=== PATIENT | male | born 1965 | race Caucasian/White ===

== ENCOUNTER 2020-05-10 13:14 | Outpatient (REF) | payer MEDICAID, SELFPAY | END 2020-05-10 13:15 | disposition home or self-care (01) | LOC: HO.LAB 13:14 | PROVIDERS: PCP Internal Medicine; Visit Provider Internal Medicine | DX: Z20.828 Contact with and (suspected) exposure to other viral communicable diseases (principal) | CPT/HCPCS: U0003 ==

== ENCOUNTER 2020-05-16 09:48 | Outpatient (REF) | payer MEDICAID, SELFPAY | END 2020-05-16 09:49 | disposition home or self-care (01) | LOC: HO.LAB 09:48 | PROVIDERS: Visit Provider Internal Medicine | DX: Z20.828 Contact with and (suspected) exposure to other viral communicable diseases (principal) | CPT/HCPCS: C9803; U0003 ==

== ENCOUNTER 2020-05-23 09:03 | Outpatient (REF) | payer MEDICAID, SELFPAY | END 2020-05-23 09:04 | disposition home or self-care (01) | LOC: HO.LAB 09:03 | PROVIDERS: Visit Provider Internal Medicine | DX: Z20.828 Contact with and (suspected) exposure to other viral communicable diseases (principal) | CPT/HCPCS: C9803; U0003 ==

== ENCOUNTER 2020-06-13 15:18 | Outpatient (REF) | payer MEDICAID, SELFPAY | END 2020-06-13 15:19 | disposition home or self-care (01) | LOC: HO.LAB 15:18 | PROVIDERS: Visit Provider Internal Medicine | DX: Z20.828 Contact with and (suspected) exposure to other viral communicable diseases (principal) | CPT/HCPCS: C9803; U0003 ==

== ENCOUNTER 2020-07-16 12:13 | Outpatient (REF) | payer MEDICAID, SELFPAY | END 2020-07-16 12:14 | disposition home or self-care (01) | LOC: HO.LAB 12:13 | PROVIDERS: Visit Provider Internal Medicine | DX: Z20.828 Contact with and (suspected) exposure to other viral communicable diseases (principal) | CPT/HCPCS: 36415; C9803; U0003 ==

== ENCOUNTER 2020-09-24 20:03 | Emergency (ER) | payer MEDICAID, SELFPAY ==
--- NOTE | ~2020-09-24 | XR_ITS ---
EXAMINATION: XR CHEST CLINICAL INFORMATION: Possible aspiration COMPARISON: Chest radiograph 11/28/2012 TECHNIQUE: Frontal view of the chest was obtained. FINDINGS: The lungs are hypoinflated since the prior study. Heart size appears mildly enlarged and currently whereas previously it was normal. There is no evidence of CHF. Multiple old rib fractures on the right are again seen, 6 with fixation. No infiltrates, effusions or lung masses are seen hardware. XR/XR chest 1V IMPRESSION: Hypoinflated lungs with mildly enlarged heart. No evidence of aspiration.
--- NOTE | ~2020-09-24 | CT_ITS ---
EXAMINATION: CT HEAD WITHOUT CONTRAST CLINICAL INFORMATION: Unresponsive COMPARISON: None TECHNIQUE: Contiguous axial imaging was performed from the skull base to vertex without intravenous administration of contrast. Exam is limited due to motion. This CT examination was performed using dose optimization techniques as appropriate, variously including the following: *Automated exposure control *Adjustment of mA and/or kV according to patient size (this includes techniques or standardized protocols for targeted exams where dose is matched to indication/reason for exam; i.e. extremities or head) *Use of iterative reconstruction technique DLP: 873 mGy-cm FINDINGS: There is no evidence of an extra-axial collection. There is no evidence for intra-axial or extra-axial hemorrhage. There is a a round high attenuation extra-axial lesion adjacent to the left frontal lobe near the sylvian fissure. This measures approximately 1.3 x 1.8 cm. This may have small foci of calcification. This probably represents a small meningioma. No mass effect is seen. The ventricles and extra-axial CSF spaces are appropriate. Gaines-white matter differentiation is normal. No intra-axial mass, mass effect or infarct is seen. Review at bone windows is normal. No skull fracture is seen. There are inflammatory changes seen in the right maxillary sinus with a membranous soft tissue thickening. Paranasal sinuses and mastoid air cells and middle ears are otherwise clear. CT/CT head/brain wo con IMPRESSION: No acute findings. 1.3 x 1.8 cm high attenuation extra-axial mass in the left sylvian fissure adjacent to the frontal lobe probably representing a meningioma. Right maxillary sinus disease.
[2020-09-24 20:13] VITALS: BP 125/70; PULSE 85; RESP 16; TEMP 36.7; O2SAT 98; BMI 28.2
--- NOTE | 2020-09-24 20:36 | PC.NURSE ---
pt appears to have vomited. repositioned to sitting rt lateral. capnography applied. pt cleared own airway. aware. monitoring
--- NOTE | 2020-09-24 20:42 | PC.NURSE ---
pt placed on 3 l to support oxygenation. rr 12 at ths time.
[2020-09-24 21:11] VITALS: BP 140/79; PULSE 79; RESP 22; TEMP 36.7; O2SAT 98
--- NOTE | 2020-09-24 21:17 | ED_ITS ---
HPI - Overdose General Chief Complaint: ETOH/Substance Use Stated Complaint: ETOH,OVERDOSE,NARCAN GIVEN Time Seen by Provider: 09/24/20 20:12 Source: EMS Mode of arrival: EMS Limitations: altered mental status History of Present Illness HPI Narrative: Patient comes to the emergency room via EMS. Patient was found at his shelter in his bed unresponsive around 19:00. Members of the shelter reported that the patient was seen normal around 18:00, he was in the shelter's porch, then walked into his room. The staff reports that the patient has history of alcohol abuse and polysubstance abuse as well. When EMS arrived to the shelter, patient was unresponsive, he was given 2 mg of intranasal Narcan with minimal response, 2 additional mg were applied intranasally, patient had moderate response but went back to sleep. Patient response to sternal rub only. On arrival to the emergency room, patient was still very somnolent, sneezing, coughing and vomiting. Related Data Allergies Allergy/AdvReac Type Severity Reaction Status Date / Time bee pollen [BEE STINGS] Allergy Severe SWELLING Unverified 03/28/20 15:04 Review of Systems Review of Systems: Yes Unobtainable due to mental status PMFSH Past Medical History Medical History EtOH dependence Hypertension Substance abuse Social History Social History Advance Directives: No Physical Exam Vital Signs: Vital Signs: Last Vital Signs Temp 98.1 F 09/24/20 21:11 Pulse 79 09/24/20 21:11 Resp 16 09/25/20 00:00 BP 140/79 H 09/24/20 21:11 Pulse Ox 98 09/24/20 21:11 Body Mass Index 28.2 Appearance: Somnolent, arousable to sternal rub, occasionally wakes up to cough and sneeze Eyes: Pupils equal, round and reactive to light. At this time, pupils are no longer pinpoint ENT: Pharynx normal. Runny nose, actively sneezing and coughing Neck: Normal inspection. Neck supple. No lymph nodes noted. No crepitus CVS: Normal heart rate and rhythm. Pulses normal. Normal S1 and S2 Respiratory: Oxygen saturation 95% on room air Abdomen: Soft a no rigidity, no distention Skin: Skin warm and dry. Extremities: No lower extremity edema. Neuro: When awake and moving, cranial nerves 2-12 grossly intact, still remains somnolent Course Course Course Narrative: Patient is awake, alert, oxygen saturation 94% on room air. Patient still has minimal difficulty walking. Patient does not have a sober ride. Patient will remain in the ED until he earl up. Physician observation starts at 23:44 now patient is awake, he states that it was an accidental overdose, reports no SI or HI Patient is now awake, alert, walking steadily. Patient apologized for his earlier behavior. Patient is ready for discharge MDM - Overdose Lab Data Labs: Lab Results 09/24/20 Range/Units 21:56 Urine Opiates Screen Not Detected (Not Detect) Ur Barbiturates Screen Not Detected (Not Detect) Ur Phencyclidine Scrn Not Detected (Not Detect) Ur Amphetamines Screen Not Detected (Not Detect) U Benzodiazepines Scrn Not Detected (Not Detect) Urine Cocaine Screen Not Detected (Not Detect) U Marijuana (THC) Screen Not Detected (Not Detect) Imaging Data CT scan - head: Radiologist's impression: There is no evidence of an extra-axial collection. There is no evidence for intra-axial or extra-axial hemorrhage. There is a a round high attenuation extra-axial lesion adjacent to the left frontal lobe near the sylvian fissure. This measures approximately 1.3 x 1.8 cm. This may have small foci of calcification. This probably represents a small meningioma. No mass effect is seen. The ventricles and extra-axial CSF spaces are appropriate. Gaines-white matter differentiation is normal. No intra-axial mass, mass effect or infarct is seen. Review at bone windows is normal. No skull fracture is seen. There are inflammatory changes seen in the right maxillary sinus with a membranous soft tissue thickening. Paranasal sinuses and mastoid air cells and middle ears are otherwise clear. CT/CT head/brain wo con IMPRESSION: No acute findings. 1.3 x 1.8 cm high attenuation extra-axial mass in the left sylvian fissure adjacent to the frontal lobe probably representing a meningioma. Right maxillary sinus disease. Chest x-ray: Radiologist's impression: The lungs are hypoinflated since the prior study. Heart size appears mildly enlarged and currently whereas previously it was normal. There is no evidence of CHF. Multiple old rib fractures on the right are again seen, 6 with fixation. No infiltrates, effusions or lung masses are seen hardware. XR/XR chest 1V IMPRESSION: Hypoinflated lungs with mildly enlarged heart. No evidence of aspiration. Discharge Plan Discharge Clinical Impression: Overdose Qualifiers: Encounter type: initial encounter Injury intent: accidental or unintentional Qualified Code(s): T50.901A - Poisoning by unspecified drugs, medicaments and biological substances, accidental (unintentional), initial encounter Patient Disposition: Home, Self-Care Instructions: Adult Overdose (ED) Additional Instructions: Please follow-up with your primary care physician tomorrow. If you have any worsening or new symptoms, please return to the emergency room or call 911
[2020-09-24 22:33] LABS: Amphetamine Screen Urine Not Detected (Not Detect); Barbiturates, Urine Not Detected (Not Detect); Benzodiazepines Screen Urine Not Detected (Not Detect); Cannabinoid Screen Urine Not Detected (Not Detect); Cocaine Screen Urine Not Detected (Not Detect); Opiate Screen Urine Not Detected (Not Detect); Phencyclidine Screen Urine Not Detected (Not Detect)
--- NOTE | 2020-09-24 23:25 | PC.NURSE ---
ambulated with somewhat steady gait. pt states gait is normal for baseline. a and o x 4.
--- NOTE | 2020-09-24 23:36 | PC.NURSE ---
pt moved to 18h. awaiting pt to wake up to be d/c.
[2020-09-25] VITALS: RESP 16
[2020-09-25] MEDS: Naloxone HCl Nasal TAKE HOME 4 MG SPRAY NOSTRILALT (03:12)
== END 2020-09-25 03:22 | disposition home or self-care (01) ==
PROVIDERS: Emergency Provider Emergency Medicine
DX: T50.901A Poisoning by unspecified drugs, medicaments and biological substances, accidental (unintentional), initial encounter (principal); X58.XXXA Exposure to other specified factors, initial encounter; F10.10 Alcohol abuse, uncomplicated; Y90.9 Presence of alcohol in blood, level not specified; Z71.51 Drug abuse counseling and surveillance of drug abuser; Z79.899 Other long term (current) drug therapy
CPT/HCPCS: 70450; 71045; 80307; 99283; 99284

== ENCOUNTER 2021-05-27 10:18 | Emergency (ER) | payer MEDICAID, SELFPAY ==
[2021-05-27 11:56] VITALS: BP 121/87; PULSE 99; RESP 18; TEMP 36.6; O2SAT 99; BMI 15.3
--- NOTE | 2021-05-27 12:32 | MHC.RECOVRN ---
T/w met with pt after request for methadone initiation. Pt had been on methadone x 4 months, last dose approx 6 weeks ago, 77 mg at [facility]. During the past 6 weeks, pt has been using heroin, IN, 20 bags daily, as well as cocaine, IN, 1 gram daily. Last use 05/26 at 0400. Pt reports withdrawal symptoms including nausea, hot/cold, body aches, teariness. Pt reports hx alcohol use, not currently and not experiencing alcohol withdrawal. Pt reports hx 2 overdoses, last 5 years ago. Pt will return to [facility] tomorrow morning. Discussed with provider as well as Misty Rojas APRN.
--- NOTE | 2021-05-27 12:35 | ED_ITS ---
HPI - Psych General Chief Complaint: ETOH/Substance Use Stated Complaint: methadone dose Time Seen by Provider: 05/27/21 10:44 Source: patient Mode of arrival: ambulatory Limitations: no limitations History of Present Illness HPI Narrative: 55 y/o male with history of opioid use disorder, alcoholism to the ER from [facility] methadone [facility] for dose of methadone. Nursing at the clinic got a hold of our substance abuse team who recommended a dose of methadone in the emergency room today with plan to continue tomorrow in the clinic. Patient admits to using intranasal heroin upper 20 bags per day for the last 6 weeks, last use 2 days ago. He was able to go to a senior care house last night. He was up all night with headache, nausea, shaking, and feeling ?sick as a dog.? He is depressed and very upset with himself for starting this binge. He is thankful for the help he is receiving at the senior care house. complaint: feels depressed, substance abuse and alcohol abuse Onset (ago): week(s) Duration: constant History of same: Yes Relieving factors: medication Exacerbating factors: none Context: recent drug abuse Associated psychiatric symptoms: depression Associated symptoms: headache, nausea and insomnia Treatments prior to arrival: none Related Data Allergies Allergy/AdvReac Type Severity Reaction Status Date / Time bee pollen [BEE STINGS] Allergy Severe SWELLING Unverified 03/28/20 15:04 Review of Systems Review of Systems: Constitutional: No Fever, No Chills ENT/Mouth: No sore throat, + Rhinorrhea, No Swallowing Difficulty Cardiovascular: No Chest Pain, No SOB Gastrointestinal: + Nausea, No Vomiting, No Diarrhea, No abdominal Pain Musculoskeletal: No joint pain,+ Myalgias Skin: No Skin Lesions, No rash Neuro: No Weakness, No Numbness, No Dizziness, + Headache Psych: + Anxiety/Panic, + Depression Heme/Lymph: No Lymphadenopathy PMFSH Past Medical History Medical History EtOH dependence Hypertension Substance abuse Social History Social History Use of substances other than those prescribed or required for medical reasons: Yes Substance Use Type: Heroin Substance Use Frequency: Daily Last Used Substance: Unknown Advance Directives: No Advance Directives Information Provided: No Physical Exam Vital Signs: Vital Signs: Last Vital Signs Temp 97.8 F 05/27/21 11:56 Pulse 99 05/27/21 11:56 Resp 18 05/27/21 11:56 BP 121/87 05/27/21 11:56 Pulse Ox 99 05/27/21 11:56 Body Mass Index 15.3 Appearance: Alert. Oriented X3. Pacing around the room, tearful. Eyes: Pupils equal, round and reactive to light. ENT: Pharynx normal. Neck: Normal inspection. Neck supple. CVS: Normal heart rate and rhythm. Pulses normal. Respiratory: No respiratory distress. Breath sounds normal. Abdomen: Soft and nontender. +BS x4 Skin: Skin warm and dry. Normal skin color. Normal skin turgor. No rashes. Extremities: No lower extremity edema. No track orozco evident on extremities. Neuro: Oriented X 3. No motor deficit. No sensory deficit. Grossly normal, nonfocal. Course Course Course Narrative: 55-year-old male with history of opioid use disorder and recent heroin binge for the last 6 weeks presents to the ER for a dose of methadone. He has been accepted at the [facility] methadone clinic with plan to start tomorrow. He was referred to the emergency room from there for dose of methadone today. He was previously on 77 mg per day but has not been taking with his recent heroin use. He reports spending $8,000 on drugs in the last 6 weeks. VS are stable on arrival and he does not appear to be in any distress. Spoke with Allegra Sousa RN from [facility] who is aware of the patient. She is recommending 20-30 mg. Patient to be given 30 mg now and to go to the clinic tomorrow. Patient agreeable and appreciative. Stable for discharge home. MDM - Psych Lab Data Labs: Lab Results 05/27/21 Range/Units 12:33 Urine Opiates Screen POSITIVE H (Not Detect) Urine Fentanyl Screen POSITIVE H (Not Detect) Ur Barbiturates Screen Not Detected (Not Detect) Ur Phencyclidine Scrn Not Detected (Not Detect) Ur Amphetamines Screen Not Detected (Not Detect) U Benzodiazepines Scrn Not Detected (Not Detect) Urine Cocaine Screen POSITIVE H (Not Detect) U Marijuana (THC) Screen POSITIVE H (Not Detect) Critical Care Time Critical Care Time Critical Care Time: No Discharge Plan Discharge Clinical Impression: Opioid use disorder Patient Disposition: Home, Self-Care Instructions: Opioid Use Disorder (ED) Additional Instructions: You were given 30 mg of methadone today. Follow-up with the clinic tomorrow. If you develop new or worsening symptoms call 911 or come back to the ER for further evaluation. Interventions: ED Discharge Assessment Last Done: 05/27/21 13:29 Discharge Date/Time: 05/27/21 13:32
--- NOTE | 2021-05-27 12:44 | HE.PHANOTE ---
Patient use to get methadone at [facility] on [facility] in [place]. Last confirmed dose was 75 mg on 03/25/2021. Patient to be restarted on methadone today at 30 mg and will follow up with methadone clinic tomorrow. Maria Teresa Reno, PharmD
[2021-05-27 13:06] LABS: Amphetamine Screen Urine Not Detected (Not Detect); Barbiturates, Urine Not Detected (Not Detect); Benzodiazepines Screen Urine Not Detected (Not Detect); Cannabinoid Screen Urine POSITIVE (Not Detect); Cocaine Screen Urine POSITIVE (Not Detect); Fentanyl, urine POSITIVE (Not Detect); Opiate Screen Urine POSITIVE (Not Detect); Phencyclidine Screen Urine Not Detected (Not Detect)
[2021-05-27] MEDS: methADONE HCl 20 MG/2 ML ORAL.CONC 30 MG PO (13:07)
--- NOTE | 2021-05-27 13:26 | MHC.RECOVSUP ---
? Reason for consult:Recovery Support o Current location:[facility] [place] 03 o Identified substance use concern: Heroine - Withdrawal - Support ? Intervention: o MAT started or to be started o Community resources provided o Harm reduction discussion ? Plan: o Patient to follow up with [facility] after discharge ? Additional information:Patient on MAT, came here to receive methadone. Patient to F/u with his clinic tomorrow. Patient to return to the [facility].
--- NOTE | 2021-05-27 13:26 | PC.NURSE ---
1ST ENCOUNTER WITH PATIENT FOR DC PURPOSES. PT AWAKE, ALERT AND ORIENTED X 3. SKIN WARM AND DRY. RESP UNLABORED. DENIES N/V AT PRESENT TIME C/O FEELING GENERALLY BAD . REQUESTING METHADONE. REPORTS SPENDING OVER $8000 IN DRUGS OVER THE PAST 6 WEEKS. SEEN BY [facility]OV[facility] COACHES AND PLAN IS TO BE SEEN IN THE CLINIC TOMORROW. PT AGREEABLE TO PLAN. EVALUATED BY MARTHA MONTILLA. PT STATES NO QUESTIONS.
== END 2021-05-27 13:32 | disposition home or self-care (01) ==
PROVIDERS: Physician Assistant; Emergency Provider Emergency Medicine Emergency Medical Services; PCP Internal Medicine
DX: F11.10 Opioid abuse, uncomplicated (principal); F14.10 Cocaine abuse, uncomplicated; Z71.51 Drug abuse counseling and surveillance of drug abuser; Z79.899 Other long term (current) drug therapy
CPT/HCPCS: 80307; 99284

== ENCOUNTER 2021-06-10 12:43 | Outpatient (REF) | payer MEDICAID, SELFPAY ==
--- NOTE | ~2021-06-10 | MR_ITS ---
MR LUMBAR SPINE WITHOUT CONTRAST CLINICAL INFORMATION: Right-sided low back pain. COMPARISON: None available. TECHNIQUE: MRI of the lumbar spine was obtained using routine sequences without contrast. FINDINGS: Postoperative changes following posterior instrumented fusion at L3-L4 and interbody cage placement at L4-L5 and L5-S1. Surgical hardware is not diagnostically assessed on MRI. There are T2 signal changes within the paraspinal musculature at and below the postoperative levels, most likely related to denervation. Modic type I endplate signal changes at L1-L2 and L2-L3. Chronic compression deformity at L1. Mild chronic vertebral body height loss at L2. Chronic endplate Schmorl's nodes within the lower thoracic spine at the L1-L2 levels. There are multilevel endplate osteophytes. Conus terminates at the T12-L1 level. There is an exophytic simple left renal cyst for which no further imaging follow-up is warranted. There is bilateral perinephric stranding. Left iliac bone graft donor site. L1-L2: Grade 1 retrolisthesis. A left paracentral disc protrusion compresses the traversing left L2 nerve root within the left subarticular zone and disc osteophyte and facet arthropathy result in moderate bilateral foraminal stenosis with mass effect on the exiting L1 nerve roots bilaterally, greater on the left side. A far left lateral disc osteophyte protrusion at this level compresses the extraforaminal left L1 nerve root as well. L2-L3: Grade 1 retrolisthesis. Diffuse annular disc bulge and severe bilateral facet arthropathy and ligamentum flavum thickening. Disc contacts the traversing L3 nerve roots within the subarticular zones bilaterally and results in mild central canal stenosis. Moderate bilateral foraminal stenosis with mass effect on the exiting L2 nerve roots bilaterally. L3-L4: Postoperative changes following posterior instrumented fusion. Diffuse osteophytic ridging. Severe bilateral facet arthropathy. No central canal stenosis and no foraminal stenosis. L4-L5: Postoperative changes following interbody cage placement. Diffuse osteophytic ridging and facet arthropathy result in moderate bilateral foraminal stenosis with mass effect on the exiting L4 nerve roots bilaterally. L5-S1: Postoperative changes following interbody cage placement. Grade 1 anterolisthesis. Diffuse osteophytic ridging and severe bilateral facet arthropathy. No central canal stenosis and no significant foraminal stenosis. MR/MR lumbar spine wo con IMPRESSION: - At L5-S1, there are postoperative changes following interbody cage placement. - At L4-L5, there are postoperative changes following interbody cage placement. Osteophytic ridging and facet arthropathy result in moderate bilateral foraminal stenosis with mass effect on the exiting L4 nerve roots bilaterally. - At L3-L4, there are postoperative changes following posterior instrumented fusion without central canal stenosis nor significant foraminal stenosis at this level. - At L2-L3, a diffuse annular disc bulge contacts the traversing L3 nerve roots within the subarticular zones bilaterally and multifactorial degenerative changes result in moderate bilateral foraminal stenosis with mass effect on the exiting L2 nerve roots bilaterally. - At L1-L2, a left paracentral disc protrusion compresses the traversing left L2 nerve root within the left subarticular zone and multifactorial degenerative changes result in moderate bilateral foraminal stenosis with mass effect on the exiting L1 nerve roots bilaterally, greater on the left side. A far left lateral disc osteophyte protrusion at this level compresses the extraforaminal left L1 nerve root as well. - Chronic compression deformity at L1.
== END 2021-06-10 12:44 | disposition home or self-care (01) ==
LOC: HO.MRI 12:43
PROVIDERS: Visit Provider Internal Medicine
DX: G89.29 Other chronic pain (principal); M54.50 Low back pain, unspecified
CPT/HCPCS: 72148

== ENCOUNTER 2021-06-23 08:24 | Outpatient (REF) | payer MEDICAID, SELFPAY ==
--- NOTE | ~2021-06-23 | XR_ITS ---
EXAMINATION: XR KNEE, RIGHT XR KNEE STANDING, BILATERAL CLINICAL INFORMATION: Knee pain. COMPARISON: None TECHNIQUE: AP upright both knees. Patellar and lateral view of right knee . FINDINGS: RIGHT KNEE: Postoperative changes with plate and screw fixation noted along the proximal tibia. Hardware intact. Minimal, if any, deformity of the tibia related to the prior fracture. There is chondrocalcinosis. Loose body versus fabella posteriorly. Small marginal osteophytes about the medial and lateral compartments without joint space narrowing indicative of mild arthrosis. Patellofemoral compartment: Small marginal osteophytes indicative of mild arthrosis. Deformity of the proximal fibula compatible with old healed fracture. Arterial calcification. LEFT KNEE: Limited AP upright. There is chondrocalcinosis. There are small marginal osteophytes about the medial and lateral compartments indicative of mild arthrosis. Subchondral cystic change noted in the medial tibial plateau. Possible old partially united fracture of the proximal fibula. XR/XR knee standing BI IMPRESSION: RIGHT KNEE: Postoperative changes related to orthopedic fixation of tibial fracture. Minimal, if any, residual deformity of the tibia. Chondrocalcinosis. Mild arthrosis. Possible loose body versus fabella. Old healed fracture of the proximal fibula. LEFT KNEE LIMITED: Chondrocalcinosis. Osteoarthritis. Possible old partially ununited fracture of the proximal fibula.
--- NOTE | ~2021-06-23 | XR_ITS ---
EXAMINATION: XR KNEE, RIGHT XR KNEE STANDING, BILATERAL CLINICAL INFORMATION: Knee pain. COMPARISON: None TECHNIQUE: AP upright both knees. Patellar and lateral view of right knee . FINDINGS: RIGHT KNEE: Postoperative changes with plate and screw fixation noted along the proximal tibia. Hardware intact. Minimal, if any, deformity of the tibia related to the prior fracture. There is chondrocalcinosis. Loose body versus fabella posteriorly. Small marginal osteophytes about the medial and lateral compartments without joint space narrowing indicative of mild arthrosis. Patellofemoral compartment: Small marginal osteophytes indicative of mild arthrosis. Deformity of the proximal fibula compatible with old healed fracture. Arterial calcification. LEFT KNEE: Limited AP upright. There is chondrocalcinosis. There are small marginal osteophytes about the medial and lateral compartments indicative of mild arthrosis. Subchondral cystic change noted in the medial tibial plateau. Possible old partially united fracture of the proximal fibula. XR/XR knee RT 2V IMPRESSION: RIGHT KNEE: Postoperative changes related to orthopedic fixation of tibial fracture. Minimal, if any, residual deformity of the tibia. Chondrocalcinosis. Mild arthrosis. Possible loose body versus fabella. Old healed fracture of the proximal fibula. LEFT KNEE LIMITED: Chondrocalcinosis. Osteoarthritis. Possible old partially ununited fracture of the proximal fibula.
== END 2021-06-23 08:25 | disposition home or self-care (01) ==
LOC: HO.HOSX 08:24
PROVIDERS: Visit Provider Orthopaedic Surgery
DX: M25.561 Pain in right knee (principal); M17.31 Unilateral post-traumatic osteoarthritis, right knee; M11.261 Other chondrocalcinosis, right knee; F11.20 Opioid dependence, uncomplicated; Z96.641 Presence of right artificial hip joint; Z91.030 Bee allergy status
CPT/HCPCS: 20610; 73560; 73565; 99202; J1100

== ENCOUNTER 2021-07-25 21:41 | Emergency (ER) | payer MEDICAID, SELFPAY ==
[2021-07-25 21:49] VITALS: BP 133/80; PULSE 88; RESP 16; TEMP 36.8; O2SAT 97
[2021-07-25 21:54] VITALS: BP 133/80; PULSE 88; RESP 16; TEMP 36.8; O2SAT 97; BMI 22.3
[2021-07-26] VITALS: RESP 16
--- NOTE | 2021-07-26 02:04 | ED.ALCOHOL ---
HPI - Alcohol General Chief Complaint: ETOH/Substance Use Stated Complaint: etoh Time Seen by Provider: 07/25/21 22:04 Source: patient Mode of arrival: EMS Limitations: no limitations History of Present Illness HPI narrative: 55-year-old male who presents emergency department for evaluation of acute alcohol intoxication. The patient states that he drink more than usual. He states he normally drinks 1 pt of vodka per day but this evening you drink at least 1 court if not more of vodka. He states that he may have fallen down the stairs but is vague in describing this injury. At the time my evaluation, the patient is intoxicated but is able answer questions appropriately, does not appear to be in distress and has no complaints of pain. Patient was able to stand and walk in the emergency depart without any difficulty. Related Data Home Medications Medication Instructions Recorded Confirmed duloxetine 20 mg capsule,delayed 20 mg PO BID 06/23/21 release hydroxyzine HCl 25 mg tablet 25 mg PO BID PRN 06/23/21 lisinopril 10 mg tablet 10 mg PO DAILY 06/23/21 omeprazole 20 mg capsule,delayed 20 mg PO DAILY 06/23/21 release sertraline 50 mg tablet 50 mg PO DAILY 06/23/21 Allergies Allergy/AdvReac Type Severity Reaction Status Date / Time bee pollen [BEE STINGS] Allergy Severe SWELLING Unverified 03/28/20 15:04 Review of Systems Review of Systems: Yes all other systems are reviewed and are negative [facility] Past Medical History [facility] Narrative: Social history: The patient smokes cigarettes 1 pack per day times many years. He states that he drinks alcohol daily and he drinks at least pt of alcohol per day. The patient does use heroin and marijuana. Medical History EtOH dependence Hypertension Substance abuse Surgical History History of total right hip replacement Social History Social History Substance Use Type: Heroin Advance Directives: No Advance Directives Information Provided: No Physical Exam Vital Signs: Vital Signs: Last Vital Signs Temp 98.2 F 07/25/21 21:54 Pulse 88 07/25/21 21:54 Resp 16 07/26/21 00:00 BP 133/80 07/25/21 21:54 Pulse Ox 97 07/25/21 21:54 BMI result Body Mass Index 22.3 Const: General: cooperative and no acute distress Orientation/consciousness: oriented to person and oriented to place Limitations: no limitations HENMT: Other: The patient does appear to be acutely intoxicated but he is cooperative and does not appear to be in distress Head: Yes normal to inspection, Yes normocephalic and Yes atraumatic Ears: external ears normal General nose exam: Normal external nose present Face and sinus: Yes normal facial exam Mouth: Normal oral and palatal mucosa present Throat: Yes posterior oropharynx normal Eyes: General: appearance normal, both eyes and all related structures Pupils: Equal, round and reactive pupils present Neck: Neck: Yes normal visual inspection, Yes no lymphadenopathy, Yes trachea midline and Yes supple Chest: Chest palpation & inspection: normal inspection of the chest and normal palpation of entire chest wall Resp: Effort & Inspection: normal respiratory effort and able to speak in complete sentences Auscultation: clear to auscultation bilaterally Cardio: Rate: regular rate Rhythm: regular rhythm Heart sounds: S1 normal heart sound present, S2 normal heart sound present and no murmurs GI: Inspection: Yes normal to inspection Palpation (GI): Soft to palpation, nontender and no guarding Auscultation: normal bowel sounds : General: Yes no CVA tenderness Back/Spine/Pelvis: Back: no CVA tenderness Skin: General skin exam: no rashes or lesions noted Neuro: General: oriented to person and oriented to place Cranial nerves: Yes CN's II-XII intact bilaterally and Yes Equal, round and reactive pupils present Cognition (Neuro): normal cognition Motor exam (neuro): 5/5 motor strength present throughout Extrem: General: Yes normal to inspection Psych: Appearance: grossly normal Speech and movement: Normal speech and movement present Affect: normal affect Attitude: cooperative Thought process: Normal thought process present Thought content: Normal thought content present Course Course Course Narrative: 55-year-old male who presents emergency department for evaluation of acute alcohol intoxication. The patient's examination is consistent with intoxication with no evidence of trauma pain . Exam was unremarkable. Patient was observed in the emergency department until he was sober. At the time of discharge is able to walk without any difficulty knee answers all questions appropriately. He has no complaints. Patient was discharged home with printed and verbal instructions. He does not want to get into a detox program at this time. Discharge Plan Discharge Clinical Impression: Alcohol intoxication Qualifiers: Complication of substance-induced condition: uncomplicated Qualified Code(s): F10.920 - Alcohol use, unspecified with intoxication, uncomplicated Patient Disposition: Home, Self-Care Instructions: Alcohol Intoxication (ED) Additional Instructions: Follow-up with the PCP for re-evaluation Prescriptions: No Action lisinopril 10 mg tablet 10 mg PO DAILY RF: 0 omeprazole 20 mg capsule,delayed release(DR/EC) 20 mg PO DAILY RF: 0 hydroxyzine HCl 25 mg tablet 25 mg PO BID PRNRF: 0 sertraline 50 mg tablet 50 mg PO DAILY RF: 0 duloxetine 20 mg capsule,delayed release(DR/EC) 20 mg PO BID RF: 0
== END 2021-07-26 02:14 | disposition home or self-care (01) ==
PROVIDERS: Emergency Provider Emergency Medicine Emergency Medical Services
DX: F10.129 Alcohol abuse with intoxication, unspecified (principal); Y90.9 Presence of alcohol in blood, level not specified; Z79.899 Other long term (current) drug therapy; Z71.41 Alcohol abuse counseling and surveillance of alcoholic
CPT/HCPCS: 99284

== ENCOUNTER 2021-08-03 11:43 | Inpatient (IN) | payer MEDICAID, SELFPAY ==
--- NOTE | ~2021-08-03 | XR_ITS ---
EXAMINATION: XR CHEST CLINICAL INFORMATION: Productive cough COMPARISON: 09/24/2020 TECHNIQUE: Frontal view of the chest was obtained. FINDINGS: Lung volumes are improved. No focal consolidation or mass. No pleural effusion or pneumothorax. Calcified aortic arch. Normal heart size. ORIF of multiple rib fractures with plates and screws again noted. XR/XR chest 1V IMPRESSION: No acute pulmonary disease.
--- NOTE | ~2021-08-03 | CT_ITS ---
EXAMINATION: CT CHEST WITHOUT CONTRAST CLINICAL INFORMATION: Cough, hypoxia. COMPARISON: No similar priors. TECHNIQUE: Multidetector volumetric CT imaging of the chest was done. Axial MIP volume rendering provided. Sagittal and coronal reformatted images were obtained. This CT examination was performed using dose optimization techniques as appropriate, variously including the following: *Automated exposure control *Adjustment of mA and/or kV according to patient size (this includes techniques or standardized protocols for targeted exams where dose is matched to indication/reason for exam; i.e. extremities or head) *Use of iterative reconstruction technique DLP: 323 mGy-cm FINDINGS: LUNGS: Peripheral reticulation and subpleural lucencies within a few areas of the anterior surface of the upper lobes. For instance, left upper lobe on coronal image 20 of series 8 and right upper lobe on coronal image 26. Subpleural thickening with hazy attenuation of lung parenchyma adjacent to multiple right-sided rib fractures, likely sequela of trauma. No consolidation. The central airways are patent. Evaluation of pulmonary nodules is limited due to motion. However, accounting for these limitations, no large pulmonary nodules or masses are identified. MEDIASTINUM: The heart is not enlarged. There is trace amount of pericardial fluid/thickening. Extensive coronary calcifications. There is no mediastinal lymphadenopathy. Evaluation of hilar lymph nodes is limited in the absence of intravenous contrast. The esophagus is patulous with air-fluid levels and lower esophageal wall thickening. There is also some ill-defined soft tissue thickening surrounding the lower esophagus. Indeterminate calcifications in the right lobe of the thyroid. Atherosclerotic disease of the thoracic aorta which measures up to 4 cm in maximum diameter. There is ectasia and peripheral calcifications of the ductus diverticulum in the aortic arch. PLEURA: No pleural effusions or pneumothorax. AXILLA: No lymphadenopathy. UPPER ABDOMEN: Water density cyst in the upper pole of the left kidney. OSSEOUS STRUCTURES: Chronic compression deformity at L1. Thoracolumbar spondylosis. Redemonstration of ORIF of multiple right-sided rib fractures with plates and screws. CT/CT chest wo con IMPRESSION: Indeterminate subpleural reticulation and lucencies, possibly a manifestation of emphysema or interstitial lung disease. However, clinical correlation for an acute atypical infectious or inflammatory process should be obtained. Chronic right-sided rib fractures with fixation plates and screws. Patulous esophagus with air-fluid levels and lower esophageal wall thickening, possibly related with reflux disease and dysmotility disorder. There is however some indeterminate soft tissue fullness/stranding around the lower esophagus. If indicated, recommend correlation with an upper endoscopy.
--- NOTE | 2021-08-03 11:49 | ED_ITS ---
HPI - Alcohol General Chief Complaint: ETOH/Substance Use <MARTHA Rabago - Last Filed: 08/03/21 21:32> Stated Complaint: etoh <MARTHA Rabago - Last Filed: 08/03/21 21:32> Time Seen by Provider: 08/03/21 11:49 <MARTHA Rabago - Last Filed: 08/03/21 21:32> Source: EMS <MARTHA Rabago - Last Filed: 08/03/21 21:32> Mode of arrival: EMS <MARTHA Rabago - Last Filed: 08/03/21 21:32> Limitations: no limitations <MARTHA Rabago - Last Filed: 08/03/21 21:32> History of Present Illness HPI narrative: This is a 55-year-old male past medical history significant for opiate use disorder, alcohol abuse, hypertension brought in by ambulance found outside of a liquor store, 911 was called by bystanders for alcohol intoxication. It was reported to us by EMS that patient drink 2 pt of vodka prior to his arrival. Nobody saw the patient fall. He is not answering any questions. He is somnolent. Patient does not appear to be in any acute distress. <MARTHA Rabago - Last Filed: 08/03/21 21:32> MD complaint: alcohol intoxication <MARTHA Rabago - Last Filed: 08/03/21 21:32> Last drink: Hours (ago) and Unknown <MARTHA Rabago - Last Filed: 08/03/21 21:32> Chronic alcohol use: Yes <MARTHA Rabago - Last Filed: 08/03/21 21:32> Previous visits for alcohol intoxication: Yes <MARTHA Rabago - Last Filed: 08/03/21 21:32> Recent trauma: No <MARTHA Rabago - Last Filed: 08/03/21 21:32> Associated symptoms: denies other symptoms <MARTHA Rabago - Last Filed: 08/03/21 21:32> Treatments prior to arrival: none <MARTHA Rabago - Last Filed: 08/03/21 21:32> Related Data Home Medications: Home Medications Medication Instructions Recorded Confirmed duloxetine 20 mg capsule,delayed 20 mg PO BID 06/23/21 release hydroxyzine HCl 25 mg tablet 25 mg PO BID PRN 06/23/21 lisinopril 10 mg tablet 10 mg PO DAILY 06/23/21 omeprazole 20 mg capsule,delayed 20 mg PO DAILY 06/23/21 release sertraline 50 mg tablet 50 mg PO DAILY 06/23/21 Previous Rx's Medication Instructions Recorded doxycycline hyclate 100 mg capsule 100 mg PO BID 10 Days #20 cap 08/03/21 <MARTHA Rabago - Last Filed: 08/03/21 21:32> Allergies/Adverse Reactions: Allergies Allergy/AdvReac Type Severity Reaction Status Date / Time bee pollen [BEE STINGS] Allergy Severe SWELLING Unverified 03/28/20 15:04 <MARTHA Rabago - Last Filed: 08/03/21 21:32> Review of Systems Review of Systems: Unable to obtain due to patient's mental status, he is intoxicated and unable to answer questions appropriately. <MARTHA Rabago - Last Filed: 08/03/21 21:32> Yes Unobtainable due to mental status <MARTHA Rabago - Last Filed: 08/03/21 21:32> [facility] Past Medical History Attestation statement: The following information was validated with the patient. <MARTHA Rabago - Last Filed: 08/03/21 21:32> Source: old records reviewed and nursing notes reviewed <MARTHA Rabago - Last Filed: 08/03/21 21:32> Medical History: Medical History EtOH dependence Hypertension Substance abuse <MARTHA Rabago - Last Filed: 08/03/21 21:32> Surgical History: Surgical History History of total right hip replacement <MARTHA Rabago - Last Filed: 08/03/21 21:32> Social History Social History: Social History Substance Use Type: Heroin Advance Directives: No Advance Directives Information Provided: Yes <MARTHA Rabago - Last Filed: 08/03/21 21:32> Physical Exam Vital Signs: Vital Signs: Last Vital Signs Temp 100.2 F 08/03/21 22:14 Pulse 82 08/03/21 16:00 Resp 16 08/03/21 16:00 BP 175/92 H 08/03/21 16:00 Pulse Ox 97 08/03/21 16:00 BMI result Body Mass Index 23.0 Vital signs stable. However, patient noted to be slightly hypoxic. <MARTHA Rabago - Last Filed: 08/03/21 21:32> Vital Signs: Last Vital Signs Temp 100.2 F 08/03/21 22:14 Pulse 82 08/03/21 16:00 Resp 16 08/03/21 16:00 BP 175/92 H 08/03/21 16:00 Pulse Ox 97 08/03/21 16:00 BMI result Body Mass Index 23.0 <Ivan Silverio MD - Last Filed: 08/03/21 23:05> Appearance: Patient is responsive to sternal rub. No acute distress.? Regular respiratory rate, no accessory muscle use, does not appear to be in acute distress. No evidence signs of trauma or gross distracting injuries. Head: Normocephalic, atraumatic, no step-offs or deformities Eyes: Pupils equal, round and reactive to light.?+ bilateral pupils appear to be dilated. ENT: Pharynx normal.? Neck: Normal inspection.? Neck supple.? CVS: Normal heart rate and rhythm.? Pulses normal.? Respiratory: No respiratory distress.? + crackles to b/l lower lobes Abdomen: Soft and nontender.? Skin: Skin warm and dry.? Normal skin color.? Normal skin turgor.? Extremities: No lower extremity edema.? No calf ttp. 5/5 strength to bilateral upper and lower extremities Back: No midline tenderness, no C-spine tenderness, full range of motion, no CVA tenderness bilaterally Neuro: Patient is responsive to a sternal rub. Unable to complete a full neurological examination due to patient's intoxication. He is not following commands, unable to answer questions appropriately. <MARTHA Rabago - Last Filed: 08/03/21 21:32> Course Reevaluation(s) Reevaluation #1: Patient is not cooperative, he is barely arousable to a sternal rub. Not responding to commands. Narcan was given. Prior to him getting Narcan patient was coughing up thick phlegm, and choking on it. Likely that this patient has an aspiration pneumonia. Will give prophylactic antibiotics. Patient is also noted to be slightly hypoxic 92% on room air, I have placed patient on 2 L via nasal cannula. At this time infection suspected. Blood cultures and a lactic will be ordered. With antibiotics. <MARTHA Rabago - Last Filed: 08/03/21:32> Time: 13:15 <MARTHA Rabago - Last Filed: 08/03/21 21:32> Reevaluation #2: Ethanol 389. GABRIEL pending <MARTHA Rabago - Last Filed: 08/03/21:32> Time: 14:10 <MARTHA Rabago - Last Filed: 08/03/21 21:32> Reevaluation #3: GABRIEL + opiates, fentanyl, cocaine and marijuana. At this time repeat CBC and Chem 7 ordered. Waiting for repeat lactic. Sign out will be given to . If labs improved patient will likely be discharged home. <MRATHA Rabago - Last Filed: 08/03/21 21:32> Time: 21:29 <MARTHA Rabago - Last Filed: 08/03/21 21:32> MDM - Alcohol MDM Narrative Medical decision making narrative: 1155 55 yo m BIBA for complaints of acute alcohol intoxication. Upon arrival patient is too intoxicated to answer questions, he is only arousable to sternal rub. Upon my examination I noted patient to have a wet productive cough. Patient is somnolent upon my exam. However he is not in any acute distress. Upon physical examination patient's vitals are stable, bilateral pupils appear to be dilated. Regular rate and rhythm. Crackles bilateral lower lobes. Unable to do a full neuro exam as patient is not following commands, and he is somnolent secondary to acute alcohol intoxication. No distracting injuries are signs of acute trauma. This time is to obtain a chest x-ray, CBC, CMP, COVID, drug screen, ethanol. I will rule out other etiologies such as pneumonia, opiate abuse, infection <MARTHA Lomeli - Last Filed: 08/03/21 21:32> 1155 55 yo m BIBA for complaints of acute alcohol intoxication. Upon arrival patient is too intoxicated to answer questions, he is only arousable to sternal rub. Upon my examination I noted patient to have a wet productive cough. Patient is somnolent upon my exam. However he is not in any acute distress. Upon physical examination patient's vitals are stable, bilateral pupils appear to be dilated. Regular rate and rhythm. Crackles bilateral lower lobes. Unable to do a full neuro exam as patient is not following commands, and he is somnolent secondary to acute alcohol intoxication. No distracting injuries are signs of acute trauma. This time is to obtain a chest x-ray, CBC, CMP, COVID, drug screen, ethanol. I will rule out other etiologies such as pneumonia, opiate abuse, infection 22:15 patient seen and evaluated alcoholic using drugs no IVDA homeless for last 2 weeks came intoxicated coughing saying that he is feeling chills rectal temperature 100.2 degrees elevated lactic acid secondary to alcohol use with possible infection patient already received IV fluids will give another L of IV fluid already given Rocephin IV will give vancomycin for MRSA coverage patient feels suicidal and depressed as he is homeless for last 2 weeks will admit patient for atypical pneumonia and alcohol abuse , will give IV thiamine <Ivan Silverio MD - Last Filed: 08/03/21 23:05> Medical Records Attestation: I reviewed the patient's medical records. <MARTHA Rabago - Last Filed: 08/03/21 21:32> Lab Data Attestation: I reviewed the patient's lab results. <MARTHA Rabago - Last Filed: 08/03/21 21:32> Result diagrams: : 08/03/21 20:47 08/03/21 20:47 <MARTHA Rabago - Last Filed: 08/03/21 21:32> Labs: Lab Results 08/03/21 08/03/21 08/03/21 Range/Units 13:16 13:33 13:33 WBC 16.9 H (4.8-10.8) X10*3/uL RBC 4.55 L (4.60-5.80) X10*6/uL Hgb 14.1 (14.0-18.0) g/dl Hct 40.7 L (42.0-52.0) % MCV 89.5 (80.0-98.0) fL MCH 31.0 (27.0-33.0) pg MCHC 34.6 (31.0-36.0) g/dl RDW 14.7 (11.0-16.0) % Plt Count 354 (160-400) X10*3/uL MPV 8.8 L (9.4-12.4) fL Immature Gran % (Auto) 2.1 H (0.0-0.4) % Neut % (Auto) 65.6 (45-73) % Lymph % (Auto) 23.7 (20-40) % Bonner % (Auto) 7.4 (2-11) % Eos % (Auto) 0.4 (0-4) % Baso % (Auto) 0.8 (0-2) % Lymph # (Auto) 4.0 (1.2-4.9) X10*3/uL Bonner # (Auto) 1.3 H (0.1-1.2) X10*3/uL Eos # (Auto) 0.1 (0.0-0.4) X10*3/uL Baso # (Auto) 0.1 (0.0-0.2) X10*3/uL Abs Immat Gran (auto) 0.35 H (0.00-0.03) X10*3/uL Absolute Neuts (auto) 11.1 H (2.0-8.3) x10*3/uL Absolute Nucleated RBC 0.000 (0.0-0.012) X10*3/uL Nucleated RBC % (auto) 0.0 (0.0-0.2) /100WBC VBG pH (7.32-7.43) VBG pCO2 mmHg VBG pO2 mmHg VBG HCO3 (22-26) mmol/L VBG O2 Saturation % VBG Base Excess mmol/L Sodium (135-145) mmol/L Potassium (3.3-5.1) mmol/L Chloride (96-108) mmol/L Carbon Dioxide (22-29) mmol/L Anion Gap (12-20) BUN (9-16) mg/dL Creatinine (0.5-1.4) mg/dL Estim Creat Clear Calc Estimated GFR Random Glucose (60-115) mg/dL Lactic Acid (0.5-2.0) mmol/L Lactic Acid F/U @ 2Hr (0.5-2.0) mmol/L Calcium (8.4-10.2) mg/dL Magnesium (1.6-2.6) mg/dL Total Bilirubin (0.0-1.0) mg/dL AST (5-37) U/L ALT (0-40) U/L Alkaline Phosphatase (39-117) U/L Total Creatine Kinase (38-174) U/L Total Protein (6.5-8.0) g/dL Albumin (3.5-5.0) g/dL Urine Color Urine Appearance Urine pH (5.0-8.0) Ur Specific [place] (1.005-1.025) Urine Protein (NEG-TRACE) MG/DL Urine Glucose (UA) (NEG) MG/DL Urine Ketones (NEG) MG/DL Urine Blood (NEG) Urine Nitrite (NEG) Ur Leukocyte Esterase (NEG) Urine RBC (0) /HPF Urine WBC (0-4) /HPF Ur Squamous Epith Cells /LPF Urine Bacteria /LPF Urine Opiates Screen (Not Detect) Urine Fentanyl Screen (Not Detect) Ur Barbiturates Screen (Not Detect) Ur Phencyclidine Scrn (Not Detect) Ur Amphetamines Screen (Not Detect) U Benzodiazepines Scrn (Not Detect) Urine Cocaine Screen (Not Detect) U Marijuana (THC) Screen (Not Detect) Ethyl Alcohol 389 H* mg/dL COVID-19 (CRUZ) Negative (Negative) COVID-19 Clin Com See Note 08/03/21 08/03/21 08/03/21 Range/Units 13:33 15:03 15:42 WBC (4.8-10.8) X10*3/uL RBC (4.60-5.80) X10*6/uL Hgb (14.0-18.0) g/dl Hct (42.0-52.0) % MCV (80.0-98.0) fL MCH (27.0-33.0) pg MCHC (31.0-36.0) g/dl RDW (11.0-16.0) % Plt Count (160-400) X10*3/uL MPV (9.4-12.4) fL Immature Gran % (Auto) (0.0-0.4) % Neut % (Auto) (45-73) % Lymph % (Auto) (20-40) % Bonner % (Auto) (2-11) % Eos % (Auto) (0-4) % Baso % (Auto) (0-2) % Lymph # (Auto) (1.2-4.9) X10*3/uL Bonner # (Auto) (0.1-1.2) X10*3/uL Eos # (Auto) (0.0-0.4) X10*3/uL Baso # (Auto) (0.0-0.2) X10*3/uL Abs Immat Gran (auto) (0.00-0.03) X10*3/uL Absolute Neuts (auto) (2.0-8.3) x10*3/uL Absolute Nucleated RBC (0.0-0.012) X10*3/uL Nucleated RBC % (auto) (0.0-0.2) /100WBC VBG pH 7.44 H (7.32-7.43) VBG pCO2 30 mmHg VBG pO2 74 mmHg VBG HCO3 21 L (22-26) mmol/L VBG O2 Saturation 93.0 % VBG Base Excess -1.8 mmol/L Sodium 137 (135-145) mmol/L Potassium 4.5 (3.3-5.1) mmol/L Chloride 99 (96-108) mmol/L Carbon Dioxide 21 L (22-29) mmol/L Anion Gap 22 H (12-20) BUN 13 (9-16) mg/dL Creatinine 0.77 (0.5-1.4) mg/dL Estim Creat Clear Calc 113.3 Estimated GFR > 60 Random Glucose 85 (60-115) mg/dL Lactic Acid 3.4 H* (0.5-2.0) mmol/L Lactic Acid F/U @ 2Hr (0.5-2.0) mmol/L Calcium 9.0 (8.4-10.2) mg/dL Magnesium 2.2 (1.6-2.6) mg/dL Total Bilirubin 0.5 (0.0-1.0) mg/dL AST 22 (5-37) U/L ALT 8 (0-40) U/L Alkaline Phosphatase 78 (39-117) U/L Total Creatine Kinase 58 (38-174) U/L Total Protein 7.6 (6.5-8.0) g/dL Albumin 4.2 (3.5-5.0) g/dL Urine Color Urine Appearance Urine pH (5.0-8.0) Ur Specific [place] (1.005-1.025) Urine Protein (NEG-TRACE) MG/DL Urine Glucose (UA) (NEG) MG/DL Urine Ketones (NEG) MG/DL Urine Blood (NEG) Urine Nitrite (NEG) Ur Leukocyte Esterase (NEG) Urine RBC (0) /HPF Urine WBC (0-4) /HPF Ur Squamous Epith Cells /LPF Urine Bacteria /LPF Urine Opiates Screen (Not Detect) Urine Fentanyl Screen (Not Detect) Ur Barbiturates Screen (Not Detect) Ur Phencyclidine Scrn (Not Detect) Ur Amphetamines Screen (Not Detect) U Benzodiazepines Scrn (Not Detect) Urine Cocaine Screen (Not Detect) U Marijuana (THC) Screen (Not Detect) Ethyl Alcohol mg/dL COVID-19 (CRUZ) (Negative) COVID-19 Clin Com 08/03/21 08/03/21 08/03/21 Range/Units 16:48 16:48 20:47 WBC 14.0 H (4.8-10.8) X10*3/uL RBC 3.90 L (4.60-5.80) X10*6/uL Hgb 12.2 L (14.0-18.0) g/dl Hct 35.2 L (42.0-52.0) % MCV 90.3 (80.0-98.0) fL MCH 31.3 (27.0-33.0) pg MCHC 34.7 (31.0-36.0) g/dl RDW 14.8 (11.0-16.0) % Plt Count 322 (160-400) X10*3/uL MPV 8.9 L (9.4-12.4) fL Immature Gran % (Auto) 1.4 H (0.0-0.4) % Neut % (Auto) 69.3 (45-73) % Lymph % (Auto) 20.2 (20-40) % Bonner % (Auto) 8.4 (2-11) % Eos % (Auto) 0.2 (0-4) % Baso % (Auto) 0.5 (0-2) % Lymph # (Auto) 2.8 (1.2-4.9) X10*3/uL Bonner # (Auto) 1.2 (0.1-1.2) X10*3/uL Eos # (Auto) 0.0 (0.0-0.4) X10*3/uL Baso # (Auto) 0.1 (0.0-0.2) X10*3/uL Abs Immat Gran (auto) 0.20 H (0.00-0.03) X10*3/uL Absolute Neuts (auto) 9.7 H (2.0-8.3) x10*3/uL Absolute Nucleated RBC 0.000 (0.0-0.012) X10*3/uL Nucleated RBC % (auto) 0.0 (0.0-0.2) /100WBC VBG pH (7.32-7.43) VBG pCO2 mmHg VBG pO2 mmHg VBG HCO3 (22-26) mmol/L VBG O2 Saturation % VBG Base Excess mmol/L Sodium (135-145) mmol/L Potassium (3.3-5.1) mmol/L Chloride (96-108) mmol/L Carbon Dioxide (22-29) mmol/L Anion Gap (12-20) BUN (9-16) mg/dL Creatinine (0.5-1.4) mg/dL Estim Creat Clear Calc Estimated GFR Random Glucose (60-115) mg/dL Lactic Acid (0.5-2.0) mmol/L Lactic Acid F/U @ 2Hr (0.5-2.0) mmol/L Calcium (8.4-10.2) mg/dL Magnesium (1.6-2.6) mg/dL Total Bilirubin (0.0-1.0) mg/dL AST (5-37) U/L ALT (0-40) U/L Alkaline Phosphatase (39-117) U/L Total Creatine Kinase (38-174) U/L Total Protein (6.5-8.0) g/dL Albumin (3.5-5.0) g/dL Urine Color YELLOW Urine Appearance CLEAR Urine pH 5.5 (5.0-8.0) Ur Specific [place] >= 1.030 H (1.005-1.025) Urine Protein TRACE (NEG-TRACE) MG/DL Urine Glucose (UA) NEG (NEG) MG/DL Urine Ketones NEG (NEG) MG/DL Urine Blood TRACE (NEG) Urine Nitrite NEG (NEG) Ur Leukocyte Esterase NEG (NEG) Urine RBC 0-2 (0) /HPF Urine WBC 0 (0-4) /HPF Ur Squamous Epith Cells 1+ /LPF Urine Bacteria 1+ /LPF Urine Opiates Screen POSITIVE H (Not Detect) Urine Fentanyl Screen POSITIVE H (Not Detect) Ur Barbiturates Screen Not Detected (Not Detect) Ur Phencyclidine Scrn Not Detected (Not Detect) Ur Amphetamines Screen Not Detected (Not Detect) U Benzodiazepines Scrn Not Detected (Not Detect) Urine Cocaine Screen POSITIVE H (Not Detect) U Marijuana (THC) Screen POSITIVE H (Not Detect) Ethyl Alcohol mg/dL COVID-19 (CRUZ) (Negative) COVID-19 Clin Com 08/03/21 08/03/21 Range/Units 20:47 21:44 WBC (4.8-10.8) X10*3/uL RBC (4.60-5.80) X10*6/uL Hgb (14.0-18.0) g/dl Hct (42.0-52.0) % MCV (80.0-98.0) fL MCH (27.0-33.0) pg MCHC (31.0-36.0) g/dl RDW (11.0-16.0) % Plt Count (160-400) X10*3/uL MPV (9.4-12.4) fL Immature Gran % (Auto) (0.0-0.4) % Neut % (Auto) (45-73) % Lymph % (Auto) (20-40) % Bonner % (Auto) (2-11) % Eos % (Auto) (0-4) % Baso % (Auto) (0-2) % Lymph # (Auto) (1.2-4.9) X10*3/uL Bonner # (Auto) (0.1-1.2) X10*3/uL Eos # (Auto) (0.0-0.4) X10*3/uL Baso # (Auto) (0.0-0.2) X10*3/uL Abs Immat Gran (auto) (0.00-0.03) X10*3/uL Absolute Neuts (auto) (2.0-8.3) x10*3/uL Absolute Nucleated RBC (0.0-0.012) X10*3/uL Nucleated RBC % (auto) (0.0-0.2) /100WBC VBG pH (7.32-7.43) VBG pCO2 mmHg VBG pO2 mmHg VBG HCO3 (22-26) mmol/L VBG O2 Saturation % VBG Base Excess mmol/L Sodium 140 (135-145) mmol/L Potassium 3.3 D (3.3-5.1) mmol/L Chloride 104 (96-108) mmol/L Carbon Dioxide 22 (22-29) mmol/L Anion Gap 17 (12-20) BUN 11 (9-16) mg/dL Creatinine 0.77 (0.5-1.4) mg/dL Estim Creat Clear Calc 113.3 Estimated GFR > 60 Random Glucose 155 H D (60-115) mg/dL Lactic Acid (0.5-2.0) mmol/L Lactic Acid F/U @ 2Hr 3.6 H* (0.5-2.0) mmol/L Calcium 8.1 L D (8.4-10.2) mg/dL Magnesium (1.6-2.6) mg/dL Total Bilirubin 0.5 (0.0-1.0) mg/dL AST 13 D (5-37) U/L ALT 6 (0-40) U/L Alkaline Phosphatase 66 (39-117) U/L Total Creatine Kinase (38-174) U/L Total Protein 6.0 L D (6.5-8.0) g/dL Albumin 3.6 (3.5-5.0) g/dL Urine Color Urine Appearance Urine pH (5.0-8.0) Ur Specific [place] (1.005-1.025) Urine Protein (NEG-TRACE) MG/DL Urine Glucose (UA) (NEG) MG/DL Urine Ketones (NEG) MG/DL Urine Blood (NEG) Urine Nitrite (NEG) Ur Leukocyte Esterase (NEG) Urine RBC (0) /HPF Urine WBC (0-4) /HPF Ur Squamous Epith Cells /LPF Urine Bacteria /LPF Urine Opiates Screen (Not Detect) Urine Fentanyl Screen (Not Detect) Ur Barbiturates Screen (Not Detect) Ur Phencyclidine Scrn (Not Detect) Ur Amphetamines Screen (Not Detect) U Benzodiazepines Scrn (Not Detect) Urine Cocaine Screen (Not Detect) U Marijuana (THC) Screen (Not Detect) Ethyl Alcohol mg/dL COVID-19 (CRUZ) (Negative) COVID-19 Clin Com <MARTHA Rabago - Last Filed: 08/03/21 21:32> Lab Results 08/03/21 08/03/21 08/03/21 Range/Units 13:16 13:33 13:33 WBC 16.9 H (4.8-10.8) X10*3/uL RBC 4.55 L (4.60-5.80) X10*6/uL Hgb 14.1 (14.0-18.0) g/dl Hct 40.7 L (42.0-52.0) % MCV 89.5 (80.0-98.0) fL MCH 31.0 (27.0-33.0) pg MCHC 34.6 (31.0-36.0) g/dl RDW 14.7 (11.0-16.0) % Plt Count 354 (160-400) X10*3/uL MPV 8.8 L (9.4-12.4) fL Immature Gran % (Auto) 2.1 H (0.0-0.4) % Neut % (Auto) 65.6 (45-73) % Lymph % (Auto) 23.7 (20-40) % Bonner % (Auto) 7.4 (2-11) % Eos % (Auto) 0.4 (0-4) % Baso % (Auto) 0.8 (0-2) % Lymph # (Auto) 4.0 (1.2-4.9) X10*3/uL Bonner # (Auto) 1.3 H (0.1-1.2) X10*3/uL Eos # (Auto) 0.1 (0.0-0.4) X10*3/uL Baso # (Auto) 0.1 (0.0-0.2) X10*3/uL Abs Immat Gran (auto) 0.35 H (0.00-0.03) X10*3/uL Absolute Neuts (auto) 11.1 H (2.0-8.3) x10*3/uL Absolute Nucleated RBC 0.000 (0.0-0.012) X10*3/uL Nucleated RBC % (auto) 0.0 (0.0-0.2) /100WBC VBG pH (7.32-7.43) VBG pCO2 mmHg VBG pO2 mmHg VBG HCO3 (22-26) mmol/L VBG O2 Saturation % VBG Base Excess mmol/L Sodium (135-145) mmol/L Potassium (3.3-5.1) mmol/L Chloride (96-108) mmol/L Carbon Dioxide (22-29) mmol/L Anion Gap (12-20) BUN (9-16) mg/dL Creatinine (0.5-1.4) mg/dL Estim Creat Clear Calc Estimated GFR Random Glucose (60-115) mg/dL Lactic Acid (0.5-2.0) mmol/L Lactic Acid F/U @ 2Hr (0.5-2.0) mmol/L Calcium (8.4-10.2) mg/dL Magnesium (1.6-2.6) mg/dL Total Bilirubin (0.0-1.0) mg/dL AST (5-37) U/L ALT (0-40) U/L Alkaline Phosphatase (39-117) U/L Total Creatine Kinase (38-174) U/L Total Protein (6.5-8.0) g/dL Albumin (3.5-5.0) g/dL Urine Color Urine Appearance Urine pH (5.0-8.0) Ur Specific [place] (1.005-1.025) Urine Protein (NEG-TRACE) MG/DL Urine Glucose (UA) (NEG) MG/DL Urine Ketones (NEG) MG/DL Urine Blood (NEG) Urine Nitrite (NEG) Ur Leukocyte Esterase (NEG) Urine RBC (0) /HPF Urine WBC (0-4) /HPF Ur Squamous Epith Cells /LPF Urine Bacteria /LPF Urine Opiates Screen (Not Detect) Urine Fentanyl Screen (Not Detect) Ur Barbiturates Screen (Not Detect) Ur Phencyclidine Scrn (Not Detect) Ur Amphetamines Screen (Not Detect) U Benzodiazepines Scrn (Not Detect) Urine Cocaine Screen (Not Detect) U Marijuana (THC) Screen (Not Detect) Ethyl Alcohol 389 H* mg/dL COVID-19 (CRUZ) Negative (Negative) COVID-19 Clin Com See Note 08/03/21 08/03/21 08/03/21 Range/Units 13:33 15:03 15:42 WBC (4.8-10.8) X10*3/uL RBC (4.60-5.80) X10*6/uL Hgb (14.0-18.0) g/dl Hct (42.0-52.0) % MCV (80.0-98.0) fL MCH (27.0-33.0) pg MCHC (31.0-36.0) g/dl RDW (11.0-16.0) % Plt Count (160-400) X10*3/uL MPV (9.4-12.4) fL Immature Gran % (Auto) (0.0-0.4) % Neut % (Auto) (45-73) % Lymph % (Auto) (20-40) % Bonner % (Auto) (2-11) % Eos % (Auto) (0-4) % Baso % (Auto) (0-2) % Lymph # (Auto) (1.2-4.9) X10*3/uL Bonner # (Auto) (0.1-1.2) X10*3/uL Eos # (Auto) (0.0-0.4) X10*3/uL Baso # (Auto) (0.0-0.2) X10*3/uL Abs Immat Gran (auto) (0.00-0.03) X10*3/uL Absolute Neuts (auto) (2.0-8.3) x10*3/uL Absolute Nucleated RBC (0.0-0.012) X10*3/uL Nucleated RBC % (auto) (0.0-0.2) /100WBC VBG pH 7.44 H (7.32-7.43) VBG pCO2 30 mmHg VBG pO2 74 mmHg VBG HCO3 21 L (22-26) mmol/L VBG O2 Saturation 93.0 % VBG Base Excess -1.8 mmol/L Sodium 137 (135-145) mmol/L Potassium 4.5 (3.3-5.1) mmol/L Chloride 99 (96-108) mmol/L Carbon Dioxide 21 L (22-29) mmol/L Anion Gap 22 H (12-20) BUN 13 (9-16) mg/dL Creatinine 0.77 (0.5-1.4) mg/dL Estim Creat Clear Calc 113.3 Estimated GFR > 60 Random Glucose 85 (60-115) mg/dL Lactic Acid 3.4 H* (0.5-2.0) mmol/L Lactic Acid F/U @ 2Hr (0.5-2.0) mmol/L Calcium 9.0 (8.4-10.2) mg/dL Magnesium 2.2 (1.6-2.6) mg/dL Total Bilirubin 0.5 (0.0-1.0) mg/dL AST 22 (5-37) U/L ALT 8 (0-40) U/L Alkaline Phosphatase 78 (39-117) U/L Total Creatine Kinase 58 (38-174) U/L Total Protein 7.6 (6.5-8.0) g/dL Albumin 4.2 (3.5-5.0) g/dL Urine Color Urine Appearance Urine pH (5.0-8.0) Ur Specific [place] (1.005-1.025) Urine Protein (NEG-TRACE) MG/DL Urine Glucose (UA) (NEG) MG/DL Urine Ketones (NEG) MG/DL Urine Blood (NEG) Urine Nitrite (NEG) Ur Leukocyte Esterase (NEG) Urine RBC (0) /HPF Urine WBC (0-4) /HPF Ur Squamous Epith Cells /LPF Urine Bacteria /LPF Urine Opiates Screen (Not Detect) Urine Fentanyl Screen (Not Detect) Ur Barbiturates Screen (Not Detect) Ur Phencyclidine Scrn (Not Detect) Ur Amphetamines Screen (Not Detect) U Benzodiazepines Scrn (Not Detect) Urine Cocaine Screen (Not Detect) U Marijuana (THC) Screen (Not Detect) Ethyl Alcohol mg/dL COVID-19 ([facility]) (Negative) COVID-19 Clin Com 08/03/21 08/03/21 08/03/21 Range/Units 16:48 16:48 20:47 WBC 14.0 H (4.8-10.8) X10*3/uL RBC 3.90 L (4.60-5.80) X10*6/uL Hgb 12.2 L (14.0-18.0) g/dl Hct 35.2 L (42.0-52.0) % MCV 90.3 (80.0-98.0) fL MCH 31.3 (27.0-33.0) pg MCHC 34.7 (31.0-36.0) g/dl RDW 14.8 (11.0-16.0) % Plt Count 322 (160-400) X10*3/uL MPV 8.9 L (9.4-12.4) fL Immature Gran % (Auto) 1.4 H (0.0-0.4) % Neut % (Auto) 69.3 (45-73) % Lymph % (Auto) 20.2 (20-40) % Bonner % (Auto) 8.4 (2-11) % Eos % (Auto) 0.2 (0-4) % Baso % (Auto) 0.5 (0-2) % Lymph # (Auto) 2.8 (1.2-4.9) X10*3/uL Bonner # (Auto) 1.2 (0.1-1.2) X10*3/uL Eos # (Auto) 0.0 (0.0-0.4) X10*3/uL Baso # (Auto) 0.1 (0.0-0.2) X10*3/uL Abs Immat Gran (auto) 0.20 H (0.00-0.03) X10*3/uL Absolute Neuts (auto) 9.7 H (2.0-8.3) x10*3/uL Absolute Nucleated RBC 0.000 (0.0-0.012) X10*3/uL Nucleated RBC % (auto) 0.0 (0.0-0.2) /100WBC VBG pH (7.32-7.43) VBG pCO2 mmHg VBG pO2 mmHg VBG HCO3 (22-26) mmol/L VBG O2 Saturation % VBG Base Excess mmol/L Sodium (135-145) mmol/L Potassium (3.3-5.1) mmol/L Chloride (96-108) mmol/L Carbon Dioxide (22-29) mmol/L Anion Gap (12-20) BUN (9-16) mg/dL Creatinine (0.5-1.4) mg/dL Estim Creat Clear Calc Estimated GFR Random Glucose (60-115) mg/dL Lactic Acid (0.5-2.0) mmol/L Lactic Acid F/U @ 2Hr (0.5-2.0) mmol/L Calcium (8.4-10.2) mg/dL Magnesium (1.6-2.6) mg/dL Total Bilirubin (0.0-1.0) mg/dL AST (5-37) U/L ALT (0-40) U/L Alkaline Phosphatase (39-117) U/L Total Creatine Kinase (38-174) U/L Total Protein (6.5-8.0) g/dL Albumin (3.5-5.0) g/dL Urine Color YELLOW Urine Appearance CLEAR Urine pH 5.5 (5.0-8.0) Ur Specific [place] >= 1.030 H (1.005-1.025) Urine Protein TRACE (NEG-TRACE) MG/DL Urine Glucose (UA) NEG (NEG) MG/DL Urine Ketones NEG (NEG) MG/DL Urine Blood TRACE (NEG) Urine Nitrite NEG (NEG) Ur Leukocyte Esterase NEG (NEG) Urine RBC 0-2 (0) /HPF Urine WBC 0 (0-4) /HPF Ur Squamous Epith Cells 1+ /LPF Urine Bacteria 1+ /LPF Urine Opiates Screen POSITIVE H (Not Detect) Urine Fentanyl Screen POSITIVE H (Not Detect) Ur Barbiturates Screen Not Detected (Not Detect) Ur Phencyclidine Scrn Not Detected (Not Detect) Ur Amphetamines Screen Not Detected (Not Detect) U Benzodiazepines Scrn Not Detected (Not Detect) Urine Cocaine Screen POSITIVE H (Not Detect) U Marijuana (THC) Screen POSITIVE H (Not Detect) Ethyl Alcohol mg/dL COVID-19 (CRUZ) (Negative) COVID-19 Clin Com 08/03/21 08/03/21 Range/Units 20:47 21:44 WBC (4.8-10.8) X10*3/uL RBC (4.60-5.80) X10*6/uL Hgb (14.0-18.0) g/dl Hct (42.0-52.0) % MCV (80.0-98.0) fL MCH (27.0-33.0) pg MCHC (31.0-36.0) g/dl RDW (11.0-16.0) % Plt Count (160-400) X10*3/uL MPV (9.4-12.4) fL Immature Gran % (Auto) (0.0-0.4) % Neut % (Auto) (45-73) % Lymph % (Auto) (20-40) % [place] % (Auto) (2-11) % Eos % (Auto) (0-4) % Baso % (Auto) (0-2) % Lymph # (Auto) (1.2-4.9) X10*3/uL [place] # (Auto) (0.1-1.2) X10*3/uL Eos # (Auto) (0.0-0.4) X10*3/uL Baso # (Auto) (0.0-0.2) X10*3/uL Abs Immat Gran (auto) (0.00-0.03) X10*3/uL Absolute Neuts (auto) (2.0-8.3) x10*3/uL Absolute Nucleated RBC (0.0-0.012) X10*3/uL Nucleated RBC % (auto) (0.0-0.2) /100WBC VBG pH (7.32-7.43) VBG pCO2 mmHg VBG pO2 mmHg VBG HCO3 (22-26) mmol/L VBG O2 Saturation % VBG Base Excess mmol/L Sodium 140 (135-145) mmol/L Potassium 3.3 D (3.3-5.1) mmol/L Chloride 104 (96-108) mmol/L Carbon Dioxide 22 (22-29) mmol/L Anion Gap 17 (12-20) BUN 11 (9-16) mg/dL Creatinine 0.77 (0.5-1.4) mg/dL Estim Creat Clear Calc 113.3 Estimated GFR > 60 Random Glucose 155 H D (60-115) mg/dL Lactic Acid (0.5-2.0) mmol/L Lactic Acid F/U @ 2Hr 3.6 H* (0.5-2.0) mmol/L Calcium 8.1 L D (8.4-10.2) mg/dL Magnesium (1.6-2.6) mg/dL Total Bilirubin 0.5 (0.0-1.0) mg/dL AST 13 D (5-37) U/L ALT 6 (0-40) U/L Alkaline Phosphatase 66 (39-117) U/L Total Creatine Kinase (38-174) U/L Total Protein 6.0 L D (6.5-8.0) g/dL Albumin 3.6 (3.5-5.0) g/dL Urine Color Urine Appearance Urine pH (5.0-8.0) Ur Specific [place] (1.005-1.025) Urine Protein (NEG-TRACE) MG/DL Urine Glucose (UA) (NEG) MG/DL Urine Ketones (NEG) MG/DL Urine Blood (NEG) Urine Nitrite (NEG) Ur Leukocyte Esterase (NEG) Urine RBC (0) /HPF Urine WBC (0-4) /HPF Ur Squamous Epith Cells /LPF Urine Bacteria /LPF Urine Opiates Screen (Not Detect) Urine Fentanyl Screen (Not Detect) Ur Barbiturates Screen (Not Detect) Ur Phencyclidine Scrn (Not Detect) Ur Amphetamines Screen (Not Detect) U Benzodiazepines Scrn (Not Detect) Urine Cocaine Screen (Not Detect) U Marijuana (THC) Screen (Not Detect) Ethyl Alcohol mg/dL COVID-19 (CRUZ) (Negative) COVID-19 Clin Com <Ivan Silverio MD - Last Filed: 08/03/21 23:05> Critical Care Time Critical Care Time Critical Care Time: No <MARTHA Rabago - Last Filed: 08/03/21 21:32> Discharge Plan Discharge Clinical Impression: Acute alcohol abuse, Bronchitis, Acidosis, lactic, Suicidal ideation Depression Qualifiers: Depression Type: major depressive disorder Major depression recurrence: recurrent Major depression episode severity: moderate <MARTHA Rabago - Last Filed: 08/03/21 21:32> Patient Disposition: Admitted As Inpatient <MARTHA Rabago - Last Filed: 08/03/21 21:32>
[2021-08-03 12:01] VITALS: BP 127/77; PULSE 89; PULSE 92; RESP 20; TEMP 37.1; O2SAT 92; O2SAT 94; BMI 23.0
[2021-08-03] MEDS: ondansetron HCL 4 MG/2 ML VIAL IVPUSH (13:12)
[2021-08-03] MEDS: Naloxone HCl Nasal 4 MG SPRAY NOSTRILALT (13:30)
[2021-08-03 13:35] LABS: COVID-19 Test Negative (Negative)
[2021-08-03 13:38] LABS: MANUAL DIFF FLAG NO
[2021-08-03 13:39] LABS: Basophils Absolute Auto 0.1 X10*3/uL (0.0-0.2); Basophils Percent Auto 0.8 % (0-2); Eosinophils Absolute Auto 0.1 X10*3/uL (0.0-0.4); Eosinophils Percent Auto 0.4 % (0-4); Hematocrit 40.7 % (42.0-52.0); Hemoglobin 14.1 g/dl (14.0-18.0); Imm Gran Abs Auto 0.35 X10*3/uL (0.00-0.03); Imm Gran Pct Auto 2.1 % (0.0-0.4); Lymphocytes Percent Auto 23.7 % (20-40); Mean Corpuscular HGB Conc 34.6 g/dl (31.0-36.0); Mean Corpuscular Volume 89.5 fL (80.0-98.0); Mean Platelet Volume 8.8 fL (9.4-12.4); Monocytes Absolute Auto 1.3 X10*3/uL (0.1-1.2); Monocytes Percent Auto 7.4 % (2-11); Neutrophils Absolute Auto 11.1 x10*3/uL (2.0-8.3); Neutrophils Percent Auto 65.6 % (45-73); Platelet Count 354 X10*3/uL (160-400); Red Blood Count 4.55 X10*6/uL (4.60-5.80); Red Cell Distribution Width 14.7 % (11.0-16.0); White Blood Count 16.9 X10*3/uL (4.8-10.8)
[2021-08-03] MEDS: 0.9 % Sodium Chloride 1,000 ML 999 ML IV ×3 (13:50→23:11)
[2021-08-03 13:59] LABS: Alanine Aminotransferase 8 U/L (0-40); Albumin Level 4.2 g/dL (3.5-5.0); Alkaline Phosphatase 78 U/L (39-117); Anion Gap 22 (12-20); Aspartate Amino Transferase 22 U/L (5-37); Bilirubin Total 0.5 mg/dL (0.0-1.0); Blood Urea Nitrogen 13 mg/dL (9-16); Carbon Dioxide 21 mmol/L (22-29); Chloride 99 mmol/L (96-108); Creatinine Clr Calc Pharmacy 113.3; Estimated Glomerular Filt Rate > 60; Ethanol 389 mg/dL; Glucose Random 85 mg/dL (60-115); Magnesium 2.2 mg/dL (1.6-2.6); Potassium 4.5 mmol/L (3.3-5.1); Sodium 137 mmol/L (135-145); Total Protein 7.6 g/dL (6.5-8.0)
[2021-08-03 15:33] LABS: Lactic Acid 3.4 mmol/L (0.5-2.0)
[2021-08-03 15:46] LABS: Venous Blood Gas Refer to POC result
[2021-08-03 15:48] LABS: VBG Base Excess -1.8 mmol/L; VBG HCO3 21 mmol/L (22-26); VBG pCO2 30 mmHg; VBG pH 7.44 (7.32-7.43); VBG pO2 74 mmHg
[2021-08-03] MEDS: cefTRIAXone sodium 1 GM in 0.9 % Sodium Chloride 50 ML IV (15:56)
[2021-08-03 16:00] VITALS: BP 175/92; PULSE 82; RESP 16; O2SAT 97
[2021-08-03 17:06] LABS: Reflex Lactate? Lactic Acid Added
[2021-08-03 17:07] LABS: Amphetamine Screen Urine Not Detected (Not Detect); Barbiturates, Urine Not Detected (Not Detect); Benzodiazepines Screen Urine Not Detected (Not Detect); Cannabinoid Screen Urine POSITIVE (Not Detect); Cocaine Screen Urine POSITIVE (Not Detect); Fentanyl, urine POSITIVE (Not Detect); Opiate Screen Urine POSITIVE (Not Detect); Phencyclidine Screen Urine Not Detected (Not Detect)
[2021-08-03] MEDS: Famotidine 20 MG TABLET PO (17:43)
[2021-08-03] MEDS: Lidocaine HCl Viscous 2 % 15 ML SOLUTION 10 ML MUCOUS MEM (17:43)
[2021-08-03] MEDS: Magnesium Hydrox/Alum Hydrox 30 ML ORAL.SUSP 15 ML PO (17:43)
[2021-08-03 17:46] LABS: Appearance Urine CLEAR; Color Urine YELLOW; Glucose Urine UA NEG (NEG); Leukocyte Esterase Urine NEG (NEG); Nitrite Urine NEG (NEG); PH 5.5 (5.0-8.0); Specific Gravity - Urine >= 1.030 (1.005-1.025); UACC Culture Trigger NO; Urine Blood TRACE (NEG); Urine Ketones NEG (NEG); Urine Protein TRACE MG/DL (NEG-TRACE)
[2021-08-03 17:54] LABS: Bacteria Urine 1+ /LPF; RBC Urine 0-2 /HPF (0); Squamous Epithelial Cell Urine 1+ /LPF; WBC Urine 0 /HPF (0-4)
--- NOTE | 2021-08-03 19:45 | MHC.RECOVSUP ---
? Reason for consult Recovery Support o Current location: [id number] o Identified substance use concern: heroin <del>-</del> <del>Overdose</del> <del>-</del> <del>Withdrawal</del> <del>-</del> <del>Seeking</del> <del>ATS</del> <del>(detox)</del> <del>-</del> <del>Support</del> <del>?</del> <del>Intervention:</del> <del>o</del> <del>ATS</del> <del>bed</del> <del>search</del> <del>started/completed/in</del> <del>process</del> <del>o</del> <del>MAT</del> <del>started</del> <del>or</del> <del>to</del> <del>be</del> <del>started</del> <del>o</del> <del>Community</del> <del>resources</del> <del>provided</del> <del>o</del> <del>Harm</del> <del>reduction</del> <del>discussion</del> <del>?</del> <del>Plan:</del> <del>o</del> <del>Referral</del> <del>to</del> <del>[facility]</del> <del>o</del> <del>Bed</del> <del>search</del> <del>in</del> <del>progress</del> <del>to</del> <del>o</del> <del>Follow</del> <del>up</del> <del>tomorrow</del> <del>o</del> <del>Patient</del> <del>awaiting</del> <del>crisis</del> <del>evaluation</del> <del>o</del> <del>Patient</del> <del>to</del> <del>follow</del> <del>up</del> <del>with</del> <del>[facility]</del> <del>after</del> <del>discharge</del> ? Additional information:Attempt to interview. Patient would respond..
[2021-08-03 20:52] LABS: MANUAL DIFF FLAG NO
[2021-08-03 20:55] LABS: Basophils Absolute Auto 0.1 X10*3/uL (0.0-0.2); Basophils Percent Auto 0.5 % (0-2); Eosinophils Percent Auto 0.2 % (0-4); Hematocrit 35.2 % (42.0-52.0); Hemoglobin 12.2 g/dl (14.0-18.0); Imm Gran Pct Auto 1.4 % (0.0-0.4); Lymphocytes Absolute Auto 2.8 X10*3/uL (1.2-4.9); Lymphocytes Percent Auto 20.2 % (20-40); Mean Corpuscular HGB Conc 34.7 g/dl (31.0-36.0); Mean Corpuscular Hemoglobin 31.3 pg (27.0-33.0); Mean Corpuscular Volume 90.3 fL (80.0-98.0); Mean Platelet Volume 8.9 fL (9.4-12.4); Monocytes Absolute Auto 1.2 X10*3/uL (0.1-1.2); Monocytes Percent Auto 8.4 % (2-11); Neutrophils Absolute Auto 9.7 x10*3/uL (2.0-8.3); Neutrophils Percent Auto 69.3 % (45-73); Platelet Count 322 X10*3/uL (160-400); Red Cell Distribution Width 14.8 % (11.0-16.0)
[2021-08-03 21:16] LABS: Alanine Aminotransferase 6 U/L (0-40); Albumin Level 3.6 g/dL (3.5-5.0); Alkaline Phosphatase 66 U/L (39-117); Anion Gap 17 (12-20); Aspartate Amino Transferase 13 U/L (5-37); Bilirubin Total 0.5 mg/dL (0.0-1.0); Blood Urea Nitrogen 11 mg/dL (9-16); Calcium 8.1 mg/dL (8.4-10.2); Carbon Dioxide 22 mmol/L (22-29); Chloride 104 mmol/L (96-108); Creatinine Clr Calc Pharmacy 113.3; Estimated Glomerular Filt Rate > 60; Glucose Random 155 mg/dL (60-115); Potassium 3.3 mmol/L (3.3-5.1); Sodium 140 mmol/L (135-145)
[2021-08-03 22:01] LABS: ~Lactic Acid-LAB USE ONLY 3.6 mmol/L (0.5-2.0)
[2021-08-03 22:14] VITALS: TEMP 37.9
[2021-08-03] MEDS: vancomycin HCL 1,000 MG in 0.9 % Sodium Chloride 250 ML 270 MG IV (23:11)
[2021-08-03] MEDS: Thiamine HCL 200 MG in 0.9 % Sodium Chloride 100 ML 204 MG IV (23:19)
[2021-08-03 23:20] LABS: Lipase 66 U/L (8-78)
--- NOTE | 2021-08-03 23:37 | P.HPHOSP_ITS ---
History of Present Illness Date of Service: 08/03/21 Chief Complaint: alcohol intoxication 55-year-old male with a past medical history of alcohol abuse, polysubstance abuse- heroin cocaine-snorts; hypertension; presented to the hospital with a chief complaint of alcohol intoxication. Patient reported that he has been drinking alcohol for the past 2 weeks about 2 point every day; also sniffing cocaine and heroin; complains of generalized weakness, not feeling well, also reports shortness of breath and cough. Denies any chest pain. Complains of abdominal discomfort more so in the epigastrium-denies any nausea vomiting or diarrhea. Denies any numbness tingling or focal weakness. Denies any falls. Denies any redness of the skin or concerns for cellulitis. patient also mentioned that his not feeling right and said 'I want to kill myself, cannot go home' Review of all other systems is negative except mentioned above ER course: Per ER team patient has been homeless and has been drinking; noted to have low- grade temperature, lactic acidosis, mild leukocytosis; CT chest was done which showed Indeterminate subpleural reticulation and lucencies, possibly a manifestation of emphysema or interstitial lung disease. However, clinical correlation for an acute atypical infectious or inflammatory process should be obtained. t was empirically given antibiotics. Given IV fluids. The follow-up lactate slightly went up. Patient also received IV thiamine. Admitted for further management. [facility] Medical History EtOH dependence Hypertension Substance abuse Pertinent family history: reviewed Surgical History History of total right hip replacement Social History Substance Use Type: Heroin Advance Directives: No Advance Directives Information Provided: Yes Meds Allergies Allergy/AdvReac Type Severity Reaction Status Date / Time bee pollen [BEE STINGS] Allergy Severe SWELLING Unverified 03/28/20 15:04 Active Medications: Current Medications Pharmacy Consult (Consult Rx Vancomycin Dosing) 1 each MISCELLANE DAILY PRN PRN Reason: Consult order Home Medications Medication Instructions Recorded Confirmed Last Taken Type duloxetine 20 mg 20 mg PO BID 06/23/21 Unknown History capsule,delayed release hydroxyzine HCl 25 mg PO BID PRN 06/23/21 Unknown History 25 mg tablet lisinopril 10 mg 10 mg PO DAILY 06/23/21 Unknown History tablet omeprazole 20 mg 20 mg PO DAILY 06/23/21 Unknown History capsule,delayed release sertraline 50 mg 50 mg PO DAILY 06/23/21 Unknown History tablet Physical Exam Verdana 4l Vital Signs and Narrative: Verdana 4d Verdana 4d Vital Signs: Verdana 4d Verdana 4Bd Last Vital Signs Verdana 4d Party Demonstrator New 4d Party Demonstrator New 4d Temp 100.2 F 08/03/21 22:14 Party Demonstrator New 4d Pulse 82 08/03/21 16:00 Party Demonstrator NewNew 4d Resp 16 08/03/21 16:00 BP 175/92 H 08/03/21 16:00 Pulse Ox 97 08/03/21 16:00 BMI result Body Mass Index 23.0 Gen: Appears be in no acute distress HEENT: NCAT, Dry mucosa. Pulmonary: Vesicular breath sounds, fair air entry CVS: Normal S1-S2 Abdomen: BS+, Soft, Nontender Extremities: Warm well perfused Neuro: Alert and awake. oriented x3 Results Labs CBC and Chem 7: 08/03/21 20:47 08/03/21 20:47 Labs: Laboratory Results - last 24 hr 08/03/21 08/03/21 08/03/21 13:16 13:33 13:33 MCV 89.5 MCH 31.0 MCHC 34.6 RDW 14.7 Plt Count 354 MPV 8.8 L Immature Gran % (Auto) 2.1 H Neut % (Auto) 65.6 Lymph % (Auto) 23.7 [place] % (Auto) 7.4 Eos % (Auto) 0.4 Baso % (Auto) 0.8 Lymph # (Auto) 4.0 [place] # (Auto) 1.3 H Eos # (Auto) 0.1 Baso # (Auto) 0.1 Abs Immat Gran (auto) 0.35 H Absolute Neuts (auto) 11.1 H Absolute Nucleated RBC 0.000 Nucleated RBC % (auto) 0.0 VBG pH VBG pCO2 VBG pO2 VBG HCO3 VBG O2 Saturation VBG Base Excess Anion Gap Estim Creat Clear Calc Estimated GFR Random Glucose Lactic Acid Lactic Acid F/U @ 2Hr Calcium Magnesium Total Bilirubin AST ALT Alkaline Phosphatase Total Creatine Kinase Total Protein Albumin Lipase Urine Color Urine Appearance Urine pH Ur Specific [place] Urine Protein Urine Glucose (UA) Urine Ketones Urine Blood Urine Nitrite Ur Leukocyte Esterase Urine RBC Urine WBC Ur Squamous Epith Cells Urine Bacteria Urine Opiates Screen Urine Fentanyl Screen Ur Barbiturates Screen Ur Phencyclidine Scrn Ur Amphetamines Screen U Benzodiazepines Scrn Urine Cocaine Screen U Marijuana (THC) Screen Ethyl Alcohol 389 H* COVID-19 (CRUZ) Negative COVID-19 Clin Com See Note 08/03/21 08/03/21 08/03/21 13:33 15:03 15:42 MCV MCH MCHC RDW Plt Count MPV Immature Gran % (Auto) Neut % (Auto) Lymph % (Auto) [place] % (Auto) Eos % (Auto) Baso % (Auto) Lymph # (Auto) [place] # (Auto) Eos # (Auto) Baso # (Auto) Abs Immat Gran (auto) Absolute Neuts (auto) Absolute Nucleated RBC Nucleated RBC % (auto) VBG pH 7.44 H VBG pCO2 30 VBG pO2 74 VBG HCO3 21 L VBG O2 Saturation 93.0 VBG Base Excess -1.8 Anion Gap 22 H Estim Creat Clear Calc 113.3 Estimated GFR > 60 Random Glucose 85 Lactic Acid 3.4 H* Lactic Acid F/U @ 2Hr Calcium 9.0 Magnesium 2.2 Total Bilirubin 0.5 AST 22 ALT 8 Alkaline Phosphatase 78 Total Creatine Kinase 58 Total Protein 7.6 Albumin 4.2 Lipase Urine Color Urine Appearance Urine pH Ur Specific [place] Urine Protein Urine Glucose (UA) Urine Ketones Urine Blood Urine Nitrite Ur Leukocyte Esterase Urine RBC Urine WBC Ur Squamous Epith Cells Urine Bacteria Urine Opiates Screen Urine Fentanyl Screen Ur Barbiturates Screen Ur Phencyclidine Scrn Ur Amphetamines Screen U Benzodiazepines Scrn Urine Cocaine Screen U Marijuana (THC) Screen Ethyl Alcohol COVID-19 (CRUZ) COVID-19 Clin Com 08/03/21 08/03/21 08/03/21 16:48 16:48 20:47 MCV 90.3 MCH 31.3 MCHC 34.7 RDW 14.8 Plt Count 322 MPV 8.9 L Immature Gran % (Auto) 1.4 H Neut % (Auto) 69.3 Lymph % (Auto) 20.2 [place] % (Auto) 8.4 Eos % (Auto) 0.2 Baso % (Auto) 0.5 Lymph # (Auto) 2.8 [place] # (Auto) 1.2 Eos # (Auto) 0.0 Baso # (Auto) 0.1 Abs Immat Gran (auto) 0.20 H Absolute Neuts (auto) 9.7 H Absolute Nucleated RBC 0.000 Nucleated RBC % (auto) 0.0 VBG pH VBG pCO2 VBG pO2 VBG HCO3 VBG O2 Saturation VBG Base Excess Anion Gap Estim Creat Clear Calc Estimated GFR Random Glucose Lactic Acid Lactic Acid F/U @ 2Hr Calcium Magnesium Total Bilirubin AST ALT Alkaline Phosphatase Total Creatine Kinase Total Protein Albumin Lipase Urine Color YELLOW Urine Appearance CLEAR Urine pH 5.5 Ur Specific [place] >= 1.030 H Urine Protein TRACE Urine Glucose (UA) NEG Urine Ketones NEG Urine Blood TRACE Urine Nitrite NEG Ur Leukocyte Esterase NEG Urine RBC 0-2 Urine WBC 0 Ur Squamous Epith Cells 1+ Urine Bacteria 1+ Urine Opiates Screen POSITIVE H Urine Fentanyl Screen POSITIVE H Ur Barbiturates Screen Not Detected Ur Phencyclidine Scrn Not Detected Ur Amphetamines Screen Not Detected U Benzodiazepines Scrn Not Detected Urine Cocaine Screen POSITIVE H U Marijuana (THC) Screen POSITIVE H Ethyl Alcohol COVID-19 (CRUZ) COVID-19 Clin Com 08/03/21 08/03/21 20:47 21:44 MCV MCH MCHC RDW Plt Count MPV Immature Gran % (Auto) Neut % (Auto) Lymph % (Auto) [place] % (Auto) Eos % (Auto) Baso % (Auto) Lymph # (Auto) [place] # (Auto) Eos # (Auto) Baso # (Auto) Abs Immat Gran (auto) Absolute Neuts (auto) Absolute Nucleated RBC Nucleated RBC % (auto) VBG pH VBG pCO2 VBG pO2 VBG HCO3 VBG O2 Saturation VBG Base Excess Anion Gap 17 Estim Creat Clear Calc 113.3 Estimated GFR > 60 Random Glucose 155 H D Lactic Acid Lactic Acid F/U @ 2Hr 3.6 H* Calcium 8.1 L D Magnesium Total Bilirubin 0.5 AST 13 D ALT 6 Alkaline Phosphatase 66 Total Creatine Kinase Total Protein 6.0 L D Albumin 3.6 Lipase 66 Urine Color Urine Appearance Urine pH Ur Specific [place] Urine Protein Urine Glucose (UA) Urine Ketones Urine Blood Urine Nitrite Ur Leukocyte Esterase Urine RBC Urine WBC Ur Squamous Epith Cells Urine Bacteria Urine Opiates Screen Urine Fentanyl Screen Ur Barbiturates Screen Ur Phencyclidine Scrn Ur Amphetamines Screen U Benzodiazepines Scrn Urine Cocaine Screen U Marijuana (THC) Screen Ethyl Alcohol COVID-19 (CRUZ) COVID-19 Clin Com Imaging Radiologist's Impressions: Impressions Chest X-Ray 08/03/21 15:28 IMPRESSION: No acute pulmonary disease. Chest CT 08/03/21 18:11 IMPRESSION: Indeterminate subpleural reticulation and lucencies, possibly a manifestation of emphysema or interstitial lung disease. However, clinical correlation for an acute atypical infectious or inflammatory process should be obtained. Chronic right-sided rib fractures with fixation plates and screws. Patulous esophagus with air-fluid levels and lower esophageal wall thickening, possibly related with reflux disease and dysmotility disorder. There is however some indeterminate soft tissue fullness/stranding around the lower esophagus. If indicated, recommend correlation with an upper endoscopy. Assessment and Plan (1) Acute alcohol abuse: Status: Acute (2) Acidosis, lactic: Status: Acute (3) Depression: Qualifiers: Depression Type: major depressive disorder Major depression episode severity: moderate Major depression recurrence: recurrent Status: Acute (4) Suicidal ideation: Status: Acute 55-year-old male with a past medical history of alcohol abuse, polysubstance abuse- heroin cocaine-snorts; hypertension; presented to the hospital with a chief complaint of alcohol intoxication. Patient reported that he has been drinking alcohol for the past 2 weeks about 2 point every day; also sniffing cocaine and heroin; complains of generalized weakness, not feeling well, also reports shortness of breath and cough. CT scan showed question pneumonia; on labs noted to have leukocytosis, lactic acidosis; Admitted for following conditions Abdominal pain: Patient has epigastric tenderness. Question pancreatitis. Lipase pending. Pain control. IV fluids. Supportive care. ? pneumonia: Patient noted leukocytosis, lactic acidosis. Patient reports cough and shortness of breath. Continue ceftriaxone. Alcohol abuse: Monitor on CIWA protocol With Ativan. Thiamine folate and multivitamins. suicidal ideation: ER team to do Section 12. Psychiatric consult. Suicidal precautions. lactic acidosis: In the setting of infection versus dehydration vs alcohol use. Continue IV fluids. Polysubstance abuse: Addiction Medicine consult. monitor on COWS DVT prophylaxis: Subcu heparin Code status: Full code Quality Stroke Does the patient have a stroke diagnosis?: No VTE Prior VTE?: No VTE Risk Level:: Medical - moderate - high VTE Device Contraindication: Treatment Not Indicated VTE Drug Contraindication: N/A - Med Ordered
[2021-08-03 23:46] LABS: Reflex Lactate? 2 Y
[2021-08-04 00:33] LABS: ~Lactic Acid-LAB USE ONLY 2.7 mmol/L (0.5-2.0)
[2021-08-04 01:52] VITALS: BP 146/74; PULSE 83; RESP 20; TEMP 36.8; O2SAT 96
[2021-08-04] MEDS: Dextrose 5 % and 0.45 % NaCl 1,000 ML 50 ML IVCONT (01:59)
[2021-08-04 06:53] LABS: MANUAL DIFF FLAG NO
[2021-08-04 06:59] LABS: Basophils Absolute Auto 0.1 X10*3/uL (0.0-0.2); Basophils Percent Auto 0.6 % (0-2); Eosinophils Absolute Auto 0.1 X10*3/uL (0.0-0.4); Eosinophils Percent Auto 0.8 % (0-4); Hematocrit 34.4 % (42.0-52.0); Hemoglobin 11.7 g/dl (14.0-18.0); Imm Gran Abs Auto 0.13 X10*3/uL (0.00-0.03); Imm Gran Pct Auto 1.1 % (0.0-0.4); Lymphocytes Absolute Auto 2.6 X10*3/uL (1.2-4.9); Lymphocytes Percent Auto 21.9 % (20-40); Mean Corpuscular Hemoglobin 29.9 pg (27.0-33.0); Monocytes Absolute Auto 1.4 X10*3/uL (0.1-1.2); Monocytes Percent Auto 11.3 % (2-11); Neutrophils Absolute Auto 7.8 x10*3/uL (2.0-8.3); Neutrophils Percent Auto 64.3 % (45-73); Platelet Count 348 X10*3/uL (160-400); Red Blood Count 3.91 X10*6/uL (4.60-5.80); Red Cell Distribution Width 14.4 % (11.0-16.0); White Blood Count 12.1 X10*3/uL (4.8-10.8)
[2021-08-04 07:20] LABS: Anion Gap 11 (12-20); Blood Urea Nitrogen 9 mg/dL (9-16); Calcium 8.2 mg/dL (8.4-10.2); Carbon Dioxide 26 mmol/L (22-29); Chloride 105 mmol/L (96-108); Creatinine Clr Calc Pharmacy 121.2; Estimated Glomerular Filt Rate > 60; Glucose Random 106 mg/dL (60-115); Sodium 138 mmol/L (135-145)
--- NOTE | 2021-08-04 07:26 | PHA.MEDREC ---
Pharmacy Consult ? Medication Reconciliation Pharmacy has reviewed the medication reconciliation completed by Verenice. There are no remarkable issues for provider's attention. Maria Teresa Reno, radhaD
[2021-08-04 07:57] VITALS: BP 156/77; PULSE 89; RESP 18; TEMP 37; O2SAT 100
[2021-08-04 08:05] LABS: Appearance Urine HAZY; Color Urine YELLOW; Glucose Urine UA NEG (NEG); Leukocyte Esterase Urine NEG (NEG); Nitrite Urine NEG (NEG); PH 5.5 (5.0-8.0); Specific Gravity - Urine >= 1.030 (1.005-1.025); Urine Blood NEG (NEG); Urine Ketones NEG (NEG); Urine Protein TRACE MG/DL (NEG-TRACE)
[2021-08-04] MEDS: Folic Acid 1 MG TABLET PO (08:32)
[2021-08-04] MEDS: Famotidine/PF 20 MG/2 ML VIAL IVPUSH (08:32)
[2021-08-04] MEDS: Enoxaparin Sodium 40 MG/0.4 ML SYRINGE SUBCUT (08:32)
[2021-08-04] MEDS: Sertraline HCL 100 MG TABLET PO (08:33)
[2021-08-04] MEDS: Thiamine HCL 100 MG TABLET PO (08:33)
[2021-08-04] MEDS: Multivitamin TABLET 1 TAB PO (08:33)
[2021-08-04] MEDS: DULoxetine HCl 30 MG CAPSULE.DR PO (08:33)
[2021-08-04] MEDS: 0.9 % Sodium Chloride Flush 3 ML SYRINGE IVFLUSH (08:37)
--- NOTE | 2021-08-04 08:55 | PC.NURSE ---
report given to juice silva in overflow
[2021-08-04 09:10] VITALS: BP 163/87; PULSE 84; RESP 15; TEMP 37.2; O2SAT 92
[2021-08-04 09:15] LABS: RBC Urine 0-2 /HPF (0); WBC Urine 0-2 /HPF (0-4)
[2021-08-04 09:16] LABS: Bacteria Urine TRACE /LPF; Mucus Urine 1+ /LPF; Squamous Epithelial Cell Urine TRACE /LPF; Uric Acid Crystals Urine 1+ /LPF
--- NOTE | 2021-08-04 09:36 | PC.NURSE ---
Pt received from main ER: Pt AOX4 and offers him mild complaints and shakiness. Heart sounds normal and lungs clear. Pt abd round, soft and non-tender. Pt deneis any N/V. Pt self ambulatory with no issues with gait.
--- NOTE | 2021-08-04 10:33 | MHC.RECOVRN ---
Spoke with nursing at [facility] on [address] in [place]. Pt last received 55 mg methadone on 07/20/21 and a take home bottle for 07/21/21, 55 mg. Discussed with Carlota Hastings NP. Pt will be restarted with 30 mg today. Pts RN aware.
--- NOTE | 2021-08-04 12:26 | PC.NURSE ---
Upon rounds, pt noted to not be in room with all pt belongings taken. Pt last seen AOX4, self ambulatory, and asking for food, with IV intact. Pt hx of alcohol and substance abuse. Hospital security, house designer Yasmin and Hospitalist Kulwinder made aware. [place] [employer] also made aware for security check.
--- NOTE | 2021-08-04 13:47 | MHC.CM.PN ---
PT LEFT AMA
--- NOTE | 2021-08-04 14:36 | PM.DS ---
DS: Providers Provider Date of Service: 08/04/21 Date of admission: 08/03/21 23:34 Primary care physician: Unknown Physician Consults: 08/03/21 23:33 Consult to Psychiatry Routine Consulting Provider: Trenton Benitez Reason for consultation: SI 08/03/21 23:45 Addiction Medicine Routine Consulting Provider: Misty Rojas Reason for consultation: PSA DS: Diagnosis Discharge Diagnosis (1) Acute alcohol abuse: Status: Acute (2) Acidosis, lactic: Status: Acute (3) Depression: Status: Acute (4) Suicidal ideation: Status: Acute DS: Summary Hospital Course Hospital Course: Patient was admitted overnight as documentation in the H and P. He eloped before I could see him and reported returned to the ED hours later. Time Spent with Patient Time attestation: Total time spent providing and/or coordinating discharge services: Discharge coordination time: Less than 30 minutes Quality: Stroke Does the patient have a stroke diagnosis?: No Physical Exam Vital Signs: Vital Signs: Last Vital Signs Temp 98.9 F 08/04/21 09:10 Pulse 84 08/04/21 09:10 Resp 15 08/04/21 09:10 BP 163/87 H 08/04/21 09:10 Pulse Ox 92 08/04/21 09:10 BMI result Body Mass Index 23.0 DS: Data Data Completed and Pending Labs on day of discharge: Laboratory Results - last 24 hr 08/03/21 08/03/21 08/03/21 13:33 15:03 15:42 WBC RBC Hgb Hct MCV MCH MCHC RDW Plt Count MPV Immature Gran % (Auto) Neut % (Auto) Lymph % (Auto) [place] % (Auto) Eos % (Auto) Baso % (Auto) Lymph # (Auto) [place] # (Auto) Eos # (Auto) Baso # (Auto) Abs Immat Gran (auto) Absolute Neuts (auto) Absolute Nucleated RBC Nucleated RBC % (auto) VBG pH 7.44 H VBG pCO2 30 VBG pO2 74 VBG HCO3 21 L VBG O2 Saturation 93.0 VBG Base Excess -1.8 Sodium Potassium Chloride Carbon Dioxide Anion Gap BUN Creatinine Estim Creat Clear Calc Estimated GFR Random Glucose Lactic Acid 3.4 H* Lactic Acid F/U @ 2Hr Lactic Acid F/U @ 4Hr Calcium Total Bilirubin AST ALT Alkaline Phosphatase Total Creatine Kinase 58 Total Protein Albumin Lipase Urine Color Urine Appearance Urine pH Ur Specific [place] Urine Protein Urine Glucose (UA) Urine Ketones Urine Blood Urine Nitrite Ur Leukocyte Esterase Urine RBC Urine WBC Ur Squamous Epith Cells Uric Acid Crystals Urine Bacteria Urine Mucus Urine Opiates Screen Urine Fentanyl Screen Ur Barbiturates Screen Ur Phencyclidine Scrn Ur Amphetamines Screen U Benzodiazepines Scrn Urine Cocaine Screen U Marijuana (THC) Screen 08/03/21 08/03/21 08/03/21 16:48 16:48 20:47 WBC 14.0 H RBC 3.90 L Hgb 12.2 L Hct 35.2 L MCV 90.3 MCH 31.3 MCHC 34.7 RDW 14.8 Plt Count 322 MPV 8.9 L Immature Gran % (Auto) 1.4 H Neut % (Auto) 69.3 Lymph % (Auto) 20.2 [place] % (Auto) 8.4 Eos % (Auto) 0.2 Baso % (Auto) 0.5 Lymph # (Auto) 2.8 [place] # (Auto) 1.2 Eos # (Auto) 0.0 Baso # (Auto) 0.1 Abs Immat Gran (auto) 0.20 H Absolute Neuts (auto) 9.7 H Absolute Nucleated RBC 0.000 Nucleated RBC % (auto) 0.0 VBG pH VBG pCO2 VBG pO2 VBG HCO3 VBG O2 Saturation VBG Base Excess Sodium Potassium Chloride Carbon Dioxide Anion Gap BUN Creatinine Estim Creat Clear Calc Estimated GFR Random Glucose Lactic Acid Lactic Acid F/U @ 2Hr Lactic Acid F/U @ 4Hr Calcium Total Bilirubin AST ALT Alkaline Phosphatase Total Creatine Kinase Total Protein Albumin Lipase Urine Color YELLOW Urine Appearance CLEAR Urine pH 5.5 Ur Specific [place] >= 1.030 H Urine Protein TRACE Urine Glucose (UA) NEG Urine Ketones NEG Urine Blood TRACE Urine Nitrite NEG Ur Leukocyte Esterase NEG Urine RBC 0-2 Urine WBC 0 Ur Squamous Epith Cells 1+ Uric Acid Crystals Urine Bacteria 1+ Urine Mucus Urine Opiates Screen POSITIVE H Urine Fentanyl Screen POSITIVE H Ur Barbiturates Screen Not Detected Ur Phencyclidine Scrn Not Detected Ur Amphetamines Screen Not Detected U Benzodiazepines Scrn Not Detected Urine Cocaine Screen POSITIVE H U Marijuana (THC) Screen POSITIVE H 08/03/21 08/03/21 08/04/21 20:47 21:44 00:13 WBC RBC Hgb Hct MCV MCH MCHC RDW Plt Count MPV Immature Gran % (Auto) Neut % (Auto) Lymph % (Auto) [place] % (Auto) Eos % (Auto) Baso % (Auto) Lymph # (Auto) [place] # (Auto) Eos # (Auto) Baso # (Auto) Abs Immat Gran (auto) Absolute Neuts (auto) Absolute Nucleated RBC Nucleated RBC % (auto) VBG pH VBG pCO2 VBG pO2 VBG HCO3 VBG O2 Saturation VBG Base Excess Sodium 140 Potassium 3.3 D Chloride 104 Carbon Dioxide 22 Anion Gap 17 BUN 11 Creatinine 0.77 Estim Creat Clear Calc 113.3 Estimated GFR > 60 Random Glucose 155 H D Lactic Acid Lactic Acid F/U @ 2Hr 3.6 H* Lactic Acid F/U @ 4Hr 2.7 H* Calcium 8.1 L D Total Bilirubin 0.5 AST 13 D ALT 6 Alkaline Phosphatase 66 Total Creatine Kinase Total Protein 6.0 L D Albumin 3.6 Lipase 66 Urine Color Urine Appearance Urine pH Ur Specific [place] Urine Protein Urine Glucose (UA) Urine Ketones Urine Blood Urine Nitrite Ur Leukocyte Esterase Urine RBC Urine WBC Ur Squamous Epith Cells Uric Acid Crystals Urine Bacteria Urine Mucus Urine Opiates Screen Urine Fentanyl Screen Ur Barbiturates Screen Ur Phencyclidine Scrn Ur Amphetamines Screen U Benzodiazepines Scrn Urine Cocaine Screen U Marijuana (THC) Screen 08/04/21 08/04/21 08/04/21 06:48 06:48 08:00 WBC 12.1 H RBC 3.91 L Hgb 11.7 L Hct 34.4 L MCV 88.0 MCH 29.9 MCHC 34.0 RDW 14.4 Plt Count 348 MPV 9.0 L Immature Gran % (Auto) 1.1 H Neut % (Auto) 64.3 Lymph % (Auto) 21.9 [place] % (Auto) 11.3 H Eos % (Auto) 0.8 Baso % (Auto) 0.6 Lymph # (Auto) 2.6 [place] # (Auto) 1.4 H Eos # (Auto) 0.1 Baso # (Auto) 0.1 Abs Immat Gran (auto) 0.13 H Absolute Neuts (auto) 7.8 Absolute Nucleated RBC 0.000 Nucleated RBC % (auto) 0.0 VBG pH VBG pCO2 VBG pO2 VBG HCO3 VBG O2 Saturation VBG Base Excess Sodium 138 Potassium 4.0 D Chloride 105 Carbon Dioxide 26 Anion Gap 11 L BUN 9 Creatinine 0.72 Estim Creat Clear Calc 121.2 Estimated GFR > 60 Random Glucose 106 Lactic Acid Lactic Acid F/U @ 2Hr Lactic Acid F/U @ 4Hr Calcium 8.2 L Total Bilirubin AST ALT Alkaline Phosphatase Total Creatine Kinase Total Protein Albumin Lipase Urine Color YELLOW Urine Appearance HAZY Urine pH 5.5 Ur Specific [place] >= 1.030 H Urine Protein TRACE Urine Glucose (UA) NEG Urine Ketones NEG Urine Blood NEG Urine Nitrite NEG Ur Leukocyte Esterase NEG Urine RBC 0-2 Urine WBC 0-2 Ur Squamous Epith Cells TRACE Uric Acid Crystals 1+ Urine Bacteria TRACE Urine Mucus 1+ Urine Opiates Screen Urine Fentanyl Screen Ur Barbiturates Screen Ur Phencyclidine Scrn Ur Amphetamines Screen U Benzodiazepines Scrn Urine Cocaine Screen U Marijuana (THC) Screen Discharge Plan Discharge Anticipated Discharge Date/Time: 08/04/21 14:43 Patient Disposition: Left Against Medical Advice Discharge Diagnosis: Alcohol withdrawal Referrals: Physician,Unknown J [Primary Care Provider] - 2 days Discharge Medications: No Action celecoxib 200 mg capsule 1 cap PO BID PRN (Reason: Mild Pain (Scale Score 1-4)) RF: 0 tizanidine 2 mg tablet 1 tab PO BID PRN (Reason: Mild Pain (Scale Score 1-4)) RF: 0 sertraline 100 mg tablet 1 tab DAILY RF: 0 hydroxyzine HCl 50 mg tablet 1 tab PO BID RF: 0 melatonin 3 mg tablet 1 tab PO BEDTIME RF: 0 lidocaine [Lidoderm] 5 % adhesive patch,medicated 1 patch topical DAILY RF: 0 omeprazole 20 mg capsule,delayed release(DR/EC) 1 cap PO QAM RF: 0 lisinopril 5 mg tablet 1 tab PO DAILY RF: 0 duloxetine 30 mg capsule,delayed release(DR/EC) 1 cap PO BID RF: 0 Discharge Orders: Discharge Order (Routine); Ordered 08/04/21 Ordered By: Santiago Miramontes Stand Alone Forms: Work/School Release Care Plan Goals: eloped Health Concerns: eloped Plan of Treatment: eloped Assessment: eloped Patient Instructions: Acute Bronchitis (ED), Abuse of Alcohol (ED)
--- NOTE | 2021-08-04 15:18 | PM.PSYCN ---
History of Present Illness Date of Service: 08/04/21 Chief Complaint: ETOH abuse Reason for Consult: SI Requesting physician: Santiago Miramontes Discussed with referring provider: Yes Sources of Information: patient interviewed and chart reviewed HPI Narrative: Mr. Porter is a 55 year old male with history of alcohol and opioid use disorder. Patient has presented to this facility ED multiple times in past year for concerns related to alcohol and substance use, including September 29 for an overdose, May 27, July 26, and most recently August 03. He presented to this ED this afternoon after leaving AMA earlier today from ED overflow. Upon presenting back to ED, he reportedly told nurse that he had used 2 bags of heroin and drank a pt of alcohol when he left. He had reported that he was now suicidal, as well as in withdrawals from both alcohol and opioids. Psychiatry service asked to meet with patient due to suicidal statement. Upon approach, he presented with anxious, irritable edge. He states that he waited for 4 hours this morning to get his methadone dose. He stated that it never came, so that he left the hospital so that he could use, as he could no longer tolerate withdrawal symptoms. He reportedly had been living in a intermediate house, and had relapsed. It is unclear as to how long he has been out of intermediate house. Methadone was verified at clinic in [place], patient had not received his dose of 55 mg in 2 weeks. He was disheveled, sitting up in bed. Alert and oriented x4. When asked about his statement that he wanted to harm himself, he stated I can not be outside, I slept outside for 2 nights, do not want to do it again ?. When asked if he was actively suicidal, he stated he would be safe, and wants to remain in hospital. He states that he wishes to get back on his methadone dose, return to his clinic, and be able to return to his intermediate house. When asked if he had any type of plan, intent, or means to complete a suicide, he stated no . He was extremely anxious and irritable during encounter. He reports that he did not use any substances while he was gone, and was angry that he was not able to return and receive his methadone dose of 30mg that had been ordered earlier today. It was explained, that it would not be safe at this time to give his dose, as he had reported that he had left the hospital and used substances. Home medications include Cymbalta 30 mg b.i.d., sertraline 100 mg daily. When this va underwriter asked about these medications, he states that he gets these from his primary care provider, and that he has no concerns regarding them. He states that mainly he feels physically ill, and would like assistance with withdrawals. No visible symptoms of opioid or alcohol withdrawals observed during encounter. Past Psychiatric History: Patient denies any history of inpatient level of care, PHP. Primary care provider prescribes Cymbalta and sertraline. Medical Evaluation Reviewed: Yes Personal & Social History: Patient connected to [facility] methadone clinic on [address], has not received dosing in 2 weeks. Had been living in [facility], [facility] in [place]. Had been sleeping outside several nights before presentation to hospital. Review of Systems Review of Systems Full review of systems was completed and was negative with the exception of pertinent positives noted in the history of the presenting illness (HPI). Constitutional: Reports as per HPI Eyes: Reports no additional eye complaints Reports Normal hearing present Reports Normal hearing present [facility] Medical History EtOH dependence Hypertension Substance abuse Surgical History History of total right hip replacement Family History: unknown Social History: homeless, had been living in intermediate [place]. Substance History: Longstanding history of alcohol and opioid use disorder Trauma History: unknown Diagnostics Vital Signs (24Hr): Vital Signs - 24 hr 08/03/21 16:00 08/03/21 22:14 08/04/21 01:52 Temperature 100.2 F 98.3 F Pulse Rate 82 83 Respiratory Rate 16 20 Blood Pressure 175/92 H 146/74 H Pulse Oximetry 97 96 08/04/21 07:57 08/04/21 09:10 Temperature 98.6 F 98.9 F Pulse Rate 89 84 Respiratory Rate 18 15 Blood Pressure 156/77 H 163/87 H Pulse Oximetry 100 92 BMI result Body Mass Index 23.0 Labs Results: 08/04/21 06:48 08/04/21 06:48 Labs: Laboratory Results - last 48 hr 01/23/22 01/23/22 01/23/22 13:16 13:33 13:33 WBC 16.9 H RBC 4.55 L Hgb 14.1 Hct 40.7 L MCV 89.5 MCH 31.0 MCHC 34.6 RDW 14.7 Plt Count 354 MPV 8.8 L Immature Gran % (Auto) 2.1 H Neut % (Auto) 65.6 Lymph % (Auto) 23.7 Rankin % (Auto) 7.4 Eos % (Auto) 0.4 Baso % (Auto) 0.8 Lymph # (Auto) 4.0 Rankin # (Auto) 1.3 H Eos # (Auto) 0.1 Baso # (Auto) 0.1 Abs Immat Gran (auto) 0.35 H Absolute Neuts (auto) 11.1 H Absolute Nucleated RBC 0.000 Nucleated RBC % (auto) 0.0 VBG pH VBG pCO2 VBG pO2 VBG HCO3 VBG O2 Saturation VBG Base Excess Sodium Potassium Chloride Carbon Dioxide Anion Gap BUN Creatinine Estim Creat Clear Calc Estimated GFR Random Glucose Lactic Acid Lactic Acid F/U @ 2Hr Lactic Acid F/U @ 4Hr Calcium Magnesium Total Bilirubin AST ALT Alkaline Phosphatase Total Creatine Kinase Total Protein Albumin Lipase Urine Color Urine Appearance Urine pH Ur Specific [place] Urine Protein Urine Glucose (UA) Urine Ketones Urine Blood Urine Nitrite Ur Leukocyte Esterase Urine RBC Urine WBC Ur Squamous Epith Cells Uric Acid Crystals Urine Bacteria Urine Mucus Urine Opiates Screen Urine Fentanyl Screen Ur Barbiturates Screen Ur Phencyclidine Scrn Ur Amphetamines Screen U Benzodiazepines Scrn Urine Cocaine Screen U Marijuana (THC) Screen Ethyl Alcohol 389 H* COVID-19 (CRUZ) Negative COVID-19 Clin Com See Note 08/03/21 08/03/21 08/03/21 13:33 15:03 15:42 WBC RBC Hgb Hct MCV MCH MCHC RDW Plt Count MPV Immature Gran % (Auto) Neut % (Auto) Lymph % (Auto) Rankin % (Auto) Eos % (Auto) Baso % (Auto) Lymph # (Auto) Rankin # (Auto) Eos # (Auto) Baso # (Auto) Abs Immat Gran (auto) Absolute Neuts (auto) Absolute Nucleated RBC Nucleated RBC % (auto) VBG pH 7.44 H VBG pCO2 30 VBG pO2 74 VBG HCO3 21 L VBG O2 Saturation 93.0 VBG Base Excess -1.8 Sodium 137 Potassium 4.5 Chloride 99 Carbon Dioxide 21 L Anion Gap 22 H BUN 13 Creatinine 0.77 Estim Creat Clear Calc 113.3 Estimated GFR > 60 Random Glucose 85 Lactic Acid 3.4 H* Lactic Acid F/U @ 2Hr Lactic Acid F/U @ 4Hr Calcium 9.0 Magnesium 2.2 Total Bilirubin 0.5 AST 22 ALT 8 Alkaline Phosphatase 78 Total Creatine Kinase 58 Total Protein 7.6 Albumin 4.2 Lipase Urine Color Urine Appearance Urine pH Ur Specific [place] Urine Protein Urine Glucose (UA) Urine Ketones Urine Blood Urine Nitrite Ur Leukocyte Esterase Urine RBC Urine WBC Ur Squamous Epith Cells Uric Acid Crystals Urine Bacteria Urine Mucus Urine Opiates Screen Urine Fentanyl Screen Ur Barbiturates Screen Ur Phencyclidine Scrn Ur Amphetamines Screen U Benzodiazepines Scrn Urine Cocaine Screen U Marijuana (THC) Screen Ethyl Alcohol COVID-19 (CRUZ) COVID-19 Clin Com 08/03/21 08/03/21 08/03/21 16:48 16:48 20:47 WBC 14.0 H RBC 3.90 L Hgb 12.2 L Hct 35.2 L MCV 90.3 MCH 31.3 MCHC 34.7 RDW 14.8 Plt Count 322 MPV 8.9 L Immature Gran % (Auto) 1.4 H Neut % (Auto) 69.3 Lymph % (Auto) 20.2 Rankin % (Auto) 8.4 Eos % (Auto) 0.2 Baso % (Auto) 0.5 Lymph # (Auto) 2.8 Rankin # (Auto) 1.2 Eos # (Auto) 0.0 Baso # (Auto) 0.1 Abs Immat Gran (auto) 0.20 H Absolute Neuts (auto) 9.7 H Absolute Nucleated RBC 0.000 Nucleated RBC % (auto) 0.0 VBG pH VBG pCO2 VBG pO2 VBG HCO3 VBG O2 Saturation VBG Base Excess Sodium Potassium Chloride Carbon Dioxide Anion Gap BUN Creatinine Estim Creat Clear Calc Estimated GFR Random Glucose Lactic Acid Lactic Acid F/U @ 2Hr Lactic Acid F/U @ 4Hr Calcium Magnesium Total Bilirubin AST ALT Alkaline Phosphatase Total Creatine Kinase Total Protein Albumin Lipase Urine Color YELLOW Urine Appearance CLEAR Urine pH 5.5 Ur Specific [place] >= 1.030 H Urine Protein TRACE Urine Glucose (UA) NEG Urine Ketones NEG Urine Blood TRACE Urine Nitrite NEG Ur Leukocyte Esterase NEG Urine RBC 0-2 Urine WBC 0 Ur Squamous Epith Cells 1+ Uric Acid Crystals Urine Bacteria 1+ Urine Mucus Urine Opiates Screen POSITIVE H Urine Fentanyl Screen POSITIVE H Ur Barbiturates Screen Not Detected Ur Phencyclidine Scrn Not Detected Ur Amphetamines Screen Not Detected U Benzodiazepines Scrn Not Detected Urine Cocaine Screen POSITIVE H U Marijuana (THC) Screen POSITIVE H Ethyl Alcohol COVID-19 (CRUZ) COVID-19 [place] 08/03/21 08/03/21 08/04/21 20:47 21:44 00:13 WBC RBC Hgb Hct MCV MCH MCHC RDW Plt Count MPV Immature Gran % (Auto) Neut % (Auto) Lymph % (Auto) Rankin % (Auto) Eos % (Auto) Baso % (Auto) Lymph # (Auto) Rankin # (Auto) Eos # (Auto) Baso # (Auto) Abs Immat Gran (auto) Absolute Neuts (auto) Absolute Nucleated RBC Nucleated RBC % (auto) VBG pH VBG pCO2 VBG pO2 VBG HCO3 VBG O2 Saturation VBG Base Excess Sodium 140 Potassium 3.3 D Chloride 104 Carbon Dioxide 22 Anion Gap 17 BUN 11 Creatinine 0.77 Estim Creat Clear Calc 113.3 Estimated GFR > 60 Random Glucose 155 H D Lactic Acid Lactic Acid F/U @ 2Hr 3.6 H* Lactic Acid F/U @ 4Hr 2.7 H* Calcium 8.1 L D Magnesium Total Bilirubin 0.5 AST 13 D ALT 6 Alkaline Phosphatase 66 Total Creatine Kinase Total Protein 6.0 L D Albumin 3.6 Lipase 66 Urine Color Urine Appearance Urine pH Ur Specific [place] Urine Protein Urine Glucose (UA) Urine Ketones Urine Blood Urine Nitrite Ur Leukocyte Esterase Urine RBC Urine WBC Ur Squamous Epith Cells Uric Acid Crystals Urine Bacteria Urine Mucus Urine Opiates Screen Urine Fentanyl Screen Ur Barbiturates Screen Ur Phencyclidine Scrn Ur Amphetamines Screen U Benzodiazepines Scrn Urine Cocaine Screen U Marijuana (THC) Screen Ethyl Alcohol COVID-19 (CRUZ) COVID-19 [place] 08/04/21 08/04/21 08/04/21 06:48 06:48 08:00 WBC 12.1 H RBC 3.91 L Hgb 11.7 L Hct 34.4 L MCV 88.0 MCH 29.9 MCHC 34.0 RDW 14.4 Plt Count 348 MPV 9.0 L Immature Gran % (Auto) 1.1 H Neut % (Auto) 64.3 Lymph % (Auto) 21.9 Rankin % (Auto) 11.3 H Eos % (Auto) 0.8 Baso % (Auto) 0.6 Lymph # (Auto) 2.6 Rankin # (Auto) 1.4 H Eos # (Auto) 0.1 Baso # (Auto) 0.1 Abs Immat Gran (auto) 0.13 H Absolute Neuts (auto) 7.8 Absolute Nucleated RBC 0.000 Nucleated RBC % (auto) 0.0 VBG pH VBG pCO2 VBG pO2 VBG HCO3 VBG O2 Saturation VBG Base Excess Sodium 138 Potassium 4.0 D Chloride 105 Carbon Dioxide 26 Anion Gap 11 L BUN 9 Creatinine 0.72 Estim Creat Clear Calc 121.2 Estimated GFR > 60 Random Glucose 106 Lactic Acid Lactic Acid F/U @ 2Hr Lactic Acid F/U @ 4Hr Calcium 8.2 L Magnesium Total Bilirubin AST ALT Alkaline Phosphatase Total Creatine Kinase Total Protein Albumin Lipase Urine Color YELLOW Urine Appearance HAZY Urine pH 5.5 Ur Specific [place] >= 1.030 H Urine Protein TRACE Urine Glucose (UA) NEG Urine Ketones NEG Urine Blood NEG Urine Nitrite NEG Ur Leukocyte Esterase NEG Urine RBC 0-2 Urine WBC 0-2 Ur Squamous Epith Cells TRACE Uric Acid Crystals 1+ Urine Bacteria TRACE Urine Mucus 1+ Urine Opiates Screen Urine Fentanyl Screen Ur Barbiturates Screen Ur Phencyclidine Scrn Ur Amphetamines Screen U Benzodiazepines Scrn Urine Cocaine Screen U Marijuana (THC) Screen Ethyl Alcohol COVID-19 (CRUZ) COVID-19 Clin Com Imaging Radiology Impressions: ITS Impressions Chest X-Ray 08/03/21 15:28 IMPRESSION: No acute pulmonary disease. Chest CT 08/03/21 18:11 IMPRESSION: Indeterminate subpleural reticulation and lucencies, possibly a manifestation of emphysema or interstitial lung disease. However, clinical correlation for an acute atypical infectious or inflammatory process should be obtained. Chronic right-sided rib fractures with fixation plates and screws. Patulous esophagus with air-fluid levels and lower esophageal wall thickening, possibly related with reflux disease and dysmotility disorder. There is however some indeterminate soft tissue fullness/stranding around the lower esophagus. If indicated, recommend correlation with an upper endoscopy. Mental Status Exam Mental Status Exam Narrative: Fairly groomed, disheveled. Appears stated age. Alert and oriented x4. Eye contact within normal limits. No involuntary movements, tics or tremors noted. Manner and behavior irritable but cooperative. Speech was fluent, unimpaired. Mood and affect anxious. Thought process and associations goal directed. Thought content: peseveration. No evidence of any type of auditory, visual, tactile hallucinations observed or reported. Patient had stated upon presentation to ED that he wanted to kill himself. Denies any type of plan or intent. States that he wishes to resume his methadone dosing and be allowed to return to a sober intermediate house. No evidence of violence towards others. Appears to be a fair historian. Judgment and insight fair. Ambulation not observed. Medications Medications Current Medications Albuterol/Ipratropium (Albuterol/Iprat 2.5/0.5mg 3 Ml Ampul.Neb) 3 ml INHALE RQ4H PRN PRN Reason: Shortness of Breath/Wheezing Duloxetine HCl (Duloxetine Hcl 30 Mg Capsule.Dr) 30 mg PO BID [facility] Last Admin: 08/04/21 08:33 Dose: 30 mg Documented by: Enoxaparin Sodium (Enoxaparin Sodium 40 Mg/0.4 Ml Syringe) 40 mg SUBCUT Q24H [facility] Last Admin: 08/04/21 08:32 Dose: 40 mg Documented by: Famotidine (Famotidine/Pf 20 Mg/2 Ml Vial) 20 mg IVPUSH BID [facility] Last Admin: 08/04/21 08:32 Dose: 20 mg Documented by: Folic Acid (Folic Acid 1 Mg Tablet) 1 mg PO DAILY [facility] Stop: 08/07/21 08:59 Last Admin: 08/04/21 08:32 Dose: 1 mg Documented by: Hydromorphone HCl (Hydromorphone Hcl 1 Mg/Ml Syringe) 0.5 mg IVPUSH Q4H PRN; Protocol PRN Reason: Pain, Severe (Pain Scale 7-10) Hydroxyzine HCl (Hydroxyzine Hcl 25 Mg Tablet) 25 mg PO Q6H PRN PRN Reason: Anxiety Dextrose/Sodium Chloride (D51/2ns) 1,000 mls @ 50 mls/hr IVCONT .Q20H [facility] Last Admin: 08/04/21 01:59 Dose: 50 mls/hr Documented by: Lorazepam (Lorazepam 1 Mg Tablet) 1 mg PO Q4H PRN PRN Reason: Breakthrough alcohol withdrawa Stop: 08/07/21 23:33 Melatonin (Melatonin 3 Mg Tablet) 6 mg PO BEDTIME PRN PRN Reason: Insomnia Melatonin (Melatonin 3 Mg Tablet) 3 mg PO BEDTIME [facility] Methadone HCl (Methadone Hcl 20 Mg/2 Ml Oral.Conc) 30 mg PO DAILY [facility] Last Admin: 08/04/21 12:33 Dose: Not Given Documented by: Methadone HCl (Methadone Hcl 10 Mg Tablet) 10 mg PO ONCE ONE Stop: 08/04/21 20:01 Multivitamins/Vitamin C (Multivitamin Tablet) 1 tab PO DAILY [facility] Stop: 08/07/21 08:59 Last Admin: 08/04/21 08:33 Dose: 1 tab Documented by: Pharmacy Consult (Consult Rx Vancomycin Dosing) 1 each MISCELLANE DAILY PRN PRN Reason: Consult order Senna (Sennosides 8.6 Mg Tablet) 17.2 mg PO BEDTIME PRN PRN Reason: Constipation Sertraline HCl (Sertraline Hcl 100 Mg Tablet) 100 mg PO DAILY [facility] Last Admin: 08/04/21 08:33 Dose: 100 mg Documented by: Sodium Chloride (0.9 % Sodium Chloride Flush 3 Ml Syringe) 3 ml IVFLUSH QSHIFT [facility] Last Admin: 08/04/21 08:37 Dose: 3 ml Documented by: Thiamine HCl (Thiamine Hcl 100 Mg Tablet) 100 mg PO DAILY [facility] Stop: 08/07/21 08:59 Last Admin: 08/04/21 08:33 Dose: 100 mg Documented by: Allergies Allergies Allergy/AdvReac Type Severity Reaction Status Date / Time bee pollen [BEE STINGS] Allergy Severe SWELLING Verified 08/04/21 13:28 Assessment & Plan Assessment & Plan (1) Acute alcohol abuse: Status: Acute Code(s): F10.10 - Alcohol abuse, uncomplicated Assessment and Plan: Patient's ethyl alcohol level was 389 on 08/03/2021. Patient tested positive for opiates, fentanyl, cocaine, and marijuana on same date. No overt alcohol withdrawals noted during encounter this afternoon. Patient had reported that he left and drank several pt of hard liquor and then returned. (2) Suicidal ideation: Status: Acute Code(s): R45.851 - Suicidal ideations Assessment and Plan: Patient had reported suicidal ideation upon presentation back to emergency department this afternoon. When questioned by this va underwriter, he stated he has no intent or plan to complete a suicide. He stated ?I just want to get back on my methadone ?. (3) Opioid use disorder, severe, dependence: Status: Acute Code(s): F11.20 - Opioid dependence, uncomplicated Assessment and Plan: Methadone 10 mg has been ordered for later on this evening at 20:00. Initial dose of 30 mg that was ordered this morning has been held until tomorrow, as patient had initially stated he had used when he left AMA at lunchtime. Assessment and Plan: 1. Patient denies any active SI upon interview this afternoon. Does have passive SI, related to sleeping outside. No intent, no plan. 2. Wishes to resume methadone dosing as soon as possible. Dose for 10 mg ordered this evening at 20:00. 30 mg ordered for tomorrow morning. 3. Continue to work with recovery team regarding providing support, and information regarding [facility] and treatment programs. I spent minutes with the patient and/or on the patient floor today, greater than?50% of which was spent counseling/coordinating care. Patient educated on: medication risk/benefits, substance abuse and therapeutic strategies Informed Consent: understands
== END 2021-08-04 20:04 | disposition left against medical advice (07) | DRG 425 ==
LOC: HO.ED 22:19 → HO.EDOVER 23:50
PROVIDERS: Internal Medicine; Physician Assistant; Admitting Provider Hospitalist; Emergency Provider Emergency Medicine; PCP Internal Medicine; Visit Provider Internal Medicine
DX: E87.2 Acidosis (principal); R45.851 Suicidal ideations; F10.10 Alcohol abuse, uncomplicated; F17.210 Nicotine dependence, cigarettes, uncomplicated; I10 Essential (primary) hypertension; Z59.02 Unsheltered homelessness; Z20.822 Contact with and (suspected) exposure to COVID-19; Z71.6 Tobacco abuse counseling; Z79.1 Long term (current) use of non-steroidal anti-inflammatories (NSAID); Z79.899 Other long term (current) drug therapy
CPT/HCPCS: 36415; 71045; 71250; 80048; 80053; 80307; 81001; 82077; 82550; 82803; 83605; 83690; 83735; 85025; 87040; 87635; 96361; 96365; 96375; 99285; J0696; J1650; J2405; J3370; J3411

== ENCOUNTER 2021-08-04 13:08 | Emergency (ER) | payer MEDICAID, SELFPAY ==
[2021-08-04 13:24] VITALS: BP 122/61; BP 140/88; PULSE 72; PULSE 88; RESP 16; TEMP 36.6; O2SAT 95; O2SAT 97; BMI 22.1
--- NOTE | 2021-08-04 13:30 | PHA.MEDREC ---
Pharmacy Consult ? Medication Reconciliation Pharmacy has completed the medication reconciliation. Patient just left overflow today 08/04. Medication reconciliation completed by Verenice overnight. There are no remarkable issues for provider's attention. Juan Reno, PhillipD
--- NOTE | 2021-08-04 13:42 | ED_ITS ---
HPI - General Adult General Chief complaint: Psychiatric Symptoms Stated complaint: crisis Time Seen by Provider: 08/04/21 13:25 Source: patient and EMS Mode of arrival: EMS Limitations: other ( Intoxicated) History of Present Illness HPI narrative: patient comes to the emergency room complaining of suicidal ideation and alcohol intoxication. Patient was already admitted to the hospitalist service for lactic acidosis, question pneumonia and impressionpancreatitis, alcohol intoxication, polysubstance abuse. patient was in the holding area of the hospital and patient eloped. patient went to a gas station, patient drank half pt of vodka, patient states that he wants to kill himself. Related Data Home Medications Medication Instructions Recorded Confirmed celecoxib 200 mg capsule 1 cap PO BID PRN 08/04/21 08/04/21 duloxetine 30 mg capsule,delayed 1 cap PO BID 08/04/21 08/04/21 release hydroxyzine HCl 50 mg tablet 1 tab PO BID 08/04/21 08/04/21 lidocaine 5 % topical patch 1 patch TOPICAL DAILY 08/04/21 08/04/21 (Lidoderm) lisinopril 5 mg tablet 1 tab PO DAILY 08/04/21 08/04/21 melatonin 3 mg tablet 1 tab PO BEDTIME 08/04/21 08/04/21 omeprazole 20 mg capsule,delayed 1 cap PO QAM 08/04/21 08/04/21 release sertraline 100 mg tablet 1 tab DAILY 08/04/21 08/04/21 tizanidine 2 mg tablet 1 tab PO BID PRN 08/04/21 08/04/21 Allergies Allergy/AdvReac Type Severity Reaction Status Date / Time bee pollen [BEE STINGS] Allergy Severe SWELLING Verified 08/04/21 13:28 Review of Systems Review of Systems: Constitutional : No Weight loss, No Fever, No Chills, No Night Sweats, No Fatigue, No Malaise ENT/Mouth : No Hearing loss, No Ear Pain, No Nasal Congestion, No Sinus Pain, No Hoarseness, No sore throat, No Rhinorrhea, No Swallowing Difficulty Eyes: No Eye Pain, No Swelling, No Redness, No Foreign Body, No Discharge, No Vision Changes Cardiovascular : No Chest Pain, No SOB, No Dyspnea on Exertion, No Orthopnea, No Edema, No Palpitations Respiratory : complaining of coughCough, No Sputum, No Wheezing, No Smoke Exposure, No Dyspnea Gastrointestinal : No Nausea, No Vomiting, No Diarrhea, Complaining of epigastric pain Genitourinary : no irregular bleeding, No Dysuria, No Urinary Frequency, No Hematuria, No Urinary Incontinence, No Urgency, No Flank Pain, No Urinary Flow Changes, No Hesitancy Musculoskeletal : No joint pain, No Myalgias, No Joint Swelling Skin : No Skin Lesions, No rash Neuro : No Weakness, No Numbness, No Paresthesias, No Loss of Consciousness, No Dizziness, No Headache Psych : No Anxiety/Panic, No Depression, No SI/HI/AH/VH, No Social Issues, Heme/Lymph: No Bruising, No Bleeding,No Lymphadenopathy Endocrine : No Polyuria, No Polydipsia, No Temperature Intolerance [facility] Past Medical History Medical History EtOH dependence Hypertension Substance abuse Surgical History History of total right hip replacement Social History Social History Alcohol intake: current Patient Tobacco Use Status: Current everyday Tobacco user Use of substances other than those prescribed or required for medical reasons: Yes Substance Use Type: Heroin Advance Directives: No Advance Directives Information Provided: Yes Physical Exam Vital Signs: Vital Signs: Last Vital Signs Temp 97.8 F 08/04/21 13:24 Pulse 72 08/04/21 13:24 Resp 16 08/04/21 13:24 BP 122/61 08/04/21 13:24 Pulse Ox 95 08/04/21 13:24 BMI result Body Mass Index 22.1 Const: Other: Appearance: Alert. Oriented X3. seems intoxicated Eyes: Pupils equal, round and reactive to light. ENT: Pharynx normal. Neck: Normal inspection. Neck supple. No lymph nodes noted. No crepitus CVS: Normal heart rate and rhythm. Pulses normal. Normal S1 and S2 Respiratory: No respiratory distress. Breath sounds normal. No Wheezing. No rales Abdomen: Soft, tenderness to palpation in epigastric area Skin: Skin warm and dry. Normal skin color. Normal skin turgor. Extremities: No lower extremity edema. No Lacerations. No Rash Neuro: Oriented X 3. cranial nerves 2-12 grossly intact Course Course Course Narrative: at this time, we are repeating all the labs. I discussed with Dr. Rojas the patient eloped from the hospitalist service for holding area. New labs pending, patient being readmitted. Patient is again on a Section 12, which is on his chart I discussed the patient with Dr. Miramontes, Patient was evaluated by Psychiatry, Carlota Hastings, Per her notes, patient is not actively suicidal. Also, patient does not meet any criteria for admission. Lactic acidosis is chronic secondary to alcohol abuse. care team consult pending physician observation started at 15:14, patient's vitals are stable The care team and the head strength and conditioning coach is attempted getting a detox place for the patient. However they were unsuccessful. patient is awake and alert and oriented x3, stable gait, unassisted. Patient agrees to home with his sister. All the information for detox facilities were provided to the patient. Patient agrees with plan. Medical Decision Making Lab Data Result diagrams: 08/04/21 14:42 08/04/21 14:21 Labs: Lab Results 08/04/21 08/04/21 08/04/21 Range/Units 14:21 14:21 14:42 WBC 11.5 H (4.8-10.8) X10*3/uL RBC 3.62 L (4.60-5.80) X10*6/uL Hgb 11.0 L (14.0-18.0) g/dl Hct 32.0 L (42.0-52.0) % MCV 88.4 (80.0-98.0) fL MCH 30.4 (27.0-33.0) pg MCHC 34.4 (31.0-36.0) g/dl RDW 14.1 (11.0-16.0) % Plt Count 322 (160-400) X10*3/uL MPV 8.9 L (9.4-12.4) fL Immature Gran % (Auto) 0.9 H (0.0-0.4) % Neut % (Auto) 66.7 (45-73) % Lymph % (Auto) 21.6 (20-40) % [place] % (Auto) 9.7 (2-11) % Eos % (Auto) 0.5 (0-4) % Baso % (Auto) 0.6 (0-2) % Lymph # (Auto) 2.5 (1.2-4.9) X10*3/uL Reynolds # (Auto) 1.1 (0.1-1.2) X10*3/uL Eos # (Auto) 0.1 (0.0-0.4) X10*3/uL Baso # (Auto) 0.1 (0.0-0.2) X10*3/uL Abs Immat Gran (auto) 0.10 H (0.00-0.03) X10*3/uL Absolute Neuts (auto) 7.7 (2.0-8.3) x10*3/uL Absolute Nucleated RBC 0.000 (0.0-0.012) X10*3/uL Nucleated RBC % (auto) 0.0 (0.0-0.2) /100WBC Sodium 137 (135-145) mmol/L Potassium 3.5 (3.3-5.1) mmol/L Chloride 103 (96-108) mmol/L Carbon Dioxide 24 (22-29) mmol/L Anion Gap 14 (12-20) BUN 8 L (9-16) mg/dL Creatinine 0.69 (0.5-1.4) mg/dL Estim Creat Clear Calc 125.1 Estimated GFR > 60 Random Glucose 123 H (60-115) mg/dL Lactic Acid (0.5-2.0) mmol/L Lactic Acid F/U @ 2Hr (0.5-2.0) mmol/L Calcium 8.3 L (8.4-10.2) mg/dL Total Bilirubin 0.7 (0.0-1.0) mg/dL Direct Bilirubin 0.3 (0.0-0.5) mg/dL AST 12 (5-37) U/L ALT 6 (0-40) U/L Alkaline Phosphatase 60 (39-117) U/L Total Protein 5.6 L (6.5-8.0) g/dL Albumin 3.3 L (3.5-5.0) g/dL Ethyl Alcohol 177 mg/dL 08/04/21 08/04/21 Range/Units 14:42 18:14 WBC (4.8-10.8) X10*3/uL RBC (4.60-5.80) X10*6/uL Hgb (14.0-18.0) g/dl Hct (42.0-52.0) % MCV (80.0-98.0) fL MCH (27.0-33.0) pg MCHC (31.0-36.0) g/dl RDW (11.0-16.0) % Plt Count (160-400) X10*3/uL MPV (9.4-12.4) fL Immature Gran % (Auto) (0.0-0.4) % Neut % (Auto) (45-73) % Lymph % (Auto) (20-40) % Reynolds % (Auto) (2-11) % Eos % (Auto) (0-4) % Baso % (Auto) (0-2) % Lymph # (Auto) (1.2-4.9) X10*3/uL Reynolds # (Auto) (0.1-1.2) X10*3/uL Eos # (Auto) (0.0-0.4) X10*3/uL Baso # (Auto) (0.0-0.2) X10*3/uL Abs Immat Gran (auto) (0.00-0.03) X10*3/uL Absolute Neuts (auto) (2.0-8.3) x10*3/uL Absolute Nucleated RBC (0.0-0.012) X10*3/uL Nucleated RBC % (auto) (0.0-0.2) /100WBC Sodium (135-145) mmol/L Potassium (3.3-5.1) mmol/L Chloride (96-108) mmol/L Carbon Dioxide (22-29) mmol/L Anion Gap (12-20) BUN (9-16) mg/dL Creatinine (0.5-1.4) mg/dL Estim Creat Clear Calc Estimated GFR Random Glucose (60-115) mg/dL Lactic Acid 3.0 H* (0.5-2.0) mmol/L Lactic Acid F/U @ 2Hr 1.9 (0.5-2.0) mmol/L Calcium (8.4-10.2) mg/dL Total Bilirubin (0.0-1.0) mg/dL Direct Bilirubin (0.0-0.5) mg/dL AST (5-37) U/L ALT (0-40) U/L Alkaline Phosphatase (39-117) U/L Total Protein (6.5-8.0) g/dL Albumin (3.5-5.0) g/dL Ethyl Alcohol mg/dL Discharge Plan Discharge Clinical Impression: Acute alcohol abuse, Depression, Active substance abuse Patient Disposition: Home, Self-Care Instructions: Polysubstance Abuse (ED), Abuse of Alcohol (ED) Additional Instructions: Please follow-up with your primary care physician tomorrow. If you have any worsening or new symptoms, please return to the emergency room or call 911 Prescriptions: No Action celecoxib 200 mg capsule 1 cap PO BID PRN (Reason: Mild Pain (Scale Score 1-4)) RF: 0 tizanidine 2 mg tablet 1 tab PO BID PRN (Reason: Mild Pain (Scale Score 1-4)) RF: 0 sertraline 100 mg tablet 1 tab DAILY RF: 0 hydroxyzine HCl 50 mg tablet 1 tab PO BID RF: 0 melatonin 3 mg tablet 1 tab PO BEDTIME RF: 0 lidocaine [Lidoderm] 5 % adhesive patch,medicated 1 patch topical DAILY RF: 0 omeprazole 20 mg capsule,delayed release(DR/EC) 1 cap PO QAM RF: 0 lisinopril 5 mg tablet 1 tab PO DAILY RF: 0 duloxetine 30 mg capsule,delayed release(DR/EC) 1 cap PO BID RF: 0
--- NOTE | 2021-08-04 14:12 | PC.NURSE ---
Addendum entered by Lisandra Goodwin 08/04/21 14:20: this rn asked the pt if he is suicidal but pt's states that he does not know if he is suicidal at this time, he states that he is hungry and homeless again no clear answer if the pt is suicidal or not Original Note: pt alert and oriented, skin pwd, respirations even and unlabored. pt reports [place] the [facility] for his [place] hurrah and dranked a pint of vodka and snorted 2 bags of heroine then wanted help so he came back to the hospital. still having some pain in his back which is chronic
[2021-08-04 14:45] LABS: MANUAL DIFF FLAG NO
[2021-08-04 14:46] LABS: Ethanol 177 mg/dL
[2021-08-04 14:47] LABS: Basophils Absolute Auto 0.1 X10*3/uL (0.0-0.2); Basophils Percent Auto 0.6 % (0-2); Eosinophils Absolute Auto 0.1 X10*3/uL (0.0-0.4); Eosinophils Percent Auto 0.5 % (0-4); Imm Gran Pct Auto 0.9 % (0.0-0.4); Lymphocytes Absolute Auto 2.5 X10*3/uL (1.2-4.9); Lymphocytes Percent Auto 21.6 % (20-40); Mean Corpuscular HGB Conc 34.4 g/dl (31.0-36.0); Mean Corpuscular Hemoglobin 30.4 pg (27.0-33.0); Mean Corpuscular Volume 88.4 fL (80.0-98.0); Mean Platelet Volume 8.9 fL (9.4-12.4); Monocytes Absolute Auto 1.1 X10*3/uL (0.1-1.2); Monocytes Percent Auto 9.7 % (2-11); Neutrophils Absolute Auto 7.7 x10*3/uL (2.0-8.3); Neutrophils Percent Auto 66.7 % (45-73); Platelet Count 322 X10*3/uL (160-400); Red Blood Count 3.62 X10*6/uL (4.60-5.80); Red Cell Distribution Width 14.1 % (11.0-16.0); White Blood Count 11.5 X10*3/uL (4.8-10.8)
[2021-08-04 14:49] LABS: Alanine Aminotransferase 6 U/L (0-40); Albumin Level 3.3 g/dL (3.5-5.0); Alkaline Phosphatase 60 U/L (39-117); Anion Gap 14 (12-20); Aspartate Amino Transferase 12 U/L (5-37); Bilirubin Direct 0.3 mg/dL (0.0-0.5); Bilirubin Total 0.7 mg/dL (0.0-1.0); Blood Urea Nitrogen 8 mg/dL (9-16); Calcium 8.3 mg/dL (8.4-10.2); Carbon Dioxide 24 mmol/L (22-29); Chloride 103 mmol/L (96-108); Creatinine Clr Calc Pharmacy 125.1; Estimated Glomerular Filt Rate > 60; Glucose Random 123 mg/dL (60-115); Potassium 3.5 mmol/L (3.3-5.1); Sodium 137 mmol/L (135-145); Total Protein 5.6 g/dL (6.5-8.0)
--- NOTE | 2021-08-04 15:31 | MHC.RECOVSUP ---
Recovery Support note: Patient is a 55 year old [place]uran speaking male who presented to [facility] ED via EMS after reporting SI while under the influence of alcohol and heroin. Patient is now denying SI, stating that he feels safe to discharge to a treatment facility. Patient has been seen by psychiatry and does not require psychiatric services at this time. Patient has had a medical workup and is medically cleared for discharge. This life insurance underwriter met with patient to discuss substance use and treatment options. Patient reports drinking a quart of liquor daily in addition to occasionally using heroin nasally. Patient expresses interest in going to ATS, stating he is willing to go anywhere. This life insurance underwriter will refer patient to ATS facilities.
--- NOTE | 2021-08-04 15:50 | PC.NURSE ---
new plan for the pt to be dischargee home, pt does not meet criteria for admission and pt was seen by Carlota rooney NP and cleared to go home pt will meet with the charter coach driver for possible detox
[2021-08-04 16:44] LABS: Reflex Lactate? Lactic Acid Added
[2021-08-04 18:33] LABS: ~Lactic Acid-LAB USE ONLY 1.9 mmol/L (0.5-2.0)
[2021-08-04 19:47] VITALS: BP 177/91; PULSE 76; RESP 18; TEMP 36.9; O2SAT 97
--- NOTE | 2021-08-04 19:48 | PC.NURSE ---
Pt alert and oriented x4, calm and cooperative. Pt denies pain. Pt states he is ready for dc. Pt educated on dc and seen by chemical recovery operator. Pt taking cab home, called himself. IV removed, vitals stable.
== END 2021-08-04 20:05 | disposition home or self-care (01) ==
PROVIDERS: Emergency Provider Emergency Medicine
DX: F10.10 Alcohol abuse, uncomplicated (principal); Y90.6 Blood alcohol level of 120-199 mg/100 ml; F11.20 Opioid dependence, uncomplicated; F32.A Depression, unspecified; E87.2 Acidosis; R45.851 Suicidal ideations
CPT/HCPCS: 36415; 80048; 80076; 82077; 83605; 85025; 99284

== ENCOUNTER 2021-08-05 04:21 | Emergency (ER) | payer MEDICAID, SELFPAY ==
--- NOTE | ~2021-08-05 | CT_ITS ---
EXAMINATION: CT CHEST WITHOUT CONTRAST CLINICAL INFORMATION: Chest wall pain. Fall. Intoxicated. COMPARISON: 08/03/2021 TECHNIQUE: Multidetector volumetric CT imaging of the chest was done. Axial MIP volume rendering provided. Sagittal and coronal reformatted images were obtained. This CT examination was performed using dose optimization techniques as appropriate, variously including the following: *Automated exposure control *Adjustment of mA and/or kV according to patient size (this includes techniques or standardized protocols for targeted exams where dose is matched to indication/reason for exam; i.e. extremities or head) *Use of iterative reconstruction technique DLP: 322 mGy-cm FINDINGS: LUNGS: The central airways are patent. There is no dense consolidation. No pneumothorax. Mild centrilobular emphysema. Subpleural cystic changes anteriorly in both lungs as seen on series 5 image 197. This likely is associated with chronic interstitial lung disease. MEDIASTINUM: Prominent heart. Coronary artery calcifications. No pericardial effusion. No mediastinal lymphadenopathy. PLEURA: There is no pleural effusion. No pleural mass or thickening. AXILLA: No lymphadenopathy. UPPER ABDOMEN: Simple cyst at the upper pole of the left kidney. No follow-up imaging recommended. OSSEOUS STRUCTURES: Fixation hardware involving multiple right-sided ribs. There is no acute rib fracture. The sternum is intact. Vertebral body height and alignment is unchanged with multilevel degenerative change. Mild height loss at T8 and L1 vertebral bodies again noted. CT/CT chest wo con IMPRESSION: No acute traumatic finding of the chest. No fractures are seen. Mild chronic changes in the lungs. Fleischner guidelines were followed.
--- NOTE | ~2021-08-05 | CT_ITS ---
EXAMINATION: NONCONTRAST HEAD CT NONCONTRAST MAXILLOFACIAL CT NONCONTRAST CERVICAL SPINE CT INDICATION INFORMATION: Fall. Intoxication. COMPARISON: 09/24/2020 TECHNIQUE: Separate noncontrast CT examinations of the head, maxillofacial bones, and cervical spine were performed. Coronal and sagittal images were created for each examination at the technologist workstation. This CT examination was performed using dose optimization techniques as appropriate, variously including the following: *Automated exposure control *Adjustment of mA and/or kV according to patient size (this includes techniques or standardized protocols for targeted exams where dose is matched to indication/reason for exam; i.e. extremities or head) *Use of iterative reconstruction technique DLP: 1445 mGy-cm FINDINGS: Head: There is no evidence of acute intracranial hemorrhage or territorial infarction. No abnormal mass effect or midline shift is seen. [place] to white matter differentiation is well preserved. No extra-axial fluid collections are identified. No hydrocephalus. No significant volume loss. Small chronic lacunar infarcts of the right frontal and parietal centrum semiovale. Chronic right caudate lacunar infarct. Left frontal subgaleal hematoma. No calvarial fracture. The mastoid air cells are well aerated. Maxillofacial: No acute maxillofacial fractures are seen. The pterygoid plates are intact. The lamina papyracea are intact. The zygomatic arches are intact. The nasal bone is intact. The orbital rims are intact. There is near complete opacification of the left maxillary sinus. Small mucus retention cyst in the right maxillary sinus. Remaining paranasal sinuses are well aerated. The uncinate process is normal bilaterally. The infundibula and middle meati are patent. The nasal septum deviates to the right. The mandibular heads are well-seated in the condylar fossa. The orbits demonstrate a normal appearance bilaterally. The globes are intact, and there are no suspicious findings to suggest retrobulbar hemorrhage. Cervical spine: There is anatomic alignment of the vertebral bodies and posterior elements. The atlantoaxial and atlantooccipital articulations are intact. Vertebral body heights are maintained. There is multilevel intervertebral disc space narrowing with endplate osteophyte formation and facet arthropathy. Ligamentum flavum calcification at the C6 level. No evidence of acute fracture. No prevertebral soft tissue swelling. Visualized portions of the lung apices are unremarkable. The thyroid gland is unremarkable. CT/CT cervical spine wo con IMPRESSION: 1. No acute intracranial finding. 2. No acute fracture or malalignment of the cervical spine. Moderate degenerative change. 3. No acute maxillofacial fracture. Near complete opacification of the left maxillary sinus.
[2021-08-05 04:25] VITALS: BP 114/69; PULSE 73; RESP 18; TEMP 36.7; O2SAT 97; BMI 23.9
--- NOTE | 2021-08-05 04:31 | ED.ALCOHOL ---
HPI - Alcohol General Chief Complaint: ETOH/Substance Use Stated Complaint: ETOH,FALL,HEAD INJURY,FOREHEAD LAC, UNK LOC Time Seen by Provider: 08/05/21 04:25 Source: patient and EMS Mode of arrival: EMS History of Present Illness HPI narrative: This is a 55-year-old male with known alcohol dependence who is brought in by EMS after he was intoxicated at home and fell in the bathroom after unknown amount of vodka, unknown loss of consciousness but not on blood thinners and has lacerations to the left forehead. Patient states he has a headache and is unable to quantify how much vodka he had but states he has been drinking ?too much?. Related Data Home Medications Medication Instructions Recorded Confirmed celecoxib 200 mg capsule 1 cap PO BID PRN 08/04/21 08/04/21 duloxetine 30 mg capsule,delayed 1 cap PO BID 08/04/21 08/04/21 release hydroxyzine HCl 50 mg tablet 1 tab PO BID 08/04/21 08/04/21 lidocaine 5 % topical patch 1 patch TOPICAL DAILY 08/04/21 08/04/21 (Lidoderm) lisinopril 5 mg tablet 1 tab PO DAILY 08/04/21 08/04/21 melatonin 3 mg tablet 1 tab PO BEDTIME 08/04/21 08/04/21 omeprazole 20 mg capsule,delayed 1 cap PO QAM 08/04/21 08/04/21 release sertraline 100 mg tablet 1 tab DAILY 08/04/21 08/04/21 tizanidine 2 mg tablet 1 tab PO BID PRN 08/04/21 08/04/21 Allergies Allergy/AdvReac Type Severity Reaction Status Date / Time bee pollen [BEE STINGS] Allergy Severe SWELLING Verified 08/04/21 13:28 Review of Systems Review of Systems: Pertinent positives and negatives as stated in HPI 10 point review of systems is otherwise negative. [facility] Past Medical History Source: nursing notes reviewed Medical History EtOH dependence Hypertension Substance abuse Surgical History History of total right hip replacement Social History Social History Alcohol intake: current Patient Tobacco Use Status: Current everyday Tobacco user Substance Use Type: Heroin Advance Directives: No Physical Exam Vital Signs: Vital Signs: Last Vital Signs Temp 97.9 F 08/05/21 07:16 Pulse 113 H 08/05/21 07:16 Resp 16 08/05/21 07:16 BP 177/81 H 08/05/21 07:16 Pulse Ox 97 08/05/21 07:16 BMI result Body Mass Index 23.9 VITAL SIGNS: Reviewed. GENERAL: Well developed, well nourished, in no acute distress. HEAD: Normocephalic/contusion laceration to left forehead with abrasion at center of forehead EYES: PERRLA, EOMI EARS: Ext canals without abnormality, TMs non-bulging and non-erythematous, no hemotympanum NOSE: Nares patent bilateral, no septal hematomas OROPHARYNX: no oral lesions noted, posterior pharynx clear, tongue is midline and there are no lacerations. NECK: C-collar in place until patient pulled off but no midline cervical spine tenderness. LUNGS: Normal breath sounds. No adventitious sounds or accessory muscle use. SpO2<97>, chest wall on palpation with pain but no crepitus and no noted deformities CARDIOVASCULAR: Regular rate and rhythm without noted murmurs, no JVD or lower extremity edema. ABDOMEN: Soft, tenderness in epigastric, non-distended with bowel sounds. MUSCULOSKELETAL: No tenderness, deformities, or effusions noted on gross inspection. EXTREMITIES: No cyanosis, clubbing or edema. SKIN: Inspection of the skin reveals no rashes NEUROLOGIC: GCS-15 and Strength and sensation to light touch were grossly intact x 4. Course Course Course Narrative: 55-year-old male with history and clinical presentation consistent with acute alcohol intoxication and likely unsteady gait with subsequent fall secondary to being intoxicated. Will obtain imaging studies. Review of all investigations otherwise negative for acute findings and patient had laceration repaired, continues to be somewhat nauseous, and requesting detox. MDM - Alcohol Lab Data Result diagrams: 08/05/21 04:47 08/05/21 04:47 Labs: Lab Results 08/05/21 08/05/21 08/05/21 Range/Units 04:47 04:47 04:47 WBC 8.9 (4.8-10.8) X10*3/uL RBC 3.94 L (4.60-5.80) X10*6/uL Hgb 12.1 L (14.0-18.0) g/dl Hct 34.5 L (42.0-52.0) % MCV 87.6 (80.0-98.0) fL MCH 30.7 (27.0-33.0) pg MCHC 35.1 (31.0-36.0) g/dl RDW 14.1 (11.0-16.0) % Plt Count 338 (160-400) X10*3/uL MPV 8.7 L (9.4-12.4) fL Immature Gran % (Auto) 1.0 H (0.0-0.4) % Neut % (Auto) 60.5 (45-73) % Lymph % (Auto) 31.2 (20-40) % [place] % (Auto) 5.9 (2-11) % Eos % (Auto) 0.6 (0-4) % Baso % (Auto) 0.8 (0-2) % Lymph # (Auto) 2.8 (1.2-4.9) X10*3/uL [place] # (Auto) 0.5 (0.1-1.2) X10*3/uL Eos # (Auto) 0.1 (0.0-0.4) X10*3/uL Baso # (Auto) 0.1 (0.0-0.2) X10*3/uL Abs Immat Gran (auto) 0.09 H (0.00-0.03) X10*3/uL Absolute Neuts (auto) 5.4 (2.0-8.3) x10*3/uL Absolute Nucleated RBC 0.000 (0.0-0.012) X10*3/uL Nucleated RBC % (auto) 0.0 (0.0-0.2) /100WBC PT (9.9-13.0) SEC INR (0.9-1.1) Sodium 140 (135-145) mmol/L Potassium 3.5 (3.3-5.1) mmol/L Chloride 101 (96-108) mmol/L Carbon Dioxide 27 (22-29) mmol/L Anion Gap 16 (12-20) BUN 5 L (9-16) mg/dL Creatinine 0.69 (0.5-1.4) mg/dL Estim Creat Clear Calc 131.2 Estimated GFR > 60 Random Glucose 105 (60-115) mg/dL Calcium 8.6 (8.4-10.2) mg/dL Magnesium 2.0 (1.6-2.6) mg/dL Total Bilirubin 0.4 (0.0-1.0) mg/dL AST 17 D (5-37) U/L ALT 7 (0-40) U/L Alkaline Phosphatase 65 (39-117) U/L Total Protein 6.7 (6.5-8.0) g/dL Albumin 3.7 (3.5-5.0) g/dL Lipase 50 (8-78) U/L Urine Color Urine Appearance Urine pH (5.0-8.0) Ur Specific [place] (1.005-1.025) Urine Protein (NEG-TRACE) MG/DL Urine Glucose (UA) (NEG) MG/DL Urine Ketones (NEG) MG/DL Urine Blood (NEG) Urine Nitrite (NEG) Ur Leukocyte Esterase (NEG) Ethyl Alcohol mg/dL COVID-19 (CRUZ) Negative (Negative) COVID-19 Clin Com See Note 08/05/21 08/05/21 08/05/21 Range/Units 04:47 04:47 05:01 WBC (4.8-10.8) X10*3/uL RBC (4.60-5.80) X10*6/uL Hgb (14.0-18.0) g/dl Hct (42.0-52.0) % MCV (80.0-98.0) fL MCH (27.0-33.0) pg MCHC (31.0-36.0) g/dl RDW (11.0-16.0) % Plt Count (160-400) X10*3/uL MPV (9.4-12.4) fL Immature Gran % (Auto) (0.0-0.4) % Neut % (Auto) (45-73) % Lymph % (Auto) (20-40) % [place] % (Auto) (2-11) % Eos % (Auto) (0-4) % Baso % (Auto) (0-2) % Lymph # (Auto) (1.2-4.9) X10*3/uL [place] # (Auto) (0.1-1.2) X10*3/uL Eos # (Auto) (0.0-0.4) X10*3/uL Baso # (Auto) (0.0-0.2) X10*3/uL Abs Immat Gran (auto) (0.00-0.03) X10*3/uL Absolute Neuts (auto) (2.0-8.3) x10*3/uL Absolute Nucleated RBC (0.0-0.012) X10*3/uL Nucleated RBC % (auto) (0.0-0.2) /100WBC PT 11.0 (9.9-13.0) SEC INR 1.0 (0.9-1.1) Sodium (135-145) mmol/L Potassium (3.3-5.1) mmol/L Chloride (96-108) mmol/L Carbon Dioxide (22-29) mmol/L Anion Gap (12-20) BUN (9-16) mg/dL Creatinine (0.5-1.4) mg/dL Estim Creat Clear Calc Estimated GFR Random Glucose (60-115) mg/dL Calcium (8.4-10.2) mg/dL Magnesium (1.6-2.6) mg/dL Total Bilirubin (0.0-1.0) mg/dL AST (5-37) U/L ALT (0-40) U/L Alkaline Phosphatase (39-117) U/L Total Protein (6.5-8.0) g/dL Albumin (3.5-5.0) g/dL Lipase (8-78) U/L Urine Color STRAW Urine Appearance CLEAR Urine pH 7.0 (5.0-8.0) Ur Specific [place] 1.010 (1.005-1.025) Urine Protein NEG (NEG-TRACE) MG/DL Urine Glucose (UA) NEG (NEG) MG/DL Urine Ketones NEG (NEG) MG/DL Urine Blood NEG (NEG) Urine Nitrite NEG (NEG) Ur Leukocyte Esterase NEG (NEG) Ethyl Alcohol 269 mg/dL COVID-19 (CRUZ) (Negative) COVID-19 Clin Com Procedures Laceration Laceration 1: Site: face Side (If applicable): left Size (cm): 6 Description: linear and irregular Depth: simple, single layer Local Anesthetic: lidocaine 1% Amount of anesthesia used (mL): 5 Pre-repair: wound explored, irrigated extensively and deep structures intact Skin layer closed with: nylon Size (cm): 4-0 Number of sutures: 5 Technique: horizontal mattress Discharge Plan Discharge Clinical Impression: Alcoholic intoxication, Alcohol dependence, Forehead laceration Patient Disposition: Still a Patient Instructions: Care For Your Stitches (ED), Laceration (ED), Alcohol Intoxication (ED), Alcohol Dependence (ED) Additional Instructions: Stop drinking alcohol and pursue either outpatient or inpatient programs. Follow-up with primary care provider and resume all home medications as prescribed. Prescriptions: No Action celecoxib 200 mg capsule 1 cap PO BID PRN (Reason: Mild Pain (Scale Score 1-4)) RF: 0 tizanidine 2 mg tablet 1 tab PO BID PRN (Reason: Mild Pain (Scale Score 1-4)) RF: 0 sertraline 100 mg tablet 1 tab DAILY RF: 0 hydroxyzine HCl 50 mg tablet 1 tab PO BID RF: 0 melatonin 3 mg tablet 1 tab PO BEDTIME RF: 0 lidocaine [Lidoderm] 5 % adhesive patch,medicated 1 patch topical DAILY RF: 0 omeprazole 20 mg capsule,delayed release(DR/EC) 1 cap PO QAM RF: 0 lisinopril 5 mg tablet 1 tab PO DAILY RF: 0 duloxetine 30 mg capsule,delayed release(DR/EC) 1 cap PO BID RF: 0
--- NOTE | 2021-08-05 04:31 | PC.NURSE ---
MD IN ROOM, PT ARRIVED WITH C-COLLAR IN PLACE. PT SAT UP AND RIPPED OF C-COLLAR AND STATES I DON'T NEED THAT MD AWARE, CLOTHES REMOVED AND PT IN GOWN. PT REFUSING TO PUT COLLAR BACK ON. PT AWAITING FOR HEAD CT. DRESSING REMAINS IN PLACE TO HEAD.
[2021-08-05] MEDS: Diphth,Pertus(ACell),Tet Adult 0.5 ML SYRINGE IM (04:53)
[2021-08-05] MEDS: ondansetron HCL 4 MG/2 ML VIAL IVPUSH ×2 (04:55→07:20)
[2021-08-05] MEDS: 0.9 % Sodium Chloride 1,000 ML 999 ML IV (04:55)
[2021-08-05 05:12] LABS: Basophils Absolute Auto 0.1 X10*3/uL (0.0-0.2); Basophils Percent Auto 0.8 % (0-2); Eosinophils Absolute Auto 0.1 X10*3/uL (0.0-0.4); Eosinophils Percent Auto 0.6 % (0-4); Hematocrit 34.5 % (42.0-52.0); Hemoglobin 12.1 g/dl (14.0-18.0); Imm Gran Abs Auto 0.09 X10*3/uL (0.00-0.03); Lymphocytes Absolute Auto 2.8 X10*3/uL (1.2-4.9); Lymphocytes Percent Auto 31.2 % (20-40); MANUAL DIFF FLAG NO; Mean Corpuscular HGB Conc 35.1 g/dl (31.0-36.0); Mean Corpuscular Hemoglobin 30.7 pg (27.0-33.0); Mean Corpuscular Volume 87.6 fL (80.0-98.0); Mean Platelet Volume 8.7 fL (9.4-12.4); Monocytes Absolute Auto 0.5 X10*3/uL (0.1-1.2); Monocytes Percent Auto 5.9 % (2-11); Neutrophils Absolute Auto 5.4 x10*3/uL (2.0-8.3); Neutrophils Percent Auto 60.5 % (45-73); Platelet Count 338 X10*3/uL (160-400); Red Blood Count 3.94 X10*6/uL (4.60-5.80); Red Cell Distribution Width 14.1 % (11.0-16.0); White Blood Count 8.9 X10*3/uL (4.8-10.8)
[2021-08-05 05:24] LABS: COVID-19 Test Negative (Negative); IDNOW Serial# 9DD0AD1C
[2021-08-05 05:27] LABS: Ethanol 269 mg/dL
[2021-08-05 05:30] VITALS: BP 136/84; PULSE 67; RESP 18; O2SAT 97
--- NOTE | 2021-08-05 05:36 | PC.NURSE ---
unable to do [place] Severity scale d/t pt unable to cooperative at this time and falling back to sleep. pt is not answering questions properly. pt awaiting for head CT..
[2021-08-05 05:39] LABS: Alanine Aminotransferase 7 U/L (0-40); Albumin Level 3.7 g/dL (3.5-5.0); Alkaline Phosphatase 65 U/L (39-117); Anion Gap 16 (12-20); Aspartate Amino Transferase 17 U/L (5-37); Bilirubin Total 0.4 mg/dL (0.0-1.0); Blood Urea Nitrogen 5 mg/dL (9-16); Calcium 8.6 mg/dL (8.4-10.2); Carbon Dioxide 27 mmol/L (22-29); Chloride 101 mmol/L (96-108); Creatinine Clr Calc Pharmacy 131.2; Estimated Glomerular Filt Rate > 60; Glucose Random 105 mg/dL (60-115); Lipase 50 U/L (8-78); Potassium 3.5 mmol/L (3.3-5.1); Sodium 140 mmol/L (135-145); Total Protein 6.7 g/dL (6.5-8.0)
[2021-08-05 06:00] VITALS: BP 164/89; PULSE 79; RESP 18; O2SAT 98
[2021-08-05] MEDS: Lidocaine HCl 1 % MPF 5 ML VIAL SUBCUT (07:01)
--- NOTE | 2021-08-05 07:02 | PC.NURSE ---
pt is being sutured by . Pt tolerating well.
[2021-08-05 07:16] VITALS: BP 177/81; PULSE 113; RESP 16; TEMP 36.6; O2SAT 97
[2021-08-05] MEDS: Ketorolac Tromethamine 30 MG/ML VIAL 15 MG IVPUSH (07:19)
[2021-08-05] MEDS: Acetaminophen 325 MG TABLET 975 MG PO (07:20)
--- NOTE | 2021-08-05 09:00 | MHC.RECOVRN ---
Spoke with pts RN, plan for pt to continue ATS bedsearch outpatient. Pt transported to [facility] via [employer]. [facility] aware and agreeable to assist pt.
== END 2021-08-05 09:21 | disposition still patient (30) ==
PROVIDERS: Student in an Organized Health Care Education/Training Program; Emergency Provider Emergency Medicine
DX: S01.81XA Laceration without foreign body of other part of head, initial encounter (principal); F10.20 Alcohol dependence, uncomplicated; G44.309 Post-traumatic headache, unspecified, not intractable; Y90.8 Blood alcohol level of 240 mg/100 ml or more; W01.0XXA Fall on same level from slipping, tripping and stumbling without subsequent striking against object, initial encounter; Y93.9 Activity, unspecified; Y92.9 Unspecified place or not applicable; Y99.9 Unspecified external cause status; Z20.822 Contact with and (suspected) exposure to COVID-19; Z79.899 Other long term (current) drug therapy; Z71.41 Alcohol abuse counseling and surveillance of alcoholic
CPT/HCPCS: 12014; 36415; 70450; 70486; 71250; 72125; 80053; 81003; 82077; 83690; 83735; 85025; 85610; 87635; 90471; 90715; 96361; 96374; 96375; 96376; 99284; J1885; J2405

== ENCOUNTER 2021-08-28 07:48 | Emergency (ER) | payer MEDICAID, SELFPAY ==
--- NOTE | ~2021-08-28 | XR_ITS ---
EXAMINATION: XR HIP, RIGHT CLINICAL INFORMATION: Right hip pain COMPARISON: None TECHNIQUE: Two views of the right hip. AP pelvis one view FINDINGS: AP PELVIS: There is a total right hip prosthesis with prosthetic components in satisfactory alignment. The left hip joint space is maintained normal. The SI joints are symmetrical as well. No fractures involving the pelvic bone. RIGHT HIP: AP and frog-leg views right hip reveals total right hip prosthesis in alignment. No prosthetic loosening seen. The soft tissues are normal. XR/XR hip RT w [id number] IMPRESSION: Unremarkable AP pelvis exam. Total right hip prosthesis with prosthetic components in satisfactory alignment.
[2021-08-28 07:53] VITALS: BP 130/86; PULSE 98; PULSE 99; RESP 19; TEMP 37; O2SAT 100; O2SAT 96; BMI 21.7
--- NOTE | 2021-08-28 08:00 | ECG_ITS ---
Test Reason : chest pain Blood Pressure : / mmHG Vent. Rate : 086 BPM Atrial Rate : 086 BPM P-R Int : 142 ms QRS Dur : 092 ms QT Int : 408 ms P-R-T Axes : 054 -04 023 degrees QTc Int : 488 ms Normal sinus rhythm Prolonged QT Abnormal ECG When compared with ECG of 19-MAY-2012 11:19, No significant change was found Referred By: Deisy Prakash Electronically Signed By:ALFREDO LARSON MD
--- NOTE | 2021-08-28 08:06 | ED_ITS ---
HPI - General Adult General Chief complaint: Extremity Injury, Lower Stated complaint: R HIP PAIN S/P MISSTEP,NO DEFORMITY PER EMS Time Seen by Provider: 08/28/21 07:57 Source: patient and EMS Mode of arrival: EMS Limitations: no limitations History of Present Illness HPI narrative: Patient comes via EMS to the emergency room complaining of right hip pain. Patient states that approximately at 06:30 in the morning, patient was getting off the bus to go to work. Patient states he felt something popping and he was unable to get up. Patient complaining of pain in his hip, denies the head, no loss of consciousness. Patient denies being on blood thinners. Patient states that 14 months ago he had a right hip replacement. On arrival to the emergency room, patient complaining of epigastric burning and chest pain. Patient denies shortness of breath Related Data Home Medications Medication Instructions Recorded Confirmed celecoxib 200 mg capsule 1 cap PO BID PRN 08/04/21 08/04/21 duloxetine 30 mg capsule,delayed 1 cap PO BID 08/04/21 08/04/21 release hydroxyzine HCl 50 mg tablet 1 tab PO BID 08/04/21 08/04/21 lidocaine 5 % topical patch 1 patch TOPICAL DAILY 08/04/21 08/04/21 (Lidoderm) lisinopril 5 mg tablet 1 tab PO DAILY 08/04/21 08/04/21 melatonin 3 mg tablet 1 tab PO BEDTIME 08/04/21 08/04/21 omeprazole 20 mg capsule,delayed 1 cap PO QAM 08/04/21 08/04/21 release sertraline 100 mg tablet 1 tab DAILY 08/04/21 08/04/21 tizanidine 2 mg tablet 1 tab PO BID PRN 08/04/21 08/04/21 Previous Rx's Medication Instructions Recorded cyclobenzaprine 10 mg tablet 10 mg PO TID PRN #10 tab 08/28/21 ibuprofen 600 mg tablet 600 mg PO TID PRN #10 tab 08/28/21 Allergies Allergy/AdvReac Type Severity Reaction Status Date / Time bee pollen [BEE STINGS] Allergy Severe SWELLING Verified 08/04/21 13:28 Review of Systems Review of Systems: Constitutional : No Weight loss, No Fever, No Chills, No Night Sweats, No Fatigue, No Malaise ENT/Mouth : No Hearing loss, No Ear Pain, No Nasal Congestion, No Sinus Pain, No Hoarseness, No sore throat, No Rhinorrhea, No Swallowing Difficulty Eyes: No Eye Pain, No Swelling, No Redness, No Foreign Body, No Discharge, No Vision Changes Cardiovascular : Complaining of Chest Pain that started about 10 minutes ago, No SOB, No Dyspnea on Exertion, No Orthopnea, No Edema, No Palpitations Respiratory : No Cough, No Sputum, No Wheezing, No Smoke Exposure, No Dyspnea Gastrointestinal : No Nausea, No Vomiting, No Diarrhea, No Constipation, No abdominal Pain, No Hematochezia, No Melena, complaining of reflux sensation, esophageal burning Genitourinary : no irregular bleeding, No Dysuria, No Urinary Frequency, No He maturia, No Urinary Incontinence, No Urgency, No Flank Pain, No Urinary Flow Changes, No Hesitancy Musculoskeletal : Complaining of right hip pain, No Myalgias, No Joint Swelling Skin : No Skin Lesions, No rash Neuro : No Weakness, No Numbness, No Paresthesias, No Loss of Consciousness, No Dizziness, No Headache Psych : No Anxiety/Panic, No Depression, No SI/HI/AH/VH, No Social Issues, Heme/Lymph: No Bruising, No Bleeding,No Lymphadenopathy Endocrine : No Polyuria, No Polydipsia, No Temperature Intolerance [facility] Past Medical History Medical History EtOH dependence Hypertension Substance abuse Surgical History History of total right hip replacement Social History Social History Alcohol intake: current Patient Tobacco Use Status: Current everyday Tobacco user Substance Use Type: Heroin Advance Directives: No Advance Directives Information Provided: No Physical Exam ED Vital Signs: Vital Signs - 24 hr 08/28/21 07:53 08/28/21 11:08 Temperature 98.6 F 99.4 F Pulse Rate 99 86 Respiratory Rate 19 23 H Blood Pressure 144/88 H Pulse Oximetry 96 95 BMI result Body Mass Index 21.7 Const Other: Appearance: Alert. Oriented X3. No acute distress. Eyes: Pupils equal, round and reactive to light. ENT: Pharynx normal. Neck: Normal inspection. Neck supple. No lymph nodes noted. No crepitus CVS: Normal heart rate and rhythm. Pulses normal. Normal S1 and S2 Respiratory: No respiratory distress. Breath sounds normal. No Wheezing. No ral es Abdomen: Soft and nontender. No rigidity. No distention. good BS x4 Skin: Skin warm and dry. Normal skin color. Normal skin turgor. Extremities: No lower extremity edema. Patient unable to flex the right hip due to pain Neuro: Oriented X 3. No motor deficit. No sensory deficit. Moving all extermities. No slurred speech. Course Course Course Narrative: I discussed the x-ray with the patient, no acute findings. No dislocation. Also, troponin x2 negative. At this time, patient has discomfort in his right hip, no chest pain or shortness of breath Medical Decision Making Lab Data Result diagrams: 08/28/21 08:24 08/28/21 08:25 Labs: Lab Results 08/28/21 08/28/21 08/28/21 Range/Units 08:24 08:25 08:25 WBC 11.4 H (4.8-10.8) X10*3/uL RBC 3.90 L (4.60-5.80) X10*6/uL Hgb 12.2 L (14.0-18.0) g/dl Hct 35.4 L (42.0-52.0) % MCV 90.8 (80.0-98.0) fL MCH 31.3 (27.0-33.0) pg MCHC 34.5 (31.0-36.0) g/dl RDW 14.8 (11.0-16.0) % Plt Count 239 D (160-400) X10*3/uL MPV 8.9 L (9.4-12.4) fL Immature Gran % (Auto) 1.1 H (0.0-0.4) % Neut % (Auto) 79.9 H (45-73) % Lymph % (Auto) 12.1 L (20-40) % [place] % (Auto) 6.2 (2-11) % Eos % (Auto) 0.4 (0-4) % Baso % (Auto) 0.3 (0-2) % Lymph # (Auto) 1.4 (1.2-4.9) X10*3/uL [place] # (Auto) 0.7 (0.1-1.2) X10*3/uL Eos # (Auto) 0.0 (0.0-0.4) X10*3/uL Baso # (Auto) 0.0 (0.0-0.2) X10*3/uL Abs Immat Gran (auto) 0.12 H (0.00-0.03) X10*3/uL Absolute Neuts (auto) 9.1 H (2.0-8.3) x10*3/uL Absolute Nucleated RBC 0.000 (0.0-0.012) X10*3/uL Nucleated RBC % (auto) 0.0 (0.0-0.2) /100WBC Sodium 136 (135-145) mmol/L Potassium 3.5 (3.3-5.1) mmol/L Chloride 84 L (96-108) mmol/L Carbon Dioxide 40 H* D (22-29) mmol/L Anion Gap 16 (12-20) BUN 17 H D (9-16) mg/dL Creatinine 0.89 (0.5-1.4) mg/dL Estim Creat Clear Calc 95.1 Estimated GFR > 60 Random Glucose 106 (60-115) mg/dL Calcium 10.2 D (8.4-10.2) mg/dL Total Bilirubin 1.4 H (0.0-1.0) mg/dL Direct Bilirubin 0.5 (0.0-0.5) mg/dL AST 22 (5-37) U/L ALT 8 (0-40) U/L Alkaline Phosphatase 82 D (39-117) U/L Troponin I High Sens 9.2 (<3.5-35.0) ng/L Total Protein 6.9 (6.5-8.0) g/dL Albumin 4.1 (3.5-5.0) g/dL 08/28/21 Range/Units 11:07 WBC (4.8-10.8) X10*3/uL RBC (4.60-5.80) X10*6/uL Hgb (14.0-18.0) g/dl Hct (42.0-52.0) % MCV (80.0-98.0) fL MCH (27.0-33.0) pg MCHC (31.0-36.0) g/dl RDW (11.0-16.0) % Plt Count (160-400) X10*3/uL MPV (9.4-12.4) fL Immature Gran % (Auto) (0.0-0.4) % Neut % (Auto) (45-73) % Lymph % (Auto) (20-40) % [place] % (Auto) (2-11) % Eos % (Auto) (0-4) % Baso % (Auto) (0-2) % Lymph # (Auto) (1.2-4.9) X10*3/uL [place] # (Auto) (0.1-1.2) X10*3/uL Eos # (Auto) (0.0-0.4) X10*3/uL Baso # (Auto) (0.0-0.2) X10*3/uL Abs Immat Gran (auto) (0.00-0.03) X10*3/uL Absolute Neuts (auto) (2.0-8.3) x10*3/uL Absolute Nucleated RBC (0.0-0.012) X10*3/uL Nucleated RBC % (auto) (0.0-0.2) /100WBC Sodium (135-145) mmol/L Potassium (3.3-5.1) mmol/L Chloride (96-108) mmol/L Carbon Dioxide (22-29) mmol/L Anion Gap (12-20) BUN (9-16) mg/dL Creatinine (0.5-1.4) mg/dL Estim Creat Clear Calc Estimated GFR Random Glucose (60-115) mg/dL Calcium (8.4-10.2) mg/dL Total Bilirubin (0.0-1.0) mg/dL Direct Bilirubin (0.0-0.5) mg/dL AST (5-37) U/L ALT (0-40) U/L Alkaline Phosphatase (39-117) U/L Troponin I High Sens 10.4 (<3.5-35.0) ng/L Total Protein (6.5-8.0) g/dL Albumin (3.5-5.0) g/dL Imaging Data Hip and pelvis x-ray: Radiologist's impression: FINDINGS: AP PELVIS: There is a total right hip prosthesis with prosthetic components in satisfactory alignment. The left hip joint space is maintained normal. The SI joints are symmetrical as well. No fractures involving the pelvic bone. RIGHT HIP: AP and frog-leg views right hip reveals total right hip prosthesis in alignment. No prosthetic loosening seen. The soft tissues are normal.? XR/XR hip RT w [id number] IMPRESSION: Unremarkable AP pelvis exam. ? Total right hip prosthesis with prosthetic components in satisfactory alignment. ECG Data Attestation: I personally reviewed and interpreted this ECG as follows: (Sinus rhythm, heart rate 86, no ST segment depression or elevation, no T-wave inversion, QTC 488) Discharge Plan Discharge Clinical Impression: Acute hip pain, Atypical chest pain Patient Disposition: Home, Self-Care Instructions: Chest Pain (ED), Hip Pain (ED) Additional Instructions: Please follow-up with your primary care physician tomorrow. If you have any worsening or new symptoms, please return to the emergency room or call 911 Prescriptions: New ibuprofen 600 mg tablet 600 mg PO TID PRN (Reason: pain) Qty: 10 0RF cyclobenzaprine 10 mg tablet 10 mg PO TID PRN (Reason: muscle spasm) Qty: 10 0RF No Action celecoxib 200 mg capsule 1 cap PO BID PRN (Reason: Mild Pain (Scale Score 1-4)) 0RF tizanidine 2 mg tablet 1 tab PO BID PRN (Reason: Mild Pain (Scale Score 1-4)) 0RF sertraline 100 mg tablet 1 tab DAILY 0RF hydroxyzine HCl 50 mg tablet 1 tab PO BID 0RF melatonin 3 mg tablet 1 tab PO BEDTIME 0RF lidocaine [Lidoderm] 5 % adhesive patch,medicated 1 patch topical DAILY 0RF omeprazole 20 mg capsule,delayed release(DR/EC) 1 cap PO QAM 0RF lisinopril 5 mg tablet 1 tab PO DAILY 0RF duloxetine 30 mg capsule,delayed release(DR/EC) 1 cap PO BID 0RF
[2021-08-28] MEDS: Lidocaine HCl Viscous 2 % 15 ML SOLUTION MUCOUS MEM (08:16)
[2021-08-28] MEDS: Magnesium Hydrox/Alum Hydrox 30 ML ORAL.SUSP PO (08:16)
[2021-08-28 08:31] LABS: MANUAL DIFF FLAG NO
[2021-08-28] MEDS: Acetaminophen 325 MG TABLET 650 MG PO (08:35)
[2021-08-28 08:40] LABS: Basophils Percent Auto 0.3 % (0-2); Eosinophils Percent Auto 0.4 % (0-4); Hematocrit 35.4 % (42.0-52.0); Hemoglobin 12.2 g/dl (14.0-18.0); Imm Gran Abs Auto 0.12 X10*3/uL (0.00-0.03); Imm Gran Pct Auto 1.1 % (0.0-0.4); Lymphocytes Absolute Auto 1.4 X10*3/uL (1.2-4.9); Lymphocytes Percent Auto 12.1 % (20-40); Mean Corpuscular HGB Conc 34.5 g/dl (31.0-36.0); Mean Corpuscular Hemoglobin 31.3 pg (27.0-33.0); Mean Corpuscular Volume 90.8 fL (80.0-98.0); Mean Platelet Volume 8.9 fL (9.4-12.4); Monocytes Absolute Auto 0.7 X10*3/uL (0.1-1.2); Monocytes Percent Auto 6.2 % (2-11); Neutrophils Absolute Auto 9.1 x10*3/uL (2.0-8.3); Neutrophils Percent Auto 79.9 % (45-73); Platelet Count 239 X10*3/uL (160-400); Red Cell Distribution Width 14.8 % (11.0-16.0); White Blood Count 11.4 X10*3/uL (4.8-10.8)
[2021-08-28 08:57] LABS: Troponin-I High Sensitivity 9.2 ng/L (<3.5-35.0)
[2021-08-28 09:06] LABS: Alanine Aminotransferase 8 U/L (0-40); Albumin Level 4.1 g/dL (3.5-5.0); Alkaline Phosphatase 82 U/L (39-117); Anion Gap 16 (12-20); Aspartate Amino Transferase 22 U/L (5-37); Bilirubin Direct 0.5 mg/dL (0.0-0.5); Bilirubin Total 1.4 mg/dL (0.0-1.0); Blood Urea Nitrogen 17 mg/dL (9-16); Calcium 10.2 mg/dL (8.4-10.2); Carbon Dioxide 40 mmol/L (22-29); Chloride 84 mmol/L (96-108); Creatinine Clr Calc Pharmacy 95.1; Estimated Glomerular Filt Rate > 60; Glucose Random 106 mg/dL (60-115); Potassium 3.5 mmol/L (3.3-5.1); Sodium 136 mmol/L (135-145); Total Protein 6.9 g/dL (6.5-8.0)
[2021-08-28 11:08] VITALS: BP 144/88; PULSE 86; RESP 23; TEMP 37.4; O2SAT 95
[2021-08-28 11:35] LABS: Troponin-I High Sensitivity 10.4 ng/L (<3.5-35.0)
== END 2021-08-28 12:49 | disposition home or self-care (01) ==
PROVIDERS: Emergency Provider Emergency Medicine; PCP Internal Medicine
DX: M25.551 Pain in right hip (principal); R07.89 Other chest pain; R10.13 Epigastric pain; F11.90 Opioid use, unspecified, uncomplicated; F17.200 Nicotine dependence, unspecified, uncomplicated; Z71.6 Tobacco abuse counseling; Z79.899 Other long term (current) drug therapy
CPT/HCPCS: 36415; 73502; 80048; 80076; 84484; 85025; 93005; 99284

== ENCOUNTER 2021-10-17 10:00 | Outpatient (REF) | payer MEDICAID, SELFPAY ==
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
--- NOTE | 2021-10-17 12:23 | MHC.AU.MED ---
Medical Clearance for Hearing Instrumentation Date: 10/17/21 Patient Name: Yoshi Porter Date of : 1965 Referring Provider: Maximo Morfin MD We have seen your patient on 10/17/21 and have determined that they are a candidate for amplification (See accompanying report). Specifically, they would benefit from: Hearing aid use in the left ear There is a statute that addresses Medical Evaluation Requirements prior to fitting a patient with a hearing aid. According to [place] statute 265 CMR:6.03(1), (a) General. Except as provided in 265 CMR 6.03(1)(b), a hearing care professional shall not sell a hearing aid unless the prospective user has presented to the hearing care professional a written statement signed by a licensed physician that states that the patient's hearing loss has been medically evaluated and the patient may be considered a candidate for a hearing aid. The medical evaluation must have taken place within the preceding six months. Please note: Due to the [place] Statute referenced above, we cannot accept a signature other than that of a licensed physician. MOTORCOACH DRIVER and PA signatures cannot be accepted. I am in agreement with the above recommendation. There is no medical contraindication for hearing instrumentation. Physician Signature Date Physician Name (Printed)
--- NOTE | 2021-10-17 12:23 | MHC.AU.HAS ---
Hearing Aid Evaluation Date of Visit: 10/17/21 Historical Information: Description of Hearing: Right: Normal from 250-2000 Hz, sloping to moderate sensorineural hearing loss Left: Mild to profound mixed hearing loss Summary: Patient was seen for audiological evaluation (see separate report for details). Patient previously wore a left-sided ITC, obtained from [facility] in the early . It has since been lost. He is highly interested in getting a replacement. He would like to stay with the ITC style, with a volume wheel if possible. He would also like to stay with disposable batteries, as he travels by train frequently and worries he would not be able to plug in rechargeable ones. Patient could potentially be a candidate for a hearing aid in the right ear as well; however, he would like to stay with just the left side for the time being. Patient is also not interested in use of Bluetooth. 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
== END 2021-10-17 10:01 | disposition home or self-care (01) ==
LOC: HO.SH 10:00
PROVIDERS: Visit Provider Internal Medicine
DX: Z01.118 Encounter for examination of ears and hearing with other abnormal findings (principal); Z46.1 Encounter for fitting and adjustment of hearing aid; H90.A32 Mixed conductive and sensorineural hearing loss, unilateral, left ear with restricted hearing on the contralateral side
CPT/HCPCS: 92557; 92567; 92590; V5275

== ENCOUNTER 2021-11-20 10:21 | Outpatient (REF) | payer MEDICAID, SELFPAY ==
--- NOTE | 2021-11-20 10:56 | MHC.AU.HFL ---
Hearing Instrument Fitting- Adult- Left Ear Date of Visit: 11/20/21 Hearing Instrument(s) Dispensed: Left Ear: Social Worker Psychiatric: Ezuza Model: CLEARo [id number] NW O Serial Number: [id number] Repair Warranty: 12/09/2024 Loss and Damage Warranty: 12/09/2024 Battery Size: 312 Type of Wax Guard: CeruStop Summary of Fitting: Feedback manager fitness run. Verifit performed and levels adjusted to better reach targets. Patient was pleased with the sound and did not feel any additional adjustments were needed. Volume wheel is activated. Hearing aid is non-wireless, as patient has no interest in pairing it to a smartphone. Hearing aid care and maintenance were discussed and demonstrated. Recommendations: Patient is an experienced hearing aid user. He will call for follow-up if needed. Diagnosis Code(s): Primary Diagnosis: H90.A32 Mixed HL, Unilateral, Left Ear, W/Restricted Contralateral Signature: Provider: Mark Rm, [facility]
== END 2021-11-20 10:22 | disposition home or self-care (01) ==
LOC: HO.HAP 10:21
PROVIDERS: PCP Internal Medicine; Visit Provider Internal Medicine
DX: Z46.1 Encounter for fitting and adjustment of hearing aid (principal); H90.A32 Mixed conductive and sensorineural hearing loss, unilateral, left ear with restricted hearing on the contralateral side
CPT/HCPCS: V5011; V5020; V5241; V5255; V5266

== ENCOUNTER 2022-01-02 05:37 | Emergency (ER) | payer MEDICAID, SELFPAY ==
[2022-01-02 05:53] VITALS: BP 131/78; PULSE 71; RESP 16; TEMP 36.6; O2SAT 99; BMI 23.0
[2022-01-02 07:03] VITALS: BP 125/73; PULSE 63; RESP 16; O2SAT 94
--- NOTE | 2022-01-02 07:11 | PC.NURSE ---
pt reports hx of blood clots. he contacted his pcp's office and they told him to come to the ed. pt states he is unable to put any pressure on his right leg because it is very pain full. he reports the same symptoms from previous clots.
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
--- NOTE | 2022-01-02 07:43 | PC.NURSE ---
PT EVALUATED BY PROVIDER PLAN IS FOR DC HOME. PT AGREEABLE TO PLAN. PT AMBULATORY, GAIT STEADY. NO FACIAL GRIMACING OR S/S OF DISTRESS. +CMS
== END 2022-01-02 07:44 | disposition home or self-care (01) ==
PROVIDERS: Emergency Provider Emergency Medicine Emergency Medical Services; PCP Internal Medicine
DX: S83.91XA Sprain of unspecified site of right knee, initial encounter (principal); R20.0 Anesthesia of skin; M25.561 Pain in right knee; X58.XXXA Exposure to other specified factors, initial encounter; Y93.9 Activity, unspecified; Y92.9 Unspecified place or not applicable; Y99.9 Unspecified external cause status; Z79.899 Other long term (current) drug therapy
CPT/HCPCS: 99282; 99284

== ENCOUNTER 2022-01-02 11:08 | Outpatient (REF) | payer MEDICAID, SELFPAY | END 2022-01-02 11:09 | disposition home or self-care (01) | LOC: HO.HAP 11:08 | PROVIDERS: Visit Provider Internal Medicine | DX: Z13.89 Encounter for screening for other disorder (principal) ==

== ENCOUNTER 2022-03-23 12:29 | Outpatient (REF) | payer MEDICAID, SELFPAY | END 2022-03-23 12:30 | disposition home or self-care (01) | LOC: HO.HOSX 12:29 | PROVIDERS: Visit Provider Physician Assistant | DX: Z13.89 Encounter for screening for other disorder (principal) ==

== ENCOUNTER → 2022-07-08 14:40 | Outpatient (BNVA) | payer MEDICAID, SELFPAY | PROVIDERS: PCP Internal Medicine; Visit Provider Anesthesiology | DX: M96.1 Postlaminectomy syndrome, not elsewhere classified (principal); G89.4 Chronic pain syndrome; M54.50 Low back pain, unspecified; I10 Essential (primary) hypertension; M10.9 Gout, unspecified; F10.20 Alcohol dependence, uncomplicated; F11.20 Opioid dependence, uncomplicated; Z96.641 Presence of right artificial hip joint; Z79.899 Other long term (current) drug therapy | CPT/HCPCS: 99202 ==

== ENCOUNTER 2022-10-03 17:29 | Emergency (ER) | payer MEDICAID, SELFPAY ==
[2022-10-03 17:45] VITALS: BP 110/66; PULSE 66; RESP 18; TEMP 36.6; O2SAT 97; BMI 25.0
--- NOTE | 2022-10-03 18:22 | ED_ITS ---
HPI - Alcohol General Chief Complaint: ETOH/Substance Use Stated Complaint: ETOH Time Seen by Provider: 10/03/22 17:49 Source: patient Mode of arrival: EMS Limitations: no limitations History of Present Illness HPI narrative: Patient comes to the emergency room via ambulance from a [facility]dc. Patient was found intoxicated in a [facility], ambulance was called and brought to emergency room. Patient has no complaints. Patient did not fall. Related Data Home Medications Medication Instructions Recorded Confirmed celecoxib 200 mg capsule 1 cap PO BID PRN Mild Pain (Scale 08/04/21 08/04/21 Score 1-4) duloxetine 30 mg capsule,delayed 1 cap PO BID 08/04/21 08/04/21 release hydroxyzine HCl 50 mg tablet 1 tab PO BID 08/04/21 08/04/21 lidocaine 5 % topical patch 1 patch topical DAILY 08/04/21 08/04/21 (Lidoderm) lisinopril 5 mg tablet 1 tab PO DAILY 08/04/21 08/04/21 melatonin 3 mg tablet 1 tab PO BEDTIME 08/04/21 08/04/21 omeprazole 20 mg capsule,delayed 1 cap PO QAM 08/04/21 08/04/21 release sertraline 100 mg tablet 1 tab DAILY 08/04/21 08/04/21 tizanidine 2 mg tablet 1 tab PO BID PRN Mild Pain (Scale 08/04/21 08/04/21 Score 1-4) Previous Rx's Medication Instructions Recorded cyclobenzaprine 10 mg tablet 10 mg PO TID PRN muscle spasm #10 08/28/21 tabs ibuprofen 600 mg tablet 600 mg PO TID PRN pain #10 tabs 08/28/21 Allergies Allergy/AdvReac Type Severity Reaction Status Date / Time bee pollen [BEE STINGS] Allergy Severe SWELLING Verified 07/08/22 14:50 Review of Systems Review of Systems: Constitutional : No Weight loss, No Fever, No Chills, No Night Sweats, No Fatigue, No Malaise ENT/Mouth : No Hearing loss, No Ear Pain, No Nasal Congestion, No Sinus Pain, No Hoarseness, No sore throat, No Rhinorrhea, No Swallowing Difficulty Eyes: No Eye Pain, No Swelling, No Redness, No Foreign Body, No Discharge, No Vision Changes Cardiovascular : No Chest Pain, No SOB, No Dyspnea on Exertion, No Orthopnea, No Edema, No Palpitations Respiratory : No Cough, No Sputum, No Wheezing, No Smoke Exposure, No Dyspnea Gastrointestinal : No Nausea, No Vomiting, No Diarrhea, No Constipation, No abdominal Pain, No Hematochezia, No Melena Genitourinary : no irregular bleeding, No Dysuria, No Urinary Frequency, No Hematuria, No Urinary Incontinence, No Urgency, No Flank Pain, No Urinary Flow Changes, No Hesitancy Musculoskeletal : No joint pain, No Myalgias, No Joint Swelling Skin : No Skin Lesions, No rash Neuro : No Weakness, No Numbness, No Paresthesias, No Loss of Consciousness, No Dizziness, No Headache Psych : No Anxiety/Panic, No Depression, No SI/HI/AH/VH, admits to drinking alcohol Heme/Lymph: No Bruising, No Bleeding,No Lymphadenopathy Endocrine : No Polyuria, No Polydipsia, No Temperature Intolerance PMFSH Past Medical History Medical History EtOH dependence Hypertension Substance abuse Surgical History History of total right hip replacement Social History Social History Alcohol intake: current Alcohol intake frequency: does not drink Patient Tobacco Use Status: Current everyday Tobacco user Substance Use Type: Heroin Advance Directives: No Advance Directives Information Provided: No Physical Exam ED Vital Signs: Vital Signs - 24 hr 10/03/22 17:45 Temperature 98 F Pulse Rate 66 Respiratory Rate 18 Blood Pressure 110/66 Pulse Oximetry 97 BMI result Body Mass Index 25.0 Const Other: Appearance: Alert. Oriented X3. No acute distress. Eyes: Pupils equal, round and reactive to light. ENT: Pharynx normal. Neck: Normal inspection. Neck supple. No lymph nodes noted. No crepitus CVS: Normal heart rate and rhythm. Pulses normal. Normal S1 and S2 Respiratory: No respiratory distress. Breath sounds normal. No Wheezing. No rales Abdomen: Soft and nontender. No rigidity. No distention. Skin: Skin warm and dry. Normal skin color. Normal skin turgor. Extremities: No lower extremity edema. No Lacerations. No Rash Neuro: Oriented X 3. No motor deficit. No sensory deficit. Moving all extremities. No slurred speech. CN 2 through 12 grossly intact Psych: calm, cooperative, normal affect Course Course Course Narrative: -patient has no medical complaints, alert and oriented x4 Medical Decision Making Medical Decision Making [facility] Narrative: -patient is slightly intoxicated, alert and oriented x4 -plan: Metabolize to freedom and discharge -2112, patient alert and oriented x4, ambulatory without assistance. Patient was picked up by family, patient will be going to a fdc Differential Diagnosis Differential Diagnoses: The differential diagnosis associated with the presentation includes (Alcohol intoxication, substance abuse) Discharge Plan Discharge Clinical Impression: Acute alcohol abuse Patient Disposition: Home, Self-Care Instructions: Abuse of Alcohol (ED) Additional Instructions: Please follow-up with your primary care physician tomorrow. If you have any worsening or new symptoms, please return to the emergency room or call 911 Prescriptions: No Action celecoxib 200 mg capsule 1 cap PO BID PRN (Reason: Mild Pain (Scale Score 1-4)) tizanidine 2 mg tablet 1 tab PO BID PRN (Reason: Mild Pain (Scale Score 1-4)) sertraline 100 mg tablet 1 tab DAILY hydroxyzine HCl 50 mg tablet 1 tab PO BID melatonin 3 mg tablet 1 tab PO BEDTIME lidocaine [Lidoderm] 5 % adhesive patch,medicated 1 patch topical DAILY omeprazole 20 mg capsule,delayed release(DR/EC) 1 cap PO QAM lisinopril 5 mg tablet 1 tab PO DAILY duloxetine 30 mg capsule,delayed release(DR/EC) 1 cap PO BID ibuprofen 600 mg tablet 600 mg PO TID PRN (Reason: pain) Qty: 10 0RF cyclobenzaprine 10 mg tablet 10 mg PO TID PRN (Reason: muscle spasm) Qty: 10 0RF
--- NOTE | 2022-10-03 19:08 | PC.NURSE ---
Patient calm and cooperative, able to ambulate to bathroom with standby assist.
--- NOTE | 2022-10-03 21:15 | PC.NURSE ---
Nacho had been ambulating around the department for the last thirty minutes, requesting to be discharged. He states that he has a ride and that a jail is holding its doors open for him. I assisted the pt with calling the jail so he could inform themt hat he was returning. Dwain BELTRÁN aware that pt is ambulating safely and steadily. He has taken PO food and fluids without difficulty. SPeech appropriate. Pt is cooperative and even joking with staff. I assisted pt to waiting room at this time.
== END 2022-10-04 00:34 | disposition home or self-care (01) ==
PROVIDERS: Emergency Provider Emergency Medicine
DX: F10.10 Alcohol abuse, uncomplicated (principal); Y90.9 Presence of alcohol in blood, level not specified; I10 Essential (primary) hypertension; F19.10 Other psychoactive substance abuse, uncomplicated; F11.20 Opioid dependence, uncomplicated; Z79.899 Other long term (current) drug therapy
CPT/HCPCS: 99284

== ENCOUNTER 2022-11-04 14:10 | Emergency (ER) | payer MEDICAID, SELFPAY ==
--- NOTE | ~2022-11-04 | CT_ITS ---
EXAMINATION: CTA CHEST PE STUDY CLINICAL INFORMATION: dyspnea recent pe COMPARISON: No pertinent prior studies are available for comparison. TECHNIQUE: Prior to contrast administration, noncontrast localization images were obtained. After the administration of 65 mL of Omnipaque nonionic IV contrast, contiguous thin slice helical images were obtained through the thorax. Reformatted MIP images in the coronal and sagittal planes were obtained at the acquisition workstation. This CT examination was performed using dose optimization techniques as appropriate, variously including the following: *Automated exposure control *Adjustment of mA and/or kV according to patient size (this includes techniques or standardized protocols for targeted exams where dose is matched to indication/reason for exam; i.e. extremities or head) *Use of iterative reconstruction technique DLP: 229 mGy-cm. FINDINGS: The bolus timing on this study was acceptable for visualization of the pulmonary arterial tree. Filling defects are seen within the subsegmental pulmonary arteries in the medial left lower lobe and to less extent in the medial right lower lobe. By report patient has history of recent PEs. The most recent prior chest CT I have is noncontrast CT scan of the chest from 08/05/2021. The age of these pulmonary emboli remain indeterminate otherwise. Minimal dependent atelectatic change. No abnormal pulmonary nodules or masses are appreciated. No significant hilar or mediastinal adenopathy. There is no evidence of pleural effusion or pneumothorax. Multiple right-sided rib plates are seen suggesting sequela of prior right-sided trauma and multiple rib fractures. The heart is normal in size. No evidence of ventricular septal bowing or right heart strain. Coronary artery calcification is seen. Vascular calcification is present in the aorta. There is a focal contour deformity along the inferior aspect of the aortic arch with focal wall calcification seen to this area of focal outpouching. The aorta in this region measures approximately 3.2 cm in maximal diameter which is not significantly changed when measured in similar orientation on the 08/05/[address] scan. This is a unusual location for a saccular aneurysm formation. Sequela of prior aortic injury would be suspected. The contour deformity and degree of wall calcification however appears similar to the 08/05/2021 study suggesting remote aortic injury. This could be clinically correlated and correlated with a history of his prior trauma/multiple rib fractures. There is abnormal thickening to the distal esophagus. Otherwise the mediastinum is unremarkable. There is no pericardial effusion or pericardial thickening. Limited evaluation of the upper abdominal viscera is unremarkable. CT/CT angio chest PE protocol IMPRESSION: 1. There are small filling defects within subsegmental pulmonary arteries in the medial left lower lobe and to a lesser extent in the medial right lower lobe consistent with subsegmental pulmonary emboli. By report patient has history of 'recent PEs'. The age of these emboli is indeterminate otherwise. 2. There is a focal contour deformity along the inferior aspect of the aortic arch with focal wall calcification. The degree of contour deformity and degree of wall calcification appears similar to the 08/05/[address] scan. This is a unusual location for a saccular aneurysm formation. Sequela of prior aortic injury would be suspected. This could be clinically correlated and correlated with a history of his prior trauma/multiple rib fractures. VTE: Positive This critical result was discussed with Dr. Lee at 11/04/2022 5:49 PM and it was ascertained that the content and urgency of the report was understood at the time of direct communication.
--- NOTE | ~2022-11-04 | XR_ITS ---
EXAMINATION: XR CHEST CLINICAL INFORMATION: Chest pain COMPARISON: 08/03/2021 TECHNIQUE: Frontal view of the chest was obtained. FINDINGS: Postsurgical changes to several right ribs noted. Lungs clear. No pneumothorax. Heart and pulmonary vessels are normal. No congestive change. classroom monitor leads present. XR/XR chest 1V IMPRESSION: No active disease.
--- NOTE | 2022-11-04 14:13 | ECG_ITS ---
Test Reason : CHEST PAIN Blood Pressure : / mmHG Vent. Rate : 093 BPM Atrial Rate : 093 BPM P-R Int : 140 ms QRS Dur : 086 ms QT Int : 364 ms P-R-T Axes : 057 016 048 degrees QTc Int : 452 ms Normal sinus rhythm Normal ECG When compared with ECG of 28-AUG-2021 09:04, No significant change was found Referred By: Cas Iglesias Electronically Signed By:Ahmet Lenz
--- NOTE | 2022-11-04 14:14 | ED_ITS ---
HPI - General Adult General Chief complaint: Chest Pain <MARTHA Rabago - Last Filed: 11/04/22 14:18> Stated complaint: chest pain <MARTHA Rabago - Last Filed: 11/04/22 14:18> Time Seen by Provider: 11/04/22 14:48 <MARTHA Rabago - Last Filed: 11/04/22 14:18> Source: patient <Javan Lee DO - Last Filed: 11/04/22 19:48> Mode of arrival: ambulatory <Javan Lee DO - Last Filed: 11/04/22 19:48> Limitations: no limitations <Javan Lee DO - Last Filed: 11/04/22 19:48> History of Present Illness HPI narrative: 49-year-old male recently diagnosed PE at another local hospital on Xarelto at this time he states he is taking he does have history of chronic pain and back pain opiate use disorder alcohol abuse disorder and history of depress ion. Patient states he has been having chest pain evaluation. PATIENT USING LOW GRAVELLY VOICE HE DOES ADMIT TO DRINKING SINCE BEING DISCHARGED YESTERDAY HE STATES HE HAS BEEN TAKING HIS XARELTO HE DENIES FEVERS HER COUGH PATIENT IS BROUGHT BACK IMMEDIATELY FOR EVALUATION. PATIENT HAS COMPLETELY NORMAL VITALS. <Javan Lee DO - Last Filed: 11/04/22 19:48> Onset (ago): day(s) <Javan Lee DO - Last Filed: 11/04/22 19:48> Related Data Home medications: Home Medications Medication Instructions Recorded Confirmed duloxetine 30 mg capsule,delayed 1 cap PO BID 08/04/21 11/04/22 release acamprosate 333 mg tablet,delayed 666 mg PO TID 11/04/22 11/04/22 release apixaban 5 mg (74 tabs) tablets in 5 mg PO BID 11/04/22 11/04/22 a dose pack (Eliquis DVT-PE Treat 30D Start) apixaban 5 mg (74 tabs) tablets in 10 mg PO BID 11/04/22 11/04/22 a dose pack (Eliquis DVT-PE Treat 30D Start) folic acid 1 mg tablet 1 mg PO DAILY 11/04/22 11/04/22 gabapentin 300 mg capsule 300 mg PO BID 11/04/22 11/04/22 lisinopril 10 mg tablet 10 mg PO DAILY 11/04/22 11/04/22 melatonin 5 mg tablet 5 mg BEDTIME 11/04/22 11/04/22 multivitamin with folic acid 400 1 tab PO DAILY 11/04/22 11/04/22 mcg tablet (Tab-A-Harper) pantoprazole 40 mg tablet,delayed 40 mg PO BID 11/04/22 11/04/22 release thiamine HCl (vitamin B1) 100 mg 100 mg PO DAILY 11/04/22 11/04/22 tablet <MARTHA Rabago Last Filed: 11/04/22 14:18> Allergies/adverse reactions: Allergies Allergy/AdvReac Type Severity Reaction Status Date / Time bee pollen [BEE STINGS] Allergy Severe SWELLING Verified 11/04/22 14:19 <MARTHA Rabago Last Filed: 11/04/22 14:18> Review of Systems Review of Systems: Review of systems: General: Patient denies any fever chills recent illness or falls Musculoskeletal: Denies back pain or body aches or other injuries HEENT: denies headache, runny nose, ear pain Respiratory: denies shortness of breath, cough Cardiovascular: CHEST PAIN NO palpitations : denies dysuria, frequency Abdomen: no nausea vomiting denies abdominal pain Extremities: no swelling, no pain Skin: no diaphoresis <Javan Lee DO - Last Filed: 11/04/22 19:48> Yes all other systems are reviewed and are negative <Javan Lee DO - Last Filed: 11/04/22 19:48> [facility] Past Medical History Medical History: Medical History EtOH dependence Hypertension Substance abuse <MARTHA Rabago Last Filed: 11/04/22 14:18> Surgical History: Surgical History History of total right hip replacement <MARTHA Rabago Last Filed: 11/04/22 14:18> Social History Social History: Social History Alcohol intake: current Alcohol intake frequency: 0-2 drinks per day Patient Tobacco Use Status: Current everyday Tobacco user Substance Use Type: Heroin Advance Directives: No Advance Directives Information Provided: Yes <MARTHA Rabago Last Filed: 11/04/22 14:18> Physical Exam ED Vital Signs: Vital Signs - 24 hr 11/04/22 14:16 11/04/22 17:19 Temperature 95.3 F L Pulse Rate 100 74 Respiratory Rate 20 12 Blood Pressure 102/67 125/71 Pulse Oximetry 99 96 Oxygen Delivery Method Room Air Room Air BMI result Body Mass Index 22.3 <MARTHA Rabago Last Filed: 11/04/22 14:18> Vital Signs - 24 hr 11/04/22 14:16 11/04/22 17:19 Temperature 95.3 F L Pulse Rate 100 74 Respiratory Rate 20 12 Blood Pressure 102/67 125/71 Pulse Oximetry 99 96 Oxygen Delivery Method Room Air Room Air BMI result Body Mass Index 22.3 <Javan Lee DO - Last Filed: 11/04/22 19:48> General: Well-appearing well-nourished in no signs of distress HEENT: Normocephalic atraumatic Neck: No signs of JVD, no masses no tenderness or lymphadenopathy Cardiovascular: Regular rate and rhythm Respiratory: Clear to auscultation bilaterally Abdomen: Soft nontender no masses Extremities: Normal pedal pulses no signs of edema Skin: Dry warm no rashes Back: No tenderness full ROM <DO Lilibeth Lane Last Filed: 11/04/22 19:48> Course Course Course Narrative: This is an RME: Additional HPI, ROS, PE not included below will be deferred to primary provider. 57 year old male with recent discharge from [facility] after two day admission for PE with CP. Patient reports he was started on blood thinners and he has been medication compliant. Taking eliquis. Substernal chest pressure that does not radiate. Patient additionally endorses hot flashes and malaise. Concerning for posterior wall infarct. PE: diaphoretic, tachycardic and hypotensive Plan: labs, imaging, EKG <MARTHA Rabago Last Filed: 11/04/22 14:18> Medications Administered Discontinued Medications Generic Name Dose Route Start Last Admin Trade Name Freq PRN Reason Stop Dose Admin Benzonatate 100 mg 11/04/22 14:54 11/04/22 15:19 Benzonatate 100 Mg Capsule PO 11/04/22 14:55 100 mg ONCE ONE Administration Dexamethasone Sodium Phosphate 10 mg 11/04/22 14:54 11/04/22 15:19 Dexamethasone Sod Phosphate 10 Mg/Ml Vial IVPUSH 11/04/22 14:55 10 mg ONCE ONE Administration Sodium Chloride 1,000 mls @ 999 mls/hr 11/04/22 15:00 11/04/22 18:58 Ns IV 11/04/22 16:00 Infused .Q1H1M JEAN Infusion Iohexol 100 ml 11/04/22 16:16 11/04/22 16:21 Iohexol 350 Mg/Ml 100 Ml Infus..Btl IV 11/04/22 16:17 65 ml ONCE ONE Administration Ketorolac Tromethamine 15 mg 11/04/22 14:54 11/04/22 15:19 Ketorolac Tromethamine 15 Mg/Ml Vial IVPUSH 11/04/22 14:55 15 mg ONCE ONE Administration Morphine Sulfate 6 mg 11/04/22 14:54 11/04/22 15:19 Morphine Sulfate 10 Mg/Ml Cartridge IVPUSH 11/04/22 14:55 6 mg ONCE ONE Administration Protocol <MARTHA Rabago - Last Filed: 11/04/22 14:18> Medications Administered Discontinued Medications Generic Name Dose Route Start Last Admin Trade Name Freq PRN Reason Stop Dose Admin Benzonatate 100 mg 11/04/22 14:54 11/04/22 15:19 Benzonatate 100 Mg Capsule PO 11/04/22 14:55 100 mg ONCE ONE Administration Dexamethasone Sodium Phosphate 10 mg 11/04/22 14:54 11/04/22 15:19 Dexamethasone Sod Phosphate 10 Mg/Ml Vial IVPUSH 11/04/22 14:55 10 mg ONCE ONE Administration Sodium Chloride 1,000 mls @ 999 mls/hr 11/04/22 15:00 11/04/22 18:58 Ns IV 11/04/22 16:00 Infused .Q1H1M JEAN Infusion Iohexol 100 ml 11/04/22 16:16 11/04/22 16:21 Iohexol 350 Mg/Ml 100 Ml Infus..Btl IV 11/04/22 16:17 65 ml ONCE ONE Administration Ketorolac Tromethamine 15 mg 11/04/22 14:54 11/04/22 15:19 Ketorolac Tromethamine 15 Mg/Ml Vial IVPUSH 11/04/22 14:55 15 mg ONCE ONE Administration Morphine Sulfate 6 mg 11/04/22 14:54 11/04/22 15:19 Morphine Sulfate 10 Mg/Ml Cartridge IVPUSH 11/04/22 14:55 6 mg ONCE ONE Administration Protocol <Javan Lee DO - Last Filed: 11/04/22 19:48> Medical Decision Making Medical Decision Making MDM Narrative: 49-year-old male discharged from [facility] yesterday am sure the patient came to a different hospital 1 day later but is here now complaining of chest pain shortness of breath and recently had a PE. He states he is now on Eliquis. I will repeat the CTA I will send off labs: Troponin. 1754 CTA shows old clots nothing new and a stable abnormal aorta. He is sleeping in the room comfortably. I explained the labs and CT's He has no signs of strain stable vitals during the entire visit. I explained that he is going home and then asked to go to [facility] for detox. I put in the consult to the care team 1946Seen by care team no bed is available tonight I will send home. <Javan Lee DO - Last Filed: 11/04/22 19:48> Differential Diagnosis Differential Diagnoses: The differential diagnosis associated with the presentation includes <Javan Lee DO - Last Filed: 11/04/22 19:48> Concern for ACS CHF pneumonia or repeat P. <Javan Lee DO - Last Filed: 11/04/22 19:48> Admission/Observation Consideration of admission/observation: Escalation of care including admission/observation considered <Javan Lee DO - Last Filed: 11/04/22 19:48> Consult Healthcare Provider Management of the patient was discussed with: Hospitalist <Javan Lee DO - Last Filed: 11/04/22 19:48> Lab Data [facility] Lab Attestation statement: I reviewed the patient's lab results. <Javan Lee DO - Last Filed: 10/11 01/01 19:48> Result Diagrams: 11/04/22 14:28 11/04/22 14:28 <MARTHA Rabago - Last Filed: 11/04/22 14:18> Labs: Lab Results 11/04/22 11/04/22 11/04/22 Range/Units 14:28 14:28 14:28 WBC 11.9 H (4.8-10.8) X10*3/uL RBC 4.07 L (4.60-5.80) X10*6/uL Hgb 11.4 L (14.0-18.0) g/dl Hct 36.0 L (42.0-52.0) % MCV 88.5 (80.0-98.0) fL MCH 28.0 (27.0-33.0) pg MCHC 31.7 (31.0-36.0) g/dl RDW 14.4 (11.0-16.0) % Plt Count 300 D (160-400) X10*3/uL MPV 9.9 (9.4-12.4) fL Immature Gran % (Auto) 0.7 H (0.0-0.4) % Neut % (Auto) 79.5 H (45-73) % Lymph % (Auto) 11.2 L (20-40) % [place] % (Auto) 7.2 (2-11) % Eos % (Auto) 0.9 (0-4) % Baso % (Auto) 0.5 (0-2) % Lymph # (Auto) 1.3 (1.2-4.9) X10*3/uL [place] # (Auto) 0.9 (0.1-1.2) X10*3/uL Eos # (Auto) 0.1 (0.0-0.4) X10*3/uL Baso # (Auto) 0.1 (0.0-0.2) X10*3/uL Abs Immat Gran (auto) 0.08 H (0.00-0.03) X10*3/uL Absolute Neuts (auto) 9.5 H (2.0-8.3) x10*3/uL Absolute Nucleated RBC 0.000 (0.0-0.012) X10*3/uL Nucleated RBC % (auto) 0.0 (0.0-0.2) /100WBC Sodium 143 (135-145) mmol/L Potassium 4.5 D (3.3-5.1) mmol/L Chloride 100 (96-108) mmol/L Carbon Dioxide 31 H (22-29) mmol/L Anion Gap 17 (12-20) BUN 21 H (9-16) mg/dL Creatinine 1.29 (0.5-1.4) mg/dL Estim Creat Clear Calc 64.0 Estimated GFR 57 Random Glucose 100 (60-115) mg/dL Calcium 9.6 (8.4-10.2) mg/dL Magnesium 2.0 (1.6-2.6) mg/dL Total Bilirubin 0.9 (0.0-1.0) mg/dL AST 27 (5-37) U/L ALT 15 (0-40) U/L Alkaline Phosphatase 87 (39-117) U/L Troponin I High Sens 6.1 (<3.5-35.0) ng/L B-Natriuretic Peptide (<100) pg/mL Total Protein 7.2 (6.5-8.0) g/dL Albumin 4.5 (3.5-5.0) g/dL Ethyl Alcohol mg/dL COVID-19 (CRUZ) (Negative) COVID-19 Clin Com Influenza Type A (REAGAN) (Negative) Influenza Type B (REAGAN) (Negative) Influenza A & B Note 11/04/22 11/04/22 11/04/22 Range/Units 14:28 14:28 14:28 WBC (4.8-10.8) X10*3/uL RBC (4.60-5.80) X10*6/uL Hgb (14.0-18.0) g/dl Hct (42.0-52.0) % MCV (80.0-98.0) fL MCH (27.0-33.0) pg MCHC (31.0-36.0) g/dl RDW (11.0-16.0) % Plt Count (160-400) X10*3/uL MPV (9.4-12.4) fL Immature Gran % (Auto) (0.0-0.4) % Neut % (Auto) (45-73) % Lymph % (Auto) (20-40) % [place] % (Auto) (2-11) % Eos % (Auto) (0-4) % Baso % (Auto) (0-2) % Lymph # (Auto) (1.2-4.9) X10*3/uL [place] # (Auto) (0.1-1.2) X10*3/uL Eos # (Auto) (0.0-0.4) X10*3/uL Baso # (Auto) (0.0-0.2) X10*3/uL Abs Immat Gran (auto) (0.00-0.03) X10*3/uL Absolute Neuts (auto) (2.0-8.3) x10*3/uL Absolute Nucleated RBC (0.0-0.012) X10*3/uL Nucleated RBC % (auto) (0.0-0.2) /100WBC Sodium (135-145) mmol/L Potassium (3.3-5.1) mmol/L Chloride (96-108) mmol/L Carbon Dioxide (22-29) mmol/L Anion Gap (12-20) BUN (9-16) mg/dL Creatinine (0.5-1.4) mg/dL Estim Creat Clear Calc Estimated GFR Random Glucose (60-115) mg/dL Calcium (8.4-10.2) mg/dL Magnesium (1.6-2.6) mg/dL Total Bilirubin (0.0-1.0) mg/dL AST (5-37) U/L ALT (0-40) U/L Alkaline Phosphatase (39-117) U/L Troponin I High Sens (<3.5-35.0) ng/L B-Natriuretic Peptide 53 (<100) pg/mL Total Protein (6.5-8.0) g/dL Albumin (3.5-5.0) g/dL Ethyl Alcohol < 10 mg/dL COVID-19 (CRUZ) Negative (Negative) COVID-19 Clin Com See Note Influenza Type A (REAGAN) (Negative) Influenza Type B (REAGAN) (Negative) Influenza A & B Note 11/04/22 11/04/22 Range/Units 15:44 15:44 WBC (4.8-10.8) X10*3/uL RBC (4.60-5.80) X10*6/uL Hgb (14.0-18.0) g/dl Hct (42.0-52.0) % MCV (80.0-98.0) fL MCH (27.0-33.0) pg MCHC (31.0-36.0) g/dl RDW (11.0-16.0) % Plt Count (160-400) X10*3/uL MPV (9.4-12.4) fL Immature Gran % (Auto) (0.0-0.4) % Neut % (Auto) (45-73) % Lymph % (Auto) (20-40) % [place] % (Auto) (2-11) % Eos % (Auto) (0-4) % Baso % (Auto) (0-2) % Lymph # (Auto) (1.2-4.9) X10*3/uL [place] # (Auto) (0.1-1.2) X10*3/uL Eos # (Auto) (0.0-0.4) X10*3/uL Baso # (Auto) (0.0-0.2) X10*3/uL Abs Immat Gran (auto) (0.00-0.03) X10*3/uL Absolute Neuts (auto) (2.0-8.3) x10*3/uL Absolute Nucleated RBC (0.0-0.012) X10*3/uL Nucleated RBC % (auto) (0.0-0.2) /100WBC Sodium (135-145) mmol/L Potassium (3.3-5.1) mmol/L Chloride (96-108) mmol/L Carbon Dioxide (22-29) mmol/L Anion Gap (12-20) BUN (9-16) mg/dL Creatinine (0.5-1.4) mg/dL Estim Creat Clear Calc Estimated GFR Random Glucose (60-115) mg/dL Calcium (8.4-10.2) mg/dL Magnesium (1.6-2.6) mg/dL Total Bilirubin (0.0-1.0) mg/dL AST (5-37) U/L ALT (0-40) U/L Alkaline Phosphatase (39-117) U/L Troponin I High Sens (<3.5-35.0) ng/L B-Natriuretic Peptide (<100) pg/mL Total Protein (6.5-8.0) g/dL Albumin (3.5-5.0) g/dL Ethyl Alcohol mg/dL COVID-19 (CRUZ) Negative (Negative) COVID-19 Clin Com See Note Influenza Type A (REAGAN) Negative (Negative) Influenza Type B (REAGAN) Negative (Negative) Influenza A & B Note See Note <MARTHA Rabago - Last Filed: 11/04/22 14:18> Lab Results 11/04/22 11/04/22 11/04/22 Range/Units 14:28 14:28 14:28 WBC 11.9 H (4.8-10.8) X10*3/uL RBC 4.07 L (4.60-5.80) X10*6/uL Hgb 11.4 L (14.0-18.0) g/dl Hct 36.0 L (42.0-52.0) % MCV 88.5 (80.0-98.0) fL MCH 28.0 (27.0-33.0) pg MCHC 31.7 (31.0-36.0) g/dl RDW 14.4 (11.0-16.0) % Plt Count 300 D (160-400) X10*3/uL MPV 9.9 (9.4-12.4) fL Immature Gran % (Auto) 0.7 H (0.0-0.4) % Neut % (Auto) 79.5 H (45-73) % Lymph % (Auto) 11.2 L (20-40) % [place] % (Auto) 7.2 (2-11) % Eos % (Auto) 0.9 (0-4) % Baso % (Auto) 0.5 (0-2) % Lymph # (Auto) 1.3 (1.2-4.9) X10*3/uL [place] # (Auto) 0.9 (0.1-1.2) X10*3/uL Eos # (Auto) 0.1 (0.0-0.4) X10*3/uL Baso # (Auto) 0.1 (0.0-0.2) X10*3/uL Abs Immat Gran (auto) 0.08 H (0.00-0.03) X10*3/uL Absolute Neuts (auto) 9.5 H (2.0-8.3) x10*3/uL Absolute Nucleated RBC 0.000 (0.0-0.012) X10*3/uL Nucleated RBC % (auto) 0.0 (0.0-0.2) /100WBC Sodium 143 (135-145) mmol/L Potassium 4.5 D (3.3-5.1) mmol/L Chloride 100 (96-108) mmol/L Carbon Dioxide 31 H (22-29) mmol/L Anion Gap 17 (12-20) BUN 21 H (9-16) mg/dL Creatinine 1.29 (0.5-1.4) mg/dL Estim Creat Clear Calc 64.0 Estimated GFR 57 Random Glucose 100 (60-115) mg/dL Calcium 9.6 (8.4-10.2) mg/dL Magnesium 2.0 (1.6-2.6) mg/dL Total Bilirubin 0.9 (0.0-1.0) mg/dL AST 27 (5-37) U/L ALT 15 (0-40) U/L Alkaline Phosphatase 87 (39-117) U/L Troponin I High Sens 6.1 (<3.5-35.0) ng/L B-Natriuretic Peptide (<100) pg/mL Total Protein 7.2 (6.5-8.0) g/dL Albumin 4.5 (3.5-5.0) g/dL Ethyl Alcohol mg/dL COVID-19 (CRUZ) (Negative) COVID-19 Clin Com Influenza Type A (REAGAN) (Negative) Influenza Type B (REAGAN) (Negative) Influenza A & B Note 11/04/22 11/04/22 11/04/22 Range/Units 14:28 14:28 14:28 WBC (4.8-10.8) X10*3/uL RBC (4.60-5.80) X10*6/uL Hgb (14.0-18.0) g/dl Hct (42.0-52.0) % MCV (80.0-98.0) fL MCH (27.0-33.0) pg MCHC (31.0-36.0) g/dl RDW (11.0-16.0) % Plt Count (160-400) X10*3/uL MPV (9.4-12.4) fL Immature Gran % (Auto) (0.0-0.4) % Neut % (Auto) (45-73) % Lymph % (Auto) (20-40) % [place] % (Auto) (2-11) % Eos % (Auto) (0-4) % Baso % (Auto) (0-2) % Lymph # (Auto) (1.2-4.9) X10*3/uL [place] # (Auto) (0.1-1.2) X10*3/uL Eos # (Auto) (0.0-0.4) X10*3/uL Baso # (Auto) (0.0-0.2) X10*3/uL Abs Immat Gran (auto) (0.00-0.03) X10*3/uL Absolute Neuts (auto) (2.0-8.3) x10*3/uL Absolute Nucleated RBC (0.0-0.012) X10*3/uL Nucleated RBC % (auto) (0.0-0.2) /100WBC Sodium (135-145) mmol/L Potassium (3.3-5.1) mmol/L Chloride (96-108) mmol/L Carbon Dioxide (22-29) mmol/L Anion Gap (12-20) BUN (9-16) mg/dL Creatinine (0.5-1.4) mg/dL Estim Creat Clear Calc Estimated GFR Random Glucose (60-115) mg/dL Calcium (8.4-10.2) mg/dL Magnesium (1.6-2.6) mg/dL Total Bilirubin (0.0-1.0) mg/dL AST (5-37) U/L ALT (0-40) U/L Alkaline Phosphatase (39-117) U/L Troponin I High Sens (<3.5-35.0) ng/L B-Natriuretic Peptide 53 (<100) pg/mL Total Protein (6.5-8.0) g/dL Albumin (3.5-5.0) g/dL Ethyl Alcohol < 10 mg/dL COVID-19 (CRUZ) Negative (Negative) COVID-19 Clin Com See Note Influenza Type A (REAGAN) (Negative) Influenza Type B (REAGAN) (Negative) Influenza A & B Note 11/04/22 11/04/22 Range/Units 15:44 15:44 WBC (4.8-10.8) X10*3/uL RBC (4.60-5.80) X10*6/uL Hgb (14.0-18.0) g/dl Hct (42.0-52.0) % MCV (80.0-98.0) fL MCH (27.0-33.0) pg MCHC (31.0-36.0) g/dl RDW (11.0-16.0) % Plt Count (160-400) X10*3/uL MPV (9.4-12.4) fL Immature Gran % (Auto) (0.0-0.4) % Neut % (Auto) (45-73) % Lymph % (Auto) (20-40) % [place] % (Auto) (2-11) % Eos % (Auto) (0-4) % Baso % (Auto) (0-2) % Lymph # (Auto) (1.2-4.9) X10*3/uL [place] # (Auto) (0.1-1.2) X10*3/uL Eos # (Auto) (0.0-0.4) X10*3/uL Baso # (Auto) (0.0-0.2) X10*3/uL Abs Immat Gran (auto) (0.00-0.03) X10*3/uL Absolute Neuts (auto) (2.0-8.3) x10*3/uL Absolute Nucleated RBC (0.0-0.012) X10*3/uL Nucleated RBC % (auto) (0.0-0.2) /100WBC Sodium (135-145) mmol/L Potassium (3.3-5.1) mmol/L Chloride (96-108) mmol/L Carbon Dioxide (22-29) mmol/L Anion Gap (12-20) BUN (9-16) mg/dL Creatinine (0.5-1.4) mg/dL Estim Creat Clear Calc Estimated GFR Random Glucose (60-115) mg/dL Calcium (8.4-10.2) mg/dL Magnesium (1.6-2.6) mg/dL Total Bilirubin (0.0-1.0) mg/dL AST (5-37) U/L ALT (0-40) U/L Alkaline Phosphatase (39-117) U/L Troponin I High Sens (<3.5-35.0) ng/L B-Natriuretic Peptide (<100) pg/mL Total Protein (6.5-8.0) g/dL Albumin (3.5-5.0) g/dL Ethyl Alcohol mg/dL COVID-19 (CRUZ) Negative (Negative) COVID-19 Clin Com See Note Influenza Type A (REAGAN) Negative (Negative) Influenza Type B (REAGAN) Negative (Negative) Influenza A & B Note See Note <DO Lilibeth Lane Last Filed: 11/04/22 19:48> Independent Interpretation I performed an independent interpretation of an: EKG <DO Lilibeth Lane Last Filed: 11/04/22 19:48> Interpretation: Rate 93 normal sinus rhythm normal intervals no signs ischemia no change from previous Repeat EKG patient is not sleeping in the room rate 70 normal sinus rhythm normal intervals no signs of ischemia <DO Lilibeth Lane Last Filed: 11/04/22 19:48> External Record Review External record reviewed: Inpatient record, Office record, Outpatient record, Prior outpatient labs, Prior outpatient radiology and Outside ED record <DO Lilibeth Lane Last Filed: 11/04/22 19:48> Discharge Plan Discharge Clinical Impression: Opioid use disorder, severe, dependence, Chronic pain syndrome, Chest pain, Acute alcohol abuse <MARTHA Rabago Last Filed: 11/04/22 14:18> Patient Disposition: Home, Self-Care <MARTHA Rabago Last Filed: 11/04/22 14:18> Instructions: Chest Pain (DC), Chronic Pain (ED), Narcotic Use Disorder (ED), Abuse of Alcohol (DC) <MARTHA Rabago Last Filed: 11/04/22 14:18> Additional Instructions: Please call to follow up. There might be a bed in the morning. Please call to see if you can get in. You do have a blood clot is it very important to take your medications so the size of the embolism continues to shrink. <MARTHA Rabago - Last Filed: 11/04/22 14:18> Prescriptions: No Action duloxetine 30 mg capsule,delayed release(DR/EC) 1 cap PO BID lisinopril 10 mg tablet 10 mg PO DAILY gabapentin 300 mg capsule 300 mg PO BID melatonin 5 mg tablet 5 mg BEDTIME Eliquis DVT-PE Treat 30D Start 5 mg (74 tabs) tablets,dose pack 10 mg PO BID Rx Instructions: FROM 11/03 TO 11/11 thiamine HCl (vitamin B1) 100 mg tablet 100 mg PO DAILY pantoprazole 40 mg tablet,delayed release (DR/EC) 40 mg PO BID folic acid 1 mg tablet 1 mg PO DAILY multivitamin with folic acid [Tab-A-Harper] 400 mcg tablet 1 tab PO DAILY acamprosate 333 mg tablet,delayed release (DR/EC) 666 mg PO TID Eliquis DVT-PE Treat 30D Start 5 mg (74 tabs) tablets,dose pack 5 mg PO BID <MARTHA Rabago - Last Filed: 11/04/22 14:18>
[2022-11-04 14:16] VITALS: BP 102/67; PULSE 100; RESP 20; TEMP 35.2; O2SAT 99; BMI 22.3
[2022-11-04 14:34] LABS: MANUAL DIFF FLAG NO
[2022-11-04 14:40] LABS: Basophils Absolute Auto 0.1 X10*3/uL (0.0-0.2); Basophils Percent Auto 0.5 % (0-2); Eosinophils Absolute Auto 0.1 X10*3/uL (0.0-0.4); Eosinophils Percent Auto 0.9 % (0-4); Hemoglobin 11.4 g/dl (14.0-18.0); Imm Gran Abs Auto 0.08 X10*3/uL (0.00-0.03); Imm Gran Pct Auto 0.7 % (0.0-0.4); Lymphocytes Absolute Auto 1.3 X10*3/uL (1.2-4.9); Lymphocytes Percent Auto 11.2 % (20-40); Mean Corpuscular HGB Conc 31.7 g/dl (31.0-36.0); Mean Corpuscular Volume 88.5 fL (80.0-98.0); Mean Platelet Volume 9.9 fL (9.4-12.4); Monocytes Absolute Auto 0.9 X10*3/uL (0.1-1.2); Monocytes Percent Auto 7.2 % (2-11); Neutrophils Absolute Auto 9.5 x10*3/uL (2.0-8.3); Neutrophils Percent Auto 79.5 % (45-73); Platelet Count 300 X10*3/uL (160-400); Red Blood Count 4.07 X10*6/uL (4.60-5.80); Red Cell Distribution Width 14.4 % (11.0-16.0); White Blood Count 11.9 X10*3/uL (4.8-10.8)
[2022-11-04 14:46] LABS: COVID-19 Test Negative (Negative); IDNOW Serial# BCCEAD1C
[2022-11-04 14:50] LABS: Alanine Aminotransferase 15 U/L (0-40); Albumin Level 4.5 g/dL (3.5-5.0); Alkaline Phosphatase 87 U/L (39-117); Anion Gap 17 (12-20); Aspartate Amino Transferase 27 U/L (5-37); Bilirubin Total 0.9 mg/dL (0.0-1.0); Blood Urea Nitrogen 21 mg/dL (9-16); Calcium 9.6 mg/dL (8.4-10.2); Carbon Dioxide 31 mmol/L (22-29); Chloride 100 mmol/L (96-108); Estimated Glomerular Filt Rate 57; Glucose Random 100 mg/dL (60-115); Potassium 4.5 mmol/L (3.3-5.1); Sodium 143 mmol/L (135-145); Total Protein 7.2 g/dL (6.5-8.0)
[2022-11-04 14:55] LABS: B Type Natriuretic Peptide 53 pg/mL (<100)
[2022-11-04 14:56] LABS: Troponin-I High Sensitivity 6.1 ng/L (<3.5-35.0)
--- NOTE | 2022-11-04 14:59 | ECG_ITS ---
Test Reason : CP Blood Pressure : / mmHG Vent. Rate : 070 BPM Atrial Rate : 070 BPM P-R Int : 160 ms QRS Dur : 094 ms QT Int : 420 ms P-R-T Axes : 034 -13 009 degrees QTc Int : 453 ms Normal sinus rhythm Normal ECG When compared with ECG of 04-NOV-2022 14:18, No significant changes seen Referred By: Javan Lee Electronically Signed By:Ahmet Lenz
[2022-11-04] MEDS: 0.9 % Sodium Chloride 1,000 ML 999 ML IV (15:13)
[2022-11-04] MEDS: Benzonatate 100 MG CAPSULE PO (15:19)
[2022-11-04] MEDS: Morphine Sulfate 10 MG/ML CARTRIDGE 6 MG IVPUSH (15:19)
[2022-11-04] MEDS: Ketorolac Tromethamine 15 MG/ML VIAL IVPUSH (15:19)
[2022-11-04] MEDS: dexAMETHasone sod phosphate 10 MG/ML VIAL IVPUSH (15:19)
[2022-11-04 15:34] LABS: Ethanol < 10 mg/dL
--- NOTE | 2022-11-04 15:39 | PHA.MEDREC ---
Pharmacy Consult ? Medication Reconciliation Pharmacy has completed the medication reconciliation. Done with claim history and discharge summary from [facility]. Patient claims he is still on campral and duloxetine Javi
[2022-11-04 16:15] LABS: IDNOW Serial# 9DB6401D; Influenza A Negative (Negative); Influenza B2 Negative (Negative)
[2022-11-04 16:16] LABS: COVID-19 Test Negative (Negative); IDNOW Serial# BCCEAD1C
[2022-11-04] MEDS: iohexoL 350 MG/ML 100 ML INFUS..BTL IV (16:21)
[2022-11-04 17:19] VITALS: BP 125/71; PULSE 74; RESP 12; O2SAT 96
--- NOTE | 2022-11-04 18:13 | PC.NURSE ---
Provider in to speak with patient, patient now seeking detox from etoh use
--- NOTE | 2022-11-04 18:33 | MHC.RECOVSUP ---
? Reason for consult Recovery support o Current location: ED15 o Identified substance use concern: Alcohol - Seeking ATS (detox) - Support ? Intervention: o ATS bed search started 6pm/in process o Community resources provided o Harm reduction discussion ? Plan: o Bed search in progress to o Follow up tomorrow o Patient to follow up with [facility] after discharge ? Additional information: Met with Patient we talk harm reduction and recovery.. patient stated that he would like to go ATS.. I called Renetta Freitas and patient doing intake for the morning
[2022-11-04 20:00] VITALS: BP 124/65; PULSE 80; RESP 16; TEMP 36.6; O2SAT 97
== END 2022-11-04 19:56 | disposition home or self-care (01) ==
PROVIDERS: Physician Assistant; Emergency Provider Student in an Organized Health Care Education/Training Program; PCP Internal Medicine
DX: F11.29 Opioid dependence with unspecified opioid-induced disorder (principal); R07.89 Other chest pain; F10.10 Alcohol abuse, uncomplicated; R06.02 Shortness of breath; Y90.0 Blood alcohol level of less than 20 mg/100 ml; Z20.822 Contact with and (suspected) exposure to COVID-19; Z20.828 Contact with and (suspected) exposure to other viral communicable diseases; Z79.899 Other long term (current) drug therapy; Z79.01 Long term (current) use of anticoagulants
CPT/HCPCS: 71045; 71275; 80053; 82077; 83735; 83880; 84484; 85025; 87502; 87635; 93005; 96361; 96374; 96375; 99285; J1100; J1885; J2270; Q9967

== ENCOUNTER 2022-11-14 14:51 | Observation (INO) | payer MEDICAID, SELFPAY ==
--- NOTE | ~2022-11-14 | CT_ITS ---
EXAMINATION: CT ABDOMEN AND PELVIS WITH CONTRAST CLINICAL INFORMATION: Epigastric pain. Nausea/vomiting. COMPARISON: None available. TECHNIQUE: Multidetector volumetric images were obtained from the superior aspect of the liver through the pubic symphysis following administration 85 mL of Omnipaque 350 intravenous contrast. Sagittal and coronal reformatted images were obtained on the technologist's workstation. Oral contrast: No This CT examination was performed using dose optimization techniques as appropriate, variously including the following: *Automated exposure control *Adjustment of mA and/or kV according to patient size (this includes techniques or standardized protocols for targeted exams where dose is matched to indication/reason for exam; i.e. extremities or head) *Use of iterative reconstruction technique DLP: 466 mGy-cm FINDINGS: LUNG BASES: The visualized lung bases are unremarkable. Circumferential wall thickening is evident at the distal esophagus LIVER, GALLBLADDER, AND BILIARY TREE: The liver is normal in size, shape, and attenuation. No biliary ductal dilatation is present. Small 0.4 cm focus of hypoattenuation in hepatic segment 7 is too small to characterize, statistically favored to correspond to a simple cyst. No recommend imaging follow-up. The gallbladder is unremarkable with no evidence of radiopaque gallstones, gallbladder wall thickening, or obvious pericholecystic inflammatory changes. PANCREAS: Unremarkable. SPLEEN: Unremarkable. ADRENAL GLANDS: Unremarkable. KIDNEYS AND URETERS: Simple cysts are present at the upper and lower poles of the left kidney, measuring 2 and 3 cm in diameter, respectively. No recommend imaging follow-up. Small focus of cortical scarring is present at the medial margin of the right upper renal pole. The kidneys are otherwise normal in size, shape, and attenuation. No hydronephrosis, hydroureter, or calculi seen. No perinephric stranding. BLADDER: Unremarkable. GASTROINTESTINAL TRACT: As noted above, there is wall thickening at the distal esophagus. Stomach, small bowel, and colon are normal in caliber without bowel thickening or surrounding inflammatory changes. Appendix is normal. Mild diverticulosis in the descending and sigmoid colon. No intraperitoneal free air or free fluid. ABDOMINAL WALL: Tiny fat-containing umbilical hernia. No bowel involvement. LYMPH NODES: Normal. VASCULAR: Calcific atherosclerosis is present in the abdominal aorta and iliac arteries. No aneurysmal dilatation. PELVIC VISCERA: Unremarkable. OSSEOUS STRUCTURES: Status post fusion from L3 through S1. Marked degenerative disc disease at L1-L2 and L2-L3. Multilevel facet arthropathy. Chronic compression deformity at L1. Chronic posttraumatic deformity at the right iliac wing. Status post right total hip arthroplasty. No acute surrounding abnormalities. Left hip dysplasia. CT/CT abdomen pelvis w IV con IMPRESSION: 1. Circumferential wall thickening in the distal esophagus, potentially due to esophagitis. Consider correlation with endoscopy to exclude an underlying lesion. Otherwise, no acute abnormalities identified in the abdomen and pelvis. 2. Mild colonic diverticulosis without evidence of acute diverticulitis. Fleischner guidelines were followed.
[2022-11-14 15:05] VITALS: BP 116/70; PULSE 92; O2SAT 95; BMI 2987.8
--- NOTE | 2022-11-14 15:14 | ED.GENADULT ---
HPI - General Adult General Chief complaint: Abdominal Pain <Rubi Enamorado NP - Last Filed: 11/14/22 16:26> Stated complaint: ABD PAIN,N/V PER EMS <Rubi Enamorado NP - Last Filed: 11/14/22 16:26> Time Seen by Provider: 11/14/22 15:12 <Rubi Enamorado NP - Last Filed: 11/14/22 16:26> Source: patient <Rubi Enamorado NP - Last Filed: 11/14/22 16:26> Mode of arrival: EMS <Rubi Enamorado NP - Last Filed: 11/14/22 16:26> Limitations: no limitations <Rubi Enamorado NP - Last Filed: 11/14/22 16:26> History of Present Illness HPI narrative: Patient is a 49-year-old male with history of chronic pain syndrome, alcohol abuse, opioid use disorder presenting with abdominal pain since yesterday as well as 2 episodes of nonbilious, nonbloody emesis today. He describes his pain as epigastric. He reports that he drinks alcohol daily, typically a few pints of beer daily. He denies any diarrhea. He denies any rectal bleeding or dark, tarry stools. He denies any fevers. He reports his last drink was 1 hour ago. He has not taken any [id number] medications prior to arrival. <Rubi Enamorado NP - Last Filed: 11/14/22 16:26> Related Data Home medications: Home Medications Medication Instructions Recorded Confirmed duloxetine 30 mg capsule,delayed 1 cap PO BID 08/04/21 11/04/22 release acamprosate 333 mg tablet,delayed 666 mg PO TID 11/04/22 11/04/22 release apixaban 5 mg (74 tabs) tablets in 5 mg PO BID 11/04/22 11/04/22 a dose pack (Eliquis DVT-PE Treat 30D Start) apixaban 5 mg (74 tabs) tablets in 10 mg PO BID 11/04/22 11/04/22 a dose pack (Eliquis DVT-PE Treat 30D Start) folic acid 1 mg tablet 1 mg PO DAILY 11/04/22 11/04/22 gabapentin 300 mg capsule 300 mg PO BID 11/04/22 11/04/22 lisinopril 10 mg tablet 10 mg PO DAILY 11/04/22 11/04/22 melatonin 5 mg tablet 5 mg BEDTIME 11/04/22 11/04/22 multivitamin with folic acid 400 1 tab PO DAILY 11/04/22 11/04/22 mcg tablet (Tab-A-Harper) pantoprazole 40 mg tablet,delayed 40 mg PO BID 11/04/22 11/04/22 release thiamine HCl (vitamin B1) 100 mg 100 mg PO DAILY 11/04/22 11/04/22 tablet <Rubi Enamorado NP - Last Filed: 11/14/22 16:26> Allergies/adverse reactions: Allergies Allergy/AdvReac Type Severity Reaction Status Date / Time bee pollen [BEE STINGS] Allergy Severe SWELLING Verified 11/04/22 14:19 <Rubi Enamorado NP - Last Filed: 11/14/22 16:26> Review of Systems Review of Systems: As per HPI. <Rubi Enamorado NP - Last Filed: 11/14/22 16:26> Yes all other systems are reviewed and are negative <Rubi Enamorado NP - Last Filed: 11/14/22 16:26> PMFSH Past Medical History Medical History: Medical History EtOH dependence Hypertension Substance abuse <Rubi Enamorado NP - Last Filed: 11/14/22 16:26> Surgical History: Surgical History History of total right hip replacement <Rubi Enamorado NP - Last Filed: 11/14/22 16:26> Social History Social History: Social History Alcohol intake: current Alcohol intake frequency: 0-2 drinks per day Patient Tobacco Use Status: Current everyday Tobacco user Substance Use Type: Heroin Advance Directives: No Advance Directives Information Provided: No <DARRICK Owens Last Filed: 11/14/22 16:26> Physical Exam ED Vital Signs: Vital Signs - 24 hr 11/14/22 15:58 11/14/22 22:36 Temperature 99.2 F 99.8 F Pulse Rate 87 83 Respiratory Rate 16 13 Blood Pressure 121/75 115/57 L Pulse Oximetry 97 95 Oxygen Delivery Method Room Air Room Air BMI result Body Mass Index 2987.8 <Rubi Enamorado NP - Last Filed: 11/14/22 16:26> Vital Signs - 24 hr 11/14/22 15:58 11/14/22 22:36 Temperature 99.2 F 99.8 F Pulse Rate 87 83 Respiratory Rate 16 13 Blood Pressure 121/75 115/57 L Pulse Oximetry 97 95 Oxygen Delivery Method Room Air Room Air BMI result Body Mass Index 2987.8 <MARTHA Rabago - Last Filed: 11/15/22 01:02> Const General: cooperative, healthy appearing and no acute distress <Rubi Enamorado NP - Last Filed: 11/14/22 16:26> Orientation/consciousness: oriented to person, oriented to place, oriented to time and patient oriented x3 <Rubi Enamorado NP - Last Filed: 11/14/22 16:26> Limitations: no limitations <Rubi Enamorado NP - Last Filed: 11/14/22 16:26> HENCO Head: Yes normocephalic and Yes atraumatic <Rubi Enamorado NP - Last Filed: 11/14/22 16:26> Ears: external ears normal <Rubi Enamorado NP - Last Filed: 11/14/22 16:26> General nose exam: Normal external nose present <Rubi Enamorado NP - Last Filed: 11/14/22 16:26> Face and sinus: Yes face symmetric <Rubi Enamorado NP - Last Filed: 11/14/22 16:26> Mouth: oropharynx normal and moist mucous membranes <Rubi Enamorado NP - Last Filed: 11/14/22 16:26> Throat: Yes uvula midline <Rubi Enamorado NP - Last Filed: 11/14/22 16:26> Eyes Pupils: Equal, round and reactive pupils present <Rubi Enamorado NP - Last Filed: 11/14/22 16:26> Neck Neck: Yes normal visual inspection and Yes supple <DARRICK Owens Last Filed: 11/14/22 16:26> Resp Effort & Inspection: normal respiratory effort and able to speak in complete sentences <DARRICK Owens Last Filed: 11/14/22 16:26> Auscultation: clear to auscultation bilaterally <DARRICK Owens Last Filed: 11/14/22 16:26> Cardio Rate: regular rate <DARRICK Owens Last Filed: 11/14/22 16:26> Rhythm: regular rhythm <DARRICK Owens Last Filed: 11/14/22 16:26> Heart sounds: S1 normal heart sound present and S2 normal heart sound present <DARRICK Owens Last Filed: 11/14/22 16:26> GI Inspection: Yes normal to inspection <DARRICK Owens Last Filed: 11/14/22 16:26> Palpation (GI): Soft to palpation, nontender, no guarding, hepatosplenomegaly present, no hernias, no masses, No Rebound tenderness present and Other GI palpation findings present (mild epigastric tenderness) <DARRICK Owens Last Filed: 11/14/22 16:26> Auscultation: normoactive bowel sounds <DARRICK Owens Last Filed: 11/14/22 16:26> General: Yes no CVA tenderness <DARRICK Owens Last Filed: 11/14/22 16:26> Back/Spine/Pelvis Back: no CVA tenderness <DARRICK Owens Last Filed: 11/14/22 16:26> Skin General skin exam: elasticity normal and turgor normal <DARRICK Owens Last Filed: 11/14/22 16:26> Neuro General: oriented to person, oriented to place, oriented to time, patient oriented x3, moves all extremities, no focal motor deficits and CN's II-XI intact bilaterally <DARRICK Owens Last Filed: 11/14/22 16:26> Cranial nerves: Yes Equal, round and reactive pupils present <Rubi Enamorado NP - Last Filed: 11/14/22 16:26> Cognition (Neuro): normal cognition <Rubi Enamoraod NP - Last Filed: 11/14/22 16:26> Extrem General: Yes full ROM, Yes no pedal edema and Yes no calf tenderness <Rubi Enamorado NP - Last Filed: 11/14/22 16:26> Psych Mental Status: mental status grossly normal <Rubi Enamorado NP - Last Filed: 11/14/22 16:26> Affect: normal affect <Rubi Enamorado NP - Last Filed: 11/14/22 16:26> Thought process: Normal thought process present <DARRICK Owens Last Filed: 11/14/22 16:26> Course Course Course Narrative: Patient signed out to Sophia Iglesias pending labs. <Rubi Enamorado NP - Last Filed: 11/14/22 16:26> Reevaluation(s) Reevaluation #1: CBC with slight leukocytosis and normocytic anemia, leukocytosis likely secondary to nausea and vomiting probable viral illness. I do not suspect infection. Chemistry with low sodium of 130, receiving normal saline. Will recheck. Common dioxide down trending. No other acute electrolyte abnormalities requiring intervention. Patient's lipase was within normal limits. VBG with no acute findings slightly alkalotic likely secondary to vomiting, bicarb was [address] of the abdomen and pelvis with sacrum frontal wall thickening in the distal esophagus likely esophagitis, patient does have a drinking history will give Maalox. Mild colonic diverticulosis without evidence of acute diverticulitis. Patient comfortably resting feeling better. Will repeat labs and patient will be discharged home this is likely a viral illness. <MARTHA Rabago - Last Filed: 11/15/22 01:02> Time: 22:50 <MARTHA Rabago - Last Filed: 11/15/22 01:02> Reevaluation #2: Continues to have n/v abd pain. Not tollerating PO Compazine ordered will admit for observation. <MARTHA Rabago - Last Filed: 11/15/22 01:02> Time: 00:59 <MARTHA Rabago - Last Filed: 11/15/22 01:02> Medications Administered Discontinued Medications Generic Name Dose Route Start Last Admin Trade Name Freq PRN Reason Stop Dose Admin Al Hydroxide/Mg Hydroxide 30 ml 11/14/22 15:23 11/14/22 15:39 Magnesium Hydrox/Alum Hydrox 30 Ml Oral.Susp PO 11/14/22 15:24 30 ml ONCE ONE Administration Diphenhydramine HCl 50 mg 11/14/22 16:34 11/14/22 16:52 Diphenhydramine Hcl 50 Mg/Ml Vial IVPUSH 11/14/22 16:35 50 mg ONCE ONE Administration Sodium Chloride 1,000 mls @ 999 mls/hr 11/14/22 16:45 11/14/22 18:02 Ns IV 11/14/22 17:45 Infused .Q1H1M JEAN Infusion Sodium Chloride 1,000 mls @ 999 mls/hr 11/14/22 16:45 11/14/22 20:00 Ns IV 11/14/22 17:45 Infused .Q1H1M JEAN Infusion Sodium Chloride 1,000 mls @ 999 mls/hr 11/14/22 22:00 11/15/22 00:41 Ns IV 11/14/22 23:00 Infused .Q1H1M JEAN Infusion Sodium Chloride 1,000 mls @ 999 mls/hr 11/14/22 22:00 11/14/22 23:07 Ns IV 11/14/22 23:00 999 mls/hr .Q1H1M JEAN Administration Iohexol 100 ml 11/14/22 16:48 11/14/22 16:49 Iohexol 350 Mg/Ml 100 Ml Infus..Btl IV 11/14/22 16:49 85 ml ONCE ONE Administration Lidocaine HCl 15 ml 11/14/22 15:23 11/14/22 15:39 Lidocaine Hcl Viscous 2 % 15 Ml Solution MUCOUS MEM 11/14/22 15:24 15 ml ONCE ONE Administration Metoclopramide HCl 10 mg 11/14/22 16:34 11/14/22 16:52 Metoclopramide Hcl 10 Mg/2 Ml Vial IVPUSH 11/14/22 16:35 10 mg ONCE ONE Administration Ondansetron HCl 4 mg 11/14/22 15:23 11/14/22 15:39 Ondansetron Odt 4 Mg Tab.Rapdis TRANSLINGU 11/14/22 15:24 4 mg ONCE ONE Administration Ondansetron HCl 4 mg 11/14/22 16:15 11/14/22 16:53 Ondansetron Hcl 4 Mg/2 Ml Vial IVPUSH 11/14/22 16:16 Not Given ONCE ONE <Rubi Enamorado NP - Last Filed: 11/14/22 16:26> Medications Administered Discontinued Medications Generic Name Dose Route Start Last Admin Trade Name Freq PRN Reason Stop Dose Admin Al Hydroxide/Mg Hydroxide 30 ml 11/14/22 15:23 11/14/22 15:39 Magnesium Hydrox/Alum Hydrox 30 Ml Oral.Susp PO 11/14/22 15:24 30 ml ONCE ONE Administration Diphenhydramine HCl 50 mg 11/14/22 16:34 11/14/22 16:52 Diphenhydramine Hcl 50 Mg/Ml Vial IVPUSH 11/14/22 16:35 50 mg ONCE ONE Administration Sodium Chloride 1,000 mls @ 999 mls/hr 11/14/22 16:45 11/14/22 18:02 Ns IV 11/14/22 17:45 Infused .Q1H1M JEAN Infusion Sodium Chloride 1,000 mls @ 999 mls/hr 11/14/22 16:45 11/14/22 20:00 Ns IV 11/14/22 17:45 Infused .Q1H1M JEAN Infusion Sodium Chloride 1,000 mls @ 999 mls/hr 11/14/22 22:00 11/15/22 00:41 Ns IV 11/14/22 23:00 Infused .Q1H1M JEAN Infusion Sodium Chloride 1,000 mls @ 999 mls/hr 11/14/22 22:00 11/14/22 23:07 Ns IV 11/14/22 23:00 999 mls/hr .Q1H1M JEAN Administration Iohexol 100 ml 11/14/22 16:48 11/14/22 16:49 Iohexol 350 Mg/Ml 100 Ml Infus..Btl IV 11/14/22 16:49 85 ml ONCE ONE Administration Lidocaine HCl 15 ml 11/14/22 15:23 11/14/22 15:39 Lidocaine Hcl Viscous 2 % 15 Ml Solution MUCOUS MEM 11/14/22 15:24 15 ml ONCE ONE Administration Metoclopramide HCl 10 mg 11/14/22 16:34 11/14/22 16:52 Metoclopramide Hcl 10 Mg/2 Ml Vial IVPUSH 11/14/22 16:35 10 mg ONCE ONE Administration Ondansetron HCl 4 mg 11/14/22 15:23 11/14/22 15:39 Ondansetron Odt 4 Mg Tab.Rapdis TRANSLINGU 11/14/22 15:24 4 mg ONCE ONE Administration Ondansetron HCl 4 mg 11/14/22 16:15 11/14/22 16:53 Ondansetron Hcl 4 Mg/2 Ml Vial IVPUSH 11/14/22 16:16 Not Given ONCE ONE <MARTHA Rabago - Last Filed: 11/15/22 01:02> Medical Decision Making Medical Decision Making MDM Narrative: Patient is a 49-year-old male with history of chronic pain syndrome, alcohol abuse, opioid use disorder presenting with abdominal pain since yesterday as well as 2 episodes of nonbilious, nonbloody emesis today. On exam patient is nontoxic appearing, afebrile, not tachycardic or hypoxic, abdomen is soft, mildly TTP epigastric, otherwise nontender, no rebound tenderness, no guarding. Concern for ACS, GERD, gastritis, pancreatitis, PUD, cholecystitis, lactic acidosis. Lower concern for pneumonia or PE, obstruction, perforation. Unlikely aortic dissection, ruptured AAA, mesenteric ischemia. Plan: labs, EKG, POC glucose, Zofran/GI cocktail, reassess Please refer to course for remaining clinical decision making. <Rubi Enamorado NP - Last Filed: 11/14/22 16:26> Differential Diagnosis Differential Diagnoses: The differential diagnosis associated with the presentation includes <Rubi Enamorado NP - Last Filed: 11/14/22 16:26> As above. <Rubi Enamorado NP - Last Filed: 11/14/22 16:26> Lab Data [facility] Lab Attestation statement: I reviewed the patient's lab results. <Rubi Enamorado NP - Last Filed: 11/14/22 16:26> Result Diagrams: 11/14/22 16:10 11/14/22 16:10 <Rubi Enamorado NP - Last Filed: 11/14/22 16:26> Labs: Lab Results 11/14/22 11/14/22 11/14/22 Range/Units 15:43 16:10 16:10 WBC 13.7 H (4.8-10.8) X10*3/uL RBC 4.22 L (4.60-5.80) X10*6/uL Hgb 11.9 L (14.0-18.0) g/dl Hct 35.8 L (42.0-52.0) % MCV 84.8 (80.0-98.0) fL MCH 28.2 (27.0-33.0) pg MCHC 33.2 (31.0-36.0) g/dl RDW 13.9 (11.0-16.0) % Plt Count 327 (160-400) X10*3/uL MPV 9.7 (9.4-12.4) fL Immature Gran % (Auto) 0.8 H (0.0-0.4) % Neut % (Auto) 84.3 H (45-73) % Lymph % (Auto) 8.1 L (20-40) % [place] % (Auto) 6.5 (2-11) % Eos % (Auto) 0.1 (0-4) % Baso % (Auto) 0.2 (0-2) % Lymph # (Auto) 1.1 L (1.2-4.9) X10*3/uL [place] # (Auto) 0.9 (0.1-1.2) X10*3/uL Eos # (Auto) 0.0 (0.0-0.4) X10*3/uL Baso # (Auto) 0.0 (0.0-0.2) X10*3/uL Abs Immat Gran (auto) 0.11 H (0.00-0.03) X10*3/uL Absolute Neuts (auto) 11.5 H (2.0-8.3) x10*3/uL Absolute Nucleated RBC 0.000 (0.0-0.012) X10*3/uL Nucleated RBC % (auto) 0.0 (0.0-0.2) /100WBC VBG pH (7.32-7.43) VBG pCO2 mmHg VBG pO2 mmHg VBG HCO3 (22-26) mmol/L VBG O2 Saturation % VBG Base Excess mmol/L Sodium 130 L (135-145) mmol/L Potassium 4.4 (3.3-5.1) mmol/L Chloride 83 L (96-108) mmol/L Carbon Dioxide 34 H (22-29) mmol/L Anion Gap 17 (12-20) BUN 36 H (9-16) mg/dL Creatinine 1.20 (0.5-1.4) mg/dL Estim Creat Clear Calc -15.9 Estimated GFR > 60 POC Glucose 121 H (60-115) mg/dL Random Glucose 101 (60-115) mg/dL Lactic Acid (0.5-2.0) mmol/L Calcium 9.8 (8.4-10.2) mg/dL Total Bilirubin 1.1 H (0.0-1.0) mg/dL Direct Bilirubin 0.3 (0.0-0.5) mg/dL AST 15 (5-37) U/L ALT 12 (0-40) U/L Alkaline Phosphatase 78 (39-117) U/L Troponin I High Sens (<3.5-35.0) ng/L Total Protein 7.0 (6.5-8.0) g/dL Albumin 4.3 (3.5-5.0) g/dL Lipase 26 (8-78) U/L Urine Color Urine Appearance Urine pH (5.0-9.0) Ur Specific [place] (1.005-1.025) Urine Protein (Neg-Trace) mg/dL Urine Glucose (UA) (Negative) mg/dL Urine Ketones (Negative) mg/dL Urine Blood (Negative) Urine Nitrite (Negative) Ur Leukocyte Esterase (Negative) 11/14/22 11/14/22 11/14/22 Range/Units 16:10 17:23 17:31 WBC (4.8-10.8) X10*3/uL RBC (4.60-5.80) X10*6/uL Hgb (14.0-18.0) g/dl Hct (42.0-52.0) % MCV (80.0-98.0) fL MCH (27.0-33.0) pg MCHC (31.0-36.0) g/dl RDW (11.0-16.0) % Plt Count (160-400) X10*3/uL MPV (9.4-12.4) fL Immature Gran % (Auto) (0.0-0.4) % Neut % (Auto) (45-73) % Lymph % (Auto) (20-40) % [place] % (Auto) (2-11) % Eos % (Auto) (0-4) % Baso % (Auto) (0-2) % Lymph # (Auto) (1.2-4.9) X10*3/uL [place] # (Auto) (0.1-1.2) X10*3/uL Eos # (Auto) (0.0-0.4) X10*3/uL Baso # (Auto) (0.0-0.2) X10*3/uL Abs Immat Gran (auto) (0.00-0.03) X10*3/uL Absolute Neuts (auto) (2.0-8.3) x10*3/uL Absolute Nucleated RBC (0.0-0.012) X10*3/uL Nucleated RBC % (auto) (0.0-0.2) /100WBC VBG pH 7.48 H (7.32-7.43) VBG pCO2 57 mmHg VBG pO2 33 mmHg VBG HCO3 42 H (22-26) mmol/L VBG O2 Saturation 51.0 % VBG Base Excess 16.3 mmol/L Sodium (135-145) mmol/L Potassium (3.3-5.1) mmol/L Chloride (96-108) mmol/L Carbon Dioxide (22-29) mmol/L Anion Gap (12-20) BUN (9-16) mg/dL Creatinine (0.5-1.4) mg/dL Estim Creat Clear Calc Estimated GFR POC Glucose (60-115) mg/dL Random Glucose (60-115) mg/dL Lactic Acid 0.8 (0.5-2.0) mmol/L Calcium (8.4-10.2) mg/dL Total Bilirubin (0.0-1.0) mg/dL Direct Bilirubin (0.0-0.5) mg/dL AST (5-37) U/L ALT (0-40) U/L Alkaline Phosphatase (39-117) U/L Troponin I High Sens 10.5 D (<3.5-35.0) ng/L Total Protein (6.5-8.0) g/dL Albumin (3.5-5.0) g/dL Lipase (8-78) U/L Urine Color Urine Appearance Urine pH (5.0-9.0) Ur Specific [place] (1.005-1.025) Urine Protein (Neg-Trace) mg/dL Urine Glucose (UA) (Negative) mg/dL Urine Ketones (Negative) mg/dL Urine Blood (Negative) Urine Nitrite (Negative) Ur Leukocyte Esterase (Negative) 11/14/22 11/14/22 11/14/22 Range/Units 18:39 22:43 22:49 WBC (4.8-10.8) X10*3/uL RBC (4.60-5.80) X10*6/uL Hgb (14.0-18.0) g/dl Hct (42.0-52.0) % MCV (80.0-98.0) fL MCH (27.0-33.0) pg MCHC (31.0-36.0) g/dl RDW (11.0-16.0) % Plt Count (160-400) X10*3/uL MPV (9.4-12.4) fL Immature Gran % (Auto) (0.0-0.4) % Neut % (Auto) (45-73) % Lymph % (Auto) (20-40) % [place] % (Auto) (2-11) % Eos % (Auto) (0-4) % Baso % (Auto) (0-2) % Lymph # (Auto) (1.2-4.9) X10*3/uL [place] # (Auto) (0.1-1.2) X10*3/uL Eos # (Auto) (0.0-0.4) X10*3/uL Baso # (Auto) (0.0-0.2) X10*3/uL Abs Immat Gran (auto) (0.00-0.03) X10*3/uL Absolute Neuts (auto) (2.0-8.3) x10*3/uL Absolute Nucleated RBC (0.0-0.012) X10*3/uL Nucleated RBC % (auto) (0.0-0.2) /100WBC VBG pH (7.32-7.43) VBG pCO2 mmHg VBG pO2 mmHg VBG HCO3 (22-26) mmol/L VBG O2 Saturation % VBG Base Excess mmol/L Sodium 130 L 131 L (135-145) mmol/L Potassium 3.4 D 3.8 (3.3-5.1) mmol/L Chloride 90 L 90 L (96-108) mmol/L Carbon Dioxide 31 H 31 H (22-29) mmol/L Anion Gap 12 14 (12-20) BUN 32 H 27 H (9-16) mg/dL Creatinine 0.95 1.00 (0.5-1.4) mg/dL Estim Creat Clear Calc -20.0 -19.0 Estimated GFR > 60 > 60 POC Glucose (60-115) mg/dL Random Glucose 93 93 (60-115) mg/dL Lactic Acid (0.5-2.0) mmol/L Calcium 8.4 D 8.9 (8.4-10.2) mg/dL Total Bilirubin 0.9 1.1 H (0.0-1.0) mg/dL Direct Bilirubin (0.0-0.5) mg/dL AST 13 14 (5-37) U/L ALT 9 9 (0-40) U/L Alkaline Phosphatase 64 69 (39-117) U/L Troponin I High Sens (<3.5-35.0) ng/L Total Protein 5.8 L 6.1 L (6.5-8.0) g/dL Albumin 3.6 3.8 (3.5-5.0) g/dL Lipase (8-78) U/L Urine Color Yellow Urine Appearance Clear Urine pH 7.5 (5.0-9.0) Ur Specific [place] >= 1.030 H (1.005-1.025) Urine Protein Trace (Neg-Trace) mg/dL Urine Glucose (UA) 100 H (Negative) mg/dL Urine Ketones Negative (Negative) mg/dL Urine Blood Negative (Negative) Urine Nitrite Negative (Negative) Ur Leukocyte Esterase Negative (Negative) 11/14/22 Range/Units 22:53 WBC (4.8-10.8) X10*3/uL RBC (4.60-5.80) X10*6/uL Hgb (14.0-18.0) g/dl Hct (42.0-52.0) % MCV (80.0-98.0) fL MCH (27.0-33.0) pg MCHC (31.0-36.0) g/dl RDW (11.0-16.0) % Plt Count (160-400) X10*3/uL MPV (9.4-12.4) fL Immature Gran % (Auto) (0.0-0.4) % Neut % (Auto) (45-73) % Lymph % (Auto) (20-40) % [place] % (Auto) (2-11) % Eos % (Auto) (0-4) % Baso % (Auto) (0-2) % Lymph # (Auto) (1.2-4.9) X10*3/uL [place] # (Auto) (0.1-1.2) X10*3/uL Eos # (Auto) (0.0-0.4) X10*3/uL Baso # (Auto) (0.0-0.2) X10*3/uL Abs Immat Gran (auto) (0.00-0.03) X10*3/uL Absolute Neuts (auto) (2.0-8.3) x10*3/uL Absolute Nucleated RBC (0.0-0.012) X10*3/uL Nucleated RBC % (auto) (0.0-0.2) /100WBC VBG pH 7.46 H (7.32-7.43) VBG pCO2 53 mmHg VBG pO2 48 mmHg VBG HCO3 38 H (22-26) mmol/L VBG O2 Saturation 77.0 % VBG Base Excess 12.8 mmol/L Sodium (135-145) mmol/L Potassium (3.3-5.1) mmol/L Chloride (96-108) mmol/L Carbon Dioxide (22-29) mmol/L Anion Gap (12-20) BUN (9-16) mg/dL Creatinine (0.5-1.4) mg/dL Estim Creat Clear Calc Estimated GFR POC Glucose (60-115) mg/dL Random Glucose (60-115) mg/dL Lactic Acid (0.5-2.0) mmol/L Calcium (8.4-10.2) mg/dL Total Bilirubin (0.0-1.0) mg/dL Direct Bilirubin (0.0-0.5) mg/dL AST (5-37) U/L ALT (0-40) U/L Alkaline Phosphatase (39-117) U/L Troponin I High Sens (<3.5-35.0) ng/L Total Protein (6.5-8.0) g/dL Albumin (3.5-5.0) g/dL Lipase (8-78) U/L Urine Color Urine Appearance Urine pH (5.0-9.0) Ur Specific [place] (1.005-1.025) Urine Protein (Neg-Trace) mg/dL Urine Glucose (UA) (Negative) mg/dL Urine Ketones (Negative) mg/dL Urine Blood (Negative) Urine Nitrite (Negative) Ur Leukocyte Esterase (Negative) <Rubi Enamorado, [employer] - Last Filed: 11/14/22 16:26> Lab Results 11/14/22 11/14/22 11/14/22 Range/Units 15:43 16:10 16:10 WBC 13.7 H (4.8-10.8) X10*3/uL RBC 4.22 L (4.60-5.80) X10*6/uL Hgb 11.9 L (14.0-18.0) g/dl Hct 35.8 L (42.0-52.0) % MCV 84.8 (80.0-98.0) fL MCH 28.2 (27.0-33.0) pg MCHC 33.2 (31.0-36.0) g/dl RDW 13.9 (11.0-16.0) % Plt Count 327 (160-400) X10*3/uL MPV 9.7 (9.4-12.4) fL Immature Gran % (Auto) 0.8 H (0.0-0.4) % Neut % (Auto) 84.3 H (45-73) % Lymph % (Auto) 8.1 L (20-40) % [place] % (Auto) 6.5 (2-11) % Eos % (Auto) 0.1 (0-4) % Baso % (Auto) 0.2 (0-2) % Lymph # (Auto) 1.1 L (1.2-4.9) X10*3/uL [place] # (Auto) 0.9 (0.1-1.2) X10*3/uL Eos # (Auto) 0.0 (0.0-0.4) X10*3/uL Baso # (Auto) 0.0 (0.0-0.2) X10*3/uL Abs Immat Gran (auto) 0.11 H (0.00-0.03) X10*3/uL Absolute Neuts (auto) 11.5 H (2.0-8.3) x10*3/uL Absolute Nucleated RBC 0.000 (0.0-0.012) X10*3/uL Nucleated RBC % (auto) 0.0 (0.0-0.2) /100WBC VBG pH (7.32-7.43) VBG pCO2 mmHg VBG pO2 mmHg VBG HCO3 (22-26) mmol/L VBG O2 Saturation % VBG Base Excess mmol/L Sodium 130 L (135-145) mmol/L Potassium 4.4 (3.3-5.1) mmol/L Chloride 83 L (96-108) mmol/L Carbon Dioxide 34 H (22-29) mmol/L Anion Gap 17 (12-20) BUN 36 H (9-16) mg/dL Creatinine 1.20 (0.5-1.4) mg/dL Estim Creat Clear Calc -15.9 Estimated GFR > 60 POC Glucose 121 H (60-115) mg/dL Random Glucose 101 (60-115) mg/dL Lactic Acid (0.5-2.0) mmol/L Calcium 9.8 (8.4-10.2) mg/dL Total Bilirubin 1.1 H (0.0-1.0) mg/dL Direct Bilirubin 0.3 (0.0-0.5) mg/dL AST 15 (5-37) U/L ALT 12 (0-40) U/L Alkaline Phosphatase 78 (39-117) U/L Troponin I High Sens (<3.5-35.0) ng/L Total Protein 7.0 (6.5-8.0) g/dL Albumin 4.3 (3.5-5.0) g/dL Lipase 26 (8-78) U/L Urine Color Urine Appearance Urine pH (5.0-9.0) Ur Specific [place] (1.005-1.025) Urine Protein (Neg-Trace) mg/dL Urine Glucose (UA) (Negative) mg/dL Urine Ketones (Negative) mg/dL Urine Blood (Negative) Urine Nitrite (Negative) Ur Leukocyte Esterase (Negative) 11/14/22 11/14/22 11/14/22 Range/Units 16:10 17:23 17:31 WBC (4.8-10.8) X10*3/uL RBC (4.60-5.80) X10*6/uL Hgb (14.0-18.0) g/dl Hct (42.0-52.0) % MCV (80.0-98.0) fL MCH (27.0-33.0) pg MCHC (31.0-36.0) g/dl RDW (11.0-16.0) % Plt Count (160-400) X10*3/uL MPV (9.4-12.4) fL Immature Gran % (Auto) (0.0-0.4) % Neut % (Auto) (45-73) % Lymph % (Auto) (20-40) % [place] % (Auto) (2-11) % Eos % (Auto) (0-4) % Baso % (Auto) (0-2) % Lymph # (Auto) (1.2-4.9) X10*3/uL [place] # (Auto) (0.1-1.2) X10*3/uL Eos # (Auto) (0.0-0.4) X10*3/uL Baso # (Auto) (0.0-0.2) X10*3/uL Abs Immat Gran (auto) (0.00-0.03) X10*3/uL Absolute Neuts (auto) (2.0-8.3) x10*3/uL Absolute Nucleated RBC (0.0-0.012) X10*3/uL Nucleated RBC % (auto) (0.0-0.2) /100WBC VBG pH 7.48 H (7.32-7.43) VBG pCO2 57 mmHg VBG pO2 33 mmHg VBG HCO3 42 H (22-26) mmol/L VBG O2 Saturation 51.0 % VBG Base Excess 16.3 mmol/L Sodium (135-145) mmol/L Potassium (3.3-5.1) mmol/L Chloride (96-108) mmol/L Carbon Dioxide (22-29) mmol/L Anion Gap (12-20) BUN (9-16) mg/dL Creatinine (0.5-1.4) mg/dL Estim Creat Clear Calc Estimated GFR POC Glucose (60-115) mg/dL Random Glucose (60-115) mg/dL Lactic Acid 0.8 (0.5-2.0) mmol/L Calcium (8.4-10.2) mg/dL Total Bilirubin (0.0-1.0) mg/dL Direct Bilirubin (0.0-0.5) mg/dL AST (5-37) U/L ALT (0-40) U/L Alkaline Phosphatase (39-117) U/L Troponin I High Sens 10.5 D (<3.5-35.0) ng/L Total Protein (6.5-8.0) g/dL Albumin (3.5-5.0) g/dL Lipase (8-78) U/L Urine Color Urine Appearance Urine pH (5.0-9.0) Ur Specific [place] (1.005-1.025) Urine Protein (Neg-Trace) mg/dL Urine Glucose (UA) (Negative) mg/dL Urine Ketones (Negative) mg/dL Urine Blood (Negative) Urine Nitrite (Negative) Ur Leukocyte Esterase (Negative) 11/14/22 11/14/22 11/14/22 Range/Units 18:39 22:43 22:49 WBC (4.8-10.8) X10*3/uL RBC (4.60-5.80) X10*6/uL Hgb (14.0-18.0) g/dl Hct (42.0-52.0) % MCV (80.0-98.0) fL MCH (27.0-33.0) pg MCHC (31.0-36.0) g/dl RDW (11.0-16.0) % Plt Count (160-400) X10*3/uL MPV (9.4-12.4) fL Immature Gran % (Auto) (0.0-0.4) % Neut % (Auto) (45-73) % Lymph % (Auto) (20-40) % [place] % (Auto) (2-11) % Eos % (Auto) (0-4) % Baso % (Auto) (0-2) % Lymph # (Auto) (1.2-4.9) X10*3/uL [place] # (Auto) (0.1-1.2) X10*3/uL Eos # (Auto) (0.0-0.4) X10*3/uL Baso # (Auto) (0.0-0.2) X10*3/uL Abs Immat Gran (auto) (0.00-0.03) X10*3/uL Absolute Neuts (auto) (2.0-8.3) x10*3/uL Absolute Nucleated RBC (0.0-0.012) X10*3/uL Nucleated RBC % (auto) (0.0-0.2) /100WBC VBG pH (7.32-7.43) VBG pCO2 mmHg VBG pO2 mmHg VBG HCO3 (22-26) mmol/L VBG O2 Saturation % VBG Base Excess mmol/L Sodium 130 L 131 L (135-145) mmol/L Potassium 3.4 D 3.8 (3.3-5.1) mmol/L Chloride 90 L 90 L (96-108) mmol/L Carbon Dioxide 31 H 31 H (22-29) mmol/L Anion Gap 12 14 (12-20) BUN 32 H 27 H (9-16) mg/dL Creatinine 0.95 1.00 (0.5-1.4) mg/dL Estim Creat Clear Calc -20.0 -19.0 Estimated GFR > 60 > 60 POC Glucose (60-115) mg/dL Random Glucose 93 93 (60-115) mg/dL Lactic Acid (0.5-2.0) mmol/L Calcium 8.4 D 8.9 (8.4-10.2) mg/dL Total Bilirubin 0.9 1.1 H (0.0-1.0) mg/dL Direct Bilirubin (0.0-0.5) mg/dL AST 13 14 (5-37) U/L ALT 9 9 (0-40) U/L Alkaline Phosphatase 64 69 (39-117) U/L Troponin I High Sens (<3.5-35.0) ng/L Total Protein 5.8 L 6.1 L (6.5-8.0) g/dL Albumin 3.6 3.8 (3.5-5.0) g/dL Lipase (8-78) U/L Urine Color Yellow Urine Appearance Clear Urine pH 7.5 (5.0-9.0) Ur Specific [place] >= 1.030 H (1.005-1.025) Urine Protein Trace (Neg-Trace) mg/dL Urine Glucose (UA) 100 H (Negative) mg/dL Urine Ketones Negative (Negative) mg/dL Urine Blood Negative (Negative) Urine Nitrite Negative (Negative) Ur Leukocyte Esterase Negative (Negative) 11/14/22 Range/Units 22:53 WBC (4.8-10.8) X10*3/uL RBC (4.60-5.80) X10*6/uL Hgb (14.0-18.0) g/dl Hct (42.0-52.0) % MCV (80.0-98.0) fL MCH (27.0-33.0) pg MCHC (31.0-36.0) g/dl RDW (11.0-16.0) % Plt Count (160-400) X10*3/uL MPV (9.4-12.4) fL Immature Gran % (Auto) (0.0-0.4) % Neut % (Auto) (45-73) % Lymph % (Auto) (20-40) % [place] % (Auto) (2-11) % Eos % (Auto) (0-4) % Baso % (Auto) (0-2) % Lymph # (Auto) (1.2-4.9) X10*3/uL [place] # (Auto) (0.1-1.2) X10*3/uL Eos # (Auto) (0.0-0.4) X10*3/uL Baso # (Auto) (0.0-0.2) X10*3/uL Abs Immat Gran (auto) (0.00-0.03) X10*3/uL Absolute Neuts (auto) (2.0-8.3) x10*3/uL Absolute Nucleated RBC (0.0-0.012) X10*3/uL Nucleated RBC % (auto) (0.0-0.2) /100WBC VBG pH 7.46 H (7.32-7.43) VBG pCO2 53 mmHg VBG pO2 48 mmHg VBG HCO3 38 H (22-26) mmol/L VBG O2 Saturation 77.0 % VBG Base Excess 12.8 mmol/L Sodium (135-145) mmol/L Potassium (3.3-5.1) mmol/L Chloride (96-108) mmol/L Carbon Dioxide (22-29) mmol/L Anion Gap (12-20) BUN (9-16) mg/dL Creatinine (0.5-1.4) mg/dL Estim Creat Clear Calc Estimated GFR POC Glucose (60-115) mg/dL Random Glucose (60-115) mg/dL Lactic Acid (0.5-2.0) mmol/L Calcium (8.4-10.2) mg/dL Total Bilirubin (0.0-1.0) mg/dL Direct Bilirubin (0.0-0.5) mg/dL AST (5-37) U/L ALT (0-40) U/L Alkaline Phosphatase (39-117) U/L Troponin I High Sens (<3.5-35.0) ng/L Total Protein (6.5-8.0) g/dL Albumin (3.5-5.0) g/dL Lipase (8-78) U/L Urine Color Urine Appearance Urine pH (5.0-9.0) Ur Specific [place] (1.005-1.025) Urine Protein (Neg-Trace) mg/dL Urine Glucose (UA) (Negative) mg/dL Urine Ketones (Negative) mg/dL Urine Blood (Negative) Urine Nitrite (Negative) Ur Leukocyte Esterase (Negative) <MARTHA Rabago - Last Filed: 11/15/22 01:02> Independent Interpretation I performed an independent interpretation of an: EKG <Rubi Enamorado NP - Last Filed: 11/14/22 16:26> Interpretation: EKG: normal sinus rhythm, rate 86, normal PA interval <Rubi Enamorado NP - Last Filed: 11/14/22 16:26> External Record Review External record reviewed: Inpatient record, Office record and Outpatient record <Rubi Enamorado NP - Last Filed: 11/14/22 16:26> Chronic Conditions Patient?s care impacted by: Other (alcohol abuse) <Rubi Enamorado NP - Last Filed: 11/14/22 16:26> Critical Care Time Critical Care Time Critical Care Time: No <MARTHA Rabago - Last Filed: 11/15/22 01:02> Discharge Plan Discharge Clinical Impression: Abdominal pain, Nausea & vomiting <Rubi Enamorado NP - Last Filed: 11/14/22 16:26> Patient Disposition: Admitted As Inpatient <Rubi Enamorado NP - Last Filed: 11/14/22 16:26> Prescriptions: No Action duloxetine 30 mg capsule,delayed release(DR/EC) 1 cap PO BID lisinopril 10 mg tablet 10 mg PO DAILY gabapentin 300 mg capsule 300 mg PO BID melatonin 5 mg tablet 5 mg BEDTIME Eliquis DVT-PE Treat 30D Start 5 mg (74 tabs) tablets,dose pack 10 mg PO BID Rx Instructions: FROM 11/03 TO 11/11 thiamine HCl (vitamin B1) 100 mg tablet 100 mg PO DAILY pantoprazole 40 mg tablet,delayed release (DR/EC) 40 mg PO BID folic acid 1 mg tablet 1 mg PO DAILY multivitamin with folic acid [Tab-A-Harper] 400 mcg tablet 1 tab PO DAILY acamprosate 333 mg tablet,delayed release (DR/EC) 666 mg PO TID Eliquis DVT-PE Treat 30D Start 5 mg (74 tabs) tablets,dose pack 5 mg PO BID <Rubi Enamorado NP - Last Filed: 11/14/22 16:26>
--- NOTE | 2022-11-14 15:18 | ECG_ITS ---
Test Reason : ABDOMINAL PAIN Blood Pressure : / mmHG Vent. Rate : 086 BPM Atrial Rate : 086 BPM P-R Int : 166 ms QRS Dur : 096 ms QT Int : 384 ms P-R-T Axes : 051 003 040 degrees QTc Int : 459 ms Normal sinus rhythm Normal ECG When compared with ECG of 04-NOV-2022 15:57, No significant change was found Referred By: Rubi Enamorado Electronically Signed By:ALFREDO LAROSN MD
[2022-11-14] MEDS: Magnesium Hydrox/Alum Hydrox 30 ML ORAL.SUSP PO (15:39)
[2022-11-14] MEDS: Lidocaine HCl Viscous 2 % 15 ML SOLUTION MUCOUS MEM (15:39)
[2022-11-14] MEDS: Ondansetron ODT 4 MG TAB.RAPDIS TRANSLINGU (15:39)
[2022-11-14 15:46] LABS: Glucose, Whole Blood 121 mg/dL (60-115)
[2022-11-14 15:58] VITALS: BP 121/75; PULSE 87; RESP 16; TEMP 37.3; O2SAT 97
[2022-11-14 16:15] LABS: MANUAL DIFF FLAG NO
[2022-11-14 16:16] LABS: Basophils Percent Auto 0.2 % (0-2); Eosinophils Percent Auto 0.1 % (0-4); Hematocrit 35.8 % (42.0-52.0); Hemoglobin 11.9 g/dl (14.0-18.0); Imm Gran Abs Auto 0.11 X10*3/uL (0.00-0.03); Imm Gran Pct Auto 0.8 % (0.0-0.4); Lymphocytes Absolute Auto 1.1 X10*3/uL (1.2-4.9); Lymphocytes Percent Auto 8.1 % (20-40); Mean Corpuscular HGB Conc 33.2 g/dl (31.0-36.0); Mean Corpuscular Hemoglobin 28.2 pg (27.0-33.0); Mean Corpuscular Volume 84.8 fL (80.0-98.0); Mean Platelet Volume 9.7 fL (9.4-12.4); Monocytes Absolute Auto 0.9 X10*3/uL (0.1-1.2); Monocytes Percent Auto 6.5 % (2-11); Neutrophils Absolute Auto 11.5 x10*3/uL (2.0-8.3); Neutrophils Percent Auto 84.3 % (45-73); Platelet Count 327 X10*3/uL (160-400); Red Blood Count 4.22 X10*6/uL (4.60-5.80); Red Cell Distribution Width 13.9 % (11.0-16.0); White Blood Count 13.7 X10*3/uL (4.8-10.8)
[2022-11-14 16:30] LABS: Alanine Aminotransferase 12 U/L (0-40); Albumin Level 4.3 g/dL (3.5-5.0); Alkaline Phosphatase 78 U/L (39-117); Anion Gap 17 (12-20); Aspartate Amino Transferase 15 U/L (5-37); Bilirubin Direct 0.3 mg/dL (0.0-0.5); Bilirubin Total 1.1 mg/dL (0.0-1.0); Blood Urea Nitrogen 36 mg/dL (9-16); Calcium 9.8 mg/dL (8.4-10.2); Carbon Dioxide 34 mmol/L (22-29); Chloride 83 mmol/L (96-108); Creatinine Clr Calc Pharmacy -15.9; Estimated Glomerular Filt Rate > 60; Glucose Random 101 mg/dL (60-115); Lipase 26 U/L (8-78); Potassium 4.4 mmol/L (3.3-5.1); Sodium 130 mmol/L (135-145)
[2022-11-14 16:37] LABS: Troponin-I High Sensitivity 10.5 ng/L (<3.5-35.0)
[2022-11-14] MEDS: iohexoL 350 MG/ML 100 ML INFUS..BTL IV (16:49)
[2022-11-14] MEDS: diphenhydrAMINE HCL 50 MG/ML VIAL IVPUSH (16:52)
[2022-11-14] MEDS: Metoclopramide HCl 10 MG/2 ML VIAL IVPUSH (16:52)
[2022-11-14] MEDS: 0.9 % Sodium Chloride 1,000 ML 999 ML IV ×4 (16:52→23:07)
--- NOTE | 2022-11-14 16:53 | MHC.EDTECH ---
Brought patient warm blanket and a pillow.
[2022-11-14 17:38] LABS: VBG Base Excess 16.3 mmol/L; VBG HCO3 42 mmol/L (22-26); VBG pCO2 57 mmHg; VBG pH 7.48 (7.32-7.43); VBG pO2 33 mmHg
[2022-11-14 17:43] LABS: Venous Blood Gas Refer to POC result
[2022-11-14 17:58] LABS: Lactic Acid 0.8 mmol/L (0.5-2.0)
[2022-11-14 19:12] LABS: Alanine Aminotransferase 9 U/L (0-40); Albumin Level 3.6 g/dL (3.5-5.0); Alkaline Phosphatase 64 U/L (39-117); Anion Gap 12 (12-20); Aspartate Amino Transferase 13 U/L (5-37); Bilirubin Total 0.9 mg/dL (0.0-1.0); Blood Urea Nitrogen 32 mg/dL (9-16); Calcium 8.4 mg/dL (8.4-10.2); Carbon Dioxide 31 mmol/L (22-29); Chloride 90 mmol/L (96-108); Estimated Glomerular Filt Rate > 60; Glucose Random 93 mg/dL (60-115); Potassium 3.4 mmol/L (3.3-5.1); Sodium 130 mmol/L (135-145); Total Protein 5.8 g/dL (6.5-8.0)
[2022-11-14 22:36] VITALS: BP 115/57; PULSE 83; RESP 13; TEMP 37.7; O2SAT 95
[2022-11-14 22:58] LABS: Appearance Urine Clear; Color Urine Yellow; Glucose Urine UA 100 mg/dL (Negative); Leukocyte Esterase Urine Negative (Negative); Nitrite Urine Negative (Negative); PH 7.5 (5.0-9.0); Specific Gravity - Urine >= 1.030 (1.005-1.025); Urine Blood Negative (Negative); Urine Ketones Negative (Negative); Urine Protein Trace mg/dL (Neg-Trace)
[2022-11-14 23:00] LABS: VBG Base Excess 12.8 mmol/L; VBG HCO3 38 mmol/L (22-26); VBG pCO2 53 mmHg; VBG pH 7.46 (7.32-7.43); VBG pO2 48 mmHg
[2022-11-14 23:02] LABS: Venous Blood Gas Refer to POC result
[2022-11-14 23:15] LABS: Alanine Aminotransferase 9 U/L (0-40); Albumin Level 3.8 g/dL (3.5-5.0); Alkaline Phosphatase 69 U/L (39-117); Anion Gap 14 (12-20); Aspartate Amino Transferase 14 U/L (5-37); Bilirubin Total 1.1 mg/dL (0.0-1.0); Blood Urea Nitrogen 27 mg/dL (9-16); Calcium 8.9 mg/dL (8.4-10.2); Carbon Dioxide 31 mmol/L (22-29); Chloride 90 mmol/L (96-108); Estimated Glomerular Filt Rate > 60; Glucose Random 93 mg/dL (60-115); Potassium 3.8 mmol/L (3.3-5.1); Sodium 131 mmol/L (135-145); Total Protein 6.1 g/dL (6.5-8.0)
[2022-11-15] MEDS: Prochlorperazine Edisylate 10 MG/2 ML VIAL IVPUSH (01:59)
[2022-11-15] MEDS: Pantoprazole Sodium 40 MG/10 ML VIAL IVPUSH ×2 (01:59→06:42)
[2022-11-15] MEDS: 0.9 % Sodium Chloride 1,000 ML 100 ML IVCONT (02:05)
--- NOTE | 2022-11-15 03:35 | MHC.EDTECH ---
just taken over this assignment, vitals taken and entered
[2022-11-15 03:39] VITALS: BP 101/58; PULSE 78; RESP 16; TEMP 36.6; O2SAT 96
[2022-11-15] MEDS: PHENobarbitaL sodium 130 MG/ML IM ONCE 278 MG IM (04:25)
--- NOTE | 2022-11-15 04:49 | PC.NURSE ---
Patient currently sleeping. IV infusion running. Medications administer per SEP. Reported given to KEENAN Jay on overflow unit. Transferred by instrumentation technician
[2022-11-15 05:59] LABS: MANUAL DIFF FLAG NO
[2022-11-15 06:04] LABS: Basophils Absolute Auto 0.1 X10*3/uL (0.0-0.2); Basophils Percent Auto 0.4 % (0-2); Eosinophils Percent Auto 0.3 % (0-4); Hematocrit 31.4 % (42.0-52.0); Hemoglobin 10.3 g/dl (14.0-18.0); Imm Gran Abs Auto 0.08 X10*3/uL (0.00-0.03); Imm Gran Pct Auto 0.6 % (0.0-0.4); Lymphocytes Absolute Auto 1.6 X10*3/uL (1.2-4.9); Lymphocytes Percent Auto 11.6 % (20-40); Mean Corpuscular HGB Conc 32.8 g/dl (31.0-36.0); Mean Corpuscular Hemoglobin 28.1 pg (27.0-33.0); Mean Corpuscular Volume 85.8 fL (80.0-98.0); Mean Platelet Volume 9.6 fL (9.4-12.4); Monocytes Absolute Auto 1.1 X10*3/uL (0.1-1.2); Neutrophils Absolute Auto 10.6 x10*3/uL (2.0-8.3); Neutrophils Percent Auto 79.1 % (45-73); Platelet Count 274 X10*3/uL (160-400); Red Blood Count 3.66 X10*6/uL (4.60-5.80); Red Cell Distribution Width 13.8 % (11.0-16.0); White Blood Count 13.4 X10*3/uL (4.8-10.8)
--- NOTE | 2022-11-15 06:05 | PM.IMHP ---
History of Present Illness Date of Service: 11/15/22 Chief Complaint: Nausea vomiting This is a 49-year-old male past medical history of alcohol abuse, hypertension, who presents to the hospital with complaints of intractable nausea vomiting, as well as epigastric abdominal pain. Patient reports that he has been excessively drinking every day, last drink was 17:00, he has been experiencing epigastric abdominal pain that is constant, nonradiating, associated with burning sensation, no relieving factors, as well as constant nausea and vomiting. He denies any chest pain, no shortness of breath, no diarrhea or constipation, no urinary symptoms and no lower extremity edema. On arrival to the ED patient hemodynamically stable with no significant abnormal vitals labs are significant for WBC count of 13.7, hemoglobin of will in 0.9, hematocrit of 35.8, pH of 7.48, sodium 130, chloride of 83, bicarb of 34, creatinine of 1.2 with a baseline well on 0.9, UA negative Abdomen pelvic CT shows circumferential wall thickening in the distal esophagitis potentially due to esophagitis, diverticulosis with no diverticulitis Patient was treated with multiple antiemetics, pain medication, but he continues to have nausea and vomiting, patient will be admitted for further management Review of Systems Review of Systems: Yes all other systems are reviewed and are negative [facility] Medical History EtOH dependence Hypertension Substance abuse Surgical History History of total right hip replacement Social History Alcohol intake: current Alcohol intake frequency: 0-2 drinks per day Patient Tobacco Use Status: Refuse Tobacco use screen Substance Use Type: Heroin Advance Directives: No Advance Directives Information Provided: No Meds Allergies Allergy/AdvReac Type Severity Reaction Status Date / Time bee pollen [BEE STINGS] Allergy Severe SWELLING Verified 11/04/22 14:19 Active Medications: Current Medications Sodium Chloride (Ns) 1,000 mls @ 100 mls/hr IVCONT .Q10H [facility] Last Admin: 11/15/22 02:05 Dose: 100 mls/hr Pantoprazole Sodium (Pantoprazole Sodium 40 Mg/10 Ml Vial) 40 mg IVPUSH BID@0630,1630 [facility] Pharmacy Consult (Consult Rx Etoh Phenob Im/Po) 1 each MISCELLANE ONCE PRN; Protocol PRN Reason: Consult order Pharmacy Consult (Consult Rx Perform Med Rec) 1 each MISCELLANE ONCE PRN PRN Reason: Consult order Phenobarbital Sodium (Phenobarbital Sodium 130 Mg/Ml Vial Im Q3hx2) 208 mg IM Q3H [facility] Stop: 11/15/22 09:01 Prochlorperazine Edisylate (Prochlorperazine Edisylate 10 Mg/2 Ml Vial) 5 mg IVPUSH Q4H PRN PRN Reason: Nausea and Vomiting Sodium Chloride (0.9 % Sodium Chloride Flush 3 Ml Syringe) 3 ml IVFLUSH QSHIFT [facility] Home Medications Medication Instructions Recorded Confirmed Last Taken Type duloxetine 30 mg capsule,delayed 1 cap PO BID 08/04/21 11/04/22 11/03/22 History release acamprosate 333 mg tablet,delayed 666 mg PO TID 11/04/22 11/04/22 11/03/22 History release apixaban 5 mg (74 tabs) tablets in 5 mg PO BID 11/04/22 11/04/22 Unknown History a dose pack (Eliquis DVT-PE Treat Start) apixaban 5 mg (74 tabs) tablets in 10 mg PO BID 11/04/22 11/04/22 11/04/22 History a dose pack (Eliquis DVT-PE Treat Start) folic acid 1 mg tablet 1 mg PO DAILY 11/04/22 11/04/22 11/03/22 History gabapentin 300 mg capsule 300 mg PO BID 11/04/22 11/04/22 11/04/22 History lisinopril 10 mg tablet 10 mg PO DAILY 11/04/22 11/04/22 11/04/22 History melatonin 5 mg tablet 5 mg BEDTIME 11/04/22 11/04/22 11/03/22 History multivitamin with folic acid 400 1 tab PO DAILY 11/04/22 11/04/22 Unknown History mcg tablet (Tab-A-Harper) pantoprazole 40 mg tablet,delayed 40 mg PO BID 11/04/22 11/04/22 11/04/22 History release thiamine HCl (vitamin B1) 100 mg 100 mg PO DAILY 11/04/22 11/04/22 11/04/22 History tablet Physical Exam Vital Signs and Narrative: Vital Signs: Last Vital Signs Temp 97.8 F 11/15/22 03:39 Pulse 78 11/15/22 03:39 Resp 16 11/15/22 03:39 BP 101/58 L 11/15/22 03:39 Pulse Ox 96 11/15/22 03:39 O2 Del Method Room Air 11/14/22 22:36 BMI result Body Mass Index 2987.8 Const: Other: Ill appearing General: cooperative and no acute distress Orientation/consciousness: patient oriented x3 Eyes: General: appearance normal, both eyes and all related structures Resp: Effort & Inspection: normal respiratory effort Auscultation: clear to auscultation bilaterally Cardio: Rate: regular rate Rhythm: regular rhythm GI: Other: Diffuse abdominal tenderness, no rebound or guarding Palpation (GI): Soft to palpation Auscultation: normal bowel sounds Skin: General skin exam: no rashes or lesions noted Neuro: General: patient oriented x3 Cognition (Neuro): normal cognition Extrem: General: Yes normal to inspection and Yes no pedal edema Results Labs 11/15/22 05:53 11/14/22 22:43 Labs: Laboratory Results - last 24 hr 11/14/22 11/14/22 11/14/22 15:43 16:10 16:10 MCV 84.8 MCH 28.2 MCHC 33.2 RDW 13.9 Plt Count 327 MPV 9.7 Immature Gran % (Auto) 0.8 H Neut % (Auto) 84.3 H Lymph % (Auto) 8.1 L [place] % (Auto) 6.5 Eos % (Auto) 0.1 Baso % (Auto) 0.2 Lymph # (Auto) 1.1 L [place] # (Auto) 0.9 Eos # (Auto) 0.0 Baso # (Auto) 0.0 Abs Immat Gran (auto) 0.11 H Absolute Neuts (auto) 11.5 H Absolute Nucleated RBC 0.000 Nucleated RBC % (auto) 0.0 VBG pH VBG pCO2 VBG pO2 VBG HCO3 VBG O2 Saturation VBG Base Excess Anion Gap 17 Estim Creat Clear Calc -15.9 Estimated GFR > 60 POC Glucose 121 H Random Glucose 101 Lactic Acid Calcium 9.8 Total Bilirubin 1.1 H Direct Bilirubin 0.3 AST 15 ALT 12 Alkaline Phosphatase 78 Troponin I High Sens Total Protein 7.0 Albumin 4.3 Lipase 26 Urine Color Urine Appearance Urine pH Ur Specific [place] Urine Protein Urine Glucose (UA) Urine Ketones Urine Blood Urine Nitrite Ur Leukocyte Esterase 11/14/22 11/14/22 11/14/22 16:10 17:23 17:31 MCV MCH MCHC RDW Plt Count MPV Immature Gran % (Auto) Neut % (Auto) Lymph % (Auto) [place] % (Auto) Eos % (Auto) Baso % (Auto) Lymph # (Auto) [place] # (Auto) Eos # (Auto) Baso # (Auto) Abs Immat Gran (auto) Absolute Neuts (auto) Absolute Nucleated RBC Nucleated RBC % (auto) VBG pH 7.48 H VBG pCO2 57 VBG pO2 33 VBG HCO3 42 H VBG O2 Saturation 51.0 VBG Base Excess 16.3 Anion Gap Estim Creat Clear Calc Estimated GFR POC Glucose Random Glucose Lactic Acid 0.8 Calcium Total Bilirubin Direct Bilirubin AST ALT Alkaline Phosphatase Troponin I High Sens 10.5 D Total Protein Albumin Lipase Urine Color Urine Appearance Urine pH Ur Specific [place] Urine Protein Urine Glucose (UA) Urine Ketones Urine Blood Urine Nitrite Ur Leukocyte Esterase 11/14/22 11/14/22 11/14/22 18:39 22:43 22:49 MCV MCH MCHC RDW Plt Count MPV Immature Gran % (Auto) Neut % (Auto) Lymph % (Auto) [place] % (Auto) Eos % (Auto) Baso % (Auto) Lymph # (Auto) [place] # (Auto) Eos # (Auto) Baso # (Auto) Abs Immat Gran (auto) Absolute Neuts (auto) Absolute Nucleated RBC Nucleated RBC % (auto) VBG pH VBG pCO2 VBG pO2 VBG HCO3 VBG O2 Saturation VBG Base Excess Anion Gap 12 14 Estim Creat Clear Calc -20.0 -19.0 Estimated GFR > 60 > 60 POC Glucose Random Glucose 93 93 Lactic Acid Calcium 8.4 D 8.9 Total Bilirubin 0.9 1.1 H Direct Bilirubin AST 13 14 ALT 9 9 Alkaline Phosphatase 64 69 Troponin I High Sens Total Protein 5.8 L 6.1 L Albumin 3.6 3.8 Lipase Urine Color Yellow Urine Appearance Clear Urine pH 7.5 Ur Specific [place] >= 1.030 H Urine Protein Trace Urine Glucose (UA) 100 H Urine Ketones Negative Urine Blood Negative Urine Nitrite Negative Ur Leukocyte Esterase Negative 11/14/22 11/15/22 22:53 05:53 MCV 85.8 MCH 28.1 MCHC 32.8 RDW 13.8 Plt Count 274 MPV 9.6 Immature Gran % (Auto) 0.6 H Neut % (Auto) 79.1 H Lymph % (Auto) 11.6 L [place] % (Auto) 8.0 Eos % (Auto) 0.3 Baso % (Auto) 0.4 Lymph # (Auto) 1.6 [place] # (Auto) 1.1 Eos # (Auto) 0.0 Baso # (Auto) 0.1 Abs Immat Gran (auto) 0.08 H Absolute Neuts (auto) 10.6 H Absolute Nucleated RBC 0.000 Nucleated RBC % (auto) 0.0 VBG pH 7.46 H VBG pCO2 53 VBG pO2 48 VBG HCO3 38 H VBG O2 Saturation 77.0 VBG Base Excess 12.8 Anion Gap Estim Creat Clear Calc Estimated GFR POC Glucose Random Glucose Lactic Acid Calcium Total Bilirubin Direct Bilirubin AST ALT Alkaline Phosphatase Troponin I High Sens Total Protein Albumin Lipase Urine Color Urine Appearance Urine pH Ur Specific [place] Urine Protein Urine Glucose (UA) Urine Ketones Urine Blood Urine Nitrite Ur Leukocyte Esterase Imaging Radiologist's Impressions: Impressions Abdomen/Pelvis CT 11/14/22 16:49 IMPRESSION: 1. Circumferential wall thickening in the distal esophagus, potentially due to esophagitis. Consider correlation with endoscopy to exclude an underlying lesion. Otherwise, no acute abnormalities identified in the abdomen and pelvis. 2. Mild colonic diverticulosis without evidence of acute diverticulitis. Fleischner guidelines were followed. Assessment and Plan (1) Abdominal pain: Status: Acute (2) Intractable nausea and vomiting: Status: Acute (3) Alcohol abuse with withdrawal: Status: Acute (4) Hyponatremia: Status: Acute (5) Esophagitis: Status: Acute Plan She 7-year-old male with past medical history of alcohol abuse daily presents to the hospital with complaints of abdominal pain, intractable nausea vomiting # abdominal pain, nausea vomiting - likely secondary to esophagitis in the setting of alcohol abuse, versus gastritis - abdominal pelvic CT shows esophagitis, although mass cannot be ruled out - at this time will treat with antiemetics, IV fluids, supportive care, - given esophagitis, will start PPI IV b.i.d. - will also consult GI # esophagitis - in the setting of alcohol abuse - started on PPI IV b.i.d. - GI consulted # alcohol abuse with withdrawal - started on phenobarb protocol - folic and thiamine supplement # hyponatremia - mild - likely secondary to beer proteinemia versus oral losses in the setting of vomiting - placed on NS - follow BMP # hypertension - stable - continue antihypertensives DVT prophylaxis: Lovenox Given intractable nausea vomiting, also need for evaluation by GI patient will require minimum 2 nights inpatient hospital stay for further management monitor Time Spent With Patient Time: Total time managing care of this patient today ____ minutes. Quality Stroke Does the patient have a stroke diagnosis?: No VTE Prior VTE?: No VTE Risk Level:: Medical - low VTE Device Contraindication: Treatment Not Indicated VTE Drug Contraindication: Treatment Not Indicated
[2022-11-15 06:32] LABS: Anion Gap 10 (12-20); Blood Urea Nitrogen 21 mg/dL (9-16); Calcium 8.8 mg/dL (8.4-10.2); Carbon Dioxide 32 mmol/L (22-29); Chloride 94 mmol/L (96-108); Creatinine Clr Calc Pharmacy 92.9; Estimated Glomerular Filt Rate > 60; Glucose Random 89 mg/dL (60-115); Potassium 3.3 mmol/L (3.3-5.1); Sodium 133 mmol/L (135-145)
[2022-11-15] MEDS: PHENobarbitaL sodium 130 MG/ML VIAL IM Q3Hx2 208 MG IM ×2 (06:43→10:30)
--- NOTE | 2022-11-15 08:55 | PC.NURSE ---
Pt pulled out his own IV
--- NOTE | 2022-11-15 09:31 | PHA.MEDREC ---
Pharmacy Consult ? Medication Reconciliation Pharmacy has completed the medication reconciliation. Spoke to patient to confirm meds. Patient states that he stopped taking his medications (didn't specify for how long) and stated that he only takes aspirin 81 mg daily. However, when looking at his pharmacy claim history, it showed recent fills for several meds within the last month (10/21/22, 11/03/22). When looking at a previous discharge on 11/04/22, previous med rec done on this patient documented that the patient was still taking these medications. When I asked why he stopped taking his medications, he provided no reasoning. Even with him stating that he only takes aspirin, I confirmed all recent fill medications that he was previously taking based on claim history.
[2022-11-15] MEDS: Folic Acid 1 MG TABLET PO (10:31)
--- NOTE | 2022-11-15 10:43 | PC.NURSE ---
Pt pulled out IV earlier today, does not want another one, MD Reilly aware.
--- NOTE | 2022-11-15 11:41 | MHC.CM.PN ---
EMR REVIEWED, PT ADMITTED W/INTRACTABLE NV/GASTRITIS, CM MET W/PT WHO IS A&O HOWEVER SOFT SPOKE AND POOR EYE CONTACT, PT REPORTS HE LIVES W/HIS BROTHER QUAN, DENIES USE OF DME/HOME SERVICES. PT DENIES RECEIVING COVID VAX, EDUCATED ON AND DECLINES TO COMPLETE A HCP AND VERIFIES PCP ANDREA VALLES. ANTIC D/C HOME NO SERVICES W/RECOVERY TEAM IF PT DOES NOT LEAVE AMA, PT'S BROTHER WILL TRANSPORT
--- NOTE | 2022-11-15 12:27 | MHC.RECOVRN ---
This proposal lead writer met with patient after addiction consult was placed. Patient was resting in bed, lights dimmed. Patient awake to verbal command, patient request to sleep, declined to speak with this proposal lead writer. Patient agreeable to addiction/recovery team returning at another time.
[2022-11-15] MEDS: Thiamine HCL 100 MG TABLET PO (15:58)
--- NOTE | 2022-11-15 17:26 | P.CNGI_ITS ---
History of Present Illness Data of Consult Service Date: 11/15/22 Requesting physician: Jasvir Ledesma Primary Care Provider: Unknown Physician HPI Reason for consult: nausea and vomiting 49-year-old male past medical history of alcohol abuse, hypertension, who I am seeing for nausea and vomiting. He is an admitted alcoholic, drinks few bottles of vodka every few days for years. Last few days he noted persistent nausea and non bloody emesis with mild epigastric pain which is constant, and burning with no radiation and no relieving or exacerbating factors. Denies nsaid use. He denies any chest pain, no shortness of breath, no diarrhea or constipation, no urinary symptoms and no lower extremity edema.? Labs: WBC count of 13.7, hemoglobin 11.9, hematocrit of 35.8, pH of 7.48, sodium 130, chloride of 83, bicarb of 34, creatinine of 1.2 with a baseline well on 0.9, UA negative Imaging: Abdomen pelvic CT; circumferential wall thickening in the distal esophagitis potentially due to esophagitis, diverticulosis with no diverticulitis Review of Systems Review of Systems: Constitutional : No Weight loss, No Fever, No Chills ENT/Mouth : No sore throat, No Rhinorrhea Eyes: No Swelling, No Redness Cardiovascular : No Chest Pain, No SOB, No Edema Respiratory : No Cough, No Sputum, No Wheezing Gastrointestinal : see HPI Genitourinary : NO Dysuria, No Urinary Frequency, No Hematuria, No Urgency Musculoskeletal : No joint pain, No Myalgias, No Joint Swelling Skin : No Skin Lesions, No rash Neuro : No Weakness, No Numbness, No Dizziness, No Headache Psych : No Anxiety/Panic, No Depression Heme/Lymph: No Bruising, No Lymphadenopathy Endocrine : No Polyuria, No Polydipsia All other systems reviewed and are negative. [facility] Past Medical History Medical History EtOH dependence Hypertension Substance abuse Family History Pertinent family history: No FH of esophagitis Surgical History Surgical History History of total right hip replacement Social History Social History Alcohol intake: current Alcohol intake frequency: 0-2 drinks per day Patient Tobacco Use Status: Refuse Tobacco use screen Substance Use Type: Heroin Advance Directives: No Advance Directives Information Provided: No service: No Current occupational status: unemployed Meds Allergies Allergy/AdvReac Type Severity Reaction Status Date / Time bee pollen [BEE STINGS] Allergy Severe SWELLING Verified 11/04/22 14:19 Active Medications: Current Medications Folic Acid (Folic Acid 1 Mg Tablet) 1 mg PO DAILY [facility] Last Admin: 11/15/22 10:31 Dose: 1 mg Omeprazole (Omeprazole 20 Mg Capsule.Dr) 20 mg PO BID@0630,1630 [facility] Pharmacy Consult (Consult Rx Etoh Phenob Im/Po) 1 each MISCELLANE ONCE PRN; Protocol PRN Reason: Consult order Pharmacy Consult (Consult Rx Perform Med Rec) 1 each MISCELLANE ONCE PRN PRN Reason: Consult order Phenobarbital (Phenobarbital 15 Mg Tablet) 45 mg PO BID [facility] Stop: 11/17/22 09:01 Phenobarbital (Phenobarbital 15 Mg Tablet) 15 mg PO BID [facility] Stop: 11/19/22 09:01 Phenobarbital (Phenobarbital 15 Mg Tablet) 15 mg PO DAILY [facility] Stop: 11/21/22 09:01 Prochlorperazine Edisylate (Prochlorperazine Edisylate 10 Mg/2 Ml Vial) 5 mg IVPUSH Q4H PRN PRN Reason: Nausea and Vomiting Thiamine HCl (Thiamine Hcl 100 Mg Tablet) 100 mg PO DAILY [facility] Last Admin: 11/15/22 15:58 Dose: 100 mg Home Medications Medication Instructions Recorded Confirmed Last Taken Type apixaban 5 mg (74 tabs) tablets in 5 mg PO BID 11/04/22 11/15/22 Unknown History a dose pack (Eliquis DVT-PE Treat 30D Start) folic acid 1 mg tablet 1 mg PO DAILY 11/04/22 11/15/22 11/03/22 History gabapentin 300 mg capsule 300 mg PO BID 11/04/22 11/15/22 11/04/22 History lisinopril 10 mg tablet 10 mg PO DAILY 11/04/22 11/15/22 11/04/22 History melatonin 5 mg tablet 5 mg BEDTIME 11/04/22 11/15/22 11/03/22 History multivitamin with folic acid 400 1 tab PO DAILY 11/04/22 11/15/22 Unknown History mcg tablet (Tab-A-Harper) pantoprazole 40 mg tablet,delayed 40 mg PO BID 11/04/22 11/15/22 11/04/22 History release thiamine HCl (vitamin B1) 100 mg 100 mg PO DAILY 11/04/22 11/15/22 11/04/22 History tablet aspirin 81 mg tablet,delayed 81 mg PO DAILY 11/15/22 11/15/22 Unknown History release nicotine (polacrilex) 4 mg gum 4 mg PO Q1-2H PRN Nicotine Cravings 11/15/22 11/15/22 Unknown History Physical Exam Vital Signs: Vital Signs: Last Vital Signs Temp 97.8 F 11/15/22 03:39 Pulse 78 11/15/22 03:39 Resp 16 11/15/22 03:39 BP 101/58 L 11/15/22 03:39 Pulse Ox 96 11/15/22 03:39 O2 Del Method Room Air 11/14/22 22:36 BMI result Body Mass Index 2987.8 EXAM: GENERAL: The patient is dishevelled VITAL SIGNS:see workflow HEENT: Nonicteric sclerae, PERRLA, EOMI. Oropharynx clear. Moist mucous membranes. Conjunctivae appear well perfused. No thyroid mass. CHEST: Chest wall is nontender. HEART: Regular rate and rhythm without murmurs. LUNGS: Clear to auscultation bilaterally. ABDOMEN: Soft, positive bowel sounds, nontender, no organomegaly.no flank tenderness SKIN: No rash, no excessive bruising, petechiae, or purpura. NEUROLOGIC: Cranial nerves II-XII intact without motor/sensory deficit. psych-nml Results Labs 11/15/22 05:53 11/15/22 05:53 Labs: Short CBC 11/15/22 Range/Units 05:53 WBC 13.4 H (4.8-10.8) X10*3/uL Hgb 10.3 L (14.0-18.0) g/dl Hct 31.4 L (42.0-52.0) % Plt Count 274 (160-400) X10*3/uL BMP 11/14/22 11/14/22 11/15/22 18:39 22:43 05:53 Sodium 130 L 131 L 133 L Potassium 3.4 D 3.8 3.3 Chloride 90 L 90 L 94 L Carbon Dioxide 31 H 31 H 32 H BUN 32 H 27 H 21 H Creatinine 0.95 1.00 0.85 Calcium 8.4 D 8.9 8.8 Liver Function 11/14/22 11/14/22 Range/Units 18:39 22:43 Total Bilirubin 0.9 1.1 H (0.0-1.0) mg/dL AST 13 14 (5-37) U/L ALT 9 9 (0-40) U/L Alkaline Phosphatase 64 69 (39-117) U/L Albumin 3.6 3.8 (3.5-5.0) g/dL Urine 11/14/22 Range/Units 22:49 Urine Color Yellow Urine Appearance Clear Urine pH 7.5 (5.0-9.0) Ur Specific Weld >= 1.030 H (1.005-1.025) Urine Protein Trace (Neg-Trace) mg/dL Urine Glucose (UA) 100 H (Negative) mg/dL Imaging CT scan - abdomen: Attestation: I personally reviewed and interpreted this imaging study as follows: My impression: atherosclerosis, wedge fractures-spine, thickened esophagus and stomach Assessment and Plan (1) Intractable nausea and vomiting: Status: Acute Plan 1/ Persistent nausea and vomiting with thickened stomach and esophagus on imaging suggestive of alcoholic related gastritis and esophagitis, ddx; neoplasia and ulceration PLAN: 1/ cont with anti nausea meds and PPI, can add carafate, if sx persist inspite fo medical intervention then EGD and biopsy 2/ check HIV and Hep B, C Time Spent With Patient Time: Total time managing care of this patient today ____ minutes. Procedures Date of Service Date of Service: 11/15/22
[2022-11-15] MEDS: Omeprazole 20 MG CAPSULE.DR PO (17:43)
[2022-11-15 20:00] VITALS: BP 111/56; PULSE 71; RESP 20; TEMP 36.6; O2SAT 100
[2022-11-15] MEDS: PHENobarbitaL 15 MG TABLET 45 MG PO (21:14)
[2022-11-15 23:31] VITALS: BP 124/68; PULSE 68; RESP 18; TEMP 36.2; O2SAT 95
[2022-11-16 03:31] VITALS: BP 124/68; PULSE 78; RESP 18; TEMP 36.2; O2SAT 95
[2022-11-16] MEDS: Omeprazole 20 MG CAPSULE.DR PO (06:20)
[2022-11-16 06:48] LABS: MANUAL DIFF FLAG NO
[2022-11-16 06:57] LABS: Basophils Absolute Auto 0.1 X10*3/uL (0.0-0.2); Eosinophils Absolute Auto 0.2 X10*3/uL (0.0-0.4); Eosinophils Percent Auto 1.6 % (0-4); Hematocrit 34.4 % (42.0-52.0); Hemoglobin 11.1 g/dl (14.0-18.0); Imm Gran Abs Auto 0.05 X10*3/uL (0.00-0.03); Imm Gran Pct Auto 0.5 % (0.0-0.4); Lymphocytes Absolute Auto 2.2 X10*3/uL (1.2-4.9); Lymphocytes Percent Auto 23.6 % (20-40); Mean Corpuscular HGB Conc 32.3 g/dl (31.0-36.0); Mean Corpuscular Hemoglobin 28.1 pg (27.0-33.0); Mean Corpuscular Volume 87.1 fL (80.0-98.0); Mean Platelet Volume 10.5 fL (9.4-12.4); Monocytes Absolute Auto 0.7 X10*3/uL (0.1-1.2); Neutrophils Absolute Auto 6.1 x10*3/uL (2.0-8.3); Neutrophils Percent Auto 65.3 % (45-73); Platelet Count 281 X10*3/uL (160-400); Red Blood Count 3.95 X10*6/uL (4.60-5.80); Red Cell Distribution Width 13.5 % (11.0-16.0); White Blood Count 9.3 X10*3/uL (4.8-10.8)
[2022-11-16] MEDS: PHENobarbitaL 15 MG TABLET 45 MG PO (07:26)
[2022-11-16 07:27] LABS: Anion Gap 14 (12-20); Blood Urea Nitrogen 15 mg/dL (9-16); Calcium 8.9 mg/dL (8.4-10.2); Carbon Dioxide 28 mmol/L (22-29); Chloride 96 mmol/L (96-108); Estimated Glomerular Filt Rate > 60; Glucose Random 74 mg/dL (60-115); Potassium 3.4 mmol/L (3.3-5.1); Sodium 135 mmol/L (135-145)
[2022-11-16] MEDS: Folic Acid 1 MG TABLET PO (07:27)
[2022-11-16] MEDS: Thiamine HCL 100 MG TABLET PO (07:27)
[2022-11-16 07:42] VITALS: BP 123/73; PULSE 65; RESP 18; TEMP 37.1; O2SAT 100
[2022-11-16 09:20] VITALS: BMI 20.7
--- NOTE | 2022-11-16 10:25 | HO.PM.IMPN ---
Subjective Subjective Date of Service: 11/16/22 Interval History: f/u on n/v, gastritis interval history: still with [id number] Physical Exam Vital Signs: Vital Signs: Last Vital Signs Temp 98.8 F 11/16/22 07:42 Pulse 65 11/16/22 07:42 Resp 18 11/16/22 07:42 BP 123/73 11/16/22 07:42 Pulse Ox 100 11/16/22 07:42 O2 Del Method Room Air 11/16/22 07:42 BMI result Body Mass Index 20.7 Const: Other: General: AO X 3, no acute distress Resp: CTA bilateral CVS: S1,S2,RRR GI: +BS, NT, no distention Skin: No rash Neuro: motor grossly intact Psych: appropriate affect Objective Data Active Medications Aspirin (Aspirin Enteric Coated 81 Mg Tablet.) 81 mg PO DAILY [facility] Folic Acid (Folic Acid 1 Mg Tablet) 1 mg PO DAILY [facility] Last Admin: 11/16/22 07:27 Dose: 1 mg Documented By: ILEANA Folic Acid (Folic Acid 1 Mg Tablet) 1 mg PO DAILY [facility] Gabapentin (Gabapentin 300 Mg Capsule) 300 mg PO BID [facility] Lisinopril (Lisinopril 10 Mg Tablet) 10 mg PO DAILY [facility]; Protocol Nicotine Polacrilex (Nicotine Polacrilex 2 Mg Gum) 4 mg BUCCAL Q1-2H PRN PRN Reason: Nicotine Cravings Non-Formulary Medication (Apixaban [Eliquis Dvt-Pe Treat 30d Start]) 5 mg PO BID [facility] Non-Formulary Medication (Pantoprazole) 40 mg PO BID [facility] Omeprazole (Omeprazole 20 Mg Capsule.) 20 mg PO BID@0630,1630 [facility] Last Admin: 11/16/22 06:20 Dose: 20 mg Documented By: CASA Pharmacy Consult (Consult Rx Etoh Phenob Im/Po) 1 each MISCELLANE ONCE PRN; Protocol PRN Reason: Consult order Pharmacy Consult (Consult Rx Perform Med Rec) 1 each MISCELLANE ONCE PRN PRN Reason: Consult order Phenobarbital (Phenobarbital 15 Mg Tablet) 45 mg PO BID [facility] Stop: 11/17/22 09:01 Last Admin: 11/16/22 07:26 Dose: 45 mg Documented By: ILEANA Phenobarbital (Phenobarbital 15 Mg Tablet) 15 mg PO BID [facility] Stop: 11/19/22 09:01 Phenobarbital (Phenobarbital 15 Mg Tablet) 15 mg PO DAILY [facility] Stop: 11/21/22 09:01 Prochlorperazine Edisylate (Prochlorperazine Edisylate 10 Mg/2 Ml Vial) 5 mg IVPUSH Q4H PRN PRN Reason: Nausea and Vomiting Thiamine HCl (Thiamine Hcl 100 Mg Tablet) 100 mg PO DAILY [facility] Last Admin: 11/16/22 07:27 Dose: 100 mg Documented By: ILEANA Labs 11/16/22 05:44 11/16/22 05:45 Labs: Laboratory Results - last 24 hr 11/16/22 11/16/22 05:44 05:45 MCV 87.1 MCH 28.1 MCHC 32.3 RDW 13.5 Plt Count 281 MPV 10.5 Immature Gran % (Auto) 0.5 H Neut % (Auto) 65.3 Lymph % (Auto) 23.6 Harris % (Auto) 8.0 Eos % (Auto) 1.6 Baso % (Auto) 1.0 Lymph # (Auto) 2.2 Harris # (Auto) 0.7 Eos # (Auto) 0.2 Baso # (Auto) 0.1 Abs Immat Gran (auto) 0.05 H Absolute Neuts (auto) 6.1 Absolute Nucleated RBC 0.000 Nucleated RBC % (auto) 0.0 Anion Gap 14 Estim Creat Clear Calc 100.0 Estimated GFR > 60 Random Glucose 74 Calcium 8.9 Microbiology Microbiology Results: Microbiology 11/14/22 17:22 Blood Culture - Preliminary Blood - Venous No growth after 24 hours. 11/14/22 17:23 Blood Culture - Preliminary Blood - Venous No growth after 24 hours. Assessment and Plan (1) Esophagitis: Status: Acute (2) Alcohol abuse with withdrawal: Status: Acute (3) Abdominal pain: Status: Acute Plan She 57-year-old male with past medical history of alcohol abuse daily presents to the hospital with complaints of abdominal pain, intractable nausea vomiting # Abdominal pain, nausea vomiting - likely secondary to esophagitis in the setting of alcohol abuse, versus gastritis - abdominal pelvic CT shows esophagitis, although mass cannot be ruled out - at this time will treat with antiemetics, IV fluids, supportive care, - given esophagitis, will start PPI IV b.i.d. - GI recommends EGD if symptoms persists # esophagitis--- - in the setting of alcohol abuse - PPI IV b.i.d. - EGD if symptoms persists # alcohol abuse with withdrawal - started on phenobarb protocol - folic and thiamine supplement # hypOnatremia--resolved. # h/o DVT on eliquis for more than 6 months, will look into some more # hypertension - stable - continue antihypertensives DVT prophylaxis:? Lovenox Given intractable nausea vomiting, also need for evaluation by GI patient will require minimum 2 nights inpatient hospital stay for further management monitor Time Spent With Patient Time: Total time managing care of this patient today ____ minutes. Quality Stroke Does the patient have a stroke diagnosis?: No VTE Prior VTE?: No VTE Risk Level:: Medical - low VTE Device Contraindication: Treatment Not Indicated VTE Drug Contraindication: Treatment Not Indicated
--- NOTE | 2022-11-16 11:32 | HE.PHANOTE ---
Patient is on Eliquis at home. Patient was start on phenobabrital for alcohol withdrawal. Phenobarbital increases the risk of bleeding when on eliquis, therefore I recommended to Dr. Miramontes to switch patient to therapeutic lovenox while on the phenobarbital protocol. Dr. Miramontes agree, order switched to lovenox 70mg q12H. Maria Teresa Reno, PhillipD
[2022-11-16 11:34] LABS: HBS Num1 7.93 mIU/mL (0-7.99); HBc Num1 7.76 S/CO (0.00-0.79); HBsAGNum1 0.29 S/CO (0.00-0.99); HIV AB/AG Nonreactive (Nonreactive); HIV Num 1 0.07 S/CO (0.00-0.99); Hepatitis B Surface Antigen Negative (Negative); ~HepC Num1 11.04 S/CO (0.00-0.79); ~Hepatitis B Surface Antibody NONREACTIVE (Nonreactive); ~Hepatitis C Antibody Reactive (Nonreactive)
[2022-11-16] MEDS: Enoxaparin Sodium 80 MG/0.8 ML SYRINGE 70 MG SUBCUT (12:27)
--- NOTE | 2022-11-16 12:41 | P.DS_ITS ---
DS: Providers Provider Date of Service: 11/16/22 Date of admission: 11/15/22 00:55 Primary care physician: Maximo Morfin MD Consults: 11/15/22 06:10 Consult to Gastroenterology Routine Consulting Provider: Christian Duval Reason for consultation: Abdominal pain, nausea vomiting, CT showing possible mass? Has provider been notified: No 11/15/22 09:58 Addiction Medicine Routine Consulting Provider: Addiction Covering Reason for consultation: alcohol use disorder DS: Diagnosis Discharge Diagnosis (1) Esophagitis: Status: Acute (2) Alcohol abuse with withdrawal: Status: Acute (3) Abdominal pain: Status: Acute DS: Summary Hospital Course Hospital Course: Chief Complaint: Nausea vomiting This is a 49-year-old male past medical history of alcohol abuse, hypertension, who presents to the hospital with complaints of intractable nausea vomiting, as well as epigastric abdominal pain.? Patient reports that he has been excessively drinking every day, last drink was 17:00, he has been experiencing epigastric abdominal pain that is constant, nonradiating, associated with burning sensation, no relieving factors, as well as constant nausea and vomiting. He denies any chest pain, no shortness of breath, no diarrhea or constipation, no urinary symptoms and no lower extremity edema.? On arrival to the ED patient hemodynamically stable with no significant abnormal vitals ?labs are significant for WBC count of 13.7, hemoglobin of will in 0.9, hematocrit of 35.8, pH of 7.48, sodium 130, chloride of 83, bicarb of 34, creatinine of 1.2 with a baseline well on 0.9, UA negative Abdomen pelvic CT shows circumferential wall thickening in the distal esophagitis potentially due to esophagitis, diverticulosis with no diverticulitis Patient was treated with multiple antiemetics, pain medication, but he continues to have nausea and vomiting, patient will be admitted for further management hospital course: Pt request to leave because they could not locate his belongings, including walet and other items of value to him. While i don't think his medical issues are optimized, he still doesn't want to stay and will proceed to sign against medical advised and he's sternly advised against this. He is alert, oriented to self, place and time. He understands that leaving could jeorpardize his health but he is assuming all responsibility, including getting sicker and even potentially leading to his . He is advised to take all his medication as usual and to follow up with his [facility] within a week, he is to call arrange for follow up Time Spent with Patient Time attestation: Total time managing care of this patient today ____ minutes. Discharge coordination time: Greater than 30 minutes Quality: Safe Use of Opioids Does Pt have an Active Cancer Diagnosis on the Problem List?: No Quality: Stroke Does the patient have a stroke diagnosis?: No Physical Exam Vital Signs: Vital Signs: Last Vital Signs Temp 98.8 F 11/16/22 07:42 Pulse 65 11/16/22 07:42 Resp 18 11/16/22 07:42 BP 123/73 11/16/22 07:42 Pulse Ox 100 11/16/22 07:42 O2 Del Method Room Air 11/16/22 07:42 BMI result Body Mass Index 20.7 DS: Data Data Completed and Pending Labs on day of discharge: Laboratory Results - last 24 hr 11/16/22 11/16/22 11/16/22 05:44 05:45 10:38 WBC 9.3 RBC 3.95 L Hgb 11.1 L Hct 34.4 L MCV 87.1 MCH 28.1 MCHC 32.3 RDW 13.5 Plt Count 281 MPV 10.5 Immature Gran % (Auto) 0.5 H Neut % (Auto) 65.3 Lymph % (Auto) 23.6 Jennings % (Auto) 8.0 Eos % (Auto) 1.6 Baso % (Auto) 1.0 Lymph # (Auto) 2.2 Jennings # (Auto) 0.7 Eos # (Auto) 0.2 Baso # (Auto) 0.1 Abs Immat Gran (auto) 0.05 H Absolute Neuts (auto) 6.1 Absolute Nucleated RBC 0.000 Nucleated RBC % (auto) 0.0 Sodium 135 Potassium 3.4 Chloride 96 Carbon Dioxide 28 Anion Gap 14 BUN 15 Creatinine 0.79 Estim Creat Clear Calc 100.0 Estimated GFR > 60 Random Glucose 74 Calcium 8.9 Hep Bs Antigen Negative Hep Bs Antibody NONREACTIVE Hepatitis C Ab (EIA) Reactive H HIV 1&2 Ab/P24 Ag 4thGn Nonreactive Preliminary micro results at discharge 11/14/22 17:22 Blood Culture - Preliminary Blood - Venous No growth after 24 hours. 11/14/22 17:23 Blood Culture - Preliminary Blood - Venous No growth after 24 hours. Discharge Plan Discharge Anticipated Discharge Date/Time: 11/16/22 13:01 Patient Disposition: Left Against Medical Advice Discharge Diagnosis: Alcoholic gastritis Referrals: Maximo Morfin MD [Primary Care Provider] - 1 Week Discharge Medications: No Action lisinopril 10 mg tablet 10 mg PO DAILY gabapentin 300 mg capsule 300 mg PO BID melatonin 5 mg tablet 5 mg BEDTIME thiamine HCl (vitamin B1) 100 mg tablet 100 mg PO DAILY pantoprazole 40 mg tablet,delayed release (DR/EC) 40 mg PO BID folic acid 1 mg tablet 1 mg PO DAILY multivitamin with folic acid [Tab-A-Harper] 400 mcg tablet 1 tab PO DAILY Eliquis DVT-PE Treat 30D Start 5 mg (74 tabs) tablets,dose pack 5 mg PO BID nicotine (polacrilex) 4 mg gum 4 mg PO Q4H ferrous sulfate 325 mg (65 mg iron) tablet,delayed release (DR/EC) 325 mg PO TID Eliquis 5 mg tablet 5 mg PO BID Qty: 60 0RF nicotine (polacrilex) 4 mg gum 4 mg PO Q1-2H PRN (Reason: Nicotine Cravings) aspirin 81 mg Tablet,Delayed Release (Dr/Ec) 81 mg PO DAILY Discharge Orders: Discharge Order (Routine); Ordered 01/03/23 Ordered By: Santiago Miramontes Diet: Diabetic diet Activity on Discharge: As tolerated Care Plan Goals: left ama Health Concerns: left ama Plan of Treatment: left ama Assessment: left ama Discharge Date/Time: 11/16/22 14:21
[2022-11-16 14:09] LABS: HBc Num2 8.01 S/CO; HBc Num3 8.32 S/CO; Hepatitis B Core Antibody Reactive (Nonreactive)
--- NOTE | 2022-11-16 14:25 | MHC.RECOVRN ---
Attempted to meet with pt prior to dc, however, when t/w got to the floor, pt had already walked out. RN aware and completed AMA paperwork.
[2022-11-18 07:34] LABS: Hepatitis B Core Antibody IgM NON-REACTIVE (NON-REACTIVE)
== END 2022-11-16 14:21 | disposition left against medical advice (07) ==
LOC: HO.ED 11-15 01:02 → HO.EDOVER 11-15 01:19 → HO.S3 11-15 17:33
PROVIDERS: Physician Assistant; Registered Nurse Emergency; Student in an Organized Health Care Education/Training Program; Admitting Provider Internal Medicine; Emergency Provider Emergency Medicine; PCP Internal Medicine; Visit Provider Internal Medicine
DX: K29.20 Alcoholic gastritis without bleeding (principal); F10.230 Alcohol dependence with withdrawal, uncomplicated; Y90.0 Blood alcohol level of less than 20 mg/100 ml; K20.90 Esophagitis, unspecified without bleeding; K57.30 Diverticulosis of large intestine without perforation or abscess without bleeding; R10.13 Epigastric pain; R11.2 Nausea with vomiting, unspecified; B19.20 Unspecified viral hepatitis C without hepatic coma; D72.829 Elevated white blood cell count, unspecified; D64.9 Anemia, unspecified; I10 Essential (primary) hypertension; F19.10 Other psychoactive substance abuse, uncomplicated; F17.200 Nicotine dependence, unspecified, uncomplicated; Z79.01 Long term (current) use of anticoagulants; Z79.899 Other long term (current) drug therapy
CPT/HCPCS: 36415; 74177; 80048; 80053; 80076; 81003; 82803; 82947; 83605; 83690; 84484; 85025; 86704; 86705; 86706; 86803; 87040; 87340; 87389; 93005; 96361; 96372; 96374; 96375; 96376; 99221; 99285; J1200; J1650; J2560; J2765; Q9967

== ENCOUNTER 2022-12-28 10:43 | Emergency (ER) | payer MEDICAID, SELFPAY ==
--- NOTE | ~2022-12-28 | XR_ITS ---
EXAMINATION: XR CHEST CLINICAL INFORMATION: Pain and shortness of breath COMPARISON: 11/04/2022 TECHNIQUE: 2 views of the chest were obtained. FINDINGS: Lungs are clear. Cardiomediastinal silhouette is normal. There are multiple plates in the right hip cage of indeterminate age. XR/XR chest 2V IMPRESSION: No active cardiopulmonary disease
[2022-12-28 10:49] VITALS: BP 110/70; PULSE 70; O2SAT 98
[2022-12-28 11:02] VITALS: BP 106/68; RESP 15; TEMP 35.7; O2SAT 98; BMI 23.6
--- NOTE | 2022-12-28 11:09 | ED.ALCOHOL ---
HPI - Alcohol General Chief Complaint: ETOH/Substance Use Stated Complaint: ETOH INTOX,WANTS DETOX,H/O FX RIBS W/PAIN/SOB Time Seen by Provider: 12/28/22 11:01 Source: patient, EMS and old records reviewed Mode of arrival: EMS Limitations: no limitations History of Present Illness HPI narrative: 49-year-old male with history of alcohol use disorder, multiple ER visits for alcohol, history of depression, chronic pain, alcohol withdrawal, rib fractures, pulmonary embolism on Eliquis who presents to the ER from home via EMS for evaluation alcohol use and dependence, seeking detox. He also reports right-sided rib pain after he fell into the side of the bed a couple of days ago. He thinks he might have cracked a rib in has a history of the same. He reports pain with deep inspiration. No chest pain. No bruising on his flank or chest. He has been compliant with his blood thinners. When he fell he did not hit his head or lose consciousness. Patient reports he has been depressed lately, starting to feel suicidal as of a couple of days ago. He has not thought of a plan to harm himself. He has no history of self-harm. He states he has been drinking half a pt to a pt per day. His last drink was prior to arrival. He states he also uses cocaine, denies any heroin or fentanyl use. MD complaint: desires rehab Last drink: Hours (ago) Chronic alcohol use: Yes Previous visits for alcohol intoxication: Yes Recent trauma: Yes Associated symptoms: depression and suicidality Treatments prior to arrival: none Related Data Home Medications Medication Instructions Recorded Confirmed apixaban 5 mg (74 tabs) tablets in 5 mg PO BID 11/04/22 11/15/22 a dose pack (SpontoquVanDyne SuperTurbo DVT-PE Treat 30D Start) folic acid 1 mg tablet 1 mg PO DAILY 11/04/22 11/15/22 gabapentin 300 mg capsule 300 mg PO BID 11/04/22 11/15/22 lisinopril 10 mg tablet 10 mg PO DAILY 11/04/22 12/28/22 melatonin 5 mg tablet 5 mg BEDTIME 11/04/22 12/28/22 multivitamin with folic acid 400 1 tab PO DAILY 11/04/22 12/28/22 mcg tablet (Tab-A-Harper) pantoprazole 40 mg tablet,delayed 40 mg PO BID 11/04/22 12/28/22 release thiamine HCl (vitamin B1) 100 mg 100 mg PO DAILY 11/04/22 11/15/22 tablet aspirin 81 mg tablet,delayed 81 mg PO DAILY 11/15/22 11/15/22 release nicotine (polacrilex) 4 mg gum 4 mg PO Q1-2H PRN Nicotine Cravings 11/15/22 11/15/22 ferrous sulfate 325 mg (65 mg 325 mg PO TID 12/28/22 12/28/22 iron) tablet,delayed release nicotine (polacrilex) 4 mg gum 4 mg PO Q4H 12/28/22 12/28/22 Previous Rx's Medication Instructions Recorded apixaban 5 mg tablet (Eliquis) 5 mg PO BID #60 tabs 12/28/22 Allergies Allergy/AdvReac Type Severity Reaction Status Date / Time bee pollen [BEE STINGS] Allergy Severe SWELLING Verified 11/04/22 14:19 Review of Systems Review of Systems: Yes all other systems are reviewed and are negative [facility] Past Medical History Medical History EtOH dependence Hypertension Substance abuse Surgical History History of total right hip replacement Social History Social History Alcohol intake: current Alcohol intake frequency: 0-2 drinks per day Patient Tobacco Use Status: Former Tobacco user Substance Use Type: Heroin Advance Directives: No Advance Directives Information Provided: No service: No Current occupational status: unemployed Physical Exam ED Vital Signs: Vital Signs - 24 hr 12/28/22 11:02 12/28/22 12:05 12/28/22 14:40 Temperature 96.3 F L 98.4 F 98.9 F Pulse Rate 108 H 94 Respiratory Rate 15 18 14 Blood Pressure 106/68 129/68 115/51 L Pulse Oximetry 98 96 98 Oxygen Delivery Method Room Air Room Air BMI result Body Mass Index 23.6 Appearance: Alert. Oriented X3. No acute distress. Head: normocephalic, atraumatic. Eyes: Pupils equal, round and reactive to light. ENT: Pharynx normal. No tonsillar swelling or exudate. Neck: Normal inspection. Neck supple. CVS: Normal heart rate and rhythm. Pulses normal. Respiratory: No respiratory distress. Breath sounds normal. No chest wall ecchymosis. There is tenderness of the right lateral lower lip ribs with no palpable crepitus. Abdomen: Soft and nontender. +BS x4 Skin: Skin warm and dry. Normal skin color. Normal skin turgor. No rashes. Extremities: No lower extremity edema. No joint swelling. Neuro/psych: Oriented X 3. No motor deficit. No sensory deficit. CN II-XII intact. Normal speech and cognition. Depressed mood, flat affect. Positive suicidal thoughts. No auditory or visual hallucinations. Course Reevaluation(s) Reevaluation #1: Physician observation started at 12:06pm. Patient placed in physician observation because patient is awaiting CARE team evaluation for the possible need of inpatient psych admission. At the time observation was started patient's vital signs were stable. Patient is alert and oriented. Neuro exam is non-focal. CV: RRR and lungs are clear. Will continue to monitor. Time: 12:06 Reevaluation #2: Physician observation discontinued at this time. Patient will present to [facility] for detox tomorrow. They would like him to go with the prescription of Eliquis in hand. New prescription has been sent to his pharmacy. He will take it. Importance of compliance with this medication was stressed. He is stable for discharge home. Time: 16:12 Medical Decision Making Medical Decision Making MDM Narrative: 57 yo male with hx ETOH dependence here seeking detox. He fell 2 days ago against a bed and hurt his right ribs. No ecchymosis or point tenderness on examination. Low suspicion for rib fracture, and hemo thorax, pulmonary contusion. He is vital signs are stable his lungs are clear. Chest x-ray was normal. Lab work shows some acute on chronic anemia. LFTs unremarkable. ETOH level 98. He was seen by care team, he later declined his suicidality and states he only wanted detox. Recovery team met with the patient and he reportedly has been noncompliant with his Eliquis intermittently. They are requesting that he presents to detox with Eliquis prescription in hand. Prescription has been sent to his pharmacy and he will present 1st thing in the morning to [facility] for detox. Differential Diagnosis Differential Diagnoses: The differential diagnosis associated with the presentation includes alcohol intoxication, alcohol dependence, polysubstance abuse, substance induced mood disorder, acute psychosis, schizophrenia, schizoaffective disorder, PTSD, bipolar disorder, major depression with psychotic features Admission/Observation Consideration of admission/observation: Escalation of care including admission/observation considered suicidal, may require inpatient psych Consult Healthcare Provider Management of the patient was discussed with: [employer] CARE team Recovery Lab Data MDM Lab Attestation statement: I reviewed the patient's lab results. anemia, thrombocytosis 12/28/22 11:20 12/28/22 11:20 Labs: Lab Results 12/28/22 12/28/22 12/28/22 Range/Units 11:14 11:14 11:20 WBC 7.2 (4.8-10.8) X10*3/uL RBC 3.38 L (4.60-5.80) X10*6/uL Hgb 9.2 L (14.0-18.0) g/dl Hct 29.1 L (42.0-52.0) % MCV 86.1 (80.0-98.0) fL MCH 27.2 (27.0-33.0) pg MCHC 31.6 (31.0-36.0) g/dl RDW 14.2 (11.0-16.0) % Plt Count 544 H D (160-400) X10*3/uL MPV 8.8 L (9.4-12.4) fL Immature Gran % (Auto) 0.6 H (0.0-0.4) % Neut % (Auto) 66.4 (45-73) % Lymph % (Auto) 24.9 (20-40) % Arenac % (Auto) 6.5 (2-11) % Eos % (Auto) 0.8 (0-4) % Baso % (Auto) 0.8 (0-2) % Lymph # (Auto) 1.8 (1.2-4.9) X10*3/uL [place] # (Auto) 0.5 (0.1-1.2) X10*3/uL Eos # (Auto) 0.1 (0.0-0.4) X10*3/uL Baso # (Auto) 0.1 (0.0-0.2) X10*3/uL Abs Immat Gran (auto) 0.04 H (0.00-0.03) X10*3/uL Absolute Neuts (auto) 4.8 (2.0-8.3) x10*3/uL Absolute Nucleated RBC 0.000 (0.0-0.012) X10*3/uL Nucleated RBC % (auto) 0.0 (0.0-0.2) /100WBC Sodium (135-145) mmol/L Potassium (3.3-5.1) mmol/L Chloride (96-108) mmol/L Carbon Dioxide (22-29) mmol/L Anion Gap (12-20) BUN (9-16) mg/dL Creatinine (0.5-1.4) mg/dL Estim Creat Clear Calc Estimated GFR Random Glucose (60-115) mg/dL Calcium (8.4-10.2) mg/dL Magnesium (1.6-2.6) mg/dL Total Bilirubin (0.0-1.0) mg/dL Direct Bilirubin (0.0-0.5) mg/dL AST (5-37) U/L ALT (0-40) U/L Alkaline Phosphatase (39-117) U/L Total Protein (6.5-8.0) g/dL Albumin (3.5-5.0) g/dL Urine Color Yellow Urine Appearance Clear Urine pH 6.5 (5.0-9.0) Ur Specific Jackson 1.010 (1.005-1.025) Urine Protein Negative (Neg-Trace) mg/dL Urine Glucose (UA) Negative (Negative) mg/dL Urine Ketones Negative (Negative) mg/dL Urine Blood Negative (Negative) Urine Nitrite Negative (Negative) Ur Leukocyte Esterase Negative (Negative) Urine Opiates Screen POSITIVE H (Not Detect) Urine Fentanyl Screen POSITIVE H (Not Detect) Ur Barbiturates Screen POSITIVE H (Not Detect) Ur Phencyclidine Scrn Not Detected (Not Detect) Ur Amphetamines Screen Not Detected (Not Detect) U Benzodiazepines Scrn Not Detected (Not Detect) Urine Cocaine Screen Not Detected (Not Detect) U Marijuana (THC) Screen POSITIVE H (Not Detect) Ethyl Alcohol mg/dL 12/28/22 12/28/22 Range/Units 11:20 11:20 WBC (4.8-10.8) X10*3/uL RBC (4.60-5.80) X10*6/uL Hgb (14.0-18.0) g/dl Hct (42.0-52.0) % MCV (80.0-98.0) fL MCH (27.0-33.0) pg MCHC (31.0-36.0) g/dl RDW (11.0-16.0) % Plt Count (160-400) X10*3/uL MPV (9.4-12.4) fL Immature Gran % (Auto) (0.0-0.4) % Neut % (Auto) (45-73) % Lymph % (Auto) (20-40) % Arenac % (Auto) (2-11) % Eos % (Auto) (0-4) % Baso % (Auto) (0-2) % Lymph # (Auto) (1.2-4.9) X10*3/uL [place]ac # (Auto) (0.1-1.2) X10*3/uL Eos # (Auto) (0.0-0.4) X10*3/uL Baso # (Auto) (0.0-0.2) X10*3/uL Abs Immat Gran (auto) (0.00-0.03) X10*3/uL Absolute Neuts (auto) (2.0-8.3) x10*3/uL Absolute Nucleated RBC (0.0-0.012) X10*3/uL Nucleated RBC % (auto) (0.0-0.2) /100WBC Sodium 136 (135-145) mmol/L Potassium 4.3 D (3.3-5.1) mmol/L Chloride 103 (96-108) mmol/L Carbon Dioxide 25 (22-29) mmol/L Anion Gap 12 (12-20) BUN 10 (9-16) mg/dL Creatinine 0.74 (0.5-1.4) mg/dL Estim Creat Clear Calc 108.8 Estimated GFR > 60 Random Glucose 84 (60-115) mg/dL Calcium 9.2 (8.4-10.2) mg/dL Magnesium 2.0 (1.6-2.6) mg/dL Total Bilirubin 0.2 (0.0-1.0) mg/dL Direct Bilirubin < 0.2 (0.0-0.5) mg/dL AST 12 (5-37) U/L ALT 7 (0-40) U/L Alkaline Phosphatase 95 (39-117) U/L Total Protein 6.2 L (6.5-8.0) g/dL Albumin 3.4 L (3.5-5.0) g/dL Urine Color Urine Appearance Urine pH (5.0-9.0) Ur Specific Jackson (1.005-1.025) Urine Protein (Neg-Trace) mg/dL Urine Glucose (UA) (Negative) mg/dL Urine Ketones (Negative) mg/dL Urine Blood (Negative) Urine Nitrite (Negative) Ur Leukocyte Esterase (Negative) Urine Opiates Screen (Not Detect) Urine Fentanyl Screen (Not Detect) Ur Barbiturates Screen (Not Detect) Ur Phencyclidine Scrn (Not Detect) Ur Amphetamines Screen (Not Detect) U Benzodiazepines Scrn (Not Detect) Urine Cocaine Screen (Not Detect) U Marijuana (THC) Screen (Not Detect) Ethyl Alcohol 98 mg/dL Independent Interpretation I performed an independent interpretation of an: Plain X-Ray Interpretation: cxr w/ clear lungs, agree w/ radiology Radiology Impression Discussion of test interpretation with radiology: I have reviewed the radiologist's reading. Radiologist Impression: XR/XR chest 2V IMPRESSION: No active cardiopulmonary disease Independent Historian Clinical information obtained from an independent historian. History obtained from or confirmed by: EMS External Record Review External record reviewed: Office record, Outpatient record, Prior outpatient labs and Prior outpatient radiology Tests considered The following testing was considered but not selected: considered CTA given noncompliance w/ eliquis but would not exchange underwriting consultant - he needs to remain on anticoagulation Prescription Management I considered prescription management with: Other (eliquis) Chronic Conditions Patient?s care impacted by: Other (PE, alcoholism) Social Determinants Patient?s care significantly limited by Social Determinants of Health including: Alcoholism and drug addiction in family, Problems related to primary support group and Other Social Determinant of Health Medications Administered Discontinued Medications Generic Name Dose Route Start Last Admin Trade Name Freq PRN Reason Stop Dose Admin Al Hydroxide/Mg Hydroxide 30 ml 12/28/22 14:52 12/28/22 15:00 Magnesium Hydrox/Alum Hydrox 30 Ml Oral.Susp PO 12/28/22 14:53 30 ml ONCE ONE Administration Critical Care Time Critical Care Time Critical Care Time: No Discharge Plan Discharge Clinical Impression: Alcohol dependence, Depression Patient Disposition: Still a Patient Instructions: Alcohol Dependence (ED) Additional Instructions: stop drinking alcohol present directly to detox tomorrow morning WITH your eliquis with your continue your eliquis as directed - it is important that you do not stop taking this medication Prescriptions: New Eliquis 5 mg tablet 5 mg PO BID Qty: 60 0RF No Action lisinopril 10 mg tablet 10 mg PO DAILY gabapentin 300 mg capsule 300 mg PO BID melatonin 5 mg tablet 5 mg BEDTIME thiamine HCl (vitamin B1) 100 mg tablet 100 mg PO DAILY pantoprazole 40 mg tablet,delayed release (DR/EC) 40 mg PO BID folic acid 1 mg tablet 1 mg PO DAILY multivitamin with folic acid [Tab-A-Harper] 400 mcg tablet 1 tab PO DAILY Eliquis DVT-PE Treat 30D Start 5 mg (74 tabs) tablets,dose pack 5 mg PO BID nicotine (polacrilex) 4 mg gum 4 mg PO Q4H ferrous sulfate 325 mg (65 mg iron) tablet,delayed release (DR/EC) 325 mg PO TID nicotine (polacrilex) 4 mg gum 4 mg PO Q1-2H PRN (Reason: Nicotine Cravings) aspirin 81 mg Tablet,Delayed Release (Dr/Ec) 81 mg PO DAILY
[2022-12-28 11:25] LABS: MANUAL DIFF FLAG NO
[2022-12-28 11:27] LABS: Appearance Urine Clear; Color Urine Yellow; Glucose Urine UA Negative (Negative); Leukocyte Esterase Urine Negative (Negative); Nitrite Urine Negative (Negative); PH 6.5 (5.0-9.0); Urine Blood Negative (Negative); Urine Ketones Negative (Negative); Urine Protein Negative (Neg-Trace)
[2022-12-28 11:27] LABS: Basophils Absolute Auto 0.1 X10*3/uL (0.0-0.2); Basophils Percent Auto 0.8 % (0-2); Eosinophils Absolute Auto 0.1 X10*3/uL (0.0-0.4); Eosinophils Percent Auto 0.8 % (0-4); Hematocrit 29.1 % (42.0-52.0); Hemoglobin 9.2 g/dl (14.0-18.0); Imm Gran Abs Auto 0.04 X10*3/uL (0.00-0.03); Imm Gran Pct Auto 0.6 % (0.0-0.4); Lymphocytes Absolute Auto 1.8 X10*3/uL (1.2-4.9); Lymphocytes Percent Auto 24.9 % (20-40); Mean Corpuscular HGB Conc 31.6 g/dl (31.0-36.0); Mean Corpuscular Hemoglobin 27.2 pg (27.0-33.0); Mean Corpuscular Volume 86.1 fL (80.0-98.0); Mean Platelet Volume 8.8 fL (9.4-12.4); Monocytes Absolute Auto 0.5 X10*3/uL (0.1-1.2); Monocytes Percent Auto 6.5 % (2-11); Neutrophils Absolute Auto 4.8 x10*3/uL (2.0-8.3); Neutrophils Percent Auto 66.4 % (45-73); Platelet Count 544 X10*3/uL (160-400); Red Blood Count 3.38 X10*6/uL (4.60-5.80); Red Cell Distribution Width 14.2 % (11.0-16.0); White Blood Count 7.2 X10*3/uL (4.8-10.8)
[2022-12-28 11:38] LABS: Amphetamine Screen Urine Not Detected (Not Detect); Barbiturates, Urine POSITIVE (Not Detect); Benzodiazepines Screen Urine Not Detected (Not Detect); Cannabinoid Screen Urine POSITIVE (Not Detect); Cocaine Screen Urine Not Detected (Not Detect); Fentanyl, urine POSITIVE (Not Detect); Opiate Screen Urine POSITIVE (Not Detect); Phencyclidine Screen Urine Not Detected (Not Detect)
[2022-12-28 11:42] LABS: Ethanol 98 mg/dL
[2022-12-28 11:50] LABS: Alanine Aminotransferase 7 U/L (0-40); Albumin Level 3.4 g/dL (3.5-5.0); Alkaline Phosphatase 95 U/L (39-117); Anion Gap 12 (12-20); Aspartate Amino Transferase 12 U/L (5-37); Bilirubin Direct < 0.2 mg/dL (0.0-0.5); Bilirubin Total 0.2 mg/dL (0.0-1.0); Blood Urea Nitrogen 10 mg/dL (9-16); Calcium 9.2 mg/dL (8.4-10.2); Carbon Dioxide 25 mmol/L (22-29); Chloride 103 mmol/L (96-108); Creatinine Clr Calc Pharmacy 108.8; Estimated Glomerular Filt Rate > 60; Glucose Random 84 mg/dL (60-115); Potassium 4.3 mmol/L (3.3-5.1); Sodium 136 mmol/L (135-145); Total Protein 6.2 g/dL (6.5-8.0)
[2022-12-28 12:05] VITALS: BP 129/68; PULSE 108; RESP 18; TEMP 36.9; O2SAT 96
--- NOTE | 2022-12-28 13:10 | MHC.CARE ---
Pt is 57 year old male who presented to [facility] seeking detox admission and reported vague SI. Pts toxicology report was positive for opiates, fentanyl, barbiturates, marijuana and BAL was 98. CARE Team consult placed for vague SI. Pt? presents as alert, orientated and engaged. Pt asked t/w ?why am I in the behavioral health pod?.? T/w provided education of process regarding SI statement and meeting with clinician. Pt then repeatedly denied SI stating he was just here to go to detox. Pt denies current SI/HI/VH/AH. Pt denies hx of suicide attempts or features. Pt denies hx of IPLOC admission. Pt denies hx of mental health providers.? Pt reports longstanding hx of TATI. Pt reports ongoing alcohol, opiates and cocaine use.? Pt denies recent substance use treatment. Pt denies current MAT.? Pt is current undomiciled and primarily stays in the [facility] Pt declined behavioral health referrals at this time and requesting recovery team services. CARE Team reviewed case with MARTHA Thomas Plan for recovery team to be consulted.
--- NOTE | 2022-12-28 14:17 | MHC.RECOVRN ---
Addendum entered by Kathi Lopez RN 12/28/22 16:19: Pt reports only interested in tx at [facility], referral reviewed, per Madelin, pt can only present if Eliquis in hand, reviewed plan with Provider. Provider sent rx to [facility], pt to [facility]pler pickup med and present as walk in at [facility] tomorrow with Eliquis rx on person. T/W provided 4 bus passes. Pt verbalized understanding and in agreement with plan. Pt reports [facility] stay [facility] [place]. Original Note: This sql report writer met with patient after patient was cleared by the Care Team for vague SI. Pt requesting detox treatment. Pt states has been drinking quart Vodka daily for years. Last ETOH use [employer]. Pt reports 3-4 bags heroin, occasional use. Pt reports last opiate use yesterday, PO fentanyl pressed pill. Pt reports hx of treatment, ATS, CSS, TSS level of care. Pt reports had tried Campral in the past for alcohol use. Pt reports had tried MTD maintenance in the past for opiate use, pt reports last MTD dose 3-4 months ago. Pt currently reporting nausea, heartburn, bodyaches. ED RN aware of heartburn. Pt requesting MTD for withdrawal, this sql report writer to discuss with Provider. This sql report writer to begin ATS bedsearch.
[2022-12-28 14:40] VITALS: BP 115/51; PULSE 94; RESP 14; TEMP 37.2; O2SAT 98
[2022-12-28] MEDS: Magnesium Hydrox/Alum Hydrox 30 ML ORAL.SUSP PO (15:00)
== END 2022-12-28 16:43 | disposition still patient (30) ==
PROVIDERS: Physician Assistant; Emergency Provider Student in an Organized Health Care Education/Training Program; PCP Internal Medicine
DX: F33.1 Major depressive disorder, recurrent, moderate (principal); R45.851 Suicidal ideations; R07.81 Pleurodynia; R06.02 Shortness of breath; F10.229 Alcohol dependence with intoxication, unspecified; Y90.4 Blood alcohol level of 80-99 mg/100 ml; Z79.899 Other long term (current) drug therapy; Z79.01 Long term (current) use of anticoagulants
CPT/HCPCS: 36415; 71046; 80048; 80076; 80307; 81003; 83735; 85025; 99284

== ENCOUNTER 2023-03-31 12:26 | Emergency (ER) | payer MEDICAID, SELFPAY ==
--- NOTE | ~2023-03-31 | CT_ITS ---
EXAMINATION: CT chest, abdomen and pelvis with IV contrast. CLINICAL INDICATIONS: Fall, abdominal trauma and tenderness. COMPARISON: CT abdomen pelvis 11/14/[address] chest 11/04/2022. TECHNIQUE: 5 mm thin axial and reformatted 3 minutes thin sagittal and coronal images of chest, abdomen pelvis were obtained following IV however mL Omnipaque 350. DLP 621. This CT examination was performed using dose optimization technique as appropriate, variously including the following: Automated exposure control Adjustment of MA and/or KV according to patient size(this includes techniques or standardized protocols for targeted exams where dose is matched to indication/reason for exam; extremities or head. Use of iterative reconstruction techniques. FINDINGS: CHEST: LUNGS: The lungs are fairly well expanded. There is a 2.6 cm left lung base focal density question consolidation or nodule. MEDIASTINUM: The thyroid lobes are symmetrical and normal. There are punctate right lobe calcifications. Central trachea and the bronchi widely patent. Heart size and the great vessels are normal caliber. Small shotty lymph nodes are seen in the pretracheal space and aortic window. There is a small to moderate-sized hiatal hernia with diffuse mural thickening involving the mid and distal esophagus. PLEURA: There is no pleural effusion or thickening. AXILLA: There is no abnormal size axillary lymph nodes. The chest wall is unremarkable. OSSEOUS STRUCTURES: There are multiple rib fractures stabilized with metallic plate from fourth through eighth ribs. ABDOMEN AND PELVIS: LIVER, DUCTS AND GALLBLADDER: The liver is homogeneous in density, normal size and contour. There is a focal 3 minute hypodensity right hepatic lobe posterior segment image 14/35 other lesions seen. There is no intrahepatic ductal dilatation. The gallbladder is unremarkable. SPLEEN: Unremarkable. PANCREAS: There are arterial vascular calcifications superior to body of pancreas. The pancreas otherwise unremarkable. ADRENAL GLANDS: Unremarkable. KIDNEYS AND URETERS: There are left renal cysts, a 2.7 cm lower pole and 2.9 cm upper pole. No radiopaque calculi are hydronephrosis seen. Minimal lower pole perinephric stranding. LYMPHOVASCULAR STRUCTURES: Abdominal aorta is atherosclerotic but nondilated. Small shotty lymph nodes are seen in the retroperitoneum. No retroperitoneal mass or hematoma seen. ABDOMINAL WALL: Small medical hernia containing fat GI TRACT: There is a small hiatal hernia. The stomach is distended with recently ingested food. Partially opacified small bowel loops with oral contrast unremarkable. There is scattered stool and right colon. Appendix is normal caliber. No free air or free fluid seen. PELVIS: The bladder is unremarkable. No free fluid seen no evidence of hernia. The right hemipelvis is obscured by hip prosthesis. OSSEOUS STRUCTURES: There is L4-L5 and L5-S1 disc prosthesis for disc fusion. There are posterior hardware at the L3-L4 and L4-L5 disc level for posterior stability. Vacuum degeneration L2-L2 disc level is noted. Mild deformity L1 vertebral height likely chronic. Mild ventral spondylosis upper lumbar spine. Hypertrophic bony changes are seen along the right iliac crest likely from old healed fracture. 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 CT/CT abdomen pelvis w IV con IMPRESSION: 2.6 cm lesion left lower lobe lateral basal segment. Question nodule versus focal consolidation. Small to moderate-sized hiatal hernia with mild mural thickening mid to distal esophagus. Recommend barium swallow or endoscopy. Multiple right healed rib fracture stabilized with lateral metallic plate from 432 ribs. No acute process seen in the abdomen. Simple left renal cysts. No further workup is needed. L4-L5, L5-S1 disc prosthesis and posterior hardware at L3 and L4 vertebra for fusion. Right hip prosthesis stable
--- NOTE | ~2023-03-31 | CT_ITS ---
EXAMINATION: CT brain and CT cervical spine without IV contrast. CLINICAL HISTORY: Fall. COMPARISON: CT brain 08/05/2021. TECHNIQUE: 5 mm thin axial and reformatted 2 mm thin sagittal and coronal images of brain were obtained without contrast. Subsequently 3 mm thin axial and reformatted 2 mm thin sagittal and coronal images of cervical spine were obtained without contrast. DLP 656 mGy/cm This CT examination was performed using dose optimization technique as appropriate, variously including the following: Automated exposure control Adjustment of MA and/or KV according to patient size(this includes techniques or standardized protocols for targeted exams where dose is matched to indication/reason for exam; extremities or head. Use of iterative reconstruction techniques. FINDINGS: Brain: There is no acute intra-axial, extra-axial bleed, masses or midline shift. There is no acute infarction in evolution. There is a small lacunar infarction in right basal ganglia and right centrum semiovale of indeterminate age. There is no edema. The lateral ventricles are symmetrical in size and configuration without enlargement. Bone windows reveal no calvarial abnormality. There is no scalp soft tissue abnormality. Bilateral paranasal sinuses and mastoid air cells are well-aerated. Visualized bilateral optic globes, optic nerves and bony orbits are symmetrical and normal. Cervical spine: There is mild straightening of cervical lordosis. The vertebral heights and alignment is normal. There is loss of C3-C4, C4-C5, C5-C6 disc heights with moderate ventral and posterior spondylosis. The craniovertebral junction and C1-C2 alignment is normal. There is no acute fracture, dislocation or subluxation seen. There is mild left C2-C3, C3-C4, C4-C5 facet joint arthropathy. No aggressive lytic or sclerotic process seen. CT/CT cervical spine wo IV con IMPRESSION: 1. No acute intracranial process seen. 2. There is a small lacunar infarction right basal ganglia and right centrum semiovale of indeterminate age. 3. There is no acute fracture, dislocation or subluxation seen in cervical spine. There are degenerative disc changes with spondylosis C3-C4, C4-C5 and C5-C6 disc levels.
--- NOTE | ~2023-03-31 | XR_ITS ---
EXAMINATION: XR CHEST CLINICAL INFORMATION: Fall, trauma COMPARISON: 12/28/2022 TECHNIQUE: Frontal view of the chest was obtained. FINDINGS: There is no evidence for pneumothorax. No significant effusion though the right lung is clipped laterally Hardware associated with the right side of the chest is seen. The mediastinal and cardiac contour are felt to be within normal limits. Calcification within the aortic arch likely aneurysmal. Minimal lateral basilar opacities may represent small areas of atelectasis XR/XR chest 1V IMPRESSION: Mild basilar atelectasis. Otherwise no acute finding.
[2023-03-31 12:39] VITALS: BP 130/62; BP 133/79; PULSE 105; PULSE 76; RESP 18; TEMP 36.2; O2SAT 96; BMI 18.8
--- NOTE | 2023-03-31 13:14 | ECG_ITS ---
Test Reason : od Blood Pressure : / mmHG Vent. Rate : 071 BPM Atrial Rate : 071 BPM P-R Int : 136 ms QRS Dur : 094 ms QT Int : 436 ms P-R-T Axes : 070 037 045 degrees QTc Int : 473 ms Normal sinus rhythm Normal ECG When compared with ECG of 14-NOV-2022 15:48, No significant change was found Referred By: Cas Iglesias Electronically Signed By:LANETTE RAMIREZ
--- NOTE | 2023-03-31 13:47 | ED.OVERDOSE ---
HPI - Overdose General Chief Complaint: Overdose Stated Complaint: NARC OD,IV NARCAN GIVEN, NONVERBAL PER EMS Source: patient and EMS Mode of arrival: EMS Limitations: no limitations History of Present Illness HPI Narrative: 57-year-old male presents to the emergency department via ambulance status post suspected overdose, patient reports he used a bag of what he thought was dope , he got from his friend, he thinks he fell however unsure. He was collared by EMS however patient reports collar was uncomfortable and he took the collar off. Patient states he is fine he just wants to make sure the inside of his head is okay. Patient takes Eliquis. Patient denies chest pain, shortness of breath, nausea, vomiting, abdominal pain, headache, vision changes, dizziness, weakness, dizziness. Patient denies any medical complaints and states he is okay he just wants to rest Related Data Home Medications Medication Instructions Recorded Confirmed apixaban 5 mg (74 tabs) tablets in 5 mg PO BID 11/04/22 11/15/22 a dose pack (Eliquis DVT-PE Treat 30D Start) folic acid 1 mg tablet 1 mg PO DAILY 11/04/22 11/15/22 gabapentin 300 mg capsule 300 mg PO BID 11/04/22 11/15/22 lisinopril 10 mg tablet 10 mg PO DAILY 11/04/22 12/28/22 melatonin 5 mg tablet 5 mg BEDTIME 11/04/22 12/28/22 multivitamin with folic acid 400 1 tab PO DAILY 11/04/22 12/28/22 mcg tablet (Tab-A-Harper) pantoprazole 40 mg tablet,delayed 40 mg PO BID 11/04/22 12/28/22 release thiamine HCl (vitamin B1) 100 mg 100 mg PO DAILY 11/04/22 11/15/22 tablet aspirin 81 mg tablet,delayed 81 mg PO DAILY 11/15/22 11/15/22 release nicotine (polacrilex) 4 mg gum 4 mg PO Q1-2H PRN Nicotine Cravings 11/15/22 11/15/22 ferrous sulfate 325 mg (65 mg 325 mg PO TID 12/28/22 12/28/22 iron) tablet,delayed release nicotine (polacrilex) 4 mg gum 4 mg PO Q4H 12/28/22 12/28/22 Previous Rx's Medication Instructions Recorded apixaban 5 mg tablet (Eliquis) 5 mg PO BID #60 tabs 12/28/22 Allergies Allergy/AdvReac Type Severity Reaction Status Date / Time bee pollen [BEE STINGS] Allergy Severe SWELLING Verified 11/04/22 14:19 Review of Systems Review of Systems: Constitutional : No Weight loss, No Fever, No Chills, No Fatigue, No Malaise ENT/Mouth : No sore throat, No Rhinorrhea Eyes: No Eye Pain, No Swelling, No Redness Cardiovascular : No Chest Pain, No SOB, No Dyspnea on Exertion, No Orthopnea, No Edema, No Palpitations Respiratory : No Cough, No Sputum, No Wheezing Gastrointestinal : No Nausea, No Vomiting, No Diarrhea, No Constipation, No abdominal Pain, No Hematochezia, No Melena Genitourinary : No Dysuria, No Urinary Frequency, No Hematuria, Musculoskeletal : No joint pain, No Myalgias, No Joint Swelling Skin : No Skin Lesions, No rash Neuro : No Weakness, No Numbness, No Dizziness, No Headache Psych : No Anxiety/Panic, No Depression All other systems reviewed and are negative Yes all other systems are reviewed and are negative [facility] Past Medical History Attestation statement: The following information was validated with the patient. Source: old records reviewed and nursing notes reviewed Medical History Substance abuse EtOH dependence Hypertension Surgical History History of total right hip replacement Social History Social History Alcohol intake: current Alcohol intake frequency: 0-2 drinks per day Patient Tobacco Use Status: Former Tobacco user Substance Use Type: Heroin Advance Directives: No service: No Current occupational status: unemployed Physical Exam Vital Signs: Vital Signs: Last Vital Signs Temp 97.2 F 03/31/23 12:39 Pulse 76 03/31/23 12:39 Resp 18 03/31/23 12:39 BP 133/79 03/31/23 12:39 Pulse Ox 96 03/31/23 12:39 O2 Del Method Room Air 03/31/23 12:39 BMI result Body Mass Index 18.8 vss Appearance: Alert.? Oriented X3.? No acute distress.? Head: Normocephalic, atraumatic, no step-offs or deformities Eyes: Pupils equal, round and reactive to light.? ENT: Pharynx normal.? Neck: Normal inspection.? Neck supple.? CVS: Normal heart rate and rhythm.? Pulses normal.? Respiratory: No respiratory distress.? Breath sounds normal.? Abdomen: Soft and nontender.? Skin: Skin warm and dry.? Normal skin color.? Normal skin turgor.? Extremities: No lower extremity edema.? No calf ttp. 5/5 strength to bilateral upper and lower extremities Neuro: Oriented X 3.? No motor deficit.? No sensory deficit. CN 2-12 intact Course Reevaluation(s) Reevaluation #1: Patient's CBC appears to be around his baseline however slightly more anemic than usual. Denies upper lower GI bleed. Chemistry pending. UA without infection. Urine toxicology positive for opiates, fentanyl, marijuana. Ethanol and chemistry pending. CT scans also pending Time: 15:54 Medical Decision Making Medical Decision Making [facility] Narrative: 1300 57 yo male presents s/p fall and OD on thinners. No si or hi PE benign Likely fall secondary to overdose. Unlikely secondary to ACS, PE, no preceding symptoms to fall also patient anticoagulated. Will rule out traumatic injuries to head, neck, chest, abdomen and pelvis. He reports he didnt drink today however will obtain an ethanol level Plan- labs, urine, ct head and neck as well as chest, abd, pelvis due to patient being poor historian and on thinners. Differential Diagnosis Differential Diagnoses: The differential diagnosis associated with the presentation includes Likely fall secondary to overdose. Unlikely secondary to ACS, PE, no preceding symptoms to fall also patient anticoagulated. Will rule out traumatic injuries to head, neck, chest, abdomen and pelvis. He reports he didnt drink today however will obtain an ethanol level Admission/Observation Consideration of admission/observation: Escalation of care including admission/observation considered unlikely Lab Data [facility] Lab Attestation statement: I reviewed the patient's lab results. Labs: Lab Results 03/31/23 Range/Units 15:14 Urine Color Yellow Urine Appearance Clear Urine pH 5.5 (5.0-9.0) Ur Specific [place] 1.015 (1.005-1.025) Urine Protein 100 (2+) H (Neg-Trace) mg/dL Urine Glucose (UA) Negative (Negative) mg/dL Urine Ketones Negative (Negative) mg/dL Urine Blood Negative (Negative) Urine Nitrite Negative (Negative) Ur Leukocyte Esterase Negative (Negative) Urine RBC 0-2 (0-2) /HPF Urine WBC 0-5 (0-5) /HPF Ur Squamous Epith Cells 0-2 (0-2) /HPF Urine Bacteria None Seen (None Seen) Hyaline Casts 0-2 (0-2) /LPF Urine Opiates Screen POSITIVE H (Not Detect) Urine Fentanyl Screen POSITIVE H (Not Detect) Ur Barbiturates Screen Not Detected (Not Detect) Ur Phencyclidine Scrn Not Detected (Not Detect) Ur Amphetamines Screen Not Detected (Not Detect) U Benzodiazepines Scrn Not Detected (Not Detect) Urine Cocaine Screen Not Detected (Not Detect) U Marijuana (THC) Screen POSITIVE H (Not Detect) COVID-19 (CRUZ) Negative (Negative) COVID-19 Clin Com See Note Independent Interpretation I performed an independent interpretation of an: EKG and CT Scan Radiology Impression Discussion of test interpretation with radiology: I have reviewed the radiologist's reading. Social Determinants Patient?s care significantly limited by Social Determinants of Health including: Inadequate housing, Low income, Alcoholism and drug addiction in family, Problems related to primary support group, Problems related to employment and Other Social Determinant of Health Critical Care Time Critical Care Time Critical Care Time: No Discharge Plan Discharge Clinical Impression: Drug overdose Patient Disposition: Still a Patient Prescriptions: No Action lisinopril 10 mg tablet 10 mg PO DAILY gabapentin 300 mg capsule 300 mg PO BID melatonin 5 mg tablet 5 mg BEDTIME thiamine HCl (vitamin B1) 100 mg tablet 100 mg PO DAILY pantoprazole 40 mg tablet,delayed release (DR/EC) 40 mg PO BID folic acid 1 mg tablet 1 mg PO DAILY multivitamin with folic acid [Tab-A-Harper] 400 mcg tablet 1 tab PO DAILY Eliquis DVT-PE Treat 30D Start 5 mg (74 tabs) tablets,dose pack 5 mg PO BID nicotine (polacrilex) 4 mg gum 4 mg PO Q4H ferrous sulfate 325 mg (65 mg iron) tablet,delayed release (DR/EC) 325 mg PO TID Eliquis 5 mg tablet 5 mg PO BID Qty: 60 0RF nicotine (polacrilex) 4 mg gum 4 mg PO Q1-2H PRN (Reason: Nicotine Cravings) aspirin 81 mg Tablet,Delayed Release (Dr/Ec) 81 mg PO DAILY
[2023-03-31 15:27] LABS: Appearance Urine Clear; Color Urine Yellow; Glucose Urine UA Negative (Negative); Leukocyte Esterase Urine Negative (Negative); Nitrite Urine Negative (Negative); PH 5.5 (5.0-9.0); Specific Gravity - Urine 1.015 (1.005-1.025); UMIC TRIGGER UACC YES; Urine Blood Negative (Negative); Urine Ketones Negative (Negative); Urine Protein 100 (2+) mg/dL (Neg-Trace)
[2023-03-31 15:30] LABS: Bacteria Urine None Seen (None Seen); Hyaline Casts Urine 0-2 /LPF (0-2); RBC Urine 0-2 /HPF (0-2); Squamous Epithelial Cell Urine 0-2 /HPF (0-2); WBC Urine 0-5 /HPF (0-5)
[2023-03-31 15:40] LABS: Amphetamine Screen Urine Not Detected (Not Detect); Barbiturates, Urine Not Detected (Not Detect); Benzodiazepines Screen Urine Not Detected (Not Detect); Cannabinoid Screen Urine POSITIVE (Not Detect); Cocaine Screen Urine Not Detected (Not Detect); Fentanyl, urine POSITIVE (Not Detect); Opiate Screen Urine POSITIVE (Not Detect); Phencyclidine Screen Urine Not Detected (Not Detect)
[2023-03-31 15:41] LABS: COVID-19 Test Negative (Negative); IDNOW Serial# BCCEAD1C
[2023-03-31] MEDS: iohexoL 350 MG/ML 100 ML INFUS..BTL 85 ML IV (17:01)
--- NOTE | 2023-03-31 17:19 | MHC.EDTECH ---
late entry 1600 attempted to draw pt 2x unssuccessful. pt in ct scan. additional pct called to obtain bloodwork after pt returns from ct
--- NOTE | 2023-03-31 17:32 | MHC.EDTECH ---
second pct unsuccessful draw. phlebotomy called to perform blood draw
[2023-03-31 17:48] LABS: Basophils Absolute Auto 0.1 X10*3/uL (0.0-0.2); Basophils Percent Auto 0.7 % (0-2); Eosinophils Percent Auto 0.4 % (0-4); Hematocrit 32.8 % (42.0-52.0); Hemoglobin 10.1 g/dl (14.0-18.0); Imm Gran Abs Auto 0.11 X10*3/uL (0.00-0.03); Imm Gran Pct Auto 1.3 % (0.0-0.4); Lymphocytes Absolute Auto 2.3 X10*3/uL (1.2-4.9); Lymphocytes Percent Auto 27.3 % (20-40); MANUAL DIFF FLAG SCAN; Mean Corpuscular HGB Conc 30.8 g/dl (31.0-36.0); Mean Corpuscular Hemoglobin 22.5 pg (27.0-33.0); Mean Corpuscular Volume 73.1 fL (80.0-98.0); Monocytes Absolute Auto 0.5 X10*3/uL (0.1-1.2); Monocytes Percent Auto 5.5 % (2-11); Neutrophils Absolute Auto 5.4 x10*3/uL (2.0-8.3); Neutrophils Percent Auto 64.8 % (45-73); PLT CLUMP 1; Red Blood Count 4.49 X10*6/uL (4.60-5.80); Red Cell Distribution Width 18.6 % (11.0-16.0); SCAN SMEAR FLAG 1
[2023-03-31 18:11] LABS: Alanine Aminotransferase 6 U/L (0-40); Albumin Level 3.8 g/dL (3.5-5.0); Alkaline Phosphatase 91 U/L (39-117); Anion Gap 20 (12-20); Aspartate Amino Transferase 17 U/L (5-37); Bilirubin Total 0.3 mg/dL (0.0-1.0); Blood Urea Nitrogen 12 mg/dL (9-16); Calcium 8.7 mg/dL (8.4-10.2); Carbon Dioxide 25 mmol/L (22-29); Chloride 94 mmol/L (96-108); Estimated Glomerular Filt Rate > 60; Glucose Random 77 mg/dL (60-115); Lipase 25 U/L (8-78); Magnesium 1.6 mg/dL (1.6-2.6); Potassium 3.5 mmol/L (3.3-5.1); Sodium 135 mmol/L (135-145); Total Protein 7.2 g/dL (6.5-8.0)
[2023-03-31 18:14] LABS: White Blood Count 8.3 X10*3/uL (4.8-10.8)
[2023-03-31 18:15] LABS: SLIDE REVIEW VERIFIED
[2023-03-31] MEDS: Naloxone HCl Nasal TAKE HOME 4 MG SPRAY 8 MG NOSTRILALT (18:52)
--- NOTE | 2023-03-31 18:52 | PC.NURSE ---
pt leaving AMA stating that he has to go to work tonight. alert and oriented, ambulated with steady gait. signed AMA paperwork, understanding of when to return to emergency department
[2023-03-31 19:11] LABS: Ethanol 135 mg/dL; Troponin-I High Sensitivity 6.3 ng/L (<3.5-35.0)
== END 2023-03-31 18:54 | disposition left against medical advice (07) ==
PROVIDERS: Physician Assistant; Emergency Provider Emergency Medicine
DX: T40.1X1A Poisoning by heroin, accidental (unintentional), initial encounter (principal); Y92.9 Unspecified place or not applicable; R79.89 Other specified abnormal findings of blood chemistry; R51.9 Headache, unspecified; M54.2 Cervicalgia; M54.6 Pain in thoracic spine; R10.2 Pelvic and perineal pain; Z20.822 Contact with and (suspected) exposure to COVID-19; Z20.828 Contact with and (suspected) exposure to other viral communicable diseases; Z79.899 Other long term (current) drug therapy
CPT/HCPCS: 36415; 70450; 71045; 71260; 72125; 74177; 80053; 80307; 81001; 82550; 83690; 83735; 84484; 85025; 87635; 93005; 99283; 99284; Q9967

== ENCOUNTER 2023-05-03 14:56 | Emergency (ER) | payer MEDICAID, SELFPAY ==
[2023-05-03 15:16] VITALS: BP 117/74; PULSE 79; RESP 20; TEMP 36.4; O2SAT 97; BMI 19.5
--- NOTE | 2023-05-03 15:17 | ED_ITS ---
HPI - General Adult General Chief complaint: Nausea/Vomiting/Diarrhea Stated complaint: vomiting Time Seen by Provider: 05/04/23 05:19 Source: patient Mode of arrival: ambulatory Limitations: no limitations History of Present Illness HPI narrative: Patient's history of esophagitis with difficulty in swallowing for years getting worse lately had endoscopy in the past not taking any PPI noticed more discomfort while eating food for last 1 week whenever he eats food he vomits within few minutes but able to hold down his secretions complaining of mild epigastric pain no history of melena no diarrhea patient recently stopped drinking alcohol no history of pancreatitis Related Data Home Medications Medication Instructions Recorded Confirmed apixaban 5 mg (74 tabs) tablets in 5 mg PO BID 11/04/22 11/15/22 a dose pack (Eliquis DVT-PE Treat 30D Start) folic acid 1 mg tablet 1 mg PO DAILY 11/04/22 11/15/22 gabapentin 300 mg capsule 300 mg PO BID 11/04/22 11/15/22 lisinopril 10 mg tablet 10 mg PO DAILY 11/04/22 12/28/22 melatonin 5 mg tablet 5 mg BEDTIME 11/04/22 12/28/22 multivitamin with folic acid 400 1 tab PO DAILY 11/04/22 12/28/22 mcg tablet (Tab-A-Harper) pantoprazole 40 mg tablet,delayed 40 mg PO BID 11/04/22 12/28/22 release thiamine HCl (vitamin B1) 100 mg 100 mg PO DAILY 11/04/22 11/15/22 tablet aspirin 81 mg tablet,delayed 81 mg PO DAILY 11/15/22 11/15/22 release nicotine (polacrilex) 4 mg gum 4 mg PO Q1-2H PRN Nicotine Cravings 11/15/22 11/15/22 ferrous sulfate 325 mg (65 mg 325 mg PO TID 12/28/22 12/28/22 iron) tablet,delayed release nicotine (polacrilex) 4 mg gum 4 mg PO Q4H 12/28/22 12/28/22 Previous Rx's Medication Instructions Recorded apixaban 5 mg tablet (Eliquis) 5 mg PO BID #60 tabs 12/28/22 metoclopramide HCl 10 mg tablet 10 mg PO Q6H PRN nausea and 05/04/23 (Reglan) vomiting #90 tabs pantoprazole 40 mg tablet,delayed 40 mg PO DAILY #90 tabs 05/04/23 release (Protonix) sucralfate 1 gram tablet 1 g PO BID #60 tabs 05/04/23 Allergies Allergy/AdvReac Type Severity Reaction Status Date / Time bee pollen [BEE STINGS] Allergy Severe SWELLING Verified 11/04/22 14:19 Review of Systems 2 Review of Systems: Yes all other systems are reviewed and are negative [facility] Past Medical History Medical History Substance abuse EtOH dependence Hypertension Surgical History History of total right hip replacement Social History Social History Alcohol intake: former Patient Tobacco Use Status: Former Tobacco user Smoked in Last 30 Days: No Use of substances other than those prescribed or required for medical reasons: No Substance Use Type: Heroin Advance Directives: No Advance Directives Information Provided: No service: No Current occupational status: unemployed Physical Exam ED Vital Signs: Vital Signs - 24 hr 05/04/23 04:00 Temperature 97.9 F Pulse Rate 92 Respiratory Rate 18 Blood Pressure 136/94 H Pulse Oximetry 99 Oxygen Delivery Method Room Air BMI result Body Mass Index 19.5 Appearance: Alert. Oriented X3. No acute distress. Eyes: PERRLA, no icterus or pallor ENT: Pharynx normal. Oral Mucosa moist patient able to hold on his secretions speaking full sentences Neck: Normal inspection. Neck supple. CVS: Normal heart rate and rhythm. Pulses normal. Respiratory: No respiratory distress. Equal air entry bilateral, no wheezing/rales/rhonchi Abdomen: Soft , tender in epigastric area Bowel sounds are present, no mass palpable, no CVA tenderness Skin: Skin warm and dry. Normal skin color. Normal skin turgor. Extremities: No lower extremity edema. No calf tenderness Neuro: Oriented X 3. Course Course Course Narrative: RME performed by Dior Delgadillo PA-C. Patient is a 57 year old assigned male at presenting to the emergency department with nausea and vomiting. Labs and swabs ordered. Patient placed back in the waiting room pending room availability and results. Medications Administered Discontinued Medications Generic Name Dose Route Start Last Admin Trade Name Freq PRN Reason Stop Dose Admin Al Hydroxide/Mg Hydroxide 30 ml 05/04/23 05:25 05/04/23 05:33 Magnesium Hydrox/Alum Hydrox 30 Ml Oral.Susp PO 05/04/23 05:26 30 ml ONCE ONE Administration Lidocaine HCl 15 ml 05/04/23 05:25 05/04/23 05:33 Lidocaine Hcl Viscous 2 % 15 Ml Solution MUCOUS MEM 05/04/23 05:26 15 ml ONCE ONE Administration Omeprazole 40 mg 05/04/23 05:25 05/04/23 05:34 Omeprazole 40 Mg Capsule.Dr PO 05/04/23 05:26 40 mg ONCE ONE Administration Medical Decision Making Medical Decision Making [facility] Narrative: Patient with history of esophagitis likely the cause for vomiting and likely has achalasia patient able to hold on liquids and food in the ER and p.o. fluids in the ER advised to follow with index clerk take PPI Differential Diagnosis Differential Diagnoses: The differential diagnosis associated with the presentation includes Esophagitis/achalasia/peptic ulcer disease Lab Data [facility] Lab Attestation statement: I reviewed the patient's lab results. 05/03/23 23:59 05/03/23 23:59 Labs: Lab Results 05/03/23 05/03/23 Range/Units 16:42 23:59 WBC 8.8 (4.8-10.8) X10*3/uL RBC 4.31 L (4.60-5.80) X10*6/uL Hgb 9.8 L (14.0-18.0) g/dl Hct 32.5 L (42.0-52.0) % MCV 75.4 L (80.0-98.0) fL MCH 22.7 L (27.0-33.0) pg MCHC 30.2 L (31.0-36.0) g/dl RDW 18.8 H (11.0-16.0) % Plt Count 337 D (160-400) X10*3/uL MPV 9.5 (9.4-12.4) fL Immature Gran % (Auto) 0.2 (0.0-0.4) % Neut % (Auto) 54.2 (45-73) % Lymph % (Auto) 34.2 (20-40) % [place] % (Auto) 8.7 (2-11) % Eos % (Auto) 1.8 (0-4) % Baso % (Auto) 0.9 (0-2) % Lymph # (Auto) 3.0 (1.2-4.9) X10*3/uL [place] # (Auto) 0.8 (0.1-1.2) X10*3/uL Eos # (Auto) 0.2 (0.0-0.4) X10*3/uL Baso # (Auto) 0.1 (0.0-0.2) X10*3/uL Abs Immat Gran (auto) 0.02 (0.00-0.03) X10*3/uL Absolute Neuts (auto) 4.8 (2.0-8.3) x10*3/uL Absolute Nucleated RBC 0.000 (0.0-0.012) X10*3/uL Nucleated RBC % (auto) 0.0 (0.0-0.2) /100WBC Sodium 138 (135-145) mmol/L Potassium 4.0 (3.3-5.1) mmol/L Chloride 100 (96-108) mmol/L Carbon Dioxide 27 (22-29) mmol/L Anion Gap 15 (12-20) BUN 14 (9-16) mg/dL Creatinine 0.90 (0.5-1.4) mg/dL Estim Creat Clear Calc 80.3 Estimated GFR > 60 Random Glucose 95 (60-115) mg/dL Calcium 9.9 D (8.4-10.2) mg/dL Magnesium 2.1 (1.6-2.6) mg/dL Total Bilirubin 0.3 (0.0-1.0) mg/dL AST 14 (5-37) U/L ALT 10 (0-40) U/L Alkaline Phosphatase 81 (39-117) U/L Troponin I High Sens < 2.7 D (<3.5-35.0) ng/L Total Protein 7.8 (6.5-8.0) g/dL Albumin 4.3 (3.5-5.0) g/dL Lipase 12 (8-78) U/L Influenza Type A (PCR) NEGATIVE (Negative) Influenza Type B (PCR) NEGATIVE (Negative) RSV RNA Qual (PCR) NEGATIVE (Negative) SARS-CoV-2 RNA (RT-PCR) NEGATIVE (Negative) Discharge Plan Discharge Clinical Impression: Chronic reflux esophagitis, Achalasia of esophagus Patient Disposition: Home, Self-Care Instructions: Chronic Dysphagia (DC), Esophagitis (ED) Additional Instructions: Take medication daily as prescribed Avoid fried and spicy food Have small bites of food with lot of liquids Follow-up with index clerk for further evaluation Prescriptions: New pantoprazole [Protonix] 40 mg tablet,delayed release (DR/EC) 40 mg PO DAILY Qty: 90 0RF metoclopramide HCl [Reglan] 10 mg tablet 10 mg PO Q6H PRN (Reason: nausea and vomiting) Qty: 90 0RF sucralfate 1 gram tablet 1 g PO BID Qty: 60 0RF No Action lisinopril 10 mg tablet 10 mg PO DAILY gabapentin 300 mg capsule 300 mg PO BID melatonin 5 mg tablet 5 mg BEDTIME thiamine HCl (vitamin B1) 100 mg tablet 100 mg PO DAILY pantoprazole 40 mg tablet,delayed release (DR/EC) 40 mg PO BID folic acid 1 mg tablet 1 mg PO DAILY multivitamin with folic acid [Tab-A-Harper] 400 mcg tablet 1 tab PO DAILY Eliquis DVT-PE Treat 30D Start 5 mg (74 tabs) tablets,dose pack 5 mg PO BID nicotine (polacrilex) 4 mg gum 4 mg PO Q4H ferrous sulfate 325 mg (65 mg iron) tablet,delayed release (DR/EC) 325 mg PO TID Eliquis 5 mg tablet 5 mg PO BID Qty: 60 0RF nicotine (polacrilex) 4 mg gum 4 mg PO Q1-2H PRN (Reason: Nicotine Cravings) aspirin 81 mg Tablet,Delayed Release (Dr/Ec) 81 mg PO DAILY Referrals: Christian Duval MD [Physician] - 1 week Interventions: ED Discharge Assessment Last Done: 05/04/23 07:02 Discharge Date/Time: 05/04/23 07:03
--- NOTE | 2023-05-03 16:53 | MHC.EDTECH ---
blood work attempted in triage x2 unsuccessfully. pcr swab obtained and sent to lab
[2023-05-03 17:25] LABS: Influenza A PCR NEGATIVE (Negative); Influenza B PCR NEGATIVE (Negative); Resp Syncy Virus RNA Qual PCR NEGATIVE (Negative); SARS COV2 PCR INHOUSE NEGATIVE (Negative)
--- OUTSIDE RECORDS SUMMARY | 2023-05-03 21:44 | XMS_ITS | Continuity of Care Document ---
Author Name Unknown Organization [facility] ter Address [address] [place] [id number] Care Team Providers Care Shank Sander Name Role Phone Navjot BELTRÁN, Maximo Primary Care Physician [phone] Encounter [facility] Date(s): 12/30/22 - 01/05/[address] [id number] Encounter Diagnosis Syncope(Final) - 12/30/22 Withdrawal symptoms, alcohol(Final) - 12/30/22 Discharge Disposition: A-Transfer VNA/Home Health Attending Physician: Lindsey Bonilla DO Admitting Physician: Jerry Hinojosa DO Referring Physician: Not on Staff, Referring MD Allergies, Adverse Reactions, Alerts Substance Reaction Severity Status Bee Stings Active Immunizations Given and Recorded Vaccine Date Status Refusal Reason influenza virus vaccine, inactivated 05/15/22 Marcos rded influenza virus vaccine, inactivated 04/15/22 Marcos rded influenza virus vaccine, inactivated 09/10/21 Marcos rded influenza virus vaccine, inactivated 05/10/17 Marcos rded influenza virus vaccine, inactivated 04/27/16 Marcos rded [id number] 12y+ bivalent booster vax 05/15/22 Recorded SARS-CoV-2 mRNA (bdcaigy-afdz-dgxad) vax 11/19/21 Recorded tetanus/diphtheria/pertussis, acel(Tdap) 08/05/21 Recorded tetanus/diphtheria/pertussis, acel(Tdap) 05/10/17 Recorded tetanus/diphtheria/pertussis, acel(Tdap) 09/30/13 Given SARS-CoV-2 (COVID-19) mRNA BNT-162b2 vac 06/19/21 Recorded zoster vaccine, inactivated 06/17/21 Recorded SARS-CoV-2 (COVID-19) Ad26 vaccine 10/22/20 Record ed pneumococcal 23-valent vaccine 04/17/15 Recorded pneumococcal 23-valent vaccine 02/26/11 Given tetanus-diphtheria toxoids (Td) 02/15/09 Recorded Diphth-Tetanus Toxoids Adsorbed(oldterm) 05/17/06 Given Medications acamprosate 333 mg oral delayed release tablet 2 tablet = 666 mg, By Mouth, 3 times a day, TAKE 2 TABLETS BY MOUTH THREE TIMES DAILY Start Date: 10/30/22 Status: Ordered acetaminophen 325 mg oral tablet 650 mg, By Mouth, Every 4 hours, PRN, Temperature Greater than 100.5, # 50 tablet, Refills 0, Tot. Refills 0, Acute 02/04/23 10:00:00 EDT, Pain , Mild, 12/27/22 10:16:00 EDT, Route to Pharmacy Electronically, [facility], Partial fill upo... Start Date: 12/27/22 Stop Date: 02/04/23 Status: Ordered Acetaminophen Tablet 975 mg, Tablet, By Mouth, 01/05/23 9:00:00 EDT Start Date: 01/05/23 Stop Date: 01/05/23 Status: Completed apixaban Starter Pack 5 mg oral tablet 2 tablet = 10 mg, By Mouth, 2 times a day, followed by 1 tablet by mouth twice daily for 23 days, #74 tablet, 0 Refills, Maintenance, 11/03/22 9:55:00 EDT, [facility], Partial fill upon patient request if the prescription is for a sched... Start Date: 11/03/22 Stop Date: 11/10/22 Status: Ordered duloxetine 30 mg oral enteric coated capsule 1 capsule = 30 mg, By Mouth, 2 times a day, # 60 capsule, 0 Refills, Maintenance, 08/08/22 3:48:00 EST, EC Capsule, Partial fill upon patient request if the prescription is for a schedule II opioid drug. Start Date: 08/08/22 Status: Ordered ferrous sulfate 325 mg oral enteric coated tablet 325 mg, By Mouth, 3 times a day, # 90 capsule, Refills 0, Tot. Refills 0, Maintenance, 12/21/22 14:06:00 EDT, Route to Pharmacy Electronically, [facility], Partial fill upon patient request if the prescription is for a schedule II opioid... Start Date: 12/21/22 Stop Date: 01/20/23 Status: Ordered folic acid 1 mg oral tablet 1 mg, 1, tablet, By Mouth, Daily, # 90 tablet, Refills 0, Maintenance, 10/30/22 5:29:00 EDT, Partial fill upon patient request if the prescription is for a schedule II opioid drug. Start Date: 10/30/22 Status: Ordered gabapentin 300 mg oral capsule 600 mg, Capsule, By Mouth, 01/05/23 9:00:00 EDT Start Date: 01/05/23 Stop Date: 01/05/23 Status: Completed gabapentin 600 mg oral tablet 1 tablet = 600 mg, By Mouth, 3 times a day, # 90 tablet, 0 Refills, Maintenance, 01/05/23 9:31:00 EDT, Tablet, [facility], Partial fill upon patient request if the prescription is for aschedule II opioid drug., 180, cm, 01/05/23 6:33:00... Start Date: 01/05/23 Status: Ordered Lidoderm 5% film 1 patch, Topically, Daily, for 14 days, apply 1 patch to right ribcage remove patches after 12 hours, # 14 patch, 0 Refills, Acute 01/10/23 10:18:00 EDT, 12/27/22 10:18:00 EDT, [facility], Partial fill upon patient request if the prescr... Start Date: 12/27/22 Stop Date: 01/10/23 Status: Ordered lisinopril 10 mg oral tablet 10 mg, 1, tablet, By Mouth, Daily, # 30 tablet, Refills 0, Maintenance, 10/30/22 5:29:00 EDT, Partial fill upon patient request if the prescription is for a schedule II opioid drug. Start Date: 10/30/22 Status: Ordered Melatonin 5 mg oral tablet 1 tablet = 5 mg, By Mouth, Daily at bedtime, PRN for insomnia, # 60 tablet, 0 Refills, Maintenance,10/30/22 5:29:00 EDT, Tablet, Partial fill upon patient request if the prescription is for a schedule II opioid drug. Start Date: 10/30/22 Status: Ordered multivitamin Multiple Vitamins oral tablet 1 tablet, By Mouth, Daily, # 30 tablet, 0 Refills, Maintenance, 10/15/20 10:30:00 EDT, Tablet, [facility], Partial fill upon patient request if the prescription is for a schedule II opioid drug., 1 tablet By Mouth Daily, 180, cm, 2... Start Date: 10/15/20 Status: Ordered oxyCODONE 5 mg oral tablet 2.5 mg, By Mouth, Every 6 hours, PRN, # 10 tablet, Refills 0, Tot. Refills 0, Acute 01/08/23 8:59:00 EDT, Pain , Severe, 01/05/23 8:59:00 EDT, Route to Pharmacy Electronically, [facility], Partial fill upon patient request if the prescri... Start Date: 01/05/23 Stop Date: 01/08/23 Status: Ordered oxyCODONE 5 mg oral tablet 2.5 mg, Tablet, By Mouth, Every 6 hours, PRN for Pain , Moderate, Routine, 12/31/22 10:16:00 EDT Start Date: 12/31/22 Stop Date: 01/05/23 Status: Discontinued pantoprazole 40 mg oral delayed release tablet 1 tablet = 40 mg, By Mouth, 2 times a day, # 60 tablet, 2 Refills, Maintenance, 11/08/22 8:23:00 EDT, EC Tablet, 180, cm, 11/08/22 7:43:00 EDT, Height, 74.6, kg, 11/05/22 16:16:00 EDT, Dry Weight Start Date: 11/08/22 Status: Ordered pyridoxine 50 mg oral tablet 50 mg, By Mouth, Daily, # 30 tablet, Refills 0, Tot. Refills 0, Maintenance, 01/05/23 9:00:00 EDT, Route to Pharmacy Electronically, [facility], Partial fill upon patient request if theprescription is for a schedule II opioid drug., 180... Start Date: 01/05/23 Status: Ordered Senna 8.6 mg oral tablet 8.6 mg, 1, tablet, By Mouth, Daily at bedtime, # 30 tablet, Refills 0, Tot. Refills 0, Maintenance,01/05/23 8:59:00 EDT, Route to Pharmacy Electronically, [facility], Partial fill uponpatient request if the prescription is for a schedu... Start Date: 01/05/23 Status: Ordered thiamine 100 mg oral tablet 100 mg, 1, tablet, By Mouth, Daily, Refills 0, Maintenance, 10/30/22 5:30:00 EDT, Partial fill uponpatient request if the prescription is for a schedule II opioid drug. Start Date: 10/30/22 Status: Ordered Problem List Condition Confirmation Course Effective Dates Status H ealth Status Informant Aortic aneurysm 1 Confirmed Active Cardiomyopathy - EF 40% on 01/19 Confirmed 02/03/11 Active Cellulitis Confirmed 09/04/08 Active Closed Fracture of Lumbar Vertebra without Mention of Spinal Cord Injury Confirmed 05/26/12 Active Esophageal reflux (GERD) Confirmed 02/03/11 Active Fracture of ribs, multiple Confirmed Active GERD - Gastro-esophageal reflux disease Confirmed Active Right hip pain Confirmed Active Hypertension Confirmed Active Right knee pain Confirmed Active Low back pain - failed back syndrome Confirmed Active Pulmonary embolism 2 Confirmed Active 1aortic arc aneurysm Results Radiology Reports * Exam Date Time Procedure Performing Provider Status 12/30/22 6:[address] Cervical Spine W/O Contrast Colon , Starr; Auth (Verified) Notes: (CT Cervical Spine W/O Contrast) Reason For Exam: Neck trauma, dangerous injury mechanism;Other: RESULT: CT Cervical Spine W/O Contrast CT Head/Brain W/O Contrast, CT Cervical Spine W/O Contrast INDICATION: Hx of Present Illness: etoh fall; Reason: Headache(s); Clinical Question(s): Hematoma; Order Comment: TECHNIQUE: Noncontrast head CT using axial technique was reconstructed in axial and coronal planes.Noncontrast spiral CT through the cervical spine was formatted in 3 planes. Automatic tube modulation was used for the cervical spine and iterative dose reconstruction was used for both the head and cervical spine to optimize scan parameters and image quality. CTDIvol Body: 11.87 mGy, DLP Body: 337 mGy*cm. CTDIvol Head: 47.41 mGy, DLP Head: 853 mGy*cm. COMPARISON: None. FINDINGS: Annealing Operator View Findings, Lines and Tubes: None. BRAIN AND EXTRA-AXIAL SPACES: No parenchymal hemorrhage, midline shift, or mass effect. Gaines-white matter differentiation is wellpreserved. No acute infarct. 1.6 cm partially calcified meningioma within the left frontal lobe region. Ventricles, sulci, and basilar cisterns are normal. Mild low-density white matter changes. No subarachnoid hemorrhage. No subdural or epidural collection. CALVARIUM, SKULL BASE, AND SOFT TISSUES: No fractures or suspicious bony lesions. The paranasal sinuses and mastoid air cells are clear. Visualized orbits and globes are intact. The extracranial soft tissues are unremarkable. CERVICAL SPINE: No fracture. No acute osseous abnormalities. Normal alignment. No locked or perched facet. Discogenic degenerative disease throughout the cervical spine, but most prominently at C3-C4, C4-C5 C5-C6 level. There is narrowing of the atlantodens interval with osteophyte formation. 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 OTHER BONES: No acute abnormality. CERVICAL SOFT TISSUES AND LUNG APICES: Normal soft tissues. Visualized lung apices are clear. IMPRESSION: No acute intracranial abnormality. Mild chronic small ischemic changes. Small meningioma within theleft frontal lobe region, not significantly changed. No cervical spine fracture or subluxation. Disc and facet degenerative disease throughout the cervical spine. WSN: [id number] Ordering Physician: Brianda Thakkar Dictated By: Yeyo Mccullough MD Dictated Date/Time: 12/30/22 6:59 pm Reviewed By: Yeyo Mccullough MD Signed By: Yeyo Mccullough MD Signed Date/Time: 12/30/22 6:59 pm Transcribed By: MARC Transcribed Date/Time: 12/30/22 6:53 pm * Exam Date Time Procedure Performing Provider Status 12/30/22 6:[address] Head/Brain W/O Contrast Colon , Tat mike; Auth (Verified) Notes: (CT Head/Brain W/O Contrast) Reason For Exam: Headache(s) RESULT: CT Head/Brain W/O Contrast CT Head/Brain W/O Contrast, CT Cervical Spine W/O Contrast INDICATION: Hx of Present Illness: etoh fall; Reason: Headache(s); Clinical Question(s): Hematoma; Order Comment: TECHNIQUE: Noncontrast head CT using axial technique was reconstructed in axial and coronal planes.Noncontrast spiral CT through the cervical spine was formatted in 3 planes. Automatic tube modulation was used for the cervical spine and iterative dose reconstruction was used for both the head and cervical spine to optimize scan parameters and image quality. CTDIvol Body: 11.87 mGy, DLP Body: 337 mGy*cm. CTDIvol Head: 47.41 mGy, DLP Head: 853 mGy*cm. COMPARISON: None. FINDINGS: Annealing Operator View Findings, Lines and Tubes: None. BRAIN AND EXTRA-AXIAL SPACES: No parenchymal hemorrhage, midline shift, or mass effect. Gaines-white matter differentiation is wellpreserved. No acute infarct. 1.6 cm partially calcified meningioma within the left frontal lobe region. Ventricles, sulci, and basilar cisterns are normal. Mild low-density white matter changes. No subarachnoid hemorrhage. No subdural or epidural collection. CALVARIUM, SKULL BASE, AND SOFT TISSUES: No fractures or suspicious bony lesions. The paranasal sinuses and mastoid air cells are clear. Visualized orbits and globes are intact. The extracranial soft tissues are unremarkable. CERVICAL SPINE: No fracture. No acute osseous abnormalities. Normal alignment. No locked or perched facet. Discogenic degenerative disease throughout the cervical spine, but most prominently at C3-C4, C4-C5 C5-C6 level. There is narrowing of the atlantodens interval with osteophyte formation. 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 OTHER BONES: No acute abnormality. CERVICAL SOFT TISSUES AND LUNG APICES: Normal soft tissues. Visualized lung apices are clear. IMPRESSION: No acute intracranial abnormality. Mild chronic small ischemic changes. Small meningioma within theleft frontal lobe region, not significantly changed. No cervical spine fracture or subluxation. Disc and facet degenerative disease throughout the cervical spine. WSN: [id number] Ordering Physician: Brianda Thakkar Dictated By: Yeyo Mccullough MD Dictated Date/Time: 12/30/22 6:59 pm Reviewed By: Yeyo Mccullough MD Signed By: Yeyo Mccullough MD Signed Date/Time: 12/30/22 6:59 pm Transcribed By: MARC Transcribed Date/Time: 12/30/22 6:53 pm * Exam Date Time Procedure Performing Provider Status 12/30/22 2:51 PM Shoulder Min 2 Views Right KeotaSancho M; Auth (Verified) Notes: (Shoulder Min 2 Views Right) Reason For Exam: with Pain;Trauma RESULT: Shoulder Min 2 Views Right Shoulder Min 2 Views Right, 4 views HX OF PRESENT ILLNESS: etoh fall; Reason: Trauma; with Pain; Clinical Question(s): Fracture COMPARISON: 08/22/2017 FINDINGS: No fracture or dislocation. No arthritic change of the glenohumeral joint. Mild degenerative changes of the AC joint. The portion of the clavicle included on the exam is normal. No calcification of the rotator cuff. Old right rib fractures, multiple of which are status post ORIF. IMPRESSION: No evidence of acute osseous abnormality. WSN: [id number] Ordering Physician: Brianda Thakkar Dictated By: David Lowry MD Dictated Date/Time: 12/30/22 2:56 pm Reviewed By: David Lowry MD Signed By: David Lowry MD Signed Date/Time: 12/30/22 2:56 pm Transcribed By: MARC Transcribed Date/Time: 12/30/22 2:55 pm * Exam Date Time Procedure Performing Provider Status 12/30/22 2:51 PM Chest 2 Views Frontal and Lat Magdi Painter (Verified) Notes: (Chest 2 Views Frontal and Lat) Reason For Exam: Pain;Other: RESULT: Chest 2 Views Frontal and Lat Chest 2 Views Frontal and Lat HX OF PRESENT ILLNESS: etoh fall; Reason: Other:; Pain; Clinical Question(s): Other:; Fracture, pneumothorax, pulmonary contusion / Other: COMPARISON: 12/24/2022 FINDINGS: LINES AND TUBES: None. LUNGS AND PLEURA: Clear lungs. Normal pulmonary vascularity. No pleural effusion. No pneumothorax. HEART, MEDIASTINUM AND MARCY: Heart is normal in size. Aorta is mildly calcified. BONES AND SOFT TISSUES: Multiple chronic right rib fractures, several of which have undergone prior ORIF. IMPRESSION: No evidence of acute abnormality. WSN: [id number] Ordering Physician: Brianda Thakkar Dictated By: David Lowry MD Dictated Date/Time: 12/30/22 2:55 pm Reviewed By: David Lowry MD Signed By: David Lowry MD Signed Date/Time: 12/30/22 2:55 pm Transcribed By: MARC Transcribed Date/Time: 12/30/22 2:54 pm Vital Signs Most recent to oldest [Reference Range]: 1 2 3 4 Height 180 cm (01/05/23 9:54 AM) 180 cm (01/05/23 6:33 AM) 180 cm (01/04/23 11:59 PM) Weight 65.2 kg (12/31/22 4:00 AM) 65.1 kg (12/31/22 12:13 AM) Oxygen Saturation [94-100 %] 98 % (01/05/23 9:54 AM) 99 % (01/05/23 6:33 AM) 99 % (01/04/23 11:59 PM) Pulse Rate [55-90 bpm] 102 bpm *H* (01/05/23 9:54 AM) 83 bpm (01/05/23 7:54 AM) 88 bpm (01/05/23 6:33 AM) Body Mass Index [18.5-24.99 kg/m2] 20.09 kg/m2 (12/31/22 12:13 AM) Blood Pressure [90-138/55-84 mm Hg] 120/68mm Hg (01/05/23 9:54 AM) 130/83mm Hg (01/05/23 7:54 AM) 140/86mm Hg *H* (01/05/23 6:33 AM) Respiratory Rate [16-30 br/min] 16 br/min (01/05/23 9:54 AM) 18 br/min (01/05/23 8:55 AM) 18 br/min (01/05/23 8:55 AM) 18 br/min (01/05/23 8:55 AM) Temperature [96.8-100.4 DegF] 98.1 DegF (01/05/23 9:54 AM) 98.2 DegF (01/05/23 6:33 AM) 98.5 DegF (01/04/23 11:59 PM) Mode of Delivery (Oxygen) Room air (01/05/23 9:54 AM) Room air (01/05/23 6:33 AM) Room air (01/04/23 11:59 PM) Blood pressure sites Arm, right (01/05/23 9:54 AM) Arm, right (01/05/23 7:54 AM) Arm, right (01/05/23 6:33 AM) Temperature Route Oral (01/05/23 9:54 AM) Oral (01/05/23 6:33 AM) Oral (01/04/23 11:59 PM) Dry Weight 65.1 kg (12/31/22 12:13 AM) Social History Social History Type Response Smoking Status Current every day aj adams; Type: Cigarettes; Other: 6 cigarettes per day; entered on: 09/27/15 Sex Admission evaluation note * Tamera BELTRÁN, Charlee: MODIFY, PERFORM, MODIFY Event Display: Admission Note Authored Date: Patient: ??MELISSA PORTER ? Age:??57 Years?Sex:??Male?:??1965?? Chief Complaint/Reason for Consultation Pt intoxicated, fell onto right shoulder. ??EMS did not note any deformity, pt refused c-collar. History of Present Illness Melissa Porter is a 57-year-old male with a??medical history significant for alcohol use disorder with recurrent admissions for alcohol intoxication and withdrawal, opioid seeking behavior, chronic back pain/failed back syndrome on duloxetine and gabapentin, pulmonary embolism on Eliquis, gastrointestinal bleeding history due to erosive esophagitis from binge drinking??(EGD on 11/06), and??hypertension who??presented to the ED after a fall. ?? Patient states that he had a fall earlier today after drinking 4 alcoholic beverages (screwdrivers)at about 10 AM. He subsequently blacked out and had an unwitnessed fall and hit the back of his head. He endorsed having some confusion but did not have any seizures to his knowledge or loss of urinary/bowel incontinence. He endorses some pain at the back of his head but had no bleeding. He states that he been attending detox programs for his alcohol use disorder but has had many relapses. Statesthat he has been drinking for the past 30 years and drinks about 6 beverages a day. He also smokes about 3-5 cigarettes a day and marijuana occasionally. ?? Upon arrival to the ED, patient was afebrile, normotensive, saturating well on room air.?? Labs revealed mild leukocytosis WBC 11.1, chronic anemia hemoglobin 10.1, thrombocytosis platelet count 585.?? Electrolytes within normal limits, mildly elevated alk phos 135. proBNP 287, HSTnT 28 and repeat 24.?? TSH low 0.14, free T4 normal 1.33.?? Toxicology showed ethanol levels 256.?? UA unremarkable. Chest x-ray showed no evidence of acute abnormality.?? Shoulder x-ray no acute osseous abnormality.?? CT head and brain showed no acute intracranial abnormality with some mild chronic small ischemic changes.?? A small meningioma is present within the left frontal lobe region, not significantly changed.?? Patient has degenerative disease throughout cervical spine. ?? In the ED, he was placed on CIWA protocol, given 1 mg Ativan, 500 cc LR, folic acid, multivitamins, thiamine. Upon my evaluation, patient stated that he has some shakes and nausea but has no othercomplaints. Patient is admitted for further management of alcohol withdrawal. ?? Review of Systems A full review of systems was completed and is otherwise negative except as mentioned in history of present illness. Objective Vital Signs?? Temperature: 98.5 DegF (12/30/22 23:03:00) Temperature Route: Oral (12/30/22 23:03:00) Pulse Rate: 89 bpm (12/30/22 23:03:00) Respiratory Rate: 16 br/min (12/30/22 23:03:00) Systolic Blood Pressure: 137 mm Hg (12/30/22 23:03:00) Diastolic Blood Pressure: 76 mm Hg (12/30/22 23:03:00) Blood pressure sites: Arm, right (12/30/22 23:03:00) Mean Arterial Pressure: 96 mm Hg (12/30/22 23:03:00) Pulse Pressure: 61 mm Hg (12/30/22 23:03:00) Oxygen Saturation: 99 % (12/30/22 23:03:00) Mode of Delivery (Oxygen): Room air (12/30/22 23:03:00) Early Warning Score: 0 (12/30/22 23:03:57) ? Physical Exam General:??No acute distress HEENT:??Moist mucus membranes, PERRL, no nystagmus, no scleral icterus Neck:??Supple Respiratory:??Clear to auscultation bilaterally, no increased work of breathing, no wheezes/crackles, good aeration to lung bases Cardiovascular:??Normal rate, regular rhythm, no murmurs, peripheral pulses intact Abdomen:??Normal active bowel sounds, soft, non-tender, non-distended, no hepatosplenomegaly Musculoskeletal:??No LE edema, moving all extremities normally, normal ROM, strength normal Neurologic:??Alert & Oriented,??no focal neurologic deficits Skin:??Warm and dry Psychiatric:??Normal mood/affect, normal cognition, normal judgement Assessment/Plan Melissa Porter is a 57-year-old male with a??medical history significant for alcohol use disorder with recurrent admissions for alcohol intoxication and withdrawal, opioid seeking behavior, chronic back pain/failed back syndrome on duloxetine and gabapentin, pulmonary embolism on Eliquis, gastrointestinal bleeding history due to erosive esophagitis from binge drinking??(EGD on 11/06), and??hypertension who??presented to the ED after a fall from alcohol use. Admitted for further management of alcohol withdrawal. ? Alcohol use disorder, moderate, dependence Fall due to intoxication Alcohol intoxication at risk of withdrawal Patient presenting with a fall and head strike after consuming alcohol. CT head/brain no acute intracranial abnormality. Has had multiple admissions for alcohol intoxication/withdrawal. Continues to endorse?? somepain at the site of head strike but denies any vision changes or headaches at this time. States that he??is starting to??experience withdrawal symptoms. ?? Plan: ?CIWA protocol??with Ativan ?Pyridoxine, thiamine, multivitamin, acamprosate?Appreciate SW assistance for alcohol use disorder ? Chronic, Stable, and Resolved: History of pulmonary embolism: Continue Eliquis History of erosive esophagitis, chronic anemia: Hemoglobin??stable at 10.1. Continue PPI and ferrous sulfate every other day. Hypertension: Continue lisinopril GERD:??Continue PPI Chronic back pain:??Continue duloxetine and gabapentin ? Quality Measures: Diet:??Regular DVT prophylaxis:??Eliquis Code Status:??FULL ? Charlee Philip MD Internal Medicine PGY1 Pager: [phone] ?? Patient seen and management discussed with attending physician,??Dr. Lorenzo Histories Allergies Allergies ?(Active and Proposed Allergies Only) Bee Stings? (Severity: Unknown severity, Onset: Unknown) ? Past Medical History/Problem List Active Problems??(13) Aortic aneurysm Cardiomyopathy - EF 40% on 01/19 Cellulitis Closed Fracture of Lumbar Vertebra without Mention of Spinal Cord Injury Esophageal reflux (GERD) Fracture of ribs, multiple GERD - Gastro-esophageal reflux disease Hand fracture, left Hypertension Low back pain - failed back syndrome Pulmonary embolism Right hip pain Right knee pain ? Past Surgical History Excision, tumor, soft tissue of face or scalp, subcutaneous; less than 2 cm: 08/23/13 OnQ pump placement: 04/26/12 Laminectomy: 05/18/88 Left wrist Right knee Hip Ribs, multiple fractures ? Social History Alcohol Details:??Use: Current. ??Frequency: 3-5 times per week. ??Type: Beer. Substance Abuse Details:??Type: crack. Details:??Use: Past. ??Type: Prescription medications, opiates. Tobacco Details:??Current every day smoker, Other: 6 cigarettes per day. ??Type: Cigarettes. ? Psychosocial History States that she has??some depression and anxiety. Patient is working on going to detox centers for his alcohol use. ? Family History Father: Hypertension ? Medications Home Medications Acamprosate (acamprosate 333 mg oral delayed release tablet)?2?tab(s)?666?Milligram?By Mouth?3 times a day?TAKE 2 TABLETS BY MOUTH THREE TIMES DAILY Acetaminophen (acetaminophen 325 mg oral tablet)?650?Milligram?By Mouth?Every 4 hours?as needed?Temperature Greater than 100.5?Pain , Mild apixaban (apixaban Starter Pack 5 mg oral tablet)?2?tab(s)?10?Milligram?By Mouth?2 times a day?for 7?Days?followed by 1 tablet by mouth twice daily for 23 days Duloxetine (duloxetine 30 mg oral enteric coated capsule)?1?capsule?30?Milligram?By Mouth?2 times a day Ferrous Sulfate (ferrous sulfate 325 mg oral enteric coated tablet)?325?Milligram?By Mouth?3 times a day?for 30?Days Folic Acid (folic acid 1 mg oral tablet)?1?Milligram?1?tablet?By Mouth?Daily Gabapentin (gabapentin 300 mg oral capsule)?300?Milligram?1?capsule?By Mouth?3 times a day Hydromorphone (Dilaudid 2 mg oral tablet)?1?tab(s)?2?Milligram?By Mouth?Every 6 hours?as needed?Pain , Severe Ibuprofen (ibuprofen 600 mg oral tablet)?600?Milligram?1?tablet?By Mouth?2 times a day with meals?for 7?Days Lidocaine Topical (Lidoderm 5% film)?1 patch?Topically?Daily?for 14?Days?apply 1 patch to right ribcageremove patches after 12 hours Lisinopril (lisinopril 10 mg oral tablet)?10?Milligram?1?tablet?By Mouth?Daily Melatonin (Melatonin 5 mg oral tablet)?1?tab(s)?5?Milligram?By Mouth?Daily at bedtime?as needed?for insomnia Multivitamin (multivitamin Multiple Vitamins oral tablet)?1?tab(s)?By Mouth?Daily Pantoprazole (pantoprazole 40 mg oral delayed release tablet)?1?tab(s)?40?Milligram?By Mouth?2 times a day Thiamine (thiamine 100 mg oral tablet)?100?Milligram?1?tablet?By Mouth?Daily ? Results Abnormal Labs ?? BLOOD COUNT & DIFF ??Abs. Imm Gran ??0.1 k/mm3 () ??12/30/2022 13:57 ??Abs. Lymph ??3.6 k/mm3 (High) ??12/30/2022 13:57 ??Abs. NRBC ??0.0 k/mm3 () ??12/30/2022 13:57 ??Hct ??31.9 % (Low) ??12/30/2022 13:57 ??Hgb ??10.1 Gm/dL (Low) ??12/30/2022 13:57 ??Imm Gran ??0.7 % () ??12/30/2022 13:57 ??MCH ??26.9 pg (Low) ??12/30/2022 13:57 ??MCHC ??31.7 g/dL (Low) ??12/30/2022 13:57 ??MPV ??8.6 femtoliters (Low) ??12/30/2022 13:57 ??[place] % ??3.4 % (Low) ??12/30/2022 13:57 ??Nucleated RBC (Automated) ??0.0 #/100 WBC'S () ??12/30/2022 13:57 ??Platelet Count ??585 k/mm3 (High) ??12/30/2022 13:57 ??RBC ??3.75 m/mm3 (Low) ??12/30/2022 13:57 ??RDW-SD ??45.7 femtoliters () ??12/30/2022 13:57 ??WBC ??11.1 k/mm3 (High) ??12/30/2022 13:57 ? CARDIAC ??High Sensitivity Troponin (HSTnT) ??24 ng/L (High) ??12/30/2022 19:32 ??Nt-Probnp ??287 pg/mL (High) ??12/30/2022 13:57 ? CHEM GENERAL ??AG Ratio ??1.6 () ??12/30/2022 13:57 ??Alkaline Phosphatase ??135 units/L (High) ??12/30/2022 13:57 ??Estimated GFR Creatinine ??108 ML/MIN/1.73 M2 () ??12/30/2022 13:57 ??Glucose Level ??67 mg/dL (Low) ??12/30/2022 13:57 ??Glucose, POC ??197 mg/dL (High) ??12/30/2022 15:43 ? ENDOCRINE/TUMOR MARKER ??TSH ??0.14 uIU/mL (Low) ??12/30/2022 13:57 ? TOXICOLOGY/TDM ??Ethanol, Serum or Plasma ??256 mg/dL (Abnormal) ??12/30/2022 13:57 ? UA/URINALYSIS ??Albumin, Urine ??NEGATIVE () ??12/30/2022 13:00 ??Appear/Color, Urine ??COLORLESS () ??12/30/2022 13:00 ??Bilirubin, Urine ??NEGATIVE () ??12/30/2022 13:00 ??Glucose, Urine ??NEGATIVE () ??12/30/2022 13:00 ??Hemoglobin, Urine ??NEGATIVE () ??12/30/2022 13:00 ??Hold Urine Culture ??Testing available 48 hours from time of collection. () ??12/30/2022 13:00 ??Ketones, Urine ??NEGATIVE () ??12/30/2022 13:00 ??Leukocyte, Urine ??NEGATIVE () ??12/30/2022 13:00 ??Nitrite, Urine ??NEGATIVE () ??12/30/2022 13:00 ??Urobilinogen ??NORMAL mg/dL () ??12/30/2022 13:00 ? VIROLOGY ??COVID-19 by RT-PCR ??NEGATIVE () ??12/30/2022 15:10 ? Note: Critical results are displayed in red. ? * oPoja Lorenzo MD: PERFORM Event Display: Admission Note Authored Date: I have evaluated and examined the patient on 12/30. I have discussed the care and management with the resident and agree with findings, assessment and plan outlined below EKG study * Event Display: ECG 12-Lead Authored Date: Please click on pdf link to open report * Event Display: ECG 12-Lead Authored Date: Ventricular Rate: 69 BPM Atrial Rate: 69 BPM P-R Interval: 144 ms QRS Duration: 92 ms Q-T Interval: 424 ms QTC Calculation(Bazett): 454 ms P [place]: 44 degrees R [place]: 9 degrees T [place]: 35 degrees Normal sinus rhythm Normal ECG When compared with ECG of 24-DEC-2022 22:35, No significant change was found Confirmed by KOJO RIOS ([id number]) on 01/04/2023 9:38:25 PM [place]: KOJO RIOS [facility] Progress note * Serg Bowser MD: PERFORM Event Display: [facility] Authored Date: Patient: ??MELISSA PORTER ? Age:??57 Years?Sex:??Male?:??1965?? Subjective No acute events overnight. Pain continues to be well controlled on current regimen. continues to feel dizzy this morning Initial orthostatic vital signs positive, repeats negative Endorses some right sided abdominal/lower chest pain around the site of his rib fractures. Review of Systems 10 point review of systems completed and otherwise negative unless noted above. Allergies Allergies ?(Active and Proposed Allergies Only) Bee Stings? (Severity: Unknown severity, Onset: Unknown) ? Past Medical History Active Problems??(13) Aortic aneurysm Cardiomyopathy - EF 40% on 7/11 Cellulitis Closed Fracture of Lumbar Vertebra without Mention of Spinal Cord Injury Esophageal reflux (GERD) Fracture of ribs, multiple GERD - Gastro-esophageal reflux disease Hand fracture, left Hypertension Low back pain - failed back syndrome Pulmonary embolism Right hip pain Right knee pain ? Past Surgical History Excision, tumor, soft tissue of face or scalp, subcutaneous; less than 2 cm: 08/23/13 OnQ pump placement: 04/26/12 Laminectomy: 05/18/88 Ribs, multiple fractures Left wrist Right knee Hip ? Objective Measurements?? Height: 180 cm (01/04/23) Weight: 65.2 kg (12/31/22) Dry Weight: 65.1 kg (12/31/22) Body Mass Index: 20.09 kg/m2 (12/31/22) ? Vital Signs?? Temperature: 97.6 DegF (01/04/23:32:00) Temperature Route: Oral (01/04/23:32:) Pulse Rate: 86 bpm (01/04/23:32:) Pulse Rate, Lyin bpm (01/04/23 08:01:00) Systolic Blood Pressure, Lyin mm Hg (01/04/23 08:01:00) Diastolic Blood Pressure, Lyin mm Hg (01/04/23 08:01:00) Pulse Rate, Sittin bpm (01/04/23 08:01:00) Systolic Blood Pressure, Sittin mm Hg (01/04/23 08:01:00) Diastolic Blood Pressure, Sittin mm Hg (01/04/23 08:01:00) Pulse Rate, Standin bpm (01/04/23 08:01:00) Systolic Blood Pressure, Standin mm Hg (01/04/23 08:01:00) Diastolic Blood Pressure, Stand[place] mm Hg (01/04/23 08:01:00) Respiratory Rate: 18 br/min (01/04/23:32:00) Systolic Blood Pressure: 111 mm Hg (01/04/23:32:00) Diastolic Blood Pressure: 76 mm Hg (01/04/23:32:00) Blood pressure sites: Arm, right (01/04/23:32:00) Mean Arterial Pressure: 88 mm Hg (06/26/23 11:32:00) Pulse Pressure: 35 mm Hg (01/04/23 11:32:00) Oxygen Saturation: 100 % (01/04/23 11:32:00) Mode of Delivery (Oxygen): Room air (01/04/23 11:32:00) Early Warning Score: 3 (01/04/23 11:36:44) ? Ventilator Settings?? No qualifying data available. ? Intake/Output? 12/30 20:32 01/04 07:00 01/03 07:00 01/02 07:00 01/01 07:00 ?? 01/04 13:27 01/04 13:27 01/04 06:59 01/03 06:59 01/02 06:59 Intake ? 7388 ? 1478 ? 1682 ? 1622 ? 1206 Output ? 1725 ?0 ?0 ? 1225 ?0 Net Total ? 5663 ? 1478 ? 1682 ?397 ? 1206 ? Urine Count ? 24 ?1 ?5 ?3 ? 13 ? Physical Exam Recent Vital Signs Temperature: 97.7 DegF (01/04/23 05:24:00) Pulse Rate: 80 bpm (01/04/23 05:24:00) Respiratory Rate: 18 br/min (01/04/23 06:50:00) Systolic Blood Pressure: 121 mm Hg (01/04/23 05:24:00) Diastolic Blood Pressure: 76 mm Hg (01/04/23 05:24:00) Oxygen Saturation: 100 % (01/04/23 05:24:00)? General Appearance:??NAD, lying in bed. HEENT: No scleral icterus or conjunctival injection. EOMI. Cardiovascular: RRR S1 and S2 heard with no M/R/G. Respiratory: ??Breath sounds clear to auscultation bilaterally. No wheezing. Good air movement throughout both lungs. GI: Soft. Tender to palpation in the right upper quadrant without rebound or guarding, right below ribline MS: ??No edema or erythema in the lower extremities. No wounds seen on the feet. Peripheral sensation intact.?? Neuro: ??No slurred speech. ??Patient seen moving their upper and lower extremities independently. Psych: Alert and oriented x3. Appropriate and pleasant. Lines: Peripheral IV in place.?? _ Inpatient Medications Medications (20) Active SCHEDULED: (17) Acamprosate 333mg EC Tablet (acamprosate 333 mg oral delayed release tablet) ??666 mg, By Mouth, 3 times a day Acetaminophen 325 mg Tablet (Acetaminophen Tablet) ??975 mg, By Mouth, 3 times a day Apixaban 5 mg Tablet (apixaban 5 mg oral tablet) ??5 mg, By Mouth, 2 times a day Docusate Sodium 100 mg Capsule (docusate sodium 100 mg oral capsule) ??200 mg 2 capsule, By Mouth, 2 times a day Duloxetine 30 mg Capsule (DULoxetine Capsule) ??30 mg, By Mouth, 2 times a day Ferrous Sulfate 325 mg EC Tablet (ferrous sulfate 325 mg oral enteric coated tablet) ??325 mg, By Mouth, Every other day Folic Acid 1 mg Tablet (folic acid 1 mg oral tablet) ??1 mg, By Mouth, Daily Gabapentin 300 mg Capsule (gabapentin 300 mg oral capsule) ??600 mg, By Mouth, 3 times a day Lidocaine 5% Topical Patch (Lidocaine 5% Patch) ??2 each, Topically, Daily Lisinopril 10 mg Tablet (lisinopril 10 mg oral tablet) ??10 mg, By Mouth, Daily Multivitamin Tablet ??1 tablet, By Mouth, Daily NaCl 0.9% Flush 3ml (NaCL 0.9% Flush) ??3 mL, IV Push, Every 8 hours Pantoprazole 40 mg EC Tablet (pantoprazole 40 mg oral delayed release tablet) ??40 mg, By Mouth, 2 times a day Polyethylene Glycol 17 Gm Powder (MiraLax Powder) ??17 Gm 1 pack/packet, By Mouth, Daily Pyridoxine 50 mg Tablet (pyridoxine 50 mg oral tablet) ??50 mg, By Mouth, Daily Remove Patch (Remove Lidocaine Patch) ??2 each, Topically, Daily at bedtime Thiamine 100 mg Tablet (thiamine 100 mg oral tablet) ??100 mg, By Mouth, Daily CONTINUOUS: (0) PRN: (3) Al hydroxide/Mg hydroxide/simethicone 200 mg-200 mg-20 mg/5 mL Susp UD (Maalox Plus Liquid) ??15 mL, By Mouth, 4 times a day Melatonin 3 mg Tablet (melatonin 3 mg oral tablet) ??6 mg, By Mouth, Daily at bedtime OxyCODONE 5 mg IR Tablet (oxyCODONE 5 mg oral tablet) ??2.5 mg, By Mouth, Every 6 hours ? Results Recent Labs BLOOD COUNT & DIFF WBC 6.5 k/mm3 ()?? 01/03/2023 00:05 RBC 3.43 m/mm3 (Low)?? 01/03/2023 00:05 Hgb 9.1 Gm/dL (Low)?? 01/03/2023 00:05 Hct 29.3 % (Low)?? 01/03/2023 00:05 MCV 85.4 femtoliters ()?? 01/03/2023 00:05 MCH 26.5 pg (Low)?? 01/03/2023 00:05 MCHC 31.1 g/dL (Low)?? 01/03/2023 00:05 Platelet Count 388 k/mm3 ()?? 01/03/2023 00:05 RDW-SD 44.3 femtoliters ()?? 01/03/2023 00:05 MPV 9.0 femtoliters (Low)?? 01/03/2023 00:05 Nucleated RBC (Automated) 0.0 #/100 WBC'S ()?? 01/03/2023 00:05 Abs. NRBC 0.0 k/mm3 ()?? 01/03/2023 00:05 ?? CHEM GENERAL Sodium 134 mmol/L ()?? 01/04/2023 00:02 Potassium 4.4 mmol/L ()?? 01/04/2023 00:02 Chloride 99 mmol/L ()?? 01/04/2023 00:02 Bicarbonate Level 23 mmol/L ()?? 01/04/2023 00:02 Anion Gap 12 ()?? 01/04/2023 00:02 Glucose Level 106 mg/dL (High)?? 01/04/2023 00:02 BUN 19 mg/dL ()?? 01/04/2023 00:02 Creatinine-Blood 0.9 mg/dL ()?? 01/04/2023 00:02 Estimated GFR Creatinine 99 ML/MIN/1.73 M2 ()?? 01/04/2023 00:02 Calcium 8.7 mg/dL ()?? 01/04/2023 00:02 Phosphorus 3.2 mg/dL ()?? 01/03/2023 00:05 Magnesium 1.9 mg/dL ()?? 01/03/2023 00:05 ?? URINE OTHER Sodium, Urine Random 61 mmol/L ()?? 01/03/2023 13:54 Osmolality, Urine Random 327 mOsm/kg ()?? 01/03/2023 13:54 Est Creatinine Clearance 82.38 mL/min ()?? 01/04/2023 01:54 ? Abnormal Labs ?? CHEM GENERAL ??Estimated GFR Creatinine ??99 ML/MIN/1.73 M2 () ??01/04/2023 00:02 ??Glucose Level ??106 mg/dL (High) ??01/04/2023 00:02 ? URINE OTHER ??Sodium, Urine Random ??61 mmol/L () ??01/03/2023 13:54 ? Note: Critical results are displayed in red. ? Assessment/Plan Chief Complaint: Pt intoxicated, fell onto right shoulder. ??EMS did not note any deformity, pt refused c-collar. ?? Assessment:??57-year-old male with PMH for alcohol use disorder with recurrent admissions for alcohol intoxication and withdrawal, opioid seeking behavior, chronic back pain/failed back syndrome on duloxetine and gabapentin, pulmonary embolism on Eliquis, gastrointestinal bleeding history due to erosive esophagitis from binge drinking (EGD on 11/06), and hypertension who presented to the ED on 12/30 after a fall while intoxicated. Patient was admitted for management of alcohol withdrawal and required minimal doses of ativan while on CIWA now off CIWA protocol. Course has been complicated by pain in setting of acute rib fractures, orthostatic hypotension, and hyponatremia, the latter??of whichhas been resolved. ?? Orthostatic hypotension ??Pt with positive orthostatics on 01/02, 01/03, 01/04 although improved with multiple fluid boluses ??He is symptomatic with dizziness ??Has been having poor PO intake with nausea, although this is also improving ??May be what has led to frequent falls at home ??PT recommending home with services ?? Plan: ??-Given 1L bolus ??-Encourage oral intake ??-Repeat orthostatics in afternoon ??- Advised increased salt in diet (mildly) to improve intravascular??volume status - Will arrange PT resources per recs for discharge. ?? Electrolyte imbalances: mild hyponatremia and hypochloridemia, resolved ?Pt is mildly hyponatremia and hypochloridemia today at 132 and 9.7. This is likely hypovolemic hyponatremia in the setting of poor PO intake secondary to odynophagia and vomiting. ??Resolved with volume repletion ??Urine??sodium??unexpectedly high for??degree of hyponatremia although patient received IV fluids??shortly prior to urine study collection ? Plan: ???Repeat BMP??01/05 ?? Constipation ??Pt has not had good BM in several days, had a small BM 01/03 ??Denies abdominal pain ?? Plan: ??- scheduled docusate and miralax, if no BM by afternoon will??give suppository. ?? Alcohol use disorder, moderate, dependence Alcohol intoxication with mild withdrawal - resolved ??Reported some symptoms of withdrawal (improving tremors, diaphoresis) earlier in admission. ??No longer requiring ativan on CIWA protocol. ??Now having dizziness, orthostatic positive (see above) ? Plan: ??? Discontinued CIWA protocol ??? Continue thiamine, multivitamin, Acamprosate, and pyridoxine ?? Occipital head pain s/p fall due to intoxication Rib fractures with associated chest wall pain Right sided abdominal tenderness to palpation ??Patient continues to endorse pain at the site of head strike with mild improvement but denies anyvision/auditory changes or headaches at this time. ??The pt also continues to complain of non-radiating right sided chest pain s/p fall without improvement on pain medication. The chest pain is likely musculoskeletal in etiology s/p his fall especially given that chest pain is reproducible on exam today. EKG was normal yesterday. ??The right sided abdominal tenderness to palpation is also likely related to the right fourth, fifth, sixth and seventh rib fractures seen on his CT chest w/o contrast from 12/25. ? Plan: ??? Continue gabapentin 600 mg ??? Continue lidocaine patches and oxycodone 2.5 mg PRN ??? Continue PRN acetaminophen 975 mg TID. Normal LFTs and no evidence of cirrhosis on CT abd/pelvis (12/25) - Incentive spirometer while??admitted to prevent atelectasis ? Chronic Stable conditions History of pulmonary embolism: Continue Eliquis BID Chronic anemia: Hemoglobin stable at 8.4 today. Continue ferrous sulfate every other day. History of erosive esophagitis and GERD: Continue PPI Chronic back pain: Continue duloxetine and gabapentin ??Hypertension: continue lisinopril ? Quality Measures: Diet: Regular DVT prophylaxis: Eliquis Code Status: FULL ?? Discharge Planning:??pending improvement in orthostatics, set up for home services. Anticipate early d/c in??AM ?? Patient was seen and discussed with attending physician ??Chad ?? Serg Bowser MD PGY-3 Medicine-Pediatrics Pager [phone] ? * Lindsey Bonilla DO: PERFORM Event Display: Progress Note Hospital Authored Date: [id number] Attending Attestation: I have seen and evaluated this patient.?? I have discussed the case and its management with the resident and agree with the findings and plan as documented in the resident???s note. * Isabel Singer RN: PERFORM, SIGN, VERIFY Event Display: Progress Note Hospital Authored Date: [id number] Patient: MELISSA PORTER Age: 57 years Sex: Male : 1965 Associated Diagnoses: None Author: Lucrecia HUSSEIN, Isabel Findings Problem Related to Alteration in Safety : Alteration in Safety/new 01/04/2023 8:00 EDT Alteration in Safety Related to Injury, Other: fall Goals & Outcomes, Safety Psychosocial support will be provided to Pt/S.O. as needed, Pt/caregiver will state understanding of plan/goals of care, Pt will remain safe & injury free, Pt/caregiver will be offered appropriate resources & support, Pt/caregiver will verbalize understanding ofthe D/C plan Interventions, Safety Provide teaching as needed, Instruct pt on maintaining a safe environment BH Goals/Interventions, Safety Yes Safety, Problem Start 12/31/2022 4:56 Reviewed plan with, Safety Patient Patient Progression, Safety Pt progressing according to plan . Nursing Data Vital Signs : VITAL SIGNS SECTION 01/04/2023 8:14 EDT Early Warning Score 3.00 01/04/2023 8:14 EDT Temperature 97.8 DegF Temperature Route Oral Pulse Rate 78 bpm Respiratory Rate 18 br/min Systolic Blood Pressure 110 mm Hg Diastolic Blood Pressure 76 mm Hg Blood pressure sites Arm, left Mean Arterial Pressure 87 mm Hg Pulse Pressure 34 mm Hg Oxygen Saturation 99 % Mode of Delivery (Oxygen) Room air 01/04/2023 8:01 EDT Pulse Rate, Lying 74 bpm Systolic Blood Pressure, Lying 115 mm Hg Diastolic Blood Pressure, Lying 80 mm Hg Pulse Rate, Sitting 88 bpm Systolic Blood Pressure, Sitting 113 mm Hg Diastolic Blood Pressure, Sitting 71 mm Hg Pulse Rate, Standing 108 bpm Systolic Blood Pressure, Standing 111 mm Hg Diastolic Blood Pressure, Standing 71 mm Hg 01/04/2023 6:52 EDT Pulse Rate, Lying 84 bpm Systolic Blood Pressure, Lying 112 mm Hg Diastolic Blood Pressure, Lying 72 mm Hg Pulse Rate, Sitting 93 bpm Systolic Blood Pressure, Sitting 106 mm Hg Diastolic Blood Pressure, Sitting 78 mm Hg Pulse Rate, Standing 117 bpm Systolic Blood Pressure, Standing 91 mm Hg Diastolic Blood Pressure, Standing 60 mm Hg . Evaluation Mr Porter is alert and oriented x 3. Cooperative. VSS on RA. Medicated as ordered see SEP. Scheduled bowel medications adminsitered. Last bm on 12/30. No report of n/v/discomfort in abdomen. Right forearm iv patent. See PT note for recommendations. Alteration in safety related to fall/injury. See interventions listed in care plan. He reports right flank discomfort rated 7 out of 10 this morning. Lidocaine patch placed on right flank and center of chest. prn and scheduled medications in place for discomfort and being administered. Orthos completed this morning as ordered. Documented in CIS. Fall precuations in place. Mr Porter continues to report dizziness. Patient safety occurring with bed in lowest and locked position with call michel within reach. Rounding occurring. Whiteboard and plan of care updated with patient.. Discharge Information Case Management Discharge Plan : Case Management Discharge Plan Data 01/01/2023 9:03 EDT Discharge Level of Care at Discharge Home[facility] Discharge : Rehab Discharge Index 01/04/2023 6:18 EDT Comments on treatment indicated 57 M admitted 2' fall, etoh withdrawl, [place]. WBAT.Skilled PT for ambulation c LRAD, transfers, strength, balance, safety, stairs. Anticipate home c services Distance pt will ambulate > 100 feet s AD Full chart review completed Yes Hospital course Hospital course Other findings see comment Plan of care PT Gait training, Transfer training, Therapeutic exercise, Functional Activities, Balance training, Neuromuscular education * Sameera Chappell RN: VERIFY, PERFORM, SIGN Event Display: Progress Note Hospital Authored Date: [id number] Patient: MELISSA PORTER Age: 57 years Sex: Male : 1965 Associated Diagnoses: None Author: Sameera Chappell RN Findings Problem Related to Alteration in Safety : Alteration in Safety/new 01/04/2023 3:00 EDT Alteration in Safety Related to Injury, Other: fall Goals & Outcomes, Safety Psychosocial support will be provided to Pt/S.O. as needed, Pt/caregiver will state understanding of plan/goals of care, Pt will remain safe & injury free, Pt/caregiver will be offered appropriate resources & support, Pt/caregiver will verbalize understanding ofthe D/C plan Interventions, Safety Provide info on community resources for education, support, Provide teaching as needed BH Goals/Interventions, Safety Yes Safety, Problem Start 12/31/2022 4:56 Reviewed plan with, Safety Patient Patient Progression, Safety Pt progressing according to plan . Nursing Data Vital Signs : VITAL SIGNS SECTION 01/03/2023 21:02 EDT Early Warning Score 2.00 01/03/2023 21:02 EDT Temperature 98.0 DegF Temperature Route Oral Pulse Rate 79 bpm Respiratory Rate 17 br/min Systolic Blood Pressure 100 mm Hg Diastolic Blood Pressure 58 mm Hg Blood pressure sites Arm, right Mean Arterial Pressure 72 mm Hg Pulse Pressure 42 mm Hg Oxygen Saturation 99 % Mode of Delivery (Oxygen) Room air . Narrative/Incidental Pt alert, orient x4. Able to make needs known. C/o pain, prn oxy given being effective. Pt continent, independent to bathroom, denied dizziness. Last BM 12/30, scheduled BM meds given, pt refused prune juice or milk of mag, BS+ & pt passing gas. Safety maintained, frequent checks done, call light in reach, all needs attended. . Note * Lindsey Bonilla DO: MODIFY Lindsey Bonilla DO: MODIFY Event Display: Discharge/Transfer Note Hospital Authored Date: [id number] Patient: ??MELISSA PORTER ? Age:??57 Years?Sex:??Male?:??1965?? Patient Information Discharge Location: [facility] Care [facility] Admit Date/Time: 12/30/22 20:32 Discharge Disposition Discharge Disposition: Home with Home Health Discharge Diagnosis Syncope (R55) Withdrawal symptoms, alcohol (F10.939) ?? _ Discharge Medications Acamprosate (acamprosate 333 mg oral delayed release tablet)?2?tab(s)?666?Milligram?By Mouth?3 times a day?TAKE 2 TABLETS BY MOUTH THREE TIMES DAILY Acetaminophen (acetaminophen 325 mg oral tablet)?650?Milligram?By Mouth?Every 4 hours?as needed?Temperature Greater than 100.5?Pain , Mild apixaban (apixaban Starter Pack 5 mg oral tablet)?2?tab(s)?10?Milligram?By Mouth?2 times a day?for 7?Days?followed by 1 tablet by mouth twice daily for 23 days Duloxetine (duloxetine 30 mg oral enteric coated capsule)?1?capsule?30?Milligram?By Mouth?2 times a day Ferrous Sulfate (ferrous sulfate 325 mg oral enteric coated tablet)?325?Milligram?By Mouth?3 times a day?for 30?Days Folic Acid (folic acid 1 mg oral tablet)?1?Milligram?1?tablet?By Mouth?Daily Gabapentin (gabapentin 600 mg oral tablet)?1?tab(s)?600?Milligram?By Mouth?3 times a day Lidocaine Topical (Lidoderm 5% film)?1 patch?Topically?Daily?for 14?Days?apply 1 patch to right ribcageremove patches after 12 hours Lisinopril (lisinopril 10 mg oral tablet)?10?Milligram?1?tablet?By Mouth?Daily Melatonin (Melatonin 5 mg oral tablet)?1?tab(s)?5?Milligram?By Mouth?Daily at bedtime?as needed?for insomnia Multivitamin (multivitamin Multiple Vitamins oral tablet)?1?tab(s)?By Mouth?Daily Oxycodone (oxyCODONE 5 mg oral tablet)?2.5?Milligram?By Mouth?Every 6 hours?as needed?Pain , Severe Pantoprazole (pantoprazole 40 mg oral delayed release tablet)?1?tab(s)?40?Milligram?By Mouth?2 times a day Pyridoxine (pyridoxine 50 mg oral tablet)?50?Milligram?By Mouth?Daily Senna (Senna 8.6 mg oral tablet)?8.6?Milligram?1?tab(s)?By Mouth?Daily at bedtime Thiamine (thiamine 100 mg oral tablet)?100?Milligram?1?tablet?By Mouth?Daily ? Medications Started Oxycodone Senna Pyridoxine ?? Doses Changed Gabapentin increased to 600 PCP Follow-Up/Heads-Up - Follow up on alcohol use, pain control - Repeat orthostatic vital signs, discuss ways to maintain hydration. Hospital Course 57-year-old male with a medical history significant for alcohol use disorder with recurrent admissions for alcohol intoxication and withdrawal, opioid seeking behavior, chronic back pain/failed back syndrome on duloxetine and gabapentin, pulmonary embolism on Eliquis, gastrointestinal bleeding history due to erosive esophagitis from binge drinking (EGD on 11/06), and hypertension who presented to the ED after a fall on 12/30 in the setting of alcohol intoxication.??Upon arrival to the ED, patientwas afebrile, normotensive, saturating well on room air. Labs revealed mild leukocytosis WBC 11.1, chronic anemia hemoglobin 10.1, thrombocytosis platelet count 585. Electrolytes within normal limits, mildly elevated alk phos 135. proBNP 287, HSTnT 28 and repeat 24. TSH low 0.14, free T4 normal 1.33. Toxicology showed ethanol levels 256.??Chest x-ray showed no evidence of acute abnormality. Shoulder x-ray no acute osseous abnormality. CT head and brain showed no acute intracranial abnormality with some mild chronic small ischemic changes. A small meningioma is present within the left frontal lobe region, not significantly changed.? In the ED, he was placed on CIWA protocol, given 1 mg Ativan, 500 cc LR, folic acid, multivitamins,thiamine and was admitted??for further management of??alcohol withdrawal.??Patient completed CIWA protocol??on??day??4 of admission??and required minimal doses of Ativan.??At that time patient's most? ?significant concern was pain related to??rib fractures diagnosed on??previous admission (discharged 12/27)??as well as dizziness on standing??secondary to orthostatic hypotension. Patient was??given multiple fluid boluses over??2-day period with resolution and orthostatic hypotension.??On day of discharge patient felt??comfortable with leaving the hospital??with physical therapy??to be set up??once patient has??a rest home. ?? Recommendations by problem: Orthostatic hypotension ?Pt with positive orthostatics on 01/02, 01/03, 01/04 although improved with multiple fluid boluses ?Vital signs improved by time of discharge, reports slight dizziness but not enough to??be concerned for his own safety ?Recommendations - Continue to maintain 64oz fluid input with at least 16-24oz of electrolyte containing fluids ??- Home PT services to be arranged??once final destination set.?- Follow up??with PCP ?? Electrolyte imbalances: mild hyponatremia and hypochloridemia, resolved ?Pt is mildly hyponatremia and hypochloridemia today at 132 and 9.7. This is likely hypovolemic hyponatremia in the setting of poor PO intake secondary to odynophagia and vomiting. ?Resolved with volume repletion ?Urine sodium unexpectedly high for degree of hyponatremia although patient received IV fluids shortly prior to urine study collection ? Recommendations:?- Repeat as clinically indicated ? Constipation ?Went without good bowel movement for several days while hospitalized, likely in the setting of opioid use for pain control as well as acute illness ??Last BM 01/04 ?Denies abdominal pain, bleeding with stool ?Recommendations - Sent patient home with daily senna at bedtime to maintain soft bowel movements ? Alcohol use disorder, moderate, dependence Alcohol intoxication with mild withdrawal - resolved ?Reported some symptoms of withdrawal (improving tremors, diaphoresis) earlier in admission. ?No longer requiring ativan on CIWA protocol. ?Now having dizziness, orthostatic positive (see above) ? Recommendations: ??? Continue thiamine, multivitamin, Acamprosate, and pyridoxine - Can follow up with rehabs daily. ? Occipital head pain s/p fall due to intoxication ??Rib fractures with associated chest wall pain ??Right sided abdominal tenderness to palpation ?Patient continues to endorse pain at the site of head strike with mild improvement but denies any vision/auditory changes or headaches at this time. ?The pt also continues to complain of non-radiating right sided chest pain s/p fall without improvement on pain medication. The chest pain is likely musculoskeletal in etiology s/p his fall especially given that chest pain is reproducible on exam today. EKG was normal yesterday. ?The right sided abdominal tenderness to palpation is also likely related to the right fourth, fifth, sixth and seventh rib fractures seen on his CT chest w/o contrast from 12/25. ? Plan: ??? Continue gabapentin 600 mg ??? Continue oxycodone 2.5 mg PRN, follow up with PCP for further pain control ??? Continue PRN acetaminophen 975 mg TID. Normal LFTs and no evidence of cirrhosis on CT abd/pelvis (12/25) ??- Incentive spirometer while admitted to prevent atelectasis ? Chronic Stable conditions ??History of pulmonary embolism: Continue Eliquis BID ??Chronic anemia:??Continue ferrous sulfate every other day. Repeat iron studies in 3 months. ??History of erosive esophagitis and GERD: Continue PPI ??Chronic back pain: Continue duloxetine and gabapentin ?Hypertension: continue lisinopril ?? Objective Measurements?? Height: 180 cm (01/05/23) Weight: 65.2 kg (12/31/22) Dry Weight: 65.1 kg (12/31/22) Body Mass Index: 20.09 kg/m2 (12/31/22) ? Vital Signs?? Temperature: 98.1 DegF (01/05/23 09:54:00) Temperature Route: Oral (01/05/23 09:54:00) Pulse Rate:??102 bpm??High (01/05/23 09:54:00) Respiratory Rate: 16 br/min (01/05/23 09:54:00) Systolic Blood Pressure: 120 mm Hg (01/05/23 09:54:00) Diastolic Blood Pressure: 68 mm Hg (01/05/23 09:54:00) Blood pressure sites: Arm, right (01/05/23 09:54:00) Mean Arterial Pressure: 85 mm Hg (01/05/23 09:54:00) Pulse Pressure: 52 mm Hg (01/05/23 09:54:00) Oxygen Saturation: 98 % (01/05/23 09:54:00) Mode of Delivery (Oxygen): Room air (01/05/23 09:54:00) Early Warning Score: 0 (01/05/23 10:52:59) ? . Physical Exam Recent Vital Signs Temperature: 98.1 DegF (01/05/23 09:54:00) Pulse Rate:??102 bpm??High (01/05/23 09:54:00) Respiratory Rate: 16 br/min (01/05/23 09:54:00) Systolic Blood Pressure: 120 mm Hg (01/05/23 09:54:00) Diastolic Blood Pressure: 68 mm Hg (01/05/23 09:54:00) Oxygen Saturation: 98 % (01/05/23 09:54:00)? General Appearance:??NAD, sitting up in bed drinking coffee HEENT: No scleral icterus or conjunctival injection. Cardiovascular: RRR S1 and S2 heard with no M/R/G. Respiratory: ??Breath sounds clear to auscultation bilaterally. No wheezing. Good air movement throughout both lungs. GI: Soft. Nontender and nondistended. Normal bowel sounds present throughout abdomen.?? MS: ??No edema or erythema in the lower extremities. Peripheral sensation intact.?? Neuro: ??No slurred speech. ??Patient seen moving their upper and lower extremities independently. Psych:??Appropriate and pleasant. Consultants Addiction Medicine consult Pending Results No Pending Results Patient Education Titles What Is Syncope??? Rib Fracture?? Rib Fracture (Broken Rib)?? Treating Syncope: Prevention?? Social Drinking vs. Problem Drinking?? Alcohol Withdrawal: What to Expect?? Follow-Up Appointments Added Follow Up ?Time Frame ?Comments Navjot BELTRÁN , Maximo?3-5 day: call to discuss follow up visit?Follow up pain control for rib fractures, dizziness. Patient Instructions DIAGNOSIS: Alcohol withdrawal, acute rib fractures, orthostatic hypotension ? Your specific PATIENT CARE INSTRUCTIONS (what to do / when to return): [] continue to drink plenty of fluids. Try to drink at least 16-24oz of fluids with electrolytes such as gatorade or powerade [] If you are feeling dizzy, sit down in a safe space as quickly as possible. [] Continue as needed oxycodone for pain control from rib fractures and neck injury, please call your PCP for further pain control measures if required [] Take the higher dose gabapentin three times a day at home [] Continue to use incentive spirometer at home to help keep your lungs well expanded [] Return to the ED if you develop a fever T >101F for 2-3 days, shortness of breath, lethargy or confusion as these could be signs of a lung infection [] Recommend continuing to avoid alcohol use to reduce risk for complications and falls that can worsen your injuries. ? MEDICATIONS (what medications you should start (or stop) taking): [] Oxycodone 2.5mg q6hr PRN for severe pain [] Gabapentin increased to 600mg [] Pyridoxine [] Senna 8.6 daily at bedtime. Post Discharge Care Discharge ?[facility], ??01/05/23 9:41:00 EDT Home Health Face to Face *Denotes mandatory wilkinson ?? *I certify that this patient is under my care and that I or an allowed non- physician working with me had a face to face encounter with the patient on this date:??01/05/2023 10:57 ?? *The encounter with the patient was in whole, or in part, for the following medical condition, which is the primary diagnosis(es) for home health care:??Syncope (R55) Withdrawal symptoms, alcohol (F10.601) ? *Select the indications for the discipline/s that are being arranged for this patient. Nursing (select all that apply): [_] None [_] Medication management (reconciliation, teaching)?? [x] Chronic disease management?? [_] Wound care and treatment?? [_] Home safety evaluation [_] Administer SQ/IM/IV medications?? [_] Cath care?? [_] Drain care?? [_] Trach or GT care?? Other _ Occupation Therapy (select all that apply): [_] None [_] ADL Management [_] Fall prevention training [_] Energy conservation [_] Cognitive training Other _ Physical Therapy (select all that apply): [_] None [_] Functional mobility training [x] Home exercise program to strengthen [_] Increase ROM?? [x] Falls prevention training [_] Home maintenance program for chronic disease Other _ Speech Therapy (select all that apply): [_] None [_] Swallow evaluation and training [_] Speech and language training [_] Cognitive training to process, organize, and/or recall information Other _ ? *Homebound due to (select all that apply): [_] Inability to leave home without assistance/supervision [_] Inability to ambulate without assistance [x] Pain [x] Decreased strength and endurance [_] Unsteady gait [_] Severe SOB and fatigue [_] Impaired transfers [_] Inability to negotiate stairs [_] Limited weight bearing [_] Mental status change? *Physician Signature:?Dr. Serg Bowser ?? *By signing this, I certify that I have personally evaluated the patient and agree with the findings and recommendations as documented above. ? Results Discharge Labs BLOOD COUNT & DIFF WBC 5.7 k/mm3 ()?? 01/05/2023 00:05 RBC 3.40 m/mm3 (Low)?? 01/05/2023 00:05 Hgb 8.9 Gm/dL (Low)?? 01/05/2023 00:05 Hct 28.9 % (Low)?? 01/05/2023 00:05 MCV 85.0 femtoliters ()?? 01/05/2023 00:05 MCH 26.2 pg (Low)?? 01/05/2023 00:05 MCHC 30.8 g/dL (Low)?? 01/05/2023 00:05 Platelet Count 327 k/mm3 ()?? 01/05/2023 00:05 RDW-SD 45.0 femtoliters ()?? 01/05/2023 00:05 MPV 9.1 femtoliters (Low)?? 01/05/2023 00:05 Nucleated RBC (Automated) 0.0 #/100 WBC'S ()?? 01/05/2023 00:05 Abs. NRBC 0.0 k/mm3 ()?? 01/05/2023 00:05 Abs. Neut 6.9 k/mm3 ()?? 12/30/2022 13:57 Abs. Lymph 3.6 k/mm3 (High)?? 12/30/2022 13:57 Abs. [place] 0.4 k/mm3 ()?? 12/30/2022 13:57 Abs. Eo 0.1 k/mm3 ()?? 12/30/2022 13:57 Abs. Baso 0.1 k/mm3 ()?? 12/30/2022 13:57 Neut % 62.0 % ()?? 12/30/2022 13:57 Lymph % 32.3 % ()?? 12/30/2022 13:57 [place] % 3.4 % (Low)?? 12/30/2022 13:57 Eos % 0.5 % ()?? 12/30/2022 13:57 Baso % 1.1 % ()?? 12/30/2022 13:57 Imm Gran 0.7 % ()?? 12/30/2022 13:57 Abs. Imm Gran 0.1 k/mm3 ()?? 12/30/2022 13:57 ?? CARDIAC Nt-Probnp 287 pg/mL (High)?? 12/30/2022 13:57 High Sensitivity Troponin (HSTnT) 24 ng/L (High)?? 12/30/2022 19:32 ?? CHEM GENERAL Sodium 136 mmol/L ()?? 01/05/2023 00:05 Potassium 4.6 mmol/L ()?? 01/05/2023 00:05 Chloride 100 mmol/L ()?? 01/05/2023 00:05 Bicarbonate Level 24 mmol/L ()?? 01/05/2023 00:05 Anion Gap 12 ()?? 01/05/2023 00:05 Glucose Level 103 mg/dL (High)?? 01/05/2023 00:05 Glucose, POC 197 mg/dL (High)?? 12/30/2022 15:43 BUN 16 mg/dL ()?? 01/05/2023 00:05 Creatinine-Blood 0.8 mg/dL ()?? 01/05/2023 00:05 Estimated GFR Creatinine 101 ML/MIN/1.73 M2 ()?? 01/05/2023 00:05 Calcium 9.1 mg/dL ()?? 01/05/2023 00:05 Phosphorus 3.2 mg/dL ()?? 01/03/2023 00:05 Magnesium 1.9 mg/dL ()?? 01/03/2023 00:05 Protein, Total 6.7 Gm/dL ()?? 12/30/2022 13:57 Albumin 4.1 Gm/dL ()?? 12/30/2022 13:57 AG Ratio 1.6 ()?? 12/30/2022 13:57 Alkaline Phosphatase 135 units/L (High)?? 12/30/2022 13:57 AST (SGOT) 24 units/L ()?? 12/30/2022 13:57 ALT (SGPT) 11 units/L ()?? 12/30/2022 13:57 Bilirubin, Total 0.2 mg/dL ()?? 12/30/2022 13:57 ?? ENDOCRINE/TUMOR MARKER TSH 0.14 uIU/mL (Low)?? 12/30/2022 13:57 Free T4 1.33 ng/dL ()?? 12/30/2022 13:57 ?? TOXICOLOGY/TDM Ethanol, Serum or Plasma 256 mg/dL (Abnormal)?? 12/30/2022 13:57 ? UA/URINALYSIS Appear/Color, Urine COLORLESS ()?? 12/30/2022 13:00 Specific [place], Urine 1.007 ()?? 12/30/2022 13:00 pH, Urine 6.0 ()?? 12/30/2022 13:00 Albumin, Urine NEGATIVE ()?? 12/30/2022 13:00 Glucose, Urine NEGATIVE ()?? 12/30/2022 13:00 Ketones, Urine NEGATIVE ()?? 12/30/2022 13:00 Bilirubin, Urine NEGATIVE ()?? 12/30/2022 13:00 Hemoglobin, Urine NEGATIVE ()?? 12/30/2022 13:00 Nitrite, Urine NEGATIVE ()?? 12/30/2022 13:00 Leukocyte, Urine NEGATIVE ()?? 12/30/2022 13:00 Urobilinogen NORMAL mg/dL ()?? 12/30/2022 13:00 WBC's, Urine 1 /HPF ()?? 12/30/2022 13:00 RBC's, Urine 1 /HPF ()?? 12/30/2022 13:00 Hold Urine Culture Testing available 48 hours from time of collection. ()?? 12/30/2022 13:00 ?? URINE OTHER Sodium, Urine Random 61 mmol/L ()?? 01/03/2023 13:54 Osmolality, Urine Random 327 mOsm/kg ()?? 01/03/2023 13:54 Est Creatinine Clearance 92.68 mL/min ()?? 01/05/2023 01:43 ? VIROLOGY COVID-19 by RT-PCR NEGATIVE ()?? 12/30/2022 15:10 ? Microbiology ?? COVID-19 (Novel Coronavirus), Rapid PCR?? Completed?? Source: Nasal Body Site: Nose Collected Dt/Tm: 12/30/2022 14:54 Last Updated Dt/Tm: 12/30/2022 16:47 ? Imaging(s) ?CT Head/Brain W/O Contrast ?? 12/30/2022 18:50??by Sadia BELTRÁN, Yeyo Marks ?IMPRESSION: No acute intracranial abnormality. Mild chronic small ischemic changes. Small meningioma within theleft frontal lobe region, not significantly changed. No cervical spine fracture or subluxation. Disc and facet degenerative disease throughout the cervical spine. ?CT Cervical Spine W/O Contrast ?? 12/30/2022 18:50??by Sadia BELTRÁN, Yeyo Marks ?IMPRESSION: No acute intracranial abnormality. Mild chronic small ischemic changes. Small meningioma within theleft frontal lobe region, not significantly changed. No cervical spine fracture or subluxation. Disc and facet degenerative disease throughout the cervical spine. ?Shoulder Min 2 Views Right ?? 12/30/2022 14:51??by David Lowry MD ?IMPRESSION: ?? No evidence of acute osseous abnormality. ? Consults(s) ?Consultation Note ?? 12/31/2022 12:25??by Letitia Teixeira ?Addiction medicine consult ?Patient was seen and discussed with attending physician ??Chad ?? Serg Bowser MD PGY-3 Medicine-Pediatrics Pager [phone]??minutes spent on discharge * Lindsey Bonilla DO: PERFORM Event Display: Discharge/Transfer Note Hospital Authored Date: [id number] Attending Attestation: I have seen and evaluated this patient.?? I have discussed the case and its management with the resident and agree with the findings and plan as documented in the resident???s note. * Velia Shepherd RN: PERFORM Event Display: Discharge/Transfer Note Hospital Authored Date: [id number] Nursing Discharge Note Entered On: 01/05/2023 10:23 EDT Performed On: 01/05/2023 10:23 EDT by Velia Shepherd RN Nursing Discharge Note 2 Discharge Time : 01/05/2023 10:50 EDT Velia Shepherd RN - 01/05/2023 17:45 EDT Discharge Level of Care at Discharge : Homehealth/VNA Discharge VNA/Hospice/Home Care(v001) : [facility] [phone] Patient Left Unit Via : Wheelchair Patient Accompanied Off Unit with : Responsible adult, Other: STAFF DC Instructions Provided & Signed by Pt : Yes Patient Understands D/C Instructions : Yes Patient Instructions Discharge Signed : Yes Did Pt have Specialty Bed or Wound Vac : No Velia Shepherd RN - 01/05/2023 10:23 EDT * Velia Shepherd RN: PERFORM Event Display: Patient Education/Instruction Authored Date: [id number] Inpatient Adult Discharge Instructions [address] [address] Name: MELISSA PORTER : 1965 Visit: 12/30/2022 20:32:00 Current Date: 01/05/2023 10:26 Account: [id number] Inpatient Adult Discharge Instructions We would like to thank you for allowing us to assist you with your healthcare needs. The following includes patient education materials and information regarding your injury/illness. Our entire staffstrives to provide an excellent experience for our patients and their families. PLEASE ENSURE YOU FOLLOW-UP PER THE INSTRUCTIONS BELOW! ?? YOUR OPINION IS IMPORTANT TO US! Please complete the survey you may receive by mail or email. Your feedback will be used to make improvements to the healthcare experiences of our patients and their families. Surveys are administered by [employer] ?? If further treatment with your primary care physician or another doctor is recommended, it is important for you to keep the appointment. Call your primary care physician or return to the Emergency Department immediately if your condition worsens, fails to improve, or new symptoms develop. If you need to find a doctor, you can call [facility] [employer] [facility] for a referral at [phone] or toll free at [phone] or log in to [email or web address].. ?? You can view and manage your care through the patient portal or by using a health care citlaly of your choosing. [employer] is a website that allows you to securely view your medical information including your hospital discharge summary, office visit summaries, medications and follow-up visits. You can also request appointments, renew medications, and request access to your medical information using a health care citlaly of your choosing, or just ask a question. You can enroll at [email or web address] or register during your next office visit. You have been discharged from [facility], Patient Care Unit: S3. If you have any questions regarding these instructions after you leave, please call us and we will be happy to assist you. [facility] Your Care Team Attending Physician Lindsey Bonilla DO Discharging Providers Serg Bowser MD Reason for Admission Pt intoxicated, fell onto right shoulder. ??EMS did not note any deformity, pt refused c-collar. Your Diagnosis Syncope Withdrawal symptoms, alcohol Tests Performed Below is a partial list of the tests performed during your hospitalization. You may have had other tests and procedures not included in this list. Please discuss all test results with your provider. Alcohol Level Basic Metabolic Panel CBC CBC w/ Differential Comprehensive Metabolic Panel COVID-19 (Novel Coronavirus), Rapid PCR FREE T4 GLUCOSE POC High??Sensitivity??Troponin T Magnesium Level Mg Level Phosphorus Level ProBNP Sodium Urine Troponin T, High Sensitivity TSH with T4 Reflex (Adults Only) Urinalysis w/hold for Urine Culture Urine Osmolality CT Cervical Spine W/O Contrast CT Head/Brain W/O Contrast XR Chest 2 Views Frontal and Lat XR Shoulder Min 2 Views Right Primary Care Provider Navjot BELTRÁN , Maximo Advance Directive Health Care Proxy on File Yes - Health Care Proxy Discharge Vitals Temperature: 98.1 DegF Height: 180 cm Pulse Rate:??102 bpm??High Weight: 65.2 kg Respiratory Rate: 16 br/min Body Mass Index: 20.09 kg/m2 Systolic Blood Pressure: 120 mm Hg Body surface area: 1.8 Diastolic Blood Pressure: 68 mm Hg ?? Oxygen Saturation: 98 % ?? Studies Pending All tests and labs ordered during this hospital stay have been completed unless listed below. Please discuss all pending results with your provider listed above in these instructions. ?? No incomplete studies found What to do next Instructions From Your Doctor DIAGNOSIS: Alcohol withdrawal, acute rib fractures, orthostatic hypotension ? Your specific PATIENT CARE INSTRUCTIONS (what to do / when to return): [] continue to drink plenty of fluids. Try to drink at least 16-24oz of fluids with electrolytes such as gatorade or powerade [] If you are feeling dizzy, sit down in a safe space as quickly as possible. [] Continue as needed oxycodone for pain control from rib fractures and neck injury, please call your PCP for further pain control measures if required [] Take the higher dose gabapentin three times a day at home [] Continue to use incentive spirometer at home to help keep your lungs well expanded [] Return to the ED if you develop a fever T >101F for 2-3 days, shortness of breath, lethargy or confusion as these could be signs of a lung infection [] Recommend continuing to avoid alcohol use to reduce risk for complications and falls that can worsen your injuries. ? MEDICATIONS (what medications you should start (or stop) taking): [] Oxycodone 2.5mg q6hr PRN for severe pain [] Gabapentin increased to 600mg [] Pyridoxine [] Senna 8.6 daily at bedtime. Discharge Orders You Need to Schedule the Following Appointments Follow Up with??Navjot BELTRÁN , Maximo When:??Within 3-5 day: call to discuss follow up visit Why: Follow up pain control for rib fractures, dizziness. Where: [address] [place] [id number]- Discharge Medications MELISSA PORTER :1965 Visit Date:12/30/2022 Medications: Please continue your medications until treatment is completed or stopped by your provider. Medications not listed below should be discontinued. Discuss any questions related to medications with your provider. What How Much When Instructions Next Dose New Oxycodone (oxyCODONE 5 mg oral tablet) 2.5 Milligram Oral Every 6 hours as needed for Pain , Severe Pickup at [place] [address] as needed New Pyridoxine (pyridoxine 50 mg oral tablet) 50 Milligram Oral Daily Pickup at [place] [address] 9am 01/06 New Senna (Senna 8.6 mg oral tablet) 1 tab(s) Oral Daily at Bedtime Pickup at [place] [address] 9pm 01/05 Changed Gabapentin (gabapentin 600 mg oral tablet) 1 tab(s) Oral 3 times a day Pickup at [place] [address] 01/05 Unchanged Acamprosate (acamprosate 333 mg oral delayed release tablet) 2 tab(s) Oral 3 times a day TAKE 2 TABLETS BY MOUTH THREE TIMES DAILY ?? m 01/06 Unchanged Acetaminophen (acetaminophen 325 mg oral tablet) 650 Milligram Oral Every 4 hours as needed for Pain , Mild Temperature Greater than 100.5 ?? as needed Unchanged apixaban (apixaban Starter Pack 5 mg oral tablet) 2 tab(s) Oral Twice a day Duration: 7 Days followed by 1 tablet by mouth twice daily for 23 days ?? 901/05 Unchanged Duloxetine (duloxetine 30 mg oral enteric coated capsule) 1 capsule Oral Twice a day 01/05 Unchanged Ferrous Sulfate (ferrous sulfate 325 mg oral enteric coated tablet) 325 Milligram Oral 3 times a day Duration: 30 Days 3p01/05 Unchanged Folic Acid (folic acid 1 mg oral tablet) 1 tab(s) Oral Daily 01/06 Unchanged Lidocaine Topical (Lidoderm 5% film) 1 patch Topically Daily Duration: 14 Days apply 1 patch to right ribcage remove patches after 12 hours ?? 01/06 Unchanged Lisinopril (lisinopril 10 mg oral tablet) 1 tab(s) Oral Daily 01/06 Unchanged Melatonin (Melatonin 5 mg oral tablet) 1 tab(s) Oral Daily at Bedtime as needed for for insomnia as needed Unchanged Multivitamin (multivitamin Multiple Vitamins oral tablet) 1 tab(s) Oral Daily 01/06 Unchanged Pantoprazole (pantoprazole 40 mg oral delayed release tablet) 1 tab(s) Oral Twice a day 01/05 Unchanged Thiamine (thiamine 100 mg oral tablet) 1 tab(s) Oral Daily 01/06 [facility] Information [facility]: [address], [place] [id number] [phone] ?? What How Much When Comments Stop Taking Hydromorphone (Dilaudid 2 mg oral tablet) 1 tab(s) Oral Every 6 hours as needed for Pain , Severe Test Results Below is a partial list of the most recent Laboratory test results done prior to this discharge. You may have had other tests and procedures not included in this list. Please discuss all test resultswith your provider. Est Creatinine Clearance - 92.68 mL/min (01/05/2023) Alcohol Level (12/30/2022) ???Ethanol, Serum or Plasma - 256 mg/dL Basic Metabolic Panel (01/05/2023) ???Sodium - 136 mmol/L???Potassium - 4.6 mmol/L???Chloride - 100 mmol/L???Bicarbonate Level - 24 mmol/L???Anion Gap - 12???Glucose Level - 103 mg/dL???BUN - 16 mg/dL???Creatinine-Blood - 0.8 mg/dL???Estimated GFR Creatinine - 101 ML/MIN/1.73 M2???Calcium - 9.1 mg/dL CBC (01/05/2023) ???WBC - 5.7 k/mm3???RBC - 3.40 m/mm3???Hgb - 8.9 Gm/dL???Hct - 28.9 %???MCV - 85.0 femtoliters???MCH - 26.2 pg???MCHC - 30.8 g/dL???Platelet Count - 327 k/mm3???RDW-SD - 45.0 femtoliters???MPV - 9.1femtoliters???Nucleated RBC (Automated) - 0.0 #/100 WBC'S???Abs. NRBC - 0.0 k/mm3 CBC w/ Differential (12/30/2022) ???WBC - 11.1 k/mm3???RBC - 3.75 m/mm3???Hgb - 10.1 Gm/dL???Hct - 31.9 %???MCV - 85.1 femtoliters???MCH - 26.9 pg???MCHC - 31.7 g/dL???Platelet Count - 585 k/mm3???RDW-SD - 45.7 femtoliters???MPV - 8.6 femtoliters???Nucleated RBC (Automated) - 0.0 #/100 WBC'S???Abs. NRBC - 0.0 k/mm3???Abs. Neut - 6.9 k/mm3???Abs. Lymph - 3.6 k/mm3???Abs. [place] - 0.4 k/mm3???Abs. Eo - 0.1 k/mm3???Abs. Baso - 0.1 k/mm3???Neut % - 62.0 %???Lymph % - 32.3 %???[place] % - 3.4 %???Eos % - 0.5 %???Baso % - 1.1 %???Imm Gran - 0.7 %???Abs. Imm Gran - 0.1 k/mm3 Comprehensive Metabolic Panel (12/30/2022) ???Sodium - 139 mmol/L???Potassium - 4.2 mmol/L???Chloride - 100 mmol/L???Bicarbonate Level - 24 mmol/L???Anion Gap - 15???Glucose Level - 67 mg/dL???BUN - 12 mg/dL???Creatinine-Blood - 0.7 mg/dL???Estimated GFR Creatinine - 108 ML/MIN/1.73 M2???Calcium - 9.2 mg/dL???Protein, Total - 6.7 Gm/dL???Alb umin - 4.1 Gm/dL???AG Ratio - 1.6???Alkaline Phosphatase - 135 units/L???AST (SGOT) - 24 units/L???ALT (SGPT) - 11 units/L???Bilirubin, Total - 0.2 mg/dL COVID-19 (Novel Coronavirus), Rapid PCR (12/30/2022) ???COVID-19 by RT-PCR - NEGATIVE FREE T4 (12/30/2022) ???Free T4 - 1.33 ng/dL GLUCOSE POC (12/30/2022) ???Glucose, POC - 197 mg/dL High??Sensitivity??Troponin T (12/30/2022) ???High Sensitivity Troponin (HSTnT) - 28 ng/L Magnesium Level (01/03/2023) ???Magnesium - 1.9 mg/dL Mg Level (12/31/2022) ???Magnesium - 1.8 mg/dL Phosphorus Level (01/03/2023) ???Phosphorus - 3.2 mg/dL ProBNP (12/30/2022) ???Nt-Probnp - 287 pg/mL Sodium Urine (01/03/2023) ???Sodium, Urine Random - 61 mmol/L Troponin T, High Sensitivity (12/30/2022) ???High Sensitivity Troponin (HSTnT) - 24 ng/L TSH with T4 Reflex (Adults Only) (12/30/2022) ???TSH - 0.14 uIU/mL Urinalysis w/hold for Urine Culture (12/30/2022) ???Appear/Color, Urine - COLORLESS???Specific [place], Urine - 1.007???pH, Urine - 6.0???Albumin, Urine - NEGATIVE???Glucose, Urine - NEGATIVE???Ketones, Urine - NEGATIVE???Bilirubin, Urine - NEGATIVE???Hemoglobin, Urine - NEGATIVE???Nitrite, Urine - NEGATIVE???Leukocyte, Urine - NEGATIVE???Urobilin ogen - NORMAL???WBC's, Urine - 1 /HPF???RBC's, Urine - 1 /HPF???Hold Urine Culture - Testing available 48 hours from time of collection. Urine Osmolality (01/03/2023) ???Osmolality, Urine Random - 327 mOsm/kg Allergies (NKA means No Known Allergies) Bee Stings Problems Active Problems??(15) Alcohol abuse?? Aortic aneurysm?? Cardiomyopathy - EF 40% on 01/19?? Cellulitis?? Closed Fracture of Lumbar Vertebra without Mention of Spinal Cord Injury?? Esophageal reflux (GERD)?? Fracture of ribs, multiple?? GERD - Gastro-esophageal reflux disease?? Hand fracture, left?? Hypertension?? Low back pain - failed back syndrome?? Pulmonary embolism?? Right hip pain?? Right knee pain?? Substance abuse - narcotics?? Education Materials Below is the list of Educational Leaflet Providered with your Discharge Instructions. What Is Syncope??? Rib Fracture?? Rib Fracture (Broken Rib)?? Treating Syncope: Prevention?? Social Drinking vs. Problem Drinking?? Alcohol Withdrawal: What to Expect?? Valuables and Belongings I fully understand and agree that [facility] accepts no responsibility for all my personal property including clothing, toilet articles, radios, jewelry, dentures, hearing aids, rings, money, or any other property that is in my possession or is brought to me after admission. I understand certain valuables may be placed in a hospital safe for a short period of time. I understand that the hospital is not liable for loss or damage due to accident, fire, or other natural occurrence while said property is in the safe. I accept full responsibility for any personal property that I keep with me, and will not hold the hospital responsible in case of loss or disappearance. I acknowledge that i have been encouraged to send valuables and belongings home. ?? Review of Valuable and Belonging List: With patient Date for Pt to Sign Valuables/Belongings: 01/05/23 09:54:00 ?? Other Discharge Information ? Case Management Discharge Plan?? Discharge Plan?? Discharge Agency Information?? Discharge Level of Care at Discharge: Homehealth/VNA Name of Agency #1: [facility] Discharge Rx Program: Discharge Prescription Program Agency Worship Director #1: [phone] Discharge VNA/Hospice/Home Care: [facility] [phone] Service Start Date and Time #1: 01/06/23 12:00:00 ?? Service Categories #1: Physical Therapy, Custodial ?? Service Comments #1: You are being dicharged today with [facility]. They will see you at your [facility] house, and call you to set up a time to meet. They will be calling your [facility] phone number.If you don't hear from them by tomorrow afternoon, call them at [phone] ?? Pulmonary Rehab Status?? Pulmonary Rehab Discharge Status?? Respiratory Rate: 16 br/min ? Common Emergency Awareness Tips IS IT A STROKE? Act FAST and Check for these signs: FACE Does the face look uneven? ARM Does one arm drift down? SPEECH Does their speech sound strange? TIME Call at any sign of stroke ?? Heart Attack Signs Chest discomfort: Most heart attacks involve discomfort in the center of the chest and lasts more than a few minutes, or goes away and comes back. It can feel like uncomfortable pressure, squeezing, fullness or pain. Discomfort in upper body: Symptoms can include pain or discomfort in one or both arms, back, neck, jaw or stomach. Shortness of breath: With or without discomfort. Other signs: Breaking out in a cold sweat, nausea, or lightheaded. Remember, MINUTES DO MATTER. If you experience any of these heart attack warning signs, call to get immediate medical attention! ?? Smoking can increase your chances of developing chronic health problems and can cause harmful effects to other family members in your house. If you smoke, you are strongly encouraged to quit. Please call [facility] [employer] Link at [phone] or 3-769-752Qinqin.com ([phone]) or log in to [email or web address] for referrals to smoking cessation programs. ?? 988 Suicide & Crisis Lifeline is available 01/02 if you or someone you know needs to find a reason to keep living. By calling 348 you'll be connected to a skilled, trained counselor at a crisis center in your area. INPATIENT DISCHARGE INSTRUCTIONS SIGNATURE MELISSA HASSAN Location:[facility] Registration Date and Time:12/30/2022 20:32 EDT Primary Care Physician: Maximo Morfin MD, Attending Physician: Lindsey Bonilla DO, I MELISSA PORTER, have received the above patient education materials/instructions and have verbalized understanding. If ambulance or transport services are being used I further acknowledge being given a choice of service. ?? If you need to contact me, please call me at this number: . Patient/Vocational Rehabilitation Administrator Name: Patient/Vocational Rehabilitation Administrator Signature: Relationship to Patient: Witness Name/Signature: Date: * Velia Shepherd RN: PERFORM Event Display: Patient Education Leaflets Authored Date: [id number] What Is Syncope? ?? 98462 What Is Syncope? Syncope is also known as fainting or a blackout. It's an abrupt and short-term loss of consciousness and motor tone. It's often caused by a sudden drop in blood flow to the brain or a lack of oxygen to the brain. It's then followed by complete and often rapid spontaneous recovery. The heart pumps blood nonstop to the brain and the rest of the body. Understanding heart rate and blood pressure changes Your brain and body need a steady flow of oxygen-rich blood. Your heart rate and blood pressure change to keep that flow steady throughout all your activities. ??? The heart makes electrical signals that move through it on pathways. These signals set the heart rate. They also tell the heart when topump blood. ??? In response to your body???s needs, your brain may also trigger changes in your heart rate and blood pressure. Sensors in the body detect the amount of blood flow going to the brain and other parts of the body. If these sensors detect low blood flow, they signal the body to increasethe amount of fluid in the blood vessels??and increase the heart rate to provide more circulation. ??? The blood leaving the heart with each contraction supplies oxygen and nutrients as it flows in your brain. ?? Warning signs Syncope often happens suddenly. Warning signs include: ??? Dimmed, blackened, or tunnel vision ??? Lightheadedness ??? Sleepiness ??? Rapid heartbeat Some people may also feel nauseated or sweaty. But you may have no warning signs at all. After syncope, you get better quickly. But you may feel tired. Don't drive if you are having warning signs that you may faint. ?? Is it serious? Syncope is a common problem with many possible causes. Often these causes are not serious. For instance, syncope can be caused by standing for too long or sitting up too fast. In some cases, you may never faint again. But if you have syncope with a heart problem, it can be a warning sign of a more serious problem. For this reason, your healthcare provider may order several tests to look at heart function and rhythm. If you have had syncope, talk with your healthcare provider. In older adults, syncope may be a sign that a heart attack has happened. Don't delay seeking treatment. Even if the cause of syncope is not serious, there is a risk of injury from falling when you lose consciousness. When possible, finding a cause can reduce this risk. ?? Last Reviewed Date: 2021 ?? [employer]. All rights reserved. This information is not intended as a substitute for professional medical care. Always follow your healthcare professional's instructions. ?? * Serg Bowser MD: PERFORM Event Display: Patient Education Leaflets Authored Date: [id number] Rib Fracture ?? [id number] Rib Fracture You broke 1 or more ribs. This is called a rib fracture. Rib fractures don't need a cast like otherbones. They will heal by themselves in about 4 to 6 weeks. The first 3 to 4 weeks will be the most painful. During this time??deep breathing, coughing, or changing position from sitting to lying down, may cause the broken ends to move slightly. Home care ??? Rest. Don't do any heavy lifting or strenuous exertion until the pain goes away. ??? It hurts to breathe when you have a broken rib. This puts you at risk of getting pneumonia from poorairflow through your lungs. To prevent this: o Take??a few??very deep breaths??once an hour while you're awake. Breathe out??through pursed lips as if you are blowing up a balloon.??If possible, actually blow up a balloon or a rubber glove.??This exercise builds up pressure inside the lung and prevents collapse of the small air sacs of the lung. This exercise may cause some pain at the site of injury. This is normal. o You may have gotten a breathing exercise device called an incentive spirometer. Use it at least 4 times a day, or as directed. ??? Apply an ice pack over the injured area for 15 to 20 minutes every??1 to 2??hours. Do this for??the first??24 to 48 hours. To make an ice pack, put ice cubes in a plastic bag that seals at the top. Wrap the bag in a clean, thin towel or cloth. Never put ice or an ice pack directly on your skin. Keep using??ice packs??as needed to ease pain andswelling. ??? You may use??aiwa-uav-[id number] pain medicine??to control pain, unless another pain medicine was prescribed.??If you have chronic liver or kidney disease or ever had a stomach ulcer, gastrointestinal??bleeding, or take a blood thinner, talk with your healthcare provider??before??using these medicines. ??? If your pain is not controlled, contact your provider. Sometimes a stronger painmedicine may be needed. A nerve block can be done in case of severe pain. It will numb the nerve between the ribs. ?? Follow-up care Follow up with your healthcare provider, or as advised. In rare cases, a broken rib will cause complications in the first few days that may not be clearly seen during your initial exam. This can include collapsed lung, bleeding around the lung or into the belly (abdomen), or pneumonia. So watch forthe signs below. If X-rays were taken,??you will be told of any new findings that may affect your care. ?? Call 911 Call 911 if you have: ??? Dizziness, weakness or fainting ??? Shortness of breath with or without chest discomfort ??? New or worsening abdominal pain ??? Discomfort in other areas of your upper bodysuch as your shoulders, jaw, neck, or arms ?? When to get medical advice Call your healthcare provider right away if any of these occur: ??? Increasing chest pain with breathing ??? Fever of 100.4??F (38??C) or above, or as directed by your provider ??? Chills ??? Congested cough, nausea, or vomiting ?? Last Reviewed Date: 2021 ?? 5420-2424 [employer]. All rights reserved. This information is not intended as a substitute for professional medical care. Always follow your healthcare professional's instructions. ?? * Serg Bowser MD: PERFORM Event Display: Patient Education Leaflets Authored Date: [id number] Rib Fracture (Broken Rib) ?? 07008 Rib Fracture (Broken Rib) Your ribs are curved bones in your chest. They help protect your lungs and expand and contract whenyou breathe. Children's ribs bend easily and can often withstand a blow or fall. But adult ribs aremore likely to break (fracture) under stress. Even coughing or a hard sneeze can fracture a rib. When to go to the emergency room (ER) Although they can be painful, most rib fractures aren't serious. But they often make it hard to cough or breathe deeply. Get to the ER or call 911 right away if you have: ??? Trouble breathing ??? Nausea, vomiting, or stomach pain with a sore or bruised rib ??? Pain that worsens over time ??? An injury to the chest or stomach ?? What to expect in the ER Here's what will happen in the ER:? A healthcare provider will ask about your injury and examine you carefully. ??? An X-ray of your chest will likely be taken to show any major damage to ribs and lungs. But ribs can have small breaks that don't show up on X-rays, even though they still hurt. In some cases, a CT scan may be done. ??? You may be given??medicine to ease your discomfort. ??? Inrare cases, rib fractures can cause a lung to collapse or lead to bleeding in the chest. In these cases, a tube will be inserted into the chest to reinflate the lung or drain the blood. ?? Follow-up You are likely to heal in 6 to 8 weeks. Most rib fractures heal on their own with no lasting effects. Call your??healthcare provider??right away if you notice any of these symptoms: ??? Increased chest pain ??? Shortness of breath ??? Fever of 100.4??F (38??C) or above, or as directed by your provider ??? Chills ??? Coughing up blood ?? Last Reviewed Date: 2021 ?? 4252-4305 [employer]. All rights reserved. This information is not intended as a substitute for professional medical care. Always follow your healthcare professional's instructions. ?? * Isabel Singer RN: PERFORM Event Display: Discharge/Transfer Note Hospital Authored Date: [id number] Discharge Planning Nursing Entered On: 01/04/2023 8:40 EDT Performed On: 01/04/2023 8:40 EDT by Isabel Singer RN Discharge Planning Nursing Anticipated discharge : Unable to determine Isabel Singer RN - 01/04/2023 8:40 EDT Patient Care team information Care Team Personnel Name: Unique Dubon RN Position: [facility] RN Member Role: Primary Care Nurse Name: Maximo Morfin MD Position: [facility] Outreach Member Role: PCP Address: Address: [address] [place] [id number] Name: Kadi Oliver RN Position: [facility] AMB Nurse Member Role: Primary Care Nurse Name: Mary Roberson RN Position: [facility] SN RN Member Role: Primary Care Nurse Name: Daniel Rodriguez RN Position: [facility] RN Member Role: Primary Care Nurse Name: Liz Sweet RN Position: [facility] RN Member Role: Primary Care Nurse Name: Dev De León RN Position: [facility] RN Member Role: Primary Care Nurse Name: Alexa Mitchell LPN Position: [facility] RN Member Role: Primary Care Nurse Name: Mary Arceo RN Position: [facility] RN Member Role: Primary Care Nurse Name: Toyin Contreras RN Position: [facility] Onco RN Member Role: Primary Care Nurse Name: Tierra Juan RN Position: [facility] SN RN Member Role: Primary Care Nurse Name: Veena Arthur RN Position: [facility] RN Member Role: Primary Care Nurse Name: Toshia Arce RN Position: [facility] RN Member Role: Primary Care Nurse Name: Ashlyn Kenney Position: [facility] AMB MA Member Role: Primary Care Nurse Name: Sameera Chappell RN Position: [facility] RN Member Role: Primary Care Nurse Name: Velia Shepherd RN Position: [facility] RN Member Role: Primary Care Nurse Name: Shelby Boothe RN Position: [facility] PCO w/OE and EZ Script Member Role: Primary Care Nurse Name: Francoise Whaley RN Position: [facility] Hospital Roll Hand Member Role: Primary Care Nurse Name: Elizabeth Chung RN Position: [facility] RN Member Role: Primary Care Nurse Name: Ron ANTUNEZ Attending Position: [facility] ED Medicine MD Name: Anastasia Doonhue RN Position: [facility] ED RN W/OE and Tasks Member Role: Patient Care Provider Name: Raisa Farias Position: [facility] ED OA Charge Member Role: ED Associate Name: Samantha Mckoy Position: [facility] ED TA [facility] Care Team Related Persons Name: OPAL AMBRIZ Address: home [address] [place] [id number] Name: QUAN PORTER Address: home [address] [place] [address] Name: AMOS PORTER Address: [place] [address]
--- OUTSIDE RECORDS SUMMARY | 2023-05-03 21:44 | XMS_ITS | Continuity of Care Document ---
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 being given a choice of service. ?? If you need to contact me, please call me at this number: . Patient/Certified Phlebotomy Technician Name: Patient/Certified Phlebotomy Technician Signature: Relationship to Patient: Witness Name/Signature: Date: * Laura Tellez RN: PERFORM Event Display: Patient Education Leaflets Authored Date: [id number] Rib Fracture ?? [id number] Rib Fracture You broke 1 or more [...] you are blowing up a balloon.??If possible, actua lly blow up a balloon or a rubber [...] Keep using??ice packs??as needed to ease pain and swelling. ??? You may use??llim-vib-saxffqk pain medicine??to control pain, unless another pain [...] vomiting ?? Last Reviewed Date: 2021 ?? [id number] [employer]. All rights reserved. This information is not intended as a substitute for professional medical care. Always follow your healthcare professional's instructions. ?? * Laura Tellez RN: PERFORM Event Display: Patient Education Leaflets Authored Date: [id number] Rib Fracture (Broken Rib) ?? 56013 Rib Fracture (Broken Rib) Your ribs are [...] be given??medicine to ease your discomfort. ??? In rare cases, rib fractures can cause a lung [...] blood ?? Last Reviewed Date: 2021 ?? 0581-3070 [employer]. All rights reserved. This information is not intended as a substitute for professional medical care. Always follow your healthcare professional's instructions. ?? Patient Care team information Care Team Personnel Name: Unique Dubon RN Position: [facility] RN Member Role: Primary Care Nurse Name: Maximo Morfin MD Position: [facility] Outreach Member Role: PCP Address: Address: [address] [place] [address] Name: Kadi Oliver RN Position: [facility] BEL Nurse Member Role: Primary Care Nurse Name: Mary Roberson RN Position: [facility] SN RN Member Role: Primary Care Nurse Name: Daniel Rodriguez RN Position: [facility] RN Member Role: Primary Care Nurse Name: Liz Sweet RN Position: [facility] RN Member Role: Primary Care Nurse Name: Dev De León RN Position: [facility] RN Member Role: Primary Care Nurse Name: Toyin Contreras RN Position: [facility] Onco RN Member Role: Primary Care Nurse Name: Tierra Juan RN Position: [facility] SN RN Member Role: Primary Care Nurse Name: Veena Arthur RN Position: [facility] RN Member Role: Primary Care Nurse Name: Toshia Arce RN Position: [facility] RN Member Role: Primary Care Nurse Name: Ashlyn Kenney Position: [facility] AMB MA Member Role: Primary Care Nurse Name: Sameera Chappell RN Position: [facility] RN Member Role: Primary Care Nurse Name: Velia Shepherd RN Position: [facility] RN Member Role: Primary Care Nurse Name: Shelby Boothe RN Position: [facility] PCO w/OE and EZ Script Member Role: Primary Care Nurse Name: Francoise Whaley RN Position: [facility] Hospital Savings Teller Member Role: Primary Care Nurse Name: Elizabeth Chung RN Position: [facility] RN Member Role: Primary Care Nurse Name: Meghann Montano Position: [facility] Associate Professional Member Role: ED Physician Forestry Consultant Address: Address: [address] [place] [address]- Name: Sylvia Stone LPN Position: [facility] ED RN W/OE and Tasks Member Role: Patient Care Provider Name: Radha Woodard Position: [facility] ED TA [facility] Member Role: Pharmacy Clerk Name: Misael Celis MD Position: [facility] ED Medicine MD Address: Address: [address] [place] [address]- Care Team Related Persons Name: OPAL AMBRIZ Address: home [address] [place] [id number] Name: QUAN LOMBARDO Address: home [address] [place] [address] Name: AMOS LOMBARDO Address: [place] [address]
--- OUTSIDE RECORDS SUMMARY | 2023-05-03 21:44 | XMS_ITS | Continuity of Care Document ---
Author Name Unknown Organization [facility] ter Address [address] [place] [address]- Care Team Providers Care Beader Name Role Phone Not on Staff, PCP Primary Care Physician Unavail able Encounter [facility] Date(s): 11/30/22 - 12/01/[address] [address]- Discharge Disposition: A-D/C Walkout Attending Physician: Not on Staff, Attending MD Admitting Physician: Not on Staff, Admitting MD Referring Physician: Not on Staff, Referring MD Allergies, Adverse Reactions, Alerts Substance Reaction Severity Status Bee Stings Active Immunizations Given and Recorded Vaccine Date Status Refusal Reason influenza virus vaccine, inactivated 05/15/22 Marcos rded influenza virus vaccine, inactivated 04/15/22 Marcos rded influenza virus vaccine, inactivated 09/10/21 Marcos rded influenza virus vaccine, inactivated 05/10/17 Marcos rded influenza virus vaccine, inactivated 04/27/16 Marcos rded [id number] 12y+ bivalent booster vax 05/15/22 Recorded SARS-CoV-2 mRNA ([id number]) vax 11/19/21 Recorded tetanus/diphtheria/pertussis, acel(Tdap) 08/05/21 Recorded [...] DAILY Start Date: 10/30/22 Status: Ordered acetaminophen 500 mg oral tablet 2 tablet = 1,000 mg, By Mouth, Every 6 hours, 0 Refills, Maintenance, 10/30/22 16:53:00 EDT, Partial fill upon patient request if the prescription is for a schedule II opioid drug. Start Date: 10/30/22 Status: Ordered apixaban Starter Pack 5 mg oral tablet 2 tablet = 10 mg, By Mouth, 2 times a day, followed by 1 tablet by mouth twice daily for 23 days, #74 tablet, 0 Refills, Maintenance, 11/03/22 9:55:00 EDT, [facility], Partial fill upon patient request if [...] opioid drug. Start Date: 08/08/22 Status: Ordered folic acid 1 mg oral [...] opioid drug. Start Date: 08/08/22 Status: Ordered lisinopril 10 mg oral tablet [...] 0 Refills, Maintenance, 10/15/20 10:30:00 EDT, Tablet, [facility], Partial fill upon patient request if the prescription is for a schedule II opioid drug., 1 tablet By Mouth Daily, 180, cm, ... Start Date: 10/15/20 Status: Ordered Nicoderm C-Q 7 mg/24 hr transdermal film, extended release 1 patch, Topically, Daily, for 30 days, # 30 patch, 0 Refills, Acute 12/08/22 8:26:00 EDT, :26:00 EDT, Patch, [facility], Partial fill upon patient request if the prescription is for a schedule II opioid drug., 180, cm, 11/08/22 7:... Start Date: 11/08/22 Stop Date: 12/08/22 Status: Ordered pantoprazole 40 mg oral delayed [...] on 01/19 Confirmed 02/03/11 Active Cellulitis Confirmed 2/24/09 Active Closed Fracture of Lumbar Vertebra without [...] embolism 2 Confirmed Active 1aortic arc aneurysm Vital Signs Most recent to oldest [Reference Range]: 1 2 3 Height 183 cm (12/01/22 1:45 AM) Weight 75 kg (12/01/22 1:45 AM) Oxygen Saturation [94-100 %] 100 % (12/01/22 8:44 AM) 99 % (12/01/22 6:45 AM) 99 % (12/01/22 4:29 AM) Pulse Rate [55-90 bpm] 75 bpm (12/01/22 8:44 AM) 78 bpm (12/01/22 6:45 AM) 77 bpm (12/01/22 4:29 AM) Body Mass Index [18.5-24.99 kg/m2] 22.4 kg/m2 (12/01/22 1:45 AM) Blood Pressure [90-138/55-84 mm Hg] 130/78mm Hg (12/01/22 8:44 AM) 166/84mm Hg *H* (12/01/22 6:45 AM) 131/74mm Hg (12/01/22 4:29 AM) Respiratory Rate [16-30 br/min] 16 br/min (12/01/22 1:45 AM) Temperature [96.8-100.4 DegF] 97.6 DegF (12/01/22 8:44 AM) 97.7 DegF (12/01/22 6:45 AM) 98.1 DegF (12/01/22 4:29 AM) Mode of Delivery (Oxygen) Room air (12/01/22 8:44 AM) Room air (12/01/22 6:45 AM) Room air (12/01/22 4:29 AM) Blood pressure sites Arm, right (12/01/22 8:44 AM) Arm, left (12/01/22 6:45 AM) Arm, right (12/01/22 4:29 AM) Temperature Route Oral (12/01/22 8:44 AM) Oral (12/01/22 6:45 AM) Oral (12/01/22 4:29 AM) Dry Weight 75 kg (12/01/22 1:45 AM) Weight Obtained Via Patient/family state d (12/01/22 1:45 AM) Dry Weight Obtained Via Patient/family s tated (12/01/22 1:45 AM) Social History Social History Type Response Smoking Status Current every day sm oker; Type: Cigarettes; Other: 6 cigarettes per day; entered on: 09/27/15 Sex EKG study * Event Display: EKG Authored Date: [id number] Patient Care team information Care Team Personnel Name: Unique Dubon RN Position: [facility] RN Member Role: Primary Care Nurse Name: Kadi Oliver RN Position: [facility] AMB Nurse Member Role: Primary Care Nurse Name: Mary Roberson RN Position: [facility] SN RN Member Role: Primary Care Nurse Name: Daniel Rodriguez RN Position: [facility] RN Member Role: Primary Care Nurse Name: Liz Sweet RN Position: [facility] RN Member Role: Primary Care Nurse Name: Toyin Contreras RN Position: [facility] Onco RN Member Role: Primary Care Nurse Name: Not on Staff, PCP Position: [facility] Physician (General Medicine) Member Role: PCP Name: Tierra Juan RN Position: [facility] SN RN Member Role: Primary Care Nurse Name: Veena Arthur RN Position: [facility] RN Member Role: Primary Care Nurse Name: Toshia Arce RN Position: [facility] RN Member Role: Primary Care Nurse Name: Velia Shepherd RN Position: [facility] RN Member Role: Primary Care Nurse Name: Shelby Boothe RN Position: [facility] PCO w/OE and EZ Script Member Role: Primary Care Nurse Name: Francoise Whaley RN Position: [facility] Hospital Industrial Economics Teacher Member Role: Primary Care Nurse Name: Elizabeth Chung RN Position: [facility] RN Member Role: Primary Care Nurse Care Team Related Persons Name: KATINA OPAL Address: [address] [address] Name: QUAN LOMBARDO Name: AMOS LOMBARDO Address: [place] [address]
--- OUTSIDE RECORDS SUMMARY | 2023-05-03 21:44 | XMS_ITS | Continuity of Care Document ---
Author Name Unknown Organization [facility] ter Address [address] [place] [id number]- Care Team Providers Care Workers Compensation Adjuster Name Role Phone Maximo Morfin MD Primary Care Physician [phone] [place] [facility]15[place]23 - 01/15/[address] [address]- Discharge Disposition: A-D/C Walkout Attending Physician: Not [...] influenza virus vaccine, inactivated 04/27/16 Marcos rded [id number] 12y+ bivalent booster vax 05/15/22 Recorded SARS-CoV-2 mRNA ([id number]-[id number]) vax 11/19/21 Recorded tetanus/diphtheria/pertussis, acel(Tdap) 08/05/21 Recorded [...] 12/27/22 10:16:00 EDT, Route to Pharmacy Electronically, [facility], Partial fill upo... Start Date: 12/27/22 Stop Date: 02/04/23 Status: Ordered apixaban Starter Pack 5 mg oral tablet 2 tablet = 10 mg, By Mouth, 2 times a day, followed by 1 tablet by mouth twice daily for 23 days, #74 tablet, 0 Refills, Maintenance, 11/03/22 9:55:00 EDT, [facility], Partial fill upon patient [...] 12/21/22 14:06:00 EDT, Route to Pharmacy Electronically, [facility], Partial fill upon patient [...] drug. Start Date: 10/30/22 Status: Ordered gabapentin 600 mg oral tablet 1 tablet = 600 mg, By Mouth, 3 times a day, # 90 tablet, 0 Refills, Maintenance, 01/05/23 9:31:00 EDT, Tablet, [facility], Partial fill upon patient request if the prescription is for aschedule II opioid drug., 180, cm, 01/05/23 6:33:00... Start Date: 01/05/23 Status: Ordered lisinopril 10 mg oral tablet [...] 0 Refills, Maintenance, 10/15/20 10:30:00 EDT, Tablet, [facility], Partial fill upon patient request if [...] 01/05/23 9:00:00 EDT, Route to Pharmacy Electronically, [facility], Partial fill upon patient request if theprescription is for a schedule II opioid drug., 180... Start Date: 01/05/23 Status: Ordered Senna 8.6 mg oral tablet 8.6 mg, 1, tablet, By Mouth, Daily at bedtime, # 30 tablet, Refills 0, Tot. Refills 0, Maintenance,01/05/23 8:59:00 EDT, Route to Pharmacy Electronically, [facility], Partial fill uponpatient request if the [...] Most recent to oldest [Reference Range]: 1 Height 180 cm (01/15/23 11:05 AM) Oxygen Saturation [94-100 %] 93 % *L* (01/15/23 11:05 AM) Pulse Rate [55-90 bpm] 82 bpm (01/15/23 11:05 AM) Blood Pressure [90-138/55-84 mm Hg] 110/ 63mm Hg (01/15/23 11:05 AM) Temperature [96.8-100.4 DegF] 97.5 DegF (01/15/23 11:05 AM) Mode of Delivery (Oxygen) Room air (01/15/23 11:05 AM) Blood pressure sites Arm, left (01/15/23 11:05 AM) Temperature Route Oral (01/15/23 11:05 AM) Dry Weight 73 kg (01/15/23 11:05 AM) Weight Obtained Via Patient/family state d (01/15/23 11:05 AM) Dry Weight Obtained Via Patient/family s tated (01/15/23 11:05 AM) Social History Social History Type Response Smoking Status Current every day sm oker; Type: Cigarettes; Other: 6 cigarettes per day; entered on: 09/27/15 Sex Patient Care team information Care Team Personnel Name: Unique Dubon RN Position: [facility] RN Member Role: Primary Care Nurse Name: Maximo Morfin MD Position: [facility] Outreach Member Role: PCP Address: Address: [address] [place] [address] Name: Kadi Oliver RN Position: [facility] AMB Nurse Member Role: Primary Care Nurse Name: Mary Roberson RN Position: [facility] SN RN Member Role: Primary Care Nurse Name: Daniel Rodriguez RN Position: [facility] RN Member Role: Primary Care Nurse Name: Liz wSeet RN Position: [facility] RN Member Role: Primary Care Nurse Name: Dev De León RN Position: [facility] RN Member Role: Primary Care Nurse Name: Alexa Mitchell LPN Position: [facility] RN Member Role: Primary Care Nurse Name: Mary Arceo RN Position: [facility] RN Member Role: Primary Care Nurse Name: Toyin Contreras RN Position: [facility] Onco RN Member Role: Primary Care Nurse Name: Tierra Juan RN Position: [facility] SN RN Member Role: Primary Care Nurse Name: Veena Arthur RN Position: [facility] RN Member Role: Primary Care Nurse Name: Toshia Arce RN Position: [facility] RN Member Role: Primary Care Nurse Name: Ashlyn Kenney Position: [facility] AMB MA Member Role: Primary Care Nurse Name: Sameera Chappell RN Position: [facility] RN Member Role: Primary Care Nurse Name: Velia Shepherd RN Position: [facility] RN Member Role: Primary Care Nurse Name: Shelby Boothe RN Position: [facility] PCO w/OE and EZ Script Member Role: Primary Care Nurse Name: Francoise Whaley RN Position: [facility] Hospital Rental Car Deliverer Member Role: Primary Care Nurse Name: Elizabeth Chung RN Position: [facility] RN Member Role: Primary Care Nurse Care Team Related Persons Name: OPAL AMBRIZ Address: [address] [address] Name: QUAN LOMBARDO Address: [address] [place] [address] Name: AMOS LOMBARDO Address: [place] [address]
--- OUTSIDE RECORDS SUMMARY | 2023-05-03 21:44 | XMS_ITS | Continuity of Care Document ---
Author Name Unknown Organization [facility] ter Address [address] [place] [address]- Care Team Providers Care Electrical Engineering Drafting Officer Name Role Phone Not on Staff, PCP Primary Care Physician Unavail able Encounter [facility] Date(s): 12/06/22 - 12/06/[address] [address]- Discharge Disposition: A-D/C Walkout Attending Physician: Not [...] influenza virus vaccine, inactivated 04/27/16 Marcos rded [id number] 12y+ bivalent booster vax 05/15/22 Recorded SARS-CoV-2 mRNA ([id number]-nemo-[id number]) vax 11/19/21 Recorded tetanus/diphtheria/pertussis, acel(Tdap) 08/05/21 Recorded [...] tablet, 0 Refills, Maintenance, 11/03/22 9:55:00 EDT, [facility], Partial fill upon patient request if [...] 0 Refills, Maintenance, 10/15/20 10:30:00 EDT, Tablet, [facility], Partial fill upon patient request if the prescription is for a schedule II opioid drug., 1 tablet By Mouth Daily, 180, cm, ... Start Date: 10/15/20 Status: Ordered Nicoderm C-Q 7 mg/24 hr transdermal film, extended release 1 patch, Topically, Daily, for 30 days, # 30 patch, 0 Refills, Acute 12/08/22 8:26:00 EDT, :26:00 EDT, Patch, [facility], Partial fill upon patient request if [...] Range]: 1 2 3 Height 180 cm (12/06/22 2:58 AM) 180 cm (12/06/22 2:12 AM) Weight 75 kg (12/06/22 2:58 AM) 75 kg (12/06/22 2:12 AM) Oxygen Saturation [94-100 %] 100 % (12/06/22 6:53 AM) 100 % (12/06/22 4:36 AM) 99 % (12/06/22 2:12 AM) Pulse Rate [55-90 bpm] 77 bpm (12/06/22 6:53 AM) 96 bpm *H* (12/06/22 4:36 AM) 79 bpm (12/06/22 2:12 AM) Body Mass Index [18.5-24.99 kg/m2] 23.15 kg/m2 (12/06/22 2:12 AM) Blood Pressure [90-138/55-84 mm Hg] 147/92mm Hg *H* (12/06/22 6:53 AM) 146/90mm Hg *H* (12/06/22 4:36 AM) 125/80mm Hg (12/06/22 2:12 AM) Respiratory Rate [16-30 br/min] 16 br/min (12/06/22 4:36 AM) 16 br/min (12/06/22 2:12 AM) Temperature [96.8-100.4 DegF] 97.7 DegF (12/06/22 6:53 AM) 98.3 DegF (12/06/22 4:36 AM) 98.1 DegF (12/06/22 2:12 AM) Mode of Delivery (Oxygen) Room air (12/06/22 6:53 AM) Room air (12/06/22 4:36 AM) Room air (12/06/22 2:12 AM) Blood pressure sites Arm, left (12/06/22 6:53 AM) Arm, left (12/06/22 4:36 AM) Arm, left (12/06/22 2:12 AM) Temperature Route Oral (12/06/22 6:53 AM) Oral (12/06/22 4:36 AM) Oral (12/06/22 2:12 AM) Dry Weight 75 kg (12/06/22 2:58 AM) 75 kg (12/06/22 2:12 AM) Weight Obtained Via Patient/family state d (12/06/22 2:12 AM) Social History Social History Type Response Smoking Status Current every day sm oker; Type: Cigarettes; Other: 6 cigarettes per day; entered on: 09/27/15 Sex Patient Care team information Care Team Personnel Name: Unique Dubon RN Position: [facility] RN Member Role: Primary Care Nurse Name: Kadi Oliver RN Position: [facility] AMB Nurse Member Role: Primary Care Nurse Name: Mary Roberson RN Position: [facility] SN RN Member Role: Primary Care Nurse Name: Daniel Rodriguez RN Position: [facility] RN Member Role: Primary Care Nurse Name: Liz Sweet RN Position: [facility] RN Member Role: Primary Care Nurse Name: Toyin Contreras RN Position: [facility] Onco RN Member Role: Primary Care Nurse Name: Not on Staff, PCP Position: [facility] Physician (General Medicine) Member Role: PCP Name: Tierra Juan RN Position: [facility] SN RN Member Role: Primary Care Nurse Name: Veena Arthur RN Position: [facility] RN Member Role: Primary Care Nurse Name: Toshia Arce RN Position: [facility] RN Member Role: Primary Care Nurse Name: Velia Shepherd RN Position: [facility] RN Member Role: Primary Care Nurse Name: Shelby Boothe RN Position: [facility] PCO w/OE and EZ Script Member Role: Primary Care Nurse Name: Francoise Whaley RN Position: [facility] Hospital Budget Technician Member Role: Primary Care Nurse Name: Elizabeth Chung RN Position: [facility] RN Member Role: Primary Care Nurse Care Team Related Persons Name: OPAL AMBRIZ Address: [address] [address] Name: QUAN LOMBARDO Name: AMOS LOMBARDO Address: [place] [address]
--- OUTSIDE RECORDS SUMMARY | 2023-05-03 21:44 | XMS_ITS | Continuity of Care Document ---
Author Name Unknown Organization [facility] ter Address [address] [place] [id number] Care Team Providers Care Scientific Informatics Project Leader Name Role Phone Not on Staff, PCP Primary Care Physician Unavail able Encounter [facility] Date(s): 11/05/22 - 11/08/[address] [id number] Discharge Disposition: A-D/C Home Attending Physician: Rl BELTRÁN, Quan Cordero Admitting Physician: Watson Escobar MD Referring Physician: Not on Staff, Referring MD Allergies, Adverse Reactions, Alerts Substance Reaction Severity Status Bee Stings Active Immunizations Given and Recorded Vaccine Date Status Refusal Reason influenza virus vaccine, inactivated 05/15/22 Marcos rded influenza virus vaccine, inactivated 04/15/22 Marcos rded influenza virus vaccine, inactivated 09/10/21 Marcos rded influenza virus vaccine, inactivated 05/10/17 Marcos rded influenza virus vaccine, inactivated 04/27/16 Marcos rded [id number] 12y+ bivalent booster vax 05/15/22 Recorded SARS-CoV-2 mRNA ([id number]) vax 11/19/21 Recorded tetanus/diphtheria/pertussis, acel(Tdap) 08/05/21 Recorded [...] Refills, Maintenance, 11/03/22 9:55:00 EDT, [facility] 3, Partial fill upon patient request if [...] oral capsule 300 mg, Capsule, By Mouth, 11/08/22 9:00:00 EDT Start Date: 11/08/22 Stop Date: 11/08/22 Status: Completed gabapentin 300 mg oral capsule [...] oral tablet 10 mg, Tablet, By Mouth, 11/08/22 9:00:00 EDT Start Date: 11/08/22 Stop Date: 11/08/22 Status: Completed Melatonin 5 mg oral tablet [...] 0 Refills, Maintenance, 10/15/20 10:30:00 EDT, Tablet, [facility] 3, Partial fill upon patient request if the prescription is for a schedule II opioid drug., 1 tablet By Mouth Daily, 180, cm, ... Start Date: 10/15/20 Status: Ordered Nicoderm C-Q 7 mg/24 hr transdermal film, extended release 1 patch, Topically, Daily, for 30 days, # 30 patch, 0 Refills, Acute 12/08/22 8:26:00 EDT, :26:00 EDT, Patch, [facility], Partial fill upon patient request if the prescription is for a schedule II opioid drug., 180, cm, 11/08/22 7:... Start Date: 11/08/22 Stop Date: 12/08/22 Status: Ordered ondansetron 4 mg oral tablet, disintegrating 1 tablet = 4 mg, By Mouth, 3 times a day, PRN Nausea & Vomiting, for 5 days, # 10 tablet, 0 Refills, Acute 11/13/22 8:24:00 EDT, 11/08/22 8:24:00 EDT, Tablet, [facility], Partial fill upon patient request if the prescription is for a schedul... Start Date: 11/08/22 Stop Date: 11/13/22 Status: Ordered oxyCODONE 5 mg oral tablet 2.5 mg, Tablet, By Mouth, Every 4 hours, PRN for Pain , Severe, Routine, 11/07/22 10:13:00 EDT Start Date: 11/07/22 Stop Date: 11/09/22 Status: Discontinued pantoprazole 40 mg oral delayed [...] Exam Date Time Procedure Performing Provider Status 11/05/22 3:[address] Abd/Pelvis W/ IV Contrast Only Ivanna Aiken; Auth (Verified) Notes: (CT Abd/Pelvis W/ IV Contrast Only) Reason For Exam: abdominal pain;Other: RESULT: CT Abd/Pelvis W/ IV Contrast Only CT Abd/Pelvis W/ IV Contrast Only Hx of Present Illness: pt had PE recenty and was dc with Eliquis. pt now having episodes of vomiting blood for 30 min; Reason: abdominal pain; Clinical Question(s): Bowel Perforation; upper GI bleed TECHNIQUE: Spiral CT through the abdomen and pelvis with IV contrast formatted in 3 planes. 100 cc of Omnipaque 300 was administered intravenously. This study was performed without oral contrast. Weight-based protocol using automatic tube modulation was used to optimize exposure parameters. CTDIvol Body: 15.00 mGy, DLP Body: 758 mGy*cm. COMPARISON: 08/07/2022 FINDINGS: Repulping Supervisor View Findings, Lines and Tubes: None. Visualized Chest: Bibasilar atelectasis. No pleural effusion. The heart is normal in size. No pericardial effusion. Diaphragm: Normal. Liver: Multiple subcentimeter circumscribed low-density lesions likely represent cysts (in the absence of known malignancy). Gallbladder: No CT evidence of gallbladder pathology. Bile ducts: No biliary ductal dilation. Spleen: Normal. Pancreas: Parenchymal calcifications. No suspicious ductal dilation. Adrenal glands: Normal. Kidneys and ureters: Contrast seen within the collecting system. No hydronephrosis, stones, or suspicious masses. Simple appearing renal cysts are noted, requiring no dedicated follow up. Bladder: Distended with contrast. Reproductive organs: Unremarkable. Stomach, small bowel, and large bowel: Concentric thickening of the distal esophagus with a type I hiatal hernia. No evidence of obstruction or inflammation. No evidence of bowel perforation. Appendix: Normal. Peritoneum and retroperitoneum: No ascites or pneumoperitoneum. No omental or mesenteric lesions. Lymph nodes: No enlarged lymph nodes. Blood vessels: Moderate atherosclerotic vascular calcification. No aortic aneurysm. No evidence of venous thrombosis. No evidence of upper abdominal varices. Abdominal and pelvic wall: Small fat-containing umbilical hernia. Bones: Stable appearance of spinal hardware without evidence of failure. Status post right hip arthroplasty. Multiple right rib fixations. Compression deformity of L1 to No acute abnormality. IMPRESSION: Redemonstrated is a type I hiatal hernia with moderate circumferential thickening of the distal esophagus. Recommend nonemergent GI consultation for endoscopy. Or if acutely bleeding can consider urgent consultation. No other acute process within the abdomen/pelvis. Findings communicated to MARTHA Simmons at 4:09 AM on 11/05/2022. I have personally reviewed the images and I agree with this report. WSN: [id number] Ordering Physician: Estephania Mcmillan Dictated By: Marycruz Hamilton DO Dictated Date/Time: 11/05/22 7:51 am Reviewed By: Aramis Levin MD Signed By: Aramis Levin MD Signed Date/Time: 11/05/22 7:56 am Transcribed By: MARC Transcribed Date/Time: 11/05/22 4:11 am Vital Signs Most recent to oldest [Reference Range]: 1 2 3 4 Height 180 cm (11/08/22 7:43 AM) 180 cm (11/07/22 11:00 PM) 180 cm (11/07/22 7:10 PM) Weight 74.6 kg (11/06/22 10:47 AM) 74.6 kg (11/05/22 4:07 PM) Oxygen Saturation [94-100 %] 95 % (11/08/22 7:43 AM) 96 % (11/07/22 11:00 PM) 95 % (11/07/22 7:10 PM) Pulse Rate [55-90 bpm] 60 bpm (11/08/22 7:43 AM) 88 bpm (11/07/22 11:00 PM) 72 bpm (11/07/22 7:10 PM) Body Mass Index [18.5-24.99 kg/m2] 23.02 kg/m2 (11/06/22 10:47 AM) 23.02 kg/m2 (11/05/22 4:07 PM) Blood Pressure [90-138/55-84 mm Hg] 157/87mm Hg *H* (11/08/22 8:41 AM) 157/87mm Hg *H* (11/08/22 7:43 AM) 112/55mm Hg (11/07/22 11:00 PM) Respiratory Rate [16-30 br/min] 18 br/min (11/08/22 10:42 AM) 18 br/min (11/08/22 10:42 AM) 18 br/min (11/08/22 8:41 AM) 18 br/min (11/08/22 8:41 AM) Temperature [96.8-100.4 DegF] 98.1 DegF (11/08/22 7:43 AM) 98.5 DegF (11/07/22 11:00 PM) 98.6 DegF (11/07/22 7:10 PM) Mode of Delivery (Oxygen) Room air (11/08/22 7:43 AM) Room air (11/07/22 11:00 PM) Room air (11/07/22 7:10 PM) Blood pressure sites Arm, right (11/08/22 7:43 AM) Arm, right (11/07/22 11:00 PM) Arm, right (11/07/22 7:10 PM) Temperature Route Oral (11/08/22 7:43 AM) Oral (11/07/22 11:00 PM) Oral (11/07/22 7:10 PM) Dry Weight 74.6 kg (11/05/22 4:07 PM) Weight Obtained Via Bed scale (11/05/22 4:07 PM) Dry Weight Obtained Via Bed scale (11/05/22 4:07 PM) Social History Social History Type Response Smoking Status Current every day sm oker; Type: Cigarettes; Other: 6 cigarettes per day; entered on: 09/27/15 Sex Endoscopy study * Event Display: GG EGD Please click on pdf link to open report History and physical note * Rl BELTRÁN, Quan Cordero: PERFORM Event Display: History and Physical Hospital Authored Date: Patient: ??MELISSA LOMBARDO ? Age:??57 Years?Sex:??Male?:??1965?? Chief Complaint/Reason for Consultation Abdominal pain. Coffee ground emesis History of Present Illness This is a 57 y/o male with h/o alcohol abuse, hypertension, history of prior PE, GERD, chronic backpain/failed back syndrome, GERD. He was discharged 2 days prior to presentation after being diagnosed with a new pulmonary embolism. He was sent home on anticoagulation (apixaban) and reports that he started to drink alcohol again. He states that he was drinking beer and hard alcohol. ?? He then reports developing upper abdominal pain and vomiting He states that he vomited 4 times and the vomitus was dark brown with some red. ?? In the ED, the provider reported witnessing what appeared to be coffee??ground emesis. ?? The patient has been haemodynamically stable??and his H&H is essentially unchanged from his recent admission CT abdo/pelvis showed some thickening of the lower oesophagus ?? SHx drinks up to a pint of liquor per day smokes about 5 cigarettes per day reports that when intoxicated with alcohol he will occasionally also use heroin and cocaine (snorted, denies IVDU) ?? FHx Father had bladder cancer Review of Systems ?Constitutional: no fevers/chills ?Eyes: no pain, no vision changes ?ENT: no ear pain, no change in hearing ?Cardiovasc: no chest pain, no palpitations, no PND, no orthopnoea ?Resp: no cough, no sputum, no haemoptysis, no dyspnoea ?GI:??as above. denies rectal bleeding or melaena ?: no dysuria, no urinary frequency, no flank pain ?MS:??chronic back pain ?Skin: no rashes, no itching, no bruising ?Endocrine: no heat/cold intolerance, no polyuria/polydipsia ?Neuro: no headache, no dizziness, no focal neuro symptoms ?Psych: no depression, no anxiety, no suicidal ideation ?Haem/lymph: no swollen lymph nodes, no easy bleeding/bruising, no night sweats ?Allergy/immune: no??itchy eyes, no rashes Objective ? Vital Signs?? Temperature: 98 DegF (11/05/22 07:15:00) Temperature Route: Oral (11/05/22 07:15:00) Pulse Rate: 71 bpm (11/05/22 07:15:00) Respiratory Rate: 16 br/min (11/05/22 08:58:00) Systolic Blood Pressure: 124 mm Hg (11/05/22 07:15:00) Diastolic Blood Pressure: 69 mm Hg (11/05/22 07:15:00) Blood pressure sites: Arm, right (11/05/22 07:15:00) Mean Arterial Pressure: 87 mm Hg (11/05/22 07:15:00) Pulse Pressure: 55 mm Hg (11/05/22 07:15:00) Oxygen Saturation: 95 % (11/05/22 07:15:00) Mode of Delivery (Oxygen): Room air (11/05/22 07:15:00) Early Warning Score: 2 (11/05/22 10:09:29) ? Intake/Output? No Data Available ? Physical Exam General:??Alert, comfortable Mental Status:??Oriented to person, place and time. Normal affect. Head:??Normocephalic. Ear, Nose and Throat:??Oropharynx clear, mucous membranes moist Neck:??Supple, Full range of motion. Respiratory:??Clear to auscultation and percussion. No wheezing, rales or rhonchi. Cardiovascular:??Heart sounds normal. No thrills. Regular rate and rhythm, no murmurs Gastrointestinal:??Abdomen soft, mild epigastric tenderness. Normal bowel sounds Genitourinary:??No costovertebral angle tenderness. Neurologic:??Cranial nerves II-XII grossly intact. power 5/5 throughout. Sensation intact bilaterally. A+Ox3. no tremor Skin:??No rashes or lesions. Musculoskeletal:??No gross deformities. Normal range of motion. Lymphatics:??Palpation of neck reveals no swelling or tenderness of neck nodes Assessment/Plan Assessment:??This is a 57 y/o male with h/o alcohol abuse, hypertension, history of prior PE, GERD,chronic back pain/failed back syndrome, GERD. He was discharged 2 days prior to presentation after being diagnosed with a new pulmonary embolism. He comes back to the hospital with epigastric abdominal pain and coffee ground vomiting after binging on alcohol ?? Coffee ground emesis Concern for upper GI bleed patient presents after alcohol binge with vomiting and reported coffee ground emesis Now on anti-coagulation for recent PE Haemodynamically stable and H&H similar to prior did have elevated BUN/Cr ratio and lower oesophageal thickening on CT differential includes Susanna Ventura tear, oesophagitis, gastritis, PUD Plan: NPO for now (though unfortunately patient had a tray when I saw him) continue IV PPI await GI review monitor H&H will anti-coagulate with IV heparin at present alcohol cessation counseled ?? Alcohol excess recent binge supposed to be on acamprosate but has not been taking only out of the hospital for 48 hours so unlikely to have significant withdrawal will continue thiamine, folic acid, multivitamin restart acamprosate SW consult ?? PE, recurrent recently discharged on apixaban heparin for now while monitoring for bleeding should be ok to resume apixaban on discharge recommendation would be for lifelong anticoagulation given that this was a recurrent event ?? HTN hold lisinopril at this time ?? chronic back pain continue duloxetine and gabapentin ?? VTE prophylaxis - IV heparin Diet - NPO Full code ?? Histories Allergies Allergies ?(Active and Proposed [...] enteric coated capsule)?1?capsule?30?Milligram?By Mouth?2 times a day Folic Acid (folic acid 1 mg oral tablet)?1?Milligram?1?tablet?By Mouth?Daily Gabapentin (gabapentin 300 mg oral capsule)?300?Milligram?1?capsule?By Mouth?3 times a day Lisinopril (lisinopril 10 mg oral tablet)?10?Milligram?1?tablet?By Mouth?Daily Melatonin (Melatonin 5 mg oral tablet)?1?tab(s)?5?Milligram?By Mouth?Daily at bedtime?as needed?for insomnia Multivitamin (multivitamin Multiple Vitamins oral tablet)?1?tab(s)?By Mouth?Daily Pantoprazole (pantoprazole 40 mg oral delayed release tablet)?1?tab(s)?40?Milligram?By Mouth?Daily Thiamine (thiamine 100 mg oral tablet)?100?Milligram?1?tablet?By Mouth?Daily ? Results Recent Labs BLOOD BANK Blood Type B Positive ()?? 11/05/2022 02:15 Antibody Screen Negative ()?? 11/05/2022 02:15 ?? BLOOD COUNT & DIFF WBC 9.4 k/mm3 ()?? 11/05/2022 09:05 RBC 3.55 m/mm3 (Low)?? 11/05/2022 09:05 Hgb 9.9 Gm/dL (Low)?? 11/05/2022 09:05 Hct 31.5 % (Low)?? 11/05/2022 09:05 MCV 88.7 femtoliters ()?? 11/05/2022 09:05 MCH 27.9 pg ()?? 11/05/2022 09:05 MCHC 31.4 g/dL (Low)?? 11/05/2022 09:05 Platelet Count 259 k/mm3 ()?? 11/05/2022 09:05 RDW-SD 47.0 femtoliters (High)?? 11/05/2022 09:05 MPV 10.6 femtoliters ()?? 11/05/2022 09:05 Nucleated RBC (Automated) 0.0 #/100 WBC'S ()?? 11/05/2022 09:05 Abs. NRBC 0.0 k/mm3 ()?? 11/05/2022 09:05 Abs. Neut 6.0 k/mm3 ()?? 11/05/2022 02:25 Abs. Lymph 1.0 k/mm3 ()?? 11/05/2022 02:25 Abs. [place] 0.2 k/mm3 (Low)?? 11/05/2022 02:25 Abs. Eo 0.0 k/mm3 ()?? 11/05/2022 02:25 Abs. Baso 0.0 k/mm3 ()?? 11/05/2022 02:25 Neut % 82.6 % (High)?? 11/05/2022 02:25 Lymph % 13.7 % (Low)?? 11/05/2022 02:25 [place] % 2.6 % (Low)?? 11/05/2022 02:25 Eos % 0.0 % ()?? 11/05/2022 02:25 Baso % 0.3 % ()?? 11/05/2022 02:25 Imm Gran 0.8 % ()?? 11/05/2022 02:25 Abs. Imm Gran 0.1 k/mm3 ()?? 11/05/2022 02:25 ?? CHEM GENERAL Sodium 142 mmol/L ()?? 11/05/2022 02:25 Potassium 4.0 mmol/L ()?? 11/05/2022 02:25 Chloride 98 mmol/L ()?? 11/05/2022 02:25 Bicarbonate Level 32 mmol/L (High)?? 11/05/2022 02:25 Anion Gap 12 ()?? 11/05/2022 02:25 Glucose Level 144 mg/dL (High)?? 11/05/2022 02:25 Glucose, POC 145 mg/dL (High)?? 11/05/2022 02:26 BUN 28 mg/dL (High)?? 11/05/2022 02:25 Creatinine-Blood 0.9 mg/dL ()?? 11/05/2022 02:25 Estimated GFR Creatinine 101 ML/MIN/1.73 M2 ()?? 11/05/2022 02:25 Calcium 9.7 mg/dL ()?? 11/05/2022 02:25 Protein, Total 7.0 Gm/dL ()?? 11/05/2022 02:25 Albumin 4.4 Gm/dL ()?? 11/05/2022 02:25 AG Ratio 1.7 ()?? 11/05/2022 02:25 Alkaline Phosphatase 88 units/L ()?? 11/05/2022 02:25 Lipase 17 units/L ()?? 11/05/2022 02:25 AST (SGOT) 25 units/L ()?? 11/05/2022 02:25 ALT (SGPT) 14 units/L ()?? 11/05/2022 02:25 Bilirubin, Total 0.5 mg/dL ()?? 11/05/2022 02:25 Lactate 1.5 mmol/L ()?? 11/05/2022 02:32 ?? COAG INR 1.0 ()?? 11/05/2022 02:25 Protime (PT) 11.0 seconds ()?? 11/05/2022 02:25 ?? TOXICOLOGY/TDM Ethanol, Serum or Plasma NONE DETECTED mg/dL ()?? 11/05/2022 02:25 ?? VIROLOGY COVID-19 by RT-PCR NEGATIVE ()?? 11/05/2022 02:25 ? Imaging(s) ?CT Abd/Pelvis W/ IV Contrast Only ?? 11/05/2022 03:48??by Aramis Levin MD ? FINDINGS: ?? Repulping Supervisor View Findings, Lines and Tubes: None. ?? Visualized Chest: Bibasilar atelectasis. No pleural effusion. The heart is normal in size. No pericardial effusion. ?? Diaphragm: Normal. ?? Liver: Multiple subcentimeter circumscribed low-density lesions likely represent cysts (in the absence of known malignancy). ?? Gallbladder: No CT evidence of gallbladder pathology. ?? Bile ducts: No biliary ductal dilation. ?? Spleen: Normal. ?? Pancreas: Parenchymal calcifications. No suspicious ductal dilation. ?? Adrenal glands: Normal. ?? Kidneys and ureters: Contrast seen within the collecting system. No hydronephrosis, stones, or suspicious masses. Simple appearing renal cysts are noted, requiring no dedicated follow up. ?? Bladder: Distended with contrast. ?? Reproductive organs: Unremarkable. ?? Stomach, small bowel, and large bowel: Concentric thickening of the distal esophagus with a type I hiatal hernia. No evidence of obstruction or inflammation. No evidence of bowel perforation. ?? Appendix: Normal. ?? Peritoneum and retroperitoneum: No ascites or pneumoperitoneum. No omental or mesenteric lesions. ?? Lymph nodes: No enlarged lymph nodes. ?? Blood vessels: Moderate atherosclerotic vascular calcification. No aortic aneurysm. No evidence of venous thrombosis. No evidence of upper abdominal varices. ?? Abdominal and pelvic wall: Small fat-containing umbilical hernia. ?? Bones: Stable appearance of spinal hardware without evidence of failure. Status post right hip arthroplasty. Multiple right rib fixations. Compression deformity of L1 to No acute abnormality. ?? IMPRESSION: ?? Redemonstrated is a type I hiatal hernia with moderate circumferential thickening of the distal esophagus. Recommend nonemergent GI consultation for endoscopy. Or if acutely bleeding can consider urgent consultation. ?? No other acute process within the abdomen/pelvis. ? Admission evaluation note * Simeon HUSSEINNuvia: PERFORM Event Display: Admission Note Authored Date: [id number] Patient is A+Ox4 and remains afebrile. Patient has no complaints of pain and is able to speak clearly and in full sentences, able to make their needs known. Patient interactive and cooperative with their care, using his call michel appropriately and asking questions as needed. Patient's belongings accounted for, and patient oriented to room. Patient irritable with admission and CIWA questions but was cooperative with answering. Patient remains on a heparin drip with an EGD planned for tomorrow. Patient has no further requests or concerns at this time. Please CIS for biophysical assessment. Planof care ongoing. Nuvia Hendrix RN * Nuvia Hendrix RN: PERFORM Event Display: Admission Note Authored Date: Four-eyed skin assessment completed on patient with Albin Boothe RN Hospital Progress note * Daniel Rodriguez RN: PERFORM, SIGN, VERIFY Event Display: Progress Note Hospital Authored Date: Patient: MELISSA LOMBARDO Age: 57 years Sex: Male : 1965 Associated Diagnoses: None Author: Daniel Rodriguez RN Findings Problem Related to Alteration in Comfort : Alteration in Comfort/new 11/08/2022 10:43 EDT Alteration in Comfort Related to Disease process, Other: Abdominal pain, N/V resulting in potential upper GI bleed Goals & Outcomes: Comfort Resolved problem, Goals/Outcomes met Interventions Implemented: Comfort Assess alleviating factors & promote them accordingly Goals/Interventions, Comfort Yes Comfort, Problem Start 11/05/2022 15:00 Reviewed plan with, Comfort Patient Patient Progression, Comfort Resolved problem Comfort, Problem Ongoing Yes Comfort, Problem Resolved 11/08/2022 10:44 . Alteration in Gastrointestinal : Alteration in Gastrointestinal Func/new 11/08/2022 10:43 EDT Alteration in GI status Related to Other: N/V, abdominal pain, potential UGIB Goals & Outcomes, Gastrointestinal Resolved problem, Goals/Outcomes met Interventions, Gastrointestinal Resolved problem, Interventions no longer in effect Goals/Interventions, Gastrointestinal Yes Gastrointestinal, Problem Start 11/05/2022 15:00 Reviewed plan with, Gastrointestinal Patient Patient Progression, Gastrointestinal Resolved problem Gastrointestinal, Problem Resolved 11/08/2022 10:44 . Alteration in Safety : Alteration in Safety/new 11/08/2022 10:43 EDT Alteration in Safety Related to Other: CIWA ETOH, seizure precautions Goals & Outcomes, Safety Resolved problem, Goals/Outcomes met Interventions, Safety Resolved problem, Interventions no longer in effect Goals/Interventions, Safety Yes Safety, Problem Start 11/05/2022 15:00 Reviewed plan with, Safety Patient Patient Progression, Safety Resolved problem Safety, Problem Resolved 11/08/2022 10:44 . Nursing Data Musculoskeletal Data. : Musculoskeletal Data. 11/08/2022 10:30 EDT Musculoskeletal WNL . Neurological Data. : Neurological Data. 11/08/2022 10:30 EDT Pain Location Epigastric, Lower back Pain Interventions PRN medication, Rest Neuro WNL . Narrative/Incidental pt a & o x 3 able to make needs known, no complaint of pain, possible d/c today depending on how pt feels, see CIS and physician notes for further and complete details, call michel in place. . Discharge Information Case Management Discharge Plan : Case Management Discharge Plan Data 11/03/2022 12:33 EDT Discharge Level of Care at Discharge Home/Long Term/Foster Care 11/03/2022 9:03 EDT Discharge Level of Care at Discharge Home/Long Term/Foster Care * Elizabeth Chung RN: VERIFY, PERFORM, SIGN Event Display: Progress Note Hospital Authored Date: [id number] Patient: MELISSA LOMBARDO Age: 57 years Sex: Male : 1965 Associated Diagnoses: None Author: Elizabeth Chung RN Findings Problem Related to Alteration in Comfort : Alteration in Comfort/new 11/08/2022 10:43 EDT Alteration in Comfort Related to Disease process, Other: Abdominal pain, N/V resulting in potential upper GI bleed Goals & Outcomes: Comfort Resolved problem, Goals/Outcomes met Interventions Implemented: Comfort Assess alleviating factors & promote them accordingly Goals/Interventions, Comfort Yes Comfort, Problem Start 11/05/2022 15:00 Reviewed plan with, Comfort Patient Patient Progression, Comfort Resolved problem Comfort, Problem Ongoing Yes Comfort, Problem Resolved 11/08/2022 10:44 . Alteration in Gastrointestinal : Alteration in Gastrointestinal Func/new 11/08/2022 10:43 EDT Alteration in GI status Related to Other: N/V, abdominal pain, potential UGIB Goals & Outcomes, Gastrointestinal Resolved problem, Goals/Outcomes met Interventions, Gastrointestinal Resolved problem, Interventions no longer in effect Goals/Interventions, Gastrointestinal Yes Gastrointestinal, Problem Start 11/05/2022 15:00 Reviewed plan with, Gastrointestinal Patient Patient Progression, Gastrointestinal Resolved problem Gastrointestinal, Problem Resolved 11/08/2022 10:44 . Alteration in Safety : Alteration in Safety/new 11/08/2022 10:43 EDT Alteration in Safety Related to Other: CIWA ETOH, seizure precautions Goals & Outcomes, Safety Resolved problem, Goals/Outcomes met Interventions, Safety Resolved problem, Interventions no longer in effect Goals/Interventions, Safety Yes Safety, Problem Start 11/05/2022 15:00 Reviewed plan with, Safety Patient Patient Progression, Safety Resolved problem Safety, Problem Resolved 11/08/2022 10:44 . Nursing Data Vital Signs : VITAL SIGNS SECTION 11/08/2022 7:43 EDT Temperature 98.1 DegF Temperature Route Oral Pulse Rate 60 bpm Respiratory Rate 18 br/min Systolic Blood Pressure 157 mm Hg H Diastolic Blood Pressure 87 mm Hg H Blood pressure sites Arm, right Mean Arterial Pressure 110 mm Hg Pulse Pressure 70 mm Hg Oxygen Saturation 95 % Mode of Delivery (Oxygen) Room air . Evaluation Pt is a&ox4, vss, afebrile. Denies chest pain, palpitation, dizziness, SOB. Appears to be in noacute distress. Respirations are even & steady. on room air. Denies GI discomfort & tolerating PO intake. reports epigastric discomfort. voiding WNL. skin WNL. heparin drip d/c this morning. Appears comfortable resting in bed at this time. ambulating adlib in room. Callbell & items within reach. Bed alarm is active. Safety precautions maintained and will continue to monitor...... * Albin Boothe: MODIFY, SIGN, VERIFY, PERFORM Event Display: Progress Note Hospital Authored Date: [id number] Patient: MELISSA LOMBARDO Age: 57 years Sex: Male : 1965 Associated Diagnoses: None Author: Albin Boothe Findings Problem Related to Alteration in Gastrointestinal : Alteration in Gastrointestinal Func/new 11/07/2022 10:00 EDT Alteration in GI status Related to Other: N/V, abdominal pain, potential UGIB Goals & Outcomes, Gastrointestinal Establish a regular pattern of elimination for pt, Nutritional intake is adequate for metabolic needs, Gastric drainage will exhibit progressive clearing, Tissue perfusion will return to baseline Interventions, Gastrointestinal Assess/monitor abdomen for distention, tenderness, Assess/monitor abdominal girth & bowel function, Assess/monitor bowel pattern, bowel sounds, flatus, Assess/monitor number of bowel movements, Assess/monitor color, quantity, quality, consistency of stoo, Assess/monitor intake & output, Collaborate/Consult with Last Sorter; review recommendations, DVT prophylaxis as ordered, Elevate HOB to facilitate lung expansion, prevent aspiration, Establish toileting schedule for patient, Nasogastric to LWS as ordered;care per Standards of Practice, Provide info on community resources for education, support, Provide/encourage oral care if NPO, Teach Pt/caregiver diet & give copy of dietary instructions, Teach Pt/caregiver re: importance of bowel regime, TeachPt/caregiver re: nutritional intake & dietary restrict, Teach/encourage deep breath & coughexercises Goals/Interventions, Gastrointestinal Yes Gastrointestinal, Problem Start 11/05/2022 15:00 Reviewed plan with, Gastrointestinal Patient Patient Progression, Gastrointestinal Pt progressing according to plan . Alteration in Safety : Alteration in Safety/new 11/07/2022 10:00 EDT Alteration in Safety Related to Other: CIWA ETOH, seizure precautions Goals & Outcomes, Safety Pt/caregiver will state understanding of plan/goals of care, Pt will remain safe & injury free, Pt/caregiver will be offered appropriate resources & support Interventions, Safety Provide info on community resources for education, support, Provide teaching as needed Goals/Interventions, Safety Yes Safety, Problem Start 11/05/2022 15:00 Reviewed plan with, Safety Patient Patient Progression, Safety Pt progressing according to plan . Nursing Data Vital Signs : VITAL SIGNS SECTION 11/07/2022 15:31 EDT Early Warning Score 0.00 11/07/2022 15:31 EDT Temperature 98.5 DegF Temperature Route Oral Pulse Rate 62 bpm Respiratory Rate 17 br/min Systolic Blood Pressure 139 mm Hg H Diastolic Blood Pressure 74 mm Hg Blood pressure sites Arm, right Mean Arterial Pressure 96 mm Hg Pulse Pressure 65 mm Hg Oxygen Saturation 96 % Mode of Delivery (Oxygen) Room air 11/07/2022 15:13 EDT Early Warning Score 2.00 11/07/2022 15:13 EDT Early Warning Score 2.00 11/07/2022 15:11 EDT Respiratory Rate 18 br/min Respiratory Rate 19 br/min 11/07/2022 10:03 EDT Early Warning Score 2.00 11/07/2022 10:03 EDT Respiratory Rate 18 br/min 11/07/2022 8:01 EDT Early Warning Score 2.00 11/07/2022 8:01 EDT Early Warning Score 2.00 11/07/2022 7:59 EDT Respiratory Rate 20 br/min 11/07/2022 7:58 EDT Systolic Blood Pressure 141 mm Hg H Diastolic Blood Pressure 74 mm Hg 11/07/2022 7:26 EDT Early Warning Score 2.00 11/07/2022 7:26 EDT Temperature 98.4 DegF Temperature Route Oral Pulse Rate 61 bpm Respiratory Rate 18 br/min Systolic Blood Pressure 141 mm Hg H Diastolic Blood Pressure 74 mm Hg Blood pressure sites Arm, right Mean Arterial Pressure 96 mm Hg Pulse Pressure 67 mm Hg Oxygen Saturation 93 % L Mode of Delivery (Oxygen) Room air . Narrative/Incidental Patient is A/Ox3, Scoring low on CIWA score but he is cooperative with care, assessments as in [facility],no reports of nausea and vomiting, no SOB/ chest pain but reports pain in the lower back prn oxycodone ordered and given with positive effects. VSS, last BM 11/05/22, monitoring urine output and fluidintake. Morning care complete. Patient on clear liquid diet, voids adequate amounts. Patient is resting comfortably in bed with call michel in reach and bed in the lowest position. Plan of care ongoing. . Discharge Information Case Management Discharge Plan : Case Management Discharge Plan Data 11/03/2022 12:33 EDT Discharge Level of Care at Discharge Home/Long Term/Foster Care 11/03/2022 9:03 EDT Discharge Level of Care at Discharge Home/Long Term/Foster Care Note * Daniel Rodriguez RN: PERFORM Event Display: Discharge/Transfer Note Hospital Authored Date: [id number] Nursing Discharge Note Entered On: 11/08/2022 17:33 EDT Performed On: 11/08/2022 17:32 EDT by Daniel Rodriguez RN Nursing Discharge Note 2 Discharge Time : 11/08/2022 13:00 EDT Discharge Level of Care at Discharge : Home/Long Term/Foster Care Patient Left Unit Via : Ambulatory Patient Accompanied Off Unit with : Other: self DC Instructions Provided & Signed by Pt : Yes Patient Understands D/C Instructions : Yes Patient Instructions Discharge Signed : Yes Did Pt have Specialty Bed or Wound Vac : No Daniel Rodriguez RN - 11/08/2022 17:32 EDT * Rl BELTRÁN, Quan Cordero: PERFORM Event Display: Discharge/Transfer Note Hospital Authored Date: Patient: ??MELISSA LOMBARDO ? Age:??57 Years?Sex:??Male?:??1965?? Patient Information Discharge Location: 3 Primary Care Physician: Not on Staff, PCP Admit Date/Time: 11/05/22 16:24 Discharge Disposition Discharge Disposition: Home: No Services Discharge Diagnosis Erosive esophagitis (K22.10) ?? _ Discharge Medications Acamprosate (acamprosate 333 [...] enteric coated capsule)?1?capsule?30?Milligram?By Mouth?2 times a day Folic Acid (folic acid 1 mg oral tablet)?1?Milligram?1?tablet?By Mouth?Daily Gabapentin (gabapentin 300 mg oral capsule)?300?Milligram?1?capsule?By Mouth?3 times a day Lisinopril (lisinopril 10 mg oral tablet)?10?Milligram?1?tablet?By Mouth?Daily Melatonin (Melatonin 5 mg oral tablet)?1?tab(s)?5?Milligram?By Mouth?Daily at bedtime?as needed?for insomnia Multivitamin (multivitamin Multiple Vitamins oral tablet)?1?tab(s)?By Mouth?Daily Nicotine (Nicoderm C-Q 7 mg/24 hr transdermal film, extended release)?1?patch(es)?Topically?Daily?for 30?Days Ondansetron (ondansetron 4 mg oral tablet, disintegrating)?1?tab(s)?4?Milligram?By Mouth?3 times a day?as needed?Nausea & Vomiting?for 5?Days Pantoprazole (pantoprazole 40 mg oral delayed release tablet)?1?tab(s)?40?Milligram?By Mouth?2 times a day Thiamine (thiamine 100 mg oral tablet)?100?Milligram?1?tablet?By Mouth?Daily ? Medications Started ondansetron nicotine patch Medications Discontinued none Doses Changed pantoprazole to 40mg bid PCP Follow-Up/Heads-Up please monitor CBC please continue anticoagulation lifelong please ensure that patient follows up with GI for repeat EGD in 3 months Objective Assessment and Plan Assessment:??This is a 57 y/o male with h/o alcohol abuse, hypertension, history of prior PE, GERD,chronic back pain/failed back syndrome, GERD. He was discharged 2 days prior to presentation after being diagnosed with a new pulmonary embolism. He comes back to the hospital with epigastric abdominal pain and coffee ground vomiting after binging on alcohol ?? Coffee ground emesis Concern for upper GI bleed patient presents after alcohol binge with vomiting and reported coffee ground emesis Now on anti-coagulation for recent PE Haemodynamically stable and H&H similar to prior did have elevated BUN/Cr ratio and lower oesophageal thickening on CT s/p EGD on 11/06 with erosive oesophagitis patient tolerated advancing diet from clears to puree no further bleeding and stable H&H Recs advanced diet to puree - GI recommend to continue this for 1 week pantoprazole 40mg bid resume apixaban will need repeat EGD in 3 months - please ensure that patient follows up with GI for this alcohol cessation counseled ?? Alcohol excess recent binge supposed to be on acamprosate but has not been taking only out of the hospital for 48 hours so??did not have??significant withdrawal will continue thiamine, folic acid, multivitamin restarted acamprosate ?? PE, recurrent recently discharged on apixaban heparin for now while monitoring for bleeding should be ok to resume apixaban on discharge recommendation would be for lifelong anticoagulation given that this was a recurrent event ?? HTN continue??lisinopril ?? chronic back pain continue duloxetine and gabapentin ?? Full code ? Vital Signs?? Temperature: 98.1 DegF (11/08/22 07:43:00) Temperature Route: Oral (11/08/22 07:43:00) Pulse Rate: 60 bpm (11/08/22 07:43:00) Respiratory Rate: 18 br/min (11/08/22 08:41:00) Respiratory Rate: 18 br/min (11/08/22 08:41:00) Systolic Blood Pressure:??157 mm Hg??High (11/08/22 08:41:00) Diastolic Blood Pressure:??87 mm Hg??High (11/08/22 08:41:00) Blood pressure sites: Arm, right (11/08/22 07:43:00) Mean Arterial Pressure: 110 mm Hg (11/08/22 07:43:00) Pulse Pressure: 70 mm Hg (11/08/22 07:43:00) Oxygen Saturation: 95 % (11/08/22 07:43:00) Mode of Delivery (Oxygen): Room air (11/08/22 07:43:00) Early Warning Score: 2 (11/08/22 08:43:41) ? . Physical Exam Gen: comfortable, well: HEENT: normocephalic, atraumatic, moist mucous membranes Chest: CTA, no wheeze/crackles CVS: no M/G/R, no JVD Abdo: soft, non-tender Ext: no oedema, no cyanosis or clubbing Neuro: no deficit. no tremor Psych: WNL Surgical Procedures Gastroscopy (EGD) Diagnostic 11/06/2022 11:09 Pending Results CBC ordered on 11/06/2022 Patient Education Titles Alcoholism: Getting Help?? Pantoprazole Delayed Release Oral Tablet?? Esophagitis?? Follow-Up Appointments Added Follow Up ?Time Frame ?Comments Maximo Morfin MD?1 to 2 weeks Post Discharge Care Discharge ?11/08/22 9:31:00 EDT Discharge Prescriptions ?ePrescribed, ??11/08/22 9:31:00 EDT Home Health Face to Face ^HomeHealthFTF Results Discharge Labs BLOOD BANK Blood Type B Positive ()?? 11/05/2022 02:15 Antibody Screen Negative ()?? 11/05/2022 02:15 ?? BLOOD COUNT & DIFF WBC 4.7 k/mm3 ()?? 11/08/2022 06:14 RBC 3.74 m/mm3 (Low)?? 11/08/2022 06:14 Hgb 10.4 Gm/dL (Low)?? 11/08/2022 06:14 Hct 33.3 % (Low)?? 11/08/2022 06:14 MCV 89.0 femtoliters ()?? 11/08/2022 06:14 MCH 27.8 pg ()?? 11/08/2022 06:14 MCHC 31.2 g/dL (Low)?? 11/08/2022 06:14 Platelet Count 274 k/mm3 ()?? 11/08/2022 06:14 RDW-SD 45.2 femtoliters ()?? 11/08/2022 06:14 MPV 10.1 femtoliters ()?? 11/08/2022 06:14 Nucleated RBC (Automated) 0.0 #/100 WBC'S ()?? 11/08/2022 06:14 Abs. NRBC 0.0 k/mm3 ()?? 11/08/2022 06:14 Abs. Neut 6.0 k/mm3 ()?? 11/05/2022 02:25 Abs. Lymph 1.0 k/mm3 ()?? 11/05/2022 02:25 Abs. Sussex 0.2 k/mm3 (Low)?? 11/05/2022 02:25 Abs. Eo 0.0 k/mm3 ()?? 11/05/2022 02:25 Abs. Baso 0.0 k/mm3 ()?? 11/05/2022 02:25 Neut % 82.6 % (High)?? 11/05/2022 02:25 Lymph % 13.7 % (Low)?? 11/05/2022 02:25 Sussex % 2.6 % (Low)?? 11/05/2022 02:25 Eos % 0.0 % ()?? 11/05/2022 02:25 Baso % 0.3 % ()?? 11/05/2022 02:25 Imm Gran 0.8 % ()?? 11/05/2022 02:25 Abs. Imm Gran 0.1 k/mm3 ()?? 11/05/2022 02:25 ?? CHEM GENERAL Sodium 142 mmol/L ()?? 11/05/2022 02:25 Potassium 4.0 mmol/L ()?? 11/05/2022 02:25 Chloride 98 mmol/L ()?? 11/05/2022 02:25 Bicarbonate Level 32 mmol/L (High)?? 11/05/2022 02:25 Anion Gap 12 ()?? 11/05/2022 02:25 Glucose Level 144 mg/dL (High)?? 11/05/2022 02:25 Glucose, POC 145 mg/dL (High)?? 11/05/2022 02:26 BUN 28 mg/dL (High)?? 11/05/2022 02:25 Creatinine-Blood 0.9 mg/dL ()?? 11/05/2022 02:25 Estimated GFR Creatinine 101 ML/MIN/1.73 M2 ()?? 11/05/2022 02:25 Calcium 9.7 mg/dL ()?? 11/05/2022 02:25 Protein, Total 7.0 Gm/dL ()?? 11/05/2022 02:25 Albumin 4.4 Gm/dL ()?? 11/05/2022 02:25 AG Ratio 1.7 ()?? 11/05/2022 02:25 Alkaline Phosphatase 88 units/L ()?? 11/05/2022 02:25 Lipase 17 units/L ()?? 11/05/2022 02:25 AST (SGOT) 25 units/L ()?? 11/05/2022 02:25 ALT (SGPT) 14 units/L ()?? 11/05/2022 02:25 Bilirubin, Total 0.5 mg/dL ()?? 11/05/2022 02:25 Lactate 1.5 mmol/L ()?? 11/05/2022 02:32 ?? COAG INR 1.0 ()?? 11/05/2022 02:25 Protime (PT) 11.0 seconds ()?? 11/05/2022 02:25 APTT 69.9 seconds (High)?? 11/08/2022 06:14 ? MISC. CHEMISTRY Hold Gel Top SPECIMEN DISCARDED AFTER 1 WEEK ()?? 11/07/2022 02:31 ? TOXICOLOGY/TDM Ethanol, Serum or Plasma NONE DETECTED mg/dL ()?? 11/05/2022 02:25 ? URINE OTHER Est Creatinine Clearance 94.40 mL/min ()?? 11/05/2022 16:29 ? VIROLOGY COVID-19 by RT-PCR NEGATIVE ()?? 11/05/2022 02:25 ? Procedures(s) ?GG EGD ?? 11/06/2022 11:00 ?erosive oesophagitis to lower third of the oesophagus ? Imaging(s) ?CT Abd/Pelvis W/ IV Contrast Only ?? 11/05/2022 03:48??by Aramis Levin MD ? FINDINGS: ?? Repulping Supervisor View Findings, Lines and Tubes: None. ?? Visualized Chest: Bibasilar atelectasis. No pleural effusion. The heart is normal in size. No pericardial effusion. ?? Diaphragm: Normal. ?? Liver: Multiple subcentimeter circumscribed low-density lesions likely represent cysts (in the absence of known malignancy). ?? Gallbladder: No CT evidence of gallbladder pathology. ?? Bile ducts: No biliary ductal dilation. ?? Spleen: Normal. ?? Pancreas: Parenchymal calcifications. No suspicious ductal dilation. ?? Adrenal glands: Normal. ?? Kidneys and ureters: Contrast seen within the collecting system. No hydronephrosis, stones, or suspicious masses. Simple appearing renal cysts are noted, requiring no dedicated follow up. ?? Bladder: Distended with contrast. ?? Reproductive organs: Unremarkable. ?? Stomach, small bowel, and large bowel: Concentric thickening of the distal esophagus with a type I hiatal hernia. No evidence of obstruction or inflammation. No evidence of bowel perforation. ?? Appendix: Normal. ?? Peritoneum and retroperitoneum: No ascites or pneumoperitoneum. No omental or mesenteric lesions. ?? Lymph nodes: No enlarged lymph nodes. ?? Blood vessels: Moderate atherosclerotic vascular calcification. No aortic aneurysm. No evidence of venous thrombosis. No evidence of upper abdominal varices. ?? Abdominal and pelvic wall: Small fat-containing umbilical hernia. ?? Bones: Stable appearance of spinal hardware without evidence of failure. Status post right hip arthroplasty. Multiple right rib fixations. Compression deformity of L1 to No acute abnormality. ?? IMPRESSION: ?? Redemonstrated is a type I hiatal hernia with moderate circumferential thickening of the distal esophagus. Recommend nonemergent GI consultation for endoscopy. Or if acutely bleeding can consider urgent consultation. ?? No other acute process within the abdomen/pelvis. ? Consults(s) ?Consultation Note ?? 11/05/2022 09:48??by Serg Soto MD ?GI ? 35_ minutes spent on discharge * Elizabeth Chung RN: PERFORM Event Display: Patient Education/Instruction Authored Date: [id number] Inpatient Adult Discharge Instructions [address] [address] Name: MELISSA LOMBARDO : 1965 Visit: 11/05/2022 16:24:00 Current Date: 11/08/2022 10:55 Account: [id number] Inpatient Adult Discharge Instructions We would like [...] and their families. Surveys are administered by [employer] ?? If further treatment with your primary care physician or another doctor is recommended, it is important for you to keep the appointment. Call your primary care physician or return to the Emergency Department immediately if your condition worsens, fails to improve, or new symptoms develop. If you need to find a doctor, you can call [facility] [employer] for a referral at [phone] or toll free at [phone] ([phone] or log in to [email or web address].. ?? You can view and manage your care through the patient portal or by using a health care citlaly of your choosing. [employer] is a website that allows you to securely view your medical information including your hospital discharge summary, office visit summaries, medications and follow-up visits. You can also request appointments, renew medications, and request access to your medical information using a health care citlaly of your choosing, or just ask a question. You can enroll at [email or web address] or register during your next office visit. You have been discharged from [facility], Patient Care Unit: W3. If you have any questions regarding these instructions after you leave, please call us and we will be happy to assist you. [facility] Your Care Team Attending Physician Rl BELTRÁN, Quan Cordero Consulting Providers Charles BELTRÁN, Serg Discharging Providers Rl BELTRÁN, Quan Cordero Reason for Your Visit Abdominal pain. Coffee ground emesis Your Diagnosis Erosive esophagitis Vomiting Tests Performed Below is a partial list of the tests performed during your hospitalization. You may have had other tests and procedures not included in this list. Please discuss all test results with your provider. Alcohol Level APTT CBC CBC w/ Differential Comprehensive Metabolic Panel COVID-19 (Novel Coronavirus), Rapid PCR GLUCOSE POC HOLD GEL TUBE INR Lactate Level Lipase Type and Screen CT Abd/Pelvis W/ IV Contrast Only Primary Care Provider Not on Staff, PCP Advance Directive Patient has a Designated Caregiver: No Discharge Vitals Temperature: 98.1 DegF Height: 180 cm Pulse Rate: 60 bpm Weight: 74.6 kg Respiratory Rate: 18 br/min Body Mass Index: 23.02 kg/m2 Respiratory Rate: 18 br/min Body surface area: 1.93 Systolic Blood Pressure:??157 mm Hg??High ?? Diastolic Blood Pressure:??87 mm Hg??High ?? Oxygen Saturation: 95 % ?? Studies Pending All tests and labs ordered during this hospital stay have been completed unless listed below. Please discuss all pending results with your provider listed above in these instructions. ?? CBC What to do next Instructions From Your Doctor Discharge Orders You Need to Schedule the Following Appointments Follow Up with??Maximo Morfin MD When??Within 1 to 2 weeks Where: [address] [place] [phone] (1) Discharge Medications GRUPO MELISSA :1965 Visit Date:11/05/2022 Medications: Please continue your medications until treatment is completed or stopped by your provider. Medications not listed below should be discontinued. Discuss any questions related to medications with your provider. What How Much When Instructions Next Dose New Nicotine (Nicoderm C-Q 7 mg/ 24 hr transdermal film, extended release) 1 patch(es) Topically Daily Duration: [address] [facility] 11/09 @ 9am New Ondansetron (ondansetron 4 mg oral tablet, disintegrating) 1 tab(s) Oral 3 times a day as needed for Nausea & Vomiting Duration: [address] [facility] take as ordered Changed Pantoprazole (pantoprazole 40 mg oral delayed release tablet) 1 tab(s) Oral Twice a day Pickup at [facility] 11/08 9am Unchanged Acamprosate (acamprosate 333 mg oral delayed release tablet) 2 tab(s) Oral 3 times a day TAKE 2 TABLETS BY MOUTH THREE TIMES DAILY ?? today at 3pm Unchanged Acetaminophen (acetaminophen 500 mg oral tablet) 2 tab(s) Oral Every 6 hours take as ordered Unchanged apixaban (apixaban Starter Pack 5 mg oral tablet) 2 tab(s) Oral Twice a day Duration: 7 Days followed by 1 tablet by mouth twice daily for 23 days ?? tonight at 9pm Unchanged Duloxetine (duloxetine 30 mg oral enteric coated capsule) 1 capsule Oral Twice a day tonight at 9pm Unchanged Folic Acid (folic acid 1 mg oral tablet) 1 tab(s) Oral Daily 11/09 @ 9am Unchanged Gabapentin (gabapentin 300 mg oral capsule) 1 capsule Oral 3 times a day today at 3pm Unchanged Lisinopril (lisinopril 10 mg oral tablet) 1 tab(s) Oral Daily 11/09 @ 9am Unchanged Melatonin (Melatonin 5 mg oral tablet) 1 tab(s) Oral Daily at Bedtime as needed for for insomnia tonight at bedtime Unchanged Multivitamin (multivitamin Multiple Vitamins oral tablet) 1 tab(s) Oral Daily 11/09 @ 9am Unchanged Thiamine (thiamine 100 mg oral tablet) 1 tab(s) Oral Daily 11/09 @ 9am Pharmacy Information [facility]: [address] [place] [address] [phone] Test Results Below is a partial list of the most recent Laboratory test results done prior to this discharge. You may have had other tests and procedures not included in this list. Please discuss all test resultswith your provider. Est Creatinine Clearance - 94.40 mL/min (11/05/2022) Alcohol Level (11/05/2022) ???Ethanol, Serum or Plasma - NONE DETECTED APTT (11/08/2022) ???APTT - 69.9 seconds CBC (11/08/2022) ???WBC - 4.7 k/mm3???RBC - 3.74 m/mm3???Hgb - 10.4 Gm/dL???Hct - 33.3 %???MCV - 89.0 femtoliters???MCH - 27.8 pg???MCHC - 31.2 g/dL???Platelet Count - 274 k/mm3???RDW-SD - 45.2 femtoliters???MPV - 10.1 femtoliters???Nucleated RBC (Automated) - 0.0 #/100 WBC'S???Abs. NRBC - 0.0 k/mm3 CBC w/ Differential (11/05/2022) ???WBC - 7.2 k/mm3???RBC - 3.92 m/mm3???Hgb - 11.0 Gm/dL???Hct - 34.5 %???MCV - 88.0 femtoliters???MCH - 28.1 pg???MCHC - 31.9 g/dL???Platelet Count - 281 k/mm3???RDW-SD - 46.9 femtoliters???MPV - 10.0 femtoliters???Nucleated RBC (Automated) - 0.0 #/100 WBC'S???Abs. NRBC - 0.0 k/mm3???Abs. Neut - 6.0 k/mm3???Abs. Lymph - 1.0 k/mm3???Abs. Sussex - 0.2 k/mm3???Abs. Eo - 0.0 k/mm3???Abs. Baso - 0.0 k/mm3???Neut % - 82.6 %???Lymph % - 13.7 %???Sussex % - 2.6 %???Eos % - 0.0 %???Baso % - 0.3 %???Imm Gran - 0.8 %???Abs. Imm Gran - 0.1 k/mm3 Comprehensive Metabolic Panel (11/05/2022) ???Sodium - 142 mmol/L???Potassium - 4.0 mmol/L???Chloride - 98 mmol/L???Bicarbonate Level - 32 mmol/L???Anion Gap - 12???Glucose Level - 144 mg/dL???BUN - 28 mg/dL???Creatinine-Blood - 0.9 mg/dL???Estimated GFR Creatinine - 101 ML/MIN/1.73 M2???Calcium - 9.7 mg/dL???Protein, Total - 7.0 Gm/dL???Alb umin - 4.4 Gm/dL???AG Ratio - 1.7???Alkaline Phosphatase - 88 units/L???AST (SGOT) - 25 units/L???ALT (SGPT) - 14 units/L???Bilirubin, Total - 0.5 mg/dL COVID-19 (Novel Coronavirus), Rapid PCR (11/05/2022) ???COVID-19 by RT-PCR - NEGATIVE GLUCOSE POC (11/05/2022) ???Glucose, POC - 145 mg/dL HOLD GEL TUBE (11/07/2022) ???Hold Gel Top - SPECIMEN DISCARDED AFTER 1 WEEK INR (11/05/2022) ???INR - 1.0???Protime (PT) - 11.0 seconds Lactate Level (11/05/2022) ???Lactate - 1.5 mmol/L Lipase (11/05/2022) ???Lipase - 17 units/L Type and Screen (11/05/2022) ???Blood Type - B Positive???Antibody Screen - Negative Allergies (NKA means No Known Allergies) Bee [...] Educational Leaflet Providered with your Discharge Instructions. Alcoholism: Getting Help?? Pantoprazole Delayed Release Oral Tablet?? Esophagitis?? Valuables and Belongings I fully understand and agree that [facility] accepts no responsibility for all my personal [...] of Valuable and Belonging List: With patient Possessions released to: No ??Medical ??Advices Date for Pt to Sign Valuables/Belongings: 11/05/22 18:03:00 ?? Other Discharge Information ? Pulmonary Rehab Status?? Pulmonary Rehab Discharge Status?? Respiratory Rate: 18 br/min Respiratory Rate: 18 br/min ? Common Emergency [...] are strongly encouraged to quit. Please call [facility] [employer] [facility] at [phone] or [phone] ([phone]) or log in to [email or web address] for referrals to smoking cessation programs. ?? 988 Suicide & Crisis Lifeline is available 01/02 if you or someone you know needs to find a reason to keep living. By calling 798 you'll be connected to a skilled, trained counselor at a crisis center in your area. INPATIENT DISCHARGE INSTRUCTIONS SIGNATURE PAGE MELISSA LOMBARDO Location:[facility] Registration Date and Time:11/05/2022 16:24 EDT Primary Care Physician: Not on Staff, PCP I MELISSA LOMBARDO, have received the above patient education materials/instructions and have verbalized understanding. If ambulance or transport services are being used I further acknowledge being given a choice of service. ?? If you need to contact me, please call me at this number: . Patient/Barrel Raiser Helper Name: Patient/Barrel Raiser Helper Signature: Relationship to Patient: Witness Name/Signature: Date: * Quan Shine MD: PERFORM, SIGN, VERIFY Event Display: Patient Education Handout Authored Date: [id number] * Elizabeth Chung RN: PERFORM Event Display: Patient Education Leaflets Authored Date: Upper Gastrointestinal (GI) Bleeding, Stable ?? [id number] Upper Gastrointestinal (GI) Bleeding, Stable Your upper gastrointestinal (GI) tract includes your esophagus, stomach, and upper small intestine.??You have signs of bleeding from your upper GI??tract. You may have vomited or coughed up blood or coffee-ground like material. Or you may have black or tarry stools.??Very small amounts of GI bleeding may not be visible and can only be found by a test of the stool. Causes of upper GI bleeding can include: ??? Tear in the lining of the esophagus ??? Enlarged veins in the esophagus or stomach, especially in someone with cirrhosis ??? An ulcer in the stomach or top of the small intestine ??? Severe irritation of the stomach ??? Inflammation of the digestive tract ??? Abnormal growth (tumor) of the upper digestive tract A bloody nose or mouth or dental problems may cause you to swallow blood. You may vomit this blood up. This is not true GI bleeding.??Iron supplements and medicines for diarrhea and upset stomach cancause black stools.??This is not GI bleeding and is not a cause for concern. Home care You've had an assessment for your bleeding. You will need to continue your care at home. Depending on the cause of your bleeding, care may include: ??? You may be given medicines to help protect yourGI tract, treat your problem, and help with healing. Take these as directed. Call your provider if you have questions about your medicines or side effects that concern you. ??? Sometimes tests such as endoscopy may also be used to stop bleeding. An endoscope is a thin flexible tube with a light arabella camera on the tip that is put into your stomach through your throat (esophagus). ??? Don't take NSAIDs, such as aspirin, ibuprofen, or naproxen. They can irritate the stomach and cause more bleeding. If you are taking these medicines for other reasons, talk with your provider before you stop them.? If you are on blood thinners, discuss the treatment plan with your provider. ??? Don't use alcohol, caffeine, or tobacco. These can delay healing and make your problem worse. If you have trouble stopping any of these things, ask your provider for treatment resources. ?? Follow-up care Follow up with your healthcare provider as advised. You may need more tests to find??the cause of your bleeding. ?? When to seek medical advice Call your healthcare provider right away??for any of the following: ??? Stomach pain starts or getsworse ??? Pain spreads to the neck, back, shoulder, or arm ??? Weakness or dizziness ??? Swelling of your belly ??? Red blood in your stool ??? Fever of 100.4??F (38??C) or higher, or as directed by your healthcare provider ??? New symptoms ?? Call 911 Call 911 if any of these occur: ??? Trouble breathing or swallowing ??? Severe dizziness ??? Loss of consciousness ??? Vomiting blood that is not related to a bloody nose or a dental procedure ??? Large amounts of blood in the stool ??? Black, tarry stool ??? Chest pain or lightheadedness ?? Last Reviewed Date: 2021 ?? 8496-3440 [employer]. All rights reserved. This information is not intended as a substitute for professional medical care. Always follow your healthcare professional's instructions. ?? * Elizabeth Chung RN: PERFORM Event Display: Patient Education Leaflets Authored Date: [id number] Life After Combat: Coping with Alcohol Abuse ?? 89151 Life After Combat: Coping with Alcohol Abuse Many people drink to relax and unwind. Alcohol can briefly relieve stress and help you forget your problems. In fact, it???s common to turn to alcohol to deal with the stress of being deployed and incombat. Your drinking habits may have changed while you were deployed. Or maybe you???re drinking more now as you adjust to being home. As long as you stay in control, there may be nothing??wrong with having a??drink to enjoy yourself and galaviz with friends every now and again. But when you start tolose control of your drinking, alcohol use turns into misuse or an alcohol use disorder. You may also hear this called alcohol abuse. This can cause major problems in your life and your relationships. This sheet will help you see if you have a problem. It will also give you strategies to regain control over your drinking. Does this sound like you? These questions can help you take a closer look at your drinking: ??? Are you drinking more than you want to? Have you ever thought you should cut down? Do you feel annoyed when people criticize or comment on your drinking? Have you ever felt embarrassed orguilty about your drinking? Have you ever had a drink first thing in the morning? Has your drinking gotten you into trouble at work or at home? Do you hide your drinking from friends and family? If you answered yes to one or more of these questions, it???s time to make a change. ?? How an alcohol problem develops Not everyone who drinks has a problem. But for some people, what starts as social use can lead to abuse and then addiction. Can you see yourself in any of these stages? Social use???you can take it or leave it. You may have a drink at a alliance party. Or a glass of wine with dinner. You???re able to put down a drink without finishing it. And you can enjoy yourself at a social event without drinking. You can choose to say yes or no to a drink at any time. ??? Abuse???you???re drinking more than you used to. Drinking becomes a problem when you begin to lose control. You need to drink more to get the same feeling. You may choose to drink instead of spending time with your family. You may drink just to get drunk. Or you drink so much that you black out. Money, job, or relationship problems start.You may try to stop drinking and find that you can???t. ??? Addiction???you???ve become dependent. You have little or no control over your drinking. Alcohol is controlling you. You feel like you can?? ?t get along without it. You plan your activities around drinking. You feel angry or anxious if youcan???t drink. ?? How problem drinking affects your life An alcohol problem doesn???t only hurt you. It also hurts the people who care about you. You may have a great time spending a night out with your buddies. But how does your spouse react when you comehome late and drunk? When you drink, do you behave in ways that scare your children or push away your friends? Would you rather drink alone than play with your children or talk to your spouse? Has dri nking or being hungover made it hard to keep your job? Have you ever driven while drunk? You may think you have drinking under control. But if alcohol is causing these types of problems, you don???t. And the problems will only get worse unless you make a change. It takes courage and honesty to admit you???re abusing alcohol. Once you do, there are many programs and people who can help you regain control. ?? Are you self-medicating? Drinking is a way to escape life???s problems. People returning from combat have a unique set of problems that they may try to escape. Many people drink before bed to help them sleep. Or you could bedrinking to ease the pain caused by post- traumatic stress disorder (PTSD), anxiety, depression, or other mental or physical health issues. If you have been diagnosed with a condition that???s relatedto your drinking, get treatment. If you haven???t, talk with your healthcare provider about any symptoms you have. Or any issues you???re trying to work through on your own. Addressing the reason foryour drinking can help you regain control. ?? Make changes to regain control of your drinking By changing how you think about and use alcohol, problem drinking can sometimes be brought under control.??Making changes now may help prevent you from developing an addiction (also known as alcohol dependence). Programs and resources are available to help you make these changes. Talk with your [facility] provider or someone at the [facility] about your options. Visit MentalHealth.gov or the Veterans Crisis Line at www.veteranscrisisline.net to reach caring, qualified responders. The Veterans Crisis Line is confidential and available every day online or at 786-022-2536, option 1. You can also text 592556 for support. Steps to bring your drinking under control may include: ??? Setting goals for your drinking. For example, you may set a goal to have no more than 1 or 2 drinks per day. Or to drink no more than 3 days a week. Reward yourself for meeting these goals???but not with alcohol! ??? Identifying when you drink. Make a list of situations that make you want a drink. Then come up with new ways to handle them that don???t mean drinking alcohol. Or stay away from these situations altogether. ??? Not drinking for a set amount of time. This doesn???t mean you need to stop forever. But take some time off???maybe 30 days???and see how you feel. Your views on alcohol may change during this time. ??? Learningto drink in moderation. Many people can enjoy alcohol without getting smashed. Drinking in moderation includes keeping track of how many drinks you???ve had. It means slowing down so you don???t haveso many in a row. It means refusing drinks when you???ve had enough or when you???re taking a break. And it means eating before or while drinking so you don???t get as drunk. ??? Drinking responsibly. When you do choose to drink, don???t put yourself or others at risk. Driving drunk or getting intofights are two examples of how drinking can turn dangerous. Responsible drinking means staying aware of how buzzed you are. It also means getting out of a situation before it turns bad. ?? Further treatment Some people choose to control their drinking by quitting completely (abstinence). There are many types of programs to help you do this. All offer some kind of counseling. Some include medical treatment. Treatment for alcohol addiction is often done in a group setting. But it can also be one-on-one.It can include the following: ??? Counseling involves meeting with a trained professional to talk about your drinking. You???ll learn to cope with your drinking problem. This can help you limit or quit drinking. ??? Twelve-step programs such as Alcoholics Anonymous (AA) are free support groups thatguide you through a recovery process. SMART Recovery, also called Self-Management and Recovery Training, is another option. Many [facility] also offer free support groups. Talk with your healthcare provider about support programs. ??? Treatment centers are facilities where you get health management and counseling during the early stages of recovery. Some are live-in and some are day (outpatient) programs. ??? Medicines may be prescribed to help you reach your goal of abstinence. Naltrexone, acamprosate, and disulfiram are all medicines that can help??with abstinence when they are used along with counseling. ?? If you???re using other substances The description of alcohol abuse on this sheet also applies to any other drug you may be using. This includes tobacco, marijuana, or prescription medicine that isn???t being used as prescribed. If you have a substance use problem, you???re not alone. With treatment, you can overcome the problem andgo on to lead a healthy, drug-free life. The first step is admitting that you need help. Talk with your healthcare provider to find a treatment option that meets your needs. ?? Last Reviewed Date: 2022 ?? 0498-2251 [employer]. All rights reserved. This information is not intended as a substitute for professional medical care. Always follow your healthcare professional's instructions. ?? * Elizabeth Chung RN: PERFORM Event Display: Patient Education Leaflets Authored Date: [id number] Ondansetron Disintegrating Oral Tablet ?? [address] Ondansetron Disintegrating Oral Tablet Uses For nausea or vomiting. ?? Instructions Let the medicine dissolve on your tongue and then swallow. Keep the medicine at room temperature. Avoid heat and direct light. Tell your doctor if you have severe or persistent sweating, diarrhea or vomiting. These can increase your risk of a serious side effect. If you are using this medicine regularly, it is important to take each dose of medicine on time. Keep taking the medicine even if you feel well. If you forget to take a dose on time, take it as soon as you remember. If it is almost time for thenext dose, do not take the missed dose. Return to your normal schedule. Do not take 2 doses at one time. Drug interactions can change how medicines work or increase risk for side effects. Tell your healthcare providers about all medicines taken. Include prescription and jmvj-gdl-wiatlhy medicines, vitamins, and herbal medicines. Speak with your doctor or pharmacist before starting or stopping any medicine. Tell your doctor if symptoms do not get better or if they get worse. Keep all appointments for medical exams and tests while on this medicine. ?? Cautions Tell your doctor and pharmacist if you ever had an allergic reaction to a medicine. Some patients taking this medicine have experienced serious side effects. Please speak with your doctor to understand the risks and benefits associated with this medicine. Do not use the medication any more than instructed. Please check with your doctor before drinking alcohol while on this medicine. Call the doctor if there are any signs of confusion or unusual changes in behavior. Tell the doctor or pharmacist if you are , planning to be , or . Do not take Edgemont's wort while on this medicine. Do not share this medicine with anyone who has not been prescribed this medicine. ?? Side Effects The following is a list of some common side effects from this medicine. Please speak with your doctor about what you should do if you experience these or other side effects. ??? constipation ??? dizziness or drowsiness ??? lack of energy and tiredness ??? headaches Call your doctor or get medical help right away if you notice any of these more serious side effects: ??? agitated feeling or trouble sleeping ??? loss of balance ??? diarrhea ??? fainting ??? fever ??? hallucinations (unusual thoughts, seeing or hearing things that are not real) ??? fast or irregular heart beats ??? muscle aches, spasms or abnormal movements ??? muscle trembling ??? stomach pain ??? blurring or changes of vision ??? severe or persistent vomiting A few people may have an allergic reaction to this medicine. Symptoms can include difficulty breathing, skin rash, itching, swelling, or severe dizziness. If you notice any of these symptoms, seek medical help quickly. ?? Extra Please speak with your doctor, nurse, or pharmacist if you have any questions about this medicine. ?? [email or web address] IMPORTANT NOTE: This document tells you briefly how to take your medicine, but it does not tell youall there is to know about it. Your doctor or pharmacist may give you other documents about your medicine. Please talk to them if you have any questions. Always follow their advice. There is a more complete description of this medicine available in Hungarian. Scan this code on your smartphone or tablet or use the web address below. You can also ask your pharmacist for a printout. If you have any questions, please ask your pharmacist. The display and use of this drug information is subject to Terms of Use. Copyright(c) 2022 [employer]. ?? [employer]. All rights reserved. This information is not intended as a substitute for professional medical care. Always follow your healthcare professional's instructions. ?? CT Abdomen and Pelvis W contrast IV * [facility] , CIS S: TRANSCRIAramis Rocha MD: VERIFY Marycruz Hamilton DO: SIGN Event Display: Result: Authored Date: [id number] CT Abd/Pelvis W/ IV Contrast Only Hx of Present Illness: pt had PE recenty and was dc with Eliquis. pt now having episodes of vomiting blood for 30 min; Reason: abdominal pain; Clinical Question(s): Bowel Perforation; upper GI bleed TECHNIQUE: Spiral CT through the abdomen and pelvis with IV contrast formatted in 3 planes. 100 cc of Omnipaque 300 was administered intravenously. This study was performed without oral contrast. Weight-based protocol using automatic tube modulation was used to optimize exposure parameters. CTDIvol Body: 15.00 mGy, DLP Body: 758 mGy*cm. COMPARISON: 08/07/2022 FINDINGS: Repulping Supervisor View Findings, Lines and Tubes: None. Visualized Chest: Bibasilar atelectasis. No pleural effusion. The heart is normal in size. No pericardial effusion. Diaphragm: Normal. Liver: Multiple subcentimeter circumscribed low-density lesions likely represent cysts (in the absence of known malignancy). Gallbladder: No CT evidence of gallbladder pathology. Bile ducts: No biliary ductal dilation. Spleen: Normal. Pancreas: Parenchymal calcifications. No suspicious ductal dilation. Adrenal glands: Normal. Kidneys and ureters: Contrast seen within the collecting system. No hydronephrosis, stones, or suspicious masses. Simple appearing renal cysts are noted, requiring no dedicated follow up. Bladder: Distended with contrast. Reproductive organs: Unremarkable. Stomach, small bowel, and large bowel: Concentric thickening of the distal esophagus with a type I hiatal hernia. No evidence of obstruction or inflammation. No evidence of bowel perforation. Appendix: Normal. Peritoneum and retroperitoneum: No ascites or pneumoperitoneum. No omental or mesenteric lesions. Lymph nodes: No enlarged lymph nodes. Blood vessels: Moderate atherosclerotic vascular calcification. No aortic aneurysm. No evidence of venous thrombosis. No evidence of upper abdominal varices. Abdominal and pelvic wall: Small fat-containing umbilical hernia. Bones: Stable appearance of spinal hardware without evidence of failure. Status post right hip arthroplasty. Multiple right rib fixations. Compression deformity of L1 to No acute abnormality. IMPRESSION: Redemonstrated is a type I hiatal hernia with moderate circumferential thickening of the distal esophagus. Recommend nonemergent GI consultation for endoscopy. Or if acutely bleeding can consider urgent consultation. No other acute process within the abdomen/pelvis. Findings communicated to MARTHA Simmons at 4:09 AM on 11/05/2022. I have personally reviewed the images and I agree with this report. WSN: [id number] Ordering Physician: Estephania Mcmillan Dictated By: Marycruz Hamilton DO Dictated Date/Time: 11/05/22 7:51 am Reviewed By: Aramis Levin MD Signed By: Aramis Levin MD Signed Date/Time: 11/05/22 7:56 am Transcribed By: MARC Transcribed Date/Time: 11/05/22 4:11 am Patient Care team information Care Team Personnel Name: Unique Dubon RN Position: [facility] RN Member Role: Primary Care Nurse Name: Kadi Oliver RN Position: [facility] AMB Nurse Member Role: Primary Care Nurse Name: Mary Roberson RN Position: [facility] SN RN Member Role: Primary Care Nurse Name: Daniel Rodriguez RN Position: [facility] RN Member Role: Primary Care Nurse Name: Liz Sweet RN Position: [facility] RN Member Role: Primary Care Nurse Name: Toyin Contreras RN Position: [facility] Onco RN Member Role: Primary Care Nurse Name: Not on Staff, PCP Position: [facility] Physician (General Medicine) Member Role: PCP Name: Tierra Juan RN Position: [facility] SN RN Member Role: Primary Care Nurse Name: Veena Arthur RN Position: [facility] RN Member Role: Primary Care Nurse Name: Toshia Arce RN Position: [facility] RN Member Role: Primary Care Nurse Name: Velia Shepherd RN Position: [facility] RN Member Role: Primary Care Nurse Name: Shelby Boothe RN Position: [facility] PCO w/OE and EZ Script Member Role: Primary Care Nurse Name: Francoise Whaley RN Position: [facility] Hospital Rail Layer Member Role: Primary Care Nurse Name: Sheldon HUSSEIN, Elizabeth Position: [facility] RN Member Role: Primary Care Nurse Name: *Ron BARNES Attending Position: [facility] ED Medicine MD Name: Dixie Arizmendi RN Position: [facility] ED RN W/OE and Tasks Member Role: Patient Care Provider Name: Eleuterio Wolfe Position: [facility] ED TA [facility] Member Role: Patient Care Provider Care Team Related Persons Name: OPAL AMBRIZ Address: [address] [address] Name: QUAN LOMBARDO Name: AMOS LOMBARDO Address: [place] [address]
--- OUTSIDE RECORDS SUMMARY | 2023-05-03 21:44 | XMS_ITS | Continuity of Care Document ---
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 Name Role Phone Not on Staff, PCP Primary Care Physician Unavail able Encounter [facility] Date(s): 08/07/22 - 08/09/[address] [address]- Encounter Diagnosis Hypotension(Final) - 08/07/22 KOSTA (acute kidney injury)(Final) - 08/07/22 Discharge Disposition: Disch/Trans to Rehab or unit w/in Hos Attending Physician: Rodolfo Hwang MD Admitting Physician: Tawnya Gilmore MD Referring Physician: Not on Staff, Referring MD Allergies, Adverse Reactions, Alerts Substance Reaction Severity Status Bee Stings Active Immunizations Given and Recorded Vaccine Date Status Refusal Reason tetanus/diphtheria/pertussis, acel(Tdap) 09/30/13 Given pneumococcal 23-valent vaccine 02/26/11 Given Diphth-Tetanus Toxoids Adsorbed(oldterm) 05/17/06 Given Medications duloxetine 30 mg oral enteric coated capsule 1 capsule = 30 mg, By Mouth, 2 times a day, # 60 capsule, 0 Refills, Maintenance, 08/08/22 3:48:00 EST, EC Capsule, Partial fill upon patient request if the prescription is for a schedule II opioid drug. Start Date: 08/08/22 Status: Ordered gabapentin 300 mg oral capsule 300 mg, Capsule, By Mouth, home dose, 08/09/22 9:00:00 EST Start Date: 08/09/22 Stop Date: 08/09/22 Status: Completed gabapentin 300 mg oral capsule 300 mg, 1, capsule, By Mouth, 3 times a day, # 270 capsule, Refills 0, Maintenance, 08/08/22 3:49:00 EST, Partial fill upon patient request if the prescription is for a schedule II opioid drug. Start Date: 08/08/22 Status: Ordered lisinopril 10 mg oral tablet 10 mg, Tablet, By Mouth, 08/09/22 9:00:00 EST Start Date: 08/09/22 Stop Date: 08/09/22 Status: Completed multivitamin Multiple Vitamins oral tablet 1 tablet, By Mouth, Daily, # 30 tablet, 0 Refills, Maintenance, 10/15/20 10:30:00 EDT, Tablet, [facility], Partial fill upon patient request if the prescription is for a schedule II opioid drug., 1 tablet By Mouth Daily, 180, cm, ... Start Date: 10/15/20 Status: Ordered pantoprazole 40 mg oral delayed release tablet 1 tablet = 40 mg, By Mouth, Daily, # 30 tablet, 0 Refills, Maintenance, 08/08/22 3:48:00 EST, EC Tablet Start Date: 08/08/22 Status: Ordered Problem List Condition Confirmation Course [...] 2 Confirmed Active 1aortic arc aneurysm Results Orders for Microbiology Reports Name Date Blood Culture 08/07/22 Blood Culture #2 08/07/22 Microbiology Reports TEST:Blood Culture STATUS:Unauthenticated BODY SITE: SOURCE:Blood COLLECTED DATE/TIME:08/07/22 7:50 PM Blood Culture SPECIMEN DESCRIPTION : BLOOD NONE SPECIAL REQUESTS : NONE CULTURE : NO GROWTH AFTER 48 HOURS REPORT STATUS : PRELIMINARY REPORT TEST:Blood Culture, Second Order STATUS:Unauthenticated BODY SITE: SOURCE:Blood COLLECTED DATE/TIME:08/07/22 7:49 PM Blood Culture, Second Order SPECIMEN DESCRIPTION : BLOOD NONE SPECIAL REQUESTS : NONE CULTURE : NO GROWTH AFTER 48 HOURS REPORT STATUS : PRELIMINARY REPORT Radiology Reports * Exam Date Time Procedure Performing Provider Status 08/07/22 7:[address] Cervical Spine W/O Contrast Isabel Guillory; Auth (Verified) Notes: (CT Cervical Spine W/O Contrast) Reason For Exam: Neck trauma, dangerous injury mechanism;Other: RESULT: CT Cervical Spine W/O Contrast CT Head/Brain W/O Contrast, CT Cervical Spine W/O Contrast INDICATION: Reason: Trauma; Clinical Question(s): Hematoma TECHNIQUE: Noncontrast head CT using axial technique was reconstructed in axial and coronal planes.Noncontrast spiral CT through the cervical spine was formatted in 3 planes. Automatic tube modulation was used for the cervical spine and iterative dose reconstruction was used for both the head and cervical spine to optimize scan parameters and image quality. CTDIvol Body: 23.31 mGy, DLP Body: 648 mGy*cm. CTDIvol Head: 44.82 mGy, DLP Head: 807 mGy*cm. COMPARISON: None. FINDINGS: Pharmacy Technologist View Findings, Lines and Tubes: None. BRAIN AND EXTRA-AXIAL SPACES: No parenchymal hemorrhage, midline shift, or mass effect. Gaines-white matter differentiation is wellpreserved. Chronic lacunar infarcts within the right frontal deep white matter and right caudate head. No CT signs of acute infarct. Negative insular ribbon sign. Atherosclerotic vascular calcification of the carotid arteries but negative hyperdense vessel sign. Mild prominence of the ventricles and sulci consistent with parenchymal volume loss. Mild low-density white matter changes. No subarachnoid hemorrhage. No subdural or epidural collection. CALVARIUM, SKULL BASE, AND SOFT TISSUES: No fractures or suspicious bony lesions. Mucous retention cyst within the right maxillary sinus. The mastoid air cells are clear. Visualized orbits and globes are intact. The extracranial soft tissues are unremarkable. CERVICAL SPINE: No fracture. No acute osseous abnormalities. Normal alignment. No locked or perched facet. Moderate multilevel degenerative disc space narrowingand end plate irregularity, most prominent at C5-C6. Incidental well-corticated calcification alongthe nuchal ligament. Calcifications along the ligamentum flavum noted at C6, unchanged. OTHER BONES: No acute abnormality. CERVICAL SOFT TISSUES AND LUNG APICES: Normal soft tissues. Scattered atherosclerotic vascular calcifications. Right palatine tonsilloliths. Visualized lung apices are clear. Punctate calcification within the right thyroid lobe without evidence of nodule, which does not require follow-up. IMPRESSION: No acute abnormality of the head or cervical spine. I have personally reviewed the images and I agree with this report. WSN: [id number] Ordering Physician: Suresh Gee Dictated By: Annalisa Garcia MD Dictated Date/Time: 08/07/22 8:04 pm Reviewed By: Valorie Markham MD Signed By: Valorie Markham MD Signed Date/Time: 08/07/22 8:09 pm Transcribed By: MARC Transcribed Date/Time: 08/07/22 7:53 pm * Exam Date Time Procedure Performing Provider Status 08/07/22 7:[address] Head/Brain W/O Contrast Glenn Guillory era; Auth (Verified) Notes: (CT Head/Brain W/O Contrast) Reason For Exam: Trauma RESULT: CT Head/Brain W/O Contrast CT Head/Brain W/O Contrast, CT Cervical Spine W/O Contrast INDICATION: Reason: Trauma; Clinical Question(s): Hematoma TECHNIQUE: Noncontrast head CT using axial technique was reconstructed in axial and coronal planes.Noncontrast spiral CT through the cervical spine was formatted in 3 planes. Automatic tube modulation was used for the cervical spine and iterative dose reconstruction was used for both the head and cervical spine to optimize scan parameters and image quality. CTDIvol Body: 23.31 mGy, DLP Body: 648 mGy*cm. CTDIvol Head: 44.82 mGy, DLP Head: 807 mGy*cm. COMPARISON: None. FINDINGS: Pharmacy Technologist View Findings, Lines and Tubes: None. BRAIN AND EXTRA-AXIAL SPACES: No parenchymal hemorrhage, midline shift, or mass effect. Gaines-white matter differentiation is wellpreserved. Chronic lacunar infarcts within the right frontal deep white matter and right caudate head. No CT signs of acute infarct. Negative insular ribbon sign. Atherosclerotic vascular calcification of the carotid arteries but negative hyperdense vessel sign. Mild prominence of the ventricles and sulci consistent with parenchymal volume loss. Mild low-density white matter changes. No subarachnoid hemorrhage. No subdural or epidural collection. CALVARIUM, SKULL BASE, AND SOFT TISSUES: No fractures or suspicious bony lesions. Mucous retention cyst within the right maxillary sinus. The mastoid air cells are clear. Visualized orbits and globes are intact. The extracranial soft tissues are unremarkable. CERVICAL SPINE: No fracture. No acute osseous abnormalities. Normal alignment. No locked or perched facet. Moderate multilevel degenerative disc space narrowingand end plate irregularity, most prominent at C5-C6. Incidental well-corticated calcification alongthe nuchal ligament. Calcifications along the ligamentum flavum noted at C6, unchanged. OTHER BONES: No acute abnormality. CERVICAL SOFT TISSUES AND LUNG APICES: Normal soft tissues. Scattered atherosclerotic vascular calcifications. Right palatine tonsilloliths. Visualized lung apices are clear. Punctate calcification within the right thyroid lobe without evidence of nodule, which does not require follow-up. IMPRESSION: No acute abnormality of the head or cervical spine. I have personally reviewed the images and I agree with this report. WSN: [id number] Ordering Physician: Suresh Gee Dictated By: Annalisa Garcia MD Dictated Date/Time: 08/07/22 8:04 pm Reviewed By: Valorie Markham MD Signed By: Valorie Markham MD Signed Date/Time: 08/07/22 8:09 pm Transcribed By: MARC Transcribed Date/Time: 08/07/22 7:53 pm * Exam Date Time Procedure Performing Provider Status 08/07/22 7:[address] Angio Abdomen and Pelvis Isabel Guillory; [place] (Verified) Notes: (CT Angio Abdomen and Pelvis) Reason For Exam: AAA, surveillance;Other: RESULT: CT Angio Abdomen and Pelvis EXAMINATION: CT Angio Chest, CT Angio Abdomen and Pelvis INDICATION: Reason: Other:; Aortic disease, nontraumatic; Clinical Question(s): Other:; AAA TECHNIQUE: Spiral CTA of the chest, abdomen, and pelvis was performed after rapid IV contrast administration without cardiac gating triggered by an JAMES on the aorta. Images are formatted in multiple planes using 2-D multiplanar and 3-D maximum intensity projection. 100 cc of Omnipaque 300 was administered intravenously. This study was performed without oral contrast. Weight-based protocol using automatic tube modulation was used to optimize exposure parameters. CTDIvol Body: 11.67 mGy, DLP Body: 569 mGy*cm. COMPARISONS: CT chest, 08/28/2012. CT lumbar spine, 07/24/2021. ANGIOGRAPHIC FINDINGS: Thoracic aorta: Mild atherosclerotic calcifications. Similar to the prior study of 08/28/2012, thereis a rim calcified saccular aneurysm at the level of ligamentum arteriosum, unchanged in size and morphology. This saccular aneurysm measures approximately 2.9 x 1.6 x 3.2 cm (measured on sagittal image 75 and coronal image 69). No aortic dissection, penetrating atherosclerotic ulcer, or intramuralhematoma. Normal three vessel arch, with mild atherosclerotic opacifications at the origins but no branch vessel stenosis. Pulmonary arteries: Normal in caliber. No evidence of central pulmonary embolism on this study performed without dedicated technique. Abdominal aorta: No aortic aneurysm or dissection. Moderate atherosclerotic calcification. Celiac axis: Patent. Mild calcification at the origin without stenosis. Moderate opacification of the tortuous splenic artery. Superior mesenteric artery: Patent. Mild calcification at the origin without stenosis. Right renal artery: Duplicated. Both right renal arteries are patent. Left renal artery: Atherosclerotic calcification at the origin with mild narrowing. Inferior mesenteric artery: Patent. Right common iliac artery: Patent. Moderate atherosclerotic calcification. Right internal iliac artery: Patent. Moderate atherosclerotic calcification. Right external iliac artery: Patent. Mild atherosclerotic calcification. Right common femoral artery: Patent. Mild atherosclerotic calcification Visualized right superficial and deep femoral arteries: Patent. Left common iliac artery: Patent. Mild vascular calcification. Left internal iliac artery: Patent. Mild atherosclerotic calcification. Left external iliac artery: Patent. Mild atherosclerotic calcification. Left common femoral artery: Patent. Mild atherosclerotic calcification. Visualized left superficial and deep femoral arteries: Patent. NON-ANGIOGRAPHIC FINDINGS: Pharmacy Technologist View Findings, Lines and Tubes: None. Trachea and Airways: Patent without evidence of tracheal or endobronchial lesion. Lungs and Pleura: Clear lungs. Mild emphysematous changes in the anterior upper lobes. No effusion or pneumothorax. Mediastinum and jamison: No mass or hematoma. No mediastinal or hilar lymphadenopathy. No esophageal abnormality. Partially imaged thyroid is unremarkable. Heart: Heart is normal in size. No pericardial effusion. Moderate coronary artery calcification. Chest Wall Soft Tissues: Normal. Diaphragm: No significant abnormality. Liver: Normal. Gallbladder: No CT evidence of gallbladder pathology. Bile ducts: No biliary ductal dilation. Spleen: Normal. Pancreas: Normal. Adrenal glands: Normal. Kidneys and ureters: No hydronephrosis, stones, or suspicious masses. Simple appearing left-sided renal cysts are noted, measuring 2.2 cm in the upper pole and 3 cm in the lower pole are noted, requiring no dedicated follow up. Bladder: Normal. Reproductive organs: Right testicle is retracted into the inguinal canal. Otherwise unremarkable. Stomach, small bowel, and large bowel: Normal in course and caliber. No obstruction or inflammatorychange.. Appendix: Normal. Peritoneum and retroperitoneum: No ascites or pneumoperitoneum. No omental or mesenteric lesions. Lymph nodes: No enlarged lymph nodes. Abdominal and pelvic wall: Small fat-containing umbilical hernia. Small areas of stranding of the subcutaneous fat of bilateral upper quadrants, nonspecific, possibly sequelae of injections. Bones: Status post surgical fixation of multiple right-sided rib fractures. Slight deformity of several left-sided ribs consistent with chronic fractures. Status post posterior fixation from L3 through S1, with bilateral pedicle screws and interlocking vertical rods at L3-L4, and interbody spacing devices at L4-5 and L5-S1. Prior right total hip arthroplasty. Irregularity of the right iliac bone likely chronic sequelae of prior trauma. No evidence of acute fracture. IMPRESSION: 1. No aortic dissection or other acute abnormality. 2. 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 WSN: [id number] Ordering Physician: Kami Suarez Dictated By: Valorie Markham MD Dictated Date/Time: 08/07/22 7:55 pm Reviewed By: Valorie Markham MD Signed By: Valorie Markham MD Signed Date/Time: 08/07/22 7:55 pm Transcribed By: MARC Transcribed Date/Time: 08/07/22 7:51 pm * Exam Date Time Procedure Performing Provider Status 08/07/22 7:[address] Angio Chest Isabel Guillory; Auth (V erified) Notes: (CT Angio Chest) Reason For Exam: Aortic disease, nontraumatic;Other: RESULT: CT Angio Chest EXAMINATION: CT Angio Chest, CT Angio Abdomen and Pelvis INDICATION: Reason: Other:; Aortic disease, nontraumatic; Clinical Question(s): Other:; AAA TECHNIQUE: Spiral CTA of the chest, abdomen, and pelvis was performed after rapid IV contrast administration without cardiac gating triggered by an JAMES on the aorta. Images are formatted in multiple planes using 2-D multiplanar and 3-D maximum intensity projection. 100 cc of Omnipaque 300 was administered intravenously. This study was performed without oral contrast. Weight-based protocol using automatic tube modulation was used to optimize exposure parameters. CTDIvol Body: 11.67 mGy, DLP Body: 569 mGy*cm. COMPARISONS: CT chest, 08/28/2012. CT lumbar spine, 07/24/2021. ANGIOGRAPHIC FINDINGS: Thoracic aorta: Mild atherosclerotic calcifications. Similar to the prior study of 08/28/2012, thereis a rim calcified saccular aneurysm at the level of ligamentum arteriosum, unchanged in size and morphology. This saccular aneurysm measures approximately 2.9 x 1.6 x 3.2 cm (measured on sagittal image 75 and coronal image 69). No aortic dissection, penetrating atherosclerotic ulcer, or intramuralhematoma. Normal three vessel arch, with mild atherosclerotic opacifications at the origins but no branch vessel stenosis. Pulmonary arteries: Normal in caliber. No evidence of central pulmonary embolism on this study performed without dedicated technique. Abdominal aorta: No aortic aneurysm or dissection. Moderate atherosclerotic calcification. Celiac axis: Patent. Mild calcification at the origin without stenosis. Moderate opacification of the tortuous splenic artery. Superior mesenteric artery: Patent. Mild calcification at the origin without stenosis. Right renal artery: Duplicated. Both right renal arteries are patent. Left renal artery: Atherosclerotic calcification at the origin with mild narrowing. Inferior mesenteric artery: Patent. Right common iliac artery: Patent. Moderate atherosclerotic calcification. Right internal iliac artery: Patent. Moderate atherosclerotic calcification. Right external iliac artery: Patent. Mild atherosclerotic calcification. Right common femoral artery: Patent. Mild atherosclerotic calcification Visualized right superficial and deep femoral arteries: Patent. Left common iliac artery: Patent. Mild vascular calcification. Left internal iliac artery: Patent. Mild atherosclerotic calcification. Left external iliac artery: Patent. Mild atherosclerotic calcification. Left common femoral artery: Patent. Mild atherosclerotic calcification. Visualized left superficial and deep femoral arteries: Patent. NON-ANGIOGRAPHIC FINDINGS: Pharmacy Technologist View Findings, Lines and Tubes: None. Trachea and Airways: Patent without evidence of tracheal or endobronchial lesion. Lungs and Pleura: Clear lungs. Mild emphysematous changes in the anterior upper lobes. No effusion or pneumothorax. Mediastinum and jamison: No mass or hematoma. No mediastinal or hilar lymphadenopathy. No esophageal abnormality. Partially imaged thyroid is unremarkable. Heart: Heart is normal in size. No pericardial effusion. Moderate coronary artery calcification. Chest Wall Soft Tissues: Normal. Diaphragm: No significant abnormality. Liver: Normal. Gallbladder: No CT evidence of gallbladder pathology. Bile ducts: No biliary ductal dilation. Spleen: Normal. Pancreas: Normal. Adrenal glands: Normal. Kidneys and ureters: No hydronephrosis, stones, or suspicious masses. Simple appearing left-sided renal cysts are noted, measuring 2.2 cm in the upper pole and 3 cm in the lower pole are noted, requiring no dedicated follow up. Bladder: Normal. Reproductive organs: Right testicle is retracted into the inguinal canal. Otherwise unremarkable. Stomach, small bowel, and large bowel: Normal in course and caliber. No obstruction or inflammatorychange.. Appendix: Normal. Peritoneum and retroperitoneum: No ascites or pneumoperitoneum. No omental or mesenteric lesions. Lymph nodes: No enlarged lymph nodes. Abdominal and pelvic wall: Small fat-containing umbilical hernia. Small areas of stranding of the subcutaneous fat of bilateral upper quadrants, nonspecific, possibly sequelae of injections. Bones: Status post surgical fixation of multiple right-sided rib fractures. Slight deformity of several left-sided ribs consistent with chronic fractures. Status post posterior fixation from L3 through S1, with bilateral pedicle screws and interlocking vertical rods at L3-L4, and interbody spacing devices at L4-5 and L5-S1. Prior right total hip arthroplasty. Irregularity of the right iliac bone likely chronic sequelae of prior trauma. No evidence of acute fracture. IMPRESSION: 1. No aortic dissection or other acute abnormality. 2. 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 WSN: [id number] Ordering Physician: Kami Suarez Dictated By: Valorie Markham MD Dictated Date/Time: 08/07/22 7:55 pm Reviewed By: Valorie Markham MD Signed By: Valorie Markham MD Signed Date/Time: 08/07/22 7:55 pm Transcribed By: MARC Transcribed Date/Time: 08/07/22 7:51 pm Vital Signs Most recent to oldest [Reference Range]: 1 2 3 Height 180 cm (08/09/22 11:45 AM) 180 cm (08/09/22 3:41 AM) 180 cm (08/08/22 11:43 PM) Weight 61.6 kg (08/08/22 5:48 PM) 80 kg (08/08/22 4:23 PM) 80 kg (08/07/22 7:53 PM) Oxygen Saturation [94-100 %] 99 % (08/09/22 11:45 AM) 97 % (08/09/22 5:00 AM) 100 % (08/08/22 10:18 PM) Pulse Rate [55-90 bpm] 74 bpm (08/09/22 11:45 AM) 63 bpm (08/09/22 8:27 AM) 65 bpm (08/09/22 5:00 AM) Body Mass Index [18.5-24.99 kg/m2] 19.01 kg/m2 (08/08/22 5:48 PM) 24.69 kg/m2 (08/08/22 4:23 PM) 24.69 kg/m2 (08/07/22 7:48 PM) Blood Pressure [90-138/55-84 mm Hg] 162/76mm Hg *H* (08/09/22 11:45 AM) 144/92mm Hg *H* (08/09/22 8:27 AM) 144/92mm Hg *H* (08/09/22 8:24 AM) Respiratory Rate [16-30 br/min] 19 br/min (08/09/22 11:45 AM) 20 br/min (08/09/22 9:23 AM) 20 br/min (08/09/22 8:27 AM) Temperature [96.8-100.4 DegF] 98.6 DegF (08/09/22 11:45 AM) 98.5 DegF (08/09/22 5:00 AM) 98.7 DegF (08/08/22 10:18 PM) Mode of Delivery (Oxygen) Room air (08/09/22 11:45 AM) Room air (08/09/22 5:00 AM) Room air (08/08/22 10:18 PM) Blood pressure sites Arm, right (08/09/22 11:45 AM) Arm, right (08/09/22 5:00 AM) Arm, right (08/09/22 3:41 AM) Temperature Route Oral (08/09/22 11:45 AM) Oral (08/09/22 5:00 AM) Oral (08/08/22 10:18 PM) Dry Weight 61.6 kg (08/08/22 5:48 PM) Weight Obtained Via Bed scale (08/08/22 5:48 PM) Dry Weight Obtained Via Bed scale (08/08/22 5:48 PM) Social History Social History Type Response Smoking Status Current every day sm oker; Type: Cigarettes; Other: 6 cigarettes per day; entered on: 09/27/15 Sex History and physical note * Michael BELTRÁN, Jennifer Redmond: PERFORM Event Display: History and Physical Hospital Authored Date: [id number] Patient: ??MELISSA LOMBARDO ? Age:??56 Years?Sex:??Male?:??1965?? Chief Complaint/Reason for Consultation Hypotension History of Present Illness Patient seen on August 08 ?56-year-old man with history of polysubstance abuse, hypertension, history of pulmonary embolism,GERD, cardiomyopathy, failed back syndrome who presents to the emergency room via EMS after an episode of slurred speech and left-sided facial droop. ?? Background history: Was not very cooperative with??history taking??on exam saying that he was sleepy.??From what I could gather,??2 days ago he fell hitting his head, did not lose any consciousness. Currently living at a sober house ([facility]) for the past 2 days.??Unclear if he fell??prior to him arriving there.??Per ED providers note, he was noted to have an episode of slurred speech and left-sided facial droop??but completely resolved upon arrival to the emergency room.??EMS found that his systolic blood pressure was in the 80s??but he was alert and awake, oriented to person place and time and was speaking in full sentences. ?? ED course:??Upon presentation he was afebrile, blood pressure 90/61, O2 sats 100% on room air. Labsnotable for normal CBC. INR 1. Chloride 97, random glucose 119, BUN 20, creatinine 1.8. BNP 1168. High-sensitivity troponin initial level 29, repeat 18. Serum ethanol level was 121. Influenza A/B/RSV/COVID-19 PCR were negative. Urinalysis with specific gravity more than 1.050, 7 WBCs, slight bacteria. Head CT was reported as no acute abnormality. CT of the C-spine was reported as no acute abnormality. CT angiogram of the chest, abdomen and pelvis reported as no aortic dissection. 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 He was given LR bolus 1 L x 2 and 50 mcg of fentanyl. ?? At the time of my evaluation,??he was laying on the stretcher turned away from me??sleeping.??Personnel from the sober house was at his bedside??but was unable to help with collateral history. Review of Systems Positive for right hip discomfort.??Unwilling to participate in a full review of systems??but denied any chest pain, shortness of breath. Objective Measurements?? Height: 180 cm (08/07/22) Weight: 80 kg (08/07/22) Body Mass Index: 24.69 kg/m2 (08/07/22) ? Vital Signs?? Temperature: 97.8 DegF (08/07/22 19:48:00) Temperature Route: Oral (08/07/22 19:48:00) Pulse Rate: 73 bpm (08/08/22 01:55:00) Respiratory Rate: 16 br/min (08/08/22 01:55:00) Vented: No (08/08/22 00:20:00) Systolic Blood Pressure: 114 mm Hg (08/08/22 01:55:00) Diastolic Blood Pressure: 59 mm Hg (08/08/22 01:55:00) Blood pressure sites: Arm, right (08/08/22 00:20:00) Mean Arterial Pressure: 78 mm Hg (08/07/22 19:48:00) Pulse Pressure: 47 mm Hg (08/08/22 00:20:00) Oxygen Saturation: 97 % (08/08/22 00:20:00) Mode of Delivery (Oxygen): Room air (08/08/22 00:20:00) Early Warning Score: 2 (08/08/22 01:56:31) ? Physical Exam Constitutional: Middle-age man, sleeping, in no acute distress. Head EENT: Normocephalic, no obvious facial droop??at the time of my evaluation Respiratory: Clear to auscultation. No wheezing or crackles. No use of accessory muscles. Cardiovascular: S1S2 regular. No murmurs, rubs or gallops. Gastrointestinal: Abdomen soft, non-tender, non-distended. Normal bowel sounds. Genitourinary: No CVA tenderness. Extremities: No lower extremity pitting??edema. No cyanosis or clubbing. Neurologic: AAOx3, Speech normal. Moves all 4 extremities??but was not??cooperative for a full neurological exam Skin: No rash. Psychiatric: Normal mood and affect Assessment/Plan Assessment:??56-year-old man with history of polysubstance abuse, hypertension, history of pulmonary embolism, GERD, cardiomyopathy,??seizure disorder,??failed back syndrome who presents to the emergency room via EMS after an episode of slurred speech and left-sided facial droop??and was found to be hypotensive??and with acute kidney injury. ?? Hypotension (I95.9):??Apparently EMS was called??for evaluation of slurred speech??and facial droop??which had completely resolved??by the time he came to the emergency room. Unable to obtain??much history from the patient??as he wanted to be??left alone.??Has history of seizure disorder??so Melissa's??palsy??in the differential.??Systolic blood pressure was in the 80s??when EMS arrived. Systolic blood pressure 90 upon arrival to the emergency room and he was given 1 L of LR bolus x2??and he has been maintaining his blood pressure.??Hold lisinopril??and continue to monitor ?? KOSTA (acute kidney injury) (N17.9):??Baseline creatinine appears to be between 0.6-0.8.??Most likelyin the setting of??hypotension and being on ELIZABETH inhibitor.??There is mention of fall??2 days ago??but unclear if he was??on the floor for a while.??Unclear if he was receiving NSAIDs??at the sober house. -Monitor intake and output -hold lisinopril, avoid NSAIDs -Check total CK level though urinalysis??not suggestive of??rhabdo -Continue IV fluids -Obtain??nephrology consult if no improvement??if creatinine continues to rise. -Urine studies ordered ?? Hypertension (I10):??Had been on lisinopril 10 mg daily??which??will be held given??acute kidney injury.??Monitor blood pressure ?? Low back pain - failed back syndrome (M54.50):??He has history of opiate use disorder, cocaine use disorder. He has an ED care plan currently in place which states that he should only be given opiates for serious acute medical conditions ?? Elevated troponin (R77.8):??Initial troponin was 29 and subsequently 18.??Could not find??EKG in the patient's chart??but based on??ED providers documentation??it was nonischemic.??He denies chest pain. ?? Hx of pulmonary embolus (Z86.711):??Upon reviewing external Rx, he last filled Eliquis in April 2022. Please confirm with the patient if he is still taking this medication.??CT angio of the chest??performed??in the emergency room??did not reveal??any pulmonary embolism. ?? Polysubstance abuse (F19.10):??History of??opiate abuse, cocaine abuse??and alcohol dependence. Blood alcohol level was 121 upon arrival. Apparently he has been in a sober house for at least 2 days.??Monitor for withdrawal??on CIWA protocol.??Thiamine, pyridoxine, folic acid, multivitamin ordered??as well.??Return to sober house upon discharge ?? VTE Prophylaxis:??Lovenox ordered??but if he does take Eliquis??which should be discontinued and resumed on Eliquis ?VTE Prophylaxis Assessment:??VTE Prophylaxis Ordered ?? Code Status:??Full code ?Order Code Status:??Code Status Ordered ?? MISC: Medication should be??clarified with the patient when he is more??awake and cooperative ?? Histories Allergies Allergies ?(Active and Proposed [...] History Father: Hypertension ? Medications Home Medications -needs to be verified Duloxetine (duloxetine 30 mg oral enteric coated capsule)?1?capsule?30?Milligram?By Mouth?2 times a day Gabapentin (gabapentin 300 mg oral capsule)?300?Milligram?1?capsule?By Mouth?3 times a day Multivitamin (multivitamin Multiple Vitamins oral tablet)?1?tab(s)?By Mouth?Daily Pantoprazole (pantoprazole 40 mg oral delayed release tablet)?1?tab(s)?40?Milligram?By Mouth?Daily ? Results ?? Test Name Test Result Date/TimeWBC 9.7 k/mm3 08/07/2022 18:52 EST Hgb 13.7 Gm/dL 08/07/2022 18:52 EST Hct 43.1 % 08/07/2022 18:52 EST Platelet Count 307 k/mm3 08/07/2022 18:52 EST INR 1.0 08/07/2022 18:52 EST Sed Rate 7 mm/hr 08/07/2022 18:52 EST Sodium 140 mmol/L 08/07/2022 18:52 EST Potassium 4.0 mmol/L 08/07/2022 18:52 EST Chloride 97 mmol/L (Low) 08/07/2022 18:52 EST Bicarbonate Level 27 mmol/L 08/07/2022 18:52 EST Glucose Level 119 mg/dL (High) 08/07/2022 18:52 EST BUN 20 mg/dL 08/07/2022 18:52 EST Creatinine-Blood 1.8 mg/dL (High) 08/07/2022 18:52 EST Magnesium 2.5 mg/dL (High) 08/07/2022 18:52 EST C-Reactive Protein <0.3 mg/dL 08/07/2022 18:52 EST Nt-Probnp 1168 pg/mL (High) 08/07/2022 18:52 EST High Sensitivity Troponin (HSTnT) 18 ng/L 08/07/2022 21:14 EST High Sensitivity Troponin (HSTnT) 29 ng/L (High) 08/07/2022 18:54 EST Ethanol, Serum or Plasma 121 mg/dL (Abnormal) 08/07/2022 18:52 EST Imaging(s) ?CT Head/Brain W/O Contrast ?? 08/07/2022 19:35??by Valorie Markham MD ?No acute abnormality of the head. ?CT Angio Abdomen and Pelvis ?? 08/07/2022 19:35??by Valorie Markham MD ?1. No aortic dissection or other acute abnormality. 2. Saccular aortic aneurysm at the level of the ligamentum arteriosum, unchanged from 2012. ? EKG study * Event Display: ECG 12-Lead Authored Date: Please click on pdf link to open report * Event Display: ECG 12-Lead Authored Date: Ventricular Rate: 85 BPM Atrial Rate: 85 BPM P-R Interval: 152 ms QRS Duration: 88 ms Q-T Interval: 418 ms QTC Calculation(Bazett): 497 ms P Tuthill: 69 degrees R Tuthill: 46 degrees T Tuthill: 63 degrees Normal sinus rhythm Prolonged QT Abnormal ECG When compared with ECG of 24-MAR-2022 03:07, T wave amplitude has decreased in Anterolateral leads Confirmed by MIGUEL AZUL MD ([id number]) on 08/08/2022 12:38:06 PM Star: JORGE ALBERTO BELTRÁN,[facility] Progress note * Yanira Spangler RN: MODIFY, SIGN, MODIFY, SIGN, VERIFY, MODIFY, SIGN, SIGN, PERFORM Event Display: Progress Note Hospital Authored Date: [id number] Patient: MELISSA LOMBARDO Age: 56 years Sex: Male : 1965 Associated Diagnoses: None Author: Yanira Spangler RN Findings Problem Related to Alteration in Psychosocial : Alteration in Psychosocial Function/new 08/09/2022 12:00 EST Alteration in Psychosocial Related to Acute Alcohol Withdrawal, Ineffective coping Goals & Outcomes, Psychosocial Resolved problem, Goals/Outcomes met Interventions, Psychosocial Resolved problem, Interventions no longer in effect Goals/Interventions, Psychosocial Yes Psychosocial, Problem Start 08/08/2022 18:00 Reviewed Plan with, Psychosocial Patient Patient Progression, Psychosocial Resolved problem Psychosocial, Problem Resolved 08/09/2022 12:00 08/09/2022 8:00 EST Alteration in Psychosocial Related to Acute Alcohol Withdrawal, Ineffective coping Goals & Outcomes, Psychosocial Psychosocial support will be provided to Pt/S.O. as needed, Pt will identify stressors leading up to event, Pt will state importance of adhering to medication regime, Pt/caregiver will be offered appropriate resources & support, Pt/caregiver will express feelings/needs/fears /concerns, Pt/caregiver will maintain/obtain psychological stability Interventions, Psychosocial Assess psychosocial needs, Assess readiness to learn needed lifestyle changes, Assess/monitor level of consciousness, Collaborate with provider for psychiatric consult, Evaluate resources & support system available to pt, Offer support; discuss coping strategies, Provide a calm, supportive environment, Provide chances to express concerns/emotions/expectations, Provide info on community resources for education, support, Provide information about illness and recovery, Provide verbal limits if pt's behavior escalates Goals/Interventions, Psychosocial Yes Psychosocial, Problem Start 08/08/2022 18:00 Reviewed Plan with, Psychosocial Patient Patient Progression, Psychosocial Pt progressing according to plan . Nursing Data Vital Signs : VITAL SIGNS SECTION 08/09/2022 8:27 EST Pulse Rate 63 bpm Respiratory Rate 20 br/min Systolic Blood Pressure 144 mm Hg H Diastolic Blood Pressure 92 mm Hg H . Narrative/Incidental Patient alert and oriented x3. Tele rhythm NSR. LSCTA. Steady ambulation to bathroom. Skin intact. Heating pad on back for pain. CIWA at 0830 score of 4. Siezure precautions in place. NS running 75mL/hr. Staff member from his sober home, [facility], at bedside. Scheduled meds administered. Please see biophysical for further assessment. Hourly rounds in place, aptinets safety maintained. Bed alarm on, bed in lowest position, and call michel within reach. Patient being discharged back to [facility], staff member accompanied him, andthe facilities bus picked him up. Patient belongins in hand. IV and tele discontinued. Discharge instructions reviewed wuith patient at [facility], patient signed discharge paperwork. Transport personnell escorted patient via wheelchair.. * Liz Sweet RN: PERFORM, SIGN, VERIFY Event Display: Progress Note Hospital Authored Date: Patient: MELISSA LOMBARDO Age: 56 years Sex: Male : 1965 Associated Diagnoses: None Author: Liz Sweet RN Findings Narrative/Incidental Pt alert and oriented x3, c/o back pain. Medicated with prn tylenol and given k pad. Pt sinus rhythm on telemetry, hypertensive. Reporting headache. MANAGER ADULT Cleopatra Sahni notified, pt home dose of 10mg of lisinopril ordered. Pt medicated with 1mg ativan for CIWA of 11 at 2300. Safety checks completed.Hourly rounds maintained. See CIS for full biophysical assessment. . * Yanira Spangler RN: PERFORM, SIGN, VERIFY, MODIFY, SIGN Event Display: Progress Note Hospital Authored Date: [id number] Patient: MELISSA LOMBARDO Age: 56 years Sex: Male : 1965 Associated Diagnoses: None Author: Yanira Spangler RN Findings Problem Related to Alteration in Psychosocial : Alteration in Psychosocial Function/new 08/08/2022 18:00 EST Alteration in Psychosocial Related to Acute Alcohol Withdrawal, Ineffective coping Goals & Outcomes, Psychosocial Psychosocial support will be provided to Pt/S.O. as needed, Pt will identify stressors leading up to event, Pt will state importance of adhering to medication regime, Pt/caregiver will be offered appropriate resources & support, Pt/caregiver will express feelings/needs/fears /concerns, Pt/caregiver will maintain/obtain psychological stability Interventions, Psychosocial Assess psychosocial needs, Assess readiness to learn needed lifestyle changes, Assess/monitor level of consciousness, Collaborate with provider for psychiatric consult, Evaluate resources & support system available to pt, Offer support; discuss coping strategies, Provide a calm, supportive environment, Provide chances to express concerns/emotions/expectations, Provide info on community resources for education, support, Provide information about illness and recovery, Provide verbal limits if pt's behavior escalates BH Goals/Interventions, Psychosocial Yes Psychosocial, Problem Start 08/08/2022 18:00 Reviewed Plan with, Psychosocial Patient Patient Progression, Psychosocial Plan Initiation . Nursing Data Vital Signs : VITAL SIGNS SECTION 08/08/2022 17:59 EST Pulse Rate 60 bpm Respiratory Rate 20 br/min Systolic Blood Pressure 169 mm Hg H Diastolic Blood Pressure 85 mm Hg H 08/08/2022 17:48 EST Temperature 98.7 DegF Temperature Route Oral Pulse Rate 60 bpm Respiratory Rate 20 br/min Systolic Blood Pressure 169 mm Hg H Diastolic Blood Pressure 85 mm Hg H Blood pressure sites Arm, left Mean Arterial Pressure 113 mm Hg Pulse Pressure 84 mm Hg Oxygen Saturation 99 % Mode of Delivery (Oxygen) Room air . Narrative/Incidental ED transfer to S2 via stretcher. Alert and oriented x3. Tele rhythm NSR. LSCTA. Skin intact. Statespain at right hip. Steady ambulatig to bed. NS running 75mL/hr. Siezure precautions in place. Admission assessment complete. CIWA score of 3. States was his last drink. A sitter from [facility], the sober living facility he came from, is at bedside. States they rotate shifts /. Please see biophysical for further assesment. Patients safety remained. Bed alarm on, bed in lowest position, and call michel within reach. . Note * Yanira Spangler RN: PERFORM Event Display: Discharge/Transfer Note Hospital Authored Date: [id number] Nursing Discharge Note Entered On: 08/09/2022 11:38 EST Performed On: 08/09/2022 12:12 EST by Yanira Spangler RN Nursing Discharge Note 2 Discharge Time : 08/09/2022 12:12 EST Discharge Level of Care at Discharge : Inpatient Rehab Facility/Unit Patient Left Unit Via : Wheelchair Patient Accompanied Off Unit with : Other: Staff member from facility DC Instructions Provided & Signed by Pt : Yes Patient Instructions Discharge Signed : Yes Did Pt have Specialty Bed or Wound Vac : No Yanira Spangler RN - 08/09/2022 12:12 EST Patient Understands D/C Instructions : Yes Yanira Spangler RN - 08/09/2022 12:14 EST * Jaiden BELTRÁN, Rodolfo A: PERFORM Event Display: Discharge/Transfer Note Hospital Authored Date: [id number] Patient: ??GRUPO, MELISSA ? Age:??56 Years?Sex:??Male?:??1965?? Patient Information Discharge Location: Primary Care Physician: Not on Staff, PCP Admit Date/Time: 08/07/22 21:22 Discharge Disposition Discharge Disposition: Residential Facility/Rehab Discharge Diagnosis Hypotension (I95.9) KOSTA (acute kidney injury) (N17.9) Hypertension (I10) Low back pain - failed back syndrome (M54.50) Elevated troponin (R77.8) Hx of pulmonary embolus (Z86.711) Polysubstance abuse (F19.10) ?? _ Discharge Medications Duloxetine (duloxetine 30 mg oral enteric coated capsule)?1?capsule?30?Milligram?By Mouth?2 times a day Gabapentin (gabapentin 300 mg oral capsule)?300?Milligram?1?capsule?By Mouth?3 times a day Multivitamin (multivitamin Multiple Vitamins oral tablet)?1?tab(s)?By Mouth?Daily Pantoprazole (pantoprazole 40 mg oral delayed release tablet)?1?tab(s)?40?Milligram?By Mouth?Daily ? Quality Measures Tobacco Use Treatment:? Allergies Allergies ?(Active and Proposed Allergies Only) Bee Stings? (Severity: Unknown severity, Onset: Unknown) ? Hospital Course ?56-year-old man with history of polysubstance abuse, hypertension, history of pulmonary embolism, GERD, cardiomyopathy, failed back syndrome who presents to the emergency room via EMS after an episode of slurred speech and left-sided facial droop. ED course:??Upon presentation he was afebrile, blood pressure 90/61, O2 sats 100% on room air. Labs notable for normal CBC. INR 1. Chloride 97, random glucose 119, BUN 20, creatinine 1.8. BNP 1168. High-sensitivity troponin initial level 29, repeat 18. Serum ethanol level was 121. Influenza A/B/RSV/COVID-19 PCR were negative. Urinalysis with specific gravity more than 1.050, 7 WBCs, slight bacteria. Head CT was reported as no acute abnormality. CT of the C-spine was reported as no acute abnormality. CT angiogram of the chest, abdomen and pelvis reported as no aortic dissection. 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 He was given LR bolus 1 L x 2 and 50 mcg of fentanyl.?? Was admitted to medical floor for further management, continued IV fluids.?? He was given multiple pain medications while??in the hospital for back pain. ??He was also placed on??heat pads.?? Reports that??his symptomscompletely resolved except the back pain.?? His kidney functions??were monitored while inpatient,??responded very well to IV fluid resuscitation??and repeat kidney functions??are back to baseline. He remained hemodynamically stable throughout the hospital stay.?? Therefore, the patient be discharged back to [place]??in a stable condition. Objective Assessment and Plan ? Measurements?? Height: 180 cm (08/09/22) Weight: 61.6 kg (08/08/22) Dry Weight: 61.6 kg (08/08/22) Body Mass Index: 19.01 kg/m2 (08/08/22) ? Vital Signs?? Temperature: 98.5 DegF (08/09/22 05:00:00) Temperature Route: Oral (08/09/22 05:00:00) Pulse Rate: 63 bpm (08/09/22 08:27:00) Respiratory Rate: 20 br/min (08/09/22 08:27:00) Systolic Blood Pressure:??144 mm Hg??High (08/09/22 08:27:00) Diastolic Blood Pressure:??92 mm Hg??High (08/09/22 08:27:00) Blood pressure sites: Arm, right (08/09/22 05:00:00) Mean Arterial Pressure: 112 mm Hg (08/09/22 03:41:00) Pulse Pressure: 72 mm Hg (08/09/22 05:00:00) Oxygen Saturation: 97 % (08/09/22 05:00:00) Mode of Delivery (Oxygen): Room air (08/09/22 05:00:00) Early Warning Score: 0 (08/09/22 08:28:41) ? . Physical Exam Constitutional: Middle-age man, sleeping, in no acute distress. Head EENT: Normocephalic, no obvious facial droop??at the time of my evaluation Respiratory: Clear to auscultation. No wheezing or crackles. No use of accessory muscles. Cardiovascular: S1S2 regular. No murmurs, rubs or gallops. Gastrointestinal: Abdomen soft, non-tender, non-distended. Normal bowel sounds. Genitourinary: No CVA tenderness. Extremities: No lower extremity pitting??edema. No cyanosis or clubbing. Neurologic: AAOx3, Speech normal. Moves all 4 extremities??but was not??cooperative for a full neurological exam Skin: No rash. Psychiatric: Normal mood and affect Pending Results Add On Lab Order ordered on 08/08/2022 Basic Metabolic Panel ordered on 08/08/2022 Blood Culture ordered on 08/07/2022 Blood Culture #2 ordered on 08/07/2022 High??Sensitivity??Troponin T ordered on 08/08/2022 Hold Lavender Tube (BB) ordered on 08/07/2022 Follow-Up Appointments Added Follow Up ?Time Frame ?Comments Not on Staff, PCP Patient Instructions you were admitted with hypotension and acute kidney injury, your symptoms markedly improved. Your kidney functions are back to baseline Home Health Face to Face ^HomeHealthFTF Results Discharge Labs BLOOD COUNT & DIFF WBC 5.6 k/mm3 ()?? 08/09/2022 01:18 RBC 4.00 m/mm3 (Low)?? 08/09/2022 01:18 Hgb 11.5 Gm/dL (Low)?? 08/09/2022 01:18 Hct 34.6 % (Low)?? 08/09/2022 01:18 MCV 86.5 femtoliters ()?? 08/09/2022 01:18 MCH 28.8 pg ()?? 08/09/2022 01:18 MCHC 33.2 g/dL ()?? 08/09/2022 01:18 Platelet Count 216 k/mm3 ()?? 08/09/2022 01:18 RDW-SD 42.0 femtoliters ()?? 08/09/2022 01:18 MPV 10.1 femtoliters ()?? 08/09/2022 01:18 Nucleated RBC (Automated) 0.0 #/100 WBC'S ()?? 08/09/2022 01:18 Abs. NRBC 0.0 k/mm3 ()?? 08/09/2022 01:18 Abs. Neut 6.5 k/mm3 ()?? 08/07/2022 18:52 Abs. Lymph 2.4 k/mm3 ()?? 08/07/2022 18:52 Abs. Gilchrist 0.6 k/mm3 ()?? 08/07/2022 18:52 Abs. Eo 0.1 k/mm3 ()?? 08/07/2022 18:52 Abs. Baso 0.1 k/mm3 ()?? 08/07/2022 18:52 Neut % 67.0 % ()?? 08/07/2022 18:52 Lymph % 24.3 % ()?? 08/07/2022 18:52 Gilchrist % 6.3 % ()?? 08/07/2022 18:52 Eos % 0.7 % ()?? 08/07/2022 18:52 Baso % 0.7 % ()?? 08/07/2022 18:52 Imm Gran 1.0 % ()?? 08/07/2022 18:52 Abs. Imm Gran 0.1 k/mm3 ()?? 08/07/2022 18:52 ?? CARDIAC CK, Total 80 units/L ()?? 08/09/2022 01:18 Nt-Probnp 1168 pg/mL (High)?? 08/07/2022 18:52 High Sensitivity Troponin (HSTnT) 18 ng/L ()?? 08/07/2022 21:14 ? CHEM GENERAL Sodium 138 mmol/L ()?? 08/09/2022 01:18 Potassium 3.9 mmol/L ()?? 08/09/2022 01:18 Chloride 102 mmol/L ()?? 08/09/2022 01:18 Bicarbonate Level 25 mmol/L ()?? 08/09/2022 01:18 Anion Gap 11 ()?? 08/09/2022 01:18 Glucose Level 119 mg/dL (High)?? 08/07/2022 18:52 BUN 16 mg/dL ()?? 08/09/2022 01:18 Creatinine-Blood 0.9 mg/dL ()?? 08/09/2022 01:18 Estimated GFR Creatinine 101 ML/MIN/1.73 M2 ()?? 08/09/2022 01:18 Calcium 10.2 mg/dL ()?? 08/07/2022 18:52 Phosphorus 4.0 mg/dL ()?? 08/09/2022 01:18 Magnesium 1.8 mg/dL ()?? 08/09/2022 01:18 Protein, Total 7.4 Gm/dL ()?? 08/07/2022 18:52 Albumin 4.8 Gm/dL ()?? 08/07/2022 18:52 AG Ratio 1.8 ()?? 08/07/2022 18:52 Alkaline Phosphatase 95 units/L ()?? 08/07/2022 18:52 Lipase 86 units/L (High)?? 08/07/2022 18:52 AST (SGOT) 15 units/L ()?? 08/07/2022 18:52 ALT (SGPT) 9 units/L ()?? 08/07/2022 18:52 Bilirubin, Total 0.2 mg/dL ()?? 08/07/2022 18:52 C-Reactive Protein <0.3 mg/dL ()?? 08/07/2022 18:52 ? COAG INR 1.0 ()?? 08/07/2022 18:52 Protime (PT) 10.1 seconds ()?? 08/07/2022 18:52 APTT 22.2 seconds (Low)?? 08/07/2022 18:52 ? HEME OTHER Sed Rate 7 mm/hr ()?? 08/07/2022 18:52 ? TOXICOLOGY/TDM Ethanol, Serum or Plasma 121 mg/dL (Abnormal)?? 08/07/2022 18:52 ? UA/URINALYSIS Appear/Color, Urine YELLOW ()?? 08/07/2022 18:57 Specific Hamlin, Urine >1.050 (High)?? 08/07/2022 18:57 pH, Urine 6.5 ()?? 08/07/2022 18:57 Albumin, Urine 1+ (Abnormal)?? 08/07/2022 18:57 Glucose, Urine NEGATIVE ()?? 08/07/2022 18:57 Ketones, Urine NEGATIVE ()?? 08/07/2022 18:57 Bilirubin, Urine NEGATIVE ()?? 08/07/2022 18:57 Hemoglobin, Urine NEGATIVE ()?? 08/07/2022 18:57 Nitrite, Urine NEGATIVE ()?? 08/07/2022 18:57 Leukocyte, Urine NEGATIVE ()?? 08/07/2022 18:57 Urobilinogen NORMAL mg/dL ()?? 08/07/2022 18:57 WBC's, Urine 7 /HPF (High)?? 08/07/2022 18:57 RBC's, Urine NONE SEEN /HPF ()?? 08/07/2022 18:57 Bacteria SLIGHT HPF (Abnormal)?? 08/07/2022 18:57 Squamous Epith 1 /HPF ()?? 08/07/2022 18:57 Mucus SLIGHT /LPF ()?? 08/07/2022 18:57 Hold Urine Culture Testing available 48 hours from time of collection. ()?? 08/07/2022 18:57 ? URINE OTHER Eos, Urine <2 WBC/HPF, % EOS NOT CALCULATED % ()?? 08/08/2022 23:10 Creatinine, Urine Random 42.5 mg/dL ()?? 08/08/2022 23:10 Sodium, Urine Random 50 mmol/L ()?? 08/08/2022 23:10 ? VIROLOGY Influenza A PCR NEGATIVE ()?? 08/07/2022 21:29 Influenza B PCR NEGATIVE ()?? 08/07/2022 21:29 RSV PCR NEGATIVE ()?? 08/07/2022 21:29 COVID-19 PCR Specimen Source NASAL ()?? 08/07/2022 21:29 COVID-19 PCR Result NEGATIVE ()?? 08/07/2022 21:29 ? 35??minutes spent on discharge * Yanira Spangler RN: PERFORM Event Display: Patient Education/Instruction Authored Date: [id number] Inpatient Adult Discharge Instructions [place] [id number] Name: MELISSA LOMBARDO : 1965 Visit: 08/07/2022 21:22:00 Current Date: 08/09/2022 11:42 Account: [id number] Inpatient Adult Discharge Instructions We would like [...] and their families. Surveys are administered by [email or web address] ?? If further treatment with your primary care physician or another doctor is recommended, it is important for you to keep the appointment. Call your primary care physician or return to the Emergency Department immediately if your condition worsens, fails to improve, or new symptoms develop. If you need to find a doctor, you can call [facility]ia Search for a referral at [phone] or toll free at [phone] or log in to [email or web address].. ?? You can view and manage your care through the patient portal or by using a health care citlaly of your choosing. [employer] is a website that allows you to securely view your medical information including your hospital discharge summary, office visit summaries, medications and follow-up visits. You can also request appointments, renew medications, and request access to your medical information using a health care citlaly of your choosing, or just ask a question. You can enroll at [email or web address] or register during your next office visit. You have been discharged from [facility], Patient Care Unit: S2. If you have any questions regarding these instructions after you leave, please call us and we will be happy to assist you. [facility] Your Care Team Attending Physician Rodolfo Hwang MD Discharging Providers Rodolfo Hwang MD Reason for Admission Hypotension Your Diagnosis KOSTA (acute kidney injury) Hypotension Hypertension Low back pain - failed back syndrome Hx of pulmonary embolus Elevated troponin Polysubstance abuse Tests Performed Below is a partial list of the tests performed during your hospitalization. You may have had other tests and procedures not included in this list. Please discuss all test results with your provider. Alcohol Level BUN CBC CBC w/ Differential CK Total Only Comprehensive Metabolic Panel COVID-19, RSV, and Flu A/B, Rapid PCR Creatinine CRP Electrolytes ESR High??Sensitivity??Troponin T INR Lipase Magnesium Level Phosphorus Level ProBNP PTT UA W/HOLD FOR CULTURE FOR [facility] ER ONLY Urine Creatinine Urine Eosinophils Urine Sodium CT Angio Abdomen and Pelvis CT Angio Chest CT Cervical Spine W/O Contrast CT Head/Brain W/O Contrast Primary Care Provider Not on Staff, PCP Advance Directive Health Care Proxy on File No Patient refuses to discuss No qualifying data available. Discharge Vitals Temperature: 98.5 DegF Height: 180 cm Pulse Rate: 63 bpm Weight: 61.6 kg Respiratory Rate: 20 br/min Body Mass Index: 19.01 kg/m2 Systolic Blood Pressure:??144 mm Hg??High Body surface area: 1.75 Diastolic Blood Pressure:??92 mm Hg??High ?? Oxygen Saturation: 97 % ?? Studies Pending All tests and labs ordered during this hospital stay have been completed unless listed below. Please discuss all pending results with your provider listed above in these instructions. ?? Add On Lab Order Basic Metabolic Panel Blood Culture Blood Culture #2 High??Sensitivity??Troponin T Hold Lavender Tube (BB) (HOLD LAV TUBE BLOOD BANK) What to do next Instructions From Your Doctor you were admitted with hypotension and acute kidney injury, your symptoms markedly improved. Your kidney functions are back to baseline Discharge Orders You Need to Schedule the Following Appointments Follow Up with??Not on Staff, PCP When?? Discharge Medications MELISSA LOMBARDO :1965 Visit Date:08/07/2022 Medications: Please continue your medications until treatment is completed or stopped by your provider. Medications not listed below should be discontinued. Discuss any questions related to medications with your provider. What How Much When Instructions Next Dose Unchanged Duloxetine (duloxetine 30 mg oral enteric coated capsule) 1 capsule Oral Twice a day 08/09 at 9pm Unchanged Gabapentin (gabapentin 300 mg oral capsule) 1 capsule Oral 3 times a day 08/09 at 3pm Unchanged Multivitamin (multivitamin Multiple Vitamins oral tablet) 1 tab(s) Oral Daily 08/10 at 9am Unchanged Pantoprazole (pantoprazole 40 mg oral delayed release tablet) 1 tab(s) Oral Daily 08/10 at 9am ?? What How Much When Comments Stop Taking Lisinopril (lisinopril 2.5 mg oral tablet) 1 tab(s) Oral Daily Stop Taking Omeprazole (omeprazole 20 mg oral enteric coated capsule) TAKE ONE CAPSULE BY MOUTH EVERY DAY BEFORE BREAKFAST. ?? Test Results Below is a partial list of the most recent Laboratory test results done prior to this discharge. You may have had other tests and procedures not included in this list. Please discuss all test resultswith your provider. Alcohol Level (08/07/2022) ???Ethanol, Serum or Plasma - 121 mg/dL BUN (08/09/2022) ???BUN - 16 mg/dL CBC (08/09/2022) ???WBC - 5.6 k/mm3???RBC - 4.00 m/mm3???Hgb - 11.5 Gm/dL???Hct - 34.6 %???MCV - 86.5 femtoliters???MCH - 28.8 pg???MCHC - 33.2 g/dL???Platelet Count - 216 k/mm3???RDW-SD - 42.0 femtoliters???MPV - 10.1 femtoliters???Nucleated RBC (Automated) - 0.0 #/100 WBC'S???Abs. NRBC - 0.0 k/mm3 CBC w/ Differential (08/07/2022) ???WBC - 9.7 k/mm3???RBC - 4.85 m/mm3???Hgb - 13.7 Gm/dL???Hct - 43.1 %???MCV - 88.9 femtoliters???MCH - 28.2 pg???MCHC - 31.8 g/dL???Platelet Count - 307 k/mm3???RDW-SD - 44.7 femtoliters???MPV - 9.7 femtoliters???Nucleated RBC (Automated) - 0.0 #/100 WBC'S???Abs. NRBC - 0.0 k/mm3???Abs. Neut - 6.5 k/mm3???Abs. Lymph - 2.4 k/mm3???Abs. Gilchrist - 0.6 k/mm3???Abs. Eo - 0.1 k/mm3???Abs. Baso - 0.1 k/mm3???Neut % - 67.0 %???Lymph % - 24.3 %???Gilchrist % - 6.3 %???Eos % - 0.7 %???Baso % - 0.7 %???Imm Gran- 1.0 %???Abs. Imm Gran - 0.1 k/mm3 CK Total Only (08/09/2022) ???CK, Total - 80 units/L Comprehensive Metabolic Panel (08/07/2022) ???Sodium - 140 mmol/L???Potassium - 4.0 mmol/L???Chloride - 97 mmol/L???Bicarbonate Level - 27 mmol/L???Anion Gap - 16???Glucose Level - 119 mg/dL???BUN - 20 mg/dL???Creatinine-Blood - 1.8 mg/dL???Estimated GFR Creatinine - 43 ML/MIN/1.73 M2???Calcium - 10.2 mg/dL???Protein, Total - 7.4 Gm/dL???Alb umin - 4.8 Gm/dL???AG Ratio - 1.8???Alkaline Phosphatase - 95 units/L???AST (SGOT) - 15 units/L???ALT (SGPT) - 9 units/L???Bilirubin, Total - 0.2 mg/dL COVID-19, RSV, and Flu A/B, Rapid PCR (08/07/2022) ???Influenza A PCR - NEGATIVE???Influenza B PCR - NEGATIVE???RSV PCR - NEGATIVE???COVID-19 PCR Specimen Source - NASAL???COVID-19 PCR Result - NEGATIVE Creatinine (08/09/2022) ???Creatinine-Blood - 0.9 mg/dL???Estimated GFR Creatinine - 101 ML/MIN/1.73 M2 CRP (08/07/2022) ? ?C-Reactive Protein - <0.3 mg/dL Electrolytes (08/09/2022) ???Sodium - 138 mmol/L???Potassium - 3.9 mmol/L???Chloride - 102 mmol/L???Bicarbonate Level - 25 mmol/L???Anion Gap - 11 ESR (08/07/2022) ???Sed Rate - 7 mm/hr High??Sensitivity??Troponin T (08/07/2022) ???High Sensitivity Troponin (HSTnT) - 18 ng/L INR (08/07/2022) ???INR - 1.0???Protime (PT) - 10.1 seconds Lipase (08/07/2022) ???Lipase - 86 units/L Magnesium Level (08/09/2022) ???Magnesium - 1.8 mg/dL Phosphorus Level (08/09/2022) ???Phosphorus - 4.0 mg/dL ProBNP (08/07/2022) ???Nt-Probnp - 1168 pg/mL PTT (08/07/2022) ???APTT - 22.2 seconds UA W/HOLD FOR CULTURE FOR [facility] ONLY (08/07/2022) ? ?Appear/Color, Urine - YELLOW? ?Specific [place], Urine - >1.050? ?pH, Urine - 6.5? ?Albumin, Urine - 1+???Glucose, Urine - NEGATIVE???Ketones, Urine - NEGATIVE???Bilirubin, Urine - NEGATIVE???Hemoglobin, Urine - NEGATIVE???Nitrite, Urine - NEGATIVE???Leukocyte, Urine - NEGATIVE???Urobilinogen- NORMAL???WBC's, Urine - 7 /HPF???RBC's, Urine - NONE SEEN???Bacteria - SLIGHT???Squamous Epith - 1 /HPF???Mucus - SLIGHT???Hold Urine Culture - Testing available 48 hours from time of collection. Urine Creatinine (08/08/2022) ???Creatinine, Urine Random - 42.5 mg/dL Urine Eosinophils (08/08/2022) ? ?Eos, Urine - <2 WBC/HPF, % EOS NOT CALCULATED Urine Sodium (08/08/2022) ???Sodium, Urine Random - 50 mmol/L Allergies (NKA means No Known Allergies) Bee [...] Educational Leaflet Providered with your Discharge Instructions. Self-Care for Low Back Pain?? Discharge Instructions for Acute Kidney Injury?? Valuables and Belongings I fully understand and agree that [facility] accepts no responsibility for all my personal [...] to send valuables and belongings home. ?? No Valuables/Belongings: No valuables/belongings present Review of Valuable and Belonging List: With patient, With witness Date for Pt to Sign Valuables/Belongings: 08/08/22 10:51:00 ?? Other Discharge Information ? Pulmonary Rehab Status?? Pulmonary Rehab Discharge Status?? Respiratory Rate: 20 br/min ? Common Emergency Awareness Tips IS [...] are strongly encouraged to quit. Please call [facility] at [phone] or [phone] ([phone]) or log in to [email or web address] for referrals to smoking cessation programs. ?? The National Suicide Prevention Hotline is available 01/02 if you or someone you know needs to find a reason to keep living. By calling 9-944-588-[place] [employer] (6646) you'll be connected to a skilled, trained counselor at a crisis center in your area. INPATIENT DISCHARGE INSTRUCTIONS SIGNATURE MELISSA HASSAN Location:[facility] Registration Date and Time:08/07/2022 21:22 EST Primary Care Physician: Not on Staff, PCP MELISSA NIEVES, have received the above patient education materials/instructions and have verbalized understanding. If ambulance or transport services are being used I further acknowledge being given a choice of service. ?? If you need to contact me, please call me at this number: . Patient/Auto Striper Name: Patient/Auto Striper Signature: Relationship to Patient: Witness Name/Signature: Date: * Yanira Spangler RN: PERFORM Event Display: Patient Education Leaflets Authored Date: [id number] Self-Care for Low Back Pain ?? 99446 Self-Care for Low Back Pain Most people have low back pain now and then. In many cases, it isn???t serious and self-care can help. Sometimes low back pain can be a sign of a bigger problem. Call your healthcare provider if yourpain returns often or gets worse over time. For the long-term care of your back, get regular exercise, lose any excess weight, and learn good posture. Take a short rest Lying down during the day may be helpful for short periods of time if severe pain increases with sitting or standing. Long-term bed rest could be damaging. ?? Reduce pain and swelling Cold reduces swelling. Both cold and heat can reduce pain. Protect your skin by placing a towel between your body and the ice or heat source. ??? For the first few days, apply an ice pack for 15 to??20 minutes, several times a day. To make a cold pack, put ice cubes in a plastic bag that seals at the top. A wrapped frozen bag of vegetables can also work as a cold pack. ??? After the first few days, try heat for 15 minutes at a time to ease pain. Always make sure the heating pad is wrapped. Never sleep on a heating pad. ??? Wkna-kuy-vibdqdc medicine can help control pain and swelling. Try aspirin or a non-steroidal anti-inflammatory medicine (NSAID) such as ibuprofen. ?? Exercise Exercise can help your back heal. It also helps your back get stronger and more flexible, preventing any reinjury. Ask your healthcare provider about specific exercises for your back. ?? Use good posture to avoid reinjury ??? When moving, bend at the hips and knees. Don???t bend at thewaist or twist around. ??? When lifting, keep the object close to your body. Lift heavy items usingyour legs, not your back. Don???t try to lift more than you can handle. ??? When sitting, keep yourlower back supported. Use a rolled-up towel as needed. Make sure your work area or desk is at the correct height. ??? Use a mirror to check your posture when you walk. Stand straight with shoulders back. Ask your providers for exercises that will improve your posture. ?? Seek medical care right away if: ??? You can't stand or walk ??? You have a temperature over 100.4??F ( 38.0??C), or as advised by your provider ??? You have frequent, painful, or bloody urination ??? You have severe abdominal pain ??? You have a sharp, stabbing pain ??? Your pain is constant ??? You have pain, tingling, or numbness in your leg ??? You have weakness in one or both legs or problems with bladder, bowel, or sexual function. These symptoms should be seen by a provider right away. This is because they can be caused by compression of the nerve bundle at the base of the spine. ??? You feel pain in a new area of your back ??? You notice that the pain isn???t decreasing after more than a week ??? Your symptoms worsen or new symptoms develop ?? Last Reviewed Date: 2021 ?? [employer]. All rights reserved. This information is not intended as a substitute for professional medical care. Always follow your healthcare professional's instructions. ?? * Yanira Spangler RN: PERFORM Event Display: Patient Education Leaflets Authored Date: [id number] Discharge Instructions for Acute Kidney Injury ?? [id number] Discharge Instructions for Acute Kidney Injury You have been diagnosed with acute kidney injury. This means that you have had a sudden episode of kidney failure or damage that causes your kidneys not to work correctly. When both kidneys are healthy, they help filter out fluid and waste from the blood and body.??Acute kidney injury has many causes. These include urinary blockages, infection, lack of enough blood supply, and medicines that can injure??kidneys. In some cases, acute kidney injury is short-term (temporary). This type lasts several days to a few months. This is because the kidney can repair itself. Acute kidney injury can also result in chronic kidney disease or end stage renal failure. Here are some directions for you to follow as you recover. Home care ??? Follow any directions for eating and drinking given to you by your healthcare provider. o Drink less fluid, if directed by your healthcare provider. o Keep a record of everything you eat and drink. ??? Measure the amount of urine and stool you have each day. ??? Weigh yourself every day, at the same time of day, and in the same kind of clothes. Keep a daily record of your daily weights. ??? Take your temperature every day. Keep a record of the results. ??? Learn to take your own blood pressure (BP). Your healthcare provider can teach you how to correctly measure your BP. Keep a record of your results. Bring the record to your follow-up appointments. Ask your healthcare provider when you should seek emergency medical attention. Your provider will tell you what blood pressure reading is dangerous. ??? Stay away from people who have infections. This includes people with colds, bronchitis, or skin conditions. ??? Practice good personal??hygiene. Wash your hands often. This is especially important if you have a catheter in place when you leave the hospital. Doing so helps keep you safe from infection. ??? Take your medicines exactly as directed. ??? You may need frequent blood and urine tests. These are done to keep track of your kidney function. ?? Follow-up care Follow up with your healthcare provider, or as advised. ?? When to call your healthcare provider Call your??healthcare provider??right away if any of the following occur: ??? Signs of bladder infection, such as urinating more often, burning or pain when you pee, pain above your pubic bone, bloodin your urine, or trouble starting your urine stream ??? Signs of infection around your catheter, such as redness, swelling, warmth, or fluid leaking ??? Rapid weight loss or weight gain, such as 3??pounds or more in 24 hours or 6 pounds or more in 7 days ??? Fever above 100.4?? F ( 38??C ) or as directed by your healthcare provider ??? Chills ??? Muscle aches ??? Night sweats ??? Very little or no urine output ??? Swelling of your hands, legs, or feet ??? Back pain ??? Abdominal (belly) pain ??? Extreme tiredness ?? Last Reviewed Date: 2022 ?? [id number] [employer]. All rights reserved. This information is not intended as a substitute for professional medical care. Always follow your healthcare professional's instructions. ?? CTA Abdominal vessels and Pelvis vessels W contrast IV * MATT Keyes S: TRANSCISAIAS Markham MD, Valorie Pedraza: VERIFY Event Display: Result: Authored Date: [id number] EXAMINATION: CT Angio Chest, CT Angio Abdomen and Pelvis INDICATION: Reason: Other:; Aortic disease, nontraumatic; Clinical Question(s): Other:; AAA TECHNIQUE: Spiral CTA of the chest, abdomen, and pelvis was performed after rapid IV contrast administration without cardiac gating triggered by an JAMES on the aorta. Images are formatted in multiple planes using 2-D multiplanar and 3-D maximum intensity projection. 100 cc of Omnipaque 300 was administered intravenously. This study was performed without oral contrast. Weight-based protocol using automatic tube modulation was used to optimize exposure parameters. CTDIvol Body: 11.67 mGy, DLP Body: 569 mGy*cm. COMPARISONS: CT chest, 08/28/2012. CT lumbar spine, 07/24/2021. ANGIOGRAPHIC FINDINGS: Thoracic aorta: Mild atherosclerotic calcifications. Similar to the prior study of 08/28/2012, thereis a rim calcified saccular aneurysm at the level of ligamentum arteriosum, unchanged in size and morphology. This saccular aneurysm measures approximately 2.9 x 1.6 x 3.2 cm (measured on sagittal image 75 and coronal image 69). No aortic dissection, penetrating atherosclerotic ulcer, or intramuralhematoma. Normal three vessel arch, with mild atherosclerotic opacifications at the origins but no branch vessel stenosis. Pulmonary arteries: Normal in caliber. No evidence of central pulmonary embolism on this study performed without dedicated technique. Abdominal aorta: No aortic aneurysm or dissection. Moderate atherosclerotic calcification. Celiac axis: Patent. Mild calcification at the origin without stenosis. Moderate opacification of the tortuous splenic artery. Superior mesenteric artery: Patent. Mild calcification at the origin without stenosis. Right renal artery: Duplicated. Both right renal arteries are patent. Left renal artery: Atherosclerotic calcification at the origin with mild narrowing. Inferior mesenteric artery: Patent. Right common iliac artery: Patent. Moderate atherosclerotic calcification. Right internal iliac artery: Patent. Moderate atherosclerotic calcification. Right external iliac artery: Patent. Mild atherosclerotic calcification. Right common femoral artery: Patent. Mild atherosclerotic calcification Visualized right superficial and deep femoral arteries: Patent. Left common iliac artery: Patent. Mild vascular calcification. Left internal iliac artery: Patent. Mild atherosclerotic calcification. Left external iliac artery: Patent. Mild atherosclerotic calcification. Left common femoral artery: Patent. Mild atherosclerotic calcification. Visualized left superficial and deep femoral arteries: Patent. NON-ANGIOGRAPHIC FINDINGS: Pharmacy Technologist View Findings, Lines and Tubes: None. Trachea and Airways: Patent without evidence of tracheal or endobronchial lesion. Lungs and Pleura: Clear lungs. Mild emphysematous changes in the anterior upper lobes. No effusion or pneumothorax. Mediastinum and jamison: No mass or hematoma. No mediastinal or hilar lymphadenopathy. No esophageal abnormality. Partially imaged thyroid is unremarkable. Heart: Heart is normal in size. No pericardial effusion. Moderate coronary artery calcification. Chest Wall Soft Tissues: Normal. Diaphragm: No significant abnormality. Liver: Normal. Gallbladder: No CT evidence of gallbladder pathology. Bile ducts: No biliary ductal dilation. Spleen: Normal. Pancreas: Normal. Adrenal glands: Normal. Kidneys and ureters: No hydronephrosis, stones, or suspicious masses. Simple appearing left-sided renal cysts are noted, measuring 2.2 cm in the upper pole and 3 cm in the lower pole are noted, requiring no dedicated follow up. Bladder: Normal. Reproductive organs: Right testicle is retracted into the inguinal canal. Otherwise unremarkable. Stomach, small bowel, and large bowel: Normal in course and caliber. No obstruction or inflammatorychange.. Appendix: Normal. Peritoneum and retroperitoneum: No ascites or pneumoperitoneum. No omental or mesenteric lesions. Lymph nodes: No enlarged lymph nodes. Abdominal and pelvic wall: Small fat-containing umbilical hernia. Small areas of stranding of the subcutaneous fat of bilateral upper quadrants, nonspecific, possibly sequelae of injections. Bones: Status post surgical fixation of multiple right-sided rib fractures. Slight deformity of several left-sided ribs consistent with chronic fractures. Status post posterior fixation from L3 through S1, with bilateral pedicle screws and interlocking vertical rods at L3-L4, and interbody spacing devices at L4-5 and L5-S1. Prior right total hip arthroplasty. Irregularity of the right iliac bone likely chronic sequelae of prior trauma. No evidence of acute fracture. IMPRESSION: 1. No aortic dissection or other acute abnormality. 2. 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 WSN: [id number] Ordering Physician: Kami Suarez Dictated By: Valorie Markham MD Dictated Date/Time: 08/07/22 7:55 pm Reviewed By: Valorie Markham MD Signed By: Valorie Markham MD Signed Date/Time: 08/07/22 7:55 pm Transcribed By: MARC Transcribed Date/Time: 08/07/22 7:51 pm CTA Chest vessels W contrast IV * [facility] , CIS S: TRANSCRIBE Valorie Markham MD: VERIFY Event Display: Result: Authored Date: [id number] EXAMINATION: CT Angio Chest, CT Angio Abdomen and Pelvis INDICATION: Reason: Other:; Aortic disease, nontraumatic; Clinical Question(s): Other:; AAA TECHNIQUE: Spiral CTA of the chest, abdomen, and pelvis was performed after rapid IV contrast administration without cardiac gating triggered by an JAMES on the aorta. Images are formatted in multiple planes using 2-D multiplanar and 3-D maximum intensity projection. 100 cc of Omnipaque 300 was administered intravenously. This study was performed without oral contrast. Weight-based protocol using automatic tube modulation was used to optimize exposure parameters. CTDIvol Body: 11.67 mGy, DLP Body: 569 mGy*cm. COMPARISONS: CT chest, 08/28/2012. CT lumbar spine, 07/24/2021. ANGIOGRAPHIC FINDINGS: Thoracic aorta: Mild atherosclerotic calcifications. Similar to the prior study of 08/28/2012, thereis a rim calcified saccular aneurysm at the level of ligamentum arteriosum, unchanged in size and morphology. This saccular aneurysm measures approximately 2.9 x 1.6 x 3.2 cm (measured on sagittal image 75 and coronal image 69). No aortic dissection, penetrating atherosclerotic ulcer, or intramuralhematoma. Normal three vessel arch, with mild atherosclerotic opacifications at the origins but no branch vessel stenosis. Pulmonary arteries: Normal in caliber. No evidence of central pulmonary embolism on this study performed without dedicated technique. Abdominal aorta: No aortic aneurysm or dissection. Moderate atherosclerotic calcification. Celiac axis: Patent. Mild calcification at the origin without stenosis. Moderate opacification of the tortuous splenic artery. Superior mesenteric artery: Patent. Mild calcification at the origin without stenosis. Right renal artery: Duplicated. Both right renal arteries are patent. Left renal artery: Atherosclerotic calcification at the origin with mild narrowing. Inferior mesenteric artery: Patent. Right common iliac artery: Patent. Moderate atherosclerotic calcification. Right internal iliac artery: Patent. Moderate atherosclerotic calcification. Right external iliac artery: Patent. Mild atherosclerotic calcification. Right common femoral artery: Patent. Mild atherosclerotic calcification Visualized right superficial and deep femoral arteries: Patent. Left common iliac artery: Patent. Mild vascular calcification. Left internal iliac artery: Patent. Mild atherosclerotic calcification. Left external iliac artery: Patent. Mild atherosclerotic calcification. Left common femoral artery: Patent. Mild atherosclerotic calcification. Visualized left superficial and deep femoral arteries: Patent. NON-ANGIOGRAPHIC FINDINGS: Pharmacy Technologist View Findings, Lines and Tubes: None. Trachea and Airways: Patent without evidence of tracheal or endobronchial lesion. Lungs and Pleura: Clear lungs. Mild emphysematous changes in the anterior upper lobes. No effusion or pneumothorax. Mediastinum and jamison: No mass or hematoma. No mediastinal or hilar lymphadenopathy. No esophageal abnormality. Partially imaged thyroid is unremarkable. Heart: Heart is normal in size. No pericardial effusion. Moderate coronary artery calcification. Chest Wall Soft Tissues: Normal. Diaphragm: No significant abnormality. Liver: Normal. Gallbladder: No CT evidence of gallbladder pathology. Bile ducts: No biliary ductal dilation. Spleen: Normal. Pancreas: Normal. Adrenal glands: Normal. Kidneys and ureters: No hydronephrosis, stones, or suspicious masses. Simple appearing left-sided renal cysts are noted, measuring 2.2 cm in the upper pole and 3 cm in the lower pole are noted, requiring no dedicated follow up. Bladder: Normal. Reproductive organs: Right testicle is retracted into the inguinal canal. Otherwise unremarkable. Stomach, small bowel, and large bowel: Normal in course and caliber. No obstruction or inflammatorychange.. Appendix: Normal. Peritoneum and retroperitoneum: No ascites or pneumoperitoneum. No omental or mesenteric lesions. Lymph nodes: No enlarged lymph nodes. Abdominal and pelvic wall: Small fat-containing umbilical hernia. Small areas of stranding of the subcutaneous fat of bilateral upper quadrants, nonspecific, possibly sequelae of injections. Bones: Status post surgical fixation of multiple right-sided rib fractures. Slight deformity of several left-sided ribs consistent with chronic fractures. Status post posterior fixation from L3 through S1, with bilateral pedicle screws and interlocking vertical rods at L3-L4, and interbody spacing devices at L4-5 and L5-S1. Prior right total hip arthroplasty. Irregularity of the right iliac bone likely chronic sequelae of prior trauma. No evidence of acute fracture. IMPRESSION: 1. No aortic dissection or other acute abnormality. 2. 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 WSN: [id number] Ordering Physician: Kami Suarez Dictated By: Valorie Markham MD Dictated Date/Time: 08/07/22 7:55 pm Reviewed By: Valorie Markham MD Signed By: Valorie Markham MD Signed Date/Time: 08/07/22 7:55 pm Transcribed By: MARC Transcribed Date/Time: 08/07/22 7:[address] Cervical spine WO contrast * MANOJSPstone , MATT S: TRANSCRIValorie Flores MD: VERIFY Annalisa Garcia MD: SIGN Event Display: Result: Authored Date: [id number] CT Head/Brain W/O Contrast, CT Cervical Spine W/O Contrast INDICATION: Reason: Trauma; Clinical Question(s): Hematoma TECHNIQUE: Noncontrast head CT using axial technique was reconstructed in axial and coronal planes.Noncontrast spiral CT through the cervical spine was formatted in 3 planes. Automatic tube modulation was used for the cervical spine and iterative dose reconstruction was used for both the head and cervical spine to optimize scan parameters and image quality. CTDIvol Body: 23.31 mGy, DLP Body: 648 mGy*cm. CTDIvol Head: 44.82 mGy, DLP Head: 807 mGy*cm. COMPARISON: None. FINDINGS: Pharmacy Technologist View Findings, Lines and Tubes: None. BRAIN AND EXTRA-AXIAL SPACES: No parenchymal hemorrhage, midline shift, or mass effect. Gaines-white matter differentiation is wellpreserved. Chronic lacunar infarcts within the right frontal deep white matter and right caudate head. No CT signs of acute infarct. Negative insular ribbon sign. Atherosclerotic vascular calcification of the carotid arteries but negative hyperdense vessel sign. Mild prominence of the ventricles and sulci consistent with parenchymal volume loss. Mild low-density white matter changes. No subarachnoid hemorrhage. No subdural or epidural collection. CALVARIUM, SKULL BASE, AND SOFT TISSUES: No fractures or suspicious bony lesions. Mucous retention cyst within the right maxillary sinus. The mastoid air cells are clear. Visualized orbits and globes are intact. The extracranial soft tissues are unremarkable. CERVICAL SPINE: No fracture. No acute osseous abnormalities. Normal alignment. No locked or perched facet. Moderate multilevel degenerative disc space narrowingand end plate irregularity, most prominent at C5-C6. Incidental well-corticated calcification alongthe nuchal ligament. Calcifications along the ligamentum flavum noted at C6, unchanged. OTHER BONES: No acute abnormality. CERVICAL SOFT TISSUES AND LUNG APICES: Normal soft tissues. Scattered atherosclerotic vascular calcifications. Right palatine tonsilloliths. Visualized lung apices are clear. Punctate calcification within the right thyroid lobe without evidence of nodule, which does not require follow-up. IMPRESSION: No acute abnormality of the head or cervical spine. I have personally reviewed the images and I agree with this report. WSN: [id number] Ordering Physician: Suresh Gee Dictated By: Annalisa Garcia MD Dictated Date/Time: 08/07/22 8:04 pm Reviewed By: Valorie Markham MD Signed By: Valorie Markham MD Signed Date/Time: 08/07/22 8:09 pm Transcribed By: CSB Transcribed Date/Time: 08/07/22 7:[address] Head WO contrast * BHSPowerscribe , CIS S: TRANSCRIBE Valorie Markham MD: VERIFY Annalisa Garcia MD: SIGN Event Display: Result: Authored Date: [id number] CT Head/Brain W/O Contrast, CT Cervical Spine W/O Contrast INDICATION: Reason: Trauma; Clinical Question(s): Hematoma TECHNIQUE: Noncontrast head CT using axial technique was reconstructed in axial and coronal planes.Noncontrast spiral CT through the cervical spine was formatted in 3 planes. Automatic tube modulation was used for the cervical spine and iterative dose reconstruction was used for both the head and cervical spine to optimize scan parameters and image quality. CTDIvol Body: 23.31 mGy, DLP Body: 648 mGy*cm. CTDIvol Head: 44.82 mGy, DLP Head: 807 mGy*cm. COMPARISON: None. FINDINGS: Pharmacy Technologist View Findings, Lines and Tubes: None. BRAIN AND EXTRA-AXIAL SPACES: No parenchymal hemorrhage, midline shift, or mass effect. Gaines-white matter differentiation is wellpreserved. Chronic lacunar infarcts within the right frontal deep white matter and right caudate head. No CT signs of acute infarct. Negative insular ribbon sign. Atherosclerotic vascular calcification of the carotid arteries but negative hyperdense vessel sign. Mild prominence of the ventricles and sulci consistent with parenchymal volume loss. Mild low-density white matter changes. No subarachnoid hemorrhage. No subdural or epidural collection. CALVARIUM, SKULL BASE, AND SOFT TISSUES: No fractures or suspicious bony lesions. Mucous retention cyst within the right maxillary sinus. The mastoid air cells are clear. Visualized orbits and globes are intact. The extracranial soft tissues are unremarkable. CERVICAL SPINE: No fracture. No acute osseous abnormalities. Normal alignment. No locked or perched facet. Moderate multilevel degenerative disc space narrowingand end plate irregularity, most prominent at C5-C6. Incidental well-corticated calcification alongthe nuchal ligament. Calcifications along the ligamentum flavum noted at C6, unchanged. OTHER BONES: No acute abnormality. CERVICAL SOFT TISSUES AND LUNG APICES: Normal soft tissues. Scattered atherosclerotic vascular calcifications. Right palatine tonsilloliths. Visualized lung apices are clear. Punctate calcification within the right thyroid lobe without evidence of nodule, which does not require follow-up. IMPRESSION: No acute abnormality of the head or cervical spine. I have personally reviewed the images and I agree with this report. WSN: [id number] Ordering Physician: Suresh Gee Dictated By: Annalisa Garcia MD Dictated Date/Time: 08/07/22 8:04 pm Reviewed By: Valorie Markham MD Signed By: Valorie Markham MD Signed Date/Time: 08/07/22 8:09 pm Transcribed By: MARC Transcribed Date/Time: 08/07/22 7:53 pm Patient Care team information Care Team Personnel [...] Member Role: Primary Care Nurse Name: Ashlyn Hisrch Position: [facility] RN Member Role: Primary Care Nurse Name: Shelby Boothe RN Position: [facility] PCO w/OE and EZ Script Member Role: Primary Care Nurse Name: Francoise Whaley RN Position: [facility] Hospital Independent Beauty Consultant Member Role: Primary Care Nurse Name: AndiRon BARNES Attending Position: [facility] ED Medicine MD Name: Fanny Sibley RN Position: [facility] ED RN W/OE and Tasks Member Role: Patient Care Provider Name: Dhara Guajardo Position: [facility] ED TA [facility] Member Role: Staffing Program Manager Care Team Related Persons Name: KATINA OPAL Address: [address] [address] Name: QUAN LOMBARDO Name: AMOS LOMBARDO Address: [place] [address]
--- OUTSIDE RECORDS SUMMARY | 2023-05-03 21:45 | XMS_ITS | Continuity of Care Document ---
Author Name Unknown Organization [facility] ter Address [address] [place] [id number]- Care Team Providers Care Cigar Head Holer Name Role Phone Maximo Morfin MD Primary Care Physician [phone] Encounter [facility] Date(s): 01/11/23 - 01/12/[address] [address]- Encounter Diagnosis Alcohol intoxication(Final) - 01/12/23 Discharge Disposition: A-D/C Home Attending Physician: Brianda Thakkar DO Admitting Physician: Brianda Thakkar DO Referring Physician: Not on Staff, Referring MD Allergies, Adverse Reactions, Alerts Substance Reaction Severity Status Bee Stings Active Immunizations Given and Recorded Vaccine Date Status Refusal Reason influenza virus vaccine, inactivated 05/15/22 Marcos rded influenza virus vaccine, inactivated 04/15/22 Marcos rded influenza virus vaccine, inactivated 09/10/21 Marcos rded influenza virus vaccine, inactivated 05/10/17 Marcos rded influenza virus vaccine, inactivated 04/27/16 Marcos rded [id number] 12y+ bivalent booster vax 05/15/22 Recorded SARS-CoV-2 mRNA ([id number]) vax 11/19/21 Recorded tetanus/diphtheria/pertussis, acel(Tdap) 08/05/21 Recorded [...] 12/27/22 10:16:00 EDT, Route to Pharmacy Electronically, [facility], Partial fill upo... Start Date: 12/27/22 Stop Date: 02/04/23 Status: Ordered apixaban Starter Pack 5 mg oral tablet 2 tablet = 10 mg, By Mouth, 2 times a day, followed by 1 tablet by mouth twice daily for 23 days, #74 tablet, 0 Refills, Maintenance, 11/03/22 9:55:00 EDT, [facility], Partial fill upon [...] 12/21/22 14:06:00 EDT, Route to Pharmacy Electronically, [facility], Partial fill upon [...] 0 Refills, Maintenance, 01/05/23 9:31:00 EDT, Tablet, [facility], Partial fill upon patient request if [...] 0 Refills, Maintenance, 10/15/20 10:30:00 EDT, Tablet, [facility], Partial fill upon patient request [...] 01/05/23 9:00:00 EDT, Route to Pharmacy Electronically, [facility], Partial fill upon patient request if theprescription is for a schedule II opioid drug., 180... Start Date: 01/05/23 Status: Ordered Senna 8.6 mg oral tablet 8.6 mg, 1, tablet, By Mouth, Daily at bedtime, # 30 tablet, Refills 0, Tot. Refills 0, Maintenance,01/05/23 8:59:00 EDT, Route to Pharmacy Electronically, [facility], Partial fill uponpatient request [...] Exam Date Time Procedure Performing Provider Status 01/11/23 4:[address] Head/Brain W/O Contrast Cyndi Barone ; Auth (Verified) Notes: (CT Head/Brain W/O Contrast) Reason For Exam: Trauma RESULT: CT Head/Brain W/O Contrast CT Head/Brain W/O Contrast INDICATION: Trauma; Clinical Question(s): Hematoma; TECHNIQUE: Noncontrast head CT using axial technique and reconstructed in axial and coronal planes.Iterative reconstruction techniques are used to optimize dose and image quality. CTDIvol Head: 45.06 mGy, DLP Head: 811 mGy*cm. COMPARISON: CT head from 01/06/2023 FINDINGS: Owner view findings, lines and tubes: None. BRAIN AND EXTRA-AXIAL SPACES: No parenchymal hemorrhage, midline shift, or mass effect. Unchanged left frontal dural based partially calcification lesion measuring 1.4 cm, similar to prior study, suggestive of meningioma. Gaines-white matter differentiation is well preserved. No acute infarct. Negative insular ribbon and hyperdense vessel signs. Ventricles, sulci, and basilar cisterns are normal. Mild low-density white matter changes. Possible small chronic lacunar infarct in the right cerebellar hemisphere on image 30 2001, unchanged. Chronic lacunar infarct in the head of the right caudate nucleus, unchanged. No subarachnoid hemorrhage. No subdural or epidural collection. CALVARIUM, SKULL BASE, AND SOFT TISSUES: No fractures or suspicious bony lesions. Small mucous retention cyst/polyp in the left maxillary sinus. Mild right frontal sinus mucosal thickening. The mastoid air cells are clear. Visualized orbits and globes are intact. The extracranial soft tissues are unremarkable. IMPRESSION: 1. No acute intracranial pathology. 2. Unchanged small left frontal meningioma. I have personally reviewed the images and I agree with this report. WSN: [id number] Ordering Physician: Jordana Tse Dictated By: Toy Mcintosh MD Dictated Date/Time: 01/11/23 5:04 pm Reviewed By: Velia Salas MD Signed By: Velia Salas MD Signed Date/Time: 01/11/23 5:09 pm Transcribed By: MARC Transcribed Date/Time: 01/11/23 4:56 pm * Exam Date Time Procedure Performing Provider Status 01/11/23 4:36 PM Chest 2 Views Frontal and Lat Charlotte Weathers; [place] (Verified) Notes: (Chest 2 Views Frontal and Lat) Reason For Exam: Shortness of Breath, Fever;Other: RESULT: Chest 2 Views Frontal and Lat Chest 2 Views Frontal and Lat Reason: Shortness of Breath, Fever; Clinical Question(s): Pneumonia COMPARISON: Multiple priors, most recent chest x-ray 12/30/2022, chest CT 12/25/2022. FINDINGS: LINES AND TUBES: None. LUNGS AND PLEURA: Increasing retrocardiac opacity, best seen on the lateral view. Increasing bibasilar opacities likely represent atelectasis. Normal pulmonary vascularity. No pleural effusion. No pneumothorax. HEART, MEDIASTINUM AND MARCY: Heart is normal in size. Unchanged mediastinal and hilar contour. BONES AND SOFT TISSUES: No acute abnormality. Multiple chronic right-sided rib fractures, some of which have undergone surgical fixation. IMPRESSION: Increasing retrocardiac opacity concerning for developing pneumonia. I have personally reviewed the images and I agree with this report. WSN: [id number] Ordering Physician: Jordana Tse Dictated By: Annalisa Garcia MD Dictated Date/Time: 01/11/23 4:46 pm Reviewed By: Oumar Jon MD Signed By: Oumar Jon MD Signed Date/Time: 01/11/23 4:51 pm Transcribed By: MARC Transcribed Date/Time: 01/11/23 4:43 pm Vital Signs Most recent to oldest [Reference Range]: 1 2 3 Oxygen Saturation [94-100 %] 98 % (01/12/23 3:49 AM) 98 % (01/12/23 12:49 AM) 99 % (01/11/23 7:47 PM) Pulse Rate [55-90 bpm] 85 bpm (01/12/23 3:49 AM) 95 bpm *H* (01/12/23 12:49 AM) 77 bpm (01/11/23 7:47 PM) Blood Pressure [90-138/55-84 mm Hg] 134/73mm Hg (01/12/23 3:49 AM) 117/82mm Hg (01/12/23 12:49 AM) 106/55mm Hg (01/11/23 7:47 PM) Respiratory Rate [16-30 br/min] 18 br/min (01/12/23 3:49 AM) 15 br/min *L* (01/12/23 12:49 AM) 19 br/min (01/11/23 7:47 PM) Temperature [96.8-100.4 DegF] 98.3 DegF (01/12/23 12:49 AM) Liters per Minute 4 L/min (01/11/23 7:47 PM) 6 L/min (01/11/23 3:30 PM) Mode of Delivery (Oxygen) Room air (01/12/23 3:49 AM) Room air (01/12/23 12:49 AM) Nasal cannula (01/11/23 7:47 PM) Blood pressure sites Arm, left (01/12/23 12:49 AM) Arm, right (01/11/23 4:52 PM) Temperature Route Oral (01/12/23 12:49 AM) Social History Social History Type Response Smoking Status Current every day sm oker; Type: Cigarettes; Other: 6 cigarettes per day; entered on: 09/27/15 Sex Note * Brianda Thakkar DO: PERFORM, SIGN, VERIFY Event Display: Patient Education Handout Authored Date: [id number] * Brianda Thakkar DO: PERFORM Event Display: Patient Education Leaflets Authored Date: [id number] Alcohol Intoxication ?? [id number] Alcohol Intoxication Alcohol intoxication is very serious. It occurs when you drink alcohol faster than your liver can break it down. Severe intoxication is a medical emergency. It's also called alcohol overdose or alcohol poisoning. It can lead to . Here are some pereira facts: ??? It can take 10 minutes or more??to start??to??feel the effects of a drink. So it's easy to drink more than you planned. Binge drinking can lead to an alcohol overdose. Binge drinking is having: o5 or more drinks over a short time for men o 4 or more drinks over a short time for women ??? One drink may be more than 1 serving of alcohol. In some cases, a drink can be 2 to 4 servings. This depends on the type of drink. ??? It takes about 1 hour for your body to break down 1 serving of alcohol. If you have more than 1 drink, it can take a few hours or more. ??? People with alcohol abuse disorders are more likely to get alcohol poisoning. But it can happen to anyone who drinks too much alcohol. Even a first-time drinker is at risk. ??? Many things affect how drinks will affect you. These include: o If you've eaten o How fast you drink o Your weight o How much you normally drink (or not)o Medicines you are taking o If you have a chronic disease o If you are male or female o How old you are Symptoms of alcohol intoxication Mild intoxication ??? Feel more relaxed, less tense ??? Slightly slurred speech ??? Sleepiness ??? Poor motor skills Moderate intoxication ??? Changing behavior, aggression, depression ??? Poor judgment ??? Confusion ??? Trouble focusing ??? Poor balance and coordination ??? Worsening slurred speech Severe intoxication ??? Vomiting ??? Seizures ??? Fainting or passing out (unconscious) ??? Cold, clammy skin ??? Slow or irregular breathing ??? Low body temperature (hypothermia) ??? Coma ?? Health effects Alcohol causes health problems.??This can happen after only drinking a little. There is no set number of drinks or amount of alcohol that's too much.??How much you drink at one time affects your health. And so does drinking often. Alcohol affects your whole body in these ways: ??? Brain.??Alcohol can harm parts of the brain that affect your balance, memory, thinking, and feelings. It can cause memory loss, blackouts, depression, agitation, sleep cycle changes, and seizures. These changes may or may not go away. ??? Heart and vascular system.??Alcohol can damage heart muscle. This can cause the heart muscle to weaken and stretch (cardiomyopathy). This can lead to: o Trouble breathing o Irregular heartbeat o Atrial fibrillation o Leg swelling o Heart failure Alcohol also makes the blood vessels stiffen. This causes high blood pressure. All of these problems raise your risk for heart attacks or strokes. ??? Liver.??Alcohol causes fat to build up in the liver. This affects how the liver works. And it raises the risk for hepatitis. This condition leads to belly pain, appetite loss, yellow skin and eyes (jaundice), and bleeding problems. It also leads to harmful changes in the liver. These include??liver fibrosis and cirrhosis. This can affect your ability to fight off infections. These liver changes stop it from removing toxins in your blood. This can cause a brain disease called encephalopathy. ??? Pancreas.??Alcohol can cause inflammation of the pancreas (pancreatitis). It can lead to belly pain, fever, and diabetes. ??? Immune system.??Alcohol weakens your immune system. This makes it harder to fight off infections and colds. You'll also have a higherrisk of some infections. ??? Cancer risk.??Alcohol raises your risk of some types of cancer. They include cancer of the: o Mouth o Esophagus o Pharynx o Larynx o Liver o Breast ? Sexual function.??Alcohol abuse can also lead to sexual problems. There is no safe level of alcohol use for people who are or thinking of getting . Alcohol use in may cause lifelong harm to the baby. So alcohol should be avoided. It can also cause a group of defects called alcohol spectrum disorder. These defects can include physical problems. And also behavior and learning problems. ?? Home care for alcohol intoxication Follow these tips to care for yourself at home: ??? Don't drink any more alcohol. ??? Don't drive??until all effects of the alcohol have worn off. ??? Don't use machinery that can cause injuries. ??? Get lots of rest over the next few days. ??? Drink plenty of water and other drinks that don't have alcohol. ??? Try to eat regular meals. If you have been drinking a lot every day, you may have alcohol withdrawal. Symptoms often last 3 to 4 days. They may include: ??? Nervousness ??? Shakiness ??? Nausea ??? Sweating ??? Sleeplessness They may also include severe, life-threatening symptoms. These are known as delirium tremens (DTs).DTs typically begin between 48 and 96 hours after the last drink and last 1 to 5 days. They include: ??? Seizures ??? Confusion ??? Seeing or hearing things that are not there (hallucinations) Alcohol withdrawal can cause . Call your healthcare provider before you stop drinking. This isespecially important if you've had DTs during past alcohol withdrawals. They may be able to help you with medicine. They can also refer you to an inpatient detox program. Or stay with family or friends who know when to call for medical help and can support you. If you have severe symptoms, call your provider or call 911 for help (see below). ?? Follow-up care These groups can help you and your loved one: ??? Alcoholics Anonymous (A.A.). Gives support through a self-help fellowship. ?? Find A.A. meetings near you at www.aa.org. ??? Al-Anonaresh. ?? Gives support to families at www.al-anon.org . Or call 844-798-5784. ??? SMART Recovery ( Self- Management and Recovery Training). A nationwide abstinence-oriented support group for people with addictive issues. This free program is focused on motivation to change, urge control, and living a balanced life. For more information and meetings near you, go to www.[employer].org/ ??? Substance Abuse and Mental Health Services Administration ([facility]) Treatment Punch Box Tender. Free information on treatment resources in your area at https://findtreatment.gov/. Or call 216-040-0899. Call 911 Call 911 if any of these occur: ??? Trouble breathing or slow irregular breathing ??? Chest pain ??? Sudden weakness on 1 side of your body or sudden trouble speaking ??? Heavy bleeding or vomiting blood ??? Very sleepy or having trouble waking up ??? Fainting ??? Fast heart rate ??? Seizure ?? When to get medical advice Call your healthcare provider right away if any of these occur: ??? Severe shakiness? Fever of100.4??F (38??C) or higher, or as advised by your provider ??? Confusion or hallucinations ??? Painin your upper belly that gets worse ??? Repeated vomiting ?? Last Reviewed Date: 2021 ?? 8139-4933 [employer]. All rights reserved. This information is not intended as a substitute for professional medical care. Always follow your healthcare professional's instructions. ?? Patient Care team information Care Team Personnel Name: Unique Dubon RN Position: [facility] RN Member Role: Primary Care Nurse Name: Maximo Morfin MD Position: [facility] Outreach Member Role: PCP Address: Address: [address] [place] [address] Name: Kadi Oliver RN Position: [facility] AMB Nurse Member Role: Primary Care Nurse Name: Mary Roberson RN Position: [facility] RN Member Role: Primary Care Nurse Name: Daniel Rodriguez RN Position: [facility] RN Member Role: Primary Care Nurse Name: Liz Sweet RN Position: [facility] RN Member Role: Primary Care Nurse Name: Dev De León RN Position: [facility] RN Member Role: Primary Care Nurse Name: Alexa Mitchell LPN Position: [facility] RN Member Role: Primary Care Nurse Name: Mary Arceo RN Position: [facility] RN Member Role: Primary Care Nurse Name: Toyin Contreras RN Position: [facility] Onco RN Member Role: Primary Care Nurse Name: Tierra Juan RN Position: [facility] SN RN Member Role: Primary Care Nurse Name: Veena Arthur RN Position: [facility] RN Member Role: Primary Care Nurse Name: Toshia Arce RN Position: [facility] RN Member Role: Primary Care Nurse Name: Ashlyn Kenney Position: [facility] AMB MA Member Role: Primary Care Nurse Name: Sameera Chappell RN Position: [facility] RN Member Role: Primary Care Nurse Name: Velia Shepherd RN Position: [facility] RN Member Role: Primary Care Nurse Name: Shelby Boothe RN Position: [facility] PCO w/OE and EZ Script Member Role: Primary Care Nurse Name: Francoise Whaley RN Position: [facility] Hospital Training Developer Member Role: Primary Care Nurse Name: Elizabeth Chung RN Position: [facility] RN Member Role: Primary Care Nurse [facility]: [facility] Attending Position: [facility] ED Attendings Patient Name: Corey Loaizaanca Position: [facility] ED TA [facility] Member Role: Catcher Plug Name: Ethan Ochoa Position: [facility] ED RN W/OE and Tasks Member Role: Patient Care Provider Name: Brianda Thakkar DO Position: [facility] ED Medicine MD Member Role: Admitting Physician Address: Address: [address] [place] [id number] [place] Care Team Related Persons Name: KATINA, AMY Address: home [address] [place] [id number] Name: QUAN LOMBARDO Address: home [address] [place] [address] Name: AMOS LOMBARDO Address: [place] [address]
--- OUTSIDE RECORDS SUMMARY | 2023-05-03 21:45 | XMS_ITS | Continuity of Care Document ---
Author Name Unknown Organization [facility] ter Address [address] [place] [id number]- Care Team Providers Care Alumnae Secretary Name Role Phone Not on Staff, PCP Primary Care Physician Unavail able Encounter [facility] [place] Date(s): 11/16/22 - 11/17/[address] [address]- Encounter Diagnosis Alcohol intoxication(Final) - 11/16/22 Fall(Final) - 11/16/22 Abrasion(Final) - 11/16/22 Discharge Disposition: A-D/C Home Attending Physician: Zan Sánchez MD Admitting Physician: Zan Sánchez MD Referring Physician: Not on Staff, Referring MD Allergies, Adverse Reactions, Alerts Substance Reaction Severity Status Bee Stings Active Immunizations Given and Recorded Vaccine Date Status Refusal Reason influenza virus vaccine, inactivated 05/15/22 Marcos rded influenza virus vaccine, inactivated 04/15/22 Marcos rded influenza virus vaccine, inactivated 09/10/21 Marcos rded influenza virus vaccine, inactivated 05/10/17 Marcos rded influenza virus vaccine, inactivated 04/27/16 Marcos rded [id number] 12y+ bivalent booster vax 05/15/22 Recorded SARS-CoV-2 mRNA ([id number]) vax 11/19/21 Recorded tetanus/diphtheria/pertussis, acel(Tdap) 08/05/21 Recorded [...] tablet, 0 Refills, Maintenance, 11/03/22 9:55:00 EDT, [facility], Partial fill upon patient [...] 0 Refills, Maintenance, 10/15/20 10:30:00 EDT, Tablet, [facility], Partial fill upon patient request if the prescription is for a schedule II opioid drug., 1 tablet By Mouth Daily, 180, cm, ... Start Date: 10/15/20 Status: Ordered Nicoderm C-Q 7 mg/24 hr transdermal film, extended release 1 patch, Topically, Daily, for 30 days, # 30 patch, 0 Refills, Acute 12/08/22 8:26:00 EDT, :26:00 EDT, Patch, [facility], Partial fill upon patient request if the [...] Exam Date Time Procedure Performing Provider Status 11/16/22 7:[address] Cervical Spine W/O Contrast Neri Taylor; [place] (Verified) Notes: (CT Cervical Spine W/O Contrast) Reason For Exam: Neck trauma, dangerous injury mechanism;Other: RESULT: CT Cervical Spine W/O Contrast CT Head/Brain W/O Contrast, CT Cervical Spine W/O Contrast INDICATION: Hx of Present Illness: head injury; Reason: Trauma; Clinical Question(s): Hematoma TECHNIQUE: Noncontrast head CT using axial technique was reconstructed in axial and coronal planes.Noncontrast spiral CT through the cervical spine was formatted in 3 planes. Automatic tube modulation was used for the cervical spine and iterative dose reconstruction was used for both the head and cervical spine to optimize scan parameters and image quality. COMPARISON: 10/29/2022 FINDINGS: Boatswain'S Mate View Findings, Lines and Tubes: None. BRAIN [...] abnormality of the head or cervical spine. WSN: [id number] Ordering Physician: Bernie Marrufo Dictated By: Eleuterio Gaston MD Dictated Date/Time: 11/16/22 7:54 pm Reviewed By: Eleuterio Gaston MD Signed By: Eleuterio Gaston MD Signed Date/Time: 11/16/22 7:54 pm Transcribed By: MARC Transcribed Date/Time: 11/16/22 7:44 pm * Exam Date Time Procedure Performing Provider Status 11/16/22 7:[address] Head/Brain W/O Contrast Neri Farr (Verified) Notes: (CT Head/Brain W/O Contrast) Reason For Exam: Trauma RESULT: CT Head/Brain W/O Contrast CT Head/Brain W/O Contrast, CT Cervical Spine W/O Contrast INDICATION: Hx of Present Illness: head injury; Reason: Trauma; Clinical Question(s): Hematoma TECHNIQUE: Noncontrast head CT using axial technique was reconstructed in axial and coronal planes.Noncontrast spiral CT through the cervical spine was formatted in 3 planes. Automatic tube modulation was used for the cervical spine and iterative dose reconstruction was used for both the head and cervical spine to optimize scan parameters and image quality. COMPARISON: 10/29/2022 FINDINGS: Boatswain'S Mate View Findings, Lines and Tubes: None. BRAIN [...] abnormality of the head or cervical spine. WSN: [id number] Ordering Physician: Bernie Marrufo Dictated By: Eleuterio Gaston MD Dictated Date/Time: 11/16/22 7:54 pm Reviewed By: Eleuterio Gaston MD Signed By: Eleuterio Gaston MD Signed Date/Time: 11/16/22 7:54 pm Transcribed By: MARC Transcribed Date/Time: 11/16/22 7:44 pm Vital Signs Most recent to oldest [Reference Range]: 1 2 3 Oxygen Saturation [94-100 %] 95 % (11/17/22 4:38 AM) 95 % (11/16/22 8:04 PM) 95 % (11/16/22 6:32 PM) Pulse Rate [55-90 bpm] 78 bpm (11/17/22 4:45 AM) 78 bpm (11/17/22 4:38 AM) 76 bpm (11/16/22 8:04 PM) Blood Pressure [90-138/55-84 mm Hg] 113/72mm Hg (11/17/22 4:45 AM) 113/72mm Hg (11/17/22 4:38 AM) 100/63mm Hg (11/16/22 8:04 PM) Respiratory Rate [16-30 br/min] 18 br/min (11/17/22 4:45 AM) 18 br/min (11/17/22 4:38 AM) 18 br/min (11/16/22 8:04 PM) Temperature [96.8-100.4 DegF] 98.3 DegF (11/17/22 4:38 AM) 98.3 DegF (11/16/22 6:32 PM) Mode of Delivery (Oxygen) Room air (11/17/22 4:38 AM) Room air (11/16/22 8:04 PM) Room air (11/16/22 6:32 PM) Blood pressure sites Arm, left (11/17/22 4:38 AM) Temperature Route Oral (11/17/22 4:38 AM) Oral (11/16/22 6:32 PM) Social History Social History Type Response Smoking Status Current every day aj adams; Type: Cigarettes; Other: 6 cigarettes per day; entered on: 09/27/15 Sex Note * Bernie Marrufo DO: PERFORM Event Display: Patient Education Leaflets Authored Date: [id number] Alcohol Intoxication ?? [id number] Alcohol Intoxication Alcohol intoxication is very serious. [...] A.A. meetings near you at www.aa.org. ??? Al-Anon. ?? Gives support to families at www.al-anon.org . Or call 948-051-6401. ??? SMART Recovery ( Self- Management and Recovery Training). A nationwide abstinence-oriented support group for people with addictive issues. This free program is focused on motivation to change, urge control, and living a balanced life. For more information and meetings near you, go to www.[employer].org/ ??? Substance Abuse and Mental Health Services Administration (SAMHSA) Treatment Inspection Supervisor. Free information on treatment resources in your area at https://findtreatment.gov/. Or call 299-795-3760. Call 911 Call 911 if any of [...] vomiting ?? Last Reviewed Date: 2021 ?? 1562-3625 [employer]. All rights reserved. This information is not intended as a substitute for professional medical care. Always follow your healthcare professional's instructions. ?? CT Cervical spine WO contrast * BHSPowersclarry , CIS S: Eleuterio Lemus MD: VERIFY Event Display: Result: Authored Date: [id number] CT Head/Brain W/O Contrast, CT Cervical Spine W/O Contrast INDICATION: Hx of Present Illness: head injury; Reason: Trauma; Clinical Question(s): Hematoma TECHNIQUE: Noncontrast head CT using axial technique was reconstructed in axial and coronal planes.Noncontrast spiral CT through the cervical spine was formatted in 3 planes. Automatic tube modulation was used for the cervical spine and iterative dose reconstruction was used for both the head and cervical spine to optimize scan parameters and image quality. COMPARISON: 10/29/2022 FINDINGS: Boatswain'S Mate View Findings, Lines and Tubes: None. BRAIN AND EXTRA-AXIAL SPACES: No parenchymal hemorrhage, midline shift, or mass effect. Gaiens-white matter differentiation is wellpreserved. No acute infarct. [...] abnormality of the head or cervical spine. WSN: [id number] Ordering Physician: Bernie Marrufo Dictated By: Eleuterio Gaston MD Dictated Date/Time: 11/16/22 7:54 pm Reviewed By: Eleuterio Gaston MD Signed By: Eleuterio Gaston MD Signed Date/Time: 11/16/22 7:54 pm Transcribed By: MARC Transcribed Date/Time: 11/16/22 7:[address] Head WO contrast * BHSPowerscribe , CIS S: TRANSCRIBE Eleuterio Gaston MD: VERIFY Event Display: Result: Authored Date: [id number] CT Head/Brain W/O Contrast, CT Cervical Spine W/O Contrast INDICATION: Hx of Present Illness: head injury; Reason: Trauma; Clinical Question(s): Hematoma TECHNIQUE: Noncontrast head CT using axial technique was reconstructed in axial and coronal planes.Noncontrast spiral CT through the cervical spine was formatted in 3 planes. Automatic tube modulation was used for the cervical spine and iterative dose reconstruction was used for both the head and cervical spine to optimize scan parameters and image quality. COMPARISON: 10/29/2022 FINDINGS: Boatswain'S Mate View Findings, Lines and Tubes: None. BRAIN [...] abnormality of the head or cervical spine. WSN: [id number] Ordering Physician: Bernie Marrufo Dictated By: Eleuterio Gaston MD Dictated Date/Time: 11/16/22 7:54 pm Reviewed By: Eleuterio Gaston MD Signed By: Eleuterio Gaston MD Signed Date/Time: 11/16/22 7:54 pm Transcribed By: MARC Transcribed Date/Time: 11/16/22 7:44 pm Patient Care team information Care Team Personnel Name: Unique Dubon RN Position: [facility] RN Member Role: Primary Care Nurse Name: Kadi Oliver RN Position: [facility] AMB Nurse Member Role: Primary Care Nurse Name: Mary Roberson RN Position: [facility] SN RN Member Role: Primary Care Nurse Name: Daniel Rodriguez RN Position: [facility] RN Member Role: Primary Care Nurse Name: Liz Sweet RN Position: [facility] RN Member Role: Primary Care Nurse Name: Toyin Contreras RN Position: [facility] Onco RN Member Role: Primary Care Nurse Name: Not on Staff, PCP Position: [facility] Physician (General Medicine) Member Role: PCP Name: Tierra Juan RN Position: [facility] SN RN Member Role: Primary Care Nurse Name: Veena Arthur RN Position: [facility] RN Member Role: Primary Care Nurse Name: Toshia Arce RN Position: [facility] RN Member Role: Primary Care Nurse Name: Velia Shepherd RN Position: [facility] RN Member Role: Primary Care Nurse Name: Shelby Boothe RN Position: [facility] PCO w/OE and EZ Script Member Role: Primary Care Nurse Name: Francoise Whaley RN Position: [facility] Hospital Barrel Waterer Member Role: Primary Care Nurse Name: Elizabeth Chung RN Position: [facility] RN Member Role: Primary Care Nurse Name: *[facility], ED Attending Position: [facility] ED Attendings Patient Name: Katina Ivory RN Position: [facility] ED RN W/OE and Tasks Member Role: Patient Care Provider Name: Isabel Rivas RN Position: [facility] ED RN W/OE and Tasks Member Role: Patient Care Provider Name: Zan Sánchez MD Position: [facility] ED Medicine MD Member Role: Admitting Physician Address: Address: [address] [place] [address] [place], [place] [address] Name: Shannen Squires Position: [facility] ED TA [facility] Member Role: Patient Care Provider Care Team Related Persons Name: OPAL AMBRIZ Address: [address] [address] Name: QUAN LOMBARDO Name: AMOS LOMBARDO Address: [place] [address]
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
--- OUTSIDE RECORDS SUMMARY | 2023-05-03 21:45 | XMS_ITS | Continuity of Care Document ---
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 Name Role Phone Navjot BELTRÁN, Maximo Primary Care Physician Encounter [facility] Date(s): 01/18/23 - 01/19/[address] [address]- Encounter Diagnosis Chest discomfort(Final) - 01/19/23 Discharge Disposition: A-D/C Home Attending Physician: Farida Graves MD Admitting Physician: Farida Graves MD Referring Physician: Not on Staff, Referring MD Allergies, Adverse Reactions, Alerts Substance Reaction Severity Status Bee Stings Active Immunizations Given and Recorded Vaccine Date Status Refusal Reason influenza virus vaccine, inactivated 05/15/22 Marcos rded influenza virus vaccine, inactivated 04/15/22 Marcos rded influenza virus vaccine, inactivated 09/10/21 Marcos rded influenza virus vaccine, inactivated 05/10/17 Marcos rded influenza virus vaccine, inactivated 04/27/16 Marcos rded [id number] 12y+ bivalent booster vax 05/15/22 Recorded SARS-CoV-2 mRNA (euczead-xeat-vzsta) vax 11/19/21 Recorded tetanus/diphtheria/pertussis, acel(Tdap) 08/05/21 Recorded [...] 12/27/22 10:16:00 EDT, Route to Pharmacy Electronically, [facility], Partial fill upo... Start Date: 12/27/22 Stop Date: 02/04/23 Status: Ordered apixaban Starter Pack 5 mg oral tablet 2 tablet = 10 mg, By Mouth, 2 times a day, followed by 1 tablet by mouth twice daily for 23 days, #74 tablet, 0 Refills, Maintenance, 11/03/22 9:55:00 EDT, [facility], Partial fill upon patient request [...] 12/21/22 14:06:00 EDT, Route to Pharmacy Electronically, [facility], Partial fill upon patient request [...] 0 Refills, Maintenance, 01/05/23 9:31:00 EDT, Tablet, [facility], Partial fill upon patient request [...] 0 Refills, Maintenance, 10/15/20 10:30:00 EDT, Tablet, [facility], Partial fill upon patient request [...] 01/05/23 9:00:00 EDT, Route to Pharmacy Electronically, [facility], Partial fill upon patient request if theprescription is for a schedule II opioid drug., 180... Start Date: 01/05/23 Status: Ordered Senna 8.6 mg oral tablet 8.6 mg, 1, tablet, By Mouth, Daily at bedtime, # 30 tablet, Refills 0, Tot. Refills 0, Maintenance,01/05/23 8:59:00 EDT, Route to Pharmacy Electronically, [facility], Partial fill uponpatient request if [...] recent to oldest [Reference Range]: 1 2 Oxygen Saturation [94-100 %] 94 % (01/18/23 8:25 PM) 96 % (01/18/23 5:00 PM) Pulse Rate [55-90 bpm] 77 bpm (01/18/23 8:25 PM) 74 bpm (01/18/23 5:00 PM) Blood Pressure [90-138/55-84 mm Hg] 138/ 90mm Hg (01/18/23 8:25 PM) 135/77mm Hg (01/18/23 5:00 PM) Respiratory Rate [16-30 br/min] 18 br/mi n (01/18/23 8:25 PM) 14 br/min *L* (01/18/23 5:00 PM) Mode of Delivery (Oxygen) Room air (01/18/23 8:25 PM) Room air (01/18/23 5:00 PM) Blood pressure sites Arm, right (01/18/23 8:25 PM) Arm, left (01/18/23 5:00 PM) Social History Social History Type Response Smoking Status Current every day sm oker; Type: Cigarettes; Other: 6 cigarettes per day; entered on: 09/27/15 Sex EKG study * Event Display: EKG Authored Date: [id number] Note * Hina BELTRÁN, Monik: PERFORM Event Display: Patient Education Leaflets Authored Date: [id number] Uncertain Causes of Chest Pain ?? [id number] Uncertain Causes of Chest Pain Chest pain can happen for a number of reasons. Sometimes the cause can't be determined. If your??condition does not seem serious, and your pain does not appear to be coming from your heart, your healthcare provider may recommend watching it closely. Sometimes the signs of a serious problem take more time to appear. Many problems not related to your heart can cause chest pain. These include: ??? Musculoskeletal. Costochondritis is an inflammation of the tissues around the ribs that can occur from trauma or overuse injuries, or a strain of the muscles of the chest wall. ??? Respiratory. Pneumonia, collapsed lung (pneumothorax), or inflammation of the lining of the chest and lungs (pleurisy). ??? Gastrointestinal. Esophageal reflux, heartburn, ulcers, or gallbladder disease. ??? Anxiety and panic disorders ??? Nerve compression and inflammation ??? Rare problems such as aortic aneurysm or aortic dissection (a swelling of the large artery coming out of the heart or a tear in the wall of the artery), or pulmonary embolism (a blood clot in the lungs). Home care After your visit, follow these recommendations: ??? Rest today and avoid strenuous activity. ??? Take any prescribed medicine as directed. ??? Be aware of any recurrent chest pain and notice any changes ?? Follow-up care Follow up with your healthcare provider if you don't start to feel better within 24 hours, or as advised. ?? Call 911 Call 911 if any of these occur: ??? A change in the type of pain: if it feels different, becomes more severe, lasts longer, or begins to spread into your shoulder, arm, neck, jaw or back ??? Shortness of breath or increased pain with breathing ??? Weakness, dizziness, or fainting ??? Rapid heartbeat ??? Crushing sensation in your chest ??? Coughing up more than a small amount of blood. ?? When to seek medical advice Call your healthcare provider right away if any of the following occur: ??? Cough with dark coloredsputum (phlegm) or small amount of blood ??? Fever of 100.4??F??(38??C) or higher, or as directed by your healthcare provider ??? Swelling, pain or redness in one leg ?? Last Reviewed Date: 2021 ?? [id number] [employer]. All rights reserved. This information is not intended as a substitute for professional medical care. Always follow your healthcare professional's instructions. ?? * Hina BELTRÁN, Monik: PERFORM Event Display: Patient Education Leaflets Authored Date: [id number] Unknown Causes of Abdominal Pain (Adult) ?? [id number] Unknown Causes of Abdominal Pain (Adult) The exact cause of your belly (abdominal) pain is not clear. Your exam and tests don't suggest a dangerous cause at this time. This does not mean that this is something to worry about. Everyone likesto know the exact cause of the problem. But sometimes with belly pain, there is no clear-cut cause,and this could be a good thing. Your symptoms can be treated, and you should feel better.?? Your condition does not seem serious now. But sometimes the signs of a serious problem may take more time to appear. For this reason,??it's important for you to watch for any new symptoms, problems,??or worsening of your condition. Over the next few days, the abdominal pain may come and go. Or it may be constant. Other common symptoms can include nausea and vomiting. Sometimes it can be difficult to tell if you feel nauseous. You may just feel bad and not connect that feeling to nausea. Constipation, diarrhea, and a fever maygo along with the pain. The pain may continue even if treated correctly over the following days. Depending on how things go, sometimes the cause can become clear and you may need more??or different treatment. You may also need other evaluations, medicines, or tests. Home care Your healthcare provider may prescribe medicine for pain, symptoms, or an infection. ??Follow the healthcare provider's instructions for taking these medicines. General care ??? Rest as much as you can until your next exam. No strenuous activities. ??? Try to not do anything that may have caused your symptoms. This might be not taking any medicines unless otherwise directed by your healthcare provider. It might be not eating certain foods or doing certain activities. ??? Find positions that ease discomfort. A small pillow placed on your belly may help relieve pain. ??? Something warm on your belly such as a heating pad may help, but be careful not to burn yourself. Diet ??? Don???t??force yourself to eat, especially if having cramps, vomiting, or diarrhea. ??? Water is important so you don't get dehydrated. Soup may also be good. Sports drinks may also help, especially if they are not too acidic. Don't drink sugary drinks as this can make things worse. Take liquids in small amounts. Don???t??guzzle them. ??? Caffeine sometimes makes the pain and cramping worse. ??? Don???t take??dairy products if you have vomiting or diarrhea. ??? Don't eat large amounts at a time. Eat several small meals during the day instead of 2 or 3 larger meals. Wait a few minutesbetween bites. ??? Eat a diet low in fiber (called a low-residue diet). Foods allowed include refined breads, white rice, fruit and vegetable juices without pulp, tender meats. These foods will pass more easily through the intestine. ??? Don???t have??whole-grain foods, whole fruits and vegetables,meats, seeds and nuts, fried or fatty foods, dairy, alcohol and spicy foods until your symptoms go away. ?? Follow-up care Follow up with your healthcare provider, or as advised, if your pain does not begin to improve in the next 24 hours. ?? Call 911 Call?? 911 if any of these occur: ??? Trouble breathing ??? Confusion ??? Fainting or loss of consciousness ??? Rapid heart rate ??? Seizure ?? When to seek medical advice Call your healthcare provider right away if any of these occur: ??? Pain gets worse or moves to theright lower abdomen ??? New or worsening vomiting or diarrhea ??? Swelling of the abdomen ??? Unable to pass stool for more than??3 days ??? Fever of 100.4??F (38??C) or higher, or as directed by your healthcare provider ??? Blood in vomit or bowel movements (dark red or black color) ??? Yellow color of eyes and skin (jaundice) ??? Weakness, dizziness ??? Chest, arm, back, neck, or jaw pain ??? Can't keep down medicines, liquids, or water because of too much vomiting ??? If you have a vagina: unexpected vaginal bleeding or missed period ?? Last Reviewed Date: 2021 ?? [id number] [employer]. All rights reserved. This information is not intended as a substitute for professional medical care. Always follow your healthcare professional's instructions. ?? Patient Care team information Care Team Personnel Name: Unique Dubon RN Position: [facility] RN Member Role: Primary Care Nurse Name: Maximo Morfin MD Position: [facility] Outreach Member Role: PCP Address: Address: [address] [place] [address] Name: Kadi Oliver RN Position: [facility] AMB Nurse Member Role: Primary Care Nurse Name: Mary Roberson RN Position: [facility] SN RN Member Role: Primary Care Nurse Name: Daniel Rodriguez RN Position: [facility] RN Member Role: Primary Care Nurse Name: Liz Sweet RN Position: [facility] RN Member Role: Primary Care Nurse Name: Dev De León RN Position: [facility] RN Member Role: Primary Care Nurse Name: Alexa Mitchell LPN Position: [facility] RN Member Role: Primary Care Nurse Name: Mary Arceo RN Position: [facility] RN Member Role: Primary Care Nurse Name: Toyin Contreras RN Position: [facility] Onco RN Member Role: Primary Care Nurse Name: Tierra Juan RN Position: [facility] SN RN Member Role: Primary Care Nurse Name: Veena Arthur RN Position: [facility] RN Member Role: Primary Care Nurse Name: Toshia Arce RN Position: [facility] RN Member Role: Primary Care Nurse Name: Ashlyn Kenney Position: [facility] AMB MA Member Role: Primary Care Nurse Name: Sameera Chappell RN Position: [facility] RN Member Role: Primary Care Nurse Name: Velia Shepherd RN Position: [facility] RN Member Role: Primary Care Nurse Name: Shelby Boothe RN Position: [facility] PCO w/OE and EZ Script Member Role: Primary Care Nurse Name: Francoise Whaley RN Position: [facility] Hospital Statistics Intern Member Role: Primary Care Nurse Name: Elizabeth Chung RN Position: [facility] RN Member Role: Primary Care Nurse Name: Sheri Coto RN Position: [facility] ED RN W/OE and Tasks Member Role: Patient Care Provider Name: Star BELTRÁN, Farida Arias Position: [facility] Resident Member Role: Admitting Physician Address: Address: [address] [place] [id number]- Name: Monik Santamaria MD Position: [facility] Resident Member Role: ED Resident Address: Address: [address] [place] [id number]- [place] Name: Arabella Schultz Position: [facility] ED TA [facility] Member Role: Bit Tapper Care Team Related Persons Name: KATINA OPAL Address: home [address] [place] [id number] Name: QUAN LOMBARDO Address: home [address] [place] [address] Name: AMOS LOMBARDO Address: [place] [address]
--- OUTSIDE RECORDS SUMMARY | 2023-05-03 21:45 | XMS_ITS | Continuity of Care Document ---
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 Name Role Phone Not on Staff, PCP Primary Care Physician Unavail able Encounter [facility] Date(s): 12/18/22 - 12/21/[address] [id number]- Encounter Diagnosis Symptomatic anemia(Final) - 12/17/22 Chest pain(Final) - 12/17/22 Elevated troponin(Final) - 12/17/22 Discharge Disposition: A-D/C Home Attending Physician: Clarice Friedman MD Admitting Physician: Jerry Hinojosa DO Referring Physician: [...] influenza virus vaccine, inactivated 04/27/16 Marcos rded [id number] 12y+ bivalent booster vax 05/15/22 Recorded SARS-CoV-2 mRNA ([id number]) vax 11/19/21 Recorded tetanus/diphtheria/pertussis, acel(Tdap) 08/05/21 Recorded [...] tablet, 0 Refills, Maintenance, 11/03/22 9:55:00 EDT, [facility], Partial fill upon patient request [...] 12/21/22 14:06:00 EDT, Route to Pharmacy Electronically, [facility], Partial fill upon patient request [...] oral capsule 300 mg, Capsule, By Mouth, 12/21/22 15:00:00 EDT Start Date: 12/21/22 Stop Date: 12/21/22 Status: Completed gabapentin 300 mg oral capsule [...] 0 Refills, Maintenance, 10/15/20 10:30:00 EDT, Tablet, [facility], Partial fill upon patient request [...] Exam Date Time Procedure Performing Provider Status 12/17/22 9:17 PM Chest 2 Views Frontal and Lat Gaurav Blas; Auth (Verified) Notes: (Chest 2 Views Frontal and [...] AND MARCY: Heart is normal in size. Normal mediastinal and hilar contour. BONES AND SOFT TISSUES: Status post multiple rib fixations. Chronic lower thoracic compression fracture. IMPRESSION: No acute abnormality. WSN: [id number] Ordering Physician: Deloris King Dictated By: Korey Martini MD Dictated Date/Time: 12/17/22 10:08 p Reviewed By: Korey Martini MD Signed By: Korey Martini MD Signed Date/Time: 12/17/22 10:08 pm Transcribed By: MARC Transcribed Date/Time: 12/17/22 10:07 pm * Exam Date Time Procedure Performing Provider Status 12/17/22 7:[address] Cervical Spine W/O Contrast Yumiko Barone; Auth (Verified) Notes: (CT Cervical Spine W/O [...] DLP Head: 810 mGy*cm. 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 BRAIN [...] of the head or cervical spine. WSN: [id number] Ordering Physician: Deloris King Dictated By: Eleuterio Gaston MD Dictated Date/Time: 12/17/22 7:19 pm Reviewed By: Eleuterio Gaston MD Signed By: Eleuterio Gaston MD Signed Date/Time: 12/17/22 7:19 pm Transcribed By: MARC Transcribed Date/Time: 12/17/22 7:13 pm * Exam Date Time Procedure Performing Provider Status 12/17/22 7:[address] Head/Brain W/O Contrast Cyndi Barone ; Auth (Verified) Notes: (CT Head/Brain W/O Contrast) Reason For Exam: Other: RESULT: CT Head/Brain W/O Contrast CT [...] DLP Head: 810 mGy*cm. 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 BRAIN [...] of the head or cervical spine. WSN: [id number] Ordering Physician: Deloris King Dictated By: Eleuterio Gaston MD Dictated Date/Time: 12/17/22 7:19 pm Reviewed By: Eleuterio Gaston MD Signed By: Eleuterio Gaston MD Signed Date/Time: 12/17/22 7:19 pm Transcribed By: LEWISB Transcribed Date/Time: 12/17/22 7:13 pm * Exam Date Time Procedure Performing Provider Status 12/17/22 6:59 PM Knee 1 or 2 Views Left Marely , Sabrin a; Auth (Verified) Notes: (Knee 1 or 2 Views Left) Reason For Exam: Pain RESULT: Knee 1 or 2 Views Left Knee 1 or 2 Views Left, 2 views Hx of Present Illness: ETOH + Fall; Reason: Pain; Clinical Question(s): Fracture COMPARISON: 09/24/2011. FINDINGS: There is no evidence of acute fracture or dislocation. There is no evidence of significant osteoarthritic change. No evidence of joint effusion. IMPRESSION: There is no evidence of acute fracture or dislocation. WSN: [id number] Ordering Physician: Deloris King Dictated By: Cayla Blunt MD Dictated Date/Time: 12/17/22 7:15 pm Reviewed By: Cayla Blunt MD Signed By: Cayla Blunt MD Signed Date/Time: 12/17/22 7:15 pm Transcribed By: MARC Transcribed Date/Time: 12/17/22 7:10 pm * Exam Date Time Procedure Performing Provider Status 12/17/22 6:59 PM Hand Min 3 Views Right Marely , Sabrin a; Auth (Verified) Notes: (Hand Min 3 Views Right) Reason For Exam: Pain RESULT: Hand Min 3 Views Right Hand Min 3 Views Right, 3 views Hx of Present Illness: ETOH + Fall; Reason: Pain; Clinical Question(s): Fracture COMPARISON: None. FINDINGS: No fractures or bone lesions. Minimal degenerative changes at the interphalangeal joints with mild spurring. Normal soft tissues. IMPRESSION: There is no evidence of acute fracture or dislocation. WSN: [id number] Ordering Physician: Deloris King Dictated By: Cayla Blunt MD Dictated Date/Time: 12/17/22 7:08 pm Reviewed By: Cayla Blunt MD Signed By: Cayla Blunt MD Signed Date/Time: 12/17/22 7:08 pm Transcribed By: MARC Transcribed Date/Time: 12/17/22 7:06 pm Vital Signs Most recent to oldest [Reference Range]: 1 2 3 Height 180 cm (12/21/22 11:41 AM) 180 cm (12/21/22 5:15 AM) 180 cm (12/20/22 4:15 PM) Weight 66.1 kg (12/19/22:23 AM) 75 kg (12/18/22 3:42 PM) Oxygen Saturation [94-100 %] 98 % (12/21/22 11:41 AM) 93 % *L* (12/21/22 5:15 AM) 100 % (12/20/22 8:00 PM) Pulse Rate [55-90 bpm] 68 bpm (12/21/22 11:41 AM) 58 bpm (12/21/22 5:15 AM) 67 bpm (12/20/22 8:00 PM) Body Mass Index [18.5-24.99 kg/m2] 23.15 kg/m2 (12/18/22 3:42 PM) Blood Pressure [90-138/55-84 mm Hg] 130/83mm Hg (12/21/22 11:41 AM) 134/79mm Hg (12/21/22 5:15 AM) 117/72mm Hg (12/20/22 8:00 PM) Respiratory Rate [16-30 br/min] 18 br/min (12/21/22 3:13 PM) 18 br/min (12/21/22 2:13 PM) 17 br/min (12/21/22 11:41 AM) Temperature [96.8-100.4 DegF] 98.5 DegF (12/21/22 11:41 AM) 97.3 DegF (12/21/22 5:15 AM) 98.4 DegF (12/20/22 8:00 PM) Mode of Delivery (Oxygen) Room air (12/21/22 11:41 AM) Room air (12/21/22 5:15 AM) Room air (12/20/22 8:00 PM) Blood pressure sites Arm, left (12/21/22 11:41 AM) Arm, left (12/21/22 5:15 AM) Arm, left (12/20/22 8:00 PM) Temperature Route Oral (12/21/22 11:41 AM) Oral (12/21/22 5:15 AM) Oral (12/20/22 8:00 PM) Dry Weight 75 kg (12/18/22 3:42 PM) Weight Obtained Via Bed scale (12/19/22 8:23 AM) Social History Social History Type Response Smoking Status Current every day aj adams; Type: Cigarettes; Other: 6 cigarettes per day; entered on: 09/27/15 Sex Admission evaluation note * Maura BELTRÁN, Ksenia Marks: PERFORM Event Display: Admission Note Authored Date: [id number] Patient: ??MELISSA LOMBARDO ? Age:??57 Years?Sex:??Male?:??1965?? Chief Complaint/Reason for Consultation ETOH + / Fall History of Present Illness ?? 57-year-old male with a past medical history of significant??alcohol abuse with recurrent admissions??for alcohol intoxication and withdrawal,??opioid seeking behavior, chronic back pain/failed back syndrome??(on duloxetine and gabapentin),??pulmonary embolism recently??and recurrent??on Eliquis,??erosive esophagitis with gastrointestinal bleeding history.?? Also has chronic??chest and back pain complaints. ??Has a care plan in place to avoid opioids. ?? Patient reportedly first presented to the ED with complaints of Right hand pain??but left prior to being seen.?? Reportedly??in the bus had a witnessed fall??and patient was brought back into the ED.?? Has been actively drinking and was drinking up to??12/18 morning??prior to presentation.?? Has alsohad melanotic stools at home ?? Recent hospital admission 11/05 - 11/08 with epigastric abdominal pain and coffee- ground vomiting after binging on alcohol.?? Had an EGD on 11/06 with erosive esophagitis.?? Was discharged in stable condition??on twice daily PPI and resumed Eliquis.?? Repeat EGD?? needed 3 months from then.?? Not compliant with his acamprosate.?? Also had recent PE diagnosis on apixaban.?? States he has been compliant with this medication ? In the ED: -Rectal exam with RN dock supervisor unremarkable, no melanotic stool. -Hemodynamically stable, afebrile, saturating 100% on room air -Leukocytosis 13.5 -H/H 8.8, reduced from baseline of around 10.5 during recent ED visits -Hyponatremic to 131 with hypokalemia 3.3, significantly dehydrated on exam -Creatinine 1.2,, slightly elevated from baseline of 0.9, patient likely dehydrated due to vomiting -High sensitive troponin 29 and 28 with unremarkable delta change -NT proBNP 185, unremarkable -Negative COVID test -Chest x-ray with no acute abnormality -CT brain and cervical spine with no fracture and no acute abnormality intracranially -Received folic acid, multivitamin, pyridoxine and thiamine and CIWA Ativan protocol ordered ? During my evaluation in ED, patient is??alert and oriented x4.?? Not endorsing any hand pain. ??Notendorsing any chest pain. ??States he has back pain but this is at his chronic baseline??with no acute worsening. ??Not actively having any alcohol withdrawal symptoms.?? Does endorse that??over the last few days while drinking he noticed??black melanotic stools and increased frequency. ?? Admitted under medicine service for??alcohol intoxication management as well as concern for??recentgastrointestinal bleeding. ? Review of Systems Other than those positives as noted above, the remaining comprehensive 14-point review of systems is negative. Objective Vital Signs?? Temperature: 98.1 DegF (12/18/22 15:42:00) Temperature Route: Oral (12/18/22 15:42:00) Pulse Rate: 65 bpm (12/18/22 15:42:00) Respiratory Rate: 18 br/min (12/18/22 15:42:00) Systolic Blood Pressure: 109 mm Hg (12/18/22 15:42:00) Diastolic Blood Pressure: 63 mm Hg (12/18/22 15:42:00) Blood pressure sites: Arm, right (12/18/22 15:42:00) Mean Arterial Pressure: 78 mm Hg (12/18/22 15:42:00) Pulse Pressure: 46 mm Hg (12/18/22 15:42:00) Oxygen Saturation: 98 % (12/18/22 15:42:00) Mode of Delivery (Oxygen): Room air (12/18/22 15:42:00) Early Warning Score: 0 (12/18/22 15:55:08) ? Intake/Output? No Data Available ? Physical Exam Constitutional: Alert, in no acute distress. Mental Status: Oriented to person, place and time. Head: Normocephalic. Neck: Supple, Full range of motion. Respiratory: Clear to auscultation and percussion. No wheezing, rales or rhonchi. Cardiovascular: S1 S2 regular. No murmurs, rubs or gallops. Gastrointestinal: Abdomen soft, non-tender, non-distended. Normal bowel sounds. No pulsatile mass. No hepatosplenomegaly. Genitourinary: No costovertebral angle tenderness. Neurologic: Cranial nerves II-XII grossly intact. No focal neurological deficits. Skin: No rashes or lesions. No petechiae or purpura. Musculoskeletal: No cyanosis or clubbing. No gross deformities. Normal range of motion. Assessment/Plan Diagnoses Chest pain ??(R07.9) Elevated troponin ??(R77.8) Symptomatic anemia ??(D64.9) Concern for gastrointestinal bleed ? 57-year-old male with a past medical history of significant??alcohol abuse with recurrent admissions??for alcohol intoxication and withdrawal,??opioid seeking behavior, chronic back pain/failed back syndrome??(on duloxetine and gabapentin),??pulmonary embolism recently??and recurrent??on Eliquis,??erosive esophagitis with gastrointestinal bleeding history.?? Also has chronic??chest and back pain complaints. ??Has a care plan in place to avoid opioids. ?? Patient reportedly first presented to the ED with complaints of Right hand pain??but left prior to being seen.?? Reportedly??in the bus had a witnessed fall??and patient was brought back into the ED.?? Has been actively drinking and was drinking up to??12/18 morning??prior to presentation.?? Has alsohad melanotic stools at home ?? Recent hospital admission 11/05 - 11/08 with epigastric abdominal pain and coffee- ground vomiting after binging on alcohol.?? Had an EGD on 11/06 with erosive esophagitis.?? Was discharged in stable condition??on twice daily PPI and resumed Eliquis.?? Repeat EGD?? needed 3 months from then.?? Not compliant with his acamprosate.?? Also had recent PE diagnosis on apixaban.?? States he has been compliant with this medication ? Admitted under medicine service for??alcohol intoxication management as well as concern for??recent gastrointestinal bleeding. ? Binge alcohol drinking Fall due to intoxication Alcohol intoxication at risk of withdrawal Concern for gastrointestinal bleed, erosive esophagitis??history Chronic MSK chest pain During my evaluation in ED, patient is??alert and oriented x4.?? Not endorsing any hand pain. ??Notendorsing any chest pain. ??States he has back pain but this is at his chronic baseline??with no acute worsening. ??Not actively having any alcohol withdrawal symptoms.?? Does endorse that??over the last few days while drinking he noticed??black melanotic stools and increased frequency. -Rectal exam with RN dock supervisor unremarkable, no melanotic stool. -Hemodynamically stable, afebrile, saturating 100% on room air -Leukocytosis 13.5 -H/H 8.8, reduced from baseline of around 10.5 during recent ED visits -High sensitive troponin 29 and 28 with unremarkable delta change -NT proBNP 185, unremarkable -Negative COVID test -Chest x-ray with no acute abnormality -CT brain and cervical spine with no fracture and no acute abnormality intracranially -Received folic acid, multivitamin, pyridoxine and thiamine and CIWA Ativan protocol ordered -Recent hospital admission with EGD showing erosive esophagitis which is likely??flared up due to ongoing alcohol binge? Plan: -CIWA??protocol??with Ativan to manage any alcohol withdrawal symptoms -Pyridoxine, thiamine, acamprosate??resumed -Resumed??gabapentin for chronic pains -Eliquis on hold for now, resume if H/H remained stable and monitor for any further bleeding -Discharge once??Eliquis tolerated with no further evidence of bleed??and no significant alcohol withdrawal -Resume twice daily PPI??for esophagitis -Gastroenterology evaluation currently not needed since no evidence of active bleed, if patient hasovert bleeding or significant drop in H/H their team can be consulted ? Electrolyte imbalances: Hyponatremia, hypokalemia and hypophosphatemia Acute kidney injury Patient is significantly dehydrated and with alcohol binge has not had much nutritional intake -Hyponatremic to 131 with hypokalemia 3.3, significantly dehydrated on exam -Creatinine 1.2,, slightly elevated from baseline of 0.9, patient likely dehydrated due to vomiting Furthermore patient's creatinine??1.2 admission,??higher than his baseline, consistent likely with prerenal KOSTA Electrolytes being repleted Started on LR hydration, anticipate sodium levels to improve with correction of hypovolemia ? Pulmonary embolism, recurrent Is on apixaban, states he is compliant Apixaban on hold for now due to gastrointestinal bleed concerns, if H/H with no significant change and no overt clinical bleeding then apixaban should be resumed 12/19 and patient monitored for any bleeding ? Hypertension Patient is on lisinopril, blood pressures on the softer side on admission??plus with mild KOSTA, heldfor now, patient dehydrated Can resume when blood pressures improve ? Chronic back pain Continuing patient's home duloxetine and gabapentin ? DVT prophylaxis:??Eliquis held for now and no other VTE prophylaxis??due to gastrointestinal bleed concerns.?? Mechanical prophylaxis ordered Diet: Regular diet CODE STATUS: Full code confirmed with patient Med rec completed Histories Allergies Allergies ?(Active and Proposed Allergies [...] (thiamine 100 mg oral tablet)?100?Milligram?1?tablet?By Mouth?Daily ? Inpatient Medications Medications (23) Active SCHEDULED: (10) Acamprosate 333mg EC Tablet (acamprosate 333 mg oral delayed release tablet) ??666 mg, By Mouth, 3 times a day Duloxetine 30 mg Capsule (DULoxetine Capsule) ??30 mg, By Mouth, 2 times a day Folic Acid 1 mg Tablet (Folic Acid Tablet) ??1 mg, By Mouth, Daily Gabapentin 300 mg Capsule (gabapentin 300 mg oral capsule) ??300 mg, By Mouth, 3 times a day Multivitamin Tablet ??1 tablet, By Mouth, Daily NaCl 0.9% Flush 3ml (NaCL 0.9% Flush) ??3 mL, IV Push, Every 8 hours Pantoprazole 40 mg EC Tablet (pantoprazole 40 mg oral delayed release tablet) ??40 mg, By Mouth, 2 times a day Potassium Phosphate 15mmol/250mL D5W (Potassium Phosphate IVPB) ??15 mmol 250 mL, IVPB, Once Pyridoxine 50 mg Tablet (Pyridoxine Tablet) ??50 mg, By Mouth, Daily Thiamine 100 mg Tablet (Thiamine Tablet) ??100 mg, By Mouth, 2 times a day CONTINUOUS: (1) Lactated Ringers (1000 mL) Cont IV 1,000 mL (LR 1,000 mL) ??1,000 mL, IV Infusion, 100 mL/hr PRN: (12) Acetaminophen 325 mg Tablet (Acetaminophen Tablet) ??650 mg, By Mouth, Every 4 hours Dextromethorphan-Guaifenesin 20 mg-200 mg/10 mL Liqu UD (Robitussin DM Liquid) ??10 mL, By Mouth, Every 4 hours Lorazepam 1 mg Tablet (LORazepam Tablet) ??1 mg, By Mouth, Every hour Lorazepam 1 mg Tablet (LORazepam Tablet) ??3 mg, By Mouth, Every hour Lorazepam 2 mg Inj Syringe (LORazepam Inj) ??4 mg, IV Push Slowly, Every hour Lorazepam 2 mg Tablet (LORazepam Tablet) ??2 mg, By Mouth, Every hour Lorazepam 2 mg Tablet (LORazepam Tablet) ??4 mg, By Mouth, Every hour Melatonin 3 mg Tablet (Melatonin Tablet) ??3 mg, By Mouth, Daily at bedtime NaCl 0.9% Flush 3ml (NaCL 0.9% Flush) ??3 mL, IV Push, Every 8 hours Polyethylene Glycol 17 Gm Powder (MiraLax Powder) ??17 Gm 1 pack/packet, By Mouth, Daily Senna 8.6 mg / Docusate 50 mg tablet (Docusate/Senna Tablet) ??1 tablet, By Mouth, 2 times a day Simethicone 80 mg Chewable Tablet (Simethicone Tablet) ??80 mg, Chew, 3 times a day ? Results Recent Labs BLOOD BANK Blood Type B Positive ()?? 12/18/2022 07:26 Antibody Screen Negative ()?? 12/18/2022 07:26 ?? BLOOD COUNT & DIFF WBC 8.5 k/mm3 ()?? 12/18/2022 07:31 RBC 2.93 m/mm3 (Low)?? 12/18/2022 07:31 Hgb 7.8 Gm/dL (Low)?? 12/18/2022 07:31 Hct 24.2 % (Low)?? 12/18/2022 07:31 MCV 82.6 femtoliters ()?? 12/18/2022 07:31 MCH 26.6 pg (Low)?? 12/18/2022 07:31 MCHC 32.2 g/dL (Low)?? 12/18/2022 07:31 Platelet Count 348 k/mm3 ()?? 12/18/2022 07:31 RDW-SD 41.7 femtoliters ()?? 12/18/2022 07:31 MPV 9.6 femtoliters ()?? 12/18/2022 07:31 Nucleated RBC (Automated) 0.0 #/100 WBC'S ()?? 12/18/2022 07:31 Abs. NRBC 0.0 k/mm3 ()?? 12/18/2022 07:31 Abs. Neut 5.4 k/mm3 ()?? 12/18/2022 07:31 Abs. Lymph 2.3 k/mm3 ()?? 12/18/2022 07:31 Abs. [place] 0.7 k/mm3 ()?? 12/18/2022 07:31 Abs. Eo 0.1 k/mm3 ()?? 12/18/2022 07:31 Abs. Baso 0.0 k/mm3 ()?? 12/18/2022 07:31 Neut % 63.3 % ()?? 12/18/2022 07:31 Lymph % 26.3 % ()?? 12/18/2022 07:31 [place] % 7.7 % ()?? 12/18/2022 07:31 Eos % 1.2 % ()?? 12/18/2022 07:31 Baso % 0.4 % ()?? 12/18/2022 07:31 Imm Gran 1.1 % ()?? 12/18/2022 07:31 Abs. Imm Gran 0.1 k/mm3 ()?? 12/18/2022 07:31 ?? CARDIAC Nt-Probnp 185 pg/mL (High)?? 12/17/2022 21:29 High Sensitivity Troponin (HSTnT) 28 ng/L (High)?? 12/17/2022 23:11 ?? CHEM GENERAL Sodium 130 mmol/L (Low)?? 12/18/2022 07:31 Potassium 3.3 mmol/L (Low)?? 12/18/2022 07:31 Chloride 87 mmol/L (Low)?? 12/18/2022 07:31 Bicarbonate Level 33 mmol/L (High)?? 12/18/2022 07:31 Anion Gap 10 ()?? 12/18/2022 07:31 Glucose Level 105 mg/dL (High)?? 12/18/2022 07:31 Glucose, POC 82 mg/dL ()?? 12/17/2022 18:41 BUN 24 mg/dL (High)?? 12/18/2022 07:31 Creatinine-Blood 1.1 mg/dL ()?? 12/18/2022 07:31 Estimated GFR Creatinine 80 ML/MIN/1.73 M2 ()?? 12/18/2022 07:31 Calcium 8.9 mg/dL ()?? 12/17/2022 18:45 Phosphorus 2.3 mg/dL (Low)?? 12/18/2022 07:31 Magnesium 1.9 mg/dL ()?? 12/18/2022 07:31 Alkaline Phosphatase 70 units/L ()?? 12/18/2022 07:31 Lipase 80 units/L (High)?? 12/18/2022 07:31 AST (SGOT) 22 units/L ()?? 12/18/2022 07:31 ALT (SGPT) 11 units/L ()?? 12/18/2022 07:31 Bilirubin, Total 0.2 mg/dL ()?? 12/18/2022 07:31 Bilirubin, Direct <0.2 mg/dL ()?? 12/18/2022 07:31 Bilirubin, Indirect Direct bilirubin is less than the measureable limit. Therefore, indirect mg/dL ()?? 12/18/2022 07:31 ?? URINE OTHER Est Creatinine Clearance 77.64 mL/min ()?? 12/18/2022 15:55 ?? VIROLOGY COVID-19 by RT-PCR NEGATIVE ()?? 12/17/2022 23:11 ? Abnormal Labs ?? BLOOD BANK ??Antibody Screen ??Negative () ??12/18/2022 07:26 ??Blood Type ??B Positive () ??12/18/2022 07:26 ? BLOOD COUNT & DIFF ??Abs. Imm Gran ??0.1 k/mm3 () ??12/18/2022 07:31 ??Abs. NRBC ??0.0 k/mm3 () ??12/18/2022 07:31 ??Hct ??24.2 % (Low) ??12/18/2022 07:31 ??Hgb ??7.8 Gm/dL (Low) ??12/18/2022 07:31 ??Imm Gran ??1.1 % () ??12/18/2022 07:31 ??MCH ??26.6 pg (Low) ??12/18/2022 07:31 ??MCHC ??32.2 g/dL (Low) ??12/18/2022 07:31 ??Nucleated RBC (Automated) ??0.0 #/100 WBC'S () ??12/18/2022 07:31 ??RBC ??2.93 m/mm3 (Low) ??12/18/2022 07:31 ??RDW-SD ??41.7 femtoliters () ??12/18/2022 07:31 ? CARDIAC ??High Sensitivity Troponin (HSTnT) ??28 ng/L (High) ??12/17/2022 23:11 ??Nt-Probnp ??185 pg/mL (High) ??12/17/2022 21:29 ? CHEM GENERAL ??BUN ??24 mg/dL (High) ??12/18/2022 07:31 ??Bicarbonate Level ??33 mmol/L (High) ??12/18/2022 07:31 ??Chloride ??87 mmol/L (Low) ??12/18/2022 07:31 ??Estimated GFR Creatinine ??80 ML/MIN/1.73 M2 () ??12/18/2022 07:31 ??Glucose Level ??105 mg/dL (High) ??12/18/2022 07:31 ??Lipase ??80 units/L (High) ??12/18/2022 07:31 ??Phosphorus ??2.3 mg/dL (Low) ??12/18/2022 07:31 ??Potassium ??3.3 mmol/L (Low) ??12/18/2022 07:31 ??Sodium ??130 mmol/L (Low) ??12/18/2022 07:31 ? VIROLOGY ??COVID-19 by RT-PCR ??NEGATIVE () ??12/17/2022 23:11 ? Note: Critical results are displayed in red. ? Microbiology ?? COVID-19 (Novel Coronavirus), Rapid PCR?? Completed?? Source: Nasal Body Site: Nose Collected Dt/Tm: 12/17/2022 22:53 Last Updated Dt/Tm: 12/18/2022 00:35 ? EKG study * Event Display: ECG 12-Lead Authored Date: Please click on pdf link to open report * Event Display: ECG 12-Lead Authored Date: Ventricular Rate: 62 BPM Atrial Rate: 62 BPM P-R Interval: 142 ms QRS Duration: 94 ms Q-T Interval: 416 ms QTC Calculation(Bazett): 422 ms P [place]: 41 degrees R [place]: 4 degrees T [place]: 27 degrees Normal sinus rhythm with sinus arrhythmia Normal ECG When compared with ECG of 06-DEC-2022 02:21, No significant change was found Confirmed by BOOKER ALANIS ([id number]) on 12/21/2022 4:18:50 PM Aguirre: BOOKER ALANIS Cardiology * Event Display: Cardiac Rhythm Strips Authored Date: Hospital Progress note * Analilia Vogt RN: VERIFY, PERFORM, SIGN Event Display: Progress Note Hospital Authored Date: [id number] Patient: MELISSA LOMBARDO Age: 57 years Sex: Male : 1965 Associated Diagnoses: None Author: Analilia Vogt RN Findings Problem Related to Alteration in Psychosocial : Alteration in Psychosocial Function/new 12/21/2022 16:00 EDT Alteration in Psychosocial Related to Acute Alcohol Withdrawal Goals & Outcomes, Psychosocial Psychosocial support will be provided to Pt/S.O. as needed, Pt will identify stressors leading up to event, Pt will state importance of adhering to medication regime, Pt/caregiver will be offered appropriate resources & support, Pt/caregiver will express feelings/needs/fears /concerns, Pt/caregiver will maintain/obtain psychological stability, Pt/caregiver will participate in coping skill counseling Interventions, Psychosocial Resolved problem, Interventions no longer in effect Goals/Interventions, Psychosocial Yes Psychosocial, Problem Start 12/18/2022 16:00 Reviewed Plan with, Psychosocial Patient Patient Progression, Psychosocial Resolved problem Psychosocial, Problem Resolved 12/20/2022 16:03 . Alteration in Tissue Perfusion : Alteration in Tissue Perfusion 12/21/2022 16:00 EDT Alteration Tissue Perfusion related to Anemia Goals & Outcomes: Tissue perfusion Pt will be hemodynamically stable, Pt will achieve normal/improved/optimal neuro status, Pt will return to baseline respiratory function, Pt will maintain adequate GI function appropriate for pt, Pt will maintain adequate function appropriate for pt Interventions: Tissue Perfusion Resolved problem, Interventions no longer in effect Goals/Interventions, Tissue Perfusion Yes Tissue Perfusion, Problem Start 12/19/2022 16:05 Reviewed Plan with, Tissue Perfusion Patient Patient Progression, Tissue Perfusion Resolved problem Problem Resolved, Tissue Perfusion 12/21/2022 17:35 . Narrative/Incidental A&Ox3, ambulating steadily, denies pain, denies sob, see biophysical for full assessment. tolerating diet, took meds as prescribed, bed in lowest, locked position with call michel in reach. Patientdischarging today, verbalizes understanding of discharge instructions, all questions answered, IV removed tip intact. Left unit in w/c via transport. . Discharge Information Case Management Discharge Plan : Case Management Discharge Plan Data 12/21/2022 17:03 EDT Discharge Level of Care at Discharge Home/[facility] 12/21/2022 10:27 EDT Discharge Level of Care at Discharge Home/[facility] * Sameera Chappell RN: VERIFY, PERFORM, SIGN Event Display: Progress Note Hospital Authored Date: Patient: MELISSA LOMBARDO Age: 57 years Sex: Male : 1965 Associated Diagnoses: None Author: Sameera Chappell RN Findings Problem Related to Alteration in Tissue Perfusion : Alteration in Tissue Perfusion 12/21/2022 4:00 EDT Alteration Tissue Perfusion related to Anemia Goals & Outcomes: Tissue perfusion Pt will be hemodynamically stable, Pt will achieve normal/improved/optimal neuro status, Pt will return to baseline respiratory function, Pt will maintain adequate GI function appropriate for pt, Pt will maintain adequate function appropriate for pt Interventions: Tissue Perfusion Assess/Monitor mental status, Monitor blood loss, Monitor Intake & Output, Physical assessment per unit standards, Position for comfort Goals/Interventions, Tissue Perfusion Yes Tissue Perfusion, Problem Start 12/19/2022 16:05 Reviewed Plan with, Tissue Perfusion Patient Patient Progression, Tissue Perfusion Pt progressing according to plan . Nursing Data Vital Signs : VITAL SIGNS SECTION 12/20/2022 20:00 EDT Temperature 98.4 DegF Temperature Route Oral Pulse Rate 67 bpm Respiratory Rate 18 br/min Systolic Blood Pressure 117 mm Hg Diastolic Blood Pressure 72 mm Hg Blood pressure sites Arm, left Pulse Pressure 45 mm Hg Oxygen Saturation 100 % Mode of Delivery (Oxygen) Room air . Narrative/Incidental Pt alert, orient x4. Very pleasant. Able to make needs known. Denied pain or any discomfort. C/o heartburn, prn maalox given being effective. On tele SB. Pt independent to bathroom. Safety maintained, call light in reach, all needs attended. . * Jo Reynolds: PERFORM, SIGN, VERIFY Event Display: Progress Note Hospital Authored Date: Patient: MELISSA LOMBARDO Age: 57 years Sex: Male : 1965 Associated Diagnoses: None Author: Jo Reynolds Findings Problem Related to Alteration in Psychosocial : Alteration in Psychosocial Function/new 12/20/2022 16:00 EDT Alteration in Psychosocial Related to Acute Alcohol Withdrawal Goals & Outcomes, Psychosocial Psychosocial support will be provided to Pt/S.O. as needed, Pt will identify stressors leading up to event, Pt will state importance of adhering to medication regime, Pt/caregiver will be offered appropriate resources & support, Pt/caregiver will express feelings/needs/fears /concerns, Pt/caregiver will maintain/obtain psychological stability, Pt/caregiver will participate in coping skill counseling Interventions, Psychosocial Resolved problem, Interventions no longer in effect Goals/Interventions, Psychosocial Yes Psychosocial, Problem Start 12/18/2022 16:00 Reviewed Plan with, Psychosocial Patient Patient Progression, Psychosocial Resolved problem Psychosocial, Problem Resolved 12/20/2022 16:03 . Alteration in Tissue Perfusion : Alteration in Tissue Perfusion 12/20/2022 16:00 EDT Alteration Tissue Perfusion related to Anemia Goals & Outcomes: Tissue perfusion Pt will be hemodynamically stable, Pt will achieve normal/improved/optimal neuro status, Pt will return to baseline respiratory function, Pt will maintain adequate GI function appropriate for pt, Pt will maintain adequate function appropriate for pt Interventions: Tissue Perfusion Assess/Monitor activity tolerance, Assess/Monitor cardiac dysrhythmias, Assess/Monitor mental status, Assess/Monitor peripheral pulses & capillary refill, Assess/Monitor vital signs per unit standard & prn, Monitor blood loss, Monitor Intake & Output, Monitor labs & report variances to provider, Physical assessment per unit standards, Position for comfort BH Goals/Interventions, Tissue Perfusion Yes Tissue Perfusion, Problem Start 12/19/2022 16:05 Reviewed Plan with, Tissue Perfusion Patient Patient Progression, Tissue Perfusion Pt progressing according to plan . Narrative/Incidental Patient alert and oriented x3. Back and neck pain this morning, PRN Tylenol given with good effect.Patient on roll edge stitcher hand, SB-NSR. Scoring 0 on CIWA scale. No signs of bleeding. See biophysical assessment. Patient steady gait, ambulating independently to and from bathroom. Safety measures in place, continuing to monitor patient safety and comfort. . Note * Narayan Nicolas: PERFORM Event Display: Discharge/Transfer Note Hospital Authored Date: [id number] Nursing Discharge Note Entered On: 12/21/2022 17:03 EDT Performed On: 12/21/2022 17:03 EDT by Narayan Nicolas Nursing Discharge Note 2 Discharge Time : 12/21/2022 17:03 EDT Discharge Level of Care at Discharge : Home/[facility] Patient Left Unit Via : Wheelchair Patient Accompanied Off Unit with : Responsible adult DC Instructions Provided & Signed by Pt : Yes Patient Understands D/C Instructions : Yes Patient Instructions Discharge Signed : Yes Did Pt have Specialty Bed or Wound Vac : No Narayan Nicolas - 12/21/2022 17:03 EDT * Thea Pyle DO: PERFORM, MODIFY Event Display: Discharge/Transfer Note Hospital Authored Date: [id number] Patient: ??MELISSA LOMBARDO ? Age:??57 Years?Sex:??Male?:??1965?? Patient Information Discharge Location: S2 Primary Care Physician: Not on Staff, PCP Admit Date/Time: 12/18/22 00:03 Discharge Disposition Discharge Disposition: Home: No Services Discharge Diagnosis Chest pain (R07.9) Elevated troponin (R77.8) Symptomatic anemia (D64.9) _ Discharge Medications Acamprosate (acamprosate 333 mg [...] mg oral tablet)?100?Milligram?1?tablet?By Mouth?Daily ? Medications Started Ferrous Sulfate (ferrous sulfate 325 mg oral enteric coated tablet)?325?Milligram?By Mouth?3 times a day?for 30?Days Allergies Allergies ?(Active and Proposed Allergies Only) Bee Stings? (Severity: Unknown severity, Onset: Unknown) ? PCP Follow-Up/Heads-Up 1. follow up anemia and ferrous sulfate supplements 2. ensure follow??up as needed for GI for esophagitis Hospital Course 57M with a past medical history of significant alcohol use disorder with recurrent admissions for alcohol intoxication and withdrawal, opioid seeking behavior, chronic back pain/failed back syndrome (on duloxetine and gabapentin), pulmonary embolism recently and recurrent on Eliquis, erosive esophagitis with gastrointestinal bleeding history, and chronic chest and back pain complaints presented to the ED after a witnessed fall on a bus. Endorsed active drinking up until the morning prior to thepresentation, reportedly increasing frequency of melanotic stools at home, admitted for alcohol intoxication management and anemia Hgb 6.9 in the setting of recent gastrointestinal bleeding. Hemoglobin is now improved status post 1 unit of PRBCs, stable at 8.7 now. We will continue back on Eliquis 5 mg twice daily for recurrent pulmonary embolism. ?? Binge alcohol drinking Fall due to intoxication Alcohol intoxication at risk of withdrawal CT head and C-spine did not show any evidence of fracture or abnormalities Continues to endorse pain at the site of head strike upon fall, but denies any vision changes or headaches at this time CIWA score has been 0 for the past 3 days. ?? Recommendations: ??-??Denies SW assistance for alcohol use disorder ??- Pyridoxine, thiamine, acamprosate resumed ?? Concern for gastrointestinal bleed, erosive esophagitis history Anemia ??Hemoglobin now is stable at 8.7. ??No overt signs of bleeding, denies any blood in his stool ?? Recommendations: ??- Hemoglobin remained stable, will continue Eliquis 5 mg twice daily ??- Resume twice daily PPI for esophagitis ??- Gastroenterology evaluation currently not needed since no evidence of active bleed, if patient has overt bleeding or significant drop in H/H their team can be consulted ??- start on ferrous sulfate 325mg daily for anemia ?? Chronic MSK chest pain Back pain ??Chest x-ray with no acute abnormality ??Patient is reporting right-sided back pain and shoulder pain, can be in the setting of sleeping in the uncomfortable hospital mattress ?? Recommendations: ??- Resumed gabapentin for chronic pains ?? Electrolyte imbalances: hyponatremia, hypokalemia and hypophosphatemia???resolved ??Acute kidney injury???resolved ??Likely hypovolemic hyponatremia in the setting of poor PO intake and active binging of alcohol ??Resolved with fluid resuscitation. ??FU with PCP ?? Pulmonary embolism, recurrent ??- Continue apixaban 5mg BID ?? Hypertension - resume lisinopril ?? Chronic back pain ??Continuing patient's home duloxetine and gabapentin ?? Objective Assessment and Plan Discharge Planning:? Vital Signs?? Temperature: 98.5 DegF (12/21/22 11:41:00) Temperature Route: Oral (12/21/22 11:41:00) Pulse Rate: 68 bpm (12/21/22 11:41:00) Respiratory Rate: 17 br/min (12/21/22 11:41:00) Systolic Blood Pressure: 130 mm Hg (12/21/22 11:41:00) Diastolic Blood Pressure: 83 mm Hg (12/21/22 11:41:00) Blood pressure sites: Arm, left (12/21/22 11:41:00) Mean Arterial Pressure: 99 mm Hg (12/21/22 11:41:00) Pulse Pressure: 47 mm Hg (12/21/22 11:41:00) Oxygen Saturation: 98 % (12/21/22 11:41:00) Mode of Delivery (Oxygen): Room air (12/21/22 11:41:00) Early Warning Score: 1 (12/21/22 11:42:15) ? . Physical Exam General Appearance: The patient is in NAD. Cardiovascular: RRR S1 and S2 heard with no M/R/G. Respiratory: ??Breath sounds clear to auscultation bilaterally. No wheezing. Good air movement throughout both lungs. GI: Soft. Nontender and nondistended.?? MS: ??No edema or erythema in the lower extremities.?? Neuro: ??No slurred speech. ??Patient seen moving their upper and lower extremities independently. Consultants social work Pending Results Transfuse RBCs ordered on 12/19/2022 Patient Education Titles Alcohol Abuse?? Esophagitis?? Ferrous Sulfate Extended Release Oral Tablet?? Apixaban Oral Tablet?? Anemia?? Patient Instructions You came into the hospital after you hit your head on a bus. You were found to have??alcohol intoxication. ??You also had low??hemoglobin,??did noting that you had anemia.?? In the setting of your erosive esophagitis, we gave you a transfusion of blood. ??Youranemia improved after this. There is no concern for acute bleeding at this time. ??You will continue back on your Eliquis 5 mg twice daily??for your recurrent??pulmonary embolisms.?? You are also started on ferrous sulfate 325 mg daily for your anemia.?? You will continue taking your pantoprazole 40 mg twice daily for your esophagitis. Please follow-up with your PCP. Home Health Face to Face ^HomeHealthFTF Results Discharge Labs BLOOD BANK Blood Type B Positive ()?? 12/18/2022 07:26 Antibody Screen Negative ()?? 12/18/2022 07:26 RBC Unit ID [id number] ()?? 12/19/2022 09:09 RBC Available PT ()?? 12/19/2022 09:09 ?? BLOOD COUNT & DIFF WBC 7.8 k/mm3 ()?? 12/21/2022 00:26 RBC 3.13 m/mm3 (Low)?? 12/21/2022 00:26 Hgb 8.7 Gm/dL (Low)?? 12/21/2022 00:26 Hct 26.7 % (Low)?? 12/21/2022 00:26 MCV 85.3 femtoliters ()?? 12/21/2022 00:26 MCH 27.8 pg ()?? 12/21/2022 00:26 MCHC 32.6 g/dL (Low)?? 12/21/2022 00:26 Platelet Count 350 k/mm3 ()?? 12/21/2022 00:26 RDW-SD 43.5 femtoliters ()?? 12/21/2022 00:26 MPV 9.6 femtoliters ()?? 12/21/2022 00:26 Nucleated RBC (Automated) 0.0 #/100 WBC'S ()?? 12/21/2022 00:26 Abs. NRBC 0.0 k/mm3 ()?? 12/21/2022 00:26 Abs. Neut 5.4 k/mm3 ()?? 12/18/2022 07:31 Abs. Lymph 2.3 k/mm3 ()?? 12/18/2022 07:31 Abs. [place] 0.7 k/mm3 ()?? 12/18/2022 07:31 Abs. Eo 0.1 k/mm3 ()?? 12/18/2022 07:31 Abs. Baso 0.0 k/mm3 ()?? 12/18/2022 07:31 Neut % 63.3 % ()?? 12/18/2022 07:31 Lymph % 26.3 % ()?? 12/18/2022 07:31 [place] % 7.7 % ()?? 12/18/2022 07:31 Eos % 1.2 % ()?? 12/18/2022 07:31 Baso % 0.4 % ()?? 12/18/2022 07:31 Imm Gran 1.1 % ()?? 12/18/2022 07:31 Abs. Imm Gran 0.1 k/mm3 ()?? 12/18/2022 07:31 ?? CARDIAC Nt-Probnp 185 pg/mL (High)?? 12/17/2022 21:29 High Sensitivity Troponin (HSTnT) 28 ng/L (High)?? 12/17/2022 23:11 ?? CHEM GENERAL Sodium 134 mmol/L ()?? 12/21/2022 00:26 Potassium 4.2 mmol/L ()?? 12/21/2022 00:26 Chloride 98 mmol/L ()?? 12/21/2022 00:26 Bicarbonate Level 27 mmol/L ()?? 12/21/2022 00:26 Anion Gap 9 ()?? 12/21/2022 00:26 Glucose Level 112 mg/dL (High)?? 12/21/2022 00:26 Glucose, POC 82 mg/dL ()?? 12/17/2022 18:41 BUN 14 mg/dL ()?? 12/21/2022 00:26 Creatinine-Blood 1.0 mg/dL ()?? 12/21/2022 00:26 Estimated GFR Creatinine 90 ML/MIN/1.73 M2 ()?? 12/21/2022 00:26 Calcium 8.0 mg/dL (Low)?? 12/21/2022 00:26 Phosphorus 2.1 mg/dL (Low)?? 12/21/2022 00:26 Magnesium 1.6 mg/dL ()?? 12/21/2022 00:26 Alkaline Phosphatase 70 units/L ()?? 12/18/2022 07:31 Lipase 80 units/L (High)?? 12/18/2022 07:31 AST (SGOT) 22 units/L ()?? 12/18/2022 07:31 ALT (SGPT) 11 units/L ()?? 12/18/2022 07:31 Bilirubin, Total 0.2 mg/dL ()?? 12/18/2022 07:31 Bilirubin, Direct <0.2 mg/dL ()?? 12/18/2022 07:31 Bilirubin, Indirect Direct bilirubin is less than the measureable limit. Therefore, indirect mg/dL ()?? 12/18/2022 07:31 Lactate 1.6 mmol/L ()?? 12/19/2022 00:29 ? URINE OTHER Est Creatinine Clearance 85.41 mL/min ()?? 12/21/2022 01:39 ? VIROLOGY COVID-19 by RT-PCR NEGATIVE ()?? 12/17/2022 23:11 ? Microbiology ?? COVID-19 (Novel Coronavirus), Rapid PCR?? Completed?? Source: Nasal Body Site: Nose Collected Dt/Tm: 12/17/2022 22:53 Last Updated Dt/Tm: 12/18/2022 00:35 ? Imaging(s) ?CT Cervical Spine W/O Contrast ?? 12/17/2022 19:10??by Eleuterio Gaston MD ?IMPRESSION: ?? No acute abnormality of the head or cervical spine. ? 30??minutes spent on discharge ?? Patient seen??and discussed with attending physician Dr. Friedman ?? Thea Pyle??DO Internal Medicine PGY1 ?? * Narayan Nicolas: PERFORM Event Display: Patient Education/Instruction Authored Date: [id number] Inpatient Adult Discharge Instructions [address] [address] Name: MELISSA LOMBARDO : 1965 Visit: 12/18/2022 00:03:00 Current Date: 12/21/2022 15:00 Account: [id number] Inpatient Adult Discharge Instructions We would like [...] and their families. Surveys are administered by [employer] ?? If further treatment with your primary care physician or another doctor is recommended, it is important for you to keep the appointment. Call your primary care physician or return to the Emergency Department immediately if your condition worsens, fails to improve, or new symptoms develop. If you need to find a doctor, you can call [facility] [employer] for a referral at [phone] or toll free at [phone] or log in to [email or web address].. ?? You can view and manage your care through the patient portal or by using a health care citlaly of your choosing. [facility] is a website that allows you to securely view your medical information including your hospital discharge summary, office visit summaries, medications and follow-up visits. You can also request appointments, renew medications, and request access to your medical information using a health care citlaly of your choosing, or just ask a question. You can enroll at [email or web address] or register during your next office visit. You have been discharged from [facility], Patient Care Unit: S2. If you have any questions regarding these instructions after you leave, please call us and we will be happy to assist you. [facility] Your Care Team Attending Physician Elder BELTRÁN, Clarice Discharging Providers Thea Pyle DO Reason for Admission ETOH + / Fall Your Diagnosis Symptomatic anemia Chest pain Elevated troponin Tests Performed Below is a partial list of the tests performed during your hospitalization. You may have had other tests and procedures not included in this list. Please discuss all test results with your provider. Alk Phos ALT AST Basic Metabolic Panel Bilirubin Total + Direct BUN CBC CBC w/ Differential COVID-19 (Novel Coronavirus), Rapid PCR Creatinine Electrolytes Glucose Level GLUCOSE POC H + H High??Sensitivity??Troponin T Lactic Acid Level Lipase Lytes Magnesium Level Mg Level Phosphorus Level ProBNP Troponin T, High Sensitivity Type and Screen CT Cervical Spine W/O Contrast CT Head/Brain W/O Contrast XR Chest 2 Views Frontal and Lat XR Hand Min 3 Views Right XR Knee 1 or 2 Views Left Primary Care Provider Not on Staff, PCP Advance Directive Health Care Proxy on File Yes - Health Care Proxy Discharge Vitals Temperature: 98.5 DegF Height: 180 cm Pulse Rate: 68 bpm Weight: 66.1 kg Respiratory Rate: 18 br/min Body Mass Index: 23.15 kg/m2 Systolic Blood Pressure: 130 mm Hg Body surface area: 1.94 Diastolic Blood Pressure: 83 mm Hg ?? Oxygen Saturation: 98 % ?? Studies Pending All tests and labs ordered during this hospital stay have been completed unless listed below. Please discuss all pending results with your provider listed above in these instructions. ?? Transfuse RBCs What to do next Instructions From Your Doctor You came into the hospital after you hit your head on a bus. You were found to have??alcohol intoxication. ??You also had low??hemoglobin,??did noting that you had anemia.?? In the setting of your erosive esophagitis, we gave you a transfusion of blood. ??Youranemia improved after this. There is no concern for acute bleeding at this time. ??You will continue back on your Eliquis 5 mg twice daily??for your recurrent??pulmonary embolisms.?? You are also started on ferrous sulfate 325 mg daily for your anemia.?? You will continue taking your pantoprazole 40 mg twice daily for your esophagitis. Please follow-up with your PCP. Discharge Orders Discharge Medications MELISSA LOMBARDO :1965 Visit Date:12/18/2022 Medications: Please continue your medications until treatment is completed or stopped by your provider. Medications not listed below should be discontinued. Discuss any questions related to medications with your provider. What How Much When Instructions Next Dose New Ferrous Sulfate (ferrous sulfate 325 mg oral enteric coated tablet) 325 Milligram Oral 3 times a day Duration: 30 Days Pickup at [place] [id number] 12/21/22 9pm Unchanged Acamprosate (acamprosate 333 mg oral delayed release tablet) 2 tab(s) Oral 3 times a day TAKE 2 TABLETS BY MOUTH THREE TIMES DAILY ?? 12/21/22 9pm Unchanged Acetaminophen (acetaminophen 500 mg oral tablet) 2 tab(s) Oral Every 6 hours 12/21/22 9pm Unchanged apixaban (apixaban Starter Pack 5 mg oral tablet) 2 tab(s) Oral Twice a day Duration: 7 Days followed by 1 tablet by mouth twice daily for 23 days ?? 12/21/22 9pm Unchanged Duloxetine (duloxetine 30 mg oral enteric coated capsule) 1 capsule Oral Twice a day 12/21/22 9pm Unchanged Folic Acid (folic acid 1 mg oral tablet) 1 tab(s) Oral Daily 12/22/22 9am Unchanged Gabapentin (gabapentin 300 mg oral capsule) 1 capsule Oral 3 times a day 12/21/22 9pm Unchanged Lisinopril (lisinopril 10 mg oral tablet) 1 tab(s) Oral Daily 12/22/22 9am Unchanged Melatonin (Melatonin 5 mg oral tablet) 1 tab(s) Oral Daily at Bedtime as needed for for insomnia As needed Unchanged Multivitamin (multivitamin Multiple Vitamins oral tablet) 1 tab(s) Oral Daily 12/22/22 9am Unchanged Pantoprazole (pantoprazole 40 mg oral delayed release tablet) 1 tab(s) Oral Twice a day 12/21/22 9pm Unchanged Thiamine (thiamine 100 mg oral tablet) 1 tab(s) Oral Daily 12/22/22 9am Pharmacy Information [facility]: [address], [place] [id number] [phone] Test Results Below is a partial list of the most recent Laboratory test results done prior to this discharge. You may have had other tests and procedures not included in this list. Please discuss all test resultswith your provider. Est Creatinine Clearance - 85.41 mL/min (12/21/2022) RBC Available - PT (12/19/2022) RBC Unit ID - [id number] (12/19/2022) Alk Phos (12/18/2022) ???Alkaline Phosphatase - 70 units/L ALT (12/18/2022) ???ALT (SGPT) - 11 units/L AST (12/18/2022) ???AST (SGOT) - 22 units/L Basic Metabolic Panel (12/21/2022) ???Sodium - 134 mmol/L???Potassium - 4.2 mmol/L???Chloride - 98 mmol/L???Bicarbonate Level - 27 mmol/L???Anion Gap - 9???Glucose Level - 112 mg/dL???BUN - 14 mg/dL???Creatinine-Blood - 1.0 mg/dL???Estimated GFR Creatinine - 90 ML/MIN/1.73 M2???Calcium - 8.0 mg/dL Bilirubin Total + Direct (12/18/2022) ? ?Bilirubin, Total - 0.2 mg/dL? ?Bilirubin, Direct - <0.2 mg/dL? ?Bilirubin, Indirect - Direct bilirubin is less than the measureable limit. Therefore, indirect BUN (12/19/2022) ???BUN - 18 mg/dL CBC (12/21/2022) ???WBC - 7.8 k/mm3???RBC - 3.13 m/mm3???Hgb - 8.7 Gm/dL???Hct - 26.7 %???MCV - 85.3 femtoliters???MCH - 27.8 pg???MCHC - 32.6 g/dL???Platelet Count - 350 k/mm3???RDW-SD - 43.5 femtoliters???MPV - 9.6femtoliters???Nucleated RBC (Automated) - 0.0 #/100 WBC'S???Abs. NRBC - 0.0 k/mm3 CBC w/ Differential (12/18/2022) ???WBC - 8.5 k/mm3???RBC - 2.93 m/mm3???Hgb - 7.8 Gm/dL???Hct - 24.2 %???MCV - 82.6 femtoliters???MCH - 26.6 pg???MCHC - 32.2 g/dL???Platelet Count - 348 k/mm3???RDW-SD - 41.7 femtoliters???MPV - 9.6femtoliters???Nucleated RBC (Automated) - 0.0 #/100 WBC'S???Abs. NRBC - 0.0 k/mm3???Abs. Neut - 5.4 k/mm3???Abs. Lymph - 2.3 k/mm3???Abs. [place] - 0.7 k/mm3???Abs. Eo - 0.1 k/mm3???Abs. Baso - 0.0 k/mm3???Neut % - 63.3 %???Lymph % - 26.3 %???[place] % - 7.7 %???Eos % - 1.2 %???Baso % - 0.4 %???Imm Gran - 1.1 %???Abs. Imm Gran - 0.1 k/mm3 COVID-19 (Novel Coronavirus), Rapid PCR (12/17/2022) ???COVID-19 by RT-PCR - NEGATIVE Creatinine (12/19/2022) ???Creatinine-Blood - 1.0 mg/dL???Estimated GFR Creatinine - 88 ML/MIN/1.73 M2 Electrolytes (12/19/2022) ???Sodium - 128 mmol/L???Potassium - 3.6 mmol/L???Chloride - 88 mmol/L???Bicarbonate Level - 31 mmol/L???Anion Gap - 9 Glucose Level (12/19/2022) ???Glucose Level - 112 mg/dL GLUCOSE POC (12/17/2022) ???Glucose, POC - 82 mg/dL H + H (12/19/2022) ???Hgb - 8.4 Gm/dL???Hct - 25.8 % High??Sensitivity??Troponin T (12/17/2022) ???High Sensitivity Troponin (HSTnT) - 29 ng/L Lactic Acid Level (12/19/2022) ???Lactate - 1.6 mmol/L Lipase (12/18/2022) ???Lipase - 80 units/L Lytes (12/19/2022) ???Sodium - 131 mmol/L???Potassium - 4.3 mmol/L???Chloride - 92 mmol/L???Bicarbonate Level - 30 mmol/L???Anion Gap - 9 Magnesium Level (12/21/2022) ???Magnesium - 1.6 mg/dL Mg Level (12/20/2022) ???Magnesium - 1.7 mg/dL Phosphorus Level (12/21/2022) ???Phosphorus - 2.1 mg/dL ProBNP (12/17/2022) ???Nt-Probnp - 185 pg/mL Troponin T, High Sensitivity (12/17/2022) ???High Sensitivity Troponin (HSTnT) - 28 ng/L Type and Screen (12/18/2022) ???Blood Type - B Positive???Antibody Screen - [...] Educational Leaflet Providered with your Discharge Instructions. Alcohol Abuse?? Esophagitis?? Ferrous Sulfate Extended Release Oral Tablet?? Apixaban Oral Tablet?? Anemia?? Valuables and Belongings I fully understand and agree that [facility] accepts no responsibility for all my [...] to send valuables and belongings home. ?? Date for Pt to Sign Valuables/Belongings: 12/18/22 14:55:00 ?? Other Discharge Information ? Case Management Discharge Plan?? Discharge Plan?? Discharge Level of Care at Discharge: Home/Mcc/Foster Care ?? Pulmonary Rehab Status?? Pulmonary Rehab Discharge [...] are strongly encouraged to quit. Please call [facility] [employer] at [phone] or [phone] [place] [address] [phone]) or log in to [email or web address] for referrals to smoking cessation programs. ?? 485 Suicide & Crisis Lifeline is available 01/02 if you or someone you know needs to find a reason to keep living. By calling 871 you'll be connected to a skilled, trained counselor at a crisis center in your area. INPATIENT DISCHARGE INSTRUCTIONS SIGNATURE MELISSA [place] Location:[facility] Registration Date and Time:12/18/2022 00:03 EDT Primary Care Physician: Not on Staff, PCP Attending Physician: Elder BELTRÁN, [facility], I MELISSA LOMBARDO, have received the above patient education materials/instructions and have verbalized understanding. If ambulance or transport services are being used I further acknowledge being given a choice of service. ?? If you need to contact me, please call me at this number: . Patient/Spine Supervisor Name: Patient/Spine Supervisor Signature: Relationship to Patient: Witness Name/Signature: Date: * Thea Pyle DO: PERFORM Event Display: Patient Education Leaflets Authored Date: [id number] Alcohol Abuse ?? [id number] Alcohol Abuse Alcoholic drinks harm you when you have too many of them. No set number of drinks means too much. Drinking that affects your life or your health is called alcohol abuse. Alcohol abuse can hurt your relationships with others. You may lose friends, a spouse, or even your job. You may be abusing alcohol if any of the following are true for you: ??? Duties at home or with child attendant suffer because of drinking. ??? Duties at work or in school suffer because of drinking. ??? You have missed work or school because of drinking. ??? You use alcohol while driving or using machinery. ??? You have legal problems such as arrests because of drinking. ??? You keep drinking even though it causes serious problems in your life. Health problems Alcohol abuse causes many health problems.??Sometimes this can happen after only drinking a ???little. ??The effects depend on how much you drink at one time and how often you drink. The effects also depend on how long you drink. For example, months, years, or decades.??Alcohol affects all parts of your body Brain Alcohol affects the central nervous system. It can damage parts of the brain that control your balance and gait, memory, thinking, and emotions. It can cause: ??? Memory loss ??? Blackouts ??? Depression ??? Agitation ??? Sleep problems ??? Seizures These changes may be care home (permanent). Heart and blood vessels Alcohol can damage heart muscle (cardiomyopathy). This can lead to: ??? Trouble breathing ??? Irregular heartbeat ??? Atrial fibrillation ??? Leg swelling ??? Heart failure Alcohol also makes the blood vessels stiff. This causes high blood pressure. All of these problems raise your risk of having a heart attack or stroke. Liver Alcohol causes fat to build up in the liver. This affects how the liver works. Alcohol also raises the risk for hepatitis. It can cause: ??? Belly (abdominal) pain ??? Belly swelling ??? Loss of appetite ??? Yellowed eyes or skin (jaundice) ??? Bleeding problems ??? Cirrhosis This can make it harder for you to fight off infections. The liver changes keep it from removing toxins in your blood that can cause brain disease (encephalopathy). This condition cause: ??? Confusion ??? Changed level of consciousness ??? Personality changes ??? Memory loss ??? Seizures, coma, and The liver changes can also cause the veins in your esophagus and stomach to become thin and swollenwith blood (varices). This can cause bleeding and vomiting of blood. Pancreas Alcohol can cause swelling (inflammation) of the pancreas (pancreatitis). This can cause belly pain, fever, and diabetes. Immune system Alcohol weakens your immune system. This makes it harder for you to fight infections and colds. It also makes it more likely for you to get pneumonia and tuberculosis. Cancer Alcohol raises the risk for several types of cancer. These include cancer of the mouth, esophagus, pharynx, larynx, liver, and breast. Sexual function Alcohol can lead to sexual problems. ?? Home care These guidelines will help you deal with alcohol abuse: ??? Admit you have a problem with alcohol. ??? Ask for help from your healthcare provider. Also ask for help from trusted family members or close friends. ??? Get help from people trained in dealing with alcohol abuse. This may be one-on-one counseling or group therapy. Or it may be an alcohol treatment program. ??? Join a self-help group for alcohol abuse such as Alcoholics Anonymous. ??? Stay away from people who abuse alcohol or tempt you to drink. ?? Follow-up care Follow up with your healthcare provider, or as advised. Contact these groups to get help: ??? Alcoholics Anonymous (AA) at www.aa.org. Or check the phone book for meetings near you. ??? National Alcohol and Substance Abuse Information Center (NASAIC) at www.addictioncareTwisted Family Creations.EnteGreat or 253-132-4568 ??? National [place] on Alcoholism and Drug Dependence (NCADD) at www.ncadd.org or 368-ARV-LINX (910-942-4872) ?? Call 911 Call 911 if any of these occur: ??? Trouble breathing or slow, irregular breathing ??? Chest pain ??? Sudden weakness on one side of your body or sudden trouble speaking ??? Heavy bleeding or vomiting blood ??? Very drowsy or trouble awakening ??? Fainting or loss of consciousness ??? Rapid heart rate ??? Seizure ?? When to seek medical care Call your healthcare provider right away if any of these occur:? Confusion ??? Seeing, hearing, or feeling things that aren???t there (hallucinations) ??? Pain in your upper belly that gets worse ??? Vomiting that continues, vomiting with blood, or black or tarry stools ??? Severe shakiness ?? Last Reviewed Date: 2021 ?? [employer] All rights reserved. This information is not intended as a substitute for professional medical care. Always follow your healthcare professional's instructions. ?? * Thea Pyle DO: PERFORM Event Display: Patient Education Leaflets Authored Date: [id number] Esophagitis ?? 94063 Esophagitis Do you often have burning pain in your chest? You may have esophagitis. This is when the lining of the esophagus becomes red and swollen (inflamed).??The esophagus is the tube that links your throat to your stomach. This sheet tells you more about esophagitis. It also talks about treatment. With esophagitis, the lining of the esophagus is inflamed. Main types of esophagitis Reflux esophagitis.??This is the more common type.??It's caused by??GERD (gastroesophageal reflux disease). Stomach contents and acid flow back up into the esophagus. This happens over and over. It leads to??inflammation.??You are more likely to get this type if you: ??? Are overweight ??? Have asthma ??? Smoke ??? Are ??? Vomit a lot ??? Take certain medicines, such as aspirin and other nonsteroidal anti- inflammatory drugs (NSAIDs) ??? Have a hiatal hernia Infectious esophagitis.??This is caused by an infection. You are more at risk for this kind if you have a weak immune system and poor nutrition. Using antibiotics can also raise your risk. The infection is often from: ??? A type of fungus (often noa) ??? A virus, such as herpes simplex virus 1 (HSV-1) or cytomegalovirus (CMV) Eosinophilic esophagitis. Foods or other things around you can give you an allergic reaction. This causes an immune response. It may lead to this type of esophagitis. Pill-induced esophagitis. Certain types of medicines can cause inflammation and ulcers in the esophagus. Some of these are: ??? Doxycycline ??? Aspirin ??? NSAIDs ??? Alendronate ??? Potassium ??? Quinidine ??? Iron ?? Symptoms of esophagitis These symptoms can occur with esophagitis: ??? Pain when swallowing, or trouble swallowing ??? Pain behind your breastbone (heartburn) ??? Acid regurgitation ??? Chronic sore throat ??? Gum inflammation ??? Cavities ??? Bad breath ??? Nausea ??? Pain in your upper belly (abdomen) ??? Bleeding (indicated by bright red vomit or black, tarry stool) These symptoms occur more often with reflux esophagitis: ??? Coughing, wheezing, or asthma ??? Hoarseness or laryngitis ?? Diagnosis of esophagitis Your healthcare provider will ask about your past health, recent infections or illnesses, and your symptoms. You???ll also be examined. Sometimes you may need certain tests, such as: ??? Upper endoscopy.??A thin, flexible tube with a tiny light and camera is used. It's put into the mouth down into the esophagus. This lets the provider look for damage. A small sample of tissue (biopsy) may also be taken. The sample is sent to a lab for testing. ??? Upper gastrointestinal (GI) X-ray with barium.??An X-ray is done after you drink a substance called barium.??Barium may??make problems in the esophagus easier to see on an X-ray. ??? Esophageal pH.??A soft, thin tube is passed into the esophagus through the nose or mouth for 24 hours. It measures the acid level in the esophagus. ??? Esophageal manometry. A soft, thin tube is passed into the esophagus through the nose or mouth. It measures muscle contractions in the esophagus. ?? Treatment of esophagitis Medicines. Different medicines can help treat??esophagitis. The medicine used will depend on the type of esophagitis you have. Talk with your healthcare provider. Lifestyle changes. Making these changes can help reduce irritation and ease your symptoms: ??? Limit or don't eat: o Spicy foods (pepper, chili powder, salmeron) o Hard foods (nuts, crackers, raw vegetables) o Acidic foods and drinks (tomatoes, citrus fruits and juices) o High-fat foods o Chocolate o Peppermint ??? Until you can swallow without pain, stick to a combined liquid and soft diet. Try foods such as cooked cereals, mashed potatoes, and soups. ??? Take small bites and chew your food well. ??? Don't eat large meals or heavy meals at night. Don't lie down within 2 to 3 hours of eating. ??? Get to or stay at a healthy weight. ??? Stay away from alcohol, caffeine, and smoking or tobacco products. ??? [place] your teeth at least twice a day and floss every day. ??? Raise your upper body by 4 to 6 inches when lying in bed. This can be done using a foam wedge. Or put blocks or bedrisers under the legs at the head of your bed. Surgery. This may be needed for severe reflux esophagitis.??Other noninvasive procedures to treat GERD and esophagitis are being studied.??Your provider can tell you more. ?? Why treatment is important Without treatment, esophagitis can get worse, especially if you have severe reflux esophagitis. Ongoing symptoms can cause scarring of the esophagus. Over time, scarring can lead to a narrowing of the esophagus (stricture). This can make it hard to pass food down to the stomach. As symptoms go on, they can also cause changes in the lining of the esophagus. These changes can put you at a slightly higher risk of cancer of the esophagus. ?? Last Reviewed Date: 2020 ?? [employer]. All rights reserved. This information is not intended as a substitute for professional medical care. Always follow your healthcare professional's instructions. ?? * Thea Pyle DO: PERFORM Event Display: Patient Education Leaflets Authored Date: [id number] Ferrous Sulfate Extended Release Oral Tablet ?? 38380-13 Ferrous Sulfate Extended Release Oral Tablet Brands: Slow-Fe Uses For anemia. ?? Instructions Swallow the medicine without crushing or chewing it. It is better to take this medicine on an empty stomach. However, if the medicine is not tolerated well, it may be taken with food. Sit or stand upright for 10 minutes after taking the medicine. Do not lie down. After taking other medicines, wait at least 2 hours before taking this medicine. Do not take any other medicines for 2 hours after this medicine. Empty stomach means waiting at least 2 hours after a meal. Swallow with a full glass (8 oz) of water unless your doctor gives you different instructions. Store at room temperature away from heat, light, and moisture. Do not keep in the bathroom. Drink plenty of water while on this medicine. To reduce constipation, eat high fiber foods, drink plenty of water and exercise. Avoid dairy products, coffee, tea or products containing caffeine within 2 hours before or after taking this medicine. Do not take antacids 2 hours before or 2 hours after taking this medicine. It may take several weeks for this medicine to fully work. If you forget to take a dose on time, take it as soon as you remember. If it is almost time for thenext dose, do not take the missed dose. Return to your normal schedule. Do not take 2 doses at one time. Tell your doctor and pharmacist about all your medicines. Include prescription and povk-jlw-dznftpjfjaffywxn, vitamins, and herbal medicines. Speak with your doctor or pharmacist before starting any other vitamins. The foods you eat can change how well this medicine works. Tell your doctor about the types of foodyou normally eat. Ask your doctor for a list of foods that can affect this medicine. Do not significantly change the foods you normally eat while on this medicine. It is very important that you follow your doctor's instructions for all blood tests. This medicine may cause a positive result on some tests that check for blood in the stool. Please tell your doctor or nurse that you are taking this medicine before they perform these tests. ?? Cautions Tell your doctor and pharmacist if you ever had an allergic reaction to a medicine. Do not use the medication any more than instructed. If you drink more than a few alcoholic beverages each day, ask your doctor whether you should be onthis medicine. Tell the doctor or pharmacist if you are , planning to be , or . Do not start or stop any other medicines without first speaking to your doctor or pharmacist. Do not share this medicine with anyone who has not been prescribed this medicine. ?? Side Effects The following is a list of some common side effects from this medicine. Please speak with your doctor about what you should do if you experience these or other side effects. ??? decreased appetite ??? constipation ??? dark, tarry stool If you have any of the following side effects, you may be getting too much medicine. Please contactyour doctor to let them know about these side effects. ??? diarrhea ??? nausea and vomiting ??? stomach pain A few people may have an allergic reaction to this medicine. Symptoms can include difficulty breathing, skin rash, itching, swelling, or severe dizziness. If you notice any of these symptoms, seek medical help quickly. ?? Extra Please speak with your doctor, nurse, or pharmacist if you have any questions about this medicine. ?? [email or web address] IMPORTANT NOTE: This document tells you briefly how to take your medicine, but it does not tell youall there is to know about it. Your doctor or pharmacist may give you other documents about your medicine. Please talk to them if you have any questions. Always follow their advice. There is a more complete description of this medicine available in Georgian. Scan this code on your smartphone or tablet or use the web address below. You can also ask your pharmacist for a printout. If you have any questions, please ask your pharmacist. The display and use of this drug information is subject to Terms of Use. Copyright(c) 2022 [employer]. ?? [employer]. All rights reserved. This information is not intended as a substitute for professional medical care. Always follow your healthcare professional's instructions. ?? XR Hand - right GE 3 Views * [facility]SPowers[facility] , CIS S: TRANSCRIBE Cayla Blunt MD: VERIFY Event Display: Result: Authored Date: [id number] Hand Min 3 Views Right, 3 views Hx of Present Illness: ETOH + Fall; Reason: Pain; Clinical Question(s): Fracture COMPARISON: None. FINDINGS: No fractures or bone lesions. Minimal degenerative changes at the interphalangeal joints with mild spurring. Normal soft tissues. IMPRESSION: There is no evidence of acute fracture or dislocation. WSN: [id number] Ordering Physician: Deloris King Dictated By: Cayla Blunt MD Dictated Date/Time: 12/17/22 7:08 pm Reviewed By: Cayla Blunt MD Signed By: Cayla Blunt MD Signed Date/Time: 12/17/22 7:08 pm Transcribed By: MARC Transcribed Date/Time: 12/17/22 7:06 pm XR Knee - left 1 or 2 Views * MATT Keyes S: Cayla Soriano MD: VERIFY Event Display: Result: Authored Date: [id number] Knee 1 or 2 Views Left, 2 views Hx of Present Illness: ETOH + Fall; Reason: Pain; Clinical Question(s): Fracture COMPARISON: 09/24/2011. FINDINGS: There is no evidence of acute fracture or dislocation. There is no evidence of significant osteoarthritic change. No evidence of joint effusion. IMPRESSION: There is no evidence of acute fracture or dislocation. WSN: [id number] Ordering Physician: Deloris King Dictated By: Cayla Blunt MD Dictated Date/Time: 12/17/22 7:15 pm Reviewed By: Cayla Blunt MD Signed By: Cayla Blunt MD Signed Date/Time: 12/17/22 7:15 pm Transcribed By: MARC Transcribed Date/Time: 12/17/22 7:[address] Cervical spine WO contrast * MATT Keyes S: Eleuterio Lemus MD: VERIFY Event Display: Result: Authored Date: [id number] CT Head/Brain W/O Contrast, CT Cervical Spine [...] DLP Head: 810 mGy*cm. 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 BRAIN [...] of the head or cervical spine. WSN: [id number] Ordering Physician: Deloris King Dictated By: Eleuterio Gaston MD Dictated Date/Time: 12/17/22 7:19 pm Reviewed By: Eleuterio Gaston MD Signed By: Eleuterio Gaston MD Signed Date/Time: 12/17/22 7:19 pm Transcribed By: MARC Transcribed Date/Time: 12/17/22 7:[address] Head WO contrast * [facility] , CIS S: TRANSCRIBE Eleuterio Gaston MD: VERIFY Event Display: Result: Authored Date: [id number] CT Head/Brain W/O Contrast, CT Cervical Spine [...] DLP Head: 810 mGy*cm. 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 BRAIN [...] of the head or cervical spine. WSN: [id number] Ordering Physician: Deloris King Dictated By: Eleuterio Gaston MD Dictated Date/Time: 12/17/22 7:19 pm Reviewed By: Eleuterio Gaston MD Signed By: Eleuterio Gaston MD Signed Date/Time: 12/17/22 7:19 pm Transcribed By: MARC Transcribed Date/Time: 12/17/22 7:13 pm Laboratory * Alexandra , CIS S: KATE Martini MD, Korey S: VERIFY Event Display: Result: Authored Date: [id number] Chest 2 Views Frontal and Lat Hx of Present Illness: ETOH + Fall; Reason: Other:; Shortness of Breath, Fever; Clinical Question(s): Pneumonia COMPARISON: 10/29/2022 FINDINGS: LINES AND TUBES: None. LUNGS AND PLEURA: Clear lungs. Normal pulmonary vascularity. No pleural effusion. No pneumothorax. HEART, MEDIASTINUM AND MARCY: Heart is normal in size. Normal mediastinal and hilar contour. BONES AND SOFT TISSUES: Status post multiple rib fixations. Chronic lower thoracic compression fracture. IMPRESSION: No acute abnormality. WSN: [id number] Ordering Physician: Deloris King Dictated By: Korey Martini MD Dictated Date/Time: 12/17/22 10:08 p Reviewed By: Korey Martini MD Signed By: Korey Martini MD Signed Date/Time: 12/17/22 10:08 pm Transcribed By: MARC Transcribed Date/Time: 12/17/22 10:07 pm Patient Care team information Care Team Personnel Name: Unique Dubon RN Position: [facility] RN Member Role: Primary Care Nurse Name: Kadi Oliver RN Position: [facility] AMB Nurse Member Role: Primary Care Nurse Name: Mary Roberson RN Position: [facility] SN RN Member Role: Primary Care Nurse Name: Daniel Rodriguez RN Position: [facility] RN Member Role: Primary Care Nurse Name: Liz Sweet RN Position: [facility] RN Member Role: Primary Care Nurse Name: Dev De León RN Position: [facility] RN Member Role: Primary Care Nurse Name: Toyin Contreras RN Position: [facility] Onco RN Member Role: Primary Care Nurse Name: Not on Staff, PCP Position: [facility] Physician (General Medicine) Member Role: PCP Name: Tierra Juan RN Position: [facility] SN RN Member Role: Primary Care Nurse Name: Veena Arthur RN Position: [facility] RN Member Role: Primary Care Nurse Name: Toshia Arce RN Position: [facility] RN Member Role: Primary Care Nurse Name: Ashlyn Kenney Position: [facility] AMB MA Member Role: Primary Care Nurse Name: Sameera Chappell RN Position: [facility] RN Member Role: Primary Care Nurse Name: Velia Shepherd RN Position: [facility] RN Member Role: Primary Care Nurse Name: Shelby Boothe RN Position: [facility] PCO w/OE and EZ Script Member Role: Primary Care Nurse Name: Francoise Whaley RN Position: [facility] Hospital Donor Center Technician Member Role: Primary Care Nurse Name: Elizabeth Chung RN Position: [facility] RN Member Role: Primary Care Nurse Name: [facility] Attending Position: [facility] ED Medicine MD Name: Gwen Osorio Position: [facility] ED TA [facility] Member Role: Assistant Professor Of Philosophy Name: Shelea Malcolm Position: [facility] ED [facility] Member Role: Assistant Professor Of Philosophy Name: Ita Pierre RN Position: [facility] ED RN W/OE and Tasks Member Role: Patient Care Provider Care Team Related Persons Name: KATINA OPAL Address: [address] [address] Name: QUAN LOMBARDO Name: AMOS LOMBARDO Address: [place] [address]
--- OUTSIDE RECORDS SUMMARY | 2023-05-03 21:45 | XMS_ITS | Continuity of Care Document ---
Author Name Unknown Organization [facility] Address [address] [place] [id number]- Care Team Providers Care Sap Business Objects Developer Name Role Phone Maximo Morfin MD Primary Care Physician [phone] Encounter [facility] Date(s): 01/12/23 - 01/13/[address] [address]- Encounter Diagnosis Alcohol intoxication(Final) - 01/12/23 Discharge Disposition: A-D/C Home Attending Physician: Dileep Boo MD Admitting Physician: Dileep Boo MD Referring Physician: Not on Staff, Referring MD Allergies, Adverse Reactions, Alerts Substance Reaction Severity Status Bee Stings Active Immunizations Given and Recorded Vaccine Date Status Refusal Reason influenza virus vaccine, inactivated 05/15/22 Marcos rded influenza virus vaccine, inactivated 04/15/22 Marcos rded influenza virus vaccine, inactivated 09/10/21 Marcos rded influenza virus vaccine, inactivated 05/10/17 Marcos rded influenza virus vaccine, inactivated 04/27/16 Marcos rded [id number] 12y+ bivalent booster vax 05/15/22 Recorded SARS-CoV-2 mRNA ([id number]-snuls) vax 11/19/21 Recorded tetanus/diphtheria/pertussis, acel(Tdap) 08/05/21 Recorded [...] 12/27/22 10:16:00 EDT, Route to Pharmacy Electronically, [facility], Partial fill upo... Start Date: 12/27/22 Stop Date: 02/04/23 Status: Ordered apixaban Starter Pack 5 mg oral tablet 2 tablet = 10 mg, By Mouth, 2 times a day, followed by 1 tablet by mouth twice daily for 23 days, #74 tablet, 0 Refills, Maintenance, 11/03/22 9:55:00 EDT, [facility], Partial fill upon [...] 12/21/22 14:06:00 EDT, Route to Pharmacy Electronically, [facility], Partial fill upon [...] 0 Refills, Maintenance, 01/05/23 9:31:00 EDT, Tablet, [facility], Partial fill upon [...] 0 Refills, Maintenance, 10/15/20 10:30:00 EDT, Tablet, [facility], Partial fill upon patient request [...] 01/05/23 9:00:00 EDT, Route to Pharmacy Electronically, [facility], Partial fill upon patient request if theprescription is for a schedule II opioid drug., 180... Start Date: 01/05/23 Status: Ordered Senna 8.6 mg oral tablet 8.6 mg, 1, tablet, By Mouth, Daily at bedtime, # 30 tablet, Refills 0, Tot. Refills 0, Maintenance,01/05/23 8:59:00 EDT, Route to Pharmacy Electronically, [facility], Partial fill uponpatient [...] 3 Oxygen Saturation [94-100 %] 98 % (01/13/23 5:15 AM) 95 % (01/12/23 10:32 PM) 95 % (01/12/23 2:53 PM) Pulse Rate [55-90 bpm] 76 bpm (01/13/23 5:15 AM) 62 bpm (01/12/23 10:32 PM) 79 bpm (01/12/23 2:53 PM) Blood Pressure [90-138/55-84 mm Hg] 147/74mm Hg *H* (01/13/23 5:15 AM) 115/68mm Hg (01/12/23 10:32 PM) 103/59mm Hg (01/12/23 2:53 PM) Respiratory Rate [16-30 br/min] 18 br/min (01/13/23 5:15 AM) 16 br/min (01/12/23 10:32 PM) 20 br/min (01/12/23 2:53 PM) Temperature [96.8-100.4 DegF] 98.1 DegF (01/13/23 5:15 AM) 97.6 DegF (01/12/23 2:53 PM) Mode of Delivery (Oxygen) Room air (01/13/23 5:15 AM) Room air (01/12/23 10:32 PM) Room air (01/12/23 2:53 PM) Blood pressure sites Arm, right (01/13/23 5:15 AM) Arm, right (01/12/23 10:32 PM) Arm, left (01/12/23 2:53 PM) Temperature Route Oral (01/13/23 5:15 AM) Oral (01/12/23 2:53 PM) Social History Social History Type Response Smoking Status Current every day sm oker; Type: Cigarettes; Other: 6 cigarettes per day; entered on: 09/27/15 Sex Note * Ema BELTRÁN, Dileep R: PERFORM Event Display: Patient Education Leaflets Authored Date: [id number] Alcohol Intoxication ?? [id number] Alcohol Intoxication Alcohol intoxication is very serious. [...] to families at www.al-anon.org . Or call [phone]. ??? SMART Recovery ( Self- Management and Recovery Training). A nationwide abstinence-oriented support group for people with addictive issues. This free program is focused on motivation to change, urge control, and living a balanced life. For more information and meetings near you, go to www.[employer].org/ ??? Substance Abuse and Mental Health Services Administration (SAMHSA) Treatment Devops Consultant. Free information on treatment resources in your area at https://findtreatment.gov/. Or call [phone]. Call 911 Call 911 if any of [...] vomiting ?? Last Reviewed Date: 2021 ?? 9132-9241 [employer]. All rights reserved. This information is not intended as a substitute for professional medical care. Always follow your healthcare professional's instructions. ?? * Trista Aquino MD: PERFORM Event Display: Patient Education Leaflets Authored Date: [id number] Alcohol Intoxication ?? [id number] Alcohol Intoxication Alcohol intoxication is very serious. [...] to families at www.al-anon.org . Or call [phone]. ??? SMART Recovery ( Self- Management and Recovery Training). A nationwide abstinence-oriented support group for people with addictive issues. This free program is focused on motivation to change, urge control, and living a balanced life. For more information and meetings near you, go to www.[employer]umm[employer].org/ ??? Substance Abuse and Mental Health Services Administration (SAMHSA) Treatment Devops Consultant. Free information on treatment resources in your area at https://findtreatment.gov/. Or call [phone]. Call 911 Call 911 if any of [...] vomiting ?? Last Reviewed Date: 2021 ?? [employer]. All rights reserved. This information is not intended as a substitute for professional medical care. Always follow your healthcare professional's instructions. ?? * Trista Aquino MD: PERFORM Event Display: Patient Education Leaflets Authored Date: [id number] Harm Reduction Discharge Instructions ?? 152 ? [facility] If you are unsure or not ready to start taking medications like buprenorphine (Suboxone), or want to speak confidentially to a trained medical, peer or motor coach tour operator, your local [facility] offers the following services: ?? Drug Use Counseling Syringe Access and Disposal Overdose Prevention and Narcan Access Testing for HIV, STD???s and Hepatitis C Safer Drug Use and Safer Sex Supplies ?? Walk into any [facility] location during business hours or for mobile health delivery, call ?? [address] [address] Hours: Wednesday-Wednesday 8AM-4PM ?? [place] [address] Hours: Wednesday-Wednesday 8AM-4PM ?? [address] [address] Hours: Wednesday-Wednesday 8AM-4PM ?? [address], [address] [place] [address] Hours: Wednesday-Wednesday 9AM-5PM ?? [place] [address] [facility] [place], [place] [id number] Hours: Wednesday-Wednesday 8:30AM-4:30PM ? Tips to Stay Healthy for People who Inject Drugs .?? You have been seen at the [facility] Emergency Department for a problem related to Injection Drug Use. Risks of injecting drugs include:? Damage to blood vessels ??? Painful skin infections like cellulitis and abscesses ??? Dangerousbloodstream infections that can damage your organs, including your heart and spinal cord ??? Becoming infected with a virus including Hepatitis C and HIV (the virus that causes AIDS)? Overdose and ?? The best way to lower the risks of injecting drugs is to begin treatment with medications like Buprenorphine (Suboxone), Methadone or Naltrexone. If you are interested in treatment, we have phone numbers of medical aide that can help you start or continue treatment (below).?? However, if you are not yet ready to stop injecting drugs, there are things you can do to keep yourself healthy. Below are tips to help you stay healthy and decrease the dangers of injecting drugs. ?? 1. Try to use a new needle every time you inject. NEVER share needles. Viruses like Hepatitis can live on used needles for hours to days. Reusing the same needle will dull the needle tip, leading to trauma to the blood vessels and more painful injecting.? Never share needles ??? Try to use a new, unused needle every time you inject o You can get free unused needles at [facility] Syringe Access Sites o Many drug stores, like [employer], sell unused insulin needles . ??? Do not sharpen an old needle ??? it creates barbs that can damage your skin and blood vessels. ??? If you must share a needle, cleaning it before use may reduce the risk ofinfection. o Flush it with sterile water. If you don???t have sterile water, use cold tap water. o Fill the syringe with household bleach. Shake for 2 minutes. If you don???t have bleach, you can userubbing alcohol or hydrogen peroxide o Flush it with water again 1. Use sterile water to mix your drugs . Tap water contains bacteria that can cause an infection when injected. ??? Use sterile water or sterile saline if possible. o You can get sterile water at [facility] Syringe Services Sites o Many drug stores, like [employer], sell sterile water. ??? If you do not have sterile water, you can boil water for 10 minutes. Let the water cool before injecting. 1. Wipe your skin with an alcohol pad before you inject Even with unused needles and sterile water, bacteria on your skin can be pushed into your blood when injecting. ??? Wash your hands with soap and water before injecting. ??? When you are ready to inject, rub your skin with an alcohol wipe to kill the bacteria on your skin. 1. Rotate Injection Sites Using the same site many times can cause scarring, bruising and infection. ??? Rotate injection sites, using different sides and different veins. ??? If you are using the same vein, inject at least one inch away from the previous site. ??? Avoid the veins in your neck, groin and feet. 1. Reduce your risk of overdose Most heroin contains fentanyl, a powerful drug that causes many deaths. Here are best practices youcan do to reduce your risk of dying from an overdose ??? Whenever possible, use with a trusted friend or partner. Take turns injecting ??? Narcan can save your life if you overdose. Have Naloxone (Narcan) at arm???s reach when you inject. Make sure your partner knows where the Narcan is and how to use it in case of an overdose o You can get Narcan for free at [facility] Syringe Services Sites o Drug stores, like [employer] and [employer] provide Narcan without a prescription ??? Do not mix heroin with alcohol or other drugs. ??? If you have not used drugsin a long time, or if you are buying from a new dealer, your body may not be used to the strength of the drug. You should: o Start with a lower dose. o Consider using a ???pauline shot?? , injecting asmall amount first to make sure the drug is not too strong, before you inject your regular dose . ??? If you must use alone, find a place where someone would see you if you had an overdose. Do not use in a locked bathroom. ?6. If you see an overdose: Call 911! Signs of overdose include slow breathing, blue face or lips, or if you are unable to wake the person. If you suspect an overdose ??? CALL 911 immediately! ??? Give Narcan if you have it ??? DO NOT try to inject salt water, inject stimulant drugs, or put the victim in a cold-water bath. ? [facility] Syringe Service Sites are an important resource ??? [facility] provides free supplies for people who inject drugs, including: Naloxone (NARCAN), unused needles, sterile water, alcohol pads, cookers and tourniquets. ??? They will help teach you how to inject safely to reduce the risk of complications ??? They can help you find treatment, support and resources to improve your life. ?? [facility] Syringe Service Sites in [facility] ? [address] [place], [place] ?? [address] [facility] extension 1 ? [facility] Emergency Department can help! The Emergency Department at [facility] has physicians, social workers, nurses, mental health and financial counselors with experience in treating patients with opioid use disorder. ? Between 9:00am-4:00pm call [phone] to speak to the Follow Up Nurse. ??? From 4:00pm-9:00am call [phone] to speak to an emergency department territory account representative. ??? If you feel unsafe, are ready fortreatment immediately, or have any emergency, we are available 01/02 to help you. ?? RESOURCES TO TREAT OPIOID USE DISORDER ? [facility] Syringe Services in [facility] If you are not ready to stop using injection drugs, [facility] provides unused needles, Narcan, and education on how to prevent overdose and infection. ? [facility] [address] [place], [place] ?? [facility] [address] [facility] extension 1 ?? [facility] Centers that offer Suboxone If you have a primary doctor in any of the following locations, they will be able to help you continue buprenorphine (Suboxone) ? [facility] [address] [place] [address] ?? [facility] [address] [place] [address] ?? [facility] [address] [place] [address] Direct Line: [phone] ?? [facility] [address] [place] [address] ?? [facility] [address] [place] [address] ?? [facility] [address] [place] [address] ?? Private Suboxone Clinics Standalone Private clinics willing to accept new patients. Of note, the Suboxone clinics below usually require a photo ID and Insurance ? Product Support [facility] [address] [facility] [[email or web address]] [address] P: [phone] ?? [facility] [address] [place] [address] ?? [facility] [address] [facility] [address] [place] [address] Central Line: [phone] ?? [facility] [address] [place] [address] ?? [facility] [address] [place] [address] ?? [facility] [address] [place] [address] ?? [facility] [address] [place] [address] ? ADDITIONAL RESOURCES ?? Transportation If transportation is a challenge for you, there may be options available at low or no cost. Some organizations, like [employer], help people with transportation through their case management teams. If you are on [facility], you are eligible to have PT-1 transportation to your medical appointments at clinics or doctors??? offices. Call your primary care provider or clinic to ask for help with transportation as soon as possible. ?? Insurance [place] Medicaid ([employer]) will pay for a suboxone prescription. Eligibility for [facility] depends on your income and assets. ?? Applying for [facility]. ?? [facility] Enrollment [facility] [address] [facility], [facility] [address] ?? Enrollment Hotline: For more information or to enroll online: https://www.Hop Skip Connect.gov/topics/[facility]. ?? Medicare may pay for some or all of your prescription, depending on the Medicare plan you are signed up for.[1] To be eligible you must be over 65 or have a permanent disability. Medicare Part A/B will cover buprenorphine given in a facility such as a detox or early stabilization program. Medicare Part C/D may have copays that range depending on the plan. For advice and information, speak with a SHAKIRA counselor at your local elder services organization or by calling . ?? [address], [address] [place], [place]. ?? If you have Private Health Insurance,, you should call the hotline number on the back of your insurance card for more information on coverage and co-pays. ?? If you need to obtain a Photo ID or are having difficulty obtaining Insurance ? [facility] Financial Services (insurance) Can assist with applying for ??insurance [facility] [address] [place], [place] [facility] (To obtain a Photo ID) [address] [place] [address] ? Counseling and Recovery ?? Detox Even if you start buprenorphine from the emergency department, it may be beneficial to go into a formal detox program. For more information on detox placement, please reach out to the [facility] Emergency Department Orchestra Leader at [phone]. ?? Outpatient Counseling Resources ?? [facility] ([facility]) - 2-637-[phone]-HELP?? ([phone]) https://[facility].org/counseling/ Locations: [facility], [place], [place] *Languages: Rwandan, Sudanese, Malian, and Djiboutian * Outreach therapy available * ?? Clinical Support Options (CABINET WORKER) - [phone] www.csoinc.org Locations: [place], [place], [place], [place], Roger Manrique *Has walk-in appointments* ?? [facility] (N) - [phone] [facility].org/ Locations: [place] (multiple locations), Nando Wolff, Jose L Ivory * Sudanese-language * Walk-in appointments available * Outreach therapy available * ?? [facility] - [phone] https://[email or web address]./ Locations: [facility] *Sudanese-language * Outreach therapy available * ? Recovery Coaching Programs Recovery Coaches are peer-lead programs where you meet with someone in the community to help you navigate and plan your recovery. Recovery coaches are free and do not require insurance. ? [facility] Recovery and Peer Support [address] [place], [place] [phone]; [phone] [email or web address] ?? [facility] [address] [place], [place] [phone]; [phone] [email or web address] ?? [facility] Recovery Coaching and Case Management Services -Alix Sampson [address] [place] [address] ?? The RECOVER Project - Velia Jose [address] [place] [phone] www.recoverproject.org ?? [facility]?? - Geeta Pitts [address] [place] [address] [email or web address] ?? [facility] [address] [phone]; [email or web address] ?? [facility] - Clara Leos???[address], [place], [place] Open Wednesday and Wednesday 1:00-4:00 [email or web address] ? Intensive Outpatient Programs Programs that have scheduled meetings, sessions and workshops. Allows patients to still work and complete in daily home activities while also participating in treatment. ? [facility] [place] [address] [place], [place] [phone] [email or web address] ?? [facility] SOAP Program - Ambreen Tosado [address] [place], [place] [phone] [email or web address] ?? [facility] [address] [place], [place] [phone] www.[facility].[employer] ?? [facility] Program [address] [place], [place] [phone] www.[employer] ?? [facility] Intensive Outpatient Program [address] [facility], Entrance [place], [place] [phone] www.[facility].org ?? [facility] [address] [place], [place] [phone] www.[facility].org ?? Clinical Support Options www.oinc.org ?? [address], [place], [place] [phone] ?? [address] [place], [place] [phone] ?? [address] [place], [place] [phone] ?? Narcotic Anonymous - www.na.org ? [facility] - [phone] ?? www.acna.org ? [facility] - [phone] www.nerna.org ? [facility] - [phone] www.[employer].com.[employer] ?? [1] https://www.[facility] districta.gov/upcpclpigz-mkagqhak-ncazebpld/treatment/insurance-payment s ? Patient Care team information Care Team Personnel Name: Unique Dubon RN Position: S RN Member Role: Primary Care Nurse Name: Maximo Morfin MD Position: S Outreach Member Role: PCP Address: Address: [address] [place] [address]- [place] Name: Kadi Oliver RN Position: [facility] AMB Nurse Member Role: Primary Care Nurse Name: Mary Roberson RN Position: [facility] SN RN Member Role: Primary Care Nurse Name: Daniel Rodriguez RN Position: [facility] RN Member Role: Primary Care Nurse Name: Liz Sweet RN Position: [facility] RN Member Role: Primary Care Nurse Name: Dev De León RN Position: [facility] RN Member Role: Primary Care Nurse Name: Alexa Mitchell LPN Position: [facility] RN Member Role: Primary Care Nurse Name: Mary Arceo RN Position: [facility] RN Member Role: Primary Care Nurse Name: Toyin Contreras RN Position: [facility] Onco RN Member Role: Primary Care Nurse Name: Tierra Juan RN Position: [facility] SN RN Member Role: Primary Care Nurse Name: Veena Arthur RN Position: [facility] RN Member Role: Primary Care Nurse Name: Toshia Arce RN Position: [facility] RN Member Role: Primary Care Nurse Name: Ashlyn Kenney Position: [facility] AMB [place] Member Role: Primary Care Nurse Name: Sameera Chappell RN Position: [facility] RN Member Role: Primary Care Nurse Name: Velia Shepherd RN Position: [facility] RN Member Role: Primary Care Nurse Name: Shelby Boothe RN Position: [facility] PCO w/OE and EZ Script Member Role: Primary Care Nurse Name: Francoise Whaley RN Position: [facility] Hospital Power Plant Operator Member Role: Primary Care Nurse Name: Elizabeth Chung RN Position: [facility] RN Member Role: Primary Care Nurse [facility] Attending Position: [facility] ED Attendings Patient Name: Dileep Boo MD Position: [facility] ED Medicine MD Member Role: ED Attending Physician Address: Address: [address] [place] [address] [place] [address]- Name: Allegra Almaguer Position: [facility] ED RN W/OE and Tasks Member Role: Patient Care Provider Name: Kaye Garsia Position: [facility] ED TA [facility] Member Role: Patient Care Provider Care Team Related Persons Name: OPAL AMBRIZ Address: [address] [address] Name: QUAN LOMBARDO Address: home [address] [place] [address] Name: AMOS LOMBARDO Address: [place] [address]
--- OUTSIDE RECORDS SUMMARY | 2023-05-03 21:45 | XMS_ITS | Continuity of Care Document ---
Author Name Unknown Organization [facility] ter Address [address] [place] [id number]- Care Team Providers Care Advertising Display Rotator Name Role Phone Maximo Morfin MD Primary Care Physician Encounter [facility] [place] Date(s): 01/11/23 - 01/11/[address] [address]- Discharge Disposition: A-D/C Walkout Attending Physician: Not [...] influenza virus vaccine, inactivated 04/27/16 Marcos rded [id number] 12y+ bivalent booster vax 05/15/22 Recorded SARS-CoV-2 mRNA ([id number]) vax 11/19/21 Recorded tetanus/diphtheria/pertussis, acel(Tdap) 08/05/21 Recorded [...] 12/27/22 10:16:00 EDT, Route to Pharmacy Electronically, [facility], Partial fill upo... Start Date: 12/27/22 Stop Date: 02/04/23 Status: Ordered apixaban Starter Pack 5 mg oral tablet 2 tablet = 10 mg, By Mouth, 2 times a day, followed by 1 tablet by mouth twice daily for 23 days, #74 tablet, 0 Refills, Maintenance, 11/03/22 9:55:00 EDT, [facility], Partial fill upon patient request [...] 12/21/22 14:06:00 EDT, Route to Pharmacy Electronically, [facility], Partial fill upon patient request [...] 0 Refills, Maintenance, 01/05/23 9:31:00 EDT, Tablet, [facility], Partial fill upon patient request [...] 0 Refills, Maintenance, 10/15/20 10:30:00 EDT, Tablet, [facility], Partial fill upon [...] 01/05/23 9:00:00 EDT, Route to Pharmacy Electronically, [facility], Partial fill upon patient request if theprescription is for a schedule II opioid drug., 180... Start Date: 01/05/23 Status: Ordered Senna 8.6 mg oral tablet 8.6 mg, 1, tablet, By Mouth, Daily at bedtime, # 30 tablet, Refills 0, Tot. Refills 0, Maintenance,01/05/23 8:59:00 EDT, Route to Pharmacy Electronically, [facility], Partial fill uponpatient [...] recent to oldest [Reference Range]: 1 2 Height 180 cm (01/11/23 12:40 PM) 180 cm (01/11/23 12:28 PM) Oxygen Saturation [94-100 %] 97 % (01/11/23 12:28 PM) Pulse Rate [55-90 bpm] 79 bpm (01/11/23 12:28 PM) Blood Pressure [90-138/55-84 mm Hg] 99/6 1mm Hg (01/11/23 12:28 PM) Respiratory Rate [16-30 br/min] 18 br/mi n (01/11/23 12:28 PM) Temperature [96.8-100.4 DegF] 97.8 DegF (01/11/23 12:28 PM) Mode of Delivery (Oxygen) Room air (01/11/23 12:28 PM) Blood pressure sites Arm, left (01/11/23 12:28 PM) Temperature Route Oral (01/11/23 12:28 PM) Dry Weight 73 kg (01/11/23 12:40 PM) 73 kg (01/11/23 12:28 PM) Dry Weight Obtained Via Patient/family s tated (01/11/23 12:28 PM) Social History Social History Type Response Smoking Status Current every day sm oker; Type: Cigarettes; Other: 6 cigarettes per day; entered on: 09/27/15 Sex Patient Care team information Care Team Personnel Name: Unique Dubon RN Position: [facility] RN Member Role: Primary Care Nurse Name: Maximo Morfin MD Position: [facility] Outreach Member Role: PCP Address: Address: [address] [place] [id number] Name: Kadi Oliver RN Position: [facility] AMB Nurse Member Role: Primary Care Nurse Name: Mary Roberson RN Position: [facility] SN RN Member Role: Primary Care Nurse Name: Daniel Rodriguez RN Position: [facility] RN Member Role: Primary Care Nurse Name: Liz Sweet RN Position: [facility] RN Member Role: Primary Care Nurse Name: Dev De León RN Position: [facility] RN Member Role: Primary Care Nurse Name: Alexa Mitchell LPN Position: [facility] RN Member Role: Primary Care Nurse Name: Mary Arceo RN Position: [facility] RN Member Role: Primary Care Nurse Name: Toyin Contreras RN Position: [facility] Onco RN Member Role: Primary Care Nurse Name: Tierra Juan RN Position: [facility] SN RN Member Role: Primary Care Nurse Name: Veena Arthur RN Position: [facility] RN Member Role: Primary Care Nurse Name: Toshia Arce RN Position: [facility] RN Member Role: Primary Care Nurse Name: Ashlyn Kenney Position: [facility] AMB [place] Member Role: Primary Care Nurse Name: Sameera Cahppell RN Position: [facility] RN Member Role: Primary Care Nurse Name: Velia Shepherd RN Position: [facility] RN Member Role: Primary Care Nurse Name: Shelby Boothe RN Position: [facility] PCO w/OE and EZ Script Member Role: Primary Care Nurse Name: Judd HUSSEIN, Francoise Position: [facility] Hospital It Engineer Member Role: Primary Care Nurse Name: Sheldon HUSSEIN, Elizabeth Position: [facility] RN Member Role: Primary Care Nurse Care Team Related Persons Name: OPAL AMBRIZ Address: home [address] [address] Name: QUAN LOMBARDO Address: home [address] [place] [address] Name: AMOS LOMBARDO Address: [place] [address]
--- OUTSIDE RECORDS SUMMARY | 2023-05-03 21:45 | XMS_ITS | Continuity of Care Document ---
Author Name Unknown Organization [facility] ter Address [address] [place] [address]- Care Team Providers Care Right Of Way Appraiser Name Role Phone Maximo Morfin MD Primary Care Physician [phone] Encounter [facility] [place] Date(s): 02/01/23 - 02/01/[address] [address]- Encounter Diagnosis Shaking(Final) - 02/01/23 Discharge Disposition: A-D/C Home Attending Physician: Yoav Buckner MD Admitting Physician: Yoav Buckner MD Referring Physician: Not on Staff, Referring MD Allergies, Adverse Reactions, Alerts Substance Reaction Severity Status Bee Stings Active Immunizations Given and Recorded Vaccine Date Status Refusal Reason influenza virus vaccine, inactivated 05/15/22 Marcos rded influenza virus vaccine, inactivated 04/15/22 Marcos rded influenza virus vaccine, inactivated 09/10/21 Marcos rded influenza virus vaccine, inactivated 05/10/17 Marcos rded influenza virus vaccine, inactivated 04/27/16 Marcos rded [id number] 12y+ bivalent booster vax 05/15/22 Recorded SARS-CoV-2 mRNA ([id number]) vax 11/19/21 Recorded tetanus/diphtheria/pertussis, acel(Tdap) 08/05/21 Recorded tetanus/diphtheria/pertussis, acel(Tdap) 05/10/17 Recorded tetanus/diphtheria/pertussis, acel(Tdap) 09/30/13 Given SARS-CoV-2 (COVID-19) mRNA BNT-162b2 vac 06/19/21 Recorded zoster vaccine, inactivated 06/17/21 Recorded SARS-CoV-2 (COVID-19) Ad26 vaccine 10/22/20 Record ed pneumococcal 23-valent vaccine 04/17/15 Recorded pneumococcal 23-valent vaccine 8/18/11 Given tetanus-diphtheria toxoids (Td) 02/15/09 Recorded Diphth-Tetanus [...] 12/27/22 10:16:00 EDT, Route to Pharmacy Electronically, [facility], Partial fill upo... Start Date: 12/27/22 Stop Date: 02/04/23 Status: Ordered apixaban Starter Pack 5 mg oral tablet 2 tablet = 10 mg, By Mouth, 2 times a day, followed by 1 tablet by mouth twice daily for 23 days, #74 tablet, 0 Refills, Maintenance, 11/03/22 9:55:00 EDT, [facility], Partial fill upon patient [...] 12/21/22 14:06:00 EDT, Route to Pharmacy Electronically, [facility], Partial fill upon patient [...] 0 Refills, Maintenance, 01/05/23 9:31:00 EDT, Tablet, [facility], Partial fill upon patient [...] 0 Refills, Maintenance, 10/15/20 10:30:00 EDT, Tablet, [facility], Partial fill upon [...] EDT, Route to Pharmacy Electronically, [facility], Partial fill upon patient request if theprescription is for a schedule II opioid drug., 180... Start Date: 01/05/23 Status: Ordered Senna 8.6 mg oral tablet 8.6 mg, 1, tablet, By Mouth, Daily at bedtime, # 30 tablet, Refills 0, Tot. Refills 0, Maintenance,01/05/23 8:59:00 EDT, Route to Pharmacy Electronically, [facility], Partial fill uponpatient request if the [...] [Reference Range]: 1 2 Height 180 cm (02/01/23 3:02 AM) 180 cm (02/01/23 2:53 AM) Oxygen Saturation [94-100 %] 98 % (02/01/23 5:45 AM) 97 % (02/01/23 2:53 AM) Pulse Rate [55-90 bpm] 66 bpm (02/01/23 5:45 AM) 99 bpm *H* (02/01/23 2:53 AM) Blood Pressure [90-138/55-84 mm Hg] 170/ 84mm Hg *H* (02/01/23 5:45 AM) 178/94mm Hg *H* (02/01/23 2:53 AM) Temperature [96.8-100.4 DegF] 97.9 DegF (02/01/23 2:53 AM) Mode of Delivery (Oxygen) Room air (02/01/23 5:45 AM) Room air (02/01/23 2:53 AM) Blood pressure sites Arm, left (02/01/23 5:45 AM) Arm, right (02/01/23 2:53 AM) Temperature Route Oral (02/01/23 2:53 AM) Dry Weight 75 kg (02/01/23 3:02 AM) 75 kg (02/01/23 2:53 AM) Dry Weight Obtained Via Patient/family s tated (02/01/23 2:53 AM) Social History Social History Type Response Smoking Status Current every day sm oker; Type: Cigarettes; Other: 6 cigarettes per day; entered on: 09/27/15 Sex Note * Yoav Buckner MD: PERFORM Event Display: Patient Education Leaflets Authored Date: [id number] Alcohol Abuse ?? [id number] Alcohol Abuse Alcoholic drinks harm you when [...] ??? Duties at home or with child psychometrist suffer because of drinking. ??? Duties at [...] problems ??? 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 Heart and blood vessels Alcohol can [...] and Substance Abuse Information Center (NASAIC) at www.addictioncareCrowd Sense or 242-074-8211 ??? National Mechoopda on Alcoholism and Drug Dependence (NCADD) at www.ncadd.org or 940-IYH-IVET (552-673-3161) ?? Call 911 Call 911 if any [...] shakiness ?? Last Reviewed Date: 2021 ?? 6153-1660 [employer]. All rights reserved. This information is not intended as a substitute for professional medical care. Always follow your healthcare professional's instructions. ?? Patient Care team information Care Team Personnel Name: Unique Dubon RN Position: [facility] RN Member Role: Primary Care Nurse Name: Maximo Morfin MD Position: [facility] Outreach Member Role: PCP Address: Address: [address] [place] [address]- Name: Kadi Oliver RN Position: [facility] AMB Nurse Member Role: Primary Care Nurse Name: Mary Roberson RN Position: [facility] RN Member Role: Primary Care Nurse Name: Daniel Rodriguez RN Position: [facility] RN Member Role: Primary Care Nurse Name: Liz Sweet RN Position: [facility] RN Member Role: Primary Care Nurse Name: Dev De León RN Position: [facility] RN Member Role: Primary Care Nurse Name: Alexa Mitchell LPN Position: [facility] RN Member Role: Primary Care Nurse Name: Mary Acreo RN Position: [facility] RN Member Role: Primary Care Nurse Name: Toyin Contreras RN Position: [facility] Onco RN Member Role: Primary Care Nurse Name: Tierra Juan RN Position: [facility] SN RN Member Role: Primary Care Nurse Name: Veena Arthur RN Position: [facility] RN Member Role: Primary Care Nurse Name: Ashlyn Kenney Position: [facility] AMB [place] Member Role: Primary Care Nurse Name: Velia Shepherd RN Position: [facility] RN Member Role: Primary Care Nurse Name: Shelby Boothe RN Position: [facility] PCO w/OE and EZ Script Member Role: Primary Care Nurse Name: Francoise Whaley RN Position: [facility] Hospital Manifold Operator Member Role: Primary Care Nurse Name: Elizabeth Chung RN Position: [facility] RN Member Role: Primary Care Nurse Name: Rebecca Garcia RN Position: [facility] ED RN W/OE and Tasks Member Role: Patient Care Provider Name: Yoav Buckner MD Position: [facility] Resident Member Role: Admitting Physician Address: Address: [address] [place] [address] [place] [address] [place] Care Team Related Persons Name: OPAL AMBRIZ Address: home [address] [place] [address] Name: QUAN LOMBARDO Address: home [address] [place] [address] Name: AMOS LOMBARDO Address: [place] [address]
--- OUTSIDE RECORDS SUMMARY | 2023-05-03 21:45 | XMS_ITS | Continuity of Care Document ---
Author Name Unknown Organization [facility] ter Address [address] [place] [address]- Care Team Providers Care Digital Producer Name Role Phone Maximo Morfin MD Primary Care Physician Encounter [facility] [place] Date(s): 08/18/21 - 08/18/[address] [address]- Discharge Disposition: A-D/C Walkout Attending Physician: Not on Staff, Attending MD Admitting Physician: Not on Staff, Admitting MD Referring Physician: Not on Staff, Referring MD Allergies, Adverse Reactions, Alerts Substance Reaction Severity Status Bee Stings Active Immunizations Given and Recorded Vaccine Date Status Refusal Reason tetanus/diphtheria/pertussis, acel(Tdap) 09/30/13 Given pneumococcal 23-valent vaccine 02/26/11 Given Diphth-Tetanus Toxoids Adsorbed(oldterm) 05/17/06 Given Medications folic acid 1 mg oral tablet 1 mg, 1, tablet, By Mouth, Daily, # 30 tablet, Refills 0, Tot. Refills 0, Maintenance, 10/15/20 10:30:00 EDT, Route to Pharmacy Electronically, [facility], Partial fill upon patient request if the prescription is for a schedule II opioid... Start Date: 10/15/20 Status: Ordered lisinopril 2.5 mg oral tablet 1 tablet = 2.5 mg, By Mouth, Daily, 0 Refills, Maintenance, 09/30/13 0:17:20 Start Date: 09/30/13 Status: Ordered multivitamin Multiple Vitamins oral tablet 1 tablet, By Mouth, Daily, # 30 tablet, 0 Refills, Maintenance, 10/15/20 10:30:00 EDT, Tablet, [facility], Partial fill upon patient request if the prescription is for a schedule II opioid drug., 1 tablet By Mouth Daily, 180, cm, 04/06/2... Start Date: 10/15/20 Status: Ordered omeprazole 20 mg oral enteric coated capsule TAKE ONE CAPSULE BY MOUTH EVERY DAY BEFORE BREAKFAST. Start Date: 10/15/20 Status: Ordered Problem List Condition Effective Dates Status Health Status Inform ant Aortic aneurysm(Confirmed) 1 Active Cardiomyopathy - EF 40% on 01/19(Confirmed) 02/03/11 Active Cellulitis(Confirmed) 09/04/08 Active Closed Fracture of Lumbar Ve rtebra without Mention of Spinal Cord Injury(Confirmed) 05/26/12 Active Esophageal reflux (GERD)(Confirmed) 02/03/11 Active Fracture of ribs, multiple(Confirmed) Active GERD - Gastro-esophageal ref lux disease(Confirmed) Active Right hip pain(Confirmed) Active Hypertension(Confirmed) Active Right knee pain(Confirmed) Active Low back pain - failed back syndrome(Confirmed) Active Pulmonary embolism(Confirmed) 2 Active 1aortic arc aneurysm Vital Signs Most recent to oldest [Reference Range]: 1 Oxygen Saturation [94-100 %] 98 % (08/18/21 4:44 AM) Pulse Rate [55-90 bpm] 84 bpm (08/18/21 4:44 AM) Blood Pressure [90-138/55-84 mm Hg] 164/ 98mm Hg *H* (08/18/21 4:44 AM) Respiratory Rate [16-30 br/min] 16 br/mi n (08/18/21 4:44 AM) Temperature [96.8-100.4 DegF] 97.9 DegF (08/18/21 4:44 AM) Mode of Delivery (Oxygen) Room air (08/18/21 4:44 AM) Blood pressure sites Arm, right (08/18/21 4:44 AM) Temperature Route Oral (08/18/21 4:44 AM) Social History Social History Type Response Smoking Status Current every day aj adams; Type: Cigarettes; Other: 6 cigarettes per day; entered on: 09/27/15 Sex
--- OUTSIDE RECORDS SUMMARY | 2023-05-03 21:45 | XMS_ITS | Continuity of Care Document ---
Author Name Unknown Organization [facility] ter Address [address] [place] [address]- Care Team Providers Care Hearing Impaired Teacher Name Role Phone Maximo Morfin MD Primary Care Physician [phone] Encounter [facility] [place] Date(s): 01/05/23 - 02/04/[address] [address] Attending Physician: Not on Staff, Attending MD [...] influenza virus vaccine, inactivated 04/27/16 Marcos rded [id number] 12y+ bivalent booster vax 05/15/22 Recorded SARS-CoV-2 mRNA ([id number]) vax 11/19/21 Recorded tetanus/diphtheria/pertussis, acel(Tdap) 08/05/21 Recorded [...] TIMES DAILY Start Date: 10/30/22 Status: Ordered apixaban Starter Pack 5 mg oral tablet 2 tablet = 10 mg, By Mouth, 2 times a day, followed by 1 tablet by mouth twice daily for 23 days, #74 tablet, 0 Refills, Maintenance, 11/03/22 9:55:00 EDT, [facility], Partial fill upon patient request [...] 12/21/22 14:06:00 EDT, Route to Pharmacy Electronically, [facility], Partial fill upon patient request [...] 0 Refills, Maintenance, 01/05/23 9:31:00 EDT, Tablet, [facility], Partial fill upon patient request [...] 0 Refills, Maintenance, 10/15/20 10:30:00 EDT, Tablet, [facility], Partial fill upon patient request [...] 01/05/23 9:00:00 EDT, Route to Pharmacy Electronically, [facility], Partial fill upon patient request if theprescription is for a schedule II opioid drug., 180... Start Date: 01/05/23 Status: Ordered Senna 8.6 mg oral tablet 8.6 mg, 1, tablet, By Mouth, Daily at bedtime, # 30 tablet, Refills 0, Tot. Refills 0, Maintenance,01/05/23 8:59:00 EDT, Route to Pharmacy Electronically, [facility], Partial fill uponpatient request if [...] embolism 2 Confirmed Active 1aortic arc aneurysm Social History Social History Type Response Smoking Status Current every day sm oker; Type: Cigarettes; Other: 6 cigarettes per day; entered on: 09/27/15 Sex Patient Care team information Care Team Personnel Name: Unique Dubon RN Position: [facility] RN Member Role: Primary Care Nurse Name: Maximo Morfin MD Position: [facility] Outreach Member Role: PCP Address: Address: [address] [place] [address] Name: Kadi Oliver RN Position: [facility] AMB Nurse Member Role: Primary Care Nurse Name: Mary Roberson RN Position: [facility] SN RN Member Role: Primary Care Nurse Name: Daniel Rodriguez RN Position: [facility] RN Member Role: Primary Care Nurse Name: Liz Sweet RN Position: [facility] RN Member Role: Primary Care Nurse Name: Dev De León RN Position: [facility] RN Member Role: Primary Care Nurse Name: Alexa Mitchell LPN Position: [facility] RN Member Role: Primary Care Nurse Name: Mary Arceo RN Position: [facility] RN Member Role: Primary Care Nurse Name: Toyin Contreras RN Position: [facility] Onco RN Member Role: Primary Care Nurse Name: Tierra Juan RN Position: [facility] SN RN Member Role: Primary Care Nurse Name: Veena Arthur RN Position: [facility] RN Member Role: Primary Care Nurse Name: Ashlyn Kenney Position: [facility] AMB [place] Member Role: Primary Care Nurse Name: Velia Shepherd RN Position: [facility] RN Member Role: Primary Care Nurse Name: Shelby Boothe RN Position: [facility] PCO w/OE and EZ Script Member Role: Primary Care Nurse Name: Francoise Whaley RN Position: [facility] Hospital Vibrator Equipment Tester Member Role: Primary Care Nurse Name: Elizabeth Chung RN Position: [facility] RN Member Role: Primary Care Nurse Care Team Related Persons Name: OPAL AMBRIZ Address: home [address] [address] Name: QUAN LOMBARDO Address: home [address] [place] [address] Name: AMOS LOMBARDO Address: [place] [address]
--- OUTSIDE RECORDS SUMMARY | 2023-05-03 21:45 | XMS_ITS | Continuity of Care Document ---
Author Name Unknown Organization [facility] ter Address [address] [place] [id number] Care Team Providers Care Independent Living Instructor Name Role Phone Navjot BELTRÁN, Maximo Primary Care Physician Encounter [facility] [place] Date(s): 03/09/23 - 03/13/[address] [id number] Encounter Diagnosis Alcohol intoxication(Final) - 03/08/23 Hypokalemia(Final) - 03/08/23 Hyponatremia(Final) - 03/08/23 Discharge Disposition: A-D/C Home Attending Physician: Javan Dias DO Admitting Physician: Baltazar Quintanilla MD Referring Physician: Not on Staff, Referring MD Allergies, Adverse Reactions, Alerts Substance Reaction Severity Status Bee Stings Active Immunizations Given and Recorded Vaccine Date Status Refusal Reason influenza virus vaccine, inactivated 05/15/22 Marcos rded influenza virus vaccine, inactivated 04/15/22 Marcos rded influenza virus vaccine, inactivated 09/10/21 Marcos rded influenza virus vaccine, inactivated 05/10/17 Marcos rded influenza virus vaccine, inactivated 04/27/16 Marcos rded [id number] 12y+ bivalent booster vax 05/15/22 Recorded SARS-CoV-2 mRNA ([id number]-[id number]) vax 11/19/21 Recorded tetanus/diphtheria/pertussis, acel(Tdap) 08/05/21 Recorded tetanus/diphtheria/pertussis, acel(Tdap) 05/10/17 Recorded tetanus/diphtheria/pertussis, acel(Tdap) 09/30/13 Given SARS-CoV-2 (COVID-19) mRNA BNT-162b2 vac 06/19/21 Recorded zoster vaccine, inactivated 06/17/21 Recorded SARS-CoV-2 (COVID-19) Ad26 vaccine 10/22/20 Record ed pneumococcal 23-valent vaccine 04/17/15 Recorded pneumococcal 23-valent vaccine 02/26/11 Given tetanus-diphtheria toxoids (Td) 02/15/09 Recorded Diphth-Tetanus Toxoids Adsorbed(oldterm) 05/17/06 Given Medications apixaban = 5 mg, By Mouth, 2 times a day, 0 Refills, Maintenance, 03/12/23 12:55:00 EDT, Tablet, Partial fill upon patient request if the prescription is for a schedule II opioid drug. Start Date: 03/12/23 Status: Ordered busPIRone 5 mg oral tablet 5 mg, By Mouth, 2 times a day, Refills 0, Maintenance, 03/12/23 12:55:00 EDT, Partial fill upon patient request if the prescription is for a schedule II opioid drug. Start Date: 03/12/23 Status: Ordered Docusate/Senna Tablet 1 tablet, By Mouth, 2 times a day, PRN Constipation, 0 Refills, Maintenance, 03/12/23 12:59:00 EDT,Tablet, Partial fill upon patient request if the prescription is for a schedule II opioid drug. Start Date: 03/12/23 Status: Ordered folic acid 1 mg oral tablet 1 mg, By Mouth, Daily, Refills 0, Maintenance, 03/12/23 12:55:00 EDT, Partial fill upon patient request if the prescription is for a schedule II opioid drug. Start Date: 03/12/23 Status: Ordered gabapentin 300 mg oral capsule 600 mg, By Mouth, 3 times a day, Refills 0, Maintenance, 03/12/23 12:55:00 EDT, Partial fill upon patient request if the prescription is for a schedule II opioid drug. Start Date: 03/12/23 Status: Ordered gabapentin 300 mg oral capsule 600 mg, Capsule, By Mouth, 03/13/23 15:00:00 EDT Start Date: 03/13/23 Stop Date: 03/13/23 Status: Completed lisinopril 10 mg oral tablet 10 mg, By Mouth, Daily, Refills 0, Maintenance, 03/12/23 12:55:00 EDT, Partial fill upon patient request if the prescription is for a schedule II opioid drug. Start Date: 03/12/23 Status: Ordered lisinopril 10 mg oral tablet 10 mg, Tablet, By Mouth, 03/13/23 9:00:00 EDT Start Date: 03/13/23 Stop Date: 03/13/23 Status: Completed melatonin 3 mg oral tablet = 6 mg, By Mouth, Daily at bedtime, PRN Sleep, 0 Refills, Maintenance, 03/12/23 12:55:00 EDT, Tablet, Partial fill upon patient request if the prescription is for a schedule II opioid drug. Start Date: 03/12/23 Status: Ordered Multivit Therapeutic/Minerals Tablet 1 tablet, By Mouth, Daily, 0 Refills, Maintenance, 03/12/23 12:58:00 EDT, Tablet, Partial fill uponpatient request if the prescription is for a schedule II opioid drug. Start Date: 03/12/23 Status: Ordered Nicotine = 21 mg, Topically, Daily, 0 Refills, Maintenance, 03/12/23 12:58:00 EDT, Patch, Partial fill upon patient request if the prescription is for a schedule II opioid drug. Start Date: 03/12/23 Status: Ordered ondansetron 4 mg oral tablet, disintegrating = 4 mg, By Mouth, Every 6 hours, PRN Nausea & Vomiting, 0 Refills, Maintenance, 03/12/23 12:58:00 EDT, Tablet, Partial fill upon patient request if the prescription is for a schedule II opioid drug. Start Date: 03/12/23 Status: Ordered pantoprazole 40 mg oral delayed release tablet 1 tablet = 40 mg, By Mouth, 2 times a day, # 60 tablet, 2 Refills, Maintenance, 11/08/22 8:23:00 EDT, EC Tablet, 180, cm, 11/08/22 7:43:00 EDT, Height, 74.6, kg, 11/05/22 16:16:00 EDT, Dry Weight Start Date: 11/08/22 Status: Ordered Pyridoxine Tablet 50 mg, By Mouth, Daily, Refills 0, Maintenance, 03/12/23 12:58:00 EDT, Partial fill upon patient request if the prescription is for a schedule II opioid drug. Start Date: 03/12/23 Status: Ordered Problem List Condition Confirmation Course [...] Confirmed Active Pulmonary embolism 2 Confirmed Active Pulmonary embolus Confirmed Active 1aortic arc aneurysm Vital Signs Most recent to oldest [Reference Range]: 1 2 3 Height 180 cm (03/13/23 2:49 PM) 180 cm (03/13/23 11:26 AM) 180 cm (03/13/23 8:09 AM) Weight 61.8 kg (03/10/23 12:04 PM) Oxygen Saturation [94-100 %] 100 % (03/13/23 2:49 PM) 100 % (03/13/23 11: AM) 100 % (03/13/23 8:09 AM) Pulse Rate [55-90 bpm] 79 bpm (03/13/23 2:49 PM) 77 bpm (03/13/23: AM) 65 bpm (03/13/23 8:09 AM) Body Mass Index [18.5-24.99 kg/m2] 19.07 kg/m2 (03/10/23 12:04 PM) Blood Pressure [90-138/55-84 mm Hg] 104/58mm Hg (03/13/23 2:49 PM) 105/65mm Hg (03/13/23 11: AM) 127/68mm Hg (03/13/23 9:02 AM) Respiratory Rate [16-30 br/min] 18 br/min (03/13/23 2:49 PM) 16 br/min (03/13/23 1:52 PM) 16 br/min (03/13/23 11: AM) Temperature [96.8-100.4 DegF] 98.4 DegF (03/13/23 2:49 PM) 98.7 DegF (03/13/23 11: AM) 97.8 DegF (03/13/23 8:09 AM) Mode of Delivery (Oxygen) Room air (03/13/23 2:49 PM) Room air (03/13/23 11:26 AM) Room air (03/13/23 8:09 AM) Blood pressure sites Arm, left (03/13/23 2:49 PM) Arm, left (03/13/23 11:26 AM) Arm, left (03/13/23 8:09 AM) Temperature Route Oral (03/13/23 2:49 PM) Oral (03/13/23 11:26 AM) Oral (03/13/23 8:09 AM) Dry Weight 61.8 kg (03/10/23 12:04 PM) Social History Social History Type Response Smoking Status Current every day sm oker; Type: Cigarettes; Other: 6 cigarettes per day; entered on: 09/27/15 Sex Admission evaluation note * Elizabeth Holt MD: PERFORM Event Display: Admission Note Authored Date: [id number] Patient: ??MELISSA PORTER ? Age:??57 Years?Sex:??Male?:??1965?? Chief Complaint/Reason for Consultation Alcohol intoxication and suicial ideation History of Present Illness 57 year old male with pertinent history of alcohol and tobacco use disorder, recurrent pulmonary embolism non-adherent to eliquis, erosive esophagitis was found my EMS sleeping on a park bench with afriend reporting that he drank he drank a pint of vodka stating that he did not want to live anymore. ?? History was obtained from the patient who is under custody with technology sales specialist at bedside. ?? Patient reports that he drinks 1 pint of vodka every other day for the last 15 years. He has presented to ER multiple times for alcohol intoxication and withdrawal. His last drink was 03/08 in the afternoon. He reports heartburn, not associated with nausea/vomiting, hematemesis. Does not report melena, hematochezia, dizziness. ?? During my encounter, he does not report suicidal ideation. ?? He reports tobacco usage and smokes 6 cigarretes per day for the last 15 years, 9PPD. Does not report cocaine, marijuana or other recreational drug use. ?? Family history significant for stomach cancer in father. ?? Pertinent past medical history: reports taking only pantoprazole and occasionally tums. Chronic back pain was on duloxetine and gabapentin (non-adherent), recurrent pulmonary embolism 5mgBID eliquis (non-adherent), GI bleed secondary to erosive esophagitis (11/06/22), hypertension on lisinopril (non-adherent) ?? ER Course Patient was found to be hypotensive to the 80's on presentation and was given 2L LR bolus. He denied suicidal ideation. He was hypokalemic and hypomagnesemic and was repleted accordingly. As he is under police custody for multiple outstanding warrants with high risk of alcohol withdrawal in [facility]ci, he is being admitted for further evaluation and management Review of Systems All other systems were reviewed and are negative except for the ones mentioned above. Objective ? Vital Signs?? Temperature: 98.3 DegF (03/09/23:28:00) Temperature Route: Oral (03/09/23:28:00) Pulse Rate: 77 bpm (03/09/23:28:00) Respiratory Rate: 18 br/min (03/09/23:28:00) Systolic Blood Pressure:??139 mm Hg??High (03/09/23:28:00) Diastolic Blood Pressure: 84 mm Hg (03/09/23:28:00) Blood pressure sites: Arm, right (03/09/23:28:00) Mean Arterial Pressure: 102 mm Hg (03/09/23:28:00) Pulse Pressure: 55 mm Hg (03/09/23:28:00) Oxygen Saturation: 97 % (03/09/23:28:00) Mode of Delivery (Oxygen): Room air (03/09/23:28:00) Early Warning Score: 0 (03/09/23:29:37) ? Physical Exam Vitals:?? No Vitals found for last 24 hours 03/09/2023 01:29?Temperature ?98.3 DegF 03/09/2023 01:29?Temperature Route ?Oral ? 03/09/2023 01:29?Pulse Rate ?77 bpm ? 03/09/2023 01:29?Respiratory Rate ?18 br/min ? 03/09/2023 01:29?Systolic Blood Pressure ?139 mm Hg ? 03/09/2023 01:29?Diastolic Blood Pressure ?84 mm Hg ? 03/09/2023 01:29?Blood pressure sites ?Arm, right ? 03/09/2023 01:29?Mean Arterial Pressure ?102 mm Hg ? 03/09/2023 01:29?Pulse Pressure ?55 mm Hg ? 03/09/2023 01:29?Oxygen Saturation ?97 % ? 03/09/2023 01:29?Mode of Delivery (Oxygen) ?Room air ? General:??Alert, in no acute cardiopulmonary distress. Appears clinically hypovolemic Mental Status:??Oriented to person, place and time. Normal affect. Respiratory:??Clear to auscultation. No wheezing, rales or rhonchi. Cardiovascular:??Regular rate and rhythm, no murmurs, rubs or gallops. No lower extremity edema. Gastrointestinal:??Abdomen soft, non-tender, non-distended. Normal bowel sounds. Neurologic:??No focal neurological deficits Skin:??No rashes or lesions. Musculoskeletal:??No gross deformities, normal range of motion Assessment/Plan 57 year old male with pertinent history of alcohol use disorder, recurrent PE with multiple ER admissions for alcohol intoxication presented heavily intoxicated with suicidal ideation admitted for management of alcohol withdrawal. ?? Alcohol use disorder Last drink 03/08 in the afternoon. On examination he was not yet scoring on CiWA. ?? Plan: -CIWA with ativan -Resume gabapentin 600mg TID -Start Folic acid 1mg daily -Start Thuamine 500mg IV Daily for 3 days, then start oral -Start Mealtonin 6mg daily HS -Follow up on potassium and Mag, replete accordingly ?? GERD in the setting of erosive esopahitis Reports severe heartburn. ?? Plan: -Maalox PRN -Continue protonix 40mg daily ? Chronic stable medical conditions Recurrent PE: We will resume eliquis 5mg BID, plan to after school counselor on compliance Tobacco use disorder: Nicotine patch, smoking cessation counseling ?? Discharge Planning:??Plan for addiction medicine?Quality Measures VTE Px: On eliquis Diet: regular diet Code Status: DNR/DNI ( reviewed with patient) HCP: brother Med Rec: done with patient Disposition: comes from home, has warrant to be arrested ?? Plan and care discussed with attending Dr Rocha ?? Elizabeth Crain PGY-2 Internal Medicine Resident Histories Past Medical History/Problem List Active Problems??(14) Aortic aneurysm Cardiomyopathy - EF 40% on 01/19 Cellulitis Closed Fracture of Lumbar Vertebra without Mention of Spinal Cord Injury Esophageal reflux (GERD) Fracture of ribs, multiple GERD - Gastro-esophageal reflux disease Hand fracture, left Hypertension Low back pain - failed back syndrome Pulmonary embolism Pulmonary embolus Right hip pain Right knee pain ? Past Surgical History Excision, tumor, soft tissue of face or scalp, subcutaneous; less than 2 cm: 08/23/13 OnQ pump placement: 04/26/12 Laminectomy: 05/18/88 Left wrist Hip Ribs, multiple fractures Right knee ? Social History Alcohol Details:??Use: Current. ??Frequency: 3-5 times per week. ??Type: Vodka. Substance Abuse Details:??Type: crack. Details:??Use: Past. ??Type: Prescription medications, opiates. Tobacco Details:??Current every day smoker, Other: 6 cigarettes per day. ??Type: Cigarettes. ? Family History Father: Hypertension, Stomach Cancer ? Medications Home Medications Pantoprazole (pantoprazole 40 mg oral delayed release tablet)?1?tab(s)?40?Milligram?By Mouth?2 times a day ? Inpatient Medications Medications (19) Active SCHEDULED: (8) Apixaban 5 mg Tablet (Apixaban Tablet) ??5 mg, By Mouth, 2 times a day Folic Acid 1 mg Tablet (Folic Acid Tablet) ??1 mg, By Mouth, Daily Gabapentin 300 mg Capsule (gabapentin 300 mg oral capsule) ??600 mg, By Mouth, 3 times a day Melatonin 3 mg Tablet (Melatonin Tablet) ??6 mg, By Mouth, Daily at bedtime Multivitamin Tablet ??1 tablet, By Mouth, Daily NaCl 0.9% Flush 3ml (NaCL 0.9% Flush) ??3 mL, IV Push, Every 8 hours Pyridoxine 50 mg Tablet (Pyridoxine Tablet) ??50 mg, By Mouth, Daily Thiamine 100 mg Inj (Thiamine Inj) ??500 mg 5 mL, IV Push Slowly, Daily CONTINUOUS: (0) PRN: (11) Acetaminophen 325 mg Tablet (Acetaminophen Tablet) ??650 mg, By Mouth, Every 4 hours Al hydroxide/Mg hydroxide/simethicone 200 mg-200 mg-20 mg/5 mL Susp UD (Maalox Plus Liquid) ??15 mL, By Mouth, 4 times a day Dextromethorphan-Guaifenesin 20 mg-200 mg/10 mL Liqu UD [...] Tablet) ??4 mg, By Mouth, Every hour NaCl 0.9% Flush 3ml (NaCL 0.9% Flush) [...] a day ? Results Recent Labs BLOOD COUNT & DIFF WBC 10.7 k/mm3 ()?? 03/08/2023 13:57 RBC 4.07 m/mm3 (Low)?? 03/08/2023 13:57 Hgb 9.2 Gm/dL (Low)?? 03/08/2023 13:57 Hct 30.2 % (Low)?? 03/08/2023 13:57 MCV 74.2 femtoliters (Low)?? 03/08/2023 13:57 MCH 22.6 pg (Low)?? 03/08/2023 13:57 MCHC 30.5 g/dL (Low)?? 03/08/2023 13:57 Platelet Count 379 k/mm3 ()?? 03/08/2023 13:57 RDW-SD 45.5 femtoliters ()?? 03/08/2023 13:57 MPV 9.2 femtoliters (Low)?? 03/08/2023 13:57 Nucleated RBC (Automated) 0.0 #/100 WBC'S ()?? 03/08/2023 13:57 Abs. NRBC 0.0 k/mm3 ()?? 03/08/2023 13:57 Abs. Neut 7.0 k/mm3 ()?? 03/08/2023 13:57 Abs. Lymph 2.4 k/mm3 ()?? 03/08/2023 13:57 Abs. Caldwell 1.1 k/mm3 ()?? 03/08/2023 13:57 Abs. Eo 0.1 k/mm3 ()?? 03/08/2023 13:57 Abs. Baso 0.1 k/mm3 ()?? 03/08/2023 13:57 Neut % 65.6 % ()?? 03/08/2023 13:57 Lymph % 22.3 % ()?? 03/08/2023 13:57 Caldwell % 10.1 % ()?? 03/08/2023 13:57 Eos % 0.7 % ()?? 03/08/2023 13:57 Baso % 0.7 % ()?? 03/08/2023 13:57 Hemoglobin (POC) POC Cartridge 10.9 Gm/dL (Low)?? 03/08/2023 12:50 Hematocrit (POC) POC Cartridge 32 % (Low)?? 03/08/2023 12:50 Imm Gran 0.6 % ()?? 03/08/2023 13:57 Abs. Imm Gran 0.1 k/mm3 ()?? 03/08/2023 13:57 ?? BLOOD GAS pH Venous (POC) POC Cartridge 7.51 (High)?? 03/08/2023 12:50 pCO2 Venous (POC) POC Cartridge 41.8 mm Hg ()?? 03/08/2023 12:50 pO2 Venous (POC) POC Cartridge 18 mm Hg (Low)?? 03/08/2023 12:50 Est Bicarbonate (POC) POC Cartridge 33.0 mmol/L (High)?? 03/08/2023 12:50 % O2 Sat Venous (POC) POC Cartridge 32 ()?? 03/08/2023 12:50 Base Excess (POC) POC Cartridge 10 ()?? 03/08/2023 12:50 Specimen Type - Blood Gas VENOUS ()?? 03/08/2023 12:50 ?? CHEM GENERAL Sodium 136 mmol/L ()?? 03/08/2023 16:25 Potassium 3.0 mmol/L (Low)?? 03/08/2023 16:25 Chloride 92 mmol/L (Low)?? 03/08/2023 16:25 Bicarbonate Level 29 mmol/L ()?? 03/08/2023 16:25 Anion Gap 15 ()?? 03/08/2023 16:25 Sodium (POC) POC Cartridge 126 mmol/L (Low)?? 03/08/2023 12:50 Potassium (POC) POC Cartridge 2.9 mmol/L (Critical)?? 03/08/2023 12:50 Glucose Level 82 mg/dL ()?? 03/08/2023 16:25 Glucose (POC) POC Cartridge 104 (High)?? 03/08/2023 12:50 Glucose, POC 99 mg/dL ()?? 03/08/2023 12:49 BUN 9 mg/dL ()?? 03/08/2023 16:25 Creatinine-Blood 0.8 mg/dL ()?? 03/08/2023 16:25 Estimated GFR Creatinine 104 ML/MIN/1.73 M2 ()?? 03/08/2023 16:25 Calcium 8.6 mg/dL ()?? 03/08/2023 16:25 Ionized Calcium (POC) POC Cartridge 0.96 mmol/L (Critical)?? 03/08/2023 12:50 Protein, Total 5.8 Gm/dL (Low)?? 03/08/2023 13:57 Albumin 3.5 Gm/dL ()?? 03/08/2023 13:57 AG Ratio 1.5 ()?? 03/08/2023 13:57 Alkaline Phosphatase 82 units/L ()?? 03/08/2023 13:57 AST (SGOT) 12 units/L ()?? 03/08/2023 13:57 ALT (SGPT) 6 units/L ()?? 03/08/2023 13:57 Bilirubin, Total 0.2 mg/dL ()?? 03/08/2023 13:57 ?? TOXICOLOGY/TDM Ethanol, Serum or Plasma 340 mg/dL (Abnormal)?? 03/08/2023 13:57 Salicylate Level <0.3 mg/dL (Low)?? 03/08/2023 13:57 Acetaminophen Level <5 mg/L (Low)?? 03/08/2023 13:57 ?? VIROLOGY COVID-19 by RT-PCR NEGATIVE ()?? 03/09/2023 01:05 ? * Evelio Rocha MD: PERFORM Event Display: Admission Note Authored Date: [id number] ??Attending Attestation: I have discussed the case and its management with the resident and agree with the findings and shira documented in the resident's note.?? I?? will continue to provide care to this patient till 7 AMof the admitting date.?? 57-year-old male with a past medical history of GERD, hypertension, pulmonary embolism, systolic congestive heart failure came with a complaint of alcohol intoxication with aconcern of alcohol withdrawal.?? During my examination patient was complaining of some heartburn, indigestion.?? History of recent excessive alcohol intake.?? We will continue with the CIWA score, thiamine, folic acid and Ativan as per the CIWA score.?? Lab work-up showed low potassium that had been replaced. EKG study * Event Display: ECG 12-Lead Authored Date: [id number] Please click on pdf link to open report * Event Display: ECG 12-Lead Authored Date: [id number] Ventricular Rate: 73 BPM Atrial Rate: 73 BPM P-R Interval: 148 ms QRS Duration: 88 ms Q-T Interval: 408 ms QTC Calculation(Bazett): 449 ms P Meacham: 47 degrees R Meacham: 7 degrees T Meacham: 36 degrees Normal sinus rhythm Normal ECG When compared with ECG of 08-MAR-2023 12:50, No significant change was found Confirmed by JAVAN ANNA ([id number]) on 03/11/2023 7:16:54 AM [place]: JAVAN ANNA * Event Display: ECG 12-Lead Authored Date: [id number] Please click on pdf link to open report * Event Display: ECG 12-Lead Authored Date: [id number] Ventricular Rate: 65 BPM Atrial Rate: 65 BPM P-R Interval: 164 ms QRS Duration: 102 ms Q-T Interval: 450 ms QTC Calculation(Bazett): 468 ms P Meacham: 38 degrees R Meacham: 17 degrees T Meacham: 57 degrees Normal sinus rhythm Cannot rule out Anterior infarct , age undetermined Abnormal ECG When compared with ECG of 18-JAN-2023 17:09, Vent. rate has decreased BY 33 BPM Confirmed by JORGE ALBERTO BELTRÁN [facility] ([id number]) on 03/08/2023 4:21:43 PM [place]: [facility] Progress [facility] * Corinne Fernández RN: VERIFY, PERFORM, SIGN Event Display: Progress [facility] Authored Date: [id number] Patient: MELISSA PORTER Age: 57 years Sex: Male : 1965 Associated Diagnoses: None Author: Corinne Fernández RN Findings Problem Related to Alteration in Psychosocial : Alteration in Psychosocial Function/new 03/12/2023 18:00 EDT Alteration in Psychosocial Related to Substance abuse Goals & Outcomes, Psychosocial Psychosocial support will be provided to Pt/S.O. as needed, Pt will identify stressors leading up to event, Pt will state importance of adhering to medication regime, Pt/caregiver will express feelings/needs/fears /concerns Interventions, Psychosocial Assess psychosocial needs, Assess readiness [...] Provide verbal limits if pt's behavior escalates . Nursing Data Vital Signs : VITAL SIGNS SECTION 03/12/2023 15:00 EDT Pulse Rate 75 bpm Respiratory Rate 18 br/min Respiratory Rate Not Done: Patient Refused (Not Done) Systolic Blood Pressure 129 mm Hg Diastolic Blood Pressure 75 mm Hg Blood pressure sites Arm, left Oxygen Saturation 100 % Mode of Delivery (Oxygen) Room air 03/12/2023 12:03 EDT Early Warning Score 1.00 03/12/2023 12:03 EDT Temperature 98.2 DegF Temperature Route Oral Pulse Rate 72 bpm Respiratory Rate 18 br/min Systolic Blood Pressure 116 mm Hg Diastolic Blood Pressure 63 mm Hg Blood pressure sites Arm, left Mean Arterial Pressure 81 mm Hg Pulse Pressure 53 mm Hg Oxygen Saturation 100 % Mode of Delivery (Oxygen) Room air 03/12/2023 8:15 EDT Temperature 98.7 DegF Temperature Route Oral Pulse Rate 80 bpm Respiratory Rate 16 br/min Systolic Blood Pressure 114 mm Hg Diastolic Blood Pressure 66 mm Hg Blood pressure sites Arm, left Mean Arterial Pressure 82 mm Hg Pulse Pressure 48 mm Hg Oxygen Saturation 100 % Mode of Delivery (Oxygen) Room air . Evaluation Pt A&Ox4, VSS, afrebile. On tele running NSR. LS clear on room air. Pt ambulates independently w/ ocean lifeguard specialist, continent x2. Pt reported anxiety and nausea this shift, appeared to be vomiting chewed up food. One time order 1mg IV ativan given per MD Vasquez. Pt reported not feeling well enough nikolay discharged today because of vomiting. Prn IV zofran given. Pt has been asking for multiple snacks , ate 100% of dinner. No c/o pain. Pt resting in bed, call light in place. See CIS for full assessment. . * Pedro CORRALES, Marlene: PERFORM Event Display: Progress Note Hospital Authored Date: Patient: ??MELISSA PORTER ? Age:??57 Years?Sex:??Male?:??1965?? Patient Information Discharge Location: W4 Primary Care Physician: Navjot BELTRÁN , [facility] Admit Date/Time: 03/09/23 01:09 Discharge Disposition Discharge Disposition: Police custody?? Discharge Diagnosis Alcohol intoxication (F10.929) Hypokalemia (E87.6) Hyponatremia (E87.1) Severe alcohol use disorder (F10.20) Tobacco use disorder (F17.200) _ Discharge Medications apixaban?5?Milligram?By Mouth?2 times a day BusPIRone (busPIRone 5 mg oral tablet)?5?Milligram?By Mouth?2 times a day Docusate-Senna (Docusate/Senna Tablet)?1?tab(s)?By Mouth?2 times a day?as needed?Constipation Folic Acid (folic acid 1 mg oral tablet)?1?Milligram?By Mouth?Daily Gabapentin (gabapentin 300 mg oral capsule)?600?Milligram?By Mouth?3 times a day Lisinopril (lisinopril 10 mg oral tablet)?10?Milligram?By Mouth?Daily Melatonin (melatonin 3 mg oral tablet)?6?Milligram?By Mouth?Daily at bedtime?as needed?Sleep Multivitamin With Minerals (Multivit Therapeutic/Minerals Tablet)?1?tab(s)?By Mouth?Daily Nicotine?21?Milligram?Topically?Daily Ondansetron (ondansetron 4 mg oral tablet, disintegrating)?4?Milligram?By Mouth?Every 6hours?as needed?Nausea & Vomiting Pantoprazole (pantoprazole 40 mg oral delayed release tablet)?1?tab(s)?40?Milligram?By Mouth?2 times a day Pyridoxine (Pyridoxine Tablet)?50?Milligram?By Mouth?Daily ? Quality Measures Tobacco Use Treatment:?Cessation Medication Prescribed on Discharge:??Active Home Med for Cessation Medication ? Medications Started BusPIRone (busPIRone 5 mg oral tablet)?5?Milligram?By Mouth?2 times a day Folic Acid (folic acid 1 mg oral tablet)?1?Milligram?By Mouth?Daily Multivitamin With Minerals (Multivit Therapeutic/Minerals Tablet)?1?tab(s)?By Mouth?Daily Ondansetron (ondansetron 4 mg oral tablet, disintegrating)?4?Milligram?By Mouth?Every 6hours?as needed?Nausea & Vomiting Pyridoxine (Pyridoxine Tablet)?50?Milligram?By Mouth?Daily Medications Discontinued None Hospital Course Mr. Melissa Porter is a 57-year-old male with a history of alcohol use disorder, GERD, HTN, PE, and alcoholic cardiomyopathy who presented via EMS. According to ED documentation, the patient denied suicidal or homicidal ideation and stated he made those statements without thinking. Lab work was significant for Na 130, K 3.3, Cl 85, H/H 9.2/30.2, Mag 1.8, Phos 2.1, EtOH 340. He was given 2 L boluses of LR and his K and Mag were repleted. Unfortunately, it appears Mr. Porter has outstanding warrants and was thus placed in police custody. Admitted for further monitoring of alcohol withdrawal.??He??had an addiction medicine consult yesterday 03/10 and declined their resources at that time. CIWAwas discontinued??on Day 5 of observation. Patient has been hemodynamically stable, and is now clinically stable for discharge.? Alcohol use disorder Acute alcohol intoxication Concern for alcohol withdrawal ??Patient reported made a statement of self harm and then consumed a pint of vodka ??EtOH level 340 upon arrival. Initially he was unresponsive but gradually became more alert ??He had??a formal addiction??medicine consult yesterday 03/10 and it appears he became quite??agitated during their discussion and declined their recommendations and resources?Endorses??intermittent nausea/vomiting??and anxiety as below. Denies tremors,??sweats, agitation,tactile/auditory/visual hallucinations, headache. AAOx4. ??Observed for withdrawal symptoms for at least 96 hours. Has been hemodynamically stable. ?? Recommendations: ??-??Continue multivitamin, pyridoxine, folic acid daily ??-??Evaluated by addiction medicine, patient declines resources at this time ?? Anxiety Nausea/vomiting?Patient expressed significant anxiety about??his outstanding warrants. He also reports??intermittent nausea??whenever he feels nervous.??Also could??be related to withdrawal, however patient has been monitored for at least 4 days, and has been hemodynamically stable. ??Patient was open to starting on a medication to help with anxiety, and received one dose of buspirone 5mg on??03/12.?Patient also received IV Ativan 1mg x1 on 03/12. ?? Recommendations: ??- Continue buspirone 5mg twice a day?- Zofran as needed for nausea/vomiting ?Electrolyte abnormality (hyponatremia, hypokalemia) -??improved ??Initial workup workup revealed Na 130, K 3.3 and Mag at 1.8 ??He was given 2L LR boluses??03/08 ?? Recommendations: ??- Encourage oral hydration and eating ?? Alcoholic cardiomyopathy ??Chest pain ??Echo from 2010 revealed an EF of 40-45% ??Most recent echo from 11/01/22 showed an EF of 55-60% ??Initial EKG does not show any evidence of acute ischemia. ?? Reported substance use ??Per EMS documents, patient snorted something before drinking a pint of vodka prior to arrival. ??Chart search shows prior opiate overdose and cocaine use. ??UDS 03/10 was positive for buprenorphine and fentanyl ??Patient denied any??Suboxone??or fentanyl use to addiction medicine PA and does not have any prescriptions for??Suboxone ??Evaluated by addiction medicine team. Discussed about possible resources outpatient, but patient denied substance use repeatedly. Patient did not exhibit withdrawal symptoms and has been hemodynamically stable since admission. Patient has been monitored??for at least 4 days. ? Chronic problems: History of recurrent PE: Continue Eliquis 5mg BID?? History of erosive esophagitis: Continue Pantoprazole Chronic back pain: Continue Gabapentin 600mg three times per day ?? Quality Measures ??DVT prophylaxis: Currently on Eliquis for history of PE ??Diet: Regular diet ??Code Status: DNR/DNI Objective Measurements?? Height: 180 cm (03/12/23) Weight: 61.8 kg (03/10/23) Dry Weight: 61.8 kg (03/10/23) Body Mass Index: 19.07 kg/m2 (03/10/23) ? Vital Signs?? Temperature: 98.2 DegF (03/12/23 12:03:00) Temperature Route: Oral (03/12/23 12:03:00) Pulse Rate: 72 bpm (03/12/23 12:03:00) Respiratory Rate: 18 br/min (03/12/23 12:03:00) Systolic Blood Pressure: 116 mm Hg (03/12/23 12:03:00) Diastolic Blood Pressure: 63 mm Hg (03/12/23 12:03:00) Blood pressure sites: Arm, left (03/12/23 12:03:00) Mean Arterial Pressure: 81 mm Hg (03/12/23 12:03:00) Pulse Pressure: 53 mm Hg (03/12/23 12:03:00) Oxygen Saturation: 100 % (03/12/23 12:03:00) Mode of Delivery (Oxygen): Room air (03/12/23 12:03:00) Early Warning Score: 1 (03/12/23 12:03:44) . Physical Exam Constitutional: Alert and oriented, initially resting in no acute distress Mental Status: Oriented to person, place and time. Head: Normocephalic Eyes: PERRL, EOMI Ear, Nose and Throat: Oropharynx clear, mucous membranes moist. Trachea midline. Neck: Supple, Full range of motion. Respiratory: Clear to auscultation. No obvious adventitious breath sounds Cardiovascular: S1 S2 regular, not tachycardic. No obvious murmurs, rubs or gallops. Gastrointestinal: Abdomen soft, nontender, nondistended. Neurologic: Cranial nerves II-XII grossly intact. No focal neurological deficits. Sensation intact bilaterally. Skin: No rashes or lesions. No petechiae or purpura.?? Musculoskeletal: No cyanosis or clubbing. No gross deformities. Psychiatric:??Mildly anxious, requesting Ativan Consultants Mary Lou Solano??- Addiction Medicine Pending Results No Pending Results Patient Education Titles Alcohol Abuse?? Follow-Up Appointments Added Follow Up ?Time Frame ?Comments Maximo Morfin MD?1-2 day: call to discuss follow up visit Patient Instructions DIAGNOSIS: You were seen??in the hospital??for alcohol intoxication, and for close monitoring of withdrawal symptoms. You were monitored for at least??4 days, and now safe for discharge. You were also found to have low potassium (an electrolyte in your blood), which improved with repletion. ?? Your specific PATIENT CARE INSTRUCTIONS (what to do / when to return): Make sure to drink plenty of water and stay hydrated. ?? Please schedule an appointment with your primary care physician. ?? Return to the Emergency Department if you experience: - chest pain - shortness of breath - lightheadedness - feeling faint - nausea or vomiting - any other concerning symptoms. ?? MEDICATIONS (what medications you should start (or stop) taking): Continue buspirone 5mg twice a day for anxiety. Can continue Zofran??4mg as needed for nausea/vomiting.? Please continue folic acid, pyridoxine, multivitamin. Please continue your other home medications as specified. Results Discharge Labs BLOOD COUNT & DIFF WBC 8.1 k/mm3 ()?? 03/12/2023 08:08 RBC 4.03 m/mm3 (Low)?? 03/12/2023 08:08 Hgb 9.0 Gm/dL (Low)?? 03/12/2023 08:08 Hct 30.0 % (Low)?? 03/12/2023 08:08 MCV 74.4 femtoliters (Low)?? 03/12/2023 08:08 MCH 22.3 pg (Low)?? 03/12/2023 08:08 MCHC 30.0 g/dL (Low)?? 03/12/2023 08:08 Platelet Count 438 k/mm3 ()?? 03/12/2023 08:08 RDW-SD 45.7 femtoliters ()?? 03/12/2023 08:08 MPV 9.0 femtoliters (Low)?? 03/12/2023 08:08 Nucleated RBC (Automated) 0.0 #/100 WBC'S ()?? 03/12/2023 08:08 Abs. NRBC 0.0 k/mm3 ()?? 03/12/2023 08:08 Abs. Neut 7.0 k/mm3 ()?? 03/08/2023 13:57 Abs. Lymph 2.4 k/mm3 ()?? 03/08/2023 13:57 Abs. Caldwell 1.1 k/mm3 ()?? 03/08/2023 13:57 Abs. Eo 0.1 k/mm3 ()?? 03/08/2023 13:57 Abs. Baso 0.1 k/mm3 ()?? 03/08/2023 13:57 Neut % 65.6 % ()?? 03/08/2023 13:57 Lymph % 22.3 % ()?? 03/08/2023 13:57 Caldwell % 10.1 % ()?? 03/08/2023 13:57 Eos % 0.7 % ()?? 03/08/2023 13:57 Baso % 0.7 % ()?? 03/08/2023 13:57 Hemoglobin (POC) POC Cartridge 10.2 Gm/dL (Low)?? 03/08/2023 21:43 Hematocrit (POC) POC Cartridge 30 % (Low)?? 03/08/2023 21:43 Imm Gran 0.6 % ()?? 03/08/2023 13:57 Abs. Imm Gran 0.1 k/mm3 ()?? 03/08/2023 13:57 ?? BLOOD GAS pH Venous (POC) POC Cartridge 7.51 (High)?? 03/08/2023 12:50 pCO2 Venous (POC) POC Cartridge 41.8 mm Hg ()?? 03/08/2023 12:50 pO2 Venous (POC) POC Cartridge 18 mm Hg (Low)?? 03/08/2023 12:50 Est Bicarbonate (POC) POC Cartridge 33.0 mmol/L (High)?? 03/08/2023 12:50 % O2 Sat Venous (POC) POC Cartridge 32 ()?? 03/08/2023 12:50 Base Excess (POC) POC Cartridge 10 ()?? 03/08/2023 12:50 Specimen Type - Blood Gas VENOUS ()?? 03/08/2023 12:50 ? CHEM GENERAL Sodium 131 mmol/L (Low)?? 03/12/2023 05:43 Potassium 4.5 mmol/L ()?? 03/12/2023 05:43 Chloride 98 mmol/L ()?? 03/12/2023 05:43 Bicarbonate Level 18 mmol/L (Low)?? 03/12/2023 05:43 Anion Gap 15 ()?? 03/12/2023 05:43 Sodium (POC) POC Cartridge 134 mmol/L ()?? 03/08/2023 21:43 Potassium (POC) POC Cartridge 3.4 mmol/L (Low)?? 03/08/2023 21:43 Chloride (POC) POC Cartridge 91 mmol/L (Low)?? 03/08/2023 21:43 Glucose Level 92 mg/dL ()?? 03/11/2023 00:50 Glucose (POC) POC Cartridge 100 (High)?? 03/08/2023 21:43 Glucose, POC 99 mg/dL ()?? 03/08/2023 12:49 BUN 18 mg/dL ()?? 03/12/2023 05:43 BUN (POC) POC Cartridge 11 mg/dL ()?? 03/08/2023 21:43 Creatinine-Blood 0.9 mg/dL ()?? 03/12/2023 05:43 Creatinine (POC) POC Cartridge 0.9 mg/dL ()?? 03/08/2023 21:43 Estimated GFR Creatinine 99 ML/MIN/1.73 M2 ()?? 03/12/2023 05:43 Calcium 8.6 mg/dL ()?? 03/11/2023 00:50 Ionized Calcium (POC) POC Cartridge 1.01 mmol/L (Critical)?? 03/08/2023 21:43 Phosphorus 2.3 mg/dL (Low)?? 03/10/2023 06:50 Magnesium 1.8 mg/dL ()?? 03/10/2023 06:50 Protein, Total 5.6 Gm/dL (Low)?? 03/10/2023 06:50 Albumin 3.4 Gm/dL ()?? 03/10/2023 06:50 AG Ratio 1.5 ()?? 03/10/2023 06:50 Alkaline Phosphatase 64 units/L ()?? 03/10/2023 06:50 AST (SGOT) 18 units/L ()?? 03/12/2023 05:43 ALT (SGPT) 8 units/L ()?? 03/12/2023 05:43 Bilirubin, Total 0.2 mg/dL ()?? 03/12/2023 05:43 ? TOXICOLOGY/TDM Ethanol, Serum or Plasma 340 mg/dL (Abnormal)?? 03/08/2023 13:57 Salicylate Level <0.3 mg/dL (Low)?? 03/08/2023 13:57 Barbiturate Screen, Urine NONE DETECTED ()?? 03/09/2023 20:10 Cannabinoid Screen, Urine NONE DETECTED ()?? 03/09/2023 20:10 Cocaine Metabolite Screen, Urine NONE DETECTED ()?? 03/09/2023 20:10 Methadone Screen, Urine NONE DETECTED ()?? 03/09/2023 20:10 Benzodiazepine Screen, Urine NONE DETECTED ()?? 03/09/2023 20:10 Amphetamine Screen, Urine NONE DETECTED ()?? 03/09/2023 20:10 Opiate Screen, Urine NONE DETECTED ()?? 03/09/2023 20:10 PCP Screen, Urine NONE DETECTED ()?? 03/09/2023 20:10 Oxycodone Screen, Urine NONE DETECTED ()?? 03/09/2023 20:10 Acetaminophen Level <5 mg/L (Low)?? 03/08/2023 13:57 Buprenorphine, Urine Random POSITIVE (Abnormal)?? 03/09/2023 20:10 Fentanyl Screen, Urine Result POSITIVE (Abnormal)?? 03/09/2023 20:10 ?? URINE OTHER Est Creatinine Clearance 78.20 mL/min ()?? 03/11/2023 02:44 ? VIROLOGY COVID-19 by RT-PCR NEGATIVE ()?? 03/09/2023 01:05 ? Microbiology ?? COVID-19 (Novel Coronavirus), Rapid PCR?? Completed?? Source: Nasal Body Site: Nose Collected Dt/Tm: 03/08/2023 23:30 Last Updated Dt/Tm: 03/09/2023 01:58 ? Marlene Vasquez, DO Med-Peds PGY-2 Pager [phone] or [employer] ?? This patient was seen and discussed with attending physician Dr. Sow. 30??minutes spent on discharge * Juanjose BELTRÁN, Ernie Ambriz: PERFORM Event Display: Progress Note Hospital Authored Date: Attending Attestation:??I have seen and evaluated this patient. ??I have discussed the case and itsmanagement with the resident and agree with the findings and plan as documented in the resident???snote. This patient was seen on 03/12/23 by me at 1425. This note reflects information of which I was aware up until 1700 on 03/12/23. ?? From an RODERICK standpoint, he has been doing fairly well. lowering CIWA scores and he is 4-5 days in.? He has still required 6 mg of lorazepam in the last 24 hours but likely due to anxiety mostly,. ?? He did not feel well enough for d/c today. At first, we thought he really could go but eventually, given some ongoing N/V , we decided to keephim at least one more day,. ?? Will keep treating anxiety as best we can. We've added buspar as well. Try to minimize the BZs and ok to continue antiemetics as needed. ?? It is important to point out that he has not been forthcoming with any details of his possible OUD and CUD or maybe even other drugs. He could be having a lingering withdrawal state from one of those drug classes potentially as well. ?? on exam: he was sleeping. guard present. awakens easily. no distress not much of any tremor at all. does not appear anxious at that time. ?? vss afeb. T 98, HR 80, RR 16, BP 114/66, 100% sat on RA. ?? labs reviewed:?? WBC ok. H/H low but acceptable platelets ok low sodium and renal ok ?? A/P--Alcohol intox, resolved. RODERICK mostly resolved. Still?? with some N/V. STill with much anxiety from a chronic anxiety disorder it seems. ?? Will start buspar, continue but try to minimize prn lorazepam. treat n/V. watch po intake, f/u labs?? on 03/13 possible d/c on 03/13 [facility]. If he changes his mind about getting help for AUD, possible OUD and CUD or other use disorders, he'll have to let his providers know. He had no interest at this time. ?? Please see above for the rest of the details of our assessments and plans. ?? * Corinne Fernández RN: VERIFY, PERFORM, SIGN Event Display: Progress Note Hospital Authored Date: [id number] Patient: MELISSA PORTER Age: 57 years Sex: Male : 1965 Associated Diagnoses: None Author: Corinne Fernández RN Findings Problem Related to Alteration in Psychosocial : Alteration in Psychosocial Function/new 03/11/2023 17:00 EDT Alteration in Psychosocial Related to Substance abuse Goals & Outcomes, Psychosocial Psychosocial support will be provided to Pt/S.O. as needed, Pt will identify stressors leading up to event, Pt will state importance of adhering to medication regime, Pt/caregiver will express feelings/needs/fears /concerns Interventions, Psychosocial Assess psychosocial needs, Assess readiness [...] Provide verbal limits if pt's behavior escalates . Nursing Data Vital Signs : VITAL SIGNS SECTION 03/11/2023 16:00 EDT Temperature 98.5 DegF Temperature Route Oral Pulse Rate 80 bpm Respiratory Rate 18 br/min Systolic Blood Pressure 108 mm Hg Diastolic Blood Pressure 65 mm Hg Blood pressure sites Arm, right Pulse Pressure 43 mm Hg Oxygen Saturation 100 % Mode of Delivery (Oxygen) Room air 03/11/2023 12:10 EDT Systolic Blood Pressure 132 mm Hg Diastolic Blood Pressure 81 mm Hg 03/11/2023 12:00 EDT Temperature 98.3 DegF Temperature Route Oral Pulse Rate 70 bpm Respiratory Rate 18 br/min Mode of Delivery (Oxygen) Room air . Evaluation Pt A&Ox4, VSS, afrebile. On tele running NSR. LS clear on room air, no c/o SOB. Pt ambulates independently with ocean lifeguard specialist, continent x2. Pt reports intermittent nausea, moderate headache, and anxiety. Scoring 9 on CIWA scale, q2 1mg ativan given per CIWA protocol. Pt resting in bed, call light in place. See [facility]IS for full assessment. . Consult note * Mary Lou Solano: PERFORM Event Display: Consultation Note Authored Date: [id number] Patient: ??MELISSA PORTER ? Age:??57 Years?Sex:??Male?:??1965?? Reason for Consultation Addiction Med Consult - substance use d/o Requested by??Dr Trent Finnegan History of Present Illness Melissa Porter is a 57 yo male with a PMHx of alcohol and tobacco use, erosive esophagitis, recurrentPE non-adherent with eliquis. He was admitted 03/09 for ETOH withdrawal and SI. Apparently was found sleeping on a park bench after drinking 1 pint of vodka, and endorsed he did not want to live. Pt is currently in police custody for multiple warrants. Due to risk of [facility]H withdrawal in the [facility], he was admitted for mgmt. Pt was started on a CIWA with PRN ativan available, which he has not received yet. Of note, tox screen positive for buprenorphine and fentanyl. Per [facility], pt does not have any recent scripts containing any buprenorphine medications. ?? Met with pt this morning while he was in the ED. Two police officers at bedside. Pt reporting he has been in custody for the last 2 days and does not know why. He is not sure how long he will be in custody either. He states he has been drinking alcohol 'most days,' but is not able to report any typical amount. He does tend to stick to vodka however. Pt has had withdrawal seizures in the past. His longest sober time from ETOH is 'a few years,' but unclear when this might have been. He does not attribute that sober time to any particular interventions. Pt does not report any particular stressors going on that could be driving his ETOH use lately. Conversation was going fine up to this point, until pt was asked about any interest in medication for ETOH cravings. At this point, pt became more harsh and irritable - 'I'm not going to change for you or for anyone! When attempting to after school counselor pt regarding ETOH use, 'I'm 57 years old! I know all of this stuff already, who cares!' Pt adamantly denied use of any recreational opioids, or any suboxone lately. He did not admit to any other substance use aside from cigarettes, 5-6 per day. Interview was ultimately concluded due to pts irritability and lack of interest in interventions. Review of Systems Reporting nausea, headache. Physical Exam Vitals & Measurements T:??98.1?F?? HR:??76??(Peripheral)?? RR:??16?? BP:??148/88?? SpO2:??100%?? WT:??61.8??kg?? General:??well developed, well nourished,??appears to be stated age.??Breathing is??even and unlabored.??In no acute distress,??no diaphoresis. Mental Status Exam: Appearance:??casual?? Attitude:??irritable, hostile? Eye contact:??normal Motor activity:??calm, no aberrant movements? Mood:??upset? Affect:??congruent? Speech:??fluent, unimpaired? Judgment:??appears intact? Insight:??impaired? Thought process:??linear? Reliability:??uncertain? Fund of knowledge:??intact Assessment/Plan Severe alcohol use disorder (F10.20):??. Pt irritable and not wanting to have any type of in depth conversation regarding his substance use.Did remind him that the addiction service is not here to 'change him' or anyone else, and that we are available to help pts get connected with interventions, should someone be ready for that. Pt is??apparently??not ready at this time. ?? Pt declined MAT and since he is incarcerated with an unclear release timeline, referrals would be of limited benefit. Attempted to after school counselor pt regarding risks, but he began to raise??his??voice and shooed me away. ?? Continue with CIWA scoring and PRN ativan. Would recommend to d/c CIWA score after 5 days of hospitalization (less sensitive after this point). If withdrawal escalates and it does not seem that ativan is properly addressing symptoms, can try scheduling diazepam 5-10mg PO or IV TID, tapering as tolerated. If hallucinations or occasional agitation??develops, can try haldol 2.5 IV or PO BID PRN or 1mg TIDPRN. Please note that haldol can lower the seizure threshold a bit. Seroquel is another option, butonly available PO. If persistent??agitation is a concern, can try some scheduled depakote 500mg IV BID and taper as tolerated.? Tobacco use disorder (F17.200):??. ??Pt is aware of the possible consequences that intermission coordinator tobacco use may have on their health, such as pulmonary and/or cardiac complications. Pt should quit. Can continue with nicotine patch. ?? Sent update via [facility] to Dr Finnegan. Addiction??Service will sign off at this time. Thank you for allowing us to participate in the careof this patient. Please contact me with any questions or concerns. Problem List/Past Medical History Ongoing Aortic aneurysm Cardiomyopathy - EF 40% on 01/19 Cellulitis Closed Fracture of Lumbar Vertebra without Mention of Spinal Cord Injury Esophageal reflux (GERD) Fracture of ribs, multiple GERD - Gastro-esophageal reflux disease Hand fracture, left Hypertension Low back pain - failed back syndrome Pulmonary embolism Pulmonary embolus Right hip pain Right knee pain Medications Inpatient Acetaminophen Tablet, 650 mg, By Mouth, Every 4 hours, PRN Apixaban Tablet, 5 mg, By Mouth, 2 times a day Docusate/Senna Tablet, 1 tablet, By Mouth, 2 times a day, PRN Folic Acid Tablet, 1 mg, By Mouth, Daily gabapentin 300 mg oral capsule, 600 mg, By Mouth, 3 times a day LORazepam Tablet, 1 mg, By Mouth, Every hour, PRN LORazepam Tablet, 2 mg, By Mouth, Every hour, PRN LORazepam Tablet, 3 mg, By Mouth, Every hour, PRN LORazepam Tablet, 4 mg, By Mouth, Every hour, PRN Maalox Plus Liquid, 15 mL, By Mouth, 4 times a day, PRN Melatonin Tablet, 6 mg, By Mouth, Daily at bedtime MiraLax Powder, 17 Gm= 1 pack/packet, By Mouth, Daily, PRN Multivitamin Tablet, 1 tablet, By Mouth, Daily NaCL 0.9% Flush, 3 mL, IV Push, Every 8 hours NaCL 0.9% Flush, 3 mL, IV Push, Every 8 hours, PRN Nicotine Topical, 21 mg, Topically, Daily Protonix 40 mg oral delayed release tablet, 40 mg, By Mouth, Daily before breakfast Pyridoxine Tablet, 50 mg, By Mouth, Daily Remove Patch, 1 each, Topically, Daily Robitussin DM Liquid, 10 mL, By Mouth, Every 4 hours, PRN Simethicone Tablet, 80 mg, Chew, 3 times a day, PRN Thiamine Inj Home pantoprazole 40 mg oral delayed release tablet, 40 mg= 1 tablet, By Mouth, 2 times a day, 2 refills Allergies Bee Stings Social History Alcohol Use: Current. Frequency: 3-5 times per week. Type: Beer. Substance Abuse Type: crack. Tobacco Current every day smoker, Other: 6 cigarettes per day. Type: Cigarettes. Family History Hypertension: Father. Immunizations Vaccine Date Status influenza virus vaccine, inactivated 05/15/2022 Recorded [id number] 12y+ bivalent booster vax 05/15/2022 Recorded influenza virus vaccine, inactivated 04/15/2022 Recorded SARS-CoV-2 mRNA ([id number]) vax 11/19/2021 Recorded influenza virus vaccine, inactivated 09/10/2021 Recorded tetanus/diphtheria/pertussis, acel(Tdap) 08/05/2021 Recorded SARS-CoV-2 (COVID-19) mRNA BNT-162b2 vac 06/19/2021 Recorded zoster vaccine, inactivated 06/17/2021 Recorded SARS-CoV-2 (COVID-19) Ad26 vaccine 10/22/2020 Recorded influenza virus vaccine, inactivated 05/10/2017 Recorded tetanus/diphtheria/pertussis, acel(Tdap) 05/10/2017 Recorded influenza virus vaccine, inactivated 04/27/2016 Recorded pneumococcal 23-valent vaccine 04/17/2015 Recorded tetanus/diphtheria/pertussis, acel(Tdap) 09/30/2013 Given influenza virus vaccine, inactivated - Not Given influenza virus vaccine, inactivated - Not Given influenza virus vaccine, inactivated - Not Given Comments : Patient Refused pneumococcal 23-valent vaccine 02/26/2011 Given pneumococcal 23-valent vaccine - Not Given Comments : Patient Refused tetanus-diphtheria toxoids (Td) 02/15/2009 Recorded Diphth-Tetanus Toxoids Adsorbed(oldterm) 05/17/2006 Given Note * Argelia Jordan RN: PERFORM Event Display: Discharge/Transfer Note Hospital Authored Date: [id number] Nursing Discharge Note Entered On: 03/13/2023 15:33 EDT Performed On: 03/13/2023 15:30 EDT by Argelia Jordan RN Nursing Discharge Note 2 Discharge Time : 03/13/2023 15:30 EDT Discharge Level of Care at Discharge : Correction Fac/Police/[facility] Patient Left Unit Via : Wheelchair Patient Accompanied Off Unit with : Other: Police DC Instructions Provided & Signed by Pt : Yes Patient Understands D/C Instructions : Yes Patient Instructions Discharge Signed : Yes Did Pt have Specialty Bed or Wound Vac : No Argelia Jordan RN - 03/13/2023 15:32 EDT * Marlene Vasquez DO: PERFORM Event Display: Discharge/Transfer Note Hospital Authored Date: [id number] Patient: ??MELISSA PORTER ? Age:??57 Years?Sex:??Male?:??1965?? Patient Information Discharge Location: [facility]4 Primary Care Physician: Navjot BELTRÁN , [facility] Admit Date/Time: 03/09/23 01:09 Discharge Disposition Discharge Disposition: Police custody?? Discharge Diagnosis Alcohol intoxication (F10.929) Hypokalemia (E87.6) Hyponatremia (E87.1) Severe alcohol use disorder (F10.20) Tobacco use disorder (F17.200) _ Discharge Medications apixaban?5?Milligram?By Mouth?2 times a day BusPIRone (busPIRone 5 mg oral tablet)?5?Milligram?By Mouth?2 times a day Docusate-Senna (Docusate/Senna Tablet)?1?tab(s)?By Mouth?2 times a day?as needed?Constipation Folic Acid (folic acid 1 mg oral tablet)?1?Milligram?By Mouth?Daily Gabapentin (gabapentin 300 mg oral capsule)?600?Milligram?By Mouth?3 times a day Lisinopril (lisinopril 10 mg oral tablet)?10?Milligram?By Mouth?Daily Melatonin (melatonin 3 mg oral tablet)?6?Milligram?By Mouth?Daily at bedtime?as needed?Sleep Multivitamin With Minerals (Multivit Therapeutic/Minerals Tablet)?1?tab(s)?By Mouth?Daily Nicotine?21?Milligram?Topically?Daily Ondansetron (ondansetron 4 mg oral tablet, disintegrating)?4?Milligram?By Mouth?Every 6hours?as needed?Nausea & Vomiting Pantoprazole (pantoprazole 40 mg oral delayed release tablet)?1?tab(s)?40?Milligram?By Mouth?2 times a day Pyridoxine (Pyridoxine Tablet)?50?Milligram?By Mouth?Daily ?? Medications Started BusPIRone (busPIRone 5 mg oral tablet)?5?Milligram?By Mouth?2 times a day Folic Acid (folic acid 1 mg oral tablet)?1?Milligram?By Mouth?Daily Multivitamin With Minerals (Multivit Therapeutic/Minerals Tablet)?1?tab(s)?By Mouth?Daily Ondansetron (ondansetron 4 mg oral tablet, disintegrating)?4?Milligram?By Mouth?Every 6hours?as needed?Nausea & Vomiting Pyridoxine (Pyridoxine Tablet)?50?Milligram?By Mouth?Daily Hospital Course Mr. Melissa Porter is a 57-year-old male with a history of alcohol use disorder, GERD, HTN, PE, and alcoholic cardiomyopathy who presented via EMS. According to ED documentation, the patient denied suicidal or homicidal ideation and stated he made those statements without thinking. Lab work was significant for Na 130, K 3.3, Cl 85, H/H 9.2/30.2, Mag 1.8, Phos 2.1, EtOH 340. He was given 2 L boluses of LR and his K and Mag were repleted. Unfortunately, it appears Mr. Porter has outstanding warrants and was thus placed in police custody. Admitted for further monitoring of alcohol withdrawal.??He??had an addiction medicine consult yesterday 03/10 and declined their resources at that time. CIWAwas discontinued??on Day 5 of observation. Patient has been hemodynamically stable, and is now clinically stable for discharge.? Alcohol use disorder Acute alcohol intoxication Concern for alcohol withdrawal ??Patient reported made a statement of self harm and then consumed a pint of vodka ??EtOH level 340 upon arrival. Initially he was unresponsive but gradually became more alert ??He had??a formal addiction??medicine consult yesterday 03/10 and it appears he became quite??agitated during their discussion and declined their recommendations and resources?Endorses??intermittent nausea/vomiting??and anxiety as below. Denies tremors,??sweats, agitation,tactile/auditory/visual hallucinations, headache. AAOx4. ??Observed for withdrawal symptoms for at least 96 hours. Has been hemodynamically stable. ?? Recommendations: ??-??Continue multivitamin, pyridoxine, folic acid daily ??-??Evaluated by addiction medicine, patient declines resources at this time ?? Anxiety Nausea/vomiting?Patient expressed significant anxiety about??his outstanding warrants. He also reports??intermittent nausea??whenever he feels nervous.??Also could??be related to withdrawal, however patient has been monitored for at least 4 days, and has been hemodynamically stable. ??Patient was open to starting on a medication to help with anxiety, and received one dose of buspirone 5mg on??03/12.?Patient also received IV Ativan 1mg x1 on 03/12. ?? Recommendations: ??- Continue buspirone 5mg twice a day?- Zofran as needed for nausea/vomiting ?Electrolyte abnormality (hyponatremia, hypokalemia) -??improved ??Initial workup workup revealed Na 130, K 3.3 and Mag at 1.8 ??He was given 2L LR boluses??03/08 ?? Recommendations: ??- Encourage oral hydration and eating ?? Alcoholic cardiomyopathy ??Chest pain ??Echo from 2010 revealed an EF of 40-45% ??Most recent echo from 11/01/22 showed an EF of 55-60% ??Initial EKG does not show any evidence of acute ischemia. ?? Reported substance use ??Per EMS documents, patient snorted something before drinking a pint of vodka prior to arrival. ??Chart search shows prior opiate overdose and cocaine use. ??UDS 03/10 was positive for buprenorphine and fentanyl ??Patient denied any??Suboxone??or fentanyl use to addiction medicine PA and does not have any prescriptions for??Suboxone ??Evaluated by addiction medicine team. Discussed about possible resources outpatient, but patient denied substance use repeatedly. Patient did not exhibit withdrawal symptoms and has been hemodynamically stable since admission. Patient has been monitored??for at least 4 days. ? Chronic problems: History of recurrent PE: Continue Eliquis 5mg BID?? History of erosive esophagitis: Continue Pantoprazole Chronic back pain: Continue Gabapentin 600mg three times per day ?? Quality Measures ??DVT prophylaxis: Currently on Eliquis for history of PE ??Diet: Regular diet ??Code Status: DNR/DNI Objective Measurements?? Height: 180 cm (03/13/23) Weight: 61.8 kg (03/10/23) Dry Weight: 61.8 kg (03/10/23) Body Mass Index: 19.07 kg/m2 (03/10/23) ? Vital Signs?? Temperature: 98.7 DegF (03/13/23:26:00) Temperature Route: Oral (03/13/23::00) Pulse Rate: 77 bpm (03/13/23::00) Respiratory Rate: 16 br/min (03/13/23 11:26:00) Systolic Blood Pressure: 105 mm Hg (03/13/23 11:26:00) Diastolic Blood Pressure: 65 mm Hg (03/13/23 11:26:00) Blood pressure sites: Arm, left (03/13/23 11:26:00) Mean Arterial Pressure: 78 mm Hg (03/13/23 11:26:00) Pulse Pressure: 40 mm Hg (03/13/23 11:26:00) Oxygen Saturation: 100 % (03/13/23:26:00) Mode of Delivery (Oxygen): Room air (03/13/23 11:26:00) Early Warning Score: 1 (03/13/23 11:26:50) . Physical Exam Constitutional: Alert and oriented, initially resting in no acute distress Mental Status: Oriented to person, place and time. Head: Normocephalic Eyes: PERRL, EOMI Ear, Nose and Throat: Oropharynx clear, mucous membranes moist. Trachea midline. Neck: Supple, Full range of motion. Respiratory: Clear to auscultation. No obvious adventitious breath sounds Cardiovascular: S1 S2 regular, not tachycardic. No obvious murmurs, rubs or gallops. Gastrointestinal: Abdomen soft, nontender, nondistended. Neurologic: Cranial nerves II-XII grossly intact. No focal neurological deficits. Sensation intact bilaterally. Skin: No rashes or lesions. No petechiae or purpura.?? Musculoskeletal: No cyanosis or clubbing. No gross deformities. Psychiatric:??Mildly anxious, requesting Ativan Consultants Melissa THOMAS, Mary Lou Kraus??- Addiction Medicine Pending Results No Pending Results Patient Education Titles Alcohol Abuse?? Follow-Up Appointments Added Follow Up ?Time Frame ?Comments Navjot BELTRÁN , Maximo?1-2 day: call to discuss follow up visit Patient Instructions DIAGNOSIS: You were seen??in the hospital??for alcohol intoxication, and for close monitoring of withdrawal symptoms. You were monitored for at least??4 days, and now safe for discharge. You were also found to have low potassium (an electrolyte in your blood), which improved with repletion. ?? Your specific PATIENT CARE INSTRUCTIONS (what to do / when to return): Make sure to drink plenty of water and stay hydrated. ?? Please schedule an appointment with your primary care physician. ?? Return to the Emergency Department if you experience: - chest pain - shortness of breath - lightheadedness - feeling faint - nausea or vomiting - any other concerning symptoms. ?? MEDICATIONS (what medications you should start (or stop) taking): Continue buspirone 5mg twice a day for anxiety. Can continue Zofran??4mg as needed for nausea/vomiting.? Please continue folic acid, pyridoxine, multivitamin. Please continue your other home medications as specified. Results Discharge Labs BLOOD COUNT & DIFF WBC 11.2 k/mm3 (High)?? 03/13/2023 01:04 RBC 3.96 m/mm3 (Low)?? 03/13/2023 01:04 Hgb 9.0 Gm/dL (Low)?? 03/13/2023 01:04 Hct 29.6 % (Low)?? 03/13/2023 01:04 MCV 74.7 femtoliters (Low)?? 03/13/2023 01:04 MCH 22.7 pg (Low)?? 03/13/2023 01:04 MCHC 30.4 g/dL (Low)?? 03/13/2023 01:04 Platelet Count 473 k/mm3 (High)?? 03/13/2023 01:04 RDW-SD 46.7 femtoliters ()?? 03/13/2023 01:04 MPV 9.2 femtoliters (Low)?? 03/13/2023 01:04 Nucleated RBC (Automated) 0.0 #/100 WBC'S ()?? 03/13/2023 01:04 Abs. NRBC 0.0 k/mm3 ()?? 03/13/2023 01:04 Abs. Neut 7.0 k/mm3 ()?? 03/08/2023 13:57 Abs. Lymph 2.4 k/mm3 ()?? 03/08/2023 13:57 Abs. Caldwell 1.1 k/mm3 ()?? 03/08/2023 13:57 Abs. Eo 0.1 k/mm3 ()?? 03/08/2023 13:57 Abs. Baso 0.1 k/mm3 ()?? 03/08/2023 13:57 Neut % 65.6 % ()?? 03/08/2023 13:57 Lymph % 22.3 % ()?? 03/08/2023 13:57 Caldwell % 10.1 % ()?? 03/08/2023 13:57 Eos % 0.7 % ()?? 03/08/2023 13:57 Baso % 0.7 % ()?? 03/08/2023 13:57 Hemoglobin (POC) POC Cartridge 10.2 Gm/dL (Low)?? 03/08/2023 21:43 Hematocrit (POC) POC Cartridge 30 % (Low)?? 03/08/2023 21:43 Imm Gran 0.6 % ()?? 03/08/2023 13:57 Abs. Imm Gran 0.1 k/mm3 ()?? 03/08/2023 13:57 ?? BLOOD GAS pH Venous (POC) POC Cartridge 7.51 (High)?? 03/08/2023 12:50 pCO2 Venous (POC) POC Cartridge 41.8 mm Hg ()?? 03/08/2023 12:50 pO2 Venous (POC) POC Cartridge 18 mm Hg (Low)?? 03/08/2023 12:50 Est Bicarbonate (POC) POC Cartridge 33.0 mmol/L (High)?? 03/08/2023 12:50 % O2 Sat Venous (POC) POC Cartridge 32 ()?? 03/08/2023 12:50 Base Excess (POC) POC Cartridge 10 ()?? 03/08/2023 12:50 Specimen Type - Blood Gas VENOUS ()?? 03/08/2023 12:50 ? CHEM GENERAL Sodium 133 mmol/L ()?? 03/13/2023 01:04 Potassium 4.9 mmol/L ()?? 03/13/2023 01:04 Chloride 97 mmol/L (Low)?? 03/13/2023 01:04 Bicarbonate Level 25 mmol/L ()?? 03/13/2023 01:04 Anion Gap 11 ()?? 03/13/2023 01:04 Sodium (POC) POC Cartridge 134 mmol/L ()?? 03/08/2023 21:43 Potassium (POC) POC Cartridge 3.4 mmol/L (Low)?? 03/08/2023 21:43 Chloride (POC) POC Cartridge 91 mmol/L (Low)?? 03/08/2023 21:43 Glucose Level 94 mg/dL ()?? 03/13/2023 01:04 Glucose (POC) POC Cartridge 100 (High)?? 03/08/2023 21:43 Glucose, POC 99 mg/dL ()?? 03/08/2023 12:49 BUN 16 mg/dL ()?? 03/13/2023 01:04 BUN (POC) POC Cartridge 11 mg/dL ()?? 03/08/2023 21:43 Creatinine-Blood 0.8 mg/dL ()?? 03/13/2023 01:04 Creatinine (POC) POC Cartridge 0.9 mg/dL ()?? 03/08/2023 21:43 Estimated GFR Creatinine 103 ML/MIN/1.73 M2 ()?? 03/13/2023 01:04 Calcium 8.6 mg/dL ()?? 03/13/2023 01:04 Ionized Calcium (POC) POC Cartridge 1.01 mmol/L (Critical)?? 03/08/2023 21:43 Phosphorus 3.0 mg/dL ()?? 03/13/2023 01:04 Magnesium 1.7 mg/dL ()?? 03/13/2023 01:04 Protein, Total 5.6 Gm/dL (Low)?? 03/10/2023 06:50 Albumin 3.4 Gm/dL ()?? 03/10/2023 06:50 AG Ratio 1.5 ()?? 03/10/2023 06:50 Alkaline Phosphatase 64 units/L ()?? 03/10/2023 06:50 AST (SGOT) 18 units/L ()?? 03/12/2023 05:43 ALT (SGPT) 8 units/L ()?? 03/12/2023 05:43 Bilirubin, Total 0.2 mg/dL ()?? 03/12/2023 05:43 ? TOXICOLOGY/TDM Ethanol, Serum or Plasma 340 mg/dL (Abnormal)?? 03/08/2023 13:57 Salicylate Level <0.3 mg/dL (Low)?? 03/08/2023 13:57 Barbiturate Screen, Urine NONE DETECTED ()?? 03/09/2023 20:10 Cannabinoid Screen, Urine NONE DETECTED ()?? 03/09/2023 20:10 Cocaine Metabolite Screen, Urine NONE DETECTED ()?? 03/09/2023 20:10 Methadone Screen, Urine NONE DETECTED ()?? 03/09/2023 20:10 Benzodiazepine Screen, Urine NONE DETECTED ()?? 03/09/2023 20:10 Amphetamine Screen, Urine NONE DETECTED ()?? 03/09/2023 20:10 Opiate Screen, Urine NONE DETECTED ()?? 03/09/2023 20:10 PCP Screen, Urine NONE DETECTED ()?? 03/09/2023 20:10 Oxycodone Screen, Urine NONE DETECTED ()?? 03/09/2023 20:10 Acetaminophen Level <5 mg/L (Low)?? 03/08/2023 13:57 Buprenorphine, Urine Random POSITIVE (Abnormal)?? 03/09/2023 20:10 Fentanyl Screen, Urine Result POSITIVE (Abnormal)?? 03/09/2023 20:10 ?? URINE OTHER Est Creatinine Clearance 87.98 mL/min ()?? 03/13/2023 02:33 ? VIROLOGY COVID-19 by RT-PCR NEGATIVE ()?? 03/09/2023 01:05 ? Microbiology ?? COVID-19 (Novel Coronavirus), Rapid PCR?? Completed?? Source: Nasal Body Site: Nose Collected Dt/Tm: 03/08/2023 23:30 Last Updated Dt/Tm: 03/09/2023 01:58 ? Marlene Vasquez, DO Med-Peds PGY-2 Pager [phone] or Cortext ?? This patient was seen and discussed with attending physician Dr. Dias. 30??minutes spent on discharge * Julian RN, Argelia: PERFORM Event Display: Patient Education/Instruction Authored Date: [id number] Inpatient Adult Discharge Instructions [address] [address] Name: MELISSA PORTER : 1965 Visit: 03/09/2023 01:09:00 Current Date: 03/13/2023 12:54 Account: [id number] Inpatient Adult Discharge Instructions We would like [...] and their families. Surveys are administered by [employer] ?? If further treatment with your primary care physician or another doctor is recommended, it is important for you to keep the appointment. Call your primary care physician or return to the Emergency Department immediately if your condition worsens, fails to improve, or new symptoms develop. If you need to find a doctor, you can call [facility] for a referral at [phone] or toll free at [phone] or log in to [email or web address].. ?? [facility], in keeping with [facility] guidance, no longer requires face masks for staff, patientsor visitors in most situations. Similiar to time spent indoors at other locations, there is the chance that you were exposed to repiratory viruses during your time with us (such as flu or COVID-19). If you develop symptoms concerning for a viral respiratory infection, please seek testing (and treatment if indicated) from your medical provider or home test kit. ?? You can view and manage your care through the patient portal or by using a health care citlaly of your choosing. [employer] is a website that allows you to securely view your medical information including your hospital discharge summary, office visit summaries, medications and follow-up visits. You can also request appointments, renew medications, and request access to your medical information using a health care citlaly of your choosing, or just ask a question. You can enroll at [email or web address] or register during your next office visit. You have been discharged from [facility], Patient Care Unit: W4. If you have any questions regarding these instructions after you leave, please call us and we will be happy to assist you. [facility] Your Care Team Attending Physician Juanjose BELTRÁN, Ernie Ambriz Discharging Providers Marlene Vasquez DO Reason for Admission Alcohol intoxication and suicial ideation Your Diagnosis Alcohol intoxication Hypokalemia Hyponatremia Severe alcohol use disorder Tobacco use disorder Tests Performed Below is a partial list of the tests performed during your hospitalization. You may have had other tests and procedures not included in this list. Please discuss all test results with your provider. Acetaminophen Level Alcohol Level Amphetamine Urine Screen Aspirin Level Barbiturate Urine Screen BASE EXCESS POC CARTRIDGE Basic Metabolic Panel Benzodiazepine Urine Screen Bilirubin Total BUN BUN POC CARTRIDGE CALCIUM IONIZED POC CART Cannabinoid Urine Screen CBC CBC w/ Differential CHLORIDE POC CARTRIDGE Cocaine Urine Screen Comprehensive Metabolic Panel COVID-19 (Novel Coronavirus), Rapid PCR Creatinine CREATININE POC CARTRIDGE Electrolytes Fentanyl Screen, Urine GLUCOSE POC GLUCOSE POC CARTRIDGE HEMATOCRIT POC CARTRIDGE HEMOGLOBIN POC CARTRIDGE Magnesium Level Methadone Urine Opiate Screen Urine Oxycodone Screen Urine Phosphorus Level POTASSIUM POC CARTRIDGE SGOT SGPT SODIUM POC CARTRIDGE Urine Buprenorphine Urine PCP VBG POC CARTRIDGE Primary Care Provider Navjot BELTRÁN , Maximo Advance Directive Health Care Proxy on File Yes - Health Care Proxy Discharge Vitals Temperature: 98.7 DegF Height: 180 cm Pulse Rate: 77 bpm Weight: 61.8 kg Respiratory Rate: 16 br/min Body Mass Index: 19.07 kg/m2 Systolic Blood Pressure: 105 mm Hg Body surface area: 1.76 Diastolic Blood Pressure: 65 mm Hg ?? Oxygen Saturation: 100 % ?? Studies Pending All tests and labs ordered during this hospital stay have been completed unless listed below. Please discuss all pending results with your provider listed above in these instructions. ?? No incomplete studies found What to do next Instructions From Your Doctor DIAGNOSIS: You were seen??in the hospital??for alcohol intoxication, and for close monitoring of withdrawal symptoms. You were monitored for at least??4 days, and now safe for discharge. You were also found to have low potassium (an electrolyte in your blood), which improved with repletion. ?? Your specific PATIENT CARE INSTRUCTIONS (what to do / when to return): Make sure to drink plenty of water and stay hydrated. ?? Please schedule an appointment with your primary care physician. ?? Return to the Emergency Department if you experience: - chest pain - shortness of breath - lightheadedness - feeling faint - nausea or vomiting - any other concerning symptoms. ?? MEDICATIONS (what medications you should start (or stop) taking): Continue buspirone 5mg twice a day for anxiety. Can continue Zofran??4mg as needed for nausea/vomiting.? Please continue folic acid, pyridoxine, multivitamin. Please continue your other home medications as specified. Discharge Orders You Need to Schedule the Following Appointments Follow Up with??Maximo Morfin MD When:??Within 1-2 day: call to discuss follow up visit Where: [address] [place] [id number]- Discharge Medications MELISSA PORTER :1965 Visit Date:03/09/2023 Medications: Please continue your medications until treatment is completed or stopped by your provider. Medications not listed below should be discontinued. Discuss any questions related to medications with your provider. What How Much When Instructions Next Dose New apixaban 5 Milligram Oral Twice a day tonight New BusPIRone (busPIRone 5 mg oral tablet) 5 Milligram Oral Twice a day tonight New Docusate-Senna (Docusate/ Senna Tablet) 1 tab(s) Oral Twice a day as needed for Constipation as needed New Folic Acid (folic acid 1 mg oral tablet) 1 Milligram Oral Daily tomorrow morning New Gabapentin (gabapentin 300 mg oral capsule) 600 Milligram Oral 3 times a day 9 pm tonight New Lisinopril (lisinopril 10 mg oral tablet) 10 Milligram Oral Daily tomorrow morning New Melatonin (melatonin 3 mg oral tablet) 6 Milligram Oral Daily at Bedtime as needed for Sleep as needed New Multivitamin With Minerals (Multivit Therapeutic/ Minerals Tablet) 1 tab(s) Oral Daily tomorrow morning New Nicotine 21 Milligram Topically Daily tomorrow morning New Ondansetron (ondansetron 4 mg oral tablet, disintegrating) 4 Milligram Oral Every 6 hours as needed for Nausea & Vomiting as needed New Pyridoxine (Pyridoxine Tablet) 50 Milligram Oral Daily tomorrow morning Unchanged Pantoprazole (pantoprazole 40 mg oral delayed release tablet) 1 tab(s) Oral Twice a day tonight Test Results Below is a partial list of the most recent Laboratory test results done prior to this discharge. You may have had other tests and procedures not included in this list. Please discuss all test resultswith your provider. Est Creatinine Clearance - 87.98 mL/min (03/13/2023) Acetaminophen Level (03/08/2023) ? ?Acetaminophen Level - <5 mg/L Alcohol Level (03/08/2023) ???Ethanol, Serum or Plasma - 340 mg/dL Amphetamine Urine Screen (03/09/2023) ???Amphetamine Screen, Urine - NONE DETECTED Aspirin Level (03/08/2023) ? ?Salicylate Level - <0.3 mg/dL Barbiturate Urine Screen (03/09/2023) ???Barbiturate Screen, Urine - NONE DETECTED BASE EXCESS POC CARTRIDGE (03/08/2023) ???Base Excess (POC) POC Cartridge - 10 Basic Metabolic Panel (03/13/2023) ???Sodium - 133 mmol/L???Potassium - 4.9 mmol/L???Chloride - 97 mmol/L???Bicarbonate Level - 25 mmol/L???Anion Gap - 11???Glucose Level - 94 mg/dL???BUN - 16 mg/dL???Creatinine-Blood - 0.8 mg/dL???Estimated GFR Creatinine - 103 ML/MIN/1.73 M2???Calcium - 8.6 mg/dL Benzodiazepine Urine Screen (03/09/2023) ???Benzodiazepine Screen, Urine - NONE DETECTED Bilirubin Total (03/12/2023) ???Bilirubin, Total - 0.2 mg/dL BUN (03/12/2023) ???BUN - 18 mg/dL BUN POC CARTRIDGE (03/08/2023) ???BUN (POC) POC Cartridge - 11 mg/dL CALCIUM IONIZED POC CART (03/08/2023) ???Ionized Calcium (POC) POC Cartridge - 1.01 mmol/L Cannabinoid Urine Screen (03/09/2023) ???Cannabinoid Screen, Urine - NONE DETECTED CBC (03/13/2023) ???WBC - 11.2 k/mm3???RBC - 3.96 m/mm3???Hgb - 9.0 Gm/dL???Hct - 29.6 %???MCV - 74.7 femtoliters???MCH - 22.7 pg???MCHC - 30.4 g/dL???Platelet Count - 473 k/mm3???RDW-SD - 46.7 femtoliters???MPV - 9.2 femtoliters???Nucleated RBC (Automated) - 0.0 #/100 WBC'S???Abs. NRBC - 0.0 k/mm3 CBC w/ Differential (03/08/2023) ???WBC - 10.7 k/mm3???RBC - 4.07 m/mm3???Hgb - 9.2 Gm/dL???Hct - 30.2 %???MCV - 74.2 femtoliters???MCH - 22.6 pg???MCHC - 30.5 g/dL???Platelet Count - 379 k/mm3???RDW-SD - 45.5 femtoliters???MPV - 9.2 femtoliters???Nucleated RBC (Automated) - 0.0 #/100 WBC'S???Abs. NRBC - 0.0 k/mm3???Abs. Neut - 7.0 k/mm3???Abs. Lymph - 2.4 k/mm3???Abs. Caldwell - 1.1 k/mm3???Abs. Eo - 0.1 k/mm3???Abs. Baso - 0.1 k/mm3???Neut % - 65.6 %???Lymph % - 22.3 %???Caldwell % - 10.1 %???Eos % - 0.7 %???Baso % - 0.7 %???Imm Gran - 0.6 %???Abs. Imm Gran - 0.1 k/mm3 CHLORIDE POC CARTRIDGE (03/08/2023) ???Chloride (POC) POC Cartridge - 91 mmol/L Cocaine Urine Screen (03/09/2023) ???Cocaine Metabolite Screen, Urine - NONE DETECTED Comprehensive Metabolic Panel (03/10/2023) ???Sodium - 136 mmol/L???Potassium - 4.7 mmol/L???Chloride - 99 mmol/L???Bicarbonate Level - 27 mmol/L???Anion Gap - 10???Glucose Level - 93 mg/dL???BUN - 13 mg/dL???Creatinine-Blood - 0.8 mg/dL???Estimated GFR Creatinine - 103 ML/MIN/1.73 M2???Calcium - 8.3 mg/dL???Protein, Total - 5.6 Gm/dL???Albu min - 3.4 Gm/dL???AG Ratio - 1.5???Alkaline Phosphatase - 64 units/L???AST (SGOT) - 9 units/L???ALT(SGPT) - 6 units/L???Bilirubin, Total - 0.2 mg/dL COVID-19 (Novel Coronavirus), Rapid PCR (03/09/2023) ???COVID-19 by RT-PCR - NEGATIVE Creatinine (03/12/2023) ???Creatinine-Blood - 0.9 mg/dL???Estimated GFR Creatinine - 99 ML/MIN/1.73 M2 CREATININE POC CARTRIDGE (03/08/2023) ???Creatinine (POC) POC Cartridge - 0.9 mg/dL Electrolytes (03/12/2023) ???Sodium - 131 mmol/L???Potassium - 4.5 mmol/L???Chloride - 98 mmol/L???Bicarbonate Level - 18 mmol/L???Anion Gap - 15 Fentanyl Screen, Urine (03/09/2023) ???Fentanyl Screen, Urine Result - POSITIVE GLUCOSE POC (03/08/2023) ???Glucose, POC - 99 mg/dL GLUCOSE POC CARTRIDGE (03/08/2023) ???Glucose (POC) POC Cartridge - 100 HEMATOCRIT POC CARTRIDGE (03/08/2023) ???Hematocrit (POC) POC Cartridge - 30 % HEMOGLOBIN POC CARTRIDGE (03/08/2023) ???Hemoglobin (POC) POC Cartridge - 10.2 Gm/dL Magnesium Level (03/13/2023) ???Magnesium - 1.7 mg/dL Methadone Urine (03/09/2023) ???Methadone Screen, Urine - NONE DETECTED Opiate Screen Urine (03/09/2023) ???Opiate Screen, Urine - NONE DETECTED Oxycodone Screen Urine (03/09/2023) ???Oxycodone Screen, Urine - NONE DETECTED Phosphorus Level (03/13/2023) ???Phosphorus - 3.0 mg/dL POTASSIUM POC CARTRIDGE (03/08/2023) ???Potassium (POC) POC Cartridge - 3.4 mmol/L SGOT (03/12/2023) ???AST (SGOT) - 18 units/L SGPT (03/12/2023) ???ALT (SGPT) - 8 units/L SODIUM POC CARTRIDGE (03/08/2023) ???Sodium (POC) POC Cartridge - 134 mmol/L Urine Buprenorphine (03/09/2023) ???Buprenorphine, Urine Random - POSITIVE Urine PCP (03/09/2023) ???PCP Screen, Urine - NONE DETECTED VBG POC CARTRIDGE (03/08/2023) ???pH Venous (POC) POC Cartridge - 7.51???pCO2 Venous (POC) POC Cartridge - 41.8 mm Hg???pO2 Venous(POC) POC Cartridge - 18 mm Hg???Est Bicarbonate (POC) POC Cartridge - 33.0 mmol/L???% O2 Sat Venous (POC) POC Cartridge - 32???Specimen Type - Blood Gas - VENOUS Allergies (NKA means No Known Allergies) Bee Stings Problems Active Problems??(16) Alcohol abuse?? Aortic aneurysm?? Cardiomyopathy - EF 40% on 01/19?? Cellulitis?? Closed Fracture of Lumbar Vertebra without Mention of Spinal Cord Injury?? Esophageal reflux (GERD)?? Fracture of ribs, multiple?? GERD - Gastro-esophageal reflux disease?? Hand fracture, left?? Hypertension?? Low back pain - failed back syndrome?? Pulmonary embolism?? Pulmonary embolus?? Right hip pain?? Right knee pain?? Substance abuse - narcotics?? Education Materials Below is the list of Educational Leaflet Providered with your Discharge Instructions. Alcohol Abuse?? Valuables and Belongings I fully understand and agree that [facility] accepts no responsibility for all my personal [...] home. ?? No Valuables/Belongings: No valuables/belongings present Date for Pt to Sign Valuables/Belongings: 03/10/23 12:47:00 ?? Other Discharge Information ? Case Management Discharge Plan?? Discharge Plan?? Discharge Rx Program: Discharge Prescription Program ?? Pulmonary Rehab Status?? Pulmonary Rehab Discharge [...] are strongly encouraged to quit. Please call [facility] [employer] [facility] at [phone] or [phone]) or log in to [email or web address] for referrals to smoking cessation programs. ?? 479 Suicide & Crisis Lifeline is available 01/02 if you or someone you know needs to find a reason to keep living. By calling 038 you'll be connected to a skilled, trained counselor at a crisis center in your area. INPATIENT DISCHARGE INSTRUCTIONS SIGNATURE MELISSA HASSAN Location:[facility] Registration Date and Time:03/09/2023 01:09 EDT Primary Care Physician: Navjot BELTRÁN , Maximo, Attending Physician: Juanjose BELTRÁN, Ernie Ambriz, I MELISSA PORTER, have received the above patient education materials/instructions and have verbalized understanding. If ambulance or transport services are being used I further acknowledge being given a choice of service. ?? If you need to contact me, please call me at this number: . Patient/Software Engineer Sales Name: Patient/Software Engineer Sales Signature: Relationship to Patient: Witness Name/Signature: Date: * Murali Atkinson DO: PERFORM Event Display: Patient Education Leaflets Authored Date: [id number] Alcohol Abuse ?? [id number] Alcohol Abuse Alcoholic drinks harm you when [...] you: ??? Duties at home or with early childhood education worker suffer because of drinking. ??? Duties at [...] problems ??? Seizures These changes may be intermission coordinator (permanent). Heart and blood vessels Alcohol can [...] and Substance Abuse Information Center (NASAIC) at www.addictioncareSoliant [employer] or 993-236-0973 ??? National [place] on Alcoholism and Drug Dependence (NCADD) at www.ncadd.org or 560-BZX-XEBC (374-729-0899) ?? Call 911 Call 911 if any [...] shakiness ?? Last Reviewed Date: 2021 ?? 3934-6859 [employer]. All rights reserved. This information is not intended as a substitute for professional medical care. Always follow your healthcare professional's instructions. ?? Patient Care team information Care Team Personnel Name: Unique Dubon RN Position: [facility] RN Member Role: Primary Care Nurse Name: Maximo Morfin MD Position: [facility] Outreach Member Role: PCP Address: Address: [address] [place] [address] Name: Kadi Oliver RN Position: [facility] AMB Nurse Member Role: Primary Care Nurse Name: Mary Roberson RN Position: [facility] SN RN Member Role: Primary Care Nurse Name: Geraldine Cox RN Position: [facility] RN Member Role: Primary Care Nurse Name: Kami Sanchez RN Position: S RN Member Role: Primary Care Nurse Name: Daniel Rodriguez RN Position: [facility] RN Member Role: Primary Care Nurse Name: Liz Sweet RN Position: [facility] RN Member Role: Primary Care Nurse Name: Dev De León RN Position: S RN Member Role: Primary Care Nurse Name: Alexa Mitchell LPN Position: [facility] RN Member Role: Primary Care Nurse Name: Mary Arceo RN Position: [facility] RN Member Role: Primary Care Nurse Name: Toyin Contreras RN Position: [facility] Onco RN Member Role: Primary Care Nurse Name: Camille Lao RN Position: [facility] RN Member Role: Primary Care Nurse Name: Kun Fisher RN Position: [facility] RN Member Role: Primary Care Nurse Name: Tierra Juan RN Position: [facility] SN RN Member Role: Primary Care Nurse Name: Veena Arthur RN Position: [facility] RN Member Role: Primary Care Nurse Name: Ashlyn Kenney Position: [facility] AMB [place] Member Role: Primary Care Nurse Name: Allegra Yan RN Position: [facility] RN Member Role: Primary Care Nurse Name: Velia Shepherd RN Position: [facility] RN Member Role: Primary Care Nurse Name: Shelby Boothe RN Position: [facility] PCO w/OE and EZ Script Member Role: Primary Care Nurse Name: Francoise Whaley RN Position: [facility] Hospital Satellite Dish Installer Member Role: Primary Care Nurse Name: Elizabeth Chung RN Position: [facility] RN Member Role: Primary Care Nurse Name: [facility] Attending Position: [facility] ED Medicine MD Name: Atilio George Position: [facility] ED TA [facility] Member Role: Lead Java Software Engineer Name: Jaz Patel RN Position: [facility] ED RN W/OE and Tasks Member Role: Patient Care Provider Care Team Related Persons Name: OPAL AMBRIZ Address: home [address] [address] Name: QUAN PORTER Address: [address] [place] [address] Name: AMOS PORTER Address: [place] [address]
--- OUTSIDE RECORDS SUMMARY | 2023-05-03 21:45 | XMS_ITS | Continuity of Care Document ---
Author Name Unknown Organization [facility] Address [address] [place] [id number]- Care Team Providers Care Engineering Tech Name Role Phone Not on Staff, PCP Primary Care Physician Unavail able Encounter [facility] Date(s): 12/17/22 - 12/17/[address] [address]- Discharge Disposition: A-D/C Walkout Attending Physician: Not [...] influenza virus vaccine, inactivated 04/27/16 Marcos rded [id number] 12y+ bivalent booster vax 05/15/22 Recorded SARS-CoV-2 mRNA ([id number]) vax 11/19/21 Recorded tetanus/diphtheria/pertussis, acel(Tdap) 08/05/21 Recorded [...] tablet, 0 Refills, Maintenance, 11/03/22 9:55:00 EDT, [facility], Partial fill upon patient request [...] 0 Refills, Maintenance, 10/15/20 10:30:00 EDT, Tablet, [facility] 3, Partial fill upon patient request [...] recent to oldest [Reference Range]: 1 Height 150 cm (12/17/22 1:23 PM) Oxygen Saturation [94-100 %] 96 % (12/17/22 1:23 PM) Pulse Rate [55-90 bpm] 98 bpm *H* (12/17/22 1:23 PM) Blood Pressure [90-138/55-84 mm Hg] 88/5 8mm Hg *L* (12/17/22 1:23 PM) Temperature [96.8-100.4 DegF] 98.5 DegF (12/17/22 1:23 PM) Mode of Delivery (Oxygen) Room air (12/17/22 1:23 PM) Blood pressure sites Arm, left (12/17/22 1:23 PM) Temperature Route Oral (12/17/22 1:23 PM) Dry Weight 73 kg (12/17/22 1:23 PM) Dry Weight Obtained Via Patient/family s tated (12/17/22 1:23 PM) Social History Social History Type Response Smoking Status Current every day aj okcornelia; Type: Cigarettes; Other: 6 cigarettes per day; entered on: 09/27/15 Sex Patient Care team information Care Team Personnel Name: Unique Dubon RN Position: [facility] RN Member Role: Primary Care Nurse Name: Kadi Oliver RN Position: [facility] Nurse Member Role: Primary Care Nurse Name: Mary Roberson RN Position: [facility] RN Member Role: Primary Care Nurse Name: Daniel Rodriguez RN Position: [facility] RN Member Role: Primary Care Nurse Name: Liz Sweet RN Position: [facility] RN Member Role: Primary Care Nurse Name: Toyin Contreras RN Position: [facility] Onco RN Member Role: Primary Care Nurse Name: Not on Staff, PCP Position: [facility] Physician (General Medicine) Member Role: PCP Name: Tierra Juan RN Position: [facility] SN RN Member Role: Primary Care Nurse Name: Veena Arthur RN Position: [facility] RN Member Role: Primary Care Nurse Name: Toshia Arce RN Position: [facility] RN Member Role: Primary Care Nurse Name: Ashlyn Kenney Position: [facility] AMB [place] Member Role: Primary Care Nurse Name: Velia Shepherd RN Position: [facility] RN Member Role: Primary Care Nurse Name: Shelby Boothe RN Position: [facility] PCO w/OE and EZ Script Member Role: Primary Care Nurse Name: Francoise Whaley RN Position: [facility] Tank Calibrator Member Role: Primary Care Nurse Name: Sheldon HUSSEIN, Elizabeth Position: [facility] RN Member Role: Primary Care Nurse Care Team Related Persons Name: OPAL AMBRIZ Address: [address] [address] Name: QUAN LOMBARDO Name: AMOS [place] [address]
--- OUTSIDE RECORDS SUMMARY | 2023-05-03 21:46 | XMS_ITS | Continuity of Care Document ---
Author Name Unknown Organization [facility] ter Address [address] [place] [id number] Care Team Providers Care Foundry Hand Name Role Phone Navjot BELTRÁN, Maximo Primary Care Phys[id number] Date(s): 10/29/22 - 11/03/[address] [address]- Encounter Diagnosis Esophageal reflux (GERD)(Final) - 10/29/22 Hypertension(Final) - 10/29/22 Low back pain - failed back syndrome(Final) - 10/29/22 Alcohol intoxication(Final) - 10/29/22 Dehydration(Final) - 10/29/22 Discharge Disposition: A-D/C Home Attending Physician: Ernie Sow MD Admitting Physician: Ban Jimenez MD Referring Physician: Not on Staff, Referring MD Allergies, Adverse Reactions, Alerts Substance Reaction Severity Status Bee Stings Active Immunizations Given and Recorded Vaccine Date Status Refusal Reason tetanus/diphtheria/pertussis, acel(Tdap) 09/30/13 Given pneumococcal 23-valent vaccine 02/26/11 Given Diphth-Tetanus Toxoids Adsorbed(oldterm) 05/17/06 Given Medications acamprosate [...] tablet, 0 Refills, Maintenance, 11/03/22 9:55:00 EDT, [facility], Partial fill upon patient [...] oral capsule 300 mg, Capsule, By Mouth, 11/03/22 9:00:00 EDT Start Date: 11/03/22 Stop Date: 11/03/22 Status: Completed gabapentin 300 mg oral capsule [...] 0 Refills, Maintenance, 10/15/20 10:30:00 EDT, Tablet, [facility], Partial fill upon patient request if the prescription is for a schedule II opioid drug., 1 tablet By Mouth Daily, 180, cm, ... Start Date: 10/15/20 Status: Ordered pantoprazole 40 mg oral delayed release tablet 1 tablet = 40 mg, By Mouth, Daily, # 30 tablet, 0 Refills, Maintenance, 08/08/22 3:48:00 EST, EC Tablet Start Date: 08/08/22 Status: Ordered thiamine 100 mg oral tablet [...] Exam Date Time Procedure Performing Provider Status 10/29/22 10:[address] Angio Chest Stupak , Artis; Auth (V erified) Notes: (CT Angio Chest) Reason For Exam: PE suspected, Intermediate prob, positive D-dimer,;Other: RESULT: CT Angio Chest EXAMINATION: CT Angio Chest INDICATION: Shortness of breath, concern for pulmonary embolism. TECHNIQUE: Spiral CTA of the chest was performed after rapid IV contrast administration without cardiac gating, triggered by an JAMES on the main pulmonary artery. Images are formatted in multiple planes using 2-D multiplanar and 3-D maximum intensity projection. 100 cc of Omnipaque 300 was administered intravenously. This study was performed without oral contrast. Weight-based protocol using automatic tube modulation was used to optimize exposure parameters. CTDIvol Body: 7.83 mGy, DLP Body: 404 mGy*cm. COMPARISONS: 08/07/2022. ANGIOGRAPHIC FINDINGS: Multiple acute bilateral segmental and subsegmental pulmonary emboli. No interventricular septal bowing or large reflux of contrast into the IVC, however, the right ventricle appears slightly enlarged and normal when compared with the left. No evidence of right heart strain. Unchanged 2.9 cm rim calcified saccular aneurysm at the level of the ligamentum arteriosum. No aortic dissection or intramural hematoma. NON-ANGIOGRAPHIC FINDINGS: Wall Worker View Findings, Lines and Tubes: None. Trachea and Airways: Patent without evidence of tracheal or endobronchial lesion. Lungs and Pleura: Paraseptal emphysema. Groundglass opacities throughout the bilateral lungs, greatest in the lower regions. No effusion or pneumothorax. Mediastinum and jamison: No mass or hematoma. No mediastinal or hilar lymphadenopathy. Esophagus is extremely concentrically thickened. Partially imaged thyroid is unremarkable. Heart: Mild cardiomegaly. No pericardial effusion. Moderate coronary artery calcification. Chest Wall Soft Tissues: Normal. Diaphragm and upper abdomen: Small hiatal hernia. Bones: Surgical fixation of multiple right-sided rib fractures, seen on prior. Moderate degenerative changes of the spine with mild chronic endplate destruction of T7-T10. IMPRESSION: Multiple bilateral acute pulmonary emboli. The right ventricle appears slightly enlarged when compared with the left which may represent right heart strain. Correlation with EKG, laboratory workup, and clinical symptoms is recommended. Unchanged 2.9 cm rim calcified saccular aortic aneurysm at the level of the ligamentum arteriosum. Bilateral groundglass opacifications in the lungs, which may represent atelectasis and inflammatoryprocess, however, infectious etiology cannot be completely excluded. Thickened esophagus. Consider endoscopy or barium swallow for further evaluation. Results were conveyed by Cortext by Dr. Fay to Kadie Patel MD on 10/29/2022 at 11:34 PM withunderstanding acknowledged. I have personally reviewed the images and I agree with this report. WSN: [id number] Ordering Physician: Kadie Patel Dictated By: Dileep Fay MD Dictated Date/Time: 10/29/22 11:56 p Reviewed By: Yoseph Zuniga MD Signed By: Yoseph Zuniga MD Signed Date/Time: 10/30/22 0:01 am Transcribed By: MARC Transcribed Date/Time: 10/29/22 11:46 pm * Exam Date Time Procedure Performing Provider Status 10/29/22 10:[address] Cervical Spine W/O Contrast Stupak , Artis; Auth (Verified) Notes: (CT Cervical Spine W/O Contrast) Reason For Exam: Neck trauma, dangerous injury mechanism;Other: RESULT: CT Cervical Spine W/O Contrast CT Head/Brain W/O Contrast, CT Cervical Spine W/O Contrast INDICATION: Patient was intoxicated and asked to come to the hospital. TECHNIQUE: Noncontrast head CT using axial technique was reconstructed in axial and coronal planes.Noncontrast spiral CT through the cervical spine was formatted in 3 planes. Automatic tube modulation was used for the cervical spine and iterative dose reconstruction was used for both the head and cervical spine to optimize scan parameters and image quality. CTDIvol Body: 11.60 mGy, DLP Body: 334 mGy*cm. CTDIvol Head: 40.20 mGy, DLP Head: 671 mGy*cm. COMPARISON: 08/07/2022, 08/17/2021. FINDINGS: Wall Worker View Findings, Lines and Tubes: None. BRAIN AND EXTRA-AXIAL SPACES: No parenchymal hemorrhage, midline shift, or mass effect. Gaines-white matter differentiation is wellpreserved. Approximately 1.0 cm partially calcified lesion along the left frontotemporal skull inner table, likely meningioma, unchanged since at least 08/17/2021.. Chronic lacunar infarcts in the right frontal deep white matter and right caudate head, similar to prior. No acute infarct. Negative insular ribbon sign. Atherosclerotic vascular calcification of the carotid arteries but negative hyperdense vessel sign. Mild prominence of the ventricles and sulci consistent with parenchymal volume loss. Mild low-density white matter changes. No subarachnoid hemorrhage. No subdural or epidural collection. CALVARIUM, SKULL BASE, AND SOFT TISSUES: No fractures or suspicious bony lesions. Mild mucosal thickening of the paranasal sinuses. Mastoid air cells are clear. Visualized orbits and globes are intact. The extracranial soft tissues are unremarkable. CERVICAL SPINE: No fracture. No acute osseous abnormalities. Normal alignment. No locked or perched facet. Mild multilevel degenerative disc space narrowing andend plate irregularity. Mild nuchal ligament calcification. OTHER BONES: No acute abnormality. CERVICAL SOFT TISSUES AND LUNG APICES: Normal soft tissues. Visualized lung apices are clear. IMPRESSION: No acute intracranial abnormality. Mild degenerative changes of the cervical spine with no acute fracture or osseous abnormality. 1.0 cm probable partially calcified meningioma in the region of the left frontotemporal lobe, unchanged since at least 08/17/2021. I have personally reviewed the images and I agree with this report. WSN: [id number] Ordering Physician: Kadie Patel Dictated By: Dileep Fay MD Dictated Date/Time: 10/29/22 11:11 p Reviewed By: Yoseph Zuniga MD Signed By: Yoseph Zuniga MD Signed Date/Time: 10/29/22 11:16 pm Transcribed By: MARC Transcribed Date/Time: 10/29/22 11:07 pm * Exam Date Time Procedure Performing Provider Status 10/29/22 10:[address] Head/Brain W/O Contrast Stupak , O leg; Auth (Verified) Notes: (CT Head/Brain W/O Contrast) Reason For Exam: Trauma RESULT: CT Head/Brain W/O Contrast CT Head/Brain W/O Contrast, CT Cervical Spine W/O Contrast INDICATION: Patient was intoxicated and asked to come to the hospital. TECHNIQUE: Noncontrast head CT using axial technique was reconstructed in axial and coronal planes.Noncontrast spiral CT through the cervical spine was formatted in 3 planes. Automatic tube modulation was used for the cervical spine and iterative dose reconstruction was used for both the head and cervical spine to optimize scan parameters and image quality. CTDIvol Body: 11.60 mGy, DLP Body: 334 mGy*cm. CTDIvol Head: 40.20 mGy, DLP Head: 671 mGy*cm. COMPARISON: 08/07/2022, 08/17/2021. FINDINGS: Wall Worker View Findings, Lines and Tubes: None. BRAIN AND EXTRA-AXIAL SPACES: No parenchymal hemorrhage, midline shift, or mass effect. Gaines-white matter differentiation is wellpreserved. Approximately 1.0 cm partially calcified lesion along the left frontotemporal skull inner table, likely meningioma, unchanged since at least 08/17/2021.. Chronic lacunar infarcts in the right frontal deep white matter and right caudate head, similar to prior. No acute infarct. Negative insular ribbon sign. Atherosclerotic vascular calcification of the carotid arteries but negative hyperdense vessel sign. Mild prominence of the ventricles and sulci consistent with parenchymal volume loss. Mild low-density white matter changes. No subarachnoid hemorrhage. No subdural or epidural collection. CALVARIUM, SKULL BASE, AND SOFT TISSUES: No fractures or suspicious bony lesions. Mild mucosal thickening of the paranasal sinuses. Mastoid air cells are clear. Visualized orbits and globes are intact. The extracranial soft tissues are unremarkable. CERVICAL SPINE: No fracture. No acute osseous abnormalities. Normal alignment. No locked or perched facet. Mild multilevel degenerative disc space narrowing andend plate irregularity. Mild nuchal ligament calcification. OTHER BONES: No acute abnormality. CERVICAL SOFT TISSUES AND LUNG APICES: Normal soft tissues. Visualized lung apices are clear. IMPRESSION: No acute intracranial abnormality. Mild degenerative changes of the cervical spine with no acute fracture or osseous abnormality. 1.0 cm probable partially calcified meningioma in the region of the left frontotemporal lobe, unchanged since at least 08/17/2021. I have personally reviewed the images and I agree with this report. WSN: [id number] Ordering Physician: Kadie Patel Dictated By: Dileep Fay MD Dictated Date/Time: 10/29/22 11:11 p Reviewed By: Yoseph Zuniga MD Signed By: Yoseph Zuniga MD Signed Date/Time: 10/29/22 11:16 pm Transcribed By: MARC Transcribed Date/Time: 10/29/22 11:07 pm * Exam Date Time Procedure Performing Provider Status 10/29/22 8:47 PM Chest 2 Views Frontal and Lat Mike Stephens; Auth (Verified) Notes: (Chest 2 Views Frontal and Lat) Reason For Exam: Shortness of Breath, Fever;Other: RESULT: Chest 2 Views Frontal and Lat Chest 2 Views Frontal and Lat Hx of Present Illness: pt states I do not feel well , endorsing etoh, last drink of vodka he states 30 minutes ago; Reason: Other:; Shortness of Breath, Fever; Clinical Question(s): Pneumonia COMPARISON: 03/24/2022 FINDINGS: LINES AND TUBES: None. LUNGS AND PLEURA: Clear lungs. Normal pulmonary vascularity. No pleural effusion. No pneumothorax. HEART, MEDIASTINUM AND JAMISON: Unchanged. BONES AND SOFT TISSUES: No acute abnormality. Instrumentation of right-sided ribs reidentified. Old rib fractures. IMPRESSION: No acute abnormality. WSN: [id number] Ordering Physician: Kadie Patel Dictated By: Yoseph Zuniga MD Dictated Date/Time: 10/29/22 9:00 pm Reviewed By: Yoseph Zuniga MD Signed By: Yoseph Zuniga MD Signed Date/Time: 10/29/22 9:00 pm Transcribed By: MARC Transcribed Date/Time: 10/29/22 9:00 pm Vital Signs Most recent to oldest [Reference Range]: 1 2 3 Height 180 cm (11/03/22 10:27 AM) 180 cm (11/03/22 3:37 AM) 180 cm (11/02/22 11:50 PM) Weight 72.0 kg (10/30/22 11:40 PM) 72 kg (10/30/22 11:08 PM) Oxygen Saturation [94-100 %] 100 % (11/03/22 10:27 AM) 98 % (11/03/22 8:00 AM) 95 % (11/03/22 3:37 AM) Pulse Rate [55-90 bpm] 69 bpm (11/03/22 10:27 AM) 63 bpm (11/03/22 8:00 AM) 49 bpm *L* (11/03/22 3:37 AM) Body Mass Index [18.5-24.99 kg/m2] 22.22 kg/m2 (10/30/22 11:08 PM) Blood Pressure [90-138/55-84 mm Hg] 126/72mm Hg (11/03/22 10:27 AM) 155/83mm Hg *H* (11/03/22 8:00 AM) 140/86mm Hg *H* (11/03/22 3:37 AM) Respiratory Rate [16-30 br/min] 18 br/min (11/03/22 10:27 AM) 18 br/min (11/03/22 9:34 AM) 18 br/min (11/03/22 8:34 AM) Temperature [96.8-100.4 DegF] 97.9 DegF (11/03/22 10:27 AM) 98.4 DegF (11/03/22 8:00 AM) 97.8 DegF (11/03/22 3:37 AM) Mode of Delivery (Oxygen) Room air (11/03/22 10:27 AM) Room air (11/03/22 8:00 AM) Room air (11/03/22 3:37 AM) Blood pressure sites Arm, right (11/03/22 10:27 AM) Arm, left (11/03/22 8:00 AM) Arm, left (11/03/22 3:37 AM) Temperature Route Oral (11/03/22 10:27 AM) Oral (11/03/22 8:00 AM) Oral (11/03/22 3:37 AM) Dry Weight 72 kg (10/30/22 11:08 PM) Social History Social History Type Response Smoking Status Current every day sm oker; Type: Cigarettes; Other: 6 cigarettes per day; entered on: 09/27/15 Sex Admission evaluation note * Watson Escobar MD: PERFORM, MODIFY, MODIFY Event Display: Admission Note Authored Date: [id number] Patient: ??MELISSA LOMBARDO ? Age:??57 Years?Sex:??Male?:??1965?? History of Present Illness 57-year-old male with history of alcohol abuse, hypertension, history of PE not on anticoagulations, GERD, chronic back pain/failed back syndrome, GERD presenting to the emergency department with alcohol intoxication and shortness of breath ?? Patient was in a local grocery store yesterday evening. ??Reportedly there was EMS at the grocery store to attend to another patient however our patient approached the ceramic tile installer on the scene and stated that I am drunk and not feeling well, can you take me to the hospital . ??Subsequently when patient was being brought to the ED patient started complaining of shortness of breath and was noted to be significantly hypotensive with SBP in the 80s. ??Upon arrival to the emergency department his blood pressures were 89/53. ??Initial blood work revealed significantly elevated D-dimer of 4.23, elevated lactic of 4.5 that later trended up to 5.3. ??He also reported to the ED provider that he had a fall at home yesterday morning, subsequently underwent CT of the head, C-spine and CT angiogram of the chest given elevated D-dimer. ?? Imagings revealed multiple bilateral acute pulmonary emboli with question of right heart strain, unchanged 2.9 cm rim calcified saccular aortic aneurysm at the level of ligamentum arteriosum ?? CT head and C-spine spine negative for any acute abnormality, 1.0 cm probable partially calcified meningioma in the region of the left frontotemporal lobe, unchanged since at least 08/17/2021. ?? He was subsequently started on heparin drip ?? Patient is fortunately not hypoxic and not requiring supplemental O2, his blood pressures are now stable status post 3 L of IV fluids. ??Troponin is negative, EKG with no acute changes Review of Systems All systems are reviewed??and are negative except as noted above in the HPI. Objective Vital Signs?? Temperature: 98.2 DegF (10/29/22 19:34:00) Temperature Route: Oral (10/29/22 19:34:00) Pulse Rate: 72 bpm (10/30/22 04:20:00) Respiratory Rate: 16 br/min (10/30/22 04:20:00) Systolic Blood Pressure:??148 mm Hg??High (10/30/22 04:20:00) Diastolic Blood Pressure: 84 mm Hg (10/30/22 04:20:00) Blood pressure sites: Arm, right (10/30/22 04:20:00) Mean Arterial Pressure: 65 mm Hg (10/29/22 19:34:00) Pulse Pressure: 36 mm Hg (10/29/22 19:34:00) Oxygen Saturation: 94 % (10/30/22 04:20:00) Mode of Delivery (Oxygen): Room air (10/30/22 04:20:00) Early Warning Score: 6 (10/30/22 04:31:46) ? Physical Exam General: Alert, oriented x3, anxious, no acute distress HEENT: Atraumatic, normocephalic, EOMI, PERRL Neck: Supple, trachea midline Respiratory: Diminished bibasilar breath sounds, otherwise CTA B, no wheezes, crackles or rhonchi saturating well on room air CVS: S1, S2. ??RRR, no MRG, no JVD Abdomen: Soft, nontender, nondistended, positive bowel sounds Musculoskeletal: No deformities, no cyanosis Neuro: Alert and oriented x3, cranial nerves II to XII intact, no facial asymmetry Psych: Anxious, cooperative Assessment/Plan 57-year-old male with history of alcohol abuse, hypertension, history of PE not on anticoagulations, GERD, chronic back pain/failed back syndrome, GERD presenting to the emergency department with alcohol intoxication and shortness of breath ?? Acute bilateral pulmonary embolism with? ??Right heart strain: ?? -Vitals are stable now, was initially hypotensive status post 3 L of IV fluids. -Denies any shortness of breath right now, no hypoxia and is saturating well on room air -Patient has been started on heparin drip per protocol which we will continue for now -Continue to monitor hemodynamics and respiratory status very closely -Continue with cardiac monitoring given concerns for possible right heart strain, trend troponin. ?? Alcohol abuse Alcohol intoxication At risk for alcohol withdrawal ?? -Start the patient on CIWA protocol, continue with thiamine, folate, pyridoxine, multivitamins, lorazepam per CIWA protocol. ??Social work consult requested ?? Hypertension: We will hold off on lisinopril given he was initially quite hypertensive on arrival. ??Continue to monitor hemodynamics closely ?? 1.0 cm probable partially calcified meningioma in the region of left frontotemporal lobe: Unchangedsince at least 08/17/2021 radiology, recommend outpatient follow-up ?? Unchanged 2.9 cm rim calcified saccular aortic aneurysm at the level of ligamentum arteriosum: Recommend outpatient follow-up ?? Anxiety/depression: Continue with duloxetine ?? GERD: Continue with pantoprazole ?? Insomnia: Melatonin as needed ?? Chronic low back pain/Failed back syndrome: Continue with gabapentin ?? DVT prophylaxis: Already on heparin drip ?? CODE STATUS: Full code. ?? I spent a total of??75 minutes reviewing the chart / medical records, evaluating the patient, evaluating and interpreting laboratory and imaging data, formulating and discussing the treatment plan, and documenting the encounter. Histories Allergies Allergies ?(Active and Proposed Allergies [...] pump placement: 04/26/12 Laminectomy: 05/18/88 Left wrist Ribs, multiple fractures Right knee Hip ? Social History Alcohol Details:??Use: Frequency: beer/vodka daily Substance Abuse Details:??Use: Past. ??Type: Prescription medications, opiates. Tobacco Details:??Current every day smoker, Other: 6 cigarettes per day. ??Type: Cigarettes. ? Family History Father: Hypertension ? Medications Home Medications Duloxetine (duloxetine 30 mg oral enteric [...] Recent Labs BLOOD COUNT & DIFF WBC 6.6 k/mm3 ()?? 10/30/2022 00:07 RBC 3.92 m/mm3 (Low)?? 10/30/2022 00:07 Hgb 10.8 Gm/dL (Low)?? 10/30/2022 00:07 Hct 34.6 % (Low)?? 10/30/2022 00:07 MCV 88.3 femtoliters ()?? 10/30/2022 00:07 MCH 27.6 pg ()?? 10/30/2022 00:07 MCHC 31.2 g/dL (Low)?? 10/30/2022 00:07 Platelet Count 334 k/mm3 ()?? 10/30/2022 00:07 RDW-SD 45.1 femtoliters ()?? 10/30/2022 00:07 MPV 9.7 femtoliters ()?? 10/30/2022 00:07 Nucleated RBC (Automated) 0.0 #/100 WBC'S ()?? 10/30/2022 00:07 Abs. NRBC 0.0 k/mm3 ()?? 10/30/2022 00:07 Abs. Neut 3.3 k/mm3 ()?? 10/30/2022 00:07 Abs. Lymph 2.5 k/mm3 ()?? 10/30/2022 00:07 Abs. Liberty 0.5 k/mm3 ()?? 10/30/2022 00:07 Abs. Eo 0.1 k/mm3 ()?? 10/30/2022 00:07 Abs. Baso 0.1 k/mm3 ()?? 10/30/2022 00:07 Neut % 50.3 % ()?? 10/30/2022 00:07 Lymph % 38.3 % ()?? 10/30/2022 00:07 Liberty % 7.3 % ()?? 10/30/2022 00:07 Eos % 1.8 % ()?? 10/30/2022 00:07 Baso % 1.1 % ()?? 10/30/2022 00:07 Imm Gran 1.2 % ()?? 10/30/2022 00:07 Abs. Imm Gran 0.1 k/mm3 ()?? 10/30/2022 00:07 ?? CARDIAC Nt-Probnp 103 pg/mL ()?? 10/30/2022 00:07 High Sensitivity Troponin (HSTnT) 14 ng/L ()?? 10/30/2022 00:07 ?? CHEM GENERAL Sodium 142 mmol/L ()?? 10/29/2022 20:00 Potassium 3.5 mmol/L (Low)?? 10/29/2022 20:00 Chloride 100 mmol/L ()?? 10/29/2022 20:00 Bicarbonate Level 27 mmol/L ()?? 10/29/2022 20:00 Anion Gap 15 ()?? 10/29/2022 20:00 Glucose Level 88 mg/dL ()?? 10/29/2022 20:00 BUN 15 mg/dL ()?? 10/29/2022 20:00 Creatinine-Blood 1.2 mg/dL ()?? 10/29/2022 20:00 Estimated GFR Creatinine 72 ML/MIN/1.73 M2 ()?? 10/29/2022 20:00 Calcium 9.1 mg/dL ()?? 10/29/2022 20:00 Protein, Total 6.2 Gm/dL ()?? 10/29/2022 20:00 Albumin 4.0 Gm/dL ()?? 10/29/2022 20:00 Alkaline Phosphatase 74 units/L ()?? 10/29/2022 20:00 AST (SGOT) 14 units/L ()?? 10/29/2022 20:00 ALT (SGPT) 9 units/L ()?? 10/29/2022 20:00 Bilirubin, Total 0.2 mg/dL ()?? 10/29/2022 20:00 Bilirubin, Direct <0.2 mg/dL ()?? 10/29/2022 20:00 Bilirubin, Indirect Direct bilirubin is less than the measureable limit. Therefore, indirect mg/dL ()?? 10/29/2022 20:00 Lactate 4.6 mmol/L (High)?? 10/30/2022 00:07 ?? COAG APTT 22.4 seconds (Low)?? 10/30/2022 00:07 D-Dimer 4.23 mg/L FEU (High)?? 10/29/2022 20:00 ?? HEME OTHER Hold Lavender Top SPECIMEN DISCARDED AFTER 24 HOURS. ()?? 10/30/2022 00:07 ?? VIROLOGY COVID-19 by RT-PCR NEGATIVE ()?? 10/29/2022 20:10 ? US Heart * Event Display: Echocardiogram - Complete Authored Date: [id number] Transthoracic Echocardiography Report (TTE) Patient Demographics Patient Name MELISSA LOMBARDO Date of Study 10/30/2022 Corporate Gender Male Facility Race Ethnicity Date of 1965 Height: 70.87 inches Age 57 year(s) Weight: 134.5 pounds Accession Number [id number] BSA: 1.78 m2 Room Number [id number] BMI: 18.83 kg/m2 Referring Physician Shayy Iyer MD Interpreting Franklin Espinosa MD Physician Strawhat Inspector And Packer Kristin Najera Indications Pulmonary embolus. Clinical History Hypertension. Cardiomyopathy. Aortic anuerysm Study Data Type of Study TTE procedure:Echo Complete-Doppler, Colorflow, M-Mode. Study Date10/30/2022 Start Time: 02:24 PM Study Location: [facility] [place] Study Status: Stress lab Patient Status: Routine Technical Quality: Adequate Blood Pressure:153/71 mmHg EKG: Normal sinus rhythm HR: 60 bpm 2D Measurements LV Diastolic Dimension: 5.19 cm LV Systolic Dimension: 3.78 cm LV Septum Diastolic: 1.05 cm LV PW Diastolic: 1.11 cm AO Root Dimension: 3.7 cm LA ESV (BP):65.99 ml LVOT Stroke Volume: 72.08 ml LA ESV Index: 37 ml/m2 Stroke Volume Index40.49 ml/m2 LVOT: 2.24 cm Cardiac Index:2.43 l/min/m2 Ascending Aorta:4.18 cm Doppler Measurements AV Peak Velocity: 160 cm/s MV Peak E-Wave: 83.3 cm/s AV Peak Gradient: 10.24 mmHg MV Peak A-Wave: 108 cm/s MV E/A Ratio: 0.77 LVOT Peak Velocity: 80.3 cm/s LVOT VTI18.3 cm MV Deceleration Time: 236 msec TR Velocity:235 cm/s TR Gradient:22.09 mmHg PV Peak Velocity: 104 cm/s E' Septal Velocity: 7.18 cm/s PV Peak Gradient: 4.33 mmHg E' Lateral Velocity: 9.68 cm/s E/Med E':[id number] E/Lat E':[id number] Cardiac Anatomy Left Ventricle/Interventricular Septum The left ventricular size is normal. The left ventricular wall thickness is upper normal. The LV systolic function is normal . The left ventricular ejection fraction is 55-60 %. There are no regional wall motion abnormalities. Normal diastolic function. Left Atrium/Interatrial Septum The left atrium is mildly dilated. Aortic Valve The aortic valve is trileaflet . The aortic valve appears mildly thickened. There is no aortic stenosis. There is no aortic regurgitation. Mitral Valve The mitral valve appears mildly thickened. Mitral leaflet excursion is mildly reduced . There is mild mitral regurgitation. Aorta The aortic root is normal in size. There is mild dilation of the ascending aorta . The maximum measured diameter of the ascending aorta is 4.2 cm. Right Ventricle The right ventricle is normal in size. Right ventricular systolic function appears preserved. Right Atrium The right atrium is normal in size. Pulmonic Valve The pulmonic valve is poorly visualized. Tricuspid Valve The tricuspid valve appears normal . There is trace tricuspid valve regurgitation. Pumonary Artery The pulmonary artery systolic pressure estimation is within normal limits. Venous Structures The inferior vena cava is poorly visualized. Pericardium/Extracardiac There is no significant pericardial effusion. Summary The left ventricular size is normal. The left ventricular wall thickness is upper normal. The LV systolic function is normal . The left ventricular ejection fraction is 55-60 %. There are no regional wall motion abnormalities. Normal diastolic function. The left atrium is mildly dilated. The mitral valve appears mildly thickened. Mitral leaflet excursion is mildly reduced . There is mild mitral regurgitation. The aortic root is normal in size. There is mild dilation of the ascending aorta . The maximum measured diameter of the ascending aorta is 4.2 cm. The right ventricle is normal in size. Right ventricular systolic function appears preserved. Comparison Comparison is made to the study of January 22, 2011. The prior study is not available for comparison. Signature * Event Display: Echocardiogram - Complete Authored Date: Note * Juanjose BELTRÁN, Ernie Ambriz: PERFORM Event Display: Discharge/Transfer Note Hospital Authored Date: [id number] The discharge summary for today, 11/03/2022 was mistakenly filed under endocrinology--- diabetes education note. Please find it there. Thank you. * Velia Shepherd RN: PERFORM Event Display: Discharge/Transfer Note Hospital Authored Date: [id number] Nursing Discharge Note Entered On: 11/03/2022 12:33 EDT Performed On: 11/03/2022 12:33 EDT by Velia Shepherd RN Nursing Discharge Note 2 Discharge Time : 11/03/2022 13:00 EDT Velia Shepherd RN - 11/03/2022 17:33 EDT Discharge Level of Care at Discharge : Home/[facility] Patient Left Unit Via : Wheelchair Patient Accompanied Off Unit with : Responsible adult DC Instructions Provided & Signed by Pt : Yes Patient Understands D/C Instructions : Yes Patient Instructions Discharge Signed : Yes Did Pt have Specialty Bed or Wound Vac : No Velia Shepherd RN - 11/03/2022 12:33 EDT * Velia Shepherd RN: PERFORM Event Display: Patient Education/Instruction Authored Date: [id number] Inpatient Adult Discharge Instructions [address] [id number] Name: MELISSA GRUPO : 1965 Visit: 10/29/2022 23:53:00 Current Date: 11/03/2022 12:34 Account: [id number] Inpatient Adult Discharge Instructions We would like [...] and their families. Surveys are administered by [employer]. ?? If further treatment with your primary care physician or another doctor is recommended, it is important for you to keep the appointment. Call your primary care physician or return to the Emergency Department immediately if your condition worsens, fails to improve, or new symptoms develop. If you need to find a doctor, you can call [facility] [employer] for a referral at [phone] or toll free at [phone] or log in to [email or web address] ?? You can view and manage your care through the patient portal or by using a health care citlaly of your choosing. The [employer] is a website that allows you to securely view your medical information including your hospital discharge summary, office visit summaries, medications and follow-up visits. You can also request appointments, renew medications, and request access to your medical information using a health care citlaly of your choosing, or just ask a question. You can enroll at [email or web address] or register during your next office visit. You have been discharged from [facility], Patient Care Unit: S3. If you have any questions regarding these instructions after you leave, please call us and we will be happy to assist you. 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 You may have had other tests and procedures not included in this list. Please discuss all test results with your provider. Basic Metabolic Panel BUN CBC CBC w/ Differential Creatinine D Dimer Electrolytes Glucose Level HEPATIC FUNCTION PANEL HOLD GEL TUBE HOLD LAVENDER TUBE Lactate Level Lytes Magnesium Level ProBNP PTT Troponin T, High Sensitivity CT Angio Chest CT Cervical Spine W/O Contrast CT Head/Brain W/O Contrast XR Chest 2 Views Frontal and Lat Primary Care Provider Maximo Morfin MD Advance Directive . Discharge Vitals Temperature: 97.9 DegF Height: 180 cm Pulse Rate: 69 bpm Weight: 72 kg Respiratory Rate: 18 br/min Body Mass Index: 22.22 kg/m2 Systolic Blood Pressure: 126 mm Hg Body surface area: 1.9 Diastolic Blood Pressure: 72 mm Hg ?? Oxygen Saturation: 100 % ?? Studies Pending All tests and labs ordered during this hospital stay have been completed unless listed below. Please discuss all pending results with your provider listed above in these instructions. ?? Add On Lab Order CBC COVID-19 (Novel Coronavirus), Rapid PCR High??Sensitivity??Troponin T (Troponin T, High Sensitivity) Lactic Acid Level PTT What to do next Instructions From Your Doctor You came to the hospital due to shortness of breath. Final diagnosis was pulmonary emboli. ?? When to return to the hospital? Call emergency medical services or 911 if you have new or worsening: ?? Chest pain or pressure, squeezing, or fullness in the center of your chest that lasts more than fewminutes, or goes away and comes back (may feel like indigestion or heartburn) Pain or discomfort in one or both arms or shoulders, or in your back, neck, jaw, or stomach Trouble breathing Breaking out in a cold sweat for no known reason Along with the previous symptoms, feeling very tired, faint, or sick to your stomach Coughing up blood If you have any of these symptoms, do not drive yourself. ?? What medications??are you??going to be taking? -Apixaban ?? To do: -Follow up with PCP Discharge Orders You Need to Schedule the Following Appointments Follow Up with??Maximo Morfin MD When??Within 1 week Where: [address] [place] [id number] Discharge Medications MELISSA LOMBARDO :1965 Visit Date:10/29/2022 Medications: Please continue your medications until treatment is completed or stopped by your provider. Medications not listed below should be discontinued. Discuss any questions related to medications with your provider. What How Much When Instructions Next Dose New apixaban (apixaban Starter Pack 5 mg oral tablet) 2 tab(s) Oral Twice a day Duration: 7 Days followed by 1 tablet by mouth twice daily for 23 days ?? Pickup at [facility] 3 9pm 11/03 Unchanged Acamprosate (acamprosate 333 mg oral delayed release tablet) 2 tab(s) Oral 3 times a day TAKE 2 TABLETS BY MOUTH THREE TIMES DAILY ?? 3pm 11/03 Unchanged Acetaminophen (acetaminophen 500 mg oral tablet) 2 tab(s) Oral Every 6 hours every 6 hours Unchanged Duloxetine (duloxetine 30 mg oral enteric coated capsule) 1 capsule Oral Twice a day 911/03 Unchanged Folic Acid (folic acid 1 mg oral tablet) 1 tab(s) Oral Daily 11/04 Unchanged Gabapentin (gabapentin 300 mg oral capsule) 1 capsule Oral 3 times a day 11/03 Unchanged Lisinopril (lisinopril 10 mg oral tablet) 1 tab(s) Oral Daily 11/04 Unchanged Melatonin (Melatonin 5 mg oral tablet) 1 tab(s) Oral Daily at Bedtime as needed for for insomnia as needed Unchanged Multivitamin (multivitamin Multiple Vitamins oral tablet) 1 tab(s) Oral Daily 11/04 Unchanged Pantoprazole (pantoprazole 40 mg oral delayed release tablet) 1 tab(s) Oral Daily 11/04 Unchanged Thiamine (thiamine 100 mg oral tablet) 1 tab(s) Oral Daily 11/04 Pharmacy Information [facility] 3: [address], [place] [id number] [phone] Test Results Below is a partial list of the most recent Laboratory test results done prior to this discharge. You may have had other tests and procedures not included in this list. Please discuss all test resultswith your provider. Basic Metabolic Panel (10/30/2022) ???Sodium - 142 mmol/L???Potassium - 4.4 mmol/L???Chloride - 103 mmol/L???Bicarbonate Level - 27 mmol/L???Anion Gap - 12???Glucose Level - 78 mg/dL???BUN - 11 mg/dL???Creatinine-Blood - 0.8 mg/dL???Estimated GFR Creatinine - 104 ML/MIN/1.73 M2???Calcium - 8.5 mg/dL BUN (11/02/2022) ???BUN - 13 mg/dL CBC (11/03/2022) ???WBC - 5.2 k/mm3???RBC - 3.76 m/mm3???Hgb - 10.6 Gm/dL???Hct - 33.7 %???MCV - 89.6 femtoliters???MCH - 28.2 pg???MCHC - 31.5 g/dL???Platelet Count - 282 k/mm3???RDW-SD - 45.9 femtoliters???MPV - 10.0 femtoliters???Nucleated RBC (Automated) - 0.0 #/100 WBC'S???Abs. NRBC - 0.0 k/mm3 CBC w/ Differential (11/02/2022) ???WBC - 5.5 k/mm3???RBC - 3.72 m/mm3???Hgb - 10.6 Gm/dL???Hct - 33.0 %???MCV - 88.7 femtoliters???MCH - 28.5 pg???MCHC - 32.1 g/dL???Platelet Count - 297 k/mm3???RDW-SD - 45.0 femtoliters???MPV - 10.1 femtoliters???Nucleated RBC (Automated) - 0.0 #/100 WBC'S???Abs. NRBC - 0.0 k/mm3???Abs. Neut - 2.7 k/mm3???Abs. Lymph - 2.1 k/mm3???Abs. Liberty - 0.4 k/mm3???Abs. Eo - 0.2 k/mm3???Abs. Baso - 0.1 k/mm3???Neut % - 48.8 %???Lymph % - 38.1 %???Liberty % - 7.6 %???Eos % - 4.0 %???Baso % - 1.1 %???Imm Gran - 0.4 %???Abs. Imm Gran - 0.0 k/mm3 Creatinine (11/02/2022) ???Creatinine-Blood - 0.9 mg/dL???Estimated GFR Creatinine - 100 ML/MIN/1.73 M2 D Dimer (10/29/2022) ???D-Dimer - 4.23 mg/L FEU Electrolytes (11/02/2022) ???Sodium - 139 mmol/L???Potassium - 4.5 mmol/L???Chloride - 102 mmol/L???Bicarbonate Level - 26 mmol/L???Anion Gap - 11 Glucose Level (11/02/2022) ???Glucose Level - 84 mg/dL HEPATIC FUNCTION PANEL (10/29/2022) ???Protein, Total - 6.2 Gm/dL???Albumin - 4.0 Gm/dL???Alkaline Phosphatase - 74 units/L???AST (SGOT) - 14 units/L? ?ALT (SGPT) - 9 units/L? ?Bilirubin, Total - 0.2 mg/dL? ?Bilirubin, Direct - <0.2mg/dL???Bilirubin, Indirect - Direct bilirubin is less than the measureable limit. Therefore, indirect HOLD GEL TUBE (11/03/2022) ???Hold Gel Top - SPECIMEN DISCARDED AFTER 1 WEEK HOLD LAVENDER TUBE (10/30/2022) ???Hold Lavender Top - SPECIMEN DISCARDED AFTER 24 HOURS. Lactate Level (10/30/2022) ???Lactate - 0.8 mmol/L Lytes (11/01/2022) ???Sodium - 140 mmol/L???Potassium - 4.0 mmol/L???Chloride - 104 mmol/L???Bicarbonate Level - 28 mmol/L???Anion Gap - 8 Magnesium Level (11/02/2022) ???Magnesium - 1.7 mg/dL ProBNP (10/30/2022) ???Nt-Probnp - 103 pg/mL PTT (11/03/2022) ???APTT - 23.9 seconds Troponin T, High Sensitivity (10/30/2022) ???High Sensitivity Troponin (HSTnT) - 15 ng/L Allergies (NKA means No Known Allergies) [...] Educational Leaflet Providered with your Discharge Instructions. Discharge Instructions for Pulmonary Embolism?? Pulmonary Embolism (PE)?? Valuables and Belongings I fully understand and agree that [facility] accepts no responsibility for all my personal [...] List: With patient Possessions released to: No medical devices Date for Pt to Sign Valuables/Belongings: 11/03/22 10:27:00 ?? Other Discharge Information ? Case Management [...] are strongly encouraged to quit. Please call [facility] [employer] [facility] at [phone] or [phone] or log in to [email or web address] for referrals to smoking cessation programs. ?? 529 Suicide & Crisis Lifeline is available 01/02 if you or someone you know needs to find a reason to keep living. By calling 512 you'll be connected to a skilled, trained counselor at a crisis center in your area. INPATIENT DISCHARGE INSTRUCTIONS SIGNATURE LACHO MELISSA LOMBARDO Location:[facility] Registration Date and Time:10/29/2022 23:53 EDT Primary Care Physician: Navjot BELTRÁN , [facility], [facility] GRUPO MELISSA, have received the above patient education materials/instructions and have verbalized understanding. If ambulance or transport services are being used I further acknowledge being given a choice of service. ?? If you need to contact me, please call me at this number: . Patient/Oil Dipper Name: Patient/Oil Dipper Signature: Relationship to Patient: Witness Name/Signature: Date: * Alessandro-Aakash Kingston MD: PERFORM Event Display: Patient Education Leaflets Authored Date: [id number] Discharge Instructions for Pulmonary Embolism ?? 44139 Discharge Instructions for Pulmonary Embolism A deep vein thrombosis (DVT) is a blood clot in a large vein deep in a leg, arm, or elsewhere in the body. The clot can separate from the vein, travel to the lungs, and cut off blood flow. This is a pulmonary embolism (PE).??Pulmonary embolism is very serious and may cause if the clot is large or there are multiple clots.?? Home care Taking care of yourself is very important. To help prevent more blood clots from forming, follow your healthcare provider's instructions. Do the following: ??? Take your medicines exactly??as instructed. Don???t skip doses.??If you miss a dose, call your healthcare provider and ask what you should do. ??? Have all lab tests as recommended. This is very important when you take medicines to prevent blood clots.? If your healthcare provider has instructed you to do so, wear elastic (compression stockings). ??? Get up and get moving. ??? While sitting for long periods of time, move your knees, ankles, feet, and toes. ?? Lifestyle changes To help prevent problems with your heart and blood vessels, do the following:? If you smoke, get help to quit. Talk with your healthcare provider about medicines and programs that can help. ??? Stay at a healthy weight.??If you are overweight, talk to your healthcare provider about losing weight. ??? Try to exercise at least 30 minutes on most days. Before starting an exercise program,??talkwith your healthcare provider. ??? When traveling by car, make frequent stops??to??get??up??and move around. ??? On long airplane rides,??get up and move around when possible.??If you can???t get up,wiggle your toes, move your ankles, and tighten your calves to keep your blood moving. ?? Follow-up care Make a follow-up appointment as directed. Have your lab work done as directed. ?? When to call your healthcare provider Call your healthcare provider right away??if you have: ??? Pain, swelling, and redness in your leg,arm, or other body area. These symptoms may mean another blood clot. ??? Blood in your urine ??? Bleeding with bowel movements ??? Bleeding from the nose, gums, a cut, or vagina ?? Call 911 Call?? 911 if you have??symptoms of a blood clot in the lungs:? Chest pain ??? Trouble breathing ??? Coughing (may cough up blood) ??? Fast heartbeat ??? Sweating ??? Fainting Also call 911 if you have heavy or uncontrolled bleeding. If you are taking a blood thinner, you have an increased chance of bleeding. ?? Last Reviewed Date: 2021 ?? [id number] The [employer]. All rights reserved. This information is not intended as a substitute for professional medical care. Always follow your healthcare professional's instructions. ?? * Aakash Kim MD: PERFORM Event Display: Patient Education Leaflets Authored Date: [id number] Pulmonary Embolism (PE) ?? 34398 Pulmonary Embolism (PE) A pulmonary embolus is most often due to a blood clot that develops in a deep vein of the leg (deepvein thrombosis). If that clot breaks loose and travels to the lung, it's called a pulmonary embolism (PE). This can cut off blood flow in the lungs. A blood clot in the lungs is a medical emergency and may cause .?? Healthcare providers use the term??venous thromboembolism (VTE)??to describe these 2 conditions: deep vein thrombosis and??pulmonary embolism.??They use the term VTE because the 2 conditions are veryclosely linked. And because their prevention and treatment are also closely linked.?? A pulmonary embolism occurs when a blood clot forms in a vein and travels to the lungs. How is pulmonary embolism diagnosed? Your healthcare provider examines you and asks about your??symptoms and health history. You may also have one or more of the following: ??? Blood tests??to check for blood clotting or other problems ??? Imaging tests??to??look for clots in the veins or lung ??? Electrocardiography (ECG)??to test how well the heart is working ?? How is pulmonary embolism treated? Blood-thinning medicines (anticoagulants). These medicines thin the blood. They may be given as a pill,??as an injection, or through a tube into a vein??(intravenous or??IV). Blood thinners help prevent more blood clots from forming. They also help to??preventan existing clot from getting larger. ??? Thrombolysis. Thrombolytic medicines are??used to quicklydissolve a blood clot. A long, narrow tube (catheter) is used to deliver medicine directly to the clot.??Thrombolytic medicines increase the risk of bleeding. So they are used very carefully. ??? Inferior vena cava (IVC) filter surgery. The vena cava is the body???s largest vein. It carries blood from the body to the heart. A small filter traps blood clots in the lower body and prevents them fromtraveling to the lungs. The filter is inserted into the vein through a catheter. The filter may be used if??blood thinners can't be taken or if they don't work.? Pulmonary embolectomy. This is aprocedure to remove a blood clot in the lungs. It may be done with surgery or with a catheter inserted in the body. It may be done when other treatments aren't safe or don't work. ?? What are the long-term concerns? With treatment, blood clots are often dissolved or removed. Some treatments can even help prevent future clots. But??having a PE can put you at risk for another life-threatening blood clot. So, you will likely need to take anticoagulants to help keep blood clots from forming again. You may need to take this medicine for months or years. You may also need to make lifestyle changes. This may include getting more active and eating healthier.??You may??need to wear elastic (compression) stockings and take breaks on long trips. ?? Call 911 Call 911 or get emergency help if you have: ??? Heavy or uncontrolled bleeding ??? Symptoms of a blood clot that has traveled to the lungs, including: o Chest pain o Trouble breathing o Coughing (may cough up blood) o Fainting o Fast heartbeato Sweating ?? When to call your healthcare provider Call your healthcare provider if you have swelling or pain in your leg, arm, or other area. These are symptoms of a blood clot. You may have bleeding if you take medicine to help prevent blood clots. Call your provider if you have symptoms of bleeding. This includes: ??? Blood in your pee ??? Bleeding with your poop (stool or bowel movements) ??? Bleeding from the nose, gums, vagina, or a cut ?? Last Reviewed Date: 2022 ?? [id number] The [employer]. All rights reserved. This information is not intended as a substitute for professional medical care. Always follow your healthcare professional's instructions. ?? * Event Display: Cardiac Rhythm Strips Authored Date: * [facility] , CIS S: TRANSCYoseph Banks MD: VERIFY Event Display: Result: Authored Date: Chest 2 Views Frontal and Lat Hx of Present Illness: pt states I do not feel well , endorsing etoh, last drink of vodka he states 30 minutes ago; Reason: Other:; Shortness of Breath, Fever; Clinical Question(s): Pneumonia COMPARISON: 03/24/2022 FINDINGS: LINES AND TUBES: None. LUNGS AND PLEURA: Clear lungs. Normal pulmonary vascularity. No pleural effusion. No pneumothorax. HEART, MEDIASTINUM AND JAMISON: Unchanged. BONES AND SOFT TISSUES: No acute abnormality. Instrumentation of right-sided ribs reidentified. Old rib fractures. IMPRESSION: No acute abnormality. WSN: [id number] Ordering Physician: Kadie Patel Dictated By: Yoseph Zuniga MD Dictated Date/Time: 10/29/22 9:00 pm Reviewed By: Yoseph Zuniga MD Signed By: Yoseph Zuniga MD Signed Date/Time: 10/29/22 9:00 pm Transcribed By: MARC Transcribed Date/Time: 10/29/22 9:00 pm Hospital Progress note * Juanjose BELTRÁN, Ernie Ambriz: PERFORM Event Display: Progress Note Hospital Authored Date: [id number] This patient was seen today by me at 11:10 AM. This note reflects information of which I was aware up until 1699 today. He was discussed today with his nurse. Patient was feeling pretty well today. He no longer feels particularly short of breath. Still has some pleuritic chest pain but gradually it is improving. He has chronic back pain but that is not really changed. No nausea. Appetite is marginal. He is very happy with the concept of switching off of the IV anticoagulant, namely heparin to oral Eliquis. He hopes to be able to get out of the hospital soon. On exam the patient looked well. He was awake alert. He was in some discomfort as delineated by some wincing when he took deep breaths or try to move in the bed. He did not look short of breath though. Color was good. Vital signs are stable and afebrile. Temperature 98.3 heart rate of 57 respiratory rate 17 121/65 blood pressure 97% saturated on room air. Oral mucosa is moist without lesions tongue normal size lungs clear to auscultation completely no wheezing rales or rhonchi. Heart exam S1-S2 normal no S3 or S4 regular rate and rhythm. No leg edema. Laboratory data reviewed White count normal H&H stable at 10 and 33 platelet count good electrolytes are renal numbers are good. Magnesium level. Chest x-ray on 10/[address] angiogram reviewed from 10/29 showed multiple PEs. Cervical spine CT scan was okay reviewed from the . Assessment/Plan Assessment: 57 y/o male with h/o alcohol abuse, hypertension, history of PE not on anticoagulations, GERD, chronic back pain/failed back syndrome, GERD presenting to the emergency department with alcohol intoxication and shortness of breath Acute bilateral pulmonary embolism O2 sat good Patient told me that when he had the PE previously he was put on an anticoagulant that he was told to take for 4 months and then he stopped. Its been about 8 months now since he stopped it and now has had a recurrence. I told him that it is quite likely he will need lifelong anticoagulation given the circumstances however there may be a possibility of frequently interrupting his anticoagulation after a full 6 months of therapy for the current PEs, and may be getting some hypercoagulability testing done in a more formal way. That something can take up with his primary care doctor in the future. For now though I told him he should take this uninterrupted for at least 6 months. For today, at 9 PM this evening the patient's heparin drip will be shut off. Simultaneously at thattime he will be given his first dose of apixaban 10 mg. He will then continue with 10 mg twice daily for a week and then 5 mg twice daily thereafter. I discussed this personally with his nurse today so she understands the plans. At the end he will therefore be able to take a dose at 9 AM and 9 PM. Alcohol abuse Alcohol intoxication At risk for alcohol withdrawal but doing well so far. No evidence of withdrawal now. No action necessary right now. He is probably mostly out of the window for any serious withdrawal. Will continue CIWA Thiamine, FA. MV Anxiety/depression: Continue with duloxetine GERD: Continue with pantoprazole Insomnia: Melatonin as needed Chronic low back pain/Failed back syndrome: Continue with gabapentin DVT prophylaxis: Already on heparin drip-we will be switching to Eliquis as noted above. CODE STATUS: Full code. Discharge Planning: If all is well tomorrow is a good chance he could be discharged tomorrow. As noted previously: Here are the results of his echo. Summary The left ventricular size is normal. The left ventricular wall thickness is upper normal. The LV systolic function is normal . The left ventricular ejection fraction is 55-60 %. There are no regional wall motion abnormalities. Normal diastolic function. The left atrium is mildly dilated. The mitral valve appears mildly thickened. Mitral leaflet excursion is mildly reduced . There is mild mitral regurgitation. The aortic root is normal in size. There is mild dilation of the ascending aorta . The maximum measured diameter of the ascending aorta is 4.2 cm. The right ventricle is normal in size. Right ventricular systolic function appears preserved. * Toshia Arce RN: PERFORM, SIGN, VERIFY Event Display: Progress Note Hospital Authored Date: Patient: MELISSA LOMBARDO Age: 57 years Sex: Male : 1965 Associated Diagnoses: None Author: Toshia Arce RN Findings Problem Related to Alteration in Psychosocial : Alteration in Psychosocial Function/new 11/01/2022 21:00 EDT Alteration in Psychosocial Related to Acute Alcohol Withdrawal Goals & Outcomes, Psychosocial Psychosocial support will be provided to Pt/S.O. as needed, Pt will identify stressors leading up to event, Pt will state importance of adhering to medication regime, Pt/caregiver will be offered appropriate resources & support, Pt/caregiver will express feelings/needs/fears /concerns, Pt/caregiver will maintain/obtain psychological stability, Pt/caregiver will participate in coping skill counseling, Pt successfully withdraws with minimal side effects, Encourage patient to attend NA/AA meetings, Pt will detoxify from substance, Pt will develop plan for sobriety after discharge Interventions, Psychosocial Assess psychosocial needs, Assess readiness to learn needed lifestyle changes, Assess/monitor level of consciousness, Evaluate resources & support system available to pt, Offer support; discuss coping strategies, Provide a calm, supportive environment Goals/Interventions, Psychosocial Yes Psychosocial, Problem Start 10/31/2022 7:50 Reviewed Plan with, Psychosocial Patient Patient Progression, Psychosocial Pt progressing according to plan . Alteration in Tissue Perfusion : Alteration in Tissue Perfusion 11/01/2022 21:00 EDT Alteration Tissue Perfusion related to Clotting, Other: PE? Goals & Outcomes: Tissue perfusion Pt will maintain optimal perfusion to vital organs, Pt will resume/maintain adequate peripheral circulation, Pt will experience improved tissue perfusion, Pt will be hemodynamically stable, Pt will achieve normal/improved/optimal neuro status, Pt will return to baseline respiratory function, Pt will maintain adequate GI function appropriate for pt, Pt will maintain adequate function appropriate for pt, Pt/ S.O. will state understanding of plan of care, Pt/S.O. will verbalize understanding of the D/C plan Interventions: Tissue Perfusion Assess/Monitor activity tolerance, Assess/Monitor mental status, Assess/Monitor peripheral pulses & capillary refill, Monitor blood loss, Monitor Intake & Output Goals/Interventions, Tissue Perfusion Yes Tissue Perfusion, Problem Start 11/01/2022 22:13 Reviewed Plan with, Tissue Perfusion Patient Patient Progression, Tissue Perfusion Pt progressing according to plan . Nursing Data Vital Signs : VITAL SIGNS SECTION 11/02/2022 3:56 EDT Temperature 98.5 DegF Temperature Route Oral Pulse Rate 56 bpm Respiratory Rate 16 br/min Systolic Blood Pressure 140 mm Hg H Diastolic Blood Pressure 75 mm Hg Blood pressure sites Arm, right Mean Arterial Pressure 97 mm Hg Pulse Pressure 65 mm Hg Oxygen Saturation 98 % Mode of Delivery (Oxygen) Room air 11/02/2022 0:28 EDT Temperature 98.4 DegF Temperature Route Oral Pulse Rate 50 bpm L Respiratory Rate 16 br/min Systolic Blood Pressure 162 mm Hg H Diastolic Blood Pressure 82 mm Hg (Modified) Blood pressure sites Arm, right Mean Arterial Pressure 109 mm Hg (Modified) Pulse Pressure 80 mm Hg (Modified) Oxygen Saturation 100 % Mode of Delivery (Oxygen) Room air 11/01/2022 20:55 EDT Temperature 98.3 DegF Temperature Route Oral Pulse Rate 50 bpm L Respiratory Rate 16 br/min Systolic Blood Pressure 151 mm Hg H Diastolic Blood Pressure 71 mm Hg Blood pressure sites Arm, right Mean Arterial Pressure 98 mm Hg Pulse Pressure 80 mm Hg Oxygen Saturation 99 % Mode of Delivery (Oxygen) Room air . Evaluation Schedule meds given, head to toe assessment completed, Patient alert and oriented x4. pt has stableVSS, Please see CIS for full assessment. Call michel and bedside table within reach. All Safety measures in place. Non-slip socks on. Bed on lowest position and locked. Bed alarm on. Frequent purposeful rounding done. Will continue to monitor.. * Jaylon BELTRÁN, Shayy Pedraza: PERFORM, MODIFY Event Display: Progress Note Hospital Authored Date: Patient: ??SEEKINS, MELISSA ? Age:??57 Years?Sex:??Male?:??1965?? Subjective Seen and examined today No change from 10/31/22 ?? Review of Systems Constitutional: No fever or chills,a nxuis ENT: No sore throat or nasal congestion. Respiratory: No shortness of breath or cough??. Cardiovascular: No chest pain or??palpitation. Gastrointestinal: No nausea, vomiting or diarrhea. Skin: No rash or lesion Neurology: No speech problem no vision problem no focal weakness, no dizziness. Psychiatric: Cooperative, normal mood and affect Objective ?? Physical Exam Awake, alert, oriented Lungs: Clear to auscultation bilateral, no wheezing no rales Heart: Regular rate and rhythm, no murmur, no rub or gallop Abdomen: Soft, nontender, nondistended; Bowel sounds present Extremity: No edema cyanosis clubbing Neurological: No focal deficit Psychiatric: Normal mood and affect Assessment/Plan Assessment:??57 y/o male with h/o??alcohol abuse, hypertension, history of PE not on anticoagulations, GERD, chronic back pain/failed back syndrome, GERD presenting to the emergency department with alcohol intoxication and shortness of breath ?? Acute bilateral pulmonary embolism with??Right heart strain: ?? O2 sat good Plan: Will continue Heparin gtt for now and transition to PO eliquis ECHO ? Alcohol abuse Alcohol intoxication At risk for alcohol withdrawal ?? CIWA last night was 2=, no updated socre; but patient states he started feeling anxious; likely will start withdrawing today ?? Will continue CIWA Thiamine, FA. MV SW consult ? Anxiety/depression: Continue with duloxetine ?? GERD: Continue with pantoprazole ?? Insomnia: Melatonin as needed ?? Chronic low back pain/Failed back syndrome: Continue with gabapentin ?? DVT prophylaxis: Already on heparin drip ?? CODE STATUS: Full code. ?? Discharge Planning:?ECHO done no RV starin ?? Summary ??The left ventricular size is normal. The left ventricular wall thickness is ??upper normal. The LV systolic function is normal . The left ventricular ??ejection fraction is 55-60 %. There are no regional wall motion ??abnormalities. Normal diastolic function. ?The left atrium is mildly dilated. ?The mitral valve appears mildly thickened. Mitral leaflet excursion is ??mildly reduced . There is mild mitral regurgitation. ?The aortic root is normal in size. There is mild dilation of the ascending ??aorta . The maximum measured diameter of the ascending aorta is 4.2 cm. ?The right ventricle is normal in size. Right ventricular systolic function ??appears preserved. ? CT Cervical spine WO contrast * [facility] , [facility] S: TRANSCRIBE Nadia BELTRÁN, Yoseph: VERIFY Dileep Fay MD: SIGN Event Display: Result: Authored Date: [id number] CT Head/Brain W/O Contrast, CT Cervical Spine W/O Contrast INDICATION: Patient was intoxicated and asked to come to the hospital. TECHNIQUE: Noncontrast head CT using axial technique was reconstructed in axial and coronal planes.Noncontrast spiral CT through the cervical spine was formatted in 3 planes. Automatic tube modulation was used for the cervical spine and iterative dose reconstruction was used for both the head and cervical spine to optimize scan parameters and image quality. CTDIvol Body: 11.60 mGy, DLP Body: 334 mGy*cm. CTDIvol Head: 40.20 mGy, DLP Head: 671 mGy*cm. COMPARISON: 08/07/2022, 08/17/2021. FINDINGS: Wall Worker View Findings, Lines and Tubes: None. BRAIN AND EXTRA-AXIAL SPACES: No parenchymal hemorrhage, midline shift, or mass effect. Gaines-white matter differentiation is wellpreserved. Approximately 1.0 cm partially calcified lesion along the left frontotemporal skull inner table, likely meningioma, unchanged since at least 08/17/2021.. Chronic lacunar infarcts in the right frontal deep white matter and right caudate head, similar to prior. No acute infarct. Negative insular ribbon sign. Atherosclerotic vascular calcification of the carotid arteries but negative hyperdense vessel sign. Mild prominence of the ventricles and sulci consistent with parenchymal volume loss. Mild low-density white matter changes. No subarachnoid hemorrhage. No subdural or epidural collection. CALVARIUM, SKULL BASE, AND SOFT TISSUES: No fractures or suspicious bony lesions. Mild mucosal thickening of the paranasal sinuses. Mastoid air cells are clear. Visualized orbits and globes are intact. The extracranial soft tissues are unremarkable. CERVICAL SPINE: No fracture. No acute osseous abnormalities. Normal alignment. No locked or perched facet. Mild multilevel degenerative disc space narrowing andend plate irregularity. Mild nuchal ligament calcification. OTHER BONES: No acute abnormality. CERVICAL SOFT TISSUES AND LUNG APICES: Normal soft tissues. Visualized lung apices are clear. IMPRESSION: No acute intracranial abnormality. Mild degenerative changes of the cervical spine with no acute fracture or osseous abnormality. 1.0 cm probable partially calcified meningioma in the region of the left frontotemporal lobe, unchanged since at least 08/17/2021. I have personally reviewed the images and I agree with this report. WSN: [id number] Ordering Physician: Kadie Patel Dictated By: Dileep Fay MD Dictated Date/Time: 10/29/22 11:11 p Reviewed By: Yoseph Zuniga MD Signed By: Yoseph Zuniga MD Signed Date/Time: 10/29/22 11:16 pm Transcribed By: MARC Transcribed Date/Time: 10/29/22 11:[address] Head WO contrast * [facility] , [facility] S: TRANSCRIBE Yoseph Zuniga MD: VERIFY Dileep Fay MD: SIGN Event Display: Result: Authored Date: [id number] CT Head/Brain W/O Contrast, CT Cervical Spine W/O Contrast INDICATION: Patient was intoxicated and asked to come to the hospital. TECHNIQUE: Noncontrast head CT using axial technique was reconstructed in axial and coronal planes.Noncontrast spiral CT through the cervical spine was formatted in 3 planes. Automatic tube modulation was used for the cervical spine and iterative dose reconstruction was used for both the head and cervical spine to optimize scan parameters and image quality. CTDIvol Body: 11.60 mGy, DLP Body: 334 mGy*cm. CTDIvol Head: 40.20 mGy, DLP Head: 671 mGy*cm. COMPARISON: 08/07/2022, 08/17/2021. FINDINGS: Wall Worker View Findings, Lines and Tubes: None. BRAIN AND EXTRA-AXIAL SPACES: No parenchymal hemorrhage, midline shift, or mass effect. Gaines-white matter differentiation is wellpreserved. Approximately 1.0 cm partially calcified lesion along the left frontotemporal skull inner table, likely meningioma, unchanged since at least 08/17/2021.. Chronic lacunar infarcts in the right frontal deep white matter and right caudate head, similar to prior. No acute infarct. Negative insular ribbon sign. Atherosclerotic vascular calcification of the carotid arteries but negative hyperdense vessel sign. Mild prominence of the ventricles and sulci consistent with parenchymal volume loss. Mild low-density white matter changes. No subarachnoid hemorrhage. No subdural or epidural collection. CALVARIUM, SKULL BASE, AND SOFT TISSUES: No fractures or suspicious bony lesions. Mild mucosal thickening of the paranasal sinuses. Mastoid air cells are clear. Visualized orbits and globes are intact. The extracranial soft tissues are unremarkable. CERVICAL SPINE: No fracture. No acute osseous abnormalities. Normal alignment. No locked or perched facet. Mild multilevel degenerative disc space narrowing andend plate irregularity. Mild nuchal ligament calcification. OTHER BONES: No acute abnormality. CERVICAL SOFT TISSUES AND LUNG APICES: Normal soft tissues. Visualized lung apices are clear. IMPRESSION: No acute intracranial abnormality. Mild degenerative changes of the cervical spine with no acute fracture or osseous abnormality. 1.0 cm probable partially calcified meningioma in the region of the left frontotemporal lobe, unchanged since at least 08/17/2021. I have personally reviewed the images and I agree with this report. WSN: [id number] Ordering Physician: Kadie Patel Dictated By: Dileep Fay MD Dictated Date/Time: 10/29/22 11:11 p Reviewed By: Yoseph Zuniga MD Signed By: Yoseph Zuniga MD Signed Date/Time: 10/29/22 11:16 pm Transcribed By: MARC Transcribed Date/Time: 10/29/22 11:07 pm CTA Chest vessels W contrast IV * [facility] , [facility] S: TRANSCRIBE Yoseph Zuniga MD: VERIFY Dileep Fay MD: SIGN Event Display: Result: Authored Date: [id number] EXAMINATION: CT Angio Chest INDICATION: Shortness of breath, concern for pulmonary embolism. TECHNIQUE: Spiral CTA of the chest was performed after rapid IV contrast administration without cardiac gating, triggered by an JAMES on the main pulmonary artery. Images are formatted in multiple planes using 2-D multiplanar and 3-D maximum intensity projection. 100 cc of Omnipaque 300 was administered intravenously. This study was performed without oral contrast. Weight-based protocol using automatic tube modulation was used to optimize exposure parameters. CTDIvol Body: 7.83 mGy, DLP Body: 404 mGy*cm. COMPARISONS: 08/07/2022. ANGIOGRAPHIC FINDINGS: Multiple acute bilateral segmental and subsegmental pulmonary emboli. No interventricular septal bowing or large reflux of contrast into the IVC, however, the right ventricle appears slightly enlarged and normal when compared with the left. No evidence of right heart strain. Unchanged 2.9 cm rim calcified saccular aneurysm at the level of the ligamentum arteriosum. No aortic dissection or intramural hematoma. NON-ANGIOGRAPHIC FINDINGS: Wall Worker View Findings, Lines and Tubes: None. Trachea and Airways: Patent without evidence of tracheal or endobronchial lesion. Lungs and Pleura: Paraseptal emphysema. Groundglass opacities throughout the bilateral lungs, greatest in the lower regions. No effusion or pneumothorax. Mediastinum and jamison: No mass or hematoma. No mediastinal or hilar lymphadenopathy. Esophagus is extremely concentrically thickened. Partially imaged thyroid is unremarkable. Heart: Mild cardiomegaly. No pericardial effusion. Moderate coronary artery calcification. Chest Wall Soft Tissues: Normal. Diaphragm and upper abdomen: Small hiatal hernia. Bones: Surgical fixation of multiple right-sided rib fractures, seen on prior. Moderate degenerative changes of the spine with mild chronic endplate destruction of T7-T10. IMPRESSION: Multiple bilateral acute pulmonary emboli. The right ventricle appears slightly enlarged when compared with the left which may represent right heart strain. Correlation with EKG, laboratory workup, and clinical symptoms is recommended. Unchanged 2.9 cm rim calcified saccular aortic aneurysm at the level of the ligamentum arteriosum. Bilateral groundglass opacifications in the lungs, which may represent atelectasis and inflammatoryprocess, however, infectious etiology cannot be completely excluded. Thickened esophagus. Consider endoscopy or barium swallow for further evaluation. Results were conveyed by [employer] by Dr. Fay to Kadie Patel MD on 10/29/2022 at 11:34 PM withunderstanding acknowledged. I have personally reviewed the images and I agree with this report. WSN: [id number] Ordering Physician: Kadie Patel Dictated By: Dileep Fay MD Dictated Date/Time: 10/29/22 11:56 p Reviewed By: Yoseph Zuniga MD Signed By: Yoseph Zuniga MD Signed Date/Time: 10/30/22 0:01 am Transcribed By: MARC Transcribed Date/Time: 10/29/22 11:46 pm Patient Care team information Care Team Personnel Name: Unique Dubon RN Position: S RN Member Role: Primary Care Nurse Name: Maximo Morfin MD Position: [facility] Outreach Member Role: PCP Address: Address: [address] [place] [phone]- Name: Kadi Oliver RN Position: [facility] AMB Nurse Member Role: Primary Care Nurse Name: Mary Roberson RN Position: [facility] SN RN Member Role: Primary Care Nurse Name: Liz Sweet RN Position: [facility] RN Member Role: Primary Care Nurse Name: Toyin Contreras RN Position: [facility] Onco RN Member Role: Primary Care Nurse Name: Tierra Juan RN Position: [facility] SN RN Member Role: Primary Care Nurse Name: Veena Arthur RN Position: [facility] RN Member Role: Primary Care Nurse Name: Toshia Arce RN Position: [facility] RN Member Role: Primary Care Nurse Name: Velia Shepherd RN Position: [facility] RN Member Role: Primary Care Nurse Name: Shelby Boothe RN Position: [facility] PCO w/OE and EZ Script Member Role: Primary Care Nurse Name: Francoise Whaley RN Position: [facility] Hospital Helper Shear Operator Member Role: Primary Care Nurse Name: Ron ANTUNEZ Attending Position: [facility] ED Medicine MD Name: Jose Shaw Position: [facility] ED TA [facility] Member Role: ED Associate Name: Isabell Camargo RN Position: [facility] ED RN W/OE and Tasks Member Role: Patient Care Provider Care Team Related Persons Name: KATINA OPAL Address: home [address] [place] [address] Name: QUAN LOMBARDO Name: AMOS LOMBARDO Address: [place] [address]
[2023-05-04 00:03] LABS: MANUAL DIFF FLAG NO
[2023-05-04 00:19] LABS: Basophils Absolute Auto 0.1 X10*3/uL (0.0-0.2); Basophils Percent Auto 0.9 % (0-2); Eosinophils Absolute Auto 0.2 X10*3/uL (0.0-0.4); Eosinophils Percent Auto 1.8 % (0-4); Hematocrit 32.5 % (42.0-52.0); Hemoglobin 9.8 g/dl (14.0-18.0); Imm Gran Abs Auto 0.02 X10*3/uL (0.00-0.03); Imm Gran Pct Auto 0.2 % (0.0-0.4); Lymphocytes Percent Auto 34.2 % (20-40); Mean Corpuscular HGB Conc 30.2 g/dl (31.0-36.0); Mean Corpuscular Hemoglobin 22.7 pg (27.0-33.0); Mean Corpuscular Volume 75.4 fL (80.0-98.0); Mean Platelet Volume 9.5 fL (9.4-12.4); Monocytes Absolute Auto 0.8 X10*3/uL (0.1-1.2); Monocytes Percent Auto 8.7 % (2-11); Neutrophils Absolute Auto 4.8 x10*3/uL (2.0-8.3); Neutrophils Percent Auto 54.2 % (45-73); Platelet Count 337 X10*3/uL (160-400); Red Blood Count 4.31 X10*6/uL (4.60-5.80); Red Cell Distribution Width 18.8 % (11.0-16.0); White Blood Count 8.8 X10*3/uL (4.8-10.8)
[2023-05-04 00:23] LABS: Alanine Aminotransferase 10 U/L (0-40); Albumin Level 4.3 g/dL (3.5-5.0); Alkaline Phosphatase 81 U/L (39-117); Anion Gap 15 (12-20); Aspartate Amino Transferase 14 U/L (5-37); Bilirubin Total 0.3 mg/dL (0.0-1.0); Blood Urea Nitrogen 14 mg/dL (9-16); Calcium 9.9 mg/dL (8.4-10.2); Carbon Dioxide 27 mmol/L (22-29); Chloride 100 mmol/L (96-108); Creatinine Clr Calc Pharmacy 80.3; Estimated Glomerular Filt Rate > 60; Glucose Random 95 mg/dL (60-115); Magnesium 2.1 mg/dL (1.6-2.6); Sodium 138 mmol/L (135-145); Total Protein 7.8 g/dL (6.5-8.0)
[2023-05-04 00:29] LABS: Troponin-I High Sensitivity < 2.7 ng/L (<3.5-35.0)
--- NOTE | 2023-05-04 01:00 | PC.NURSE ---
This tag writer assumed care at 0100, Pt AOx3, reports abdominal pain 01/18. Pt states he has been vomiting for 10 days, and cannot keep anything down. Pt reports mild nausea, denies diarrhea. Pt is calm and cooperative, pt aware of plan.
[2023-05-04 04:00] VITALS: BP 136/94; PULSE 92; RESP 18; TEMP 36.6; O2SAT 99
[2023-05-04] MEDS: Lidocaine HCl Viscous 2 % 15 ML SOLUTION MUCOUS MEM (05:33)
[2023-05-04] MEDS: Magnesium Hydrox/Alum Hydrox 30 ML ORAL.SUSP PO (05:33)
[2023-05-04] MEDS: Omeprazole 40 MG CAPSULE.DR PO (05:34)
[2023-05-04 05:48] LABS: Lipase 12 U/L (8-78)
== END 2023-05-04 07:03 | disposition home or self-care (01) ==
PROVIDERS: Physician Assistant Medical; Emergency Provider Internal Medicine; PCP Internal Medicine
DX: K21.00 Gastro-esophageal reflux disease with esophagitis, without bleeding (principal); K22.0 Achalasia of cardia; R11.2 Nausea with vomiting, unspecified; R19.7 Diarrhea, unspecified; R13.10 Dysphagia, unspecified; Z20.822 Contact with and (suspected) exposure to COVID-19; Z20.828 Contact with and (suspected) exposure to other viral communicable diseases; Z79.899 Other long term (current) drug therapy
CPT/HCPCS: 0241U; 80053; 83690; 83735; 84484; 85025; 99283; 99284

== ENCOUNTER 2023-05-13 16:16 | Emergency (ER) | payer MEDICAID, SELFPAY ==
--- NOTE | ~2023-05-13 | CT_ITS ---
EXAMINATION: CT ABDOMEN AND PELVIS WITH CONTRAST CLINICAL INFORMATION: Abdominal pain COMPARISON: None available. TECHNIQUE: Multidetector volumetric images were obtained from the superior aspect of the liver through the pubic symphysis following administration 85 mL of Omnipaque 350 intravenous contrast. Sagittal and coronal reformatted images were obtained on the technologist's workstation. Oral contrast: No This CT examination was performed using dose optimization techniques as appropriate, variously including the following: *Automated exposure control *Adjustment of mA and/or kV according to patient size (this includes techniques or standardized protocols for targeted exams where dose is matched to indication/reason for exam; i.e. extremities or head) *Use of iterative reconstruction technique DLP: 458 mGy-cm. FINDINGS: LUNG BASES: The visualized lung bases are unremarkable. There is mild mural thickening distal esophagus. The heart size is normal. There are multiple right lower rib fractures stabilized with plates and screws. LIVER, GALLBLADDER, AND BILIARY TREE: The liver is normal in size, shape, and attenuation. There is a 3 mm hypodensity right hepatic lobe, too small to correctly characterize. No additional lesions seen. No intrahepatic biliary ductal dilatation is present. The gallbladder is unremarkable with no evidence of radiopaque gallstones, gallbladder wall thickening, or obvious pericholecystic inflammatory changes. PANCREAS: The pancreas is unremarkable. There are peripancreatic vascular calcifications. SPLEEN: Unremarkable. ADRENAL GLANDS: Unremarkable. KIDNEYS AND URETERS: The kidneys are normal in size, shape, and attenuation. No hydronephrosis, hydroureter, or calculi seen. No perinephric stranding. There is a 2.9 x 2.7 cm simple cyst lower pole and 2.4 x 1.8 cm simple cysts lower pole left kidney. No further workup needed. No additional lesions seen BLADDER: Unremarkable. GASTROINTESTINAL TRACT: There is moderate scattered stool and gas seen throughout the colon without significant distention. The small bowel loops are normal caliber. Appendix is normal caliber. No free air or free fluid seen. ABDOMINAL WALL: No significant hernia is appreciated. LYMPH NODES: Abnormal lymph nodes seen. VASCULAR: Abdominal aorta is of normal caliber. PELVIC VISCERA: There are several phleboliths in the pelvis. OSSEOUS STRUCTURES: There are disc prostheses at L5-S1, L4-L5 for fusion with bilateral pedicular screws from L3 through S1 vertebra for posterior stabilization. There is a total right hip prosthesis as well. No aggressive lytic or sclerotic process seen. Loss of T12 vertebral height is noted. CT/CT abdomen pelvis w IV con IMPRESSION: 1. No acute intra-abdominal process seen. 2. Moderate constipation. 3. Bilateral renal cysts. Fleischner guidelines were followed.
--- NOTE | 2023-05-13 16:43 | ED_ITS ---
HPI - General Adult General Chief complaint: Nausea/Vomiting/Diarrhea Stated complaint: vomiting Time Seen by Provider: 05/13/23 18:45 Source: patient Mode of arrival: ambulatory Limitations: no limitations History of Present Illness HPI narrative: 49-year-old male past medical history of alcohol abuse withdrawal has been sober for 2 months history of hypernatremia softened itis nausea vomiting chronic pain laminectomy to his back opioid use disorder he states he has been clean since March the history of depression anxiety. Presents emergency department complaining of acute on chronic abdominal pain. The patient was seen in triage and had some labs done which are unremarkable. He denies ever having paracentesis for cirrhosis he denies any fevers or chills he did have nausea vomiting and diarrhea. Related Data Home Medications Medication Instructions Recorded Confirmed apixaban 5 mg (74 tabs) tablets in 5 mg PO BID 11/04/22 11/15/22 a dose pack (Eliquis DVT-PE Treat 30D Start) folic acid 1 mg tablet 1 mg PO DAILY 11/04/22 11/15/22 gabapentin 300 mg capsule 300 mg PO BID 11/04/22 11/15/22 lisinopril 10 mg tablet 10 mg PO DAILY 11/04/22 12/28/22 melatonin 5 mg tablet 5 mg BEDTIME 11/04/22 12/28/22 multivitamin with folic acid 400 1 tab PO DAILY 11/04/22 12/28/22 mcg tablet (Tab-A-Harper) pantoprazole 40 mg tablet,delayed 40 mg PO BID 11/04/22 12/28/22 release thiamine HCl (vitamin B1) 100 mg 100 mg PO DAILY 11/04/22 11/15/22 tablet aspirin 81 mg tablet,delayed 81 mg PO DAILY 11/15/22 11/15/22 release nicotine (polacrilex) 4 mg gum 4 mg PO Q1-2H PRN Nicotine Cravings 11/15/22 11/15/22 ferrous sulfate 325 mg (65 mg 325 mg PO TID 12/28/22 12/28/22 iron) tablet,delayed release nicotine (polacrilex) 4 mg gum 4 mg PO Q4H 12/28/22 12/28/22 Previous Rx's Medication Instructions Recorded apixaban 5 mg tablet (Eliquis) 5 mg PO BID #60 tabs 12/28/22 metoclopramide HCl 10 mg tablet 10 mg PO Q6H PRN nausea and 05/04/23 (Reglan) vomiting #90 tabs pantoprazole 40 mg tablet,delayed 40 mg PO DAILY #90 tabs 05/04/23 release (Protonix) sucralfate 1 gram tablet 1 g PO BID #60 tabs 05/04/23 aluminum hydrox-magnesium carb 254 10 ml PO QID PRN dyspepsia #355 mL 05/14/23 mg-237.5 mg/5 mL oral suspension (Gaviscon Extra Strength) Allergies Allergy/AdvReac Type Severity Reaction Status Date / Time bee pollen [BEE STINGS] Allergy Severe SWELLING Verified 11/04/22 14:19 Review of Systems 2 Review of Systems: Review of systems: General: Patient denies any fever chills recent illness or falls Musculoskeletal: Denies back pain or body aches or other injuries HEENT: denies headache, runny nose, ear pain Respiratory: denies shortness of breath, cough Cardiovascular: no chest pain or palpitations : denies dysuria, frequency Abdomen: nausea vomiting abdominal pain Extremities: no swelling, no pain Skin: no diaphoresis Yes all other systems are reviewed and are negative PMFSH Past Medical History Medical History Substance abuse EtOH dependence Hypertension Surgical History History of total right hip replacement Social History Social History Alcohol intake: former Patient Tobacco Use Status: Former Tobacco user Substance Use Type: Heroin Advance Directives: No Advance Directives Information Provided: No service: No Current occupational status: unemployed Physical Exam ED Vital Signs: Vital Signs - 24 hr 05/13/23 16:44 Temperature 98.4 F Pulse Rate 73 Respiratory Rate 14 Blood Pressure 94/62 Pulse Oximetry 97 Oxygen Delivery Method Room Air BMI result Body Mass Index 19.3 General: Well-appearing well-nourished in no signs of distress HEENT: Normocephalic atraumatic Neck: No signs of JVD, no masses no tenderness or lymphadenopathy Cardiovascular: Regular rate and rhythm Respiratory: Clear to auscultation bilaterally Abdomen: Soft tender allover the abdomen no masses Extremities: Normal pedal pulses no signs of edema Skin: Dry warm no rashes Back: No tenderness full ROM Course Course Course Narrative: This is an RME: Additional HPI, ROS, PE not included below will be deferred to primary provider. 57 year old male hx of alcohol abuse ( states he quit in march), opiate use d/o, presenting w/ nausea, vomiting blood, fatigue, malaise X few weeks just doesnt feel right. Last vomited 2 hours ago. On [facility] Plan- labs, urine Reevaluation(s) Reevaluation #1: [address] at this time signed out Reevaluation #2: 00:28 Dr. Krishnamurthy's Note I assumed care of this patient from my colleague Dr. Lee at 21:00 hours. Patient is a 57-year-old male with history of esophagitis, alcohol use disorder, heroin use disorder -currently sober since March 2023 who presents emergency department for evaluation of abdominal pain times 10 days. Patient points to his epigastric area when asked to localize the pain, he describes the pain is constant, sharp pain which is worse with eating. Patient does have associated nausea and vomiting. Examination did reveal periumbilical and epigastric tenderness My interpretation patient's laboratory evaluation is as follows: microcytic anemia with an H&H of 9.5 and 30.8 - similar values in the past. Glucose elevated 132. LFTs normal. Lipase normal. CT scan abdomen pelvis with IV contrast did not reveal a clear cause for his pain. patient's presentation is most likely consistent with gastritis /esophagitis. Patient but minimal relief with Haldol 5 mg IV and morphine 4 mg IV. I ordered a GI cocktail of Maalox 30 cc, viscous lidocaine 10 cc and 10 cc. Patient does take pantoprazole and Carafate. I told the keep taking these medications and I added Gaviscon 10 mL, 4 times a day as needed for pain. He was given printed and verbal instructions discharged home Time: 00:28 Medications Administered Discontinued Medications Generic Name Dose Route Start Last Admin Trade Name Chrisq PRN Reason Stop Dose Admin Famotidine 20 mg 05/13/23 18:58 05/13/23 20:57 Famotidine/Pf 20 Mg/2 Ml Vial IVPUSH 05/13/23 18:59 20 mg ONCE ONE Administration Haloperidol Lactate 5 mg 05/13/23 18:58 05/13/23 20:57 Haloperidol Lactate 5 Mg/Ml Vial IVPUSH 05/13/23 18:59 5 mg ONCE ONE Administration Sodium Chloride 1,000 mls @ 999 mls/hr 05/13/23 19:00 05/13/23 21:00 Ns IV 05/13/23 20:00 999 mls/hr .Q1H1M JEAN Administration Iohexol 100 ml 05/13/23 21:11 05/13/23 21:12 Iohexol 350 Mg/Ml 100 Ml Infus..Btl IV 05/13/23 21:12 85 ml ONCE ONE Administration Morphine Sulfate 4 mg 05/13/23 18:58 05/13/23 20:57 Morphine Sulfate 4 Mg/Ml Cartridge IVPUSH 05/13/23 18:59 4 mg ONCE ONE Administration Protocol Medical Decision Making Medical Decision Making [facility] Narrative: Patient takes is tender again patient fluids morphine and Haldol labs so far are remarkable for Differential Diagnosis Differential Diagnoses: The differential diagnosis associated with the presentation includes Inked is patient has spontaneous bacterial peritonitis while the patient's belly is tender he has never had a paracentesis has no obvious fluid in the belly this could be acute surgical abdomen or gastritis or his acute on chronic pain. Pancreatitis gastritis and had cirrhosis on the differential. Admission/Observation Consideration of admission/observation: Escalation of care including admission/observation considered Lab Data [facility] Lab Attestation statement: I reviewed the patient's lab results. 05/13/23 17:18 05/13/23 17:18 Labs: Lab Results 05/13/23 Range/Units 17:18 WBC 6.7 (4.8-10.8) X10*3/uL RBC 4.08 L (4.60-5.80) X10*6/uL Hgb 9.5 L (14.0-18.0) g/dl Hct 30.8 L (42.0-52.0) % MCV 75.5 L (80.0-98.0) fL MCH 23.3 L (27.0-33.0) pg MCHC 30.8 L (31.0-36.0) g/dl RDW 18.9 H (11.0-16.0) % Plt Count 268 (160-400) X10*3/uL MPV 9.6 (9.4-12.4) fL Immature Gran % (Auto) 0.3 (0.0-0.4) % Neut % (Auto) 54.2 (45-73) % Lymph % (Auto) 35.2 (20-40) % Wilson % (Auto) 6.4 (2-11) % Eos % (Auto) 2.7 (0-4) % Baso % (Auto) 1.2 (0-2) % Lymph # (Auto) 2.4 (1.2-4.9) X10*3/uL Wilson # (Auto) 0.4 (0.1-1.2) X10*3/uL Eos # (Auto) 0.2 (0.0-0.4) X10*3/uL Baso # (Auto) 0.1 (0.0-0.2) X10*3/uL Abs Immat Gran (auto) 0.02 (0.00-0.03) X10*3/uL Absolute Neuts (auto) 3.6 (2.0-8.3) x10*3/uL Absolute Nucleated RBC 0.000 (0.0-0.012) X10*3/uL Nucleated RBC % (auto) 0.0 (0.0-0.2) /100WBC Sodium 138 (135-145) mmol/L Potassium 5.2 H D (3.3-5.1) mmol/L Chloride 104 (96-108) mmol/L Carbon Dioxide 29 (22-29) mmol/L Anion Gap 10 L (12-20) BUN 13 (9-16) mg/dL Creatinine 1.04 (0.5-1.4) mg/dL Estim Creat Clear Calc 68.6 Estimated GFR > 60 Random Glucose 132 H (60-115) mg/dL Calcium 9.5 (8.4-10.2) mg/dL Magnesium 2.0 (1.6-2.6) mg/dL Total Bilirubin 0.3 (0.0-1.0) mg/dL AST 13 (5-37) U/L ALT 6 (0-40) U/L Alkaline Phosphatase 76 (39-117) U/L Total Protein 7.3 (6.5-8.0) g/dL Albumin 4.0 (3.5-5.0) g/dL Lipase 21 (8-78) U/L Urine Opiates Screen Not Detected (Not Detect) Urine Fentanyl Screen Not Detected (Not Detect) Ur Barbiturates Screen Not Detected (Not Detect) Ur Phencyclidine Scrn Not Detected (Not Detect) Ur Amphetamines Screen Not Detected (Not Detect) U Benzodiazepines Scrn Not Detected (Not Detect) Urine Cocaine Screen Not Detected (Not Detect) U Marijuana (THC) Screen Not Detected (Not Detect) Ethyl Alcohol < 10 mg/dL Independent Interpretation I performed an independent interpretation of an: EKG and Rhythm Strip Radiology Impression Discussion of test interpretation with radiology: I have reviewed the radiologist's reading. Radiologist Impression: CT abdomen pelvis w IV con IMPRESSION: 1. No acute intra-abdominal process seen. 2. Moderate constipation. 3. Bilateral renal cysts. Fleischner guidelines were followed. Dictated By: Tez Oliver MD Discharge Plan Discharge Clinical Impression: Abdominal pain Gastritis Qualifiers: Gastritis type: alcoholic Chronicity: acute Gastritis bleeding: without bleeding Qualified Code(s): K29.20 - Alcoholic gastritis without bleeding Patient Disposition: Home, Self-Care Instructions: Gastritis (ED) Additional Instructions: your blood work was unremarkable except for mild anemia the CT scan of your abdomen pelvis did not reveal a clear cause for your pain. Your pain is most likely caused by inflammation in your stomach from too much acid ( gastritis). Continue taking your pantoprazole, this is a medication that should softer acid production and will hopefully help your stomach heal. Take extra-strength Gaviscon 10 mL (2 tsp) 4 times a day as needed for abdominal pain. Follow-up with your doctor in 2 days. Please return to the emergency department if your symptoms get worse or if you develop any symptoms that are concerning to you. Prescriptions: New Gaviscon Extra Strength 254-237.5 mg/5 mL suspension 10 ml PO QID PRN (Reason: dyspepsia) Qty: 355 0RF No Action lisinopril 10 mg tablet 10 mg PO DAILY gabapentin 300 mg capsule 300 mg PO BID melatonin 5 mg tablet 5 mg BEDTIME thiamine HCl (vitamin B1) 100 mg tablet 100 mg PO DAILY pantoprazole 40 mg tablet,delayed release (DR/EC) 40 mg PO BID folic acid 1 mg tablet 1 mg PO DAILY multivitamin with folic acid [Tab-A-Harper] 400 mcg tablet 1 tab PO DAILY Eliquis DVT-PE Treat 30D Start 5 mg (74 tabs) tablets,dose pack 5 mg PO BID nicotine (polacrilex) 4 mg gum 4 mg PO Q4H ferrous sulfate 325 mg (65 mg iron) tablet,delayed release (DR/EC) 325 mg PO TID Eliquis 5 mg tablet 5 mg PO BID Qty: 60 0RF nicotine (polacrilex) 4 mg gum 4 mg PO Q1-2H PRN (Reason: Nicotine Cravings) aspirin 81 mg Tablet,Delayed Release (Dr/Ec) 81 mg PO DAILY pantoprazole [Protonix] 40 mg tablet,delayed release (DR/EC) 40 mg PO DAILY Qty: 90 0RF metoclopramide HCl [Reglan] 10 mg tablet 10 mg PO Q6H PRN (Reason: nausea and vomiting) Qty: 90 0RF sucralfate 1 gram tablet 1 g PO BID Qty: 60 0RF
[2023-05-13 16:44] VITALS: BP 94/62; PULSE 73; RESP 14; TEMP 36.9; O2SAT 97; BMI 19.3
--- NOTE | 2023-05-13 17:21 | MHC.EDTECH ---
Patient blood drawn and urine sample collected and sent to lab .
[2023-05-13 17:23] LABS: MANUAL DIFF FLAG NO
[2023-05-13 17:29] LABS: Basophils Absolute Auto 0.1 X10*3/uL (0.0-0.2); Basophils Percent Auto 1.2 % (0-2); Eosinophils Absolute Auto 0.2 X10*3/uL (0.0-0.4); Eosinophils Percent Auto 2.7 % (0-4); Hematocrit 30.8 % (42.0-52.0); Hemoglobin 9.5 g/dl (14.0-18.0); Imm Gran Abs Auto 0.02 X10*3/uL (0.00-0.03); Imm Gran Pct Auto 0.3 % (0.0-0.4); Lymphocytes Absolute Auto 2.4 X10*3/uL (1.2-4.9); Lymphocytes Percent Auto 35.2 % (20-40); Mean Corpuscular HGB Conc 30.8 g/dl (31.0-36.0); Mean Corpuscular Hemoglobin 23.3 pg (27.0-33.0); Mean Corpuscular Volume 75.5 fL (80.0-98.0); Mean Platelet Volume 9.6 fL (9.4-12.4); Monocytes Absolute Auto 0.4 X10*3/uL (0.1-1.2); Monocytes Percent Auto 6.4 % (2-11); Neutrophils Absolute Auto 3.6 x10*3/uL (2.0-8.3); Neutrophils Percent Auto 54.2 % (45-73); Platelet Count 268 X10*3/uL (160-400); Red Blood Count 4.08 X10*6/uL (4.60-5.80); Red Cell Distribution Width 18.9 % (11.0-16.0); White Blood Count 6.7 X10*3/uL (4.8-10.8)
[2023-05-13 17:33] LABS: Amphetamine Screen Urine Not Detected (Not Detect); Barbiturates, Urine Not Detected (Not Detect); Benzodiazepines Screen Urine Not Detected (Not Detect); Cannabinoid Screen Urine Not Detected (Not Detect); Cocaine Screen Urine Not Detected (Not Detect); Fentanyl, urine Not Detected (Not Detect); Opiate Screen Urine Not Detected (Not Detect); Phencyclidine Screen Urine Not Detected (Not Detect)
[2023-05-13 17:44] LABS: Alanine Aminotransferase 6 U/L (0-40); Alkaline Phosphatase 76 U/L (39-117); Anion Gap 10 (12-20); Aspartate Amino Transferase 13 U/L (5-37); Bilirubin Total 0.3 mg/dL (0.0-1.0); Blood Urea Nitrogen 13 mg/dL (9-16); Calcium 9.5 mg/dL (8.4-10.2); Carbon Dioxide 29 mmol/L (22-29); Chloride 104 mmol/L (96-108); Creatinine Clr Calc Pharmacy 68.6; Estimated Glomerular Filt Rate > 60; Glucose Random 132 mg/dL (60-115); Lipase 21 U/L (8-78); Potassium 5.2 mmol/L (3.3-5.1); Sodium 138 mmol/L (135-145); Total Protein 7.3 g/dL (6.5-8.0)
[2023-05-13 17:45] LABS: Ethanol < 10 mg/dL
--- NOTE | 2023-05-13 20:05 | PC.NURSE ---
UNABLE TO OBTAIN iv ACCESS, NOTIFIED
[2023-05-13] MEDS: Famotidine/PF 20 MG/2 ML VIAL IVPUSH (20:57)
[2023-05-13] MEDS: Haloperidol Lactate 5 MG/ML VIAL IVPUSH (20:57)
[2023-05-13] MEDS: Morphine Sulfate 4 MG/ML CARTRIDGE IVPUSH (20:57)
[2023-05-13] MEDS: 0.9 % Sodium Chloride 1,000 ML 999 ML IV (21:00)
[2023-05-13] MEDS: iohexoL 350 MG/ML 100 ML INFUS..BTL IV (21:12)
[2023-05-14] MEDS: Lidocaine HCl Viscous 2 % 15 ML SOLUTION 10 ML PO (01:12)
[2023-05-14] MEDS: Magnesium Hydrox/Alum Hydrox 30 ML ORAL.SUSP PO (01:12)
[2023-05-14] MEDS: PHENobarb/Hyoscy/Atropine/Scop 10 ML ELIXIR PO (01:12)
== END 2023-05-14 01:18 | disposition home or self-care (01) ==
PROVIDERS: Physician Assistant; Emergency Provider Emergency Medicine Emergency Medical Services; PCP Internal Medicine
DX: K29.20 Alcoholic gastritis without bleeding (principal); R11.2 Nausea with vomiting, unspecified; R19.7 Diarrhea, unspecified; Z87.891 Personal history of nicotine dependence; Z79.899 Other long term (current) drug therapy
CPT/HCPCS: 36415; 74177; 80053; 80307; 83690; 83735; 85025; 96361; 96374; 96375; 99284; J2270; Q9967

== ENCOUNTER 2023-05-19 09:24 | Outpatient (REF) | payer MEDICAID, SELFPAY ==
[2023-05-19 14:59] LABS: Alanine Aminotransferase 8 U/L (0-40); Albumin Level 4.4 g/dL (3.5-5.0); Alkaline Phosphatase 70 U/L (39-117); Anion Gap 14 (12-20); Aspartate Amino Transferase 20 U/L (5-37); Bilirubin Direct 0.2 mg/dL (0.0-0.5); Bilirubin Total 0.3 mg/dL (0.0-1.0); Blood Urea Nitrogen 19 mg/dL (9-16); Calcium 9.8 mg/dL (8.4-10.2); Carbon Dioxide 29 mmol/L (22-29); Chloride 101 mmol/L (96-108); Estimated Glomerular Filt Rate > 60; Glucose Random 83 mg/dL (60-115); Potassium 4.2 mmol/L (3.3-5.1); Sodium 140 mmol/L (135-145)
[2023-05-19 15:30] LABS: TSH reflex Free T4 0.51 uIU/mL (0.32-4.0)
[2023-05-20 04:56] LABS: ~HepC Num1 12.36 S/CO (0.00-0.79); ~Hepatitis C Antibody Reactive (Nonreactive)
[2023-05-20 12:08] LABS: RPR Rapid Plasma Reagin NON-REACTIVE (NON-REACTIVE)
[2023-05-24 12:08] LABS: HIV RNA PCR Qn Copies Not Detected Copies/mL; HIV RNA PCR Qn Log Copies Not Detected Log cps/mL
[2023-05-24 13:53] LABS: HCV Log PCR <1.18 NOT DETECTED Log IU/mL (NOT DETECTED); HepC Viral Load <15 NOT DETECTED IU/mL (NOT DETECTED)
== END 2023-05-19 09:25 | disposition home or self-care (01) ==
LOC: HO.CHCLDS 09:24
PROVIDERS: Visit Provider Internal Medicine
DX: Z11.4 Encounter for screening for human immunodeficiency virus [HIV] (principal); Z11.3 Encounter for screening for infections with a predominantly sexual mode of transmission; F11.20 Opioid dependence, uncomplicated; F51.05 Insomnia due to other mental disorder; F99 Mental disorder, not otherwise specified; I10 Essential (primary) hypertension; R13.10 Dysphagia, unspecified; K20.90 Esophagitis, unspecified without bleeding; R11.2 Nausea with vomiting, unspecified; R63.4 Abnormal weight loss; E46 Unspecified protein-calorie malnutrition; Z79.01 Long term (current) use of anticoagulants
CPT/HCPCS: 36415; 80048; 80076; 84443; 86592; 86803; 87522; 87536; 87900; 99202

== ENCOUNTER 2023-05-19 10:07 | Outpatient (AMB) | payer MEDICAID, SELFPAY ==
--- NOTE | 2023-05-19 10:15 | MHC.OFFVIS ---
Intake Vital Signs 05/19/23 10:17 Height 5 ft 11 in Weight 134 lb 7.712 oz BMI 18.8 BP 123/68 Blood Pressure Location Lt brachial Position Sitting Pulse 81 Intake Visit Reasons: erosive esophagitis Intake Note: Yoshi presents in the office as a new patient for erosive esophigitis. CC: He is having issues with keeping food down and states he is losing weight. Allergies bee pollen [BEE STINGS] Allergy (Severe, Verified 05/19/23 10:18) SWELLING HPI HPI Comments History of Present Illness Details THis is a 57y.o M with PMH of polysubstance use disorder who is now sober since 03/31/23 and in a transitional home, hx of PE 10/2022, who is here for dysphagia. Has had difficulty swallowing for almost 6 months now. Was seen in the hospital by GI when he was also noted to have esophageal wall thickening of distal esophagus on CT Abd/pel November 2022 and at that time managed as erosive esophagitis with antisecretory therapy. However symptoms have been progressing since then. For the past 3-4 weeks dysphagia has gotten much worse, where diet is now limited to soft solids and liquids only such as oatmeal, yogurt, juices. If he tries to eat anything solid, regurgitates it immediately. Reports losing 40 lbs in 6 months. Has never had an upper endoscopy. Esophageal wall thickening again demonstrated on CT Abd/pel from a week ago. As aforementioned, has prev hx of smoking, etOH use, heroin use which he all quit 03/31 and is in a transitional home now to complet the recovery. [facility] Medical History Substance abuse EtOH dependence Hypertension Surgical History History of total right hip replacement Family History Father Stomach cancer Social History Alcohol intake: former Patient Tobacco Use Status: Former Tobacco user Substance Use Type: Heroin service: No Current occupational status: unemployed Review of Systems Const All systems reviewed & are unremarkable except as noted in HPI and below Physical Exam Vital Signs: Last Vital Signs Pulse 81 05/19/23 10:17 BP 123/68 05/19/23 10:17 BMI result Body Mass Index 18.8 Gen appear: NAD, frail appearing HEENT: nonicteric, no cervical lymphadenopathy Chest: CTA CVS: Regular S1/S2 Abd: soft, nontender, nondistended, bowel sounds + Ext: no peripheral edema Neuro: A/Ox3, noted to move all extremities spontaneously Psych: interacting appropriately Assessment & Plan Assessment & Plan (1) Dysphagia: Code(s): R13.10 - Dysphagia, unspecified (2) Esophagitis: Code(s): K20.90 - Esophagitis, unspecified without bleeding (3) Nausea & vomiting: Code(s): R11.2 - Nausea with vomiting, unspecified (4) Unintentional weight loss: Code(s): R63.4 - Abnormal weight loss (5) 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 Other differentials include erosive esophagitis, peptic stricture, ring/web, dysmotility etc. Plan: - Urgent EGD to be set up in the next few weeks - Pt advised to HOLD the eliquis x 2 days prior to EGD (pt reports taking this for heart disease , but appears to be for PE diagnosed October 2022) - Cont liquid diet until EGD. Ensure shakes BID Rxed for severe malnutrition - Cont protonix and sucralfate - Pt also due for colo due to age and underlying anemia, but deferred for now in favor of more urgent medical issue as above Follow up after EGD Medications: New food supplemt, lactose-reduced (Ensure High Protein oral liquid) 1 ea PO BID 30 days 14,220 mL 1RF R13.10 - Dysphagia, unspecified Coding Level of Care Code New Pt Level 5 (22994) Diagnoses Dysphagia R13.10 Esophagitis K20.90 Nausea & vomiting R11.2 Unintentional weight loss R63.4 Chronic anticoagulation Z79.01 Malnutrition E46
[2023-05-19 10:17] VITALS: BP 123/68; PULSE 81; BMI 18.8
== END 2023-05-19 10:47 | disposition home or self-care (01) ==
PROVIDERS: PCP Internal Medicine; Visit Provider Internal Medicine
DX: R13.10 Dysphagia, unspecified (principal); K20.90 Esophagitis, unspecified without bleeding; R11.2 Nausea with vomiting, unspecified; R63.4 Abnormal weight loss; Z79.01 Long term (current) use of anticoagulants; E46 Unspecified protein-calorie malnutrition
CPT/HCPCS: 99204

== ENCOUNTER 2023-05-24 11:52 | Day surgery (SDC) | payer MEDICAID, SELFPAY ==
[2023-05-24 12:24] VITALS: BP 118/77; PULSE 60; RESP 18; TEMP 36.6; O2SAT 99; BMI 19.5
--- NOTE | 2023-05-24 12:45 | P.CONAN_ITS ---
[facility] Active Problems Active Problems: All Active Problems (Updated 05/19/23 @ 12:06 by Ashley Brewer MD) Malnutrition (Acute) Chronic anticoagulation (Acute) Unintentional weight loss (Acute) Dysphagia (Acute) Esophagitis (Acute) Hyponatremia (Acute) Alcohol abuse with withdrawal (Acute) Intractable nausea and vomiting (Acute) Abdominal pain (Acute) Nausea & vomiting (Acute) Chronic pain syndrome (Acute) Postlaminectomy syndrome, lumbar (Acute) Opioid use disorder, severe, dependence (Acute) Acute alcohol abuse (Acute) Bronchitis (Acute) Acidosis, lactic (Acute) Depression (Acute) Suicidal ideation (Acute) Post-traumatic osteoarthritis of right knee (Acute) Valgus deformity, not elsewhere classified, right knee (Acute) Retained orthopedic hardware (Acute) Past Medical History Medical History Substance abuse EtOH dependence Hypertension Family History Family History Father Stomach cancer Family history of problems with anesthesia: No Surgical History Surgical History History of total right hip replacement History of Problems with Anesthesia: No Social History Social History Alcohol intake: former Patient Tobacco Use Status: Former Tobacco user Substance Use Type: Heroin Advance Directives: No Advance Directives Information Provided: Yes service: No Current occupational status: unemployed Meds Allergies Allergy/AdvReac Type Severity Reaction Status Date / Time bee pollen [BEE STINGS] Allergy Severe SWELLING Verified 05/19/23 10:18 Active Medications: Current Medications Lactated Ringer's (Lr) 1,000 mls @ 50 mls/hr IVCONT .Q20H [facility] Home Medications Medication Instructions Recorded Confirmed Last Taken Type folic acid 1 mg tablet 1 mg PO DAILY 11/04/22 11/15/22 11/03/22 History gabapentin 300 mg capsule 300 mg PO BID 11/04/22 11/15/22 11/04/22 History lisinopril 10 mg tablet 10 mg PO DAILY 11/04/22 12/28/22 11/04/22 History melatonin 5 mg tablet 5 mg BEDTIME 11/04/22 12/28/22 11/03/22 History thiamine HCl (vitamin B1) 100 mg 100 mg PO DAILY 11/04/22 11/15/22 11/04/22 History tablet aspirin 81 mg tablet,delayed 81 mg PO DAILY 11/15/22 11/15/22 Unknown History release ferrous sulfate 325 mg (65 mg 325 mg PO TID 12/28/22 12/28/22 Unknown History iron) tablet,delayed release nicotine (polacrilex) 4 mg gum 4 mg PO Q4H 12/28/22 12/28/22 Unknown History acamprosate 333 mg tablet,delayed 666 mg PO TID 05/19/23 Unknown History release duloxetine 30 mg capsule,delayed 30 mg PO BID 05/19/23 Unknown History release hydroxyzine HCl 25 mg tablet 25 mg PO TID 05/19/23 Unknown History Exam Exam Date and Time: May 24, 2023 1245 Height,Weight and Vital Signs: Height 5 ft 11 in Weight 63.503 kg Last Vital Signs Temp 97.8 F 05/24/23 12:24 Pulse 60 05/24/23 12:24 Resp 18 05/24/23 12:24 BP 118/77 05/24/23 12:24 Pulse Ox 99 05/24/23 12:24 O2 Del Method Room Air 05/24/23 12:24 Airway Mallampati Class: II TM Dist: >3cm Neck ROM: Full Denture: Upper Heart: rrr Lungs: cta Assessment and Plan Assessment Anesthesia Assessment: Anesthesia Plan Discussed and Chart Reviewed Final Anesthetic Review Family History of Problems with Anesthesia: No History of Problems with Anesthesia: No NPO: Yes ASA Class: III Final Preanesthetic Review: No Changes in Pt Med Stat, Meds/Allgs Chart Reviewed and Consent Obtained/Reviewed Patient Risk: Intermediate Procedure Risk: Intermediate Anesthetic Plan Anesthetic Plan: MAC: Disposition: Standard PACU
--- NOTE | 2023-05-24 12:48 | MHC.SHP ---
Pre-Procedural Eval Section A Date of Service: 05/24/23 The patient is an INPATIENT: No Changes since office visit: Yes Patient answered all questions; No Cold of Flu in the past 2 weeks, No New Medical Problems and No Changes in Medication The History & Physical has been completed within 30 days and I have reviewed it.: Yes Section B Chief Complaint: Dysphagia, unspecified Allergies: Allergies Allergy/AdvReac Type Severity Reaction Status Date / Time bee pollen [BEE STINGS] Allergy Severe SWELLING Verified 05/19/23 10:18 Plan Diagnosis/Plan: Unchanged I have reviewed the history and physical and performed a pertinent physical examination on my patient. No changes have occurred unless specified. Time Spent With Patient Time: Total time managing care of this patient today ____ minutes.
--- NOTE | 2023-05-24 13:49 | W.PM.OPN ---
Operative Note Operative Note Date of Service: 05/24/23 Narrative: FLEXIBLE TRANSORAL UPPER GASTROINTESTINAL ENDOSCOPY WITH BIOPSIES AND ESOPHAGEAL BALLOON DILATION Pre-op diagnosis: Dysphagia, esophageal stricture Post-op diagnosis: Esophageal ulcer, esophageal nodule/polyp, esophageal stricture Endoscopist:? Brannon Carl MD Anesthesia:?MAC Consent: Indications for the procedure and potential complications of bleeding, perforation, reaction to medications and missed diagnosis were discussed with the patient and informed consent was obtained. Instrument: Olympus GIF H 190 mid size upper endoscope Monitoring: Vital signs and clinical assessment, continuous EKG monitoring, Pulse oximetry, Carbon Dioxide monitoring and blood pressure monitoring were done throughout the procedure. Procedure: The patient was placed in the left lateral decubitis position and pre-procedure medications were administered and a bite block was placed. The mid size endoscope was inserted into the mouth and advanced under direct vision to the esophagus. It was not possible to advance further due to tight stricture. Mid size upper endoscope was removed and a pediatric upper endoscopy was inserted into the mouth and advanced under direct vision through the esophagus into the third part of duodenum. A careful inspection was made as the upper endoscope was withdrawn including a retroflexed examination of the proximal stomach; Findings and interventions are described below. Findings: Larynx: Normal Esophagus: Circumferential ulcer seen from 36 to 38 cms with thick yellow exudate. A of piece of meat was stuck in the lower esophagus which was removed with a Estrada net. Tight stricture noted at the distal esophagus at 39 cms. A 15 mm nodule/polyp at 39 cms - which was biopsied. A mid-size upper endoscope could not be passed through the stricture into the distal esophagus A pediatric upper endoscope was used to traverse the GE junction into the stomach. Biopsies were obtained from the GE junction to check for Barretts. Stomach: Mild gastric erythema. Biopsies were obtained. Grade 2 flap valve on retroflexed examination of the cardia. Duodenum: Normal bulb and descending duodenum Intervention: Biopsies as noted above Impression and Post Procedure Diagnosis: Endoscopy Findings: ESOPHAGUS: Circumferential ulcer seen from 36 to 38 cms with thick yellow exudate. A of piece of meat was stuck in the lower esophagus which was removed with a Estrada net. Tight stricture noted at the distal esophagus at 39 cms. A 15 mm nodule/polyp at 39 cms - which was biopsied. A mid-size upper endoscope could not be passed through the stricture into the distal esophagus A pediatric upper endoscope was used to traverse the GE junction into the stomach. Biopsies were obtained from the GE junction to check for Barretts. Plan: Await pathology results Patient has an appointment on 07/15/22 in the [facility] with Brannon Carl M.D. Above findings were reviewed with the patient and Esophagitis and Esophageal Dilation handouts were given in the discharge area Repeat EGD with same day colonoscopy in 3 months BIOPSIES SHOWED: A. Esophagus, ulcer, biopsy: - Ulcerated squamous mucosa; negative for malignancy; no viral changes identified. - Rare pseudohyphae and yeast forms consistent with Lizeth species present. B. GE junction, biopsy: - Cardiac-type mucosa with moderate chronic inactive inflammation; no intestinal metaplasia seen. - No squamous epithelium identified. C. Esophagus, nodule, biopsy: - Cardiac-type mucosa with moderate chronic inactive inflammation and hyperplastic changes; no intestinal metaplasia seen. - Squamous mucosa within normal limit
[2023-05-24 14:37] VITALS: BP 117/62; PULSE 67; RESP 16; TEMP 36.2; O2SAT 99
[2023-05-24 14:52] VITALS: BP 157/82; PULSE 69; RESP 20; TEMP 36.2; O2SAT 100
== END 2023-05-24 15:57 | disposition home or self-care (01) ==
PROVIDERS: PCP Internal Medicine; Visit Provider Internal Medicine Gastroenterology
PROC: 0DJ08ZZ Inspection of Upper Intestinal Tract, Via Natural or Artificial Opening Endoscopic (ICD-10-PCS; CPT 43235; principal; 2023-05-24 15:10)
DX: K22.81 Esophageal polyp (principal); K22.10 Ulcer of esophagus without bleeding; K22.2 Esophageal obstruction; R13.10 Dysphagia, unspecified; I10 Essential (primary) hypertension; R63.4 Abnormal weight loss; Z68.1 Body mass index [BMI] 19.9 or less, adult; G89.4 Chronic pain syndrome; F10.10 Alcohol abuse, uncomplicated; F11.20 Opioid dependence, uncomplicated; Z86.711 Personal history of pulmonary embolism; Z87.891 Personal history of nicotine dependence; Z79.01 Long term (current) use of anticoagulants
CPT/HCPCS: 43249; 43239; 87102; 88305; 88312; C1726; J2704

== ENCOUNTER → 2023-05-24 11:52 | Outpatient (BNV) | payer MEDICAID, SELFPAY | PROVIDERS: PCP Internal Medicine; Visit Provider Internal Medicine Gastroenterology | DX: T18.128A Food in esophagus causing other injury, initial encounter (principal); K22.10 Ulcer of esophagus without bleeding; K22.2 Esophageal obstruction | CPT/HCPCS: 43239; 43247 ==

== ENCOUNTER 2023-08-29 02:56 | Emergency (ER) | payer MEDICAID, SELFPAY ==
--- NOTE | ~2023-08-29 | CT_ITS ---
EXAMINATION: CT HEAD WITHOUT CONTRAST CT CERVICAL SPINE WITHOUT CONTRAST CLINICAL INFORMATION: Fall. Trauma. Pain. COMPARISON: 03/31/2023. TECHNIQUE: Contiguous axial imaging was performed through the head and cervical spine without intravenous administration of contrast. Sagittal and coronal reformatted images also obtained. This CT examination was performed using dose optimization techniques as appropriate, variously including the following: *Automated exposure control *Adjustment of mA and/or kV according to patient size (this includes techniques or standardized protocols for targeted exams where dose is matched to indication/reason for exam; i.e. extremities or head) *Use of iterative reconstruction technique DLP: 900 mGy-cm FINDINGS: There is cerebral volume loss with prominence of the lateral and the third ventricles. The cortical sulci are widened appropriately. The fourth ventricle and basal cisterns are normally outlined. There is mild bilateral periventricular and central white matter diminished attenuation. 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 There is no acute territorial defect, hemorrhage or midline shift. There is a stable left temporal region meningioma measuring up to 2.1 cm. Calvarium: Intact. The maxillofacial sinuses and mastoids: Clear as visualized. Cervical spine: Motion limits evaluation. There is moderate C3-C4, C4-C5 and C5-C6 disc degenerative change with loss of disc space, endplate change and posterior osteophytes associated with diffuse abtq-rr-nzldycii facet osteoarthritic hypertrophic change with multilevel gffj-vd-nkeqacdt spinal canal and neuroforaminal narrowing. No fracture seen. The soft tissues are unremarkable. Visualized upper lung wilkinson are clear. CT/CT cervical spine wo IV con IMPRESSION: HEAD: 1. No acute intracranial finding. 2. Stable left temporal region meningioma. CERVICAL SPINE: 1. No acute fracture or malalignment of the cervical spine. 2. Multilevel degenerative disc changes and facet arthropathy as described above.
--- NOTE | ~2023-08-29 | CT_ITS ---
EXAMINATION: CT HEAD WITHOUT CONTRAST CT CERVICAL SPINE WITHOUT CONTRAST CLINICAL INFORMATION: Fall. Trauma. Pain. COMPARISON: 03/31/2023. TECHNIQUE: Contiguous axial imaging was performed through the head and cervical spine without intravenous administration of contrast. Sagittal and coronal reformatted images also obtained. This CT examination was performed using dose optimization techniques as appropriate, variously including the following: *Automated exposure control *Adjustment of mA and/or kV according to patient size (this includes techniques or standardized protocols for targeted exams where dose is matched to indication/reason for exam; i.e. extremities or head) *Use of iterative reconstruction technique DLP: 900 mGy-cm FINDINGS: There is cerebral volume loss with prominence of the lateral and the third ventricles. The cortical sulci are widened appropriately. The fourth ventricle and basal cisterns are normally outlined. There is mild bilateral periventricular and central white matter diminished attenuation. 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 There is no acute territorial defect, hemorrhage or midline shift. There is a stable left temporal region meningioma measuring up to 2.1 cm. Calvarium: Intact. The maxillofacial sinuses and mastoids: Clear as visualized. Cervical spine: Motion limits evaluation. There is moderate C3-C4, C4-C5 and C5-C6 disc degenerative change with loss of disc space, endplate change and posterior osteophytes associated with diffuse qfwj-nv-wkcczufz facet osteoarthritic hypertrophic change with multilevel shxa-hy-fmijqspt spinal canal and neuroforaminal narrowing. No fracture seen. The soft tissues are unremarkable. Visualized upper lung wilkinson are clear. CT/CT head/brain wo IV con IMPRESSION: HEAD: 1. No acute intracranial finding. 2. Stable left temporal region meningioma. CERVICAL SPINE: 1. No acute fracture or malalignment of the cervical spine. 2. Multilevel degenerative disc changes and facet arthropathy as described above.
[2023-08-29 03:03] VITALS: PULSE 86; O2SAT 96; BMI 25.1
--- NOTE | 2023-08-29 03:05 | ED_ITS ---
HPI - Alcohol General Chief Complaint: Fall Stated Complaint: ETOH; fall with headstrike, +thinners Time Seen by Provider: 08/29/23 03:01 Source: patient Mode of arrival: EMS Limitations: no limitations History of Present Illness HPI narrative: Patient comes to the emergency room complaining of a fall. Patient states that he drank about a pt of alcohol today. Patient states he fell, states he hit his head but did not lose consciousness. Patient complaining of lower back pain. Otherwise, patient has no complaints. Patient came [place] ambulance [place]. Related Data Home Medications Medication Instructions Recorded Confirmed folic acid 1 mg tablet 1 mg PO DAILY 11/04/22 11/15/22 gabapentin 300 mg capsule 300 mg PO BID 11/04/22 11/15/22 lisinopril 10 mg tablet 10 mg PO DAILY 11/04/22 12/28/22 melatonin 5 mg tablet 5 mg BEDTIME 11/04/22 12/28/22 thiamine HCl (vitamin B1) 100 mg 100 mg PO DAILY 11/04/22 11/15/22 tablet aspirin 81 mg tablet,delayed 81 mg PO DAILY 11/15/22 11/15/22 release ferrous sulfate 325 mg (65 mg 325 mg PO TID 12/28/22 12/28/22 iron) tablet,delayed release nicotine (polacrilex) 4 mg gum 4 mg PO Q4H 12/28/22 12/28/22 acamprosate 333 mg tablet,delayed 666 mg PO TID 05/19/23 release duloxetine 30 mg capsule,delayed 30 mg PO BID 05/19/23 release hydroxyzine HCl 25 mg tablet 25 mg PO TID 05/19/23 Previous Rx's Medication Instructions Recorded apixaban 5 mg tablet (Eliquis) 5 mg PO BID #60 tabs 12/28/22 pantoprazole 40 mg tablet,delayed 40 mg PO DAILY #90 tabs 05/04/23 release (Protonix) sucralfate 1 gram tablet 1 g PO BID #60 tabs 05/04/23 aluminum hydrox-magnesium carb 254 10 ml PO QID PRN dyspepsia #355 mL 05/14/23 mg-237.5 mg/5 mL oral suspension (Gaviscon Extra Strength) food supplemt, lactose-reduced 1 ea PO BID 30 days #14,220 mL 05/19/23 (Ensure High Protein oral liquid) Allergies Allergy/AdvReac Type Severity Reaction Status Date / Time bee pollen [BEE STINGS] Allergy Severe SWELLING Verified 05/19/23 10:18 Review of Systems Review of Systems: Constitutional : No Weight loss, No Fever, No Chills, No Night Sweats, No Fatigue, No Malaise ENT/Mouth : No Hearing loss, No Ear Pain, No Nasal Congestion, No Sinus Pain, No Hoarseness, No sore throat, No Rhinorrhea, No Swallowing Difficulty Eyes: No Eye Pain, No Swelling, No Redness, No Foreign Body, No Discharge, No Vision Changes Cardiovascular : No Chest Pain, No SOB, No Dyspnea on Exertion, No Orthopnea, No Edema, No Palpitations Respiratory : No Cough, No Sputum, No Wheezing, No Smoke Exposure, No Dyspnea Gastrointestinal : No Nausea, No Vomiting, No Diarrhea, No Constipation, No abdominal Pain, No Hematochezia, No Melena Genitourinary : no irregular bleeding, No Dysuria, No Urinary Frequency, No Hematuria, No Urinary Incontinence, No Urgency, No Flank Pain, No Urinary Flow Changes, No Hesitancy Musculoskeletal : No joint pain, No Myalgias, No Joint Swelling Skin : No Skin Lesions, No rash Neuro : No Weakness, No Numbness, No Paresthesias, No Loss of Consciousness, No Dizziness, No Headache Psych : No Anxiety/Panic, No Depression, No SI/HI/AH/VH, admits to alcohol abuse Heme/Lymph: No Bruising, No Bleeding,No Lymphadenopathy Endocrine : No Polyuria, No Polydipsia, No Temperature Intolerance [facility] Past Medical History Medical History Substance abuse EtOH dependence Hypertension Surgical History (Updated 07/07/23 @ 10:24 by Misty Melara) Hx of endoscopy History of total right hip replacement Family History Family History Father Stomach cancer Social History Social History Alcohol intake: current Alcohol intake frequency: 0-2 drinks per day Alcohol type: hard liquor Patient Tobacco Use Status: Former Tobacco user Smoked in Last 30 Days: Yes Use of substances other than those prescribed or required for medical reasons: No Substance Use Type: Heroin Advance Directives: No Advance Directives Information Provided: No service: No Current occupational status: unemployed Physical Exam ED Vital Signs: Vital Signs - 24 hr 08/29/23 03:06 08/29/23 06:25 Temperature 97.7 F 97.3 F Pulse Rate 80 83 Respiratory Rate 12 12 Blood Pressure 127/59 L 117/68 Pulse Oximetry 95 96 Oxygen Delivery Method Room Air Room Air BMI result Body Mass Index 25.1 Const Other: Appearance: Alert. Oriented X3. No acute distress. Intoxicated but coherent Eyes: Pupils equal, round and reactive to light. ENT: Pharynx normal. Neck: On C-spine precautions, no palpable step-offs, no cervical spine tenderness CVS: Normal heart rate and rhythm. Pulses normal. Normal S1 and S2 Respiratory: No respiratory distress. Breath sounds normal. No Wheezing. No rales Abdomen: Soft and nontender. No rigidity. No distention. Skin: Skin warm and dry. Normal skin color. Normal skin turgor. Extremities: No lower extremity edema. No Lacerations. No Rash Neuro: Oriented X 3. No motor deficit. No sensory deficit. Moving all extremities. No slurred speech. CN 2 through 12 grossly intact Psych: calm, cooperative, normal affect Course Course Course Narrative: -patient's CT scan of the head neck and x-rays of the lumbar spine pending Medical Decision Making Medical Decision Making MDM Narrative: My interpretation of head CT and cervical spine CT: No intracranial bleed, no obvious cervical spine fracture or dislocation. X-ray of the lumbar spine has not been done. Not suspecting fracture any other bony abnormality. -plan: Metabolize to freedom. -sign-out given to my colleague Dr. De Luna Differential Diagnosis Differential Diagnoses: The differential diagnosis associated with the presentation includes (As above) Admission/Observation Consideration of admission/observation: Escalation of care including admission/observation considered (Patient is under physician observation, patient is still clinically intoxicated) Independent Interpretation I performed an independent interpretation of an: CT Scan Radiology Impression Discussion of test interpretation with radiology: I have reviewed the radiologist's reading. Radiologist Impression: FINDINGS: There is cerebral volume loss with prominence of the lateral and the third ventricles. The cortical sulci are widened appropriately. The fourth ventricle and basal cisterns are normally outlined. There is mild bilateral periventricular and central white matter diminished attenuation. 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 There is no acute territorial defect, hemorrhage or midline shift. There is a stable left temporal region meningioma measuring up to 2.1 cm. Calvarium: Intact. The maxillofacial sinuses and mastoids: Clear as visualized. Cervical spine: Motion limits evaluation. There is moderate C3-C4, C4-C5 and C5-C6 disc degenerative change with loss of disc space, endplate change and posterior osteophytes associated with diffuse oxdx-zy-ajbtqegn facet osteoarthritic hypertrophic change with multilevel ejly-[id number] spinal canal and neuroforaminal narrowing. No fracture seen. The soft tissues are unremarkable. Visualized upper lung wilkinson are clear. CT/CT cervical spine wo IV con IMPRESSION: HEAD: 1. No acute intracranial finding. 2. Stable left temporal region meningioma. CERVICAL SPINE: 1. No acute fracture or malalignment of the cervical spine. 2. Multilevel degenerative disc changes and facet arthropathy as described above. Critical Care Time Critical Care Time Critical Care Time: Yes Total Critical Care Time: 30 Attestation: I have personally provided critical care time. Time includes review of lab data, radiology results, discussion with consultants, and monitoring for potential decompensation. Intervention performed as documented. Discharge Plan Discharge Clinical Impression: Alcohol intoxication, Falls, Contusion Patient Disposition: Still a Patient Instructions: Abuse of Alcohol (ED) Prescriptions: No Action lisinopril 10 mg tablet 10 mg PO DAILY gabapentin 300 mg capsule 300 mg PO BID melatonin 5 mg tablet 5 mg BEDTIME thiamine HCl (vitamin B1) 100 mg tablet 100 mg PO DAILY folic acid 1 mg tablet 1 mg PO DAILY nicotine (polacrilex) 4 mg gum 4 mg PO Q4H ferrous sulfate 325 mg (65 mg iron) tablet,delayed release (DR/EC) 325 mg PO TID Eliquis 5 mg tablet 5 mg PO BID Qty: 60 0RF Hold Instructions: Resume on 05/25/23. resume taking Eliquis on 05/25/23 Gaviscon Extra Strength 254-237.5 mg/5 mL suspension 10 ml PO QID PRN (Reason: dyspepsia) Qty: 355 0RF aspirin 81 mg Tablet,Delayed Release (Dr/Ec) 81 mg PO DAILY pantoprazole [Protonix] 40 mg tablet,delayed release (DR/EC) 40 mg PO DAILY Qty: 90 0RF sucralfate 1 gram tablet 1 g PO BID Qty: 60 0RF duloxetine 30 mg capsule,delayed release(DR/EC) 30 mg PO BID hydroxyzine HCl 25 mg tablet 25 mg PO TID acamprosate 333 mg tablet,delayed release (DR/EC) 666 mg PO TID Ensure High Protein Liquid 1 ea PO BID 30 Days Qty: 43860 1RF
[2023-08-29 03:06] VITALS: BP 127/59; PULSE 80; RESP 12; TEMP 36.5; O2SAT 95
[2023-08-29 06:25] VITALS: BP 117/68; PULSE 83; RESP 12; TEMP 36.3; O2SAT 96
--- NOTE | 2023-08-29 07:20 | PC.NURSE ---
this RN resumed care of pt at this time. pt resting comfortably in no apparent distress. respirations even and unlabored. call michel placed within reach.
--- NOTE | 2023-08-29 08:45 | PC.NURSE ---
pt awake/ambulates to the restroom w/ strong steady gait. independent w/o any devices. no sob/wob noted.
--- NOTE | 2023-08-29 09:21 | PC.NURSE ---
pt unable to be found at this time. this RN went to go speak w/ pt and he was no longer in room. pt's hat remains on cart. surrounding bathrooms checked. ED provider notified/aware.
== END 2023-08-29 10:09 | disposition left against medical advice (07) ==
PROVIDERS: Emergency Provider Emergency Medicine
DX: S00.03XA Contusion of scalp, initial encounter (principal); R51.9 Headache, unspecified; M54.2 Cervicalgia; M54.50 Low back pain, unspecified; W01.10XA Fall on same level from slipping, tripping and stumbling with subsequent striking against unspecified object, initial encounter; Y93.9 Activity, unspecified; Y92.9 Unspecified place or not applicable; Y99.8 Other external cause status; Z87.891 Personal history of nicotine dependence; Z79.899 Other long term (current) drug therapy
CPT/HCPCS: 70450; 72125; 99284

== ENCOUNTER 2023-08-29 15:55 | Emergency (ER) | payer MEDICAID, SELFPAY ==
[2023-08-29 16:10] VITALS: BP 109/64; BP 128/69; PULSE 70; PULSE 78; RESP 16; TEMP 36.9; O2SAT 98; O2SAT 99; BMI 20.4
--- NOTE | 2023-08-29 16:20 | MHC.EDTECH ---
belongings in locker #12 in the POD
--- NOTE | 2023-08-29 16:30 | ED_ITS ---
HPI - Alcohol General Chief Complaint: ETOH/Substance Use Stated Complaint: AMS Time Seen by Provider: 08/29/23 16:22 Source: patient and EMS Mode of arrival: EMS History of Present Illness HPI narrative: 57-year-old male with known alcohol use disorder is brought in by EMS after he eloped from this emergency room this morning and patient was found at the [facility], intoxicated, and informs me that he drank half a L of vodka, he reports he has had prior seizures from withdrawal and denies SI/HI and is not interested in detox. Related Data Home Medications Medication Instructions Recorded Confirmed folic acid 1 mg tablet 1 mg PO DAILY 11/04/22 11/15/22 gabapentin 300 mg capsule 300 mg PO BID 11/04/22 11/15/22 lisinopril 10 mg tablet 10 mg PO DAILY 11/04/22 12/28/22 melatonin 5 mg tablet 5 mg BEDTIME 11/04/22 12/28/22 thiamine HCl (vitamin B1) 100 mg 100 mg PO DAILY 11/04/22 11/15/22 tablet aspirin 81 mg tablet,delayed 81 mg PO DAILY 11/15/22 11/15/22 release ferrous sulfate 325 mg (65 mg 325 mg PO TID 12/28/22 12/28/22 iron) tablet,delayed release nicotine (polacrilex) 4 mg gum 4 mg PO Q4H 12/28/22 12/28/22 acamprosate 333 mg tablet,delayed 666 mg PO TID 05/19/23 release duloxetine 30 mg capsule,delayed 30 mg PO BID 05/19/23 release hydroxyzine HCl 25 mg tablet 25 mg PO TID 05/19/23 Previous Rx's Medication Instructions Recorded apixaban 5 mg tablet (Eliquis) 5 mg PO BID #60 tabs 12/28/22 pantoprazole 40 mg tablet,delayed 40 mg PO DAILY #90 tabs 05/04/23 release (Protonix) sucralfate 1 gram tablet 1 g PO BID #60 tabs 05/04/23 aluminum hydrox-magnesium carb 254 10 ml PO QID PRN dyspepsia #355 mL 05/14/23 mg-237.5 mg/5 mL oral suspension (Gaviscon Extra Strength) food supplemt, lactose-reduced 1 ea PO BID 30 days #14,220 mL 11/08/23 (Ensure High Protein oral liquid) Allergies Allergy/AdvReac Type Severity Reaction Status Date / Time bee pollen [BEE STINGS] Allergy Severe SWELLING Verified 05/19/23 10:18 Review of Systems 2 Review of Systems: Pertinent positives and negatives as stated in [facility] Past Medical History Source: nursing notes reviewed Medical History Substance abuse EtOH dependence Hypertension Surgical History Hx of endoscopy History of total right hip replacement Family History Family History Father Stomach cancer Social History Social History Alcohol intake: current Alcohol intake frequency: 3 or more drinks per day Alcohol type: hard liquor Patient Tobacco Use Status: Former Tobacco user Smoked in Last 30 Days: No Use of substances other than those prescribed or required for medical reasons: No Substance Use Type: Heroin Advance Directives: No Advance Directives Information Provided: No service: No Current occupational status: unemployed Physical Exam ED Vital Signs: Vital Signs - 24 hr 08/29/23 16:10 Temperature 98.5 F Pulse Rate 78 Respiratory Rate 16 Blood Pressure 128/69 Pulse Oximetry 98 Oxygen Delivery Method Room Air BMI result Body Mass Index 20.4 VITAL SIGNS: Reviewed. GENERAL: Well developed, well nourished, in no acute distress. HEAD: Normocephalic/atraumatic EYES: PERRLA, EOMI EARS: Ext canals without abnormality NOSE: Nares patent bilateral OROPHARYNX: no oral lesions noted, posterior pharynx clear NECK: Supple, no adenopathy LUNGS: Normal breath sounds. No adventitious sounds or accessory muscle use. SpO2<98> CARDIOVASCULAR: Regular rate and rhythm without noted murmurs ABDOMEN: Soft, non-tender, non-distended with bowel sounds. MUSCULOSKELETAL: No tenderness, deformities, or effusions noted on gross inspection. EXTREMITIES: No cyanosis, clubbing or edema. SKIN: Inspection of the skin reveals no rashes NEUROLOGIC: Sleeping but easily aroused and oriented x 3. Strength and sensation to light touch were grossly intact x 4. Medical Decision Making Medical Decision Making MDM Narrative: 57-year-old male with history and clinical presentation, DDX: No evidence of acute withdrawal at this time, no focal deficits noted, patient not presenting with slurred speech, will pursue basic labs and placed on a CIWA and re-evaluate intermittently for clinical sobriety. Evaluation of investigations and hematologic indices do not demonstrate leukocytosis or left shift there is stable normocytic anemia without thrombocytopenia. Chemistry indices without KOSTA/electrolyte or liver enzyme derangements. Urinalysis is negative for UTI or hematuria and UDS does not detect any illicit drugs, EtOH-282. Patient placed in physician observation because the patient needed more time for clinical sobriety. At the time observation was started the patient's vital signs were stable, patient is alert and oriented, neuro: Nonfocal, CV RRR, lungs clear Differential Diagnosis Differential Diagnoses: The differential diagnosis associated with the presentation includes Please see the discussion above Admission/Observation Consideration of admission/observation: Escalation of care including admission/observation considered Please see the discussion above Lab Data MDM Lab Attestation statement: I reviewed the patient's lab results. Please see the discussion above 08/29/23 17:46 08/29/23 17:47 Labs: Lab Results 08/29/23 08/29/23 08/29/23 Range/Units 17:46 17:47 17:53 WBC 7.4 (4.8-10.8) X10*3/uL RBC 4.65 (4.60-5.80) X10*6/uL Hgb 12.9 L D (14.0-18.0) g/dl Hct 38.6 L D (42.0-52.0) % MCV 83.0 (80.0-98.0) fL MCH 27.7 (27.0-33.0) pg MCHC 33.4 (31.0-36.0) g/dl RDW 15.4 (11.0-16.0) % Plt Count 288 (160-400) X10*3/uL MPV 9.1 L (9.4-12.4) fL Immature Gran % (Auto) 1.1 H (0.0-0.4) % Neut % (Auto) 60.3 (45-73) % Lymph % (Auto) 31.7 (20-40) % [place] % (Auto) 6.1 (2-11) % Eos % (Auto) 0.3 (0-4) % Baso % (Auto) 0.5 (0-2) % Lymph # (Auto) 2.4 (1.2-4.9) X10*3/uL [place] # (Auto) 0.5 (0.1-1.2) X10*3/uL Eos # (Auto) 0.0 (0.0-0.4) X10*3/uL Baso # (Auto) 0.0 (0.0-0.2) X10*3/uL Abs Immat Gran (auto) 0.08 H (0.00-0.03) X10*3/uL Absolute Neuts (auto) 4.5 (2.0-8.3) x10*3/uL Absolute Nucleated RBC 0.000 (0.0-0.012) X10*3/uL Nucleated RBC % (auto) 0.0 (0.0-0.2) /100WBC Sodium 141 (135-145) mmol/L Potassium 4.2 (3.3-5.1) mmol/L Chloride 102 (96-108) mmol/L Carbon Dioxide 24 (22-29) mmol/L Anion Gap 19 (12-20) BUN 18 H (9-16) mg/dL Creatinine 0.81 (0.5-1.4) mg/dL Estim Creat Clear Calc 93.3 Estimated GFR > 60 Random Glucose 68 (60-115) mg/dL Calcium 9.1 D (8.4-10.2) mg/dL Total Bilirubin 0.3 (0.0-1.0) mg/dL AST 30 (5-37) U/L ALT 18 (0-40) U/L Alkaline Phosphatase 88 (39-117) U/L Total Protein 7.7 (6.5-8.0) g/dL Albumin 4.3 (3.5-5.0) g/dL Urine Color Yellow Urine Appearance Clear Urine pH 5.0 (5.0-9.0) Ur Specific North 1.010 (1.005-1.025) Urine Protein Negative (Neg-Trace) mg/dL Urine Glucose (UA) Negative (Negative) mg/dL Urine Ketones Trace (Negative) mg/dL Urine Blood Negative (Negative) Urine Nitrite Negative (Negative) Ur Leukocyte Esterase Negative (Negative) Urine Opiates Screen Not Detected (Not Detect) Urine Fentanyl Screen Not Detected (Not Detect) Ur Barbiturates Screen Not Detected (Not Detect) Ur Phencyclidine Scrn Not Detected (Not Detect) Ur Amphetamines Screen Not Detected (Not Detect) U Benzodiazepines Scrn Not Detected (Not Detect) Urine Cocaine Screen Not Detected (Not Detect) U Marijuana (THC) Screen Not Detected (Not Detect) Ethyl Alcohol 282 mg/dL External Record Review External record reviewed: Outpatient record, Prior outpatient labs and Prior outpatient radiology Social Determinants Patient?s care significantly limited by Social Determinants of Health including: Alcoholism and drug addiction in family Critical Care Time Critical Care Time Critical Care Time: Yes Total Critical Care Time: 45 Attestation: I personally attest to this time spent taking care of the patient. Discharge Plan Discharge Clinical Impression: Alcohol intoxication, Alcohol use disorder Patient Disposition: Still a Patient Prescriptions: No Action lisinopril 10 mg tablet 10 mg PO DAILY gabapentin 300 mg capsule 300 mg PO BID melatonin 5 mg tablet 5 mg BEDTIME thiamine HCl (vitamin B1) 100 mg tablet 100 mg PO DAILY folic acid 1 mg tablet 1 mg PO DAILY nicotine (polacrilex) 4 mg gum 4 mg PO Q4H ferrous sulfate 325 mg (65 mg iron) tablet,delayed release (DR/EC) 325 mg PO TID Eliquis 5 mg tablet 5 mg PO BID Qty: 60 0RF Hold Instructions: Resume on 05/25/23. resume taking Eliquis on 05/25/23 Gaviscon Extra Strength 254-237.5 mg/5 mL suspension 10 ml PO QID PRN (Reason: dyspepsia) Qty: 355 0RF aspirin 81 mg Tablet,Delayed Release (Dr/Ec) 81 mg PO DAILY pantoprazole [Protonix] 40 mg tablet,delayed release (DR/EC) 40 mg PO DAILY Qty: 90 0RF sucralfate 1 gram tablet 1 g PO BID Qty: 60 0RF duloxetine 30 mg capsule,delayed release(DR/EC) 30 mg PO BID hydroxyzine HCl 25 mg tablet 25 mg PO TID acamprosate 333 mg tablet,delayed release (DR/EC) 666 mg PO TID Ensure High Protein Liquid 1 ea PO BID 30 Days Qty: 47052 1RF
[2023-08-29 17:50] LABS: MANUAL DIFF FLAG NO
[2023-08-29 17:59] LABS: Appearance Urine Clear; Color Urine Yellow; Glucose Urine UA Negative (Negative); Leukocyte Esterase Urine Negative (Negative); Nitrite Urine Negative (Negative); Urine Blood Negative (Negative); Urine Ketones Trace mg/dL (Negative); Urine Protein Negative (Neg-Trace)
[2023-08-29 18:05] LABS: Amphetamine Screen Urine Not Detected (Not Detect); Barbiturates, Urine Not Detected (Not Detect); Benzodiazepines Screen Urine Not Detected (Not Detect); Cannabinoid Screen Urine Not Detected (Not Detect); Cocaine Screen Urine Not Detected (Not Detect); Fentanyl, urine Not Detected (Not Detect); Opiate Screen Urine Not Detected (Not Detect); Phencyclidine Screen Urine Not Detected (Not Detect)
[2023-08-29 18:05] LABS: Alanine Aminotransferase 18 U/L (0-40); Albumin Level 4.3 g/dL (3.5-5.0); Alkaline Phosphatase 88 U/L (39-117); Anion Gap 19 (12-20); Aspartate Amino Transferase 30 U/L (5-37); Bilirubin Total 0.3 mg/dL (0.0-1.0); Blood Urea Nitrogen 18 mg/dL (9-16); Calcium 9.1 mg/dL (8.4-10.2); Carbon Dioxide 24 mmol/L (22-29); Chloride 102 mmol/L (96-108); Creatinine Clr Calc Pharmacy 93.3; Estimated Glomerular Filt Rate > 60; Glucose Random 68 mg/dL (60-115); Potassium 4.2 mmol/L (3.3-5.1); Sodium 141 mmol/L (135-145); Total Protein 7.7 g/dL (6.5-8.0)
--- NOTE | 2023-08-29 18:05 | PC.NURSE ---
pt jumped out of bed, began to ambulate to the bathroom. pt with visible discoordination in ambulating, 1x assist at his side for support and safety at this time.
[2023-08-29 18:50] LABS: Basophils Percent Auto 0.5 % (0-2); Eosinophils Percent Auto 0.3 % (0-4); Hematocrit 38.6 % (42.0-52.0); Hemoglobin 12.9 g/dl (14.0-18.0); Imm Gran Abs Auto 0.08 X10*3/uL (0.00-0.03); Imm Gran Pct Auto 1.1 % (0.0-0.4); Lymphocytes Absolute Auto 2.4 X10*3/uL (1.2-4.9); Lymphocytes Percent Auto 31.7 % (20-40); Mean Corpuscular HGB Conc 33.4 g/dl (31.0-36.0); Mean Corpuscular Hemoglobin 27.7 pg (27.0-33.0); Mean Platelet Volume 9.1 fL (9.4-12.4); Monocytes Absolute Auto 0.5 X10*3/uL (0.1-1.2); Monocytes Percent Auto 6.1 % (2-11); Neutrophils Absolute Auto 4.5 x10*3/uL (2.0-8.3); Neutrophils Percent Auto 60.3 % (45-73); Platelet Count 288 X10*3/uL (160-400); Red Blood Count 4.65 X10*6/uL (4.60-5.80); Red Cell Distribution Width 15.4 % (11.0-16.0); White Blood Count 7.4 X10*3/uL (4.8-10.8)
[2023-08-29 18:59] LABS: Ethanol 282 mg/dL
--- NOTE | 2023-08-29 21:40 | PC.NURSE ---
this rn assumed care of pt @ 1915. pt calm and cooperative. pt ambulatory to restroom. repositioned back to 18h stretcher
--- NOTE | 2023-08-30 03:05 | PC.NURSE ---
pt awake and ambulatory to restroom. pt repositioned back to bed. pt provided with warm blanket pt denies new needs at this time
[2023-08-30 05:57] VITALS: BP 146/77; PULSE 93; RESP 16; TEMP 36.9; O2SAT 96
--- NOTE | 2023-08-30 05:57 | PC.NURSE ---
vs obtained vss. pt provided with water pt verbalized no new needs at this time
--- NOTE | 2023-08-30 06:57 | PC.NURSE ---
pt calm and cooperative. pt provided with belongings from [facility]. pt ambulatory at discharge. pt provided with discharge packet verbalized understanding of discharge plan
== END 2023-08-30 07:00 | disposition home or self-care (01) ==
PROVIDERS: Emergency Provider Student in an Organized Health Care Education/Training Program
DX: F10.129 Alcohol abuse with intoxication, unspecified (principal); Y90.8 Blood alcohol level of 240 mg/100 ml or more; Z79.899 Other long term (current) drug therapy; Z71.41 Alcohol abuse counseling and surveillance of alcoholic
CPT/HCPCS: 36415; 80053; 80307; 81003; 85025; 99284

== ENCOUNTER 2023-08-31 10:29 | Emergency (ER) | payer MEDICAID, SELFPAY ==
[2023-08-31 10:46] VITALS: PULSE 84; O2SAT 96
[2023-08-31 11:00] VITALS: BP 119/76; PULSE 85; RESP 16; TEMP 36.9; O2SAT 95; BMI 19.9
--- NOTE | 2023-08-31 11:47 | ED_ITS ---
HPI - Alcohol General Chief Complaint: ETOH/Substance Use Stated Complaint: ETOH/VODKA PER EMS Time Seen by Provider: 08/31/23 11:44 Source: EMS Mode of arrival: EMS Limitations: altered mental status History of Present Illness HPI narrative: Patient found intoxicated patient with no complaints MD complaint: alcohol intoxication Last drink: Hours (ago) Chronic alcohol use: Yes Previous visits for alcohol intoxication: Yes Related Data Home Medications Medication Instructions Recorded Confirmed folic acid 1 mg tablet 1 mg PO DAILY 11/04/22 11/15/22 gabapentin 300 mg capsule 300 mg PO BID 11/04/22 11/15/22 lisinopril 10 mg tablet 10 mg PO DAILY 11/04/22 12/28/22 melatonin 5 mg tablet 5 mg BEDTIME 11/04/22 12/28/22 thiamine HCl (vitamin B1) 100 mg 100 mg PO DAILY 11/04/22 11/15/22 tablet aspirin 81 mg tablet,delayed 81 mg PO DAILY 11/15/22 11/15/22 release ferrous sulfate 325 mg (65 mg 325 mg PO TID 12/28/22 12/28/22 iron) tablet,delayed release nicotine (polacrilex) 4 mg gum 4 mg PO Q4H 12/28/22 12/28/22 acamprosate 333 mg tablet,delayed 666 mg PO TID 05/19/23 release duloxetine 30 mg capsule,delayed 30 mg PO BID 05/19/23 release hydroxyzine HCl 25 mg tablet 25 mg PO TID 05/19/23 Previous Rx's Medication Instructions Recorded apixaban 5 mg tablet (Eliquis) 5 mg PO BID #60 tabs 12/28/22 pantoprazole 40 mg tablet,delayed 40 mg PO DAILY #90 tabs 05/04/23 release (Protonix) sucralfate 1 gram tablet 1 g PO BID #60 tabs 05/04/23 aluminum hydrox-magnesium carb 254 10 ml PO QID PRN dyspepsia #355 mL 05/14/23 mg-237.5 mg/5 mL oral suspension (Gaviscon Extra Strength) food supplemt, lactose-reduced 1 ea PO BID 30 days #14,220 mL 05/19/23 (Ensure High Protein oral liquid) Allergies Allergy/AdvReac Type Severity Reaction Status Date / Time bee pollen [BEE STINGS] Allergy Severe SWELLING Verified 11/08/23 10:18 Review of Systems Review of Systems: Yes all other systems are reviewed and are negative Neurologic: Denies Sensory deficit (Neuro) [facility] Past Medical History Medical History Substance abuse EtOH dependence Hypertension Surgical History Hx of endoscopy History of total right hip replacement Family History Family History Father Stomach cancer Social History Social History Alcohol intake: current Alcohol intake frequency: 3 or more drinks per day Alcohol type: hard liquor Patient Tobacco Use Status: Former Tobacco user Substance Use Type: Heroin service: No Current occupational status: unemployed Physical Exam ED Vital Signs: Vital Signs - 24 hr 08/31/23 11:00 08/31/23 12:38 Temperature 98.5 F 99.2 F Pulse Rate 85 87 Respiratory Rate 16 18 Blood Pressure 119/76 100/60 Pulse Oximetry 95 95 Oxygen Delivery Method Room Air Room Air BMI result Body Mass Index 19.9 Const Other: intoxicated male looking chronically ill Orientation/consciousness: oriented to person Limitations: no limitations HENMT Head: Yes normal to inspection Ears: external ears normal General nose exam: Normal external nose present Mouth: Normal oral and palatal mucosa present and oropharynx normal Throat: Yes posterior oropharynx normal Eyes General: appearance normal, both eyes and all related structures Neck Neck: Yes normal visual inspection Chest Chest palpation & inspection: normal inspection of the chest Resp Auscultation: clear to auscultation bilaterally Cardio Jugular venous distension: no JVD Rate: regular rate Rhythm: regular rhythm Heart sounds: S1 normal heart sound present and S2 normal heart sound present GI Inspection: Yes normal to inspection Palpation (GI): Soft to palpation, nontender and No hepatosplenomegaly present Auscultation: normal bowel sounds General: Yes no CVA tenderness Back/Spine/Pelvis Back: no CVA tenderness Skin General skin exam: no rashes or lesions noted Neuro General: oriented to person Cranial nerves: Yes CN's II-XII intact bilaterally Motor exam (neuro): 5/5 motor strength present throughout Sensory Exam: No Sensory deficit (Neuro) Extrem General: Yes normal to inspection Psych Appearance: grossly normal Course Reevaluation(s) Reevaluation #1: Patient sober enough to answer questions and ambulate will dc home Time: 13:47 Medical Decision Making Differential Diagnosis Differential Diagnoses: The differential diagnosis associated with the presentation includes (alcohol intoxication, polysubstance abuse) Independent Historian Clinical information obtained from an independent historian. History obtained from or confirmed by: EMS External Record Review External record reviewed: Outpatient record Tests considered The following testing was considered but not selected: I considered obtaining bloods but patient with multiple prior visits Chronic Conditions Patient?s care impacted by: Other (alcoholism) Social Determinants Patient?s care significantly limited by Social Determinants of Health including: Low income and Alcoholism and drug addiction in family Medications Administered Discontinued Medications Generic Name Dose Route Start Last Admin Trade Name Freq PRN Reason Stop Dose Admin Thiamine HCl 100 mg 08/31/23 11:48 08/31/23 12:10 Thiamine Hcl 100 Mg Tablet PO 08/31/23 11:49 100 mg ONCE ONE Administration Discharge Plan Discharge Clinical Impression: Acute alcohol abuse, Alcoholic intoxication Patient Disposition: Home, Self-Care Instructions: Alcohol Use Disorder (ED) Prescriptions: No Action lisinopril 10 mg tablet 10 mg PO DAILY gabapentin 300 mg capsule 300 mg PO BID melatonin 5 mg tablet 5 mg BEDTIME thiamine HCl (vitamin B1) 100 mg tablet 100 mg PO DAILY folic acid 1 mg tablet 1 mg PO DAILY nicotine (polacrilex) 4 mg gum 4 mg PO Q4H ferrous sulfate 325 mg (65 mg iron) tablet,delayed release (DR/EC) 325 mg PO TID Eliquis 5 mg tablet 5 mg PO BID Qty: 60 0RF Hold Instructions: Resume on 05/25/23. resume taking Eliquis on 05/25/23 Gaviscon Extra Strength 254-237.5 mg/5 mL suspension 10 ml PO QID PRN (Reason: dyspepsia) Qty: 355 0RF aspirin 81 mg Tablet,Delayed Release (Dr/Ec) 81 mg PO DAILY pantoprazole [Protonix] 40 mg tablet,delayed release (DR/EC) 40 mg PO DAILY Qty: 90 0RF sucralfate 1 gram tablet 1 g PO BID Qty: 60 0RF duloxetine 30 mg capsule,delayed release(DR/EC) 30 mg PO BID hydroxyzine HCl 25 mg tablet 25 mg PO TID acamprosate 333 mg tablet,delayed release (DR/EC) 666 mg PO TID Ensure High Protein Liquid 1 ea PO BID 30 Days Qty: 63573 1RF Referrals: Physician,Nonstaff [Physician] - 5 days
[2023-08-31] MEDS: Thiamine HCL 100 MG TABLET PO (12:10)
[2023-08-31 12:38] VITALS: BP 100/60; PULSE 87; RESP 18; TEMP 37.3; O2SAT 95
--- NOTE | 2023-08-31 13:48 | PC.NURSE ---
pt attempted to elope from ED, this nurse attempted to get pt to come back in to dept, pt then walked out of dept , Madhuri Ewing (security) escorted pt back to dept
== END 2023-08-31 13:59 | disposition home or self-care (01) ==
PROVIDERS: Emergency Provider Emergency Medicine; PCP Internal Medicine
DX: F10.129 Alcohol abuse with intoxication, unspecified (principal); Y90.8 Blood alcohol level of 240 mg/100 ml or more; Z87.891 Personal history of nicotine dependence; Z79.899 Other long term (current) drug therapy
CPT/HCPCS: 99283

== ENCOUNTER 2023-09-05 12:06 | Emergency (ER) | payer MEDICAID, SELFPAY ==
[2023-09-05 12:11] VITALS: BP 142/74; BP 146/77; PULSE 88; PULSE 97; RESP 14; TEMP 36.6; O2SAT 100; O2SAT 98; BMI 20.9
[2023-09-05 12:34] LABS: MANUAL DIFF FLAG NO
[2023-09-05 12:35] LABS: Basophils Percent Auto 0.3 % (0-2); Hematocrit 32.7 % (42.0-52.0); Imm Gran Abs Auto 0.07 X10*3/uL (0.00-0.03); Imm Gran Pct Auto 0.6 % (0.0-0.4); Lymphocytes Absolute Auto 1.4 X10*3/uL (1.2-4.9); Lymphocytes Percent Auto 11.6 % (20-40); Mean Corpuscular HGB Conc 33.6 g/dl (31.0-36.0); Mean Corpuscular Hemoglobin 28.2 pg (27.0-33.0); Mean Corpuscular Volume 83.8 fL (80.0-98.0); Mean Platelet Volume 9.5 fL (9.4-12.4); Monocytes Absolute Auto 0.6 X10*3/uL (0.1-1.2); Monocytes Percent Auto 4.6 % (2-11); Neutrophils Absolute Auto 10.2 x10*3/uL (2.0-8.3); Neutrophils Percent Auto 82.9 % (45-73); Platelet Count 220 X10*3/uL (160-400); Red Cell Distribution Width 14.8 % (11.0-16.0); White Blood Count 12.3 X10*3/uL (4.8-10.8)
[2023-09-05 12:49] LABS: Alanine Aminotransferase 58 U/L (0-40); Albumin Level 3.5 g/dL (3.5-5.0); Alkaline Phosphatase 73 U/L (39-117); Anion Gap 17 (12-20); Aspartate Amino Transferase 48 U/L (5-37); Bilirubin Total 0.4 mg/dL (0.0-1.0); Blood Urea Nitrogen 13 mg/dL (9-16); Calcium 8.5 mg/dL (8.4-10.2); Carbon Dioxide 25 mmol/L (22-29); Chloride 101 mmol/L (96-108); Estimated Glomerular Filt Rate > 60; Ethanol 135 mg/dL; Glucose Random 99 mg/dL (60-115); Potassium 3.6 mmol/L (3.3-5.1); Sodium 139 mmol/L (135-145); Total Protein 6.3 g/dL (6.5-8.0)
[2023-09-05 12:51] LABS: COVID-19 Test Negative (Negative); IDNOW Serial# 152EDE1D
[2023-09-05 13:11] LABS: Appearance Urine Clear; Color Urine Yellow; Glucose Urine UA Negative (Negative); Leukocyte Esterase Urine Negative (Negative); Nitrite Urine Negative (Negative); UMIC TRIGGER UACC YES; Urine Blood Negative (Negative); Urine Ketones Trace mg/dL (Negative); Urine Protein 100 (2+) mg/dL (Neg-Trace)
[2023-09-05 13:13] LABS: Bacteria Urine None Seen (None Seen); Hyaline Casts Urine 0-2 /LPF (0-2); RBC Urine 0-2 /HPF (0-2); Squamous Epithelial Cell Urine 0-2 /HPF (0-2); WBC Urine 0-5 /HPF (0-5)
[2023-09-05 13:16] LABS: Amphetamine Screen Urine Not Detected (Not Detect); Barbiturates, Urine Not Detected (Not Detect); Benzodiazepines Screen Urine Not Detected (Not Detect); Cannabinoid Screen Urine POSITIVE (Not Detect); Cocaine Screen Urine POSITIVE (Not Detect); Fentanyl, urine POSITIVE (Not Detect); Opiate Screen Urine Not Detected (Not Detect); Phencyclidine Screen Urine Not Detected (Not Detect)
--- NOTE | 2023-09-05 13:34 | ED.GENADULT ---
HPI - General Adult General Chief complaint: Psychiatric Symptoms Stated complaint: HOMELESS ETOH Time Seen by Provider: 09/05/23 13:19 Source: patient and EMS Mode of arrival: EMS Limitations: no limitations History of Present Illness HPI narrative: 57-year-old male here stating I've made a terrible mistake. Patient reports he was at a friend's house and was drinking and made some suicidal statements to his friend with no reports of plan. His friend called 911 and patient voluntarily came here to the ER to be evaluated. Patient reports he drank about a pt of vodka today. He does drink about this much daily. He is not suicidal at this time and tells me he has no history of suicide attempts. He denies HI. Denies hallucinations. Denies any additional substance use. Not interested in detox. Not interested in speaking to agile scrum coach. No physical complaints Related Data Home Medications Medication Instructions Recorded Confirmed folic acid 1 mg tablet 1 mg PO DAILY 11/04/22 11/15/22 gabapentin 300 mg capsule 300 mg PO BID 11/04/22 11/15/22 lisinopril 10 mg tablet 10 mg PO DAILY 11/04/22 12/28/22 melatonin 5 mg tablet 5 mg BEDTIME 11/04/22 12/28/22 thiamine HCl (vitamin B1) 100 mg 100 mg PO DAILY 11/04/22 11/15/22 tablet aspirin 81 mg tablet,delayed 81 mg PO DAILY 11/15/22 11/15/22 release ferrous sulfate 325 mg (65 mg 325 mg PO TID 12/28/22 12/28/22 iron) tablet,delayed release nicotine (polacrilex) 4 mg gum 4 mg PO Q4H 12/28/22 12/28/22 acamprosate 333 mg tablet,delayed 666 mg PO TID 05/19/23 release duloxetine 30 mg capsule,delayed 30 mg PO BID 05/19/23 release hydroxyzine HCl 25 mg tablet 25 mg PO TID 05/19/23 Previous Rx's Medication Instructions Recorded apixaban 5 mg tablet (Eliquis) 5 mg PO BID #60 tabs 12/28/22 pantoprazole 40 mg tablet,delayed 40 mg PO DAILY #90 tabs 05/04/23 release (Protonix) sucralfate 1 gram tablet 1 g PO BID #60 tabs 10/24/23 aluminum hydrox-magnesium carb 254 10 ml PO QID PRN dyspepsia #355 mL 05/14/23 mg-237.5 mg/5 mL oral suspension (Gaviscon Extra Strength) food supplemt, lactose-reduced 1 ea PO BID 30 days #14,220 mL 05/19/23 (Ensure High Protein oral liquid) Allergies Allergy/AdvReac Type Severity Reaction Status Date / Time bee pollen [BEE STINGS] Allergy Severe SWELLING Verified 05/19/23 10:18 Review of Systems Review of Systems: Yes all other systems are reviewed and are negative Constitutional: Constitutional: Reports no additional constitutional complaints, Denies body ache(s), Denies chills, Denies fever(s), Denies headache(s) and Denies weakness Eyes: Eyes: Reports no additional eye complaints and Denies change in vision ENT: Reports system reviewed and no additional complaints, except as documented, Denies dizziness, Denies headache(s), Denies nasal congestion, Denies nasal discharge and Denies neck pain Cardiovascular: Cardiovascular: Reports no additional cardiovascular complaints, Denies chest pain, Denies leg edema and Denies dyspnea Respiratory: Respiratory: Reports no additional respiratory complaints, Denies cough and Denies dyspnea Gastrointestinal: Gastrointestinal: Reports no additional gastrointestinal complaints, Denies abdominal pain, Denies diarrhea, Denies nausea and Denies vomiting Genitourinary: Genitourinary: Denies urinary incontinence Musculoskeletal: Musculoskeletal: Reports no additional musculoskeletal complaints, Denies back pain, Denies arthralgias, Denies joint swelling, Denies neck pain, Denies numbness and Denies tingling Integumentary/Breasts: Skin/Breast: Reports system reviewed and no additional complaints, except as docu and Denies rash Neurologic: Reports system reviewed and no additional complaints, except as documented, Denies Abnormal speech present, Denies dizziness, Denies headache(s), Denies numbness, Denies tingling and Denies weakness [facility] Past Medical History Attestation statement: The following information was validated with the patient. Source: old records reviewed and nursing notes reviewed Medical History Substance abuse EtOH dependence Hypertension Surgical History Hx of endoscopy History of total right hip replacement Family History Family History Father Stomach cancer Social History Social History Alcohol intake: current Alcohol intake frequency: 3 or more drinks per day Alcohol type: beer and hard liquor Patient Tobacco Use Status: Former Tobacco user Smoked in Last 30 Days: Yes Use of substances other than those prescribed or required for medical reasons: No Substance Use Type: Heroin Advance Directives: No Advance Directives Information Provided: No service: No Current occupational status: unemployed Physical Exam ED Vital Signs: Vital Signs - 24 hr 09/05/23 12:11 Temperature 97.8 F Pulse Rate 88 Respiratory Rate 14 Blood Pressure 146/77 H Pulse Oximetry 98 Oxygen Delivery Method Room Air BMI result Body Mass Index 20.9 Const General: cooperative, healthy appearing, comfortable and no acute distress Orientation/consciousness: patient oriented x3 Limitations: no limitations HENMT Head: Yes normal to inspection Ears: hearing grossly normal bilaterally General nose exam: Normal external nose present Face and sinus: Yes normal facial exam Mouth: Normal oral and palatal mucosa present Throat: Yes posterior oropharynx normal Eyes General: appearance normal, both eyes and all related structures Pupils: Equal, round and reactive pupils present Neck Neck: Yes normal visual inspection Chest Chest palpation & inspection: normal inspection of the chest Resp Effort & Inspection: normal respiratory effort Auscultation: clear to auscultation bilaterally Cardio Rate: regular rate Rhythm: regular rhythm Peripheral pulses: Peripheral pulses 2+ throughout GI Inspection: Yes normal to inspection Palpation (GI): Soft to palpation and nontender Auscultation: normal bowel sounds Back/Spine/Pelvis Thoracic/Lumbar Spine: thoracic and lumbar spine normal to inspection Skin General skin exam: no rashes or lesions noted Neuro General: patient oriented x3, no focal motor deficits and normal sensation to monofilament Cranial nerves: Yes Equal, round and reactive pupils present Cognition (Neuro): normal cognition Speech: No Abnormal speech present Gait exam (Neuro): Normal gait present Motor exam (neuro): 5/5 motor strength present throughout Extrem General: Yes normal to inspection Medical Decision Making Medical Decision Making MDM Narrative: 57-year-old male here stating I've made a terrible mistake. Patient reports he was at a friend's house and was drinking and made some suicidal statements to his friend with no reports of plan. His friend called 911 and patient voluntarily came here to the ER to be evaluated. Patient reports he drank about a pt of vodka today. He does drink about this much daily. He is not suicidal at this time and tells me he has no history of suicide attempts. He denies HI. Denies hallucinations. Denies any additional substance use. Not interested in detox. Not interested in speaking to agile scrum coach. No physical complaints No concern for acute ingestion or trauma No physical complaints No current SI I do not have any safety concerns Patient is clinically sober. Up and ambulatory, eating and drinking with no difficulty Plan for discharge Differential Diagnosis Differential Diagnoses: The differential diagnosis associated with the presentation includes Admission/Observation Consideration of admission/observation: Escalation of care including admission/observation considered No SI, no safety concerns, patient is clinically sober and can be discharged home. Lab Data MDM Lab Attestation statement: I reviewed the patient's lab results. 09/05/23 12:29 09/05/23 12:29 Labs: Lab Results 09/05/23 09/05/23 Range/Units 12:29 13:04 WBC 12.3 H (4.8-10.8) X10*3/uL RBC 3.90 L (4.60-5.80) X10*6/uL Hgb 11.0 L (14.0-18.0) g/dl Hct 32.7 L (42.0-52.0) % MCV 83.8 (80.0-98.0) fL MCH 28.2 (27.0-33.0) pg MCHC 33.6 (31.0-36.0) g/dl RDW 14.8 (11.0-16.0) % Plt Count 220 (160-400) X10*3/uL MPV 9.5 (9.4-12.4) fL Immature Gran % (Auto) 0.6 H (0.0-0.4) % Neut % (Auto) 82.9 H (45-73) % Lymph % (Auto) 11.6 L (20-40) % [place] % (Auto) 4.6 (2-11) % Eos % (Auto) 0.0 (0-4) % Baso % (Auto) 0.3 (0-2) % Lymph # (Auto) 1.4 (1.2-4.9) X10*3/uL [place] # (Auto) 0.6 (0.1-1.2) X10*3/uL Eos # (Auto) 0.0 (0.0-0.4) X10*3/uL Baso # (Auto) 0.0 (0.0-0.2) X10*3/uL Abs Immat Gran (auto) 0.07 H (0.00-0.03) X10*3/uL Absolute Neuts (auto) 10.2 H (2.0-8.3) x10*3/uL Absolute Nucleated RBC 0.000 (0.0-0.012) X10*3/uL Nucleated RBC % (auto) 0.0 (0.0-0.2) /100WBC Sodium 139 (135-145) mmol/L Potassium 3.6 (3.3-5.1) mmol/L Chloride 101 (96-108) mmol/L Carbon Dioxide 25 (22-29) mmol/L Anion Gap 17 (12-20) BUN 13 (9-16) mg/dL Creatinine 0.64 (0.5-1.4) mg/dL Estim Creat Clear Calc 121.0 Estimated GFR > 60 Random Glucose 99 (60-115) mg/dL Calcium 8.5 D (8.4-10.2) mg/dL Total Bilirubin 0.4 (0.0-1.0) mg/dL AST 48 H (5-37) U/L ALT 58 H (0-40) U/L Alkaline Phosphatase 73 (39-117) U/L Total Protein 6.3 L (6.5-8.0) g/dL Albumin 3.5 (3.5-5.0) g/dL Urine Color Yellow Urine Appearance Clear Urine pH 7.0 (5.0-9.0) Ur Specific [place] 1.020 (1.005-1.025) Urine Protein 100 (2+) H (Neg-Trace) mg/dL Urine Glucose (UA) Negative (Negative) mg/dL Urine Ketones Trace (Negative) mg/dL Urine Blood Negative (Negative) Urine Nitrite Negative (Negative) Ur Leukocyte Esterase Negative (Negative) Urine RBC 0-2 (0-2) /HPF Urine WBC 0-5 (0-5) /HPF Ur Squamous Epith Cells 0-2 (0-2) /HPF Urine Bacteria None Seen (None Seen) Hyaline Casts 0-2 (0-2) /LPF Urine Opiates Screen Not Detected (Not Detect) Urine Fentanyl Screen POSITIVE H (Not Detect) Ur Barbiturates Screen Not Detected (Not Detect) Ur Phencyclidine Scrn Not Detected (Not Detect) Ur Amphetamines Screen Not Detected (Not Detect) U Benzodiazepines Scrn Not Detected (Not Detect) Urine Cocaine Screen POSITIVE H (Not Detect) U Marijuana (THC) Screen POSITIVE H (Not Detect) Ethyl Alcohol 135 mg/dL COVID-19 (CRUZ) Negative (Negative) COVID-19 Clin Com See Note Independent Historian Clinical information obtained from an independent historian. History obtained from or confirmed by: EMS Discharge Plan Discharge Clinical Impression: Alcohol use, Polysubstance use disorder Instructions: Polysubstance Abuse (ED) Additional Instructions: Your drug screen was positive for fentanyl, cocaine and marijuana. Please do not do drugs. Follow-up with your outpatient providers Return for any concern Prescriptions: No Action lisinopril 10 mg tablet 10 mg PO DAILY gabapentin 300 mg capsule 300 mg PO BID melatonin 5 mg tablet 5 mg BEDTIME thiamine HCl (vitamin B1) 100 mg tablet 100 mg PO DAILY folic acid 1 mg tablet 1 mg PO DAILY nicotine (polacrilex) 4 mg gum 4 mg PO Q4H ferrous sulfate 325 mg (65 mg iron) tablet,delayed release (DR/EC) 325 mg PO TID Eliquis 5 mg tablet 5 mg PO BID Qty: 60 0RF Hold Instructions: Resume on 05/25/23. resume taking Eliquis on 05/25/23 Gaviscon Extra Strength 254-237.5 mg/5 mL suspension 10 ml PO QID PRN (Reason: dyspepsia) Qty: 355 0RF aspirin 81 mg Tablet,Delayed Release (Dr/Ec) 81 mg PO DAILY pantoprazole [Protonix] 40 mg tablet,delayed release (DR/EC) 40 mg PO DAILY Qty: 90 0RF sucralfate 1 gram tablet 1 g PO BID Qty: 60 0RF duloxetine 30 mg capsule,delayed release(DR/EC) 30 mg PO BID hydroxyzine HCl 25 mg tablet 25 mg PO TID acamprosate 333 mg tablet,delayed release (DR/EC) 666 mg PO TID Ensure High Protein Liquid 1 ea PO BID 30 Days Qty: 78476 1RF Referrals: Maximo Morfin MD [Primary Care Provider] - 1 week Interventions: [place]-Suicide Risk Severity Scale Last Done: 09/05/23 12:21
== END 2023-09-05 13:47 | disposition home or self-care (01) ==
PROVIDERS: Emergency Provider Emergency Medicine; PCP Internal Medicine
DX: F10.10 Alcohol abuse, uncomplicated (principal); F14.10 Cocaine abuse, uncomplicated; F12.10 Cannabis abuse, uncomplicated; Z59.00 Homelessness unspecified; Z11.52 Encounter for screening for COVID-19; Z79.899 Other long term (current) drug therapy
CPT/HCPCS: 80053; 80307; 81001; 85025; 87635; 99284

== ENCOUNTER 2023-09-06 10:07 | Emergency (ER) | payer MEDICAID, SELFPAY ==
--- NOTE | 2023-09-06 10:21 | ED.ALCOHOL ---
HPI - Alcohol General Chief Complaint: ETOH/Substance Use Stated Complaint: ETOH USE,LOW BACK PAIN PER EMS Time Seen by Provider: 09/06/23 10:13 Source: EMS Mode of arrival: EMS Limitations: altered mental status History of Present Illness HPI narrative: This is a 57 years old male with history of alcohol abuse and opioid abuse brought by ambulance because lethargic. No sign of trauma. Patient is a frequent utilizer of the emergency department. MD complaint: alcohol intoxication Last drink: Hours (ago) (2) Chronic alcohol use: Yes Previous visits for alcohol intoxication: Yes Recent trauma: No Associated symptoms: other (lower back pain) Treatments prior to arrival: none Related Data Home Medications Medication Instructions Recorded Confirmed folic acid 1 mg tablet 1 mg PO DAILY 11/04/22 11/15/22 gabapentin 300 mg capsule 300 mg PO BID 11/04/22 11/15/22 lisinopril 10 mg tablet 10 mg PO DAILY 11/04/22 12/28/22 melatonin 5 mg tablet 5 mg BEDTIME 11/04/22 12/28/22 thiamine HCl (vitamin B1) 100 mg 100 mg PO DAILY 11/04/22 11/15/22 tablet aspirin 81 mg tablet,delayed 81 mg PO DAILY 11/15/22 11/15/22 release ferrous sulfate 325 mg (65 mg 325 mg PO TID 12/28/22 12/28/22 iron) tablet,delayed release nicotine (polacrilex) 4 mg gum 4 mg PO Q4H 12/28/22 12/28/22 acamprosate 333 mg tablet,delayed 666 mg PO TID 05/19/23 release duloxetine 30 mg capsule,delayed 30 mg PO BID 05/19/23 release hydroxyzine HCl 25 mg tablet 25 mg PO TID 05/19/23 Previous Rx's Medication Instructions Recorded apixaban 5 mg tablet (Eliquis) 5 mg PO BID #60 tabs 12/28/22 pantoprazole 40 mg tablet,delayed 40 mg PO DAILY #90 tabs 05/04/23 release (Protonix) sucralfate 1 gram tablet 1 g PO BID #60 tabs 05/04/23 aluminum hydrox-magnesium carb 254 10 ml PO QID PRN dyspepsia #355 mL 05/14/23 mg-237.5 mg/5 mL oral suspension (Gaviscon Extra Strength) food supplemt, lactose-reduced 1 ea PO BID 30 days #14,220 mL 05/19/23 (Ensure High Protein oral liquid) Allergies Allergy/AdvReac Type Severity Reaction Status Date / Time bee pollen [BEE STINGS] Allergy Severe SWELLING Verified 09/06/23 10:30 Review of Systems Constitutional: Constitutional: Reports no additional constitutional complaints ENT: Reports system reviewed and no additional complaints, except as documented Cardiovascular: Cardiovascular: Reports no additional cardiovascular complaints Musculoskeletal: Musculoskeletal: Reports no additional musculoskeletal complaints [facility] Past Medical History Attestation statement: The following information was validated with the patient. [facility] Narrative: Alcohol abuse polysubstance abuse Medical History Substance abuse EtOH dependence Hypertension Surgical History Hx of endoscopy History of total right hip replacement Family History Family History Father Stomach cancer Social History Social History Alcohol intake: current Alcohol intake frequency: 3 or more drinks per day Alcohol type: beer and hard liquor Patient Tobacco Use Status: Former Tobacco user Substance Use Type: Heroin Advance Directives: No Advance Directives Information Provided: No service: No Current occupational status: unemployed Physical Exam ED Vital Signs: Vital Signs - 24 hr 09/06/23 10:23 09/06/23 10:24 09/06/23 13:13 Temperature 97.9 F 97.9 F 98.1 F Pulse Rate 78 92 76 Respiratory Rate 16 16 16 Blood Pressure 124/73 124/73 128/73 Pulse Oximetry 92 92 94 Oxygen Delivery Method Room Air Room Air Room Air BMI result Body Mass Index 23.8 Const General: cooperative Nutritional Appearance: average body habitus Orientation/consciousness: Other orientation findings (At this time is very lethargic) HENME Other: No sign of trauma Face and sinus: Yes normal facial exam Neck Neck: Yes normal visual inspection Chest Chest palpation & inspection: normal inspection of the chest Resp Effort & Inspection: normal respiratory effort Auscultation: clear to auscultation bilaterally Cardio Jugular venous distension: no JVD Rate: regular rate Rhythm: regular rhythm GI Inspection: Yes normal to inspection Palpation (GI): Soft to palpation Auscultation: normal bowel sounds Skin General skin exam: no rashes or lesions noted and elasticity normal Course Reevaluation(s) Reevaluation #1: seen by care team refuses detox Time: 14:50 Reevaluation #2: Off shift now signed out to Dr White Time: 16:19 Medical Decision Making Medical Decision Making [facility] Narrative: Patient presented with a chief complaint of alcohol intoxication will check labs and monitor until he is sober Differential Diagnosis Differential Diagnoses: The differential diagnosis associated with the presentation includes Alcohol intoxication/opioid overdose Lab Data 09/06/23 11:36 09/06/23 11:35 Labs: Lab Results 09/06/23 09/06/23 Range/Units 11:35 11:36 WBC 8.6 (4.8-10.8) X10*3/uL RBC 3.62 L (4.60-5.80) X10*6/uL Hgb 10.2 L (14.0-18.0) g/dl Hct 30.5 L (42.0-52.0) % MCV 84.3 (80.0-98.0) fL MCH 28.2 (27.0-33.0) pg MCHC 33.4 (31.0-36.0) g/dl RDW 15.0 (11.0-16.0) % Plt Count 207 (160-400) X10*3/uL MPV 9.3 L (9.4-12.4) fL Immature Gran % (Auto) 1.5 H (0.0-0.4) % Neut % (Auto) 68.4 (45-73) % Lymph % (Auto) 22.9 (20-40) % [place] % (Auto) 6.5 (2-11) % Eos % (Auto) 0.1 (0-4) % Baso % (Auto) 0.6 (0-2) % Lymph # (Auto) 2.0 (1.2-4.9) X10*3/uL [place] # (Auto) 0.6 (0.1-1.2) X10*3/uL Eos # (Auto) 0.0 (0.0-0.4) X10*3/uL Baso # (Auto) 0.1 (0.0-0.2) X10*3/uL Abs Immat Gran (auto) 0.13 H (0.00-0.03) X10*3/uL Absolute Neuts (auto) 5.9 (2.0-8.3) x10*3/uL Absolute Nucleated RBC 0.000 (0.0-0.012) X10*3/uL Nucleated RBC % (auto) 0.0 (0.0-0.2) /100WBC Sodium 139 (135-145) mmol/L Potassium 3.0 L (3.3-5.1) mmol/L Chloride 100 (96-108) mmol/L Carbon Dioxide 27 (22-29) mmol/L Anion Gap 15 (12-20) BUN 12 (9-16) mg/dL Creatinine 0.57 (0.5-1.4) mg/dL Estim Creat Clear Calc 127.4 Estimated GFR > 60 Random Glucose 97 (60-115) mg/dL Calcium 8.4 (8.4-10.2) mg/dL Total Bilirubin 0.4 (0.0-1.0) mg/dL AST 29 (5-37) U/L ALT 42 H (0-40) U/L Alkaline Phosphatase 71 (39-117) U/L Total Protein 5.9 L (6.5-8.0) g/dL Albumin 3.5 (3.5-5.0) g/dL Urine Opiates Screen Not Detected (Not Detect) Urine Fentanyl Screen POSITIVE H (Not Detect) Ur Barbiturates Screen Not Detected (Not Detect) Ur Phencyclidine Scrn Not Detected (Not Detect) Ur Amphetamines Screen Not Detected (Not Detect) U Benzodiazepines Scrn Not Detected (Not Detect) Urine Cocaine Screen Not Detected (Not Detect) U Marijuana (THC) Screen POSITIVE H (Not Detect) Ethyl Alcohol 359 H* mg/dL Medications Administered Discontinued Medications Generic Name Dose Route Start Last Admin Trade Name Freq PRN Reason Stop Dose Admin Potassium Chloride 20 meq 09/06/23 14:25 09/06/23 16:10 Potassium Chloride Er 20 Meq Tab.Er.Prt PO 09/06/23 14:26 20 meq ONCE ONE Administration Discharge Plan Discharge Clinical Impression: Acute alcohol abuse Prescriptions: No Action lisinopril 10 mg tablet 10 mg PO DAILY gabapentin 300 mg capsule 300 mg PO BID melatonin 5 mg tablet 5 mg BEDTIME thiamine HCl (vitamin B1) 100 mg tablet 100 mg PO DAILY folic acid 1 mg tablet 1 mg PO DAILY nicotine (polacrilex) 4 mg gum 4 mg PO Q4H ferrous sulfate 325 mg (65 mg iron) tablet,delayed release (DR/EC) 325 mg PO TID Eliquis 5 mg tablet 5 mg PO BID Qty: 60 0RF Hold Instructions: Resume on 05/25/23. resume taking Eliquis on 05/25/23 Gaviscon Extra Strength 254-237.5 mg/5 mL suspension 10 ml PO QID PRN (Reason: dyspepsia) Qty: 355 0RF aspirin 81 mg Tablet,Delayed Release (Dr/Ec) 81 mg PO DAILY pantoprazole [Protonix] 40 mg tablet,delayed release (DR/EC) 40 mg PO DAILY Qty: 90 0RF sucralfate 1 gram tablet 1 g PO BID Qty: 60 0RF duloxetine 30 mg capsule,delayed release(DR/EC) 30 mg PO BID hydroxyzine HCl 25 mg tablet 25 mg PO TID acamprosate 333 mg tablet,delayed release (DR/EC) 666 mg PO TID Ensure High Protein Liquid 1 ea PO BID 30 Days Qty: 20836 1RF
[2023-09-06 10:23] VITALS: BP 124/73; PULSE 78; RESP 16; TEMP 36.6; O2SAT 92
[2023-09-06 10:24] VITALS: BP 124/73; BP 140/82; PULSE 92; PULSE 93; RESP 16; TEMP 36.6; O2SAT 92; O2SAT 96; BMI 23.8
--- NOTE | 2023-09-06 11:22 | PC.NURSE ---
Pt attempts to get up and go to bathroom, very unsteady on his feet. Pt directed back into bed and given urinal. Pt refusing to answer questions at this time. Sleeps intermittently. Breathing even and unlabored.
[2023-09-06 11:41] LABS: MANUAL DIFF FLAG NO
[2023-09-06 11:46] LABS: Basophils Absolute Auto 0.1 X10*3/uL (0.0-0.2); Basophils Percent Auto 0.6 % (0-2); Eosinophils Percent Auto 0.1 % (0-4); Hematocrit 30.5 % (42.0-52.0); Hemoglobin 10.2 g/dl (14.0-18.0); Imm Gran Abs Auto 0.13 X10*3/uL (0.00-0.03); Imm Gran Pct Auto 1.5 % (0.0-0.4); Lymphocytes Percent Auto 22.9 % (20-40); Mean Corpuscular HGB Conc 33.4 g/dl (31.0-36.0); Mean Corpuscular Hemoglobin 28.2 pg (27.0-33.0); Mean Corpuscular Volume 84.3 fL (80.0-98.0); Mean Platelet Volume 9.3 fL (9.4-12.4); Monocytes Absolute Auto 0.6 X10*3/uL (0.1-1.2); Monocytes Percent Auto 6.5 % (2-11); Neutrophils Absolute Auto 5.9 x10*3/uL (2.0-8.3); Neutrophils Percent Auto 68.4 % (45-73); Platelet Count 207 X10*3/uL (160-400); Red Blood Count 3.62 X10*6/uL (4.60-5.80); White Blood Count 8.6 X10*3/uL (4.8-10.8)
[2023-09-06 11:50] LABS: Amphetamine Screen Urine Not Detected (Not Detect); Barbiturates, Urine Not Detected (Not Detect); Benzodiazepines Screen Urine Not Detected (Not Detect); Cannabinoid Screen Urine POSITIVE (Not Detect); Cocaine Screen Urine Not Detected (Not Detect); Fentanyl, urine POSITIVE (Not Detect); Opiate Screen Urine Not Detected (Not Detect); Phencyclidine Screen Urine Not Detected (Not Detect)
[2023-09-06 11:58] LABS: Alanine Aminotransferase 42 U/L (0-40); Albumin Level 3.5 g/dL (3.5-5.0); Alkaline Phosphatase 71 U/L (39-117); Anion Gap 15 (12-20); Aspartate Amino Transferase 29 U/L (5-37); Bilirubin Total 0.4 mg/dL (0.0-1.0); Blood Urea Nitrogen 12 mg/dL (9-16); Calcium 8.4 mg/dL (8.4-10.2); Carbon Dioxide 27 mmol/L (22-29); Chloride 100 mmol/L (96-108); Creatinine Clr Calc Pharmacy 127.4; Estimated Glomerular Filt Rate > 60; Ethanol 359 mg/dL; Glucose Random 97 mg/dL (60-115); Sodium 139 mmol/L (135-145); Total Protein 5.9 g/dL (6.5-8.0)
[2023-09-06 13:13] VITALS: BP 128/73; PULSE 76; RESP 16; TEMP 36.7; O2SAT 94
--- NOTE | 2023-09-06 14:53 | MHC.RECOVRN ---
Met with pt in [id number] after consult placed to CARE Team for substance use. Pt had presented to the ED after alcohol use, found down [place] a gas station, complaints of lower back pain, unknown if pt had fallen. Pt laying in bed, eyes closed, wakes to voice, difficult to engage in conversation, sleepy. Pt reports alcohol use, a lot, does not engage in further discussion or elaborate when asked questions. Pt states I'm going to be out of here in a minute. Reports desire to discharge. Pt denies questions or concerns for t/w. Provider and RN aware.
[2023-09-06] MEDS: Potassium Chloride ER 20 MEQ TAB.ER.PRT PO (16:10)
--- NOTE | 2023-09-06 16:13 | PC.NURSE ---
Pt wakes up and answers some questions, reports some back pain, headache and mild nausea. Able to do a CIWA score. Pt denies any CP or SOB. Pt wants to continue sleeping, does take his med without any issues.
--- NOTE | 2023-09-06 16:42 | PC.NURSE ---
Pt requests food and drink, pleasant. Pt denies any SI/HI or any complaints at this time. Pt requests to sleep more.
--- NOTE | 2023-09-06 18:48 | PC.NURSE ---
Pt has gotten up and ambulated a couple of times and has been steady on his feet
[2023-09-07] VITALS: BP 128/60; PULSE 110; RESP 16; TEMP 37; O2SAT 98
[2023-09-07] MEDS: Magnesium Hydrox/Alum Hydrox 30 ML ORAL.SUSP PO (01:55)
[2023-09-07] MEDS: Ondansetron ODT 4 MG TAB.RAPDIS TRANSLINGU (01:55)
--- NOTE | 2023-09-07 03:30 | PC.NURSE ---
This automobile and property underwriter assumed care of this Pt at 0300. Pt laying in stretcher, appears to be sleeping, equal, non labored respirations, no apparent distress. Pt awakens with verbal stimuli.
[2023-09-07 06:00] VITALS: BP 121/60; PULSE 87; RESP 16; TEMP 37.2; O2SAT 97
--- NOTE | 2023-09-07 06:00 | PC.NURSE ---
Pt ambulated to BR independently with steady gait.
[2023-09-07 08:03] LABS: Potassium 4.3 mmol/L (3.3-5.1)
--- NOTE | 2023-09-07 09:00 | PC.NURSE ---
pt ambulating with a steady gait up to the bathroom requesting discharge at this time
== END 2023-09-07 09:02 | disposition home or self-care (01) ==
PROVIDERS: Physician Assistant; Emergency Provider Emergency Medicine
DX: F10.129 Alcohol abuse with intoxication, unspecified (principal); Y90.8 Blood alcohol level of 240 mg/100 ml or more; F11.10 Opioid abuse, uncomplicated; I10 Essential (primary) hypertension
CPT/HCPCS: 36415; 80053; 80307; 84132; 85025; 99284

== ENCOUNTER 2023-09-07 10:13 | Inpatient (IN) | payer MEDICAID, SELFPAY ==
[2023-09-07] VITALS (32 sets, daily range): BP systolic 64–119; BP diastolic 44–71; PULSE 59–113; RESP 12–30; TEMP 35–36.3; O2SAT 81–700; BMI 20.1; BMI 21.9
--- NOTE | ~2023-09-07 | XR_ITS ---
EXAMINATION: XR CHEST CLINICAL INFORMATION: Status post intubation. COMPARISON: Chest x-ray and chest CT from earlier the same day. TECHNIQUE: Portable AP view of the chest was obtained. FINDINGS: The study is limited by portable technique and low lung volumes. The tip of a new endotracheal tube projects over the trachea at the level of the clavicles, approximately 6 cm above the steph. No gross focal infiltrate, effusion, pneumothorax is seen. The heart appears normal in size. The aorta is atherosclerotic. Multiple right rib fixation hardware. Old, healed right rib fractures. XR/XR chest 1V IMPRESSION: The tip of a new endotracheal tube projects over the trachea at the level of the clavicles, approximately 6 cm above the steph.
--- NOTE | ~2023-09-07 | CT_ITS ---
EXAMINATION: CT CHEST WITHOUT CONTRAST CLINICAL INFORMATION: Shortness of breath, hypoxia, aspiration. COMPARISON: CT chest 03/31/2023. TECHNIQUE: Multidetector volumetric CT imaging of the chest was done. Axial MIP volume rendering provided. Sagittal and coronal reformatted images were obtained. This CT examination was performed using dose optimization techniques as appropriate, variously including the following: *Automated exposure control *Adjustment of mA and/or kV according to patient size (this includes techniques or standardized protocols for targeted exams where dose is matched to indication/reason for exam; i.e. extremities or head) *Use of iterative reconstruction technique DLP: 304 mGy-cm FINDINGS: Limited examination secondary to motion and lack of IV contrast. LUNGS: A 2.3 x 0.8 cm pleural-based opacity in the left lung base (5:347) is decreased in size and now less masslike compared to 03/31/2023 where it measured 2.9 x 0.9 cm. A few new subtle groundglass opacities are seen, for instance in the left upper lobe (5:207), inferior aspect of the right upper lobe (5:263) and lingula (5:369). New subtle patchy and streaky opacities in the right lung base (5:351). Slightly increased diffuse bronchial wall thickening. Central airways are patent. MEDIASTINUM: Normal heart size. Moderate atherosclerotic disease. Ascending thoracic aorta measures 4.2 cm in diameter, unchanged. Stable focal contour deformity along the inferior aspect of the aortic arch with wall calcifications measuring 3.2 x 2.9 cm (3:20). Normal appearance of the thyroid gland. Increased wall thickening of the lower esophagus/gastroesophageal junction with worsening upstream stagnation and patulous appearance of the esophagus. No enlarging mediastinal lymph nodes. Evaluation of hilar lymph nodes is very limited due to motion and lack of IV contrast. CORONARY ARTERY CALCIFICATION: Severe multivessel coronary artery calcifications. PLEURA: No pleural effusion or pneumothorax. AXILLA: No lymphadenopathy. UPPER ABDOMEN: Simple appearing left-sided renal cysts, for which no imaging follow-up is recommended. OSSEOUS STRUCTURES: Chronic right-sided rib fractures with fixation plates. Unchanged compression deformities at L1 and less so L2. Thoracic spondylosis. CT/CT chest wo IV con IMPRESSION: Limited examination secondary to motion and lack of IV contrast. 1. A pleural-based opacity in the left lung base is decreased in size and now less masslike compared to 03/31/2023. 2. Increase bronchial wall thickening as well as a few new bilateral groundglass and patchy airspace opacities, suggestive of an infectious/inflammatory process. Recommend short-term follow-up CT chest in 3 months. 3. Increased wall thickening of the lower esophagus/gastroesophageal junction with worsening upstream stagnation and patulous appearance of the esophagus which constitutes a high risk factor for aspiration. If not recently obtained, further evaluation with upper endoscopy is highly recommended to rule out underlying neoplasia. 4. Stable aneurysmatic dilatation of the ascending thoracic aorta as well as unchanged focal contour abnormality along the inferior aspect of the aortic arch with calcified wall that could reflect sequela of a chronic aortic injury. Severe multivessel coronary calcifications. Follow up with airways control specialist guidance is recommended.
--- NOTE | ~2023-09-07 | CT_ITS ---
EXAMINATION: CT HEAD WITHOUT CONTRAST CLINICAL INFORMATION: Fall with head strike COMPARISON: Head CT August 29, 2023 TECHNIQUE: Contiguous axial imaging was performed from the skull base to vertex without intravenous administration of contrast. This CT examination was performed using dose optimization techniques as appropriate, variously including the following: *Automated exposure control *Adjustment of mA and/or kV according to patient size (this includes techniques or standardized protocols for targeted exams where dose is matched to indication/reason for exam; i.e. extremities or head) *Use of iterative reconstruction technique DLP: 772 mGy-cm FINDINGS: There is no evidence of acute intracranial hemorrhage or territorial infarction. No abnormal mass effect or midline shift is appreciated. Gaines-white differentiation is well preserved. No extra-axial fluid collections. Stable approximately 2 cm left temporal meningioma. The ventricular system and cortical sulci are prominent, consistent with age-appropriate volume loss. There are areas of low density in the periventricular and subcortical white matter, most consistent with sequelae of microvascular ischemic change. Soft tissues and osseous structures are unremarkable. There are calcifications of the cavernous internal carotid arteries. Small mucous retention cyst of the right maxillary sinus. The visualized paranasal sinuses and mastoid air cells are otherwise well aerated. CT/CT head/brain wo IV con IMPRESSION: Chronic microvascular ischemic changes with no CT evidence of acute intracranial abnormality.
--- NOTE | ~2023-09-07 | XR_ITS ---
EXAMINATION: XR CHEST CLINICAL INFORMATION: Choking episode. Question aspiration. COMPARISON: Chest x-ray March 31, 2023 TECHNIQUE: Frontal view of the chest was obtained. FINDINGS: Cardiac silhouette is normal in size. Atherosclerotic disease of the aortic arch. The lungs are well aerated. No lobar consolidation. No pleural effusion or pneumothorax. Numerous old right-sided rib fractures with associated hardware. XR/XR chest 1V IMPRESSION: No acute pulmonary pathology.
--- NOTE | 2023-09-07 10:14 | ECG_ITS ---
Test Reason : etoh,?od Blood Pressure : / mmHG Vent. Rate : 087 BPM Atrial Rate : 087 BPM P-R Int : 142 ms QRS Dur : 098 ms QT Int : 390 ms P-R-T Axes : 025 011 057 degrees QTc Int : 469 ms Normal sinus rhythm Incomplete right bundle branch block Septal infarct , age undetermined Abnormal ECG When compared with ECG of 31-MAR-2023 15:27, Septal infarct is now Present Nonspecific T wave abnormality now evident in Anterior leads Referred By: Cas Iglesias Electronically Signed By:KAREN AGOSTO
--- NOTE | 2023-09-07 10:17 | ED.GENADULT ---
HPI - General Adult General Chief complaint: General Medical Stated complaint: ETOH USE,WANTS DETOX PER EMS Time Seen by Provider: 09/07/23 10:21 Source: EMS Mode of arrival: EMS Limitations: altered mental status History of Present Illness HPI narrative: 57-year-old male history of anxiety, depression, alcohol use disorder, hep c, opiate use disorder presenting [facility] where patient chugged 2 pt of vodka from his time of discharge earlier today to arrival. Unclear if patient used drugs. Became unresponsive with EMS, given Narcan with little to no effect. Only arousable to painful stimuli. On arrival patient unable to provide me history. Minimally responsive only to painful stimuli. Protecting his own airway. Related Data Home Medications Medication Instructions Recorded Confirmed folic acid 1 mg tablet 1 mg PO DAILY 11/04/22 11/15/22 gabapentin 300 mg capsule 300 mg PO BID 11/04/22 11/15/22 lisinopril 10 mg tablet 10 mg PO DAILY 11/04/22 12/28/22 melatonin 5 mg tablet 5 mg BEDTIME 11/04/22 12/28/22 thiamine HCl (vitamin B1) 100 mg 100 mg PO DAILY 11/04/22 11/15/22 tablet aspirin 81 mg tablet,delayed 81 mg PO DAILY 11/15/22 11/15/22 release ferrous sulfate 325 mg (65 mg 325 mg PO TID 12/28/22 12/28/22 iron) tablet,delayed release nicotine (polacrilex) 4 mg gum 4 mg PO Q4H 12/28/22 12/28/22 acamprosate 333 mg tablet,delayed 666 mg PO TID 05/19/23 release duloxetine 30 mg capsule,delayed 30 mg PO BID 05/19/23 release hydroxyzine HCl 25 mg tablet 25 mg PO TID 05/19/23 Previous Rx's Medication Instructions Recorded apixaban 5 mg tablet (Eliquis) 5 mg PO BID #60 tabs 12/28/22 pantoprazole 40 mg tablet,delayed 40 mg PO DAILY #90 tabs 05/04/23 release (Protonix) sucralfate 1 gram tablet 1 g PO BID #60 tabs 05/04/23 aluminum hydrox-magnesium carb 254 10 ml PO QID PRN dyspepsia #355 mL 05/14/23 mg-237.5 mg/5 mL oral suspension (Gaviscon Extra Strength) food supplemt, lactose-reduced 1 ea PO BID 30 days #14,220 mL 05/19/23 (Ensure High Protein oral liquid) Allergies Allergy/AdvReac Type Severity Reaction Status Date / Time bee pollen [BEE STINGS] Allergy Severe SWELLING Verified 09/06/23 10:30 Review of Systems Review of Systems: Yes Unobtainable due to mental status PMFSH Past Medical History Attestation statement: The following information was validated with the patient. Source: old records reviewed and nursing notes reviewed Medical History Substance abuse EtOH dependence Hypertension Surgical History Hx of endoscopy History of total right hip replacement Family History Family History Father Stomach cancer Social History Social History Alcohol intake: current Alcohol intake frequency: 3 or more drinks per day Alcohol type: beer and hard liquor Patient Tobacco Use Status: Former Tobacco user Use of substances other than those prescribed or required for medical reasons: Yes Substance Use Type: Heroin Advance Directives: No Advance Directives Information Provided: No service: No Current occupational status: unemployed Physical Exam ED Vital Signs: Vital Signs - 24 hr 09/07/23 10:31 09/07/23 11:21 09/07/23 11:55 Temperature 97.4 F Pulse Rate 79 89 84 Respiratory Rate 12 20 20 Blood Pressure 109/63 106/62 119/67 Pulse Oximetry 81 L 100 100 Oxygen Delivery Method Room Air Oxymask Oxymask Oxygen Flow Rate Fraction of Inspired Oxygen 09/07/23 13:55 09/07/23 14:13 09/07/23 14:16 Temperature Pulse Rate 87 89 85 Respiratory Rate 24 H 30 H Blood Pressure 96/52 L 97/60 100/63 Pulse Oximetry 100 700 H Oxygen Delivery Method Oxymask Oxymask Oxygen Flow Rate 6 Fraction of Inspired Oxygen 09/07/23 15:02 09/07/23 15:05 09/07/23 15:07 Temperature Pulse Rate 87 81 Respiratory Rate 16 16 Blood Pressure 102/59 L 116/71 Pulse Oximetry 99 95 Oxygen Delivery Method Mechanical Ventilation Oxygen Flow Rate 50 Fraction of Inspired Oxygen 100 BMI result Body Mass Index 20.1 Vital signs stable Appearance: Patient awakes only to painful stimuli.? No acute distress.? Head: Normocephalic, atraumatic, no step-offs or deformities Eyes: Pupils equal, round and reactive to light.? ENT: Pharynx normal.?Mallampati score of 1 Neck: Normal inspection.? Neck supple.? CVS: Normal heart rate and rhythm.? Pulses normal.? Respiratory: No respiratory distress.? Breath sounds bilateral lower lobe crackles.? Abdomen: Soft and nontender.? Skin: Skin warm and dry.? Normal skin color.? Normal skin turgor.? Extremities:5/5 strength to bilateral upper and lower extremities Neuro: Patient awakes only to painful stimuli.? No motor deficit.? No sensory deficit. Difficult to obtain a neurological assessment on arrival as he is somnolent and minimally respond Course Reevaluation(s) Reevaluation #1: Patient's saturation in mid 80s. Patient is difficult to arouse. Will be placed on nasal cannula 2 L. Will also put it in nasal airway/ trumpet w/ nonrebreather Dry heaving with nausea and vomiting. Likely secondary to Narcan Time: 10:35 Reevaluation #2: CBC with leukocytosis 16.9. Likely reactive from Narcan versus aspiration pneumonia. Chemistry, lactic acid pending. patient trying to take out IV and non rebreather Time: 11:05 Reevaluation #3: Lactic acidosis likely secondary to ethanol. Alcohol level 500. Time: 11:23 Additional Reevaluation(s): 1437 Patient desatting down to low 80s on an Oxymizer. Not protecting his own airway. No gag reflex. At this time rapid sequence intubation will be done. 1447 RSI done 7.0, 23 at the [facility] cxr ordered, + bs b/l, + color changes ( Dr. De Los Santos at bedside ). Will start Precedex. Chest Ct pending Spoke to Dr. Zayas who accepts admission. Medications Administered Generic Name Dose Route Start Last Admin Trade Name Freq PRN Reason Stop Dose Admin Dexmedetomidine HCl 400 mcg in 100 mls @ 0 mls/hr 09/07/23 15:00 09/07/23 15:05 Precedex IVCONT 1 mcg/kg/hr .Q0M JEAN 17.55 mls/hr Administration Protocol Per Protocol Discontinued Medications Generic Name Dose Route Start Last Admin Trade Name Kristi PRN Reason Stop Dose Admin Azithromycin 500 mg/ Sodium 250 mls @ 125 mls/hr 09/07/23 11:04 09/07/23 14:11 Chloride IV 09/07/23 13:03 Infused ONCE ONE Infusion Ceftriaxone Sodium 1 gm/ 50 mls @ 100 mls/hr 09/07/23 11:04 09/07/23 11:49 Sodium Chloride IV 09/07/23 11:33 Infused ONCE ONE Infusion Sodium Chloride 1,800 mls @ 1,800 mls/hr 09/07/23 11:04 09/07/23 14:11 Ns 30 ml/kg infuse over 1 hr (1800 ml) 09/07/23 12:03 Infused IV Infusion .Q1H STA Naloxone HCl 4 mg 09/07/23 10:14 09/07/23 10:48 Naloxone Hcl Nasal 4 Mg Daisetta NOSTRILALT 09/07/23 10:15 4 mg ONCE ONE Administration Ondansetron HCl 4 mg 09/07/23 10:56 09/07/23 10:58 Ondansetron Hcl 4 Mg/2 Ml Vial IVPUSH 09/07/23 10:57 4 mg ONCE ONE Administration Medical Decision Making Medical Decision Making MDM Narrative: 57-year-old male presents with suspected opiate overdose and alcohol intoxication was drinking [employer] \ Physical exam patient arousable only to painful stimuli crackles to bilateral lower lobes. Will rule out intracranial hemorrhage as patient was found minimally responsive unclear if fall. Will also rule out polysubstance abuse, alcohol intoxication. No signs of traumatic injury to chest, abdomen or pelvis. Will rule out aspiration. No signs of truamatic injury to chest, abd, pelvis. Plan medical clearance. To note patient was just discharged from this facility a few hours ago. Differential Diagnosis Differential Diagnoses: The differential diagnosis associated with the presentation includes Will rule out intracranial hemorrhage as patient was found minimally responsive unclear if fall. Will also rule out polysubstance abuse, alcohol intoxication. No signs of traumatic injury to chest, abdomen or pelvis. Will rule out aspiration. No signs of truamatic injury to chest, abd, pelvis. Admission/Observation Consideration of admission/observation: Escalation of care including admission/observation considered Consult Healthcare Provider Management of the patient was discussed with: Manager Of Pharmacy (ICU ) Lab Data MDM Lab Attestation statement: I reviewed the patient's lab results. 09/07/23 10:55 09/07/23 10:55 Labs: Lab Results 09/07/23 09/07/23 09/07/23 Range/Units 10:47 10:55 11:18 WBC 16.9 H (4.8-10.8) X10*3/uL RBC 4.15 L (4.60-5.80) X10*6/uL Hgb 11.8 L (14.0-18.0) g/dl Hct 34.5 L (42.0-52.0) % MCV 83.1 (80.0-98.0) fL MCH 28.4 (27.0-33.0) pg MCHC 34.2 (31.0-36.0) g/dl RDW 15.0 (11.0-16.0) % Plt Count 250 (160-400) X10*3/uL MPV 9.5 (9.4-12.4) fL Immature Gran % (Auto) 1.2 H (0.0-0.4) % Neut % (Auto) 71.2 (45-73) % Lymph % (Auto) 18.4 L (20-40) % Lassen % (Auto) 8.6 (2-11) % Eos % (Auto) 0.2 (0-4) % Baso % (Auto) 0.4 (0-2) % Lymph # (Auto) 3.1 (1.2-4.9) X10*3/uL Lassen # (Auto) 1.5 H (0.1-1.2) X10*3/uL Eos # (Auto) 0.0 (0.0-0.4) X10*3/uL Baso # (Auto) 0.1 (0.0-0.2) X10*3/uL Abs Immat Gran (auto) 0.21 H (0.00-0.03) X10*3/uL Absolute Neuts (auto) 12.0 H (2.0-8.3) x10*3/uL Absolute Nucleated RBC 0.000 (0.0-0.012) X10*3/uL Nucleated RBC % (auto) 0.0 (0.0-0.2) /100WBC Sodium 135 (135-145) mmol/L Potassium 3.3 D (3.3-5.1) mmol/L Chloride 97 (96-108) mmol/L Carbon Dioxide 25 (22-29) mmol/L Anion Gap 16 (12-20) BUN 10 (9-16) mg/dL Creatinine 0.64 (0.5-1.4) mg/dL Estim Creat Clear Calc 106.7 Estimated GFR > 60 POC Glucose 145 H (60-115) mg/dL Random Glucose 144 H (60-115) mg/dL Lactic Acid 3.2 H* (0.5-2.0) mmol/L Lactic Acid F/U @ 2Hr (0.5-2.0) mmol/L Calcium 9.0 D (8.4-10.2) mg/dL Magnesium 1.8 (1.6-2.6) mg/dL Total Bilirubin 0.5 (0.0-1.0) mg/dL AST 20 (5-37) U/L ALT 33 (0-40) U/L Alkaline Phosphatase 88 (39-117) U/L Total Protein 6.5 (6.5-8.0) g/dL Albumin 3.6 (3.5-5.0) g/dL Urine Color Dark Yellow Urine Appearance Clear Urine pH >= 9.0 (5.0-9.0) Ur Specific [place] 1.020 (1.005-1.025) Urine Protein 100 (2+) H (Neg-Trace) mg/dL Urine Glucose (UA) Negative (Negative) mg/dL Urine Ketones Negative (Negative) mg/dL Urine Blood Negative (Negative) Urine Nitrite Negative (Negative) Ur Leukocyte Esterase Trace H (Negative) Urine RBC 0-2 (0-2) /HPF Urine WBC 0-5 (0-5) /HPF Ur Squamous Epith Cells 0-2 (0-2) /HPF Urine Bacteria None Seen (None Seen) Hyaline Casts 0-2 (0-2) /LPF Urine Opiates Screen Not Detected (Not Detect) Urine Fentanyl Screen POSITIVE H (Not Detect) Ur Barbiturates Screen Not Detected (Not Detect) Ur Phencyclidine Scrn Not Detected (Not Detect) Ur Amphetamines Screen Not Detected (Not Detect) U Benzodiazepines Scrn Not Detected (Not Detect) Urine Cocaine Screen Not Detected (Not Detect) U Marijuana (THC) Screen POSITIVE H (Not Detect) Ethyl Alcohol 500 H* mg/dL 09/07/23 09/07/23 Range/Units 13:13 14:44 WBC (4.8-10.8) X10*3/uL RBC (4.60-5.80) X10*6/uL Hgb (14.0-18.0) g/dl Hct (42.0-52.0) % MCV (80.0-98.0) fL MCH (27.0-33.0) pg MCHC (31.0-36.0) g/dl RDW (11.0-16.0) % Plt Count (160-400) X10*3/uL MPV (9.4-12.4) fL Immature Gran % (Auto) (0.0-0.4) % Neut % (Auto) (45-73) % Lymph % (Auto) (20-40) % Lassen % (Auto) (2-11) % Eos % (Auto) (0-4) % Baso % (Auto) (0-2) % Lymph # (Auto) (1.2-4.9) X10*3/uL Lassen # (Auto) (0.1-1.2) X10*3/uL Eos # (Auto) (0.0-0.4) X10*3/uL Baso # (Auto) (0.0-0.2) X10*3/uL Abs Immat Gran (auto) (0.00-0.03) X10*3/uL Absolute Neuts (auto) (2.0-8.3) x10*3/uL Absolute Nucleated RBC (0.0-0.012) X10*3/uL Nucleated RBC % (auto) (0.0-0.2) /100WBC Sodium (135-145) mmol/L Potassium (3.3-5.1) mmol/L Chloride (96-108) mmol/L Carbon Dioxide (22-29) mmol/L Anion Gap (12-20) BUN (9-16) mg/dL Creatinine (0.5-1.4) mg/dL Estim Creat Clear Calc Estimated GFR POC Glucose 137 H (60-115) mg/dL Random Glucose (60-115) mg/dL Lactic Acid (0.5-2.0) mmol/L Lactic Acid F/U @ 2Hr 3.0 H* (0.5-2.0) mmol/L Calcium (8.4-10.2) mg/dL Magnesium (1.6-2.6) mg/dL Total Bilirubin (0.0-1.0) mg/dL AST (5-37) U/L ALT (0-40) U/L Alkaline Phosphatase (39-117) U/L Total Protein (6.5-8.0) g/dL Albumin (3.5-5.0) g/dL Urine Color Urine Appearance Urine pH (5.0-9.0) Ur Specific [place] (1.005-1.025) Urine Protein (Neg-Trace) mg/dL Urine Glucose (UA) (Negative) mg/dL Urine Ketones (Negative) mg/dL Urine Blood (Negative) Urine Nitrite (Negative) Ur Leukocyte Esterase (Negative) Urine RBC (0-2) /HPF Urine WBC (0-5) /HPF Ur Squamous Epith Cells (0-2) /HPF Urine Bacteria (None Seen) Hyaline Casts (0-2) /LPF Urine Opiates Screen (Not Detect) Urine Fentanyl Screen (Not Detect) Ur Barbiturates Screen (Not Detect) Ur Phencyclidine Scrn (Not Detect) Ur Amphetamines Screen (Not Detect) U Benzodiazepines Scrn (Not Detect) Urine Cocaine Screen (Not Detect) U Marijuana (THC) Screen (Not Detect) Ethyl Alcohol mg/dL ABG Data Attestation ABG: I personally reviewed and interpreted this ABG as follows: Independent Interpretation I performed an independent interpretation of an: EKG (Ventricular rate of 87 [place] normal, QRS normal, QT/QTC normal EKG normal sinus rhythm incomplete right bundle-branch block no signs of acute ischemia), Plain X-Ray (XR/XR chest 1V IMPRESSION: No acute pulmonary pathology. ) and CT Scan ( CT/CT head/brain wo IV con IMPRESSION: Chronic microvascular ischemic changes with no CT evidence of acute intracranial abnormality. ) Radiology Impression Discussion of test interpretation with radiology: I have reviewed the radiologist's reading. External Record Review External record reviewed: Inpatient record, Office record, Outpatient record, Prior outpatient labs, Prior outpatient radiology, Primary care record and Outside ED record Chronic Conditions Patient?s care impacted by: Other (Polysubstance abuse, alcohol use disorder, hepatitis-C, anxiety, depression) Social Determinants Patient?s care significantly limited by Social Determinants of Health including: Inadequate housing, Low income, Alcoholism and drug addiction in family, Problems related to primary support group, Unemployment, Problems related to employment and Other Social Determinant of Health Critical Care Time Critical Care Time Critical Care Time: Yes Total Critical Care Time: 60 Attestation: I attest to this time spent taking care of the patient, obtaining history, physical, reviewing labs, imaging, speaking to my attending, speaking to specialist. Discharge Plan Discharge Clinical Impression: Acute hypoxemic respiratory failure, Acute alcohol abuse Patient Disposition: Admitted As Inpatient
[2023-09-07] MEDS: Naloxone HCl Nasal 4 MG SPRAY NOSTRILALT (10:48)
[2023-09-07] MEDS: ondansetron HCL 4 MG/2 ML VIAL IVPUSH (10:58)
[2023-09-07 11:00] LABS: Glucose, Whole Blood 145 mg/dL (60-115)
[2023-09-07 11:01] LABS: MANUAL DIFF FLAG NO
[2023-09-07 11:02] LABS: Basophils Absolute Auto 0.1 X10*3/uL (0.0-0.2); Basophils Percent Auto 0.4 % (0-2); Eosinophils Percent Auto 0.2 % (0-4); Hematocrit 34.5 % (42.0-52.0); Hemoglobin 11.8 g/dl (14.0-18.0); Imm Gran Abs Auto 0.21 X10*3/uL (0.00-0.03); Imm Gran Pct Auto 1.2 % (0.0-0.4); Lymphocytes Absolute Auto 3.1 X10*3/uL (1.2-4.9); Lymphocytes Percent Auto 18.4 % (20-40); Mean Corpuscular HGB Conc 34.2 g/dl (31.0-36.0); Mean Corpuscular Hemoglobin 28.4 pg (27.0-33.0); Mean Corpuscular Volume 83.1 fL (80.0-98.0); Mean Platelet Volume 9.5 fL (9.4-12.4); Monocytes Absolute Auto 1.5 X10*3/uL (0.1-1.2); Monocytes Percent Auto 8.6 % (2-11); Neutrophils Percent Auto 71.2 % (45-73); Platelet Count 250 X10*3/uL (160-400); Red Blood Count 4.15 X10*6/uL (4.60-5.80); White Blood Count 16.9 X10*3/uL (4.8-10.8)
[2023-09-07] MEDS: 0.9 % Sodium Chloride 1,800 ML 1800 ML IV (11:13)
[2023-09-07 11:17] LABS: Alanine Aminotransferase 33 U/L (0-40); Albumin Level 3.6 g/dL (3.5-5.0); Alkaline Phosphatase 88 U/L (39-117); Anion Gap 16 (12-20); Aspartate Amino Transferase 20 U/L (5-37); Bilirubin Total 0.5 mg/dL (0.0-1.0); Blood Urea Nitrogen 10 mg/dL (9-16); Carbon Dioxide 25 mmol/L (22-29); Chloride 97 mmol/L (96-108); Creatinine Clr Calc Pharmacy 106.7; Estimated Glomerular Filt Rate > 60; Ethanol 500 mg/dL; Glucose Random 144 mg/dL (60-115); Magnesium 1.8 mg/dL (1.6-2.6); Potassium 3.3 mmol/L (3.3-5.1); Sodium 135 mmol/L (135-145); Total Protein 6.5 g/dL (6.5-8.0)
[2023-09-07 11:18] LABS: Lactic Acid 3.2 mmol/L (0.5-2.0)
[2023-09-07] MEDS: cefTRIAXone sodium 1 GM in 0.9 % Sodium Chloride 50 ML IV (11:18)
[2023-09-07 11:34] LABS: Appearance Urine Clear; Color Urine Dark Yellow; Glucose Urine UA Negative (Negative); Leukocyte Esterase Urine Trace (Negative); Nitrite Urine Negative (Negative); PH >= 9.0 (5.0-9.0); UMIC TRIGGER UACC YES; Urine Blood Negative (Negative); Urine Ketones Negative (Negative); Urine Protein 100 (2+) mg/dL (Neg-Trace)
[2023-09-07 11:36] LABS: Bacteria Urine None Seen (None Seen); Hyaline Casts Urine 0-2 /LPF (0-2); RBC Urine 0-2 /HPF (0-2); Squamous Epithelial Cell Urine 0-2 /HPF (0-2); WBC Urine 0-5 /HPF (0-5)
[2023-09-07 11:47] LABS: Amphetamine Screen Urine Not Detected (Not Detect); Barbiturates, Urine Not Detected (Not Detect); Benzodiazepines Screen Urine Not Detected (Not Detect); Cannabinoid Screen Urine POSITIVE (Not Detect); Cocaine Screen Urine Not Detected (Not Detect); Fentanyl, urine POSITIVE (Not Detect); Opiate Screen Urine Not Detected (Not Detect); Phencyclidine Screen Urine Not Detected (Not Detect)
[2023-09-07] MEDS: Azithromycin 500 MG in 0.9 % Sodium Chloride 250 ML 125 MG IV (11:53)
[2023-09-07 13:00] LABS: Reflex Lactate? Lactic Acid Added
[2023-09-07 14:47] LABS: Glucose, Whole Blood 137 mg/dL (60-115)
--- NOTE | 2023-09-07 15:04 | PC.NURSE ---
assisted in intubation of pt following desat to 80s and pt being unable to maintain airway. 1439 VS: HR 87, 80% being bagged with BVM, BP 100/53 1442: 5mg Etomidate given IVP, 50mg Rocuronium given IVP VS: HR 95, 39RR, 100% being bagged with BVM, 94/55 Intubated at 1443 with a 7.0 ET tube by MD Filiberto Henry at bedside to assist, + color change, 24 at the lip pt POC 137 1445: VS: HR 100, 100% intubated at this time, 20RR, BP 64/41 2L NS started on pressure bags infusing through 20G in L forearm 1449: VS: 96 HR, 97% in mech vent, RT at bedaside to adjust settings, 20R, End tidal 21, BP 73/48 plan to start precedex 1454: Precedex started, at 17.5 ml/hr, bed weight 70.2 kg VS: HR 94, O2 88% mech vent, 20RR, 23 end tidal, BP 93/56. new 18G placed in pts R ankle.
[2023-09-07] MEDS: dexmedeTOMIDidine HCL/NS 400 MCG/100 ML INFUS..BTL 17.55 MCG IVCONT (15:05)
[2023-09-07 15:17] LABS: Reflex Lactate? 2 Y
[2023-09-07 15:36] LABS: ABG Base Excess -4.7 mmol/L; ABG HCO3 19 mmol/L (22-26); ABG pCO2 33 mmHg (32-45); ABG pH 7.37 (7.35-7.45); ABG pO2 89 mmHg (83-108)
[2023-09-07 15:38] LABS: ABG Refer to POC result
[2023-09-07] MEDS: Etomidate 20 MG/10 ML VIAL 5 MG IVPUSH (15:47)
[2023-09-07] MEDS: Rocuronium Bromide 50 MG/5 ML VIAL IVPUSH (15:49)
[2023-09-07 15:57] LABS: Ethanol 495 mg/dL
--- NOTE | 2023-09-07 16:07 | PHA.MEDREC ---
Addendum entered by Alberto Coats [facility] 09/08/23 09:19: Spoke to Liane at [facility] in [place]. She said patient is no longer at the facility and she doesn't know when he left the facility nor what medications he was on while there. Checked with nurse that's taking care of patient in ICU. Patient is still intubated. Original Note: Pharmacy Consult ? Medication Reconciliation Pharmacy has completed the medication reconciliation. Patient is currently intubated, cannot confirm meds with patient at this moment. Called patients brother but he had no information on his medications. Also called [facility] but was unable to reach anybody. I contacted [facility], [facility], [facility] in [facility],and [facility]. Per pharmacies, patient last filled prescriptions on 06/11/23 for Eliquis 5mg BID and Hydroxyzine 50mg Q12H. He also filled Keppra 750mg BID on 07/14/23. These were all filled at [facility] in [place]. Keppra was delivered to his sober house ([facility] in [place]) He currently has a prescription for Omeprazole 40mg QD filled 09/06 but not picked up at [facility].Will include on list because patient is supposed to be on it. There are no other recent fills with 90 day supplies. Patient has a history of non adherence, pharmacy will have to follow up when patient is extubated as patient may be taking older prescriptions.
[2023-09-07] MEDS: Norepinephrine Bitartrate/D5W 8 MG/250 ML PLAST..BAG 6.58 MG IV (16:20)
[2023-09-07 16:27] LABS: Anion Gap 14 (12-20); Blood Urea Nitrogen 10 mg/dL (9-16); Calcium 7.1 mg/dL (8.4-10.2); Carbon Dioxide 20 mmol/L (22-29); Chloride 106 mmol/L (96-108); Creatinine Clr Calc Pharmacy 132.8; Estimated Glomerular Filt Rate > 60; Glucose Random 122 mg/dL (60-115); Potassium 2.8 mmol/L (3.3-5.1); Sodium 137 mmol/L (135-145)
--- NOTE | 2023-09-07 16:42 | P.HPCC_ITS ---
History of Present Illness Date of Service: 09/07/23 Chief Complaint: Toxic encephalopathy, alcohol intoxication, acute respiratory failure 57-year-old with underlying history of alcohol and substance abuse, hepatitis-C found unresponsive after drinking 2 pints of vodka and brought to emergency room with alcohol level of 500, unable to protect his airway developed acute hypoxia likely secondary to aspiration and intubated in the emergency room with hypotension resulting intravascular volume depletion and sedation requiring pressor support. Review of Systems 2 Review of Systems: Yes unobtainable due to endotracheal tube, Unobtainable due to mental condition and Unobtainable due to mental status PMFSH Past Medical History Medical History Substance abuse EtOH dependence Hypertension Family History Family History Father Stomach cancer Surgical History Surgical History Hx of endoscopy History of total right hip replacement Social History Social History Alcohol intake: current Alcohol intake frequency: 3 or more drinks per day Alcohol type: beer and hard liquor Patient Tobacco Use Status: Former Tobacco user Use of substances other than those prescribed or required for medical reasons: Yes Substance Use Type: Heroin Advance Directives: No Advance Directives Information Provided: No service: No Current occupational status: unemployed Meds Allergies Allergy/AdvReac Type Severity Reaction Status Date / Time bee pollen [BEE STINGS] Allergy Severe SWELLING Verified 09/06/23 10:30 Active Medications: Current Medications Chlorhexidine Gluconate (Chlorhexidine Gluc Oral Rinse 15 Ml Mouthwash) 15 ml BUCCAL Q8H JEAN Famotidine (Famotidine/Pf 20 Mg/2 Ml Vial) 20 mg IVPUSH DAILY [facility] Heparin Sodium (Porcine) (Heparin Sodium,Porcine 5,000 Unit/Ml Vial) 5,000 unit SUBCUT Q8H JEAN Dexmedetomidine HCl (Precedex) 400 mcg in 100 mls @ 0 mls/hr IVCONT .Q0M JEAN; Protocol Last Titration: 09/07/23 15:39 Dose: 1.2 mcg/kg/hr, 21.06 mls/hr Propofol (Diprivan) 1,000 mg in 100 mls @ 0 mls/hr IVCONT .Q0M JEAN; Protocol Ampicillin Sodium/Sulbactam (Sodium 3 gm/ Sodium Chloride) 100 mls @ 200 mls/hr IV Q6H JEAN Norepinephrine Bitartrate (Levophed) 8 mg in 250 mls @ 0 mls/hr IV .Q0M JEAN; Protocol Last Titration: 09/07/23 16:37 Dose: 0.09 mcg/kg/min, 11.85 mls/hr Potassium Chloride (Potassium Chloride/H20) 10 meq in 100 mls @ 100 mls/hr IV Q1H JEAN Stop: 09/07/23 20:29 Home Medications Medication Instructions Recorded Confirmed Last Taken Type folic acid 1 mg tablet 1 mg PO DAILY 11/04/22 11/15/22 11/03/22 History gabapentin 300 mg capsule 300 mg PO BID 11/04/22 11/15/22 11/04/22 History lisinopril 10 mg tablet 10 mg PO DAILY 11/04/22 12/28/22 11/04/22 History melatonin 5 mg tablet 5 mg BEDTIME 11/04/22 12/28/22 11/03/22 History thiamine HCl (vitamin B1) 100 mg 100 mg PO DAILY 11/04/22 11/15/22 11/04/22 History tablet aspirin 81 mg tablet,delayed 81 mg PO DAILY 11/15/22 11/15/22 Unknown History release ferrous sulfate 325 mg (65 mg 325 mg PO TID 12/28/22 12/28/22 Unknown History iron) tablet,delayed release nicotine (polacrilex) 4 mg gum 4 mg PO Q4H 12/28/22 12/28/22 Unknown History acamprosate 333 mg tablet,delayed 666 mg PO TID 05/19/23 Unknown History release duloxetine 30 mg capsule,delayed 30 mg PO BID 05/19/23 Unknown History release hydroxyzine HCl 25 mg tablet 25 mg PO TID 05/19/23 Unknown History hydroxyzine HCl 50 mg tablet 50 mg PO Q12H 09/07/23 09/07/23 Unknown History levetiracetam 750 mg tablet 750 mg PO BID 09/07/23 09/07/23 Unknown History (Kepp) omeprazole 40 mg capsule,delayed 40 mg PO DAILY 09/07/23 09/07/23 Unknown History release Physical Exam 2 Vital Signs: Vital Signs: Last Vital Signs Temp 97.4 F 09/07/23 10:31 Pulse 59 09/07/23 16:37 Resp 18 09/07/23 15:39 BP 78/51 L 09/07/23 16:37 Pulse Ox 95 09/07/23 15:05 O2 Del Method Mechanical Ventil ation 09/07/23 15:02 O2 Flow Rate 50 09/07/23 15:02 FiO2 70 09/07/23 16:26 BMI result Body Mass Index 21.9 Const: General: no acute distress and other (Sedated on the vent) Eyes: Sclerae: sclerae normal Neck: Neck: Yes no lymphadenopathy, Yes trachea midline and Yes supple Resp: Effort & Inspection: normal respiratory effort and no respiratory distress Auscultation: clear to auscultation bilaterally Cardio: Rate: regular rate Rhythm: regular rhythm Heart sounds: no gallops, no murmurs and no rubs GI: Palpation (GI): Soft to palpation and Other GI palpation findings present ( Nontender) Auscultation: normal bowel sounds Extrem: General: Yes no pedal edema, No clubbing and No cyanosis Results Labs 09/07/23 10:55 09/07/23 15:37 Labs: Laboratory Results - last 24 hr 09/07/23 09/07/23 09/07/23 10:47 10:55 11:18 MCV 83.1 MCH 28.4 MCHC 34.2 RDW 15.0 Plt Count 250 MPV 9.5 Immature Gran % (Auto) 1.2 H Neut % (Auto) 71.2 Lymph % (Auto) 18.4 L [place] % (Auto) 8.6 Eos % (Auto) 0.2 Baso % (Auto) 0.4 Lymph # (Auto) 3.1 [place] # (Auto) 1.5 H Eos # (Auto) 0.0 Baso # (Auto) 0.1 Abs Immat Gran (auto) 0.21 H Absolute Neuts (auto) 12.0 H Absolute Nucleated RBC 0.000 Nucleated RBC % (auto) 0.0 O2 Saturation ABG pH at Pt Temp ABG pCO2 at Pt Temp ABG pO2 at Pt Temp ABG HCO3 ABG Base Excess (Actual) Anion Gap 16 Estim Creat Clear Calc 106.7 Estimated GFR > 60 POC Glucose 145 H Random Glucose 144 H Lactic Acid 3.2 H* Lactic Acid F/U @ 2Hr Calcium 9.0 D Magnesium 1.8 Total Bilirubin 0.5 AST 20 ALT 33 Alkaline Phosphatase 88 Total Protein 6.5 Albumin 3.6 Urine Color Dark Yellow Urine Appearance Clear Urine pH >= 9.0 Ur Specific [place] 1.020 Urine Protein 100 (2+) H Urine Glucose (UA) Negative Urine Ketones Negative Urine Blood Negative Urine Nitrite Negative Ur Leukocyte Esterase Trace H Urine RBC 0-2 Urine WBC 0-5 Ur Squamous Epith Cells 0-2 Urine Bacteria None Seen Hyaline Casts 0-2 Urine Opiates Screen Not Detected Urine Fentanyl Screen POSITIVE H Ur Barbiturates Screen Not Detected Ur Phencyclidine Scrn Not Detected Ur Amphetamines Screen Not Detected U Benzodiazepines Scrn Not Detected Urine Cocaine Screen Not Detected U Marijuana (THC) Screen POSITIVE H Ethyl Alcohol 500 H* 09/07/23 09/07/23 09/07/23 13:13 14:44 15:29 MCV MCH MCHC RDW Plt Count MPV Immature Gran % (Auto) Neut % (Auto) Lymph % (Auto) [place] % (Auto) Eos % (Auto) Baso % (Auto) Lymph # (Auto) [place] # (Auto) Eos # (Auto) Baso # (Auto) Abs Immat Gran (auto) Absolute Neuts (auto) Absolute Nucleated RBC Nucleated RBC % (auto) O2 Saturation 97.0 ABG pH at Pt Temp 7.37 ABG pCO2 at Pt Temp 33 ABG pO2 at Pt Temp 89 ABG HCO3 19 L ABG Base Excess (Actual) -4.7 Anion Gap Estim Creat Clear Calc Estimated GFR POC Glucose 137 H Random Glucose Lactic Acid Lactic Acid F/U @ 2Hr 3.0 H* Calcium Magnesium Total Bilirubin AST ALT Alkaline Phosphatase Total Protein Albumin Urine Color Urine Appearance Urine pH Ur Specific [place] Urine Protein Urine Glucose (UA) Urine Ketones Urine Blood Urine Nitrite Ur Leukocyte Esterase Urine RBC Urine WBC Ur Squamous Epith Cells Urine Bacteria Hyaline Casts Urine Opiates Screen Urine Fentanyl Screen Ur Barbiturates Screen Ur Phencyclidine Scrn Ur Amphetamines Screen U Benzodiazepines Scrn Urine Cocaine Screen U Marijuana (THC) Screen Ethyl Alcohol 09/07/23 15:37 MCV MCH MCHC RDW Plt Count MPV Immature Gran % (Auto) Neut % (Auto) Lymph % (Auto) [place] % (Auto) Eos % (Auto) Baso % (Auto) Lymph # (Auto) [place] # (Auto) Eos # (Auto) Baso # (Auto) Abs Immat Gran (auto) Absolute Neuts (auto) Absolute Nucleated RBC Nucleated RBC % (auto) O2 Saturation ABG pH at Pt Temp ABG pCO2 at Pt Temp ABG pO2 at Pt Temp ABG HCO3 ABG Base Excess (Actual) Anion Gap 14 Estim Creat Clear Calc 132.8 Estimated GFR > 60 POC Glucose Random Glucose 122 H Lactic Acid Lactic Acid F/U @ 2Hr Calcium 7.1 L D Magnesium Total Bilirubin AST ALT Alkaline Phosphatase Total Protein Albumin Urine Color Urine Appearance Urine pH Ur Specific [place] Urine Protein Urine Glucose (UA) Urine Ketones Urine Blood Urine Nitrite Ur Leukocyte Esterase Urine RBC Urine WBC Ur Squamous Epith Cells Urine Bacteria Hyaline Casts Urine Opiates Screen Urine Fentanyl Screen Ur Barbiturates Screen Ur Phencyclidine Scrn Ur Amphetamines Screen U Benzodiazepines Scrn Urine Cocaine Screen U Marijuana (THC) Screen Ethyl Alcohol 495 H* Imaging Radiologist's Impressions: Impressions Head CT 09/07/23 10:27 IMPRESSION: Chronic microvascular ischemic changes with no CT evidence of acute intracranial abnormality. Chest X-Ray 09/07/23 11:54 IMPRESSION: No acute pulmonary pathology. Chest CT 09/07/23 13:33 IMPRESSION: Limited examination secondary to motion and lack of IV contrast. 1. A pleural-based opacity in the left lung base is decreased in size and now less masslike compared to 03/31/2023. 2. Increase bronchial wall thickening as well as a few new bilateral groundglass and patchy airspace opacities, suggestive of an infectious/inflammatory process. Recommend short-term follow-up CT chest in 3 months. 3. Increased wall thickening of the lower esophagus/gastroesophageal junction with worsening upstream stagnation and patulous appearance of the esophagus which constitutes a high risk factor for aspiration. If not recently obtained, further evaluation with upper endoscopy is highly recommended to rule out underlying neoplasia. 4. Stable aneurysmatic dilatation of the ascending thoracic aorta as well as unchanged focal contour abnormality along the inferior aspect of the aortic arch with calcified wall that could reflect sequela of a chronic aortic injury. Severe multivessel coronary calcifications. Follow up with product management specialist guidance is recommended. Chest X-Ray 09/07/23 15:17 IMPRESSION: The tip of a new endotracheal tube projects over the trachea at the level of the clavicles, approximately 6 cm above the steph. Assessment and Plan (1) Acute hypoxemic respiratory failure: Status: Acute (2) Pulmonary aspiration: Status: Acute (3) Alcohol intoxication: Qualifiers: Complication of substance-induced condition: uncomplicated Qualified Code(s): F10.920 - Alcohol use, unspecified with intoxication, uncomplicated Status: Inactive (4) Polysubstance abuse: Status: Acute (5) Polysubstance use disorder: Status: Inactive Plan Assessment: 57-year-old gentleman admitted with polysubstance abuse, acute alcohol intoxication resulting in toxic encephalopathy and pulmonary aspiration with acute hypoxia requiring intubation and ventilatory support Plan: Neuro: Toxic encephalopathy secondary to polysubstance abuse and alcohol intoxication. Continue to titrate off sedatives as tolerated. Cardiac: Pressor requirements and hypotension secondary to intravascular volume depletion and need for sedatives. No evidence of sepsis. Continue to titrate off as tolerated. Pulmonary: Acute hypoxic respiratory failure secondary to pulmonary aspiration on the background of alcohol intoxication requiring intubation in resultant support. Continue to titrate off as tolerated. Renal: No acute issues. Endo: No acute issues. GI: No acute issues. ID: Empirically covered for aspiration pneumonitis with Unasyn. Heme/Onc: No acute issues. Psych: No acute issues. Miscellaneous: No acute issues. Prophylaxis: Heparin, famotidine Diet: NPO Critical care time spent: 60 minutes
[2023-09-07] MEDS: Ampicillin Sodium/Sulbactam Na 3 GM in 0.9 % Sodium Chloride 100 ML IV ×2 (16:43→21:44)
[2023-09-07] MEDS: Potassium Chloride/H20 10 MEQ/100 ML PIGGYBACK 100 MEQ IV ×4 (16:44→20:28)
[2023-09-07] MEDS: Heparin Sodium,Porcine 5,000 UNIT/ML VIAL 5000 UNIT SUBCUT (16:44)
[2023-09-07] MEDS: Chlorhexidine Gluc Oral Rinse 15 ML MOUTHWASH BUCCAL (16:44)
[2023-09-07] MEDS: propofoL 1,000 MG/100 ML VIAL 12.64 MG IVCONT ×2 (16:47→21:35)
[2023-09-07 18:13] LABS: ~Lactic Acid-LAB USE ONLY 2.7 mmol/L (0.5-2.0)
[2023-09-07] MEDS: dexmedeTOMIDidine HCL/NS 400 MCG/100 ML INFUS..BTL 7.02 MCG IVCONT (19:23)
[2023-09-08] VITALS (40 sets, daily range): BP systolic 93–167; BP diastolic 44–78; PULSE 68–90; RESP 13–24; TEMP 35–37.4; O2SAT 90–100; BMI 21.9
[2023-09-08] MEDS: Norepinephrine Bitartrate/D5W 8 MG/250 ML PLAST..BAG 23.69 MG IV (00:03)
[2023-09-08] MEDS: Heparin Sodium,Porcine 5,000 UNIT/ML VIAL 5000 UNIT SUBCUT ×4 (00:07→22:31)
[2023-09-08] MEDS: Chlorhexidine Gluc Oral Rinse 15 ML MOUTHWASH BUCCAL ×2 (00:07→07:27)
[2023-09-08] MEDS: propofoL 1,000 MG/100 ML VIAL 16.85 MG IVCONT ×2 (02:32→08:51)
[2023-09-08] MEDS: Ampicillin Sodium/Sulbactam Na 3 GM in 0.9 % Sodium Chloride 100 ML IV ×4 (03:39→22:28)
[2023-09-08 04:51] LABS: Basophils Absolute Auto 0.1 X10*3/uL (0.0-0.2); Basophils Percent Auto 0.6 % (0-2); Eosinophils Percent Auto 0.1 % (0-4); Hematocrit 33.8 % (42.0-52.0); Imm Gran Abs Auto 0.64 X10*3/uL (0.00-0.03); Lymphocytes Absolute Auto 2.2 X10*3/uL (1.2-4.9); Lymphocytes Percent Auto 13.5 % (20-40); MANUAL DIFF FLAG SCAN; Mean Corpuscular HGB Conc 32.5 g/dl (31.0-36.0); Mean Corpuscular Hemoglobin 28.6 pg (27.0-33.0); Mean Platelet Volume 10.2 fL (9.4-12.4); Monocytes Absolute Auto 1.2 X10*3/uL (0.1-1.2); Monocytes Percent Auto 7.5 % (2-11); Neutrophils Absolute Auto 11.9 x10*3/uL (2.0-8.3); Neutrophils Percent Auto 74.3 % (45-73); Platelet Count 89 X10*3/uL (160-400); Red Blood Count 3.84 X10*6/uL (4.60-5.80); Red Cell Distribution Width 15.5 % (11.0-16.0)
[2023-09-08 04:57] LABS: VBG Base Excess -4.3 mmol/L; VBG HCO3 18 mmol/L (22-26); VBG pCO2 27 mmHg; VBG pH 7.43 (7.32-7.43); VBG pO2 73 mmHg
[2023-09-08 05:06] LABS: Venous Blood Gas Refer to POC result
[2023-09-08 05:18] LABS: Alanine Aminotransferase 26 U/L (0-40); Albumin Level 2.8 g/dL (3.5-5.0); Alkaline Phosphatase 72 U/L (39-117); Anion Gap 18 (12-20); Aspartate Amino Transferase 19 U/L (5-37); Bilirubin Total 0.2 mg/dL (0.0-1.0); Blood Urea Nitrogen 8 mg/dL (9-16); Calcium 7.4 mg/dL (8.4-10.2); Carbon Dioxide 15 mmol/L (22-29); Chloride 109 mmol/L (96-108); Creatinine Clr Calc Pharmacy 104.7; Estimated Glomerular Filt Rate > 60; Glucose Random 125 mg/dL (60-115); Magnesium 1.4 mg/dL (1.6-2.6); Phosphorus 3.3 mg/dL (2.7-4.5); Potassium 3.6 mmol/L (3.3-5.1); Sodium 138 mmol/L (135-145); Total Protein 5.3 g/dL (6.5-8.0)
[2023-09-08 05:27] LABS: SLIDE REVIEW VERIFIED
[2023-09-08] MEDS: Magnesium Sulfate/H2O 2 GM/50 ML PIGGYBACK IV (05:31)
[2023-09-08] MEDS: Albumin Human 25 % 100 ML IV ×5 (05:39→19:49)
[2023-09-08] MEDS: Famotidine/PF 20 MG/2 ML VIAL IVPUSH (07:27)
[2023-09-08] MEDS: Potassium Chloride/H20 10 MEQ/100 ML PIGGYBACK 100 MEQ IV ×4 (09:02→12:19)
[2023-09-08] MEDS: Norepinephrine Bitartrate/D5W 8 MG/250 ML PLAST..BAG 7.9 MG IV (09:15)
--- NOTE | 2023-09-08 09:41 | P.PNCC_ITS ---
Subjective Subjective Date of Service: 09/08/23 Interval History: 57-year-old with underlying history of alcohol and substance abuse, hepatitis-C found unresponsive after drinking 2 pints of vodka and brought to emergency room with alcohol level of 500, unable to protect his airway developed acute hypoxia likely secondary to aspiration and intubated in the emergency room with hypotension resulting intravascular volume depletion and sedation requiring pressor support. No events overnight. Pressor requirements are improving. Critical Care Time (minutes): 60 Physical Exam 2 Vital Signs: Vital Signs: Last Vital Signs Temp 99.2 F 09/08/23 08:00 Pulse 70 09/08/23 09:00 Resp 20 09/08/23 09:00 BP 131/62 09/08/23 09:00 Pulse Ox 96 09/08/23 09:00 O2 Del Method Mechanical Ventil ation 09/08/23 09:00 O2 Flow Rate 50 09/07/23 15:02 FiO2 25 09/08/23 09:33 BMI result Body Mass Index 21.9 Const: General: no acute distress and other (Sedated on the vent) Eyes: Sclerae: sclerae normal EOM: EOMs intact bilaterally Neck: Neck: Yes no lymphadenopathy, Yes trachea midline and Yes supple Resp: Auscultation: clear to auscultation bilaterally Cardio: Rate: regular rate Rhythm: regular rhythm Heart sounds: no gallops, no murmurs and no rubs GI: Palpation (GI): Soft to palpation and Other GI palpation findings present ( Nontender) Auscultation: normal bowel sounds Extrem: General: Yes no pedal edema, No clubbing and No cyanosis Objective Data Labs 09/08/23 04:40 09/08/23 04:39 Labs: Laboratory Results - last 24 hr 09/07/23 09/07/23 09/07/23 10:47 10:55 11:18 WBC 16.9 H RBC 4.15 L Hgb 11.8 L Hct 34.5 L MCV 83.1 MCH 28.4 MCHC 34.2 RDW 15.0 Plt Count 250 MPV 9.5 Immature Gran % (Auto) 1.2 H Neut % (Auto) 71.2 Lymph % (Auto) 18.4 L [place] % (Auto) 8.6 Eos % (Auto) 0.2 Baso % (Auto) 0.4 Lymph # (Auto) 3.1 [place] # (Auto) 1.5 H Eos # (Auto) 0.0 Baso # (Auto) 0.1 Abs Immat Gran (auto) 0.21 H Absolute Neuts (auto) 12.0 H Absolute Nucleated RBC 0.000 Nucleated RBC % (auto) 0.0 Smear Tech's Comments O2 Saturation ABG pH at Pt Temp ABG pCO2 at Pt Temp ABG pO2 at Pt Temp ABG HCO3 ABG Base Excess (Actual) VBG pH VBG pCO2 VBG pO2 VBG HCO3 VBG O2 Saturation VBG Base Excess Sodium 135 Potassium 3.3 D Chloride 97 Carbon Dioxide 25 Anion Gap 16 BUN 10 Creatinine 0.64 Estim Creat Clear Calc 106.7 Estimated GFR > 60 POC Glucose 145 H Random Glucose 144 H Lactic Acid 3.2 H* Lactic Acid F/U @ 2Hr Lactic Acid F/U @ 4Hr Calcium 9.0 D Phosphorus Magnesium 1.8 Total Bilirubin 0.5 AST 20 ALT 33 Alkaline Phosphatase 88 Total Protein 6.5 Albumin 3.6 Urine Color Dark Yellow Urine Appearance Clear Urine pH >= 9.0 Ur Specific [place] 1.020 Urine Protein 100 (2+) H Urine Glucose (UA) Negative Urine Ketones Negative Urine Blood Negative Urine Nitrite Negative Ur Leukocyte Esterase Trace H Urine RBC 0-2 Urine WBC 0-5 Ur Squamous Epith Cells 0-2 Urine Bacteria None Seen Hyaline Casts 0-2 Urine Opiates Screen Not Detected Urine Fentanyl Screen POSITIVE H Ur Barbiturates Screen Not Detected Ur Phencyclidine Scrn Not Detected Ur Amphetamines Screen Not Detected U Benzodiazepines Scrn Not Detected Urine Cocaine Screen Not Detected U Marijuana (THC) Screen POSITIVE H Ethyl Alcohol 500 H* 09/07/23 09/07/23 09/07/23 13:13 14:44 15:29 WBC RBC Hgb Hct MCV MCH MCHC RDW Plt Count MPV Immature Gran % (Auto) Neut % (Auto) Lymph % (Auto) [place] % (Auto) Eos % (Auto) Baso % (Auto) Lymph # (Auto) [place] # (Auto) Eos # (Auto) Baso # (Auto) Abs Immat Gran (auto) Absolute Neuts (auto) Absolute Nucleated RBC Nucleated RBC % (auto) Smear Tech's Comments O2 Saturation 97.0 ABG pH at Pt Temp 7.37 ABG pCO2 at Pt Temp 33 ABG pO2 at Pt Temp 89 ABG HCO3 19 L ABG Base Excess (Actual) -4.7 VBG pH VBG pCO2 VBG pO2 VBG HCO3 VBG O2 Saturation VBG Base Excess Sodium Potassium Chloride Carbon Dioxide Anion Gap BUN Creatinine Estim Creat Clear Calc Estimated GFR POC Glucose 137 H Random Glucose Lactic Acid Lactic Acid F/U @ 2Hr 3.0 H* Lactic Acid F/U @ 4Hr Calcium Phosphorus Magnesium Total Bilirubin AST ALT Alkaline Phosphatase Total Protein Albumin Urine Color Urine Appearance Urine pH Ur Specific [place] Urine Protein Urine Glucose (UA) Urine Ketones Urine Blood Urine Nitrite Ur Leukocyte Esterase Urine RBC Urine WBC Ur Squamous Epith Cells Urine Bacteria Hyaline Casts Urine Opiates Screen Urine Fentanyl Screen Ur Barbiturates Screen Ur Phencyclidine Scrn Ur Amphetamines Screen U Benzodiazepines Scrn Urine Cocaine Screen U Marijuana (THC) Screen Ethyl Alcohol 09/07/23 09/07/23 09/08/23 15:37 17:46 04:39 WBC RBC Hgb Hct MCV MCH MCHC RDW Plt Count MPV Immature Gran % (Auto) Neut % (Auto) Lymph % (Auto) [place] % (Auto) Eos % (Auto) Baso % (Auto) Lymph # (Auto) [place] # (Auto) Eos # (Auto) Baso # (Auto) Abs Immat Gran (auto) Absolute Neuts (auto) Absolute Nucleated RBC Nucleated RBC % (auto) Smear Tech's Comments O2 Saturation ABG pH at Pt Temp ABG pCO2 at Pt Temp ABG pO2 at Pt Temp ABG HCO3 ABG Base Excess (Actual) VBG pH VBG pCO2 VBG pO2 VBG HCO3 VBG O2 Saturation VBG Base Excess Sodium 137 138 Potassium 2.8 L* 3.6 D Chloride 106 109 H Carbon Dioxide 20 L 15 L Anion Gap 14 18 BUN 10 8 L Creatinine 0.56 0.71 Estim Creat Clear Calc 132.8 104.7 Estimated GFR > 60 > 60 POC Glucose Random Glucose 122 H 125 H Lactic Acid Lactic Acid F/U @ 2Hr Lactic Acid F/U @ 4Hr 2.7 H* Calcium 7.1 L D 7.4 L Phosphorus 3.3 Magnesium 1.4 L* Total Bilirubin 0.2 AST 19 ALT 26 Alkaline Phosphatase 72 Total Protein 5.3 L Albumin 2.8 L Urine Color Urine Appearance Urine pH Ur Specific [place] Urine Protein Urine Glucose (UA) Urine Ketones Urine Blood Urine Nitrite Ur Leukocyte Esterase Urine RBC Urine WBC Ur Squamous Epith Cells Urine Bacteria Hyaline Casts Urine Opiates Screen Urine Fentanyl Screen Ur Barbiturates Screen Ur Phencyclidine Scrn Ur Amphetamines Screen U Benzodiazepines Scrn Urine Cocaine Screen U Marijuana (THC) Screen Ethyl Alcohol 495 H* 09/08/23 09/08/23 04:40 04:50 WBC 16.0 H RBC 3.84 L Hgb 11.0 L Hct 33.8 L MCV 88.0 MCH 28.6 MCHC 32.5 RDW 15.5 Plt Count 89 L D MPV 10.2 Immature Gran % (Auto) 4.0 H Neut % (Auto) 74.3 H Lymph % (Auto) 13.5 L [place] % (Auto) 7.5 Eos % (Auto) 0.1 Baso % (Auto) 0.6 Lymph # (Auto) 2.2 [place] # (Auto) 1.2 Eos # (Auto) 0.0 Baso # (Auto) 0.1 Abs Immat Gran (auto) 0.64 H Absolute Neuts (auto) 11.9 H Absolute Nucleated RBC 0.000 Nucleated RBC % (auto) 0.0 Smear Tech's Comments VERIFIED O2 Saturation ABG pH at Pt Temp ABG pCO2 at Pt Temp ABG pO2 at Pt Temp ABG HCO3 ABG Base Excess (Actual) VBG pH 7.43 VBG pCO2 27 VBG pO2 73 VBG HCO3 18 L VBG O2 Saturation 95.0 VBG Base Excess -4.3 Sodium Potassium Chloride Carbon Dioxide Anion Gap BUN Creatinine Estim Creat Clear Calc Estimated GFR POC Glucose Random Glucose Lactic Acid Lactic Acid F/U @ 2Hr Lactic Acid F/U @ 4Hr Calcium Phosphorus Magnesium Total Bilirubin AST ALT Alkaline Phosphatase Total Protein Albumin Urine Color Urine Appearance Urine pH Ur Specific [place] Urine Protein Urine Glucose (UA) Urine Ketones Urine Blood Urine Nitrite Ur Leukocyte Esterase Urine RBC Urine WBC Ur Squamous Epith Cells Urine Bacteria Hyaline Casts Urine Opiates Screen Urine Fentanyl Screen Ur Barbiturates Screen Ur Phencyclidine Scrn Ur Amphetamines Screen U Benzodiazepines Scrn Urine Cocaine Screen U Marijuana (THC) Screen Ethyl Alcohol Progress Note: A&P Assessment and plan (1) Polysubstance abuse: Status: Acute (2) Pulmonary aspiration: Status: Acute (3) Acute hypoxemic respiratory failure: Status: Acute (4) Alcohol intoxication: Status: Inactive Plan Assessment: 57-year-old gentleman admitted with polysubstance abuse, acute alcohol intoxication resulting in toxic encephalopathy and pulmonary aspiration with acute hypoxia requiring intubation and ventilatory support Plan: Neuro: Toxic encephalopathy secondary to polysubstance abuse and alcohol intoxication. Continue to titrate off sedatives as tolerated. Cardiac: Pressor requirements and hypotension secondary to intravascular volume depletion and need for sedatives. No evidence of sepsis. Continue to titrate off as tolerated. Pulmonary: Acute hypoxic respiratory failure secondary to pulmonary aspiration on the background of alcohol intoxication requiring intubation in resultant support. Continue to titrate off as tolerated. Renal: No acute issues. Endo: No acute issues. GI: No acute issues. ID: Empirically covered for aspiration pneumonitis with Unasyn. Heme/Onc: No acute issues. Psych: No acute issues. Miscellaneous: No acute issues. Prophylaxis: Heparin, famotidine Diet: NPO Critical care time spent: 60 minutes Quality Stroke Does the patient have a stroke diagnosis?: No VTE Prior VTE?: No VTE Risk Level:: Medical - moderate - high VTE Device Contraindication: N/A - Device Ordered VTE Drug Contraindication: Treatment Not Indicated
[2023-09-08] MEDS: dexmedeTOMIDidine HCL/NS 400 MCG/100 ML INFUS..BTL 17.55 MCG IVCONT ×2 (09:42→15:04)
--- NOTE | 2023-09-08 10:11 | MHC.CLN ---
PT IS INTIBATED AND SEDATED CURRENTLY NPO WITHOUT AN OGT IF TF NEEDED; RECOMMEND PROMOTE AT MAX GOAL RATE 60ML/HR TO PROVIDE 1440KCALS (1885KCALS WITH SEDATION; 29KCALS/KG), 90G PROTEIN (1.4G/KG), 1208ML FREE WATER FROM FORMULA MONITOR TOLERANCE, RESIDUALS AND LYTES SEE ALSO FULL CLINICAL NUTRITION ASSESSMENT
[2023-09-08 11:07] LABS: Influenza A PCR NEGATIVE (Negative); Influenza B PCR NEGATIVE (Negative); Resp Syncy Virus RNA Qual PCR NEGATIVE (Negative); SARS COV2 PCR INHOUSE NEGATIVE (Negative)
--- NOTE | 2023-09-08 12:27 | HE.PHANOTE ---
RE: METHADONE DOSING Last dose of methadone 49 mg was given on 08/30/23 0740 per Crystal VERA at [facility] [place].
[2023-09-08] MEDS: methADONE HCl 20 MG/2 ML ORAL.CONC 49 MG PO (13:03)
[2023-09-08] MEDS: Acetaminophen 325 MG TABLET 650 MG PO ×2 (13:07→21:12)
[2023-09-08] MEDS: PHENobarbitaL sodium 130 MG/ML IM ONCE 261 MG IM (13:25)
--- NOTE | 2023-09-08 14:07 | MHC.CARE ---
Pt was referred to Care Team for evaluation. Care Team reached out to provider, pt is not medically cleared at this time will likely be cleared tomorrow . Please consult Care Team when pt is medically cleared.
--- NOTE | 2023-09-08 14:24 | MHC.CM.PN ---
Addendum entered by Veronica Retana RN 09/08/23 14:53: CM OBTAINED COPY [place] [facility] COPY UPLOADED TO [facility] BY CM MECHANICAL PENCILS ASSEMBLER AND HARD COPY PLACED IN PHYSICAL CHART. Original Note: EMR REVIEWED, PT W/ ETOH INTOXICATION AND NEEDING PRESSOR AND MECH VENT, PT EXTUBATED TODAY AND IS NOW A&O, CM MET W/PT WHO STATES, I HAVE NO WHERE TO GO, I'VE BEEN TRYING TO KILL MYSELF WITH ETOH , PT NOW ON SITTER AND WILL NEED CARE TEAM AND LIKELY IPLOC WHEN MEDICALLY CLEARED. PT WOULD LIKE CARE TEAM INTERVENTION. PT VERIFIES PCP IS ANDREA MOORE, PT WAS UNSURE WHEN HIS LAST VISIT WAS OR IF HE WAS STILL ACTIVE, CM DID [facility] WAS SEEN 08/18/23, PT REPORTS HIS HCP IS HIS OLDER BROTHER QUAN LOMBARDO, PT DOES NOT HAVE COPY, UNSURE IF PT IS RELIABLE HISTORIAN DURING HIS LAST INPT STAY PT HAD DECLINED TO COMPLETE A HCP, CM WILL ATTEMPT TO LOCATE COPY. PT CURRENTLY DECLINES TO SIGN A NEW HCP.
--- NOTE | 2023-09-08 16:44 | PM.EVENT ---
Event Note Date of Service: 09/08/23 Event Note: Addiction consult placed Chart reviewed, patient extubated today. Methadone verified and restarted Will follow up tmrw Time Spent With Patient Time: Total time managing care of this patient today ____ minutes.
[2023-09-08] MEDS: PHENobarbitaL sodium 130 MG/ML VIAL IM Q3Hx2 196 MG IM ×2 (17:00→19:49)
[2023-09-08] MEDS: Lidocaine 4 % Patch ADH..PATCH 1 PATCH TRANSDERMA (21:15)
[2023-09-08] MEDS: Calcium Carbonate 750 MG TAB.CHEW PO (22:28)
[2023-09-08] MEDS: Melatonin 3 MG TABLET 6 MG PO (23:55)
[2023-09-09] VITALS (13 sets, daily range): BP systolic 115–165; BP diastolic 61–81; PULSE 74–97; RESP 13–23; TEMP 36.5–37.2; O2SAT 90–98; BMI 21.9
[2023-09-09] MEDS: Albumin Human 25 % 100 ML IV (00:39)
[2023-09-09] MEDS: ondansetron HCL 4 MG/2 ML VIAL IVPUSH ×3 (00:39→19:31)
[2023-09-09] MEDS: Ampicillin Sodium/Sulbactam Na 3 GM in 0.9 % Sodium Chloride 100 ML IV ×4 (03:42→22:08)
[2023-09-09 05:53] LABS: VBG HCO3 31 mmol/L (22-26); VBG pCO2 35 mmHg; VBG pH 7.56 (7.32-7.43); VBG pO2 40 mmHg
[2023-09-09 05:57] LABS: MANUAL DIFF FLAG NO
[2023-09-09 05:59] LABS: Venous Blood Gas Refer to POC result
[2023-09-09 06:27] LABS: Alanine Aminotransferase 16 U/L (0-40); Albumin Level 3.8 g/dL (3.5-5.0); Alkaline Phosphatase 51 U/L (39-117); Anion Gap 14 (12-20); Aspartate Amino Transferase 18 U/L (5-37); Bilirubin Total 0.7 mg/dL (0.0-1.0); Blood Urea Nitrogen 9 mg/dL (9-16); Calcium 8.4 mg/dL (8.4-10.2); Carbon Dioxide 26 mmol/L (22-29); Chloride 102 mmol/L (96-108); Creatinine Clr Calc Pharmacy 119.9; Estimated Glomerular Filt Rate > 60; Glucose Random 88 mg/dL (60-115); Magnesium 1.6 mg/dL (1.6-2.6); Potassium 3.6 mmol/L (3.3-5.1); Sodium 138 mmol/L (135-145); Total Protein 5.5 g/dL (6.5-8.0)
[2023-09-09 06:41] LABS: Basophils Percent Auto 0.4 % (0-2); Eosinophils Absolute Auto 0.1 X10*3/uL (0.0-0.4); Eosinophils Percent Auto 1.1 % (0-4); Hematocrit 22.4 % (42.0-52.0); Hemoglobin 7.6 g/dl (14.0-18.0); Imm Gran Abs Auto 0.09 X10*3/uL (0.00-0.03); Imm Gran Pct Auto 0.8 % (0.0-0.4); Lymphocytes Absolute Auto 2.2 X10*3/uL (1.2-4.9); Lymphocytes Percent Auto 19.8 % (20-40); Mean Corpuscular HGB Conc 33.9 g/dl (31.0-36.0); Mean Corpuscular Hemoglobin 28.7 pg (27.0-33.0); Mean Corpuscular Volume 84.5 fL (80.0-98.0); Monocytes Absolute Auto 0.9 X10*3/uL (0.1-1.2); Monocytes Percent Auto 8.3 % (2-11); Neutrophils Absolute Auto 7.7 x10*3/uL (2.0-8.3); Neutrophils Percent Auto 69.6 % (45-73); Platelet Count 139 X10*3/uL (160-400); Red Blood Count 2.65 X10*6/uL (4.60-5.80); Red Cell Distribution Width 15.5 % (11.0-16.0)
[2023-09-09] MEDS: Famotidine/PF 20 MG/2 ML VIAL IVPUSH (08:05)
[2023-09-09] MEDS: Heparin Sodium,Porcine 5,000 UNIT/ML VIAL 5000 UNIT SUBCUT ×2 (08:05→17:22)
[2023-09-09] MEDS: PHENobarbitaL 15 MG TABLET 45 MG PO ×2 (08:06→19:30)
[2023-09-09] MEDS: methADONE HCl 20 MG/2 ML ORAL.CONC 49 MG PO (08:06)
[2023-09-09] MEDS: Sodium,Potassium Phosphates POWD.PACK 2 PACKET PO (08:06)
--- NOTE | 2023-09-09 08:14 | PHA.MEDREC ---
Pharmacy Consult ? Medication Reconciliation Pharmacy has completed the medication reconciliation. Spoke with patient he states he is only only on three medications (lisinopril, hydroxyzine, and Eliquis), while going through his entire med list, he interrupted me and reconfirmed he is only on 3 medications prior to 3 days ago.
[2023-09-09] MEDS: Potassium Phosphate/NS 15 MMOL/250 ML PLAST..BAG 62.5 MMOL IV (08:28)
--- NOTE | 2023-09-09 09:27 | MHC.CM.PN ---
Pt extubated and receiving care in ICU: Will continue on Methadone as ordered by CARE team. Pt will likely need INPT treatment for ETOH/substance use. CM to follow for finalization of d/c plans: pt identifies as homeless which may pose a problem for placement.
--- NOTE | 2023-09-09 10:07 | P.PNCC_ITS ---
Subjective Subjective Date of Service: 09/09/23 Interval History: 57-year-old with underlying history of alcohol and substance abuse, hepatitis-C found unresponsive after drinking 2 pints of vodka and brought to emergency room with alcohol level of 500, unable to protect his airway developed acute hypoxia likely secondary to aspiration and intubated in the emergency room with hypotension resulting intravascular volume depletion and sedation requiring pressor support. Extubated uneventfully in 09/08/2023. Started on phenobarbital protocol. Patient endorses suicidal ideation by trying to overdose on alcohol. No events overnight. Titrated off Precedex. Critical Care Time (minutes): 0 Physical Exam 2 Vital Signs: Vital Signs: Last Vital Signs Temp 97.8 F 09/09/23 08:00 Pulse 83 09/09/23 08:00 Resp 23 H 09/09/23 08:00 BP 140/76 H 09/09/23 08:00 Pulse Ox 94 09/09/23 08:00 O2 Del Method Nasal Cannula 09/09/23 08:00 O2 Flow Rate 1 09/09/23 08:00 FiO2 25 09/08/23 09:33 BMI result Body Mass Index 21.9 Const: General: no acute distress, alert and awake Eyes: Sclerae: sclerae normal EOM: EOMs intact bilaterally Neck: Neck: Yes no lymphadenopathy, Yes trachea midline and Yes supple Resp: Effort & Inspection: normal respiratory effort and no respiratory distress Auscultation: clear to auscultation bilaterally Cardio: Rate: regular rate Rhythm: regular rhythm Heart sounds: no gallops, no murmurs and no rubs GI: Palpation (GI): Soft to palpation and Other GI palpation findings present ( Nontender) Auscultation: normal bowel sounds Extrem: General: Yes no pedal edema, No clubbing and No cyanosis Objective Data Labs 09/09/23 05:42 09/09/23 05:42 Labs: Laboratory Results - last 24 hr 09/08/23 09/09/23 09/09/23 10:00 05:42 05:46 WBC 11.0 H RBC 2.65 L D Hgb 7.6 L D Hct 22.4 L D MCV 84.5 MCH 28.7 MCHC 33.9 RDW 15.5 Plt Count 139 L D MPV 10.0 Immature Gran % (Auto) 0.8 H Neut % (Auto) 69.6 Lymph % (Auto) 19.8 L [place] % (Auto) 8.3 Eos % (Auto) 1.1 Baso % (Auto) 0.4 Lymph # (Auto) 2.2 [place] # (Auto) 0.9 Eos # (Auto) 0.1 Baso # (Auto) 0.0 Abs Immat Gran (auto) 0.09 H Absolute Neuts (auto) 7.7 Absolute Nucleated RBC 0.000 Nucleated RBC % (auto) 0.0 VBG pH 7.56 H VBG pCO2 35 VBG pO2 40 VBG HCO3 31 H VBG O2 Saturation 74.0 VBG Base Excess 9.0 Sodium 138 Potassium 3.6 Chloride 102 Carbon Dioxide 26 Anion Gap 14 BUN 9 Creatinine 0.62 Estim Creat Clear Calc 119.9 Estimated GFR > 60 Random Glucose 88 Calcium 8.4 D Phosphorus 2.0 L Magnesium 1.6 Total Bilirubin 0.7 AST 18 ALT 16 Alkaline Phosphatase 51 Total Protein 5.5 L Albumin 3.8 Influenza Type A (PCR) NEGATIVE Influenza Type B (PCR) NEGATIVE RSV RNA Qual (PCR) NEGATIVE SARS-CoV-2 RNA (RT-PCR) NEGATIVE Microbiology Microbiology Results: Microbiology 09/07/23 11:18 Blood - Venous Blood Culture - Preliminary No growth after 24 hours. 09/07/23 10:55 Blood - Venous Blood Culture - Preliminary No growth after 24 hours. Progress Note: A&P Assessment and plan (1) Suicidal ideation: Status: Acute (2) Polysubstance abuse: Status: Acute (3) Pulmonary aspiration: Status: Acute (4) Acute hypoxemic respiratory failure: Status: Acute (5) Alcohol abuse with withdrawal: Status: Acute Plan Assessment: 57-year-old gentleman admitted with polysubstance abuse, acute alcohol intoxication resulting in toxic encephalopathy and pulmonary aspiration with acute hypoxia requiring intubation and ventilatory support Plan: Neuro: Toxic encephalopathy secondary to polysubstance abuse and alcohol intoxication, improved. Titrate off Precedex drip. Now on phenobarbital protocol. Cardiac: Pressor requirements and hypotension secondary to intravascular volume depletion and need for sedatives, resolved. Pulmonary: Acute hypoxic respiratory failure secondary to pulmonary aspiration on the background of alcohol intoxication requiring intubation in resultant support, resolved. Extubated 09/08/2023. Renal: No acute issues. Endo: No acute issues. GI: No acute issues. ID: Empirically covered for aspiration pneumonitis with Unasyn. Heme/Onc: No acute issues. Psych: Endorses suicidal ideation. Care team consult requested. Miscellaneous: No acute issues. Prophylaxis: Heparin Diet: Regular Quality Stroke Does the patient have a stroke diagnosis?: No VTE Prior VTE?: No VTE Risk Level:: Medical - moderate - high VTE Device Contraindication: N/A - Device Ordered VTE Drug Contraindication: Treatment Not Indicated
--- NOTE | 2023-09-09 13:38 | P.CDIM_ITS ---
PROVIDER RESPONSE TEXT: To clarify, the appropriate diagnosis supported by the clinical indicators: Anemia, please specify type QUERY TEXT: PHYSICIAN'S DOCUMENTATION REQUEST Date of Query: 09/09/2023 01:23 PM EST Patient Name: Yoshi Porter Admit Date: 09/07/2023 Dear Germán Asher, A review of the medical record indicates additional documentation may be needed. Please review below and update the documentation accordingly. Clinical Indicators: H&H on 09/08/23: 11.0/33.8 H&H on 09/09/23: 7.6/22.4 Based on the above, could you clarify the appropriate diagnosis, if significant, that supports the ab ove abnormalities and additional evaluation, monitoring, and/or treatment rendered: Anemia, please specify type Labs indicate a diagnosis of (please specify) Other (explain) Clinically unable to determine (explain) Thank you, Maris Murray RN Use of terms such as suspected, likely, concern for, or probable (associated with a specific diagnosi s that is being evaluated, monitored, or treated as if it exists) are acceptable and can be coded in the inpatient se tting, when documented at the time of discharge. Please use your independent medical judgment in providing your response. THIS QUERY IS PART OF THE PERMANENT MEDICAL RECORD
--- NOTE | 2023-09-09 14:29 | HO.ADDICT_ITS ---
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 He presented to the ED after being found on the ground. BAL was 500 and UDS +cocaine and fentanyl Extubated 09/08. Seen today, , in room 452. Patient awake, alert, engaged in interview. Patient tearful, stating several times, I messed up bad, 8 years I threw away.. . This procedure writer asked patient to clarify what he meant by 8 years and responded that he had been sober for 8 years prior to what occurred that led up to this admission. Unclear why patient would state this as he has had several admissions to our ED over the last couple of years for alcohol use/intoxication. When asked about opiate use, he replied, I would never use heroin, I was addicted to pills a long time ago, I wouldn't touch an opiate ever, maybe it was in the cocaine I smoked . Again, prior to this admission, patient had history of +UDS. This procedure writer did not challenge patient's recollection of his substance use history. He is currently engaged in OUD treatment via [facility] and methadone dose is 49mg. Reports this dose is adequate and denies any withdrawal sx or cravings. He stated several times during interview to not let him be discharged because he knows he will go back out finish the job , referring to his attempt to end his life. Past Psychiatric History: Patient denies any history of inpatient level of care, PHP. Primary care provider prescribes Cymbalta and sertraline. Medical Evaluation Reviewed: Yes Review of Systems Constitutional: Reports as per HPI Diagnostics Vital Signs (24Hr): Vital Signs - 24 hr 09/08/23 15:00 09/08/23 15:59 09/08/23 16:55 Temperature 98.5 F 98.5 F 98.2 F Pulse Rate 69 71 68 Respiratory Rate 17 14 15 Blood Pressure 104/63 100/57 L 118/62 Pulse Oximetry 91 L 93 96 Oxygen Delivery Method Room Air Room Air Nasal Cannula Oxygen Flow Rate 2 09/08/23 17:57 09/08/23 18:42 09/08/23 20:00 Temperature 98.2 F 98.1 F 99.3 F Pulse Rate 68 68 74 Respiratory Rate 21 H 21 H 17 Blood Pressure 100/61 100/61 103/61 Pulse Oximetry 93 92 97 Oxygen Delivery Method Room Air Room Air Oxygen Flow Rate 09/08/23 20:03 09/08/23 21:00 09/08/23 22:00 Temperature Pulse Rate 83 74 87 Respiratory Rate 16 17 Blood Pressure 138/60 93/64 108/54 L Pulse Oximetry 90 L 95 Oxygen Delivery Method Room Air Room Air Oxygen Flow Rate 09/08/23 23:00 09/09/23 00:00 09/09/23 01:00 Temperature 98.2 F 98.2 F Pulse Rate 90 88 78 Respiratory Rate 13 13 19 Blood Pressure 98/61 124/66 122/65 Pulse Oximetry 92 96 90 L Oxygen Delivery Method Room Air Room Air Nasal Cannula Oxygen Flow Rate 1 09/09/23 02:00 09/09/23 03:00 09/09/23 04:00 Temperature 98.2 F Pulse Rate 87 77 77 Respiratory Rate 16 15 17 Blood Pressure 135/71 115/61 129/69 Pulse Oximetry 92 90 L 93 Oxygen Delivery Method Nasal Cannula Nasal Cannula Nasal Cannula Oxygen Flow Rate 1 1 1 09/09/23 05:00 09/09/23 06:00 09/09/23 07:00 Temperature Pulse Rate 77 97 79 Respiratory Rate 14 14 15 Blood Pressure 124/67 133/68 139/72 Pulse Oximetry 93 92 91 L Oxygen Delivery Method Nasal Cannula Nasal Cannula Room Air Oxygen Flow Rate 1 1 09/09/23 08:00 09/09/23 11:49 Temperature 97.8 F 97.7 F Pulse Rate 83 85 Respiratory Rate 23 H 18 Blood Pressure 140/76 H 165/79 H Pulse Oximetry 94 98 Oxygen Delivery Method Nasal Cannula Room Air Oxygen Flow Rate 1 2 BMI result Body Mass Index 21.9 Labs 09/09/23 05:42 09/09/23 05:42 Labs: Laboratory Results - last 48 hr 09/07/23 09/07/23 09/07/23 14:44 15:29 15:37 WBC RBC Hgb Hct MCV MCH MCHC RDW Plt Count MPV Immature Gran % (Auto) Neut % (Auto) Lymph % (Auto) [place] % (Auto) Eos % (Auto) Baso % (Auto) Lymph # (Auto) [place] # (Auto) Eos # (Auto) Baso # (Auto) Abs Immat Gran (auto) Absolute Neuts (auto) Absolute Nucleated RBC Nucleated RBC % (auto) Smear Tech's Comments O2 Saturation 97.0 ABG pH at Pt Temp 7.37 ABG pCO2 at Pt Temp 33 ABG pO2 at Pt Temp 89 ABG HCO3 19 L ABG Base Excess (Actual) -4.7 VBG pH VBG pCO2 VBG pO2 VBG HCO3 VBG O2 Saturation VBG Base Excess Sodium 137 Potassium 2.8 L* Chloride 106 Carbon Dioxide 20 L Anion Gap 14 BUN 10 Creatinine 0.56 Estim Creat Clear Calc 132.8 Estimated GFR > 60 POC Glucose 137 H Random Glucose 122 H Lactic Acid F/U @ 4Hr Calcium 7.1 L D Phosphorus Magnesium Total Bilirubin AST ALT Alkaline Phosphatase Total Protein Albumin Ethyl Alcohol 495 H* Influenza Type A (PCR) Influenza Type B (PCR) RSV RNA Qual (PCR) SARS-CoV-2 RNA (RT-PCR) 09/07/23 09/08/23 09/08/23 17:46 04:39 04:40 WBC 16.0 H RBC 3.84 L Hgb 11.0 L Hct 33.8 L MCV 88.0 MCH 28.6 MCHC 32.5 RDW 15.5 Plt Count 89 L D MPV 10.2 Immature Gran % (Auto) 4.0 H Neut % (Auto) 74.3 H Lymph % (Auto) 13.5 L [place] % (Auto) 7.5 Eos % (Auto) 0.1 Baso % (Auto) 0.6 Lymph # (Auto) 2.2 [place] # (Auto) 1.2 Eos # (Auto) 0.0 Baso # (Auto) 0.1 Abs Immat Gran (auto) 0.64 H Absolute Neuts (auto) 11.9 H Absolute Nucleated RBC 0.000 Nucleated RBC % (auto) 0.0 Smear Tech's Comments VERIFIED O2 Saturation ABG pH at Pt Temp ABG pCO2 at Pt Temp ABG pO2 at Pt Temp ABG HCO3 ABG Base Excess (Actual) VBG pH VBG pCO2 VBG pO2 VBG HCO3 VBG O2 Saturation VBG Base Excess Sodium 138 Potassium 3.6 D Chloride 109 H Carbon Dioxide 15 L Anion Gap 18 BUN 8 L Creatinine 0.71 Estim Creat Clear Calc 104.7 Estimated GFR > 60 POC Glucose Random Glucose 125 H Lactic Acid F/U @ 4Hr 2.7 H* Calcium 7.4 L Phosphorus 3.3 Magnesium 1.4 L* Total Bilirubin 0.2 AST 19 ALT 26 Alkaline Phosphatase 72 Total Protein 5.3 L Albumin 2.8 L Ethyl Alcohol Influenza Type A (PCR) Influenza Type B (PCR) RSV RNA Qual (PCR) SARS-CoV-2 RNA (RT-PCR) 09/08/23 09/08/23 09/09/23 04:50 10:00 05:42 WBC 11.0 H RBC 2.65 L D Hgb 7.6 L D Hct 22.4 L D MCV 84.5 MCH 28.7 MCHC 33.9 RDW 15.5 Plt Count 139 L D MPV 10.0 Immature Gran % (Auto) 0.8 H Neut % (Auto) 69.6 Lymph % (Auto) 19.8 L [place] % (Auto) 8.3 Eos % (Auto) 1.1 Baso % (Auto) 0.4 Lymph # (Auto) 2.2 [place] # (Auto) 0.9 Eos # (Auto) 0.1 Baso # (Auto) 0.0 Abs Immat Gran (auto) 0.09 H Absolute Neuts (auto) 7.7 Absolute Nucleated RBC 0.000 Nucleated RBC % (auto) 0.0 Smear Tech's Comments O2 Saturation ABG pH at Pt Temp ABG pCO2 at Pt Temp ABG pO2 at Pt Temp ABG HCO3 ABG Base Excess (Actual) VBG pH 7.43 VBG pCO2 27 VBG pO2 73 VBG HCO3 18 L VBG O2 Saturation 95.0 VBG Base Excess -4.3 Sodium 138 Potassium 3.6 Chloride 102 Carbon Dioxide 26 Anion Gap 14 BUN 9 Creatinine 0.62 Estim Creat Clear Calc 119.9 Estimated GFR > 60 POC Glucose Random Glucose 88 Lactic Acid F/U @ 4Hr Calcium 8.4 D Phosphorus 2.0 L Magnesium 1.6 Total Bilirubin 0.7 AST 18 ALT 16 Alkaline Phosphatase 51 Total Protein 5.5 L Albumin 3.8 Ethyl Alcohol Influenza Type A (PCR) NEGATIVE Influenza Type B (PCR) NEGATIVE RSV RNA Qual (PCR) NEGATIVE SARS-CoV-2 RNA (RT-PCR) NEGATIVE 09/09/23 05:46 WBC RBC Hgb Hct MCV MCH MCHC RDW Plt Count MPV Immature Gran % (Auto) Neut % (Auto) Lymph % (Auto) [place] % (Auto) Eos % (Auto) Baso % (Auto) Lymph # (Auto) [place] # (Auto) Eos # (Auto) Baso # (Auto) Abs Immat Gran (auto) Absolute Neuts (auto) Absolute Nucleated RBC Nucleated RBC % (auto) Smear Tech's Comments O2 Saturation ABG pH at Pt Temp ABG pCO2 at Pt Temp ABG pO2 at Pt Temp ABG HCO3 ABG Base Excess (Actual) VBG pH 7.56 H VBG pCO2 35 VBG pO2 40 VBG HCO3 31 H VBG O2 Saturation 74.0 VBG Base Excess 9.0 Sodium Potassium Chloride Carbon Dioxide Anion Gap BUN Creatinine Estim Creat Clear Calc Estimated GFR POC Glucose Random Glucose Lactic Acid F/U @ 4Hr Calcium Phosphorus Magnesium Total Bilirubin AST ALT Alkaline Phosphatase Total Protein Albumin Ethyl Alcohol Influenza Type A (PCR) Influenza Type B (PCR) RSV RNA Qual (PCR) SARS-CoV-2 RNA (RT-PCR) Imaging Radiology Impressions: ITS Impressions Head CT 09/07/23 10:27 IMPRESSION: Chronic microvascular ischemic changes with no CT evidence of acute intracranial abnormality. Chest X-Ray 09/07/23 11:54 IMPRESSION: No acute pulmonary pathology. Chest CT 09/07/23 13:33 IMPRESSION: Limited examination secondary to motion and lack of IV contrast. 1. A pleural-based opacity in the left lung base is decreased in size and now less masslike compared to 03/31/2023. 2. Increase bronchial wall thickening as well as a few new bilateral groundglass and patchy airspace opacities, suggestive of an infectious/inflammatory process. Recommend short-term follow-up CT chest in 3 months. 3. Increased wall thickening of the lower esophagus/gastroesophageal junction with worsening upstream stagnation and patulous appearance of the esophagus which constitutes a high risk factor for aspiration. If not recently obtained, further evaluation with upper endoscopy is highly recommended to rule out underlying neoplasia. 4. Stable aneurysmatic dilatation of the ascending thoracic aorta as well as unchanged focal contour abnormality along the inferior aspect of the aortic arch with calcified wall that could reflect sequela of a chronic aortic injury. Severe multivessel coronary calcifications. Follow up with motor tune up specialist guidance is recommended. Chest X-Ray 09/07/23 15:17 IMPRESSION: The tip of a new endotracheal tube projects over the trachea at the level of the clavicles, approximately 6 cm above the steph. Mental Status Exam Mental Status Exam Patient Orientation: Person, Place and Situation Level of Consciousness: Awake and Alert Patient Behavior: Crying Mood Description: Sad Affect Description: Anxious and Sad Medications Medications Current Medications Acetaminophen (Acetaminophen 325 Mg Tablet) 650 mg PO Q6H PRN PRN Reason: Headache Last Admin: 09/08/23 21:12 Dose: 650 mg Calcium Carbonate (Calcium Carbonate 750 Mg Tab.Chew) 750 mg PO Q4H PRN PRN Reason: Heartburn Last Admin: 09/08/23 22:28 Dose: 750 mg Heparin Sodium (Porcine) (Heparin Sodium,Porcine 5,000 Unit/Ml Vial) 5,000 unit SUBCUT Q8H [facility] Last Admin: 09/09/23 08:05 Dose: 5,000 unit Ampicillin Sodium/Sulbactam (Sodium 3 gm/ Sodium Chloride) 100 mls @ 200 mls/hr IV Q6H [facility] Last Infusion: 09/09/23 14:14 Dose: Infused Methadone HCl (Methadone Hcl 20 Mg/2 Ml Oral.Conc) 49 mg PO DAILY [facility] Last Admin: 09/09/23 08:06 Dose: 49 mg Ondansetron HCl (Ondansetron Hcl 4 Mg/2 Ml Vial) 4 mg IVPUSH Q6H PRN PRN Reason: Nausea Last Admin: 09/09/23 05:31 Dose: 4 mg Pharmacy Consult (Consult Rx Etoh Phenob Im/Po) 1 each MISCELLANE ONCE PRN; Protocol PRN Reason: Consult order Phenobarbital (Phenobarbital 15 Mg Tablet) 45 mg PO BID [facility] Stop: 09/10/23 21:01 Last Admin: 09/09/23 08:06 Dose: 45 mg Phenobarbital (Phenobarbital 30 Mg Tablet) 30 mg PO BID [facility] Stop: 09/12/23 21:01 Phenobarbital (Phenobarbital 15 Mg Tablet) 15 mg PO DAILY [facility] Stop: 09/14/23 09:01 Allergies Allergies Allergy/AdvReac Type Severity Reaction Status Date / Time bee pollen [BEE STINGS] Allergy Severe SWELLING Verified 09/06/23 10:30 Assessment & Plan Assessment & Plan (1) Opioid use disorder, severe, dependence: Status: Acute Code(s): F11.20 - Opioid dependence, uncomplicated Assessment and Plan: * continue methadone at current dose (2) Alcohol use disorder, severe, dependence: Status: Acute Code(s): F10.20 - Alcohol dependence, uncomplicated Assessment and Plan: * pending crisis evaluation and probably psychiatric admission * can follow up once transferred to provide additional recovery support Total time managing care of this patient today _45___ minutes. PMFSH Past Medical History Medical History Substance abuse EtOH dependence Hypertension Family History Family History Father Stomach cancer Surgical History Surgical History Hx of endoscopy History of total right hip replacement Social History Social History Household Members: Unknown / Unable to assess Housing: Unknown / Unable to assess Alcohol intake: current Alcohol intake frequency: 3 or more drinks per day Alcohol type: beer and hard liquor Comment: Pt 1:1 Suicide Precautions. gait and balance are steady. Patient Tobacco Use Status: Former Tobacco user Use of substances other than those prescribed or required for medical reasons: Unknown Substance Use Type: Heroin Last Used Substance: Hours (ago) Currently Displaying Signs/Symptoms of Drug Intoxication Withdrawal: No Spiritual Healthcare Practices: unable to assess - pt sedated and vented Advance Directives: No Advance Directives Information Provided: No Advance Directives on File: No Suicidal Behavior: History of suicide attemps Current/Past Psychiatric Disorders: Mood disorder and Substance abuse Sales Symptoms: Anxiety Access to Firearms: No Recently lost weight without trying: Unsure Nutrition Risks: On aspiration precautions Poor oral hygiene: No service: No Current occupational status: unemployed
[2023-09-09] MEDS: Acetaminophen 325 MG TABLET 650 MG PO (19:31)
[2023-09-09] MEDS: Calcium Carbonate 750 MG TAB.CHEW PO (19:31)
[2023-09-09] MEDS: Omeprazole 20 MG CAPSULE.DR PO (22:08)
[2023-09-10 03:58] VITALS: BP 145/70; PULSE 74; RESP 16; TEMP 36.6; O2SAT 91
[2023-09-10] MEDS: Calcium Carbonate 750 MG TAB.CHEW PO ×2 (04:09→19:30)
[2023-09-10] MEDS: Ampicillin Sodium/Sulbactam Na 3 GM in 0.9 % Sodium Chloride 100 ML IV ×4 (04:12→22:25)
[2023-09-10] MEDS: Omeprazole 20 MG CAPSULE.DR PO ×2 (05:55→17:47)
[2023-09-10 06:06] LABS: MANUAL DIFF FLAG NO
[2023-09-10 06:11] LABS: Basophils Percent Auto 0.4 % (0-2); Eosinophils Absolute Auto 0.2 X10*3/uL (0.0-0.4); Hematocrit 25.8 % (42.0-52.0); Hemoglobin 8.5 g/dl (14.0-18.0); Imm Gran Abs Auto 0.08 X10*3/uL (0.00-0.03); Lymphocytes Percent Auto 25.1 % (20-40); Mean Corpuscular HGB Conc 32.9 g/dl (31.0-36.0); Mean Corpuscular Hemoglobin 28.1 pg (27.0-33.0); Mean Corpuscular Volume 85.1 fL (80.0-98.0); Monocytes Absolute Auto 0.7 X10*3/uL (0.1-1.2); Monocytes Percent Auto 8.1 % (2-11); Neutrophils Absolute Auto 5.1 x10*3/uL (2.0-8.3); Neutrophils Percent Auto 63.4 % (45-73); Platelet Count 154 X10*3/uL (160-400); Red Blood Count 3.03 X10*6/uL (4.60-5.80); Red Cell Distribution Width 15.2 % (11.0-16.0)
[2023-09-10 06:25] LABS: Alanine Aminotransferase 16 U/L (0-40); Albumin Level 3.8 g/dL (3.5-5.0); Alkaline Phosphatase 58 U/L (39-117); Anion Gap 13 (12-20); Aspartate Amino Transferase 20 U/L (5-37); Bilirubin Total 0.5 mg/dL (0.0-1.0); Blood Urea Nitrogen 6 mg/dL (9-16); Calcium 8.9 mg/dL (8.4-10.2); Carbon Dioxide 30 mmol/L (22-29); Chloride 99 mmol/L (96-108); Creatinine Clr Calc Pharmacy 106.2; Estimated Glomerular Filt Rate > 60; Glucose Random 91 mg/dL (60-115); Magnesium 1.6 mg/dL (1.6-2.6); Phosphorus 3.7 mg/dL (2.7-4.5); Potassium 3.6 mmol/L (3.3-5.1); Sodium 138 mmol/L (135-145)
[2023-09-10 07:17] VITALS: BP 180/90; PULSE 88; RESP 20; TEMP 36.7; O2SAT 97
--- NOTE | 2023-09-10 09:30 | P.PNIM_ITS ---
Subjective Subjective Date of Service: 09/10/23 Interval History: feeling better Physical Exam 2 Vital Signs: Vital Signs: Last Vital Signs Temp 98.1 F 09/10/23 07:17 Pulse 88 09/10/23 07:17 Resp 20 09/10/23 07:17 BP 180/90 H 09/10/23 07:17 Pulse Ox 97 09/10/23 07:17 O2 Del Method Room Air 09/10/23 07:17 O2 Flow Rate 2 09/09/23 11:49 FiO2 25 09/08/23 09:33 BMI result Body Mass Index 21.9 General: AO X 3, no acute distress Resp: CTA bilateral, no accessory muscles used CVS: S1,S2,RRR GI: soft, non tender, non distended Neuro: motor grossly intact, alert Objective Data Active Medications Acetaminophen (Acetaminophen 325 Mg Tablet) 650 mg PO Q6H PRN PRN Reason: Headache Last Admin: 09/09/23 19:31 Dose: 650 mg Documented By: PARRISH Calcium Carbonate (Calcium Carbonate 750 Mg Tab.Chew) 750 mg PO Q4H PRN PRN Reason: Heartburn Last Admin: 09/10/23 04:09 Dose: 750 mg Documented By: PARRISH Heparin Sodium (Porcine) (Heparin Sodium,Porcine 5,000 Unit/Ml Vial) 5,000 unit SUBCUT Q8H [facility] Last Admin: 09/10/23 00:26 Dose: Not Given Documented By: PARRISH Non-Admin Reason: Patient refused. Ampicillin Sodium/Sulbactam (Sodium 3 gm/ Sodium Chloride) 100 mls @ 200 mls/hr IV Q6H [facility] Last Infusion: 09/10/23 05:48 Dose: Infused Documented By: PARRISH Methadone HCl (Methadone Hcl 20 Mg/2 Ml Oral.Conc) 49 mg PO DAILY [facility] Last Admin: 09/09/23 08:06 Dose: 49 mg Documented By: DAIN Omeprazole (Omeprazole 20 Mg Capsule.Dr) 20 mg PO BID@0630,1630 [facility] Last Admin: 09/10/23 05:55 Dose: 20 mg Documented By: PARRISH Ondansetron HCl (Ondansetron Hcl 4 Mg/2 Ml Vial) 4 mg IVPUSH Q6H PRN PRN Reason: Nausea Last Admin: 09/09/23 19:31 Dose: 4 mg Documented By: PARRISH Pharmacy Consult (Consult Rx Etoh Phenob Im/Po) 1 each MISCELLANE ONCE PRN; Protocol PRN Reason: Consult order Phenobarbital (Phenobarbital 15 Mg Tablet) 45 mg PO BID [facility] Stop: 09/10/23 21:01 Last Admin: 09/09/23 19:30 Dose: 45 mg Documented By: PARRISH Phenobarbital (Phenobarbital 30 Mg Tablet) 30 mg PO BID [facility] Stop: 09/12/23 21:01 Phenobarbital (Phenobarbital 15 Mg Tablet) 15 mg PO DAILY [facility] Stop: 09/14/23 09:01 Labs 09/10/23 05:54 09/10/23 05:54 Labs: Laboratory Results - last 24 hr 09/10/23 05:54 MCV 85.1 MCH 28.1 MCHC 32.9 RDW 15.2 Plt Count 154 L MPV 10.0 Immature Gran % (Auto) 1.0 H Neut % (Auto) 63.4 Lymph % (Auto) 25.1 [place] % (Auto) 8.1 Eos % (Auto) 2.0 Baso % (Auto) 0.4 Lymph # (Auto) 2.0 [place] # (Auto) 0.7 Eos # (Auto) 0.2 Baso # (Auto) 0.0 Abs Immat Gran (auto) 0.08 H Absolute Neuts (auto) 5.1 Absolute Nucleated RBC 0.000 Nucleated RBC % (auto) 0.0 Anion Gap 13 Estim Creat Clear Calc 106.2 Estimated GFR > 60 Random Glucose 91 Calcium 8.9 Phosphorus 3.7 Magnesium 1.6 Total Bilirubin 0.5 AST 20 ALT 16 Alkaline Phosphatase 58 Total Protein 6.0 L Albumin 3.8 Microbiology Microbiology Results: Microbiology 09/07/23 11:18 Blood Culture - Preliminary Blood - Venous No growth after 48 hours. 09/07/23 10:55 Blood Culture - Preliminary Blood - Venous No growth after 48 hours. Assessment and Plan (1) Alcohol use disorder, severe, dependence: Status: Acute Plan 57M PMH PE october 2022, etoh dpeendence, hcv, opiate dependence, presented unresponsive, hypoxic, hypotensive, intubated given pressors and volume in ICU, now extubated and on room air. acute toxic metabolic encephalopathy and acute hypoxic respiratory failure due to etoh intoxication and aspiratoin pneumonia resolved continue unasyn, can change to augmentin on discharge phenobarb for potential withdrawal - no evidence of current withdrawal history of pe eliquis opiate dependence methadone hcv outpatient follow up major depression with SI care team eval full code reason for continued hospitalization:medically cleared - care team eval pending Quality Stroke Does the patient have a stroke diagnosis?: No VTE Prior VTE?: No VTE Risk Level:: Medical - moderate - high VTE Device Contraindication: N/A - Device Ordered VTE Drug Contraindication: Treatment Not Indicated
[2023-09-10] MEDS: PHENobarbitaL 15 MG TABLET 45 MG PO ×2 (09:58→20:34)
[2023-09-10] MEDS: methADONE HCl 20 MG/2 ML ORAL.CONC 49 MG PO (09:59)
--- NOTE | 2023-09-10 10:19 | MHC.CM.PN ---
Per ROUNDS discussion, Patient is medically cleared for dc; Care Team to evaluate to assist with disposition. CM will follow.
[2023-09-10 11:21] VITALS: BP 173/84; PULSE 89; RESP 20; TEMP 36.7; O2SAT 98
--- NOTE | 2023-09-10 11:29 | PM.DS ---
DS: Providers Provider Date of Service: 09/10/23 Date of admission: 09/07/23 15:42 Primary care physician: Maximo Morfin MD Consults: 09/07/23 10:21 Consult to Care Team Stat Comment: etoh ? 35 Reason for consultation: etoh ? 35 Has provider been notified: No 09/07/23 17:22 Addiction Medicine Routine Consulting Provider: Addiction Covering Reason for consultation: positive screening Has provider been notified: Yes 09/08/23 10:53 Consult to Psychiatry Stat Consulting Provider: Psych Covering Reason for consultation: Suicidal ideation Has provider been notified: No 09/08/23 13:03 Consult to Care Team Stat Comment: Reason for consultation: Suicidal ideation 09/10/23 08:26 Consult to Care Team Stat Comment: Reason for consultation: medically cleared DS: Diagnosis Discharge Diagnosis (1) Alcohol use disorder, severe, dependence: Status: Acute DS: Summary Hospital Course Hospital Course: from initial hpi: 57-year-old with underlying history of alcohol and substance abuse, hepatitis-C found unresponsive after drinking 2 pints of vodka and brought to emergency room with alcohol level of 500, unable to protect his airway developed acute hypoxia likely secondary to aspiration and intubated in the emergency room with hypotension resulting intravascular volume depletion and sedation requiring pressor support. hospital course: Patient was admitted for acute toxic metabolic encephalopathy and acute hypoxic respiratory failure due to alcohol intoxication and aspiration pneumonia further complicated by hypotension requiring intubation and vasopressors. He was eventually extubated and doing well on room air, he is off pressors. He was empirically put on phenobarbital but did not have any withdrawal. He was given Unasyn for aspiration and will complete 5 more days of Augmentin. Patient reports that this was a suicide attempt and was met by care team who recommended inpatient psychiatric treatment. For history of pulmonary embolism he was continued on Eliquis. For history of opiate dependence was continued on methadone. For history of HCV should follow up outpatient. Time Attestation Discharge coordination time: Greater than 30 minutes Quality: Safe Use of Opioids Does Pt have an Active Cancer Diagnosis on the Problem List?: No Quality: Stroke Does the patient have a stroke diagnosis?: No Physical Exam Vital Signs: Vital Signs: Last Vital Signs Temp 98.0 F 09/10/23 11:21 Pulse 89 09/10/23 11:21 Resp 20 09/10/23 11:21 BP 173/84 H 09/10/23 11:21 Pulse Ox 98 09/10/23 11:21 O2 Del Method Room Air 09/10/23 11:21 O2 Flow Rate 2 09/09/23 11:49 FiO2 25 09/08/23 09:33 BMI result Body Mass Index 21.9 General: AO X 3, no acute distress Resp: CTA bilateral, no accessory muscles used CVS: S1,S2,RRR GI: soft, non tender, non distended Neuro: motor grossly intact, alert DS: Data Data Completed and Pending Labs on day of discharge: Laboratory Results - last 24 hr 09/10/23 05:54 WBC 8.0 RBC 3.03 L Hgb 8.5 L Hct 25.8 L MCV 85.1 MCH 28.1 MCHC 32.9 RDW 15.2 Plt Count 154 L MPV 10.0 Immature Gran % (Auto) 1.0 H Neut % (Auto) 63.4 Lymph % (Auto) 25.1 [place] % (Auto) 8.1 Eos % (Auto) 2.0 Baso % (Auto) 0.4 Lymph # (Auto) 2.0 [place] # (Auto) 0.7 Eos # (Auto) 0.2 Baso # (Auto) 0.0 Abs Immat Gran (auto) 0.08 H Absolute Neuts (auto) 5.1 Absolute Nucleated RBC 0.000 Nucleated RBC % (auto) 0.0 Sodium 138 Potassium 3.6 Chloride 99 Carbon Dioxide 30 H Anion Gap 13 BUN 6 L Creatinine 0.70 Estim Creat Clear Calc 106.2 Estimated GFR > 60 Random Glucose 91 Calcium 8.9 Phosphorus 3.7 Magnesium 1.6 Total Bilirubin 0.5 AST 20 ALT 16 Alkaline Phosphatase 58 Total Protein 6.0 L Albumin 3.8 Preliminary micro results at discharge 09/07/23 11:18 Blood Culture - Preliminary Blood - Venous No growth after 48 hours. 09/07/23 10:55 Blood Culture - Preliminary Blood - Venous No growth after 48 hours. Discharge Plan Discharge Anticipated Discharge Date/Time: 09/10/23 11:25 Patient Disposition: Xfer Other Discharge Diagnosis: etoh intoxication, depression Referrals: Maximo Morfin MD [Primary Care Provider] - 1 Week Discharge Medications: New amoxicillin-pot clavulanate 875-125 mg tablet 1 tab PO BID Qty: 10 0RF Continued lisinopril 10 mg tablet 10 mg PO DAILY Eliquis 5 mg tablet 5 mg PO BID Qty: 60 0RF Hold Instructions: Resume on 05/25/23. resume taking Eliquis on 05/25/23 methadone 10 mg/mL Concentrate 49 mg PO DAILY hydroxyzine HCl 25 mg tablet 25 mg PO TID Discharge Orders: Discharge Order (Routine); Ordered 09/10/23 Ordered By: Germán Asher Diet: Advance to usual diet Activity on Discharge: As tolerated Stand Alone Forms: Patient Portal Discharge page Care Plan Goals: recovery Health Concerns: etoh Plan of Treatment: inpateint psych, 5 more days augmentin Assessment: see above
[2023-09-10 15:23] VITALS: BP 128/62; PULSE 88; RESP 20; TEMP 37.1; O2SAT 97
[2023-09-10 19:10] VITALS: BP 144/76; PULSE 83; RESP 20; TEMP 37.4; O2SAT 94
[2023-09-10] MEDS: Acetaminophen 325 MG TABLET 650 MG PO (19:36)
[2023-09-10] MEDS: Apixaban 5 MG TABLET PO (20:34)
[2023-09-10 23:30] VITALS: BP 140/71; PULSE 82; RESP 17; TEMP 37; O2SAT 97
== END 2023-09-11 00:25 | disposition other institution (70) | DRG 773 ==
LOC: HO.ED 15:04 → HO.EDOVER 15:44 → HO.ICU 15:46 → HO.IMC 09-09 10:35
PROVIDERS: Physician Assistant; Admitting Provider Internal Medicine Pulmonary Disease; Emergency Provider Emergency Medicine; PCP Internal Medicine; Visit Provider Internal Medicine
DX: F10.232 Alcohol dependence with withdrawal with perceptual disturbance (principal); F11.20 Opioid dependence, uncomplicated; J96.01 Acute respiratory failure with hypoxia; J69.0 Pneumonitis due to inhalation of food and vomit; I95.9 Hypotension, unspecified; R45.851 Suicidal ideations; D64.9 Anemia, unspecified; F10.229 Alcohol dependence with intoxication, unspecified; F32.9 Major depressive disorder, single episode, unspecified; Y90.8 Blood alcohol level of 240 mg/100 ml or more; F17.210 Nicotine dependence, cigarettes, uncomplicated; Z23 Encounter for immunization; Z20.822 Contact with and (suspected) exposure to COVID-19; Z86.711 Personal history of pulmonary embolism; Z86.19 Personal history of other infectious and parasitic diseases; Z59.02 Unsheltered homelessness; Z71.6 Tobacco abuse counseling; Z79.01 Long term (current) use of anticoagulants; Z79.899 Other long term (current) drug therapy
CPT/HCPCS: 0241U; 36415; 70450; 71045; 71250; 80048; 80053; 80307; 81001; 82803; 82947; 83605; 83735; 84100; 85025; 87040; 93005; 94002; 94003; 94799; 99285; C1758; J0295; J0456; J0696; J1644; J2405; J2560; J2704; J3475; J3480; P9047; S9485

== ENCOUNTER → 2023-09-07 10:14 | Outpatient (BNV) | payer MEDICAID, SELFPAY | PROVIDERS: Admitting Provider Internal Medicine Pulmonary Disease; Emergency Provider Emergency Medicine; Visit Provider Internal Medicine | DX: R94.31 Abnormal electrocardiogram [ECG] [EKG] (principal) | CPT/HCPCS: 93010 ==

== ENCOUNTER → 2023-09-07 15:42 | Outpatient (BNV) | payer OTHER, SELFPAY | PROVIDERS: Admitting Provider Internal Medicine Pulmonary Disease; Emergency Provider Emergency Medicine; PCP Internal Medicine; Visit Provider Nurse Practitioner Psychiatric/Mental Health | DX: F10.929 Alcohol use, unspecified with intoxication, unspecified (principal) | CPT/HCPCS: 99232; 99499 ==

== ENCOUNTER → 2023-09-07 15:42 | Outpatient (BNV) | payer MEDICAID, SELFPAY | PROVIDERS: Admitting Provider Internal Medicine Pulmonary Disease; Emergency Provider Emergency Medicine; PCP Internal Medicine; Visit Provider Internal Medicine | DX: F10.20 Alcohol dependence, uncomplicated (principal) | CPT/HCPCS: 99238 ==

== ENCOUNTER → 2023-09-07 15:42 | Outpatient (BNV) | payer MEDICAID, SELFPAY | PROVIDERS: Admitting Provider Internal Medicine Pulmonary Disease; Emergency Provider Emergency Medicine; Visit Provider Internal Medicine Pulmonary Disease | DX: J96.01 Acute respiratory failure with hypoxia (principal); R45.851 Suicidal ideations; F19.10 Other psychoactive substance abuse, uncomplicated; T17.900A Unspecified foreign body in respiratory tract, part unspecified causing asphyxiation, initial encounter; F10.139 Alcohol abuse with withdrawal, unspecified | CPT/HCPCS: 99233; 99291 ==

== ENCOUNTER 2023-09-11 00:42 | Inpatient (IN) | payer OTHER, SELFPAY ==
[2023-09-11 01:15] VITALS: BP 158/91; PULSE 74; RESP 18; TEMP 36.7; O2SAT 97
--- NOTE | 2023-09-11 04:18 | PC.ADMIT ---
Pt is a 57 year old male admitted to the unit via intrahospital transfer from [facility] after referral from CARE Team. Arrived on unit on 09/11/2023 @ 0115. Legal status: CV. Pt medical issues are Hepatitis C and HTN. Pt has hx of 3 back surgeries and a right hip and knee replacement. Pt is a high fall risk d/t hx of withdrawal seizures (pt states they only occur within 1st day after last drink). Pt denies substance use but crisis assessment reports pt does use substances when drinking etoh. Pt states that he became homeless 6 months ago due to drugging and drinking . Pt reports that he was brought into the [facility] ED 3 times and discharged recently, just prior to this admission. Pt reports that he went to a store and bought 2 pints of vodka and chugged them. Pt was found unresponsive and transported to [facility] ED, had to be narcaned, hospitalized in [facility] with toxic encephalopathy and needed to be intubated d/t pulmonary aspiration. Pt states that his AA sponsor and friend told him that he needed to get help and to come to the behavioral health unit for his depression and SI thoughts. Pt acquiesced and is seeking help for his suicidal thoughts. Pt wants to get his life together and stop drinking. Pt is interested in medications mood stabilizer and therapy. Pt is also interested in getting help finding housing again. Pt feels this last episode of drinking was a cry for help . Pt presents as disheveled and somber but hopeful to get help. Good eye contact. Provider fashion consultant selling Palmer notified of transfer and orders were obtained. Pt placed on 15 minute safety checks. Pt reports feeling safe in the hospital.
[2023-09-11 08:15] VITALS: BP 179/83; PULSE 67; RESP 16; TEMP 36.1; O2SAT 98
[2023-09-11] MEDS: methADONE HCl 20 MG/2 ML ORAL.CONC 49 MG PO (10:58)
[2023-09-11] MEDS: hydrOXYzine HCL 25 MG TABLET PO ×2 (14:13→20:39)
[2023-09-11] MEDS: Nicotine Polacrilex 2 MG GUM 4 MG BUCCAL (14:13)
--- NOTE | 2023-09-11 14:54 | P.HPPS_ITS ---
HPI Date of Service: 09/11/23 Chief Complaint: mental health emergency HPI Narrative: per CARE team tori, pt NICKIE 09/07, apparently found in public after having consumed a large amount of alcohol and being obtunded. alcohol level was 495, pt aspirated. he was admitted to medical service and required intubation and ventilation support. he was started on antibx and phenobarb detox protocol. once medically stabilized, he was referred for psychiatric admission, having reported his behavior as being a suicide attempt. he reported depression, helplessness/hopelessness to CARE team staff. he describes a recent history of heavy alcohol use, blackouts, and apparently additional substance use while intoxicated. despite his having described his behavior previously as a suicide attempt, he informed CARE team staff that he only said that because he is homeless and desperate, and that it was not a suicide attempt. he informed CARE team staff that he believes he has a history of anxiety and depression and that perhaps his substance use is self-medication and that he is interested in DDx Tx. per collateral from AA sponsor, pt has been making suicidal threats and also reporting plan and intent to harm himself. on interview with MD on unit pt is calm and cooperative. he expresses the desire for CSS referral and also treatment for depression and anxiety. history is taken, R/B of SSRIs are discussed. pt agrees to trial of zoloft. he has been on campral in the past and felt it was helpful , would like to restart it prior to discharge. Past Psychiatric History: hosps: denies SA: denies. reports index event was a cry for help. SIB: denies HIB: denies outpt: no h/o outpt Tx Primary care provider prescribes Cymbalta and sertraline. Medical Evaluation Reviewed: Yes [facility] Medical History Substance abuse EtOH dependence Hypertension Narrative: lumbago Surgical History Hx of endoscopy History of total right hip replacement Narrative: h/o right knee replacement h/o discectomies Family History: father - alcohol, depression, anxiety brother - alcohol and other drugs Social History: homeless, had been living in intermediate house. never not in a relationship presently. 2 adult sons, both in the area. from [facility] [place]. mother left the family and moved away when he was in 4th grade, primarily raised by his father. 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 2 bros, one sis. Substance History: tobacco - 5 cigs daily alcohol - 1/2 gallon vodka daily cannabis - none (utox POS) opioids - methadone maintenance. utox fentanyl POS. cocaine - none stimulants - denies reports about 10 detoxes and several rehabs Trauma History: denies Diagnostics Vital Signs (24Hr): Vital Signs - 24 hr 09/11/23 01:15 09/11/23 08:15 Temperature 98.1 F 96.9 F Pulse Rate 74 67 Respiratory Rate 18 16 Blood Pressure 158/91 H 179/83 H Pulse Oximetry 97 98 Oxygen Delivery Method Room Air Room Air BMI result Body Mass Index 20.0 Meds/Allergies Meds Home Medications Medication Instructions Recorded Confirmed Type lisinopril 10 mg tablet 10 mg PO DAILY 11/04/22 09/11/23 History hydroxyzine HCl 25 mg tablet 25 mg PO TID 05/19/23 09/11/23 History methadone 10 mg/mL oral concentrate 49 mg PO DAILY 09/09/23 09/11/23 History Allergies Allergies Allergy/AdvReac Type Severity Reaction Status Date / Time bee pollen [BEE STINGS] Allergy Severe SWELLING Verified 09/06/23 10:30 Mental Status Exam Mental Status Exam Narrative: adequately dressed and groomed. cooperative. no PMA/PMR. speech nml rate, amount, loudness, tone, latency. thoughts linear and logical. affect constricted, normo-intense, non-labile. mood a lot better than it's been. denies SI/SIBI/HI/AVH. Assessment & Plan Assessment & Plan (1) Alcohol use disorder, severe, dependence: Status: Acute Code(s): F10.20 - Alcohol dependence, uncomplicated (2) Opioid use disorder, severe, dependence: Status: Acute Code(s): F11.20 - Opioid dependence, uncomplicated (3) Depression: Status: Acute Code(s): F32.A - Depression, unspecified Plan complete phenobarbital protocol. add acamprosate prior to discharge. continue methadone. start zoloft for depression/anxiety. continue antibx for 5 days. refer for CSS. Patient educated on: diagnosis, medication risk/benefits and substance abuse Reason for continued inpatient stay Substantial Risk for: harm to self, inability to function, rapid decompensation and med/psych decompensation Statement Statement: I have reviewed the history and physical and performed a pertinent examination on my patient. No changes have occurred unless specified. If the History and Physical was not performed prior to admission, the Hospitalist's service will be consulted for completing the admission physical. Time Spent With Patient Time: Total time managing care of this patient today __55__ minutes.
[2023-09-11 15:02] VITALS: BP 134/82; PULSE 80
[2023-09-11] MEDS: Amoxicillin/Potassium Clav 875 MG TABLET PO (15:03)
[2023-09-11] MEDS: Sertraline HCL 50 MG TABLET PO (15:03)
[2023-09-11] MEDS: lisinopriL 10 MG TABLET PO (15:03)
[2023-09-11 19:55] VITALS: BP 157/80; PULSE 68; RESP 16; TEMP 36.7; O2SAT 97
[2023-09-11] MEDS: PHENobarbitaL 30 MG TABLET PO (20:40)
[2023-09-11] MEDS: Apixaban 5 MG TABLET PO (20:40)
--- NOTE | 2023-09-11 23:22 | PC.NURSE ---
Yoshi have a time change to his Augmentin, with the time change it appeared that he has not received his medications. the last administration time was 1500 on 09/10. times changed to 0600 and 1800
[2023-09-11] MEDS: Magnesium Hydrox/Alum Hydrox 30 ML ORAL.SUSP PO (23:29)
--- NOTE | 2023-09-12 04:00 | PC.NURSE ---
Yoshi is pleasant and cooperative upon approach. he endorses depression and anxiety but denies all other psych symptoms. The patient stated I wasn't really sure they were sending me to the right place but now that I'm here I'm really glad they sent me here. Yoshi c/o heartburn and received Maalox with apparent positive effect. this policy writer sales encouraged the patient to speak with his providers about the possibility of adding medication for acid reflux.
[2023-09-12] MEDS: Amoxicillin/Potassium Clav 875 MG TABLET PO ×2 (06:36→18:16)
[2023-09-12 08:52] VITALS: BP 149/86; PULSE 86; RESP 18; TEMP 36.7; O2SAT 98
[2023-09-12] MEDS: hydrOXYzine HCL 25 MG TABLET PO ×3 (08:53→20:26)
[2023-09-12] MEDS: methADONE HCl 20 MG/2 ML ORAL.CONC 49 MG PO (08:53)
[2023-09-12] MEDS: PHENobarbitaL 30 MG TABLET PO ×2 (08:54→20:25)
[2023-09-12] MEDS: Sertraline HCL 50 MG TABLET PO (08:54)
[2023-09-12] MEDS: Apixaban 5 MG TABLET PO ×2 (08:54→20:26)
[2023-09-12] MEDS: lisinopriL 10 MG TABLET PO (08:54)
--- NOTE | 2023-09-12 14:46 | MHC.RECOVRN ---
AUDIT-C Brief Intervention Pt had positive screen for unhealthy alcohol use on admission, subsequently met with t/w to discuss alcohol use and recovery supports/options. Of note, pt had presented to the ED unresponsive, had been admitted to ICU, intubated, extubated on 09/08. When pt was medically clear he was assessed by CARE Team and transferred to M3. Pt voices concern regarding alcohol use and is aware that drinking at unhealthy levels is known to increase risk of alcohol related health problems. Pt reports 1/2 gallon+ vodka daily. Pt also reports heroin/fentanyl use when he is intoxicated, however, states it's not my thing but if I'm around it I will use. Pt expresses how alcohol use has impacted health, including negative impact on mental health. Discussed risk reduction strategies including drinking below the recommended limit. Pt reports he has had time in recovery a year here a year and a half there. Pt report he does best when living in sober living housing, staying active with AA, talking with his sponsor, and surrounding himself with other men in recovery. Pt is currently on methadone, 49 mg daily, has been decreasing from 60 mg. Pt reports he is on methadone for chronic pain. Provided pt with written resources including information on inpatient and outpatient treatment, YENIFER, harm reduction, and recovery coaching. Pt plans to go to [facility] upon dc from [facility] [place]. Pt provided with t/w contact information if questions or concerns arise. Denies other questions or concerns at this time.
--- NOTE | 2023-09-12 16:54 | P.PNPSI_ITS ---
Subjective Subjective Date of Service: 09/12/23 Reason For Visit: mental health emergency Interim History: reports feeling well. looking forward to meeting with SW to apply to CSS. no medication s/e. per staff, dep/anx 8. pleasant. not attending groups. c/o heartburn eves. addiction medicine consult placed. Mental Status Exam Mental Status Exam Narrative: adequately dressed and groomed. cooperative. no PMA/PMR. speech nml rate, amount, loudness, tone, latency. thoughts linear and logical. affect constricted, normo-intense, non-labile. mood improved. no SI/SIBI/HI/AVH e xpressed. Diagnostics Vital Signs (24Hr): Vital Signs - 24 hr 09/11/23 19:55 09/12/23 08:52 Temperature 98.0 F 98.1 F Pulse Rate 68 86 Respiratory Rate 16 18 Blood Pressure 157/80 H 149/86 H Pulse Oximetry 97 98 Oxygen Delivery Method Room Air Room Air BMI result Body Mass Index 20.0 Medications Medications Current Medications Acetaminophen (Acetaminophen 325 Mg Tablet) 650 mg PO Q6H PRN PRN Reason: Headache/Pain Mild Scale (1-3) Al Hydroxide/Mg Hydroxide (Magnesium Hydrox/Alum Hydrox 30 Ml Oral.Susp) 30 ml PO Q6H PRN PRN Reason: Heartburn/Nausea Last Admin: 09/11/23 23:29 Dose: 30 ml Amoxicillin/Clavulanate Potassium (Amoxicillin/Potassium Clav 875 Mg Tablet) 875 mg PO Q12H [facility] Stop: 09/16/23 17:59 Last Admin: 09/12/23 06:36 Dose: 875 mg Apixaban (Apixaban 5 Mg Tablet) 5 mg PO BID [facility] Last Admin: 09/12/23 08:54 Dose: 5 mg Hydroxyzine HCl (Hydroxyzine Hcl 25 Mg Tablet) 25 mg PO Q6H PRN PRN Reason: Anxiety Last Admin: 09/11/23 14:13 Dose: 25 mg Hydroxyzine HCl (Hydroxyzine Hcl 25 Mg Tablet) 25 mg PO TID [facility] Last Admin: 09/12/23 15:34 Dose: 25 mg Lisinopril (Lisinopril 10 Mg Tablet) 10 mg PO DAILY [facility]; Protocol Last Admin: 09/12/23 08:54 Dose: 10 mg Magnesium Hydroxide (Milk Of Magnesia 30 Ml Oral.Susp) 30 ml PO DAILY PRN PRN Reason: Constipation Methadone HCl (Methadone Hcl 20 Mg/2 Ml Oral.Conc) 49 mg PO DAILY [facility] Last Admin: 09/12/23 08:53 Dose: 49 mg Nicotine Polacrilex (Nicotine Polacrilex 2 Mg Gum) 4 mg BUCCAL Q2H PRN PRN Reason: Nicotine Cravings Last Admin: 09/11/23 14:13 Dose: 4 mg Phenobarbital (Phenobarbital 30 Mg Tablet) 30 mg PO BID [facility] Stop: 09/12/23 21:01 Last Admin: 09/12/23 08:54 Dose: 30 mg Phenobarbital (Phenobarbital 15 Mg Tablet) 15 mg PO DAILY [facility] Stop: 09/14/23 09:01 Sertraline HCl (Sertraline Hcl 50 Mg Tablet) 50 mg PO DAILY [facility] Last Admin: 09/12/23 08:54 Dose: 50 mg Trazodone HCl (Trazodone Hcl 50 Mg Tablet) 50 mg PO BEDTIME MRX1 PRN PRN Reason: Insomnia Allergies Allergies Allergy/AdvReac Type Severity Reaction Status Date / Time bee pollen [BEE STINGS] Allergy Severe SWELLING Verified 09/06/23 10:30 Assessment & Plan Assessment & Plan (1) Alcohol use disorder, severe, dependence: Status: Acute Code(s): F10.20 - Alcohol dependence, uncomplicated (2) Opioid use disorder, severe, dependence: Status: Acute Code(s): F11.20 - Opioid dependence, uncomplicated (3) Depression: Status: Acute Code(s): F32.A - Depression, unspecified Plan 09/10: complete phenobarbital protocol. add acamprosate prior to discharge. continue methadone. start zoloft for depression/anxiety. continue antibx for 5 days. refer for CSS. 09/11: stable, no medication side effects. continue current mgmt. Reason for continued inpatient stay Substantial Risk for: inability to function and rapid decompensation Time Spent With Patient Time: Total time managing care of this patient today ____ minutes.
[2023-09-12 20:10] VITALS: BP 154/76; PULSE 75; RESP 16; TEMP 36.8; O2SAT 98
[2023-09-13] MEDS: Amoxicillin/Potassium Clav 875 MG TABLET PO ×2 (06:05→18:39)
[2023-09-13 07:40] VITALS: BP 157/78; PULSE 76; RESP 16; RESP 18; TEMP 35.9; O2SAT 99
[2023-09-13] MEDS: methADONE HCl 20 MG/2 ML ORAL.CONC 49 MG PO (08:58)
[2023-09-13] MEDS: PHENobarbitaL 15 MG TABLET PO (09:00)
[2023-09-13] MEDS: hydrOXYzine HCL 25 MG TABLET PO ×3 (09:00→20:34)
[2023-09-13] MEDS: Apixaban 5 MG TABLET PO ×2 (09:00→20:34)
[2023-09-13] MEDS: lisinopriL 10 MG TABLET PO (09:00)
[2023-09-13] MEDS: Sertraline HCL 50 MG TABLET PO (09:00)
[2023-09-13] MEDS: Nicotine Polacrilex 2 MG GUM 4 MG BUCCAL (10:35)
--- NOTE | 2023-09-13 14:52 | HO.PSYCHPN ---
Subjective Subjective Date of Service: 09/13/23 Reason For Visit: mental health emergency Interim History: feeling better being here. interested in CSS referral. amenable to add campral 333 TID for today and increase to 666 TID as of tomorrow. wants to get off of methadone and back onto vivitrol. asks to taper methadone to 45 mg as of tomorrow. per staff, brighter affect, calm, cooperative. Mental Status Exam Mental Status Exam Narrative: adequately dressed and groomed. cooperative. no PMA/PMR. speech nml rate, amount, loudness, tone, latency. thoughts linear and logical. affect constricted, normo-intense, non-labile. mood improved. no SI/SIBI/HI/AVH expressed. Diagnostics Vital Signs (24Hr): Vital Signs - 24 hr 09/12/23 20:10 09/13/23 07:40 09/13/23 07:40 Temperature 98.2 F 96.6 F L 96.6 F L Pulse Rate 75 76 76 Respiratory Rate 16 16 18 Blood Pressure 154/76 H 157/78 H 157/78 H Pulse Oximetry 98 99 99 Oxygen Delivery Method Room Air Room Air Room Air BMI result Body Mass Index 20.0 Medications Medications Current Medications Acamprosate (Acamprosate Calcium 333 Mg Tablet.) 333 mg PO TID [facility] Acetaminophen (Acetaminophen 325 Mg Tablet) 650 mg PO Q6H PRN PRN Reason: Headache/Pain Mild Scale (1-3) Al Hydroxide/Mg Hydroxide (Magnesium Hydrox/Alum Hydrox 30 Ml Oral.Susp) 30 ml PO Q6H PRN PRN Reason: Heartburn/Nausea Last Admin: 09/11/23 23:29 Dose: 30 ml Amoxicillin/Clavulanate Potassium (Amoxicillin/Potassium Clav 875 Mg Tablet) 875 mg PO Q12H [facility] Stop: 09/16/23 17:59 Last Admin: 09/13/23 06:05 Dose: 875 mg Apixaban (Apixaban 5 Mg Tablet) 5 mg PO BID [facility] Last Admin: 09/13/23 09:00 Dose: 5 mg Hydroxyzine HCl (Hydroxyzine Hcl 25 Mg Tablet) 25 mg PO Q6H PRN PRN Reason: Anxiety Last Admin: 09/11/23 14:13 Dose: 25 mg Hydroxyzine HCl (Hydroxyzine Hcl 25 Mg Tablet) 25 mg PO TID [facility] Last Admin: 09/13/23 09:00 Dose: 25 mg Lisinopril (Lisinopril 10 Mg Tablet) 10 mg PO DAILY [facility]; Protocol Last Admin: 09/13/23 09:00 Dose: 10 mg Magnesium Hydroxide (Milk Of Magnesia 30 Ml Oral.Susp) 30 ml PO DAILY PRN PRN Reason: Constipation Methadone HCl (Methadone Hcl 20 Mg/2 Ml Oral.Conc) 45 mg PO DAILY [facility] Nicotine Polacrilex (Nicotine Polacrilex 2 Mg Gum) 4 mg BUCCAL Q2H PRN PRN Reason: Nicotine Cravings Last Admin: 09/13/23 10:35 Dose: 4 mg Phenobarbital (Phenobarbital 15 Mg Tablet) 15 mg PO DAILY [facility] Stop: 09/14/23 09:01 Last Admin: 09/13/23 09:00 Dose: 15 mg Sertraline HCl (Sertraline Hcl 50 Mg Tablet) 50 mg PO DAILY [facility] Last Admin: 09/13/23 09:00 Dose: 50 mg Trazodone HCl (Trazodone Hcl 50 Mg Tablet) 50 mg PO BEDTIME MRX1 PRN PRN Reason: Insomnia Allergies Allergies Allergy/AdvReac Type Severity Reaction Status Date / Time bee pollen [BEE STINGS] Allergy Severe SWELLING Verified 09/06/23 10:30 Assessment & Plan Assessment & Plan (1) Alcohol use disorder, severe, dependence: Status: Acute Code(s): F10.20 - Alcohol dependence, uncomplicated (2) Opioid use disorder, severe, dependence: Status: Acute Code(s): F11.20 - Opioid dependence, uncomplicated (3) Depression: Status: Acute Code(s): F32.A - Depression, unspecified Plan 3/: complete phenobarbital protocol. add acamprosate prior to discharge. continue methadone. start zoloft for depression/anxiety. continue antibx for 5 days. refer for CSS. 09/11: stable, no medication side effects. continue current mgmt. 09/12: stable, feeling well. start campral 333 TID. decrease methadone to 45 mg daily. refer to [facility] for CSS. Reason for continued inpatient stay Substantial Risk for: inability to function and rapid decompensation Time Spent With Patient Time: Total time managing care of this patient today _25___ minutes.
[2023-09-13] MEDS: Acamprosate Calcium 333 MG TABLET.DR PO ×2 (15:02→20:34)
[2023-09-13 19:50] VITALS: BP 133/77; PULSE 81; RESP 16; TEMP 36.5; O2SAT 98
[2023-09-13] MEDS: Magnesium Hydrox/Alum Hydrox 30 ML ORAL.SUSP PO (21:34)
[2023-09-14] MEDS: Amoxicillin/Potassium Clav 875 MG TABLET PO ×2 (06:18→17:15)
[2023-09-14] MEDS: Magnesium Hydrox/Alum Hydrox 30 ML ORAL.SUSP PO (06:19)
[2023-09-14 08:19] VITALS: BP 133/61; PULSE 66; RESP 18; TEMP 35.4; O2SAT 98
[2023-09-14] MEDS: lisinopriL 10 MG TABLET PO (09:50)
[2023-09-14] MEDS: hydrOXYzine HCL 25 MG TABLET PO ×3 (09:50→21:46)
[2023-09-14] MEDS: Apixaban 5 MG TABLET PO ×2 (09:50→21:45)
[2023-09-14] MEDS: Sertraline HCL 50 MG TABLET PO (09:50)
[2023-09-14] MEDS: PHENobarbitaL 15 MG TABLET PO (09:51)
[2023-09-14] MEDS: Acamprosate Calcium 333 MG TABLET.DR PO (09:51)
[2023-09-14] MEDS: methADONE HCl 20 MG/2 ML ORAL.CONC 45 MG PO (09:52)
[2023-09-14] MEDS: Omeprazole 20 MG CAPSULE.DR PO (12:05)
[2023-09-14] MEDS: Acamprosate Calcium 333 MG TABLET.DR 666 MG PO ×2 (15:02→21:46)
--- NOTE | 2023-09-14 15:45 | HO.PSYCHPN ---
Subjective Subjective Date of Service: 09/14/23 Reason For Visit: mental health emergency Interim History: calm, cooperative. feeling well, looking forward to CSS. agreeable to raise campral to 666 TID. also asking to start omeprazole, which he had been on in the past for GERD Sx. per staff, dep/anx. flat. withdrawn. taking meds. c/o heartburn and constipation. Mental Status Exam Mental Status Exam Narrative: adequately dressed and groomed. cooperative. no PMA/PMR. speech nml rate, amount, loudness, tone, latency. thoughts linear and logical. affect constricted, normo-intense, non-labile. mood improved. no SI/SIBI/HI/AVH expressed. Diagnostics Vital Signs (24Hr): Vital Signs - 24 hr 09/13/23 19:50 09/14/23 08:19 Temperature 97.7 F 95.7 F L Pulse Rate 81 66 Respiratory Rate 16 18 Blood Pressure 133/77 133/61 Pulse Oximetry 98 98 Oxygen Delivery Method Room Air Room Air BMI result Body Mass Index 20.0 Medications Medications Current Medications Acamprosate (Acamprosate Calcium 333 Mg Tablet.) 666 mg PO TID [facility] Last Admin: 09/14/23 15:02 Dose: 666 mg Acetaminophen (Acetaminophen 325 Mg Tablet) 650 mg PO Q6H PRN PRN Reason: Headache/Pain Mild Scale (1-3) Al Hydroxide/Mg Hydroxide (Magnesium Hydrox/Alum Hydrox 30 Ml Oral.Susp) 30 ml PO Q6H PRN PRN Reason: Heartburn/Nausea Last Admin: 09/14/23 06:19 Dose: 30 ml Amoxicillin/Clavulanate Potassium (Amoxicillin/Potassium Clav 875 Mg Tablet) 875 mg PO Q12H [facility] Stop: 09/16/23 17:59 Last Admin: 09/14/23 06:18 Dose: 875 mg Apixaban (Apixaban 5 Mg Tablet) 5 mg PO BID [facility] Last Admin: 09/14/23 09:50 Dose: 5 mg Hydroxyzine HCl (Hydroxyzine Hcl 25 Mg Tablet) 25 mg PO Q6H PRN PRN Reason: Anxiety Last Admin: 09/11/23 14:13 Dose: 25 mg Hydroxyzine HCl (Hydroxyzine Hcl 25 Mg Tablet) 25 mg PO TID [facility] Last Admin: 09/14/23 15:02 Dose: 25 mg Lisinopril (Lisinopril 10 Mg Tablet) 10 mg PO DAILY [facility]; Protocol Last Admin: 09/14/23 09:50 Dose: 10 mg Magnesium Hydroxide (Milk Of Magnesia 30 Ml Oral.Susp) 30 ml PO DAILY PRN PRN Reason: Constipation Methadone HCl (Methadone Hcl 20 Mg/2 Ml Oral.Conc) 45 mg PO DAILY [facility] Last Admin: 09/14/23 09:52 Dose: 45 mg Nicotine Polacrilex (Nicotine Polacrilex 2 Mg Gum) 4 mg BUCCAL Q2H PRN PRN Reason: Nicotine Cravings Last Admin: 09/13/23 10:35 Dose: 4 mg Omeprazole (Omeprazole 20 Mg Capsule.Dr) 20 mg PO DAILY@0630 [facility] Last Admin: 09/14/23 12:05 Dose: 20 mg Sertraline HCl (Sertraline Hcl 50 Mg Tablet) 50 mg PO DAILY [facility] Last Admin: 09/14/23 09:50 Dose: 50 mg Trazodone HCl (Trazodone Hcl 50 Mg Tablet) 50 mg PO BEDTIME MRX1 PRN PRN Reason: Insomnia Allergies Allergies Allergy/AdvReac Type Severity Reaction Status Date / Time bee pollen [BEE STINGS] Allergy Severe SWELLING Verified 09/06/23 10:30 Assessment & Plan Assessment & Plan (1) Alcohol use disorder, severe, dependence: Status: Acute Code(s): F10.20 - Alcohol dependence, uncomplicated (2) Opioid use disorder, severe, dependence: Status: Acute Code(s): F11.20 - Opioid dependence, uncomplicated (3) Depression: Status: Acute Code(s): F32.A - Depression, unspecified Plan 3/: complete phenobarbital protocol. add acamprosate prior to discharge. continue methadone. start zoloft for depression/anxiety. continue antibx for 5 days. refer for CSS. 09/11: stable, no medication side effects. continue current mgmt. 09/12: stable, feeling well. start campral 333 TID. decrease methadone to 45 mg daily. refer to [facility] for CSS. 09/13: incr campral to 666 TID. start omep 20 daily. awaiting word from [facility]. Reason for continued inpatient stay Substantial Risk for: inability to function and rapid decompensation Time Spent With Patient Time: Total time managing care of this patient today __25__ minutes.
[2023-09-14 19:43] VITALS: BP 121/63; PULSE 69; RESP 18; TEMP 36.2; O2SAT 100
[2023-09-14] MEDS: Acetaminophen 325 MG TABLET 650 MG PO (21:49)
[2023-09-15] MEDS: Amoxicillin/Potassium Clav 875 MG TABLET PO ×2 (07:02→18:22)
[2023-09-15] MEDS: Omeprazole 20 MG CAPSULE.DR PO (07:02)
[2023-09-15] MEDS: methADONE HCl 20 MG/2 ML ORAL.CONC 45 MG PO (08:52)
[2023-09-15 09:30] VITALS: BP 130/61; PULSE 66; RESP 20; TEMP 36.1; O2SAT 97
[2023-09-15] MEDS: Sertraline HCL 50 MG TABLET PO (09:56)
[2023-09-15] MEDS: Acamprosate Calcium 333 MG TABLET.DR 666 MG PO ×3 (09:56→21:37)
[2023-09-15] MEDS: hydrOXYzine HCL 25 MG TABLET PO ×3 (09:56→21:37)
[2023-09-15] MEDS: Apixaban 5 MG TABLET PO ×2 (09:56→21:37)
[2023-09-15] MEDS: lisinopriL 10 MG TABLET PO (09:56)
--- NOTE | 2023-09-15 11:59 | P.DS_ITS ---
DS: Providers Provider Date of Service: 09/15/23 Date of admission: 09/11/23 00:42 Primary care physician: Unknown Physician Consults: 09/11/23 04:02 Addiction Medicine Routine Consulting Provider: Addiction Covering Reason for consultation: positive audit C DS: Diagnosis Discharge Diagnosis (1) Alcohol use disorder, severe, dependence: Status: Acute (2) Opioid use disorder, severe, dependence: Status: Acute (3) Depression: Status: Acute DS: Medications Discharge Medications Home Medications: Previous Rx's Medication Instructions Recorded acamprosate 333 mg tablet,delayed 666 mg (2 x 333 mg) PO TID 30 days 09/15/23 release #180 tabs apixaban 5 mg tablet (Eliquis) 5 mg PO BID 30 days #60 tabs 09/15/23 food supplemt, lactose-reduced 1 ea PO BID 30 days #5,688 mL 09/15/23 (Ensure oral liquid) hydroxyzine HCl 25 mg tablet 25 mg PO TID 30 days #90 tabs 09/15/23 lisinopril 10 mg tablet 10 mg PO DAILY 30 days #30 tabs 09/15/23 methadone 10 mg/mL oral 45 mg (4.5 mL) PO DAILY #0 mL 09/15/23 concentrate (Methadose) nicotine (polacrilex) 2 mg gum 4 mg buccal Q2H PRN Nicotine 09/15/23 Cravings 30 days #100 ea omeprazole 20 mg capsule,delayed 20 mg PO DAILY@0630 30 days #30 09/15/23 release caps sertraline 50 mg tablet 50 mg PO DAILY 30 days #30 tabs 09/15/23 Mental Status Exam Mental Status Exam Narrative: adequately dressed and groomed. cooperative. no PMA/PMR. speech nml rate, amount, loudness, tone, latency. thoughts linear and logical. affect constricted, normo-intense, non-labile. mood good. no SI/SIBI/HI/AVH. DS: Summary Hospital Course Hospital Course: per 09/10 admission note: per CARE team tori, pt BIBA 09/07, apparently found in public after having consumed a large amount of alcohol and being obtunded. alcohol level was 495, pt aspirated. he was admitted to medical service and required intubation and ventilation support. he was started on antibx and phenobarb detox protocol. once medically stabilized, he was referred for psychiatric admission, having reported his behavior as being a suicide attempt. he reported depression, helplessness/hopelessness to CARE team staff. he describes a recent history of heavy alcohol use, blackouts, and apparently additional substance use while intoxicated. despite his having described his behavior previously as a suicide attempt, he informed CARE team staff that he only said that because he is homeless and desperate, and that it was not a suicide attempt. he informed CARE team staff that he believes he has a history of anxiety and depression and that perhaps his substance use is self-medication and that he is interested in DDx Tx. per collateral from AA sponsor, pt has been making suicidal threats and also reporting plan and intent to harm himself. on interview with MD on unit pt is calm and cooperative. he expresses the desire for CSS referral and also treatment for depression and anxiety. history is taken, R/B of SSRIs are discussed. pt agrees to trial of zoloft. he has been on campral in the past and felt it was helpful , would like to restart it prior to discharge. Past Psychiatric History: hosps: denies SA: denies. reports index event was a cry for help. SIB: denies HIB: denies outpt: no h/o outpt Tx Primary care provider prescribes Cymbalta and sertraline. Medical Evaluation Reviewed: Yes [facility] Medical History Substance abuse EtOH dependence Hypertension Narrative: lumbago Surgical History Hx of endoscopy History of total right hip replacement Narrative: h/o right knee replacement h/o discectomies Family History: father - alcohol, depression, anxiety brother - alcohol and other drugs Social History: homeless, had been living in nursing home house. never not in a relationship presently. 2 adult sons, both in the area. from [facility]. mother left the family and moved away when he was in 4th grade, primarily raised by his father. 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 2 bros, one sis. Substance History: tobacco - 5 cigs daily alcohol - 1/2 gallon vodka daily cannabis - none (utox POS) opioids - methadone maintenance. utox fentanyl POS. cocaine - none stimulants - denies reports about 10 detoxes and several rehabs Trauma History: denies Precis: 09/10: complete phenobarbital protocol. add acamprosate prior to discharge. continue methadone. start zoloft for depression/anxiety. continue antibx for 5 days. refer for CSS. 09/11: stable, no medication side effects. continue current mgmt. 09/12: stable, feeling well. start campral 333 TID. decrease methadone to 45 mg daily. refer to [facility] for CSS. 09/13: incr campral to 666 TID. start omep 20 daily. awaiting word from [facility]. 09/14: accepted to [facility] for tomorrow. meds reviewed, reconciled, prescribed. no safety concerns. 09/15: stable, no events overnight. discharged as per plan to [facility]. Time Spent with Patient Time attestation: Total time managing care of this patient today __35__ minutes. Discharge Plan Discharge Anticipated Discharge Date/Time: 09/16/23 10:00 Patient Disposition: Xfer Inpatient Rehab Fac Discharge Diagnosis: Depressive Disorder NOS Alcohol Use Disorder Opioid Use Disorder, Full Agonist Maintenance Referrals: Maximo Morfin MD [Physician] - 09/23/23 2:45 pm (PCP appt 09/23/23 @ 245pm with Maximo Morfin [phone]) Discharge Medications: New nicotine (polacrilex) 2 mg Gum 4 mg buccal Q2H PRN (Reason: Nicotine Cravings) 30 Days Qty: 100 0RF omeprazole 20 mg Capsule,Delayed Release(Dr/Ec) 20 mg PO DAILY@0630 30 Days Qty: 30 0RF methadone [Methadose] 10 mg/mL Concentrate 45 mg PO DAILY Qty: 0 0RF Rx Instructions: Partial Fill upon patient request. sertraline 50 mg Tablet 50 mg PO DAILY 30 Days Qty: 30 0RF acamprosate 333 mg Tablet,Delayed Release (Dr/Ec) 666 mg PO TID 30 Days Qty: 180 0RF Ensure Liquid 1 ea PO BID 30 Days Qty: 5688 2RF Continued lisinopril 10 mg tablet 10 mg PO DAILY 30 Days Qty: 30 0RF hydroxyzine HCl 25 mg tablet 25 mg PO TID 30 Days Qty: 90 0RF Eliquis 5 mg tablet 5 mg PO BID 30 Days Qty: 60 0RF Discontinued methadone 10 mg/mL Concentrate 49 mg PO DAILY Discharge Orders: Discharge Order (Routine); Ordered 09/16/23 Ordered By: Oumar Chakraborty Diet: Advance to usual diet Activity on Discharge: As tolerated Stand Alone Forms: Patient Portal Discharge page, Community Support Care Plan Goals: remain safe, stable, and sober in the outpatient treatment setting Health Concerns: none Plan of Treatment: take medications as prescribed, attend residential drug rehab program Assessment: not at imminent risk of harm to self or others Discharge Date/Time: 09/16/23 13:32
[2023-09-15] MEDS: Magnesium Hydrox/Alum Hydrox 30 ML ORAL.SUSP PO (13:07)
[2023-09-15 19:55] VITALS: BP 112/56; PULSE 70; RESP 16; TEMP 36.1; O2SAT 99
[2023-09-16] MEDS: Amoxicillin/Potassium Clav 875 MG TABLET PO (06:24)
[2023-09-16] MEDS: Omeprazole 20 MG CAPSULE.DR PO (06:24)
[2023-09-16] MEDS: Acamprosate Calcium 333 MG TABLET.DR 666 MG PO (08:12)
[2023-09-16] MEDS: Sertraline HCL 50 MG TABLET PO (08:12)
[2023-09-16] MEDS: hydrOXYzine HCL 25 MG TABLET PO (08:13)
[2023-09-16] MEDS: Apixaban 5 MG TABLET PO (08:13)
[2023-09-16] MEDS: methADONE HCl 20 MG/2 ML ORAL.CONC 45 MG PO (08:13)
[2023-09-16] MEDS: lisinopriL 10 MG TABLET PO (08:13)
[2023-09-16 08:42] VITALS: BP 136/69; PULSE 64; RESP 14; TEMP 36.5; O2SAT 97
[2023-09-16] MEDS: Naloxone HCl Nasal TAKE HOME 4 MG SPRAY 8 MG NOSTRILALT (11:30)
== END 2023-09-16 13:32 | DRG 754 ==
PROVIDERS: Admitting Provider Psychiatry & Neurology Psychiatry; Visit Provider Psychiatry & Neurology Psychiatry
DX: F32.A Depression, unspecified (principal); R45.851 Suicidal ideations; F11.20 Opioid dependence, uncomplicated; F10.20 Alcohol dependence, uncomplicated; F17.210 Nicotine dependence, cigarettes, uncomplicated; Z23 Encounter for immunization; Z71.6 Tobacco abuse counseling; Z79.01 Long term (current) use of anticoagulants; Z79.899 Other long term (current) drug therapy
CPT/HCPCS: 90686

== ENCOUNTER → 2023-09-11 00:42 | Outpatient (BNV) | payer OTHER, SELFPAY | PROVIDERS: Admitting Provider Psychiatry & Neurology Psychiatry; Visit Provider Psychiatry & Neurology Psychiatry | DX: F33.2 Major depressive disorder, recurrent severe without psychotic features (principal); F10.20 Alcohol dependence, uncomplicated; F11.20 Opioid dependence, uncomplicated | CPT/HCPCS: 99231; 99232; 99233 ==

== ENCOUNTER → 2023-10-13 12:54 | Outpatient (REF) | payer MEDICAID, SELFPAY ==
--- NOTE | 2023-10-13 13:02 | HM_ITS ---
Conclusion: 1. Patient was monitored for total period of 2 days 2. Baseline was normal sinus rhythm with average heart of 77 beats per minute 3. No significant pauses noted 4. Rare ectopy noted 5. No patient reported events MTDD
== END ==
LOC: HO.CARD 12:54
PROVIDERS: PCP Internal Medicine; Visit Provider Psychiatry & Neurology Neurology
DX: R55 Syncope and collapse (principal)
CPT/HCPCS: 93225

== ENCOUNTER → 2023-10-13 13:02 | Outpatient (BNV) | payer MEDICAID, SELFPAY | PROVIDERS: PCP Internal Medicine; Visit Provider Internal Medicine Cardiovascular Disease | DX: I49.3 Ventricular premature depolarization (principal) | CPT/HCPCS: 93227 ==

== ENCOUNTER 2023-12-22 13:02 | Emergency (ER) | payer MEDICAID, SELFPAY ==
--- NOTE | ~2023-12-22 | CT_ITS ---
EXAMINATION: CT HEAD WITHOUT CONTRAST CT CERVICAL SPINE WITHOUT CONTRAST CLINICAL INFORMATION: Altered mental status, pain, post fall. COMPARISON: CT head 09/07/2023. CT head and cervical spine 08/29/2023. TECHNIQUE: Contiguous axial imaging was performed from the skull base to vertex without intravenous administration of contrast. Contiguous axial imaging was performed from the upper chest through the skull base without intravenous administration of contrast. Coronal and sagittal reformats were obtained at the acquisition workstation. This CT examination was performed using dose optimization techniques as appropriate, variously including the following: *Automated exposure control *Adjustment of mA and/or kV according to patient size (this includes techniques or standardized protocols for targeted exams where dose is matched to indication/reason for exam; i.e. extremities or head) *Use of iterative reconstruction technique DLP: 983 mGy-cm FINDINGS: Head: There is no evidence of acute intracranial hemorrhage or edematous territorial infarction. Stable lacunar infarct adjacent to the right caudate nucleus. A few foci of hypoattenuation in the periventricular and deep white matter are consistent with mild microangiopathy. Gaines-white matter differentiation is preserved. Proportional prominence of the ventricles and sulcal spaces. No evidence for obstructive hydrocephalus. No abnormal mass effect or midline shift. No extra-axial fluid collections. Stable partially calcified hyperdense extra-axial lesion in the left temporal region measuring 2.1 cm (image 145 series 18), most suggestive of a meningioma No acute soft tissue or osseous abnormalities. Small mucous retention cysts in the maxillary sinuses, otherwise paranasal sinuses are clear. The mastoids and middle air cavities are clear. Cervical Spine: The atlantooccipital and atlantoaxial articulations remain well aligned. No evidence of acute fracture or subluxation. Multilevel cervical spondylosis with moderate intervertebral disc height loss at C4-C5 and C5-C6 and moderate multilevel facet arthropathy leading to various degrees of neural foraminal encroachment. Prominent calcifications of the posterior spinal longitudinal ligament at the level of C6 leading to some degree of central spinal canal stenosis. There is no prevertebral soft tissue swelling. The thyroid gland and remaining cervical soft tissues are normal in appearance. The lung apices demonstrate no abnormalities. CT/CT cervical spine wo IV con IMPRESSION: 1. No acute intracranial pathology. 2. No acute cervical spinal fractures or malalignment. 3. Stable partially calcified extra-axial lesion in the left temporal region, most suggestive of a meningioma. 4. Moderate multilevel cervical spondylosis leading to various degrees of neural foraminal encroachment/central canal stenosis.
--- NOTE | ~2023-12-22 | XR_ITS ---
EXAMINATION: XR FEMUR, LEFT CLINICAL INFORMATION: Fall, leg pain. COMPARISON: X-ray pelvis 03/28/2022. TECHNIQUE: AP and lateral views of the left femur were obtained. FINDINGS: Orthopedic hardware comprised of femoral intramedullary nail, 2 oblique screws extending into the femoral head and neck, and a distal locking screw. Intact hardware. No suspicious perihardware lucency. There is a mildly displaced fracture of the lesser trochanter, medial aspect of the base of the femoral neck and intertrochanteric region. This is of indeterminate age. No acute fracture is otherwise seen. Left hip joint space is maintained. Left lateral acetabular subchondral bony sclerosis. Symphysis pubis is intact. Hardware projected over the lumbosacral junction. No significant knee joint effusion is seen. XR/XR femur LT 2V IMPRESSION: Postsurgical changes with left femoral orthopedic hardware, detailed above. No hardware fracture. Mildly displaced fracture of the lesser trochanter, medial aspect of the femoral neck base and intertrochanteric region of indeterminate age. Acute fracture superimposed on more subacute/chronic changes cannot be excluded. Correlate for focal symptoms. Correlate with prior imaging and surgical history.
--- NOTE | ~2023-12-22 | CT_ITS ---
EXAMINATION: CT CHEST WITH IV CONTRAST CT ABDOMEN AND PELVIS WITH IV CONTRAST CLINICAL INFORMATION: History of fall on blood thinner. Abdominal trauma. Altered mental status. COMPARISON: Chest CT from 09/07/2023. Abdomen/pelvis CT from 05/13/2023. TECHNIQUE: Multidetector CT imaging examination of the chest, abdomen and pelvis was performed with intravenous administration of 85 mL Omnipaque 350. Axial images are displayed at 0.6 mm and 5 mm slice thickness. Oral contrast was given. Coronal and sagittal reformatted images were generated at the technologist's workstation and submitted for review. This CT examination was performed using dose optimization techniques as appropriate, variously including the following: *Automated exposure control *Adjustment of mA and/or kV according to patient size (this includes techniques or standardized protocols for targeted exams where dose is matched to indication/reason for exam; i.e. extremities or head) *Use of iterative reconstruction technique DLP: 739 mGy-cm FINDINGS: CHEST - LUNGS AND PLEURA: Trachea and central airways are widely patent and normal in caliber. Mild centrilobular and paraseptal emphysema of upper lobes. No acute pulmonary abnormality. Old subpleural linear opacity in the lateral left lower lobe has the appearance of focal fibrosis/scarring. No suspicious lung lesion. No pneumothorax or pleural effusion. CARDIOVASCULAR: Cardiac chambers are normal in size. No pericardial effusion. Multivessel coronary artery atherosclerotic calcification is present. Atherosclerosis of the thoracic aorta. The ascending aorta is 3.8 cm AP diameter at the level the right pulmonary artery. 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 No acute aortic injury. No intramural hematoma or dissection. Pulmonary arteries are normal in size. MEDIASTINUM/LOWER NECK: The esophagus is grossly normal. No mediastinal mass. 0.4 cm rim calcified nodule is present in the right thyroid lobe. No clinically significant nodule detected. No thyroid imaging follow-up recommended. LYMPHATICS: No pathologic sized axillary, hilar or mediastinal lymph nodes. BONES AND THORACIC SOFT TISSUES: No chest wall hematoma. Prior plate fixation of multiple right-sided ribs. No acute rib fractures. No hardware loosening. No acute findings within the degenerated lower cervical or thoracic spine. Chronic mild height loss of several thoracic vertebra. ABDOMEN AND PELVIS - HEPATOBILIARY: Liver has normal size, contour and attenuation. Small 0.5 cm cyst is present in the right lobe of the liver. Gallbladder is unremarkable. No bile duct dilatation. PANCREAS: No edema, mass or pancreatic ductal dilatation. SPLEEN: Normal. ADRENAL GLANDS: Normal. KIDNEYS AND URETERS: Kidneys are normal in size. No nephrolithiasis, hydronephrosis or perinephric edema. 3.2 cm simple cyst of the left kidney. No renal imaging follow-up recommended. BOWEL AND PERITONEUM: No dilated bowel loops. The appendix is normal. The colon is underdistended. No edematous thickening of bowel martinez. There are diverticula of the colon without evidence of diverticulitis. No abdominal free fluid or free air. ABDOMINAL WALL: Unremarkable. VESSELS: Atherosclerotic calcification of the abdominal aorta and iliofemoral vessels without aneurysm. No retroperitoneal hematoma. LYMPH NODES: No pathologic sized lymph nodes in the abdomen or pelvis. No inguinal lymphadenopathy. BLADDER: Normal. PELVIC VISCERA: Prostate gland is unremarkable. MUSCULOSKELETAL: Chondrocalcinosis of the degenerated spine. Old L1 vertebral body compression fracture resulting in approximately 50-60% anterior height loss. Multilevel vacuum disc degenerative change of the spine. Interbody fusion cage is well-positioned in the disc space of L4-5 and L5-S1. Bilateral transpedicular screws and posterior fusion rods are intact at L3-L4. Mild osteoarthritis of sacroiliac joints. Old osseous excrescence projecting from the posterolateral surface of the proximal left iliac bone could be sequela of remote trauma. Old healed fracture of the right iliac bone. Compared to 05/13/2023, interval placement of a long left femoral antegrade fixation nail and femoral neck screws. There is a subacute, comminuted, mildly displaced, healing left intertrochanteric fracture. No evidence of acute femoral fracture or acetabular injury. The visualized components of the right total hip arthroplasty are in normal position. CT/CT abdomen pelvis w IV con IMPRESSION: * No evidence of acute traumatic pathology in the chest, abdomen or pelvis. * No pulmonary contusion, pneumothorax or pleural effusion. * Prior plate fixation of right rib fractures without loosening of hardware. * Other old injuries include L1 vertebral body compression fracture, healed fracture of the right iliac bone and subacute, healing, comminuted left femoral intertrochanteric fracture, status post hardware fixation. 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
--- NOTE | 2023-12-22 13:52 | ED_ITS ---
HPI - General Adult General Chief complaint: ETOH/Substance Use Stated complaint: UNCONS ON BUS,ADMITS TO ETOH USE PER EMS Time Seen by Provider: 12/22/23 13:45 Source: patient Mode of arrival: ambulatory Limitations: altered mental status History of Present Illness ED Provider: Phoenix HICKMAN HPI narrative: This is a 58-year-old male past medical history significant for opiate use disorder, alcohol abuse, hypertension brought in by ambulance found outside of a bus stop where 911 was called by a bystandard. Per EMS he was found unresposive but breathing. It was reported to us by EMS that patient drink 2 pt of vodka prior to his arrival. Nobody saw the patient fall he was found on the ground but not clear if he fell or not. He is not answering any questions. He is somnolent. Patient does not appear to be in any acute distress. He is on eliquis and told nursing staff he is taking this as rx. Related Data Previous Rx's ?Medication ?Instructions ?Recorded acamprosate 333 mg tablet,delayed 666 mg (2 x 333 mg) PO TID 30 days 09/15/23 release #180 tabs apixaban 5 mg tablet (Eliquis) 5 mg PO BID 30 days #60 tabs 09/15/23 food supplemt, lactose-reduced 1 ea PO BID 30 days #5,688 mL 09/15/23 (Ensure oral liquid) hydroxyzine HCl 25 mg tablet 25 mg PO TID 30 days #90 tabs 09/15/23 lisinopril 10 mg tablet 10 mg PO DAILY 30 days #30 tabs 09/15/23 methadone 10 mg/mL oral 45 mg (4.5 mL) PO DAILY #0 mL 09/15/23 concentrate (Methadose) nicotine (polacrilex) 2 mg gum 4 mg buccal Q2H PRN Nicotine 09/15/23 Cravings 30 days #100 ea omeprazole 20 mg capsule,delayed 20 mg PO DAILY@30 30 days #30 09/15/23 release caps sertraline 50 mg tablet 50 mg PO DAILY 30 days #30 tabs 09/15/23 Allergies Allergy/AdvReac Type Severity Reaction Status Date / Time bee pollen [BEE STINGS] Allergy Severe SWELLING Verified 12/22/23 14:16 Review of Systems 2 Review of Systems: Yes all other systems are reviewed and are negative PMFSH Past Medical History Attestation statement: The following information was validated with the patient. Source: old records reviewed and nursing notes reviewed Medical History Substance abuse EtOH dependence Hypertension Surgical History Hx of endoscopy History of total right hip replacement Family History Family History Father Stomach cancer Social History Social History Household Members: None Housing: Homeless Do you presently have visiting nurse or other home services: No Alcohol intake: current Alcohol intake frequency: 3 or more drinks per day Alcohol type: hard liquor Comment: 1:1 Patient Tobacco Use Status: Current everyday Tobacco user Tobacco use type: Cigarette Cigarettes Per Day: 5 Years Smoked: 20 Smoked in Last 30 Days: Yes e-Cigarette/Vaping Use: Never Used Second Hand Smoke Exposure: Yes Use of substances other than those prescribed or required for medical reasons: No Substance Use Type: Heroin Advance Directives: No service: No Current occupational status: unemployed Sexual orientation: Straight/Heterosexual Physical Exam ED Vital Signs: Vital Signs - 24 hr 12/22/23 14:13 12/22/23 15:21 Temperature 97.3 F Pulse Rate 83 68 Respiratory Rate 16 18 Blood Pressure 111/65 108/66 Pulse Oximetry 100 100 Oxygen Delivery Method Room Air Room Air BMI result Body Mass Index 22.3 vss Appearance: Alert.? Oriented X3.? Unkempt. Smells like alchol. Head: Normocephalic, atraumatic, no step-offs or deformities Eyes: Pupils equal, round and reactive to light.? Neck: Normal inspection.? Neck supple.? CVS: Normal heart rate and rhythm.? Pulses normal.? Respiratory: No respiratory distress.? Breath sounds normal.? Abdomen: Soft and nontender.? Skin: Skin warm and dry.? Normal skin color.? Normal skin turgor.? Extremities: No lower extremity edema.? No calf ttp. Global weakness Neuro: Oriented X 3.? No motor deficit.? No sensory deficit. Course Reevaluation(s) Reevaluation #1: CBC appears to be around patient's baseline with a normocytic anemia. Chemistry with elevated BUN when compared to patient's baseline likely secondary to poor p.o. intake/dehydration. Lipase normal. Coags normal. CT scans pending however I am concerned for head bleed on this patient based off wet read of head Time: 14:58 Reevaluation #2: I called [facility] twice to get stat reason on this patient as he is intoxicated and there may be a head bleed on the left side. Still no results. Sign this patient out to Negro HICKMAN Time: 16:23 Medications Administered Discontinued Medications Generic Name Dose Route Start Last Admin Trade Name Freq PRN Reason Stop Dose Admin Iohexol 100 ml 12/22/23 14:59 12/22/23 14:59 Iohexol 350 Mg/Ml 100 Ml Infus..Btl IV 12/22/23 15:00 85 ml ONCE ONE Administration Medical Decision Making Medical Decision Making [facility] Narrative: [id number] 58-year-old male presents with acute alcohol intoxication unclear if he fell or not. Physical examination patient appears to be intoxicated, is unkempt, smells like alcohol. Global weakness. Regular rate and rhythm. Lungs clear. Abdomen soft nontender nondistended. No acute signs of trauma. Will rule out traumatic injury to head, neck, chest, abdomen pelvis due to unclear history and the fact that patient was found on the ground. Will obtain a GABRIEL to rule out polysubstance abuse. Will obtain ethanol to rule out alcohol intoxication and the degree of intoxication. Will rule out metabolic derangements. Plan at this time labs, imaging. Differential Diagnosis Differential Diagnoses: The differential diagnosis associated with the presentation includes Will rule out traumatic injury to head, neck, chest, abdomen pelvis due to unclear history and the fact that patient was found on the ground. Will obtain a GABRIEL to rule out polysubstance abuse. Will obtain ethanol to rule out alcohol intoxication and the degree of intoxication. Will rule out metabolic derangements. Admission/Observation Consideration of admission/observation: Escalation of care including admission/observation considered Lab Data 12/22/23 14:05 12/22/23 14:05 Labs: Lab Results 12/22/23 12/22/23 Range/Units 14:05 15:35 WBC 8.7 (4.8-10.8) X10*3/uL RBC 4.68 D (4.60-5.80) X10*6/uL Hgb 12.8 L D (14.0-18.0) g/dl Hct 39.2 L D (42.0-52.0) % MCV 83.8 (80.0-98.0) fL MCH 27.4 (27.0-33.0) pg MCHC 32.7 (31.0-36.0) g/dl RDW 15.3 (11.0-16.0) % Plt Count 286 D (160-400) X10*3/uL MPV 9.7 (9.4-12.4) fL Immature Gran % (Auto) 1.0 H (0.0-0.4) % Neut % (Auto) 61.8 (45-73) % Lymph % (Auto) 30.4 (20-40) % Hernando % (Auto) 5.1 (2-11) % Eos % (Auto) 0.7 (0-4) % Baso % (Auto) 1.0 (0-2) % Lymph # (Auto) 2.7 (1.2-4.9) X10*3/uL Hernando # (Auto) 0.5 (0.1-1.2) X10*3/uL Eos # (Auto) 0.1 (0.0-0.4) X10*3/uL Baso # (Auto) 0.1 (0.0-0.2) X10*3/uL Abs Immat Gran (auto) 0.09 H (0.00-0.03) X10*3/uL Absolute Neuts (auto) 5.4 (2.0-8.3) x10*3/uL Absolute Nucleated RBC 0.000 (0.0-0.012) X10*3/uL Nucleated RBC % (auto) 0.0 (0.0-0.2) /100WBC PT 12.1 (11.1-13.3) SEC INR 1.0 (0.9-1.1) Sodium 139 (135-145) mmol/L Potassium 3.5 (3.3-5.1) mmol/L Chloride 103 (96-108) mmol/L Carbon Dioxide 27 (22-29) mmol/L Anion Gap 13 (12-20) BUN 17 H (9-16) mg/dL Creatinine 0.84 (0.5-1.4) mg/dL Estim Creat Clear Calc 97.1 Estimated GFR > 60 Random Glucose 95 (60-115) mg/dL Calcium 9.3 (8.4-10.2) mg/dL Magnesium 2.1 (1.6-2.6) mg/dL Total Bilirubin 0.2 (0.0-1.0) mg/dL AST 15 (5-37) U/L ALT 10 (0-40) U/L Alkaline Phosphatase 142 H (39-117) U/L Total Protein 7.6 (6.5-8.0) g/dL Albumin 4.2 (3.5-5.0) g/dL Lipase 58 (8-78) U/L Urine Opiates Screen Not Detected (Not Detect) Ur Buprenorphine Scrn Not Detected (Not Detect) ng/mL Ur Oxycodone Screen Not Detected (Not Detect) ng/mL Urine Methadone Screen Not Detected (Not Detect) ng/mL Urine Fentanyl Screen POSITIVE H (Not Detect) Ur Barbiturates Screen Not Detected (Not Detect) Ur Phencyclidine Scrn Not Detected (Not Detect) Ur Amphetamines Screen Not Detected (Not Detect) U Benzodiazepines Scrn Not Detected (Not Detect) Urine Cocaine Screen Not Detected (Not Detect) U Marijuana (THC) Screen Not Detected (Not Detect) Independent Interpretation I performed an independent interpretation of an: EKG and CT Scan Radiology Impression Discussion of test interpretation with radiology: I have reviewed the radiologist's reading. External Record Review External record reviewed: Inpatient record, Office record, Outpatient record, Prior outpatient labs, Prior outpatient radiology, Primary care record and Outside ED record Chronic Conditions Patient?s care impacted by: Hypertension and Other (opiate use disorder, alcohol abuse, hypertension) Social Determinants Patient?s care significantly limited by Social Determinants of Health including: Alcoholism and drug addiction in family Critical Care Time Critical Care Time Critical Care Time: Yes Total Critical Care Time: 45 Attestation: I attest to this time spent taking care of the patient, obtaining history, physical, reviewing labs, imaging, speaking to my attending, specialist or hospitalist. Discharge Plan Discharge Clinical Impression: Intracranial hemorrhage following injury with concussion, Alcohol use disorder, severe, dependence, Fall Patient Disposition: Xfer Acute Care Hospital Prescriptions: No Action nicotine (polacrilex) 2 mg Gum 4 mg buccal Q2H PRN (Reason: Nicotine Cravings) 30 Days Qty: 100 0RF omeprazole 20 mg Capsule,Delayed Release(Dr/Ec) 20 mg PO DAILY@0630 30 Days Qty: 30 0RF methadone [Methadose] 10 mg/mL Concentrate 45 mg PO DAILY Qty: 0 0RF Rx Instructions: Partial Fill upon patient request. sertraline 50 mg Tablet 50 mg PO DAILY 30 Days Qty: 30 0RF acamprosate 333 mg Tablet,Delayed Release (Dr/Ec) 666 mg PO TID 30 Days Qty: 180 0RF lisinopril 10 mg tablet 10 mg PO DAILY 30 Days Qty: 30 0RF hydroxyzine HCl 25 mg tablet 25 mg PO TID 30 Days Qty: 90 0RF Eliquis 5 mg tablet 5 mg PO BID 30 Days Qty: 60 0RF Ensure Liquid 1 ea PO BID 30 Days Qty: 5688 2RF Print Language: Divehi
[2023-12-22 14:10] LABS: MANUAL DIFF FLAG NO
[2023-12-22 14:12] LABS: Basophils Absolute Auto 0.1 X10*3/uL (0.0-0.2); Eosinophils Absolute Auto 0.1 X10*3/uL (0.0-0.4); Eosinophils Percent Auto 0.7 % (0-4); Hematocrit 39.2 % (42.0-52.0); Hemoglobin 12.8 g/dl (14.0-18.0); Imm Gran Abs Auto 0.09 X10*3/uL (0.00-0.03); Lymphocytes Absolute Auto 2.7 X10*3/uL (1.2-4.9); Lymphocytes Percent Auto 30.4 % (20-40); Mean Corpuscular HGB Conc 32.7 g/dl (31.0-36.0); Mean Corpuscular Hemoglobin 27.4 pg (27.0-33.0); Mean Corpuscular Volume 83.8 fL (80.0-98.0); Mean Platelet Volume 9.7 fL (9.4-12.4); Monocytes Absolute Auto 0.5 X10*3/uL (0.1-1.2); Monocytes Percent Auto 5.1 % (2-11); Neutrophils Absolute Auto 5.4 x10*3/uL (2.0-8.3); Neutrophils Percent Auto 61.8 % (45-73); Platelet Count 286 X10*3/uL (160-400); Red Blood Count 4.68 X10*6/uL (4.60-5.80); Red Cell Distribution Width 15.3 % (11.0-16.0); White Blood Count 8.7 X10*3/uL (4.8-10.8)
[2023-12-22 14:13] VITALS: BP 111/65; PULSE 83; RESP 16; TEMP 36.3; O2SAT 100; BMI 22.3
[2023-12-22 14:17] LABS: Prothrombin Time 12.1 SEC (11.1-13.3)
[2023-12-22 14:29] LABS: Alanine Aminotransferase 10 U/L (0-40); Albumin Level 4.2 g/dL (3.5-5.0); Alkaline Phosphatase 142 U/L (39-117); Anion Gap 13 (12-20); Aspartate Amino Transferase 15 U/L (5-37); Bilirubin Total 0.2 mg/dL (0.0-1.0); Blood Urea Nitrogen 17 mg/dL (9-16); Calcium 9.3 mg/dL (8.4-10.2); Carbon Dioxide 27 mmol/L (22-29); Chloride 103 mmol/L (96-108); Creatinine Clr Calc Pharmacy 97.1; Estimated Glomerular Filt Rate > 60; Glucose Random 95 mg/dL (60-115); Lipase 58 U/L (8-78); Magnesium 2.1 mg/dL (1.6-2.6); Potassium 3.5 mmol/L (3.3-5.1); Sodium 139 mmol/L (135-145); Total Protein 7.6 g/dL (6.5-8.0)
--- OUTSIDE RECORDS SUMMARY | 2023-12-22 14:45 | XMS_ITS | Continuity of Care Document ---
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 Name Role Phone Not on Staff, PCP Primary Care Physician Unavail able Encounter [facility] [place] Date(s): 09/03/23 - 11/13/23 [facility] [address] [place] [id number] Attending Physician: Estela Beckford MD Admitting Physician: Estela Beckford MD Referring Physician: Not on Staff, Referring MD Allergies, Adverse Reactions, Alerts Substance Reaction Severity Status Bee Stings Active Immunizations Given and Recorded Vaccine Date Status Refusal Reason influenza virus vaccine, inactivated 05/15/22 Marcos rded influenza virus vaccine, inactivated 04/15/22 Marcos rded influenza virus vaccine, inactivated 09/10/21 Marcos rded influenza virus vaccine, inactivated 05/10/17 Marcos rded influenza virus vaccine, inactivated 04/27/16 Marcos rded [id number] 12y+ bivalent booster vax 05/15/22 Recorded SARS-CoV-2 mRNA ([id number]) vax 11/19/21 Recorded tetanus/diphtheria/pertussis, acel(Tdap) 08/05/21 Recorded [...] opioid drug. Start Date: 03/12/23 Status: Ordered melatonin 3 mg oral tablet = 6 [...] opioid drug. Start Date: 03/12/23 Status: Ordered omeprazole 40 mg oral enteric coated capsule 1 capsule = 40 mg, By Mouth, Daily, # 30 capsule, 0 Refills, Maintenance, 09/05/23 23:07:00 EST, ECCapsule, [facility], Partial fill upon patient request if the prescription is for a schedule II opioid drug., 183, cm, 09/02/23 3:03:00 EST,... 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 RN Member Role: Primary Care Nurse Name: Kadi Oliver RN Position: [facility] Nurse Member Role: Primary Care Nurse Name: Mary Roberson RN Position: [facility] SN RN Member Role: Primary Care Nurse Name: Geraldine Cox RN Position: [facility] RN Member Role: Primary Care Nurse Name: Kami Sanchez RN Position: [facility] RN Member Role: Primary Care Nurse Name: Daniel Rodriguez RN Position: [facility] RN Member Role: Primary Care Nurse Name: Liz Moreno RN Position: [facility] RN Member Role: Primary Care Nurse Name: Dev De León RN Position: [facility] RN Member Role: Primary Care Nurse Name: Alexa Mitchell LPN Position: [facility] RN Member Role: Primary Care Nurse Name: Mary Arceo RN Position: [facility] RN Member Role: Primary Care Nurse Name: Toyin Cnotreras RN Position: [facility] Onco RN Member Role: Primary Care Nurse Name: Kun Fisher RN Position: [facility] RN Member Role: Primary Care Nurse Name: Not on Staff, PCP Position: [facility] Physician (General Medicine) Member Role: PCP Name: Tierra Juan RN Position: [facility] SN RN Member Role: Primary Care Nurse Name: Veena Arthur RN Position: [facility] RN Member Role: Primary Care Nurse Name: Elizabeth Woodard RN Position: [facility] Outreach Member Role: Primary Care Nurse Name: Ashlyn Kenney Position: [facility] AMB [place] Member Role: Primary Care Nurse Name: Velia Shepherd RN Position: [facility] RN Member Role: Primary Care Nurse Name: Francoise Whaley RN Position: [facility] Hospital Saw Boss Member Role: Primary Care Nurse Name: Elizabeth Chung RN Position: [facility] RN Member Role: Primary Care Nurse Care Team Related Persons Name: OPAL AMBRIZ Address: home [address] [address] Name: QUAN LOMBARDO Address: [address] [place] [address] Name: AMOS LOMBARDO Address: [place] [address]
--- OUTSIDE RECORDS SUMMARY | 2023-12-22 14:46 | XMS_ITS | Continuity of Care Document ---
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 Name Role Phone Navjot BELTRÁN, Maximo Primary Care Physician [phone] [place] [facility] [place]): [place]23[place]23 - 11/30/[address] [address]- Encounter Diagnosis Femur fracture(Final) - 11/27/23 Discharge Disposition: A-Transfer SNF Attending Physician: Travis Gallo MD Admitting Physician: Celestino Macedo DO Referring Physician: Not on Staff, Referring MD Allergies, Adverse Reactions, Alerts Substance Reaction Severity Status Bee Stings Active Immunizations Given and Recorded Vaccine Date Status Refusal Reason influenza virus vaccine, inactivated 05/15/22 Marcos rded influenza virus vaccine, inactivated 04/15/22 Marcos rded influenza virus vaccine, inactivated 09/10/21 Marcos rded influenza virus vaccine, inactivated 05/10/17 Marcos rded influenza virus vaccine, inactivated 04/27/16 Marcos rded [id number] 12y+ bivalent booster vax 05/15/22 Recorded SARS-CoV-2 mRNA ([id number]) vax 11/19/21 Recorded tetanus/diphtheria/pertussis, acel(Tdap) 08/05/21 Recorded tetanus/diphtheria/pertussis, acel(Tdap) 05/10/17 Recorded tetanus/diphtheria/pertussis, acel(Tdap) 09/30/13 Given SARS-CoV-2 (COVID-19) mRNA BNT-162b2 vac 06/19/21 Recorded zoster vaccine, inactivated 06/17/21 Recorded SARS-CoV-2 (COVID-19) Ad26 vaccine 10/22/20 Record ed pneumococcal 23-valent vaccine 04/17/15 Recorded pneumococcal 23-valent vaccine 02/26/11 Given tetanus-diphtheria toxoids (Td) 02/15/09 Recorded Diphth-Tetanus Toxoids Adsorbed(oldterm) 05/17/06 Given Medications Dilaudid 2 mg oral tablet 4 mg, Tablet, By Mouth, Every 4 hours, Patient on methadone, so would anticipate decreased responseto this. Also has had difficulties with medications in the past, and needs to have emphasized that this is for a short duration only, PRN for Pain , M... Start Date: 11/24/23 Stop Date: 12/01/23 Status: Discontinued Dilaudid 2 mg oral tablet = 4 mg, By Mouth, Every 4 hours, PRN Pain , Moderate, # 12 tablet, 0 Refills, Acute 12/03/23 9:59:00 EDT, 11/30/23 9:58:00 EDT, Tablet, Partial fill upon patient request if the prescription is for a schedule II opioid drug. Start Date: 11/30/23 Stop Date: 12/03/23 Status: Ordered Eliquis 5 mg oral tablet 1 tablet = 5 mg, By Mouth, 2 times a day, # 60 tablet, 5 Refills, Maintenance, 11/24/23 13:42:00 EDT, Tablet, Partial fill upon patient request if the prescription is for a schedule II opioid drug. Start Date: 11/24/23 Status: Ordered folic acid 1 mg oral [...] oral tablet 10 mg, Tablet, By Mouth, 11/30/23 9:00:00 EDT Start Date: 11/30/23 Stop Date: 11/30/23 Status: Completed melatonin 3 mg oral tablet = 6 mg, By Mouth, Daily at bedtime, PRN Sleep, 0 Refills, Maintenance, 03/12/23 12:55:00 EDT, Tablet, Partial fill upon patient request if the prescription is for a schedule II opioid drug. Start Date: 03/12/23 Status: Ordered Methadone = 35 mg, By Mouth, Daily, 0 Refills, Maintenance, 11/30/23 9:41:00 EDT, Tablet, Partial fill upon patient request if the prescription is for a schedule II opioid drug. Start Date: 11/30/23 Status: Ordered Multivit Therapeutic/Minerals Tablet 1 tablet, [...] 0 Refills, Maintenance, 09/05/23 23:07:00 EST, ECCapsule, [facility], Partial fill upon patient request if the prescription is for a schedule II opioid drug., 183, cm, 09/02/23 3:03:00 EST,... Start Date: 09/05/23 Status: Ordered pantoprazole 40 mg oral delayed [...] Pulmonary embolus Confirmed Active 1aortic arc aneurysm Procedures Procedure Date Related Diagnosis Body Site Status Treatment of intertrochanter ic, peritrochanteric, or subtrochanteric femoral fracture; with intramedullary implant, with or without interlocking screws and/or cerclage 1 11/24/23 [facility] ed [facility] InterTAN, 10 mm x 125 degrees, 42 cm nail with 100/95 mm integrated lag screw proximally, and single distal interlocking screw. Results Radiology Reports * Exam Date Time Procedure Performing Provider Status 11/24/23 5:36 PM C-Arm < 1 Hour Andrae Pugh; Auth (Ve rified) Notes: (C-Arm < 1 Hour) Reason For Exam: Left Femur FX ORIF RESULT: C-Arm < 1 Hour Femur 2 Views Left, C-Arm < 1 Hour INDICATION: Reason: Left Femur FX ORIF COMPARISONS: 11/23/2023 TECHNIQUE: Fluoroscopy support was provided. There was no radiologist in attendance. FLUOROSCOPY TIME: 1 minute 23.4 seconds EXPOSURE: 19.01 mGy (reference air kerma) TECHNOLOGIST TIME: 45 minutes FINDINGS: 7 images were submitted showing ORIF of the left femur fracture. Please refer to operative note forfull details. IMPRESSION: See above. WSN: [id number] Ordering Physician: Lyle Jack Dictated By: David Lowry MD Dictated Date/Time: 11/25/23 8:56 am Reviewed By: David Lowry MD Signed By: David Lowry MD Signed Date/Time: 11/25/23 8:56 am Transcribed By: MARC Transcribed Date/Time: 11/25/23 8:56 am * Exam Date Time Procedure Performing Provider Status 11/24/23 5:36 PM XR Femur 2 Views Left Andrae Pugh; M odified Notes: (XR Femur 2 Views Left) Reason For Exam: Left Femur FX ORIF RESULT: Femur 2 Views Left Femur 2 Views Left, C-Arm < 1 Hour INDICATION: Reason: Left Femur FX ORIF COMPARISONS: 11/23/2023 TECHNIQUE: Fluoroscopy support was provided. There was no radiologist in attendance. FLUOROSCOPY TIME: 1 minute 23.4 seconds EXPOSURE: 19.01 mGy (reference air kerma) TECHNOLOGIST TIME: 45 minutes FINDINGS: 7 images were submitted showing ORIF of the left femur fracture. Please refer to operative note forfull details. IMPRESSION: See above. WSN: [id number] Ordering Physician: Lyle Jack Dictated By: David Lowry MD Dictated Date/Time: 11/25/23 8:56 am Reviewed By: David Lowry MD Signed By: David Lowry MD Signed Date/Time: 11/25/23 8:56 am Transcribed By: MARC Transcribed Date/Time: 11/25/23 8:56 am * Exam Date Time Procedure Performing Provider Status 11/23/23 10:34 PM XR Femur 2 Views Left Dom Bentley ut (Verified) Notes: (XR Femur 2 Views Left) Reason For Exam: Pain RESULT: Femur 2 Views Left Femur 2 Views Left, 2 views Hx of Present Illness: ? hip dislocation; Reason: Pain; Clinical Question(s): Fracture COMPARISON: None. FINDINGS: There is a nondisplaced intertrochanteric fracture. Hip joint space is well preserved. No dislocation. Partially imaged lumbar spine fusion hardware. There are atherosclerotic calcifications. IMPRESSION: Nondisplaced intertrochanteric fracture of the left femur. The impression above was relayed to Marlen Reyes MD by Dr. Gerald Vega via [employer] with acknowledgement pending on 11/23/2023 at 10:40 PM. WSN: [id number] Ordering Physician: Emanuel Duarte Dictated By: Gerald Vega MD Dictated Date/Time: 11/23/23 10:41 p Reviewed By: Gerald Vega MD Signed By: Gerald Vega MD Signed Date/Time: 11/23/23 10:41 pm Transcribed By: MARC Transcribed Date/Time: 11/23/23 10:39 pm * Exam Date Time Procedure Performing Provider Status 11/23/23 6:41 PM Knee 1 or 2 Views Left Horn , Isabel ; Auth (Verified) Notes: (Knee 1 or 2 Views Left) Reason For Exam: Trauma RESULT: Knee 1 or 2 Views Left Knee 1 or 2 Views Left, 2 views Hx of Present Illness: ? hip dislocation; Reason: Trauma; Clinical Question(s): Fracture COMPARISON: 12/17/2022 FINDINGS: No acute fracture or dislocation. Unchanged corticated bone fragment adjacent to the lateral tibialplateau. Mild tricompartmental degenerative osteoarthritis but no evidence of osteochondral defect or intra-articular loose body. Small joint effusion. No lipohemarthrosis. IMPRESSION: No evidence of acute osseous abnormality. WSN: [id number] Ordering Physician: Marlen Reyes Dictated By: David Lowry MD Dictated Date/Time: 11/23/23 6:46 pm Reviewed By: David Lowry MD Signed By: David Lowry MD Signed Date/Time: 11/23/23 6:46 pm Transcribed By: MARC Transcribed Date/Time: 11/23/23 6:45 pm * Exam Date Time Procedure Performing Provider Status 11/23/23 6:41 PM XR Hip w/Pelvis 2-3 View Left Xavier , Katina shahid; Auth (Verified) Notes: (XR Hip w/Pelvis 2-3 View Left) Reason For Exam: Trauma RESULT: XR Hip w/Pelvis 2-3 View Left XR Hip w/Pelvis 2-3 View Left Hx of Present Illness: ? hip dislocation; Reason: Trauma; Clinical Question(s): Fracture COMPARISON: 11/14/2016 FINDINGS: Nondisplaced left femur intertrochanteric fracture. Status post right hip arthroplasty. Multilevel fusion hardware in the visualized lower lumbar spine. Normal soft tissues. IMPRESSION: Nondisplaced left femur intertrochanteric fracture. Results were conveyed by [email or web address] by Dr. Lowry to Marlen Reyes DO on 11/23/2023 at 6:45 PM with understanding acknowledged. WSN: [id number] Ordering Physician: Marlen Reyes Dictated By: David Lowry MD Dictated Date/Time: 11/23/23 6:46 pm Reviewed By: David Lowry MD Signed By: David Lowry MD Signed Date/Time: 11/23/23 6:46 pm Transcribed By: MARC Transcribed Date/Time: 11/23/23 6:45 pm Vital Signs Most recent to oldest [Reference Range]: 1 2 3 Height 180.34 cm (11/30/23 6:55 AM) 180.34 cm (11/30/23 4:48 AM) 180.34 cm (11/29/23 6:50 PM) Weight 69 kg (11/24/23 3:49 PM) 69 kg (11/23/23 11:38 PM) Oxygen Saturation [94-100 %] 97 % (11/30/23 6:55 AM) 97 % (11/30/23 4:48 AM) 98 % (11/29/23 6:50 PM) Pulse Rate [55-90 bpm] 91 bpm *H* (11/30/23 6:55 AM) 74 bpm (11/30/23 4:48 AM) 81 bpm (11/29/23 6:50 PM) Body Mass Index [18.5-24.99 kg/m2] 21.22 kg/m2 (11/24/23 3:49 PM) 21.22 kg/m2 (11/23/23 11:38 PM) Blood Pressure [90-138/55-84 mm Hg] 115/78mm Hg (11/30/23 7:01 AM) 115/78mm Hg (11/30/23 6:55 AM) 113/74mm Hg (11/30/23 4:48 AM) Respiratory Rate [16-30 br/min] 18 br/min (11/30/23 1:59 PM) 17 br/min (11/30/23 10:37 AM) 18 br/min (11/30/23 9:37 AM) Temperature [96.8-100.4 DegF] 98.0 DegF (11/30/23 6:55 AM) 98.2 DegF (11/30/23 4:48 AM) 98.2 DegF (11/29/23 6:50 PM) Liters per Minute 2 L/min (11/24/23 7:30 PM) 2 L/min (11/24/23 7:15 PM) 2 L/min (11/24/23 6:30 PM) Mode of Delivery (Oxygen) Room air (11/30/23 6:55 AM) Room air (11/30/23 4:48 AM) Room air (11/29/23 6:50 PM) Blood pressure sites Arm, right (11/30/23 6:55 AM) Arm, right (11/29/23 3:25 PM) Arm, left (11/29/23 6:47 AM) Temperature Route Oral (11/30/23 6:55 AM) Oral (11/30/23 4:48 AM) Oral (11/29/23 6:50 PM) Dry Weight 69 kg (11/23/23 11:38 PM) Social History Social History Type Response Smoking Status Current every day sm angie; Type: Cigarettes; Other: 6 cigarettes per day; entered on: 09/27/15 Sex History and physical note * Loy Garcia MD, Brice Fay: PERFORM, MODIFY Event Display: History and Physical Hospital Authored Date: [id number] Patient: ??MELISSA PORTER ? Age:??58 Years?Sex:??Male?:??1965?? Chief Complaint/Reason for Consultation Patient coming from detox [facility] after tripping and hitting his leg. patient heard a pop. this is a common accurance for this pt. pt complains of 10/10 pain. no loc and no head strike. patient had hip replacement on right side. complains of left s History of Present Illness ?? 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 He has denied nay proceeding symptoms like chest pain or??SOB, no dizziness or light headiness, no??LOC reported, patient denied any other pain , he has no recent fever, chills or shivering,??no recent illness, denied any abdominal pain N/V or diarrhea , he has no urinary symptoms or skin rashes.? At E patient was??HD stable ,afebrile, hemogram and??chemistry unremarkable except for K 5.4, Troponin negative , XR with left intertrochanteric??femur fracture,??orthopedic consulted and planningfor OR likely later today?? Review of Systems General: Patient is awake, denied any fever, chills or shivering Eye: No redness, no jaundice, no pain or discharge ENT: no nasal discharge or rhinorrhea Cardiovascular: no chest pain, no palpitation Pulmonary: No dyspnea, no wheezing, no cough or??sputum GI: No abdominal pain, no nausea, no vomiting, no constipation or diarrhea : No dysuria or blood with the urine, making good urine Extremities:no edema or swelling, no skin discoloration MSK left??hip??pain??with decreased??ROM?? Skin: No rashes or itching , no jaundice Neuro: Awake, alert, no focal weakness, no numbness or tingling Psych: No anxiety, denied any mood changes??. Objective Measurements?? Height: 180.34 cm (11/24/23) Weight: 69 kg (11/23/23) Dry Weight: 69 kg (11/23/23) Body Mass Index: 21.22 kg/m2 (11/23/23) ? Vital Signs?? Temperature: 97.9 DegF (11/24/23 06:34:00) Temperature Route: Oral (11/24/23 06:34:00) Pulse Rate:??54 bpm??Low (11/24/23 06:34:00) Respiratory Rate: 18 br/min (11/24/23 11:32:00) Systolic Blood Pressure: 117 mm Hg (11/24/23 06:34:00) Diastolic Blood Pressure: 69 mm Hg (11/24/23 06:34:00) Blood pressure sites: Arm, left (11/24/23 04:24:00) Mean Arterial Pressure: 85 mm Hg (11/24/23 06:34:00) Pulse Pressure: 48 mm Hg (11/24/23 06:34:00) Oxygen Saturation: 98 % (11/24/23 06:34:00) Mode of Delivery (Oxygen): Room air (11/24/23 06:34:00) Early Warning Score: 2 (11/24/23 11:32:56) ? Intake/Output? 11/22 22:43 11/23 07:00 11/22 07:00 11/21 07:00 11/20 07:00 ?? 11/23 13:34 11/23 13:34 11/23 06:59 11/22 06:59 11/21 06:59 Intake ?120 ?0 ?120 ?0 ?0 Output ?600 ?450 ?150 ?0 ?0 Net Total ? -480 ? -450 ?-30 ?0 ?0 ? Physical Exam General: Awake, not in??distress Head and neck: Atraumatic, no neck swelling Eye: no injection or jaundice, EOMI. Cardiac: RRR, no murmurs, gallops or rubs, no S3 or S4. Pulmonary: Normal breathing sounds bilaterally with good air entry with??no wheezing or??rhonchi Abdominal: No tenderness or rebound tenderness, normal BS, no HSM Skin: No rashes, jaundice or schritching orozco Extremities: No edema, no swelling or varicose veins MSK decreased ROM of left hip?? Neuro: awake, alert oriented X3, no focal weakness. 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 Fall (W19.XXXA):??- Opioid dependence (F11.20):??- Alcohol abuse (F10.10):??- Femur fracture (S72.90XA):??-- presented after mechanical fall with left intertrochanteric femur fracture At E patient was??HD stable ,afebrile, hemogram and??chemistry unremarkable except for K 5.4 Troponin negative?? XR with left intertrochanteric??femur fracture,??orthopedic consulted and planning for OR likely later today?? Patient has no cardiac or respiratory symptoms, no on any withdrawal Perioperative eval with revised cardiac?? risk is one??point for previous??CHF, with 6% 30 days risk of , MD or cardiac arrest ? Tele pain for breakthrough pain and nausea control methadone 35 mg daily Preoperative DVT ---he is on Eliquis for PE can be resumed after surgery monitor for any withdrawal from alcohol however this shall be far as he came from detox rehab PT eval after surgery Orthopedic team on board for intervention likely later today to keep patient NPO ?? Recurrent Pulmonary embolism Resume Eliquis 5 mg BID after the surgery ?? 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 Code Status:??Full?? DVT: ---he is on Eliquis for PE can be resumed after surgery Dispo: anticipate the patient needs 3-4 midnights ?? Histories Allergies Allergies ?(Active and Proposed Allergies Only) Bee Stings? (Severity: Unknown severity, Onset: Unknown) ? Past Medical History/Problem List Active Problems(14) Aortic aneurysm Cardiomyopathy - EF 40% on [...] History Father: Hypertension ? Medications Home Medications apixaban?5?Milligram?By Mouth?2 times a day BusPIRone [...] With Minerals (Multivit Therapeutic/Minerals Tablet)?1?tab(s)?By Mouth?Daily Nicotine?21?Milligram?Topically?Daily Omeprazole (omeprazole 40 mg oral enteric coated capsule)?1?capsule?40?Milligram?By Mouth?Daily Ondansetron (ondansetron 4 mg oral tablet, disintegrating)?4?Milligram?By Mouth?Every 6hours?as needed?Nausea & Vomiting Pantoprazole (pantoprazole 40 mg oral delayed release tablet)?1?tab(s)?40?Milligram?By Mouth?2 times a day Pyridoxine (Pyridoxine Tablet)?50?Milligram?By Mouth?Daily ? Results Recent Labs BLOOD BANK Blood Type B Positive ()?? 11/23/2023 21:35 Antibody Screen Negative ()?? 11/23/2023 21:35 ?? BLOOD COUNT & DIFF WBC 5.4 k/mm3 ()?? 11/24/2023 09:35 RBC 3.78 m/mm3 (Low)?? 11/24/2023 09:35 Hgb 10.3 Gm/dL (Low)?? 11/24/2023 09:35 Hct 32.2 % (Low)?? 11/24/2023 09:35 MCV 85.2 femtoliters ()?? 11/24/2023 09:35 MCH 27.2 pg ()?? 11/24/2023 09:35 MCHC 32.0 g/dL (Low)?? 11/24/2023 09:35 Platelet Count 200 k/mm3 ()?? 11/24/2023 09:35 RDW-SD 50.3 femtoliters (High)?? 11/24/2023 09:35 MPV 9.7 femtoliters ()?? 11/24/2023 09:35 Nucleated RBC (Automated) 0.0 #/100 WBC'S ()?? 11/24/2023 09:35 Abs. NRBC 0.0 k/mm3 ()?? 11/24/2023 09:35 Abs. Neut 4.2 k/mm3 ()?? 11/23/2023 22:46 Abs. Lymph 2.1 k/mm3 ()?? 11/23/2023 22:46 Abs. Bacon 0.6 k/mm3 ()?? 11/23/2023 22:46 Abs. Eo 0.2 k/mm3 ()?? 11/23/2023 22:46 Abs. Baso 0.1 k/mm3 ()?? 11/23/2023 22:46 Neut % 58.9 % ()?? 11/23/2023 22:46 Lymph % 29.3 % ()?? 11/23/2023 22:46 Bacon % 8.6 % ()?? 11/23/2023 22:46 Eos % 2.1 % ()?? 11/23/2023 22:46 Baso % 0.7 % ()?? 11/23/2023 22:46 Imm Gran 0.4 % ()?? 11/23/2023 22:46 Abs. Imm Gran 0.0 k/mm3 ()?? 11/23/2023 22:46 ?? CARDIAC High Sensitivity Troponin (HSTnT) 14 ng/L ()?? 11/24/2023 09:35 ?? CHEM GENERAL Sodium 137 mmol/L ()?? 11/24/2023 09:35 Potassium 5.4 mmol/L (High)?? 11/24/2023 09:35 Chloride 99 mmol/L ()?? 11/24/2023 09:35 Bicarbonate Level 28 mmol/L ()?? 11/24/2023 09:35 Anion Gap 10 ()?? 11/24/2023 09:35 Glucose Level 91 mg/dL ()?? 11/24/2023 09:35 BUN 22 mg/dL (High)?? 11/24/2023 09:35 Creatinine-Blood 0.90 mg/dL ()?? 11/24/2023 09:35 Estimated GFR Creatinine 98 ML/MIN/1.73 M2 ()?? 11/24/2023 09:35 Calcium 9.4 mg/dL ()?? 11/24/2023 09:35 Magnesium 2.0 mg/dL ()?? 11/24/2023 09:35 Protein, Total 6.4 Gm/dL ()?? 11/24/2023 09:35 Albumin 4.0 Gm/dL ()?? 11/24/2023 09:35 Alkaline Phosphatase 81 units/L ()?? 11/24/2023 09:35 AST (SGOT) 19 units/L ()?? 11/24/2023 09:35 ALT (SGPT) 8 units/L ()?? 11/24/2023 09:35 Bilirubin, Total 0.6 mg/dL ()?? 11/24/2023 09:35 Bilirubin, Direct <0.2 mg/dL ()?? 11/24/2023 09:35 Bilirubin, Indirect Direct bilirubin is less than the measureable limit. Therefore, indirect mg/dL ()?? 11/24/2023 09:35 Lactate 1.1 mmol/L ()?? 11/24/2023 09:35 ?? COAG INR 1.0 ()?? 11/24/2023 09:35 Protime (PT) 10.8 seconds ()?? 11/24/2023 09:35 ?? URINE OTHER Est Creatinine Clearance 86.25 mL/min ()?? 11/24/2023 10:20 ? Abnormal Labs ?? BLOOD BANK Antibody Screen?Negative ()?11/23/2023 21:35 Blood Type?B Positive ()?11/23/2023 21:35 ?? BLOOD COUNT & DIFF Abs. Imm Gran?0.0 k/mm3 ()?11/23/2023 22:46 Abs. NRBC?0.0 k/mm3 ()?11/24/2023 09:35 Hct?32.2 % (Low)?11/24/2023 09:35 Hgb?10.3 Gm/dL (Low)?11/24/2023 09:35 Imm Gran?0.4 % ()?11/23/2023 22:46 MCHC?32.0 g/dL (Low)?11/24/2023 09:35 Nucleated RBC (Automated)?0.0 #/100 WBC'S ()?11/24/2023 09:35 RBC?3.78 m/mm3 (Low)?11/24/2023 09:35 RDW-SD?50.3 femtoliters (High)?11/24/2023 09:35 ?? CARDIAC High Sensitivity Troponin (HSTnT)?14 ng/L () ?11/24/2023 09:35 ?? CHEM GENERAL BUN?22 mg/dL (High)?11/24/2023 09:35 Estimated GFR Creatinine?98 ML/MIN/1.73 M2 ()?11/24/2023 09:35 Potassium?5.4 mmol/L (High)?11/24/2023 09:35 ?? Note: Critical results are displayed in red. ? Hospital Progress note * Cleo BELTRÁN, Travis Palmer: PERFORM Event Display: Progress Note Hospital Authored Date: Patient: ??MELISSA PORTER ? Age:??58 Years?Sex:??Male?:??1965?? To Whoever it may concern. ?? Melissa Hairston 1965 admitted to [facility] for his illness. His last dose ofmethadone was??35 mg on 11/30/2023. Please reach us if you have any questions. ?? Thank you. ?? Travis Gallo * Aziza Preston RN: VERIFY, PERFORM, SIGN Event Display: Progress Note Hospital Authored Date: Patient: MELISSA PORTER Age: 58 years Sex: Male : 1965 Associated Diagnoses: None Author: Aziza Preston RN Findings Problem Related to Alteration in Musculoskeletal : Alteration in Musculoskeletal Func/new 11/30/2023 1:00 EDT Alteration in Musculoskeletal Related to Fracture, Mobility, Orthopedic Procedure, Other: LEFT HIP ORIF 11/23 DR JACK Goals & Outcomes, Musculoskeletal Affected extremity will maintain color/motion/sensation, Pt able to perform ADL's to best of ability, Pt demonstrates precautions/exercise/ transfers per protocol, Pt will ambulate safely with assistive device, Pt will be free from complications of immobility, Pt will demonstrate ability to participate in ADL's, Pt will report acceptable level of comfort/painrelief Interventions, Musculoskeletal Monitor patients ambulation status, monitor Color/Motion/Sensation, Assist with repositioning, Encourage deep breathing & coughing exercises, Notify MD immediately if tissue perfusion deteriorates, Obtain assistive devices as needed, Teach & Encourage use of Incentive spirometer, Teach Pt/caregiver on ADL's & adaptive equipment, Teach Pt/caregiver on exercises, Teach pt/caregiver on use of pain scale, Teach Pt/caregiver complications of immobility, Teach Pt/caregiver techniques to increase mobility, Teach Pt/caregiver on safety precautions BH Goals/Interventions, Musculoskeletal Yes Musculoskeletal, Problem Start 11/25/2023 2:31 Reviewed Plan with, Musculoskeletal Patient Patient Progression, Musculoskeletal Pt progressing according to plan . Nursing Data Vital Signs : VITAL SIGNS SECTION 11/29/2023 18:50 EDT Temperature 98.2 DegF Temperature Route Oral Pulse Rate 81 bpm Respiratory Rate 18 br/min Systolic Blood Pressure 105 mm Hg Diastolic Blood Pressure 76 mm Hg Mean Arterial Pressure 86 mm Hg Pulse Pressure 29 mm Hg Oxygen Saturation 98 % Mode of Delivery (Oxygen) Room air . Narrative/Incidental 58yr M s/p L IM femur nailing 11/[address] Jack. VSS, A+O x3. Lung sounds clear, denies SOB. Encouraged use of incentive spirometer, x10 per hour, demonstrated proper usage. +BS4, abdomen soft, nontender, denies N/V. Last BM 11/26. Tolerating regular diet. Voiding CYU. +CMS, +PP, strong dorsi plantar flexion. Able to wiggle toes. L hip dsd CDI. L hip lizzeth intact. OOB 2 assist w walker. Pain 8/10 w relief from Tylenol 650mg, Dilaudid 4mg. Continue DVT prophylaxis w c-boots, Eliquis. Frequent safety checks, bed in lowest position, call michel within reach. PLans for d/c 11/29. . Evaluation P- Alteration in Musculoskeletal I- See above interventions E- s/p L IM femur nailing 11/[address] Jack. +CMS, +PP, strong dorsi plantar flexion. Able to wiggle toes. L hip dsd CDI. L hip lizzeth intact. OOB 2 assist w walker.. Discharge Information Case Management Discharge Plan : Case Management Discharge Plan Data 11/29/2023 16:04 EDT Discharge Level of Care at Discharge shelter facility Discharge Nursing Homes/Rehab Facilities [facility] Discharge Transportation Arranged Am Med Response [address] [place] [id number] [phone] Discharge Arranged Transport Date/Time 11/30/2023 11:00 Mode of Transportation Arranged Chair [facility] Pie Filler #1 Intake Service Categories #1 Physical Therapy, Detention Service Comments #1 You are being discharged to rehab at [facility] in [place] Name of Person Notified of Transfer Patient Rehabilitation Discharge : Rehab Discharge Index 11/29/2023 11:16 EDT Walker: distance >50 11/28/2023 12:26 EDT Walker: distance >50 11/26/2023 8:56 EDT Walker: distance 20-50 11/25/2023 11:04 EDT Comments on treatment indicated adls funclt mob safety pt ed Full chart review completed Yes Hospital course 58 yo M sp L femur fx now sp L intertan by on 11/24/23. 11/25/2023 10:51 EDT Comments on treatment indicated 58 M coming from detox center after trip and fall, now s/p L ORIF. WBAT. Pt has decreased strength,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 Dose New Hydromorphone (Dilaudid 2 mg oral tablet) 4 Milligram Oral Every 4 hours as needed for Pain , Moderate Printed Prescription as needed New Methadone 35 Milligram Oral Daily 11/30 Changed apixaban (Eliquis 5 mg oral tablet) 1 tab(s) Oral Twice a day 11/29 Unchanged Folic Acid (folic acid 1 mg oral tablet) 1 Milligram Oral Daily 11/30 Unchanged Lisinopril (lisinopril 10 mg oral tablet) 10 Milligram Oral Daily 11/30 Unchanged Melatonin (melatonin 3 mg oral tablet) 6 Milligram Oral Daily at Bedtime as needed for Sleep as needed Unchanged Multivitamin With Minerals (Multivit Therapeutic/ Minerals Tablet) 1 tab(s) Oral Daily 11/30 Unchanged Nicotine 21 Milligram Topically Daily 11/30 Unchanged Omeprazole (omeprazole 40 mg oral enteric coated capsule) 1 capsule Oral Daily 11/30 Unchanged Pantoprazole (pantoprazole 40 mg oral delayed release tablet) 1 tab(s) Oral Twice a day 911/29 Unchanged Pyridoxine (Pyridoxine Tablet) 50 Milligram Oral Daily 11/30 Prescription Given During Visit Hydromorphone (Dilaudid 2 mg oral tablet) - 4 mg, By Mouth, Every 4 hours, # 12 tablet, 0 Refills?? Laboratory Results Below is a partial list of the most recent Laboratory test results done prior to this discharge. You may have had other tests and procedures not included in this list. Please discuss all test resultswith your provider. Est Creatinine Clearance - 100.81 mL/min (11/26/2023) Basic Metabolic Panel (11/26/2023) ???Sodium - 137 mmol/L???Potassium - 4.3 mmol/L???Chloride - 99 mmol/L???Bicarbonate Level - 25 mmol/L???Anion Gap - 13???Glucose Level - 127 mg/dL???BUN - 11 mg/dL???Creatinine-Blood - 0.77 mg/dL???Estimated GFR Creatinine - 103 ML/MIN/1.73 M2???Calcium - 8.7 mg/dL CBC (11/26/2023) ???WBC - 6.3 k/mm3???RBC - 3.70 m/mm3???Hgb - 10.0 Gm/dL???Hct - 31.5 %???MCV - 85.1 femtoliters???MCH - 27.0 pg???MCHC - 31.7 g/dL???Platelet Count - 180 k/mm3???RDW-SD - 50.1 femtoliters???MPV - 10.3 femtoliters???Nucleated RBC (Automated) - 0.0 #/100 WBC'S???Abs. NRBC - 0.0 k/mm3 CBC w/ Differential (11/23/2023) ???WBC - 7.1 k/mm3???RBC - 3.59 m/mm3???Hgb - 9.9 Gm/dL???Hct - 31.3 %???MCV - 87.2 femtoliters???MCH - 27.6 pg???MCHC - 31.6 g/dL???Platelet Count - 205 k/mm3???RDW-SD - 50.4 femtoliters???MPV - 9.6femtoliters???Nucleated RBC (Automated) - 0.0 #/100 WBC'S???Abs. NRBC - 0.0 k/mm3???Abs. Neut - 4.2 k/mm3???Abs. Lymph - 2.1 k/mm3???Abs. Bacon - 0.6 k/mm3???Abs. Eo - 0.2 k/mm3???Abs. Baso - 0.1 k/mm3???Neut % - 58.9 %???Lymph % - 29.3 %???Bacon % - 8.6 %???Eos % - 2.1 %???Baso % - 0.7 %???Imm Gran - 0.4 %???Abs. Imm Gran - 0.0 k/mm3 Lactate Level (11/24/2023) ???Lactate - 1.1 mmol/L Liver Function Panel (11/24/2023) ???Protein, Total - 6.4 Gm/dL???Albumin - 4.0 Gm/dL???Alkaline Phosphatase - 81 units/L???AST (SGOT) - 19 units/L? ?ALT (SGPT) - 8 units/L? ?Bilirubin, Total - 0.6 mg/dL? ?Bilirubin, Direct - <0.2mg/dL???Bilirubin, Indirect - Direct bilirubin is less than the measureable limit. Therefore, indirect Mg Level (11/26/2023) ???Magnesium - 1.7 mg/dL Phosphorus Level (11/25/2023) ???Phosphorus - 2.8 mg/dL PT (INR) (11/24/2023) ???INR - 1.0???Protime (PT) - 10.8 seconds Troponin T, High Sensitivity (11/24/2023) ???High Sensitivity Troponin (HSTnT) - 14 ng/L Type and Screen (11/23/2023) ???Blood Type - B Positive???Antibody Screen - [...] Belongings I fully understand and agree that [facility] accepts no responsibility for all my [...] patient Date for Pt to Sign Valuables/Belongings: 11/30/23 06:55:00 ?? Other Discharge Information ? Case Management Discharge Plan?? Discharge Plan?? Discharge Agency Information?? Discharge Level of Care at Discharge: shelter facility Agency Pie Filler #1: Intake Discharge Transportation Arranged: [facility] Remi Epperson [facility] [phone] Service Categories #1: Physical Therapy, Detention Mode of Transportation Arranged: Chair Jorge Service Comments #1: You are being discharged to rehab at [facility] Discharge Arranged Transport Date/Time: 11/30/23 11:00:00 Name of Person Notified of Transfer: Patient Discharge Nursing Homes/Rehab Facilities: [facility] ? Pulmonary Rehab Status?? Pulmonary Rehab Discharge [...] are strongly encouraged to quit. Please call [facility] [employer] Link at [phone] or [phone] ([phone]) or log in to [email or web address] for referrals to smoking cessation programs. ?? 891 Suicide & Crisis Lifeline is available 01/02 if you or someone you know needs to find a reason to keep living. By calling 546 you'll be connected to a skilled, trained counselor at a crisis center in your area. INPATIENT DISCHARGE INSTRUCTIONS SIGNATURE PAGE NEPTALIMELISSA WELLS Location:[facility] Registration Date and Time:11/23/2023 22:43 EDT Primary Care Physician: Navjot BELTRÁN , Maximo, Attending Physician: Cleo BELTRÁN, Travis Palmer, MELISSA NIEVES, have received the above patient education materials/instructions and have verbalized understanding. If ambulance or transport services are being used I further acknowledge being given a choice of service. ?? If you need to contact me, please call me at this number: . Patient/Sign Fabricator Name: Patient/Sign Fabricator Signature: Relationship to Patient: Witness Name/Signature: Date: * Basia Whaley RN: VERIFY, PERFORM, SIGN Event Display: Case Management Discharge Plan Authored Date: [id number] Patient: MELISSA PORTER Age: 58 years Sex: Male : 1965 Associated Diagnoses: None Author: Basia Whaley RN Discharge Plan Case Management Discharge Plan : Case Management Discharge Plan Data 11/29/2023 16:04 EDT Discharge Level of Care at Discharge shelter facility Discharge Nursing Homes/Rehab Facilities [facility] Discharge Transportation Arranged [facility] [phone] Discharge Arranged Transport Date/Time 11/30/2023 11:00 Mode of Transportation Arranged Chair Van Agency Pie Filler #1 Intake Service Categories #1 Physical Therapy, Detention Service Comments #1 You are being discharged to rehab at [facility] in [place] Name of Person Notified of Transfer Patient Patient Care team information Care Team Personnel Name: Unique Dubon RN Position: [facility] RN Member Role: Primary Care Nurse Name: Maximo Morfin MD Position: [facility] Outreach Member Role: PCP Address: Address: [address] [place] [address] Name: Kadi Oliver RN Position: [facility] AMB Nurse Member Role: Primary Care Nurse Name: Mary Roberson RN Position: [facility] SN RN Member Role: Primary Care Nurse Name: Geraldine Cox RN Position: [facility] RN Member Role: Primary Care Nurse Name: Carlos Linder RN Position: [facility] RN Member Role: Primary Care Nurse Name: Kami Sanchez RN Position: [facility] RN Member Role: Primary Care Nurse Name: Daniel Rodriguez RN Position: [facility] RN Member Role: Primary Care Nurse Name: Liz Moreno RN Position: [facility] RN Member Role: Primary Care Nurse Name: Dev De León RN Position: [facility] RN Member Role: Primary Care Nurse Name: Alexa Mitchell LPN Position: [facility] RN Member Role: Primary Care Nurse Name: Mary Arceo RN Position: [facility] RN Member Role: Primary Care Nurse Name: Caron Berrios RN Position: [facility] RN Member Role: Primary Care Nurse Name: Toyin Contreras RN Position: [facility] Onco RN Member Role: Primary Care Nurse Name: Dileep Cabrera RN Position: [facility] RN Member Role: Primary Care Nurse Name: Kun Fisher RN Position: [facility] RN Member Role: Primary Care Nurse Name: Tierra Juan RN Position: [facility] SN RN Member Role: Primary Care Nurse Name: Veena Arthur RN Position: [facility] RN Member Role: Primary Care Nurse Name: Elizabeth Woodard RN Position: [facility] Outreach Member Role: Primary Care Nurse Name: Ashlyn Kenney Position: [facility] AMB [place] Member Role: Primary Care Nurse Name: Shanna Yan RN Position: [facility] RN Member Role: Primary Care Nurse Name: Velia Shepherd RN Position: [facility] RN Member Role: Primary Care Nurse Name: Francoise Whaley RN Position: [facility] Hospital Churn Operator Member Role: Primary Care Nurse Name: Elizabeth Chung RN Position: [facility] RN Member Role: Primary Care Nurse Care Team Related Persons Name: KATINAOPAL Address: home [address] [address] Name: QUAN PORTER Address: home [address] [place] [address] Name: AMOS PORTER Address: [place] [address]
--- OUTSIDE RECORDS SUMMARY | 2023-12-22 14:46 | XMS_ITS | Continuity of Care Document ---
Author Organization [facility] ter Address [address] [place] [id number]- Care Team Providers Care Tank Stave Assembler Name Role Phone Not on Staff, PCP Primary Care Physician Unavail able Encounter [facility] Date(s): 08/31/23 - 09/01/[address] [address]- Encounter Diagnosis Alcohol intoxication(Final) - 09/01/23 Discharge Disposition: A-D/C Home Attending Physician: Eleuterio Middleton MD Admitting Physician: Eleuterio Middleton MD Referring Physician: Not on Staff, Referring MD Allergies, Adverse Reactions, Alerts Substance Reaction Severity Status Bee Stings Active Immunizations Given and Recorded Vaccine Date Status Refusal Reason influenza virus vaccine, inactivated 05/15/22 Marcos rded influenza virus vaccine, inactivated 04/15/22 Marcos rded influenza virus vaccine, inactivated 09/10/21 Marcos rded influenza virus vaccine, inactivated 05/10/17 Marcos rded influenza virus vaccine, inactivated 04/27/16 Marcos rded [id number] 12y+ bivalent booster vax 05/15/22 Recorded SARS-CoV-2 mRNA (nawfjje-ibqg-adgil) vax 11/19/21 Recorded tetanus/diphtheria/pertussis, acel(Tdap) 08/05/21 Recorded [...] 1 2 3 Oxygen Saturation [94-100 %] 97 % (09/01/23 6:44 AM) 94 % (09/01/23 3:59 AM) 94 % (09/01/23 1:07 AM) Pulse Rate [55-90 bpm] 87 bpm (09/01/23 6:44 AM) 93 bpm *H* (09/01/23 3:59 AM) 90 bpm (09/01/23 1:07 AM) Blood Pressure [90-138/55-84 mm Hg] 110/53mm Hg (09/01/23 6:44 AM) 109/71mm Hg (09/01/23 3:59 AM) 123/72mm Hg (09/01/23 1:07 AM) Respiratory Rate [16-30 br/min] 16 br/min (09/01/23 6:44 AM) 16 br/min (09/01/23 3:59 AM) 16 br/min (09/01/23 1:07 AM) Temperature [96.8-100.4 DegF] 98.4 DegF (08/31/23 9:57 PM) Mode of Delivery (Oxygen) Room air (09/01/23 6:44 AM) Room air (09/01/23 3:59 AM) Room air (09/01/23 1:07 AM) Temperature Route Oral (08/31/23 9:57 PM) Social History Social History Type Response Smoking Status Current every day sm oker; Type: Cigarettes; Other: 6 cigarettes per day; entered on: 09/27/15 Sex Note * Emi BELTRÁN, Eleuterio Leos: PERFORM Event Display: Patient Education Leaflets Authored Date: [id number] Alcohol Intoxication ?? [id number] Alcohol Intoxication Alcohol intoxication is very serious. [...] to families at www.al-anon.org . Or call 642-461-5497. ??? SMART Recovery ( Self- Management and Recovery Training). A nationwide abstinence-oriented support group for people with addictive issues. This free program is focused on motivation to change, urge control, and living a balanced life. For more information and meetings near you, go to www.[employer].org/ ??? Substance Abuse and Mental Health Services Administration (SAMHSA) Treatment Block Layer. Free information on treatment resources in your area at https://findtreatment.gov/. Or call 530-680-6904. Call 911 Call 911 if any of [...] vomiting ?? Last Reviewed Date: 2021 ?? 6940-6033 The [employer]. All rights reserved. This information is not intended as a substitute for professional medical care. Always follow your healthcare professional's instructions. ?? * Jordana Tse DO: PERFORM Event Display: Patient Education Leaflets Authored Date: [id number] Alcohol and Substance Abuse Disorder Resources ?? 703 Alcohol & Substance Use Disorder Resources? Short-term Detox Programs ?? - you can call these facilities directly to see if a bed is available ??? however, you may be told to call back every 2 hours ??? if you are told this, PLEASE follow those instructions! Bed availability can change very quickly! ? [facility] ??? ([place] ??? provides transportation) ??? [facility] ??? [phone] ([place]) ??? [facility] (Veterans only) ??? [phone] ([place] ??? [facility] ??? [phone] ([place]) ??? [facility] ??? [facility]- ([place]) ??? [facility] ??? / [phone] ([place]) ??? [facility] -?? [phone] ([place]) ??? [facility] ??? / ([place]) ??? [facility] - [phone] ([place]) ??? [facility] - [phone] ([place]) ??? [facility] [place] - [phone] ([place]) ??? [facility] - [phone] ([place]) ??? Carlos Bearden [place] - [phone] ??([place]) ??? [facility] [place] - [phone] ([place]) ??? [facility] - [phone] ([place]) ???[facility] - [phone] ([place]) ??? [facility] - [phone] ([place]) ??? [facility] - [phone] - ([place]) ??? [facility] - [phone] ([place]) ??? [facility] - [phone] ([place]) ??? [facility] - [phone] ([place]) ??? [facility] - ??? [facility] - [phone] ([place]) ??? [facility] [place] - [phone] ([place]) ??? [facility] - [phone] ([place]) ??? [facility] - [phone] ([place]) ??? [facility] [place] ??? [phone] Intensive Outpatient / Day Treatment Programs ??? some programs offer mornings, some evenings, someboth. Call for more information. Can usually call directly for an intake appointment. Some insurances may require a referral from your doctor. ? [facility] ??? IOP ??? [phone] ([place]) ??? [facility] ??? IOP ??? [phone] ([place]) ??? [facility] ??? IOP ??? [phone] ([place]) ??? BHN ??? [facility] ??? IOP ??? [phone] ([place]) ??? [facility] -IOP- [phone] or [phone] ?? Outpatient Clinics Specializing in Substance Use Disorder Treatment ??? call directly for information or an intake appointment ??? [facility] - [phone] ([place]) ??? [facility] - [phone] ([place]) ??? [facility] - [phone] ??? [facility] - [phone] ([place]) ??? [facility] - [phone] ([place]) ??? [facility] - [phone] ([place]), ([place]), ([place]) ??? [facility] ([place])- [phone] ([place]) ??? [facility] - [phone] ([place]) ??? [facility] - [phone] ([place]) ??? [facility] - [phone] ([place]) ??? [facility] - [phone] ([place]) ??? [facility] - [phone] ([place]) ??? [facility] - [phone] ([place]) ??? [facility] - [phone] ([place]) ??? [facility] - [phone] ([place]) ??? [facility] - [phone] ([place]) ??? [facility] - [phone] ([place]) ??? [facility] - [phone] ([place]) ? ? [facility] - [phone] ([place]) ??? [facility] Out[facility] Services - [phone] ([place]) ?? Medication Assisted Treatment Programs ??? Call directly for information or for intake ?? Methadone ??? [facility] ([place]) - [phone] ([place]) ??? [facility] - ??[phone] ([place]) ??? Health Care Resource Centers?? Multiple Locations ??? Call Main # ??for intake at any site ??? [phone] ??? [facility] Clinic ??? [phone] ??? [place] (methadone, suboxone & vivitrol) Suboxone, Vivitrol, Sublocade (Call for information) ??? [facility] ??? [phone] ([place]) ??? [facility] ??? [phone] ([place]) ??? [facility] ([place]) - [phone] ([place]) ??? [facility] ??? [phone] ([facility], Main #) ??? [facility] - [phone] ([facility] Main #) ??? [facility] ??? ([place] ) [phone] ?? CSS & Long-Term Residential Programs ? Typically require a referral from a detox or other interim residential program ??? call for information ??? [facility] ??? men ??? [phone] ([place]) ??? [facility] ??? women ??? [phone] ([place]) ??? [facility] ??? men - ([place]) ??? [facility] ??? men/women ??? 1- ([place]) ??? [facility] ??? men/women [phone] ([place]) ??? [facility] ??? women ??? Intake: [phone]; ([place]) ??? [facility] ??? Men - [phone] ([place]) ??? [facility] ??? women ??? [phone] ([place]) ??? [facility] Women[facility] - [phone] ([place]) ??? [facility] ??? Sherie ([facility]) - (intake) ??? [facility] ??? woman w/ children ??? [phone] ??? ([place]) ??? [facility] ??? men/women [phone] ([place]) ??? [facility] ??? men ??? [phone] ([place]) ??? [facility] ??? women ??? [phone] ([place]) ??? [facility] ??? men/women - [phone] ([place]) ??? [facility] ??? men/women - [phone] ext. [phone] ([place]) ??? [facility] CSS - men/women - [phone] - ([place]) ??? Spectrum?? - men/women - Intake - ??? ([place]) ??? [facility] CSS - men/women - [phone] ([place]) ??? [facility] ??? [place] ([facility]) - ([facility]) ?? Hotlines ??? To find a meeting or for peer support ??? Alcoholics Anonymous ??? [phone] ??? Narcotics Anonymous ? Gamblers Anonymous ? Support for Families & Friends ? To find a meeting or for peer support ? ? Al-Anon ? [phone], ??? Kael-Anon ??? [phone] ??? Al-A-Teen ??? [phone] ??? Learn to [place] ??? [phone] www.agyzf6hedq.org For Additional Resources Statewide call: ?? [place] Substance Abuse Information Hotline ? (01/02) To search online for TATI services and possible bed availability (local & statewide): https://www.[employer]ai [employer] ?? Click on ???substance use search?? and ??use the drop-down box to choose type of facility (ATS = detox) ? * Jordana Tse DO: PERFORM Event Display: Patient Education Leaflets Authored Date: [id number] Alcohol Abuse ?? 430295nh Alcohol Abuse Alcoholic drinks harm you when [...] problems ??? Seizures These changes may be half-way (permanent). Heart and blood vessels Alcohol can [...] and Substance Abuse Information Center (NASAIC) at www.addictioncareLamppost.[employer] Corporation or 548-812-8722 ??? National [place] on Alcoholism and Drug Dependence (NCADD) at www.ncadd.org or 528-FAO-ZTBG (040-689-2370) ?? Call 911 Call 911 if any [...] shakiness ?? Last Reviewed Date: 2021 ?? [employer]Focus. All rights reserved. This information is not intended as a substitute for professional medical care. Always follow your healthcare professional's instructions. ?? Patient Care team information Care Team Personnel Name: Unique Dubon RN Position: [facility] RN Member Role: Primary Care Nurse Name: Kadi Oliver RN Position: [facility] AMB Nurse Member Role: Primary Care Nurse Name: Mary Roberson RN Position: [facility] SN RN Member Role: Primary Care Nurse Name: Geraldine Cox RN Position: [facility] RN Member Role: Primary Care Nurse Name: Kami Sanchez RN Position: [facility] RN Member Role: Primary Care Nurse Name: Daniel Rodriguez RN Position: [facility] RN Member Role: Primary Care Nurse Name: Liz Moreno RN Position: [facility] RN Member Role: Primary Care Nurse Name: Dev De León RN Position: [facility] RN Member Role: Primary Care Nurse Name: Alexa Mitchell LPN Position: [facility] RN Member Role: Primary Care Nurse Name: Mary Arceo RN Position: [facility] RN Member Role: Primary Care Nurse Name: Toyin Contreras RN Position: [facility] Kacie RN Member Role: Primary Care Nurse Name: Kun Fisher RN Position: [facility] RN Member Role: Primary Care Nurse Name: Not on Staff, PCP Position: [facility] Physician (General Medicine) Member Role: PCP Name: Tierra Juan RN Position: [facility] SN RN Member Role: Primary Care Nurse Name: Veena Arthur RN Position: [facility] RN Member Role: Primary Care Nurse Name: Ashlyn Kenney Position: [facility] AMB [place] Member Role: Primary Care Nurse Name: Velia Shepherd RN Position: [facility] RN Member Role: Primary Care Nurse Name: Francoise Whaley RN Position: [facility] Aide Member Role: Primary Care Nurse Name: Elizabeth Chung RN Position: [facility] RN Member Role: Primary Care Nurse Care Team Related Persons Name: KATINA, AMY Address: [address] [address] Name: NEPTALIRUSSELLQUAN Address: home [address] [place] [address] Name: AMOS LOMBARDO Address: [place] [address]
--- OUTSIDE RECORDS SUMMARY | 2023-12-22 14:46 | XMS_ITS | Continuity of Care Document ---
Author Organization [facility] ter Address [address] [place] [address]- Care Team Providers Care Tractor Operator Helper Name Role Phone Not on Staff, PCP Primary Care Physician Unavail able [place] [facility] [place]23 - 09/02/[address] [address]- Encounter Diagnosis Alcohol intoxication(Final) - 09/01/23 Discharge Disposition: A-D/C Home Attending Physician: Yusra Sheehan DO Admitting Physician: Yusra Sheehan DO Referring Physician: Not on Staff, Referring MD Allergies, Adverse Reactions, Alerts Substance Reaction Severity Status Bee Stings Active Immunizations Given and Recorded Vaccine Date Status Refusal Reason influenza virus vaccine, inactivated 05/15/22 Marcos rded influenza virus vaccine, inactivated 04/15/22 Marcos rded influenza virus vaccine, inactivated 09/10/21 Marcos rded influenza virus vaccine, inactivated 05/10/17 Marcos rded influenza virus vaccine, inactivated 04/27/16 Marcos rded [id number] 12y+ bivalent booster vax 05/15/22 Recorded SARS-CoV-2 mRNA (jawajdg-eyvs-decyb) vax 11/19/21 Recorded tetanus/diphtheria/pertussis, acel(Tdap) 08/05/21 Recorded [...] 3 Oxygen Saturation [94-100 %] 95 % (09/01/23 11:17 PM) 97 % (09/01/23 5:16 PM) 97 % (09/01/23 4:56 PM) Pulse Rate [55-90 bpm] 115 bpm *H* (09/01/23 11:17 PM) 97 bpm *H* (09/01/23 5:16 PM) Blood Pressure [90-138/55-84 mm Hg] 133/69mm Hg (09/01/23 11:17 PM) 131/77mm Hg (09/01/23 5:16 PM) Respiratory Rate [16-30 br/min] 18 br/min (09/01/23 11:17 PM) 18 br/min (09/01/23 5:16 PM) Temperature [96.8-100.4 DegF] 98.1 DegF (09/01/23 5:16 PM) Liters per Minute 4 L/min (09/01/23 4:56 PM) Mode of Delivery (Oxygen) Room air (09/01/23 11:17 PM) Room air (09/01/23 5:16 PM) Nasal cannula (09/01/23 4:56 PM) Blood pressure sites Arm, right (09/01/23 11:17 PM) Arm, right (09/01/23 5:16 PM) Temperature Route Oral (09/01/23 5:16 PM) Social History Social History Type Response Smoking Status Current every day sm oker; Type: Cigarettes; Other: 6 cigarettes per day; entered on: 09/27/15 Sex Patient Care team information Care Team Personnel Name: Unique Dubon RN Position: [facility] RN Member Role: Primary Care Nurse Name: Kadi Oliver RN Position: [facility] AMB Nurse Member Role: Primary Care Nurse Name: Mary Roberson RN Position: [facility] SN RN Member Role: Primary Care Nurse Name: Geraldine Cox RN Position: [facility] RN Member Role: Primary Care Nurse Name: Kami Sanchez RN Position: [facility] RN Member Role: Primary Care Nurse Name: Daniel Rodriguez RN Position: [facility] RN Member Role: Primary Care Nurse Name: Liz Moreno RN Position: [facility] RN [...] Care Nurse Name: Kun Fisher RN Position: [facility] RN Member Role: Primary Care Nurse Name: Not on Staff, PCP Position: [facility] Physician (General Medicine) Member Role: PCP Name: Tierra Juan RN Position: [facility] SN RN Member Role: Primary Care Nurse Name: Veena Arthur RN Position: [facility] RN Member Role: Primary Care Nurse Name: Ashlyn Kenney Position: [facility] [place] Member Role: Primary Care Nurse Name: Velia Shepherd RN Position: [facility] RN Member Role: Primary Care Nurse Name: Francoise Whaley RN Position: [facility] Member Role: Primary Care Nurse Name: Elizabeth Chung RN Position: [facility] RN Member Role: Primary Care Nurse Care Team Related Persons Name: OPAL AMBRIZ Address: home [address] [address] Name: QUAN LOMBARDO Address: home [address] [place] [address] Name: AMOS LOMBARDO Address: [place] [address]
--- OUTSIDE RECORDS SUMMARY | 2023-12-22 14:46 | XMS_ITS | Continuity of Care Document ---
Author Organization [facility] ter Address [address] [place] [address]- Care Team Providers Care Custodian Athletic Equipment Name Role Phone Not on Staff, PCP Primary Care Physician Unavail able [place] [facility] [place] - 09/06/[address] [address]- Encounter Diagnosis Alcohol abuse(Final) - 09/05/23 Discharge Disposition: A-D/C Home Attending Physician: Zan [...] influenza virus vaccine, inactivated 04/27/16 Marcos rded [id number] 12y+ bivalent booster vax 05/15/22 Recorded SARS-CoV-2 mRNA (pvkiupf-wdry-aqokc) vax 11/19/21 Recorded tetanus/diphtheria/pertussis, acel(Tdap) 08/05/21 Recorded [...] 0 Refills, Maintenance, 09/05/23 23:07:00 EST, ECCapsule, [facility], Partial fill upon patient request if [...] Pulmonary embolus Confirmed Active 1aortic arc aneurysm Results Radiology Reports * Exam Date Time Procedure Performing Provider Status 09/05/23 8:[address] Head/Brain W/O Contrast Neri Farr; Auth (Verified) Notes: (CT Head/Brain W/O Contrast) Reason For Exam: Trauma RESULT: CT Head/Brain W/O Contrast CT Head/Brain W/O Contrast INDICATION: Hx of Present Illness: Patient from detox, ETOH. Denies CP, SOB. Denies CP, SOB; Reason: Trauma; Clinical Question(s): Other:; fall; Order Comment: TECHNIQUE: Noncontrast head CT using axial technique and reconstructed in axial and coronal planes.Iterative reconstruction techniques are used to optimize dose and image quality. CTDIvol Head: 45.80 mGy, DLP Head: 773 mGy*cm. COMPARISON: 09/04/2023. FINDINGS: Tunnel Heading Supervisor view findings, lines and tubes: None. BRAIN AND EXTRA-AXIAL SPACES: No parenchymal hemorrhage, midline shift, or mass effect. Tiny old right caudate lacunar infarctionunchanged. No acute infarct. Negative insular ribbon sign. Atherosclerotic vascular calcification of the carotid arteries but negative hyperdense vessel sign. 1.3 cm small left frontal meningioma unchanged. Mild prominence of the ventricles and sulci consistent with parenchymal volume loss. No white matter lesions. No subarachnoid hemorrhage. No subdural or epidural collection. CALVARIUM, SKULL BASE, AND SOFT TISSUES: No fractures or suspicious bony lesions. The paranasal sinuses and mastoid air cells are clear. Visualized orbits and globes are intact. The extracranial soft tissues are unremarkable. IMPRESSION: No acute intracranial pathology. WSN: [id number] Ordering Physician: Tasha De Jesus Dictated By: David Fyo MD Dictated Date/Time: 09/05/23 9:10 pm Reviewed By: David Foy MD Signed By: David Foy MD Signed Date/Time: 09/05/23 9:10 pm Transcribed By: MARC Transcribed Date/Time: 09/05/23 9:03 pm * Exam Date Time Procedure Performing Provider Status 09/05/23 8:58 PM Shoulder Min 2 Views Left Forte , Fahad ; Auth (Verified) Notes: (Shoulder Min 2 Views Left) Reason For Exam: with Pain;Trauma RESULT: Shoulder Min 2 Views Left Shoulder Min 2 Views Left CLINICAL INDICATION: Hx of Present Illness: Patient from detox, ETOH. Denies CP, SOB. Denies CP, SOB; Reason: Trauma; with Pain; Clinical Question(s): Fracture COMPARISONS: None TECHNIQUE: 3 views of the left shoulder were obtained. FINDINGS: There is no fracture or dislocation. There is no acromioclavicular joint widening. No periarticular calcifications. Mild AC joint arthropathy. IMPRESSION: No acute fracture or dislocation. WSN: [id number] Ordering Physician: Tasha De Jesus Dictated By: David Foy MD Dictated Date/Time: 09/05/23 9:03 pm Reviewed By: David Foy MD Signed By: David Foy MD Signed Date/Time: 09/05/23 9:03 pm Transcribed By: MARC Transcribed Date/Time: 09/05/23 9:01 pm * Exam Date Time Procedure Performing Provider Status 09/05/23 8:58 PM Chest 2 Views Frontal and Lat Gabbiee Erikaan; Auth (Verified) Notes: (Chest 2 Views Frontal and Lat) Reason For Exam: Traumatic Chest Pain;Other: RESULT: Chest 2 Views Frontal and Lat Chest 2 Views Frontal and Lat Hx of Present Illness: Patient from detox, ETOH. Denies CP, SOB. Denies CP, SOB; Reason: Other:; Traumatic Chest Pain; Clinical Question(s): Other:; Pneumothorax, Fracture COMPARISON: yesterday's xray 09/04/23, 01/11/2023. FINDINGS: LINES AND TUBES: None. LUNGS AND PLEURA: Low lung volumes with mild basilar atelectasis. No pleural effusion. No pneumothorax. HEART, MEDIASTINUM AND MARCY: Heart is at the upper limits of normal for size. Aorta is calcified. BONES AND SOFT TISSUES: No acute abnormality. Status post ORIF multiple right rib fractures. IMPRESSION: No acute abnormality. WSN: [id number] Ordering Physician: Tasha De Jesus Dictated By: David Foy MD Dictated Date/Time: 09/05/23 9:01 pm Reviewed By: David Foy MD Signed By: David Foy MD Signed Date/Time: 09/05/23 9:01 pm Transcribed By: MARC Transcribed Date/Time: 09/05/23 8:59 pm Vital Signs Most recent to oldest [Reference Range]: 1 2 3 Oxygen Saturation [94-100 %] 98 % (09/06/23 6:23 AM) 97 % (09/06/23 3:30 AM) 97 % (09/06/23 1:16 AM) Pulse Rate [55-90 bpm] 91 bpm *H* (09/06/23 6:23 AM) 95 bpm *H* (09/06/23 3:32 AM) 95 bpm *H* (09/06/23 3:30 AM) Blood Pressure [90-138/55-84 mm Hg] 153/84mm Hg *H* (09/06/23 6:23 AM) 148/87mm Hg *H* (09/06/23 3:32 AM) 148/87mm Hg *H* (09/06/23 3:30 AM) Respiratory Rate [16-30 br/min] 20 br/min (09/06/23 6:23 AM) 1 br/min *L* (09/06/23 3:32 AM) 16 br/min (09/06/23 3:30 AM) Temperature [96.8-100.4 DegF] 98.1 DegF (09/06/23 6:23 AM) 98.9 DegF (09/05/23 10:56 PM) 98.5 DegF (09/05/23 7:04 PM) Mode of Delivery (Oxygen) Room air (09/06/23 6:23 AM) Room air (09/06/23 3:30 AM) Room air (09/06/23 1:16 AM) Blood pressure sites Arm, right (09/06/23 6:23 AM) Arm, right (09/06/23 3:30 AM) Arm, right (09/06/23 1:16 AM) Temperature Route Oral (09/06/23 6:23 AM) Oral (09/05/23 10:56 PM) Oral (09/05/23 7:04 PM) Social History Social History Type Response Smoking Status Current every day sm angie; Type: Cigarettes; Other: 6 cigarettes per day; entered on: 09/27/15 Sex EKG study * Event Display: EKG Authored Date: * Event Display: ECG 12-Lead Authored Date: Please click on pdf link to open report * Event Display: ECG 12-Lead Authored Date: Ventricular Rate: 92 BPM Atrial Rate: 92 BPM P-R Interval: 130 ms QRS Duration: 94 ms Q-T Interval: 374 ms QTC Calculation(Bazett): 462 ms P Gueydan: 19 degrees R Gueydan: 19 degrees T Gueydan: 44 degrees Normal sinus rhythm Normal ECG When compared with ECG of 04-SEP-2023 17:43, No significant change was found Confirmed by BOOKER ALANIS ([id number]) on 09/06/2023 3:46:14 PM Baxter: BOOKER ALANIS Note * Ca THOMAS, Cyndi: PERFORM Event Display: Patient Education Leaflets Authored Date: [facility] [place] - Substance Abuse Resources ?? 151 If you need Substance Abuse Resources: ?? [facility] [phone] ?? [facility] [phone] ?? [facility] [phone] ?? [facility] [phone] ?? [facility] [phone] ?? [facility] [place] [phone] ?? [facility] [phone] ?? [facility] ?? [facility] [place] [phone] ?? [facility] [phone] ?? [facility] [phone] ?? [facility] [place] [phone] ?? [facility] [phone] ?? [facility] [phone] ?? [facility] [place] [facility] [phone] ?? [facility] (13-17 yo) [place] [phone] ?? [facility] (Adolescent) [place] [phone] ? Partial Hospitalization ??? Outpatient therapy for adults and families with substance abuse problems [facility] [phone] ? Support Services ? [facility] - Outpatient therapy /support for recovery / transitional housing & shelters? [facility] [phone] ? [facility] - women's AA group/street outreach program/health access assistance? [address] [facility] [phone] ? Alcoholic Anonymous - AA program to maintain sobriety/ Alanon-support for families of alcoholics/Alateen-support for children of same [phone] ? [facility] - recovery support services/sober social Opportunities [address] [place] [address] ? * Cyndi Holt: PERFORM Event Display: Patient Education Leaflets Authored Date: [id number] [facility] [place] Shelters ?? 35 [facility] Emergency Department Community Skilled Nursing Directory ?? EMERGENCY Shelters Important: Alcohol and drugs are absolutely forbidden in all shelters. ?? [facility] Skilled Nursing ([facility]) [address] [place] [address] Adult men and women only- no children 3 meals day served-health care and dental clinic Referral: Walk-ins are accepted/ phone calls are preferred ?? [facility] Emergency [facility]illed Nursing [address] [place], [place] [phone] Men only- [facility] based emergency jail- reopening 09/2012 Referrals: Must line up by 3pm. manager route for intake. ?? [facility] [address] [place] [address] Adult men and women 2 meals per day/health care nurse Referral: Must contact intake by phone before coming ?? [facility] [address] [place] [address] Adult men and women open May 12-November 09 3 meals day-must leave jail by 7am Referral: First come, first serve line up begins at 5:30pm ?? [facility] [address] [place] [address] Adult men and women (one room for families with children) Referral: First come, first serve lineup begins at 3:30pm ?? [address] [address] Men only Referral:?? $300.00/month fee (1st??month heidy period available) ?? [facility] [address] [place], [place]?? [address] Men only ?? [facility] [place], [place] 120 [facility] ?? [place] [address] Women and children ?? [facility] Women???s Skilled [facility] [address] [place], [place]?? Women and children ?? [facility] (relocation and support) [place], [place] (Hotline) Emergency Abuse and Rape crises support, jail ?? [facility] Rape/Domestic Violence Hotline Skilled Nursing referral ? [facility] ([facility]) [address] [place], [place]?? [address] Lunch and Dinner provided (Mon ???Sat: Noon and 5pm; Sun: 1 and 5pm) ?? Additional Skilled Nursing Options ?? [facility] Emergency [facility]illed Nursing [address] [facility] [phone] [place] + [place] [address] ? [facility] [address] [phone] Male + Female Beds [facility] [address] [address] [facility] [address] [phone] ?? [facility] [address] [address] [facility] [address] [facility] [phone] ?? [facility] [address] ?[place] [facility] 17 [facility] [phone] ?? [facility] [address] ? [facility] [address] [facility] [phone] By Application Only/Must Call [facility] [address] ? [facility] 143?? [facility] [phone] ? [facility] [address] [address] [facility] [address] [phone] ?? [facility] [address] ? [facility] Skilled Nursing 43 [facility] [phone] ?? [facility] [address] ?[facility] ?? [phone] ?[facility]? [place], [place]?? [phone]? Emergency short stay, women, men, families ? [place], [place]?? [phone] Families, adults, men, LGBTQ ? [address] Emergency Skilled Nursing?[place],??[place]?[phone]?[facility] ??[place] [address]?[phone]?[facility] [place], [place] [phone] ?[place], [place] ??[phone] ? [address] [facility] [place] [phone] ? [facility] [place], [place] [phone] ? [address] Skilled Nursing [place], [place] [phone] ? [facility] [place] [phone] ?[place] [facility] ??[place], [place] ??[phone] ? Patient Care team information Care Team Personnel Name: Unique Dubon RN Position: [facility] RN Member Role: Primary Care Nurse Name: Kadi Oliver RN Position: [facility] AMB Nurse Member Role: Primary Care Nurse Name: Mary Roberson RN Position: [facility] SN RN Member Role: Primary Care Nurse Name: Geraldine Cox RN Position: [facility] RN Member Role: Primary Care Nurse Name: Kami Sanchez RN Position: [facility] RN Member Role: Primary Care Nurse Name: Daniel Rodriguez RN Position: [facility] RN Member Role: Primary Care Nurse Name: Liz Moreno RN Position: [facility] RN Member Role: Primary Care Nurse Name: Dev De León RN Position: [facility] RN Member Role: Primary Care Nurse Name: Alexa Mitchell LPN Position: [facility] RN Member Role: Primary Care Nurse Name: Mary Arceo RN Position: [facility] RN Member Role: Primary Care Nurse Name: Toyin Contreras RN Position: [facility] Onco RN Member Role: Primary Care Nurse Name: Kun Fisher RN Position: [facility] RN Member Role: Primary Care Nurse Name: Not on Staff, PCP Position: [facility] Physician (General Medicine) Member Role: PCP Name: Tierra Juan RN Position: [facility] SN RN Member Role: Primary Care Nurse Name: Veena Arthur RN Position: [facility] RN Member Role: Primary Care Nurse Name: Ashlyn Kenney Position: [facility] AMB [place] Member Role: Primary Care Nurse Name: Velia Shepherd RN Position: [facility] RN Member Role: Primary Care Nurse Name: Francoise Whaley RN Position: [facility] Hospital Compressed Air Pile Driver Operator Member Role: Primary Care Nurse Name: Elizabeth Chung RN Position: [facility] RN Member Role: Primary Care Nurse Care Team Related Persons Name: OPAL AMBRIZ Address: home [address] [address] Name: QUAN LOMBARDO Address: home [address] [place] [address] Name: AMOS LOMBARDO Address: [place] [address]
--- OUTSIDE RECORDS SUMMARY | 2023-12-22 14:46 | XMS_ITS | Continuity of Care Document ---
Author Organization [facility] Address [address] [place] [address]- Care Team Providers Care Foot Gatherer Name Role Phone Not on Staff, PCP Primary Care Physician Unavail able Encounter [facility] Date(s): 10/14/23 - 11/13/23 [facility] [address] [place] [address] Attending Physician: Admtr, Radha Admitting Physician: Admtr, Ar8 Referring Physician: Admtr, Ar8 Allergies, Adverse Reactions, Alerts Substance Reaction Severity Status Bee Stings Active Immunizations Given and Recorded Vaccine Date Status Refusal Reason influenza virus vaccine, inactivated 05/15/22 Marcos rded influenza virus vaccine, inactivated 04/15/22 Marcos rded influenza virus vaccine, inactivated 09/10/21 Marcos rded influenza virus vaccine, inactivated 05/10/17 Marcos rded influenza virus vaccine, inactivated 04/27/16 Marcos rded [id number] 12y+ bivalent booster vax 05/15/22 Recorded SARS-CoV-2 mRNA (maxbspq-lzpt-craps) vax 11/19/21 Recorded tetanus/diphtheria/pertussis, acel(Tdap) 08/05/21 Recorded [...] 0 Refills, Maintenance, 09/05/23 23:07:00 EST, ECCapsule, [facility], Partial fill upon patient request if [...] Team Personnel Name: Unique Dubon RN Position: [facility] RN Member Role: Primary Care Nurse Name: Kadi Oliver RN Position: [facility] Nurse Member Role: Primary Care Nurse Name: Mary Roberson RN Position: [facility] SN RN Member Role: Primary Care Nurse Name: Geraldine Cox RN Position: [facility] RN Member Role: Primary Care Nurse Name: Kami Sanchez RN Position: [facility] RN Member Role: Primary Care Nurse Name: Daniel Rodriguez RN Position: [facility] RN Member Role: Primary Care Nurse Name: Liz Moreno RN Position: [facility] RN Member Role: Primary Care Nurse Name: Dev De León RN Position: [facility] RN Member Role: Primary Care Nurse Name: Alexa Mitchell LPN Position: [facility] RN Member Role: Primary Care Nurse Name: Mary Arceo RN Position: [facility] RN Member Role: Primary Care Nurse Name: Toyin Contreras RN Position: [facility] Onco RN Member Role: Primary Care Nurse Name: Kun Fisher RN Position: [facility] RN Member Role: Primary Care Nurse Name: Not on Staff, PCP Position: [facility] Physician (General Medicine) Member Role: PCP Name: Tierra Juan RN Position: [facility] SN RN Member Role: Primary Care Nurse Name: Veena Arthur RN Position: [facility] RN Member Role: Primary Care Nurse Name: Elizabeth Woodard RN Position: [facility] Outreach Member Role: Primary Care Nurse Name: Ashlyn Kenney Position: [facility] AMB [place] Member Role: Primary Care Nurse Name: Velia Shepherd RN Position: [facility] RN Member Role: Primary Care Nurse Name: Francoise Whaley RN Position: [facility] Hospital Edging Catcher Member Role: Primary Care Nurse Name: Elizabeth Chung RN Position: [facility] RN Member Role: Primary Care Nurse Care Team Related Persons Name: OPAL AMBRIZ Address: home [address] [address] Name: QUAN LOMBARDO Address: home [address] [place] [address] Name: AMOS LOMBARDO Address: [place] [address]
--- OUTSIDE RECORDS SUMMARY | 2023-12-22 14:46 | XMS_ITS | Continuity of Care Document ---
Author Organization [facility] ter Address [address] [place] [address]- Care Team Providers Care Flyer Maker Name Role Phone Not on Staff, PCP Primary Care Physician Unavail able Encounter [facility] Date(s): 09/02/23 - 09/02/[address] [address]- Encounter Diagnosis Alcohol use disorder(Final) - 09/02/23 Suicidal thoughts(Final) - 09/02/23 Discharge Disposition: A-D/C Home Attending Physician: Nirav Sandoval DO Admitting Physician: Nirav Sandoval DO Referring Physician: Not on Staff, Referring MD Allergies, Adverse Reactions, Alerts Substance Reaction Severity Status Bee Stings Active Immunizations Given and Recorded Vaccine Date Status Refusal Reason influenza virus vaccine, inactivated 05/15/22 Marcos rded influenza virus vaccine, inactivated 04/15/22 Marcos rded influenza virus vaccine, inactivated 09/10/21 Marcos rded influenza virus vaccine, inactivated 05/10/17 Marcos rded influenza virus vaccine, inactivated 04/27/16 Marcos rded [id number] 12y+ bivalent booster vax 05/15/22 Recorded SARS-CoV-2 mRNA ([id number]-nqow-fmbkl) vax 11/19/21 Recorded tetanus/diphtheria/pertussis, acel(Tdap) 08/05/21 Recorded [...] to oldest [Reference Range]: 1 2 Height 183 cm (09/02/23 3:03 AM) Weight 69 kg (09/02/23 3:03 AM) Oxygen Saturation [94-100 %] 96 % (09/02/23 5:32 AM) 99 % (09/02/23 3:03 AM) Pulse Rate [55-90 bpm] 98 bpm *H* (09/02/23 5:32 AM) 127 bpm *H* (09/02/23 3:03 AM) Body Mass Index [18.5-24.99 kg/m2] 20.6 kg/m2 (09/02/23 3:03 AM) Blood Pressure [90-138/55-84 mm Hg] 148/ 77mm Hg *H* (09/02/23 5:32 AM) 138/89mm Hg (09/02/23 3:03 AM) Respiratory Rate [16-30 br/min] 18 br/mi n (09/02/23 5:32 AM) 20 br/min (09/02/23 3:03 AM) Temperature [96.8-100.4 DegF] 97.8 DegF (09/02/23 5:32 AM) 98.2 DegF (09/02/23 3:03 AM) Mode of Delivery (Oxygen) Room air (09/02/23 5:32 AM) Room air (09/02/23 3:03 AM) Temperature Route Oral (09/02/23 5:32 AM) Oral (09/02/23 3:03 AM) Dry Weight 69 kg (09/02/23 3:03 AM) Weight Obtained Via Patient/family state d (09/02/23 3:03 AM) Dry Weight Obtained Via Patient/family s tated (09/02/23 3:03 AM) Social History Social History Type Response Smoking Status Current every day sm oker; Type: Cigarettes; Other: 6 cigarettes per day; entered on: 09/27/15 Sex Note * Sidra Fisher MD: PERFORM Event Display: Patient Education Leaflets Authored Date: [id number] Alcohol Intoxication ?? [id number] Alcohol Intoxication Alcohol intoxication is very serious. [...] to families at www.al-anon.org . Or call 899-761-7545. ??? SMART Recovery ( Self- Management and Recovery Training). A nationwide abstinence-oriented support group for people with addictive issues. This free program is focused on motivation to change, urge control, and living a balanced life. For more information and meetings near you, go to www.Nuiku.org/ ??? Substance Abuse and Mental Health Services Administration (SAMHSA) Treatment Parking Technician. Free information on treatment resources in your area at https://findtreatment.gov/. Or call 452-555-6576. Call 941 Call 911 if any of these occur: [...] vomiting ?? Last Reviewed Date: 2021 ?? 4341-4534 The We[employer]. All rights reserved. This information is not intended as a substitute for professional medical care. Always follow your healthcare professional's instructions. ?? Patient Care team information Care Team Personnel Name: Unique Dubon RN Position: [facility] RN Member Role: Primary Care Nurse Name: Kadi Oliver RN Position: [facility] AMB Nurse Member Role: Primary Care Nurse Name: Mary Roberson RN Position: [facility] SN RN Member Role: Primary Care Nurse Name: Geraldine Cox RN Position: [facility] RN Member Role: Primary Care Nurse Name: Kami Sanchez RN Position: [facility] RN Member Role: Primary Care Nurse Name: Daniel Rodriguez RN Position: [facility] RN Member Role: Primary Care Nurse Name: Liz Moreno RN Position: [facility] RN Member Role: Primary Care Nurse Name: Dev De León RN Position: [facility] RN Member Role: Primary Care Nurse Name: Alexa Mitchell LPN Position: [facility] RN Member Role: Primary Care Nurse Name: Mary Arceo RN Position: [facility] RN Member Role: Primary Care Nurse Name: Toyin Contreras RN Position: [facility] Onco RN Member Role: Primary Care Nurse Name: Kun Fisher RN Position: [facility] RN Member Role: Primary Care Nurse Name: Not on Staff, PCP Position: [facility] Physician (General Medicine) Member Role: PCP Name: Tierra Juan RN Position: [facility] SN RN Member Role: Primary Care Nurse Name: Veena Arthur RN Position: [facility] RN Member Role: Primary Care Nurse Name: Ashlyn Kenney Position: [facility] AMB [place] Member Role: Primary Care Nurse Name: Velia Shepherd RN Position: [facility] RN Member Role: Primary Care Nurse Name: Francoise Whaley RN Position: [facility] Hospital Mold Chipper Member Role: Primary Care Nurse Name: Elizabeth Chung RN Position: [facility] RN Member Role: Primary Care Nurse Care Team Related Persons Name: OPAL AMBRIZ Address: [address] [address] Name: QUAN LOMBARDO Address: home [address] [place] [address] Name: AMOS LOMBARDO Address: [place] [address]
--- OUTSIDE RECORDS SUMMARY | 2023-12-22 14:47 | XMS_ITS | Continuity of Care Document ---
Author Organization [facility] ter Address [address] [place] [address]- Care Team Providers Care Addressograph Operator Name Role Phone Not on Staff, PCP Primary Care Physician Unavail able Encounter [facility] Date(s): 09/04/23 - 09/05/[address] [address]- Encounter Diagnosis Alcohol intoxication(Final) - 09/04/23 Altered mental status(Final) - 09/04/23 Alcohol abuse with intoxication(Final) - 09/05/23 Somnolence(Final) - 09/05/23 Cocaine use(Final) - 09/05/23 Discharge Disposition: A-D/C Home Attending Physician: Cr Oh DO Admitting Physician: Cr Oh DO Referring Physician: Not on Staff, Referring MD Allergies, Adverse Reactions, Alerts Substance Reaction Severity Status Bee Stings Active Immunizations Given and Recorded Vaccine Date Status Refusal Reason influenza virus vaccine, inactivated 05/15/22 Marcos rded influenza virus vaccine, inactivated 04/15/22 Marcos rded influenza virus vaccine, inactivated 09/10/21 Marcos rded influenza virus vaccine, inactivated 05/10/17 Marcos rded influenza virus vaccine, inactivated 04/27/16 Marcos rded [id number] 12y+ bivalent booster vax 05/15/22 Recorded SARS-CoV-2 mRNA (dtwqibv-ykha-bksrt) vax 11/19/21 Recorded tetanus/diphtheria/pertussis, acel(Tdap) 08/05/21 Recorded [...] 0 Refills, Maintenance, 09/05/23 23:07:00 EST, E[facility], [facility], Partial fill upon patient request if [...] Exam Date Time Procedure Performing Provider Status 09/04/23 8:[address] Head/Brain W/O Contrast Mally Barone; Auth (Verified) Notes: (CT Head/Brain W/O Contrast) Reason For Exam: Headache(s) RESULT: CT Head/Brain W/O Contrast CT Head/Brain W/O Contrast INDICATION: Hx of Present Illness: Patient coming from home with ams found to be intoxicated per son; Reason: Headache(s); Clinical Question(s): Hematoma; Order Comment: TECHNIQUE: Noncontrast head CT using axial technique and reconstructed in axial and coronal planes.Iterative reconstruction techniques are used to optimize dose and image quality. COMPARISON: 01/11/2023. FINDINGS: Pulverizer Mill Operator view findings, lines and tubes: None. BRAIN AND EXTRA-AXIAL SPACES: Stable 1.4 cm partially calcified dural based lesion in the left frontal lobe, most likely a hemangioma. No parenchymal hemorrhage, midline shift, or mass effect. Gaines-white matter differentiation iswell preserved. No acute infarct. Mild prominence of the ventricles and sulci consistent with parenchymal volume loss. Mild low-density white matter changes. No subarachnoid hemorrhage. No subdural or epidural collection. CALVARIUM, SKULL BASE, AND SOFT TISSUES: No fractures or suspicious bony lesions. The paranasal sinuses and mastoid air cells are clear. Visualized orbits and globes are intact. The extracranial soft tissues are unremarkable. IMPRESSION: No acute intracranial pathology. Stable 1.4 cm partially calcified left frontal lesion, most likely a meningioma. WSN: [id number] Ordering Physician: Deloris King Dictated By: Gerald Vega MD Dictated Date/Time: 09/04/23 8:48 pm Reviewed By: Gerald Vega MD Signed By: Gerald Vega MD Signed Date/Time: 09/04/23 8:48 pm Transcribed By: MARC Transcribed Date/Time: 09/04/23 8:42 pm * Exam Date Time Procedure Performing Provider Status 09/04/23 8:28 PM Chest 2 Views Frontal and Lat Kaylah Najera; [place] (Verified) Notes: (Chest 2 Views Frontal and Lat) Reason For Exam: Shortness of Breath, Fever;Other: RESULT: Chest 2 Views Frontal and Lat Chest 2 Views Frontal and Lat Hx of Present Illness: Patient coming from home with ams found to be intoxicated per son; Reason: Other:; Shortness of Breath, Fever; Clinical Question(s): Pneumonia COMPARISON: 01/11/2023. FINDINGS: LINES AND TUBES: None. LUNGS AND PLEURA: Low lung volumes with mild basilar atelectasis. No pleural effusion. No pneumothorax. HEART, MEDIASTINUM AND MARCY: Heart is normal in size. Normal mediastinal and hilar contour. BONES AND SOFT TISSUES: No acute abnormality. Status post] ORIF. IMPRESSION: Low lung volumes with bibasilar atelectasis. Limited evaluation for lower lobe pneumonia due to generalized hypoventilation. Upper lobes are clear. WSN: [id number] Ordering Physician: Deloris King Dictated By: David Foy MD Dictated Date/Time: 09/04/23 8:39 pm Reviewed By: David Foy MD Signed By: David Foy MD Signed Date/Time: 09/04/23 8:39 pm Transcribed By: MARC Transcribed Date/Time: 09/04/23 8:37 pm Vital Signs Most recent to oldest [Reference Range]: 1 2 3 Oxygen Saturation [94-100 %] 95 % (09/05/23 6:17 AM) 97 % (09/05/23 3:50 AM) 94 % (09/05/23 2:28 AM) Pulse Rate [55-90 bpm] 93 bpm *H* (09/05/23 6:17 AM) 101 bpm *H* (09/05/23 3:50 AM) 97 bpm *H* (09/05/23 2:28 AM) Blood Pressure [90-138/55-84 mm Hg] 156/82mm Hg *H* (09/05/23 6:17 AM) 138/80mm Hg (09/05/23 3:50 AM) 138/80mm Hg (09/05/23 2:28 AM) Respiratory Rate [16-30 br/min] 18 br/min (09/05/23 6:17 AM) 18 br/min (09/05/23 3:50 AM) 16 br/min (09/05/23 2:28 AM) Temperature [96.8-100.4 DegF] 97.8 DegF (09/05/23 6:17 AM) 98.2 DegF (09/04/23 11:53 PM) 97.5 DegF (09/04/23 7:39 PM) Liters per Minute 2 L/min (09/04/23 7:39 PM) 2 L/min (09/04/23 6:50 PM) 2 L/min (09/04/23 6:46 PM) Mode of Delivery (Oxygen) Room air (09/05/23 6:17 AM) Room air (09/05/23 3:50 AM) Room air (09/05/23 2:28 AM) Blood pressure sites Arm, left (09/05/23 6:17 AM) Arm, left (09/05/23 3:50 AM) Arm, left (09/05/23 2:28 AM) Temperature Route Oral (09/05/23 6:17 AM) Oral (09/04/23 11:53 PM) Axillary (09/04/23 7:39 PM) Social History Social History Type Response Smoking Status Current every day aj adams; Type: Cigarettes; Other: 6 cigarettes per day; entered on: 09/27/15 Sex EKG study * Event Display: EKG Authored Date: * Event Display: ECG 12-Lead Authored Date: Please click on pdf link to open report * Event Display: ECG 12-Lead Authored Date: Ventricular Rate: 91 BPM Atrial Rate: 91 BPM P-R Interval: 128 ms QRS Duration: 98 ms Q-T Interval: 370 ms QTC Calculation(Bazett): 455 ms P [place]: 25 degrees R [place]: 20 degrees T [place]: 54 degrees Normal sinus rhythm Normal ECG When compared with ECG of 01-SEP-2023 10:20, No significant change was found Confirmed by MIGUEL AZUL MD ([id number]) on 09/05/2023 12:42:44 PM Carrie: MIGUEL AZUL MD Note * Cyndi Holt: PERFORM Event Display: Patient Education Leaflets Authored Date: [id number] Alcohol Intoxication ?? [id number] Alcohol Intoxication Alcohol intoxication is very serious. [...] to families at www.al-anon.org . Or call 296-085-6172. ??? SMART Recovery ( Self- Management and Recovery Training). A nationwide abstinence-oriented support group for people with addictive issues. This free program is focused on motivation to change, urge control, and living a balanced life. For more information and meetings near you, go to www.Hotlease.Com.org/ ??? Substance Abuse and Mental Health Services Administration (SAMHSA) Treatment Senior Web Analyst. Free information on treatment resources in your area at https://findtreatment.gov/. Or call 707-043-9385. Call 911 Call 911 if any of [...] vomiting ?? Last Reviewed Date: 2021 ?? 4511-3649 The yWorld. All rights reserved. This information is not intended as a substitute for professional medical care. Always follow your healthcare professional's instructions. ?? Patient Care team information Care Team Personnel Name: Unique Dubon RN Position: [facility] RN Member Role: Primary Care Nurse Name: Kadi Oliver RN Position: [facility] AMB Nurse Member Role: Primary Care Nurse Name: Mary Roberson RN Position: [facility] SN RN Member Role: Primary Care Nurse Name: Geraldine Cox RN Position: [facility] RN Member Role: Primary Care Nurse Name: Kami Sanchez RN Position: [facility] RN Member Role: Primary Care Nurse Name: Daniel Rodriguez RN Position: [facility] RN Member Role: Primary Care Nurse Name: Liz Moreno RN Position: [facility] RN Member Role: Primary Care Nurse Name: Dev De León RN Position: [facility] RN Member Role: Primary Care Nurse Name: Alexa Mitchell LPN Position: [facility] RN Member Role: Primary Care Nurse Name: Mary Arceo RN Position: [facility] RN Member Role: Primary Care Nurse Name: Toyin Contreras RN Position: [facility] Onco RN Member Role: Primary Care Nurse Name: Kun Fisher RN Position: [facility] RN Member Role: Primary Care Nurse Name: Not on Staff, PCP Position: [facility] Physician (General Medicine) Member Role: PCP Name: Tierra Juan RN Position: [facility] RN Member Role: Primary Care Nurse Name: Veena Arthur RN Position: [facility] RN Member Role: Primary Care Nurse Name: Ashlyn Kenney Position: [facility] [place] Member Role: Primary Care Nurse Name: Velia Shepherd RN Position: [facility] RN Member Role: Primary Care Nurse Name: Francoise Whaley RN Position: [facility] Hospital Wastewater Analyst Member Role: Primary Care Nurse Name: Elizabeth Chung RN Position: [facility] RN Member Role: Primary Care Nurse Care Team Related Persons Name: OPAL AMBRIZ Address: home [address] [address] Name: QUAN LOMBARDO Address: home [address] [place] [address] Name: AMOS LOMBARDO Address: [place] [address]
--- OUTSIDE RECORDS SUMMARY | 2023-12-22 14:47 | XMS_ITS | Continuity of Care Document ---
Author Organization [facility] ter Address [address] [place] [address]- Care Team Providers Care Mat Gauger Name Role Phone Not on Staff, PCP Primary Care Physician Unavail able Encounter [facility] Date(s): 09/01/23 - 09/01/[address] [address]- Discharge Disposition: A-D/C Home Attending Physician: Colby Andrade MD Admitting Physician: Colby Andrade MD Referring Physician: Not on Staff, Referring MD Allergies, Adverse Reactions, Alerts Substance Reaction Severity Status Bee Stings Active Immunizations Given and Recorded Vaccine Date Status Refusal Reason influenza virus vaccine, inactivated 05/15/22 Marcos rded influenza virus vaccine, inactivated 04/15/22 Marcos rded influenza virus vaccine, inactivated 09/10/21 Marcos rded influenza virus vaccine, inactivated 05/10/17 Marcos rded influenza virus vaccine, inactivated 04/27/16 Marcos rded [id number] 12y+ bivalent booster vax 05/15/22 Recorded SARS-CoV-2 mRNA (yphegvy-feru-okqrp) vax 11/19/21 Recorded tetanus/diphtheria/pertussis, acel(Tdap) 08/05/21 Recorded [...] Range]: 1 2 Oxygen Saturation [94-100 %] 93 % *L* (09/01/23 11:45 AM) 94 % (09/01/23 9:46 AM) Pulse Rate [55-90 bpm] 94 bpm *H* (09/01/23 11:45 AM) 86 bpm (09/01/23 9:46 AM) Blood Pressure [90-138/55-84 mm Hg] 115/ 79mm Hg (09/01/23 11:45 AM) 115/72mm Hg (09/01/23 9:46 AM) Respiratory Rate [16-30 br/min] 16 br/mi n (09/01/23 11:45 AM) 16 br/min (09/01/23 9:46 AM) Temperature [96.8-100.4 DegF] 97.7 DegF (09/01/23 9:46 AM) Mode of Delivery (Oxygen) Room air (09/01/23 11:45 AM) Room air (09/01/23 9:46 AM) Blood pressure sites Arm, right (09/01/23 9:46 AM) Temperature Route Oral (09/01/23 9:46 AM) Social History Social History Type Response Smoking Status Current every day aj adams; Type: Cigarettes; Other: 6 cigarettes per day; entered on: 09/27/15 Sex EKG study * Event Display: ECG 12-Lead Authored Date: Please click on pdf link to open report * Event Display: ECG 12-Lead Authored Date: Ventricular Rate: 86 BPM Atrial Rate: 86 BPM P-R Interval: 126 ms QRS Duration: 94 ms Q-T Interval: 378 ms QTC Calculation(Bazett): 452 ms P [place]: 39 degrees R [place]: 26 degrees T [place]: 53 degrees Normal sinus rhythm Normal ECG When compared with ECG of 11-MAR-2023 00:25, No significant change was found Confirmed by GIORGI GAMBINO ([id number]) on 09/01/2023 11:09:38 AM [place]: GIORGI GAMBINO * Event Display: EKG Authored Date: Hospital Progress note * Lizzy Rapp MD: PERFORM, MODIFY Event Display: Progress Note Hospital Authored Date: Patient: ??SEEKINS, MELISSA ? Age:??57 Years?Sex:??Male?:??1965? 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 Alcohol level on presentation was 341.?? TFTs dem onstrated a suppressed TSH and slightly elevated free T4 2.89.?? I was contacted by the ER providerregarding his abnormal TFTs and initiating treatment.?? On chart review, in December 2022 he had TFTs consistent with subclinical hyperthyroidism with a low TSH 0.14 and normal free T4.?? Vitals on presentation demonstrated slight intermittent tachycardia in the low 90s, normotension and normothermia. ? I recommended to add on a free T3, TRAb, TSI and TPO antibodies.?? There was no martinez to start ATD on this patient, without understanding the underlying etiology.?? The plan was to see the patient in full evaluation later today or tomorrow morning depending on the lab results, however, when I followed up with the ED provider, patient was discharged as he was eager to go home and was making a sceneto leave.?? Notably, he also has a history of??nonadherence.?? It was recommended that the patient follows closely with his PCP.?? In addition, I will send a message to our office scheduling team to reach out to the patient to offer him an appointment for official consultation outpatient. ? Lizzy Rapp MD Endocrinology Fellow, PGY-V Note * Meghann Montano: PERFORM Event Display: Patient Education Leaflets Authored Date: [id number] Alcohol Intoxication ?? [id number] Alcohol Intoxication Alcohol intoxication is very serious. [...] to families at www.al-anon.org . Or call 466-664-5007. ??? [facility] [facility] ( Self- Management and Recovery Training). A nationwide abstinence-oriented support group for people with addictive issues. This free program is focused on motivation to change, urge control, and living a balanced life. For more information and meetings near you, go to www.Zscaler.org/ ??? Substance Abuse and Mental Health Services Administration (SAMA) Treatment Public Defender. Free information on treatment resources in your area at https://findtreatment.gov/. Or call 635-524-0805. Call 881 Call 911 if any of these occur: [...] vomiting ?? Last Reviewed Date: 2021 ?? 7388-3379 The [employer]. All rights reserved. This information is not intended as a substitute for professional medical care. Always follow your healthcare professional's instructions. ?? Patient Care team information Care Team Personnel Name: Unique Dubon RN Position: [facility] RN Member Role: Primary Care Nurse Name: Kadi Oliver RN Position: [facility] Nurse Member Role: Primary Care Nurse Name: Mary Roberson RN Position: [facility] SN RN Member Role: Primary Care Nurse Name: Geraldine Cox RN Position: [facility] RN Member Role: Primary Care Nurse Name: Kami Sanchez RN Position: [facility] RN Member Role: Primary Care Nurse Name: Daniel Rodriguez RN Position: [facility] RN Member Role: Primary Care Nurse Name: Liz Moreno RN Position: [facility] RN Member Role: Primary Care Nurse Name: Dev De León RN Position: [facility] RN Member Role: Primary Care Nurse Name: Alexa Mitchell LPN Position: [facility] RN Member Role: Primary Care Nurse Name: Mary Arceo RN Position: [facility] RN Member Role: Primary Care Nurse Name: Toyin Contreras RN Position: [facility] Oncidris RN Member Role: Primary Care Nurse Name: Kun Fisher RN Position: [facility] RN Member Role: Primary Care Nurse Name: Not on Staff, PCP Position: [facility] Physician (General Medicine) Member Role: PCP Name: Tierra Juan RN Position: [facility] SN RN Member Role: Primary Care Nurse Name: Veena Arthur RN Position: [facility] RN Member Role: Primary Care Nurse Name: Ashlyn Kenney Position: [facility] AMB [place] Member Role: Primary Care Nurse Name: Velia Shepherd RN Position: [facility] RN Member Role: Primary Care Nurse Name: Francoise Whaley RN Position: [facility] Hospital Pre School Teacher Member Role: Primary Care Nurse Name: Elizabeth Chung RN Position: [facility] RN Member Role: Primary Care Nurse Care Team Related Persons Name: OPAL AMBRIZ Address: [address] [address] Name: QUAN LOMBARDO Address: home [address] [place] [address] Name: AMOS LOMBARDO Address: [place] [address]
[2023-12-22] MEDS: iohexoL 350 MG/ML 100 ML INFUS..BTL IV (14:59)
[2023-12-22 15:21] VITALS: BP 108/66; PULSE 68; RESP 18; O2SAT 100
--- NOTE | 2023-12-22 15:28 | PC.NURSE ---
Pt alert/disoriented, unk place and uncertain about date. Reports ETOH daily and drank 1 pint today, drinks 1/2 pint daily with h/o ETOH withdrawals but denies seizures. States left thigh pain, no obvious deformity or bruising to area. Voiding using urinal.CIWA 1 at this time. 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 VSS. Skin flushed, warm and dry. Reports recent fall but unable to give details pt is poor historian. Takes Eliquis. Reports feeling weaker on left however no unilateral deficit on exam. Speech is clear, smile symmetrical
[2023-12-22 16:09] LABS: Amphetamine Screen Urine Not Detected (Not Detect); Barbiturates, Urine Not Detected (Not Detect); Benzodiazepines Screen Urine Not Detected (Not Detect); Buprenorphine Scr Not Detected (Not Detect); Cannabinoid Screen Urine Not Detected (Not Detect); Cocaine Screen Urine Not Detected (Not Detect); Fentanyl, urine POSITIVE (Not Detect); Methadone Screen, Urine Not Detected (Not Detect); Opiate Screen Urine Not Detected (Not Detect); Oxycodone Screen Urine Not Detected (Not Detect); Phencyclidine Screen Urine Not Detected (Not Detect)
[2023-12-22 17:37] LABS: Ethanol 244 mg/dL
[2023-12-22 17:40] VITALS: BP 115/68; PULSE 87; RESP 12; TEMP 36.6; O2SAT 98
--- NOTE | 2023-12-22 18:23 | MHC.EDTECH ---
Addendum entered by Monica Ford 12/22/23 19:28: Called [facility] once again @1922, spoke to Jaz and was informed that they are currently down and are very backed up. Addendum entered by Monica Ford 12/22/23 18:27: *initial call at 1515 Not 115 Called back @1753 to check on reads as they are waiting on them for patient tx. Call went to [facility]. Called again @1759 but call went to [facility]. Left message with name & number. Original Note: Called [facility] @115 to check on the status of some ct reads.
--- NOTE | 2023-12-22 18:40 | PC.NURSE ---
No neuro changes at this time, [facility] called x 3 to inquire about results
[2023-12-22 18:41] VITALS: BP 103/57; PULSE 77; RESP 20; O2SAT 97
[2023-12-22] MEDS: Nicotine 21 MG PATCH.TD24 TRANSDERMA (19:53)
[2023-12-22] MEDS: LORazepam 1 MG TABLET 2 MG PO (19:54)
[2023-12-22 20:25] VITALS: BP 133/69; PULSE 81; RESP 16; TEMP 37.1; O2SAT 96
[2023-12-22 22:39] VITALS: BP 156/72; PULSE 102; RESP 18; TEMP 36.9; O2SAT 97
[2023-12-23 01:05] VITALS: BP 143/85; PULSE 81; RESP 16; TEMP 37.2; O2SAT 96
[2023-12-23 01:54] VITALS: BP 143/85; PULSE 81; RESP 16; TEMP 37.2; O2SAT 96
== END 2023-12-23 02:00 | disposition home or self-care (01) ==
PROVIDERS: Physician Assistant; Emergency Provider Emergency Medicine Emergency Medical Services
DX: S06.30AA Unspecified focal traumatic brain injury with loss of consciousness status unknown, initial encounter (principal); X58.XXXA Exposure to other specified factors, initial encounter; Y93.9 Activity, unspecified; Y92.9 Unspecified place or not applicable; Y99.9 Unspecified external cause status; R40.4 Transient alteration of awareness; I10 Essential (primary) hypertension
CPT/HCPCS: 36415; 70450; 71260; 72125; 73552; 74177; 80053; 80307; 83690; 83735; 85025; 85610; 99284; 99285; Q9967

== ENCOUNTER 2023-12-23 18:48 | Emergency (ER) | payer MEDICAID, SELFPAY ==
--- NOTE | ~2023-12-23 | CT_ITS ---
EXAMINATION: CT HEAD WITHOUT CONTRAST CLINICAL INFORMATION: Trauma. COMPARISON: CT head dated 12/22/2023. TECHNIQUE: Contiguous axial imaging was performed from the skull base to vertex without intravenous administration of contrast. This CT examination was performed using dose optimization techniques as appropriate, variously including the following: *Automated exposure control *Adjustment of mA and/or kV according to patient size (this includes techniques or standardized protocols for targeted exams where dose is matched to indication/reason for exam; i.e. extremities or head) *Use of iterative reconstruction technique DLP: 1011 mGy-cm FINDINGS: There is no acute intracranial hemorrhage. There is no evidence of acute/subacute cerebral or cerebellar infarction. There is no midline shift. There is a partially calcified hyperdense extra-axial lesion along the left posterior frontal convexity measuring 1.1 x 1.3 cm. There is no extra-axial fluid collection. The ventricles are normal in size. The orbits are symmetric and within normal limits. The calvarium is intact. There is mild mucosal disease within the posterior aspect of the left maxillary sinus. The nasal septum is markedly deviated towards the right side. The mastoid air cells are clear. CT/CT head/brain wo IV con IMPRESSION: No acute intracranial pathology.
--- NOTE | ~2023-12-23 | CT_ITS ---
EXAMINATION: CT CERVICAL SPINE WITHOUT CONTRAST CLINICAL INFORMATION: Trauma. COMPARISON: CT cervical spine from 12/22/2023. TECHNIQUE: Multidetector helical imaging of the cervical spine was obtained without intravenous contrast. Multiple axial reformats and coronal/sagittal reconstructions were created the technologist workstation for review. This CT examination was performed using dose optimization techniques as appropriate, variously including the following: *Automated exposure control. *Adjustment of mA and/or kV according to patient size (this includes techniques or standardized protocols for targeted exams where dose is matched to indication/reason for exam; i.e. extremities or head). *Use of iterative reconstruction technique. DLP: 271 mGy-cm FINDINGS: The atlantooccipital and atlantoaxial articulations remain well aligned. Moderate degenerative arthropathy of the atlantodental articulation. Straightening of the normal cervical lordosis. Otherwise, there is anatomic alignment of the vertebral bodies and posterior elements. No evidence of acute fracture or subluxation. The vertebral body heights are maintained. Advanced degenerative disc disease from C3-C6 with associated disc-osteophyte complex formation. Moderate degenerative disc from C6-T1. There appears to be at least mild spinal canal stenosis from C3-C6. Facet and uncovertebral joint arthropathy leads to osseous encroachment on the neural foramina from C3-C6. There is no prevertebral soft tissue swelling. The thyroid gland and remaining cervical soft tissues are within normal limits. The lung apices demonstrate no abnormalities. CT/CT cervical spine wo IV con IMPRESSION: 1. No evidence of acute fracture or traumatic subluxation of the cervical spine. 2. Moderate multilevel degenerative spondyloarthropathy of the cervical spine. Most notably on this limited exam without intrathecal contrast, there appears to be at least mild spinal canal stenosis from C3-C6.
[2023-12-23 19:01] VITALS: BP 100/63; BP 98/62; PULSE 101; PULSE 106; RESP 16; TEMP 36.7; O2SAT 92; BMI 22.2
[2023-12-23 19:16] VITALS: BP 117/70; PULSE 99; RESP 16; TEMP 36.5; O2SAT 90
[2023-12-23 19:27] LABS: MANUAL DIFF FLAG NO
[2023-12-23 19:44] LABS: Basophils Absolute Auto 0.1 X10*3/uL (0.0-0.2); Basophils Percent Auto 0.6 % (0-2); Eosinophils Absolute Auto 0.2 X10*3/uL (0.0-0.4); Eosinophils Percent Auto 1.2 % (0-4); Hematocrit 34.9 % (42.0-52.0); Hemoglobin 11.6 g/dl (14.0-18.0); Imm Gran Abs Auto 0.12 X10*3/uL (0.00-0.03); Imm Gran Pct Auto 0.8 % (0.0-0.4); Lymphocytes Absolute Auto 4.2 X10*3/uL (1.2-4.9); Lymphocytes Percent Auto 29.2 % (20-40); Mean Corpuscular HGB Conc 33.2 g/dl (31.0-36.0); Mean Corpuscular Hemoglobin 27.5 pg (27.0-33.0); Mean Corpuscular Volume 82.7 fL (80.0-98.0); Mean Platelet Volume 9.6 fL (9.4-12.4); Monocytes Absolute Auto 0.9 X10*3/uL (0.1-1.2); Monocytes Percent Auto 5.9 % (2-11); Neutrophils Absolute Auto 8.9 x10*3/uL (2.0-8.3); Neutrophils Percent Auto 62.3 % (45-73); Platelet Count 281 X10*3/uL (160-400); Red Blood Count 4.22 X10*6/uL (4.60-5.80); Red Cell Distribution Width 15.6 % (11.0-16.0); White Blood Count 14.3 X10*3/uL (4.8-10.8)
[2023-12-23 19:50] LABS: Alanine Aminotransferase 9 U/L (0-40); Albumin Level 3.9 g/dL (3.5-5.0); Alkaline Phosphatase 132 U/L (39-117); Anion Gap 15 (12-20); Aspartate Amino Transferase 11 U/L (5-37); Bilirubin Total 0.2 mg/dL (0.0-1.0); Blood Urea Nitrogen 16 mg/dL (9-16); Calcium 8.6 mg/dL (8.4-10.2); Carbon Dioxide 24 mmol/L (22-29); Chloride 104 mmol/L (96-108); Creatinine Clr Calc Pharmacy 103.5; Estimated Glomerular Filt Rate > 60; Ethanol 348 mg/dL; Glucose Random 118 mg/dL (60-115); Magnesium 2.1 mg/dL (1.6-2.6); Potassium 3.1 mmol/L (3.3-5.1); Sodium 140 mmol/L (135-145); Total Protein 6.9 g/dL (6.5-8.0)
[2023-12-23 21:34] VITALS: BP 120/74; PULSE 86; RESP 16; TEMP 36.1; O2SAT 90
--- NOTE | 2023-12-23 22:57 | ED.FALL ---
HPI - Fall General Chief Complaint: Fall Stated Complaint: fall w/ head strike, ETOH Time Seen by Provider: 12/23/23 18:56 Source: patient Mode of arrival: EMS History of Present Illness ED Provider: Hipolito PAYNE Narrative: 58-year-old male with history of alcohol use disorder presents after a fall at home. Patient states he arrived home, was getting out of his vehicle and he fell hitting his head on the ground. Patient called for assistance to the home. Per EMS, the patient admits to drinking overnight, he was ambulatory on scene. Patient has no physical concerns complaints at this time, he has also not offering further details about events that transpired overnight. Related Data Previous Rx's ?Medication ?Instructions ?Recorded acamprosate 333 mg tablet,delayed 666 mg (2 x 333 mg) PO TID 30 days 09/15/23 release #180 tabs apixaban 5 mg tablet (Eliquis) 5 mg PO BID 30 days #60 tabs 09/15/23 food supplemt, lactose-reduced 1 ea PO BID 30 days #5,688 mL 09/15/23 (Ensure oral liquid) hydroxyzine HCl 25 mg tablet 25 mg PO TID 30 days #90 tabs 09/15/23 lisinopril 10 mg tablet 10 mg PO DAILY 30 days #30 tabs 09/15/23 methadone 10 mg/mL oral 45 mg (4.5 mL) PO DAILY #0 mL 09/15/23 concentrate (Methadose) nicotine (polacrilex) 2 mg gum 4 mg buccal Q2H PRN Nicotine 09/15/23 Cravings 30 days #100 ea omeprazole 20 mg capsule,delayed 20 mg PO DAILY@0630 30 days #30 09/15/23 release caps sertraline 50 mg tablet 50 mg PO DAILY 30 days #30 tabs 09/15/23 acetaminophen 325 mg capsule 325 mg PO QID PRN pain 7 days #28 12/23/23 (Tylenol) caps Allergies Allergy/AdvReac Type Severity Reaction Status Date / Time bee pollen [BEE STINGS] Allergy Severe SWELLING Verified 12/23/23 19:05 Review of Systems Review of Systems: Unable to obtain as patient is intoxicated and being uncooperative PMFSH Past Medical History Attestation statement: The following information was validated with the patient. Medical History Substance abuse EtOH dependence Hypertension Surgical History Hx of endoscopy History of total right hip replacement Family History Family History Father Stomach cancer Social History Social History Household Members: None Housing: Homeless Do you presently have visiting nurse or other home services: No Alcohol intake: current Alcohol intake frequency: 3 or more drinks per day Alcohol type: hard liquor Comment: 1:1 Patient Tobacco Use Status: Current everyday Tobacco user Tobacco use type: Cigarette Cigarettes Per Day: 5 Years Smoked: 20 e-Cigarette/Vaping Use: Never Used Second Hand Smoke Exposure: Yes Substance Use Type: Heroin Advance Directives: No Advance Directives Information Provided: No service: No Current occupational status: unemployed Sexual orientation: Straight/Heterosexual Physical Exam Vital Signs: Vital Signs: Last Vital Signs Temp 97.1 F 12/24/23 00:50 Pulse 89 12/24/23 00:50 Resp 18 12/24/23 00:50 BP 157/90 H 12/24/23 00:50 Pulse Ox 98 12/24/23 00:50 O2 Del Method Room Air 12/24/23 00:50 BMI result Body Mass Index 22.2 Const: Other: Eyes closed in bed, will not speak and answer questions, with sternal rub, he forcefully pushes my hands away no signs of head trauma on exam HEENT: Other: Alcohol halitosis Eyes: Pupils: Equal, round and reactive pupils present Resp: Other: Nonlabored respiration Cardio: Other: Normal peripheral perfusion Skin: Other: No rash Neuro: Other: No focal neuro deficits, intoxicated Cranial nerves: Yes Equal, round and reactive pupils present Extrem: Other: Will be all extremities independently no deformities noted Psych: Other: Intoxicated, uncooperative Medications Administered Discontinued Medications Generic Name Dose Route Start Last Admin Trade Name Freq PRN Reason Stop Dose Admin Metoclopramide HCl 10 mg 12/23/23 23:05 12/23/23 23:15 Metoclopramide Hcl 10 Mg/2 Ml Vial IM 12/23/23 23:06 10 mg ONCE ONE Administration Potassium Chloride 40 meq 12/23/23 23:05 12/24/23 00:31 Potassium Chloride Packet 20 Meq Packet PO 12/23/23 23:06 40 meq ONCE ONE Administration Medical Decision Making Medical Decision Making MDM Narrative: 58-year-old male with history of alcohol use disorder presents after a fall at home. Patient states he arrived home, was getting out of his vehicle and he fell hitting his head on the ground. Patient called for assistance to the home. Per EMS, the patient admits to drinking overnight, he was ambulatory on scene. Patient has no physical concerns complaints at this time, he has also not offering further details about events that transpired overnight. Problem: Alcohol abuse History: Per patient and EMS, history from patient is extremely limited I have considered the following differential diagnoses: Intracranial hemorrhage, cervical spine injury, alcohol intoxication/drug intoxication, decompensated psychiatric illness Plan: Patient clearly intoxicated, he has an unreliable historian, we will be scanning his head and neck. We will be screening basic labs, serum ethanol and U tox. He has had suicidal ideation in the past, he may require a behavioral health assessment once he is clinically sober. He will require reassessment. I have independently reviewed the following tests: Labs: Slight leukocytosis, stable anemia, potassium subtly low at 3.1, magnesium 2.1, serum ethanol 348, U tox pending CT head:EXAMINATION: CT HEAD WITHOUT CONTRAST CLINICAL INFORMATION: Trauma. COMPARISON: CT head dated 12/22/2023. TECHNIQUE: Contiguous axial imaging was performed from the skull base to vertex without intravenous administration of contrast. This CT examination was performed using dose optimization techniques as appropriate, variously including the following: *Automated exposure control *Adjustment of mA and/or kV according to patient size (this includes techniques or standardized protocols for targeted exams where dose is matched to indication/reason for exam; i.e. extremities or head) *Use of iterative reconstruction technique DLP: 1011 mGy-cm FINDINGS: There is no acute intracranial hemorrhage. There is no evidence of acute/subacute cerebral or cerebellar infarction. There is no midline shift. There is a partially calcified hyperdense extra-axial lesion along the left posterior frontal convexity measuring 1.1 x 1.3 cm. There is no extra-axial fluid collection. The ventricles are normal in size. The orbits are symmetric and within normal limits. The calvarium is intact. There is mild mucosal disease within the posterior aspect of the left maxillary sinus. The nasal septum is markedly deviated towards the right side. The mastoid air cells are clear. CT/CT head/brain wo IV con IMPRESSION: No acute intracranial pathology. CT cervical spine:[facility] [address] [place] [address] CT Scan Report Signed Patient: Yoshi Porter MR#: [id number] : 1965 Acct:[id number] Age/Sex: 58 / M ADM Date: 12/23/23 Loc: HO.ED Attending Dr: Ordering Physician: Estephania Mcmillan Date of Service: 12/23/23 Procedure(s): CT cervical spine wo IV con Accession Number(s): [id number] cc: Estephania Mcmillan; Physician,Unknown ~ EXAMINATION: CT CERVICAL SPINE WITHOUT CONTRAST CLINICAL INFORMATION: Trauma. COMPARISON: CT cervical spine from 12/22/2023. TECHNIQUE: Multidetector helical imaging of the cervical spine was obtained without intravenous contrast. Multiple axial reformats and coronal/sagittal reconstructions were created the technologist workstation for review. This CT examination was performed using dose optimization techniques as appropriate, variously including the following: *Automated exposure control. *Adjustment of mA and/or kV according to patient size (this includes techniques or standardized protocols for targeted exams where dose is matched to indication/reason for exam; i.e. extremities or head). *Use of iterative reconstruction technique. DLP: 271 mGy-cm FINDINGS: The atlantooccipital and atlantoaxial articulations remain well aligned. Moderate degenerative arthropathy of the atlantodental articulation. Straightening of the normal cervical lordosis. Otherwise, there is anatomic alignment of the vertebral bodies and posterior elements. No evidence of acute fracture or subluxation. The vertebral body heights are maintained. Advanced degenerative disc disease from C3-C6 with associated disc-osteophyte complex formation. Moderate degenerative disc from C6-T1. There appears to be at least mild spinal canal stenosis from C3-C6. Facet and uncovertebral joint arthropathy leads to osseous encroachment on the neural foramina from C3-C6. There is no prevertebral soft tissue swelling. The thyroid gland and remaining cervical soft tissues are within normal limits. The lung apices demonstrate no abnormalities. CT/CT cervical spine wo IV con IMPRESSION: 1. No evidence of acute fracture or traumatic subluxation of the cervical spine. 2. Moderate multilevel degenerative spondyloarthropathy of the cervical spine. Most notably on this limited exam without intrathecal contrast, there appears to be at least mild spinal canal stenosis from C3-C6. Patient no vomiting, we will IM Reglan, and then try to give some oral potassium. Lab Data 12/23/23 19:22 12/23/23 19:22 Labs: Lab Results 12/23/23 12/24/23 Range/Units 19: 00:51 WBC 14.3 H (4.8-10.8) X10*3/uL RBC 4.22 L (4.60-5.80) X10*6/uL Hgb 11.6 L (14.0-18.0) g/dl Hct 34.9 L (42.0-52.0) % MCV 82.7 (80.0-98.0) fL MCH 27.5 (27.0-33.0) pg MCHC 33.2 (31.0-36.0) g/dl RDW 15.6 (11.0-16.0) % Plt Count 281 (160-400) X10*3/uL MPV 9.6 (9.4-12.4) fL Immature Gran % (Auto) 0.8 H (0.0-0.4) % Neut % (Auto) 62.3 (45-73) % Lymph % (Auto) 29.2 (20-40) % [place] % (Auto) 5.9 (2-11) % Eos % (Auto) 1.2 (0-4) % Baso % (Auto) 0.6 (0-2) % Lymph # (Auto) 4.2 (1.2-4.9) X10*3/uL [place] # (Auto) 0.9 (0.1-1.2) X10*3/uL Eos # (Auto) 0.2 (0.0-0.4) X10*3/uL Baso # (Auto) 0.1 (0.0-0.2) X10*3/uL Abs Immat Gran (auto) 0.12 H (0.00-0.03) X10*3/uL Absolute Neuts (auto) 8.9 H (2.0-8.3) x10*3/uL Absolute Nucleated RBC 0.000 (0.0-0.012) X10*3/uL Nucleated RBC % (auto) 0.0 (0.0-0.2) /100WBC Sodium 140 (135-145) mmol/L Potassium 3.1 L (3.3-5.1) mmol/L Chloride 104 (96-108) mmol/L Carbon Dioxide 24 (22-29) mmol/L Anion Gap 15 (12-20) BUN 16 (9-16) mg/dL Creatinine 0.74 (0.5-1.4) mg/dL Estim Creat Clear Calc 103.5 Estimated GFR > 60 Random Glucose 118 H (60-115) mg/dL Calcium 8.6 D (8.4-10.2) mg/dL Magnesium 2.1 (1.6-2.6) mg/dL Total Bilirubin 0.2 (0.0-1.0) mg/dL AST 11 (5-37) U/L ALT 9 (0-40) U/L Alkaline Phosphatase 132 H (39-117) U/L Total Protein 6.9 (6.5-8.0) g/dL Albumin 3.9 (3.5-5.0) g/dL Urine Opiates Screen Not Detected (Not Detect) Ur Buprenorphine Scrn Not Detected (Not Detect) ng/mL Ur Oxycodone Screen Not Detected (Not Detect) ng/mL Urine Methadone Screen Not Detected (Not Detect) ng/mL Urine Fentanyl Screen POSITIVE H (Not Detect) Ur Barbiturates Screen Not Detected (Not Detect) Ur Phencyclidine Scrn Not Detected (Not Detect) Ur Amphetamines Screen Not Detected (Not Detect) U Benzodiazepines Scrn Not Detected (Not Detect) Urine Cocaine Screen Not Detected (Not Detect) U Marijuana (THC) Screen Not Detected (Not Detect) Ethyl Alcohol 348 H* mg/dL Discharge Plan Discharge Clinical Impression: Alcohol intoxication Patient Disposition: Home, Self-Care Instructions: Abuse of Alcohol (ED) Additional Instructions: You were seen in the emergency department overnight after sustaining yet another fall in the setting of being intoxicated. CT scans of your head and neck were obtained, there was no acute injury. Your blood alcohol level was significantly elevated, you are monitored in the emergency department for your safety until you were clinically sober. Follow-up with your primary care provider as needed Prescriptions: No Action nicotine (polacrilex) 2 mg Gum 4 mg buccal Q2H PRN (Reason: Nicotine Cravings) 30 Days Qty: 100 0RF omeprazole 20 mg Capsule,Delayed Release(Dr/Ec) 20 mg PO DAILY@0630 30 Days Qty: 30 0RF methadone [Methadose] 10 mg/mL Concentrate 45 mg PO DAILY Qty: 0 0RF Rx Instructions: Partial Fill upon patient request. sertraline 50 mg Tablet 50 mg PO DAILY 30 Days Qty: 30 0RF acamprosate 333 mg Tablet,Delayed Release (Dr/Ec) 666 mg PO TID 30 Days Qty: 180 0RF lisinopril 10 mg tablet 10 mg PO DAILY 30 Days Qty: 30 0RF hydroxyzine HCl 25 mg tablet 25 mg PO TID 30 Days Qty: 90 0RF Eliquis 5 mg tablet 5 mg PO BID 30 Days Qty: 60 0RF Ensure Liquid 1 ea PO BID 30 Days Qty: 5688 2RF acetaminophen [Tylenol] 325 mg capsule 325 mg PO QID PRN (Reason: pain) 7 Days Qty: 28 0RF Print Language: Bengali
[2023-12-23 23:13] VITALS: BP 138/85; PULSE 87; RESP 14; TEMP 36.4; O2SAT 95
[2023-12-23] MEDS: Metoclopramide HCl 10 MG/2 ML VIAL IM (23:15)
[2023-12-24] MEDS: Potassium Chloride Packet 20 MEQ PACKET 40 MEQ PO (00:31)
[2023-12-24 00:50] VITALS: BP 157/90; PULSE 89; RESP 18; TEMP 36.2; O2SAT 98
[2023-12-24 01:10] LABS: Amphetamine Screen Urine Not Detected (Not Detect); Barbiturates, Urine Not Detected (Not Detect); Benzodiazepines Screen Urine Not Detected (Not Detect); Buprenorphine Scr Not Detected (Not Detect); Cannabinoid Screen Urine Not Detected (Not Detect); Cocaine Screen Urine Not Detected (Not Detect); Fentanyl, urine POSITIVE (Not Detect); Methadone Screen, Urine Not Detected (Not Detect); Opiate Screen Urine Not Detected (Not Detect); Oxycodone Screen Urine Not Detected (Not Detect); Phencyclidine Screen Urine Not Detected (Not Detect)
[2023-12-24 01:47] VITALS: BP 157/90; PULSE 89; RESP 18; TEMP 36.2; O2SAT 98
== END 2023-12-24 01:57 | disposition home or self-care (01) ==
PROVIDERS: Physician Assistant Medical; Emergency Provider Internal Medicine
DX: F10.229 Alcohol dependence with intoxication, unspecified (principal); Y90.8 Blood alcohol level of 240 mg/100 ml or more; I10 Essential (primary) hypertension; Z91.81 History of falling
CPT/HCPCS: 36415; 51701; 70450; 72125; 80053; 80307; 83735; 85025; 96372; 99284; J2765

== ENCOUNTER 2023-12-24 10:27 | Inpatient (IN) | payer MEDICAID, SELFPAY ==
[2023-12-24] VITALS (11 sets, daily range): BP systolic 128–186; BP diastolic 67–101; PULSE 88–106; RESP 13–20; TEMP 36.6–37.6; O2SAT 95–100; BMI 22.3
--- NOTE | ~2023-12-24 | XR_ITS ---
EXAMINATION: XR CHEST CLINICAL INFORMATION: Cough and leukocytosis; question aspiration. COMPARISON: CT chest dated 12/22/2023; chest radiograph dated 09/07/2023. TECHNIQUE: Frontal and lateral views of the chest were obtained. FINDINGS: The heart, great vessels, pulmonary vasculature and mediastinum are normal. There is atherosclerotic calcification of the aortic knob. The lungs show no focal infiltrate, effusion or pneumothorax. There is no acute osseous abnormality. There are old, healed right rib fractures, and intact orthopedic hardware is applied to several right ribs. XR/XR chest 2V IMPRESSION: No active cardiopulmonary disease.
--- NOTE | ~2023-12-24 | XR_ITS ---
EXAMINATION: XR FEMUR, LEFT CLINICAL INFORMATION: Left lower extremity pain. COMPARISON: 12/22/2023 TECHNIQUE: AP and lateral views of the left femur were obtained. FINDINGS: Left hip cartilage space is preserved. Left lateral acetabular subchondral bony sclerosis. No change in orthopedic hardware comprised of femoral intramedullary nail, 2 oblique screws extending into the femoral head and neck and a distal interlocking screw. No periprosthetic lucency or fracture. Stable mildly displaced fracture of the lesser trochanter, medial aspect of the base of the femoral neck and intertrochanteric region. XR/XR femur LT 2V IMPRESSION: Stable examination.
--- NOTE | ~2023-12-24 | CT_ITS ---
EXAMINATION: GI bleed abdomen and pelvis with and without IV contrast CLINICAL INFORMATION: Dark vomit, nausea and vomiting COMPARISON: Previous CT of the abdomen and pelvis 12/22/2023 TECHNIQUE: Axial images through the abdomen and pelvis without IV contrast followed by two-phase imaging following 85 mL Omnipaque 350 IV contrast. Sagittal and coronal reconstructions on the technologist workstation were performed. This CT examination was performed using dose optimization techniques as appropriate, variously including the following: *Automated exposure control *Adjustment of mA and/or kV according to patient size (this includes techniques or standardized protocols for targeted exams where dose is matched to indication/reason for exam; i.e. extremities or head) *Use of iterative reconstruction technique DLP 127 8 mg/cm FINDINGS: The lung bases are clear. The liver, gallbladder, spleen, pancreas, adrenal glands and right kidney are all unremarkable. There is a 2 cm cyst in the upper pole of the left kidney. No imaging follow-up recommended. Bladder not visualized well due to artifact from right hip replacement. There is wall thickening and wall edema of the distal thoracic esophagus. There may be a small amount of adjacent paraesophageal fluid. This finding is new or increased from 12/22/2023 exam. No abnormal air in the posterior mediastinum is seen. The stomach is dilated and fluid-filled. No evidence of active GI bleeding is seen. There is mild diverticulosis of the colon. Small and large bowel is otherwise normal. The appendix is normal. No ascites or free air is seen. There is atherosclerotic disease. Small umbilical hernia. Prostate gland not well visualized due to artifact from right hip replacement. Old moderate L1 vertebral body compression fracture and right iliac crest fracture similar to recent exam. Stable postsurgical changes to the lumbar spine. No acute fracture. CT/CT gi bleed abd pel wo/w IVcon IMPRESSION: No evidence of active GI bleeding. Wall thickening and edema of the distal thoracic esophagus and small amount of surrounding fluid. This is a new or increased finding from recent exam. Dilated fluid-filled stomach. Other stable findings from recent exam.
--- NOTE | ~2023-12-24 | CT_ITS ---
EXAMINATION: CT CERVICAL SPINE WITHOUT CONTRAST CLINICAL INFORMATION: Fall COMPARISON: Previous cervical spine CT 12/23/2023 TECHNIQUE: Axial images through the cervical spine without IV contrast. Sagittal and coronal re-constructions. This CT examination was performed using dose optimization techniques as appropriate, variously including the following: *Automated exposure control *Adjustment of mA and/or kV according to patient size (this includes techniques or standardized protocols for targeted exams where dose is matched to indication/reason for exam; i.e. extremities or head) *Use of iterative reconstruction technique DLP: 319 mGy-cm FINDINGS: Bone alignment is normal. No fracture or dislocation. Degenerative spondylosis from C3-C4 to C6-C7. Disc space narrowing at C3-C4 to C5-C6. Degenerative changes at the C1 dens articulation. Mild facet arthritis. Prevertebral soft tissues are normal. Bilateral carotid calcification. Visualized lung apices are clear. CT/CT cervical spine wo IV con IMPRESSION: Degenerative changes. No fracture or dislocation. Fleischner guidelines were followed.
--- NOTE | ~2023-12-24 | CT_ITS ---
EXAMINATION: CT HEAD WITHOUT CONTRAST CLINICAL INFORMATION: Trauma COMPARISON: Previous head CT most recent from yesterday TECHNIQUE: Contiguous axial imaging was performed from the skull base to vertex without intravenous administration of contrast. This CT examination was performed using dose optimization techniques as appropriate, variously including the following: *Automated exposure control *Adjustment of mA and/or kV according to patient size (this includes techniques or standardized protocols for targeted exams where dose is matched to indication/reason for exam; i.e. extremities or head) *Use of iterative reconstruction technique DLP: 656 mGy-cm FINDINGS: There is no evidence of an extra-axial collection. There is no evidence of intra or extra-axial hemorrhage. The ventricles and extra-axial CSF spaces are appropriate. Gaines-white matter differentiation is normal. There is an extra-axial high attenuation lesion adjacent to the left frontal lobe near the that is partially calcified. This measures 1.3 cm and is similar to previous exam. This probably represents a meningioma. Old right basal ganglia lacunar infarct unchanged. No other mass, mass effect or acute infarct. No skull fracture. Visualized sinuses mastoid air cells and middle ears are clear. CT/CT head/brain wo IV con IMPRESSION: No acute findings. No change from previous exams.
[2023-12-24] MEDS: Magnesium Hydrox/Alum Hydrox 30 ML ORAL.SUSP PO (11:16)
[2023-12-24] MEDS: lisinopriL 10 MG TABLET PO (11:16)
[2023-12-24] MEDS: Omeprazole 20 MG CAPSULE.DR PO (11:16)
--- NOTE | 2023-12-24 11:48 | PC.NURSE ---
pt states he feels nausea, medicated with zofran. pt is tolerating po intake
--- NOTE | 2023-12-24 12:00 | PC.NURSE ---
pt vomiting small amounts of stomach contents, which has dark blood tinge vomit.
--- NOTE | 2023-12-24 12:05 | ECG_ITS ---
Test Reason : CHEST PAIN Blood Pressure : / mmHG Vent. Rate : 098 BPM Atrial Rate : 098 BPM P-R Int : 128 ms QRS Dur : 088 ms QT Int : 358 ms P-R-T Axes : 018 -19 001 degrees QTc Int : 457 ms Normal sinus rhythm Normal ECG When compared with ECG of 07-SEP-2023 11:07, Criteria for Septal infarct are no longer Present T wave inversion now evident in Inferior leads Referred By: Miya Zurita Electronically Signed By:KAREN AGOSTO
--- NOTE | 2023-12-24 12:11 | ED_ITS ---
HPI - General Adult General Chief complaint: Extremity Injury, Lower Stated complaint: FELL 2 DAYS AGO, 1010 FEMUR PAIN PER EMS Time Seen by Provider: 12/24/23 10:42 Source: patient and RN notes reviewed Mode of arrival: ambulatory Limitations: no limitations History of Present Illness ED Provider: Miya Zurita PA-C HPI narrative: This is a 58-year-old male, with a history of alcohol use disorder and hypertension, hx of PE on eliquis (has not taken any AC in at least 4 days), who presents emergency department via EMS due to left leg pain. Patient refused to interact with me during my 1st encounter as he was reporting gastritis like pain and demanded Maalox and Prilosec as he did not take any medications prior to his arrival. Patient has been seen here yesterday as well as the day prior. He states that today he tripped over his dog which caused him to fall onto the ground this morning. He is unsure if he hit his head or lost consciousness. He was seen on December 21 which revealed a mild trochanter femur fracture, and was told to be nonweightbearing per Orthopedics. He has been weight-bearing on this leg. He also was seen in the emergency department last night after a fall. At that time he had a head CT and C-spine CT which were unremarkable. Today, patient reports that he developed gastritis pain while he was waiting for the ambulance to come. He did not take his daily medications including Prilosec and lisinopril. He is endorsing nausea. States that he recently relapsed on alcohol, states that he drank half a qt of hard liquor yesterday. He denies chest pain or shortness of breath. He states that he has not taken his eliquis in over 4 days. No other complaints or concerns at this time. MD complaint: Leg pain, nausea Onset (ago): day(s) Relieving factors: none Exacerbating factors: none Associated symptoms: denies other symptoms Treatments prior to arrival: none Related Data Home Medications ?Medication ?Instructions ?Recorded ?Confirmed epinephrine 0.3 mg/0.3 mL IM DIRECTED 12/24/23 injection, auto-injector folic acid 1 mg tablet 1 mg QAM 12/24/23 melatonin 3 mg tablet 6 mg PO BEDTIME 12/24/23 oxycodone 5 mg tablet 5 mg PO Q6H PRN severe pain 12/24/23 pyridoxine (vitamin B6) 50 mg 50 mg DAILY 12/24/23 tablet (Vitamin B-6) thiamine HCl (vitamin B1) 100 mg 100 mg QAM 12/24/23 tablet Previous Rx's ?Medication ?Instructions ?Recorded acamprosate 333 mg tablet,delayed 666 mg (2 x 333 mg) PO TID 30 days 09/15/23 release #180 tabs apixaban 5 mg tablet (Eliquis) 5 mg PO BID 30 days #60 tabs 09/15/23 food supplemt, lactose-reduced 1 ea PO BID 30 days #5,688 mL 09/15/23 (Ensure oral liquid) hydroxyzine HCl 25 mg tablet 25 mg PO TID 30 days #90 tabs 09/15/23 lisinopril 10 mg tablet 10 mg PO DAILY 30 days #30 tabs 09/15/23 methadone 10 mg/mL oral 45 mg (4.5 mL) PO DAILY #0 mL 09/15/23 concentrate (Methadose) nicotine (polacrilex) 2 mg gum 4 mg buccal Q2H PRN Nicotine 09/15/23 Cravings 30 days #100 ea omeprazole 20 mg capsule,delayed 20 mg PO DAILY@0630 30 days #30 09/15/23 release caps sertraline 50 mg tablet 50 mg PO DAILY 30 days #30 tabs 09/15/23 acetaminophen 325 mg capsule 325 mg PO QID PRN pain 7 days #28 12/23/23 (Tylenol) caps Allergies Allergy/AdvReac Type Severity Reaction Status Date / Time bee pollen [BEE STINGS] Allergy Severe SWELLING Verified 12/24/23 10:51 Review of Systems 2 Review of Systems: Yes all other systems are reviewed and are negative Constitutional: Constitutional: Reports as per HPI [facility] Past Medical History Medical History Substance abuse EtOH dependence Hypertension Surgical History Hx of endoscopy History of total right hip replacement Family History Family History Father Stomach cancer Social History Social History Household Members: None Housing: Homeless Do you presently have visiting nurse or other home services: No Alcohol intake: current Alcohol intake frequency: 3 or more drinks per day Alcohol type: beer and hard liquor Comment: 1:1 Patient Tobacco Use Status: Current everyday Tobacco user Tobacco use type: Cigarette Cigarettes Per Day: 5 Years Smoked: 20 Smoked in Last 30 Days: No e-Cigarette/Vaping Use: Never Used Second Hand Smoke Exposure: Yes Use of substances other than those prescribed or required for medical reasons: No Substance Use Type: Heroin Substance Use Frequency: Chronic Longstanding Last Used Substance: Hours (ago) Any prior treatment program specific to substance use: Yes Advance Directives: No Advance Directives Information Provided: No Do you have a plan to hurt others: No Plan service: No Current occupational status: unemployed Sexual orientation: Straight/Heterosexual Physical Exam ED Vital Signs: Vital Signs - 24 hr 12/24/23 10:48 12/24/23 11:16 12/24/23 12:25 Temperature 97.9 F Pulse Rate 100 94 Respiratory Rate 16 16 Blood Pressure 151/94 H 154/94 H 170/99 H Pulse Oximetry 98 97 Oxygen Delivery Method Room Air Room Air 12/24/23 13:15 12/24/23 14:00 12/24/23 16:09 Temperature 98 F 98.8 F 99.2 F Pulse Rate 88 98 97 Respiratory Rate 16 18 16 Blood Pressure 185/82 H 186/88 H 167/91 H Pulse Oximetry 98 100 95 Oxygen Delivery Method Room Air Room Air Room Air 12/24/23 17:44 12/24/23 18:22 Temperature 99.6 F 99 F Pulse Rate 95 91 Respiratory Rate 16 20 Blood Pressure 148/71 H 149/80 H Pulse Oximetry 96 99 Oxygen Delivery Method Room Air Room Air BMI result Body Mass Index 22.3 Const General: cooperative, comfortable and no acute distress Orientation/consciousness: patient oriented x3 Limitations: no limitations HENMT Head: Yes normal to inspection, Yes normocephalic and Yes atraumatic Ears: hearing grossly normal bilaterally General nose exam: Normal external nose present Face and sinus: Yes normal facial exam Mouth: Normal oral and palatal mucosa present, oropharynx normal and moist mucous membranes Throat: Yes posterior oropharynx normal Eyes General: appearance normal, both eyes and all related structures Eyelids: Yes eyelids normal Conjunctivae: conjunctivae normal Sclerae: sclerae normal Pupils: Equal, round and reactive pupils present EOM: EOMs intact bilaterally Neck Neck: Yes normal visual inspection, Yes full ROM and Yes no lymphadenopathy Lymphatic: no lymphadenopathy noted Chest Chest palpation & inspection: normal inspection of the chest Resp Effort & Inspection: normal respiratory effort and able to speak in complete sentences Auscultation: clear to auscultation bilaterally, no crackles, no rales, no rhonchi and no wheezes Cardio Rate: regular rate Rhythm: regular rhythm Heart sounds: S1 normal heart sound present and S2 normal heart sound present GI Other: Tenderness to palpation in the epigastrium with guarding, no rebound Inspection: Yes normal to inspection Skin General skin exam: no rashes or lesions noted Trauma: no lacerations or abrasions Wounds: no wounds Neuro General: patient oriented x3 and moves all extremities Cranial nerves: Yes Equal, round and reactive pupils present Extrem Other: Patient with tenderness palpation along the anterior thigh, no overlying skin changes, ecchymosis or edema no erythema noted. Strong DP pulse. Decreased strength in the left lower extremity secondary to pain General: Yes normal to inspection Right upper extremity: normal to inspection Left upper extremity: normal to inspection Right lower extremity: normal to inspection Left lower extremity: normal to inspection Course Reevaluation(s) Reevaluation #1: Dr. Carl saw patient at bedside who will follow patient. Will place patient on possible scoping tomorrow. Patient did have an EGD for evaluation of dysphagia which showed a ulceration with signs of esophagitis. CT still pending at this time Time: 14:57 Reevaluation #2: CT head and neck revealing no acute change. Patient does have a slight leukocytosis 18.3, hypokalemia 3.1, BUN 21, creatinine at his baseline. Leukocytosis likely reactive due to retching after getting blood work. Slight hyperglycemia at 144 and elevated alk phos at 143 His liver enzymes are within normal limits. CT of the abdomen reveals no active GI bleeding. There is wall thickening and edema of the distal thoracic esophagus with small amount of surrounding fluid. This is a new or increased finding from previous examination. There is a dilated fluid-filled stomach. Forwarded results to Dr. Carl. Will discuss with hospitalist for admission. Time: 16:59 Reevaluation #3: Spoke to Dr. Rocha, hospitalist, who would like me to review CT scan with Dr. Carl to ensure no question perforation at this time. Patient has been resting comfortably, no additional episodes of hematemesis. Vital signs stable. Will continue to monitor pending admission Time: 18:04 Additional Reevaluation(s): Dr Carl reviewed images, who does not report any perforation seen on images. Pt will be admitted to the hospitalist team. Repeat CBC, BMP ordered. Medications Administered Discontinued Medications Generic Name Dose Route Start Last Admin Trade Name Kristi PRN Reason Stop Dose Admin Al Hydroxide/Mg Hydroxide 30 ml 12/24/23 10:52 12/24/23 11:16 Magnesium Hydrox/Alum Hydrox 30 Ml Oral.Susp PO 12/24/23 10:53 30 ml ONCE ONE Administration Hydromorphone HCl 1 mg 12/24/23 18:17 12/24/23 18:31 Hydromorphone Hcl 1 Mg/Ml Syringe IVPUSH 12/24/23 18:18 1 mg ONCE ONE Administration Protocol Sodium Chloride 1,000 mls @ 999 mls/hr 12/24/23 12:06 12/24/23 14:36 Ns IV 12/24/23 13:06 Infused .Q1H1M ONE Infusion Iohexol 100 ml 12/24/23 15:24 12/24/23 15:24 Iohexol 350 Mg/Ml 100 Ml Infus..Btl IV 12/24/23 15:25 85 ml ONCE ONE Administration Lisinopril 10 mg 12/24/23 10:52 12/24/23 11:16 Lisinopril 10 Mg Tablet PO 12/24/23 10:53 10 mg ONCE ONE Administration Protocol Morphine Sulfate 4 mg 12/24/23 16:37 12/24/23 16:58 Morphine Sulfate 4 Mg/Ml Cartridge IVPUSH 12/24/23 16:38 4 mg ONCE ONE Administration Protocol Omeprazole 20 mg 12/24/23 10:52 12/24/23 11:16 Omeprazole 20 Mg Capsule. PO 12/24/23 10:53 20 mg ONCE ONE Administration Pantoprazole Sodium 80 mg 12/24/23 12:06 12/24/23 12:34 Pantoprazole Sodium 40 Mg/10 Ml Vial IVPUSH 12/24/23 12:07 80 mg ONCE ONE Administration Medical Decision Making Medical Decision Making MDM Narrative: This is a 58-year-old male, with a history of alcohol use disorder and hypertension, who presents emergency department via EMS due to left leg pain. On arrival, patient refuses to interact with me as he was having ?heartburn? and did not take his omeprazole. He states that he would like to get his omeprazole as well as lisinopril as he did not take that today. Upon my reassessment after 30 minutes receiving medications he had two episodes of vomiting with dark, coffee-ground emesis noted. It is likely that he did not absorb the Prilosec therefore will have to remedicate. Concern for GI bleed especially as he abuses alcohol, will obtain labs, EKG, CT abdomen with and without contrast as well as CT head and neck. Given he has been weight-bearing on his left leg with mechanical fall which occurred today, will obtain x-ray for re-evaluation. He has been seen here in the emergency room twice in the last 2 days both for falls and alcohol intoxication. Plan: Labs, EKG, CT head, neck, abdomen and pelvis with and without contrast, IV fluids, Protonix IV. >>1227 - consulted Dr. Carl due to coffee-ground emesis noted. Workup pending. Dr. Carl reporting will follow pt's ER course. Differential Diagnosis Differential Diagnoses: The differential diagnosis associated with the presentation includes Upper GI bleed, lower GI bleed, fracture, esophageal varices Admission/Observation Consideration of admission/observation: Escalation of care including admission/observation considered Patient requiring further admission and observation due to coffee-ground emesis. Consult Healthcare Provider Management of the patient was discussed with: Hospitalist and Check Writer Salesperson Dr. Carl, GI specialist Lab Data MDM Lab Attestation statement: I reviewed the patient's lab results. Patient with leukocytosis at 18.3, normocytic anemia noted with an H&H of 12.8/38.4. Hypokalemia 3.1, BUN 21, creatinine around his baseline. Elevated alk phos at 143. 12/24/23 18:25 12/24/23 18:25 Labs: Lab Results 12/24/23 12/24/23 12/24/23 Range/Units 12:26 13:32 17:15 WBC 18.3 H (4.8-10.8) X10*3/uL RBC 4.67 (4.60-5.80) X10*6/uL Hgb 12.8 L (14.0-18.0) g/dl Hct 38.4 L (42.0-52.0) % MCV 82.2 (80.0-98.0) fL MCH 27.4 (27.0-33.0) pg MCHC 33.3 (31.0-36.0) g/dl RDW 15.7 (11.0-16.0) % Plt Count 288 (160-400) X10*3/uL MPV 9.8 (9.4-12.4) fL Immature Gran % (Auto) 0.8 H (0.0-0.4) % Neut % (Auto) 86.7 H (45-73) % Lymph % (Auto) 7.5 L (20-40) % [place] % (Auto) 4.7 (2-11) % Eos % (Auto) 0.0 (0-4) % Baso % (Auto) 0.3 (0-2) % Lymph # (Auto) 1.4 (1.2-4.9) X10*3/uL [place] # (Auto) 0.9 (0.1-1.2) X10*3/uL Eos # (Auto) 0.0 (0.0-0.4) X10*3/uL Baso # (Auto) 0.1 (0.0-0.2) X10*3/uL Abs Immat Gran (auto) 0.15 H (0.00-0.03) X10*3/uL Absolute Neuts (auto) 15.8 H (2.0-8.3) x10*3/uL Absolute Nucleated RBC 0.000 (0.0-0.012) X10*3/uL Nucleated RBC % (auto) 0.0 (0.0-0.2) /100WBC PT 12.3 (11.1-13.3) SEC INR 1.0 (0.9-1.1) APTT 22.4 L (26.0-36.8) SEC Sodium 143 (135-145) mmol/L Potassium 3.1 L (3.3-5.1) mmol/L Chloride 96 (96-108) mmol/L Carbon Dioxide 34 H (22-29) mmol/L Anion Gap 16 (12-20) BUN 21 H (9-16) mg/dL Creatinine 0.80 (0.5-1.4) mg/dL Estim Creat Clear Calc 102.0 Estimated GFR > 60 Random Glucose 144 H (60-115) mg/dL Calcium 9.9 D (8.4-10.2) mg/dL Magnesium 1.9 (1.6-2.6) mg/dL Total Bilirubin 0.4 (0.0-1.0) mg/dL Direct Bilirubin 0.2 (0.0-0.5) mg/dL AST 12 (5-37) U/L ALT 10 (0-40) U/L Alkaline Phosphatase 143 H (39-117) U/L Troponin I High Sens 4.6 D 8.0 D (<3.5-35.0) ng/L Total Protein 7.5 (6.5-8.0) g/dL Albumin 4.3 (3.5-5.0) g/dL Lipase 61 (8-78) U/L Urine Opiates Screen Not Detected (Not Detect) Ur Buprenorphine Scrn Not Detected (Not Detect) ng/mL Ur Oxycodone Screen Not Detected (Not Detect) ng/mL Urine Methadone Screen Not Detected (Not Detect) ng/mL Urine Fentanyl Screen POSITIVE H (Not Detect) Ur Barbiturates Screen Not Detected (Not Detect) Ur Phencyclidine Scrn Not Detected (Not Detect) Ur Amphetamines Screen Not Detected (Not Detect) U Benzodiazepines Scrn Not Detected (Not Detect) Urine Cocaine Screen Not Detected (Not Detect) U Marijuana (THC) Screen Not Detected (Not Detect) Ethyl Alcohol < 10 mg/dL Blood Type B Positive Antibody Screen NEGATIVE 12/24/23 12/24/23 12/24/23 Range/Units 18:25 18:25 18:25 WBC 17.1 H 17.2 H (4.8-10.8) X10*3/uL RBC 4.04 L 4.06 L (4.60-5.80) X10*6/uL Hgb 11.2 L (14.0-18.0) g/dl Hct (42.0-52.0) % MCV (80.0-98.0) fL MCH (27.0-33.0) pg MCHC (31.0-36.0) g/dl RDW (11.0-16.0) % Plt Count (160-400) X10*3/uL MPV (9.4-12.4) fL Immature Gran % (Auto) (0.0-0.4) % Neut % (Auto) (45-73) % Lymph % (Auto) (20-40) % [place] % (Auto) (2-11) % Eos % (Auto) (0-4) % Baso % (Auto) (0-2) % Lymph # (Auto) (1.2-4.9) X10*3/uL [place] # (Auto) (0.1-1.2) X10*3/uL Eos # (Auto) (0.0-0.4) X10*3/uL Baso # (Auto) (0.0-0.2) X10*3/uL Abs Immat Gran (auto) (0.00-0.03) X10*3/uL Absolute Neuts (auto) (2.0-8.3) x10*3/uL Absolute Nucleated RBC (0.0-0.012) X10*3/uL Nucleated RBC % (auto) (0.0-0.2) /100WBC PT (11.1-13.3) SEC INR (0.9-1.1) APTT (26.0-36.8) SEC Sodium (135-145) mmol/L Potassium (3.3-5.1) mmol/L Chloride (96-108) mmol/L Carbon Dioxide (22-29) mmol/L Anion Gap (12-20) BUN (9-16) mg/dL Creatinine (0.5-1.4) mg/dL Estim Creat Clear Calc Estimated GFR Random Glucose (60-115) mg/dL Calcium (8.4-10.2) mg/dL Magnesium (1.6-2.6) mg/dL Total Bilirubin (0.0-1.0) mg/dL Direct Bilirubin (0.0-0.5) mg/dL AST (5-37) U/L ALT (0-40) U/L Alkaline Phosphatase (39-117) U/L Troponin I High Sens (<3.5-35.0) ng/L Total Protein (6.5-8.0) g/dL Albumin (3.5-5.0) g/dL Lipase (8-78) U/L Urine Opiates Screen (Not Detect) Ur Buprenorphine Scrn (Not Detect) ng/mL Ur Oxycodone Screen (Not Detect) ng/mL Urine Methadone Screen (Not Detect) ng/mL Urine Fentanyl Screen (Not Detect) Ur Barbiturates Screen (Not Detect) Ur Phencyclidine Scrn (Not Detect) Ur Amphetamines Screen (Not Detect) U Benzodiazepines Scrn (Not Detect) Urine Cocaine Screen (Not Detect) U Marijuana (THC) Screen (Not Detect) Ethyl Alcohol mg/dL Blood Type Antibody Screen 12/24/23 12/24/23 12/24/23 Range/Units 18:25 18:25 18:25 WBC (4.8-10.8) X10*3/uL RBC (4.60-5.80) X10*6/uL Hgb 11.1 L (14.0-18.0) g/dl Hct 33.7 L 33.6 L (42.0-52.0) % MCV 83.4 82.8 (80.0-98.0) fL MCH 27.7 (27.0-33.0) pg MCHC (31.0-36.0) g/dl RDW (11.0-16.0) % Plt Count (160-400) X10*3/uL MPV (9.4-12.4) fL Immature Gran % (Auto) (0.0-0.4) % Neut % (Auto) (45-73) % Lymph % (Auto) (20-40) % [place] % (Auto) (2-11) % Eos % (Auto) (0-4) % Baso % (Auto) (0-2) % Lymph # (Auto) (1.2-4.9) X10*3/uL [place] # (Auto) (0.1-1.2) X10*3/uL Eos # (Auto) (0.0-0.4) X10*3/uL Baso # (Auto) (0.0-0.2) X10*3/uL Abs Immat Gran (auto) (0.00-0.03) X10*3/uL Absolute Neuts (auto) (2.0-8.3) x10*3/uL Absolute Nucleated RBC (0.0-0.012) X10*3/uL Nucleated RBC % (auto) (0.0-0.2) /100WBC PT (11.1-13.3) SEC INR (0.9-1.1) APTT (26.0-36.8) SEC Sodium (135-145) mmol/L Potassium (3.3-5.1) mmol/L Chloride (96-108) mmol/L Carbon Dioxide (22-29) mmol/L Anion Gap (12-20) BUN (9-16) mg/dL Creatinine (0.5-1.4) mg/dL Estim Creat Clear Calc Estimated GFR Random Glucose (60-115) mg/dL Calcium (8.4-10.2) mg/dL Magnesium (1.6-2.6) mg/dL Total Bilirubin (0.0-1.0) mg/dL Direct Bilirubin (0.0-0.5) mg/dL AST (5-37) U/L ALT (0-40) U/L Alkaline Phosphatase (39-117) U/L Troponin I High Sens (<3.5-35.0) ng/L Total Protein (6.5-8.0) g/dL Albumin (3.5-5.0) g/dL Lipase (8-78) U/L Urine Opiates Screen (Not Detect) Ur Buprenorphine Scrn (Not Detect) ng/mL Ur Oxycodone Screen (Not Detect) ng/mL Urine Methadone Screen (Not Detect) ng/mL Urine Fentanyl Screen (Not Detect) Ur Barbiturates Screen (Not Detect) Ur Phencyclidine Scrn (Not Detect) Ur Amphetamines Screen (Not Detect) U Benzodiazepines Scrn (Not Detect) Urine Cocaine Screen (Not Detect) U Marijuana (THC) Screen (Not Detect) Ethyl Alcohol mg/dL Blood Type Antibody Screen 12/24/23 12/24/23 12/24/23 Range/Units 18:25 18:25 18:25 WBC (4.8-10.8) X10*3/uL RBC (4.60-5.80) X10*6/uL Hgb (14.0-18.0) g/dl Hct (42.0-52.0) % MCV (80.0-98.0) fL MCH 27.3 (27.0-33.0) pg MCHC 33.2 33.0 (31.0-36.0) g/dl RDW 15.8 15.8 (11.0-16.0) % Plt Count 241 (160-400) X10*3/uL MPV (9.4-12.4) fL Immature Gran % (Auto) (0.0-0.4) % Neut % (Auto) (45-73) % Lymph % (Auto) (20-40) % [place] % (Auto) (2-11) % Eos % (Auto) (0-4) % Baso % (Auto) (0-2) % Lymph # (Auto) (1.2-4.9) X10*3/uL [place] # (Auto) (0.1-1.2) X10*3/uL Eos # (Auto) (0.0-0.4) X10*3/uL Baso # (Auto) (0.0-0.2) X10*3/uL Abs Immat Gran (auto) (0.00-0.03) X10*3/uL Absolute Neuts (auto) (2.0-8.3) x10*3/uL Absolute Nucleated RBC (0.0-0.012) X10*3/uL Nucleated RBC % (auto) (0.0-0.2) /100WBC PT (11.1-13.3) SEC INR (0.9-1.1) APTT (26.0-36.8) SEC Sodium (135-145) mmol/L Potassium (3.3-5.1) mmol/L Chloride (96-108) mmol/L Carbon Dioxide (22-29) mmol/L Anion Gap (12-20) BUN (9-16) mg/dL Creatinine (0.5-1.4) mg/dL Estim Creat Clear Calc Estimated GFR Random Glucose (60-115) mg/dL Calcium (8.4-10.2) mg/dL Magnesium (1.6-2.6) mg/dL Total Bilirubin (0.0-1.0) mg/dL Direct Bilirubin (0.0-0.5) mg/dL AST (5-37) U/L ALT (0-40) U/L Alkaline Phosphatase (39-117) U/L Troponin I High Sens (<3.5-35.0) ng/L Total Protein (6.5-8.0) g/dL Albumin (3.5-5.0) g/dL Lipase (8-78) U/L Urine Opiates Screen (Not Detect) Ur Buprenorphine Scrn (Not Detect) ng/mL Ur Oxycodone Screen (Not Detect) ng/mL Urine Methadone Screen (Not Detect) ng/mL Urine Fentanyl Screen (Not Detect) Ur Barbiturates Screen (Not Detect) Ur Phencyclidine Scrn (Not Detect) Ur Amphetamines Screen (Not Detect) U Benzodiazepines Scrn (Not Detect) Urine Cocaine Screen (Not Detect) U Marijuana (THC) Screen (Not Detect) Ethyl Alcohol mg/dL Blood Type Antibody Screen 12/24/23 12/24/23 12/24/23 Range/Units 18:25 18:25 18:25 WBC (4.8-10.8) X10*3/uL RBC (4.60-5.80) X10*6/uL Hgb (14.0-18.0) g/dl Hct (42.0-52.0) % MCV (80.0-98.0) fL MCH (27.0-33.0) pg MCHC (31.0-36.0) g/dl RDW (11.0-16.0) % Plt Count 247 (160-400) X10*3/uL MPV 9.4 9.4 (9.4-12.4) fL Immature Gran % (Auto) 0.6 H (0.0-0.4) % Neut % (Auto) 81.2 H (45-73) % Lymph % (Auto) 12.3 L (20-40) % [place] % (Auto) 5.5 (2-11) % Eos % (Auto) 0.1 (0-4) % Baso % (Auto) 0.3 (0-2) % Lymph # (Auto) 2.1 (1.2-4.9) X10*3/uL [place] # (Auto) 0.9 (0.1-1.2) X10*3/uL Eos # (Auto) 0.0 (0.0-0.4) X10*3/uL Baso # (Auto) 0.1 (0.0-0.2) X10*3/uL Abs Immat Gran (auto) 0.11 H (0.00-0.03) X10*3/uL Absolute Neuts (auto) 14.0 H (2.0-8.3) x10*3/uL Absolute Nucleated RBC 0.000 0.000 (0.0-0.012) X10*3/uL Nucleated RBC % (auto) 0.0 (0.0-0.2) /100WBC PT (11.1-13.3) SEC INR (0.9-1.1) APTT (26.0-36.8) SEC Sodium (135-145) mmol/L Potassium (3.3-5.1) mmol/L Chloride (96-108) mmol/L Carbon Dioxide (22-29) mmol/L Anion Gap (12-20) BUN (9-16) mg/dL Creatinine (0.5-1.4) mg/dL Estim Creat Clear Calc Estimated GFR Random Glucose (60-115) mg/dL Calcium (8.4-10.2) mg/dL Magnesium (1.6-2.6) mg/dL Total Bilirubin (0.0-1.0) mg/dL Direct Bilirubin (0.0-0.5) mg/dL AST (5-37) U/L ALT (0-40) U/L Alkaline Phosphatase (39-117) U/L Troponin I High Sens (<3.5-35.0) ng/L Total Protein (6.5-8.0) g/dL Albumin (3.5-5.0) g/dL Lipase (8-78) U/L Urine Opiates Screen (Not Detect) Ur Buprenorphine Scrn (Not Detect) ng/mL Ur Oxycodone Screen (Not Detect) ng/mL Urine Methadone Screen (Not Detect) ng/mL Urine Fentanyl Screen (Not Detect) Ur Barbiturates Screen (Not Detect) Ur Phencyclidine Scrn (Not Detect) Ur Amphetamines Screen (Not Detect) U Benzodiazepines Scrn (Not Detect) Urine Cocaine Screen (Not Detect) U Marijuana (THC) Screen (Not Detect) Ethyl Alcohol mg/dL Blood Type Antibody Screen 12/24/23 Range/Units 18:25 WBC (4.8-10.8) X10*3/uL RBC (4.60-5.80) X10*6/uL Hgb (14.0-18.0) g/dl Hct (42.0-52.0) % MCV (80.0-98.0) fL MCH (27.0-33.0) pg MCHC (31.0-36.0) g/dl RDW (11.0-16.0) % Plt Count (160-400) X10*3/uL MPV (9.4-12.4) fL Immature Gran % (Auto) (0.0-0.4) % Neut % (Auto) (45-73) % Lymph % (Auto) (20-40) % [place] % (Auto) (2-11) % Eos % (Auto) (0-4) % Baso % (Auto) (0-2) % Lymph # (Auto) (1.2-4.9) X10*3/uL [place] # (Auto) (0.1-1.2) X10*3/uL Eos # (Auto) (0.0-0.4) X10*3/uL Baso # (Auto) (0.0-0.2) X10*3/uL Abs Immat Gran (auto) (0.00-0.03) X10*3/uL Absolute Neuts (auto) (2.0-8.3) x10*3/uL Absolute Nucleated RBC (0.0-0.012) X10*3/uL Nucleated RBC % (auto) 0.0 (0.0-0.2) /100WBC PT (11.1-13.3) SEC INR (0.9-1.1) APTT (26.0-36.8) SEC Sodium 139 (135-145) mmol/L Potassium 3.5 (3.3-5.1) mmol/L Chloride 101 (96-108) mmol/L Carbon Dioxide 28 (22-29) mmol/L Anion Gap 14 (12-20) BUN 19 H (9-16) mg/dL Creatinine 0.67 (0.5-1.4) mg/dL Estim Creat Clear Calc 121.8 Estimated GFR > 60 Random Glucose 121 H (60-115) mg/dL Calcium 8.9 D (8.4-10.2) mg/dL Magnesium (1.6-2.6) mg/dL Total Bilirubin (0.0-1.0) mg/dL Direct Bilirubin (0.0-0.5) mg/dL AST (5-37) U/L ALT (0-40) U/L Alkaline Phosphatase (39-117) U/L Troponin I High Sens (<3.5-35.0) ng/L Total Protein (6.5-8.0) g/dL Albumin (3.5-5.0) g/dL Lipase (8-78) U/L Urine Opiates Screen (Not Detect) Ur Buprenorphine Scrn (Not Detect) ng/mL Ur Oxycodone Screen (Not Detect) ng/mL Urine Methadone Screen (Not Detect) ng/mL Urine Fentanyl Screen (Not Detect) Ur Barbiturates Screen (Not Detect) Ur Phencyclidine Scrn (Not Detect) Ur Amphetamines Screen (Not Detect) U Benzodiazepines Scrn (Not Detect) Urine Cocaine Screen (Not Detect) U Marijuana (THC) Screen (Not Detect) Ethyl Alcohol mg/dL Blood Type Antibody Screen Independent Interpretation I performed an independent interpretation of an: EKG Interpretation: EKG normal sinus rhythm with a ventricular rate of 98 beats per minute, ND interval 128, QTC 457, no ST elevation or depression. Radiology Impression Discussion of test interpretation with radiology: I have reviewed the radiologist's reading. Radiologist Impression: CT/CT gi bleed abd pel wo/w IVcon IMPRESSION: No evidence of active GI bleeding. Wall thickening and edema of the distal thoracic esophagus and small amount of surrounding fluid. This is a new or increased finding from recent exam. Dilated fluid-filled stomach. Other stable findings from recent exam. CT/CT cervical spine wo IV con IMPRESSION: Degenerative changes. No fracture or dislocation. Fleischner guidelines were followed. Dictated By: Lizabeth Falk MD Signed By: <Electronically sign CT/CT head/brain wo IV con IMPRESSION: No acute findings. No change from previous exams. Dictated By: Lizabeth Falk MD Chronic Conditions Patient?s care impacted by: Other (PE on Eliquis, alcohol use disorder, esophagitis) Social Determinants Patient?s care significantly limited by Social Determinants of Health including: Alcoholism and drug addiction in family Discharge Plan Discharge Clinical Impression: Hematemesis, Abdominal pain
[2023-12-24] MEDS: 0.9 % Sodium Chloride 1,000 ML 999 ML IV (12:25)
[2023-12-24 12:29] LABS: MANUAL DIFF FLAG NO
[2023-12-24 12:33] LABS: Basophils Absolute Auto 0.1 X10*3/uL (0.0-0.2); Basophils Percent Auto 0.3 % (0-2); Hematocrit 38.4 % (42.0-52.0); Hemoglobin 12.8 g/dl (14.0-18.0); Imm Gran Abs Auto 0.15 X10*3/uL (0.00-0.03); Imm Gran Pct Auto 0.8 % (0.0-0.4); Lymphocytes Absolute Auto 1.4 X10*3/uL (1.2-4.9); Lymphocytes Percent Auto 7.5 % (20-40); Mean Corpuscular HGB Conc 33.3 g/dl (31.0-36.0); Mean Corpuscular Hemoglobin 27.4 pg (27.0-33.0); Mean Corpuscular Volume 82.2 fL (80.0-98.0); Mean Platelet Volume 9.8 fL (9.4-12.4); Monocytes Absolute Auto 0.9 X10*3/uL (0.1-1.2); Monocytes Percent Auto 4.7 % (2-11); Neutrophils Absolute Auto 15.8 x10*3/uL (2.0-8.3); Neutrophils Percent Auto 86.7 % (45-73); Platelet Count 288 X10*3/uL (160-400); Red Blood Count 4.67 X10*6/uL (4.60-5.80); Red Cell Distribution Width 15.7 % (11.0-16.0); White Blood Count 18.3 X10*3/uL (4.8-10.8)
[2023-12-24] MEDS: Pantoprazole Sodium 40 MG/10 ML VIAL 80 MG IVPUSH (12:34)
[2023-12-24 12:38] LABS: Prothrombin Time 12.3 SEC (11.1-13.3)
[2023-12-24 12:45] LABS: Partial Thromboplastin Time 22.4 SEC (26.0-36.8)
[2023-12-24 13:44] LABS: Alanine Aminotransferase 10 U/L (0-40); Albumin Level 4.3 g/dL (3.5-5.0); Alkaline Phosphatase 143 U/L (39-117); Anion Gap 16 (12-20); Aspartate Amino Transferase 12 U/L (5-37); Bilirubin Direct 0.2 mg/dL (0.0-0.5); Bilirubin Total 0.4 mg/dL (0.0-1.0); Blood Urea Nitrogen 21 mg/dL (9-16); Calcium 9.9 mg/dL (8.4-10.2); Carbon Dioxide 34 mmol/L (22-29); Chloride 96 mmol/L (96-108); Estimated Glomerular Filt Rate > 60; Ethanol < 10 mg/dL; Glucose Random 144 mg/dL (60-115); Lipase 61 U/L (8-78); Magnesium 1.9 mg/dL (1.6-2.6); Potassium 3.1 mmol/L (3.3-5.1); Sodium 143 mmol/L (135-145); Total Protein 7.5 g/dL (6.5-8.0)
[2023-12-24 13:47] LABS: Amphetamine Screen Urine Not Detected (Not Detect); Barbiturates, Urine Not Detected (Not Detect); Benzodiazepines Screen Urine Not Detected (Not Detect); Buprenorphine Scr Not Detected (Not Detect); Cannabinoid Screen Urine Not Detected (Not Detect); Cocaine Screen Urine Not Detected (Not Detect); Fentanyl, urine POSITIVE (Not Detect); Methadone Screen, Urine Not Detected (Not Detect); Opiate Screen Urine Not Detected (Not Detect); Oxycodone Screen Urine Not Detected (Not Detect); Phencyclidine Screen Urine Not Detected (Not Detect)
--- NOTE | 2023-12-24 13:56 | PC.NURSE ---
no vomiting, states abd pain continues
[2023-12-24 14:31] LABS: Troponin-I High Sensitivity 4.6 ng/L (<3.5-35.0)
[2023-12-24] MEDS: iohexoL 350 MG/ML 100 ML INFUS..BTL IV (15:24)
--- NOTE | 2023-12-24 16:19 | P.CNGI_ITS ---
History of Present Illness Data of Consult Service Date: 12/24/23 Requesting physician: Miya Zurita Primary Care Provider: Unknown Physician HPI Reason for consult: UGI bleeding 58 YM with a history of alcohol use disorder and hypertension (On Eliquis for a hx of PE) came to [facility] on 12/24/23 via EMS due to left leg pain. Patient complained of upper abdominal pain (which he attributed to gastritis) and demanded Maalox and Prilosec as he did not take any medications prior to his arrival. Patient has had multiple ER visits on 12/22 and 12/22/23 after he had a fall complicated by a hip fracture. Pt stated that he tripped over his dog which caused him to fall onto the ground and was unsure if he hit his head or lost consciousness. Pt was seen on December 21 and diagnosed with a left trochanter femur fracture. He was advised to be non-weightbearing per Orthopedics and has been weight- bearing on the left leg. 12/23/23 He was seen in the ED last night after a fall. At that time he had a head CT and C-spine CT which were unremarkable. Patient complained of nausea and had 2 episodes of hematemesis (containing dark blood) after arrival in the ER. Labs showed H&H of 12.8 & 38.4, PLT 288, BUN 21, Cr 0.8. LFTS were normal except AL of 143 He did not take his daily medications including Prilosec and lisinopril. States that he recently relapsed on alcohol (after being abstinent for 4 months) and stated that he drank half a qt of hard liquor yesterday. He admits to smoking 10 cigarettes a day. 12/24/[address] SCAN SHOWED: No evidence of active GI bleeding. Wall thickening and edema of the distal thoracic esophagus and small amount of surrounding fluid. This is a new or increased finding from recent exam. Dilated fluid-filled stomach. Other stable findings from recent exam. PAST GI HISTORY BY REVIEW OF MEDICAL RECORDS: 05/24/23 PT HAD AN EGD FOR EVALUATION OF DYSPHAGIA: ESOPHAGUS: Circumferential ulcer seen from 36 to 38 cms with thick yellow exudate. A of piece of meat was stuck in the lower esophagus which was removed with a Estrada net. Tight stricture noted at the distal esophagus at 39 cms. A 15 mm nodule/polyp at 39 cms - which was biopsied. A mid-size upper endoscope could not be passed through the stricture into the distal esophagus A pediatric upper endoscope was used to traverse the GE junction into the stomach. Biopsies were obtained from the GE junction to check for Barretts. Plan: Above findings were reviewed with the patient and Esophagitis and Esophageal Dilation handouts were given in the discharge area Repeat EGD with same day colonoscopy in 3 months BIOPSIES SHOWED: A. Esophagus, ulcer, biopsy: - Ulcerated squamous mucosa; negative for malignancy; no viral changes identified. - Rare pseudohyphae and yeast forms consistent with Lizeth species present. B. GE junction, biopsy: - Cardiac-type mucosa with moderate chronic inactive inflammation; no intestinal metaplasia seen. - No squamous epithelium identified. C. Esophagus, nodule, biopsy: - Cardiac-type mucosa with moderate chronic inactive inflammation and hyperplastic changes; no intestinal metaplasia seen. - Squamous mucosa within normal limit Review of Systems 2 Review of Systems: Yes all other systems are reviewed and are negative Constitutional: Constitutional: Reports as per [facility] Past Medical History Medical History Substance abuse EtOH dependence Hypertension Family History Family History Father Stomach cancer Surgical History Surgical History Hx of endoscopy History of total right hip replacement Social History Social History Household Members: None Housing: Homeless Do you presently have visiting nurse or other home services: No Alcohol intake: current Alcohol intake frequency: 3 or more drinks per day Alcohol type: hard liquor Comment: 1:1 Patient Tobacco Use Status: Current someday Tobacco user Tobacco use type: Cigarette Cigarettes Per Day: 5 Years Smoked: 20 Smoked in Last 30 Days: No e-Cigarette/Vaping Use: Never Used Second Hand Smoke Exposure: Yes Substance Use Type: Heroin Advance Directives: No Do you have a plan to hurt others: No Plan service: No Current occupational status: unemployed Sexual orientation: Straight/Heterosexual Meds Allergies Allergy/AdvReac Type Severity Reaction Status Date / Time bee pollen [BEE STINGS] Allergy Severe SWELLING Verified 01/14/24 06:46 Home Medications ?Medication ?Instructions ?Recorded ?Confirmed ?Last Taken ?Type methadone 10 mg/mL oral 27 mg PO DAILY 12/26/23 12/26/23 12/16/23 History concentrate (Methadose) Physical Exam 2 Vital Signs: Vital Signs: Last Vital Signs Temp 99.2 F 12/24/23 16:09 Pulse 97 12/24/23 16:09 Resp 16 12/24/23 16:09 BP 167/91 H 12/24/23 16:09 Pulse Ox 95 12/24/23 16:09 O2 Del Method Room Air 12/24/23 16:09 BMI result Body Mass Index 22.3 Const: Other: Eyes closed in bed, will not speak and answer questions, with sternal rub, he forcefully pushes my hands away no signs of head trauma on exam General: no acute distress and other (in pain) Nutritional Appearance: a verage body habitus Orientation/consciousness: patient oriented x3 HEENT: Other: Alcohol halitosis Head: Yes normal to inspection Ears: hearing grossly normal bilaterally Eyes: Sclerae: sclerae normal Pupils: Equal, round and reactive pupils present Neck: Neck: Yes normal visual inspection Chest: Chest palpation & inspection: normal inspection of the chest Resp: Other: Nonlabored respiration Effort & Inspection: normal respiratory effort Auscultation: clear to auscultation bilaterally Cardio: Other: Normal peripheral perfusion Palpation: normal PMI Rate: regular rate Rhythm: regular rhythm H eart sounds: S1 normal heart sound present, S2 normal heart sound present and no murmurs GI: Palpation (GI): Soft to palpation, Tenderness to palpation present (GI) (minimal upper abdominal tenderness) and No hepatosplenomegaly present A uscultation: normal bowel sounds Rectal Exam - Male: Yes deferred Skin: Other: No rash General skin exam: no rashes or lesions noted Neuro: Other: No focal neuro deficits, intoxicated General: patient oriented x3, gait normal and moves all extremities C ranial nerves: Yes Equal, round and reactive pupils present Extrem: Other: Will be all extremities independently no deformities noted Psych: Other: Intoxicated, uncooperative Appearance: grossly normal Mental Status: mental status grossly normal Results Labs 12/29/23 05:52 12/26/23 06:25 Labs: Short CBC 12/24/23 Range/Units 12:26 WBC 18.3 H (4.8-10.8) X10*3/uL Hgb 12.8 L (14.0-18.0) g/dl Hct 38.4 L (42.0-52.0) % Plt Count 288 (160-400) X10*3/uL BMP 12/24/23 12:26 Sodium 143 Potassium 3.1 L Chloride 96 Carbon Dioxide 34 H BUN 21 H Creatinine 0.80 Calcium 9.9 D Liver Function 12/24/23 Range/Units 12:26 Total Bilirubin 0.4 (0.0-1.0) mg/dL Direct Bilirubin 0.2 (0.0-0.5) mg/dL AST 12 (5-37) U/L ALT 10 (0-40) U/L Alkaline Phosphatase 143 H (39-117) U/L Albumin 4.3 (3.5-5.0) g/dL Assessment and Plan (1) Abdominal pain: Status: Acute (2) Nausea & vomiting: Status: Resolved (3) Acute alcohol abuse: Status: Resolved (4) Hematemesis: Status: Resolved Plan 58 YM with a history of alcohol use disorder and hypertension (On Eliquis for a hx of PE) came to [facility] on 12/24/23 via EMS due to left leg pain. Patient complained of upper abdominal pain (which he attributed to gastritis) and demanded Maalox and Prilosec as he did not take any medications prior to his arrival. Patient complained of nausea and had 2 episodes of hematemesis (containing dark blood) after arrival in the ER. Pt is on Eliquis and thinks he last took it approx 4 days ago. Labs showed H&H of 12.8 & 38.4 (stable) PLT 288, BUN 21, Cr 0.8. LFTS were normal except AP of 143 He did not take his daily medications including Prilosec and lisinopril. States that he recently relapsed on alcohol (after being abstinent for 4 months) and stated that he drank half a qt of hard liquor yesterday. UGI bleeding likely due to erosive esophagitis, gastritis, peptic ulcer disease, upper GI AVM or Dieulafoy's. RECOMMENDATIONS: 1. Agree with IV PPI 2. OK to start a clear liquid diet tonight if no further episodes of vomiting or hematemesis. 3. NPO after midnight tonight for an EGD scheduled on 12/25/23 at 9 am. Procedures Date of Service Date of Service: 01/14/24
[2023-12-24] MEDS: Morphine Sulfate 4 MG/ML CARTRIDGE IVPUSH (16:58)
[2023-12-24 18:29] LABS: MANUAL DIFF FLAG NO
[2023-12-24 18:31] LABS: Basophils Absolute Auto 0.1 X10*3/uL (0.0-0.2); Basophils Percent Auto 0.3 % (0-2); Eosinophils Percent Auto 0.1 % (0-4); Hematocrit 33.6 % (42.0-52.0); Hematocrit 33.7 % (42.0-52.0); Hemoglobin 11.1 g/dl (14.0-18.0); Hemoglobin 11.2 g/dl (14.0-18.0); Imm Gran Abs Auto 0.11 X10*3/uL (0.00-0.03); Imm Gran Pct Auto 0.6 % (0.0-0.4); Lymphocytes Absolute Auto 2.1 X10*3/uL (1.2-4.9); Lymphocytes Percent Auto 12.3 % (20-40); Mean Corpuscular HGB Conc 33.2 g/dl (31.0-36.0); Mean Corpuscular Hemoglobin 27.3 pg (27.0-33.0); Mean Corpuscular Hemoglobin 27.7 pg (27.0-33.0); Mean Corpuscular Volume 82.8 fL (80.0-98.0); Mean Corpuscular Volume 83.4 fL (80.0-98.0); Mean Platelet Volume 9.4 fL (9.4-12.4); Monocytes Absolute Auto 0.9 X10*3/uL (0.1-1.2); Monocytes Percent Auto 5.5 % (2-11); Neutrophils Percent Auto 81.2 % (45-73); Platelet Count 241 X10*3/uL (160-400); Platelet Count 247 X10*3/uL (160-400); Red Blood Count 4.04 X10*6/uL (4.60-5.80); Red Blood Count 4.06 X10*6/uL (4.60-5.80); Red Cell Distribution Width 15.8 % (11.0-16.0); White Blood Count 17.1 X10*3/uL (4.8-10.8); White Blood Count 17.2 X10*3/uL (4.8-10.8)
[2023-12-24] MEDS: HYDROmorphone HCl 1 MG/ML SYRINGE IVPUSH (18:31)
[2023-12-24 18:44] LABS: Anion Gap 14 (12-20); Blood Urea Nitrogen 19 mg/dL (9-16); Calcium 8.9 mg/dL (8.4-10.2); Carbon Dioxide 28 mmol/L (22-29); Chloride 101 mmol/L (96-108); Creatinine Clr Calc Pharmacy 121.8; Estimated Glomerular Filt Rate > 60; Glucose Random 121 mg/dL (60-115); Potassium 3.5 mmol/L (3.3-5.1); Sodium 139 mmol/L (135-145)
--- NOTE | 2023-12-24 19:17 | PM.IMHP ---
History of Present Illness Date of Service: 12/24/23 <MARTHA Parisi - Last Filed: 12/24/23 20:44> Attending physician on admission: Adriel Rocha <MARTHA Parisi - Last Filed: 12/24/23 20:44> Chief Complaint: Abdominal pain <MARTHA Parisi - Last Filed: 12/24/23 20:44> Pt is a 58-year-old male with a PMH significant for alcohol use disorder with history of withdrawal,?HTN, hx of PE on Eliquis, and opiate use disorder on methadone who presents to the ED with?abdominal and left leg pain. This is the patient's 3rd presentation to the ED in as many days. Initially presented on 12/21 after being found on unresponsive the ground outside of a bus stop where 911 was called in by a bystander. Patient had been drinking up to 2 pt of vodka prior to his presentation. Workup at that time found a possible new left femur fracture at site of previous surgical repair. ED clinician consulted Orthopedics who reviewed films and recommended patient being nonweightbearing on affected leg, but no surgical intervention necessary at that time and patient could follow-up in the clinic. The following day patient re-presented to ED after falling while getting out of a car. Workup was negative for any acute injuries. Patient presents again today to the ED after another fall at home, this time after tripping over his roommate's dog. Apparently developed severe epigastric pain while waiting for the ambulance and was noted to have 2 episodes of coffee-ground emesis while in the ED. patient seen and evaluated at bedside where he is resting comfortably in bed. Complains only of epigastric and left thigh pain. Currently denies nausea, vomiting. No fever or chills. Denies increasing anxiety or auditory or visual hallucinations. No chest pain/pressure, palpitations. Denies shortness of breath or difficulty breathing. Patient overall is a vague and begrudging historian. Apparently has been drinking up to 1 L of vodka daily with last drink sometime yesterday. In the ED pt with elevated heart rate up to 100, and hypertensive up to 186/88. Labs were significant for leukocytosis of 18.3, potassium 3.1, and alk-phos 143. Left femur x-ray was stable. CXR showed no active cardiopulmonary disease. CT of head with no acute findings and no change from previous exams. CT of cervical spine found degenerative changes but no acute fracture or dislocation. CT of abdomen and pelvis found no evidence of active GI bleeding, though showed new wall thickening and edema of the distal thoracic esophagus and small amount of surrounding fluid. EKG demonstrated normal sinus rhythm without evidence of significant ST elevations or depressions. Pt was treated with Maalox, omeprazole, lisinopril, IVF, Protonix, morphine, and hydromorphone. Pt will be admitted to the hospital for treatment and further evaluation of upper GI bleed in the setting of alcoholic use disorder. <MARTHA Parisi - Last Filed: 12/24/23 20:44> Review of Systems Review of Systems: Epigastric pain Nausea, vomiting, coffee-ground emesis Left thigh pain Denies headache No tremors Denies increased anxiety No auditory or visual hallucinations Denies chest pain/pressure, palpitations No fever, chills <MARTHA Parisi - Last Filed: 12/24/23 20:44> [facility] Medical History: Medical History Substance abuse EtOH dependence Hypertension <MARTHA Parisi - Last Filed: 12/24/23 20:44> Family History: Family History Father Stomach cancer <MARTHA Parisi - Last Filed: 12/24/23 20:44> Surgical History: Surgical History Hx of endoscopy History of total right hip replacement <MARTHA Parisi - Last Filed: 12/24/23 20:44> Social History: Social History Household Members: None Housing: Homeless Do you presently have visiting nurse or other home services: No Alcohol intake: current Alcohol intake frequency: 3 or more drinks per day Alcohol type: beer and hard liquor Comment: 1:1 Patient Tobacco Use Status: Current someday Tobacco user Tobacco use type: Cigarette Cigarettes Per Day: 5 Years Smoked: 20 Smoked in Last 30 Days: No e-Cigarette/Vaping Use: Never Used Second Hand Smoke Exposure: Yes Use of substances other than those prescribed or required for medical reasons: No Substance Use Type: Heroin Substance Use Frequency: Chronic Longstanding Last Used Substance: Hours (ago) Currently Displaying Signs/Symptoms of Drug Intoxication Withdrawal: No Any prior treatment program specific to substance use: Yes Advance Directives: No Advance Directives Information Provided: No Do you have a plan to hurt others: No Plan Nutrition Risks: No Nutritional Risk service: No Current occupational status: unemployed Sexual orientation: Straight/Heterosexual <MARTHA Parisi - Last Filed: 12/24/23 20:44> Meds Allergies/Adverse reactions: Allergies Allergy/AdvReac Type Severity Reaction Status Date / Time bee pollen [BEE STINGS] Allergy Severe SWELLING Verified 12/24/23 10:51 <MARTHA Parisi - Last Filed: 12/24/23 20:44> Active Medications: Current Medications Acetaminophen (Acetaminophen 325 Mg Tablet) 650 mg PO Q6H PRN PRN Reason: Pain, Mild (Pain Scale 1-3) Benzonatate (Benzonatate 100 Mg Capsule) 100 mg PO TID PRN PRN Reason: Cough Docusate Sodium (Docusate Sodium 100 Mg Capsule) 100 mg PO DAILY PRN PRN Reason: Constipation Hydromorphone HCl (Hydromorphone Hcl 0.5 Mg/0.5 Ml Syringe) 0.5 mg IVPUSH Q4H PRN; Protocol PRN Reason: Pain, Severe (Pain Scale 7-10) Melatonin (Melatonin 3 Mg Tablet) 6 mg PO BEDTIME PRN PRN Reason: Insomnia Ondansetron HCl (Ondansetron Hcl 4 Mg/2 Ml Vial) 4 mg IVPUSH Q8H PRN PRN Reason: Nausea and Vomiting Pantoprazole Sodium (Pantoprazole Sodium 40 Mg/10 Ml Vial) 40 mg IVPUSH BID@0630,1630 [facility] Sodium Chloride (0.9 % Sodium Chloride Flush 3 Ml Syringe) 3 ml IVFLUSH QSHIFT [facility] <MARTHA Parisi - Last Filed: 12/24/23 20:44> Home medications: Home Medications ?Medication ?Instructions ?Recorded ?Confirmed ?Last Taken ?Type epinephrine 0.3 mg/0.3 mL 0.3 mg DIRECTED 12/24/23 12/24/23 Unknown History injection, auto-injector folic acid 1 mg tablet 1 mg QAM 12/24/23 12/24/23 Unknown History melatonin 3 mg tablet 6 mg PO BEDTIME 12/24/23 12/24/23 Unknown History pyridoxine (vitamin B6) 50 mg 50 mg DAILY 12/24/23 12/24/23 Unknown History tablet (Vitamin B-6) thiamine HCl (vitamin B1) 100 mg 100 mg QAM 12/24/23 12/24/23 Unknown History tablet <MARTHA Parisi - Last Filed: 12/24/23 20:44> Physical Exam Vital Signs and Narrative: Vital Signs: Last Vital Signs Temp 99 F 12/24/23 18:22 Pulse 91 12/24/23 18:22 Resp 20 12/24/23 18:22 BP 149/80 H 12/24/23 18:22 Pulse Ox 99 12/24/23 18:22 O2 Del Method Room Air 12/24/23 18:22 BMI result Body Mass Index 22.3 <MARTHA Parisi - Last Filed: 12/24/23 20:44> Constitutional: Alert though somnolent. Mostly cooperative with exam and interview. In no acute distress. Mental Status: Oriented to person, place and time. Eyes: Pupils are equal, round, and reactive to light. Ear, Nose, and Throat: Oropharynx clear, mucous membranes moist. Ears and nose without deformities. Trachea midline. Respiratory: Clear to auscultation bilaterally. No wheezing, rales, or rhonchi. Cardiovascular: S1, S2 regular. No murmurs, rubs, or gallops. Gastrointestinal: Abdomen soft, non-distended, with epigastric tenderness. Normal bowel sounds. Neurologic: Cranial nerves II-XII are grossly intact bilaterally. No focal neurological deficits. Moves all extremities spontaneously. Skin: Warm, dry. Musculoskeletal: Mild left thigh tenderness. No loss of ROM of leg noted. Extremities: No edema. Psychiatric: Normal mood and affect. <MARTHA Parisi - Last Filed: 12/24/23 20:44> Results Labs CBC and Chem 7: 12/25/23 06:54 12/25/23 06:54 <MARTHA Parisi - Last Filed: 12/24/23 20:44> Labs: Laboratory Results - last 24 hr 12/24/23 12/24/2324 12:26 13:32 17:15 MCV 82.2 MCH 27.4 MCHC 33.3 RDW 15.7 Plt Count 288 MPV 9.8 Immature Gran % (Auto) 0.8 H Neut % (Auto) 86.7 H Lymph % (Auto) 7.5 L [place] % (Auto) 4.7 Eos % (Auto) 0.0 Baso % (Auto) 0.3 Lymph # (Auto) 1.4 [place] # (Auto) 0.9 Eos # (Auto) 0.0 Baso # (Auto) 0.1 Abs Immat Gran (auto) 0.15 H Absolute Neuts (auto) 15.8 H Absolute Nucleated RBC 0.000 Nucleated RBC % (auto) 0.0 PT 12.3 INR 1.0 APTT 22.4 L Anion Gap 16 Estim Creat Clear Calc 102.0 Estimated GFR > 60 Random Glucose 144 H Calcium 9.9 D Magnesium 1.9 Total Bilirubin 0.4 Direct Bilirubin 0.2 AST 12 ALT 10 Alkaline Phosphatase 143 H Troponin I High Sens 4.6 D 8.0 D Total Protein 7.5 Albumin 4.3 Lipase 61 Urine Opiates Screen Not Detected Ur Buprenorphine Scrn Not Detected Ur Oxycodone Screen Not Detected Urine Methadone Screen Not Detected Urine Fentanyl Screen POSITIVE H Ur Barbiturates Screen Not Detected Ur Phencyclidine Scrn Not Detected Ur Amphetamines Screen Not Detected U Benzodiazepines Scrn Not Detected Urine Cocaine Screen Not Detected U Marijuana (THC) Screen Not Detected Ethyl Alcohol < 10 Blood Type B Positive Antibody Screen NEGATIVE 12/24/23 12/24/23 12/24/23 18:25 18:25 18:25 MCV 83.4 82.8 MCH 27.7 27.3 MCHC 33.2 RDW Plt Count MPV Immature Gran % (Auto) Neut % (Auto) Lymph % (Auto) [place] % (Auto) Eos % (Auto) Baso % (Auto) Lymph # (Auto) [place] # (Auto) Eos # (Auto) Baso # (Auto) Abs Immat Gran (auto) Absolute Neuts (auto) Absolute Nucleated RBC Nucleated RBC % (auto) PT INR APTT Anion Gap Estim Creat Clear Calc Estimated GFR Random Glucose Calcium Magnesium Total Bilirubin Direct Bilirubin AST ALT Alkaline Phosphatase Troponin I High Sens Total Protein Albumin Lipase Urine Opiates Screen Ur Buprenorphine Scrn Ur Oxycodone Screen Urine Methadone Screen Urine Fentanyl Screen Ur Barbiturates Screen Ur Phencyclidine Scrn Ur Amphetamines Screen U Benzodiazepines Scrn Urine Cocaine Screen U Marijuana (THC) Screen Ethyl Alcohol Blood Type Antibody Screen 12/24/23 12/24/23 12/24/23 18:25 18:25 18:25 MCV MCH MCHC 33.0 RDW 15.8 15.8 Plt Count 241 247 MPV 9.4 Immature Gran % (Auto) Neut % (Auto) Lymph % (Auto) [place] % (Auto) Eos % (Auto) Baso % (Auto) Lymph # (Auto) [place] # (Auto) Eos # (Auto) Baso # (Auto) Abs Immat Gran (auto) Absolute Neuts (auto) Absolute Nucleated RBC Nucleated RBC % (auto) PT INR APTT Anion Gap Estim Creat Clear Calc Estimated GFR Random Glucose Calcium Magnesium Total Bilirubin Direct Bilirubin AST ALT Alkaline Phosphatase Troponin I High Sens Total Protein Albumin Lipase Urine Opiates Screen Ur Buprenorphine Scrn Ur Oxycodone Screen Urine Methadone Screen Urine Fentanyl Screen Ur Barbiturates Screen Ur Phencyclidine Scrn Ur Amphetamines Screen U Benzodiazepines Scrn Urine Cocaine Screen U Marijuana (THC) Screen Ethyl Alcohol Blood Type Antibody Screen 12/24/23 12/24/23 12/24/23 18:25 18:25 18:25 MCV MCH MCHC RDW Plt Count MPV 9.4 Immature Gran % (Auto) 0.6 H Neut % (Auto) 81.2 H Lymph % (Auto) 12.3 L [place] % (Auto) 5.5 Eos % (Auto) 0.1 Baso % (Auto) 0.3 Lymph # (Auto) 2.1 [place] # (Auto) 0.9 Eos # (Auto) 0.0 Baso # (Auto) 0.1 Abs Immat Gran (auto) 0.11 H Absolute Neuts (auto) 14.0 H Absolute Nucleated RBC 0.000 0.000 Nucleated RBC % (auto) 0.0 0.0 PT INR APTT Anion Gap 14 Estim Creat Clear Calc 121.8 Estimated GFR > 60 Random Glucose 121 H Calcium 8.9 D Magnesium Total Bilirubin Direct Bilirubin AST ALT Alkaline Phosphatase Troponin I High Sens Total Protein Albumin Lipase Urine Opiates Screen Ur Buprenorphine Scrn Ur Oxycodone Screen Urine Methadone Screen Urine Fentanyl Screen Ur Barbiturates Screen Ur Phencyclidine Scrn Ur Amphetamines Screen U Benzodiazepines Scrn Urine Cocaine Screen U Marijuana (THC) Screen Ethyl Alcohol Blood Type Antibody Screen <MARTHA Parisi - Last Filed: 12/24/23 20:44> Imaging Radiologist's Impressions: Impressions Femur X-Ray 12/24/23 12:42 IMPRESSION: Stable examination. Abdomen/Pelvis CT 12/24/23 15:19 IMPRESSION: No evidence of active GI bleeding. Wall thickening and edema of the distal thoracic esophagus and small amount of surrounding fluid. This is a new or increased finding from recent exam. Dilated fluid-filled stomach. Other stable findings from recent exam. Cervical Spine CT 12/24/23 15:19 IMPRESSION: Degenerative changes. No fracture or dislocation. Fleischner guidelines were followed. Head CT 12/24/23 15:19 IMPRESSION: No acute findings. No change from previous exams. <MARTHA Parisi - Last Filed: 12/24/23 20:44> Assessment and Plan (1) Hematemesis: Qualifiers: Nausea presence: unspecified Qualified Code(s): K92.0 - Hematemesis <MARTHA Parisi - Last Filed: 12/24/23 20:44> Status: Acute <MARTHA Parisi - Last Filed: 12/24/23 20:44> (2) Alcohol use disorder, severe, dependence: Status: Acute <MARTHA Parisi - Last Filed: 12/24/23 20:44> Pt is a 58-year-old male with a PMH significant for alcohol use disorder with history of withdrawal,?HTN, hx of PE on Eliquis, and opiate use disorder on methadone who presents to the ED with?abdominal and left leg pain. Pt will be admitted to the hospital for treatment and further evaluation of upper GI bleed in the setting of alcoholic use disorder. Upper GI bleed In the setting of alcohol use disorder Pt with epigastric pain and coffee-ground emesis x2 while in the ED Concerning for alcoholic gastritis Will treat with Protonix NPO GI consult with likely EGD tomorrow Analgesics for pain management IVF Follow CBC Alcohol use disorder Drinking up to 1L vodka daily Currently not in acute withdrawal Monitor on CIWA Will initiate phenobarb protocol for CIWA >6 Thiamine, folic acid, multivitamin, Protonix Addiction medicine consult Monitor on telemetry Left femur fracture Pt should be non-weightbearing Has been non-compliant, walking at home with multiple falls Follow-up outpatient Leukocytosis WBCs 18 point at time of presentation Likely reactionary to nausea, vomiting Patient does not meet sepsis criteria: No indication for acute infection, tachycardia secondary to pain No indication for antibiotics at this time Will check UA, CXR Hx of PE Hold Eliquis due to UGIB Opioid use disorder Continue methadone once dose verified HTn Continue lisinopril Full Code Attending:Aury Rocha DVT Prophylaxis: Pneumatic boots due to upper GI bleed Pt will require a hospitalization of at least two nights for treatment of?upper GI bleed in setting of alcohol use disorder. Patient will require hospitalization for close monitoring of H&H, electrolytes, and specialist consultation with GI with likely EGD tomorrow. <MARTHA Parisi - Last Filed: 12/24/23 20:44> Pt is a 58-year-old male with a PMH significant for alcohol use disorder with history of withdrawal,?HTN, hx of PE on Eliquis, and opiate use disorder on methadone who presents to the ED with?abdominal and left leg pain. Pt will be admitted to the hospital for treatment and further evaluation of upper GI bleed in the setting of alcoholic use disorder. Upper GI bleed In the setting of alcohol use disorder Pt with epigastric pain and coffee-ground emesis x2 while in the ED Concerning for alcoholic gastritis Will treat with Protonix NPO GI consult with likely EGD tomorrow Analgesics for pain management IVF Follow CBC Alcohol use disorder Drinking up to 1L vodka daily Currently not in acute withdrawal Monitor on CIWA Will initiate phenobarb protocol for CIWA >6 Thiamine, folic acid, multivitamin, Protonix Addiction medicine consult Monitor on telemetry Left femur fracture Pt should be non-weightbearing ed d/w ortho-Has been non-compliant, walking at home with multiple falls added ortho eval Leukocytosis WBCs 18 point at time of presentation Likely reactionary to nausea, vomiting Patient does not meet sepsis criteria: No indication for acute infection, tachycardia secondary to pain No indication for antibiotics at this time Will check UA, CXR Hx of PE Hold Eliquis due to UGIB Opioid use disorder Continue methadone once dose verified HTn Continue lisinopril Full Code DVT Prophylaxis: Pneumatic boots due to upper GI bleed Pt will require a hospitalization of at least two nights for treatment of?upper GI bleed in setting of alcohol use disorder. Patient will require hospitalization for close monitoring of H&H, electrolytes, and specialist consultation with GI with likely EGD tomorrow. <Adriel Rocha MD - Last Filed: 12/25/23 13:55> Quality Stroke Does the patient have a stroke diagnosis?: No <MARTHA Parisi - Last Filed: 12/24/23 20:44> VTE Prior VTE?: No <MARTHA Parisi - Last Filed: 12/24/23 20:44> VTE Risk Level:: Medical - moderate - high <MARTHA Parisi - Last Filed: 12/24/23 20:44> VTE Device Contraindication: N/A - Device Ordered <MARTHA Parisi - Last Filed: 12/24/23 20:44> VTE Drug Contraindication: Treatment Not Indicated <MARTHA Parisi - Last Filed: 12/24/23 20:44>
--- NOTE | 2023-12-24 19:54 | PC.NURSE ---
attempt to ask pt admission questions, assess pain. pt refusing to respond, falls asleep during questions. NSR on monitor
[2023-12-24] MEDS: Lactated Ringers 1,000 ML 100 ML IVCONT (20:41)
--- NOTE | 2023-12-24 21:10 | PHA.MEDREC ---
Pharmacy Consult ? Medication Reconciliation Pharmacy has completed the medication reconciliation. Tried to Speak to the Patient to confirm med list, however he kept falling asleep he was only able to confirm Eliqis 5 mg bid, Lisinopril 10 mg daily , and Omeprazole 20 mg daily. I called his contact Ashish Porter (Brother) who didn't know anything that the patient was taken. Used claims do confirm meds.
--- NOTE | 2023-12-24 21:54 | PC.NURSE ---
brother called for update, pt allowed this RN to speak with him regarding admission and plan for surgery
--- NOTE | 2023-12-24 21:55 | PC.NURSE ---
surgery planned, EGD, 0900 12/25/23. NPO at midnight
[2023-12-24] MEDS: HYDROmorphone HCl 0.5 MG/0.5 ML SYRINGE IVPUSH (23:53)
--- NOTE | 2023-12-24 23:55 | PC.NURSE ---
This blog writer assumed care of this Pt at 2300. IV fluids running per SEP. Pt A&Ox3, reports 7/10 left leg pain, Pt medicated per SEP.
[2023-12-25] VITALS (10 sets, daily range): BP systolic 120–181; BP diastolic 60–86; PULSE 69–84; RESP 16–20; TEMP 35.8–37.1; O2SAT 93–97
[2023-12-25] MEDS: HYDROmorphone HCl 0.5 MG/0.5 ML SYRINGE IVPUSH ×4 (03:56→21:08)
--- NOTE | 2023-12-25 04:34 | PC.NURSE ---
Addendum entered by Suma Mcneil 12/25/23 04:35: Pt requesting PO fluids, reminded about NPO status. Original Note: Pt using urinal in bed.
[2023-12-25] MEDS: Lactated Ringers 1,000 ML 100 ML IVCONT ×2 (05:49→15:33)
[2023-12-25] MEDS: Pantoprazole Sodium 40 MG/10 ML VIAL IVPUSH ×2 (05:49→15:32)
[2023-12-25] MEDS: Folic Acid 1 MG TABLET PO (07:44)
[2023-12-25] MEDS: Acamprosate Calcium 333 MG TABLET.DR 666 MG PO ×3 (07:44→21:06)
[2023-12-25] MEDS: Pyridoxine HCl (Vitamin B6) 50 MG TABLET PO (07:44)
[2023-12-25] MEDS: hydrOXYzine HCL 25 MG TABLET PO ×3 (07:44→21:06)
[2023-12-25] MEDS: Thiamine HCL 100 MG TABLET PO (07:44)
[2023-12-25] MEDS: Sertraline HCL 50 MG TABLET PO (07:44)
[2023-12-25 07:55] LABS: Hematocrit 31.4 % (42.0-52.0); Hemoglobin 10.3 g/dl (14.0-18.0); Mean Corpuscular HGB Conc 32.8 g/dl (31.0-36.0); Mean Corpuscular Hemoglobin 27.6 pg (27.0-33.0); Mean Corpuscular Volume 84.2 fL (80.0-98.0); Mean Platelet Volume 10.8 fL (9.4-12.4); Platelet Count 215 X10*3/uL (160-400); Red Blood Count 3.73 X10*6/uL (4.60-5.80); Red Cell Distribution Width 15.7 % (11.0-16.0); White Blood Count 12.4 X10*3/uL (4.8-10.8)
[2023-12-25 08:03] LABS: Alanine Aminotransferase 7 U/L (0-40); Albumin Level 3.4 g/dL (3.5-5.0); Alkaline Phosphatase 119 U/L (39-117); Anion Gap 12 (12-20); Aspartate Amino Transferase 11 U/L (5-37); Bilirubin Total 0.5 mg/dL (0.0-1.0); Blood Urea Nitrogen 12 mg/dL (9-16); Calcium 8.5 mg/dL (8.4-10.2); Carbon Dioxide 30 mmol/L (22-29); Chloride 104 mmol/L (96-108); Creatinine Clr Calc Pharmacy 125.6; Estimated Glomerular Filt Rate > 60; Glucose Random 101 mg/dL (60-115); Potassium 3.7 mmol/L (3.3-5.1); Sodium 142 mmol/L (135-145); Total Protein 5.9 g/dL (6.5-8.0)
--- NOTE | 2023-12-25 09:06 | HO.ANESPROP2 ---
[facility] Active Problems Active Problems: All Active Problems Hematemesis (Acute) Alcohol use disorder, severe, dependence (Acute) Polysubstance abuse (Acute) Pulmonary aspiration (Acute) Acute hypoxemic respiratory failure (Acute) Malnutrition (Acute) Chronic anticoagulation (Acute) Unintentional weight loss (Acute) Dysphagia (Acute) Esophagitis (Acute) Hyponatremia (Acute) Alcohol abuse with withdrawal (Acute) Intractable nausea and vomiting (Acute) Abdominal pain (Acute) Nausea & vomiting (Acute) Chronic pain syndrome (Acute) Postlaminectomy syndrome, lumbar (Acute) Opioid use disorder, severe, dependence (Acute) Acute alcohol abuse (Acute) Bronchitis (Acute) Acidosis, lactic (Acute) Depression (Acute) Suicidal ideation (Acute) Post-traumatic osteoarthritis of right knee (Acute) Valgus deformity, not elsewhere classified, right knee (Acute) Retained orthopedic hardware (Acute) Past Medical History Medical History Substance abuse EtOH dependence Hypertension Functional capacity: uses cane/walker Family History Family History Father Stomach cancer Family history of problems with anesthesia: No Surgical History Surgical History Hx of endoscopy History of total right hip replacement History of Problems with Anesthesia: No Social History Social History Household Members: None Housing: Homeless Do you presently have visiting nurse or other home services: No Alcohol intake: current Alcohol intake frequency: 3 or more drinks per day Alcohol type: beer and hard liquor Comment: 1:1 Patient Tobacco Use Status: Current someday Tobacco user Tobacco use type: Cigarette Cigarettes Per Day: 5 Years Smoked: 20 Smoked in Last 30 Days: No e-Cigarette/Vaping Use: Never Used Second Hand Smoke Exposure: Yes Use of substances other than those prescribed or required for medical reasons: No Substance Use Type: Heroin Substance Use Frequency: Chronic Longstanding Last Used Substance: Hours (ago) Any prior treatment program specific to substance use: Yes Advance Directives: No Advance Directives Information Provided: No Do you have a plan to hurt others: No Plan Nutrition Risks: No Nutritional Risk service: No Current occupational status: unemployed Sexual orientation: Straight/Heterosexual Meds Allergies Allergy/AdvReac Type Severity Reaction Status Date / Time bee pollen [BEE STINGS] Allergy Severe SWELLING Verified 12/24/23 10:51 Active Medications: Current Medications Acamprosate (Acamprosate Calcium 333 Mg Tablet.Dr) 666 mg PO TID REPLACED BY [facility] Last Admin: 12/25/23 07:44 Dose: 666 mg Acetaminophen (Acetaminophen 325 Mg Tablet) 650 mg PO Q6H PRN PRN Reason: Pain, Mild (Pain Scale 1-3) Benzonatate (Benzonatate 100 Mg Capsule) 100 mg PO TID PRN PRN Reason: Cough Docusate Sodium (Docusate Sodium 100 Mg Capsule) 100 mg PO DAILY PRN PRN Reason: Constipation Folic Acid (Folic Acid 1 Mg Tablet) 1 mg PO DAILY REPLACED BY [facility] Last Admin: 12/25/23 07:44 Dose: 1 mg Hydromorphone HCl (Hydromorphone Hcl 0.5 Mg/0.5 Ml Syringe) 0.5 mg IVPUSH Q4H PRN; Protocol PRN Reason: Pain, Severe (Pain Scale 7-10) Last Admin: 12/25/23 07:44 Dose: 0.5 mg Hydroxyzine HCl (Hydroxyzine Hcl 25 Mg Tablet) 25 mg PO TID REPLACED BY [facility] Last Admin: 12/25/23 07:44 Dose: 25 mg Lactated Ringer's (Lr) 1,000 mls @ 100 mls/hr IVCONT .Q10H REPLACED BY [facility] Last Admin: 12/25/23 05:49 Dose: 100 mls/hr Melatonin (Melatonin 3 Mg Tablet) 6 mg PO BEDTIME PRN PRN Reason: Insomnia Melatonin (Melatonin 3 Mg Tablet) 6 mg PO BEDTIME REPLACED BY [facility] Ondansetron HCl (Ondansetron Hcl 4 Mg/2 Ml Vial) 4 mg IVPUSH Q8H PRN PRN Reason: Nausea and Vomiting Pantoprazole Sodium (Pantoprazole Sodium 40 Mg/10 Ml Vial) 40 mg IVPUSH BID@0630,1630 REPLACED BY [facility] Last Admin: 12/25/23 05:49 Dose: 40 mg Pyridoxine HCl (Pyridoxine Hcl (Vitamin B6) 50 Mg Tablet) 50 mg PO DAILY REPLACED BY [facility] Last Admin: 12/25/23 07:44 Dose: 50 mg Sertraline HCl (Sertraline Hcl 50 Mg Tablet) 50 mg PO DAILY REPLACED BY [facility] Last Admin: 12/25/23 07:44 Dose: 50 mg Sodium Chloride (0.9 % Sodium Chloride Flush 3 Ml Syringe) 3 ml IVFLUSH QSHIFT REPLACED BY [facility] Last Admin: 12/25/23 07:13 Dose: Not Given Thiamine HCl (Thiamine Hcl 100 Mg Tablet) 100 mg PO DAILY REPLACED BY [facility] Last Admin: 12/25/23 07:44 Dose: 100 mg Home Medications ?Medication ?Instructions ?Recorded ?Confirmed ?Last Taken ?Type epinephrine 0.3 mg/0.3 mL 0.3 mg DIRECTED 12/24/23 12/24/23 Unknown History injection, auto-injector folic acid 1 mg tablet 1 mg QAM 12/24/23 12/24/23 Unknown History melatonin 3 mg tablet 6 mg PO BEDTIME 12/24/23 12/24/23 Unknown History pyridoxine (vitamin B6) 50 mg 50 mg DAILY 12/24/23 12/24/23 Unknown History tablet (Vitamin B-6) thiamine HCl (vitamin B1) 100 mg 100 mg QA 12/24/23 12/24/23 Unknown History tablet Exam Height,Weight and Vital Signs: Height 5 ft 11 in Weight 72.575 kg Last Vital Signs Temp 98.6 F 12/25/23 07:16 Pulse 78 12/25/23 07:16 Resp 18 12/25/23 07:16 BP 149/71 H 12/25/23 07:16 Pulse Ox 97 12/25/23 07:16 O2 Del Method Room Air 12/25/23 07:16 Pertinent Lab Results Pertinent Lab Results: Laboratory Tests 12/24/23 12/24/23 12/24/23 12:26 13:32 17:15 WBC 18.3 H RBC 4.67 Hgb 12.8 L Hct 38.4 L MCV 82.2 MCH 27.4 MCHC 33.3 RDW 15.7 Plt Count 288 MPV 9.8 Immature Gran % (Auto) 0.8 H Neut % (Auto) 86.7 H Lymph % (Auto) 7.5 L [place] % (Auto) 4.7 Eos % (Auto) 0.0 Baso % (Auto) 0.3 Lymph # (Auto) 1.4 [place] # (Auto) 0.9 Eos # (Auto) 0.0 Baso # (Auto) 0.1 Abs Immat Gran (auto) 0.15 H Absolute Neuts (auto) 15.8 H Absolute Nucleated RBC 0.000 Nucleated RBC % (auto) 0.0 PT 12.3 INR 1.0 APTT 22.4 L Sodium 143 Potassium 3.1 L Chloride 96 Carbon Dioxide 34 H Anion Gap 16 BUN 21 H Creatinine 0.80 Estim Creat Clear Calc 102.0 Estimated GFR > 60 Random Glucose 144 H Calcium 9.9 D Magnesium 1.9 Total Bilirubin 0.4 Direct Bilirubin 0.2 AST 12 ALT 10 Alkaline Phosphatase 143 H Troponin I High Sens 4.6 D 8.0 D Total Protein 7.5 Albumin 4.3 Lipase 61 Urine Opiates Screen Not Detected Ur Buprenorphine Scrn Not Detected Ur Oxycodone Screen Not Detected Urine Methadone Screen Not Detected Urine Fentanyl Screen POSITIVE H Ur Barbiturates Screen Not Detected Ur Phencyclidine Scrn Not Detected Ur Amphetamines Screen Not Detected U Benzodiazepines Scrn Not Detected Urine Cocaine Screen Not Detected U Marijuana (THC) Screen Not Detected Ethyl Alcohol < 10 Blood Type B Positive Antibody Screen NEGATIVE 12/24/23 12/24/23 12/24/23 18:25 18:25 18:25 WBC 17.1 H 17.2 H RBC 4.04 L 4.06 L Hgb 11.2 L Hct MCV MCH MCHC RDW Plt Count MPV Immature Gran % (Auto) Neut % (Auto) Lymph % (Auto) [place] % (Auto) Eos % (Auto) Baso % (Auto) Lymph # (Auto) [place] # (Auto) Eos # (Auto) Baso # (Auto) Abs Immat Gran (auto) Absolute Neuts (auto) Absolute Nucleated RBC Nucleated RBC % (auto) PT INR APTT Sodium Potassium Chloride Carbon Dioxide Anion Gap BUN Creatinine Estim Creat Clear Calc Estimated GFR Random Glucose Calcium Magnesium Total Bilirubin Direct Bilirubin AST ALT Alkaline Phosphatase Troponin I High Sens Total Protein Albumin Lipase Urine Opiates Screen Ur Buprenorphine Scrn Ur Oxycodone Screen Urine Methadone Screen Urine Fentanyl Screen Ur Barbiturates Screen Ur Phencyclidine Scrn Ur Amphetamines Screen U Benzodiazepines Scrn Urine Cocaine Screen U Marijuana (THC) Screen Ethyl Alcohol Blood Type Antibody Screen 12/24/23 12/24/23 12/24/23 18:25 18:25 18:25 WBC RBC Hgb 11.1 L Hct 33.7 L 33.6 L MCV 83.4 82.8 MCH 27.7 MCHC RDW Plt Count MPV Immature Gran % (Auto) Neut % (Auto) Lymph % (Auto) [place] % (Auto) Eos % (Auto) Baso % (Auto) Lymph # (Auto) [place] # (Auto) Eos # (Auto) Baso # (Auto) Abs Immat Gran (auto) Absolute Neuts (auto) Absolute Nucleated RBC Nucleated RBC % (auto) PT INR APTT Sodium Potassium Chloride Carbon Dioxide Anion Gap BUN Creatinine Estim Creat Clear Calc Estimated GFR Random Glucose Calcium Magnesium Total Bilirubin Direct Bilirubin AST ALT Alkaline Phosphatase Troponin I High Sens Total Protein Albumin Lipase Urine Opiates Screen Ur Buprenorphine Scrn Ur Oxycodone Screen Urine Methadone Screen Urine Fentanyl Screen Ur Barbiturates Screen Ur Phencyclidine Scrn Ur Amphetamines Screen U Benzodiazepines Scrn Urine Cocaine Screen U Marijuana (THC) Screen Ethyl Alcohol Blood Type Antibody Screen 12/24/23 12/24/23 12/24/23 18:25 18:25 18:25 WBC RBC Hgb Hct MCV MCH 27.3 MCHC 33.2 33.0 RDW 15.8 15.8 Plt Count 241 MPV Immature Gran % (Auto) Neut % (Auto) Lymph % (Auto) [place] % (Auto) Eos % (Auto) Baso % (Auto) Lymph # (Auto) [place] # (Auto) Eos # (Auto) Baso # (Auto) Abs Immat Gran (auto) Absolute Neuts (auto) Absolute Nucleated RBC Nucleated RBC % (auto) PT INR APTT Sodium Potassium Chloride Carbon Dioxide Anion Gap BUN Creatinine Estim Creat Clear Calc Estimated GFR Random Glucose Calcium Magnesium Total Bilirubin Direct Bilirubin AST ALT Alkaline Phosphatase Troponin I High Sens Total Protein Albumin Lipase Urine Opiates Screen Ur Buprenorphine Scrn Ur Oxycodone Screen Urine Methadone Screen Urine Fentanyl Screen Ur Barbiturates Screen Ur Phencyclidine Scrn Ur Amphetamines Screen U Benzodiazepines Scrn Urine Cocaine Screen U Marijuana (THC) Screen Ethyl Alcohol Blood Type Antibody Screen 12/24/23 12/24/23 12/24/23 18:25 18:25 18:25 WBC RBC Hgb Hct MCV MCH MCHC RDW Plt Count 247 MPV 9.4 9.4 Immature Gran % (Auto) 0.6 H Neut % (Auto) 81.2 H Lymph % (Auto) 12.3 L [place] % (Auto) 5.5 Eos % (Auto) 0.1 Baso % (Auto) 0.3 Lymph # (Auto) 2.1 [place] # (Auto) 0.9 Eos # (Auto) 0.0 Baso # (Auto) 0.1 Abs Immat Gran (auto) 0.11 H Absolute Neuts (auto) 14.0 H Absolute Nucleated RBC 0.000 0.000 Nucleated RBC % (auto) 0.0 PT INR APTT Sodium Potassium Chloride Carbon Dioxide Anion Gap BUN Creatinine Estim Creat Clear Calc Estimated GFR Random Glucose Calcium Magnesium Total Bilirubin Direct Bilirubin AST ALT Alkaline Phosphatase Troponin I High Sens Total Protein Albumin Lipase Urine Opiates Screen Ur Buprenorphine Scrn Ur Oxycodone Screen Urine Methadone Screen Urine Fentanyl Screen Ur Barbiturates Screen Ur Phencyclidine Scrn Ur Amphetamines Screen U Benzodiazepines Scrn Urine Cocaine Screen U Marijuana (THC) Screen Ethyl Alcohol Blood Type Antibody Screen 12/24/23 12/25/23 18:25 06:54 WBC 12.4 H RBC 3.73 L Hgb 10.3 L Hct 31.4 L MCV 84.2 MCH 27.6 MCHC 32.8 RDW 15.7 Plt Count 215 MPV 10.8 Immature Gran % (Auto) Neut % (Auto) Lymph % (Auto) [place] % (Auto) Eos % (Auto) Baso % (Auto) Lymph # (Auto) [place] # (Auto) Eos # (Auto) Baso # (Auto) Abs Immat Gran (auto) Absolute Neuts (auto) Absolute Nucleated RBC 0.000 Nucleated RBC % (auto) 0.0 0.0 PT INR APTT Sodium 139 142 Potassium 3.5 3.7 Chloride 101 104 Carbon Dioxide 28 30 H Anion Gap 14 12 BUN 19 H 12 Creatinine 0.67 0.65 Estim Creat Clear Calc 121.8 125.6 Estimated GFR > 60 > 60 Random Glucose 121 H 101 Calcium 8.9 D 8.5 Magnesium Total Bilirubin 0.5 Direct Bilirubin AST 11 ALT 7 Alkaline Phosphatase 119 H Troponin I High Sens Total Protein 5.9 L Albumin 3.4 L Lipase Urine Opiates Screen Ur Buprenorphine Scrn Ur Oxycodone Screen Urine Methadone Screen Urine Fentanyl Screen Ur Barbiturates Screen Ur Phencyclidine Scrn Ur Amphetamines Screen U Benzodiazepines Scrn Urine Cocaine Screen U Marijuana (THC) Screen Ethyl Alcohol Blood Type Antibody Screen Airway Mallampati Class: II TM Dist: >3cm Neck ROM: Full Heart: RRR Lungs: C CTA Assessment and Plan Final Anesthetic Review Family History of Problems with Anesthesia: No History of Problems with Anesthesia: No NPO: Yes ASA Class: III and Emergency Final Preanesthetic Review: Meds/Allgs Chart Reviewed, Consent Obtained/Reviewed and Anes Risks/Benef Reviewed Patient Risk: Intermediate Procedure Risk: Low Anesthetic Plan Anesthetic Plan: MAC: Disposition: Standard PACU
--- NOTE | 2023-12-25 09:51 | W.PM.OPN ---
Operative Note Operative Note Date of Service: 12/25/23 Narrative: FLEXIBLE TRANSORAL UPPER GASTROINTESTINAL ENDOSCOPY WITH BIOPSIES AND ESOPHAGEAL BRUSHING Pre-op diagnosis: GERD, UGI bleeding Post-op diagnosis: GERD, severe esophagitis, Gastritis, Endoscopist:? Brannon Carl MD Anesthesia:?MAC UPPER ENDOSCOPY Consent: Indications for the procedure and potential complications of bleeding, perforation, reaction to medications and missed diagnosis were discussed with the patient and informed consent was obtained. Instrument: Olympus GIF H 190 mid size upper endoscope Monitoring: Vital signs and clinical assessment, continuous EKG monitoring, Pulse oximetry, Carbon Dioxide monitoring and blood pressure monitoring were done throughout the procedure. Procedure: The patient was placed in the left lateral decubitis position and pre-procedure medications were administered and a bite block was placed. The endoscope was inserted into the mouth and advanced under direct vision to the third part of duodenum. A careful inspection was made as the upper endoscope was withdrawn including a retroflexed examination of the proximal stomach; Findings and interventions are described below. Findings: Larynx: Normal Esophagus: GE junction at 40 cms. Circumferential ulcer seen from 30 to 40 cms with thick yellow exudate. A 15 mm nodule/polyp at 39 cms - (hyperplastic changes on biopsies obtained during last EGD). Esophageal brushings were obtained to check for esophageal candidiasis. Stomach: Mild gastric erythema. Biopsies were obtained. Grade 2 flap valve and no gastric varices noted on retroflexed examination of the cardia. Duodenum: Normal bulb and a small margy-ampullary diverticulum in the medial wall of descending duodenum Intervention: Biopsies and esophageal brushings as noted above Impression and Post Procedure Diagnosis: Endoscopy Findings: ESOPHAGUS: Circumferential ulcer seen from 30 to 40 cms with thick yellow exudate. A 15 mm nodule/polyp at 39 cms - (hyperplastic changes on biopsies obtained during last EGD). Esophageal brushings were obtained to check for esophageal candidiasis. STOMACH: Mild antral gastritis No blood or potential source for UGI bleeding noted on EGD. Recent episode of hematemesia likely from severe erosive esophagitis Plan: 1. Follow CBC daily 2. Switch to PO PPI twice daily and continue indefinitely 3. Fluconazole 400 mg IV today and 400 mg PO daily for 14 days for esophageal candidiasis 4. Repeat EGD with same day colonoscopy in 3 - 4 months as outpatient Above findings were reviewed with the patient. Patient will be scheduled for a FU appointment in the GI Clinic with Brannon Carl M.D.
[2023-12-25] MEDS: Fluconazole in NaCl,Iso-Osm 400 MG/200 ML PIGGYBACK 100 MG IV (10:47)
[2023-12-25 11:12] LABS: Appearance Urine Clear; Color Urine Yellow; Glucose Urine UA Negative (Negative); Leukocyte Esterase Urine Trace (Negative); Nitrite Urine Negative (Negative); PH >= 9.0 (5.0-9.0); Specific Gravity - Urine 1.025 (1.005-1.025); UMIC TRIGGER UACC YES; Urine Blood Negative (Negative); Urine Ketones Negative (Negative); Urine Protein 300 (3+) mg/dL (Neg-Trace)
[2023-12-25 11:14] LABS: Bacteria Urine None Seen (None Seen); RBC Urine 0-2 /HPF (0-2); Squamous Epithelial Cell Urine 0-2 /HPF (0-2); WBC Urine 0-5 /HPF (0-5)
--- NOTE | 2023-12-25 11:29 | PC.NURSE ---
reported pt's bp to md and that pt requested methadone. methadone clinic in [place]
--- NOTE | 2023-12-25 13:55 | P.PNIM_ITS ---
Subjective Subjective Date of Service: 12/25/23 Interval History: alcohol use ,possible esophagitis Review of Systems no new episode of nausea vomiting has hip pain no fevers or chills Physical Exam 2 Vital Signs: Vital Signs: Last Vital Signs Temp 97.7 F 12/25/23 11:26 Pulse 69 12/25/23 11:26 Resp 18 12/25/23 11:26 BP 173/81 H 12/25/23 11:26 Pulse Ox 96 12/25/23 11:26 O2 Del Method Room Air 12/25/23 11:26 BMI result Body Mass Index 22.3 Appearance: Alert.? Oriented X3.? cvs: rrr, [id number] , no murmur res: clear to auscultation ,no rhonchii or wheezing abd: no rebound or guarding ,nt, bs present. ext pulses present , no cyanosis. Mild left thigh tenderness. No loss of ROM of leg noted. neuro: axo3 , nonfocal. Objective Data Active Medications Acamprosate (Acamprosate Calcium 333 Mg Tablet.) 666 mg PO TID [facility] Last Admin: 12/25/23 07:44 Dose: 666 mg Documented By: SHIRIN Acetaminophen (Acetaminophen 325 Mg Tablet) 650 mg PO Q6H PRN PRN Reason: Pain, Mild (Pain Scale 1-3) Benzonatate (Benzonatate 100 Mg Capsule) 100 mg PO TID PRN PRN Reason: Cough Docusate Sodium (Docusate Sodium 100 Mg Capsule) 100 mg PO DAILY PRN PRN Reason: Constipation Folic Acid (Folic Acid 1 Mg Tablet) 1 mg PO DAILY [facility] Last Admin: 12/25/23 07:44 Dose: 1 mg Documented By: SHIRIN Hydromorphone HCl (Hydromorphone Hcl 0.5 Mg/0.5 Ml Syringe) 0.5 mg IVPUSH Q4H PRN; Protocol PRN Reason: Pain, Severe (Pain Scale 7-10) Last Admin: 12/25/23 13:07 Dose: 0.5 mg Documented By: CAROLINA Hydroxyzine HCl (Hydroxyzine Hcl 25 Mg Tablet) 25 mg PO TID [facility] Last Admin: 12/25/23 07:44 Dose: 25 mg Documented By: SHIRIN Lactated Ringer's (Lr) 1,000 mls @ 100 mls/hr IVCONT .Q10H [facility] Last Admin: 12/25/23 05:49 Dose: 100 mls/hr Documented By: KARTHIKEYAN Melatonin (Melatonin 3 Mg Tablet) 6 mg PO BEDTIME PRN PRN Reason: Insomnia Melatonin (Melatonin 3 Mg Tablet) 6 mg PO BEDTIME [facility] Ondansetron HCl (Ondansetron Hcl 4 Mg/2 Ml Vial) 4 mg IVPUSH Q8H PRN PRN Reason: Nausea and Vomiting Pantoprazole Sodium (Pantoprazole Sodium 40 Mg/10 Ml Vial) 40 mg IVPUSH BID@0630,1630 [facility] Last Admin: 12/25/23 05:49 Dose: 40 mg Documented By: KARTHIKEYAN Pyridoxine HCl (Pyridoxine Hcl (Vitamin B6) 50 Mg Tablet) 50 mg PO DAILY [facility] Last Admin: 12/25/23 07:44 Dose: 50 mg Documented By: SHIRIN Sertraline HCl (Sertraline Hcl 50 Mg Tablet) 50 mg PO DAILY [facility] Last Admin: 12/25/23 07:44 Dose: 50 mg Documented By: SHIRIN Sodium Chloride (0.9 % Sodium Chloride Flush 3 Ml Syringe) 3 ml IVFLUSH QSHIFT [facility] Last Admin: 12/25/23 11:18 Dose: Not Given Documented By: SHIRIN Non-Admin Reason: Previously Administered Thiamine HCl (Thiamine Hcl 100 Mg Tablet) 100 mg PO DAILY [facility] Last Admin: 12/25/23 07:44 Dose: 100 mg Documented By: SHIRIN Labs 12/25/23 06:54 12/25/23 06:54 Labs: Laboratory Results - last 24 hr 12/24/23 12/24/23 12/24/23 12:26 13:32 17:15 MCV MCH MCHC RDW Plt Count MPV Immature Gran % (Auto) Neut % (Auto) Lymph % (Auto) [place] % (Auto) Eos % (Auto) Baso % (Auto) Lymph # (Auto) [place] # (Auto) Eos # (Auto) Baso # (Auto) Abs Immat Gran (auto) Absolute Neuts (auto) Absolute Nucleated RBC Nucleated RBC % (auto) Anion Gap Estim Creat Clear Calc Estimated GFR Random Glucose Calcium Total Bilirubin AST ALT Alkaline Phosphatase Troponin I High Sens 4.6 D 8.0 D Total Protein Albumin Urine Color Yellow Urine Appearance Clear Urine pH >= 9.0 Ur Specific [place] 1.025 Urine Protein 300 (3+) H Urine Glucose (UA) Negative Urine Ketones Negative Urine Blood Negative Urine Nitrite Negative Ur Leukocyte Esterase Trace H Urine RBC 0-2 Urine WBC 0-5 Ur Squamous Epith Cells 0-2 Urine Bacteria None Seen Hyaline Casts 3-5 12/24/23 12/24/23 12/24/23 18:25 18:25 18:25 MCV 83.4 82.8 MCH 27.7 27.3 MCHC 33.2 RDW Plt Count MPV Immature Gran % (Auto) Neut % (Auto) Lymph % (Auto) [place] % (Auto) Eos % (Auto) Baso % (Auto) Lymph # (Auto) [place] # (Auto) Eos # (Auto) Baso # (Auto) Abs Immat Gran (auto) Absolute Neuts (auto) Absolute Nucleated RBC Nucleated RBC % (auto) Anion Gap Estim Creat Clear Calc Estimated GFR Random Glucose Calcium Total Bilirubin AST ALT Alkaline Phosphatase Troponin I High Sens Total Protein Albumin Urine Color Urine Appearance Urine pH Ur Specific [place] Urine Protein Urine Glucose (UA) Urine Ketones Urine Blood Urine Nitrite Ur Leukocyte Esterase Urine RBC Urine WBC Ur Squamous Epith Cells Urine Bacteria Hyaline Casts 12/24/23 12/24/23 12/24/23 18:25 18:25 18:25 MCV MCH MCHC 33.0 RDW 15.8 15.8 Plt Count 241 247 MPV 9.4 Immature Gran % (Auto) Neut % (Auto) Lymph % (Auto) [place] % (Auto) Eos % (Auto) Baso % (Auto) Lymph # (Auto) [place] # (Auto) Eos # (Auto) Baso # (Auto) Abs Immat Gran (auto) Absolute Neuts (auto) Absolute Nucleated RBC Nucleated RBC % (auto) Anion Gap Estim Creat Clear Calc Estimated GFR Random Glucose Calcium Total Bilirubin AST ALT Alkaline Phosphatase Troponin I High Sens Total Protein Albumin Urine Color Urine Appearance Urine pH Ur Specific [place] Urine Protein Urine Glucose (UA) Urine Ketones Urine Blood Urine Nitrite Ur Leukocyte Esterase Urine RBC Urine WBC Ur Squamous Epith Cells Urine Bacteria Hyaline Casts 12/24/23 12/24/23 12/24/23 18:25 18:25 18:25 MCV MCH MCHC RDW Plt Count MPV 9.4 Immature Gran % (Auto) 0.6 H Neut % (Auto) 81.2 H Lymph % (Auto) 12.3 L [place] % (Auto) 5.5 Eos % (Auto) 0.1 Baso % (Auto) 0.3 Lymph # (Auto) 2.1 [place] # (Auto) 0.9 Eos # (Auto) 0.0 Baso # (Auto) 0.1 Abs Immat Gran (auto) 0.11 H Absolute Neuts (auto) 14.0 H Absolute Nucleated RBC 0.000 0.000 Nucleated RBC % (auto) 0.0 0.0 Anion Gap 14 Estim Creat Clear Calc 121.8 Estimated GFR > 60 Random Glucose 121 H Calcium 8.9 D Total Bilirubin AST ALT Alkaline Phosphatase Troponin I High Sens Total Protein Albumin Urine Color Urine Appearance Urine pH Ur Specific [place] Urine Protein Urine Glucose (UA) Urine Ketones Urine Blood Urine Nitrite Ur Leukocyte Esterase Urine RBC Urine WBC Ur Squamous Epith Cells Urine Bacteria Hyaline Casts 12/25/23 06:54 MCV 84.2 MCH 27.6 MCHC 32.8 RDW 15.7 Plt Count 215 MPV 10.8 Immature Gran % (Auto) Neut % (Auto) Lymph % (Auto) [place] % (Auto) Eos % (Auto) Baso % (Auto) Lymph # (Auto) [place] # (Auto) Eos # (Auto) Baso # (Auto) Abs Immat Gran (auto) Absolute Neuts (auto) Absolute Nucleated RBC 0.000 Nucleated RBC % (auto) 0.0 Anion Gap 12 Estim Creat Clear Calc 125.6 Estimated GFR > 60 Random Glucose 101 Calcium 8.5 Total Bilirubin 0.5 AST 11 ALT 7 Alkaline Phosphatase 119 H Troponin I High Sens Total Protein 5.9 L Albumin 3.4 L Urine Color Urine Appearance Urine pH Ur Specific [place] Urine Protein Urine Glucose (UA) Urine Ketones Urine Blood Urine Nitrite Ur Leukocyte Esterase Urine RBC Urine WBC Ur Squamous Epith Cells Urine Bacteria Hyaline Casts Assessment and Plan (1) Hematemesis: Status: Acute (2) Esophagitis: Status: Acute Plan 58-year-old male with a PMH significant for alcohol use disorder with history of withdrawal,?HTN, hx of PE on Eliquis, and opiate use disorder on methadone who presents to the ED with?abdominal and left leg pain. Pt will be admitted to the hospital for treatment and further evaluation of upper GI bleed in the setting of alcoholic use disorder. Upper GI bleed In the setting of alcohol use disorder Pt with epigastric pain and coffee-ground emesis x2 while in the ED Concerning for alcoholic gastritis h/h stable s/p egd-esophageal ulcer, gastritis Plan: Continue PPI, monitor CBC, fluconazole, repeat EGD/colonoscopy in 3-4 months PCT brushings/biopsy were sent and pending Alcohol use disorder Drinking up to 1L vodka daily Currently not in acute withdrawal Monitor on CIWa Continue thiamine, folic acid, multivitamin, Protonix,Addiction medicine consult Monitor on telemetry Left femur fracture Pt should be non-weightbearing ed d/w ortho-Has been non-compliant, walking at home with multiple falls added ortho eval Leukocytosis: Likely reactive Trending down Asymptomatic UA, CXR-negative Hx of PE Hold Eliquis due to UGIB, GI recommended to hold anticoagulation for 5 days. Opioid use disorder Continue methadone once dose verified HTn Continue lisinopril Full Code DVT Prophylaxis: Pneumatic boots due to upper GI bleed Ongoing hospitalization of for treatment of?upper GI bleed in setting of alcohol use disorder,, possible candidal esophagitis, esophageal ulcer: Need IV ppi, fluconazole ,close monitoring of H&H, electrolytes, and GI follow-up. Quality Stroke Does the patient have a stroke diagnosis?: No VTE Prior VTE?: No VTE Risk Level:: Medical - moderate - high VTE Device Contraindication: N/A - Device Ordered VTE Drug Contraindication: Treatment Not Indicated
--- NOTE | 2023-12-25 14:27 | PM.EVENT ---
Event Note Date of Service: 12/25/23 Event Note: patient w lesser troch fx pwb w walker no abduction follow uonoutpatient Time Spent With Patient Time: Total time managing care of this patient today ____ minutes.
[2023-12-25] MEDS: HYDROmorphone HCl 1 MG/ML SYRINGE IVPUSH (15:33)
[2023-12-25] MEDS: Lidocaine 4 % Patch ADH..PATCH 1 PATCH TRANSDERMA (15:33)
--- NOTE | 2023-12-25 16:26 | MHC.CM.PN ---
PT REPORTS HE LIVES WITH A FRIEND AND HOUSING IS STABLE HE IS INDEPENDENT WITH CARE AND USES A [facility]UT[facility] SINCE A RECENT FEMUR FRACTURE HE HAS A HCP ON FILE HE CONFIRMS IS ACCURATE PCP: ANDREA MOORE DCP TBD PT REPORTS HE MAY BE GOING TO STR VS HOME WITH NO SERVICES TRANSPORT TBD BY DISPOSITION
[2023-12-25] MEDS: 0.9 % Sodium Chloride Flush 3 ML SYRINGE IVFLUSH (21:06)
[2023-12-25] MEDS: Melatonin 3 MG TABLET 6 MG PO (21:06)
[2023-12-26] VITALS (10 sets, daily range): BP systolic 102–171; BP diastolic 56–82; PULSE 47–81; RESP 14–18; TEMP 36.4–37.3; O2SAT 94–99
[2023-12-26] MEDS: ondansetron HCL 4 MG/2 ML VIAL IVPUSH ×3 (01:34→20:47)
[2023-12-26] MEDS: Lactated Ringers 1,000 ML 100 ML IVCONT ×2 (01:38→11:32)
[2023-12-26] MEDS: Pantoprazole Sodium 40 MG/10 ML VIAL IVPUSH ×2 (06:49→15:45)
[2023-12-26] MEDS: HYDROmorphone HCl 0.5 MG/0.5 ML SYRINGE IVPUSH ×3 (06:49→20:37)
[2023-12-26 07:19] LABS: Hematocrit 29.6 % (42.0-52.0); Hemoglobin 9.8 g/dl (14.0-18.0); Mean Corpuscular HGB Conc 33.1 g/dl (31.0-36.0); Mean Corpuscular Hemoglobin 27.4 pg (27.0-33.0); Mean Corpuscular Volume 82.7 fL (80.0-98.0); Mean Platelet Volume 9.7 fL (9.4-12.4); Platelet Count 216 X10*3/uL (160-400); Red Blood Count 3.58 X10*6/uL (4.60-5.80); White Blood Count 13.5 X10*3/uL (4.8-10.8)
[2023-12-26 07:24] LABS: Anion Gap 11 (12-20); Blood Urea Nitrogen 8 mg/dL (9-16); Calcium 8.5 mg/dL (8.4-10.2); Carbon Dioxide 30 mmol/L (22-29); Chloride 103 mmol/L (96-108); Creatinine Clr Calc Pharmacy 121.8; Estimated Glomerular Filt Rate > 60; Glucose Random 98 mg/dL (60-115); Potassium 3.4 mmol/L (3.3-5.1); Sodium 141 mmol/L (135-145)
[2023-12-26] MEDS: Lidocaine 4 % Patch ADH..PATCH 1 PATCH TRANSDERMA (09:01)
[2023-12-26] MEDS: Pyridoxine HCl (Vitamin B6) 50 MG TABLET PO (09:02)
[2023-12-26] MEDS: Fluconazole 100 MG TABLET PO (09:02)
[2023-12-26] MEDS: Acetaminophen 325 MG TABLET 650 MG PO ×2 (09:02→15:43)
[2023-12-26] MEDS: Thiamine HCL 100 MG TABLET PO (09:02)
[2023-12-26] MEDS: Folic Acid 1 MG TABLET PO (09:02)
[2023-12-26] MEDS: hydrOXYzine HCL 25 MG TABLET PO ×3 (09:03→20:39)
[2023-12-26] MEDS: Sertraline HCL 50 MG TABLET PO (09:03)
[2023-12-26] MEDS: Acamprosate Calcium 333 MG TABLET.DR 666 MG PO ×3 (09:03→20:39)
[2023-12-26] MEDS: 0.9 % Sodium Chloride Flush 3 ML SYRINGE IVFLUSH ×3 (09:03→21:09)
--- NOTE | 2023-12-26 10:39 | HO.ADDICT_ITS ---
History of Present Illness Date of Service: 12/26/23 Chief Complaint: Coffee ground emesis,likely UGIB Reason for Consult: opiate withdrawal Alcohol withdrawal Sources of Information: patient interviewed and chart reviewed HPI Narrative: Patient medically admitted with alcohol withdrawal and question of UGIB. Patient seen in room 467. He was awake, alert and appearing very uncomfortable He reports he is experiencing withdrawal from methadone as he has not had it since earlier this month, he believes his dose is 30mg daily (verified by RN at 27mg last dose on 12/15). He emphatically denies any opioid use in the last several weeks. In terms of withdrawal sx, he is reporting body aches, chills, anxiety, restlessness. He states that opiates are not an issue for him, but alcohol has quickly become an issue for him again. He reports that he had not had any alcohol for about 4 months, then started drinking again. Admission note reports a liter of vodka daily. Past Psychiatric History: hosps: denies SA: denies. reports index event was a cry for help. SIB: denies HIB: denies outpt: no h/o outpt Tx Primary care provider prescribes Cymbalta and sertraline. Review of Systems Constitutional: Reports as per HPI Diagnostics Vital Signs (24Hr): Vital Signs - 24 hr 12/25/23 11:26 12/25/23 15:35 12/25/23 16:29 Temperature 97.7 F 96.5 F L 97.5 F Pulse Rate 69 77 Respiratory Rate 18 20 Blood Pressure 173/81 H 181/86 H Pulse Oximetry 96 97 Oxygen Delivery Method Room Air Room Air 12/25/23 19:52 12/26/23 00:00 12/26/23 04:00 Temperature 98.7 F 97.9 F 98.0 F Pulse Rate 80 81 80 Respiratory Rate 18 18 18 Blood Pressure 144/81 H 153/74 H 121/62 Pulse Oximetry 95 99 94 Oxygen Delivery Method Room Air Room Air Room Air 12/26/23 07:28 Temperature 99.1 F Pulse Rate 63 Respiratory Rate 18 Blood Pressure 143/74 H Pulse Oximetry 96 Oxygen Delivery Method Room Air BMI result Body Mass Index 22.3 Labs 12/26/23 06:25 12/26/23 06:25 Labs: Laboratory Results - last 48 hr 12/24/23 12/24/23 12/24/23 12:26 13:32 17:15 WBC 18.3 H RBC 4.67 Hgb 12.8 L Hct 38.4 L MCV 82.2 MCH 27.4 MCHC 33.3 RDW 15.7 Plt Count 288 MPV 9.8 Immature Gran % (Auto) 0.8 H Neut % (Auto) 86.7 H Lymph % (Auto) 7.5 L [place] % (Auto) 4.7 Eos % (Auto) 0.0 Baso % (Auto) 0.3 Lymph # (Auto) 1.4 [place] # (Auto) 0.9 Eos # (Auto) 0.0 Baso # (Auto) 0.1 Abs Immat Gran (auto) 0.15 H Absolute Neuts (auto) 15.8 H Absolute Nucleated RBC 0.000 Nucleated RBC % (auto) 0.0 PT 12.3 INR 1.0 APTT 22.4 L Sodium 143 Potassium 3.1 L Chloride 96 Carbon Dioxide 34 H Anion Gap 16 BUN 21 H Creatinine 0.80 Estim Creat Clear Calc 102.0 Estimated GFR > 60 Random Glucose 144 H Calcium 9.9 D Magnesium 1.9 Total Bilirubin 0.4 Direct Bilirubin 0.2 AST 12 ALT 10 Alkaline Phosphatase 143 H Troponin I High Sens 4.6 D 8.0 D Total Protein 7.5 Albumin 4.3 Lipase 61 Urine Color Yellow Urine Appearance Clear Urine pH >= 9.0 Ur Specific Opal 1.025 Urine Protein 300 (3+) H Urine Glucose (UA) Negative Urine Ketones Negative Urine Blood Negative Urine Nitrite Negative Ur Leukocyte Esterase Trace H Urine RBC 0-2 Urine WBC 0-5 Ur Squamous Epith Cells 0-2 Urine Bacteria None Seen Hyaline Casts 3-5 Urine Opiates Screen Not Detected Ur Buprenorphine Scrn Not Detected Ur Oxycodone Screen Not Detected Urine Methadone Screen Not Detected Urine Fentanyl Screen POSITIVE H Ur Barbiturates Screen Not Detected Ur Phencyclidine Scrn Not Detected Ur Amphetamines Screen Not Detected U Benzodiazepines Scrn Not Detected Urine Cocaine Screen Not Detected U Marijuana (THC) Screen Not Detected Ethyl Alcohol < 10 Blood Type B Positive Antibody Screen NEGATIVE 12/24/23 12/24/23 12/24/23 18:25 18:25 18:25 WBC 17.1 H 17.2 H RBC 4.04 L 4.06 L Hgb 11.2 L Hct MCV MCH MCHC RDW Plt Count MPV Immature Gran % (Auto) Neut % (Auto) Lymph % (Auto) [place] % (Auto) Eos % (Auto) Baso % (Auto) Lymph # (Auto) [place] # (Auto) Eos # (Auto) Baso # (Auto) Abs Immat Gran (auto) Absolute Neuts (auto) Absolute Nucleated RBC Nucleated RBC % (auto) PT INR APTT Sodium Potassium Chloride Carbon Dioxide Anion Gap BUN Creatinine Estim Creat Clear Calc Estimated GFR Random Glucose Calcium Magnesium Total Bilirubin Direct Bilirubin AST ALT Alkaline Phosphatase Troponin I High Sens Total Protein Albumin Lipase Urine Color Urine Appearance Urine pH Ur Specific Opal Urine Protein Urine Glucose (UA) Urine Ketones Urine Blood Urine Nitrite Ur Leukocyte Esterase Urine RBC Urine WBC Ur Squamous Epith Cells Urine Bacteria Hyaline Casts Urine Opiates Screen Ur Buprenorphine Scrn Ur Oxycodone Screen Urine Methadone Screen Urine Fentanyl Screen Ur Barbiturates Screen Ur Phencyclidine Scrn Ur Amphetamines Screen U Benzodiazepines Scrn Urine Cocaine Screen U Marijuana (THC) Screen Ethyl Alcohol Blood Type Antibody Screen 12/24/23 12/24/23 12/24/23 18:25 18:25 18:25 WBC RBC Hgb 11.1 L Hct 33.7 L 33.6 L MCV 83.4 82.8 MCH 27.7 MCHC RDW Plt Count MPV Immature Gran % (Auto) Neut % (Auto) Lymph % (Auto) [place] % (Auto) Eos % (Auto) Baso % (Auto) Lymph # (Auto) [place] # (Auto) Eos # (Auto) Baso # (Auto) Abs Immat Gran (auto) Absolute Neuts (auto) Absolute Nucleated RBC Nucleated RBC % (auto) PT INR APTT Sodium Potassium Chloride Carbon Dioxide Anion Gap BUN Creatinine Estim Creat Clear Calc Estimated GFR Random Glucose Calcium Magnesium Total Bilirubin Direct Bilirubin AST ALT Alkaline Phosphatase Troponin I High Sens Total Protein Albumin Lipase Urine Color Urine Appearance Urine pH Ur Specific Opal Urine Protein Urine Glucose (UA) Urine Ketones Urine Blood Urine Nitrite Ur Leukocyte Esterase Urine RBC Urine WBC Ur Squamous Epith Cells Urine Bacteria Hyaline Casts Urine Opiates Screen Ur Buprenorphine Scrn Ur Oxycodone Screen Urine Methadone Screen Urine Fentanyl Screen Ur Barbiturates Screen Ur Phencyclidine Scrn Ur Amphetamines Screen U Benzodiazepines Scrn Urine Cocaine Screen U Marijuana (THC) Screen Ethyl Alcohol Blood Type Antibody Screen 12/24/23 12/24/23 12/24/23 18:25 18:25 18:25 WBC RBC Hgb Hct MCV MCH 27.3 MCHC 33.2 33.0 RDW 15.8 15.8 Plt Count 241 MPV Immature Gran % (Auto) Neut % (Auto) Lymph % (Auto) [place] % (Auto) Eos % (Auto) Baso % (Auto) Lymph # (Auto) [place] # (Auto) Eos # (Auto) Baso # (Auto) Abs Immat Gran (auto) Absolute Neuts (auto) Absolute Nucleated RBC Nucleated RBC % (auto) PT INR APTT Sodium Potassium Chloride Carbon Dioxide Anion Gap BUN Creatinine Estim Creat Clear Calc Estimated GFR Random Glucose Calcium Magnesium Total Bilirubin Direct Bilirubin AST ALT Alkaline Phosphatase Troponin I High Sens Total Protein Albumin Lipase Urine Color Urine Appearance Urine pH Ur Specific Opal Urine Protein Urine Glucose (UA) Urine Ketones Urine Blood Urine Nitrite Ur Leukocyte Esterase Urine RBC Urine WBC Ur Squamous Epith Cells Urine Bacteria Hyaline Casts Urine Opiates Screen Ur Buprenorphine Scrn Ur Oxycodone Screen Urine Methadone Screen Urine Fentanyl Screen Ur Barbiturates Screen Ur Phencyclidine Scrn Ur Amphetamines Screen U Benzodiazepines Scrn Urine Cocaine Screen U Marijuana (THC) Screen Ethyl Alcohol Blood Type Antibody Screen 12/24/23 12/24/23 12/24/23 18:25 18:25 18:25 WBC RBC Hgb Hct MCV MCH MCHC RDW Plt Count 247 MPV 9.4 9.4 Immature Gran % (Auto) 0.6 H Neut % (Auto) 81.2 H Lymph % (Auto) 12.3 L [place] % (Auto) 5.5 Eos % (Auto) 0.1 Baso % (Auto) 0.3 Lymph # (Auto) 2.1 [place] # (Auto) 0.9 Eos # (Auto) 0.0 Baso # (Auto) 0.1 Abs Immat Gran (auto) 0.11 H Absolute Neuts (auto) 14.0 H Absolute Nucleated RBC 0.000 0.000 Nucleated RBC % (auto) 0.0 PT INR APTT Sodium Potassium Chloride Carbon Dioxide Anion Gap BUN Creatinine Estim Creat Clear Calc Estimated GFR Random Glucose Calcium Magnesium Total Bilirubin Direct Bilirubin AST ALT Alkaline Phosphatase Troponin I High Sens Total Protein Albumin Lipase Urine Color Urine Appearance Urine pH Ur Specific Opal Urine Protein Urine Glucose (UA) Urine Ketones Urine Blood Urine Nitrite Ur Leukocyte Esterase Urine RBC Urine WBC Ur Squamous Epith Cells Urine Bacteria Hyaline Casts Urine Opiates Screen Ur Buprenorphine Scrn Ur Oxycodone Screen Urine Methadone Screen Urine Fentanyl Screen Ur Barbiturates Screen Ur Phencyclidine Scrn Ur Amphetamines Screen U Benzodiazepines Scrn Urine Cocaine Screen U Marijuana (THC) Screen Ethyl Alcohol Blood Type Antibody Screen 12/24/23 12/25/23 12/26/23 18:25 06:54 06:25 WBC 12.4 H 13.5 H RBC 3.73 L 3.58 L Hgb 10.3 L 9.8 L Hct 31.4 L 29.6 L MCV 84.2 82.7 MCH 27.6 27.4 MCHC 32.8 33.1 RDW 15.7 15.0 Plt Count 215 216 MPV 10.8 9.7 Immature Gran % (Auto) Neut % (Auto) Lymph % (Auto) [place] % (Auto) Eos % (Auto) Baso % (Auto) Lymph # (Auto) [place] # (Auto) Eos # (Auto) Baso # (Auto) Abs Immat Gran (auto) Absolute Neuts (auto) Absolute Nucleated RBC 0.000 0.000 Nucleated RBC % (auto) 0.0 0.0 0.0 PT INR APTT Sodium 139 142 141 Potassium 3.5 3.7 3.4 Chloride 101 104 103 Carbon Dioxide 28 30 H 30 H Anion Gap 14 12 11 L BUN 19 H 12 8 L Creatinine 0.67 0.65 0.67 Estim Creat Clear Calc 121.8 125.6 121.8 Estimated GFR > 60 > 60 > 60 Random Glucose 121 H 101 98 Calcium 8.9 D 8.5 8.5 Magnesium Total Bilirubin 0.5 Direct Bilirubin AST 11 ALT 7 Alkaline Phosphatase 119 H Troponin I High Sens Total Protein 5.9 L Albumin 3.4 L Lipase Urine Color Urine Appearance Urine pH Ur Specific Opal Urine Protein Urine Glucose (UA) Urine Ketones Urine Blood Urine Nitrite Ur Leukocyte Esterase Urine RBC Urine WBC Ur Squamous Epith Cells Urine Bacteria Hyaline Casts Urine Opiates Screen Ur Buprenorphine Scrn Ur Oxycodone Screen Urine Methadone Screen Urine Fentanyl Screen Ur Barbiturates Screen Ur Phencyclidine Scrn Ur Amphetamines Screen U Benzodiazepines Scrn Urine Cocaine Screen U Marijuana (THC) Screen Ethyl Alcohol Blood Type Antibody Screen Imaging Radiology Impressions: ITS Impressions Femur X-Ray 12/24/23 12:42 IMPRESSION: Stable examination. Abdomen/Pelvis CT 12/24/23 15:19 IMPRESSION: No evidence of active GI bleeding. Wall thickening and edema of the distal thoracic esophagus and small amount of surrounding fluid. This is a new or increased finding from recent exam. Dilated fluid-filled stomach. Other stable findings from recent exam. Cervical Spine CT 12/24/23 15:19 IMPRESSION: Degenerative changes. No fracture or dislocation. Fleischner guidelines were followed. Head CT 12/24/23 15:19 IMPRESSION: No acute findings. No change from previous exams. Chest X-Ray 12/24/23 19:20 IMPRESSION: No active cardiopulmonary disease. Mental Status Exam Mental Status Exam Level of Consciousness: Awake, Appropriate and Alert Patient Behavior: Appropriate Mood Description: Appropriate and Anxious Affect Description: Anxious Medications Medications Current Medications Acamprosate (Acamprosate Calcium 333 Mg Tablet.Dr) 666 mg PO TID [facility] Last Admin: 12/26/23 09:03 Dose: 666 mg Acetaminophen (Acetaminophen 325 Mg Tablet) 650 mg PO Q6H PRN PRN Reason: Pain, Mild (Pain Scale 1-3) Last Admin: 12/26/23 09:02 Dose: 650 mg Benzonatate (Benzonatate 100 Mg Capsule) 100 mg PO TID PRN PRN Reason: Cough Docusate Sodium (Docusate Sodium 100 Mg Capsule) 100 mg PO DAILY PRN PRN Reason: Constipation Fluconazole (Fluconazole 100 Mg Tablet) 100 mg PO DAILY [facility] Last Admin: 12/26/23 09:02 Dose: 100 mg Folic Acid (Folic Acid 1 Mg Tablet) 1 mg PO DAILY [facility] Last Admin: 12/26/23 09:02 Dose: 1 mg Hydromorphone HCl (Hydromorphone Hcl 0.5 Mg/0.5 Ml Syringe) 0.5 mg IVPUSH Q4H PRN; Protocol PRN Reason: Pain, Severe (Pain Scale 7-10) Last Admin: 12/26/23 06:49 Dose: 0.5 mg Hydroxyzine HCl (Hydroxyzine Hcl 25 Mg Tablet) 25 mg PO TID [facility] Last Admin: 12/26/23 09:03 Dose: 25 mg Lactated Ringer's (Lr) 1,000 mls @ 100 mls/hr IVCONT .Q10H [facility] Last Admin: 12/26/23 01:38 Dose: 100 mls/hr Lidocaine (Lidocaine 4 % Patch Adh..Patch) 1 patch TRANSDERMA DAILY [facility]; Protocol Last Admin: 12/26/23 09:01 Dose: 1 patch Melatonin (Melatonin 3 Mg Tablet) 6 mg PO BEDTIME PRN PRN Reason: Insomnia Melatonin (Melatonin 3 Mg Tablet) 6 mg PO BEDTIME [facility] Last Admin: 12/25/23 21:06 Dose: 6 mg Methadone HCl (Methadone Hcl 20 Mg/2 Ml Oral.Conc) 30 mg PO DAILY [facility] Ondansetron HCl (Ondansetron Hcl 4 Mg/2 Ml Vial) 4 mg IVPUSH Q8H PRN PRN Reason: Nausea and Vomiting Last Admin: 12/26/23 06:50 Dose: 4 mg Pantoprazole Sodium (Pantoprazole Sodium 40 Mg/10 Ml Vial) 40 mg IVPUSH BID@0630,1630 [facility] Last Admin: 12/26/23 06:49 Dose: 40 mg Pyridoxine HCl (Pyridoxine Hcl (Vitamin B6) 50 Mg Tablet) 50 mg PO DAILY [facility] Last Admin: 12/26/23 09:02 Dose: 50 mg Sertraline HCl (Sertraline Hcl 50 Mg Tablet) 50 mg PO DAILY [facility] Last Admin: 12/26/23 09:03 Dose: 50 mg Sodium Chloride (0.9 % Sodium Chloride Flush 3 Ml Syringe) 3 ml IVFLUSH QSHIFT [facility] Last Admin: 12/26/23 09:03 Dose: 3 ml Thiamine HCl (Thiamine Hcl 100 Mg Tablet) 100 mg PO DAILY [facility] Last Admin: 12/26/23 09:02 Dose: 100 mg Allergies Allergies Allergy/AdvReac Type Severity Reaction Status Date / Time bee pollen [BEE STINGS] Allergy Severe SWELLING Verified 12/24/23 10:51 Assessment & Plan Assessment & Plan (1) Alcohol use disorder, severe, dependence: Status: Acute Code(s): F10.20 - Alcohol dependence, uncomplicated Assessment and Plan: * will discuss further in AM as patient was feeling unwell due to opiate withdrawal (2) Opioid use disorder, severe, dependence: Status: Acute Code(s): F11.20 - Opioid dependence, uncomplicated Assessment and Plan: * methadone 30mg daily * will follow up in AM Total time managing care of this patient today _25___ minutes. PMFSH Past Medical History Medical History Substance abuse EtOH dependence Hypertension Family History Family History Father Stomach cancer Surgical History Surgical History Hx of endoscopy History of total right hip replacement Social History Social History Household Members: None Housing: Homeless Do you presently have visiting nurse or other home services: No Alcohol intake: current Alcohol intake frequency: 3 or more drinks per day Alcohol type: beer and hard liquor Comment: 1:1 Patient Tobacco Use Status: Current someday Tobacco user Tobacco use type: Cigarette Cigarettes Per Day: 5 Years Smoked: 20 Smoked in Last 30 Days: No e-Cigarette/Vaping Use: Never Used Second Hand Smoke Exposure: Yes Use of substances other than those prescribed or required for medical reasons: No Substance Use Type: Heroin Substance Use Frequency: Chronic Longstanding Last Used Substance: Hours (ago) Currently Displaying Signs/Symptoms of Drug Intoxication Withdrawal: No Any prior treatment program specific to substance use: Yes Advance Directives: No Advance Directives Information Provided: No Do you have a plan to hurt others: No Plan Nutrition Risks: No Nutritional Risk service: No Current occupational status: unemployed Sexual orientation: Straight/Heterosexual
--- NOTE | 2023-12-26 10:44 | HE.PHANOTE ---
RE METHADONE LAST DOSE 27 MG GIVEN AT [facility] 12/16/23
[2023-12-26] MEDS: methADONE HCl 20 MG/2 ML ORAL.CONC 30 MG PO (10:46)
[2023-12-26] MEDS: cloNIDine HCL 0.1 MG TABLET PO (12:30)
--- NOTE | 2023-12-26 13:57 | P.PNIM_ITS ---
Subjective Subjective Date of Service: 12/26/23 Interval History: alcohol use ,possible esophagitis Review of Systems po intake is very low no nausea or vomiting has abd soarness no fever or chills Physical Exam 2 Vital Signs: Vital Signs: Last Vital Signs Temp 98.0 F 12/26/23 11:30 Pulse 60 12/26/23 11:30 Resp 17 12/26/23 11:30 BP 168/82 H 12/26/23 11:30 Pulse Ox 95 12/26/23 11:16 O2 Del Method Room Air 12/26/23 11:30 BMI result Body Mass Index 22.3 Appearance: Alert.? Oriented X3.? cvs: rrr, [id number] , no murmur res: clear to auscultation ,no rhonchii or wheezing abd: no rebound or guarding ,has epigastric soarness , bs present. ext pulses present , no cyanosis. Mild left thigh tenderness. No loss of ROM of leg noted. neuro: axo3 , nonfocal. Objective Data Active Medications Acamprosate (Acamprosate Calcium 333 Mg Tablet.) 666 mg PO TID [facility] Last Admin: 12/26/23 09:03 Dose: 666 mg Documented By: ERICA Acetaminophen (Acetaminophen 325 Mg Tablet) 650 mg PO Q6H PRN PRN Reason: Pain, Mild (Pain Scale 1-3) Last Admin: 12/26/23 09:02 Dose: 650 mg Documented By: ERICA Benzonatate (Benzonatate 100 Mg Capsule) 100 mg PO TID PRN PRN Reason: Cough Clonidine HCl (Clonidine Hcl 0.1 Mg Tablet) 0.1 mg PO BID [facility]; Protocol Last Admin: 12/26/23 12:30 Dose: 0.1 mg Documented By: ERICA Docusate Sodium (Docusate Sodium 100 Mg Capsule) 100 mg PO DAILY PRN PRN Reason: Constipation Fluconazole (Fluconazole 100 Mg Tablet) 100 mg PO DAILY [facility] Last Admin: 12/26/23 09:02 Dose: 100 mg Documented By: ERICA Folic Acid (Folic Acid 1 Mg Tablet) 1 mg PO DAILY [facility] Last Admin: 12/26/23 09:02 Dose: 1 mg Documented By: ERICA Hydromorphone HCl (Hydromorphone Hcl 0.5 Mg/0.5 Ml Syringe) 0.5 mg IVPUSH Q4H PRN; Protocol PRN Reason: Pain, Severe (Pain Scale 7-10) Last Admin: 12/26/23 10:45 Dose: 0.5 mg Documented By: ERICA Hydroxyzine HCl (Hydroxyzine Hcl 25 Mg Tablet) 25 mg PO TID [facility] Last Admin: 12/26/23 09:03 Dose: 25 mg Documented By: ERICA Lactated Ringer's (Lr) 1,000 mls @ 100 mls/hr IVCONT .Q10H [facility] Last Admin: 12/26/23 11:32 Dose: 100 mls/hr Documented By: ERICA Lidocaine (Lidocaine 4 % Patch Adh..Patch) 1 patch TRANSDERMA DAILY [facility]; Protocol Last Admin: 12/26/23 09:01 Dose: 1 patch Documented By: ERICA Melatonin (Melatonin 3 Mg Tablet) 6 mg PO BEDTIME PRN PRN Reason: Insomnia Melatonin (Melatonin 3 Mg Tablet) 6 mg PO BEDTIME [facility] Last Admin: 12/25/23 21:06 Dose: 6 mg Documented By: EVELIO Methadone HCl (Methadone Hcl 20 Mg/2 Ml Oral.Conc) 30 mg PO DAILY [facility] Last Admin: 12/26/23 10:46 Dose: 30 mg Documented By: ERICA Ondansetron HCl (Ondansetron Hcl 4 Mg/2 Ml Vial) 4 mg IVPUSH Q8H PRN PRN Reason: Nausea and Vomiting Last Admin: 12/26/23 06:50 Dose: 4 mg Documented By: EVELIO Pantoprazole Sodium (Pantoprazole Sodium 40 Mg/10 Ml Vial) 40 mg IVPUSH BID@0630,1630 [facility] Last Admin: 12/26/23 06:49 Dose: 40 mg Documented By: EVELIO Pyridoxine HCl (Pyridoxine Hcl (Vitamin B6) 50 Mg Tablet) 50 mg PO DAILY [facility] Last Admin: 12/26/23 09:02 Dose: 50 mg Documented By: ERICA Sertraline HCl (Sertraline Hcl 50 Mg Tablet) 50 mg PO DAILY [facility] Last Admin: 12/26/23 09:03 Dose: 50 mg Documented By: ERICA Sodium Chloride (0.9 % Sodium Chloride Flush 3 Ml Syringe) 3 ml IVFLUSH QSHIFT [facility] Last Admin: 12/26/23 09:03 Dose: 3 ml Documented By: ERICA Thiamine HCl (Thiamine Hcl 100 Mg Tablet) 100 mg PO DAILY [facility] Last Admin: 12/26/23 09:02 Dose: 100 mg Documented By: ERICA Labs 12/26/23 06:25 12/26/23 06:25 Labs: Laboratory Results - last 24 hr 12/26/23 06:25 MCV 82.7 MCH 27.4 MCHC 33.1 RDW 15.0 Plt Count 216 MPV 9.7 Absolute Nucleated RBC 0.000 Nucleated RBC % (auto) 0.0 Anion Gap 11 L Estim Creat Clear Calc 121.8 Estimated GFR > 60 Random Glucose 98 Calcium 8.5 Assessment and Plan (1) Hematemesis: Status: Acute (2) Esophagitis: Status: Acute Plan 58-year-old male with a PMH significant for alcohol use disorder with history of withdrawal,?HTN, hx of PE on Eliquis, and opiate use disorder on methadone who presents to the ED with?abdominal and left leg pain. Pt will be admitted to the hospital for treatment and further evaluation of upper GI bleed in the setting of alcoholic use disorder. Upper GI bleed In the setting of alcohol use disorder Pt with epigastric pain and coffee-ground emesis x2 while in the ED Concerning for alcoholic gastritis h/h stable s/p egd-esophageal ulcer, gastritis Plan: not eating much yet-hesitate due to soarness Continue PPI, monitor CBC, fluconazole, repeat EGD/colonoscopy in 3-4 months PCT brushings/biopsy were sent and pending Alcohol use disorder Drinking up to 1L vodka daily Currently not in acute withdrawal Monitor on CIWa Continue thiamine, folic acid, multivitamin, Protonix,Addiction medicine consult Monitor on telemetry Left femur fracture Pt should be non-weightbearing ed d/w ortho-Has been non-compliant, walking at home with multiple falls ortho rec:pwb w walker,no abduction ,follow outpatient Pt eval. Leukocytosis: Likely reactive Trending down Asymptomatic UA, CXR-negative Hx of PE Hold Eliquis due to UGIB, GI recommended to hold anticoagulation for 5 days. Opioid use disorder Continue methadone once dose verified HTn Continue lisinopril Full Code DVT Prophylaxis: Pneumatic boots due to upper GI bleed Ongoing hospitalization of for treatment of?upper GI bleed in setting of alcohol use disorder,, possible candidal esophagitis, esophageal ulcer: Need IV ppi, fluconazole ,close monitoring of H&H, electrolytes,unable to take po yet and GI follow-up,Pt eval due to recent fracture as well as pain control currently on iv dilaudid.. Quality Stroke Does the patient have a stroke diagnosis?: No VTE Prior VTE?: No VTE Risk Level:: Medical - moderate - high VTE Device Contraindication: N/A - Device Ordered VTE Drug Contraindication: Treatment Not Indicated
[2023-12-26] MEDS: Melatonin 3 MG TABLET 6 MG PO (20:40)
[2023-12-26] MEDS: PHENobarbitaL sodium 130 MG/ML VIAL IM (23:59)
[2023-12-27] VITALS (8 sets, daily range): BP systolic 122–170; BP diastolic 70–89; PULSE 45–57; RESP 15–20; TEMP 36.3–37.4; O2SAT 92–97
--- NOTE | 2023-12-27 | ECG_ITS ---
Test Reason : bradycardia Blood Pressure : / mmHG Vent. Rate : 050 BPM Atrial Rate : 050 BPM P-R Int : 128 ms QRS Dur : 094 ms QT Int : 504 ms P-R-T Axes : 048 017 030 degrees QTc Int : 459 ms Sinus bradycardia Otherwise normal ECG When compared with ECG of 24-DEC-2023 12:13, Vent. rate has decreased BY 48 BPM Nonspecific T wave abnormality has replaced inverted T waves in Inferior leads Referred By: Adriel Rocha Electronically Signed By:ALFREDO LARSON MD
[2023-12-27] MEDS: HYDROmorphone HCl 0.5 MG/0.5 ML SYRINGE IVPUSH ×2 (03:04→08:00)
[2023-12-27] MEDS: Pantoprazole Sodium 40 MG/10 ML VIAL IVPUSH ×2 (06:08→16:53)
[2023-12-27 06:26] LABS: Hematocrit 28.1 % (42.0-52.0); Hemoglobin 9.3 g/dl (14.0-18.0); Mean Corpuscular HGB Conc 33.1 g/dl (31.0-36.0); Mean Corpuscular Hemoglobin 27.5 pg (27.0-33.0); Mean Corpuscular Volume 83.1 fL (80.0-98.0); Mean Platelet Volume 10.1 fL (9.4-12.4); Platelet Count 193 X10*3/uL (160-400); Red Blood Count 3.38 X10*6/uL (4.60-5.80); Red Cell Distribution Width 14.8 % (11.0-16.0); White Blood Count 6.6 X10*3/uL (4.8-10.8)
[2023-12-27] MEDS: 0.9 % Sodium Chloride Flush 3 ML SYRINGE IVFLUSH ×2 (07:47→15:15)
[2023-12-27] MEDS: ondansetron HCL 4 MG/2 ML VIAL IVPUSH (08:00)
[2023-12-27] MEDS: hydrOXYzine HCL 25 MG TABLET PO ×3 (08:23→20:22)
[2023-12-27] MEDS: Acamprosate Calcium 333 MG TABLET.DR 666 MG PO ×3 (08:23→20:22)
[2023-12-27] MEDS: Pyridoxine HCl (Vitamin B6) 50 MG TABLET PO (08:24)
[2023-12-27] MEDS: Folic Acid 1 MG TABLET PO (08:24)
[2023-12-27] MEDS: methADONE HCl 20 MG/2 ML ORAL.CONC 30 MG PO (08:24)
[2023-12-27] MEDS: Thiamine HCL 100 MG TABLET PO (08:24)
[2023-12-27] MEDS: Fluconazole 100 MG TABLET PO (08:24)
[2023-12-27] MEDS: Sertraline HCL 50 MG TABLET PO (08:24)
--- NOTE | 2023-12-27 08:43 | HO.POSTANES ---
Post Anesthesia Evaluation Post Anesthesia Evaluation Date of Service: 12/27/23 Vital Signs: Vital Signs Temp Pulse Resp BP Pulse Ox O2 Del Method 12/27/23 07:56 96 Room Air 12/27/23 07:35 98.8 F 55 20 158/72 H 96 Room Air 12/27/23 04:00 99.4 F 47 L 20 167/79 H 97 Room Air 12/27/23 00:00 98.4 F 47 L 15 167/77 H 97 Room Air 12/26/23 23:52 98.4 F 47 L 14 167/77 H 97 Room Air Anesthesia: TIVA Mental Status: Awake Pain Control: Satisfactory Nausea/Vomiting: None Hydration: Adequate Anesthesia-Related Issues: No Anes. Related Issues
[2023-12-27 10:14] LABS: Thyroid Stimulating Hormone 0.02 uIU/mL (0.32-4.0)
--- NOTE | 2023-12-27 11:52 | HO.ADDICTPRO ---
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 Review of Systems Acute medical concerns: Yes Review of Systems Constitutional: Reports as per HPI Mental Status Exam Mental Status Exam Patient Appearance: Appropriate Level of Consciousness: Awake, Appropriate and Alert Patient Behavior: Appropriate and Cooperative Mood Description: Calm Affect Description: Calm Diagnostics Vital Signs (24Hr): Vital Signs - 24 hr 12/26/23 14:11 12/26/23 15:10 12/26/23 20:00 Temperature 97.5 F 98.2 F 98.7 F Pulse Rate 55 55 56 Respiratory Rate 17 16 18 Blood Pressure 107/56 L 102/60 144/66 H Pulse Oximetry 97 95 95 Oxygen Delivery Method Room Air Room Air Room Air 12/26/23 23:52 12/27/23 00:00 12/27/23 04:00 Temperature 98.4 F 98.4 F 99.4 F Pulse Rate 47 L 47 L 47 L Respiratory Rate 14 15 20 Blood Pressure 167/77 H 167/77 H 167/79 H Pulse Oximetry 97 97 97 Oxygen Delivery Method Room Air Room Air Room Air 12/27/23 07:35 12/27/23 07:56 12/27/23 11:37 Temperature 98.8 F 98.6 F Pulse Rate 55 45 L Respiratory Rate 20 20 Blood Pressure 158/72 H 137/74 Pulse Oximetry 96 96 97 Oxygen Delivery Method Room Air Room Air Room Air BMI result Body Mass Index 22.3 Labs 12/27/23 05:56 12/26/23 06:25 Labs: Laboratory Results - last 48 hr 12/26/23 12/27/23 06:25 05:56 WBC 13.5 H 6.6 RBC 3.58 L 3.38 L Hgb 9.8 L 9.3 L Hct 29.6 L 28.1 L MCV 82.7 83.1 MCH 27.4 27.5 MCHC 33.1 33.1 RDW 15.0 14.8 Plt Count 216 193 MPV 9.7 10.1 Absolute Nucleated RBC 0.000 0.000 Nucleated RBC % (auto) 0.0 0.0 Sodium 141 Potassium 3.4 Chloride 103 Carbon Dioxide 30 H Anion Gap 11 L BUN 8 L Creatinine 0.67 Estim Creat Clear Calc 121.8 Estimated GFR > 60 Random Glucose 98 Calcium 8.5 TSH 0.02 L Imaging Radiology Impressions: ITS Impressions Femur X-Ray 12/24/23 12:42 IMPRESSION: Stable examination. Abdomen/Pelvis CT 12/24/23 15:19 IMPRESSION: No evidence of active GI bleeding. Wall thickening and edema of the distal thoracic esophagus and small amount of surrounding fluid. This is a new or increased finding from recent exam. Dilated fluid-filled stomach. Other stable findings from recent exam. Cervical Spine CT 12/24/23 15:19 IMPRESSION: Degenerative changes. No fracture or dislocation. Fleischner guidelines were followed. Head CT 12/24/23 15:19 IMPRESSION: No acute findings. No change from previous exams. Chest X-Ray 12/24/23 19:20 IMPRESSION: No active cardiopulmonary disease. Medications Medications Current Medications Acamprosate (Acamprosate Calcium 333 Mg Tablet.) 666 mg PO TID [facility] Last Admin: 12/27/23 08:23 Dose: 666 mg Acetaminophen (Acetaminophen 325 Mg Tablet) 650 mg PO Q6H PRN PRN Reason: Pain, Mild (Pain Scale 1-3) Last Admin: 12/26/23 15:43 Dose: 650 mg Benzonatate (Benzonatate 100 Mg Capsule) 100 mg PO TID PRN PRN Reason: Cough Docusate Sodium (Docusate Sodium 100 Mg Capsule) 100 mg PO DAILY PRN PRN Reason: Constipation Fluconazole (Fluconazole 100 Mg Tablet) 100 mg PO DAILY [facility] Last Admin: 12/27/23 08:24 Dose: 100 mg Folic Acid (Folic Acid 1 Mg Tablet) 1 mg PO DAILY [facility] Last Admin: 12/27/23 08:24 Dose: 1 mg Hydromorphone HCl (Hydromorphone Hcl 0.5 Mg/0.5 Ml Syringe) 0.5 mg IVPUSH BID PRN; Protocol PRN Reason: Pain, Severe (Pain Scale 7-10) Hydroxyzine HCl (Hydroxyzine Hcl 25 Mg Tablet) 25 mg PO TID [facility] Last Admin: 12/27/23 08:23 Dose: 25 mg Lidocaine (Lidocaine 4 % Patch Adh..Patch) 1 patch TRANSDERMA DAILY [facility]; Protocol Last Admin: 12/27/23 08:24 Dose: Not Given Melatonin (Melatonin 3 Mg Tablet) 6 mg PO BEDTIME PRN PRN Reason: Insomnia Melatonin (Melatonin 3 Mg Tablet) 6 mg PO BEDTIME [facility] Last Admin: 12/26/23 20:40 Dose: 6 mg Methadone HCl (Methadone Hcl 20 Mg/2 Ml Oral.Conc) 30 mg PO DAILY [facility] Last Admin: 12/27/23 08:24 Dose: 30 mg Ondansetron HCl (Ondansetron Hcl 4 Mg/2 Ml Vial) 4 mg IVPUSH Q8H PRN PRN Reason: Nausea and Vomiting Last Admin: 12/27/23 08:00 Dose: 4 mg Pantoprazole Sodium (Pantoprazole Sodium 40 Mg/10 Ml Vial) 40 mg IVPUSH BID@0630,1630 [facility] Last Admin: 12/27/23 06:08 Dose: 40 mg Pharmacy Consult (Consult Rx Etoh Phenob Po Only) 1 each MISCELLANE ONCE PRN; Protocol PRN Reason: Consult order Pyridoxine HCl (Pyridoxine Hcl (Vitamin B6) 50 Mg Tablet) 50 mg PO DAILY [facility] Last Admin: 12/27/23 08:24 Dose: 50 mg Sertraline HCl (Sertraline Hcl 50 Mg Tablet) 50 mg PO DAILY [facility] Last Admin: 12/27/23 08:24 Dose: 50 mg Sodium Chloride (0.9 % Sodium Chloride Flush 3 Ml Syringe) 3 ml IVFLUSH QSHIFT [facility] Last Admin: 12/27/23 07:47 Dose: 3 ml Thiamine HCl (Thiamine Hcl 100 Mg Tablet) 100 mg PO DAILY [facility] Last Admin: 12/27/23 08:24 Dose: 100 mg Allergies Allergies Allergy/AdvReac Type Severity Reaction Status Date / Time bee pollen [BEE STINGS] Allergy Severe SWELLING Verified 12/24/23 10:51 Assessment & Plan Assessment & Plan (1) Opioid use disorder, severe, dependence: Status: Acute Code(s): F11.20 - Opioid dependence, uncomplicated Assessment and Plan: continue methadone at 30mg daily (patient requesting not to increase dose any further) (2) Alcohol use disorder, severe, dependence: Status: Acute Code(s): F10.20 - Alcohol dependence, uncomplicated Assessment and Plan: application development specialist to follow up and discuss AUD recovery supports Total time managing care of this patient today _25___ minutes.
--- NOTE | 2023-12-27 14:48 | MHC.CM.PN ---
EMR reviewed and per MD rounds pt is not medically cleared for discharge due to ongoing management of UGIB, pt still with poor PO intake.
--- NOTE | 2023-12-27 15:59 | P.PNIM_ITS ---
Subjective Subjective Date of Service: 12/27/23 Interval History: alcohol use ,possible esophagitis Review of Systems po intake is very low , ciwa was high lst night -given im pheno has bradycardia-denies any chest pain or sob , dizziness . Physical Exam 2 Vital Signs: Vital Signs: Last Vital Signs Temp 97.3 F 12/27/23 15:54 Pulse 57 12/27/23 15:54 Resp 16 12/27/23 15:54 BP 170/89 H 12/27/23 15:54 Pulse Ox 97 12/27/23 15:54 O2 Del Method Room Air 12/27/23 15:54 BMI result Body Mass Index 22.3 Appearance: Alert.? Oriented X3.? cvs: rrr, [id number] , no murmur res: clear to auscultation ,no rhonchii or wheezing abd: no rebound or guarding ,has epigastric soarness , bs present. ext pulses present , no cyanosis. Mild left thigh tenderness. No loss of ROM of leg noted. neuro: axo3 , nonfocal. Objective Data Active Medications Acamprosate (Acamprosate Calcium 333 Mg Tablet.) 666 mg PO TID [facility] Last Admin: 12/27/23 14:30 Dose: 666 mg Documented By: DAIN Acetaminophen (Acetaminophen 325 Mg Tablet) 650 mg PO Q6H PRN PRN Reason: Pain, Mild (Pain Scale 1-3) Last Admin: 12/26/23 15:43 Dose: 650 mg Documented By: TOMASISujata Benzonatate (Benzonatate 100 Mg Capsule) 100 mg PO TID PRN PRN Reason: Cough Docusate Sodium (Docusate Sodium 100 Mg Capsule) 100 mg PO DAILY PRN PRN Reason: Constipation Fluconazole (Fluconazole 100 Mg Tablet) 100 mg PO DAILY [facility] Last Admin: 12/27/23 08:24 Dose: 100 mg Documented By: DAIN Folic Acid (Folic Acid 1 Mg Tablet) 1 mg PO DAILY [facility] Last Admin: 12/27/23 08:24 Dose: 1 mg Documented By: DAIN Hydromorphone HCl (Hydromorphone Hcl 0.5 Mg/0.5 Ml Syringe) 0.5 mg IVPUSH BID PRN; Protocol PRN Reason: Pain, Severe (Pain Scale 7-10) Hydroxyzine HCl (Hydroxyzine Hcl 25 Mg Tablet) 25 mg PO TID [facility] Last Admin: 12/27/23 14:30 Dose: 25 mg Documented By: DAIN Lidocaine (Lidocaine 4 % Patch Adh..Patch) 1 patch TRANSDERMA DAILY [facility]; Protocol Last Admin: 12/27/23 08:24 Dose: Not Given Documented By: DAIN Non-Admin Reason: Patient Refused Melatonin (Melatonin 3 Mg Tablet) 6 mg PO BEDTIME PRN PRN Reason: Insomnia Melatonin (Melatonin 3 Mg Tablet) 6 mg PO BEDTIME [facility] Last Admin: 12/26/23 20:40 Dose: 6 mg Documented By: ZAKI Methadone HCl (Methadone Hcl 20 Mg/2 Ml Oral.Conc) 30 mg PO DAILY [facility] Last Admin: 12/27/23 08:24 Dose: 30 mg Documented By: DAIN Ondansetron HCl (Ondansetron Hcl 4 Mg/2 Ml Vial) 4 mg IVPUSH Q8H PRN PRN Reason: Nausea and Vomiting Last Admin: 12/27/23 08:00 Dose: 4 mg Documented By: DAIN Pantoprazole Sodium (Pantoprazole Sodium 40 Mg/10 Ml Vial) 40 mg IVPUSH BID@0630,1630 [facility] Last Admin: 12/27/23 06:08 Dose: 40 mg Documented By: ZAKI Pharmacy Consult (Consult Rx Etoh Phenob Po Only) 1 each MISCELLANE ONCE PRN; Protocol PRN Reason: Consult order Phenobarbital (Phenobarbital 15 Mg Tablet) 45 mg PO BID [facility]; Protocol Stop: 12/29/23 21:01 Phenobarbital (Phenobarbital 30 Mg Tablet) 30 mg PO BID [facility]; Protocol Stop: 12/31/23 21:01 Phenobarbital (Phenobarbital 30 Mg Tablet) 30 mg PO DAILY [facility]; Protocol Stop: 01/02/24 09:01 Phenobarbital 100 mg/ (Phenobarbital 30 mg) 130 mg PO Q3H [facility]; Protocol Stop: 12/27/23 20:31 Pyridoxine HCl (Pyridoxine Hcl (Vitamin B6) 50 Mg Tablet) 50 mg PO DAILY [facility] Last Admin: 12/27/23 08:24 Dose: 50 mg Documented By: DAIN Sertraline HCl (Sertraline Hcl 50 Mg Tablet) 50 mg PO DAILY [facility] Last Admin: 12/27/23 08:24 Dose: 50 mg Documented By: DAIN Sodium Chloride (0.9 % Sodium Chloride Flush 3 Ml Syringe) 3 ml IVFLUSH QSHIFT [facility] Last Admin: 12/27/23 15:15 Dose: 3 ml Documented By: DAIN Thiamine HCl (Thiamine Hcl 100 Mg Tablet) 100 mg PO DAILY [facility] Last Admin: 12/27/23 08:24 Dose: 100 mg Documented By: DAIN Labs 12/27/23 05:56 12/26/23 06:25 Labs: Laboratory Results - last 24 hr 12/27/23 05:56 MCV 83.1 MCH 27.5 MCHC 33.1 RDW 14.8 Plt Count 193 MPV 10.1 Absolute Nucleated RBC 0.000 Nucleated RBC % (auto) 0.0 TSH 0.02 L Microbiology Microbiology Results: Microbiology 12/25/23 10:07 Fungal Identification - Preliminary Brushing - [place] Esophagus No growth to date. Assessment and Plan (1) Esophagitis: Status: Acute (2) Alcohol withdrawal: Status: Acute Plan 58-year-old male with a PMH significant for alcohol use disorder with history of withdrawal,?HTN, hx of PE on Eliquis, and opiate use disorder on methadone who presents to the ED with?abdominal and left leg pain. Pt will be admitted to the hospital for treatment and further evaluation of upper GI bleed in the setting of alcoholic use disorder. Alcochol withdrawals ciwa started on phenobarbital bradycardia : ? related to clonidine /dilaudid tsh levels ekg -sinus hr @50 moniter on tele Upper GI bleed In the setting of alcohol use disorder Pt with epigastric pain and coffee-ground emesis x2 while in the ED Concerning for alcoholic gastritis h/h stable s/p egd-esophageal ulcer, gastritis Plan: Encouraged for p.o. intake Continue PPI, monitor CBC, fluconazole (Started 12/24), repeat EGD/colonoscopy in 3-4 months PCT brushings/biopsy were sent and pending please see Gi note for more detail. Alcohol use disorder Drinking up to 1L vodka daily Currently not in acute withdrawal Monitor on CIWa Continue thiamine, folic acid, multivitamin, Protonix,Addiction medicine consult Monitor on telemetry Left femur fracture Pt should be non-weightbearing ed d/w ortho-Has been non-compliant, walking at home with multiple falls ortho rec:pwb w walker,no abduction ,follow outpatient Pt eval. Leukocytosis: Likely reactive Trending down Asymptomatic UA, CXR-negative Hx of PE Hold Eliquis due to UGIB, GI recommended to hold anticoagulation for 5 days. Opioid use disorder Continue methadone once dose verified HTn Continue lisinopril Full Code DVT Prophylaxis: Pneumatic boots due to upper GI bleed Ongoing hospitalization of for treatment of?upper GI bleed in setting of alcohol use disorder,, possible candidal esophagitis, esophageal ulcer: Need IV ppi, fluconazole ,close monitoring of H&H, electrolytes,alcohol withdrawal -need phenobarbital,ciwa monitering Quality Stroke Does the patient have a stroke diagnosis?: No VTE Prior VTE?: No VTE Risk Level:: Medical - moderate - high VTE Device Contraindication: N/A - Device Ordered VTE Drug Contraindication: Treatment Not Indicated
--- NOTE | 2023-12-27 18:55 | PC.NURSE ---
Report received. Care assumed. Pt in bed with eyes closed.
[2023-12-28 03:45] VITALS: BP 131/75; PULSE 51; RESP 18; TEMP 36.8; O2SAT 97
[2023-12-28] MEDS: Pantoprazole Sodium 40 MG/10 ML VIAL IVPUSH (05:40)
[2023-12-28 07:30] VITALS: BP 125/66; PULSE 56; RESP 20; TEMP 36.8; O2SAT 96
[2023-12-28] MEDS: 0.9 % Sodium Chloride Flush 3 ML SYRINGE IVFLUSH ×2 (08:17→15:40)
[2023-12-28] MEDS: hydrOXYzine HCL 25 MG TABLET PO ×3 (08:17→20:19)
[2023-12-28] MEDS: Acamprosate Calcium 333 MG TABLET.DR 666 MG PO ×3 (08:17→20:19)
[2023-12-28] MEDS: Folic Acid 1 MG TABLET PO (08:17)
[2023-12-28] MEDS: Pyridoxine HCl (Vitamin B6) 50 MG TABLET PO (08:17)
[2023-12-28] MEDS: Lidocaine 4 % Patch ADH..PATCH 1 PATCH TRANSDERMA (08:17)
[2023-12-28] MEDS: Sertraline HCL 50 MG TABLET PO (08:18)
[2023-12-28] MEDS: Fluconazole 100 MG TABLET PO (08:18)
[2023-12-28] MEDS: Thiamine HCL 100 MG TABLET PO (08:18)
[2023-12-28] MEDS: methADONE HCl 20 MG/2 ML ORAL.CONC 30 MG PO (08:18)
[2023-12-28] MEDS: PHENobarbitaL 15 MG TABLET 45 MG PO ×2 (08:18→20:19)
[2023-12-28 11:20] VITALS: BP 102/59; PULSE 57; RESP 20; TEMP 36.2; O2SAT 98
--- NOTE | 2023-12-28 13:49 | MHC.RECOVRN ---
Met with pt to follow up and provide support. Pt sitting in bed, awake, alert, easily engages in conversation, appears comfortable. Pt reports prior to admission alcohol use x 5 days, prior to that last drink was 4 months ago. Pt reports upon dc he will continue with methadone at [facility]. Reports feeling comfortable with 30 mg daily. Pt reports he has supports in place including being active with AA and having many friends and family. Pt states surrounding myself with sober people has always been the biggest thing. Pt reports he has [employer] work planned this summer which will also keep him busy. Pt denies questions or concerns for t/w. Discussed with Misty Rojas APRN.
[2023-12-28] MEDS: Docusate Sodium 100 MG CAPSULE PO (14:10)
--- NOTE | 2023-12-28 15:01 | HO.PM.IMPN ---
Subjective Subjective Date of Service: 12/28/23 Interval History: Complaining of epigastric burning on and off requesting for regular diet on clear liquid diet for last 2 days, denies sore throat, complaining of left hip pain, no other acute events overnight denies headache lightheadedness dizziness, no tremors. Review of Systems All other system reviewed and negative Physical Exam Vital Signs: Vital Signs: Last Vital Signs Temp 97.2 F 12/28/23 11:20 Pulse 57 12/28/23 11:20 Resp 20 12/28/23 11:20 BP 102/59 L 12/28/23 11:20 Pulse Ox 98 12/28/23 11:20 O2 Del Method Room Air 12/28/23 11:20 BMI result Body Mass Index 22.3 Const: Other: General awake alert x3 ,no acute distress. Neck supple no JVD. CVS regular rate rhythm, Respiratory lungs clear to auscultation, no respiratory distress, no wheeze, no rhonchi. Gastrointestinal abdomen soft, non tender, bowel sounds audible, no guarding , no rigidity. Extremities no edema. Neuro non focal , speech clear, no shakiness or tremors. Skin no rash Psych appropriate affect Objective Data Active Medications Acamprosate (Acamprosate Calcium 333 Mg Tablet.) 666 mg PO TID [facility] Last Admin: 12/28/23 14:11 Dose: 666 mg Documented By: ERICA Acetaminophen (Acetaminophen 325 Mg Tablet) 650 mg PO Q6H PRN PRN Reason: Pain, Mild (Pain Scale 1-3) Last Admin: 12/26/23 15:43 Dose: 650 mg Documented By: ERICA Benzonatate (Benzonatate 100 Mg Capsule) 100 mg PO TID PRN PRN Reason: Cough Docusate Sodium (Docusate Sodium 100 Mg Capsule) 100 mg PO DAILY PRN PRN Reason: Constipation Last Admin: 12/28/23 14:10 Dose: 100 mg Documented By: ERICA Fluconazole (Fluconazole 100 Mg Tablet) 100 mg PO DAILY [facility] Last Admin: 12/28/23 08:18 Dose: 100 mg Documented By: ERICA Folic Acid (Folic Acid 1 Mg Tablet) 1 mg PO DAILY [facility] Last Admin: 12/28/23 08:17 Dose: 1 mg Documented By: ERICA Hydromorphone HCl (Hydromorphone Hcl 0.5 Mg/0.5 Ml Syringe) 0.5 mg IVPUSH BID PRN; Protocol PRN Reason: Pain, Severe (Pain Scale 7-10) Hydroxyzine HCl (Hydroxyzine Hcl 25 Mg Tablet) 25 mg PO TID [facility] Last Admin: 12/28/23 14:10 Dose: 25 mg Documented By: ERICA Lidocaine (Lidocaine 4 % Patch Adh..Patch) 1 patch TRANSDERMA DAILY [facility]; Protocol Last Admin: 12/28/23 08:17 Dose: 1 patch Documented By: ERICA Melatonin (Melatonin 3 Mg Tablet) 6 mg PO BEDTIME PRN PRN Reason: Insomnia Melatonin (Melatonin 3 Mg Tablet) 6 mg PO BEDTIME [facility] Last Admin: 12/27/23 20:25 Dose: Not Given Documented By: BERNIE Non-Admin Reason: Patient Refused Methadone HCl (Methadone Hcl 20 Mg/2 Ml Oral.Conc) 30 mg PO DAILY [facility] Last Admin: 12/28/23 08:18 Dose: 30 mg Documented By: ERICA Ondansetron HCl (Ondansetron Hcl 4 Mg/2 Ml Vial) 4 mg IVPUSH Q8H PRN PRN Reason: Nausea and Vomiting Last Admin: 12/27/23 08:00 Dose: 4 mg Documented By: DAIN Pantoprazole Sodium (Pantoprazole Sodium 40 Mg/10 Ml Vial) 40 mg IVPUSH BID@0630,1630 [facility] Last Admin: 12/28/23 05:40 Dose: 40 mg Documented By: BERNIE Pharmacy Consult (Consult Rx Etoh Phenob Po Only) 1 each MISCELLANE ONCE PRN; Protocol PRN Reason: Consult order Phenobarbital (Phenobarbital 15 Mg Tablet) 45 mg PO BID [facility]; Protocol Stop: 12/29/23 21:01 Last Admin: 12/28/23 08:18 Dose: 45 mg Documented By: ERICA Phenobarbital (Phenobarbital 30 Mg Tablet) 30 mg PO BID [facility]; Protocol Stop: 12/31/23 21:01 Phenobarbital (Phenobarbital 30 Mg Tablet) 30 mg PO DAILY [facility]; Protocol Stop: 01/02/24 09:01 Pyridoxine HCl (Pyridoxine Hcl (Vitamin B6) 50 Mg Tablet) 50 mg PO DAILY [facility] Last Admin: 12/28/23 08:17 Dose: 50 mg Documented By: ERICA Sertraline HCl (Sertraline Hcl 50 Mg Tablet) 50 mg PO DAILY [facility] Last Admin: 12/28/23 08:18 Dose: 50 mg Documented By: ERICA Sodium Chloride (0.9 % Sodium Chloride Flush 3 Ml Syringe) 3 ml IVFLUSH QSHIFT [facility] Last Admin: 12/28/23 08:17 Dose: 3 ml Documented By: ERICA Thiamine HCl (Thiamine Hcl 100 Mg Tablet) 100 mg PO DAILY [facility] Last Admin: 12/28/23 08:18 Dose: 100 mg Documented By: ERICA Labs 12/27/23 05:56 12/26/23 06:25 Microbiology Microbiology Results: Microbiology 12/25/23 10:07 Fungal Identification - Preliminary Brushing - [place] Esophagus No growth to date. Assessment and Plan (1) Esophagitis: Status: Acute (2) Alcohol withdrawal: Status: Acute Plan 58-year-old male with a PMH significant for alcohol use disorder with history of withdrawal,?HTN, hx of PE on Eliquis, and opiate use disorder on methadone who presents to the ED with?abdominal and left leg pain. Pt will be admitted to the hospital for treatment and further evaluation of upper GI bleed in the setting of alcoholic use disorder. Acute Upper GI bleed Persistent intermittent epigastric pain, no recurrent episodes of coffee-ground emesis In the setting of alcohol use disorder,had coffee-ground emesis x2 while in the ED s/p egd-noted to have esophageal ulcer, mild antral gastritis H&H dropped but above transfusion threshold GI recommend fluconazole 400 mg by mouth daily for total 14 days for esophageal candidiasis is started on 12/24 Will transition to oral PPI, monitor CBC, repeat EGD/colonoscopy in 3-4 months PCT brushings/biopsy were sent and pending Will advance diet to regular Alcohol use disorder Drinking up to 1L vodka daily Continue thiamine, folic acid, multivitamin, Protonix, phenobarbital, seen by Addiction medicine patient active with AA and has many friends and family for support. Left femur fracture ed d/w ortho-Has been non-compliant, walking at home with multiple falls ortho rec:pwb w walker,no abduction ,follow outpatient Physical therapy recommend outpatient PT for left femur fracture. Bradycardia : ? related to methadone tsh 0.02, check t4 moniter on tele Leukocytosis: Likely reactive Unremarkable urinalysis and chest x-ray WBC normalized Hx of PE GI recommended to hold anticoagulation for 5 days. Will resume Eliquis on December 29 Opioid use disorder Continue methadone Full Code DVT Prophylaxis: Pneumatic boots due to upper GI bleed Ongoing hospitalization of for treatment of?upper GI bleed in setting of alcohol use disorder,, possible candidal esophagitis, esophageal ulcer: Need IV ppi, fluconazole ,close monitoring of H&H, electrolytes,alcohol withdrawal -need phenobarbital,ciwa monitering Quality Stroke Does the patient have a stroke diagnosis?: No VTE Prior VTE?: No VTE Risk Level:: Medical - moderate - high VTE Device Contraindication: N/A - Device Ordered VTE Drug Contraindication: Treatment Not Indicated
[2023-12-28] MEDS: Omeprazole 40 MG CAPSULE.DR PO (15:40)
[2023-12-28 15:47] VITALS: BP 115/69; PULSE 60; RESP 16; TEMP 36.5; O2SAT 97
[2023-12-28] MEDS: Acetaminophen 325 MG TABLET 650 MG PO (18:11)
[2023-12-28 20:00] VITALS: BP 116/56; PULSE 61; RESP 20; TEMP 37.1; O2SAT 98
[2023-12-28] MEDS: Melatonin 3 MG TABLET 6 MG PO (20:20)
[2023-12-29] VITALS: BP 128/73; PULSE 50; RESP 18; TEMP 36.3; O2SAT 97
[2023-12-29] MEDS: 0.9 % Sodium Chloride Flush 3 ML SYRINGE IVFLUSH (00:11)
[2023-12-29 03:54] VITALS: BP 134/82; PULSE 58; RESP 18; TEMP 36.6; O2SAT 95
[2023-12-29] MEDS: Omeprazole 40 MG CAPSULE.DR PO (05:36)
[2023-12-29 06:17] LABS: Hematocrit 30.9 % (42.0-52.0); Hemoglobin 10.2 g/dl (14.0-18.0); Mean Corpuscular Hemoglobin 27.3 pg (27.0-33.0); Mean Corpuscular Volume 82.6 fL (80.0-98.0); Mean Platelet Volume 9.9 fL (9.4-12.4); Platelet Count 250 X10*3/uL (160-400); Red Blood Count 3.74 X10*6/uL (4.60-5.80); Red Cell Distribution Width 14.9 % (11.0-16.0); White Blood Count 5.9 X10*3/uL (4.8-10.8)
[2023-12-29 06:46] LABS: T4 Thyroxine 5.6 ug/dL (4.5-12.0)
[2023-12-29 07:54] VITALS: BP 138/69; PULSE 53; RESP 20; TEMP 37.2; O2SAT 96
[2023-12-29] MEDS: Sertraline HCL 50 MG TABLET PO (09:25)
[2023-12-29] MEDS: Thiamine HCL 100 MG TABLET PO (09:25)
[2023-12-29] MEDS: PHENobarbitaL 15 MG TABLET 45 MG PO (09:25)
[2023-12-29] MEDS: Fluconazole 100 MG TABLET PO (09:25)
[2023-12-29] MEDS: Pyridoxine HCl (Vitamin B6) 50 MG TABLET PO (09:26)
[2023-12-29] MEDS: Acamprosate Calcium 333 MG TABLET.DR 666 MG PO (09:26)
[2023-12-29] MEDS: methADONE HCl 20 MG/2 ML ORAL.CONC 30 MG PO (09:26)
[2023-12-29] MEDS: Folic Acid 1 MG TABLET PO (09:26)
[2023-12-29] MEDS: hydrOXYzine HCL 25 MG TABLET PO (09:26)
--- NOTE | 2023-12-29 10:18 | PM.DS ---
DS: Providers Provider Date of Service: 12/29/23 Date of admission: 12/24/23 18:52 Primary care physician: Maximo Morfin MD Consults: 12/24/23 18:48 Consult to Gastroenterology Routine Consulting Provider: Brannon Carl Reason for consultation: Coffee ground emesis, alcohol use disorder, ?UGIB 12/24/23 20:28 Addiction Medicine Routine Consulting Provider: Addiction Covering Reason for consultation: Alcohol and opioid use disorders 12/25/23 13:54 Consult to Orthopedics Routine Consulting Provider: [facility] Reason for consultation: left femur fracture Has provider been notified: No DS: Diagnosis Discharge Diagnosis (1) Esophagitis: Status: Acute (2) Alcohol withdrawal: Status: Acute DS: Summary Hospital Course Hospital Course: History of presenting illness: Date of Service: 12/24/23 Attending physician on admission: Adriel Rocha <MARTHA Parisi - Last Filed: 12/24/23 20:44> Chief Complaint: Abdominal pain <MARTHA Parisi - Last Filed: 12/24/23 20:44> Pt is a 58-year-old male with a PMH significant for alcohol use disorder with history of withdrawal,?HTN, hx of PE on Eliquis, and opiate use disorder on methadone who presents to the ED with?abdominal and left leg pain. This is the patient's 3rd presentation to the ED in as many days. Initially presented on 12/21 after being found on unresponsive the ground outside of a bus stop where 911 was called in by a bystander. Patient had been drinking up to 2 pt of vodka prior to his presentation. Workup at that time found a possible new left femur fracture at site of previous surgical repair. ED clinician consulted Orthopedics who reviewed films and recommended patient being nonweightbearing on affected leg, but no surgical intervention necessary at that time and patient could follow-up in the clinic. The following day patient re-presented to ED after falling while getting out of a car. Workup was negative for any acute injuries. Patient presents again today to the ED after another fall at home, this time after tripping over his roommate's dog. Apparently developed severe epigastric pain while waiting for the ambulance and was noted to have 2 episodes of coffee-ground emesis while in the ED. patient seen and evaluated at bedside where he is resting comfortably in bed. Complains only of epigastric and left thigh pain. Currently denies nausea, vomiting. No fever or chills. Denies increasing anxiety or auditory or visual hallucinations. No chest pain/pressure, palpitations. Denies shortness of breath or difficulty breathing. Patient overall is a vague and begrudging historian. Apparently has been drinking up to 1 L of vodka daily with last drink sometime yesterday. In the ED pt with elevated heart rate up to 100, and hypertensive up to 186/88. Labs were significant for leukocytosis of 18.3, potassium 3.1, and alk-phos 143. Left femur x-ray was stable. CXR showed no active cardiopulmonary disease. CT of head with no acute findings and no change from previous exams. CT of cervical spine found degenerative changes but no acute fracture or dislocation. CT of abdomen and pelvis found no evidence of active GI bleeding, though showed new wall thickening and edema of the distal thoracic esophagus and small amount of surrounding fluid. EKG demonstrated normal sinus rhythm without evidence of significant ST elevations or depressions. Pt was treated with Maalox, omeprazole, lisinopril, IVF, Protonix, morphine, and hydromorphone. Pt will be admitted to the hospital for treatment and further evaluation of upper GI bleed in the setting of alcoholic use disorder. Hospital course: 58-year-old male with a PMH significant for alcohol use disorder with history of withdrawal,?HTN, hx of PE on Eliquis, and opiate use disorder on methadone who presents to the ED with?abdominal and left leg pain. Pt will be admitted to the hospital for treatment and further evaluation of upper GI bleed in the setting of alcoholic use disorder. 58-year-old gentleman admitted with Acute Upper GI bleed,in the setting of alcohol use disorder,had coffee-ground emesis x2 while in the ED, underwent egd-noted to have esophageal ulcer, mild antral gastritis and esophageal candidiasis, H&H dropped but above transfusion threshold, postprocedure placed on fluconazole 200 mg by mouth daily for total 14 days for esophageal candidiasis started on 12/24, Prilosec 40 mg b.i.d. GI recommend repeat EGD/colonoscopy in 3-4 months, PCT brushings/biopsy were sent and pending, patient continued to have mild intermittent epigastric discomfort currently tolerating diet therefore being discharged home with strong recommendation to abstain from alcohol. In regard to alcohol use disorder patient was treated with a phenobarb protocol, thiamine and folic acid was seen by Addiction Medicine patient is active with AA and has many friends and family for support no further intervention recommended. Patient noted to have reactive leukocytosis resolved, no infection noted with a unremarkable urinalysis and a normal chest x-ray. History of Left femur fracture, patient noncompliant walking at home with multiple falls, ortho recommend partial weight-bearing with walker, no abduction recommend outpatient follow-up with Orthopedic surgery Physical therapy recommend outpatient PT for left femur fracture. Noted to have transient bradycardia likely related to methadone ,tsh 0.02, with a T4 of 5.6 likely subclinical hyperthyroidism recommend outpatient follow-up with PCP. Hx of PE Eliquis held due to upper GI bleed recommended to resume Eliquis on December 30. Opioid use disorder Continue methadone Time Attestation Discharge Coordination Time (in mins): 40 Quality: Safe Use of Opioids Does Pt have an Active Cancer Diagnosis on the Problem List?: No Quality: Stroke Does the patient have a stroke diagnosis?: No Physical Exam Vital Signs: Vital Signs: Last Vital Signs Temp 98.9 F 12/29/23 07:54 Pulse 53 12/29/23 07:54 Resp 20 12/29/23 07:54 BP 138/69 12/29/23 07:54 Pulse Ox 96 12/29/23 07:54 O2 Del Method Room Air 12/29/23 09:00 BMI result Body Mass Index 22.3 Const: Other: General awake alert x3 ,no acute distress. Neck supple no JVD. CVS regular rate rhythm, Respiratory lungs clear to auscultation, no respiratory distress, no wheeze, no rhonchi. Gastrointestinal abdomen soft, non tender, bowel sounds audible, no guarding , no rigidity. Extremities no edema. Neuro non focal , speech clear, no shakiness or tremors. Skin no rash Psych appropriate affect DS: Data Data Completed and Pending Completed studies during hospitalization [Text1]: Pending at discharge 12/25/23 10:03 Surgical [PTH] Routine Procedures Insertion of Endotracheal Airway into Trachea, Via Natural or Artificial Opening (09/07/23) Introduction of Vasopressor into Peripheral Vein, Percutaneous Approach (09/07/23) Respiratory Ventilation, Less than 24 Consecutive Hours (09/07/23) Labs on day of discharge: Laboratory Results - last 24 hr 12/29/23 05:52 WBC 5.9 RBC 3.74 L Hgb 10.2 L Hct 30.9 L MCV 82.6 MCH 27.3 MCHC 33.0 RDW 14.9 Plt Count 250 D MPV 9.9 Absolute Nucleated RBC 0.000 Nucleated RBC % (auto) 0.0 Thyroxine (T4) 5.6 Preliminary micro results at discharge 12/25/23 10:07 Fungal Identification - Preliminary Brushing - [place] Esophagus No growth to date. Discharge Plan Discharge Anticipated Discharge Date/Time: 12/29/23 10:00 Patient Disposition: Home, Self-Care Discharge Diagnosis: Upper GI bleed Referrals: Maximo Morfin MD [Primary Care Provider] - 1 Week Discharge Medications: New fluconazole 100 mg Tablet 200 mg PO DAILY Qty: 10 0RF omeprazole 40 mg Capsule,Delayed Release(Dr/Ec) 40 mg PO BID@0630,1630 Qty: 180 0RF Continued sertraline 50 mg Tablet 50 mg PO DAILY 30 Days Qty: 30 0RF acamprosate 333 mg Tablet,Delayed Release (Dr/Ec) 666 mg PO TID 30 Days Qty: 180 0RF lisinopril 10 mg tablet 10 mg PO DAILY 30 Days Qty: 30 0RF hydroxyzine HCl 25 mg tablet 25 mg PO TID 30 Days Qty: 90 0RF thiamine HCl (vitamin B1) 100 mg tablet 100 mg QAM melatonin 3 mg tablet 6 mg PO BEDTIME pyridoxine (vitamin B6) [Vitamin B-6] 50 mg tablet 50 mg DAILY folic acid 1 mg tablet 1 mg QAM epinephrine 0.3 mg/0.3 mL auto-injector 0.3 mg DIRECTED methadone [Methadose] 10 mg/mL Concentrate 27 mg PO DAILY Held Eliquis 5 mg tablet 5 mg PO BID 30 Days Qty: 60 0RF Hold Instructions: Resume on 12/31/23. Discontinued omeprazole 20 mg Capsule,Delayed Release(Dr/Ec) 20 mg PO DAILY@0630 30 Days Qty: 30 0RF Discharge Orders: Discharge Order (Routine); Ordered 12/29/23 Ordered By: Jean-Paul Rojas Diet: Advance to usual diet Activity on Discharge: As tolerated Stand Alone Forms: Patient Portal Discharge page Print Language: [place] Care Plan Goals: Take fluconazole 200 mg daily for total 10 days Take Prilosec 40 mg 1 tablet twice daily Strongly recommend to abstain from alcohol Health Concerns: Continue all home medications as directed Plan of Treatment: Outpatient follow-up with PCP call for appointment Outpatient follow-up with freight claim investigator Dr. Carl for repeat upper endoscopy and colonoscopy in 3-4 months Assessment: As above
--- NOTE | 2023-12-29 11:30 | MHC.CM.PN ---
Pt has been medically cleared for DC, CM spoke with him to ask if he wants shuttle transport home, he declined, saying his brother may be able to pick him up, or he will take a bus.
[2023-12-29 11:58] VITALS: BP 132/74; PULSE 62; RESP 20; TEMP 36.7; O2SAT 97
== END 2023-12-29 14:16 | disposition home health service (06) | DRG 241 ==
LOC: HO.ED 11:12 → HO.EDOVER 19:13 → HO.IMC 12-25 04:50
PROVIDERS: Internal Medicine; Internal Medicine Gastroenterology; Physician Assistant Medical; Admitting Provider Student in an Organized Health Care Education/Training Program; Emergency Provider Emergency Medicine; PCP Internal Medicine; Visit Provider Hospitalist
PROC: 0DJ08ZZ Inspection of Upper Intestinal Tract, Via Natural or Artificial Opening Endoscopic (ICD-10-PCS; CPT 43235; principal; 2023-12-25 09:00)
DX: K29.21 Alcoholic gastritis with bleeding (principal); S72.122A Displaced fracture of lesser trochanter of left femur, initial encounter for closed fracture; K22.11 Ulcer of esophagus with bleeding; R00.1 Bradycardia, unspecified; T40.3X5A Adverse effect of methadone, initial encounter; K21.01 Gastro-esophageal reflux disease with esophagitis, with bleeding; F17.210 Nicotine dependence, cigarettes, uncomplicated; T45.516A Underdosing of anticoagulants, initial encounter; W19.XXXA Unspecified fall, initial encounter; F10.139 Alcohol abuse with withdrawal, unspecified; Z71.6 Tobacco abuse counseling; F11.20 Opioid dependence, uncomplicated; R29.6 Repeated falls; I10 Essential (primary) hypertension; E03.8 Other specified hypothyroidism; Z91.199 Patient's noncompliance with other medical treatment and regimen due to unspecified reason; Z86.711 Personal history of pulmonary embolism; Z79.01 Long term (current) use of anticoagulants; Z79.899 Other long term (current) drug therapy
CPT/HCPCS: 36415; 70450; 71046; 72125; 73552; 74178; 80048; 80053; 80076; 80307; 81001; 81003; 83690; 83735; 84436; 84443; 84484; 85025; 85027; 85610; 85730; 86850; 86900; 86901; 87102; 88305; 88313; 88342; 93005; 97161; 99285; C9113; J1170; J1450; J2270; J2405; J2560; J2704; J7120; Q9967

== ENCOUNTER → 2023-12-24 12:05 | Outpatient (BNV) | payer MEDICAID, SELFPAY | PROVIDERS: Admitting Provider Student in an Organized Health Care Education/Training Program; Emergency Provider Emergency Medicine; Visit Provider Internal Medicine | DX: R07.9 Chest pain, unspecified (principal) | CPT/HCPCS: 93010 ==

== ENCOUNTER 2023-12-24 18:52 | Outpatient (BNV) | payer MEDICAID, SELFPAY | END 2023-12-27 10:03 | PROVIDERS: Admitting Provider Student in an Organized Health Care Education/Training Program; Emergency Provider Emergency Medicine; Visit Provider Internal Medicine Cardiovascular Disease | DX: R00.1 Bradycardia, unspecified (principal) | CPT/HCPCS: 93010 ==

== ENCOUNTER → 2023-12-24 18:52 | Outpatient (BNV) | payer MEDICAID, SELFPAY | PROVIDERS: Admitting Provider Student in an Organized Health Care Education/Training Program; Emergency Provider Emergency Medicine; PCP Internal Medicine; Visit Provider Internal Medicine Gastroenterology | DX: K92.0 Hematemesis (principal); K21.9 Gastro-esophageal reflux disease without esophagitis; R10.9 Unspecified abdominal pain; K20.90 Esophagitis, unspecified without bleeding; K29.70 Gastritis, unspecified, without bleeding; F10.10 Alcohol abuse, uncomplicated | CPT/HCPCS: 43239; 99233 ==

== ENCOUNTER → 2023-12-24 18:52 | Outpatient (BNV) | payer MEDICAID, SELFPAY | PROVIDERS: Admitting Provider Student in an Organized Health Care Education/Training Program; Emergency Provider Emergency Medicine; Visit Provider Student in an Organized Health Care Education/Training Program | DX: K20.90 Esophagitis, unspecified without bleeding (principal); F10.939 Alcohol use, unspecified with withdrawal, unspecified | CPT/HCPCS: 99223; 99231; 99232; 99239 ==

== ENCOUNTER → 2023-12-24 18:52 | Outpatient (BNV) | payer OTHER, SELFPAY | PROVIDERS: Admitting Provider Student in an Organized Health Care Education/Training Program; Emergency Provider Emergency Medicine; Visit Provider Nurse Practitioner Psychiatric/Mental Health | DX: F10.20 Alcohol dependence, uncomplicated (principal); F11.20 Opioid dependence, uncomplicated | CPT/HCPCS: 99231 ==

== ENCOUNTER 2023-12-31 14:46 | Emergency (ER) | payer MEDICAID, SELFPAY ==
--- NOTE | 2023-12-31 | ECG_ITS ---
Test Reason : CHEST PAIN Blood Pressure : / mmHG Vent. Rate : 068 BPM Atrial Rate : 068 BPM P-R Int : 144 ms QRS Dur : 086 ms QT Int : 424 ms P-R-T Axes : 044 012 037 degrees QTc Int : 450 ms Normal sinus rhythm Normal ECG When compared with ECG of 27-DEC-2023 10:03, No significant change was found Referred By: Generic ED Physician Electronically Signed By:Ahmet Lenz
--- NOTE | ~2023-12-31 | CT_ITS ---
EXAMINATION: CT HEAD WITHOUT CONTRAST CLINICAL INFORMATION: Fall COMPARISON: Previous head CT scans, most recent December 24, 2023 TECHNIQUE: Contiguous axial imaging was performed from the skull base to vertex without intravenous administration of contrast. This CT examination was performed using dose optimization techniques as appropriate, variously including the following: *Automated exposure control *Adjustment of mA and/or kV according to patient size (this includes techniques or standardized protocols for targeted exams where dose is matched to indication/reason for exam; i.e. extremities or head) *Use of iterative reconstruction technique DLP: 666 mGy-cm FINDINGS: There is no evidence of an extra-axial collection. There is no evidence of intra or extra-axial hemorrhage. There is a high attenuation extra-axial mass adjacent to the left frontal lobe near this sylvian fissure measuring 1.1 x 1.2 cm that is stable and likely represents a meningioma. There is an old right basal ganglia lacunar infarct. No other mass, mass effect or acute infarct is seen. No skull fracture. Sinuses mastoid air cells and middle ears are clear. CT/CT head/brain wo IV con IMPRESSION: No acute findings. Stable small left frontal meningioma and old right basal ganglia lacunar infarct similar to prior exams.
--- NOTE | ~2023-12-31 | XR_ITS ---
EXAMINATION: XR CHEST CLINICAL INFORMATION: Chest pain COMPARISON: 12/24/2023 TECHNIQUE: 2 views of the chest were obtained. FINDINGS: Lungs are well expanded and without evidence of acute disease. No consolidation, pneumothorax or pleural effusion. There appears to be minimal pleural thickening at the right lateral costophrenic sulcus. Cardiac silhouette is normal in size. Atherosclerotic calcification of the aorta. Bones are diffusely osteopenic. Multiple old healed right rib fractures and hardware rib fixation. XR/XR chest 2V IMPRESSION: * No acute cardiopulmonary disease. * Bones are diffusely osteopenic and there are multiple old healed rib fractures as well as fixation hardware of several ribs.
[2023-12-31 14:56] VITALS: BP 90/57; BP 96/60; PULSE 81; PULSE 82; RESP 16; TEMP 36.9; O2SAT 98
[2023-12-31 15:27] LABS: MANUAL DIFF FLAG NO
[2023-12-31 15:28] LABS: Basophils Absolute Auto 0.1 X10*3/uL (0.0-0.2); Basophils Percent Auto 0.7 % (0-2); Eosinophils Absolute Auto 0.1 X10*3/uL (0.0-0.4); Eosinophils Percent Auto 0.9 % (0-4); Hematocrit 33.8 % (42.0-52.0); Imm Gran Abs Auto 0.07 X10*3/uL (0.00-0.03); Imm Gran Pct Auto 0.9 % (0.0-0.4); Lymphocytes Absolute Auto 2.4 X10*3/uL (1.2-4.9); Lymphocytes Percent Auto 31.9 % (20-40); Mean Corpuscular HGB Conc 32.5 g/dl (31.0-36.0); Mean Corpuscular Hemoglobin 27.2 pg (27.0-33.0); Mean Corpuscular Volume 83.7 fL (80.0-98.0); Mean Platelet Volume 9.6 fL (9.4-12.4); Monocytes Absolute Auto 0.5 X10*3/uL (0.1-1.2); Monocytes Percent Auto 6.4 % (2-11); Neutrophils Absolute Auto 4.4 x10*3/uL (2.0-8.3); Neutrophils Percent Auto 59.2 % (45-73); Platelet Count 352 X10*3/uL (160-400); Red Blood Count 4.04 X10*6/uL (4.60-5.80); Red Cell Distribution Width 15.4 % (11.0-16.0); White Blood Count 7.5 X10*3/uL (4.8-10.8)
--- NOTE | 2023-12-31 15:38 | ED_ITS ---
HPI - Chest Pain General Chief Complaint: Chest Pain Stated Complaint: Chest pains started 2 hours ago, per ems Time Seen by Provider: 12/31/23 15:22 Source: patient Mode of arrival: EMS Limitations: no limitations History of Present Illness HPI narrative: This is a 58-year-old man with a past medical history of alcohol use disorder with history of withdrawal, hypertension, history of PE on Eliquis and opiate use disorder on methadone who was brought in by EMS for evaluation of syncope. Patient states that he was in a parking lot with his friends playing cards and drinking gin. He states that he only had ?2 shots of gin ? today. He states feeling lightheadedness earlier today prior to the syncope. He states no vision changes, speech changes or hearing changes. He states no tongue biting or urinary incontinence. He states he had chest pain earlier, but states he has no chest pain at this time. He states no dyspnea. He states that he broke his left leg recently after he fell. He states no new injury after passing out today. He states no headstrike. He states no abdominal pain or nausea/vomiting. He states no hematemesis, melena or hematochezia. He states no back pain or neck pain. He states no extremity weakness or paresthesias. Related Data Home Medications ?Medication ?Instructions ?Recorded ?Confirmed epinephrine 0.3 mg/0.3 mL 0.3 mg DIRECTED 12/24/23 12/24/23 injection, auto-injector folic acid 1 mg tablet 1 mg QAM 12/24/23 12/24/23 melatonin 3 mg tablet 6 mg PO BEDTIME 12/24/23 12/24/23 pyridoxine (vitamin B6) 50 mg 50 mg DAILY 12/24/23 12/24/23 tablet (Vitamin B-6) thiamine HCl (vitamin B1) 100 mg 100 mg QAM 12/24/23 12/24/23 tablet methadone 10 mg/mL oral 27 mg PO DAILY 12/26/23 12/26/23 concentrate (Methadose) Previous Rx's ?Medication ?Instructions ?Recorded acamprosate 333 mg tablet,delayed 666 mg (2 x 333 mg) PO TID 30 days 09/15/23 release #180 tabs apixaban 5 mg tablet (Eliquis) 5 mg PO BID 30 days #60 tabs 09/15/23 hydroxyzine HCl 25 mg tablet 25 mg PO TID 30 days #90 tabs 09/15/23 lisinopril 10 mg tablet 10 mg PO DAILY 30 days #30 tabs 09/15/23 sertraline 50 mg tablet 50 mg PO DAILY 30 days #30 tabs 09/15/23 fluconazole 100 mg tablet 200 mg (2 x 100 mg) PO DAILY #10 12/29/23 tabs omeprazole 40 mg capsule,delayed 40 mg PO BID@0630,1630 #180 caps 12/29/23 release Allergies Allergy/AdvReac Type Severity Reaction Status Date / Time bee pollen [BEE STINGS] Allergy Severe SWELLING Verified 12/31/23 14:58 Review of Systems 2 Review of Systems: ROS as per [facility] Past Medical History Medical History Substance abuse EtOH dependence Hypertension Surgical History Hx of endoscopy History of total right hip replacement Family History Family History Father Stomach cancer Social History Social History Household Members: None Housing: Homeless Do you presently have visiting nurse or other home services: No Alcohol intake: current Alcohol intake frequency: 3 or more drinks per day Alcohol type: hard liquor Comment: 1:1 Patient Tobacco Use Status: Current someday Tobacco user Tobacco use type: Cigarette Cigarettes Per Day: 5 Years Smoked: 20 Smoked in Last 30 Days: Yes e-Cigarette/Vaping Use: Never Used Second Hand Smoke Exposure: Yes Use of substances other than those prescribed or required for medical reasons: No Substance Use Type: Heroin Advance Directives: No Advance Directives Information Provided: Yes service: No Current occupational status: unemployed Sexual orientation: Straight/Heterosexual Physical Exam 2 Vital Signs: Vital Signs: Last Vital Signs Temp 98.2 F 12/31/23 19:50 Pulse 68 12/31/23 19:50 Resp 16 12/31/23 19:50 BP 114/60 12/31/23 19:50 Pulse Ox 96 12/31/23 19:50 O2 Del Method Room Air 06/21/24 19:50 BMI result Body Mass Index 20.0 Gen: NAD, AOx3 HEENT: NCAT, EOMI, normal conjunctiva CV: RRR, 2+ bilateral radial and DP/PT pulses Pulm: CTAB, no increased work of breathing GI: Soft, NTND, no rebound, guarding or rigidity MSK: Bilateral upper and lower extremity compartments are soft with intact overlying skin, no midline vertebral tenderness to palpation, full range of motion with neck flexion/extension and lateral 4-5 degree rotation Neuro: Grossly non focal Medications Administered Discontinued Medications Generic Name Dose Route Start Last Admin Trade Name Chrisq PRN Reason Stop Dose Admin Lactated Ringer's 1,000 mls @ 999 mls/hr 12/31/23 16:20 12/31/23 19:50 Lr IV 12/31/23 17:20 Infused .Q1H1M ONE Infusion Thiamine HCl 100 mg/ Sodium 101 mls @ 202 mls/hr 12/31/23 16:20 12/31/23 18:43 Chloride IV 12/31/23 16:49 Infused ONCE ONE Infusion Medical Decision Making Medical Decision Making MDM Narrative: Differential diagnosis includes, but is not limited to vasovagal episode, orthostasis, alcohol abuse, arrhythmia, acute kidney injury, electrolyte derangement, pneumothorax, traumatic intracranial hemorrhage. Labs reviewed and interpreted by me. Labs demonstrate a stable chronic anemia of 11.0 (10.2 and 9.3 earlier this month). Complete metabolic panel is reassuring. Ethyl alcohol is 163. Patient is provided 100 mg IV thiamine and 1 L IV LR. Troponin is minimally elevated at 6.2. I have low suspicion for acute coronary syndrome given atypical presentation exertional chest pain, emesis or right- sided chest pain. Further, EKG is reassuring with no electrocardiographic findings to suggest ischemia. Further, EKG is without morphology to suggest underlying conduction abnormality and syncope related to arrhythmia. 2 hour troponin 5.1 effectively ruling out acute coronary syndrome. CT head is unremarkable for any acute process. Chest x-ray is unremarkable for any acute cardiopulmonary process. On reevaluation, patient is awake, alert and has decision making capacity. He states he is interested in pursuing alcohol detox. I have discussed with CARE team regarding patient's desire for alcohol detox who recommend consulting Recovery who is not currently here in the ED at this time. Patient is not currently exhibiting signs or symptoms of acute alcohol withdrawal at time of signout to overnight physician. Care is transitioned to Dr. Silverio at 2100 with disposition pending placement for alcohol detox. Admission/Observation Consideration of admission/observation: Escalation of care including admission/observation considered Lab Data MDM Lab Attestation statement: I reviewed the patient's lab results. 12/31/23 15:23 12/31/23 15:23 Labs: Lab Results 12/31/23 12/31/23 12/31/23 Range/Units 15:23 17:38 20:43 WBC 7.5 (4.8-10.8) X10*3/uL RBC 4.04 L (4.60-5.80) X10*6/uL Hgb 11.0 L (14.0-18.0) g/dl Hct 33.8 L (42.0-52.0) % MCV 83.7 (80.0-98.0) fL MCH 27.2 (27.0-33.0) pg MCHC 32.5 (31.0-36.0) g/dl RDW 15.4 (11.0-16.0) % Plt Count 352 D (160-400) X10*3/uL MPV 9.6 (9.4-12.4) fL Immature Gran % (Auto) 0.9 H (0.0-0.4) % Neut % (Auto) 59.2 (45-73) % Lymph % (Auto) 31.9 (20-40) % [place] % (Auto) 6.4 (2-11) % Eos % (Auto) 0.9 (0-4) % Baso % (Auto) 0.7 (0-2) % Lymph # (Auto) 2.4 (1.2-4.9) X10*3/uL [place] # (Auto) 0.5 (0.1-1.2) X10*3/uL Eos # (Auto) 0.1 (0.0-0.4) X10*3/uL Baso # (Auto) 0.1 (0.0-0.2) X10*3/uL Abs Immat Gran (auto) 0.07 H (0.00-0.03) X10*3/uL Absolute Neuts (auto) 4.4 (2.0-8.3) x10*3/uL Absolute Nucleated RBC 0.000 (0.0-0.012) X10*3/uL Nucleated RBC % (auto) 0.0 (0.0-0.2) /100WBC Sodium 140 (135-145) mmol/L Potassium 3.9 (3.3-5.1) mmol/L Chloride 103 (96-108) mmol/L Carbon Dioxide 25 (22-29) mmol/L Anion Gap 16 (12-20) BUN 8 L (9-16) mg/dL Creatinine 0.95 (0.5-1.4) mg/dL Estim Creat Clear Calc 77.2 Estimated GFR > 60 Random Glucose 80 (60-115) mg/dL Calcium 9.4 D (8.4-10.2) mg/dL Total Bilirubin 0.1 (0.0-1.0) mg/dL AST 12 (5-37) U/L ALT 7 (0-40) U/L Alkaline Phosphatase 110 (39-117) U/L Troponin I High Sens 6.2 5.1 (<3.5-35.0) ng/L Total Protein 6.7 (6.5-8.0) g/dL Albumin 3.7 (3.5-5.0) g/dL Salicylates < 5.0 L (15-30) mg/dL Acetaminophen < 3 (<30) mcg/mL Ethyl Alcohol 163 mg/dL Independent Interpretation I performed an independent interpretation of an: EKG and Plain X-Ray Interpretation: EKG on my independent review and interpretation shows normal sinus rhythm at 68 beats per minute, NM 144, QRS 86, QTC 450, no ST/T-wave changes, no STEMI, no dagger-likely Q-waves, no epsilon wave, no Brugada morphology, no delta wave (compared to previous EKG December 27, 2023 there are no diagnostic ischemic changes) Two-view chest x-ray on my independent review and interpretation shows no widened mediastinum, pneumothorax or focal infiltrate/consolidation Radiology Impression Discussion of test interpretation with radiology: I have reviewed the radiologist's reading. Radiologist Impression: IMPRESSION: * No acute cardiopulmonary disease. * Bones are diffusely osteopenic and there are multiple old healed rib fractures as well as fixation hardware of several ribs. Dictated By: Beka Lopez MD Signed By: <Electronically signed by Beka Lopez MD in [place]> 12/31/23 1605 IMPRESSION: No acute findings. Stable small left frontal meningioma and old right basal ganglia lacunar infarct similar to prior exams. Dictated By: Lizabeth Falk MD Signed By: <Electronically signed by Lizabeth Falk MD in [place]> 12/31/23 1646 Discharge Plan Discharge Clinical Impression: Alcohol abuse, Syncope, Chest pain Patient Disposition: Still a Patient Prescriptions: No Action sertraline 50 mg Tablet 50 mg PO DAILY 30 Days Qty: 30 0RF acamprosate 333 mg Tablet,Delayed Release (Dr/Ec) 666 mg PO TID 30 Days Qty: 180 0RF lisinopril 10 mg tablet 10 mg PO DAILY 30 Days Qty: 30 0RF hydroxyzine HCl 25 mg tablet 25 mg PO TID 30 Days Qty: 90 0RF Eliquis 5 mg tablet 5 mg PO BID 30 Days Qty: 60 0RF Hold Instructions: Resume on 12/31/23. thiamine HCl (vitamin B1) 100 mg tablet 100 mg QAM melatonin 3 mg tablet 6 mg PO BEDTIME pyridoxine (vitamin B6) [Vitamin B-6] 50 mg tablet 50 mg DAILY folic acid 1 mg tablet 1 mg QAM epinephrine 0.3 mg/0.3 mL auto-injector 0.3 mg DIRECTED methadone [Methadose] 10 mg/mL Concentrate 27 mg PO DAILY fluconazole 100 mg Tablet 200 mg PO DAILY Qty: 10 0RF omeprazole 40 mg Capsule,Delayed Release(Dr/Ec) 40 mg PO BID@0630,1630 Qty: 180 0RF Print Language: Macedonian
[2023-12-31 15:41] LABS: Alanine Aminotransferase 7 U/L (0-40); Albumin Level 3.7 g/dL (3.5-5.0); Alkaline Phosphatase 110 U/L (39-117); Anion Gap 16 (12-20); Aspartate Amino Transferase 12 U/L (5-37); Bilirubin Total 0.1 mg/dL (0.0-1.0); Blood Urea Nitrogen 8 mg/dL (9-16); Calcium 9.4 mg/dL (8.4-10.2); Carbon Dioxide 25 mmol/L (22-29); Chloride 103 mmol/L (96-108); Creatinine Clr Calc Pharmacy 77.2; Estimated Glomerular Filt Rate > 60; Glucose Random 80 mg/dL (60-115); Potassium 3.9 mmol/L (3.3-5.1); Sodium 140 mmol/L (135-145); Total Protein 6.7 g/dL (6.5-8.0)
[2023-12-31 15:48] LABS: Troponin-I High Sensitivity 6.2 ng/L (<3.5-35.0)
[2023-12-31 16:06] LABS: Ethanol 163 mg/dL
[2023-12-31 17:22] VITALS: PULSE 86
[2023-12-31] MEDS: Thiamine HCL 100 MG in 0.9 % Sodium Chloride 100 ML 202 MG IV (17:49)
[2023-12-31 18:06] VITALS: BP 94/46; PULSE 66; RESP 14; TEMP 36.9; O2SAT 98
[2023-12-31 18:11] LABS: Troponin-I High Sensitivity 5.1 ng/L (<3.5-35.0)
[2023-12-31] MEDS: Lactated Ringers 1,000 ML 999 ML IV (18:44)
--- NOTE | 2023-12-31 19:05 | PC.NURSE ---
This RN assumed pt care @ 1900. Pt ca&ox4, no signs of distress. Pt sitting up in bed comfortably, eating and watching tv. Pt requested and given warm blanket and hob lowered. Plan of care ongoing.
[2023-12-31 19:50] VITALS: BP 114/60; PULSE 68; RESP 16; TEMP 36.8; O2SAT 96
[2023-12-31 21:08] LABS: Acetaminophen LAB < 3 mcg/mL (<30); Salicylate < 5.0 mg/dL (15-30)
--- NOTE | 2023-12-31 21:16 | PC.NURSE ---
Pt requested and assisted to the restroom. Pt given cup for UA Plan of care ongoing.
[2023-12-31 21:44] LABS: Amphetamine Screen Urine Not Detected (Not Detect); Barbiturates, Urine POSITIVE (Not Detect); Benzodiazepines Screen Urine Not Detected (Not Detect); Buprenorphine Scr Positive (Not Detect); Cannabinoid Screen Urine Not Detected (Not Detect); Cocaine Screen Urine Not Detected (Not Detect); Fentanyl, urine Not Detected (Not Detect); Methadone Screen, Urine Positive (Not Detect); Opiate Screen Urine Not Detected (Not Detect); Oxycodone Screen Urine Not Detected (Not Detect); Phencyclidine Screen Urine Not Detected (Not Detect)
[2024-01-01 06:20] VITALS: BP 159/85; PULSE 73; RESP 12; TEMP 37; O2SAT 95
--- NOTE | 2024-01-01 08:16 | MHC.EDTECH ---
tech assisted pt to the restroom
[2024-01-01 11:05] VITALS: BP 000/00; PULSE 0; RESP 0; TEMP -17.7; TEMP 0; O2SAT 0
== END 2024-01-01 11:07 | disposition home or self-care (01) ==
PROVIDERS: Emergency Provider Emergency Medicine; PCP Internal Medicine
DX: R07.89 Other chest pain (principal); F10.129 Alcohol abuse with intoxication, unspecified; Y90.6 Blood alcohol level of 120-199 mg/100 ml; R55 Syncope and collapse; R11.2 Nausea with vomiting, unspecified; R51.9 Headache, unspecified; I10 Essential (primary) hypertension; Z79.899 Other long term (current) drug therapy
CPT/HCPCS: 36415; 70450; 71046; 80053; 80143; 80179; 80307; 84484; 85025; 93005; 96361; 96365; 99284; 99285; J3411; J7120

== ENCOUNTER → 2023-12-31 14:56 | Outpatient (BNV) | payer MEDICAID, SELFPAY | PROVIDERS: Emergency Provider Emergency Medicine; PCP Internal Medicine; Visit Provider Internal Medicine Cardiovascular Disease | DX: R07.9 Chest pain, unspecified (principal) | CPT/HCPCS: 93010 ==

== ENCOUNTER 2024-01-14 06:37 | Inpatient (IN) | payer MEDICAID, SELFPAY ==
[2024-01-14] VITALS (12 sets, daily range): BP systolic 102–190; BP diastolic 57–100; PULSE 64–89; RESP 10–20; TEMP 36.1–36.9; O2SAT 92–98; BMI 23.7
--- NOTE | 2024-01-14 | ECG_ITS ---
Test Reason : CP/EPIGASTRIC PAIN Blood Pressure : / mmHG Vent. Rate : 085 BPM Atrial Rate : 085 BPM P-R Int : 146 ms QRS Dur : 096 ms QT Int : 402 ms P-R-T Axes : 047 004 034 degrees QTc Int : 478 ms Sinus rhythm with occasional Premature ventricular complexes Otherwise normal ECG When compared with ECG of 31-DEC-2023 14:56, Premature ventricular complexes are now Present Referred By: Eva Roman Electronically Signed By:KAREN AGOSTO
--- NOTE | ~2024-01-14 | CT_ITS ---
EXAMINATION: CT ABDOMEN AND PELVIS WITHOUT AND WITH CONTRAST CLINICAL INFORMATION: Hematemesis. COMPARISON: 12/24/2023 TECHNIQUE: Axial images through the abdomen and pelvis without IV contrast followed by two-phase imaging following 80 mL Omnipaque 350 IV contrast. Sagittal and coronal reconstructions on the technologist workstation were performed. This CT examination was performed using dose optimization techniques as appropriate, variously including the following: *Automated exposure control *Adjustment of mA and/or kV according to patient size (this includes techniques or standardized protocols for targeted exams where dose is matched to indication/reason for exam; i.e. extremities or head) *Use of iterative reconstruction technique DLP: 1324 mGy-cm FINDINGS: There are filling defects within the pulmonary arterial vasculature to the right lower lobe. No pleural or pericardial effusion. Postsurgical changes of the right ribs. Marked esophageal wall thickening and submucosal edema. Postcontrast images demonstrate foci of hyper enhancement and hyperdensity within the distal esophageal wall. This could represent small areas of active bleeding. Trace paraesophageal free fluid. No extraluminal air. The liver is normal in size and contour. No no suspicious hepatic lesion. No biliary ductal dilatation. The gallbladder is unremarkable. No dilatation of the main pancreatic duct. The spleen is not enlarged. No adrenal mass. The kidneys are symmetric in size and enhance normally. There are left renal cysts for which no further imaging follow-up is needed. No small bowel obstruction. Appendix is within normal limits. Scattered diverticula of the colon. Duodenal diverticulum. Moderate fecal retention in the colon. No bulky lymphadenopathy. Normal caliber abdominal aorta. Streak artifact from patient's right total hip prosthesis and left hip hardware limits evaluation of the pelvic visceral structures. The urinary bladder is unremarkable. Small fat-containing umbilical hernia. Chronic compression fracture of L1 vertebral body and right iliac crest fracture similar to prior imaging. Stable postsurgical changes to the lumbar spine. No destructive bone lesion. CT/CT gi bleed abd pel wo/w IVcon IMPRESSION: Marked esophageal wall thickening and submucosal edema. Postcontrast images demonstrate few foci of hyperenhancement and hyperdensity within the distal esophageal wall. This could represent small areas of active bleeding. Trace paraesophageal free fluid. No extraluminal air. Possible right lower lobe pulmonary emboli. Findings were reviewed and discussed with MARTHA Roman at 9:50 AM on 01/14/2024.
--- NOTE | 2024-01-14 06:50 | ED_ITS ---
HPI - General Adult General Chief complaint: GI Bleed Stated complaint: ABD PAIN,VOMITING BRIGHT RED BLOOD PER EMS Time Seen by Provider: 01/14/24 06:44 Source: patient, EMS, RN notes reviewed and old records reviewed Mode of arrival: EMS Limitations: no limitations History of Present Illness ED Provider: NENA ROMAN PA-C HPI narrative: 58 year old male with pmhx significant for alcohol use disorder, opioid use disorder on methadone, HTN, hx of PE on Eliquis presents to the ED today via EMS for evaluation of nausea and vomiting since 0230 this morning. Admits to drinking alcohol daily for the past 3 weeks. Reports drinking at least 3 quarts of vodka and fireball over the last 2 days. His last drink was around 1999 last night. Additionally admits to using cocaine. Reports bright red blood in his vomiting with associated epigastric abdominal pain. He states it's my gastritis . He denies being followed by a GI doctor. States he does not take any medications for this. On arrival, EMS reports administering 4 of zofran en route. Patient denies recent falls or head strikes. Denies headache, dizziness, tremors, anxiety, chest pain, palpitations, SOB, diarrhea, flank pain, dysuria, hematuria. On review, patient recently admitted to medicine on 12/24/2023 after presenting to the ED with abdominal pain and coffee-ground emesis. He underwent EGD at that time and was noted to have esophageal ulcer, mild antral gastritis and esophageal candidiasis. H&H dropped however this was above transfusion threshold. He was placed on fluconazole 200 mg p.o. daily times 14 days and started on Prilosec 40 mg twice daily. He was discharged home with both of these medications. Plan for repeat EGD/colonoscopy in 3-4 months. Regarding ETOH use disorder, patient was treated with phenobarb protocol, thiamine and folic acid. Currently active with AA. He was advised to resume Eliquis on 12/31/2023. Related Data Home Medications ?Medication ?Instructions ?Recorded ?Confirmed methadone 10 mg/mL oral 27 mg PO DAILY 12/26/23 12/26/23 concentrate (Methadose) Previous Rx's ?Medication ?Instructions ?Recorded apixaban 5 mg tablet (Eliquis) 5 mg PO BID 30 days #60 tabs 09/15/23 lisinopril 10 mg tablet 10 mg PO DAILY 30 days #30 tabs 09/15/23 omeprazole 40 mg capsule,delayed 40 mg PO BID@0630,1630 #180 caps 12/29/23 release Allergies Allergy/AdvReac Type Severity Reaction Status Date / Time bee pollen [BEE STINGS] Allergy Severe SWELLING Verified 01/14/24 06:46 FOR[facility]LY [facility] Past Medical History Attestation statement: The following information was validated with the patient. Source: old records reviewed and nursing notes reviewed Medical History Substance abuse EtOH dependence Hypertension Surgical History Hx of endoscopy History of total right hip replacement Family History Family History Father Stomach cancer Social History Social History Household Members: None Housing: Homeless Do you presently have visiting nurse or other home services: No Alcohol intake: current Alcohol intake frequency: 3 or more drinks per day Alcohol type: hard liquor Comment: 1:1 Patient Tobacco Use Status: Current someday Tobacco user Tobacco use type: Cigarette Cigarettes Per Day: 5 Years Smoked: 20 Smoked in Last 30 Days: No e-Cigarette/Vaping Use: Never Used Second Hand Smoke Exposure: Yes Substance Use Type: Heroin Advance Directives: No Do you have a plan to hurt others: No Plan service: No Current occupational status: unemployed Sexual orientation: Straight/Heterosexual Physical Exam ED Vital Signs: Vital Signs - 24 hr 01/14/24 06:47 01/14/24 09:31 01/14/24 10:17 Temperature 98.1 F 98.1 F Pulse Rate 89 80 78 Respiratory Rate 17 11 L 16 Blood Pressure 179/98 H 190/92 H 165/96 H Pulse Oximetry 97 97 94 Oxygen Delivery Method Room Air Room Air Room Air 01/14/24 12:37 01/14/24 13:58 Temperature Pulse Rate 69 78 Respiratory Rate 16 10 L Blood Pressure 132/74 136/78 Pulse Oximetry 96 96 Oxygen Delivery Method Room Air Room Air BMI result Body Mass Index 23.7 Patient hypertensive, vitals otherwise WNL. Const Other: Somewhat somnolent however arousable to verbal stimuli. General: cooperative, comfortable and no acute distress Orientation/consciousness: patient oriented x3 Limitations: no limitations HENMT Head: Yes normal to inspection, Yes No palpable skull fracture present, Yes normocephalic, Yes atraumatic, No Israel's sign, No raccoon eyes and No periorbital ecchymosis Eyes General: appearance normal, both eyes and all related structures Pupils: Equal, round and reactive pupils present EOM: EOMs intact bilaterally Neck Neck: Yes normal visual inspection, Yes full ROM, Yes no lymphadenopathy and Yes no meningeal signs Chest Chest palpation & inspection: normal inspection of the chest and normal palpation of entire chest wall Resp Effort & Inspection: normal respiratory effort and able to speak in complete sentences Auscultation: clear to auscultation bilaterally GI Other: + Abdomen soft, tender to palpation of the epigastric region with guarding. No rebound tenderness. Normoactive bowel sounds x4. No abdomenal wall ecchymosis. General: Yes no CVA tenderness Back/Spine/Pelvis Back: no CVA tenderness Neuro General: patient oriented x3 and no meningeal signs Cranial nerves: Yes Equal, round and reactive pupils present Motor exam (neuro): 5/5 motor strength present throughout, Pronator motor function not present, no tremor noted, no asterixis and Motor fasciculations not present Pupils: Normal pupillary reactivity/response: bilateral Course Course Course Narrative: 0841-- CBC without leukocytosis. Chronic anemia, H&H noted to drop since visit on 12/31/2023 however above transfusion threshold. Concern for blood loss. Awaiting CT abdomen/pelvis with/without contrast. Coags WNL. BUN elevated to 35, patient receiving IVF. ethanol undetectable > CIWA 3. Will continue to monitor for etoh withdrawal. [id number]-- repeat trop ordered for 3 hour patricia. this was drawn 2 hours early by pharmacy technician and trop noted to increase to 7.9. will order true repeat at 3 hour patricia. BP noted to be 190/92. He tells me he did not take his lisinopril this morning. Will give home med and re-evaluate. 1218-- delta troponin flat. > CT abdomen/pelvis with and without contrast shows marked esophageal wall thickening and submucosal edema. Postcontrast images demonstrate few foci of hyperenhancement and hyperdensity within the distal esophageal wall which could represent small areas of active bleeding. There is trace paraesophageal free fluid. No extraluminal air. Also shows incidental finding of right lower lobe pulmonary emboli. Patient has a history of PE on chronic anticoagulation. He has currently not hypoxic, not tachycardic. > I did discuss these findings with on-call GI Dr. Ventura who recommended I speak to Dr. Carl who recently performed EGD for patient. After speaking with Dr. Carl, she believes CT likely represents severe esophagitis and recommended repeat CBC. Repeat CBC shows another drop in H&H to 9.7/29.5. I did discuss this with Dr. Carl who again reports concern for severe esophagitis as patient has been noncompliant with his medications. Drop in H&H likely secondary to IV hydration. She is recommending admission to medicine with IV PPI management which I feel is reasonable. She is also requesting patient's eliquis be held until resolution of hematemesis. Will reach out to hospitalist for admission. 1330-- I discussed case with hospitalist Dr. Bergeron who has accepted patient admission for esophagitis. Hospitalist Amarilis THOMAS to place admission orders. Medications Administered Discontinued Medications Generic Name Dose Route Start Last Admin Trade Name Freq PRN Reason Stop Dose Admin Al Hydroxide/Mg Hydroxide 30 ml 01/14/24 07:17 01/14/24 07:40 Magnesium Hydrox/Alum Hydrox 30 Ml Oral.Susp PO 01/14/24 07:18 30 ml ONCE ONE Administration Famotidine 20 mg 01/14/24 07:17 01/14/24 07:40 Famotidine 20 Mg Tablet PO 01/14/24 07:18 20 mg ONCE ONE Administration Sodium Chloride 1,000 mls @ 999 mls/hr 01/14/24 07:30 01/14/24 10:57 Ns IV 01/14/24 08:30 Infused .Q1H1M JEAN Infusion Iohexol 100 ml 01/14/24 08:36 01/14/24 08:37 Iohexol 350 Mg/Ml 100 Ml Infus..Btl IV 01/14/24 08:37 80 ml ONCE ONE Administration Lisinopril 20 mg 01/14/24 10:08 01/14/24 10:19 Lisinopril 20 Mg Tablet PO 01/14/24 10:09 20 mg ONCE ONE Administration Protocol Pantoprazole Sodium 40 mg 01/14/24 12:05 01/14/24 12:38 Pantoprazole Sodium 40 Mg/10 Ml Vial IVPUSH 01/14/24 12:06 40 mg ONCE ONE Administration Medical Decision Making Medical Decision Making [facility] Narrative: 58 year old male with pmhx significant for alcohol use disorder, polysubstance use disorder, HTN, hx of PE on Eliquis presents to the ED today via EMS for evaluation of nausea and vomiting since 0230 this morning. Patient hypertensive to 179/98, vitals otherwise WNL. Afebrile. Abdomen soft, tender to palpation of the epigastric region with guarding. No rebound tenderness. Normoactive bowel sounds x4. No abdomenal wall ecchymosis.PERRLA. No tremors, asterixis or tongue fasciculations noted. AOX3. Differential diagnosis includes pancreatitis, gastritis, esophagitis, acute upper GI bleed Plan for labs, ekg, imaging, and re-evaluation. Differential Diagnosis Differential Diagnoses: The differential diagnosis associated with the presentation includes As above Admission/Observation Consideration of admission/observation: Escalation of care including admission/observation considered Patient to be admitted to medicine for severe esophagitis requiring IV PPI. Consult Healthcare Provider Management of the patient was discussed with: Hospitalist (Dr. Bergeron) and Principal Consulting Engineer (Dr. Carl (GI)) Lab Data [facility] Lab Attestation statement: I reviewed the patient's lab results. As above 01/14/24 11:41 01/14/24 07:10 Labs: Lab Results 01/14/24 01/14/24 01/14/24 Range/Units 07:10 08:42 10:39 WBC 8.2 (4.8-10.8) X10*3/uL RBC 3.85 L (4.60-5.80) X10*6/uL Hgb 10.5 L (14.0-18.0) g/dl Hct 31.3 L (42.0-52.0) % MCV 81.3 (80.0-98.0) fL MCH 27.3 (27.0-33.0) pg MCHC 33.5 (31.0-36.0) g/dl RDW 14.9 (11.0-16.0) % Plt Count 353 (160-400) X10*3/uL MPV 9.4 (9.4-12.4) fL Immature Gran % (Auto) 0.7 H (0.0-0.4) % Neut % (Auto) 77.7 H (45-73) % Lymph % (Auto) 9.7 L (20-40) % Loving % (Auto) 11.3 H (2-11) % Eos % (Auto) 0.1 (0-4) % Baso % (Auto) 0.5 (0-2) % Lymph # (Auto) 0.8 L (1.2-4.9) X10*3/uL Loving # (Auto) 0.9 (0.1-1.2) X10*3/uL Eos # (Auto) 0.0 (0.0-0.4) X10*3/uL Baso # (Auto) 0.0 (0.0-0.2) X10*3/uL Abs Immat Gran (auto) 0.06 H (0.00-0.03) X10*3/uL Absolute Neuts (auto) 6.4 (2.0-8.3) x10*3/uL Absolute Nucleated RBC 0.000 (0.0-0.012) X10*3/uL Nucleated RBC % (auto) 0.0 (0.0-0.2) /100WBC PT 12.5 (11.1-13.3) SEC INR 1.0 (0.9-1.1) APTT 29.8 D (26.0-36.8) SEC Sodium 136 (135-145) mmol/L Potassium 3.4 (3.3-5.1) mmol/L Chloride 83 L (96-108) mmol/L Carbon Dioxide 38 H (22-29) mmol/L Anion Gap 18 (12-20) BUN 35 H (9-16) mg/dL Creatinine 1.16 (0.5-1.4) mg/dL Estim Creat Clear Calc 66.3 Estimated GFR > 60 Random Glucose 126 H (60-115) mg/dL Calcium 9.9 (8.4-10.2) mg/dL Magnesium 2.2 (1.6-2.6) mg/dL Total Bilirubin 0.2 (0.0-1.0) mg/dL AST 35 (5-37) U/L ALT 20 (0-40) U/L Alkaline Phosphatase 115 (39-117) U/L Troponin I High Sens 6.9 7.9 (<3.5-35.0) ng/L Total Protein 7.7 (6.5-8.0) g/dL Albumin 4.3 (3.5-5.0) g/dL Urine Opiates Screen POSITIVE H (Not Detect) Ur Buprenorphine Scrn Not Detected (Not Detect) ng/mL Ur Oxycodone Screen Not Detected (Not Detect) ng/mL Urine Methadone Screen Not Detected (Not Detect) ng/mL Urine Fentanyl Screen POSITIVE H (Not Detect) Ur Barbiturates Screen POSITIVE H (Not Detect) Ur Phencyclidine Scrn Not Detected (Not Detect) Ur Amphetamines Screen Not Detected (Not Detect) U Benzodiazepines Scrn POSITIVE H (Not Detect) Urine Cocaine Screen POSITIVE H (Not Detect) U Marijuana (THC) Screen Not Detected (Not Detect) Ethyl Alcohol < 10 mg/dL 01/14/24 01/14/24 Range/Units 11:20 11:41 WBC 7.9 (4.8-10.8) X10*3/uL RBC 3.55 L (4.60-5.80) X10*6/uL Hgb 9.7 L (14.0-18.0) g/dl Hct 29.5 L (42.0-52.0) % MCV 83.1 (80.0-98.0) fL MCH 27.3 (27.0-33.0) pg MCHC 32.9 (31.0-36.0) g/dl RDW 14.8 (11.0-16.0) % Plt Count 312 (160-400) X10*3/uL MPV 9.4 (9.4-12.4) fL Immature Gran % (Auto) 0.5 H (0.0-0.4) % Neut % (Auto) 69.5 (45-73) % Lymph % (Auto) 16.9 L (20-40) % Loving % (Auto) 12.3 H (2-11) % Eos % (Auto) 0.3 (0-4) % Baso % (Auto) 0.5 (0-2) % Lymph # (Auto) 1.3 (1.2-4.9) X10*3/uL Loving # (Auto) 1.0 (0.1-1.2) X10*3/uL Eos # (Auto) 0.0 (0.0-0.4) X10*3/uL Baso # (Auto) 0.0 (0.0-0.2) X10*3/uL Abs Immat Gran (auto) 0.04 H (0.00-0.03) X10*3/uL Absolute Neuts (auto) 5.5 (2.0-8.3) x10*3/uL Absolute Nucleated RBC 0.000 (0.0-0.012) X10*3/uL Nucleated RBC % (auto) 0.0 (0.0-0.2) /100WBC PT (11.1-13.3) SEC INR (0.9-1.1) APTT (26.0-36.8) SEC Sodium (135-145) mmol/L Potassium (3.3-5.1) mmol/L Chloride (96-108) mmol/L Carbon Dioxide (22-29) mmol/L Anion Gap (12-20) BUN (9-16) mg/dL Creatinine (0.5-1.4) mg/dL Estim Creat Clear Calc Estimated GFR Random Glucose (60-115) mg/dL Calcium (8.4-10.2) mg/dL Magnesium (1.6-2.6) mg/dL Total Bilirubin (0.0-1.0) mg/dL AST (5-37) U/L ALT (0-40) U/L Alkaline Phosphatase (39-117) U/L Troponin I High Sens 7.9 (<3.5-35.0) ng/L Total Protein (6.5-8.0) g/dL Albumin (3.5-5.0) g/dL Urine Opiates Screen (Not Detect) Ur Buprenorphine Scrn (Not Detect) ng/mL Ur Oxycodone Screen (Not Detect) ng/mL Urine Methadone Screen (Not Detect) ng/mL Urine Fentanyl Screen (Not Detect) Ur Barbiturates Screen (Not Detect) Ur Phencyclidine Scrn (Not Detect) Ur Amphetamines Screen (Not Detect) U Benzodiazepines Scrn (Not Detect) Urine Cocaine Screen (Not Detect) U Marijuana (THC) Screen (Not Detect) Ethyl Alcohol mg/dL Independent Interpretation I performed an independent interpretation of an: EKG and CT Scan Interpretation: EKG showing sinus rhythm with occasional PVCs with a rate of 85 beats per minute, QT 402, QTC 478, no acute ischemic changes or ST elevations. CT abdomen/pelvis with and without contrast showing hyperdensities within the esophageal wall, agree with radiologist's interpretation. Radiology Impression Discussion of test interpretation with radiology: I have reviewed the radiologist's reading. Radiologist Impression: EXAMINATION: CT ABDOMEN AND PELVIS WITHOUT AND WITH CONTRAST CLINICAL INFORMATION: Hematemesis. COMPARISON: 12/24/2023 TECHNIQUE: Axial images through the abdomen and pelvis without IV contrast followed by two-phase imaging following 80 mL Omnipaque 350 IV contrast. Sagittal and coronal reconstructions on the technologist workstation were performed. This CT examination was performed using dose optimization techniques as appropriate, variously including the following: *Automated exposure control *Adjustment of mA and/or kV according to patient size (this includes techniques or standardized protocols for targeted exams where dose is matched to indication/reason for exam; i.e. extremities or head) *Use of iterative reconstruction technique DLP: 1324 mGy-cm FINDINGS: There are filling defects within the pulmonary arterial vasculature to the right lower lobe. No pleural or pericardial effusion. Postsurgical changes of the right ribs. Marked esophageal wall thickening and submucosal edema. Postcontrast images demonstrate foci of hyper enhancement and hyperdensity within the distal esophageal wall. This could represent small areas of active bleeding. Trace paraesophageal free fluid. No extraluminal air. The liver is normal in size and contour. No no suspicious hepatic lesion. No biliary ductal dilatation. The gallbladder is unremarkable. No dilatation of the main pancreatic duct. The spleen is not enlarged. No adrenal mass. The kidneys are symmetric in size and enhance normally. There are left renal cysts for which no further imaging follow-up is needed. No small bowel obstruction. Appendix is within normal limits. Scattered diverticula of the colon. Duodenal diverticulum. Moderate fecal retention in the colon. No bulky lymphadenopathy. Normal caliber abdominal aorta. Streak artifact from patient's right total hip prosthesis and left hip hardware limits evaluation of the pelvic visceral structures. The urinary bladder is unremarkable. Small fat-containing umbilical hernia. Chronic compression fracture of L1 vertebral body and right iliac crest fracture similar to prior imaging. Stable postsurgical changes to the lumbar spine. No destructive bone lesion. CT/CT gi bleed abd pel wo/w IVcon IMPRESSION: Marked esophageal wall thickening and submucosal edema. Postcontrast images demonstrate few foci of hyperenhancement and hyperdensity within the distal esophageal wall. This could represent small areas of active bleeding. Trace paraesophageal free fluid. No extraluminal air. Possible right lower lobe pulmonary emboli. Findings were reviewed and discussed with MARTHA Roman at 9:50 AM on 01/14/2024. Independent Historian Clinical information obtained from an independent historian. History obtained from or confirmed by: EMS External Record Review External record reviewed: Inpatient record, Office record, Outpatient record, Prior outpatient labs, Prior outpatient radiology, Primary care record and Outside ED record Prescription Management I considered prescription management with: Other (Pantoprazole) Chronic Conditions Patient?s care impacted by: Other (ETOH use disorder, chronic anticoagulation, polysubstance use disorder) Social Determinants Patient?s care significantly limited by Social Determinants of Health including: Alcoholism and drug addiction in family and Other Social Determinant of Health Critical Care Time Critical Care Time Critical Care Time: Yes Total Critical Care Time: 34 Attestation: Critical care time in the amount of 34 minutes has been provided to the patient in terms of direct patient care, frequent reevaluation, consultation with Gastroenterology and hospitalist, review and interpretation of medical data and results, and management of potentially life-threatening conditions. This is all outside of any medical procedures. Discharge Plan Discharge Clinical Impression: Esophagitis Patient Disposition: Admitted As Inpatient Print Language: Algerian
--- NOTE | 2024-01-14 06:51 | MHC.EDTECH ---
Patient BIBA,changed into hospital attire, pt placed on the clinical research monitor,EKG taken per order and signed by provider,vitals taken,call michel in reach,
[2024-01-14 07:15] LABS: MANUAL DIFF FLAG NO
[2024-01-14 07:22] LABS: Basophils Percent Auto 0.5 % (0-2); Eosinophils Percent Auto 0.1 % (0-4); Hematocrit 31.3 % (42.0-52.0); Hemoglobin 10.5 g/dl (14.0-18.0); Imm Gran Abs Auto 0.06 X10*3/uL (0.00-0.03); Imm Gran Pct Auto 0.7 % (0.0-0.4); Lymphocytes Absolute Auto 0.8 X10*3/uL (1.2-4.9); Lymphocytes Percent Auto 9.7 % (20-40); Mean Corpuscular HGB Conc 33.5 g/dl (31.0-36.0); Mean Corpuscular Hemoglobin 27.3 pg (27.0-33.0); Mean Corpuscular Volume 81.3 fL (80.0-98.0); Mean Platelet Volume 9.4 fL (9.4-12.4); Monocytes Absolute Auto 0.9 X10*3/uL (0.1-1.2); Monocytes Percent Auto 11.3 % (2-11); Neutrophils Absolute Auto 6.4 x10*3/uL (2.0-8.3); Neutrophils Percent Auto 77.7 % (45-73); Platelet Count 353 X10*3/uL (160-400); Red Blood Count 3.85 X10*6/uL (4.60-5.80); Red Cell Distribution Width 14.9 % (11.0-16.0); White Blood Count 8.2 X10*3/uL (4.8-10.8)
[2024-01-14 07:25] LABS: Prothrombin Time 12.5 SEC (11.1-13.3)
[2024-01-14 07:28] LABS: Partial Thromboplastin Time 29.8 SEC (26.0-36.8)
[2024-01-14 07:38] LABS: Alanine Aminotransferase 20 U/L (0-40); Albumin Level 4.3 g/dL (3.5-5.0); Alkaline Phosphatase 115 U/L (39-117); Anion Gap 18 (12-20); Aspartate Amino Transferase 35 U/L (5-37); Bilirubin Total 0.2 mg/dL (0.0-1.0); Blood Urea Nitrogen 35 mg/dL (9-16); Calcium 9.9 mg/dL (8.4-10.2); Carbon Dioxide 38 mmol/L (22-29); Chloride 83 mmol/L (96-108); Creatinine Clr Calc Pharmacy 66.3; Estimated Glomerular Filt Rate > 60; Ethanol < 10 mg/dL; Glucose Random 126 mg/dL (60-115); Magnesium 2.2 mg/dL (1.6-2.6); Potassium 3.4 mmol/L (3.3-5.1); Sodium 136 mmol/L (135-145); Total Protein 7.7 g/dL (6.5-8.0)
[2024-01-14] MEDS: Famotidine 20 MG TABLET PO (07:40)
[2024-01-14] MEDS: 0.9 % Sodium Chloride 1,000 ML 999 ML IV (07:40)
[2024-01-14] MEDS: Magnesium Hydrox/Alum Hydrox 30 ML ORAL.SUSP PO (07:40)
[2024-01-14 07:43] LABS: Troponin-I High Sensitivity 6.9 ng/L (<3.5-35.0)
[2024-01-14] MEDS: iohexoL 350 MG/ML 100 ML INFUS..BTL IV (08:37)
[2024-01-14 09:06] LABS: Troponin-I High Sensitivity 7.9 ng/L (<3.5-35.0)
[2024-01-14] MEDS: lisinopriL 20 MG TABLET PO (10:19)
[2024-01-14 10:57] LABS: Amphetamine Screen Urine Not Detected (Not Detect); Barbiturates, Urine POSITIVE (Not Detect); Benzodiazepines Screen Urine POSITIVE (Not Detect); Buprenorphine Scr Not Detected (Not Detect); Cannabinoid Screen Urine Not Detected (Not Detect); Cocaine Screen Urine POSITIVE (Not Detect); Fentanyl, urine POSITIVE (Not Detect); Methadone Screen, Urine Not Detected (Not Detect); Opiate Screen Urine POSITIVE (Not Detect); Oxycodone Screen Urine Not Detected (Not Detect); Phencyclidine Screen Urine Not Detected (Not Detect)
[2024-01-14 11:45] LABS: Troponin-I High Sensitivity 7.9 ng/L (<3.5-35.0)
[2024-01-14 11:52] LABS: Basophils Percent Auto 0.5 % (0-2); Eosinophils Percent Auto 0.3 % (0-4); Hematocrit 29.5 % (42.0-52.0); Hemoglobin 9.7 g/dl (14.0-18.0); Imm Gran Abs Auto 0.04 X10*3/uL (0.00-0.03); Imm Gran Pct Auto 0.5 % (0.0-0.4); Lymphocytes Absolute Auto 1.3 X10*3/uL (1.2-4.9); Lymphocytes Percent Auto 16.9 % (20-40); Mean Corpuscular HGB Conc 32.9 g/dl (31.0-36.0); Mean Corpuscular Hemoglobin 27.3 pg (27.0-33.0); Mean Corpuscular Volume 83.1 fL (80.0-98.0); Mean Platelet Volume 9.4 fL (9.4-12.4); Monocytes Percent Auto 12.3 % (2-11); Neutrophils Absolute Auto 5.5 x10*3/uL (2.0-8.3); Neutrophils Percent Auto 69.5 % (45-73); Platelet Count 312 X10*3/uL (160-400); Red Blood Count 3.55 X10*6/uL (4.60-5.80); Red Cell Distribution Width 14.8 % (11.0-16.0); White Blood Count 7.9 X10*3/uL (4.8-10.8)
[2024-01-14] MEDS: Pantoprazole Sodium 40 MG/10 ML VIAL IVPUSH ×2 (12:38→17:12)
--- NOTE | 2024-01-14 13:08 | PHA.MEDREC ---
Pharmacy Consult ? Medication Reconciliation Pharmacy has completed the medication reconciliation. Spoke to patient to confirm med list . Patient states he is no longer taking Acamprosate 666 mg tid, Fluconizole 200 mg daily, Folic acid 1 mg daily, Hydroxyzine Hcl 25 mg tid, Melatonin 6 mg at bedtime, Sertraline 50 mg daily. Patient says he is on methadone 30 mg daily from the methadone clinic ([facility]) in [place], however he hasn't took any of his medications in 3 days because he was to busy drinking.
--- NOTE | 2024-01-14 15:16 | PM.IMHP ---
History of Present Illness Date of Service: 01/14/24 Attending physician on admission: Javier Bergeron Chief Complaint: Hematemesis Pt is a 58-year-old male with a PMH significant for?alcohol use disorder with history of withdrawal,?HTN, hx of PE on Eliquis, and opiate use disorder on methadone who presents to the ED for evaluation of epigastric pain and hematemesis x4 since early this morning. Patient was recently admitted to the hospital on 12/23-12/28 for similar symptoms where he was treated for alcohol withdrawal and underwent an EGD which found esophageal ulcer, mild antral gastritis, and esophageal candidiasis. The patient reports upon discharge he refrained from alcohol use until 3 days ago he started drinking again. Does not specify exactly how much he was drinking only saying that it was ?quite a lot?. Last drink last night at approximately 20:00. Also admits to doing cocaine. This morning patient reports experiencing severe epigastric pain and bright red bloody hematemesis times 3-4 episodes. States has been regularly taking his Eliquis and lisinopril, otherwise noncompliant with his medications including fluconazole for candidiasis. Intermittent sharp, stabbing chest pain. No shortness a breath or difficulty breathing. Patient overall is a rather poor historian, and is unsure exactly when he had his prior PEs other than stating it was ?a few years ago?. Currently denies increase in anxiety. No headache. Denies nausea or vomiting at this time. No diaphoresis. Denies auditory, visual, and tactile hallucinations. 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 In the ED pt was hypertensive up to 190/92, respiratory rate 10, and satting at 96% on RA. Labs were significant for initial H&H of 10.5/31.3 with repeat 4 hours later of 9.7/29.5 (down from 11 0.0/33.8 on 12/31/2023), BUN 35 with and creatinine 1.16. No leukocytosis. No significant electrolyte abnormalities hepatic function WNL. Serial troponins flat at 6.9, 7.9, and 7.9. Tox screen positive for opiates, fentanyl, barbiturates, benzos, and cocaine. Ethyl alcohol levels undetectable. GI bleeding CT of abdomen/pelvis showed marked esophageal wall thickening and submucosal edema, as well as new foci of hyperenhancement and hyperdensity within the distal esophageal wall that could represent small areas of active bleeding. Found trace paraesophageal free fluid but no extraluminal air, and showed possible right lower lobe pulmonary emboli. EKG demonstrated sinus rhythm with occasional PVCs, but no evidence of significant ST elevations or depressions. Pt was treated with IVF, Maalox, famotidine, lisinopril, and Protonix. Pt will be admitted to the hospital for treatment and further evaluation of intractable abdominal pain and hematemesis in the setting of likely alcoholic gastritis. Review of Systems Review of Systems: Hematemesis with bright red blood Epigastric pain Intermittent sharp, stabbing chest pain Denies shortness of breath or difficulty breathing No diaphoresis Denies auditory, visual, or tactile hallucinations [facility] Medical History Substance abuse EtOH dependence Hypertension Family History Father Stomach cancer Surgical History Hx of endoscopy History of total right hip replacement Social History Household Members: None Housing: Homeless Do you presently have visiting nurse or other home services: No Alcohol intake: current Alcohol intake frequency: 3 or more drinks per day Alcohol type: hard liquor Comment: 1:1 Patient Tobacco Use Status: Current someday Tobacco user Tobacco use type: Cigarette Cigarettes Per Day: 5 Years Smoked: 20 Smoked in Last 30 Days: No e-Cigarette/Vaping Use: Never Used Second Hand Smoke Exposure: Yes Substance Use Type: Heroin Advance Directives: No Do you have a plan to hurt others: No Plan service: No Current occupational status: unemployed Sexual orientation: Straight/Heterosexual Meds Allergies Allergy/AdvReac Type Severity Reaction Status Date / Time bee pollen [BEE STINGS] Allergy Severe SWELLING Verified 01/14/24 06:46 Home Medications ?Medication ?Instructions ?Recorded ?Confirmed ?Last Taken ?Type methadone 10 mg/mL oral 27 mg PO DAILY 12/26/23 12/26/23 12/16/23 History concentrate (Methadose) Physical Exam Vital Signs and Narrative: Vital Signs: Last Vital Signs Temp 98.1 F 07/05/24 09:31 Pulse 78 01/14/24 13:58 Resp 10 L 01/14/24 13:58 BP 136/78 01/14/24 13:58 Pulse Ox 96 01/14/24 13:58 O2 Del Method Room Air 01/14/24 13:58 BMI result Body Mass Index 23.7 General: AOx3, no acute distress Resp: CTA bilaterally CVS: S1, S2, RRR GI: +BS, no distention, with epigastric tenderness Skin: Warm, dry Neuro: Cranial nerves II-XII grossly intact bilaterally. Motor grossly intact bilaterally. No upper extremity tremors noted Extremities: No edema Psych: Appropriate affect Results Labs 01/14/24 11:41 01/14/24 07:10 Labs: Laboratory Results - last 24 hr 01/14/24 01/14/24 01/14/24 07:10 08:42 10:39 MCV 81.3 MCH 27.3 MCHC 33.5 RDW 14.9 Plt Count 353 MPV 9.4 Immature Gran % (Auto) 0.7 H Neut % (Auto) 77.7 H Lymph % (Auto) 9.7 L Pacific % (Auto) 11.3 H Eos % (Auto) 0.1 Baso % (Auto) 0.5 Lymph # (Auto) 0.8 L [place] # (Auto) 0.9 Eos # (Auto) 0.0 Baso # (Auto) 0.0 Abs Immat Gran (auto) 0.06 H Absolute Neuts (auto) 6.4 Absolute Nucleated RBC 0.000 Nucleated RBC % (auto) 0.0 PT 12.5 INR 1.0 APTT 29.8 D Anion Gap 18 Estim Creat Clear Calc 66.3 Estimated GFR > 60 Random Glucose 126 H Calcium 9.9 Magnesium 2.2 Total Bilirubin 0.2 AST 35 ALT 20 Alkaline Phosphatase 115 Troponin I High Sens 6.9 7.9 Total Protein 7.7 Albumin 4.3 Urine Opiates Screen POSITIVE H Ur Buprenorphine Scrn Not Detected Ur Oxycodone Screen Not Detected Urine Methadone Screen Not Detected Urine Fentanyl Screen POSITIVE H Ur Barbiturates Screen POSITIVE H Ur Phencyclidine Scrn Not Detected Ur Amphetamines Screen Not Detected U Benzodiazepines Scrn POSITIVE H Urine Cocaine Screen POSITIVE H U Marijuana (THC) Screen Not Detected Ethyl Alcohol < 10 01/14/24 01/14/24 11:20 11:41 MCV 83.1 MCH 27.3 MCHC 32.9 RDW 14.8 Plt Count 312 MPV 9.4 Immature Gran % (Auto) 0.5 H Neut % (Auto) 69.5 Lymph % (Auto) 16.9 L Pacific % (Auto) 12.3 H Eos % (Auto) 0.3 Baso % (Auto) 0.5 Lymph # (Auto) 1.3 Pacific # (Auto) 1.0 Eos # (Auto) 0.0 Baso # (Auto) 0.0 Abs Immat Gran (auto) 0.04 H Absolute Neuts (auto) 5.5 Absolute Nucleated RBC 0.000 Nucleated RBC % (auto) 0.0 PT INR APTT Anion Gap Estim Creat Clear Calc Estimated GFR Random Glucose Calcium Magnesium Total Bilirubin AST ALT Alkaline Phosphatase Troponin I High Sens 7.9 Total Protein Albumin Urine Opiates Screen Ur Buprenorphine Scrn Ur Oxycodone Screen Urine Methadone Screen Urine Fentanyl Screen Ur Barbiturates Screen Ur Phencyclidine Scrn Ur Amphetamines Screen U Benzodiazepines Scrn Urine Cocaine Screen U Marijuana (THC) Screen Ethyl Alcohol Imaging Radiologist's Impressions: Impressions Abdomen/Pelvis CT 01/14/24 08:39 IMPRESSION: Marked esophageal wall thickening and submucosal edema. Postcontrast images demonstrate few foci of hyperenhancement and hyperdensity within the distal esophageal wall. This could represent small areas of active bleeding. Trace paraesophageal free fluid. No extraluminal air. Possible right lower lobe pulmonary emboli. Findings were reviewed and discussed with MARTHA Roman at 9:50 AM on 01/14/2024. Assessment and Plan (1) Hematemesis: Qualifiers: Nausea presence: unspecified Qualified Code(s): K92.0 - Hematemesis Status: Resolved Plan Pt is a 58-year-old male with a PMH significant for?alcohol use disorder with history of withdrawal,?HTN, hx of PE on Eliquis, and opiate use disorder on methadone who presents to the ED for evaluation of epigastric pain and hematemesis x4 since early this morning. Pt will be admitted to the hospital for treatment and further evaluation of intractable abdominal pain and hematemesis in the setting of likely alcoholic gastritis. Hematemesis In the setting of alcohol use disorder and alcoholic gastritis Pt with epigastric pain and bright red blood hematemesis x3-4 since this morning Patient has been noncompliant with PPI Will treat with Protonix IV b.i.d. GI consult No current plan for repeat EGD Analgesics for pain management Follow CBC Alcohol use disorder Has been drinking heavily for past 3 days Will start on phenobarb protocol Monitor on CIWA Thiamine, folic acid, multivitamin, Protonix Addiction medicine consult Monitor on telemetry Left femur fracture Ortho consulted at last admission Recommended partial weight-bearing with walker Patient reports walking with cane Hx of PE Hold Eliquis due to UGIB CT of abdomen and pelvis with possible right lower lung PE, likely chronic Opioid use disorder Continue methadone once dose verified HTN Continue lisinopril Full Code Attending:?Dr. Bergeron DVT Prophylaxis: Pneumatic compression due to possible upper GI bleed Pt will require a hospitalization of at least two nights for treatment of?intractable abdominal pain hematemesis in the setting of alcoholic gastritis. Given patient's recent presentation with similar symptoms and medication noncompliance, patient will require hospitalization for treatment with IV Protonix, close monitoring of labs including CBC and electrolytes, and specialist consultation with GI. Patient will also be treated with phenobarb protocol for likely impending withdrawal. Quality Stroke Does the patient have a stroke diagnosis?: No VTE Prior VTE?: No VTE Risk Level:: Medical - moderate - high VTE Device Contraindication: N/A - Device Ordered VTE Drug Contraindication: Treatment Not Indicated
--- NOTE | 2024-01-14 15:18 | P.CNGI_ITS ---
History of Present Illness Data of Consult Service Date: 01/14/24 Requesting physician: Eva Roman Primary Care Provider: Maximo Morfin MD [facility] Reason for consult: UGI bleeding 58 YM with alcohol use disorder, opioid use disorder on methadone, HTN, hx of PE on Eliquis seen at [facility] [place] ED on 01/14/24 via EMS for evaluation of nausea and vomiting since 0230 this morning. Pt admited to drinking alcohol daily for the past 3 weeks (at least 3 quarts of vodka and fireball over the last 2 days). Pt states he noted recurrent abdominal pain when he started drinking again. His last drink was around 8 pm last night and pt admitted to using cocaine. Pt noted epigastric pain and bright red blood with vomiting this morning and stated it's my gastritis . Last episode of vomiting was around 6:30 am when he was picked up by EMS He denies being followed by a GI doctor. States he does not take any medications for this. On arrival, EMS reports administering 4 of zofran en route. Patient denied recent falls or head strikes, headache, dizziness, tremors, anxiety, chest pain, palpitations, SOB, diarrhea, flank pain, dysuria, hematuria. Pt admits to wt loss of 10 lbs since he has not been eating and just drinking. 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 Pt was hospitalized at [facility] [place] 12/23 to 12/31/23 with abdominal pain and coffee-ground emesis. 12/24 EGD as noted below. H&H dropped however this was above transfusion threshold. Pt was placed on fluconazole 200 mg p.o. daily times 14 days and started on Prilosec 40 mg twice daily and discharged home. Plan for repeat EGD/colonoscopy in 3-4 months. Regarding ETOH use disorder, patient was treated with phenobarb protocol, thiamine and folic acid. Currently active with AA. He was advised to resume Eliquis on 12/31/2023 PAST GI HISTORY BY REVIEW OF MEDICAL RECORDS: 12/25/23 EGD SHOWED: ESOPHAGUS: Circumferential ulcer seen from 30 to 40 cms with thick yellow exudate. A 15 mm nodule/polyp at 39 cms - (hyperplastic changes on biopsies obtained during last EGD). Esophageal brushings were obtained to check for esophageal candidiasis. STOMACH: Mild antral gastritis - gastric biopsies were negative for Helicobacter pylori No blood or potential source for UGI bleeding noted on EGD. Recent episode of hematemesia likely from severe erosive esophagitis Plan: 1. Follow CBC daily 2. Switch to PO PPI twice daily and continue indefinitely 3. Fluconazole 400 mg IV today and 400 mg PO daily for 14 days for esophageal candidiasis 4. Repeat EGD with same day colonoscopy in 3 - 4 months as outpatient [facility] Past Medical History Medical History Substance abuse EtOH dependence Hypertension Family History Family History Father Stomach cancer Surgical History Surgical History Hx of endoscopy History of total right hip replacement Social History Social History Household Members: Family Housing: House Do you presently have visiting nurse or other home services: No Alcohol intake: current Alcohol intake frequency: 3 or more drinks per day Alcohol type: hard liquor Comment: 1:1 Patient Tobacco Use Status: Former Tobacco user Tobacco use type: Cigarette Cigarettes Per Day: 5 Years Smoked: 20 Smoked in Last 30 Days: Yes e-Cigarette/Vaping Use: Former Use Second Hand Smoke Exposure: Yes Use of substances other than those prescribed or required for medical reasons: Yes Substance Use Type: Heroin Last Used Substance: Just Prior to Admission Advance Directives: No Advance Directives Information Provided: Yes Do you have a plan to hurt others: No Plan service: No Current occupational status: unemployed Sexual orientation: Straight/Heterosexual Meds Allergies Allergy/AdvReac Type Severity Reaction Status Date / Time bee pollen [BEE STINGS] Allergy Severe SWELLING Verified 01/18/24 14:28 Physical Exam 2 Vital Signs: Vital Signs: Last Vital Signs Temp 98.1 F 01/14/24 09:31 Pulse 78 01/14/24 13:58 Resp 10 L 01/14/24 13:58 BP 136/78 01/14/24 13:58 Pulse Ox 96 01/14/24 13:58 O2 Del Method Room Air 01/14/24 13:58 BMI result Body Mass Index 23.7 Const: General: in distress (complaining of abdominal pain and asking for pain medications) Nutritional Appearance: average body habitus O rientation/consciousness: patient oriented x3 Limitations: no limitations HEENT: Head: Yes normal to inspection Ears: hearing grossly normal bilaterally Eyes: Sclerae: sclerae normal Pupils: Equal, round and reactive pupils present Neck: Neck: Yes normal visual inspection Chest: Chest palpation & inspection: normal inspection of the chest Resp: Effort & Inspection: normal respiratory effort Auscultation: clear to auscultation bilaterally Cardio: Palpation: normal PMI Rate: regular rate Rhythm: regular rhythm Heart sounds: S1 normal heart sound present, S2 normal heart sound present and no murmurs GI: Palpation (GI): Soft to palpation, Tenderness to palpation present (GI) (epigastric tenderness without rebound) and No hepatosplenomegaly present A uscultation: normal bowel sounds Rectal Exam - Male: Yes deferred Skin: General skin exam: no rashes or lesions noted Neuro: General: patient oriented x3, gait normal and moves all extremities Cranial nerves: Yes Equal, round and reactive pupils present Psych: Appearance: grossly normal Mental Status: mental status grossly normal Results Labs 01/17/24 06:14 01/16/24 06:06 Labs: Short CBC 01/14/24 01/14/24 Range/Units 07:10 11:41 WBC 8.2 7.9 (4.8-10.8) X10*3/uL Hgb 10.5 L 9.7 L (14.0-18.0) g/dl Hct 31.3 L 29.5 L (42.0-52.0) % Plt Count 353 312 (160-400) X10*3/uL BMP 01/14/24 07:10 Sodium 136 Potassium 3.4 Chloride 83 L Carbon Dioxide 38 H BUN 35 H Creatinine 1.16 Calcium 9.9 Liver Function 01/14/24 Range/Units 07:10 Total Bilirubin 0.2 (0.0-1.0) mg/dL AST 35 (5-37) U/L ALT 20 (0-40) U/L Alkaline Phosphatase 115 (39-117) U/L Albumin 4.3 (3.5-5.0) g/dL Assessment and Plan (1) Intractable nausea and vomiting: Status: Resolved (2) UGI bleed: Status: Resolved (3) Esophagitis: Status: Acute (4) Abdominal pain: Status: Resolved Plan 58 YM with a history of alcohol use disorder and hypertension (On Eliquis for a hx of PE) came to [facility] [place] ED on 01/14/24 via EMS with nausea, vomiting and hematemesis Patient complained of abd pain, nausea, vomiting with hematemesis at 2:30 am and none since arrival in the ER. Pt is on Eliquis for PE. Labs showed H&H of 10.5 & 31.3 (decreased from 11 & 33.8 on 12/31/23) LFTS were normal He did not take his daily medications including Prilosec and lisinopril. UGI bleeding likely due to erosive esophagitis (noted on recent EGD). RECOMMENDATIONS: 1. Agree with IV PPI and hold Eliquis 2. Check lipase - order placed. 2. OK to start a clear liquid diet tonight if no further episodes of vomiting or hematemesis. 3. Monitor CBC daily. 4. Since pt had recent EGD which showed a circumferential esophageal ulcer and no other source for bleeding and pt has been non-compliant with PPI treatment, repeat EGD is unlikely to change pt's management. Procedures Date of Service Date of Service: 02/01/24
[2024-01-14] MEDS: Folic Acid 1 MG TABLET PO (17:12)
[2024-01-14] MEDS: Thiamine HCL 100 MG TABLET PO (17:12)
[2024-01-14] MEDS: PHENobarbitaL sodium 130 MG/ML IM ONCE 220 MG IM (17:13)
[2024-01-14] MEDS: Morphine Sulfate 4 MG/ML CARTRIDGE IM ×2 (17:23→20:42)
[2024-01-14] MEDS: Calcium Carbonate 750 MG TAB.CHEW PO (20:16)
[2024-01-14 20:21] LABS: Lipase 12 U/L (8-78)
[2024-01-14] MEDS: PHENobarbitaL sodium 130 MG/ML VIAL IM Q3Hx2 165 MG IM (20:42)
[2024-01-15] VITALS (12 sets, daily range): BP systolic 101–144; BP diastolic 61–83; PULSE 58–88; RESP 16–20; TEMP 36.4–37.2; O2SAT 92–96
[2024-01-15] MEDS: PHENobarbitaL sodium 130 MG/ML VIAL IM Q3Hx2 165 MG IM (00:22)
[2024-01-15] MEDS: 0.9 % Sodium Chloride Flush 3 ML SYRINGE IVFLUSH ×4 (00:27→22:18)
[2024-01-15] MEDS: Morphine Sulfate 4 MG/ML CARTRIDGE IVPUSH ×4 (01:03→15:42)
[2024-01-15] MEDS: Pantoprazole Sodium 40 MG/10 ML VIAL IVPUSH ×2 (05:42→15:41)
[2024-01-15] MEDS: ondansetron HCL 4 MG/2 ML VIAL IVPUSH (05:42)
[2024-01-15] MEDS: Calcium Carbonate 750 MG TAB.CHEW PO ×2 (05:52→22:17)
[2024-01-15 06:51] LABS: Hematocrit 29.6 % (42.0-52.0); Hemoglobin 9.6 g/dl (14.0-18.0); Mean Corpuscular HGB Conc 32.4 g/dl (31.0-36.0); Mean Corpuscular Hemoglobin 27.1 pg (27.0-33.0); Mean Corpuscular Volume 83.6 fL (80.0-98.0); Mean Platelet Volume 9.7 fL (9.4-12.4); Platelet Count 302 X10*3/uL (160-400); Red Blood Count 3.54 X10*6/uL (4.60-5.80); Red Cell Distribution Width 14.9 % (11.0-16.0); White Blood Count 5.5 X10*3/uL (4.8-10.8)
[2024-01-15 07:00] LABS: Anion Gap 14 (12-20); Blood Urea Nitrogen 19 mg/dL (9-16); Calcium 8.9 mg/dL (8.4-10.2); Carbon Dioxide 33 mmol/L (22-29); Chloride 93 mmol/L (96-108); Creatinine Clr Calc Pharmacy 98.6; Estimated Glomerular Filt Rate > 60; Glucose Random 88 mg/dL (60-115); Potassium 3.2 mmol/L (3.3-5.1); Sodium 137 mmol/L (135-145)
[2024-01-15 07:29] LABS: Folate 14.3 ng/mL (> or = 4.0); Vitamin B12 890 pg/mL (200-900)
[2024-01-15 08:40] LABS: Magnesium 2.2 mg/dL (1.6-2.6)
[2024-01-15] MEDS: methADONE HCl 20 MG/2 ML ORAL.CONC 30 MG PO (10:43)
[2024-01-15] MEDS: Sucralfate Oral Suspension 1 GM/10 ML ORAL.SUSP PO ×3 (10:43→22:17)
[2024-01-15] MEDS: Potassium Chloride ER 20 MEQ TAB.ER.PRT 40 MEQ PO (10:43)
[2024-01-15] MEDS: Folic Acid 1 MG TABLET PO (10:43)
[2024-01-15] MEDS: PHENobarbitaL 15 MG TABLET 45 MG PO ×2 (10:44→22:17)
[2024-01-15] MEDS: Thiamine HCL 100 MG TABLET PO (10:44)
--- NOTE | 2024-01-15 11:17 | HO.PM.IMPN ---
Subjective Subjective Date of Service: 01/15/24 Interval History: c/o severe epigastric pain anxious no further hematemesis Review of Systems Review of Systems: Yes all other systems are reviewed and are negative Physical Exam Vital Signs: Vital Signs: Last Vital Signs Temp 97.5 F 01/15/24 07:56 Pulse 71 01/15/24 07:56 Resp 18 01/15/24 07:56 BP 129/67 01/15/24 07:56 Pulse Ox 94 01/15/24 07:56 O2 Del Method Room Air 01/15/24 07:56 BMI result Body Mass Index 23.7 Gen: anxious HEENT: sclera anicteric, moist mucus membranes Neck: supple Lungs: clear to auscultation bilaterally Heart: regular rate and rhythm, no murmurs Abd: soft, epigastric tenderness,non-distended Ext: no edema Skin: warm/well-perfused Neuro: alert and oriented x3, no focal findings Psych: anxious Objective Data Active Medications Acetaminophen (Acetaminophen 325 Mg Tablet) 650 mg PO Q6H PRN PRN Reason: Pain, Mild (Pain Scale 1-3), fever or headache Benzonatate (Benzonatate 100 Mg Capsule) 100 mg PO TID PRN PRN Reason: Cough Calcium Carbonate (Calcium Carbonate 750 Mg Tab.Chew) 750 mg PO Q4H PRN PRN Reason: Heartburn Last Admin: 01/15/24 05:52 Dose: 750 mg Documented By: KENYATTA Folic Acid (Folic Acid 1 Mg Tablet) 1 mg PO DAILY [facility] Stop: 01/17/24 16:39 Last Admin: 01/15/24 10:43 Dose: 1 mg Documented By: CÉSAR Lisinopril (Lisinopril 10 Mg Tablet) 10 mg PO DAILY [facility]; Protocol Last Admin: 01/15/24 10:59 Dose: Not Given Documented By: CÉSAR Non-Admin Reason: Held per Magnesium Hydroxide (Milk Of Magnesia 30 Ml Oral.Susp) 30 ml PO DAILY PRN PRN Reason: Constipation Melatonin (Melatonin 3 Mg Tablet) 6 mg PO BEDTIME PRN PRN Reason: Insomnia Morphine Sulfate (Morphine Sulfate 4 Mg/Ml Cartridge) 4 mg IVPUSH Q4H PRN; Protocol PRN Reason: Pain, Severe (Pain Scale 7-10) Last Admin: 01/15/24 10:40 Dose: 4 mg Documented By: CÉSAR Ondansetron HCl (Ondansetron Hcl 4 Mg/2 Ml Vial) 4 mg IVPUSH Q8H PRN PRN Reason: Nausea and Vomiting Last Admin: 01/15/24 05:42 Dose: 4 mg Documented By: KENYATTA Pantoprazole Sodium (Pantoprazole Sodium 40 Mg/10 Ml Vial) 40 mg IVPUSH BID@0630,1630 [facility] Last Admin: 01/15/24 05:42 Dose: 40 mg Documented By: KENYATTA Pharmacy Consult (Consult Rx Etoh Phenob Im/Po) 1 each MISCELLANE ONCE PRN; Protocol PRN Reason: Consult order Phenobarbital (Phenobarbital 15 Mg Tablet) 45 mg PO BID [facility]; Protocol Stop: 01/16/24 21:01 Last Admin: 01/15/24 10:44 Dose: 45 mg Documented By: CÉSAR Phenobarbital (Phenobarbital 30 Mg Tablet) 30 mg PO BID [facility]; Protocol Stop: 01/18/24 21:01 Phenobarbital (Phenobarbital 30 Mg Tablet) 30 mg PO DAILY [facility]; Protocol Stop: 01/20/24 09:01 Sodium Chloride (0.9 % Sodium Chloride Flush 3 Ml Syringe) 3 ml IVFLUSH QSHIFT [facility] Last Admin: 01/15/24 10:40 Dose: 3 ml Documented By: CÉSAR Sucralfate (Sucralfate Oral Suspension 1 Gm/10 Ml Oral.Susp) 1 gm PO QIDACHS [facility] Last Admin: 01/15/24 10:43 Dose: 1 gm Documented By: CÉSAR Thiamine HCl (Thiamine Hcl 100 Mg Tablet) 100 mg PO DAILY [facility] Stop: 01/17/24 16:39 Last Admin: 01/15/24 10:44 Dose: 100 mg Documented By: CÉSAR Labs 01/15/24 06:23 01/15/24 06:23 Labs: Laboratory Results - last 24 hr 01/14/24 01/14/24 01/15/24 11:20 11:41 06:23 MCV 83.1 83.6 MCH 27.3 27.1 MCHC 32.9 32.4 RDW 14.8 14.9 Plt Count 312 302 MPV 9.4 9.7 Immature Gran % (Auto) 0.5 H Neut % (Auto) 69.5 Lymph % (Auto) 16.9 L [place] % (Auto) 12.3 H Eos % (Auto) 0.3 Baso % (Auto) 0.5 Lymph # (Auto) 1.3 [place] # (Auto) 1.0 Eos # (Auto) 0.0 Baso # (Auto) 0.0 Abs Immat Gran (auto) 0.04 H Absolute Neuts (auto) 5.5 Absolute Nucleated RBC 0.000 0.000 Nucleated RBC % (auto) 0.0 0.0 Anion Gap 14 Estim Creat Clear Calc 98.6 Estimated GFR > 60 Random Glucose 88 Calcium 8.9 D Magnesium 2.2 Troponin I High Sens 7.9 Lipase 12 Vitamin B12 890 Folate 14.3 Assessment and Plan (1) UGI bleed: Status: Acute Plan d2 58yo M with AUD with hx withdrawal, OUD on methadone, HTN, remote hx PE on apixaban presenting with epigastric pain + 4 episodes of hematemesis recent admission 12/23-12/29/23 for similar symptoms, treated then for EtOH withdrawal + underwent EGD showing esophageal ulcer, mild antral gastritis + esophageal candidiaiss hematemesis - likely EtOH gastritis/esophagitis. GI consulted, give IV PPI, clear liquids. Add sucralfate hx PE - hold apixaban due to UGIB chronic anemia - due to EtOH; H+H stable AUD - phenobarbital taper, thiamine, folate, multivitamin - Addiction Medicine consult cocaine abuse - Addiciton Medicine consult, screen HBV/HCV/HIV OUD - resume home methadone dose L femur fracture sustained 12/22/23 - Ortho consulted last admission, recommended partial WB with walker, non-operative HTN - continue lisinopril VTE ppx - SCDs dispo - eventual home In my clinical judgment, the patient requires continued inpatient hospitalization for the following reasons: IV PPI, inpt EtOH withdrawal tx Total time managing care of this patient today: 35 minutes. Quality Stroke Does the patient have a stroke diagnosis?: No VTE Prior VTE?: No VTE Risk Level:: Medical - moderate - high VTE Device Contraindication: N/A - Device Ordered VTE Drug Contraindication: Treatment Not Indicated
[2024-01-15] MEDS: HYDROmorphone HCl 1 MG/ML SYRINGE IVPUSH ×3 (12:29→22:17)
--- NOTE | 2024-01-15 14:09 | MHC.CM.PN ---
Pt. said he does not have a home, HCP is on file, his brother, Ashish, this was confirmed with pt. He uses a cane. He was recently DC's from this hosp., on 12/29/23. Pt said he wants to get help for his alcoholism. DCP: TBD. Cm to follow for DC needs.
[2024-01-15] MEDS: Acetaminophen 325 MG TABLET 650 MG PO (15:43)
[2024-01-15] MEDS: Melatonin 3 MG TABLET 6 MG PO (22:18)
[2024-01-15] MEDS: Benzonatate 100 MG CAPSULE PO (22:20)
[2024-01-16] VITALS (8 sets, daily range): BP systolic 101–150; BP diastolic 60–80; PULSE 62–70; RESP 17–20; TEMP 36.6–37.4; O2SAT 96–98
[2024-01-16] MEDS: HYDROmorphone HCl 1 MG/ML SYRINGE IVPUSH ×4 (06:04→21:42)
[2024-01-16] MEDS: Sucralfate Oral Suspension 1 GM/10 ML ORAL.SUSP PO ×4 (06:04→21:38)
[2024-01-16] MEDS: Pantoprazole Sodium 40 MG/10 ML VIAL IVPUSH ×2 (06:07→16:38)
[2024-01-16 06:31] LABS: Hematocrit 30.9 % (42.0-52.0); Hemoglobin 10.2 g/dl (14.0-18.0); Mean Corpuscular Hemoglobin 27.3 pg (27.0-33.0); Mean Corpuscular Volume 82.8 fL (80.0-98.0); Mean Platelet Volume 9.4 fL (9.4-12.4); Platelet Count 314 X10*3/uL (160-400); Red Blood Count 3.73 X10*6/uL (4.60-5.80); Red Cell Distribution Width 14.6 % (11.0-16.0); White Blood Count 5.9 X10*3/uL (4.8-10.8)
[2024-01-16 06:35] LABS: Anion Gap 11 (12-20); Blood Urea Nitrogen 12 mg/dL (9-16); Calcium 9.4 mg/dL (8.4-10.2); Carbon Dioxide 32 mmol/L (22-29); Chloride 96 mmol/L (96-108); Creatinine Clr Calc Pharmacy 90.5; Estimated Glomerular Filt Rate > 60; Glucose Random 95 mg/dL (60-115); Sodium 135 mmol/L (135-145)
--- NOTE | 2024-01-16 08:34 | P.PNIM_ITS ---
Subjective Subjective Date of Service: 01/16/24 Interval History: severe epigastric pain, slightly improved no further hematemesis tolerating small sips of water only no tremors Review of Systems Review of Systems: Yes all other systems are reviewed and are negative Physical Exam 2 Vital Signs: Vital Signs: Last Vital Signs Temp 99.1 F 01/16/24 07:40 Pulse 64 01/16/24 07:40 Resp 18 01/16/24 07:40 BP 111/71 01/16/24 07:40 Pulse Ox 96 01/16/24 07:40 O2 Del Method Room Air 01/16/24 07:40 BMI result Body Mass Index 23.7 Gen: in no acute distress HEENT: sclera anicteric, moist mucus membranes Neck: supple Lungs: clear to auscultation bilaterally Heart: regular rate and rhythm, no murmurs Abd: soft, tender epigastrium without rebound, non-distended Ext: no edema Skin: warm/well-perfused Neuro: alert and oriented x3, no focal findings Psych: appropriate affect Objective Data Active Medications Acetaminophen (Acetaminophen 325 Mg Tablet) 650 mg PO Q6H PRN PRN Reason: Pain, Mild (Pain Scale 1-3), fever or headache Last Admin: 01/15/24 15:43 Dose: 650 mg Documented By: CÉSAR Benzonatate (Benzonatate 100 Mg Capsule) 100 mg PO TID PRN PRN Reason: Cough Last Admin: 01/15/24 22:20 Dose: 100 mg Documented By: KENYATTA Calcium Carbonate (Calcium Carbonate 750 Mg Tab.Chew) 750 mg PO Q4H PRN PRN Reason: Heartburn Last Admin: 01/15/24 22:17 Dose: 750 mg Documented By: KENYATTA Folic Acid (Folic Acid 1 Mg Tablet) 1 mg PO DAILY [facility] Stop: 01/17/24 16:39 Last Admin: 01/15/24 10:43 Dose: 1 mg Documented By: CÉSAR Hydromorphone HCl (Hydromorphone Hcl 1 Mg/Ml Syringe) 1 mg IVPUSH Q4H PRN; Protocol PRN Reason: Pain, Severe (Pain Scale 7-10) Last Admin: 01/16/24 06:04 Dose: 1 mg Documented By: KENYATTA Lisinopril (Lisinopril 10 Mg Tablet) 10 mg PO DAILY [facility]; Protocol Last Admin: 01/15/24 10:59 Dose: Not Given Documented By: CÉSAR Non-Admin Reason: Held per Magnesium Hydroxide (Milk Of Magnesia 30 Ml Oral.Susp) 30 ml PO DAILY PRN PRN Reason: Constipation Melatonin (Melatonin 3 Mg Tablet) 6 mg PO BEDTIME PRN PRN Reason: Insomnia Last Admin: 01/15/24 22:18 Dose: 6 mg Documented By: KENYATTA Ondansetron HCl (Ondansetron Hcl 4 Mg/2 Ml Vial) 4 mg IVPUSH Q8H PRN PRN Reason: Nausea and Vomiting Last Admin: 01/15/24 05:42 Dose: 4 mg Documented By: KENYATTA Pantoprazole Sodium (Pantoprazole Sodium 40 Mg/10 Ml Vial) 40 mg IVPUSH BID@0630,1630 [facility] Last Admin: 01/16/24 06:07 Dose: 40 mg Documented By: KENYATTA Pharmacy Consult (Consult Rx Etoh Phenob Im/Po) 1 each MISCELLANE ONCE PRN; Protocol PRN Reason: Consult order Phenobarbital (Phenobarbital 15 Mg Tablet) 45 mg PO BID [facility]; Protocol Stop: 01/16/24 21:01 Last Admin: 01/15/24 22:17 Dose: 45 mg Documented By: KENYATTA Phenobarbital (Phenobarbital 30 Mg Tablet) 30 mg PO BID [facility]; Protocol Stop: 01/18/24 21:01 Phenobarbital (Phenobarbital 30 Mg Tablet) 30 mg PO DAILY [facility]; Protocol Stop: 01/20/24 09:01 Sodium Chloride (0.9 % Sodium Chloride Flush 3 Ml Syringe) [facility] Last Admin: 01/15/24 22:18 Dose: 3 ml Documented By: KENYATTA Sucralfate (Sucralfate Oral Suspension 1 Gm/10 Ml Oral.Susp) 1 gm PO QIDACHS [facility] Last Admin: 01/16/24 06:04 Dose: 1 gm Documented By: KENYATTA Thiamine HCl (Thiamine Hcl 100 Mg Tablet) 100 mg PO DAILY [facility] Stop: 01/17/24 16:39 Last Admin: 01/15/24 10:44 Dose: 100 mg Documented By: CÉSAR Labs 01/16/24 06:06 01/16/24 06:06 Labs: Laboratory Results - last 24 hr 01/15/24 01/16/24 06:23 06:06 MCV 82.8 MCH 27.3 MCHC 33.0 RDW 14.6 Plt Count 314 MPV 9.4 Absolute Nucleated RBC 0.000 Nucleated RBC % (auto) 0.0 Anion Gap 11 L Estim Creat Clear Calc 90.5 Estimated GFR > 60 Random Glucose 95 Calcium 9.4 Magnesium 2.2 2.0 Assessment and Plan (1) UGI bleed: Status: Acute Plan d3 58yo M with AUD with hx withdrawal, OUD on methadone, HTN, remote hx PE on apixaban presenting with epigastric pain + 4 episodes of hematemesis recent admission 12/23-12/29/23 for similar symptoms, treated then for EtOH withdrawal + underwent EGD showing esophageal ulcer, mild antral gastritis + esophageal candidiaiss hematemesis - likely EtOH gastritis/esophagitis. GI consulted, no repeat EGD indicated, give IV PPI, clear liquids diet. Added sucralfate. IV hydromorphone for severe pain. - try to advance diet tomorrow if improved hx PE - hold apixaban due to UGIB; discuss with GI when safe to resume chronic anemia - due to EtOH; H+H stable AUD - phenobarbital taper, thiamine, folate, multivitamin - Addiction Medicine consult pending cocaine abuse - Addiciton Medicine consult, screen HBV/HCV/HIV OUD - resume home methadone dose L femur fracture sustained 12/22/23 - Ortho consulted last admission, recommended partial WB with walker, non- operative HTN - continue lisinopril VTE ppx - SCDs dispo - eventual home In my clinical judgment, the patient requires continued inpatient hospitalization for the following reasons: IV PPI, inpt EtOH withdrawal tx Total time managing care of this patient today: 35 minutes. Quality Stroke Does the patient have a stroke diagnosis?: No VTE Prior VTE?: No VTE Risk Level:: Medical - moderate - high VTE Device Contraindication: N/A - Device Ordered VTE Drug Contraindication: Treatment Not Indicated
[2024-01-16] MEDS: 0.9 % Sodium Chloride Flush 3 ML SYRINGE IVFLUSH ×2 (09:10→16:02)
[2024-01-16] MEDS: Thiamine HCL 100 MG TABLET PO (09:11)
[2024-01-16] MEDS: lisinopriL 10 MG TABLET PO (09:11)
[2024-01-16] MEDS: Folic Acid 1 MG TABLET PO (09:12)
[2024-01-16] MEDS: PHENobarbitaL 15 MG TABLET 45 MG PO ×2 (09:12→21:38)
--- NOTE | 2024-01-16 10:37 | MHC.RECOVRN ---
Met with pt in 471 after consult placed to Addiction Medicine for polysubstance use. Pt had presented to the ED reporting vomiting bright red blood and alcohol use. Upon evaluation, pt admitted for hematemesis. Pt laying in bed, awake, alert, engages in conversation, appears uncomfortable. Pt familiar with t/w from previous consults. Pt reports using heroin/fentanyl, 3 bags daily, IN, as well as 8-10 pressed pills, IN. Pt also reports alcohol use, 2 pints daily. Pt currently reporting opioid withdrawal symptoms including body aches and upset stomach. Pt had received 30 mg methadone yesterday with positive effect. Pt had been initiated on methadone while at [facility] last month, reports he did not follow up with [facility]. During that hospitalization, pt was receiving 30 mg methadone daily. Pt would like to continue with 30 mg methadone daily. Plan for pt to get more comfortable before discussing after care plan/resources. Pt denies questions or concerns for t/w at this time.
[2024-01-16] MEDS: methADONE HCl 20 MG/2 ML ORAL.CONC 30 MG PO (10:41)
[2024-01-16] MEDS: Calcium Carbonate 750 MG TAB.CHEW PO (21:38)
[2024-01-16] MEDS: Melatonin 3 MG TABLET 6 MG PO (23:52)
[2024-01-17] VITALS (8 sets, daily range): BP systolic 106–164; BP diastolic 57–89; PULSE 71–74; RESP 16–20; TEMP 36.6–37; O2SAT 92–97
[2024-01-17] MEDS: 0.9 % Sodium Chloride Flush 3 ML SYRINGE IVFLUSH ×4 (02:05→21:05)
[2024-01-17] MEDS: Calcium Carbonate 750 MG TAB.CHEW PO ×4 (02:59→18:06)
[2024-01-17] MEDS: HYDROmorphone HCl 1 MG/ML SYRINGE IVPUSH (04:25)
[2024-01-17] MEDS: Pantoprazole Sodium 40 MG/10 ML VIAL IVPUSH ×2 (04:27→15:48)
[2024-01-17] MEDS: Milk of Magnesia 30 ML ORAL.SUSP PO ×2 (04:34→12:32)
[2024-01-17 06:31] LABS: Hematocrit 31.7 % (42.0-52.0); Hemoglobin 10.4 g/dl (14.0-18.0); Mean Corpuscular HGB Conc 32.8 g/dl (31.0-36.0); Mean Corpuscular Hemoglobin 26.7 pg (27.0-33.0); Mean Corpuscular Volume 81.5 fL (80.0-98.0); Mean Platelet Volume 9.4 fL (9.4-12.4); Platelet Count 289 X10*3/uL (160-400); Red Blood Count 3.89 X10*6/uL (4.60-5.80); Red Cell Distribution Width 14.5 % (11.0-16.0); White Blood Count 4.6 X10*3/uL (4.8-10.8)
[2024-01-17 08:05] LABS: HBS Num1 5.64 mIU/mL (0-7.99); HBsAGNum1 0.48 S/CO (0.00-0.99); HIV AB/AG Nonreactive (Nonreactive); HIV Num 1 0.08 S/CO (0.00-0.99); Hepatitis B Surface Antigen Negative (Negative); ~Hepatitis B Surface Antibody NONREACTIVE (Nonreactive)
[2024-01-17] MEDS: lisinopriL 10 MG TABLET PO (08:18)
[2024-01-17] MEDS: Benzonatate 100 MG CAPSULE PO ×3 (08:18→21:04)
[2024-01-17] MEDS: Sucralfate Oral Suspension 1 GM/10 ML ORAL.SUSP PO ×4 (08:18→21:03)
[2024-01-17] MEDS: PHENobarbitaL 30 MG TABLET PO ×2 (08:18→21:04)
[2024-01-17] MEDS: Thiamine HCL 100 MG TABLET PO (08:18)
[2024-01-17] MEDS: Folic Acid 1 MG TABLET PO (08:18)
[2024-01-17] MEDS: methADONE HCl 20 MG/2 ML ORAL.CONC 30 MG PO (08:19)
[2024-01-17 09:34] LABS: HBc Num3 5.66 S/CO; Hepatitis B Core Antibody Reactive (Nonreactive)
--- NOTE | 2024-01-17 09:43 | HO.PM.IMPN ---
Subjective Subjective Date of Service: 01/17/24 Interval History: Complaining of persistent epigastric pain, able to tolerate cream of wheat, no nausea, no vomiting, no hematemesis, no other acute issues overnight. Review of Systems All other system reviewed and are negative. Physical Exam Vital Signs: Vital Signs: Last Vital Signs Temp 98.4 F 01/17/24 08:00 Pulse 74 01/17/24 08:00 Resp 16 01/17/24 08:00 BP 164/89 H 01/17/24 08:18 Pulse Ox 97 01/17/24 08:00 O2 Del Method Room Air 01/17/24 08:00 BMI result Body Mass Index 23.7 Const: Other: Gen: Awake alert, in no acute distress HEENT: sclera anicteric, moist mucus membranes Neck: supple Lungs: clear to auscultation bilaterally Heart: regular rate and rhythm, no murmurs Abd: soft, epigastric tenderness to palpation,non-distended, no rigidity Ext: no edema Skin: warm/well-perfused Neuro: alert and oriented x3, no focal findings Psych: appropriate affect Objective Data Active Medications Acetaminophen (Acetaminophen 325 Mg Tablet) 650 mg PO Q6H PRN PRN Reason: Pain, Mild (Pain Scale 1-3), fever or headache Last Admin: 01/15/24 15:43 Dose: 650 mg Documented By: CÉSAR Benzonatate (Benzonatate 100 Mg Capsule) 100 mg PO TID PRN PRN Reason: Cough Last Admin: 01/17/24 08:18 Dose: 100 mg Documented By: FORD Calcium Carbonate (Calcium Carbonate 750 Mg Tab.Chew) 750 mg PO Q4H PRN PRN Reason: Heartburn Last Admin: 01/17/24 08:18 Dose: 750 mg Documented By: FORD Folic Acid (Folic Acid 1 Mg Tablet) 1 mg PO DAILY [facility] Stop: 01/17/24 16:39 Last Admin: 01/17/24 08:18 Dose: 1 mg Documented By: FORD Lisinopril (Lisinopril 10 Mg Tablet) 10 mg PO DAILY [facility]; Protocol Last Admin: 01/17/24 08:18 Dose: 10 mg Documented By: FORD Magnesium Hydroxide (Milk Of Magnesia 30 Ml Oral.Susp) 30 ml PO DAILY PRN PRN Reason: Constipation Last Admin: 01/17/24 04:34 Dose: 30 ml Documented By: PARRISH Melatonin (Melatonin 3 Mg Tablet) 6 mg PO BEDTIME PRN PRN Reason: Insomnia Last Admin: 01/16/24 23:52 Dose: 6 mg Documented By: PARRISH Comments: pt request for sleep Methadone HCl (Methadone Hcl 20 Mg/2 Ml Oral.Conc) 30 mg PO DAILY [facility] Last Admin: 01/17/24 08:19 Dose: 30 mg Documented By: FORD Ondansetron HCl (Ondansetron Hcl 4 Mg/2 Ml Vial) 4 mg IVPUSH Q8H PRN PRN Reason: Nausea and Vomiting Last Admin: 01/15/24 05:42 Dose: 4 mg Documented By: KENYATTA Pantoprazole Sodium (Pantoprazole Sodium 40 Mg/10 Ml Vial) 40 mg IVPUSH BID@0630,1630 [facility] Last Admin: 01/17/24 04:27 Dose: 40 mg Documented By: PARRISH Pharmacy Consult (Consult Rx Etoh Phenob Im/Po) 1 each MISCELLANE ONCE PRN; Protocol PRN Reason: Consult order Phenobarbital (Phenobarbital 30 Mg Tablet) 30 mg PO BID [facility]; Protocol Stop: 01/18/24 21:01 Last Admin: 01/17/24 08:18 Dose: 30 mg Documented By: FORD Phenobarbital (Phenobarbital 30 Mg Tablet) 30 mg PO DAILY [facility]; Protocol Stop: 01/20/24 09:01 Sodium Chloride (0.9 % Sodium Chloride Flush 3 Ml Syringe) 3 ml IVFLUSH QSHIFT [facility] Last Admin: 01/17/24 08:19 Dose: 3 ml Documented By: FORD Sucralfate (Sucralfate Oral Suspension 1 Gm/10 Ml Oral.Susp) 1 gm PO QIDACHS [facility] Last Admin: 01/17/24 08:18 Dose: 1 gm Documented By: FORD Thiamine HCl (Thiamine Hcl 100 Mg Tablet) 100 mg PO DAILY [facility] Stop: 01/17/24 16:39 Last Admin: 01/17/24 08:18 Dose: 100 mg Documented By: FORD Labs 01/17/24 06:14 01/16/24 06:06 Labs: Laboratory Results - last 24 hr 01/16/24 01/17/24 06:06 06:14 MCV 81.5 MCH 26.7 L MCHC 32.8 RDW 14.5 Plt Count 289 MPV 9.4 Absolute Nucleated RBC 0.000 Nucleated RBC % (auto) 0.0 Hep Bs Antigen Negative Hep Bs Antibody NONREACTIVE Hep B Core Total Ab Reactive HIV 1&2 Ab/P24 Ag 4thGn Nonreactive Assessment and Plan (1) UGI bleed: Status: Acute Plan 58yo M with AUD with hx withdrawal, OUD on methadone, HTN, remote hx PE on apixaban presenting with epigastric pain + 4 episodes of hematemesis recent admission 12/23-12/29/23 for similar symptoms, treated then for EtOH withdrawal + underwent EGD showing esophageal ulcer, mild antral gastritis + esophageal candidiaiss hematemesis - no recurrent episodes - likely EtOH gastritis/esophagitis. GI consulted, no repeat EGD indicated,on IV PPI, sucralfate.dc IV hydromorphone and ppi , will transition to by mouth PPI and continue as needed Tums - on regular diet hx PE - hold apixaban due to UGIB;will discuss with GI when safe to resume chronic anemia - due to EtOH; H+H stable AUD - phenobarbital taper, thiamine, folate, multivitamin - seen by Addiction Team will discuss further plan. cocaine abuse - Addiciton Medicine consult, hepatitis-B core IgM antibody pending,/hepatitis-C viral load pending /HIV non reactive OUD - seen by Addiction Team patient using 3 bags of heroin daily intranasally as well as 8-10 pressed pills, continue methadone. L femur fracture sustained 12/22/23 - Ortho consulted last admission, recommended partial WB with walker, non-operative HTN - stable bp ,continue lisinopril VTE ppx - SCDs In my clinical judgment, the patient requires continued inpatient hospitalization for the following reasons: inpt EtOH withdrawal tx and follow-up on hematemesis Total time managing care of this patient today: 35 minutes. Quality Stroke Does the patient have a stroke diagnosis?: No VTE Prior VTE?: No VTE Risk Level:: Medical - moderate - high VTE Device Contraindication: N/A - Device Ordered VTE Drug Contraindication: Treatment Not Indicated
--- NOTE | 2024-01-17 11:46 | MHC.RECOVRN ---
Met with pt to follow up and provide support. Pt sitting in chair, awake, alert, easily engages in conversation. Reporting abdominal pain. Pt reports he does not want to continue methadone upon discharge, would like to taper. Pt reports friend from [facility] is visiting later today and has informed pt it is likely pt could go to one of the [facility]. Pt informs t/w if he returns to community he will continue to drink alcohol. Pt reports hopefulness in regards to placement as well as returning to . Pt denies questions or concerns for t/w. Discussed with provider and RN.
--- NOTE | 2024-01-17 15:09 | MHC.CM.PN ---
EMR reviewed and per MD rounds, pt is not medically cleared for discharge due to management of ETOH w/d.
[2024-01-17] MEDS: ondansetron HCL 4 MG/2 ML VIAL IVPUSH (18:06)
[2024-01-17] MEDS: Melatonin 3 MG TABLET 6 MG PO (23:02)
[2024-01-18] VITALS: BP 133/73; PULSE 76; RESP 16; TEMP 37.1; O2SAT 95
[2024-01-18 03:42] VITALS: BP 132/74; PULSE 70; RESP 16; TEMP 36.6; O2SAT 94
[2024-01-18] MEDS: Omeprazole 40 MG CAPSULE.DR PO (05:57)
[2024-01-18 07:29] VITALS: BP 124/72; PULSE 68; RESP 17; TEMP 36.8; O2SAT 95
[2024-01-18] MEDS: Benzonatate 100 MG CAPSULE PO (07:37)
[2024-01-18] MEDS: PHENobarbitaL 30 MG TABLET PO (07:37)
[2024-01-18] MEDS: Sucralfate Oral Suspension 1 GM/10 ML ORAL.SUSP PO (07:37)
[2024-01-18] MEDS: lisinopriL 10 MG TABLET PO (07:37)
[2024-01-18] MEDS: methADONE HCl 20 MG/2 ML ORAL.CONC 25 MG PO (07:37)
[2024-01-18] MEDS: 0.9 % Sodium Chloride Flush 3 ML SYRINGE IVFLUSH (07:37)
[2024-01-18 11:39] LABS: HCV Log PCR <1.18 NOT DETECTED Log IU/mL (NOT DETECTED); HepC Viral Load <15 NOT DETECTED IU/mL (NOT DETECTED)
[2024-01-18 12:00] VITALS: BP 133/80; PULSE 81; RESP 16; TEMP 36.2; O2SAT 97
--- NOTE | 2024-01-18 12:03 | P.DS_ITS ---
DS: Providers Provider Date of Service: 01/18/24 Date of admission: 01/14/24 16:22 Primary care physician: Maximo Morfin MD Consults: 01/14/24 16:32 Consult to Gastroenterology Routine Consulting Provider: Stewart Ventura Reason for consultation: Hematemesis, last EGD on 12/24 Has provider been notified: No 01/14/24 16:54 Addiction Medicine Routine Consulting Provider: Addiction Covering Reason for consultation: Polysubstance use disorder DS: Diagnosis Discharge Diagnosis (1) UGI bleed: Status: Acute DS: Summary Hospital Course Hospital Course: History of present illness: Date of Service: 01/14/24 Attending physician on admission: Javier Bergeron Chief Complaint: Hematemesis Pt is a 58-year-old male with a PMH significant for?alcohol use disorder with history of withdrawal,?HTN, hx of PE on Eliquis, and opiate use disorder on methadone who presents to the ED for evaluation of epigastric pain and hematemesis x4 since early this morning. Patient was recently admitted to the hospital on 12/23-12/28 for similar symptoms where he was treated for alcohol withdrawal and underwent an EGD which found esophageal ulcer, mild antral gastritis, and esophageal candidiasis. The patient reports upon discharge he refrained from alcohol use until 3 days ago he started drinking again. Does not specify exactly how much he was drinking only saying that it was ?quite a lot?. Last drink last night at approximately 20:00. Also admits to doing cocaine. This morning patient reports experiencing severe epigastric pain and bright red bloody hematemesis times 3-4 episodes. States has been regularly taking his Eliquis and lisinopril, otherwise noncompliant with his medications including fluconazole for candidiasis. Intermittent sharp, stabbing chest pain. No shortness a breath or difficulty breathing. Patient overall is a rather poor historian, and is unsure exactly when he had his prior PEs other than stating it was ?a few years ago?. Currently denies increase in anxiety. No headache. Denies nausea or vomiting at this time. No diaphoresis. Denies auditory, visual, and tactile hallucinations. 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 In the ED pt was hypertensive up to 190/92, respiratory rate 10, and satting at 96% on RA. Labs were significant for initial H&H of 10.5/31.3 with repeat 4 hours later of 9.7/29.5 (down from 11 0.0/33.8 on 12/31/2023), BUN 35 with and creatinine 1.16. No leukocytosis. No significant electrolyte abnormalities hepatic function WNL. Serial troponins flat at 6.9, 7.9, and 7.9. Tox screen positive for opiates, fentanyl, barbiturates, benzos, and cocaine. Ethyl alcohol levels undetectable. GI bleeding CT of abdomen/pelvis showed marked esophageal wall thickening and submucosal edema, as well as new foci of hyperenhancement and hyperdensity within the distal esophageal wall that could represent small areas of active bleeding. Found trace paraesophageal free fluid but no extraluminal air, and showed possible right lower lobe pulmonary emboli. EKG demonstrated sinus rhythm with occasional PVCs, but no evidence of significant ST elevations or depressions. Pt was treated with IVF, Maalox, famotidine, lisinopril, and Protonix. Pt will be admitted to the hospital for treatment and further evaluation of intractable abdominal pain and hematemesis in the setting of likely alcoholic gastritis. Hospital course: Acute abdominal pain with hematemesis likely upper GI bleed due to gastritis and esophageal ulcer. 58yo M with history of alcohol use disorder and withdrawal, opioid use disorder on methadone, HTN, remote hx PE on apixaban presented to [facility] with symptoms of abdominal pain and 4 episodes of hematemesis Patient recently discharged from [facility] on 12/28 with similar symptoms treated then for alcohol withdrawal and underwent upper endoscopy that showed esophageal ulcer, mild antral gastritis and esophageal candidiasis , patient admitted to medical floor he noted to have no recurrent episodes of hematemesis patient was treated with intravenous Protonix, sucralfate and as needed Tums, with good response patient evaluated by Dr. Carl no repeat endoscopy was indicated, H&H remained stable, Eliquis held due to upper GI bleed recommend to resume after 1 week, he is recommended to follow-up with primary care physician to discuss continued use of anticoagulation, patient evaluated by Addiction Team and now being discharged to [facility], In regard to opiate use disorder patient has been continued on methadone which he does not want to continue and wishes to gradually taper Addiction Team recommend to wean 5 mg daily. For cocaine abuse strongly recommend to abstain from illicit drug use, hepatitis-C viral load is undetectable, HIV nonreactive, hepatitis-B core IgM antibody is pending, recommend follow-up with Gastroenterology Left femur fracture sustained 12/22/23, Ortho consulted last admission, recommended partial WB with walker, non-operative In regard to hypertension blood pressure is stable recommend to continue lisinopril Time Attestation Discharge Coordination Time (in mins): 40 Quality: Safe Use of Opioids Does Pt have an Active Cancer Diagnosis on the Problem List?: No Quality: Stroke Does the patient have a stroke diagnosis?: No Physical Exam Vital Signs: Vital Signs: Last Vital Signs Temp 97.2 F 01/18/24 12:00 Pulse 81 01/18/24 12:00 Resp 16 01/18/24 12:00 BP 133/80 01/18/24 12:00 Pulse Ox 97 01/18/24 12:00 O2 Del Method Room Air 01/18/24 12:00 BMI result Body Mass Index 23.7 Const: Other: Gen: Awake alert, in no acute distress HEENT: sclera anicteric, moist mucus membranes Neck: supple Lungs: clear to auscultation bilaterally Heart: regular rate and rhythm, no murmurs Abd: soft, no epigastric tenderness ,non-distended, no rigidity Ext: no edema Skin: warm/well-perfused Neuro: alert and oriented x3, no focal findings Psych: appropriate affect DS: Data Data Completed and Pending Completed studies during hospitalization [Text1]: Procedures Detoxification Services for Substance Abuse Treatment (12/24/23) Excision of Stomach, Pylorus, Via Natural or Artificial Opening Endoscopic, Diagnostic (12/24/23) Extraction of Esophagus, Via Natural or Artificial Opening Endoscopic, Diagnostic (12/24/23) Insertion of Endotracheal Airway into Trachea, Via Natural or Artificial Opening (09/07/23) Introduction of Vasopressor into Peripheral Vein, Percutaneous Approach (09/07/23) Respiratory Ventilation, Less than 24 Consecutive Hours (09/07/23) Labs on day of discharge: Laboratory Results - last 24 hr 01/16/24 06:06 Hep C Viral Load <15 NOT DETECTED Hep C Viral Load Log <1.18 NOT DETECTED Discharge Plan Discharge Anticipated Discharge Date/Time: 01/18/24 11:56 Patient Disposition: Xfer Other Discharge Diagnosis: Acute epigastric pain/upper GI bleed Alcohol use disorder Referrals: Maximo Morfin MD [Primary Care Provider] - 1 Week Discharge Medications: New sucralfate 100 mg/mL Suspension 1 g PO QIDACHS Qty: 1000 0RF Continued lisinopril 10 mg tablet 10 mg PO DAILY 30 Days Qty: 30 0RF omeprazole 40 mg Capsule,Delayed Release(Dr/Ec) 40 mg PO BID@0630,1630 Qty: 180 0RF Changed methadone [Methadose] 10 mg/mL Concentrate 20 mg PO DAILY Qty: 30 0RF Held Eliquis 5 mg tablet 5 mg PO BID 30 Days Qty: 60 0RF Hold Instructions: Resume on 01/24/24. Discharge Orders: Discharge Order (Routine); Ordered 01/18/24 Ordered By: Jean-Paul Rojas Diet: Advance to usual diet Activity on Discharge: As tolerated Stand Alone Forms: Patient Portal Discharge page Print Language: Uzbek Care Plan Goals: Gastritis/esophagitis strongly recommend to abstain from alcohol Take Prilosec 40 mg 1 tablet twice daily and Carafate 4 times daily Follow-up with four slide machine setter Dr. Carl call for appointment Strongly recommend to abstain from alcohol and illicit drug use Receive last dose of methadone 25mg today Health Concerns: Left femur fracture sustained on 12/22/2023 recommend partial weight bear with walker Plan of Treatment: Outpatient follow-up with primary care physician, four slide machine setter and Orthopedic surgery call for appointment Assessment: As above
--- NOTE | 2024-01-18 12:49 | MHC.CM.PN ---
Pt has been medically cleared for DC, he went to [facility].
--- NOTE | 2024-01-18 13:24 | MHC.RECOVRN ---
Briefly met with pt prior to dc to [facility]. Pt hopeful regarding future and eventual placement at a [facility]. Pt plans to attend AA. Provided pt with t/w contact information if needed. Denied questions or concerns for t/w.
[2024-01-19 03:53] LABS: Hepatitis B Core Antibody IgM NON-REACTIVE (NON-REACTIVE)
== END 2024-01-18 12:28 | disposition other institution (70) | DRG 241 ==
LOC: HO.ED 12:24 → HO.EDOVER 16:44 → HO.S3 17:12 → HO.EDOVER 17:25 → HO.IMC 18:09
PROVIDERS: Family Medicine; Internal Medicine Gastroenterology; Physician Assistant Medical; Admitting Provider Student in an Organized Health Care Education/Training Program; Emergency Provider Emergency Medicine Emergency Medical Services; PCP Internal Medicine; Visit Provider Hospitalist
DX: K29.21 Alcoholic gastritis with bleeding (principal); K20.91 Esophagitis, unspecified with bleeding; F10.20 Alcohol dependence, uncomplicated; F11.20 Opioid dependence, uncomplicated; Z79.01 Long term (current) use of anticoagulants; Z87.891 Personal history of nicotine dependence; Z86.711 Personal history of pulmonary embolism; Z79.899 Other long term (current) drug therapy
CPT/HCPCS: 36415; 74178; 80048; 80053; 80307; 82607; 82746; 83690; 83735; 84484; 85025; 85027; 85610; 85730; 86704; 86705; 86706; 87340; 87389; 87522; 93005; 99285; J1170; J2270; J2405; J2470; J2560; Q9967

== ENCOUNTER → 2024-01-14 06:44 | Outpatient (BNV) | payer MEDICAID, SELFPAY | PROVIDERS: Emergency Provider Emergency Medicine Emergency Medical Services; PCP Internal Medicine; Visit Provider Internal Medicine | DX: R07.9 Chest pain, unspecified (principal); R10.13 Epigastric pain | CPT/HCPCS: 93010 ==

== ENCOUNTER → 2024-01-14 16:22 | Outpatient (BNV) | payer MEDICAID, SELFPAY | PROVIDERS: Admitting Provider Student in an Organized Health Care Education/Training Program; Emergency Provider Emergency Medicine Emergency Medical Services; PCP Internal Medicine; Visit Provider Internal Medicine Gastroenterology | DX: R11.2 Nausea with vomiting, unspecified (principal); K92.2 Gastrointestinal hemorrhage, unspecified; K20.90 Esophagitis, unspecified without bleeding; R10.9 Unspecified abdominal pain | CPT/HCPCS: 99222 ==

== ENCOUNTER → 2024-01-14 16:22 | Outpatient (BNV) | payer MEDICAID, SELFPAY | PROVIDERS: Admitting Provider Student in an Organized Health Care Education/Training Program; Emergency Provider Emergency Medicine Emergency Medical Services; PCP Internal Medicine; Visit Provider Student in an Organized Health Care Education/Training Program | DX: K92.2 Gastrointestinal hemorrhage, unspecified (principal) | CPT/HCPCS: 99223; 99232; 99233; 99239 ==

== ENCOUNTER 2024-01-18 14:04 | Emergency (ER) | payer MEDICAID, SELFPAY ==
[2024-01-18 14:20] VITALS: BP 65/43; BP 92/56; PULSE 74; PULSE 88; RESP 16; TEMP 36.5; O2SAT 89; BMI 21.5
--- NOTE | 2024-01-18 14:34 | ED_ITS ---
HPI - Overdose General Chief Complaint: Overdose Stated Complaint: HEROIN OVERDOSE,ETOH,4MG NARCAN EMERGENCY MEDICINE PHYSICIAN ASSISTANT PER EMS Time Seen by Provider: 01/18/24 14:32 Source: patient and EMS Mode of arrival: EMS Limitations: no limitations History of Present Illness ED Provider: Dr. Sepulveda HPI Narrative: Brought in by ambulance was given 4mg of Narcan for overdose on opiates and alcohol, patient denies suicidal ideation complaint: accidental overdose Onset (ago): minute(s) Related Data Previous Rx's ?Medication ?Instructions ?Recorded apixaban 5 mg tablet (Eliquis) 5 mg PO BID 30 days #60 tabs 09/15/23 lisinopril 10 mg tablet 10 mg PO DAILY 30 days #30 tabs 09/15/23 omeprazole 40 mg capsule,delayed 40 mg PO BID@0630,1630 #180 caps 12/29/23 release methadone 10 mg/mL oral 20 mg (2 mL) PO DAILY #30 mL 01/18/24 concentrate (Methadose) sucralfate 100 mg/mL oral 1 g (10 mL) PO QIDACHS #1,000 mL 01/18/24 suspension Allergies Allergy/AdvReac Type Severity Reaction Status Date / Time bee pollen [BEE STINGS] Allergy Severe SWELLING Verified 01/18/24 14:28 Review of Systems 2 Review of Systems: Yes Unobtainable due to mental status Neurologic: Denies Sensory deficit (Neuro) [facility] Past Medical History Medical History Substance abuse EtOH dependence Hypertension Surgical History Hx of endoscopy History of total right hip replacement Family History Family History Father Stomach cancer Social History Social History Household Members: Family Housing: House Do you presently have visiting nurse or other home services: No Alcohol intake: current Alcohol intake frequency: 3 or more drinks per day Alcohol type: hard liquor Comment: 1:1 Patient Tobacco Use Status: Former Tobacco user Tobacco use type: Cigarette Cigarettes Per Day: 5 Years Smoked: 20 Smoked in Last 30 Days: Yes e-Cigarette/Vaping Use: Former Use Second Hand Smoke Exposure: Yes Use of substances other than those prescribed or required for medical reasons: Yes Substance Use Type: Heroin Last Used Substance: Just Prior to Admission Advance Directives: No Advance Directives Information Provided: Yes Do you have a plan to hurt others: No Plan service: No Current occupational status: unemployed Sexual orientation: Straight/Heterosexual Physical Exam 2 Vital Signs: Vital Signs: Last Vital Signs Temp 97.7 F 01/18/24 14:20 Pulse 60 01/18/24 14:51 Resp 14 01/18/24 14:51 BP 74/43 L 01/18/24 14:51 Pulse Ox 99 01/18/24 14:51 O2 Del Method Nasal Cannula 01/18/24 14:51 O2 Flow Rate 2 01/18/24 14:51 Oxygen Flow Rate 2 01/18/24 14:20 BMI result Body Mass Index 21.5 Const: Other: thin cachectic male, looking older than stated age Orientation/consciousness: oriented to person Limitations: no limitations HEENT: Head: Yes normal to inspection Ears: external ears normal General nose exam: Normal external nose present Mouth: Normal oral and palatal mucosa present and oropharynx normal Throat: Yes posterior oropharynx normal Eyes: General: appearance normal, both eyes and all related structures Neck: Other: supple Neck: Yes normal visual inspection Chest: Chest palpation & inspection: normal inspection of the chest Resp: Auscultation: clear to auscultation bilaterally Cardio: Jugular venous distension: no JVD Rate: regular rate Rhythm: r egular rhythm Heart sounds: S1 normal heart sound present and S2 normal heart sound present GI: Inspection: Yes normal to inspection Palpation (GI): Soft to palpation, nontender and No hepatosplenomegaly present Auscultation: normal bowel sounds : General: Yes no CVA tenderness Back/Spine/Pelvis: Back: no CVA tenderness Skin: General skin exam: no rashes or lesions noted Neuro: General: oriented to person Cranial nerves: Yes CN's II-XII intact bilaterally Motor exam (neuro): 5/5 motor strength present throughout S ensory Exam: No Sensory deficit (Neuro) Extrem: General: Yes normal to inspection Psych: Appearance: grossly normal Course Reevaluation(s) Reevaluation #1: Patient initially hypotensive recieved IV fluids and now improved. Patient will be made physician observation as he wants to be seen for drug dependency and alcohol dependency. Time is necessary for his evaluation and reevaluation Time: 17:21 Reevaluation #2: I spent 40 minutes of critical care, with interventions, assessments, speaking to patient, consultants, and family. Time: 17:22 Medications Administered Discontinued Medications Generic Name Dose Route Start Last Admin Trade Name Freq PRN Reason Stop Dose Admin Sodium Chloride 1,000 mls @ 999 mls/hr 01/18/24 14:45 01/18/24 16:20 Ns IVCONT 01/18/24 16:45 999 mls/hr .Q1H1M [facility] Administration Medical Decision Making Differential Diagnosis Differential Diagnoses: The differential diagnosis associated with the presentation includes (opiate overdose, alcohol intoxication, dehydration) Admission/Observation Consideration of admission/observation: Escalation of care including admission/observation considered (upon arrival patient considered for admission) Consult Healthcare Provider Management of the patient was discussed with: Behavioral Health Provider Lab Data 01/18/24 14:33 01/18/24 14:33 Labs: Lab Results 01/18/24 Range/Units 14:33 WBC 7.6 (4.8-10.8) X10*3/uL RBC 3.82 L (4.60-5.80) X10*6/uL Hgb 10.4 L (14.0-18.0) g/dl Hct 31.6 L (42.0-52.0) % MCV 82.7 (80.0-98.0) fL MCH 27.2 (27.0-33.0) pg MCHC 32.9 (31.0-36.0) g/dl RDW 15.1 (11.0-16.0) % Plt Count 288 (160-400) X10*3/uL MPV 9.5 (9.4-12.4) fL Immature Gran % (Auto) 1.7 H (0.0-0.4) % Neut % (Auto) 63.4 (45-73) % Lymph % (Auto) 22.3 (20-40) % Sevier % (Auto) 11.5 H (2-11) % Eos % (Auto) 0.4 (0-4) % Baso % (Auto) 0.7 (0-2) % Lymph # (Auto) 1.7 (1.2-4.9) X10*3/uL Sevier # (Auto) 0.9 (0.1-1.2) X10*3/uL Eos # (Auto) 0.0 (0.0-0.4) X10*3/uL Baso # (Auto) 0.1 (0.0-0.2) X10*3/uL Abs Immat Gran (auto) 0.13 H (0.00-0.03) X10*3/uL Absolute Neuts (auto) 4.8 (2.0-8.3) x10*3/uL Absolute Nucleated RBC 0.000 (0.0-0.012) X10*3/uL Nucleated RBC % (auto) 0.0 (0.0-0.2) /100WBC Sodium 134 L (135-145) mmol/L Potassium 3.3 (3.3-5.1) mmol/L Chloride 99 (96-108) mmol/L Carbon Dioxide 21 L (22-29) mmol/L Anion Gap 17 (12-20) BUN 12 (9-16) mg/dL Creatinine 0.94 (0.5-1.4) mg/dL Estim Creat Clear Calc 81.4 Estimated GFR > 60 Random Glucose 129 H (60-115) mg/dL Calcium 9.0 (8.4-10.2) mg/dL Total Bilirubin 0.1 (0.0-1.0) mg/dL AST 13 (5-37) U/L ALT 9 (0-40) U/L Alkaline Phosphatase 99 (39-117) U/L Total Protein 6.8 (6.5-8.0) g/dL Albumin 3.8 (3.5-5.0) g/dL Ethyl Alcohol 202 mg/dL Independent Historian Clinical information obtained from an independent historian. History obtained from or confirmed by: EMS External Record Review External record reviewed: Outpatient record Prescription Management I considered prescription management with: Antibiotic (no evidence of infection so no abx given) Chronic Conditions Patient?s care impacted by: Other (alcoholism and drug dependency) Social Determinants Patient?s care significantly limited by Social Determinants of Health including: Low income and Alcoholism and drug addiction in family Discharge Plan Discharge Clinical Impression: Drug overdose, Alcohol use disorder, severe, dependence, Polysubstance abuse Patient Disposition: Still a Patient Prescriptions: No Action lisinopril 10 mg tablet 10 mg PO DAILY 30 Days Qty: 30 0RF Eliquis 5 mg tablet 5 mg PO BID 30 Days Qty: 60 0RF Hold Instructions: Resume on 01/24/24. omeprazole 40 mg Capsule,Delayed Release(Dr/Ec) 40 mg PO BID@0630,1630 Qty: 180 0RF sucralfate 100 mg/mL Suspension 1 g PO QIDACHS Qty: 1000 0RF methadone [Methadose] 10 mg/mL Concentrate 20 mg PO DAILY Qty: 30 0RF Print Language: Frisian
[2024-01-18 14:42] LABS: Basophils Absolute Auto 0.1 X10*3/uL (0.0-0.2); Basophils Percent Auto 0.7 % (0-2); Eosinophils Percent Auto 0.4 % (0-4); Hematocrit 31.6 % (42.0-52.0); Hemoglobin 10.4 g/dl (14.0-18.0); Imm Gran Abs Auto 0.13 X10*3/uL (0.00-0.03); Imm Gran Pct Auto 1.7 % (0.0-0.4); Lymphocytes Absolute Auto 1.7 X10*3/uL (1.2-4.9); Lymphocytes Percent Auto 22.3 % (20-40); MANUAL DIFF FLAG NO; Mean Corpuscular HGB Conc 32.9 g/dl (31.0-36.0); Mean Corpuscular Hemoglobin 27.2 pg (27.0-33.0); Mean Corpuscular Volume 82.7 fL (80.0-98.0); Mean Platelet Volume 9.5 fL (9.4-12.4); Monocytes Absolute Auto 0.9 X10*3/uL (0.1-1.2); Monocytes Percent Auto 11.5 % (2-11); Neutrophils Absolute Auto 4.8 x10*3/uL (2.0-8.3); Neutrophils Percent Auto 63.4 % (45-73); Platelet Count 288 X10*3/uL (160-400); Red Blood Count 3.82 X10*6/uL (4.60-5.80); Red Cell Distribution Width 15.1 % (11.0-16.0); White Blood Count 7.6 X10*3/uL (4.8-10.8)
[2024-01-18] MEDS: 0.9 % Sodium Chloride 1,000 ML 999 ML IVCONT ×2 (14:43→16:20)
[2024-01-18 14:51] VITALS: BP 74/43; PULSE 60; RESP 14; O2SAT 99
[2024-01-18 15:11] LABS: Alanine Aminotransferase 9 U/L (0-40); Albumin Level 3.8 g/dL (3.5-5.0); Alkaline Phosphatase 99 U/L (39-117); Anion Gap 17 (12-20); Aspartate Amino Transferase 13 U/L (5-37); Bilirubin Total 0.1 mg/dL (0.0-1.0); Blood Urea Nitrogen 12 mg/dL (9-16); Carbon Dioxide 21 mmol/L (22-29); Chloride 99 mmol/L (96-108); Creatinine Clr Calc Pharmacy 81.4; Estimated Glomerular Filt Rate > 60; Ethanol 202 mg/dL; Glucose Random 129 mg/dL (60-115); Potassium 3.3 mmol/L (3.3-5.1); Sodium 134 mmol/L (135-145); Total Protein 6.8 g/dL (6.5-8.0)
[2024-01-18 18:18] VITALS: BP 92/52; PULSE 78; RESP 13; TEMP 36.7; O2SAT 99
[2024-01-18 18:38] LABS: Appearance Urine Clear; Color Urine Yellow; Glucose Urine UA 100 mg/dL (Negative); Leukocyte Esterase Urine Negative (Negative); Nitrite Urine Negative (Negative); PH 5.5 (5.0-9.0); Specific Gravity - Urine 1.015 (1.005-1.025); Urine Blood Negative (Negative); Urine Ketones Negative (Negative); Urine Protein Negative (Neg-Trace)
[2024-01-18 18:52] LABS: Amphetamine Screen Urine Not Detected (Not Detect); Barbiturates, Urine POSITIVE (Not Detect); Benzodiazepines Screen Urine Not Detected (Not Detect); Buprenorphine Scr Not Detected (Not Detect); Cannabinoid Screen Urine Not Detected (Not Detect); Cocaine Screen Urine Not Detected (Not Detect); Fentanyl, urine POSITIVE (Not Detect); Methadone Screen, Urine Positive (Not Detect); Opiate Screen Urine POSITIVE (Not Detect); Oxycodone Screen Urine Not Detected (Not Detect); Phencyclidine Screen Urine Not Detected (Not Detect)
[2024-01-18 20:00] VITALS: BP 119/73; PULSE 77; RESP 20; TEMP 36.8; O2SAT 98
--- NOTE | 2024-01-18 20:15 | PC.NURSE ---
care team at bedside
--- NOTE | 2024-01-18 21:11 | HO.SUDE ---
Addendum entered by ZULMA Burdick 01/18/24 21:29: Known diagnosis F10.20 - Alcohol dependence F11.20 - Opioid dependence Original Note: Patient is being assessed for a SUDE after arriving to the [place] ED, via EMS and required Narcan. Toxic screen is positive opiates, methadone, fentanyl and barbiturates. ?He is observed sitting up on hospital bed. He is alert and orientated. He disclosed he was unable to obtain admission at the [facility] and reported he drank a ?little? amount of alcohol (Fire Ball) and used ?1 line? of Fentanyl without his knowledge. He reported he thought it was cocaine. He has a history of alcohol use, 2 pints daily, 5x a week (vodka and Fire Ball) and has a history of heroin use (3 bags daily). [facility] records note, patient was admitted for IPLOC on 12/25/23 and was prescribed 30 mg of methadone at discharge. He has a history of engaging in AA and reported having a sponsor. Patient expressed feeling frustrated about not obtaining admission and requested support. He denied suicidal and homicidal ideation, plan, or intent. Provider, Katina Bustamante CNP agreed to refer patient to recovery.
[2024-01-18 22:00] VITALS: BP 112/67; PULSE 82; RESP 20; TEMP 37.2; O2SAT 96
[2024-01-19 04:54] VITALS: BP 123/64; PULSE 66; RESP 16; TEMP 36.6; O2SAT 97
--- NOTE | 2024-01-19 07:36 | PC.NURSE ---
Resumed care of pt at 0700. Pt a/ox4, up in bed, resting quietly. Touched base with Allegra HUSSEIN from recovery for ongoing plan of care.
[2024-01-19] MEDS: Naloxone HCl Nasal TAKE HOME 4 MG SPRAY 8 MG NOSTRILALT (07:46)
[2024-01-19 07:50] VITALS: BP 0/0; PULSE 0; RESP 0; TEMP -17.7; TEMP 0; O2SAT 0
--- NOTE | 2024-01-19 08:15 | PC.NURSE ---
This RN resumed care of patient at 7am, pt was asking for Dc paperwork so he could get to Allegra Yusuf RN stated pt could go, aware dc plaed, pt brought to [facility] to receive backpack. Take home narcan given
--- NOTE | 2024-01-24 15:45 | HE.ONCSEC ---
I scan in some notes that was faxed to our office. he is not and oncology or hematology PT
== END 2024-01-19 08:16 | disposition home or self-care (01) ==
PROVIDERS: Emergency Provider Emergency Medicine
DX: T50.901A Poisoning by unspecified drugs, medicaments and biological substances, accidental (unintentional), initial encounter (principal); Y92.9 Unspecified place or not applicable; F19.10 Other psychoactive substance abuse, uncomplicated; F10.90 Alcohol use, unspecified, uncomplicated; Y90.7 Blood alcohol level of 200-239 mg/100 ml; Z79.899 Other long term (current) drug therapy
CPT/HCPCS: 36415; 80053; 80307; 81003; 85025; 96360; 96361; 99285

== ENCOUNTER 2024-02-17 15:22 | Observation (INO) | payer MEDICAID, SELFPAY ==
--- NOTE | ~2024-02-17 | CT_ITS ---
EXAMINATION: CT HEAD WITHOUT CONTRAST CT CERVICAL SPINE WITHOUT CONTRAST CLINICAL INFORMATION: Seizures. COMPARISON: CT head December 31, 2023 TECHNIQUE: Imaging was performed from the skull base to vertex without intravenous administration of contrast. In addition, helical noncontrast CT imaging was acquired through the cervical spine and source images were reviewed along with axial reconstructions and sagittal and coronal MPRs. [This CT examination was performed using dose optimization techniques as appropriate, variously including the following: *Automated exposure control *Adjustment of mA and/or kV according to patient size (this includes techniques or standardized protocols for targeted exams where dose is matched to indication/reason for exam; i.e. extremities or head) *Use of iterative reconstruction technique] DLP: 1410 mGy-cm FINDINGS: HEAD: Redemonstration of extra-axial left frontal meningioma which is partially calcified. Measures 1.6 x 0.9 x 1.4 cm. This is stable since prior studies. No acute intracranial abnormality. No intracranial mass, hemorrhage, or midline shift is visualized. The ventricles and sulci are proportional. No extra-axial collections are identified. The paranasal sinuses and mastoid air cells are well aerated. CERVICAL SPINE: There is no evidence of acute cervical spine fracture. Vertebral bodies remain normal in height. Cervical vertebrae have normal alignment. There is multilevel degenerative spondylosis of the cervical spine with disc height narrowing and endplate spurs and facet joint arthrosis No pre- or paravertebral soft tissue abnormality is identified. Limited assessment of the lung apices is unremarkable. CT/CT cervical spine wo IV con IMPRESSION: 1. No acute intracranial pathology. 2. No CT evidence of acute cervical spine fracture or traumatic subluxation
--- NOTE | ~2024-02-17 | MR_ITS ---
EXAMINATION: MR BRAIN WITHOUT AND WITH CONTRAST CLINICAL INFORMATION: New seizure COMPARISON: None available. TECHNIQUE: Multiplanar, multisequence MRI of the brain was obtained before and after the intravenous administration of 7 mL Gadavist. FINDINGS: There is a homogeneously enhancing extra-axial mass along the left frontotemporal convexity which demonstrates restricted diffusion with apparent dural tail. This mass measures 2 x 1.1 x 1.6 cm. There is mass effect on the subjacent brain parenchyma without significant edema. No intracranial hemorrhage or infarct. Scattered and confluent periventricular and deep white matter T2/FLAIR hyperintensities, nonspecific however commonly seen with small vessel ischemic disease. Diffuse prominence of the sulci with associated ex vacuo dilation of the ventricles compatible with global cerebral atrophy. There is loss of flow void involving the imaged distal right cervical ICA and spanning through the right petrous and cavernous ICA segments. No midline shift or hydrocephalus. No acute extra-axial fluid collections. The osseous structures are unremarkable. The pituitary gland, pineal gland and remaining midline structures are unremarkable. No orbital pathology. Small mucus retention cyst in the right maxillary sinus. The mastoid air cells are clear. MR/MR head/brain wo/w con IMPRESSION: -No acute intracranial hemorrhage or infarct. -Loss of flow void involving the images show right cervical ICA and spanning through the right petrous and cavernous ICA, most suggestive of occlusion. -Left frontotemporal convexity extra-axial mass, favored to represent a meningioma. -Moderate chronic microangiopathy and global cerebral volume loss.
--- NOTE | ~2024-02-17 | US_ITS ---
EXAMINATION: US EXTRACRANIAL CAROTID DUPLEX, BILATERAL CLINICAL INFORMATION: Question occlusion on MRI COMPARISON: MRI brain 02/18/2024 TECHNIQUE: Real-time ultrasound and Doppler techniques (integrating B-mode 2-D vascular images, Doppler spectral analysis and color-flow Doppler imaging) were utilized to interrogate the extracranial carotid arteries, the vertebral arteries and proximal subclavian arteries bilaterally. The degree of stenosis is determined by criteria similar to NASCET. FINDINGS: Right Side: 1. There is severe atherosclerotic plaque seen in the bifurcation/proximal ICA region. 2. The common carotid artery PSV proximally is 110 cm/s and distally 47.8 cm/s. 3. The proximal internal carotid artery through the distal internal carotid artery are occluded 4. The proximal external carotid artery PSV is 109 cm/s. 5. The vertebral artery shows antegrade flow. 6. The subclavian artery waveforms are normal. Left Side: 1. There is moderate atherosclerotic plaque seen in the bifurcation/proximal ICA region. 2. The common carotid artery PSV proximally is 112 cm/s and distally 90.1 cm/s. 3. The proximal internal carotid artery velocities are 155 cm/s systolic and 62 cm/s diastolic. 4. The proximal external carotid artery PSV is 125 cm/s. 5. The vertebral artery shows antegrade flow. 6. The subclavian artery waveforms are normal. US/US carotid duplex BI IMPRESSION: 1. RIGHT: The right proximal ICA through the distal ICA are occluded 2. LEFT: Moderate, hemodynamically significant stenosis of the proximal left internal carotid artery corresponding to a 50-79% stenosis by velocity criteria.
--- NOTE | ~2024-02-17 | XR_ITS ---
EXAMINATION: XR CHEST CLINICAL INFORMATION: Seizures. COMPARISON: Chest x-ray December 31, 2023 TECHNIQUE: 2 views of the chest were obtained. FINDINGS: No acute abnormality. Lungs normally aerated. No pulmonary vascular congestion. No pleural effusion or pneumothorax. Heart size is normal. Cardiac and mediastinal contours normal. Redemonstration of the multiple orthopedic plate right ribs. Multiple old healed rib fractures. XR/XR chest 2V IMPRESSION: No acute abnormality of the chest.
[2024-02-17 15:29] VITALS: BP 136/80; BP 137/83; PULSE 92; PULSE 94; RESP 18; TEMP 36.8; O2SAT 96; O2SAT 98; BMI 21.5
--- NOTE | 2024-02-17 15:52 | ED_ITS ---
HPI - General Adult General Chief complaint: Seizure Stated complaint: wit seizire like activity lasting 1 min Time Seen by Provider: 02/17/24 15:51 Source: patient, EMS and RN notes reviewed Mode of arrival: EMS Limitations: no limitations History of Present Illness ED Provider: ángela HPI narrative: Patient is a 58-year-old male with history of alcohol use disorder, opioid use disorder on methadone, HTN, hx of PE on Eliquis presenting to the emergency department from [facility] which patient states is a shelter house after a witnessed seizure. Patient does not recall events leading to seizure, does not remember seizure. He denies history of seizures in the past. Denies recent drug or alcohol use, states he went straight from [facility] to the [facility]. Had a checkup with the nurse at the [facility] today and was told everything was fine. Per EMS seizure was witnessed the nurse at the house, but unknown if patient fell to the floor or hit his head. He does not recall. He denies any current physical complaints. MD complaint: seizure Onset (ago): minute(s) Associated symptoms: denies other symptoms Treatments prior to arrival: none Related Data Previous Rx's ?Medication ?Instructions ?Recorded apixaban 5 mg tablet (Eliquis) 5 mg PO BID 30 days #60 tabs 09/15/23 lisinopril 10 mg tablet 10 mg PO DAILY 30 days #30 tabs 09/15/23 omeprazole 40 mg capsule,delayed 40 mg PO BID@0630,1630 #180 caps 12/29/23 release methadone 10 mg/mL oral 20 mg (2 mL) PO DAILY #30 mL 01/18/24 concentrate (Methadose) sucralfate 100 mg/mL oral 1 g (10 mL) PO QIDACHS #1,000 mL 01/18/24 suspension Allergies Allergy/AdvReac Type Severity Reaction Status Date / Time bee pollen [BEE STINGS] Allergy Severe SWELLING Verified 02/17/24 15:30 Review of Systems 2 Review of Systems: As per HPI Yes all other systems are reviewed and are negative Constitutional: Constitutional: Reports as per HPI PMFSH Past Medical History Medical History Substance abuse EtOH dependence Hypertension Surgical History Hx of endoscopy History of total right hip replacement Family History Family History Father Stomach cancer Social History Social History Household Members: Family Housing: House Do you presently have visiting nurse or other home services: No Alcohol intake: current Alcohol intake frequency: 3 or more drinks per day Alcohol type: hard liquor Comment: 1:1 Patient Tobacco Use Status: Former Tobacco user Tobacco use type: Cigarette Cigarettes Per Day: 5 Years Smoked: 20 e-Cigarette/Vaping Use: Former Use Second Hand Smoke Exposure: Yes Substance Use Type: Heroin Advance Directives: No Advance Directives Information Provided: No Do you have a plan to hurt others: No Plan service: No Current occupational status: unemployed Sexual orientation: Straight/Heterosexual Physical Exam ED Vital Signs: Vital Signs - 24 hr 02/17/24 15:29 02/17/24 18:19 02/17/24 20:52 Temperature 98.2 F 98.4 F Pulse Rate 92 73 81 Respiratory Rate 18 17 16 Blood Pressure 137/83 140/79 H 142/75 H Pulse Oximetry 96 100 98 Oxygen Delivery Method Room Air Room Air Room Air BMI result Body Mass Index 21.5 Vital signs have been reviewed and appear to be correct. Blood pressure normal. Heart rate normal. Respiratory rate normal. Temperature normal. Oxygen saturation normal. Const General: cooperative, healthy appearing and no acute distress Orientation/consciousness: oriented to person, oriented to place, oriented to time and patient oriented x3 Limitations: no limitations [facility] Head: Yes normocephalic and Yes atraumatic Ears: external ears normal General nose exam: Normal external nose present Face and sinus: Yes face symmetric Mouth: oropharynx normal and moist mucous membranes Throat: Yes uvula midline Eyes Pupils: Equal, round and reactive pupils present Neck Neck: Yes normal visual inspection, Yes no meningeal signs and Yes supple Resp Effort & Inspection: normal respiratory effort and able to speak in complete sentences Auscultation: clear to auscultation bilaterally Cardio Rate: regular rate Rhythm: regular rhythm Heart sounds: S1 normal heart sound present and S2 normal heart sound present GI Palpation (GI): Soft to palpation and nontender Auscultation: normoactive bowel sounds General: Yes no CVA tenderness Back/Spine/Pelvis Back: no CVA tenderness Skin General skin exam: elasticity normal and turgor normal Neuro General: oriented to person, oriented to place, oriented to time, patient oriented x3, tone normal, moves all extremities, Normal light touch and pain sensation, no meningeal signs, no focal motor deficits, CN's II-XI intact bilaterally and deep tendon reflexes 2+ bilaterally Cranial nerves: Yes Equal, round and reactive pupils present Cognition (Neuro): normal cognition Motor exam (neuro): 5/5 motor strength present throughout, Normal motor muscle tone present throughout and Motor abnormalities not present Extrem General: Yes full ROM, Yes no pedal edema and Yes no calf tenderness Psych Mental Status: mental status grossly normal Affect: normal affect Thought process: Normal thought process present Course Course Course Narrative: 16:35 Notified by nursing that patient appeared to be gazing to the right and not responding to stimuli, concern for additional seizure. Upon my assessment, patient with right-deviated gaze but responding to verbal stimuli, however not able to follow commands, appears postictal. Lorazepam ordered and patient brought directly to CT. Attending MD, Dr. Nicholson aware and agrees with lorazepam. Medications Administered Discontinued Medications Generic Name Dose Route Start Last Admin Trade Name Freq PRN Reason Stop Dose Admin Sodium Chloride 1,000 mls @ 999 mls/hr 02/17/24 16:45 02/17/24 18:59 Ns IV 02/17/24 17:45 Infused .Q1H1M JEAN Infusion Levetiracetam 1,500 mg in 100 mls @ 400 mls/hr 02/17/24 20:42 02/17/24 20:59 Keppra IV 02/17/24 20:56 400 mls/hr ONCE ONE Administration Lorazepam 2 mg 02/17/24 16:39 02/17/24 16:47 Lorazepam 2 Mg/Ml Vial IVPUSH 02/17/24 16:40 2 mg ONCE ONE Administration Medical Decision Making Medical Decision Making MDM Narrative: Patient is a 58-year-old male presenting to the emergency department from [facility] which patient states is a shelter house after a witnessed seizure. On exam patient is awake, A+Ox3, VS WNL, afebrile, normal neurological exam without focal deficits, physical exam findings as above. Given reported symptoms and physical exam findings, initial differential includes seizure, syncope, ICH/CVA, electrolyte abnormality, drug/alcohol ingestion or withdrawal. Less likely infection. Labs notable for elevated lactic which improved with fluids, normal ammonia, chronic anemia, otherwise unremarkable. Viral swab positive for Covid. Urinalysis is without evidence of infection. Ethanol negative. Urine drug screen positive for buprenorphine only. X-ray chest notable for no evidence of pneumonia. CT head and c-spine without evidence of ICH or fracture. My interpretation is in agreement with the radiologist's interpretation. Patient loaded with Look[employer]. Case discussed with Dr. Asher who will admit patient to medicine service. Differential Diagnosis Differential Diagnoses: The differential diagnosis associated with the presentation includes As per [facility] Lab Data 02/17/24 16:05 02/17/24 16:11 Labs: Lab Results 02/17/24 02/17/24 02/17/24 Range/Units 15:51 16:04 16:05 WBC 5.4 (4.8-10.8) X10*3/uL RBC 3.99 L (4.60-5.80) X10*6/uL Hgb 10.2 L (14.0-18.0) g/dl Hct 32.3 L (42.0-52.0) % MCV 81.0 (80.0-98.0) fL MCH 25.6 L (27.0-33.0) pg MCHC 31.6 (31.0-36.0) g/dl RDW 13.9 (11.0-16.0) % Plt Count 243 (160-400) X10*3/uL MPV 10.7 (9.4-12.4) fL Immature Gran % (Auto) 0.2 (0.0-0.4) % Neut % (Auto) 55.8 (45-73) % Lymph % (Auto) 31.9 (20-40) % [place] % (Auto) 8.4 (2-11) % Eos % (Auto) 2.6 (0-4) % Baso % (Auto) 1.1 (0-2) % Lymph # (Auto) 1.7 (1.2-4.9) X10*3/uL [place] # (Auto) 0.5 (0.1-1.2) X10*3/uL Eos # (Auto) 0.1 (0.0-0.4) X10*3/uL Baso # (Auto) 0.1 (0.0-0.2) X10*3/uL Abs Immat Gran (auto) 0.01 (0.00-0.03) X10*3/uL Absolute Neuts (auto) 3.0 (2.0-8.3) x10*3/uL Absolute Nucleated RBC 0.000 (0.0-0.012) X10*3/uL Nucleated RBC % (auto) 0.0 (0.0-0.2) /100WBC Smear Tech's Comments VERIFIED Sodium (135-145) mmol/L Potassium (3.3-5.1) mmol/L Chloride (96-108) mmol/L Carbon Dioxide (22-29) mmol/L Anion Gap (12-20) BUN (9-16) mg/dL Creatinine (0.5-1.4) mg/dL Estim Creat Clear Calc Estimated GFR Random Glucose (60-115) mg/dL Lactic Acid 3.6 H* (0.5-2.0) mmol/L Lactic Acid F/U @ 2Hr (0.5-2.0) mmol/L Calcium (8.4-10.2) mg/dL Magnesium (1.6-2.6) mg/dL Total Bilirubin (0.0-1.0) mg/dL AST (5-37) U/L ALT (0-40) U/L Alkaline Phosphatase (39-117) U/L Ammonia 32 (13-55) umol/L Troponin I High Sens < 2.7 D (<3.5-35.0) ng/L Total Protein (6.5-8.0) g/dL Albumin (3.5-5.0) g/dL Urine Color Urine Appearance Urine pH (5.0-9.0) Ur Specific [place] (1.005-1.025) Urine Protein (Neg-Trace) mg/dL Urine Glucose (UA) (Negative) mg/dL Urine Ketones (Negative) mg/dL Urine Blood (Negative) Urine Nitrite (Negative) Ur Leukocyte Esterase (Negative) Urine Opiates Screen (Not Detect) Ur Buprenorphine Scrn (Not Detect) ng/mL Ur Oxycodone Screen (Not Detect) ng/mL Urine Methadone Screen (Not Detect) ng/mL Urine Fentanyl Screen (Not Detect) Ur Barbiturates Screen (Not Detect) Ur Phencyclidine Scrn (Not Detect) Ur Amphetamines Screen (Not Detect) U Benzodiazepines Scrn (Not Detect) Urine Cocaine Screen (Not Detect) U Marijuana (THC) Screen (Not Detect) Ethyl Alcohol mg/dL Influenza Type A (PCR) NEGATIVE (Negative) Influenza Type B (PCR) NEGATIVE (Negative) RSV RNA Qual (PCR) NEGATIVE (Negative) SARS-CoV-2 RNA (RT-PCR) POSITIVE A (Negative) 02/17/24 02/17/24 02/17/24 Range/Units 16:11 16:11 18:59 WBC (4.8-10.8) X10*3/uL RBC (4.60-5.80) X10*6/uL Hgb (14.0-18.0) g/dl Hct (42.0-52.0) % MCV (80.0-98.0) fL MCH (27.0-33.0) pg MCHC (31.0-36.0) g/dl RDW (11.0-16.0) % Plt Count (160-400) X10*3/uL MPV (9.4-12.4) fL Immature Gran % (Auto) (0.0-0.4) % Neut % (Auto) (45-73) % Lymph % (Auto) (20-40) % [place] % (Auto) (2-11) % Eos % (Auto) (0-4) % Baso % (Auto) (0-2) % Lymph # (Auto) (1.2-4.9) X10*3/uL [place] # (Auto) (0.1-1.2) X10*3/uL Eos # (Auto) (0.0-0.4) X10*3/uL Baso # (Auto) (0.0-0.2) X10*3/uL Abs Immat Gran (auto) (0.00-0.03) X10*3/uL Absolute Neuts (auto) (2.0-8.3) x10*3/uL Absolute Nucleated RBC (0.0-0.012) X10*3/uL Nucleated RBC % (auto) (0.0-0.2) /100WBC Smear Tech's Comments Sodium 139 (135-145) mmol/L Potassium 4.0 D (3.3-5.1) mmol/L Chloride 106 (96-108) mmol/L Carbon Dioxide 21 L (22-29) mmol/L Anion Gap 16 (12-20) BUN 15 (9-16) mg/dL Creatinine 0.90 (0.5-1.4) mg/dL Estim Creat Clear Calc 87.2 Estimated GFR > 60 Random Glucose 95 (60-115) mg/dL Lactic Acid (0.5-2.0) mmol/L Lactic Acid F/U @ 2Hr 1.8 (0.5-2.0) mmol/L Calcium 9.6 D (8.4-10.2) mg/dL Magnesium 2.1 Cancelled (1.6-2.6) mg/dL Total Bilirubin 0.2 (0.0-1.0) mg/dL AST 17 (5-37) U/L ALT 9 (0-40) U/L Alkaline Phosphatase 117 (39-117) U/L Ammonia (13-55) umol/L Troponin I High Sens (<3.5-35.0) ng/L Total Protein 7.9 (6.5-8.0) g/dL Albumin 4.4 (3.5-5.0) g/dL Urine Color Urine Appearance Urine pH (5.0-9.0) Ur Specific [place] (1.005-1.025) Urine Protein (Neg-Trace) mg/dL Urine Glucose (UA) (Negative) mg/dL Urine Ketones (Negative) mg/dL Urine Blood (Negative) Urine Nitrite (Negative) Ur Leukocyte Esterase (Negative) Urine Opiates Screen (Not Detect) Ur Buprenorphine Scrn (Not Detect) ng/mL Ur Oxycodone Screen (Not Detect) ng/mL Urine Methadone Screen (Not Detect) ng/mL Urine Fentanyl Screen (Not Detect) Ur Barbiturates Screen (Not Detect) Ur Phencyclidine Scrn (Not Detect) Ur Amphetamines Screen (Not Detect) U Benzodiazepines Scrn (Not Detect) Urine Cocaine Screen (Not Detect) U Marijuana (THC) Screen (Not Detect) Ethyl Alcohol < 10 mg/dL Influenza Type A (PCR) (Negative) Influenza Type B (PCR) (Negative) RSV RNA Qual (PCR) (Negative) SARS-CoV-2 RNA (RT-PCR) (Negative) 02/17/24 Range/Units 20:41 WBC (4.8-10.8) X10*3/uL RBC (4.60-5.80) X10*6/uL Hgb (14.0-18.0) g/dl Hct (42.0-52.0) % MCV (80.0-98.0) fL MCH (27.0-33.0) pg MCHC (31.0-36.0) g/dl RDW (11.0-16.0) % Plt Count (160-400) X10*3/uL MPV (9.4-12.4) fL Immature Gran % (Auto) (0.0-0.4) % Neut % (Auto) (45-73) % Lymph % (Auto) (20-40) % [place] % (Auto) (2-11) % Eos % (Auto) (0-4) % Baso % (Auto) (0-2) % Lymph # (Auto) (1.2-4.9) X10*3/uL [place] # (Auto) (0.1-1.2) X10*3/uL Eos # (Auto) (0.0-0.4) X10*3/uL Baso # (Auto) (0.0-0.2) X10*3/uL Abs Immat Gran (auto) (0.00-0.03) X10*3/uL Absolute Neuts (auto) (2.0-8.3) x10*3/uL Absolute Nucleated RBC (0.0-0.012) X10*3/uL Nucleated RBC % (auto) (0.0-0.2) /100WBC Smear Tech's Comments Sodium (135-145) mmol/L Potassium (3.3-5.1) mmol/L Chloride (96-108) mmol/L Carbon Dioxide (22-29) mmol/L Anion Gap (12-20) BUN (9-16) mg/dL Creatinine (0.5-1.4) mg/dL Estim Creat Clear Calc Estimated GFR Random Glucose (60-115) mg/dL Lactic Acid (0.5-2.0) mmol/L Lactic Acid F/U @ 2Hr (0.5-2.0) mmol/L Calcium (8.4-10.2) mg/dL Magnesium (1.6-2.6) mg/dL Total Bilirubin (0.0-1.0) mg/dL AST (5-37) U/L ALT (0-40) U/L Alkaline Phosphatase (39-117) U/L Ammonia (13-55) umol/L Troponin I High Sens (<3.5-35.0) ng/L Total Protein (6.5-8.0) g/dL Albumin (3.5-5.0) g/dL Urine Color Yellow Urine Appearance Clear Urine pH 6.0 (5.0-9.0) Ur Specific [place] 1.025 (1.005-1.025) Urine Protein Trace (Neg-Trace) mg/dL Urine Glucose (UA) Negative (Negative) mg/dL Urine Ketones Trace (Negative) mg/dL Urine Blood Negative (Negative) Urine Nitrite Negative (Negative) Ur Leukocyte Esterase Negative (Negative) Urine Opiates Screen Not Detected (Not Detect) Ur Buprenorphine Scrn Positive H (Not Detect) ng/mL Ur Oxycodone Screen Not Detected (Not Detect) ng/mL Urine Methadone Screen Not Detected (Not Detect) ng/mL Urine Fentanyl Screen Not Detected (Not Detect) Ur Barbiturates Screen Not Detected (Not Detect) Ur Phencyclidine Scrn Not Detected (Not Detect) Ur Amphetamines Screen Not Detected (Not Detect) U Benzodiazepines Scrn Not Detected (Not Detect) Urine Cocaine Screen Not Detected (Not Detect) U Marijuana (THC) Screen Not Detected (Not Detect) Ethyl Alcohol mg/dL Influenza Type A (PCR) (Negative) Influenza Type B (PCR) (Negative) RSV RNA Qual (PCR) (Negative) SARS-CoV-2 RNA (RT-PCR) (Negative) Critical Care Time Critical Care Time Critical Care Time: Yes Total Critical Care Time: 49 Attestation: I have personally provided critical care time exclusive of time spent on separately billable procedures. Time includes review of lab data, radiology results, discussion with consultants, and monitoring for potential decompensation. Intervention performed as documented. Discharge Plan Discharge Clinical Impression: New onset seizure, COVID-19 Patient Disposition: Admitted As Inpatient Prescriptions: No Action lisinopril 10 mg tablet 10 mg PO DAILY 30 Days Qty: 30 0RF Eliquis 5 mg tablet 5 mg PO BID 30 Days Qty: 60 0RF Hold Instructions: Resume on 01/24/24. omeprazole 40 mg Capsule,Delayed Release(Dr/Ec) 40 mg PO BID@0630,1630 Qty: 180 0RF sucralfate 100 mg/mL Suspension 1 g PO QIDACHS Qty: 1000 0RF methadone [Methadose] 10 mg/mL Concentrate 20 mg PO DAILY Qty: 30 0RF Print Language: Croatian
--- NOTE | 2024-02-17 15:52 | ECG_ITS ---
Test Reason : seizure Blood Pressure : / mmHG Vent. Rate : 088 BPM Atrial Rate : 088 BPM P-R Int : 152 ms QRS Dur : 094 ms QT Int : 388 ms P-R-T Axes : 045 -04 025 degrees QTc Int : 469 ms Normal sinus rhythm Septal infarct , age undetermined Abnormal ECG No previous ECGs available Referred By: Rubi Enamorado Electronically Signed By:ALFREDO LARSON MD
--- NOTE | 2024-02-17 16:02 | PC.NURSE ---
Adrianne from [facility] requesting updates [phone]
[2024-02-17 16:17] LABS: Troponin-I High Sensitivity < 2.7 ng/L (<3.5-35.0)
[2024-02-17 16:30] LABS: Ammonia 32 umol/L (13-55)
[2024-02-17 16:30] LABS: Imm Gran Abs Auto 0.01 X10*3/uL (0.00-0.03); Imm Gran Pct Auto 0.2 % (0.0-0.4); MANUAL DIFF FLAG SCAN; Monocytes Absolute Auto 0.5 X10*3/uL (0.1-1.2); Monocytes Percent Auto 8.4 % (2-11); PLT CLUMP 1; SCAN SMEAR FLAG 1
[2024-02-17 16:32] LABS: Basophils Absolute Auto 0.1 X10*3/uL (0.0-0.2); Basophils Percent Auto 1.1 % (0-2); Eosinophils Absolute Auto 0.1 X10*3/uL (0.0-0.4); Eosinophils Percent Auto 2.6 % (0-4); Hematocrit 32.3 % (42.0-52.0); Hemoglobin 10.2 g/dl (14.0-18.0); Lymphocytes Absolute Auto 1.7 X10*3/uL (1.2-4.9); Lymphocytes Percent Auto 31.9 % (20-40); Mean Corpuscular HGB Conc 31.6 g/dl (31.0-36.0); Mean Corpuscular Hemoglobin 25.6 pg (27.0-33.0); Mean Platelet Volume 10.7 fL (9.4-12.4); Neutrophils Percent Auto 55.8 % (45-73); Red Blood Count 3.99 X10*6/uL (4.60-5.80); Red Cell Distribution Width 13.9 % (11.0-16.0); White Blood Count 5.4 X10*3/uL (4.8-10.8)
[2024-02-17 16:33] LABS: Alanine Aminotransferase 9 U/L (0-40); Albumin Level 4.4 g/dL (3.5-5.0); Alkaline Phosphatase 117 U/L (39-117); Anion Gap 16 (12-20); Aspartate Amino Transferase 17 U/L (5-37); Bilirubin Total 0.2 mg/dL (0.0-1.0); Blood Urea Nitrogen 15 mg/dL (9-16); Calcium 9.6 mg/dL (8.4-10.2); Carbon Dioxide 21 mmol/L (22-29); Chloride 106 mmol/L (96-108); Creatinine Clr Calc Pharmacy 87.2; Estimated Glomerular Filt Rate > 60; Glucose Random 95 mg/dL (60-115); Magnesium 2.1 mg/dL (1.6-2.6); Sodium 139 mmol/L (135-145); Total Protein 7.9 g/dL (6.5-8.0)
[2024-02-17 16:34] LABS: Ethanol < 10 mg/dL
[2024-02-17 16:43] LABS: Lactic Acid 3.6 mmol/L (0.5-2.0)
[2024-02-17] MEDS: LORazepam 2 MG/ML VIAL IVPUSH (16:47)
[2024-02-17] MEDS: 0.9 % Sodium Chloride 1,000 ML 999 ML IV (16:50)
[2024-02-17 16:58] LABS: Influenza A PCR NEGATIVE (Negative); Influenza B PCR NEGATIVE (Negative); Resp Syncy Virus RNA Qual PCR NEGATIVE (Negative); SARS COV2 PCR INHOUSE POSITIVE (Negative)
[2024-02-17 17:19] LABS: Platelet Count 243 X10*3/uL (160-400); SLIDE REVIEW VERIFIED
--- NOTE | 2024-02-17 17:22 | MHC.EDTECH ---
This tech attempted to perform EKG on pt multiple times prior however, EKG machines was unavailable for sometime due to high volume. When tech obtained the machine pt was actively seizing and needed to be taken to CT scan. EKG was delayed due to series of events.
[2024-02-17 18:13] LABS: Reflex Lactate? Lactic Acid Added
[2024-02-17 18:19] VITALS: BP 140/79; PULSE 73; RESP 17; O2SAT 100
[2024-02-17 19:23] LABS: ~Lactic Acid-LAB USE ONLY 1.8 mmol/L (0.5-2.0)
[2024-02-17 20:50] LABS: Appearance Urine Clear; Color Urine Yellow; Glucose Urine UA Negative (Negative); Leukocyte Esterase Urine Negative (Negative); Nitrite Urine Negative (Negative); Specific Gravity - Urine 1.025 (1.005-1.025); Urine Blood Negative (Negative); Urine Ketones Trace mg/dL (Negative); Urine Protein Trace mg/dL (Neg-Trace)
[2024-02-17 20:52] VITALS: BP 142/75; PULSE 81; RESP 16; TEMP 36.9; O2SAT 98
[2024-02-17 20:58] LABS: Amphetamine Screen Urine Not Detected (Not Detect); Barbiturates, Urine Not Detected (Not Detect); Benzodiazepines Screen Urine Not Detected (Not Detect); Buprenorphine Scr Positive (Not Detect); Cannabinoid Screen Urine Not Detected (Not Detect); Cocaine Screen Urine Not Detected (Not Detect); Fentanyl, urine Not Detected (Not Detect); Methadone Screen, Urine Not Detected (Not Detect); Opiate Screen Urine Not Detected (Not Detect); Oxycodone Screen Urine Not Detected (Not Detect); Phencyclidine Screen Urine Not Detected (Not Detect)
[2024-02-17] MEDS: levETIRAcetam in NaCl (iso-os) 1,500 MG/100 ML PIGGYBACK 400 MG IV (20:59)
--- NOTE | 2024-02-17 21:11 | PM.IMHP ---
History of Present Illness Date of Service: 02/17/24 Chief Complaint: seizure 58M PMH etoh dependence (reports 1 month soberiety in sober home), polysubstance dependence, htn, PE, mood disorder, history of etoh cardiomyopathy with recovered EF, PUD, presented with witnessed tonoclonic movements while in Sober house. Patient states he has not had a drink since being there over a month. Denies any history of seizures. Incidentally found to be COVID positive, denies any COVID symptoms. Review of Systems Review of Systems: Yes all other systems are reviewed and are negative [facility] Medical History Substance abuse EtOH dependence Hypertension Family History Father Stomach cancer Surgical History Hx of endoscopy History of total right hip replacement Social History Household Members: Family Housing: House Do you presently have visiting nurse or other home services: No Alcohol intake: current Alcohol intake frequency: 3 or more drinks per day Alcohol type: hard liquor Comment: 1:1 Patient Tobacco Use Status: Former Tobacco user Tobacco use type: Cigarette Cigarettes Per Day: 5 Years Smoked: 20 e-Cigarette/Vaping Use: Former Use Second Hand Smoke Exposure: Yes Substance Use Type: Heroin Advance Directives: No Advance Directives Information Provided: No Do you have a plan to hurt others: No Plan service: No Current occupational status: unemployed Sexual orientation: Straight/Heterosexual Meds Allergies Allergy/AdvReac Type Severity Reaction Status Date / Time bee pollen [BEE STINGS] Allergy Severe SWELLING Verified 02/17/24 15:30 Physical Exam Vital Signs and Narrative: Vital Signs: Last Vital Signs Temp 98.4 F 02/17/24 20:52 Pulse 81 02/17/24 20:52 Resp 16 02/17/24 20:52 BP 142/75 H 02/17/24 20:52 Pulse Ox 98 02/17/24 20:52 O2 Del Method Room Air 02/17/24 20:52 BMI result Body Mass Index 21.5 General: AO X 3, no acute distress Resp: CTA bilateral, no accessory muscles used CVS: S1,S2,RRR GI: soft, non tender, non distended Neuro: motor grossly intact, alert Psych: appropriate affect, appropriate insight Results Labs 02/17/24 16:05 02/17/24 16:11 Labs: Laboratory Results - last 24 hr 02/17/24 02/17/24 02/17/24 15:51 16:04 16:05 MCV 81.0 MCH 25.6 L MCHC 31.6 RDW 13.9 Plt Count 243 MPV 10.7 Immature Gran % (Auto) 0.2 Neut % (Auto) 55.8 Lymph % (Auto) 31.9 [place] % (Auto) 8.4 Eos % (Auto) 2.6 Baso % (Auto) 1.1 Lymph # (Auto) 1.7 [place] # (Auto) 0.5 Eos # (Auto) 0.1 Baso # (Auto) 0.1 Abs Immat Gran (auto) 0.01 Absolute Neuts (auto) 3.0 Absolute Nucleated RBC 0.000 Nucleated RBC % (auto) 0.0 Smear Tech's Comments VERIFIED Anion Gap Estim Creat Clear Calc Estimated GFR Random Glucose Lactic Acid 3.6 H* Lactic Acid F/U @ 2Hr Calcium Magnesium Total Bilirubin AST ALT Alkaline Phosphatase Ammonia 32 Troponin I High Sens < 2.7 D Total Protein Albumin Urine Color Urine Appearance Urine pH Ur Specific [place] Urine Protein Urine Glucose (UA) Urine Ketones Urine Blood Urine Nitrite Ur Leukocyte Esterase Urine Opiates Screen Ur Buprenorphine Scrn Ur Oxycodone Screen Urine Methadone Screen Urine Fentanyl Screen Ur Barbiturates Screen Ur Phencyclidine Scrn Ur Amphetamines Screen U Benzodiazepines Scrn Urine Cocaine Screen U Marijuana (THC) Screen Ethyl Alcohol Influenza Type A (PCR) NEGATIVE Influenza Type B (PCR) NEGATIVE RSV RNA Qual (PCR) NEGATIVE SARS-CoV-2 RNA (RT-PCR) POSITIVE A 02/17/24 02/17/24 02/17/24 16:11 16:11 18:59 MCV MCH MCHC RDW Plt Count MPV Immature Gran % (Auto) Neut % (Auto) Lymph % (Auto) [place] % (Auto) Eos % (Auto) Baso % (Auto) Lymph # (Auto) [place] # (Auto) Eos # (Auto) Baso # (Auto) Abs Immat Gran (auto) Absolute Neuts (auto) Absolute Nucleated RBC Nucleated RBC % (auto) Smear Tech's Comments Anion Gap 16 Estim Creat Clear Calc 87.2 Estimated GFR > 60 Random Glucose 95 Lactic Acid Lactic Acid F/U @ 2Hr 1.8 Calcium 9.6 D Magnesium 2.1 Cancelled Total Bilirubin 0.2 AST 17 ALT 9 Alkaline Phosphatase 117 Ammonia Troponin I High Sens Total Protein 7.9 Albumin 4.4 Urine Color Urine Appearance Urine pH Ur Specific [place] Urine Protein Urine Glucose (UA) Urine Ketones Urine Blood Urine Nitrite Ur Leukocyte Esterase Urine Opiates Screen Ur Buprenorphine Scrn Ur Oxycodone Screen Urine Methadone Screen Urine Fentanyl Screen Ur Barbiturates Screen Ur Phencyclidine Scrn Ur Amphetamines Screen U Benzodiazepines Scrn Urine Cocaine Screen U Marijuana (THC) Screen Ethyl Alcohol < 10 Influenza Type A (PCR) Influenza Type B (PCR) RSV RNA Qual (PCR) SARS-CoV-2 RNA (RT-PCR) 02/17/24 20:41 MCV MCH MCHC RDW Plt Count MPV Immature Gran % (Auto) Neut % (Auto) Lymph % (Auto) [place] % (Auto) Eos % (Auto) Baso % (Auto) Lymph # (Auto) [place] # (Auto) Eos # (Auto) Baso # (Auto) Abs Immat Gran (auto) Absolute Neuts (auto) Absolute Nucleated RBC Nucleated RBC % (auto) Smear Tech's Comments Anion Gap Estim Creat Clear Calc Estimated GFR Random Glucose Lactic Acid Lactic Acid F/U @ 2Hr Calcium Magnesium Total Bilirubin AST ALT Alkaline Phosphatase Ammonia Troponin I High Sens Total Protein Albumin Urine Color Yellow Urine Appearance Clear Urine pH 6.0 Ur Specific [place] 1.025 Urine Protein Trace Urine Glucose (UA) Negative Urine Ketones Trace Urine Blood Negative Urine Nitrite Negative Ur Leukocyte Esterase Negative Urine Opiates Screen Not Detected Ur Buprenorphine Scrn Positive H Ur Oxycodone Screen Not Detected Urine Methadone Screen Not Detected Urine Fentanyl Screen Not Detected Ur Barbiturates Screen Not Detected Ur Phencyclidine Scrn Not Detected Ur Amphetamines Screen Not Detected U Benzodiazepines Scrn Not Detected Urine Cocaine Screen Not Detected U Marijuana (THC) Screen Not Detected Ethyl Alcohol Influenza Type A (PCR) Influenza Type B (PCR) RSV RNA Qual (PCR) SARS-CoV-2 RNA (RT-PCR) Imaging Radiologist's Impressions: Impressions Chest X-Ray 02/17/24 17:07 IMPRESSION: No acute abnormality of the chest. Cervical Spine CT 02/17/24 17:34 IMPRESSION: 1. No acute intracranial pathology. 2. No CT evidence of acute cervical spine fracture or traumatic subluxation Head CT 02/17/24 17:34 IMPRESSION: 1. No acute intracranial pathology. 2. No CT evidence of acute cervical spine fracture or traumatic subluxation Assessment and Plan (1) Alcohol use disorder, severe, dependence: Status: Acute Plan 58M PMH etoh dependence (reports 1 month soberiety in sober home), polysubstance dependence, htn, PE, mood disorder, history of etoh cardiomyopathy with recovered EF, PUD, presented with witnessed tonoclonic movements New onset seizure Does not appear to be alcohol withdrawal Neuro eval, EEG, seizure precautions, Ativan p.r.n. Loaded with Keppra in ED, will defer to Neurology for further treatment MRI brain with and without contrast History of pulmonary embolism Was previously on apixaban States that it was discontinued, however, appears to have been non provoked and previous recommendations were to hold for 1 week post GI bleed and then to restart, will restart apixaban History of PUD Continue omeprazole Polysubstance dependence Restart methadone when confirmed Addiction team eval Hypertension Lisinopril DVT prophylaxis on apixaban Full code Quality Stroke Does the patient have a stroke diagnosis?: No VTE Prior VTE?: Yes VTE Risk Level:: Medical - moderate - high VTE Device Contraindication: Treatment Not Indicated VTE Drug Contraindication: N/A - Med Ordered
--- NOTE | 2024-02-17 21:51 | PC.NURSE ---
spoke with Adrianne who is tennis professional supervisor mirror fabrication at [facility], gave her update that patient will be admitted to hospital for further evaluation of seizures. pt agreeable to plan at this time however presents with slight confusion and needs redirection as to where is is/why he is in hospital at times. pt given jello as requested, keppra iv administered, pt is on cardiac cath rn, call michel within reach. plan of care ongoing.
[2024-02-18 00:50] VITALS: BP 106/66; PULSE 73; RESP 12; TEMP 36.8; O2SAT 97
--- NOTE | 2024-02-18 01:26 | PC.NURSE ---
pt ambulated to and from bathroom with a steady gait, one staff nearby assist. pt denied SANCHEZ, dizziness, lightheadedness, etc. States he is just tired.
[2024-02-18 05:50] LABS: Hematocrit 28.2 % (42.0-52.0); Hemoglobin 9.1 g/dl (14.0-18.0); Mean Corpuscular HGB Conc 32.3 g/dl (31.0-36.0); Mean Corpuscular Hemoglobin 25.7 pg (27.0-33.0); Mean Corpuscular Volume 79.7 fL (80.0-98.0); Mean Platelet Volume 9.4 fL (9.4-12.4); Platelet Count 313 X10*3/uL (160-400); Red Blood Count 3.54 X10*6/uL (4.60-5.80); Red Cell Distribution Width 14.1 % (11.0-16.0); White Blood Count 7.1 X10*3/uL (4.8-10.8)
[2024-02-18 05:59] VITALS: BP 143/64; PULSE 84; RESP 16; TEMP 36.6; O2SAT 97
[2024-02-18 06:07] LABS: Anion Gap 12 (12-20); Blood Urea Nitrogen 12 mg/dL (9-16); Calcium 8.8 mg/dL (8.4-10.2); Carbon Dioxide 25 mmol/L (22-29); Chloride 108 mmol/L (96-108); Creatinine Clr Calc Pharmacy 113.8; Estimated Glomerular Filt Rate > 60; Glucose Fasting 93 mg/dL (60-99); Potassium 3.5 mmol/L (3.3-5.1); Sodium 141 mmol/L (135-145)
[2024-02-18] MEDS: Omeprazole 40 MG CAPSULE.DR PO ×2 (07:47→15:40)
[2024-02-18] MEDS: 0.9 % Sodium Chloride Flush 3 ML SYRINGE IVFLUSH ×2 (07:47→17:33)
[2024-02-18 08:33] VITALS: BP 118/67
[2024-02-18] MEDS: lisinopriL 10 MG TABLET PO (08:33)
--- NOTE | 2024-02-18 08:53 | PC.NURSE ---
Pt refused his Eliquis this morning, reports I don't take that anymore .
--- NOTE | 2024-02-18 08:54 | PC.NURSE ---
Pt is alert and oriented, breathing even and unlabored, skin warm and dry. pt in his sweatpants and sweatshirt, refuses to change in hospital clothes due to comfort, night RN tried 3X. NSR on bedside cardiac technologist, VSS. Seizure precautions in place. Pt has no pain
--- NOTE | 2024-02-18 09:28 | P.PNIM_ITS ---
Subjective Subjective Date of Service: 02/18/24 Interval History: f/u on seizures no further seizure Physical Exam 2 Vital Signs: Vital Signs: Last Vital Signs Temp 97.9 F 02/18/24 05:59 Pulse 84 02/18/24 05:59 Resp 16 02/18/24 05:59 BP 118/67 02/18/24 08:33 Pulse Ox 97 02/18/24 05:59 O2 Del Method Room Air 02/18/24 05:59 BMI result Body Mass Index 21.5 General: AO X 3, no acute distress Resp: CTA bilateral CVS: S1,S2,RRR GI: +BS, NT, no distention Skin: No rash Neuro: motor grossly intact Psych: appropriate affect Objective Data Active Medications Acetaminophen (Acetaminophen 325 Mg Tablet) 650 mg PO Q6H PRN PRN Reason: Pain, Mild (Pain Scale 1-3), fever or headache Apixaban (Apixaban 5 Mg Tablet) 5 mg PO BID [facility] Last Admin: 02/18/24 08:34 Dose: Not Given Documented By: MONTEZ Non-Admin Reason: Patient Refused Calcium Carbonate (Calcium Carbonate 750 Mg Tab.Chew) 750 mg PO Q4H PRN PRN Reason: Heartburn Lisinopril (Lisinopril 10 Mg Tablet) 10 mg PO DAILY [facility]; Protocol Last Admin: 02/18/24 08:33 Dose: 10 mg Documented By: MONTEZ Lorazepam (Lorazepam 2 Mg/Ml Vial) 2 mg IVPUSH Q4H PRN PRN Reason: Seizures Magnesium Hydroxide (Milk Of Magnesia 30 Ml Oral.Susp) 30 ml PO DAILY PRN PRN Reason: Constipation Melatonin (Melatonin 3 Mg Tablet) 6 mg PO BEDTIME PRN PRN Reason: Insomnia Omeprazole (Omeprazole 40 Mg Capsule.Dr) 40 mg PO BID@0630,1630 [facility] Last Admin: 02/18/24 07:47 Dose: 40 mg Documented By: MONTEZ Sodium Chloride (0.9 % Sodium Chloride Flush 3 Ml Syringe) 3 ml IVFLUSH QSHIFT [facility] Last Admin: 02/18/24 07:47 Dose: 3 ml Documented By: MONTEZ Labs 02/18/24 05:37 02/18/24 05:37 Labs: Laboratory Results - last 24 hr 02/17/24 02/17/2402/16/24 15:51 16:04 16:05 MCV 81.0 MCH 25.6 L MCHC 31.6 RDW 13.9 Plt Count 243 MPV 10.7 Immature Gran % (Auto) 0.2 Neut % (Auto) 55.8 Lymph % (Auto) 31.9 [place] % (Auto) 8.4 Eos % (Auto) 2.6 Baso % (Auto) 1.1 Lymph # (Auto) 1.7 [place] # (Auto) 0.5 Eos # (Auto) 0.1 Baso # (Auto) 0.1 Abs Immat Gran (auto) 0.01 Absolute Neuts (auto) 3.0 Absolute Nucleated RBC 0.000 Nucleated RBC % (auto) 0.0 Smear Tech's Comments VERIFIED Anion Gap Estim Creat Clear Calc Estimated GFR Random Glucose Fasting Glucose Lactic Acid 3.6 H* Lactic Acid F/U @ 2Hr Calcium Magnesium Total Bilirubin AST ALT Alkaline Phosphatase Ammonia 32 Troponin I High Sens < 2.7 D Total Protein Albumin Urine Color Urine Appearance Urine pH Ur Specific [place] Urine Protein Urine Glucose (UA) Urine Ketones Urine Blood Urine Nitrite Ur Leukocyte Esterase Urine Opiates Screen Ur Buprenorphine Scrn Ur Oxycodone Screen Urine Methadone Screen Urine Fentanyl Screen Ur Barbiturates Screen Ur Phencyclidine Scrn Ur Amphetamines Screen U Benzodiazepines Scrn Urine Cocaine Screen U Marijuana (THC) Screen Ethyl Alcohol Influenza Type A (PCR) NEGATIVE Influenza Type B (PCR) NEGATIVE RSV RNA Qual (PCR) NEGATIVE SARS-CoV-2 RNA (RT-PCR) POSITIVE A 02/17/24 02/17/24 02/17/24 16:11 16:11 18:59 MCV MCH MCHC RDW Plt Count MPV Immature Gran % (Auto) Neut % (Auto) Lymph % (Auto) [place] % (Auto) Eos % (Auto) Baso % (Auto) Lymph # (Auto) [place] # (Auto) Eos # (Auto) Baso # (Auto) Abs Immat Gran (auto) Absolute Neuts (auto) Absolute Nucleated RBC Nucleated RBC % (auto) Smear Tech's Comments Anion Gap 16 Estim Creat Clear Calc 87.2 Estimated GFR > 60 Random Glucose 95 Fasting Glucose Lactic Acid Lactic Acid F/U @ 2Hr 1.8 Calcium 9.6 D Magnesium 2.1 Cancelled Total Bilirubin 0.2 AST 17 ALT 9 Alkaline Phosphatase 117 Ammonia Troponin I High Sens Total Protein 7.9 Albumin 4.4 Urine Color Urine Appearance Urine pH Ur Specific [place] Urine Protein Urine Glucose (UA) Urine Ketones Urine Blood Urine Nitrite Ur Leukocyte Esterase Urine Opiates Screen Ur Buprenorphine Scrn Ur Oxycodone Screen Urine Methadone Screen Urine Fentanyl Screen Ur Barbiturates Screen Ur Phencyclidine Scrn Ur Amphetamines Screen U Benzodiazepines Scrn Urine Cocaine Screen U Marijuana (THC) Screen Ethyl Alcohol < 10 Influenza Type A (PCR) Influenza Type B (PCR) RSV RNA Qual (PCR) SARS-CoV-2 RNA (RT-PCR) 02/17/24 02/18/24 20:41 05:37 MCV 79.7 L MCH 25.7 L MCHC 32.3 RDW 14.1 Plt Count 313 D MPV 9.4 Immature Gran % (Auto) Neut % (Auto) Lymph % (Auto) [place] % (Auto) Eos % (Auto) Baso % (Auto) Lymph # (Auto) [place] # (Auto) Eos # (Auto) Baso # (Auto) Abs Immat Gran (auto) Absolute Neuts (auto) Absolute Nucleated RBC 0.000 Nucleated RBC % (auto) 0.0 Smear Tech's Comments Anion Gap 12 Estim Creat Clear Calc 113.8 Estimated GFR > 60 Random Glucose Fasting Glucose 93 Lactic Acid Lactic Acid F/U @ 2Hr Calcium 8.8 D Magnesium Total Bilirubin AST ALT Alkaline Phosphatase Ammonia Troponin I High Sens Total Protein Albumin Urine Color Yellow Urine Appearance Clear Urine pH 6.0 Ur Specific [place] 1.025 Urine Protein Trace Urine Glucose (UA) Negative Urine Ketones Trace Urine Blood Negative Urine Nitrite Negative Ur Leukocyte Esterase Negative Urine Opiates Screen Not Detected Ur Buprenorphine Scrn Positive H Ur Oxycodone Screen Not Detected Urine Methadone Screen Not Detected Urine Fentanyl Screen Not Detected Ur Barbiturates Screen Not Detected Ur Phencyclidine Scrn Not Detected Ur Amphetamines Screen Not Detected U Benzodiazepines Scrn Not Detected Urine Cocaine Screen Not Detected U Marijuana (THC) Screen Not Detected Ethyl Alcohol Influenza Type A (PCR) Influenza Type B (PCR) RSV RNA Qual (PCR) SARS-CoV-2 RNA (RT-PCR) Assessment and Plan (1) COVID-19: Status: Acute (2) New onset seizure: Status: Acute Plan 58M PMH etoh dependence (reports 1 month soberiety in sober home), polysubstance dependence, htn, PE, mood disorder, history of etoh cardiomyopathy with recovered EF, PUD, presented with witnessed tonoclonic movements New onset seizure Does not appear to be alcohol withdrawal Neuro eval, EEG, seizure precautions, Ativan p.r.n. Loaded with Keppra in ED, continue 500 bid MRI brain with and without contrast History of pulmonary embolism Was previously on apixaban States that it was discontinued, however, appears to have been non provoked and previous recommendations were to hold for 1 week post GI bleed and then to restart, will restart apixaban History of PUD Continue omeprazole Polysubstance dependence Restart methadone when confirmed Addiction team eval Hypertension Lisinopril DVT prophylaxis on apixaban Full code need for inpatient:new [facility] work up Quality Stroke Does the patient have a stroke diagnosis?: No VTE Prior VTE?: Yes VTE Risk Level:: Medical - moderate - high VTE Device Contraindication: Treatment Not Indicated VTE Drug Contraindication: N/A - Med Ordered
[2024-02-18] MEDS: levETIRAcetam 500 MG TABLET PO ×2 (09:47→21:19)
--- NOTE | 2024-02-18 10:20 | P.DS_ITS ---
DS: Providers Provider Date of Service: 02/19/24 Date of admission: 02/17/24 21:06 Date of discharge: 02/19/24 Primary care physician: Maximo Morfin MD Consults: 02/17/24 21:06 Consult to Neurology Routine Consulting Provider: [facility] Reason for consultation: seizure 02/17/24 21:14 Addiction Medicine Routine Consulting Provider: Addiction Covering Reason for consultation: etoh, opiate, cocaine hsitory DS: Diagnosis Discharge Diagnosis (1) COVID-19: Status: Acute (2) New onset seizure: Status: Acute DS: Summary Hospital Course Hospital Course: Chief Complaint: seizure 58M PMH etoh dependence (reports 1 month soberiety in sober home), polysubstance dependence, htn, PE, mood disorder, history of etoh cardiomyopathy with recovered EF, PUD, presented with witnessed tonoclonic movements while in Sober house. Patient states he has not had a drink since being there over a month. Denies any history of seizures. Incidentally found to be COVID positive, denies any COVID symptoms. hospital course: He presented with a new onset of seizures. He denies alcohol use for over a month. A CT scan of the head is unremarkable, and his electrolytes are normal. He has been started on Keppra and will continue this medication. Neurology recommends Keppra 500 mg twice daily, an outpatient EEG, and advises against driving, swimming, using a hot tub alone, or engaging in other activities that could endanger his life in the event of a seizure. An MRI of the head has been performed. No acute intracranial hemorrhage or infarct. -Loss of flow void involving the images show right cervical ICA and spanning through the right petrous and cavernous ICA, most suggestive of occlusion. -Left frontotemporal convexity extra-axial mass, favored to represent a meningioma. -Moderate chronic microangiopathy and global cerebral volume loss. A carotid US showed 1. RIGHT: The right proximal ICA through the distal ICA are occluded 2. LEFT: Moderate, hemodynamically significant stenosis of the proximal left internal carotid artery corresponding to a 50-79% stenosis by velocity criteria. Patient would not were to discussed the result and the appropriate follow up, he left against advised. I will add outpatient vascular surgery follow up Time Attestation Discharge Coordination Time (in mins): 25 Quality: Safe Use of Opioids Does Pt have an Active Cancer Diagnosis on the Problem List?: No Quality: Stroke Does the patient have a stroke diagnosis?: No Physical Exam Vital Signs: Vital Signs: Selected Entries 02/19/24 07:03 Temperature 98.0 F Pulse Rate 74 Respiratory Rate 20 Blood Pressure 101/55 L Pulse Oximetry 99 Oxygen Delivery Me thod Room Air DS: Data Data Completed and Pending Labs on day of discharge: Laboratory Results - last 24 hr 02/17/24 02/17/24 02/17/24 15:51 16:04 16:05 WBC 5.4 RBC 3.99 L Hgb 10.2 L Hct 32.3 L MCV 81.0 MCH 25.6 L MCHC 31.6 RDW 13.9 Plt Count 243 MPV 10.7 Immature Gran % (Auto) 0.2 Neut % (Auto) 55.8 Lymph % (Auto) 31.9 [place] % (Auto) 8.4 Eos % (Auto) 2.6 Baso % (Auto) 1.1 Lymph # (Auto) 1.7 [place] # (Auto) 0.5 Eos # (Auto) 0.1 Baso # (Auto) 0.1 Abs Immat Gran (auto) 0.01 Absolute Neuts (auto) 3.0 Absolute Nucleated RBC 0.000 Nucleated RBC % (auto) 0.0 Smear Tech's Comments VERIFIED Sodium Potassium Chloride Carbon Dioxide Anion Gap BUN Creatinine Estim Creat Clear Calc Estimated GFR Random Glucose Fasting Glucose Lactic Acid 3.6 H* Lactic Acid F/U @ 2Hr Calcium Magnesium Total Bilirubin AST ALT Alkaline Phosphatase Ammonia 32 Troponin I High Sens < 2.7 D Total Protein Albumin Urine Color Urine Appearance Urine pH Ur Specific [place] Urine Protein Urine Glucose (UA) Urine Ketones Urine Blood Urine Nitrite Ur Leukocyte Esterase Urine Opiates Screen Ur Buprenorphine Scrn Ur Oxycodone Screen Urine Methadone Screen Urine Fentanyl Screen Ur Barbiturates Screen Ur Phencyclidine Scrn Ur Amphetamines Screen U Benzodiazepines Scrn Urine Cocaine Screen U Marijuana (THC) Screen Ethyl Alcohol Influenza Type A (PCR) NEGATIVE Influenza Type B (PCR) NEGATIVE RSV RNA Qual (PCR) NEGATIVE SARS-CoV-2 RNA (RT-PCR) POSITIVE A 02/17/24 02/17/24 02/17/24 16:11 16:11 18:59 WBC RBC Hgb Hct MCV MCH MCHC RDW Plt Count MPV Immature Gran % (Auto) Neut % (Auto) Lymph % (Auto) [place] % (Auto) Eos % (Auto) Baso % (Auto) Lymph # (Auto) [place] # (Auto) Eos # (Auto) Baso # (Auto) Abs Immat Gran (auto) Absolute Neuts (auto) Absolute Nucleated RBC Nucleated RBC % (auto) Smear Tech's Comments Sodium 139 Potassium 4.0 D Chloride 106 Carbon Dioxide 21 L Anion Gap 16 BUN 15 Creatinine 0.90 Estim Creat Clear Calc 87.2 Estimated GFR > 60 Random Glucose 95 Fasting Glucose Lactic Acid Lactic Acid F/U @ 2Hr 1.8 Calcium 9.6 D Magnesium 2.1 Cancelled Total Bilirubin 0.2 AST 17 ALT 9 Alkaline Phosphatase 117 Ammonia Troponin I High Sens Total Protein 7.9 Albumin 4.4 Urine Color Urine Appearance Urine pH Ur Specific [place] Urine Protein Urine Glucose (UA) Urine Ketones Urine Blood Urine Nitrite Ur Leukocyte Esterase Urine Opiates Screen Ur Buprenorphine Scrn Ur Oxycodone Screen Urine Methadone Screen Urine Fentanyl Screen Ur Barbiturates Screen Ur Phencyclidine Scrn Ur Amphetamines Screen U Benzodiazepines Scrn Urine Cocaine Screen U Marijuana (THC) Screen Ethyl Alcohol < 10 Influenza Type A (PCR) Influenza Type B (PCR) RSV RNA Qual (PCR) SARS-CoV-2 RNA (RT-PCR) 02/17/24 02/18/24 20:41 05:37 WBC 7.1 RBC 3.54 L Hgb 9.1 L Hct 28.2 L MCV 79.7 L MCH 25.7 L MCHC 32.3 RDW 14.1 Plt Count 313 D MPV 9.4 Immature Gran % (Auto) Neut % (Auto) Lymph % (Auto) [place] % (Auto) Eos % (Auto) Baso % (Auto) Lymph # (Auto) [place] # (Auto) Eos # (Auto) Baso # (Auto) Abs Immat Gran (auto) Absolute Neuts (auto) Absolute Nucleated RBC 0.000 Nucleated RBC % (auto) 0.0 Smear Tech's Comments Sodium 141 Potassium 3.5 Chloride 108 Carbon Dioxide 25 Anion Gap 12 BUN 12 Creatinine 0.69 Estim Creat Clear Calc 113.8 Estimated GFR > 60 Random Glucose Fasting Glucose 93 Lactic Acid Lactic Acid F/U @ 2Hr Calcium 8.8 D Magnesium Total Bilirubin AST ALT Alkaline Phosphatase Ammonia Troponin I High Sens Total Protein Albumin Urine Color Yellow Urine Appearance Clear Urine pH 6.0 Ur Specific [place] 1.025 Urine Protein Trace Urine Glucose (UA) Negative Urine Ketones Trace Urine Blood Negative Urine Nitrite Negative Ur Leukocyte Esterase Negative Urine Opiates Screen Not Detected Ur Buprenorphine Scrn Positive H Ur Oxycodone Screen Not Detected Urine Methadone Screen Not Detected Urine Fentanyl Screen Not Detected Ur Barbiturates Screen Not Detected Ur Phencyclidine Scrn Not Detected Ur Amphetamines Screen Not Detected U Benzodiazepines Scrn Not Detected Urine Cocaine Screen Not Detected U Marijuana (THC) Screen Not Detected Ethyl Alcohol Influenza Type A (PCR) Influenza Type B (PCR) RSV RNA Qual (PCR) SARS-CoV-2 RNA (RT-PCR) Discharge Plan Discharge Anticipated Discharge Date/Time: 02/19/24 07:37 Patient Disposition: Left Against Medical Advice Discharge Diagnosis: New seizure, covid Referrals: Mxaimo Morfin MD [Primary Care Provider] - 1 Week Kvng Piper MD [Physician] - 2 Weeks Jan Shah MD [Physician] - 1 Week (carotid stenosis) Discharge Medications: New levetiracetam 500 mg Tablet 500 mg PO BID Qty: 180 0RF Continued lisinopril 10 mg tablet 10 mg PO DAILY 30 Days Qty: 30 0RF hydroxyzine HCl 50 mg tablet 50 mg PO Q12H melatonin 3 mg tablet 6 mg PO BEDTIME PRN (Reason: Sleep) buprenorphine-naloxone [Suboxone] 4-1 mg Film 1 film [place] DAILY Rx Instructions: place 1 strip/tab under (each) side of tongue acetaminophen 325 mg Tablet 325 mg PO DAILY PRN (Reason: Pain) omeprazole 40 mg Capsule,Delayed Release(Dr/Ec) 40 mg PO BID@0630,1630 Qty: 180 0RF Discharge Orders: Discharge Order (Routine); Ordered 02/19/24 Ordered By: Santiago Miramontes Diet: Advance to usual diet Activity on Discharge: As tolerated Stand Alone Forms: Patient Portal Discharge page, Work/School Release Print Language: Malay Care Plan Goals: full seizue work up and management Health Concerns: seizure Plan of Treatment: Take Keppra as recommended you will have EEG done later - Do not drive until you have been seizure-free for 6 months. - Avoid swimming or being alone in a bathtub or other activities that endenger your life if seizure was to happen -follow up with your doctor in a week -Follow up with the neurologist Dr. Piper Carotid ultrasound was done to assess possible carotid artery occlusion, he would not wait to discuss the result and apropriate follow-up, will refer to outpatient vascular surgey evaluation--outpatient vascular surgery eval Assessment: See above Discharge Date/Time: 02/19/24 12:00
[2024-02-18 10:59] VITALS: BMI 21.2
[2024-02-18 11:07] VITALS: BP 123/69; PULSE 73; RESP 16; TEMP 36.6; O2SAT 96
--- NOTE | 2024-02-18 11:20 | P.CNNE_ITS ---
History of Present Illness Data of Consult Service Date: 02/18/24 Primary Care Provider: Maximo Morfin MD [facility] Reason for consult: Seizure 58 years old man with history of alcohol abuse now being treated and he has not taken alcohol for few weeks, pulmonary embolism treated with anticoagulation, and pain medicine abuse was brought to hospital after he had what was described as generalized tonic-clonic seizure. He was not known to have seizures. He did not know what happened. Was back to baseline. He denied previous history of either seizure or head injury. Review of Systems 2 Review of Systems: No recent cold or flu-like illness or head trauma PMFSH Past Medical History Medical History Substance abuse EtOH dependence Hypertension Family History Family History Father Stomach cancer Surgical History Surgical History Hx of endoscopy History of total right hip replacement Social History Social History Household Members: Family Housing: House Do you presently have visiting nurse or other home services: No Alcohol intake: former Comment: 1:1 Patient Tobacco Use Status: Former Tobacco user Tobacco use type: Cigarette Cigarettes Per Day: 5 Years Smoked: 20 Smoked in Last 30 Days: No e-Cigarette/Vaping Use: Former Use Second Hand Smoke Exposure: Yes Use of substances other than those prescribed or required for medical reasons: No Substance Use Type: Heroin Advance Directives: No Advance Directives Information Provided: No Do you have a plan to hurt others: No Plan Nutrition Risks: No Nutritional Risk service: No Current occupational status: unemployed Sexual orientation: Straight/Heterosexual Meds Allergies Allergy/AdvReac Type Severity Reaction Status Date / Time bee pollen [BEE STINGS] Allergy Severe SWELLING Verified 02/17/24 15:30 Active Medications: Current Medications Acetaminophen (Acetaminophen 325 Mg Tablet) 650 mg PO Q6H PRN PRN Reason: Pain, Mild (Pain Scale 1-3), fever or headache Apixaban (Apixaban 5 Mg Tablet) 5 mg PO BID JEAN Last Admin: 02/18/24 08:34 Dose: Not Given Calcium Carbonate (Calcium Carbonate 750 Mg Tab.Chew) 750 mg PO Q4H PRN PRN Reason: Heartburn Levetiracetam (Levetiracetam 500 Mg Tablet) 500 mg PO BID [facility] Last Admin: 02/18/24 09:47 Dose: 500 mg Lisinopril (Lisinopril 10 Mg Tablet) 10 mg PO DAILY [facility]; Protocol Last Admin: 02/18/24 08:33 Dose: 10 mg Lorazepam (Lorazepam 2 Mg/Ml Vial) 2 mg IVPUSH Q4H PRN PRN Reason: Seizures Magnesium Hydroxide (Milk Of Magnesia 30 Ml Oral.Susp) 30 ml PO DAILY PRN PRN Reason: Constipation Melatonin (Melatonin 3 Mg Tablet) 6 mg PO BEDTIME PRN PRN Reason: Insomnia Omeprazole (Omeprazole 40 Mg Capsule.Dr) 40 mg PO BID@0630,1630 [facility] Last Admin: 02/18/24 07:47 Dose: 40 mg Sodium Chloride (0.9 % Sodium Chloride Flush 3 Ml Syringe) 3 ml IVFLUSH QSHIFT [facility] Last Admin: 02/18/24 07:47 Dose: 3 ml Home Medications ?Medication ?Instructions ?Recorded ?Confirmed ?Last Taken ?Type folic acid 1 mg tablet 1 mg QAM 02/17/24 Unknown History hydroxyzine HCl 50 mg tablet 50 mg PO Q12H 02/17/24 Unknown History melatonin 3 mg tablet 6 mg PO BEDTIME 02/17/24 Unknown History oxycodone 5 mg tablet 5 mg PO Q6H PRN severe pain 02/17/24 Unknown History pyridoxine (vitamin B6) 50 mg 50 mg DAILY 02/17/24 02/17/24 Unknown History tablet (Vitamin B-6) thiamine HCl (vitamin B1) 100 mg 100 mg QA 02/17/24 Unknown History tablet Physical Exam 2 Vital Signs: Vital Signs: Last Vital Signs Temp 97.8 F 02/18/24 11:07 Pulse 73 02/18/24 11:07 Resp 16 02/18/24 11:07 BP 123/69 02/18/24 11:07 Pulse Ox 96 02/18/24 11:07 O2 Del Method Room Air 02/18/24 11:07 BMI result Body Mass Index 21.2 Neuro: Other: He is alert and awake with normal spontaneity of speech fluency comprehension and affect. Face is symmetrical. Visual wilkinson are full. There is mild [id number] ataxia. He is able to get up and walk around without difficulty. Speech is normal. Deep tendon reflexes are trace with flexor plantars. Results Labs 02/18/24 05:37 02/18/24 05:37 Labs: Short CBC 02/17/24 02/18/24 Range/Units 16:05 05:37 WBC 5.4 7.1 (4.8-10.8) X10*3/uL Hgb 10.2 L 9.1 L (14.0-18.0) g/dl Hct 32.3 L 28.2 L (42.0-52.0) % Plt Count 243 313 D (160-400) X10*3/uL BMP 02/17/24 02/18/24 16:11 05:37 Sodium 139 141 Potassium 4.0 D 3.5 Chloride 106 108 Carbon Dioxide 21 L 25 BUN 15 12 Creatinine 0.90 0.69 Calcium 9.6 D 8.8 D Liver Function 02/17/24 Range/Units 16:11 Total Bilirubin 0.2 (0.0-1.0) mg/dL AST 17 (5-37) U/L ALT 9 (0-40) U/L Alkaline Phosphatase 117 (39-117) U/L Albumin 4.4 (3.5-5.0) g/dL Urine 02/17/24 Range/Units 20:41 Urine Color Yellow Urine Appearance Clear Urine pH 6.0 (5.0-9.0) Ur Specific [place] 1.025 (1.005-1.025) Urine Protein Trace (Neg-Trace) mg/dL Urine Glucose (UA) Negative (Negative) mg/dL Head CT revealed mild diffuse atrophy and a left posterior parietal intracranial extra-axial mixed density lesion adjacent to cerebral cortex with no obvious mass effect, probably a meningioma. Assessment and Plan (1) New onset seizure: Status: Acute 58 years old man with underlying long history of alcoholism and substance abuse including pain medicines probably had a 1st generalized seizure. His overall medical history put him at high risk for seizure disorder but he also as reasonable size left posterior parietal meningioma adjacent to cerebral cortex, which might be contributing. I recommend starting him on levetiracetam 500 mg twice a day, MRI of brain with and without contrast, and EEG, which can be done as an outpatient, to localize epileptic focus, which could help to figure out proper course of treatment for meningioma. He should not drive and he should be informed [facility] regulations about driving. He should also not swim alone or sitting in a soaking tub alone and avoid similar risky activities. Procedures Date of Service Date of Service: 02/18/24
[2024-02-18] MEDS: gadobutroL 7.5 ML VIAL IVPUSH (13:30)
--- NOTE | 2024-02-18 15:42 | PHA.MEDREC ---
Addendum entered by Alberto Coats RPh 02/18/24 16:18: Med rec was reviewed. Just to clarify Noemy's note, pt said he is NO LONGER TAKING eliquis, folic acid, methadone, oxycodone, vitamin b1, sucrafate, vitamin b6 nor nicotine gum/patch. Original Note: Pharmacy Consult ? Medication Reconciliation Pharmacy has completed the medication reconciliation. Patient came in [facility] 03-19-24 @ 22:[address] [facility] called Adrianne from home she didn't seem sure about what medication the patient was taking.So, left to follow up in the morning. Juwan called [facility] to confirm med list. when I came in i was able to talk to the patient. Patient states he is no long on Eliquis 5 mg bid, because he has no more blood clot and gave him bleeding ulcers, Folic acid 1 daily, Methadone 20 mg daily and Oxycodone 5 mg, because he is now taking suboxone 4-1mg daily, Vitamin B1 50mg daily, Sucralfate 1 QID and Vitamin B6 100 mg daily. Patient. Patient also says he is not on Nicotine 2 mg gum, Nicotine 14 mg patch and tylonel 352 mg daily however he did puck up these meds in January from [facility] .
[2024-02-18 15:45] VITALS: BP 124/66; PULSE 69; RESP 16; TEMP 36.6; O2SAT 96
[2024-02-18 20:00] VITALS: BP 122/69; PULSE 63; RESP 14; TEMP 36.2; O2SAT 98
[2024-02-19] VITALS: BP 117/62; PULSE 66; RESP 20; TEMP 36.2; O2SAT 97
[2024-02-19 04:00] VITALS: BP 111/57; PULSE 65; RESP 18; TEMP 36.8; O2SAT 95
[2024-02-19] MEDS: Omeprazole 40 MG CAPSULE.DR PO (06:26)
[2024-02-19 07:03] VITALS: BP 101/55; PULSE 74; RESP 20; TEMP 36.7; O2SAT 99
[2024-02-19] MEDS: levETIRAcetam 500 MG TABLET PO (08:11)
[2024-02-19] MEDS: lisinopriL 10 MG TABLET PO (08:11)
[2024-02-19] MEDS: 0.9 % Sodium Chloride Flush 3 ML SYRINGE IVFLUSH (08:11)
--- NOTE | 2024-02-19 09:46 | MHC.RECOVRN ---
T/W met with pt in 473 following referral for MAT clarification. Chart was reviewed and report was obtained from pt's nurse Imelda. Pt came to ER with seizure activity of unknown origin. He was admitted for further work up with no significant findings. Pt is waiting to be D/C back to [facility] home today Pt has been living in sober home and is receiving sublocade injections for OUD with 4mg strips of suboxone for breakthrough. He receives his injections from [facility]. He used to be on methadone long ago for OUD but is much more pleased with the sublocade and wishes to continue at his current clinic. Ct denied need for any further interventions from [facility]. Report was given to pt's nurse Imelda. [facility] available PRN
--- NOTE | 2024-02-19 12:30 | PC.NURSE ---
Pt down for carotid ultrasound after MRI showed possible occlusion. Upon returning to floor pt states Im leaving no matter what, Im not waiting for the results . Educated pt about importance of waiting for results and risks about leaving AMA. Pt verbalized understanding but still stated he wished to sign AMA form. Educated pt about [place] state law of no driving for 6 months after sz as well as not being left alone in pool/tub. Verbalized understanding. Signed AMA form with this RN and KEENAN Villanueva as witnesss. Escorted to lobby by apurva Willingham
== END 2024-02-19 12:00 | disposition left against medical advice (07) ==
LOC: HO.ED 21:22 → HO.EDOVER 21:51 → HO.IMC 02-18 08:02
PROVIDERS: Registered Nurse Emergency; Admitting Provider Internal Medicine; Emergency Provider Emergency Medicine; PCP Internal Medicine; Visit Provider Internal Medicine
DX: U07.1 COVID-19 (principal); R56.9 Unspecified convulsions; K27.9 Peptic ulcer, site unspecified, unspecified as acute or chronic, without hemorrhage or perforation; F19.20 Other psychoactive substance dependence, uncomplicated; F10.20 Alcohol dependence, uncomplicated; F11.20 Opioid dependence, uncomplicated; I10 Essential (primary) hypertension; I26.99 Other pulmonary embolism without acute cor pulmonale; F39 Unspecified mood [affective] disorder; Z79.01 Long term (current) use of anticoagulants; Z79.899 Other long term (current) drug therapy; Z53.29 Procedure and treatment not carried out because of patient's decision for other reasons
CPT/HCPCS: 0241U; 36415; 70450; 70553; 71046; 72125; 80048; 80053; 80307; 81003; 82140; 83605; 83735; 84484; 85025; 85027; 93005; 93880; 96361; 96365; 96375; 99222; 99285; A9585; J1953; J2060

== ENCOUNTER → 2024-02-17 15:52 | Outpatient (BNV) | payer MEDICAID, SELFPAY | PROVIDERS: Admitting Provider Internal Medicine; Emergency Provider Emergency Medicine; PCP Internal Medicine; Visit Provider Internal Medicine Cardiovascular Disease | DX: R94.31 Abnormal electrocardiogram [ECG] [EKG] (principal) | CPT/HCPCS: 93010 ==

== ENCOUNTER → 2024-02-17 16:47 | Outpatient (BNV) | payer MEDICAID, SELFPAY | PROVIDERS: Emergency Provider Emergency Medicine; PCP Internal Medicine; Visit Provider Internal Medicine | DX: U07.1 COVID-19 (principal); R56.9 Unspecified convulsions | CPT/HCPCS: 99222; 99232; 99239 ==

== ENCOUNTER → 2024-02-17 21:06 | Outpatient (BNV) | payer MEDICAID, SELFPAY | PROVIDERS: Admitting Provider Internal Medicine; Emergency Provider Emergency Medicine; PCP Internal Medicine; Visit Provider Psychiatry & Neurology Neurology | DX: R56.9 Unspecified convulsions (principal) | CPT/HCPCS: 99222 ==

== ENCOUNTER 2024-03-14 09:18 | Outpatient (REF) | payer MEDICAID, SELFPAY ==
--- NOTE | ~2024-03-14 | XR_ITS ---
EXAMINATION: XR HIP, LEFT CLINICAL INFORMATION: Left hip pain for two months. COMPARISON: Radiographs dated 12/24/2023. TECHNIQUE: Two views of the left hip. FINDINGS: Antegrade intramedullary nail in the left femur is unchanged in alignment with intact distal interlocking screw and 2 femoral neck screws proximally. Progressive healing is evident at the intertrochanteric fracture with osseous bridging. Alignment is unchanged. Minimal heterotopic bone formation around the greater and lesser trochanters. Mild osteoarthritis of the left hip with subarticular sclerosis of the acetabular roof. Mild osteoarthritis in the left SI joint. Bones are osteopenic. Osseous union is evident in the midportion of the lower lumbar spine at the site of prior lower lumbar fusion. Mild osteoarthritis in the left knee joint. XR/XR hip LT min 2V IMPRESSION: 1. Progressive healing of the left intertrochanteric fracture status post ORIF. No evidence of hardware failure. 2. Mild osteoarthritis in the left hip, left SI joint, and left knee. Electronically signed by: Garth Soni MD 03/17/2024 11:24 AM EDT
== END 2024-03-14 09:19 | disposition home or self-care (01) ==
LOC: HO.HHCX 09:18
PROVIDERS: Visit Provider Internal Medicine
DX: M25.552 Pain in left hip (principal)
CPT/HCPCS: 73502